=== PATIENT | male | born 1965 | race Caucasian/White ===

== ENCOUNTER → 2020-05-10 11:21 | Outpatient (BNVA) | payer MEDICARE, MEDICAID, SELFPAY | PROVIDERS: PCP Physician Assistant; Visit Provider Psychiatry & Neurology Neurology | DX: Z13.79 Encounter for other screening for genetic and chromosomal anomalies (principal) | CPT/HCPCS: Q3014 ==

== ENCOUNTER → 2020-06-07 09:45 | Outpatient (BNVA) | payer MEDICARE, MEDICAID, SELFPAY | PROVIDERS: PCP Physician Assistant; Visit Provider Psychiatry & Neurology Neurology | DX: Z76.89 Persons encountering health services in other specified circumstances (principal) | CPT/HCPCS: Q3014 ==

== ENCOUNTER → 2020-08-09 09:41 | Outpatient (BNVA) | payer MEDICARE, MEDICAID, SELFPAY | PROVIDERS: PCP Physician Assistant; Visit Provider Psychiatry & Neurology Neurology | DX: Z13.89 Encounter for screening for other disorder (principal) | CPT/HCPCS: Q3014 ==

== ENCOUNTER → 2020-09-13 08:41 | Outpatient (BNVA) | payer MEDICARE, MEDICAID, SELFPAY | PROVIDERS: PCP Physician Assistant; Visit Provider Psychiatry & Neurology Neurology | DX: Z13.89 Encounter for screening for other disorder (principal) | CPT/HCPCS: Q3014 ==

== ENCOUNTER 2023-12-20 19:27 | Inpatient (IN) | payer MEDICARE, MEDICAID, SELFPAY ==
--- NOTE | ~2023-12-20 | XR_ITS ---
EXAMINATION: XR CERVICAL SPINE CLINICAL INFORMATION: Radiculopathy COMPARISON: None available. TECHNIQUE: 6 views of the cervical spine FINDINGS: No acute visible fracture or dislocation. Straightening with slight reversal of the normal cervical curvature. Slight grade 1 anterolisthesis of C2 on C3. Multilevel neural foraminal narrowing. Visualized dens is intact. Lateral masses are symmetric. Multilevel degenerative changes with disc space narrowing, endplate sclerosis, anterior bridging osteophyte formation, and facet arthropathy. Vertebral body has this patient otherwise maintained. Prevertebral soft tissues are mildly prominent greatest at C5-C6, nonspecific. Posterior elements are intact. Paraspinal soft tissues are unremarkable. Visualized portions of the chest are unremarkable. XR/XR cervical spine 4V IMPRESSION: 1. No acute visible fracture or dislocation. 2. Straightening with slight reversal of the normal cervical curvature. 3. Slight grade 1 anterolisthesis of C2 on C3. 4. Multilevel degenerative changes with multilevel neural foraminal narrowing. 5. Prevertebral soft tissues are mildly prominent greatest at C5-C6, nonspecific. Electronically signed by: aKreem Douglas MD 12/26/2023 05:00 PM EDT
--- NOTE | ~2023-12-20 | XR_ITS ---
EXAMINATION: XR CHEST CLINICAL INFORMATION: Rule out CHF. COMPARISON: 01/06/2020 TECHNIQUE: Frontal view of the chest was obtained. FINDINGS: Prominence of the pulmonary vasculature and perihilar interstitium is noted, most consistent with pulmonary venous congestion. Cardiac silhouette is normal. No consolidation, pneumothorax, pleural effusion. Minimal spondylosis midthoracic spine. No acute osseous findings. XR/XR chest 1V IMPRESSION: Pulmonary venous congestion without appreciable pulmonary edema. Electronically signed by: Mynor Rivas MD 12/27/2023 04:52 PM EDT RP
--- NOTE | ~2023-12-20 | US_ITS ---
EXAMINATION: US TRIPLEX LOWER EXTREMITY, BILATERAL CLINICAL INFORMATION: Rule out DVT COMPARISON: None available. TECHNIQUE: Color-flow triplex imaging with spectral analysis and compression Doppler were performed on the bilateral lower extremities. FINDINGS: Respiratory variation, normal compression and augmented flow are noted throughout the bilateral lower extremities. The visualized common femoral vein, superficial femoral vein, profunda femoral vein, popliteal vein, and posterior tibial venous segments show no evidence of deep venous thrombosis bilaterally. Bilateral peroneal veins are not visualized. There is no Yip's cyst. US/US venous duplex LE BI IMPRESSION: No evidence of deep venous thrombosis involving the bilateral lower extremities. Electronically signed by: Lore Dubon MD 12/26/2023 10:08 PM EDT
--- NOTE | ~2023-12-20 | XR_ITS ---
EXAMINATION: XR ABDOMEN KUB CLINICAL INDICATION: Constipation with question of obstruction COMPARISON: None available. TECHNIQUE: AP view of the abdomen. FINDINGS: The bowel gas pattern is unremarkable with no evidence of ileus or obstruction. Mild to moderate stool present in the colon. There is air present in nondilated small bowel. No unusual soft tissue calcifications are noted. Degenerative changes are present throughout the spine and bilateral total hip prostheses are present.. XR/XR KUB IMPRESSION: No evidence of bowel obstruction. Mild to moderate stool present in the colon. Electronically signed by: Pablo Montelongo MD 12/24/2023 06:52 PM EDT
[2023-12-20 19:47] VITALS: BP 146/67; PULSE 82; RESP 18; TEMP 36.6; O2SAT 94; BMI 34.9
--- NOTE | 2023-12-20 20:01 | ED.GENADULT ---
HPI - General Adult General Chief complaint: Psychiatric Symptoms Stated complaint: crisis, SI Time Seen by Provider: 12/20/23 20:01 Source: patient Mode of arrival: ambulatory Limitations: no limitations History of Present Illness ED Provider: Melina Case PA-C HPI narrative: Patient is a 58 year old assigned male at with a history of MDD, COPD, opiate use, CHF, and GERD presenting to the emergency department today with suicidal ideation. Patient states that he has been having thoughts of hurting himself by jumping off of a bridge or overdosing. Patient denies any dizziness, lightheadedness, abdominal pain, nausea, vomiting, fever, chills, blurry vision, double vision, loss of vision, chest pain, difficulty breathing, shortness of breath, back pain, night sweats, pain with urination, increased urinary frequency, increased urinary urgency, blood in his urine or stool, syncope or a near syncopal episode, recent trauma or falls, bowel incontinence, bladder incontinence, or any other complaints at this time. Relieving factors: none Exacerbating factors: none Associated symptoms: denies other symptoms Treatments prior to arrival: none Related Data Home Medications ?Medication ?Instructions ?Recorded ?Confirmed miscellaneous medical supply #1 ea 01/14/20 06/07/20 triamcinolone acetonide 0.5 % 1 applic topical DAILY 01/14/20 06/07/20 topical cream Previous Rx's ?Medication ?Instructions ?Recorded polymyxin B sulfate 10,000 1 drp ophthalmic (eye) QID 10 days 05/12/20 unit-trimethoprim 1 mg/mL eye #10 mL drops (Polytrim) valacyclovir 1 gram tablet 1,000 mg PO BID 7 days #14 tabs 05/12/20 (Valtrex) baclofen 10 mg tablet 10 mg PO TID 30 days #90 tabs 12/29/20 clonidine HCl 0.1 mg tablet 0.1 mg PO BID 30 days #60 tabs 12/29/20 omeprazole 20 mg capsule,delayed 20 mg PO DAILY 30 days #30 caps 12/29/20 release albuterol sulfate 90 mcg/actuation 2 puff inhalation Q6H PRN Wheezing 03/06/22 aerosol inhaler (Ventolin HFA) 30 days #8.5 grams gabapentin 800 mg tablet 800 mg PO TID #90 tabs 11/12/23 Allergies Allergy/AdvReac Type Severity Reaction Status Date / Time oxycodone AdvReac Unknown GI upset Verified 12/20/23 19:48 Review of Systems Constitutional: Constitutional: Reports no additional constitutional complaints, Denies chills, Denies fever(s) and Denies night sweats Eyes: Eyes: Reports no additional eye complaints, Denies blurry vision, Denies change in vision, Denies diplopia, Denies eye discharge, Denies loss of vision and Denies eye pain ENT: Denies dizziness Cardiovascular: Cardiovascular: Reports no additional cardiovascular complaints, Denies chest pain, Denies lightheadedness, Denies Loss of Consciousness and Denies dyspnea Respiratory: Respiratory: Reports no additional respiratory complaints and Denies dyspnea Gastrointestinal: Gastrointestinal: Reports no additional gastrointestinal complaints, Denies abdominal pain, Denies melena, Denies hematochezia, Denies change in bowel habits and Denies change in stool character Genitourinary: Genitourinary: Reports no additional male genitourinary complaints, Denies hematuria, Denies oliguria, Denies difficulty urinating, Denies dysuria, Denies urinary frequency, Denies urinary hesitancy, Denies urinary incontinence and Denies urinary urgency Musculoskeletal: Musculoskeletal: Reports no additional musculoskeletal complaints, Denies numbness and Denies tingling Neurologic: Denies dizziness, Denies loss of vision, Denies numbness and Denies tingling Psychiatric: Psychiatric: Reports no additional psychiatric complaints, Denies homicidal ideation and Reports suicidal ideation Endocrine: Endocrine: Reports no additional endocrine complaints Hematologic/Lymphatic: Hematologic/Lymphatic: Reports no additional hematologic/lymphatic complaints Allergic/Immunologic: Allergic/Immunologic: Reports no additional allergic/immunologic complaints [facility] Past Medical History Attestation statement: The following information was validated with the patient. Source: old records reviewed and nursing notes reviewed Medical History Varicose veins of right lower extremity Peripheral vascular disease GERD (gastroesophageal reflux disease) History of pernicious anemia Hx of acute respiratory failure Edema Back pain Arthritis History of DVT of lower extremity Depression ANA treated with BiPAP Right-sided heart failure Surgical History History of incisional hernia repair Hx of esophagogastroduodenoscopy Hx of colonoscopy History of total right knee replacement S/P right knee arthroscopy Hx of tracheostomy Hx of total hip arthroplasty History of colostomy reversal History of colon resection H/O gastric bypass Family History Family History Father Displacement of central venous catheter (CVC) Mother Unknown family medical history Social History Social History Cigarette Packs Per Day: 1 Cigarettes Per Day: 20.0 Second Hand Smoke Exposure: No Advance Directives: No Advance Directives Information Provided: No Physical Exam ED Vital Signs: Vital Signs - 24 hr 12/20/23 19:47 Temperature 97.8 F Pulse Rate 82 Respiratory Rate 18 Blood Pressure 146/67 H Pulse Oximetry 94 Oxygen Delivery Method Room Air BMI result Body Mass Index 34.9 Const General: cooperative, no acute distress, alert and awake Nutritional Appearance: well nourished Orientation/consciousness: patient oriented x3 Limitations: no limitations HENMT Head: Yes normal to inspection and Yes atraumatic Ears: hearing grossly normal bilaterally and external ears normal General nose exam: Normal external nose present, no nasal discharge noted and no epistaxis Face and sinus: Yes normal facial exam, No abrasion and No laceration Mouth: Normal oral and palatal mucosa present, no drooling and no muffled voice Eyes General: appearance normal, both eyes and all related structures Periorbital: periorbital findings normal Eyelids: Yes eyelids normal Conjunctivae: conjunctivae normal Pupils: Equal, round and reactive pupils present EOM: EOMs intact bilaterally Neck Neck: Yes normal visual inspection, Yes full ROM and Yes no lymphadenopathy Chest Chest palpation & inspection: normal inspection of the chest Resp Effort & Inspection: normal respiratory effort and able to speak in complete sentences GI Inspection: Yes normal to inspection Neuro General: patient oriented x3 and moves all extremities Cranial nerves: Yes Equal, round and reactive pupils present Cognition (Neuro): normal cognition Extrem General: Yes normal to inspection, Yes full ROM and Yes capillary refill normal Psych Appearance: grossly normal Mental Status: mental status grossly normal Affect: Sad affect present Attitude: Guarded attititude/behavior present Thought content: Suicidality present Medical Decision Making Medical Decision Making MDM Narrative: Patient is a 58 year old assigned male at with a history of MDD, COPD, opiate use, CHF, and GERD presenting to the emergency department today with suicidal ideation. Patient's physical exam was as noted in the physical exam portion of this note. Patient's blood work was unremarkable. Patient's urine showed no acute process. Patient's disposition pending CARE team evaluation. Differential Diagnosis Differential Diagnoses: The differential diagnosis associated with the presentation includes Suicidal ideation Admission/Observation Consideration of admission/observation: Escalation of care including admission/observation considered Patient's disposition will be determined after CARE evaluation. Lab Data [facility] Lab Attestation statement: I reviewed the patient's lab results. My interpretation of these results are in the MDM Rationale portion of this note. 12/20/23 20:11 12/20/23 20:11 Labs: Lab Results 12/20/23 Range/Units 20:11 WBC 9.6 (4.8-10.8) X10*3/uL RBC 5.31 (4.60-5.80) X10*6/uL Hgb 11.3 L (14.0-18.0) g/dl Hct 36.1 L (42.0-52.0) % MCV 68.0 L (80.0-98.0) fL MCH 21.3 L (27.0-33.0) pg MCHC 31.3 (31.0-36.0) g/dl RDW 19.8 H (11.0-16.0) % Plt Count 291 (160-400) X10*3/uL MPV 10.0 (9.4-12.4) fL Immature Gran % (Auto) 0.2 (0.0-0.4) % Neut % (Auto) 77.8 H (45-73) % Lymph % (Auto) 14.0 L (20-40) % [place] % (Auto) 6.3 (2-11) % Eos % (Auto) 1.0 (0-4) % Baso % (Auto) 0.7 (0-2) % Lymph # (Auto) 1.3 (1.2-4.9) X10*3/uL [place] # (Auto) 0.6 (0.1-1.2) X10*3/uL Eos # (Auto) 0.1 (0.0-0.4) X10*3/uL Baso # (Auto) 0.1 (0.0-0.2) X10*3/uL Abs Immat Gran (auto) 0.02 (0.00-0.03) X10*3/uL Absolute Neuts (auto) 7.4 (2.0-8.3) x10*3/uL Absolute Nucleated RBC 0.000 (0.0-0.012) X10*3/uL Nucleated RBC % (auto) 0.0 (0.0-0.2) /100WBC Sodium 141 (135-145) mmol/L Potassium 3.8 (3.3-5.1) mmol/L Chloride 107 (96-108) mmol/L Carbon Dioxide 25 (22-29) mmol/L Anion Gap 13 (12-20) BUN 8 L (9-16) mg/dL Creatinine 0.90 (0.5-1.4) mg/dL Estim Creat Clear Calc 112.5 Estimated GFR > 60 Random Glucose 88 (60-115) mg/dL Calcium 9.5 (8.4-10.2) mg/dL Total Bilirubin 0.5 (0.0-1.0) mg/dL AST 20 (5-37) U/L ALT 13 (0-40) U/L Alkaline Phosphatase 78 (39-117) U/L Total Protein 7.4 (6.5-8.0) g/dL Albumin 4.3 (3.5-5.0) g/dL Urine Color Yellow Urine Appearance Clear Urine pH 6.0 (5.0-9.0) Ur Specific [place] 1.010 (1.005-1.025) Urine Protein 30 (1+) H (Neg-Trace) mg/dL Urine Glucose (UA) Negative (Negative) mg/dL Urine Ketones Negative (Negative) mg/dL Urine Blood Negative (Negative) Urine Nitrite Negative (Negative) Ur Leukocyte Esterase Trace H (Negative) Urine RBC 0-2 (0-2) /HPF Urine WBC 0-5 (0-5) /HPF Ur Squamous Epith Cells 0-2 (0-2) /HPF Urine Bacteria None Seen (None Seen) Hyaline Casts 3-5 (0-2) /LPF Urine Opiates Screen Not Detected (Not Detect) Ur Buprenorphine Scrn Not Detected (Not Detect) ng/mL Ur Oxycodone Screen Not Detected (Not Detect) ng/mL Urine Methadone Screen Not Detected (Not Detect) ng/mL Urine Fentanyl Screen Not Detected (Not Detect) Ur Barbiturates Screen Not Detected (Not Detect) Ur Phencyclidine Scrn Not Detected (Not Detect) Ur Amphetamines Screen Not Detected (Not Detect) U Benzodiazepines Scrn Not Detected (Not Detect) Urine Cocaine Screen POSITIVE H (Not Detect) U Marijuana (THC) Screen Not Detected (Not Detect) Ethyl Alcohol < 10 mg/dL Discharge Plan Discharge Clinical Impression: Suicidal ideation Patient Disposition: Still a Patient Prescriptions: No Action omeprazole 20 mg capsule,delayed release(DR/EC) 20 mg PO DAILY 30 Days Qty: 30 3RF clonidine HCl 0.1 mg tablet 0.1 mg PO BID 30 Days Qty: 60 3RF baclofen 10 mg tablet 10 mg PO TID 30 Days Qty: 90 3RF albuterol sulfate [Ventolin HFA] 90 mcg/actuation HFA aerosol inhaler 2 puff inhalation Q6H PRN (Reason: Wheezing) 30 Days Qty: 8.5 6RF gabapentin 800 mg tablet 800 mg PO TID Qty: 90 3RF triamcinolone acetonide 0.5 % cream 1 applic topical DAILY (DME) miscellaneous medical supply Misc See Rx Instructions .ROUTE .MEDSUPPLY Qty: 1 Rx Instructions: As directed valacyclovir [Valtrex] 1 gram tablet 1,000 mg PO BID 7 Days Qty: 14 0RF polymyxin B sulf-trimethoprim [Polytrim] 10,000 unit- 1 mg/mL drops 1 drp ophthalmic (eye) QID 10 Days Qty: 10 0RF Rx Instructions: while awake; do not exceed 6 doses in 24 hours Print Language: Danish
[2023-12-20 20:21] LABS: MANUAL DIFF FLAG NO
[2023-12-20 20:22] LABS: Basophils Absolute Auto 0.1 X10*3/uL (0.0-0.2); Basophils Percent Auto 0.7 % (0-2); Eosinophils Absolute Auto 0.1 X10*3/uL (0.0-0.4); Hematocrit 36.1 % (42.0-52.0); Hemoglobin 11.3 g/dl (14.0-18.0); Imm Gran Abs Auto 0.02 X10*3/uL (0.00-0.03); Imm Gran Pct Auto 0.2 % (0.0-0.4); Lymphocytes Absolute Auto 1.3 X10*3/uL (1.2-4.9); Mean Corpuscular HGB Conc 31.3 g/dl (31.0-36.0); Mean Corpuscular Hemoglobin 21.3 pg (27.0-33.0); Monocytes Absolute Auto 0.6 X10*3/uL (0.1-1.2); Monocytes Percent Auto 6.3 % (2-11); Neutrophils Absolute Auto 7.4 x10*3/uL (2.0-8.3); Neutrophils Percent Auto 77.8 % (45-73); Platelet Count 291 X10*3/uL (160-400); Red Blood Count 5.31 X10*6/uL (4.60-5.80); Red Cell Distribution Width 19.8 % (11.0-16.0); White Blood Count 9.6 X10*3/uL (4.8-10.8)
[2023-12-20 20:23] LABS: Appearance Urine Clear; Color Urine Yellow; Glucose Urine UA Negative (Negative); Leukocyte Esterase Urine Trace (Negative); Nitrite Urine Negative (Negative); UMIC TRIGGER UA YES; Urine Blood Negative (Negative); Urine Ketones Negative (Negative); Urine Protein 30 (1+) mg/dL (Neg-Trace)
[2023-12-20 20:29] LABS: Bacteria Urine None Seen (None Seen); RBC Urine 0-2 /HPF (0-2); Squamous Epithelial Cell Urine 0-2 /HPF (0-2); WBC Urine 0-5 /HPF (0-5)
[2023-12-20 20:36] LABS: Amphetamine Screen Urine Not Detected (Not Detect); Barbiturates, Urine Not Detected (Not Detect); Benzodiazepines Screen Urine Not Detected (Not Detect); Buprenorphine Scr Not Detected (Not Detect); Cannabinoid Screen Urine Not Detected (Not Detect); Cocaine Screen Urine POSITIVE (Not Detect); Fentanyl, urine Not Detected (Not Detect); Methadone Screen, Urine Not Detected (Not Detect); Opiate Screen Urine Not Detected (Not Detect); Oxycodone Screen Urine Not Detected (Not Detect); Phencyclidine Screen Urine Not Detected (Not Detect)
[2023-12-20 20:38] LABS: Alanine Aminotransferase 13 U/L (0-40); Albumin Level 4.3 g/dL (3.5-5.0); Alkaline Phosphatase 78 U/L (39-117); Anion Gap 13 (12-20); Aspartate Amino Transferase 20 U/L (5-37); Bilirubin Total 0.5 mg/dL (0.0-1.0); Blood Urea Nitrogen 8 mg/dL (9-16); Calcium 9.5 mg/dL (8.4-10.2); Carbon Dioxide 25 mmol/L (22-29); Chloride 107 mmol/L (96-108); Creatinine Clr Calc Pharmacy 112.5; Estimated Glomerular Filt Rate > 60; Ethanol < 10 mg/dL; Glucose Random 88 mg/dL (60-115); Potassium 3.8 mmol/L (3.3-5.1); Sodium 141 mmol/L (135-145); Total Protein 7.4 g/dL (6.5-8.0)
--- NOTE | 2023-12-20 21:48 | MHC.EDTECH ---
PT HAS 5 BAGS OF BELONGINGS IN POD LAUNDRY CLOSET. INCLUDING 2 SHOPPING BAGS, 2 PATIENT BELONGING BAGS, 1 LARGE CAMO SUITCASE.
[2023-12-20 23:45] VITALS: BP 130/73; PULSE 69; RESP 16; TEMP 36.4; O2SAT 98
[2023-12-21 00:56] VITALS: BMI 33.8
--- NOTE | 2023-12-21 04:09 | PC.ADMIT ---
Pt is a 58yo male, admitted from ED, [facility] on a CV for treatment of SI, MDD. He presented to ER with SI having a plan to jump off a bridge and command auditory hallucinations telling him to harm himself. Pt stated I am sick of life and sick of living the way I am . He stated that he is using substances to cope with his mental health and getting kicked out of the place they were crashing just put him over the edge. He reported being homeless since the end of October and being on the street increased command AH. On unit admission, Pt was calm and cooperative, mood is depressed and affect is flat. He denies SI/HI/AV/VH, states that I just want to get help and then get into a substance program. Pt has medical HX of COPD, CHF and GERD. Urine TOX is positive to cocaine. He filled/signed some releases of information forms, menu, statement of understanding regarding valuables but did not fill my contact lists. Treatment plan and safety tools initiated but not signed. Pt is on CIWA Q4 for alcohol withdrawal risk and 5 minutes safety check/observation.
[2023-12-21 07:35] VITALS: BP 135/63; PULSE 58; RESP 14; TEMP 36.8; O2SAT 95
[2023-12-21 08:02] LABS: Alanine Aminotransferase 13 U/L (0-40); Albumin Level 3.4 g/dL (3.5-5.0); Alkaline Phosphatase 67 U/L (39-117); Anion Gap 11 (12-20); Aspartate Amino Transferase 20 U/L (5-37); Bilirubin Total 0.3 mg/dL (0.0-1.0); Blood Urea Nitrogen 10 mg/dL (9-16); Calcium 8.8 mg/dL (8.4-10.2); Carbon Dioxide 24 mmol/L (22-29); Chloride 109 mmol/L (96-108); Cholesterol 103 mg/dL (<200); Creatinine Clr Calc Pharmacy 134.9; Estimated Glomerular Filt Rate > 60; Glucose Fasting 89 mg/dL (60-99); HDL Cholesterol 39 mg/dL (>40); LDL Cholesterol Calculated 54 mg/dL (<100); Potassium 4.1 mmol/L (3.3-5.1); Sodium 140 mmol/L (135-145); Triglycerides 52 mg/dL (<150)
--- NOTE | 2023-12-21 08:06 | P.HPPS_ITS ---
HPI Date of Service: 12/21/23 Chief Complaint: SI Sources of Information: patient interviewed, chart reviewed and crisis/core team assessment reviewed HPI Subjective Notes: Conditional Voluntary Healthcare Proxy: No Guardianship: No Medical Problems Affecting Mental Status: No Narrative: met patient. Discussed nursing. Has been in room, largely isolative. Patient reports being depressed, suicidal and voices. Sleep energy appetite disturbed. non command voices. Having thoughts of jumping bridge. Recently relapsed cocaine. Has been housed [facility] since October. Reports being very motivated substance rehab services. It also been drinking 2 to 6 beers a day inpatient. Longest sobriety 1 year 4 years ago reports this also in the context substance rehab supports reports his main support is his girlfriend of a few months, who also is struggling with substance use disorder also seeking mental health substance rehab services. Past Psychiatric History: Does not have psychiatric services. Last attended [facility] 04/03/2023. Last inpatient episode June of this year with similar circumstances. Reports not psychotic hallucinating is recently substances. History of suicidal ideation. No history of suicide attempts. Can not remember Medications from the past. Medical Evaluation Reviewed: Yes [facility] Medical History Varicose veins of right lower extremity Peripheral vascular disease GERD (gastroesophageal reflux disease) History of pernicious anemia Hx of acute respiratory failure Edema Back pain Arthritis History of DVT of lower extremity Depression ANA treated with BiPAP Right-sided heart failure Surgical History History of incisional hernia repair Hx of esophagogastroduodenoscopy Hx of colonoscopy History of total right knee replacement S/P right knee arthroscopy Hx of tracheostomy Hx of total hip arthroplasty History of colostomy reversal History of colon resection H/O gastric bypass Social History: unhoused Since. Girlfriend of a few months. Also struggling with substance use disorder seeking treatment. No children. No legal issues. high School grad. 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 Cocaine use- sniffs or smokes. Longest sobriety was 1 year years ago when he had rehab services supports Diagnostics Vital Signs (24Hr): Vital Signs - 24 hr 12/20/23 19:47 12/20/23 23:45 Temperature 97.8 F 97.6 F Pulse Rate 82 69 Respiratory Rate 18 16 Blood Pressure 146/67 H 130/73 Pulse Oximetry 94 98 Oxygen Delivery Method Room Air Room Air BMI result Body Mass Index 33.8 Labs 12/20/23 20:11 12/21/23 07:37 Labs: Laboratory Results - last 48 hr 12/20/23 12/21/23 20:11 07:37 WBC 9.6 RBC 5.31 Hgb 11.3 L Hct 36.1 L MCV 68.0 L MCH 21.3 L MCHC 31.3 RDW 19.8 H Plt Count 291 MPV 10.0 Immature Gran % (Auto) 0.2 Neut % (Auto) 77.8 H Lymph % (Auto) 14.0 L [place] % (Auto) 6.3 Eos % (Auto) 1.0 Baso % (Auto) 0.7 Lymph # (Auto) 1.3 [place] # (Auto) 0.6 Eos # (Auto) 0.1 Baso # (Auto) 0.1 Abs Immat Gran (auto) 0.02 Absolute Neuts (auto) 7.4 Absolute Nucleated RBC 0.000 Nucleated RBC % (auto) 0.0 Sodium 141 140 Potassium 3.8 4.1 Chloride 107 109 H Carbon Dioxide 25 24 Anion Gap 13 11 L BUN 8 L 10 Creatinine 0.90 0.74 Estim Creat Clear Calc 112.5 134.9 Estimated GFR > 60 > 60 Random Glucose 88 Fasting Glucose 89 Calcium 9.5 8.8 D Total Bilirubin 0.5 0.3 AST 20 20 ALT 13 13 Alkaline Phosphatase 78 67 Total Protein 7.4 6.0 L Albumin 4.3 3.4 L Triglycerides 52 Cholesterol 103 LDL Cholesterol, Calc 54 HDL Cholesterol 39 L Urine Color Yellow Urine Appearance Clear Urine pH 6.0 Ur Specific [place] 1.010 Urine Protein 30 (1+) H Urine Glucose (UA) Negative Urine Ketones Negative Urine Blood Negative Urine Nitrite Negative Ur Leukocyte Esterase Trace H Urine RBC 0-2 Urine WBC 0-5 Ur Squamous Epith Cells 0-2 Urine Bacteria None Seen Hyaline Casts 3-5 Urine Opiates Screen Not Detected Ur Buprenorphine Scrn Not Detected Ur Oxycodone Screen Not Detected Urine Methadone Screen Not Detected Urine Fentanyl Screen Not Detected Ur Barbiturates Screen Not Detected Ur Phencyclidine Scrn Not Detected Ur Amphetamines Screen Not Detected U Benzodiazepines Scrn Not Detected Urine Cocaine Screen POSITIVE H U Marijuana (THC) Screen Not Detected Ethyl Alcohol < 10 Meds/Allergies Meds Home Medications ?Medication ?Instructions ?Recorded ?Confirmed ?Type miscellaneous medical supply #1 ea 01/14/20 06/07/20 History Allergies Allergies Allergy/AdvReac Type Severity Reaction Status Date / Time oxycodone AdvReac Unknown GI upset Verified 12/20/23 19:48 Mental Status Exam Mental Status Exam Narrative: pleasant. Age. Hospital clothing. Her self-care. Organized. Depressed. Endorses no plans or intent. No current hallucinations no paranoia. Feels safe. No HI. Insight judgment fair Assessment & Plan Assessment & Plan (1) MDD (major depressive disorder): Status: Acute Qualifiers: Major depression recurrence: single episode Active/Remission status: c urrently active Major depression episode severity: moderate Qualified Code(s): F32.1 - Major depressive disorder, single episode, moderate Code(s): F32.9 - Major depressive disorder, single episode, unspecified (2) Polysubstance use disorder: Status: Acute Code(s): F19.90 - Other psychoactive substance use, unspecified, uncomplicated Plan Presents with MDD amd polysubstance use disorder- alcohol and cocaine in context of unhoused, no services. Wants to start meds and substance rehab services. No indication for antipsychotics as hallucinations less intense/resolved and are substance related, so resolving. Will start zoloft and trazodone and CIWA Patient educated on: diagnosis, medication risk/benefits and substance abuse Informed Consent: understands Reason for continued inpatient stay Substantial Risk for: harm to self Statement Statement: I have reviewed the history and physical and performed a pertinent examination on my patient. No changes have occurred unless specified. If the History and Physical was not performed prior to admission, the Hospitalist's service will be consulted for completing the admission physical. Time Spent With Patient Time: Total time managing care of this patient today ____ minutes.
[2023-12-21] MEDS: Gabapentin 400 MG CAPSULE 800 MG PO ×3 (09:45→20:04)
[2023-12-21] MEDS: Acetaminophen 325 MG TABLET 650 MG PO (09:55)
[2023-12-21] MEDS: hydrOXYzine HCL 25 MG TABLET PO (09:55)
[2023-12-21] MEDS: Flu Vacc TS2024-25(6mos up)/PF 0.5 ML SYRINGE IM (10:38)
[2023-12-21] MEDS: Sertraline HCL 50 MG TABLET PO (14:18)
[2023-12-21 20:00] VITALS: BP 125/60; PULSE 80; RESP 18; TEMP 36.4; O2SAT 94
[2023-12-21] MEDS: traZODone HCL 50 MG TABLET PO (20:04)
[2023-12-22 08:00] VITALS: BP 114/57; PULSE 57; RESP 18; TEMP 36.4; O2SAT 94
--- NOTE | 2023-12-22 08:10 | HO.PSYCHPN ---
Subjective Subjective Date of Service: 12/22/23 Reason For Visit: SI Medical Problems Affecting Mental Status: No Interim History: met with patient. Discussed with nursing. Overall reports mood is better. Sleep difficult in the context of environment at bed. Denies hallucinations or suicidal thoughts today. We did discuss simethicone in the context of patient's roommate making patient aware. Medication Compliance: Yes Side effects from medications: No Attending Groups: Intermittent Review of Systems Acute medical concerns: No Review of Systems Review of Systems Yes all other systems are reviewed and are negative Mental Status Exam Mental Status Exam Narrative: pleasant. Age. Hospital clothing. Fair self-care. Organized. less depressed. denies SI. No current hallucinations no paranoia. Feels safe. No HI. Insight judgment fair Diagnostics Vital Signs (24Hr): Vital Signs - 24 hr 12/21/23 20:00 Temperature 97.5 F Pulse Rate 80 Respiratory Rate 18 Blood Pressure 125/60 Pulse Oximetry 94 Oxygen Delivery Method Room Air BMI result Body Mass Index 33.8 Labs 12/20/23 20:11 12/21/23 07:37 Labs: Laboratory Results - last 48 hr 12/20/23 12/21/23 20:11 07:37 WBC 9.6 RBC 5.31 Hgb 11.3 L Hct 36.1 L MCV 68.0 L MCH 21.3 L MCHC 31.3 RDW 19.8 H Plt Count 291 MPV 10.0 Immature Gran % (Auto) 0.2 Neut % (Auto) 77.8 H Lymph % (Auto) 14.0 L [place] % (Auto) 6.3 Eos % (Auto) 1.0 Baso % (Auto) 0.7 Lymph # (Auto) 1.3 [place] # (Auto) 0.6 Eos # (Auto) 0.1 Baso # (Auto) 0.1 Abs Immat Gran (auto) 0.02 Absolute Neuts (auto) 7.4 Absolute Nucleated RBC 0.000 Nucleated RBC % (auto) 0.0 Sodium 141 140 Potassium 3.8 4.1 Chloride 107 109 H Carbon Dioxide 25 24 Anion Gap 13 11 L BUN 8 L 10 Creatinine 0.90 0.74 Estim Creat Clear Calc 112.5 134.9 Estimated GFR > 60 > 60 Random Glucose 88 Fasting Glucose 89 Calcium 9.5 8.8 D Total Bilirubin 0.5 0.3 AST 20 20 ALT 13 13 Alkaline Phosphatase 78 67 Total Protein 7.4 6.0 L Albumin 4.3 3.4 L Triglycerides 52 Cholesterol 103 LDL Cholesterol, Calc 54 HDL Cholesterol 39 L Urine Color Yellow Urine Appearance Clear Urine pH 6.0 Ur Specific Edgar 1.010 Urine Protein 30 (1+) H Urine Glucose (UA) Negative Urine Ketones Negative Urine Blood Negative Urine Nitrite Negative Ur Leukocyte Esterase Trace H Urine RBC 0-2 Urine WBC 0-5 Ur Squamous Epith Cells 0-2 Urine Bacteria None Seen Hyaline Casts 3-5 Urine Opiates Screen Not Detected Ur Buprenorphine Scrn Not Detected Ur Oxycodone Screen Not Detected Urine Methadone Screen Not Detected Urine Fentanyl Screen Not Detected Ur Barbiturates Screen Not Detected Ur Phencyclidine Scrn Not Detected Ur Amphetamines Screen Not Detected U Benzodiazepines Scrn Not Detected Urine Cocaine Screen POSITIVE H U Marijuana (THC) Screen Not Detected Ethyl Alcohol < 10 Medications Medications Current Medications Al Hydroxide/Mg Hydroxide (Magnesium Hydrox/Alum Hydrox 30 Ml Oral.Susp) 30 ml PO Q6H PRN PRN Reason: Heartburn/Nausea Gabapentin (Gabapentin 400 Mg Capsule) 800 mg PO TID [facility] Last Admin: 12/21/23 20:04 Dose: 800 mg Hydroxyzine HCl (Hydroxyzine Hcl 25 Mg Tablet) 25 mg PO Q6H PRN PRN Reason: Anxiety Last Admin: 12/21/23 09:55 Dose: 25 mg Ibuprofen (Ibuprofen 600 Mg Tablet) 600 mg PO Q6H PRN PRN Reason: mild to moderate pain Lorazepam (Lorazepam 0.5 Mg Tablet) 0.5 mg PO Q6H PRN PRN Reason: Alcohol Withdrawal Lorazepam (Lorazepam 1 Mg Tablet) 1 mg PO Q6H PRN PRN Reason: Alcohol Withdrawal Lorazepam (Lorazepam 1 Mg Tablet) 2 mg PO Q6H PRN PRN Reason: Alcohol Withdrawal Magnesium Hydroxide (Milk Of Magnesia 30 Ml Oral.Susp) 30 ml PO DAILY PRN PRN Reason: Constipation Nicotine Polacrilex (Nicotine Polacrilex 2 Mg Gum) 4 mg BUCCAL Q2H PRN PRN Reason: Nicotine Cravings Sertraline HCl (Sertraline Hcl 50 Mg Tablet) 50 mg PO DAILY [facility] Last Admin: 12/21/23 14:18 Dose: 50 mg Trazodone HCl (Trazodone Hcl 50 Mg Tablet) 50 mg PO BEDTIME MRX1 PRN PRN Reason: Insomnia Trazodone HCl (Trazodone Hcl 50 Mg Tablet) 50 mg PO BEDTIME [facility] Last Admin: 12/21/23 20:04 Dose: 50 mg Allergies Allergies Allergy/AdvReac Type Severity Reaction Status Date / Time oxycodone AdvReac Unknown GI upset Verified 12/20/23 19:48 Assessment & Plan Assessment & Plan (1) MDD (major depressive disorder): Qualifiers: Active/Remission status: currently active Major depression episode severity: moderate Major depression recurrence: single episode Qualified Code(s): F32.1 - Major depressive disorder, single episode, moderate Status: Acute Code(s): F32.9 - Major depressive disorder, single episode, unspecified (2) Polysubstance use disorder: Status: Acute Code(s): F19.90 - Other psychoactive substance use, unspecified, uncomplicated Plan Presents with MDD amd polysubstance use disorder- alcohol and cocaine in context of unhoused, no services. Wants to start meds and substance rehab services. No indication for antipsychotics as hallucinations less intense/resolved and are substance related, so resolving. Will start zoloft and trazodone and CIWA 12/22/2023: Overall no changes. Reason for continued inpatient stay Substantial Risk for: harm to self Time Spent With Patient Time: Total time managing care of this patient today ____ minutes.
[2023-12-22] MEDS: Gabapentin 400 MG CAPSULE 800 MG PO ×3 (09:03→20:41)
[2023-12-22] MEDS: Ibuprofen 600 MG TABLET PO (09:04)
[2023-12-22] MEDS: Sertraline HCL 50 MG TABLET PO (09:04)
[2023-12-22] MEDS: Simethicone 80 MG TAB.CHEW PO ×3 (11:36→20:41)
[2023-12-22] MEDS: Lidocaine 4 % Patch ADH..PATCH 1 PATCH TRANSDERMA (13:18)
[2023-12-22] MEDS: Ibuprofen 800 MG TABLET PO (15:37)
[2023-12-22 20:00] VITALS: BP 129/57; PULSE 70; TEMP 36.4; O2SAT 96
[2023-12-22] MEDS: traZODone HCL 50 MG TABLET PO ×2 (20:42→23:42)
[2023-12-22] MEDS: hydrOXYzine HCL 25 MG TABLET PO (20:53)
[2023-12-23 07:50] VITALS: BP 133/70; PULSE 54; RESP 12; TEMP 36.6; O2SAT 92
[2023-12-23] MEDS: Sertraline HCL 50 MG TABLET PO (08:45)
[2023-12-23] MEDS: Simethicone 80 MG TAB.CHEW PO ×4 (08:45→20:05)
[2023-12-23] MEDS: Gabapentin 400 MG CAPSULE 800 MG PO ×3 (08:45→20:07)
--- NOTE | 2023-12-23 10:27 | P.PNPSI_ITS ---
Subjective Subjective Date of Service: 12/23/23 Reason For Visit: SI Subjective Notes: Conditional Voluntary Interim History: Pt slept about 6hrs with some difficulty falling asleep and needing additional trazodone. Pt reports feeling better in terms of mood. He reports being concern about recently losing housing. He reports GF also struggling with addiction and she is currently on the 5th floor psych unit. He reports he hopes to go to same [facility] program with GF. 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 chronic microcytic anemia- will check iron profile. He denies VH/AH. Passive SI, no plan or intent. Diagnostics Vital Signs (24Hr): Vital Signs - 24 hr 12/22/23 20:00 12/23/23 07:50 Temperature 97.5 F 97.9 F Pulse Rate 70 54 Respiratory Rate 12 Blood Pressure 129/57 L 133/70 Pulse Oximetry 96 92 Oxygen Delivery Method Room Air Room Air BMI result Body Mass Index 33.8 Labs 12/20/23 20:11 12/21/23 07:37 Medications Medications Current Medications Al Hydroxide/Mg Hydroxide (Magnesium Hydrox/Alum Hydrox 30 Ml Oral.Susp) 30 ml PO Q6H PRN PRN Reason: Heartburn/Nausea Gabapentin (Gabapentin 400 Mg Capsule) 800 mg PO TID [facility] Last Admin: 12/23/23 08:45 Dose: 800 mg Hydroxyzine HCl (Hydroxyzine Hcl 25 Mg Tablet) 25 mg PO Q6H PRN PRN Reason: Anxiety Last Admin: 12/22/23 20:53 Dose: 25 mg Ibuprofen (Ibuprofen 800 Mg Tablet) 800 mg PO Q8H PRN PRN Reason: mild to moderate pain (1-6) Last Admin: 12/22/23 15:37 Dose: 800 mg Lidocaine (Lidocaine 4 % Patch Adh..Patch) 1 patch TRANSDERMA DAILY [facility]; Protocol Last Admin: 12/23/23 08:52 Dose: Not Given Lorazepam (Lorazepam 0.5 Mg Tablet) 0.5 mg PO Q6H PRN PRN Reason: Alcohol Withdrawal Lorazepam (Lorazepam 1 Mg Tablet) 1 mg PO Q6H PRN PRN Reason: Alcohol Withdrawal Lorazepam (Lorazepam 1 Mg Tablet) 2 mg PO Q6H PRN PRN Reason: Alcohol Withdrawal Magnesium Hydroxide (Milk Of Magnesia 30 Ml Oral.Susp) 30 ml PO DAILY PRN PRN Reason: Constipation Nicotine Polacrilex (Nicotine Polacrilex 2 Mg Gum) 4 mg BUCCAL Q2H PRN PRN Reason: Nicotine Cravings Sertraline HCl (Sertraline Hcl 50 Mg Tablet) 50 mg PO DAILY [facility] Last Admin: 12/23/23 08:45 Dose: 50 mg Simethicone (Simethicone 80 Mg Tab.Chew) 80 mg PO QIDWMHS [facility] Last Admin: 12/23/23 08:45 Dose: 80 mg Trazodone HCl (Trazodone Hcl 50 Mg Tablet) 50 mg PO BEDTIME MRX1 PRN PRN Reason: Insomnia Last Admin: 12/22/23 23:42 Dose: 50 mg Trazodone HCl (Trazodone Hcl 50 Mg Tablet) 50 mg PO BEDTIME [facility] Last Admin: 12/22/23 20:42 Dose: 50 mg Allergies Allergies Allergy/AdvReac Type Severity Reaction Status Date / Time oxycodone AdvReac Unknown GI upset Verified 12/20/23 19:48 Assessment & Plan Assessment & Plan (1) MDD (major depressive disorder): Qualifiers: Active/Remission status: currently active Major depression episode severity: moderate Major depression recurrence: single episode Qualified Code(s): F32.1 - Major depressive disorder, single episode, moderate Status: Acute Code(s): F32.9 - Major depressive disorder, single episode, unspecified (2) Polysubstance use disorder: Status: Acute Code(s): F19.90 - Other psychoactive substance use, unspecified, uncomplicated Plan Presents with MDD amd polysubstance use disorder- alcohol and cocaine in context of unhoused, no services. Wants to start meds and substance rehab services. No indication for antipsychotics as hallucinations less intense/resolved and are substance related, so resolving. Will start zoloft and trazodone and CIWA 12/22/2023: Overall no changes. 12/22- baclofen for cocaine cravings and muscle aches. increase trazodone 100mg po qhs. Reason for continued inpatient stay Substantial Risk for: inability to function Time Spent With Patient Time: Total time managing care of this patient today ____ minutes.
[2023-12-23] MEDS: hydrOXYzine HCL 25 MG TABLET PO (10:37)
[2023-12-23] MEDS: Lidocaine 4 % Patch ADH..PATCH 1 PATCH TRANSDERMA (10:38)
[2023-12-23] MEDS: Ibuprofen 800 MG TABLET PO (11:27)
[2023-12-23 13:20] LABS: Iron 19 mcg/dL (45-160); Percent Iron Saturation 6 % (15-50); Total Iron Binding Capacity 315 mcg/dL (228-428); Unsaturated Iron Binding 296 ug/dL
[2023-12-23] MEDS: Baclofen 10 MG TABLET PO ×2 (13:30→20:05)
[2023-12-23] MEDS: Acetaminophen 325 MG TABLET 975 MG PO ×2 (14:20→20:06)
--- NOTE | 2023-12-23 16:04 | MHC.RECOVRN ---
AUDIT-C Brief Intervention Pt had positive screen for unhealthy alcohol use on admission, subsequently met with t/w to discuss alcohol use and recovery supports/options. Pt voices concern regarding alcohol use and is aware that drinking at unhealthy levels is known to increase risk of alcohol related health problems. Pt reports a couple nips or a few 24 ounce beers daily. Pt also reports cocaine use, INH, $20-$200 daily. Pt reports hx heroin/fentanyl use, last in June. Pt had been prescribed Suboxone in the past, is interested in restarting for cravings. Pt expresses how alcohol use has impacted health, including negative impact on overall physical wellbeing and mental health. Discussed risk reduction strategies including drinking below the recommended limit. Provided pt with written resources including information on inpatient and outpatient treatment, NELLY, harm reduction, and recovery coaching. Pt reports biggest concern currently is cocaine use, is also interested in medications to help with cravings for stimulants. Pt plans to continue on with AMAURY treatment and is hopeful to be placed in [facility]. Pt provided with t/w contact information if questions or concerns arise. Denies other questions or concerns at this time. Discussed with Donna Quintanilla APRN.
[2023-12-23] MEDS: Capsaicin 0.025% Cream 60 GM TUBE 1 APPL TOPICAL (18:54)
[2023-12-23 19:17] VITALS: BP 115/63; PULSE 66; TEMP 36.6; O2SAT 94
[2023-12-23] MEDS: traZODone HCL 100 MG TABLET PO (20:06)
[2023-12-24] MEDS: traZODone HCL 50 MG TABLET PO ×2 (00:35→23:39)
--- NOTE | 2023-12-24 09:11 | P.PNPSI_ITS ---
Subjective Subjective Date of Service: 12/24/23 Reason For Visit: SI Subjective Notes: Conditional Voluntary Interim History: Pt had difficulty sleeping through the night. He reports feeling very anxious. We discussed adding seroquel prn for anxiety. No benzo due to risk of misuse or abuse as he continues working on his recovery. He reports constipation, passing gas, no abdominal pain. will do KUB, r/o complications but less likely given that he is passing gas. Diagnostics Vital Signs (24Hr): Vital Signs - 24 hr 12/23/23 19:17 Temperature 97.8 F Pulse Rate 66 Blood Pressure 115/63 Pulse Oximetry 94 Oxygen Delivery Method Room Air BMI result Body Mass Index 33.8 Labs 12/20/23 20:11 12/21/23 07:37 Labs: Laboratory Results - last 48 hr 12/23/23 12:44 Iron 19 L TIBC 315 % Saturation 6 L Unsat Iron Binding 296 Medications Medications Current Medications Acetaminophen (Acetaminophen 325 Mg Tablet) 975 mg PO TID [facility] Last Admin: 12/23/23 20:06 Dose: 975 mg Al Hydroxide/Mg Hydroxide (Magnesium Hydrox/Alum Hydrox 30 Ml Oral.Susp) 30 ml PO Q6H PRN PRN Reason: Heartburn/Nausea Ascorbic Acid (Ascorbic Acid 250 Mg Tablet) 250 mg PO DAILY [facility] Baclofen (Baclofen 10 Mg Tablet) 10 mg PO TID [facility] Last Admin: 12/23/23 20:05 Dose: 10 mg Capsaicin (Capsaicin 0.025% Cream 60 Gm Tube) 1 appl TOPICAL TID PRN; Protocol PRN Reason: Pain, Moderate(Pain Scale 4-6) Last Admin: 12/23/23 18:54 Dose: 1 appl Ferrous Sulfate (Ferrous Sulfate 300 Mg/5 Ml Liquid) 300 mg PO DAILY [facility] Gabapentin (Gabapentin 400 Mg Capsule) 800 mg PO TID [facility] Last Admin: 12/23/23 20:07 Dose: 800 mg Hydroxyzine HCl (Hydroxyzine Hcl 25 Mg Tablet) 25 mg PO Q6H PRN PRN Reason: Anxiety Last Admin: 12/23/23 10:37 Dose: 25 mg Ibuprofen (Ibuprofen 800 Mg Tablet) 800 mg PO Q8H PRN PRN Reason: mild to moderate pain (1-6) Last Admin: 12/23/23 11:27 Dose: 800 mg Lactase (Lactase Tablet) 1 tab PO TIDWM PRN PRN Reason: Lactose Intolerance Lidocaine (Lidocaine 4 % Patch Adh..Patch) 1 patch TRANSDERMA DAILY [facility]; Protocol Last Admin: 12/23/23 10:38 Dose: 1 patch Magnesium Hydroxide (Milk Of Magnesia 30 Ml Oral.Susp) 30 ml PO DAILY PRN PRN Reason: Constipation Nicotine Polacrilex (Nicotine Polacrilex 2 Mg Gum) 4 mg BUCCAL Q2H PRN PRN Reason: Nicotine Cravings Sertraline HCl (Sertraline Hcl 50 Mg Tablet) 50 mg PO DAILY [facility] Last Admin: 12/23/23 08:45 Dose: 50 mg Simethicone (Simethicone 80 Mg Tab.Chew) 80 mg PO QIDWMHS [facility] Last Admin: 12/23/23 20:05 Dose: 80 mg Trazodone HCl (Trazodone Hcl 50 Mg Tablet) 50 mg PO BEDTIME MRX1 PRN PRN Reason: Insomnia Last Admin: 12/24/23 00:35 Dose: 50 mg Trazodone HCl (Trazodone Hcl 100 Mg Tablet) 100 mg PO BEDTIME [facility] Last Admin: 12/23/23 20:06 Dose: 100 mg Allergies Allergies Allergy/AdvReac Type Severity Reaction Status Date / Time oxycodone AdvReac Unknown GI upset Verified 12/20/23 19:48 Assessment & Plan Assessment & Plan (1) MDD (major depressive disorder): Qualifiers: Active/Remission status: currently active Major depression episode severity: moderate Major depression recurrence: single episode Qualified Code(s): F32.1 - Major depressive disorder, single episode, moderate Status: Acute Code(s): F32.9 - Major depressive disorder, single episode, unspecified (2) Polysubstance use disorder: Status: Acute Code(s): F19.90 - Other psychoactive substance use, unspecified, uncomplicated Plan Presents with MDD amd polysubstance use disorder- alcohol and cocaine in context of unhoused, no services. Wants to start meds and substance rehab services. No indication for antipsychotics as hallucinations less intense/resolved and are substance related, so resolving. Will start zoloft and trazodone and CIWA 12/22/2023: Overall no changes. 12/22- baclofen for cocaine cravings and muscle aches. increase trazodone 100mg po qhs. 9/10 kub for constipation, seroquel prn for anxiety Reason for continued inpatient stay Substantial Risk for: inability to function Time Spent With Patient Time: Total time managing care of this patient today ____ minutes.
[2023-12-24] MEDS: Ferrous Sulfate 300 MG/5 ML LIQUID PO (09:17)
[2023-12-24] MEDS: Ascorbic Acid 250 MG TABLET PO (09:18)
[2023-12-24] MEDS: hydrOXYzine HCL 25 MG TABLET PO ×3 (09:18→23:40)
[2023-12-24] MEDS: Sertraline HCL 50 MG TABLET PO (09:18)
[2023-12-24] MEDS: Gabapentin 400 MG CAPSULE 800 MG PO ×3 (09:19→20:45)
[2023-12-24] MEDS: Ibuprofen 800 MG TABLET PO (09:19)
[2023-12-24] MEDS: Baclofen 10 MG TABLET PO ×3 (09:19→20:48)
[2023-12-24] MEDS: Lactase TABLET 1 TAB PO ×3 (09:20→17:52)
[2023-12-24] MEDS: Acetaminophen 325 MG TABLET 975 MG PO ×3 (09:20→20:44)
[2023-12-24] MEDS: Simethicone 80 MG TAB.CHEW PO ×4 (09:20→20:47)
--- NOTE | 2023-12-24 11:17 | P.PNADD_ITS ---
Subjective Subjective Date of Service: 12/24/23 Reason For Visit: SI Interim History: Patient is a 58 year old male with long history of AMAURY, currently admitted to unit. Seen on 12/22 by design engineer marine equipment--at that time verbalized that he was considering restarting buprenorphine due to opiate cravings Seen by t/w on M3. He was awake, alert, pleasant and engaged in interview. Much of interview he spoke of his ex GF who passed in June and current GF who is on [place] [facility] Responded well to redirection to focus discussion on his current treatment plan and goals Reporting frequent crack cocaine use. Denies any opiate use and states he does not wish to restart suboxone due to not wanting to have to come off of them again He identifies cocaine as his main issue. He reports using btwn 800-$1000/ month. He states that his dealer will usually cut me off once he gets to $800 for the month. His motivation/ belief in his ability for change vacillated during interview as he states he wants to stop and get himself together, but also identified cocaine as his method for coping with loss. He appeared comfortable and in good spirits. No other concerns reported Review of Systems Constitutional: Reports as per HPI Mental Status Exam Mental Status Exam Patient Appearance: Appropriate Level of Consciousness: Awake, Appropriate and Alert Patient Behavior: Appropriate and Talkative Mood Description: Calm Affect Description: Calm Speech Pattern: Clear Diagnostics Vital Signs (24Hr): Vital Signs - 24 hr 12/23/23 19:17 Temperature 97.8 F Pulse Rate 66 Blood Pressure 115/63 Pulse Oximetry 94 Oxygen Delivery Method Room Air BMI result Body Mass Index 33.8 Labs 12/20/23 20:11 12/21/23 07:37 Labs: Laboratory Results - last 48 hr 12/23/23 12:44 Iron 19 L TIBC 315 % Saturation 6 L Unsat Iron Binding 296 Medications Medications Current Medications Acetaminophen (Acetaminophen 325 Mg Tablet) 975 mg PO TID [facility] Last Admin: 12/24/23 09:20 Dose: 975 mg Al Hydroxide/Mg Hydroxide (Magnesium Hydrox/Alum Hydrox 30 Ml Oral.Susp) 30 ml PO Q6H PRN PRN Reason: Heartburn/Nausea Ascorbic Acid (Ascorbic Acid 250 Mg Tablet) 250 mg PO DAILY [facility] Last Admin: 12/24/23 09:18 Dose: 250 mg Baclofen (Baclofen 10 Mg Tablet) 10 mg PO TID [facility] Last Admin: 12/24/23 09:19 Dose: 10 mg Capsaicin (Capsaicin 0.025% Cream 60 Gm Tube) 1 appl TOPICAL TID PRN; Protocol PRN Reason: Pain, Moderate(Pain Scale 4-6) Last Admin: 12/23/23 18:54 Dose: 1 appl Ferrous Sulfate (Ferrous Sulfate 300 Mg/5 Ml Liquid) 300 mg PO DAILY [facility] Last Admin: 12/24/23 09:17 Dose: 300 mg Gabapentin (Gabapentin 400 Mg Capsule) 800 mg PO TID [facility] Last Admin: 12/24/23 09:19 Dose: 800 mg Hydroxyzine HCl (Hydroxyzine Hcl 25 Mg Tablet) 25 mg PO Q6H PRN PRN Reason: Anxiety Last Admin: 12/24/23 09:18 Dose: 25 mg Ibuprofen (Ibuprofen 800 Mg Tablet) 800 mg PO Q8H PRN PRN Reason: mild to moderate pain (1-6) Last Admin: 12/24/23 09:19 Dose: 800 mg Lactase (Lactase Tablet) 1 tab PO TIDWM PRN PRN Reason: Lactose Intolerance Last Admin: 12/24/23 09:20 Dose: 1 tab Lidocaine (Lidocaine 4 % Patch Adh..Patch) 1 patch TRANSDERMA DAILY [facility]; Protocol Last Admin: 12/24/23 09:23 Dose: Not Given Magnesium Hydroxide (Milk Of Magnesia 30 Ml Oral.Susp) 30 ml PO DAILY PRN PRN Reason: Constipation Nicotine Polacrilex (Nicotine Polacrilex 2 Mg Gum) 4 mg BUCCAL Q2H PRN PRN Reason: Nicotine Cravings Sertraline HCl (Sertraline Hcl 50 Mg Tablet) 50 mg PO DAILY [facility] Last Admin: 12/24/23 09:18 Dose: 50 mg Simethicone (Simethicone 80 Mg Tab.Chew) 80 mg PO QIDWMHS [facility] Last Admin: 12/24/23 09:20 Dose: 80 mg Trazodone HCl (Trazodone Hcl 50 Mg Tablet) 50 mg PO BEDTIME MRX1 PRN PRN Reason: Insomnia Last Admin: 12/24/23 00:35 Dose: 50 mg Trazodone HCl (Trazodone Hcl 100 Mg Tablet) 100 mg PO BEDTIME [facility] Last Admin: 12/23/23 20:06 Dose: 100 mg Allergies Allergies Allergy/AdvReac Type Severity Reaction Status Date / Time oxycodone AdvReac Unknown GI upset Verified 12/20/23 19:48 Assessment & Plan Assessment & Plan (1) Cocaine use disorder: Status: Acute Code(s): F14.10 - Cocaine abuse, uncomplicated Assessment and Plan: * started on baclofen 10mg TID on 12/22--dose can be titrated as appropriate * topomax 25mg BID to start then increase to 50mg BID also an option * encouraged to attend Recovery group this evening with RN * will refer track and field coach to check in with patient on 12/24 Total time managing care of this patient today _25___ minutes.
[2023-12-24] MEDS: QUEtiapine Fumarate 50 MG TABLET PO ×2 (17:52→23:48)
[2023-12-24 20:00] VITALS: BP 101/57; PULSE 83; RESP 16; TEMP 36.3; O2SAT 96
[2023-12-24] MEDS: traZODone HCL 100 MG TABLET PO (20:46)
[2023-12-24] MEDS: Magnesium Oxide 400 MG TABLET PO (20:47)
[2023-12-24] MEDS: Magnesium Hydrox/Alum Hydrox 30 ML ORAL.SUSP PO (23:40)
[2023-12-25] MEDS: Ibuprofen 800 MG TABLET PO ×2 (06:13→14:48)
[2023-12-25 07:40] VITALS: BP 137/61; PULSE 69; RESP 16; TEMP 36.9; O2SAT 87
[2023-12-25] MEDS: Ferrous Sulfate 300 MG/5 ML LIQUID PO (08:41)
[2023-12-25] MEDS: Simethicone 80 MG TAB.CHEW PO ×4 (08:42→20:53)
[2023-12-25] MEDS: Sertraline HCL 50 MG TABLET PO (08:42)
[2023-12-25] MEDS: hydrOXYzine HCL 25 MG TABLET PO ×2 (08:43→23:10)
[2023-12-25] MEDS: Gabapentin 400 MG CAPSULE 800 MG PO ×3 (08:43→20:53)
[2023-12-25] MEDS: Ascorbic Acid 250 MG TABLET PO (08:43)
[2023-12-25] MEDS: Baclofen 10 MG TABLET PO ×3 (08:43→20:54)
[2023-12-25] MEDS: Acetaminophen 325 MG TABLET 975 MG PO ×3 (08:44→20:54)
[2023-12-25] MEDS: Lactase TABLET 1 TAB PO ×3 (08:46→17:40)
--- NOTE | 2023-12-25 11:24 | P.PNPSI_ITS ---
Subjective Subjective Date of Service: 12/25/23 Reason For Visit: SI Subjective Notes: Conditional Voluntary Interim History: Pt reports ongoing difficulty sleeping at night. He reports less depressed mood. He denies SI/HI. He reports anxious mood. Review of Systems Review of Systems Yes all other systems are reviewed and are negative Constitutional: Reports as per HPI, Reports no additional constitutional complaints, Denies chills, Denies fever(s) and Denies night sweats Eyes: Reports no additional eye complaints, Denies blurry vision, Denies change in vision, Denies diplopia, Denies eye discharge, Denies loss of vision and Denies eye pain Denies dizziness Cardiovascular: Reports no additional cardiovascular complaints, Denies chest pain, Denies lightheadedness, Denies Loss of Consciousness and Denies dyspnea Respiratory: Reports no additional respiratory complaints and Denies dyspnea Gastrointestinal: Reports no additional gastrointestinal complaints, Denies abdominal pain, Denies melena, Denies hematochezia, Denies change in bowel habits and Denies change in stool character Genitourinary: Reports no additional male genitourinary complaints, Denies hematuria, Denies oliguria, Denies difficulty urinating, Denies dysuria, Denies urinary frequency, Denies urinary hesitancy, Denies urinary incontinence and Denies urinary urgency Musculoskeletal: Reports no additional musculoskeletal complaints, Denies numbness and Denies tingling Denies dizziness, Denies loss of vision, Denies numbness and Denies tingling Psychiatric: Reports no additional psychiatric complaints, Denies homicidal ideation and Reports suicidal ideation Endocrine: Reports no additional endocrine complaints Hematologic/Lymphatic: Reports no additional hematologic/lymphatic complaints Allergic/Immunologic: Reports no additional allergic/immunologic complaints Mental Status Exam Mental Status Exam Patient Appearance: Appropriate Level of Consciousness: Awake, Appropriate and Alert Patient Behavior: Appropriate and Talkative Mood Description: Calm Affect Description: Calm Speech Pattern: Clear Diagnostics Vital Signs (24Hr): Vital Signs - 24 hr 12/24/23 20:00 12/25/23 07:40 Temperature 97.4 F 98.5 F Pulse Rate 83 69 Respiratory Rate 16 16 Blood Pressure 101/57 L 137/61 Pulse Oximetry 96 87 L Oxygen Delivery Method Room Air Room Air BMI result Body Mass Index 33.8 Labs 12/20/23 20:11 12/21/23 07:37 Labs: Laboratory Results - last 48 hr 12/23/23 12:44 Iron 19 L TIBC 315 % Saturation 6 L Unsat Iron Binding 296 Imaging Radiology Impressions: ITS Impressions KUB X-Ray 12/24/23 14:20 IMPRESSION: No evidence of bowel obstruction. Mild to moderate stool present in the colon. Electronically signed by: Pablo Montelongo MD 12/24/2023 06:52 PM EDT RP Medications Medications Current Medications Acetaminophen (Acetaminophen 325 Mg Tablet) 975 mg PO TID [facility] Last Admin: 12/25/23 08:44 Dose: 975 mg Al Hydroxide/Mg Hydroxide (Magnesium Hydrox/Alum Hydrox 30 Ml Oral.Susp) 30 ml PO Q6H PRN PRN Reason: Heartburn/Nausea Last Admin: 12/24/23 23:40 Dose: 30 ml Ascorbic Acid (Ascorbic Acid 250 Mg Tablet) 250 mg PO DAILY [facility] Last Admin: 12/25/23 08:43 Dose: 250 mg Baclofen (Baclofen 10 Mg Tablet) 10 mg PO TID [facility] Last Admin: 12/25/23 08:43 Dose: 10 mg Capsaicin (Capsaicin 0.025% Cream 60 Gm Tube) 1 appl TOPICAL TID PRN; Protocol PRN Reason: Pain, Moderate(Pain Scale 4-6) Last Admin: 12/23/23 18:54 Dose: 1 appl Ferrous Sulfate (Ferrous Sulfate 300 Mg/5 Ml Liquid) 300 mg PO DAILY [facility] Last Admin: 12/25/23 08:41 Dose: 300 mg Gabapentin (Gabapentin 400 Mg Capsule) 800 mg PO TID [facility] Last Admin: 12/25/23 08:43 Dose: 800 mg Hydroxyzine HCl (Hydroxyzine Hcl 25 Mg Tablet) 25 mg PO Q6H PRN PRN Reason: Anxiety Last Admin: 12/25/23 08:43 Dose: 25 mg Ibuprofen (Ibuprofen 800 Mg Tablet) 800 mg PO Q8H PRN PRN Reason: mild to moderate pain (1-6) Last Admin: 12/25/23 06:13 Dose: 800 mg Lactase (Lactase Tablet) 1 tab PO TIDWM PRN PRN Reason: Lactose Intolerance Last Admin: 12/25/23 08:46 Dose: 1 tab Lidocaine (Lidocaine 4 % Patch Adh..Patch) 1 patch TRANSDERMA DAILY [facility]; Protocol Last Admin: 12/25/23 09:09 Dose: Not Given Magnesium Hydroxide (Milk Of Magnesia 30 Ml Oral.Susp) 30 ml PO DAILY PRN PRN Reason: Constipation Magnesium Oxide (Magnesium Oxide 400 Mg Tablet) 400 mg PO BEDTIME [facility] Last Admin: 12/24/23 20:47 Dose: 400 mg Nicotine Polacrilex (Nicotine Polacrilex 2 Mg Gum) 4 mg BUCCAL Q2H PRN PRN Reason: Nicotine Cravings Quetiapine Fumarate (Quetiapine Fumarate 50 Mg Tablet) 50 mg PO Q6H PRN PRN Reason: moderate anxiety/agitation Last Admin: 12/24/23 23:48 Dose: 50 mg Sertraline HCl (Sertraline Hcl 50 Mg Tablet) 50 mg PO DAILY [facility] Last Admin: 12/25/23 08:42 Dose: 50 mg Simethicone (Simethicone 80 Mg Tab.Chew) 80 mg PO QIDWMHS [facility] Last Admin: 12/25/23 08:42 Dose: 80 mg Trazodone HCl (Trazodone Hcl 50 Mg Tablet) 50 mg PO BEDTIME MRX1 PRN PRN Reason: Insomnia Last Admin: 12/24/23 23:39 Dose: 50 mg Trazodone HCl (Trazodone Hcl 100 Mg Tablet) 100 mg PO BEDTIME [facility] Last Admin: 12/24/23 20:46 Dose: 100 mg Allergies Allergies Allergy/AdvReac Type Severity Reaction Status Date / Time oxycodone AdvReac Unknown GI upset Verified 12/20/23 19:48 Assessment & Plan Assessment & Plan (1) MDD (major depressive disorder): Qualifiers: Active/Remission status: currently active Major depression episode severity: moderate Major depression recurrence: single episode Qualified Code(s): F32.1 - Major depressive disorder, single episode, moderate Status: Acute Code(s): F32.9 - Major depressive disorder, single episode, unspecified (2) Polysubstance use disorder: Status: Acute Code(s): F19.90 - Other psychoactive substance use, unspecified, uncomplicated Plan Presents with MDD and polysubstance use disorder- alcohol and cocaine in context of unhoused, no services. Wants to start meds and substance rehab services. No indication for antipsychotics as hallucinations less intense/resolved and are substance related, so resolving. Will start zoloft and trazodone and CIWA 12/22/2023: Overall no changes. 12/22- baclofen for cocaine cravings and muscle aches. increase trazodone 100mg po qhs. 12/23 kub for constipation, seroquel prn for anxiety 12/24 add clonidine 0.1mg po BID.avoid benzodiazepines. sleep study r/o ANA, desat at night. Reason for continued inpatient stay Substantial Risk for: harm to self Time Spent With Patient Time: Total time managing care of this patient today ____ minutes.
[2023-12-25] MEDS: Nicotine Polacrilex Lozenge 2 MG LOZENGE BUCCAL ×3 (14:49→21:07)
[2023-12-25 20:00] VITALS: BP 138/73; PULSE 75; RESP 18; TEMP 37.2; O2SAT 96
[2023-12-25] MEDS: Magnesium Oxide 400 MG TABLET PO (20:54)
[2023-12-25] MEDS: traZODone HCL 50 MG TABLET PO (23:10)
[2023-12-25] MEDS: traZODone HCL 100 MG TABLET PO (23:11)
[2023-12-25] MEDS: QUEtiapine Fumarate 50 MG TABLET PO (23:11)
[2023-12-26] MEDS: Nicotine Polacrilex Lozenge 2 MG LOZENGE BUCCAL ×7 (04:42→21:09)
[2023-12-26 07:00] VITALS: BMI 36.8
[2023-12-26] MEDS: Simethicone 80 MG TAB.CHEW PO ×4 (07:59→20:54)
[2023-12-26 08:00] VITALS: BP 145/72; PULSE 65; RESP 16; TEMP 36.4; O2SAT 96
[2023-12-26] MEDS: Ascorbic Acid 250 MG TABLET PO (08:00)
[2023-12-26] MEDS: Baclofen 10 MG TABLET PO ×3 (08:00→20:51)
[2023-12-26] MEDS: Sertraline HCL 50 MG TABLET PO (08:00)
[2023-12-26] MEDS: Ferrous Sulfate 300 MG/5 ML LIQUID PO (08:01)
[2023-12-26] MEDS: Gabapentin 400 MG CAPSULE 800 MG PO ×3 (08:01→20:51)
[2023-12-26] MEDS: Acetaminophen 325 MG TABLET 975 MG PO ×3 (08:01→20:52)
[2023-12-26] MEDS: Capsaicin 0.025% Cream 60 GM TUBE 1 APPL TOPICAL (08:02)
--- NOTE | 2023-12-26 09:43 | P.PNPSI_ITS ---
Subjective Subjective Date of Service: 12/26/23 Reason For Visit: SI Subjective Notes: Conditional Voluntary Interim History: Pt reports feeling anxious, slightly less. He denies SI/HI. Difficulty sleeping at night, but reports last night was slightly better. Pending sleep study. He later reported bilat edema, hx of dvt, ordered doppler. He has been visible on the unit. He reports his main concern is his GF relapsing on opioids and having accidental OD, like his prior GF. He is future oriented, he reports he may go to friends house, not sure about going to a program, especially if he can't he with his GF. He has not followed up with PCP. Review of Systems Review of Systems SOB Nonproductive cough Orthopnea Lower leg edema Left calf pain Neck pain radiating down upper extremities, left worse than right Yes all other systems are reviewed and are negative Constitutional: Reports as per HPI, Reports no additional constitutional complaints, Denies chills, Denies fever(s) and Denies night sweats Eyes: Reports no additional eye complaints, Denies blurry vision, Denies change in vision, Denies diplopia, Denies eye discharge, Denies loss of vision and Denies eye pain Denies dizziness Cardiovascular: Reports no additional cardiovascular complaints, Denies chest pain, Denies lightheadedness, Denies Loss of Consciousness and Denies dyspnea Respiratory: Reports no additional respiratory complaints and Denies dyspnea Gastrointestinal: Reports no additional gastrointestinal complaints, Denies abdominal pain, Denies melena, Denies hematochezia, Denies change in bowel habits and Denies change in stool character Genitourinary: Reports no additional male genitourinary complaints, Denies hematuria, Denies oliguria, Denies difficulty urinating, Denies dysuria, Denies urinary frequency, Denies urinary hesitancy, Denies urinary incontinence and Denies urinary urgency Musculoskeletal: Reports no additional musculoskeletal complaints, Denies numbness and Denies tingling Denies dizziness, Denies loss of vision, Denies numbness and Denies tingling Psychiatric: Reports no additional psychiatric complaints, Denies homicidal ideation and Reports suicidal ideation Endocrine: Reports no additional endocrine complaints Hematologic/Lymphatic: Reports no additional hematologic/lymphatic complaints Allergic/Immunologic: Reports no additional allergic/immunologic complaints Mental Status Exam Mental Status Exam Narrative: pleasant. Age. Hospital clothing. Fair self-care. Organized. less depressed. denies SI. No current hallucinations no paranoia. Feels safe. No HI. Insight judgment fair Patient Appearance: Appropriate Level of Consciousness: Awake, Appropriate and Alert Patient Behavior: Appropriate and Talkative Mood Description: Calm, Euphoric and Relaxed Affect Description: Calm Speech Pattern: Clear Diagnostics Vital Signs (24Hr): Vital Signs - 24 hr 12/25/23 20:00 12/26/23 08:00 Temperature 98.9 F 97.5 F Pulse Rate 75 65 Respiratory Rate 18 16 Blood Pressure 138/73 145/72 H Pulse Oximetry 96 96 Oxygen Delivery Method Room Air Room Air BMI result Body Mass Index 33.8 Labs 12/20/23 20:11 12/21/23 07:37 Imaging Radiology Impressions: ITS Impressions KUB X-Ray 12/24/23 14:20 IMPRESSION: No evidence of bowel obstruction. Mild to moderate stool present in the colon. Electronically signed by: Pablo Montelongo MD 12/24/2023 06:52 PM EDT RP Medications Medications Current Medications Acetaminophen (Acetaminophen 325 Mg Tablet) 975 mg PO TID [facility] Last Admin: 12/26/23 08:01 Dose: 975 mg Al Hydroxide/Mg Hydroxide (Magnesium Hydrox/Alum Hydrox 30 Ml Oral.Susp) 30 ml PO Q6H PRN PRN Reason: Heartburn/Nausea Last Admin: 12/24/23 23:40 Dose: 30 ml Ascorbic Acid (Ascorbic Acid 250 Mg Tablet) 250 mg PO DAILY [facility] Last Admin: 12/26/23 08:00 Dose: 250 mg Baclofen (Baclofen 10 Mg Tablet) 10 mg PO TID [facility] Last Admin: 12/26/23 08:00 Dose: 10 mg Capsaicin (Capsaicin 0.025% Cream 60 Gm Tube) 1 appl TOPICAL TID PRN; Protocol PRN Reason: Pain, Moderate(Pain Scale 4-6) Last Admin: 12/26/23 08:02 Dose: 1 appl Ferrous Sulfate (Ferrous Sulfate 300 Mg/5 Ml Liquid) 300 mg PO DAILY [facility] Last Admin: 12/26/23 08:01 Dose: 300 mg Gabapentin (Gabapentin 400 Mg Capsule) 800 mg PO TID [facility] Last Admin: 12/26/23 08:01 Dose: 800 mg Hydroxyzine HCl (Hydroxyzine Hcl 25 Mg Tablet) 25 mg PO Q6H PRN PRN Reason: Anxiety Last Admin: 12/25/23 23:10 Dose: 25 mg Ibuprofen (Ibuprofen 800 Mg Tablet) 800 mg PO Q8H PRN PRN Reason: mild to moderate pain (1-6) Last Admin: 12/25/23 14:48 Dose: 800 mg Lactase (Lactase Tablet) 1 tab PO TIDWM PRN PRN Reason: Lactose Intolerance Last Admin: 12/25/23 17:40 Dose: 1 tab Lidocaine (Lidocaine 4 % Patch Adh..Patch) 1 patch TRANSDERMA DAILY [facility]; Protocol Last Admin: 12/26/23 08:11 Dose: Not Given Magnesium Hydroxide (Milk Of Magnesia 30 Ml Oral.Susp) 30 ml PO DAILY PRN PRN Reason: Constipation Magnesium Oxide (Magnesium Oxide 400 Mg Tablet) 400 mg PO BEDTIME [facility] Last Admin: 12/25/23 20:54 Dose: 400 mg Nicotine Polacrilex (Nicotine Polacrilex Lozenge 2 Mg Lozenge) 2 mg BUCCAL Q2H PRN PRN Reason: Nicotine Cravings Last Admin: 12/26/23 08:02 Dose: 2 mg Quetiapine Fumarate (Quetiapine Fumarate 50 Mg Tablet) 50 mg PO Q6H PRN PRN Reason: moderate anxiety/agitation Last Admin: 12/25/23 23:11 Dose: 50 mg Simethicone (Simethicone 80 Mg Tab.Chew) 80 mg PO QIDWMHS [facility] Last Admin: 12/26/23 07:59 Dose: 80 mg Trazodone HCl (Trazodone Hcl 50 Mg Tablet) 50 mg PO BEDTIME MRX1 PRN PRN Reason: Insomnia Last Admin: 12/25/23 23:10 Dose: 50 mg Trazodone HCl (Trazodone Hcl 100 Mg Tablet) 100 mg PO BEDTIME [facility] Last Admin: 12/25/23 23:11 Dose: 100 mg Allergies Allergies Allergy/AdvReac Type Severity Reaction Status Date / Time oxycodone AdvReac Unknown GI upset Verified 12/20/23 19:48 Assessment & Plan Assessment & Plan (1) MDD (major depressive disorder): Qualifiers: Active/Remission status: currently active Major depression episode severity: moderate Major depression recurrence: single episode Qualified Code(s): F32.1 - Major depressive disorder, single episode, moderate Status: Acute Code(s): F32.9 - Major depressive disorder, single episode, unspecified (2) Polysubstance use disorder: Status: Acute Code(s): F19.90 - Other psychoactive substance use, unspecified, uncomplicated Plan Presents with MDD and polysubstance use disorder- alcohol and cocaine in context of unhoused, no services. Wants to start meds and substance rehab services. No indication for antipsychotics as hallucinations less intense/resolved and are substance related, so resolving. Will start zoloft and trazodone and CIWA 12/22/2023: Overall no changes. 12/22- baclofen for cocaine cravings and muscle aches. increase trazodone 100mg po qhs. 12/23 kub for constipation, seroquel prn for anxiety 12/24 add clonidine 0.1mg po BID.avoid benzodiazepines. sleep study r/o ANA, desat at night. 12/25 ordered doppler bilat edema, painful calf. hx of DVT. increase trazodone 150mg po qhs. Reason for continued inpatient stay Substantial Risk for: harm to self Time Spent With Patient Time: Total time managing care of this patient today ____ minutes.
[2023-12-26] MEDS: Ibuprofen 800 MG TABLET PO ×2 (10:59→20:54)
--- NOTE | 2023-12-26 11:22 | PC.NURSE ---
Nicholas was reporting a burning feeling in his lower legs bilaterally, they are not red or swollen but warm to the touch. He reports a bad history with blood clots in the past. BP was 145/72 this morning, Aleena Gordon NP made aware
--- NOTE | 2023-12-26 11:35 | P.CNNE_ITS ---
History of Present Illness Data of Consult Service Date: 12/26/23 Primary Care Provider: Unknown Physician HPI Reason for consult: hand numbness 58 yr man with substance abuse hx admitted for being depressed, suicidal and hearing voices. Having thoughts of jumping bridge. Recently relapsed cocaine. Homeless. He fell about 2 years ago and says that she has some pain in the neck radiating down the left upper extremity and numbness in both hands, with the left significantly worse than the right PMFSH Past Medical History Medical History Varicose veins of right lower extremity Peripheral vascular disease GERD (gastroesophageal reflux disease) History of pernicious anemia Hx of acute respiratory failure Edema Back pain Arthritis History of DVT of lower extremity Depression ANA treated with BiPAP Right-sided heart failure Family History Family History Father Displacement of central venous catheter (CVC) Mother Unknown family medical history Surgical History Surgical History History of incisional hernia repair Hx of esophagogastroduodenoscopy Hx of colonoscopy History of total right knee replacement S/P right knee arthroscopy Hx of tracheostomy Hx of total hip arthroplasty History of colostomy reversal History of colon resection H/O gastric bypass Social History Social History Household Members: None Housing: Homeless Do you presently have visiting nurse or other home services: No Patient Tobacco Use Status: Current everyday Tobacco user Tobacco use type: Cigarette Cigarette Packs Per Day: 1 Cigarettes Per Day: 20.0 Smoked in Last 30 Days: Yes e-Cigarette/Vaping Use: Never Used Patient Interested in Nicotine Replacement: Yes Patient Given Instructions on How to Stop Smoking: No Second Hand Smoke Exposure: No Use of substances other than those prescribed or required for medical reasons: Yes Substance Use Type: Crack/Cocaine and Marijuana Substance Use Frequency: Daily Last Used Substance: Hours (ago) Currently Displaying Signs/Symptoms of Drug Intoxication Withdrawal: No Any prior treatment program specific to substance use: Yes Have you been hit, kicked, punched, or otherwise hurt by someone within the past year? If so, by whom?: No Do you feel safe in your current relationship?: Yes Is there a partner from a previous relationship who is making you feel unsafe now?: No Are you made to feel afraid or neglected: No Advance Directives: No Advance Directives Information Provided: No Do you have thoughts of harming others: None Do you have a plan to hurt others: No Plan Recently lost weight without trying: No Eating poorly because of decreased appetite: No Nutrition Risks: No Nutritional Risk Poor oral hygiene: No service: No Sexual orientation: Straight/Heterosexual Meds Allergies Allergy/AdvReac Type Severity Reaction Status Date / Time oxycodone AdvReac Unknown GI upset Verified 12/20/23 19:48 Active Medications: Current Medications Acetaminophen (Acetaminophen 325 Mg Tablet) 975 mg PO TID [facility] Last Admin: 12/26/23 08:01 Dose: 975 mg Al Hydroxide/Mg Hydroxide (Magnesium Hydrox/Alum Hydrox 30 Ml Oral.Susp) 30 ml PO Q6H PRN PRN Reason: Heartburn/Nausea Last Admin: 12/24/23 23:40 Dose: 30 ml Ascorbic Acid (Ascorbic Acid 250 Mg Tablet) 250 mg PO DAILY [facility] Last Admin: 12/26/23 08:00 Dose: 250 mg Baclofen (Baclofen 10 Mg Tablet) 10 mg PO TID [facility] Last Admin: 12/26/23 08:00 Dose: 10 mg Capsaicin (Capsaicin 0.025% Cream 60 Gm Tube) 1 appl TOPICAL TID PRN; Protocol PRN Reason: Pain, Moderate(Pain Scale 4-6) Last Admin: 12/26/23 08:02 Dose: 1 appl Ferrous Sulfate (Ferrous Sulfate 300 Mg/5 Ml Liquid) 300 mg PO DAILY [facility] Last Admin: 12/26/23 08:01 Dose: 300 mg Gabapentin (Gabapentin 400 Mg Capsule) 800 mg PO TID [facility] Last Admin: 12/26/23 08:01 Dose: 800 mg Hydroxyzine HCl (Hydroxyzine Hcl 25 Mg Tablet) 25 mg PO Q6H PRN PRN Reason: Anxiety Last Admin: 12/25/23 23:10 Dose: 25 mg Ibuprofen (Ibuprofen 800 Mg Tablet) 800 mg PO Q8H PRN PRN Reason: mild to moderate pain (1-6) Last Admin: 12/26/23 10:59 Dose: 800 mg Lactase (Lactase Tablet) 1 tab PO TIDWM PRN PRN Reason: Lactose Intolerance Last Admin: 12/25/23 17:40 Dose: 1 tab Lidocaine (Lidocaine 4 % Patch Adh..Patch) 1 patch TRANSDERMA DAILY [facility]; Protocol Last Admin: 12/26/23 08:11 Dose: Not Given Magnesium Hydroxide (Milk Of Magnesia 30 Ml Oral.Susp) 30 ml PO DAILY PRN PRN Reason: Constipation Magnesium Oxide (Magnesium Oxide 400 Mg Tablet) 400 mg PO BEDTIME [facility] Last Admin: 12/25/23 20:54 Dose: 400 mg Nicotine Polacrilex (Nicotine Polacrilex Lozenge 2 Mg Lozenge) 2 mg BUCCAL Q2H PRN PRN Reason: Nicotine Cravings Last Admin: 12/26/23 10:57 Dose: 2 mg Quetiapine Fumarate (Quetiapine Fumarate 50 Mg Tablet) 50 mg PO Q6H PRN PRN Reason: moderate anxiety/agitation Last Admin: 12/25/23 23:11 Dose: 50 mg Simethicone (Simethicone 80 Mg Tab.Chew) 80 mg PO QIDWMHS [facility] Last Admin: 12/26/23 07:59 Dose: 80 mg Trazodone HCl (Trazodone Hcl 50 Mg Tablet) 50 mg PO BEDTIME MRX1 PRN PRN Reason: Insomnia Last Admin: 12/25/23 23:10 Dose: 50 mg Trazodone HCl (Trazodone Hcl 100 Mg Tablet) 100 mg PO BEDTIME [facility] Last Admin: 12/25/23 23:11 Dose: 100 mg Home Medications ?Medication ?Instructions ?Recorded ?Confirmed ?Last Taken ?Type miscellaneous medical supply #1 ea 01/14/20 06/07/20 Unknown History Physical Exam 2 Vital Signs: Vital Signs: Last Vital Signs Temp 97.5 F 12/26/23 08:00 Pulse 65 12/26/23 08:00 Resp 16 12/26/23 08:00 BP 145/72 H 12/26/23 08:00 Pulse Ox 96 12/26/23 08:00 O2 Del Method Room Air 12/26/23 08:00 BMI result Body Mass Index 33.8 Neuro: Other: Normal neuro exam except for mild weakness in the abductor pollicis brevis muscle laterally, left worse than right Results Labs 12/20/23 20:11 12/21/23 07:37 Assessment and Plan (1) Cervical radiculopathy: Status: Acute His symptoms are consistent with either cervical radiculopathy or peripheral nerve entrapment in the carpal tunnel, left worse than right. Recommendations: Four view X-ray of the cervical spine. Nerve conduction/ EMG studies of the upper extremities can be booked. Procedures Date of Service Date of Service: 12/26/23
[2023-12-26 20:00] VITALS: BP 135/60; PULSE 78; RESP 18; TEMP 36.4; O2SAT 96
[2023-12-26] MEDS: Omeprazole 20 MG CAPSULE.DR PO (20:52)
[2023-12-26] MEDS: Magnesium Oxide 400 MG TABLET PO (20:54)
[2023-12-26] MEDS: QUEtiapine Fumarate 50 MG TABLET PO (22:28)
[2023-12-26] MEDS: traZODone HCL 50 MG TABLET 150 MG PO (22:28)
[2023-12-27] MEDS: Omeprazole 20 MG CAPSULE.DR PO (06:35)
[2023-12-27 07:40] VITALS: BP 140/85; PULSE 82; RESP 16; TEMP 36.4; O2SAT 97
[2023-12-27] MEDS: Nicotine Polacrilex Lozenge 2 MG LOZENGE BUCCAL ×6 (07:47→20:48)
[2023-12-27] MEDS: Ascorbic Acid 250 MG TABLET PO (08:44)
[2023-12-27] MEDS: Gabapentin 400 MG CAPSULE 800 MG PO ×3 (08:44→20:46)
[2023-12-27] MEDS: Baclofen 10 MG TABLET PO ×3 (08:44→20:48)
[2023-12-27] MEDS: Acetaminophen 325 MG TABLET 975 MG PO ×3 (08:44→20:47)
[2023-12-27] MEDS: Simethicone 80 MG TAB.CHEW PO ×4 (08:45→20:48)
[2023-12-27] MEDS: Ferrous Sulfate 300 MG/5 ML LIQUID PO (08:45)
--- NOTE | 2023-12-27 12:53 | HO.PSYCHPN ---
Subjective Subjective Date of Service: 12/27/23 Reason For Visit: SI Subjective Notes: Conditional Voluntary Healthcare Proxy: No Interim History: Pt reports ongoing difficulty sleeping at night. He h orderedad a sleep study He reports less depressed mood. He denies SI/HI. He reports anxious mood c/o sob pain hosp consult. Mental Status Exam Mental Status Exam Patient Appearance: Appropriate Level of Consciousness: Awake, Appropriate and Alert Patient Behavior: Appropriate and Talkative Mood Description: Calm, Euphoric and Relaxed Affect Description: Calm Speech Pattern: Clear Diagnostics Vital Signs (24Hr): Vital Signs - 24 hr 12/26/23 20:00 12/27/23 07:40 Temperature 97.5 F 97.5 F Pulse Rate 78 82 Respiratory Rate 18 16 Blood Pressure 135/60 140/85 H Pulse Oximetry 96 97 Oxygen Delivery Method Room Air Room Air BMI result Body Mass Index 36.8 Labs 12/20/23 20:11 12/21/23 07:37 Imaging Radiology Impressions: ITS Impressions KUB X-Ray 12/24/23 14:20 IMPRESSION: No evidence of bowel obstruction. Mild to moderate stool present in the colon. Electronically signed by: Pablo Montelongo MD 12/24/2023 06:52 PM EDT RP Cervical Spine X-Ray 12/26/23 16:05 IMPRESSION: 1. No acute visible fracture or dislocation. 2. Straightening with slight reversal of the normal cervical curvature. 3. Slight grade 1 anterolisthesis of C2 on C3. 4. Multilevel degenerative changes with multilevel neural foraminal narrowing. 5. Prevertebral soft tissues are mildly prominent greatest at C5-C6, nonspecific. Electronically signed by: Kareem Douglas MD 12/26/2023 05:00 PM EDT RP Venous Duplex 12/26/23 17:18 IMPRESSION: No evidence of deep venous thrombosis involving the bilateral lower extremities. Electronically signed by: Lore Dubon MD 12/26/2023 10:08 PM EDT Medications Medications Current Medications Acetaminophen (Acetaminophen 325 Mg Tablet) 975 mg PO TID [facility] Last Admin: 12/27/23 08:44 Dose: 975 mg Al Hydroxide/Mg Hydroxide (Magnesium Hydrox/Alum Hydrox 30 Ml Oral.Susp) 30 ml PO Q6H PRN PRN Reason: Heartburn/Nausea Last Admin: 12/24/23 23:40 Dose: 30 ml Ascorbic Acid (Ascorbic Acid 250 Mg Tablet) 250 mg PO DAILY [facility] Last Admin: 12/27/23 08:44 Dose: 250 mg Baclofen (Baclofen 10 Mg Tablet) 10 mg PO TID [facility] Last Admin: 12/27/23 08:44 Dose: 10 mg Capsaicin (Capsaicin 0.025% Cream 60 Gm Tube) 1 appl TOPICAL TID PRN; Protocol PRN Reason: Pain, Moderate(Pain Scale 4-6) Last Admin: 12/26/23 08:02 Dose: 1 appl Ferrous Sulfate (Ferrous Sulfate 300 Mg/5 Ml Liquid) 300 mg PO DAILY [facility] Last Admin: 12/27/23 08:45 Dose: 300 mg Gabapentin (Gabapentin 400 Mg Capsule) 800 mg PO TID [facility] Last Admin: 12/27/23 08:44 Dose: 800 mg Hydroxyzine HCl (Hydroxyzine Hcl 25 Mg Tablet) 25 mg PO Q6H PRN PRN Reason: Anxiety Last Admin: 12/25/23 23:10 Dose: 25 mg Ibuprofen (Ibuprofen 800 Mg Tablet) 800 mg PO Q8H PRN PRN Reason: mild to moderate pain (1-6) Last Admin: 12/26/23 20:54 Dose: 800 mg Lactase (Lactase Tablet) 1 tab PO TIDWM PRN PRN Reason: Lactose Intolerance Last Admin: 12/25/23 17:40 Dose: 1 tab Lidocaine (Lidocaine 4 % Patch Adh..Patch) 1 patch TRANSDERMA DAILY [facility]; Protocol Last Admin: 12/27/23 08:47 Dose: Not Given Magnesium Hydroxide (Milk Of Magnesia 30 Ml Oral.Susp) 30 ml PO DAILY PRN PRN Reason: Constipation Magnesium Oxide (Magnesium Oxide 400 Mg Tablet) 400 mg PO BEDTIME [facility] Last Admin: 12/26/23 20:54 Dose: 400 mg Nicotine Polacrilex (Nicotine Polacrilex Lozenge 2 Mg Lozenge) 2 mg BUCCAL Q2H PRN PRN Reason: Nicotine Cravings Last Admin: 12/27/23 11:58 Dose: 2 mg Omeprazole (Omeprazole 20 Mg Capsule.Dr) 20 mg PO DAILY@0630 [facility] Last Admin: 12/27/23 06:35 Dose: 20 mg Quetiapine Fumarate (Quetiapine Fumarate 50 Mg Tablet) 50 mg PO Q6H PRN PRN Reason: moderate anxiety/agitation Last Admin: 12/26/23 22:28 Dose: 50 mg Simethicone (Simethicone 80 Mg Tab.Chew) 80 mg PO QIDWMHS [facility] Last Admin: 12/27/23 08:45 Dose: 80 mg Trazodone HCl (Trazodone Hcl 50 Mg Tablet) 50 mg PO BEDTIME MRX1 PRN PRN Reason: Insomnia Last Admin: 12/25/23 23:10 Dose: 50 mg Trazodone HCl (Trazodone Hcl 50 Mg Tablet) 150 mg PO BEDTIME [facility] Last Admin: 12/26/23 22:28 Dose: 150 mg Allergies Allergies Allergy/AdvReac Type Severity Reaction Status Date / Time oxycodone AdvReac Unknown GI upset Verified 12/20/23 19:48 Assessment & Plan Assessment & Plan (1) Cervical radiculopathy: Status: Acute Code(s): M54.12 - Radiculopathy, cervical region Assessment and Plan: His symptoms are consistent with either cervical radiculopathy or peripheral nerve entrapment in the carpal tunnel, left worse than right. Recommendations: Four view X-ray of the cervical spine. Nerve conduction/ EMG studies of the upper extremities can be booked. (2) Shortness of breath: Status: Acute Code(s): R06.02 - Shortness of breath (3) Cocaine use disorder: Status: Acute Code(s): F14.10 - Cocaine abuse, uncomplicated (4) SIL (generalized anxiety disorder): Status: Acute Code(s): F41.1 - Generalized anxiety disorder (5) Obstructive sleep apnea: Status: Acute Code(s): G47.33 - Obstructive sleep apnea (adult) (pediatric) Plan Patient may need which tomorrow no longer to meet psychiatric criteria. Patient focused on medical cocaine surgeons encouraged to continue in outpatient treatment. 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
--- NOTE | 2023-12-27 13:59 | HO.PM.IMCN ---
History of Present Illness Data of Consult Service Date: 12/27/23 Primary Care Provider: Unknown Physician HPI Reason for consult: SOB, LLE Patient is a 58 male with PMH significant for ?unspecified CHF, COPD, hx of DVT, ANA previously on CPAP, bilateral hip replacement, right knee replacement, polysubstance use disorder, and MDD who is admitted to [facility] psychiatry unit for increasing depression with SI with plan to jump off a bridge.? Hospitalist consult for SOB and lower extremity edema. Patient reports he has been experiencing shortness a breath while walking and lying flat for the past 4-5 days with increased nonproductive cough. Patient reports has a history of COPD and 35+ pack year smoking history, previously on home inhalers though none recently. Patient also complains of increased lower leg edema, swelling, and left calf pain. Patient does not recall a PMH of CHF, though recalls being on home Lasix 5 years ago or so ago. States has a previous diagnosis of ANA and was on CPAP years ago. Patient has been homeless since October and smoking crack cocaine daily, which he states is the only medication he currently takes. Denies fever, chills, nausea, vomiting, abdominal pain. No chest pain/pressure, palpitations. Also complains of neck pain radiating down upper extremities, left worse than right. Was seen by neurology for further evaluation. Review of Systems Review of Systems: SOB Nonproductive cough Orthopnea Lower leg edema Left calf pain Neck pain radiating down upper extremities, left worse than right PMFSH Medical History Varicose veins of right lower extremity Peripheral vascular disease GERD (gastroesophageal reflux disease) History of pernicious anemia Hx of acute respiratory failure Edema Back pain Arthritis History of DVT of lower extremity Depression ANA treated with BiPAP Right-sided heart failure Family History Father Displacement of central venous catheter (CVC) Mother Unknown family medical history Surgical History History of incisional hernia repair Hx of esophagogastroduodenoscopy Hx of colonoscopy History of total right knee replacement S/P right knee arthroscopy Hx of tracheostomy Hx of total hip arthroplasty History of colostomy reversal History of colon resection H/O gastric bypass Social History Household Members: None Housing: Homeless Do you presently have visiting nurse or other home services: No Patient Tobacco Use Status: Current everyday Tobacco user Tobacco use type: Cigarette Cigarette Packs Per Day: 1 Cigarettes Per Day: 20.0 Smoked in Last 30 Days: Yes e-Cigarette/Vaping Use: Never Used Patient Interested in Nicotine Replacement: Yes Patient Given Instructions on How to Stop Smoking: No Second Hand Smoke Exposure: No Use of substances other than those prescribed or required for medical reasons: Yes Substance Use Type: Crack/Cocaine and Marijuana Substance Use Frequency: Daily Last Used Substance: Hours (ago) Currently Displaying Signs/Symptoms of Drug Intoxication Withdrawal: No Any prior treatment program specific to substance use: Yes Have you been hit, kicked, punched, or otherwise hurt by someone within the past year? If so, by whom?: No Do you feel safe in your current relationship?: Yes Is there a partner from a previous relationship who is making you feel unsafe now?: No Are you made to feel afraid or neglected: No Advance Directives: No Advance Directives Information Provided: No Do you have thoughts of harming others: None Do you have a plan to hurt others: No Plan Recently lost weight without trying: No Eating poorly because of decreased appetite: No Nutrition Risks: No Nutritional Risk Poor oral hygiene: No service: No Sexual orientation: Straight/Heterosexual Meds Allergies Allergy/AdvReac Type Severity Reaction Status Date / Time oxycodone AdvReac Unknown GI upset Verified 12/20/23 19:48 Active Medications: Current Medications Acetaminophen (Acetaminophen 325 Mg Tablet) 975 mg PO TID [facility] Last Admin: 12/27/23 08:44 Dose: 975 mg Al Hydroxide/Mg Hydroxide (Magnesium Hydrox/Alum Hydrox 30 Ml Oral.Susp) 30 ml PO Q6H PRN PRN Reason: Heartburn/Nausea Last Admin: 12/24/23 23:40 Dose: 30 ml Albuterol Sulfate (Albuterol Sulfate 90 Mcg 8 Gm Inhaler) 2 puff INHALE RQ4H PRN PRN Reason: Shortness of Breath/Wheezing Albuterol/Ipratropium (Albuterol/Iprat 2.5/0.5mg 3 Ml Ampul.Neb) 3 ml INHALE RQ4H WHILE AWAKE [facility] Stop: 12/28/23 15:59 Albuterol/Ipratropium (Albuterol/Iprat 2.5/0.5mg 3 Ml Ampul.Neb) 3 ml INHALE RQ4H WHILE AWAKE PRN PRN Reason: Shortness of Breath/Wheezing Ascorbic Acid (Ascorbic Acid 250 Mg Tablet) 250 mg PO DAILY [facility] Last Admin: 12/27/23 08:44 Dose: 250 mg Baclofen (Baclofen 10 Mg Tablet) 10 mg PO TID [facility] Last Admin: 12/27/23 08:44 Dose: 10 mg Capsaicin (Capsaicin 0.025% Cream 60 Gm Tube) 1 appl TOPICAL TID PRN; Protocol PRN Reason: Pain, Moderate(Pain Scale 4-6) Last Admin: 12/26/23 08:02 Dose: 1 appl Ferrous Sulfate (Ferrous Sulfate 324 Mg Tablet.Dr) 325 mg PO DAILY [facility] Furosemide (Furosemide 20 Mg Tablet) 20 mg PO DAILY [facility]; Protocol Gabapentin (Gabapentin 400 Mg Capsule) 800 mg PO TID [facility] Last Admin: 12/27/23 08:44 Dose: 800 mg Hydroxyzine HCl (Hydroxyzine Hcl 25 Mg Tablet) 25 mg PO Q6H PRN PRN Reason: Anxiety Last Admin: 12/25/23 23:10 Dose: 25 mg Ibuprofen (Ibuprofen 800 Mg Tablet) 800 mg PO Q8H PRN PRN Reason: mild to moderate pain (1-6) Last Admin: 12/26/23 20:54 Dose: 800 mg Lactase (Lactase Tablet) 1 tab PO TIDWM PRN PRN Reason: Lactose Intolerance Last Admin: 12/25/23 17:40 Dose: 1 tab Lidocaine (Lidocaine 4 % Patch Adh..Patch) 1 patch TRANSDERMA DAILY [facility]; Protocol Last Admin: 12/27/23 08:47 Dose: Not Given Lidocaine (Lidocaine 4 % Patch Adh..Patch) 1 patch TRANSDERMA DAILY [facility]; Protocol Magnesium Hydroxide (Milk Of Magnesia 30 Ml Oral.Susp) 30 ml PO DAILY PRN PRN Reason: Constipation Magnesium Oxide (Magnesium Oxide 400 Mg Tablet) 400 mg PO BEDTIME [facility] Last Admin: 12/26/23 20:54 Dose: 400 mg Nicotine Polacrilex (Nicotine Polacrilex Lozenge 2 Mg Lozenge) 2 mg BUCCAL Q2H PRN PRN Reason: Nicotine Cravings Last Admin: 12/27/23 11:58 Dose: 2 mg Omeprazole (Omeprazole 20 Mg Capsule.Dr) 20 mg PO DAILY@0630 [facility] Last Admin: 12/27/23 06:35 Dose: 20 mg Quetiapine Fumarate (Quetiapine Fumarate 50 Mg Tablet) 50 mg PO Q6H PRN PRN Reason: moderate anxiety/agitation Last Admin: 12/26/23 22:28 Dose: 50 mg Simethicone (Simethicone 80 Mg Tab.Chew) 80 mg PO QIDWMHS [facility] Last Admin: 12/27/23 13:16 Dose: 80 mg Trazodone HCl (Trazodone Hcl 50 Mg Tablet) 50 mg PO BEDTIME MRX1 PRN PRN Reason: Insomnia Last Admin: 12/25/23 23:10 Dose: 50 mg Trazodone HCl (Trazodone Hcl 50 Mg Tablet) 150 mg PO BEDTIME [facility] Last Admin: 12/26/23 22:28 Dose: 150 mg Home Medications ?Medication ?Instructions ?Recorded ?Confirmed ?Last Taken ?Type miscellaneous medical supply #1 ea 01/14/20 06/07/20 Unknown History Physical Exam Vital Signs and Narrative: Vital Signs: Last Vital Signs Temp 97.5 F 12/27/23 07:40 Pulse 82 12/27/23 07:40 Resp 16 12/27/23 07:40 BP 140/85 H 12/27/23 07:40 Pulse Ox 97 12/27/23 07:40 O2 Del Method Room Air 12/27/23 07:40 BMI result Body Mass Index 36.8 General: AOx3, no acute distress Resp: Diffuse expiratory rhonchi CVS: S1, S2, RRR GI: +BS, NT, no distention Skin: Warm, dry Neuro: Cranial nerves II-XII grossly intact bilaterally. Motor grossly intact bilaterally Extremities: 1+ bilateral pitting edema, left worse than right Results Labs 12/20/23 20:11 12/21/23 07:37 Imaging Radiologist's Impressions: Impressions Cervical Spine X-Ray 12/26/23 16:05 IMPRESSION: 1. No acute visible fracture or dislocation. 2. Straightening with slight reversal of the normal cervical curvature. 3. Slight grade 1 anterolisthesis of C2 on C3. 4. Multilevel degenerative changes with multilevel neural foraminal narrowing. 5. Prevertebral soft tissues are mildly prominent greatest at C5-C6, nonspecific. Electronically signed by: Kareem Douglas MD 12/26/2023 05:00 PM EDT RP Venous Duplex 12/26/23 17:18 IMPRESSION: No evidence of deep venous thrombosis involving the bilateral lower extremities. Electronically signed by: Lore Dubon MD 12/26/2023 10:08 PM EDT RP Assessment and Plan (1) Shortness of breath: Status: Acute (2) Lower leg edema: Status: Acute Plan Patient is a 58 male with PMH significant for ?unspecified CHF, COPD, hx of DVT, ANA previously on CPAP, bilateral hip replacement, right knee replacement, polysubstance use disorder, and MDD who is admitted to [facility] unit for increasing depression with SI with plan to jump off a bridge.? Hospitalist consult for SOB and lower extremity edema. SOB Pt complains of SOB x3-4 days, worse with lying flat Hx of COPD, 35+ pack year smoking hx, currently smoking crack cocaine daily Not on home inhalers for a long time Lungs with expiratory rhonchi bilaterally, though not hypoxic Will treat with scheduled duonebs x1 day, duonebs prn thereafter Albuterol rescue inhaler prn Follow up on CXR Lower leg edema and pain Has noticed increased lower leg swelling x3-4 days Reports hx of CHF and previously on home Lasix 5 years ago Pt with 1+ bilateral pitting edema of lower extremities, left slightly worse than right Venous duplex of bilateral lower extremities yesterday negative DVT Will start patient on furosemide 20 mg p.o. daily Follow CXR for evidence of pulmonary edema and/or pleural effusions ANA Reports being on CPAP years ago Currently homeless without access to machine Reports SOB and orthopnea at night In patient sleep study conducted last night, follow results Neck, back, and arm pain and numbness/tingling Plan as per neurology, seen 12/26/2023 Thank you for allowing us to participate in the care of this patient. Signing off at this time. Please re-consult if any acute complaints or issues arise.
[2023-12-27 14:23] VITALS: BP 137/60
[2023-12-27] MEDS: Furosemide 20 MG TABLET PO (14:23)
[2023-12-27 19:32] VITALS: BP 120/57; PULSE 81; RESP 16; TEMP 36.6; O2SAT 96
[2023-12-27] MEDS: Albuterol/Iprat 2.5/0.5MG 3 ML AMPUL.NEB INHALE (20:15)
[2023-12-27 20:18] VITALS: PULSE 88; RESP 18; O2SAT 95
[2023-12-27] MEDS: traZODone HCL 50 MG TABLET 150 MG PO (20:45)
[2023-12-27] MEDS: Magnesium Oxide 400 MG TABLET PO (20:46)
[2023-12-27] MEDS: Ibuprofen 800 MG TABLET PO (20:47)
[2023-12-27] MEDS: QUEtiapine Fumarate 50 MG TABLET PO (20:48)
[2023-12-27] MEDS: traZODone HCL 50 MG TABLET PO (20:53)
[2023-12-28] MEDS: traZODone HCL 50 MG TABLET PO ×2 (01:54→22:16)
[2023-12-28] MEDS: Albuterol Sulfate 90 MCG 8 GM INHALER 2 PUFF INHALE ×2 (01:57→10:48)
[2023-12-28] MEDS: Nicotine Polacrilex Lozenge 2 MG LOZENGE BUCCAL ×7 (06:03→20:36)
[2023-12-28] MEDS: Omeprazole 20 MG CAPSULE.DR PO (06:17)
[2023-12-28 07:43] VITALS: BP 117/54; PULSE 72; RESP 16; TEMP 36.4; O2SAT 96
[2023-12-28] MEDS: Simethicone 80 MG TAB.CHEW PO ×4 (08:12→21:18)
[2023-12-28] MEDS: Ascorbic Acid 250 MG TABLET PO (08:12)
[2023-12-28] MEDS: Furosemide 20 MG TABLET PO (08:12)
[2023-12-28] MEDS: Acetaminophen 325 MG TABLET 975 MG PO ×3 (08:13→21:18)
[2023-12-28] MEDS: Baclofen 10 MG TABLET PO ×3 (08:13→21:19)
[2023-12-28] MEDS: Gabapentin 400 MG CAPSULE 800 MG PO ×3 (08:13→21:43)
[2023-12-28] MEDS: Ferrous Sulfate 324 MG TABLET.DR 325 MG PO (08:13)
[2023-12-28] MEDS: Lidocaine 4 % Patch ADH..PATCH 1 PATCH TRANSDERMA ×2 (08:18→08:20)
--- NOTE | 2023-12-28 09:28 | PC.RT ---
RT in to assess pt for ordered svn. Pt awake and alert sitting up eating breakfast. Denies and sob at this time. LS auscaltated as clear bilat, diminished in bases, spo2 on ra 97%. Pt sates mdi use in the past prn. Provider notified.
--- NOTE | 2023-12-28 09:59 | P.PNPSI_ITS ---
Subjective Subjective Date of Service: 12/28/23 Reason For Visit: SI Subjective Notes: Conditional Voluntary Interim History: Pt reports increased anxious mood. He reports thoughts of wanting to hurt himself and OD on heroin. He is concern about his health and reports difficulty breathing at night. Bilat edema with no signs of infection. DuoNebs ordered yesterday by PA, but respiratory therapist report not needed. He does have some cough, worse at night. O2sat >98% Review of Systems Review of Systems SOB Nonproductive cough Orthopnea Lower leg edema Left calf pain Neck pain radiating down upper extremities, left worse than right Yes all other systems are reviewed and are negative Constitutional: Reports as per HPI, Reports no additional constitutional complaints, Denies chills, Denies fever(s) and Denies night sweats Eyes: Reports no additional eye complaints, Denies blurry vision, Denies change in vision, Denies diplopia, Denies eye discharge, Denies loss of vision and Denies eye pain Denies dizziness Cardiovascular: Reports no additional cardiovascular complaints, Denies chest pain, Denies lightheadedness, Denies Loss of Consciousness and Denies dyspnea Respiratory: Reports no additional respiratory complaints and Denies dyspnea Gastrointestinal: Reports no additional gastrointestinal complaints, Denies abdominal pain, Denies melena, Denies hematochezia, Denies change in bowel habits and Denies change in stool character Genitourinary: Reports no additional male genitourinary complaints, Denies hematuria, Denies oliguria, Denies difficulty urinating, Denies dysuria, Denies urinary frequency, Denies urinary hesitancy, Denies urinary incontinence and Denies urinary urgency Musculoskeletal: Reports no additional musculoskeletal complaints, Denies numbness and Denies tingling Denies dizziness, Denies loss of vision, Denies numbness and Denies tingling Psychiatric: Reports no additional psychiatric complaints, Denies homicidal ideation and Reports suicidal ideation Endocrine: Reports no additional endocrine complaints Hematologic/Lymphatic: Reports no additional hematologic/lymphatic complaints Allergic/Immunologic: Reports no additional allergic/immunologic complaints Mental Status Exam Mental Status Exam Patient Appearance: Appropriate Level of Consciousness: Awake, Appropriate and Alert Patient Behavior: Appropriate and Talkative Mood Description: Calm, Euphoric and Relaxed Affect Description: Calm Speech Pattern: Clear Diagnostics Vital Signs (24Hr): Vital Signs - 24 hr 12/27/23 14:23 12/27/23 19:32 12/27/23 20:18 Temperature 97.8 F Pulse Rate 81 88 Respiratory Rate 16 18 Blood Pressure 137/60 120/57 L Pulse Oximetry 96 Oxygen Delivery Method Room Air 12/28/23 07:43 Temperature 97.5 F Pulse Rate 72 Respiratory Rate 16 Blood Pressure 117/54 L Pulse Oximetry 96 Oxygen Delivery Method Room Air BMI result Body Mass Index 36.8 Labs 12/20/23 20:11 12/21/23 07:37 Imaging Radiology Impressions: ITS Impressions KUB X-Ray 12/24/23 14:20 IMPRESSION: No evidence of bowel obstruction. Mild to moderate stool present in the colon. Electronically signed by: Pablo Montelongo MD 12/24/2023 06:52 PM EDT RP Cervical Spine X-Ray 12/26/23 16:05 IMPRESSION: 1. No acute visible fracture or dislocation. 2. Straightening with slight reversal of the normal cervical curvature. 3. Slight grade 1 anterolisthesis of C2 on C3. 4. Multilevel degenerative changes with multilevel neural foraminal narrowing. 5. Prevertebral soft tissues are mildly prominent greatest at C5-C6, nonspecific. Electronically signed by: Kareem Douglas MD 12/26/2023 05:00 PM EDT RP Venous Duplex 12/26/23 17:18 IMPRESSION: No evidence of deep venous thrombosis involving the bilateral lower extremities. Electronically signed by: Lore Dubon MD 12/26/2023 10:08 PM EDT RP Chest X-Ray 12/27/23 13:40 IMPRESSION: Pulmonary venous congestion without appreciable pulmonary edema. Electronically signed by: Mynor Rivas MD 12/27/2023 04:52 PM EDT RP Medications Medications Current Medications Acetaminophen (Acetaminophen 325 Mg Tablet) 975 mg PO TID [facility] Last Admin: 12/28/23 08:13 Dose: 975 mg Al Hydroxide/Mg Hydroxide (Magnesium Hydrox/Alum Hydrox 30 Ml Oral.Susp) 30 ml PO Q6H PRN PRN Reason: Heartburn/Nausea Last Admin: 12/24/23 23:40 Dose: 30 ml Albuterol Sulfate (Albuterol Sulfate 90 Mcg 8 Gm Inhaler) 2 puff INHALE RQ4H PRN PRN Reason: Shortness of Breath/Wheezing Last Admin: 12/28/23 01:57 Dose: 2 puff Albuterol/Ipratropium (Albuterol/Iprat 2.5/0.5mg 3 Ml Ampul.Neb) 3 ml INHALE RQ4H WHILE AWAKE [facility] Stop: 12/28/23 15:59 Last Admin: 12/28/23 09:28 Dose: Not Given Albuterol/Ipratropium (Albuterol/Iprat 2.5/0.5mg 3 Ml Ampul.Neb) 3 ml INHALE RQ4H WHILE AWAKE PRN PRN Reason: Shortness of Breath/Wheezing Ascorbic Acid (Ascorbic Acid 250 Mg Tablet) 250 mg PO DAILY [facility] Last Admin: 12/28/23 08:12 Dose: 250 mg Baclofen (Baclofen 10 Mg Tablet) 10 mg PO TID [facility] Last Admin: 12/28/23 08:13 Dose: 10 mg Capsaicin (Capsaicin 0.025% Cream 60 Gm Tube) 1 appl TOPICAL TID PRN; Protocol PRN Reason: Pain, Moderate(Pain Scale 4-6) Last Admin: 12/26/23 08:02 Dose: 1 appl Ferrous Sulfate (Ferrous Sulfate 324 Mg Tablet.Dr) 324 mg PO DAILY [facility] Last Admin: 12/28/23 09:30 Dose: Not Given Furosemide (Furosemide 20 Mg Tablet) 20 mg PO DAILY [facility]; Protocol Last Admin: 12/28/23 08:12 Dose: 20 mg Gabapentin (Gabapentin 400 Mg Capsule) 800 mg PO TID [facility] Last Admin: 12/28/23 08:13 Dose: 800 mg Hydroxyzine HCl (Hydroxyzine Hcl 25 Mg Tablet) 25 mg PO Q6H PRN PRN Reason: Anxiety Last Admin: 12/25/23 23:10 Dose: 25 mg Ibuprofen (Ibuprofen 800 Mg Tablet) 800 mg PO Q8H PRN PRN Reason: mild to moderate pain (1-6) Last Admin: 12/27/23 20:47 Dose: 800 mg Lactase (Lactase Tablet) 1 tab PO TIDWM PRN PRN Reason: Lactose Intolerance Last Admin: 12/25/23 17:40 Dose: 1 tab Lidocaine (Lidocaine 4 % Patch Adh..Patch) 1 patch TRANSDERMA DAILY [facility]; Protocol Last Admin: 12/28/23 08:18 Dose: 1 patch Lidocaine (Lidocaine 4 % Patch Adh..Patch) 1 patch TRANSDERMA DAILY [facility]; Protocol Last Admin: 12/28/23 08:20 Dose: 1 patch Magnesium Hydroxide (Milk Of Magnesia 30 Ml Oral.Susp) 30 ml PO DAILY PRN PRN Reason: Constipation Magnesium Oxide (Magnesium Oxide 400 Mg Tablet) 400 mg PO BEDTIME [facility] Last Admin: 12/27/23 20:46 Dose: 400 mg Nicotine Polacrilex (Nicotine Polacrilex Lozenge 2 Mg Lozenge) 2 mg BUCCAL Q2H PRN PRN Reason: Nicotine Cravings Last Admin: 12/28/23 09:57 Dose: 2 mg Omeprazole (Omeprazole 20 Mg Capsule.Dr) 20 mg PO DAILY@0630 [facility] Last Admin: 12/28/23 06:17 Dose: 20 mg Quetiapine Fumarate (Quetiapine Fumarate 50 Mg Tablet) 50 mg PO Q6H PRN PRN Reason: moderate anxiety/agitation Last Admin: 12/27/23 20:48 Dose: 50 mg Simethicone (Simethicone 80 Mg Tab.Chew) 80 mg PO QIDWMHS [facility] Last Admin: 12/28/23 08:12 Dose: 80 mg Trazodone HCl (Trazodone Hcl 50 Mg Tablet) 50 mg PO BEDTIME MRX1 PRN PRN Reason: Insomnia Last Admin: 12/28/23 01:54 Dose: 50 mg Trazodone HCl (Trazodone Hcl 50 Mg Tablet) 150 mg PO BEDTIME [facility] Last Admin: 12/27/23 20:45 Dose: 150 mg Allergies Allergies Allergy/AdvReac Type Severity Reaction Status Date / Time oxycodone AdvReac Unknown GI upset Verified 12/20/23 19:48 Assessment & Plan Assessment & Plan (1) MDD (major depressive disorder): Qualifiers: Active/Remission status: currently active Major depression episode severity: moderate Major depression recurrence: single episode Qualified Code(s): F32.1 - Major depressive disorder, single episode, moderate Status: Acute Code(s): F32.9 - Major depressive disorder, single episode, unspecified (2) Polysubstance use disorder: Status: Acute Code(s): F19.90 - Other psychoactive substance use, unspecified, uncomplicated Plan Presents with MDD and polysubstance use disorder- alcohol and cocaine in context of unhoused, no services. Wants to start meds and substance rehab services. No indication for antipsychotics as hallucinations less intense/resolved and are substance related, so resolving. Will start zoloft and trazodone and CIWA 12/22/2023: Overall no changes. 12/22- baclofen for cocaine cravings and muscle aches. increase trazodone 100mg po qhs. 12/23 kub for constipation, seroquel prn for anxiety 12/24 add clonidine 0.1mg po BID.avoid benzodiazepines. sleep study r/o ANA, desat at night. 12/25 ordered doppler bilat edema, painful calf. hx of DVT. increase trazodone 150mg po qhs. 12/27 continue tx. Reason for continued inpatient stay Substantial Risk for: inability to function Time Spent With Patient Time: Total time managing care of this patient today ____ minutes.
[2023-12-28] MEDS: Capsaicin 0.025% Cream 60 GM TUBE 1 APPL TOPICAL (10:48)
[2023-12-28] MEDS: Magnesium Hydrox/Alum Hydrox 30 ML ORAL.SUSP PO (15:20)
--- NOTE | 2023-12-28 18:16 | PC.NURSE ---
I have contacted respiratory therapy and the QB Dr Schwarz regarding the [facility] [place] standing order for Chuy. Respiratory is not returning my call. Dr Schwarz texted back that her would look into the order.
[2023-12-28 19:15] VITALS: BP 148/70; PULSE 79; RESP 16; TEMP 37; O2SAT 96
[2023-12-28 20:52] VITALS: PULSE 86; RESP 16; O2SAT 95
[2023-12-28] MEDS: Albuterol/Iprat 2.5/0.5MG 3 ML AMPUL.NEB INHALE (20:52)
[2023-12-28] MEDS: Magnesium Oxide 400 MG TABLET PO (21:18)
[2023-12-28] MEDS: Ibuprofen 800 MG TABLET PO (21:21)
[2023-12-28] MEDS: traZODone HCL 50 MG TABLET 150 MG PO (22:15)
[2023-12-28] MEDS: QUEtiapine Fumarate 50 MG TABLET PO (22:15)
[2023-12-29] MEDS: traZODone HCL 50 MG TABLET PO ×2 (03:07→23:02)
[2023-12-29] MEDS: Nicotine Polacrilex Lozenge 2 MG LOZENGE BUCCAL ×5 (03:07→21:11)
[2023-12-29 07:15] VITALS: BP 125/58; PULSE 69; RESP 16; TEMP 36.1; O2SAT 96
[2023-12-29 08:47] VITALS: BP 125/58
[2023-12-29] MEDS: Gabapentin 400 MG CAPSULE 800 MG PO ×3 (08:47→20:20)
[2023-12-29] MEDS: Furosemide 20 MG TABLET PO (08:47)
[2023-12-29] MEDS: Simethicone 80 MG TAB.CHEW PO ×4 (08:47→20:22)
[2023-12-29] MEDS: Ascorbic Acid 250 MG TABLET PO (08:48)
[2023-12-29] MEDS: Acetaminophen 325 MG TABLET 975 MG PO ×3 (08:48→20:20)
[2023-12-29] MEDS: Baclofen 10 MG TABLET PO ×3 (08:48→20:22)
[2023-12-29] MEDS: Ferrous Sulfate 324 MG TABLET.DR PO (08:50)
[2023-12-29] MEDS: Albuterol Sulfate 90 MCG 8 GM INHALER 2 PUFF INHALE (10:11)
--- NOTE | 2023-12-29 11:58 | P.PNPSI_ITS ---
Subjective Subjective Date of Service: 12/29/23 Reason For Visit: SI Subjective Notes: Conditional Voluntary Interim History: Pt reports increased anxious mood. He reports thoughts of wanting to hurt himself and OD on heroin. He had difficulty sleeping last night, coughing most of the night. less when awake. Bilat edema without signs of infection, doppler negative for DVT. continue lassix. Review of Systems Review of Systems SOB Nonproductive cough Orthopnea Lower leg edema Left calf pain Neck pain radiating down upper extremities, left worse than right Yes all other systems are reviewed and are negative Constitutional: Reports as per HPI, Reports no additional constitutional complaints, Denies chills, Denies fever(s) and Denies night sweats Eyes: Reports no additional eye complaints, Denies blurry vision, Denies change in vision, Denies diplopia, Denies eye discharge, Denies loss of vision and Denies eye pain Denies dizziness Cardiovascular: Reports no additional cardiovascular complaints, Denies chest pain, Denies lightheadedness, Denies Loss of Consciousness and Denies dyspnea Respiratory: Reports no additional respiratory complaints and Denies dyspnea Gastrointestinal: Reports no additional gastrointestinal complaints, Denies abdominal pain, Denies melena, Denies hematochezia, Denies change in bowel habits and Denies change in stool character Genitourinary: Reports no additional male genitourinary complaints, Denies hematuria, Denies oliguria, Denies difficulty urinating, Denies dysuria, Denies urinary frequency, Denies urinary hesitancy, Denies urinary incontinence and Denies urinary urgency Musculoskeletal: Reports no additional musculoskeletal complaints, Denies numbness and Denies tingling Denies dizziness, Denies loss of vision, Denies numbness and Denies tingling Psychiatric: Reports no additional psychiatric complaints, Denies homicidal ideation and Reports suicidal ideation Endocrine: Reports no additional endocrine complaints Hematologic/Lymphatic: Reports no additional hematologic/lymphatic complaints Allergic/Immunologic: Reports no additional allergic/immunologic complaints Mental Status Exam Mental Status Exam Narrative: pleasant. Age. Hospital clothing. Fair self-care. Organized. less depressed. denies SI. No current hallucinations no paranoia. Feels safe. No HI. Insight judgment fair Patient Appearance: Appropriate Level of Consciousness: Awake, Appropriate and Alert Patient Behavior: Appropriate and Talkative Mood Description: Calm, Euphoric and Relaxed Affect Description: Calm Speech Pattern: Clear Diagnostics Vital Signs (24Hr): Vital Signs - 24 hr 12/28/23 19:15 12/28/23 20:52 12/29/23 07:15 Temperature 98.6 F 97 F Pulse Rate 79 86 69 Respiratory Rate 16 16 16 Blood Pressure 148/70 H 125/58 L Pulse Oximetry 96 96 Oxygen Delivery Method Room Air Room Air 12/29/23 08:47 Temperature Pulse Rate Respiratory Rate Blood Pressure 125/58 L Pulse Oximetry Oxygen Delivery Method BMI result Body Mass Index 36.8 Labs 12/20/23 20:11 12/21/23 07:37 Imaging Radiology Impressions: ITS Impressions KUB X-Ray 12/24/23 14:20 IMPRESSION: No evidence of bowel obstruction. Mild to moderate stool present in the colon. Electronically signed by: Pablo Montelongo MD 12/24/2023 06:52 PM EDT RP Cervical Spine X-Ray 12/26/23 16:05 IMPRESSION: 1. No acute visible fracture or dislocation. 2. Straightening with slight reversal of the normal cervical curvature. 3. Slight grade 1 anterolisthesis of C2 on C3. 4. Multilevel degenerative changes with multilevel neural foraminal narrowing. 5. Prevertebral soft tissues are mildly prominent greatest at C5-C6, nonspecific. Electronically signed by: Kareem Douglas MD 12/26/2023 05:00 PM EDT RP Venous Duplex 12/26/23 17:18 IMPRESSION: No evidence of deep venous thrombosis involving the bilateral lower extremities. Electronically signed by: Lore Duobn MD 12/26/2023 10:08 PM EDT RP Chest X-Ray 12/27/23 13:40 IMPRESSION: Pulmonary venous congestion without appreciable pulmonary edema. Electronically signed by: Mynor Rivas MD 12/27/2023 04:52 PM EDT RP Medications Medications Current Medications Acetaminophen (Acetaminophen 325 Mg Tablet) 975 mg PO TID [facility] Last Admin: 12/29/23 08:48 Dose: 975 mg Al Hydroxide/Mg Hydroxide (Magnesium Hydrox/Alum Hydrox 30 Ml Oral.Susp) 30 ml PO Q6H PRN PRN Reason: Heartburn/Nausea Last Admin: 12/28/23 15:20 Dose: 30 ml Albuterol Sulfate (Albuterol Sulfate 90 Mcg 8 Gm Inhaler) 2 puff INHALE RQ4H PRN PRN Reason: Shortness of Breath/Wheezing Last Admin: 12/29/23 10:11 Dose: 2 puff Albuterol/Ipratropium (Albuterol/Iprat 2.5/0.5mg 3 Ml Ampul.Neb) 3 ml INHALE RQ4H WHILE AWAKE PRN PRN Reason: Shortness of Breath/Wheezing Last Admin: 12/28/23 20:52 Dose: 3 ml Ascorbic Acid (Ascorbic Acid 250 Mg Tablet) 250 mg PO DAILY [facility] Last Admin: 12/29/23 08:48 Dose: 250 mg Baclofen (Baclofen 10 Mg Tablet) 10 mg PO TID [facility] Last Admin: 12/29/23 08:48 Dose: 10 mg Capsaicin (Capsaicin 0.025% Cream 60 Gm Tube) 1 appl TOPICAL TID PRN; Protocol PRN Reason: Pain, Moderate(Pain Scale 4-6) Last Admin: 12/28/23 10:48 Dose: 1 appl Ferrous Sulfate (Ferrous Sulfate 324 Mg Tablet.Dr) 324 mg PO DAILY [facility] Last Admin: 12/29/23 08:50 Dose: 324 mg Furosemide (Furosemide 20 Mg Tablet) 20 mg PO DAILY [facility]; Protocol Last Admin: 12/29/23 08:47 Dose: 20 mg Gabapentin (Gabapentin 400 Mg Capsule) 800 mg PO TID [facility] Last Admin: 12/29/23 08:47 Dose: 800 mg Guaifenesin/Dextromethorphan (Guaifenesin Dm 100/10/5 Ml 5 Ml Syrup) 5 ml PO Q4H PRN PRN Reason: Cough Hydroxyzine HCl (Hydroxyzine Hcl 25 Mg Tablet) 25 mg PO Q6H PRN PRN Reason: Anxiety Last Admin: 12/25/23 23:10 Dose: 25 mg Ibuprofen (Ibuprofen 800 Mg Tablet) 800 mg PO Q8H PRN PRN Reason: mild to moderate pain (1-6) Last Admin: 12/28/23 21:21 Dose: 800 mg Lactase (Lactase Tablet) 1 tab PO TIDWM PRN PRN Reason: Lactose Intolerance Last Admin: 12/25/23 17:40 Dose: 1 tab Lidocaine (Lidocaine 4 % Patch Adh..Patch) 1 patch TRANSDERMA DAILY [facility]; Protocol Last Admin: 12/29/23 08:49 Dose: Not Given Lidocaine (Lidocaine 4 % Patch Adh..Patch) 1 patch TRANSDERMA DAILY [facility]; Protocol Last Admin: 12/29/23 08:50 Dose: Not Given Magnesium Hydroxide (Milk Of Magnesia 30 Ml Oral.Susp) 30 ml PO DAILY PRN PRN Reason: Constipation Magnesium Oxide (Magnesium Oxide 400 Mg Tablet) 400 mg PO BEDTIME [facility] Last Admin: 12/28/23 21:18 Dose: 400 mg Nicotine Polacrilex (Nicotine Polacrilex Lozenge 2 Mg Lozenge) 2 mg BUCCAL Q2H PRN PRN Reason: Nicotine Cravings Last Admin: 12/29/23 09:57 Dose: 2 mg Omeprazole (Omeprazole 20 Mg Capsule.Dr) 20 mg PO DAILY@0630 [facility] Last Admin: 12/28/23 06:17 Dose: 20 mg Quetiapine Fumarate (Quetiapine Fumarate 50 Mg Tablet) 50 mg PO Q6H PRN PRN Reason: moderate anxiety/agitation Last Admin: 12/28/23 22:15 Dose: 50 mg Simethicone (Simethicone 80 Mg Tab.Chew) 80 mg PO QIDWMHS [facility] Last Admin: 12/29/23 08:47 Dose: 80 mg Trazodone HCl (Trazodone Hcl 50 Mg Tablet) 50 mg PO BEDTIME MRX1 PRN PRN Reason: Insomnia Last Admin: 12/29/23 03:07 Dose: 50 mg Trazodone HCl (Trazodone Hcl 50 Mg Tablet) 150 mg PO BEDTIME [facility] Last Admin: 12/28/23 22:15 Dose: 150 mg Allergies Allergies Allergy/AdvReac Type Severity Reaction Status Date / Time oxycodone AdvReac Unknown GI upset Verified 12/20/23 19:48 Assessment & Plan Assessment & Plan (1) MDD (major depressive disorder): Qualifiers: Major depression recurrence: single episode Active/Remission status: c urrently active Major depression episode severity: moderate Qualified Code(s): F32.1 - Major depressive disorder, single episode, moderate Status: Acute Code(s): F32.9 - Major depressive disorder, single episode, unspecified (2) Polysubstance use disorder: Status: Acute Code(s): F19.90 - Other psychoactive substance use, unspecified, uncomplicated Plan Presents with MDD and polysubstance use disorder- alcohol and cocaine in context of unhoused, no services. Wants to start meds and substance rehab services. No indication for antipsychotics as hallucinations less intense/resolved and are substance related, so resolving. Will start zoloft and trazodone and CIWA 12/22/2023: Overall no changes. 12/22- baclofen for cocaine cravings and muscle aches. increase trazodone 100mg po qhs. 12/23 kub for constipation, seroquel prn for anxiety 12/24 add clonidine 0.1mg po BID.avoid benzodiazepines. sleep study r/o ANA, desat at night. 12/25 ordered doppler bilat edema, painful calf. hx of DVT. increase trazodone 150mg po qhs. 12/27 continue tx. 12/27 cough syrup orderd. rsv/flu/covid ordered. afebrile, no significant respiratory distress. Reason for continued inpatient stay Substantial Risk for: inability to function Time Spent With Patient Time: Total time managing care of this patient today ____ minutes.
[2023-12-29 14:44] LABS: Influenza A PCR NEGATIVE (Negative); Influenza B PCR NEGATIVE (Negative); Resp Syncy Virus RNA Qual PCR NEGATIVE (Negative); SARS COV2 PCR INHOUSE NEGATIVE (Negative)
[2023-12-29] MEDS: Capsaicin 0.025% Cream 60 GM TUBE 1 APPL TOPICAL (19:57)
[2023-12-29 20:00] VITALS: BP 138/59; PULSE 79; RESP 16; TEMP 36.2; O2SAT 95
[2023-12-29] MEDS: Magnesium Oxide 400 MG TABLET PO (20:21)
[2023-12-29] MEDS: Albuterol/Iprat 2.5/0.5MG 3 ML AMPUL.NEB INHALE (20:35)
[2023-12-29 20:36] VITALS: PULSE 85; RESP 18; O2SAT 95
[2023-12-29] MEDS: QUEtiapine Fumarate 50 MG TABLET PO (23:02)
[2023-12-29] MEDS: hydrOXYzine HCL 25 MG TABLET PO (23:02)
[2023-12-29] MEDS: traZODone HCL 50 MG TABLET 150 MG PO (23:09)
--- NOTE | 2023-12-30 00:29 | PC.NURSE ---
Pt was seen by the respiratory therapist and administered nebulizer/duoneb for difficulty breathing this evening.
[2023-12-30] MEDS: Omeprazole 20 MG CAPSULE.DR PO (06:30)
[2023-12-30] MEDS: Capsaicin 0.025% Cream 60 GM TUBE 1 APPL TOPICAL (07:06)
[2023-12-30 07:44] VITALS: BP 140/63; PULSE 76; RESP 18; TEMP 36.4; O2SAT 95
[2023-12-30 08:54] VITALS: BP 140/63
[2023-12-30] MEDS: Ascorbic Acid 250 MG TABLET PO (08:54)
[2023-12-30] MEDS: Acetaminophen 325 MG TABLET 975 MG PO (08:54)
[2023-12-30] MEDS: Baclofen 10 MG TABLET PO (08:54)
[2023-12-30] MEDS: Furosemide 40 MG TABLET PO (08:54)
[2023-12-30] MEDS: Gabapentin 400 MG CAPSULE 800 MG PO (08:55)
[2023-12-30] MEDS: Ferrous Sulfate 324 MG TABLET.DR PO (08:55)
[2023-12-30] MEDS: Simethicone 80 MG TAB.CHEW PO ×2 (08:55→11:01)
[2023-12-30] MEDS: Nicotine Polacrilex Lozenge 2 MG LOZENGE BUCCAL (11:01)
--- NOTE | 2023-12-30 11:29 | P.DS_ITS ---
DS: Providers Provider Date of Service: 12/30/23 Date of admission: 12/20/23 22:37 Primary care physician: Unknown Physician Consults: 12/21/23 00:49 Addiction Medicine Stat Consulting Provider: Addiction Covering Reason for consultation: Alcohol withdrawal Has provider been notified: Yes 12/24/23 13:57 Consult to Neurology Routine Consulting Provider: [facility] Reason for consultation: left hand numbness after shoulder trauma Has provider been notified: Yes 12/27/23 12:56 Consult to Hospitalist Routine Comment: Consulting Provider: Hospitalist Reason For Exam: HX DVT SOB COPD HX CHF? orthopnea DS: Diagnosis Discharge Diagnosis (1) MDD (major depressive disorder): Status: Acute (2) Polysubstance use disorder: Status: Acute DS: Medications Discharge Medications Home Medications: Previous Rx's ?Medication ?Instructions ?Recorded albuterol sulfate 90 mcg/actuation 2 puff inhalation RQ4H PRN 12/30/23 aerosol inhaler (Ventolin HFA) Shortness Of Breath/Wheezing #6.7 grams ascorbic acid (vitamin C) 250 mg 250 mg PO DAILY #30 tabs 12/30/23 tablet baclofen 10 mg tablet 10 mg PO TID #45 tabs 12/30/23 ferrous sulfate 324 mg (65 mg 324 mg PO DAILY #30 tabs 12/30/23 iron) tablet,delayed release furosemide 40 mg tablet 40 mg PO DAILY #30 tabs 12/30/23 gabapentin 800 mg tablet 800 mg PO TID #90 tabs 12/30/23 hydroxyzine HCl 25 mg tablet 25 mg PO TID PRN Anxiety #90 tabs 12/30/23 omeprazole 20 mg capsule,delayed 20 mg PO DAILY@0630 #30 caps 12/30/23 release simethicone 80 mg chewable tablet 80 mg PO QIDWMHS #120 tabs 12/30/23 (Gas Relief (simethicone)) trazodone 150 mg tablet 150 mg PO BEDTIME #30 tabs 12/30/23 Mental Status Exam Mental Status Exam Patient Appearance: Appropriate Patient Orientation: Person, Place, Time and Situation Level of Consciousness: Awake, Appropriate and Alert Patient Behavior: Appropriate and Talkative Mood Description: Calm Affect Description: Calm Speech Pattern: Clear and Spontaneous Speech Hallucinations: None Delusions: Not Present Thought Process: Intact Thought Content: positive for Intact Judgement: Poor Data Data Completed and Pending Completed studies during hospitalization [Text1]: 12/23/23 12/29/23 12:44 13:45 Iron 19 L TIBC 315 % Saturation 6 L Unsat Iron Binding 296 Influenza Type A (PCR) NEGATIVE Influenza Type B (PCR) NEGATIVE RSV RNA Qual (PCR) NEGATIVE SARS-CoV-2 RNA (RT-PCR) NEGATIVE Imaging Diagnostic Imaging Impressions KUB X-Ray 12/24/23 14:20 IMPRESSION: No evidence of bowel obstruction. Mild to moderate stool present in the colon. Electronically signed by: Pablo Montelongo MD 12/24/2023 06:52 PM EDT RP Cervical Spine X-Ray 12/26/23 16:05 IMPRESSION: 1. No acute visible fracture or dislocation. 2. Straightening with slight reversal of the normal cervical curvature. 3. Slight grade 1 anterolisthesis of C2 on C3. 4. Multilevel degenerative changes with multilevel neural foraminal narrowing. 5. Prevertebral soft tissues are mildly prominent greatest at C5-C6, nonspecific. Electronically signed by: Kareem Douglas MD 12/26/2023 05:00 PM EDT RP Venous Duplex 12/26/23 17:18 IMPRESSION: No evidence of deep venous thrombosis involving the bilateral lower extremities. Electronically signed by: Lore Dubon MD 12/26/2023 10:08 PM EDT RP Chest X-Ray 12/27/23 13:40 IMPRESSION: Pulmonary venous congestion without appreciable pulmonary edema. Electronically signed by: Mynor Rivas MD 12/27/2023 04:52 PM EDT RP DS: Summary Hospital Course Hospital Course: met patient. Discussed nursing. Has been in room, largely isolative. Patient reports being depressed, suicidal and voices. Sleep energy appetite disturbed. non command voices. Having thoughts of jumping bridge. Recently relapsed cocaine. Has been housed [facility] since October. Reports being very motivated substance rehab services. It also been drinking 2 to 6 beers a day inpatient. Longest sobriety 1 year 4 years ago reports this also in the context substance rehab supports reports his main support is his girlfriend of a few months, who also is struggling with substance use disorder also seeking mental health substance rehab services. Past Psychiatric History: Does not have psychiatric services. Last attended [facility] 04/03/2023. Last inpatient episode June of this year with similar circumstances. Reports not psychotic hallucinating is recently substances. History of suicidal ideation. No history of suicide attempts. Can not remember Medications from the past. Medical Evaluation Reviewed: Yes HOSPITAL COURSE On the unit, pt was admitted on a CV and placed on 15 minutes checks for safety. Pt presented with several psychosocial stressors including lack of stable housing, financial problems, stress related with partner also having substance use issues. However, he presented as future oriented and motivated to continue substance use tx and mental health treatment. He initially was hesitant about starting an antidepressant but later agreed to try sertraline. He was sleeping most of the time but noted periods of apnea. He needs to follow up with PCP for sleep study as well as primary care for chronic conditions which he has not taken care of for few years. He was visible on the unit, social with select peers. He was seen smiling and socializing. He was given narcan at times of discharge. Status at Discharge Cognitive/behavioral status at discharge: Pt with bright, non labile affect. No SI/HI. No VH/AH. No delusions. Sleeping on and off due to sleep apnea and cough. No aggression towards self or others. Functional status at discharge: independent ambulation Overall status at discharge: patient is progressing back to baseline Time Spent with Patient Time attestation: Total time managing care of this patient today __35__ minutes. Time spent: Greater than 30 minutes Discharge Plan Discharge Anticipated Discharge Date/Time: 12/30/23 11:03 Patient Disposition: Home, Self-Care Discharge Diagnosis: MDD, recurrent, moderate Cocaine use disorder Opioid Use disorder in early remission [facility]: [facility]: [facility] [Other] - 1 Week (You can walk-in anytime to complete an intake to request outpatient mental health services Saturday through Saturday 8am-8pm or Saturday and Saturday 9am-5pm. You can also call the above number 05/11. ) [facility] [Other] - 1 Week (You can call the above number, manager reimbursement around 8-8:30am is best, to ask for assistance in locating a care home. They manage the [facility] care home in [place] as well. You can also walk-in at the above address) [facility]: [facility] [Other] - 1 Week (You can line up to get a bed anytime after 3pm; the closer to 3pm the better ) [facility]: [facility] [Other] - 1 Week (You can either call to ask if there is a bed or line up starting at 2:30pm; there is also a resource center (8am to 4pm M-F) where you can walk in to ask for help in getting into a care home ) Manuel Foy PA-C [[facility]ician [facility] Compliance Specialist] - 1 Week (Your primary care physician Dr. Foy's office will be contacting you to schedule your follow up appt. Dr. Foy's fax tn is [phone]) Marilu Tse PA-C [Physician [employer] Compliance Specialist] - 01/09/24 2:30 pm (Initial appointment 01/09/24 @ 14:30. Actual D/C Follow-up appt is 2023 @ 13:30. ) Discharge Medications: New baclofen 10 mg Tablet 10 mg PO TID Qty: 45 0RF albuterol sulfate [Ventolin HFA] 90 mcg/actuation Hfa Aerosol Inhaler 2 puff inhalation RQ4H PRN (Reason: Shortness Of Breath/Wheezing) Qty: 6.7 0RF ferrous sulfate 324 mg (65 mg iron) Tablet,Delayed Release (Dr/Ec) 324 mg PO DAILY Qty: 30 0RF gabapentin 800 mg tablet 800 mg PO TID Qty: 90 0RF hydroxyzine HCl 25 mg Tablet 25 mg PO TID PRN (Reason: Anxiety) Qty: 90 0RF trazodone 150 mg tablet 150 mg PO BEDTIME Qty: 30 0RF furosemide 40 mg Tablet 40 mg PO DAILY Qty: 30 0RF Protocol: Hold for SBP< HOLD for SBP < : 90 ascorbic acid (vitamin C) 250 mg Tablet 250 mg PO DAILY Qty: 30 0RF omeprazole 20 mg Capsule,Delayed Release(Dr/Ec) 20 mg PO DAILY@0630 Qty: 30 0RF simethicone [Gas Relief (simethicone)] 80 mg Tablet,Chewable 80 mg PO QIDWMHS Qty: 120 0RF sertraline 50 mg tablet 50 mg PO DAILY Qty: 30 0RF Discontinued gabapentin 800 mg tablet 800 mg PO TID Qty: 90 3RF (DME) miscellaneous medical supply Misc See Rx Instructions .ROUTE .MEDSUPPLY Qty: 1 Rx Instructions: As directed Discharge Orders: Discharge Order (Routine); Ordered 12/30/23 Ordered By: Aleena Gordon Diet: Regular diet Activity on Discharge: As tolerated Stand Alone Forms: Patient Portal Discharge page, Community Support Print Language: Citizen Of [place] Care Plan Goals: 1. Maintain mood 2. No SI/HI 3. Harm reduction- narcan given on discharge Health Concerns: follow up with PCP Plan of Treatment: 1. Take medications as prescribed 2. Go to ED or call 911 in event of emergency Assessment: Pt presents with brighter, non labile affect. No SI/HI. Future oriented. Social with peers, seen smiling and socializing. No VH/AH. No delusions. Discharge Date/Time: 12/30/23 13:13
== END 2023-12-30 13:13 | disposition home or self-care (01) | DRG 885 ==
LOC: HO.ED 20:46 → HO.PADLT16 22:41
PROVIDERS: Admitting Provider Psychiatry & Neurology Psychiatry; Emergency Provider Internal Medicine; Visit Provider Social Worker
DX: F32.1 Major depressive disorder, single episode, moderate (principal); R45.851 Suicidal ideations; Z59.02 Unsheltered homelessness; G47.33 Obstructive sleep apnea (adult) (pediatric); M54.12 Radiculopathy, cervical region; G56.03 Carpal tunnel syndrome, bilateral upper limbs; Z99.81 Dependence on supplemental oxygen; F17.210 Nicotine dependence, cigarettes, uncomplicated; F41.1 Generalized anxiety disorder; F19.90 Other psychoactive substance use, unspecified, uncomplicated; F10.91 Alcohol use, unspecified, in remission; F14.10 Cocaine abuse, uncomplicated; Z23 Encounter for immunization; Z71.6 Tobacco abuse counseling; I50.810 Right heart failure, unspecified; Z20.822 Contact with and (suspected) exposure to COVID-19; Z79.899 Other long term (current) drug therapy
CPT/HCPCS: 0241U; 36415; 71045; 72050; 74018; 80053; 80061; 80307; 81001; 83540; 85025; 90656; 93970; 94640; 94799; 99285; S9485

== ENCOUNTER → 2023-12-20 22:37 | Outpatient (BNV) | payer MEDICARE, MEDICAID, SELFPAY | PROVIDERS: Admitting Provider Psychiatry & Neurology Psychiatry; Emergency Provider Internal Medicine; Visit Provider Psychiatry & Neurology Psychiatry | DX: F32.1 Major depressive disorder, single episode, moderate (principal); F19.90 Other psychoactive substance use, unspecified, uncomplicated | CPT/HCPCS: 90792; 99231; 99232; 99239 ==

== ENCOUNTER → 2023-12-20 22:37 | Outpatient (BNV) | payer MEDICARE, MEDICAID, SELFPAY | PROVIDERS: Admitting Provider Psychiatry & Neurology Psychiatry; Emergency Provider Internal Medicine; Visit Provider Nurse Practitioner Psychiatric/Mental Health | DX: F14.10 Cocaine abuse, uncomplicated (principal) | CPT/HCPCS: 99499 ==

== ENCOUNTER → 2023-12-20 22:37 | Outpatient (BNV) | payer MEDICARE, MEDICAID, SELFPAY | PROVIDERS: Admitting Provider Psychiatry & Neurology Psychiatry; Emergency Provider Internal Medicine; Visit Provider Psychiatry & Neurology Psychiatry | DX: F14.10 Cocaine abuse, uncomplicated (principal); F41.1 Generalized anxiety disorder; M54.12 Radiculopathy, cervical region; R06.02 Shortness of breath | CPT/HCPCS: 99232 ==

== ENCOUNTER → 2023-12-20 22:37 | Outpatient (BNV) | payer MEDICARE, MEDICAID, SELFPAY | PROVIDERS: Admitting Provider Psychiatry & Neurology Psychiatry; Emergency Provider Internal Medicine; Visit Provider Student in an Organized Health Care Education/Training Program | DX: R06.02 Shortness of breath (principal); R60.0 Localized edema | CPT/HCPCS: 99222 ==

== ENCOUNTER → 2023-12-20 22:37 | Outpatient (BNV) | payer MEDICARE, MEDICAID, SELFPAY | PROVIDERS: Admitting Provider Psychiatry & Neurology Psychiatry; Emergency Provider Internal Medicine; Visit Provider Psychiatry & Neurology Neurology | DX: M54.12 Radiculopathy, cervical region (principal) | CPT/HCPCS: 99221 ==

== ENCOUNTER 2024-03-16 10:05 | Inpatient (IN) | payer MEDICARE, SELFPAY ==
--- NOTE | ~2024-03-16 | XR_ITS ---
EXAMINATION: XR CHEST CLINICAL INFORMATION: recently dx pneumonia plus low oxygen sat COMPARISON: Chest radiograph 03/27/2024. Chest radiograph 01/06/2020. CT chest 01/08/2020. TECHNIQUE: 2 views of the chest were obtained. FINDINGS: Normal appearance of the cardiomediastinal structures. Minimal blunting of the right costophrenic sulcus. No pneumothoraces. The examination is underpenetrated as manifest by inability to visualize the thoracic vertebral bodies posterior to the cardiac silhouette. Making allowances for underpenetrated technique, a grossly normal pattern of pulmonary parenchyma is noted aside from attenuation of the prominently parenchyma in the upper lung zones. XR/XR chest 2V IMPRESSION: *Findings suspicious for centrilobular emphysema. *Possible trace right pleural effusion; otherwise, no definitive acute cardiopulmonary abnormalities identified. No focal pulmonary consolidation. Electronically signed by: Selwyn Frazier MD 03/16/2024 01:33 PM [facility]
--- NOTE | ~2024-03-16 | CT_ITS ---
EXAMINATION: CT CHEST WITHOUT CONTRAST CLINICAL INFORMATION: Abnormal chest x-ray. COMPARISON: CT angiogram chest dated January 08, 2020. Correlated to x-ray dated March 17, 2024. TECHNIQUE: Multidetector volumetric CT imaging of the chest was done. Axial MIP volume rendering provided. Sagittal and coronal reformatted images were obtained. This CT examination was performed using dose optimization techniques as appropriate, variously including the following: *Automated exposure control *Adjustment of mA and/or kV according to patient size (this includes techniques or standardized protocols for targeted exams where dose is matched to indication/reason for exam; i.e. extremities or head) *Use of iterative reconstruction technique DLP: 368 mGy-cm FINDINGS: Inadequate evaluation of the mediastinal structures due to lack of IV contrast. Limited by patient's motion artifact. LUNGS: Linear and confluent high attenuation, posterior medial right lower lung lobe. 7 mm noncalcified pulmonary nodule, right lower lung lobe. Patchy pulmonary groundglass, peripheral aspect of the right upper lobe. Subsegmental atelectasis versus scarring in the lung bases, lingula and right middle lobe. Centrilobular and paraseptal emphysematous changes involving mostly the upper lung. 2 mm calcified pulmonary nodule, left upper lung lobe likely granuloma. No pleural effusion. No pneumothorax. Respiratory airways patent. Nonspecific prominent lymph nodes in the mediastinum, right precarinal. No pericardial effusion. 2.8 cm lymphadenopathy, right retrocrural posterior to the distal esophagus. Calcified plaques in the coronary arteries and thoracic aorta and its main branches. Postsurgical changes at the gastroesophageal junction. 5 cm fat density lesion, left adrenal gland. Multilevel cervical thoracic and upper lumbar spondylosis without acute fracture or gross listhesis. Prominent breast tissue bilaterally. Degenerative changes in the right shoulder/glenohumeral joint. . CT/CT chest wo IV con IMPRESSION: Airspace disease, posterior medial right lung base and nonspecific subcentimeter pulmonary groundglass nodule right upper lobe. Stable posterior mediastinum lymphadenopathy and smaller right precarinal lymphadenopathy. 5 cm fat density lesion left adrenal gland consider angiomyolipoma. Fleischner guidelines were followed. Electronically signed by: Triston Murilol MD 03/17/2024 12:37 PM [facility]
--- NOTE | ~2024-03-16 | XR_ITS ---
EXAMINATION: XR CHEST CLINICAL INFORMATION: Shortness of breath. COMPARISON: 03/16/2024 and 12/27/2023 chest x-rays. TECHNIQUE: 2 views of the chest were obtained. FINDINGS: There is no gross pneumothorax. Lung volumes are low. Stable cardiomediastinal silhouette. Streaky bibasilar opacities, left greater than right. No gross pleural effusion. Degenerative changes in the thoracic spine. Lungs are hyperinflated suggestive of emphysema. XR/XR chest 2V IMPRESSION: Streaky bibasilar opacities, left greater than right. This study was presented today March 17, 2024 for interpretation. Stat results provided at this time as requested by referring provider. Electronically signed by: Robyn Lewis MD 03/17/2024 09:13 AM [facility]
[2024-03-16 10:12] VITALS: BP 144/92; PULSE 57; O2SAT 93
--- NOTE | 2024-03-16 10:15 | ECG_ITS ---
Test Reason : WITHDRAWLS Blood Pressure : / mmHG Vent. Rate : 066 BPM Atrial Rate : 066 BPM P-R Int : 130 ms QRS Dur : 090 ms QT Int : 398 ms P-R-T Axes : 006 015 032 degrees QTc Int : 417 ms Poor data quality Normal sinus rhythm Normal ECG When compared with ECG of 06-JAN-2020 02:37, No significant change was found Referred By: Generic ED Physician Electronically Signed By:Presley Badillo
[2024-03-16 10:21] VITALS: BMI 23.7
[2024-03-16 10:23] VITALS: BP 150/82; PULSE 66; RESP 20; TEMP 36.8; O2SAT 90
--- NOTE | 2024-03-16 10:33 | ED_ITS ---
HPI - Psych General Chief Complaint: Psychiatric Symptoms Stated Complaint: SI,WITHDRAWAL FROM COCAINE PER EMS Time Seen by Provider: 03/16/24 10:18 Source: patient, EMS and RN notes reviewed Mode of arrival: EMS Limitations: no limitations History of Present Illness ED Provider: Nagi HPI Narrative: Patient is a 58-year-old male with history of opiate dependence, cocaine use, MDD, COPD, CHF class III, smoker, recently treated for pneumonia presenting with thoughts of suicidal ideation. Reports plan to overdose. Also admits to auditory and visual hallucinations. States that he completed the full course of antibiotics for his recent pneumonia, but is unsure of the name. Admits to cocaine use prior to arrival. Denies chest pain or palpitations. Has not taken his psych medications since Saturday because I didn't feel like it. MD complaint: suicidal ideation History of same: Yes Context: not taking psychiatric medications If self harm: admits thoughts of self harm and has plan Related Data Previous Rx's ?Medication ?Instructions ?Recorded albuterol sulfate 90 mcg/actuation 2 puff inhalation RQ4H PRN 12/30/23 aerosol inhaler (Ventolin HFA) Shortness Of Breath/Wheezing #6.7 grams ascorbic acid (vitamin C) 250 mg 250 mg PO DAILY #30 tabs 12/30/23 tablet baclofen 10 mg tablet 10 mg PO TID #45 tabs 12/30/23 ferrous sulfate 324 mg (65 mg 324 mg PO DAILY #30 tabs 12/30/23 iron) tablet,delayed release furosemide 40 mg tablet 40 mg PO DAILY #30 tabs 12/30/23 gabapentin 800 mg tablet 800 mg PO TID #90 tabs 12/30/23 hydroxyzine HCl 25 mg tablet 25 mg PO TID PRN Anxiety #90 tabs 12/30/23 omeprazole 20 mg capsule,delayed 20 mg PO DAILY@0630 #30 caps 12/30/23 release simethicone 80 mg chewable tablet 80 mg PO QIDWMHS #120 tabs 12/30/23 (Gas Relief (simethicone)) trazodone 150 mg tablet 150 mg PO BEDTIME #30 tabs 12/30/23 sertraline 50 mg tablet 50 mg PO DAILY #30 tabs 12/31/23 Allergies Allergy/AdvReac Type Severity Reaction Status Date / Time oxycodone AdvReac Unknown GI upset Verified 03/16/24 10:24 Review of Systems 2 Review of Systems: as per hpi Yes all other systems are reviewed and are negative Constitutional: Constitutional: Reports as per HPI PMFSH Past Medical History Medical History Varicose veins of right lower extremity Peripheral vascular disease GERD (gastroesophageal reflux disease) History of pernicious anemia Hx of acute respiratory failure Edema Back pain Arthritis History of DVT of lower extremity Depression ANA treated with BiPAP Right-sided heart failure Surgical History History of incisional hernia repair Hx of esophagogastroduodenoscopy Hx of colonoscopy History of total right knee replacement S/P right knee arthroscopy Hx of tracheostomy Hx of total hip arthroplasty History of colostomy reversal History of colon resection H/O gastric bypass Family History Family History Father Displacement of central venous catheter (CVC) Mother Unknown family medical history Social History Social History Household Members: None Housing: Homeless Do you presently have visiting nurse or other home services: No Patient Tobacco Use Status: Current everyday Tobacco user Tobacco use type: Cigarette Cigarette Packs Per Day: 1 Cigarettes Per Day: 20.0 Smoked in Last 30 Days: Yes e-Cigarette/Vaping Use: Never Used Second Hand Smoke Exposure: No Use of substances other than those prescribed or required for medical reasons: Yes Substance Use Type: Amphetamines, Crack/Cocaine and Prescription Drugs Substance Use Frequency: Chronic Longstanding Last Used Substance: Just Prior to Admission Advance Directives: No Advance Directives Information Provided: No Do you have a plan to hurt others: No Plan service: No Sexual orientation: Straight/Heterosexual Physical Exam 2 Vital Signs: Vital Signs: Last Vital Signs Temp 98.3 F 03/16/24 10:23 Pulse 66 03/16/24 10:23 Resp 20 03/16/24 10:23 BP 150/82 H 03/16/24 10:23 Pulse Ox 94 03/16/24 12:13 O2 Del Method Room Air 03/16/24 12:13 BMI result Body Mass Index 23.7 Vital signs have been reviewed and appear to be correct. Blood pressure elevated. Heart rate normal. Respiratory rate normal. Temperature normal. Oxygen saturation normal. Const: General: cooperative, healthy appearing and no acute distress O rientation/consciousness: oriented to person, oriented to place, oriented to time and patient oriented x3 Limitations: no limitations HEENT: Head: Yes normocephalic and Yes atraumatic Ears: external ears normal General nose exam: Normal external nose present Face and sinus: Yes face symmetric Mouth: oropharynx normal and moist mucous membranes Throat: Yes uvula midline Eyes: Pupils: Equal, round and reactive pupils present Neck: Neck: Yes normal visual inspection and Yes supple Resp: Effort & Inspection: normal respiratory effort and able to speak in complete sentences Auscultation: clear to auscultation bilaterally and rhonchi throughout Cardio: Rate: regular rate Rhythm: regular rhythm Heart sounds: S1 normal heart sound present and S2 normal heart sound present GI: Palpation (GI): Soft to palpation and nontender Auscultation: n ormoactive bowel sounds : General: Yes no CVA tenderness Back/Spine/Pelvis: Back: no CVA tenderness Skin: General skin exam: elasticity normal and turgor normal Neuro: General: oriented to person, oriented to place, oriented to time, patient oriented x3, moves all extremities, no focal motor deficits and CN's II- XI intact bilaterally Cranial nerves: Yes Equal, round and reactive pupils present Cognition (Neuro): normal cognition Extrem: General: Yes full ROM, Yes no pedal edema and Yes no calf tenderness Psych: Mental Status: mental status grossly normal Affect: normal affect Thought process: Normal thought process present Thought content: Suicidality present and Hallucination(s) present auditory and visual Medical Decision Making Medical Decision Making MDM Narrative: Patient is a 74-year-old male with history of celiac disease, HTN, anxiety, osteoporosis presenting to the emergency department with complaint of abdominal pain which began yesterday morning after he woke up. On exam patient is awake, A+Ox3, VS WNL, afebrile, normal neurological exam without focal deficits, physical exam findings as above. O2 sat initially 90 but improved to 94% on room air without intervention. Given reported symptoms and physical exam findings, initial differential includes depression, suicidal ideation, substance use disorder, medication noncompliance, unresolved pneumonia. Labs unremarkable. X-ray notable for no evidence for ongoing pneumonia. My interpretation is in agreement with the radiologist's interpretation. Will medically clear at this time and place on physician observation for CARE team eval at 13:50. Differential Diagnosis Differential Diagnoses: The differential diagnosis associated with the presentation includes as per [facility] Admission/Observation Consideration of admission/observation: Escalation of care including admission/observation considered Patient would have been admitted to the hospital had their work up had any findings where hospital admission was appropriate and their clinical presentation warranted hospital admission. Consult Healthcare Provider Management of the patient was discussed with: Behavioral Health Provider Lab Data [facility] Lab Attestation statement: I reviewed the patient's lab results. as per [facility] 03/16/24 11:09 03/16/24 11:09 Labs: Lab Results 03/16/24 03/16/24 Range/Units 11: 13:05 WBC 7.6 (4.8-10.8) X10*3/uL RBC 5.24 (4.60-5.80) X10*6/uL Hgb 12.1 L (14.0-18.0) g/dl Hct 38.3 L (42.0-52.0) % MCV 73.1 L (80.0-98.0) fL MCH 23.1 L (27.0-33.0) pg MCHC 31.6 (31.0-36.0) g/dl RDW 20.5 H (11.0-16.0) % Plt Count 312 (160-400) X10*3/uL MPV 10.1 (9.4-12.4) fL Immature Gran % (Auto) 0.3 (0.0-0.4) % Neut % (Auto) 66.2 (45-73) % Lymph % (Auto) 20.8 (20-40) % [place] % (Auto) 8.4 (2-11) % Eos % (Auto) 3.4 (0-4) % Baso % (Auto) 0.9 (0-2) % Lymph # (Auto) 1.6 (1.2-4.9) X10*3/uL [place] # (Auto) 0.6 (0.1-1.2) X10*3/uL Eos # (Auto) 0.3 (0.0-0.4) X10*3/uL Baso # (Auto) 0.1 (0.0-0.2) X10*3/uL Abs Immat Gran (auto) 0.02 (0.00-0.03) X10*3/uL Absolute Neuts (auto) 5.0 (2.0-8.3) x10*3/uL Absolute Nucleated RBC 0.000 (0.0-0.012) X10*3/uL Nucleated RBC % (auto) 0.0 (0.0-0.2) /100WBC Sodium 139 (135-145) mmol/L Potassium 3.7 (3.3-5.1) mmol/L Chloride 106 (96-108) mmol/L Carbon Dioxide 27 (22-29) mmol/L Anion Gap 10 L (12-20) BUN 12 (9-16) mg/dL Creatinine 0.83 (0.5-1.4) mg/dL Estim Creat Clear Calc 101.3 Estimated GFR > 60 Random Glucose 141 H (60-115) mg/dL Calcium 8.7 (8.4-10.2) mg/dL Total Bilirubin 0.6 (0.0-1.0) mg/dL AST 46 H (5-37) U/L ALT 31 (0-40) U/L Alkaline Phosphatase 87 (39-117) U/L Troponin I High Sens 6.2 (<3.5-35.0) ng/L Total Protein 7.4 (6.5-8.0) g/dL Albumin 4.1 (3.5-5.0) g/dL Urine Color Dark Yellow Urine Appearance Clear Urine pH 5.5 (5.0-9.0) Ur Specific [place] 1.025 (1.005-1.025) Urine Protein 30 (1+) H (Neg-Trace) mg/dL Urine Glucose (UA) Negative (Negative) mg/dL Urine Ketones Trace (Negative) mg/dL Urine Blood Negative (Negative) Urine Nitrite Negative (Negative) Ur Leukocyte Esterase Negative (Negative) Salicylates < 5.0 L (15-30) mg/dL Acetaminophen < 3 (<30) mcg/mL Ethyl Alcohol < 10 mg/dL Independent Interpretation I performed an independent interpretation of an: EKG (normal sinus rhythm, rate 66bpm, normal TX interval, no significant change from prior) and Plain X-Ray Interpretation: NO evidence of pneumonia on cxr Radiology Impression Discussion of test interpretation with radiology: I have reviewed the radiologist's reading. Radiologist Impression: XR/XR chest 2V IMPRESSION: *Findings suspicious for centrilobular emphysema. *Possible trace right pleural effusion; otherwise, no definitive acute cardiopulmonary abnormalities identified. No focal pulmonary consolidation. External Record Review External record reviewed: Inpatient record, Office record and Outpatient record Discharge Plan Discharge Clinical Impression: Suicidal ideation Patient Disposition: Still a Patient Prescriptions: No Action baclofen 10 mg Tablet 10 mg PO TID Qty: 45 0RF albuterol sulfate [Ventolin HFA] 90 mcg/actuation Hfa Aerosol Inhaler 2 puff inhalation RQ4H PRN (Reason: Shortness Of Breath/Wheezing) Qty: 6.7 0RF ferrous sulfate 324 mg (65 mg iron) Tablet,Delayed Release (Dr/Ec) 324 mg PO DAILY Qty: 30 0RF gabapentin 800 mg tablet 800 mg PO TID Qty: 90 0RF hydroxyzine HCl 25 mg Tablet 25 mg PO TID PRN (Reason: Anxiety) Qty: 90 0RF trazodone 150 mg tablet 150 mg PO BEDTIME Qty: 30 0RF furosemide 40 mg Tablet 40 mg PO DAILY Qty: 30 0RF Protocol: Hold for SBP< HOLD for SBP < : 90 ascorbic acid (vitamin C) 250 mg Tablet 250 mg PO DAILY Qty: 30 0RF omeprazole 20 mg Capsule,Delayed Release(Dr/Ec) 20 mg PO DAILY@0630 Qty: 30 0RF simethicone [Gas Relief (simethicone)] 80 mg Tablet,Chewable 80 mg PO QIDWMHS Qty: 120 0RF sertraline 50 mg tablet 50 mg PO DAILY Qty: 30 0RF Interventions: [place]-Suicide Risk Severity Scale Last Done: 03/16/24 10:24 Print Language: [place]
[2024-03-16 11:15] LABS: MANUAL DIFF FLAG NO
[2024-03-16 11:16] LABS: Basophils Absolute Auto 0.1 X10*3/uL (0.0-0.2); Basophils Percent Auto 0.9 % (0-2); Eosinophils Absolute Auto 0.3 X10*3/uL (0.0-0.4); Eosinophils Percent Auto 3.4 % (0-4); Hematocrit 38.3 % (42.0-52.0); Hemoglobin 12.1 g/dl (14.0-18.0); Imm Gran Abs Auto 0.02 X10*3/uL (0.00-0.03); Imm Gran Pct Auto 0.3 % (0.0-0.4); Lymphocytes Absolute Auto 1.6 X10*3/uL (1.2-4.9); Lymphocytes Percent Auto 20.8 % (20-40); Mean Corpuscular HGB Conc 31.6 g/dl (31.0-36.0); Mean Corpuscular Hemoglobin 23.1 pg (27.0-33.0); Mean Corpuscular Volume 73.1 fL (80.0-98.0); Mean Platelet Volume 10.1 fL (9.4-12.4); Monocytes Absolute Auto 0.6 X10*3/uL (0.1-1.2); Monocytes Percent Auto 8.4 % (2-11); Neutrophils Percent Auto 66.2 % (45-73); Platelet Count 312 X10*3/uL (160-400); Red Blood Count 5.24 X10*6/uL (4.60-5.80); Red Cell Distribution Width 20.5 % (11.0-16.0); White Blood Count 7.6 X10*3/uL (4.8-10.8)
[2024-03-16 11:33] LABS: Acetaminophen LAB < 3 mcg/mL (<30); Alanine Aminotransferase 31 U/L (0-40); Albumin Level 4.1 g/dL (3.5-5.0); Alkaline Phosphatase 87 U/L (39-117); Anion Gap 10 (12-20); Aspartate Amino Transferase 46 U/L (5-37); Bilirubin Total 0.6 mg/dL (0.0-1.0); Blood Urea Nitrogen 12 mg/dL (9-16); Calcium 8.7 mg/dL (8.4-10.2); Carbon Dioxide 27 mmol/L (22-29); Chloride 106 mmol/L (96-108); Creatinine Clr Calc Pharmacy 101.3; Estimated Glomerular Filt Rate > 60; Ethanol < 10 mg/dL; Glucose Random 141 mg/dL (60-115); Potassium 3.7 mmol/L (3.3-5.1); Salicylate < 5.0 mg/dL (15-30); Sodium 139 mmol/L (135-145); Total Protein 7.4 g/dL (6.5-8.0)
[2024-03-16 11:39] LABS: Troponin-I High Sensitivity 6.2 ng/L (<3.5-35.0)
[2024-03-16 12:13] VITALS: O2SAT 94
[2024-03-16 13:19] LABS: Appearance Urine Clear; Color Urine Dark Yellow; Glucose Urine UA Negative (Negative); Leukocyte Esterase Urine Negative (Negative); Nitrite Urine Negative (Negative); PH 5.5 (5.0-9.0); Specific Gravity - Urine 1.025 (1.005-1.025); UMIC TRIGGER UA YES; Urine Blood Negative (Negative); Urine Ketones Trace mg/dL (Negative); Urine Protein 30 (1+) mg/dL (Neg-Trace)
[2024-03-16 13:54] LABS: Amphetamine Screen Urine Not Detected (Not Detect); Barbiturates, Urine Not Detected (Not Detect); Benzodiazepines Screen Urine Not Detected (Not Detect); Buprenorphine Scr Not Detected (Not Detect); Cannabinoid Screen Urine POSITIVE (Not Detect); Cocaine Screen Urine POSITIVE (Not Detect); Fentanyl, urine Not Detected (Not Detect); Methadone Screen, Urine Not Detected (Not Detect); Opiate Screen Urine Not Detected (Not Detect); Oxycodone Screen Urine Not Detected (Not Detect); Phencyclidine Screen Urine Not Detected (Not Detect)
[2024-03-16 14:07] LABS: Bacteria Urine None Seen (None Seen); Hyaline Casts Urine 0-2 /LPF (0-2); RBC Urine 0-2 /HPF (0-2); Squamous Epithelial Cell Urine 0-2 /HPF (0-2); WBC Urine 0-5 /HPF (0-5)
--- NOTE | 2024-03-16 14:11 | MHC.CARE ---
Pt will be a bedsearch (Either DUAL DX placement or if no beds available IPLOC with Recovery following)
[2024-03-16 18:50] VITALS: BP 124/67; PULSE 65; RESP 16; TEMP 37.1; O2SAT 91
[2024-03-16] MEDS: Acetaminophen 325 MG TABLET 650 MG PO (20:48)
[2024-03-16] MEDS: OXcarbazepine 150 MG TABLET PO (22:40)
[2024-03-16] MEDS: Mirtazapine 15 MG TABLET 45 MG PO (22:40)
[2024-03-16] MEDS: Pramipexole Di-HCL 0.125 MG TABLET PO (22:40)
[2024-03-17] VITALS (10 sets, daily range): BP systolic 119–153; BP diastolic 58–88; PULSE 65–77; RESP 15–18; TEMP 35.6–37.2; O2SAT 86–93
--- NOTE | 2024-03-17 06:04 | PC.NURSE ---
notified charge and provider of lower 02 sats
--- NOTE | 2024-03-17 07:26 | PC.NURSE ---
Assumed care of patient at 0645, patient appears to be in no apparent distress, sitting upright on couch in BH 7, respirations even and unlabored. Per night RN, patients O2 was dipping down in the low 80s. Patient has a chronic hx of COPD, typically satting between 87-95%. Pt currently doing ambulation trial with EDMUNDO Nunez. Pt reporting feeling unwell while that is occuring, satting between 86-87% while ambulating. Dr. Francisco at bedside to [facility]. Patient ambulates with steady gait. Continue plan of care for Dual Dx Bedsearch
[2024-03-17] MEDS: Albuterol/Iprat 2.5/0.5MG 3 ML AMPUL.NEB INHALE ×3 (08:11→18:55)
[2024-03-17] MEDS: predniSONE 20 MG TABLET 60 MG PO (09:36)
[2024-03-17] MEDS: DULoxetine HCl 30 MG CAPSULE.DR PO (09:36)
[2024-03-17] MEDS: OXcarbazepine 150 MG TABLET PO ×2 (09:36→22:20)
--- NOTE | 2024-03-17 09:38 | PC.NURSE ---
patient sent from pod for low oxygen, denies any shortness of breath/respiratory distress. states he has recent history of pneumonia and COPD. continues to rest comfortably in room. oxygen ranging from 88-91% on room air. labs being obtained at this time, medicated per the MAR. patient calm and cooperative, patient observer remains at bedside for patient safety. pending ambulating pulse ox.
[2024-03-17 10:02] LABS: VBG Base Excess 5.6 mmol/L; VBG HCO3 32 mmol/L (22-26); VBG pCO2 56 mmHg; VBG pH 7.36 (7.32-7.43); VBG pO2 42 mmHg
[2024-03-17 10:02] LABS: Venous Blood Gas Refer to POC result
[2024-03-17 10:22] LABS: B Type Natriuretic Peptide < 10 pg/mL (<100)
[2024-03-17 10:24] LABS: B Type Natriuretic Peptide < 10 pg/mL (<100)
[2024-03-17 10:39] LABS: Influenza A PCR NEGATIVE (Negative); Influenza B PCR NEGATIVE (Negative); Resp Syncy Virus RNA Qual PCR NEGATIVE (Negative); SARS COV2 PCR INHOUSE NEGATIVE (Negative)
--- NOTE | 2024-03-17 11:01 | PC.NURSE ---
patient placed on 2L nasal cannula, ambulating pulse ox 87-88%. while at rest patient 86-88% room air. in CT scan at this time
--- NOTE | 2024-03-17 11:31 | PHA.MEDREC ---
Addendum entered by Melquiades Watts 03/17/24 11:34: reviewed Original Note: Pharmacy Consult ? Medication Reconciliation Pharmacy reviewed med rec done by nursing. Claims matched what is confirmed on Med Rec.
[2024-03-17] MEDS: Baclofen 10 MG TABLET PO (11:58)
[2024-03-17 11:59] LABS: Procalcitonin 0.02 ng/mL
--- NOTE | 2024-03-17 13:09 | PM.IMHP ---
History of Present Illness Date of Service: 03/17/24 Chief Complaint: hypoxia The patient is a 58-year-old male with a past medical history of COPD and chronic respiratory failure with hypoxia on 3 L at baseline, prior provoked DVT no longer on anticoagulation, hypertension, hyperlipidemia, ANA on CPAP, depression and polysubstance use disorder who presented to [facility] ED on 03/16/2024 with suicidal ideation/depression with a plan to overdose on fentanyl. The patient was initially plan for admission to Psychiatry, however while awaiting bed, the patient was noted to be hypoxic down to the mid 80s on room air. Hence, the patient was moved to the main emergency room and further workup was pursued. This included a CT of the chest which showed, amongst others (see full report below), right lower lobe infiltrate. Upon further questioning, the patient denies any significant shortness of breath but does endorse a productive cough of greenish sputum. He denies any fevers or chills. When queried on why he is not using his prescribed oxygen, the patient states that he is homeless. In the ED, the patient has been given dose of prednisone and updraft treatments. He will be initiated on IV ceftriaxone and doxycycline admitted for further care. He currently denies active suicidality but does endorse depression. Review of Systems Review of Systems: Negative except HPI/interval history. [facility] Medical History Varicose veins of right lower extremity Peripheral vascular disease GERD (gastroesophageal reflux disease) History of pernicious anemia Hx of acute respiratory failure Edema Back pain Arthritis History of DVT of lower extremity Depression ANA treated with BiPAP Right-sided heart failure Family History Father Displacement of central venous catheter (CVC) Mother Unknown family medical history Surgical History History of incisional hernia repair Hx of esophagogastroduodenoscopy Hx of colonoscopy History of total right knee replacement S/P right knee arthroscopy Hx of tracheostomy Hx of total hip arthroplasty History of colostomy reversal History of colon resection H/O gastric bypass Social History Household Members: None Housing: Homeless Do you presently have visiting nurse or other home services: No Patient Tobacco Use Status: Current everyday Tobacco user Tobacco use type: Cigarette Cigarette Packs Per Day: 1 Cigarettes Per Day: 20.0 Smoked in Last 30 Days: Yes e-Cigarette/Vaping Use: Never Used Second Hand Smoke Exposure: No Use of substances other than those prescribed or required for medical reasons: Yes Substance Use Type: Amphetamines, Crack/Cocaine and Prescription Drugs Substance Use Frequency: Chronic Longstanding Last Used Substance: Just Prior to Admission Advance Directives: No Advance Directives Information Provided: No Do you have a plan to hurt others: No Plan service: No Sexual orientation: Straight/Heterosexual Meds Allergies Allergy/AdvReac Type Severity Reaction Status Date / Time oxycodone AdvReac Unknown GI upset Verified 03/16/24 10:24 Active Medications: Current Medications Acetaminophen (Acetaminophen 325 Mg Tablet) 650 mg PO Q6H PRN PRN Reason: Pain, Mild (Pain Scale 1-3), fever or headache Albuterol Sulfate (Albuterol Sulfate 90 Mcg 8 Gm Inhaler) 2 puff INHALE RQ4H PRN PRN Reason: Shortness Of Breath/Wheezing Albuterol/Ipratropium (Albuterol/Iprat 2.5/0.5mg 3 Ml Ampul.Neb) 3 ml INHALE RQ4H WHILE AWAKE [facility] Calcium Carbonate (Calcium Carbonate 750 Mg Tab.Chew) 750 mg PO Q4H PRN PRN Reason: Heartburn Ceftriaxone Sodium (Ceftriaxone Sodium 1 Gm Vial) 1 gm IVPUSH Q24H [facility] Duloxetine HCl (Duloxetine Hcl 30 Mg Capsule.Dr) 30 mg PO DAILY [facility] Last Admin: 03/17/24 09:36 Dose: 30 mg Enoxaparin Sodium (Enoxaparin Sodium 40 Mg/0.4 Ml Syringe) 40 mg SUBCUT Q24H [facility] Magnesium Hydroxide (Milk Of Magnesia 30 Ml Oral.Susp) 30 ml PO DAILY PRN PRN Reason: Constipation Melatonin (Melatonin 3 Mg Tablet) 6 mg PO BEDTIME PRN PRN Reason: Insomnia Methylprednisolone Sodium Succinate (Methylprednisolone Sod Succ 40 Mg/Ml Vial) 40 mg IVPUSH Q12H [facility] Mirtazapine (Mirtazapine 15 Mg Tablet) 45 mg PO BEDTIME [facility] Last Admin: 03/16/24 22:40 Dose: 45 mg Non-Formulary Medication (Loxapine Succinate) 100 mg PO BEDTIME [facility] Non-Formulary Medication (Umeclidinium-Vilanterol [Anoro Ellipta]) 1 each INHALE BID [facility] Oxcarbazepine (Oxcarbazepine 150 Mg Tablet) 150 mg PO BID [facility] Last Admin: 03/17/24 09:36 Dose: 150 mg Pramipexole Dihydrochloride (Pramipexole Di-Hcl 0.125 Mg Tablet) 0.125 mg PO BEDTIME [facility] Last Admin: 03/16/24 22:40 Dose: 0.125 mg Sodium Chloride (0.9 % Sodium Chloride Flush 3 Ml Syringe) 3 ml IVFLUSH QSHIFT [facility] Home Medications ?Medication ?Instructions ?Recorded ?Confirmed ?Last Taken ?Type clonidine HCl 0.1 mg tablet 0.1 mg PO Q8H PRN anxiety 03/16/24 03/16/24 Unknown History duloxetine 30 mg capsule,delayed 30 mg PO DAILY 03/16/24 03/16/24 03/16/24 09:00 History release hydroxyzine pamoate 50 mg capsule 50 mg PO Q6H PRN anxiety 03/16/24 03/16/24 Unknown History ipratropium 0.5 mg-albuterol 3 mg 3 ml inhalation Q4H PRN Shortness 03/16/24 03/16/24 Unknown History (2.5 mg base)/3 mL nebulization Of Breath Or Wheezing soln loxapine succinate 50 mg capsule 100 mg PO BEDTIME 03/16/24 03/16/24 03/15/24 20:00 History mirtazapine 45 mg tablet 45 mg PO BEDTIME 03/16/24 03/16/24 03/15/24 20:00 History oxcarbazepine 150 mg tablet 150 mg PO BID 03/16/24 03/16/24 03/16/24 08:00 History pantoprazole 20 mg tablet,delayed 20 mg PO DAILY@0630 03/16/24 03/16/24 Unknown History release pramipexole 0.125 mg tablet 0.125 mg PO BEDTIME 03/16/24 03/16/24 Unknown History umeclidinium 62.5 mcg-vilanterol 1 ea inhalation BID 03/16/24 03/16/24 Unknown History 25 mcg/actuation powdr for inhalation (Anoro Ellipta) Physical Exam Vital Signs and Narrative: Vital Signs: Last Vital Signs Temp 99 F 03/17/24 07:19 Pulse 67 03/17/24 08:15 Resp 16 03/17/24 08:15 BP 127/88 03/17/24 07:19 Pulse Ox 89 L 03/17/24 08:15 O2 Del Method Room Air 03/17/24 08:15 BMI result Body Mass Index 23.7 Const: Other: Constitutional - Awake and Alert, No apparent distress Eyes - PERRLA, EOMI Cardiovascular - S1S2, RRR, No edema Respiratory - poor air entry globally Gastrointestinal - NT / ND; +BS; No rebound or guarding - No CVA tenderness Extremities - no calf tenderness bilaterally, no swelling Musculoskeletal - Normal inspection, normal ROM Skin - Warm/Dry Neurological - Alert & oriented x3, No focal deficit Psychological - Appropriate affect Results Labs 03/16/24 11:09 03/16/24 11:09 Labs: Laboratory Results - last 24 hr 03/16/24 03/16/24 03/17/24 11:09 13:05 09:52 VBG pH VBG pCO2 VBG pO2 VBG HCO3 VBG O2 Saturation VBG Base Excess B-Natriuretic Peptide Procalcitonin 0.02 Urine Color Dark Yellow Urine Appearance Clear Urine pH 5.5 Ur Specific [place] 1.025 Urine Protein 30 (1+) H Urine Glucose (UA) Negative Urine Ketones Trace Urine Blood Negative Urine Nitrite Negative Ur Leukocyte Esterase Negative Urine RBC 0-2 Urine WBC 0-5 Ur Squamous Epith Cells 0-2 Urine Bacteria None Seen Hyaline Casts 0-2 Urine Opiates Screen Not Detected Ur Buprenorphine Scrn Not Detected Ur Oxycodone Screen Not Detected Urine Methadone Screen Not Detected Urine Fentanyl Screen Not Detected Ur Barbiturates Screen Not Detected Ur Phencyclidine Scrn Not Detected Ur Amphetamines Screen Not Detected U Benzodiazepines Scrn Not Detected Urine Cocaine Screen POSITIVE H U Marijuana (THC) Screen POSITIVE H Influenza Type A (PCR) NEGATIVE Influenza Type B (PCR) NEGATIVE RSV RNA Qual (PCR) NEGATIVE SARS-CoV-2 RNA (RT-PCR) NEGATIVE 03/17/24 03/17/24 03/17/24 09:53 09:53 09:58 VBG pH 7.36 VBG pCO2 56 VBG pO2 42 VBG HCO3 32 H VBG O2 Saturation 63.0 VBG Base Excess 5.6 B-Natriuretic Peptide < 10 < 10 Procalcitonin Urine Color Urine Appearance Urine pH Ur Specific [place] Urine Protein Urine Glucose (UA) Urine Ketones Urine Blood Urine Nitrite Ur Leukocyte Esterase Urine RBC Urine WBC Ur Squamous Epith Cells Urine Bacteria Hyaline Casts Urine Opiates Screen Ur Buprenorphine Scrn Ur Oxycodone Screen Urine Methadone Screen Urine Fentanyl Screen Ur Barbiturates Screen Ur Phencyclidine Scrn Ur Amphetamines Screen U Benzodiazepines Scrn Urine Cocaine Screen U Marijuana (THC) Screen Influenza Type A (PCR) Influenza Type B (PCR) RSV RNA Qual (PCR) SARS-CoV-2 RNA (RT-PCR) Imaging Radiologist's Impressions: Impressions Chest X-Ray 03/16/24 10:29 IMPRESSION: *Findings suspicious for centrilobular emphysema. *Possible trace right pleural effusion; otherwise, no definitive acute cardiopulmonary abnormalities identified. No focal pulmonary consolidation. Electronically signed by: Selwyn Frazier MD 03/16/2024 01:33 PM EST RP Chest X-Ray 03/17/24 07:41 IMPRESSION: Streaky bibasilar opacities, left greater than right. This study was presented today March 17, 2024 for interpretation. Stat results provided at this time as requested by referring provider. Electronically signed by: Robyn Lewis MD 03/17/2024 09:13 AM EST RP Chest CT 03/17/24 10:53 IMPRESSION: Airspace disease, posterior medial right lung base and nonspecific subcentimeter pulmonary groundglass nodule right upper lobe. Stable posterior mediastinum lymphadenopathy and smaller right precarinal lymphadenopathy. 5 cm fat density lesion left adrenal gland consider angiomyolipoma. Fleischner guidelines were followed. Electronically signed by: Triston Murillo MD 03/17/2024 12:37 PM EST RP Assessment and Plan (1) COPD with hypoxia: Status: Acute (2) Suicidal ideation: Status: Acute Plan 58-year-old male with COPD and chronic respiratory failure presented to the ED initially with suicidal ideation. He has been found to be hypoxic initially on room air and subsequently even on 3 L down to 87%. His chest imaging shows right-sided pneumonia. He will be admitted for further treatment. 1. Acute on chronic respiratory failure with hypoxia Initially was desaturating to the mid 80s on room air. Subsequently after being placed on 3 L he remains hypoxic down to 87. Has improved with 4 L at this time. Continue O2 with a goal of 90%, CO2 retainer oxygen protocol ordered Likely due to COPD and right-sided pneumonia 2. Right lower lobe pneumonia IV ceftriaxone and doxycycline Patient is not septic at this time 3. COPD exacerbation Poor air entry globally Will treat with systemic steroids and nebulized bronchodilators 4. Depression, suicidal ideal Continue with one-to-one sitter Eventual evaluation by care team once medically cleared 5. ANA CPAP Full Code DVT pptx, Lovenox Patient with hypoxia and right lower lobe pneumonia as well as COPD exacerbation with risk factors of substance abuse and suicidality, therefore expected to require at a minimum 2 midnights in the hospital for medical treatment and hence will be admitted as inpatient. Quality Stroke Does the patient have a stroke diagnosis?: No VTE Prior VTE?: No VTE Risk Level:: Medical - moderate - high VTE Device Contraindication: N/A - Device Ordered VTE Drug Contraindication: N/A - Med Ordered
[2024-03-17] MEDS: 0.9 % Sodium Chloride Flush 3 ML SYRINGE IVFLUSH (14:43)
[2024-03-17] MEDS: cefTRIAXone sodium 1 GM VIAL IVPUSH (14:43)
[2024-03-17] MEDS: Enoxaparin Sodium 40 MG/0.4 ML SYRINGE SUBCUT (14:43)
[2024-03-17] MEDS: Doxycycline Hyclate 100 MG in 0.9 % Sodium Chloride 250 ML 166.67 MG IV (17:29)
[2024-03-17] MEDS: methylPREDNISolone Sod Succ 40 MG/ML VIAL IVPUSH (17:30)
[2024-03-17] MEDS: Pramipexole Di-HCL 0.125 MG TABLET PO (22:20)
[2024-03-17] MEDS: Mirtazapine 15 MG TABLET 45 MG PO (22:20)
[2024-03-18] VITALS (10 sets, daily range): BP systolic 129–144; BP diastolic 60–80; PULSE 59–80; RESP 18–20; TEMP 36.3–37; O2SAT 86–92
[2024-03-18] MEDS: methylPREDNISolone Sod Succ 40 MG/ML VIAL IVPUSH ×2 (06:02→19:00)
[2024-03-18] MEDS: Doxycycline Hyclate 100 MG in 0.9 % Sodium Chloride 250 ML 166.67 MG IV ×2 (06:15→19:00)
[2024-03-18] MEDS: Acetaminophen 325 MG TABLET 650 MG PO (06:28)
[2024-03-18 06:50] LABS: Hematocrit 40.6 % (42.0-52.0); Hemoglobin 12.4 g/dl (14.0-18.0); Mean Corpuscular HGB Conc 30.5 g/dl (31.0-36.0); Mean Corpuscular Hemoglobin 22.3 pg (27.0-33.0); Mean Corpuscular Volume 73.2 fL (80.0-98.0); Mean Platelet Volume 10.3 fL (9.4-12.4); Platelet Count 303 X10*3/uL (160-400); Red Blood Count 5.55 X10*6/uL (4.60-5.80); Red Cell Distribution Width 20.4 % (11.0-16.0); White Blood Count 9.9 X10*3/uL (4.8-10.8)
[2024-03-18 07:06] LABS: Anion Gap 12 (12-20); Blood Urea Nitrogen 18 mg/dL (9-16); Carbon Dioxide 27 mmol/L (22-29); Chloride 106 mmol/L (96-108); Creatinine Clr Calc Pharmacy 105.1; Estimated Glomerular Filt Rate > 60; Glucose Random 108 mg/dL (60-115); Potassium 4.2 mmol/L (3.3-5.1); Sodium 141 mmol/L (135-145)
[2024-03-18] MEDS: Albuterol/Iprat 2.5/0.5MG 3 ML AMPUL.NEB INHALE ×3 (07:50→15:34)
[2024-03-18] MEDS: OXcarbazepine 150 MG TABLET PO ×2 (09:48→20:38)
[2024-03-18] MEDS: DULoxetine HCl 30 MG CAPSULE.DR PO (09:48)
[2024-03-18] MEDS: 0.9 % Sodium Chloride Flush 3 ML SYRINGE IVFLUSH ×2 (09:48→20:38)
--- NOTE | 2024-03-18 12:29 | P.PNIM_ITS ---
Subjective Subjective Date of Service: 03/18/24 Interval History: copd excerebation Review of Systems sob and cough somewhat improving no fevers Physical Exam 2 Vital Signs: Vital Signs: Last Vital Signs Temp 98.1 F 03/18/24 11:24 Pulse 71 03/18/24 11:46 Resp 20 03/18/24 11:46 BP 137/72 03/18/24 11:24 Pulse Ox 92 03/18/24 11:24 O2 Del Method Room Air 03/18/24 11:24 O2 Flow Rate 2 03/18/24 07:45 BMI result Body Mass Index 23.7 Appearance: Alert.? Oriented X3.? cvs: rrr, [id number] , no murmur res:air entry diminshed , has b/l exp wheezing. abd: no rebound or guarding ,nt, bs present. ext pulses present , no cyanosis . neuro: axo3 , nonfocal. Objective Data Active Medications Acetaminophen (Acetaminophen 325 Mg Tablet) 650 mg PO Q6H PRN PRN Reason: Pain, Mild (Pain Scale 1-3), fever or headache Last Admin: 03/18/24 06:28 Dose: 650 mg Documented By: BRODERICK Albuterol Sulfate (Albuterol Sulfate 90 Mcg 8 Gm Inhaler) 2 puff INHALE RQ4H PRN PRN Reason: Shortness Of Breath/Wheezing Albuterol/Ipratropium (Albuterol/Iprat 2.5/0.5mg 3 Ml Ampul.Neb) 3 ml INHALE RQ4H WHILE AWAKE [facility] Last Admin: 03/18/24 11:46 Dose: 3 ml Documented By: NOEL Calcium Carbonate (Calcium Carbonate 750 Mg Tab.Chew) 750 mg PO Q4H PRN PRN Reason: Heartburn Ceftriaxone Sodium (Ceftriaxone Sodium 1 Gm Vial) 1 gm IVPUSH Q24H [facility] Last Admin: 03/17/24 14:43 Dose: 1 gm Documented By: GORDO Duloxetine HCl (Duloxetine Hcl 30 Mg Capsule.Dr) 30 mg PO DAILY [facility] Last Admin: 03/18/24 09:48 Dose: 30 mg Documented By: MARGIE Enoxaparin Sodium (Enoxaparin Sodium 40 Mg/0.4 Ml Syringe) 40 mg SUBCUT Q24H [facility] Last Admin: 03/17/24 14:43 Dose: 40 mg Documented By: GORDO Doxycycline Hyclate 100 mg/ (Sodium Chloride) 250 mls @ 166.67 mls/hr IV Q12H [facility] Last Infusion: 03/18/24 11:32 Dose: Infused Documented By: MARGIE Magnesium Hydroxide (Milk Of Magnesia 30 Ml Oral.Susp) 30 ml PO DAILY PRN PRN Reason: Constipation Melatonin (Melatonin 3 Mg Tablet) 6 mg PO BEDTIME PRN PRN Reason: Insomnia Methylprednisolone Sodium Succinate (Methylprednisolone Sod Succ 40 Mg/Ml Vial) 40 mg IVPUSH Q12H [facility] Last Admin: 03/18/24 06:02 Dose: 40 mg Documented By: BRODERICK Mirtazapine (Mirtazapine 15 Mg Tablet) 45 mg PO BEDTIME [facility] Last Admin: 03/17/24 22:20 Dose: 45 mg Documented By: BRODERICK Non-Formulary Medication (Loxapine Succinate) 100 mg PO BEDTIME [facility] Non-Formulary Medication (Umeclidinium-Vilanterol [Anoro Ellipta]) 1 each INHALE BID [facility] Oxcarbazepine (Oxcarbazepine 150 Mg Tablet) 150 mg PO BID [facility] Last Admin: 03/18/24 09:48 Dose: 150 mg Documented By: MARGIE Pramipexole Dihydrochloride (Pramipexole Di-Hcl 0.125 Mg Tablet) 0.125 mg PO BEDTIME [facility] Last Admin: 03/17/24 22:20 Dose: 0.125 mg Documented By: BRODERICK Sodium Chloride (0.9 % Sodium Chloride Flush 3 Ml Syringe) 3 ml IVFLUSH QSHIFT [facility] Last Admin: 03/18/24 09:48 Dose: 3 ml Documented By: MARGIE Labs 03/18/24 05:41 03/18/24 05:41 Labs: Laboratory Results - last 24 hr 03/18/24 05:41 MCV 73.2 L MCH 22.3 L MCHC 30.5 L RDW 20.4 H Plt Count 303 MPV 10.3 Absolute Nucleated RBC 0.000 Nucleated RBC % (auto) 0.0 Anion Gap 12 Estim Creat Clear Calc 105.1 Estimated GFR > 60 Random Glucose 108 Calcium 9.0 Assessment and Plan (1) COPD with hypoxia: Status: Acute Assessment and Plan: 58-year-old male with COPD and chronic respiratory failure presented to the ED initially with suicidal ideation. He has been found to be hypoxic initially on room air and subsequently even on 3 L down to 87%. His chest imaging shows right-sided pneumonia. He will be admitted for further treatment. Acute on chronic respiratory failure with hypoxia hypoxia/sob somewhat improving Continue O2 with a goal of 90%, CO2 retainer oxygen protocol ordered Likely due to COPD and right-sided pneumonia continue nebs,steriods ,IV ceftriaxone and doxycycline ,wean oxygen Patient is not septic at this time COPD exacerbation Poor air entry globally Will treat with systemic steroids and nebulized bronchodilators Depression, suicidal ideal Continue with one-to-one sitter Eventual evaluation by care team once medically cleared ANA CPAP DVT pptx, Lovenox ongoing need for hypoxia and right lower lobe pneumonia as well as COPD exacerbation with risk factors of substance abuse and suicidality-need nebs,steriods ,antibiotics and oxygen weaning as well as moniter respiratory status . Quality Stroke Does the patient have a stroke diagnosis?: No VTE Prior VTE?: No VTE Risk Level:: Medical - moderate - high VTE Device Contraindication: N/A - Device Ordered VTE Drug Contraindication: N/A - Med Ordered
[2024-03-18] MEDS: LORazepam 1 MG TABLET PO (13:29)
[2024-03-18] MEDS: Enoxaparin Sodium 40 MG/0.4 ML SYRINGE SUBCUT (13:30)
[2024-03-18] MEDS: cefTRIAXone sodium 1 GM VIAL IVPUSH (13:30)
--- NOTE | 2024-03-18 14:31 | MHC.CM.PN ---
Addendum entered by Eli Champion 03/18/24 14:56: IMM 03/18/24 Original Note: Homeless MALE 58 HX Opiate dependence + OD DX PNA. Patient reports independence with all functional mobility. He continues on a 1:1 sitter, SI. Per MD rounds patient is not medically cleared for discharge. [facility] Careteam eval will be ordered once the patient is medically cleared. They will assess for IPLOC need. [facility] INPT Psych vs Jail. Pt will need assist with transport.
[2024-03-18] MEDS: Pregabalin 75 MG CAPSULE PO ×2 (15:24→20:38)
[2024-03-18] MEDS: Calcium Carbonate 750 MG TAB.CHEW PO (15:28)
[2024-03-18] MEDS: Mirtazapine 15 MG TABLET 45 MG PO (20:38)
[2024-03-18] MEDS: Pramipexole Di-HCL 0.125 MG TABLET PO (20:38)
[2024-03-18] MEDS: traZODone HCL 50 MG TABLET 150 MG PO (20:38)
[2024-03-19] VITALS (11 sets, daily range): BP systolic 130–146; BP diastolic 61–75; PULSE 63–81; RESP 15–20; TEMP 36.3–37.3; O2SAT 91–93
[2024-03-19] MEDS: Omeprazole 20 MG CAPSULE.DR PO (06:09)
[2024-03-19] MEDS: methylPREDNISolone Sod Succ 40 MG/ML VIAL IVPUSH (06:10)
[2024-03-19] MEDS: Doxycycline Hyclate 100 MG in 0.9 % Sodium Chloride 250 ML 166.67 MG IV (06:10)
[2024-03-19] MEDS: 0.9 % Sodium Chloride Flush 3 ML SYRINGE IVFLUSH (07:49)
[2024-03-19] MEDS: OXcarbazepine 150 MG TABLET PO ×2 (07:51→20:33)
[2024-03-19] MEDS: Pregabalin 75 MG CAPSULE PO ×3 (07:51→20:33)
[2024-03-19] MEDS: DULoxetine HCl 30 MG CAPSULE.DR PO (07:51)
[2024-03-19] MEDS: Albuterol/Iprat 2.5/0.5MG 3 ML AMPUL.NEB INHALE ×4 (08:43→18:44)
--- NOTE | 2024-03-19 10:49 | PC.NURSE ---
o2 sat 92% at rest on room air, 90% with ambulation on room air.
[2024-03-19] MEDS: cefuroxime axetiL 500 MG TABLET PO (12:56)
--- NOTE | 2024-03-19 13:29 | P.DS_ITS ---
DS: Providers Provider Date of Service: 03/20/24 Date of admission: 03/17/24 13:05 Date of discharge: 03/20/24 Primary care physician: None Physician Consults: 03/16/24 10:14 Consult to Care Team Stat Comment: Reason for consultation: Suicidal 03/17/24 13:10 Consult for Sitter Routine Reason for consultation: SI 03/19/24 10:20 Consult to Care Team Routine Comment: Reason for consultation: medically cleared; SI; LOC 03/19/24 12:37 Addiction Medicine Routine Consulting Provider: Addiction Covering Reason for consultation: previously on suboxone wants to resume Has provider been notified: No 03/19/24 12:58 Consult to Psychiatry Routine Consulting Provider: [facility] Psych Covering Reason for consultation: Attending physician on discharge: Barry Cantrell Discharging clinician: Hilda Orozco DS: Diagnosis Discharge Diagnosis (1) COPD with hypoxia: Status: Acute DS: Summary Hospital Course Hospital Course: From H&P on the day of admission The patient is a 58-year-old male with a past medical history of COPD and chronic respiratory failure with hypoxia on 3 L at baseline, prior provoked DVT no longer on anticoagulation, hypertension, hyperlipidemia, AAN on CPAP, depression and polysubstance use disorder who presented to [facility] ED on 03/16/2024 with suicidal ideation/depression with a plan to overdose on fentanyl. The patient was initially plan for admission to Psychiatry, however while awaiting bed, the patient was noted to be hypoxic down to the mid 80s on room air. Hence, the patient was moved to the main emergency room and further workup was pursued. This included a CT of the chest which showed, amongst others (see full report below), right lower lobe infiltrate. Upon further questioning, the patient denies any significant shortness of breath but does endorse a productive cough of greenish sputum. He denies any fevers or chills. When queried on why he is not using his prescribed oxygen, the patient states that he is homeless. In the ED, the patient has been given dose of prednisone and updraft treatments. He will be initiated on IV ceftriaxone and doxycycline admitted for further care. He currently denies active suicidality but does endorse depression. Acute on chronic respiratory failure with hypoxia due to exacerbation of COPD and pneumonia. Treated with IV ceftriaxone and doxycycline. No evidence of sepsis. Breathing improved, able to ambulate in the hallway without shortness of breath. Patient does have home supplemental oxygen but does not use it due to his history of homelessness, he should use 2L NC and is currently oxygenating well with supplemental oxygen. Systemic steroids weaned to prednisone. will discharge to complete course of oral ant ibiotics and oral prednisone. Continue baseline inhalers. Depression with suicidal ideation Had one-to-one sitter for safety. Seen by Care Team, met criteria for IPLOC and bed search was initiated and he has been accepted to [facility]. Accepting provider Dr. Reilly. Time Attestation Discharge Coordination Time (in mins): 36 Quality: Safe Use of Opioids Does Pt have an Active Cancer Diagnosis on the Problem List?: No Quality: Stroke Does the patient have a stroke diagnosis?: No Physical Exam Vital Signs: Vital Signs: Last Vital Signs Temp 97.8 F 03/19/24 12:00 Pulse 73 03/19/24 12:00 Resp 16 03/19/24 12:00 BP 138/75 03/19/24 12:00 Pulse Ox 93 03/19/24 12:00 O2 Del Method Room Air 03/19/24 12:00 O2 Flow Rate 1 03/19/24 07:37 BMI result Body Mass Index 23.7 Const: General: cooperative, comfortable, no acute distress, alert and awake Nutritional Appearance: average body habitus Orientation/consciousness: patient oriented x3 Resp: Other: no wheeze Effort & Inspection: normal respiratory effort, able to speak in complete sentences, no respiratory distress and no use of accessory muscles Cardio: Rate: regular rate GI: Inspection: No distended Palpation (GI): Soft to palpation and nontender Neuro: General: patient oriented x3 Extrem: General: Yes no pedal edema Discharge Plan Discharge Anticipated Discharge Date/Time: 03/20/24 11:11 Patient Disposition: Home, Self-Care Discharge Diagnosis: COPD exacerbation, PNA Referrals: Physician,None [Primary Care Provider] - 1 Week Discharge Medications: New cefuroxime axetil 500 mg Tablet 500 mg PO Q12H 4 Days Qty: 8 0RF doxycycline monohydrate 100 mg Capsule 100 mg PO Q12H 4 Days Qty: 8 0RF prednisone 20 mg tablet 40 mg PO DAILY 5 Days Qty: 10 0RF Continued albuterol sulfate [Ventolin HFA] 90 mcg/actuation Hfa Aerosol Inhaler 2 puff inhalation RQ4H PRN (Reason: Shortness Of Breath/Wheezing) Qty: 6.7 0RF loxapine succinate 50 mg capsule 100 mg PO BEDTIME duloxetine 30 mg capsule,delayed release(DR/EC) 30 mg PO DAILY mirtazapine 45 mg tablet 45 mg PO BEDTIME oxcarbazepine 150 mg tablet 150 mg PO BID pramipexole 0.125 mg tablet 0.125 mg PO BEDTIME Anoro Ellipta 62.5-25 mcg/actuation blister with device 1 ea INHALATION BID clonidine HCl 0.1 mg tablet 0.1 mg PO Q8H PRN (Reason: anxiety) ipratropium-albuterol 0.5 mg-3 mg(2.5 mg base)/3 mL solution for nebulization 3 ml inhalation Q4H PRN (Reason: Shortness Of Breath Or Wheezing) hydroxyzine pamoate 50 mg capsule 50 mg PO Q6H PRN (Reason: anxiety) pantoprazole 20 mg tablet,delayed release (DR/EC) 20 mg PO DAILY@0630 trazodone 150 mg Tablet 150 mg PO BEDTIME pregabalin [Lyrica] 75 mg Capsule 75 mg PO TID Discharge Orders: Discharge Order (Routine); Ordered 03/20/24 Ordered By: Hilda Orozco Activity on Discharge: As tolerated Stand Alone Forms: Patient Portal Discharge page Print Language: Kinyarwanda Care Plan Goals: See below Health Concerns: COPD exacerbation Pneumonia Plan of Treatment: Complete 4 more days of antibiotics complete 4 more days of prednisone should use 2LNC supplemental oxygen call to schedule follow up appt with PCP after discharge covid negative 03/20 Assessment: See discharge summary
[2024-03-19] MEDS: Enoxaparin Sodium 40 MG/0.4 ML SYRINGE SUBCUT (14:31)
--- NOTE | 2024-03-19 16:16 | PM.PSYCN ---
History of Present Illness Date of Service: 03/19/2024 Chief Complaint: suicidal ideation with plan and intent Reason for Consult: Pt tells CARE Team he will suicide if discharged. Pt is homeless and there are no available beds in [facility] today Requesting physician: Hilda Orozco Sources of Information: patient interviewed, chart reviewed and crisis/core team assessment reviewed HPI Narrative: 58 yo male, history of depression, anxiety, polysubstance use disorder to [facility] ER 03/16 reporting and increase in depressive sx with a plan to overdose on fentanyl to kill himself. Toxicology positive for cocaine, cannabis. Medically, pt reports a history of COPD with orders for O2 and hypoxia on 3L at his baseline, HTN, HLD, Hx of DVT, R Sided Heart Failure, ANA/CPAP, PVD, GERD, Pernicious anemia and acute respiratory failure. In ER eval pt was found to have RLL Pneumonia and acute/chronic respiratory failure, a productive cough and inability to have consistent O2 due to homelessness. Pt was prescribed prednisone, an updraft, IV Ceftin and Doxycycline. Today, his medical treatments are completed and he is being prepared for discharge. He tells CARE team in his eval that if discharged to the street he will use substance and overdose on fentanyl to suicide. Met with pt who is willing to interview and forthcoming. Reports homelessness since October 2023 after leaving a [employer] rooming house. Reports no close family or friends and re-connecting with a girlfriend last week, relapsing, having an argument with this girlfriend and coming to ER for sx of depression/SI. Reports history of suicide attempts x 3 via OD-fentanyl, crack. Team reports consistent in pt since Dec 2023, pt verifies this with [facility], [facility] and [facility]. Reports substance use is dependent on income-alcohol daily to 2-3 times per week, cocaine 1-2 grams daily, fentanyl-only uses when suicidal and no opiates/heroin recently. Reports prior to relapse last week having ~60 days sobriety. Reports hx of success with [facility] and 7 months success with [facility]. Reports by history recovery coaching has been helpful. Discussed placement [id number] reports he cannot as there are too many people and I get too anxious . [facility] was not available for pt today. Pt believes with current medical issues, depression he is unable to manage on the street and will end his life if options are not offered to assist him in mgt of medical/psych issues. Past Psychiatric History: Does not have psychiatric services. Last attended [facility] 04/03/2023. Last inpatient episode June of this year with similar circumstances. Reports not psychotic hallucinating is recently substances. History of suicidal ideation. No history of suicide attempts. Can not remember Medications from the past. Medical Evaluation Reviewed: Yes Review of Systems Review of Systems medically cleared from RLL infiltrate, chronic COPD PMFSH Medical History Varicose veins of right lower extremity Peripheral vascular disease GERD (gastroesophageal reflux disease) History of pernicious anemia Hx of acute respiratory failure Edema Back pain Arthritis History of DVT of lower extremity Depression ANA treated with BiPAP Right-sided heart failure Surgical History History of incisional hernia repair Hx of esophagogastroduodenoscopy Hx of colonoscopy History of total right knee replacement S/P right knee arthroscopy Hx of tracheostomy Hx of total hip arthroplasty History of colostomy reversal History of colon resection H/O gastric bypass Social History: unhoused Since. Girlfriend of a few months. Also struggling with substance use disorder seeking treatment. No children. No legal issues. high School grad. 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 Substance History: alcohol, cocaine, cannabis, hx heroin, uses fentanyl when feeling suicidal Diagnostics Vital Signs (24Hr): Vital Signs - 24 hr 03/18/24 20:00 03/18/24 23:21 03/18/24 23:56 Temperature 98.6 F 97.9 F 97.9 F Pulse Rate 69 77 77 Respiratory Rate 20 20 Blood Pressure 129/60 144/63 H 140/63 H Pulse Oximetry 91 L 91 L 91 L Oxygen Delivery Method Nasal Cannula Nasal Cannula Nasal Cannula Oxygen Flow Rate 1 1 1 03/19/24 04:00 03/19/24 07:37 03/19/24 08:43 Temperature 98.2 F 97.3 F Pulse Rate 79 63 71 Respiratory Rate 20 18 15 Blood Pressure 146/69 H 135/75 Pulse Oximetry 91 L 92 Oxygen Delivery Method Nasal Cannula Nasal Cannula Oxygen Flow Rate 1 1 03/19/24 10:48 03/19/24 11:26 03/19/24 12:00 Temperature 97.8 F Pulse Rate 68 73 Respiratory Rate 16 16 Blood Pressure 138/75 Pulse Oximetry 92 93 Oxygen Delivery Method Room Air Room Air Oxygen Flow Rate 03/19/24 15:32 03/19/24 15:38 Temperature 98.7 F Pulse Rate 75 78 Respiratory Rate 16 16 Blood Pressure 130/67 Pulse Oximetry 91 L Oxygen Delivery Method Room Air Oxygen Flow Rate BMI result Body Mass Index 23.7 Labs 03/18/24 05:41 03/18/24 05:41 Labs: Laboratory Results - last 48 hr 03/18/24 05:41 WBC 9.9 RBC 5.55 Hgb 12.4 L Hct 40.6 L MCV 73.2 L MCH 22.3 L MCHC 30.5 L RDW 20.4 H Plt Count 303 MPV 10.3 Absolute Nucleated RBC 0.000 Nucleated RBC % (auto) 0.0 Sodium 141 Potassium 4.2 Chloride 106 Carbon Dioxide 27 Anion Gap 12 BUN 18 H Creatinine 0.80 Estim Creat Clear Calc 105.1 Estimated GFR > 60 Random Glucose 108 Calcium 9.0 Imaging Radiology Impressions: ITS Impressions Chest X-Ray 03/16/24 10:29 IMPRESSION: *Findings suspicious for centrilobular emphysema. *Possible trace right pleural effusion; otherwise, no definitive acute cardiopulmonary abnormalities identified. No focal pulmonary consolidation. Electronically signed by: Selwyn Frazier MD 03/16/2024 01:33 PM EST RP Chest X-Ray 03/17/24 07:41 IMPRESSION: Streaky bibasilar opacities, left greater than right. This study was presented today March 17, 2024 for interpretation. Stat results provided at this time as requested by referring provider. Electronically signed by: Robyn Lewis MD 03/17/2024 09:13 AM EST RP Chest CT 03/17/24 10:53 IMPRESSION: Airspace disease, posterior medial right lung base and nonspecific subcentimeter pulmonary groundglass nodule right upper lobe. Stable posterior mediastinum lymphadenopathy and smaller right precarinal lymphadenopathy. 5 cm fat density lesion left adrenal gland consider angiomyolipoma. Fleischner guidelines were followed. Electronically signed by: Triston Murillo MD 03/17/2024 12:37 PM EST RP Mental Status Exam Mental Status Exam Patient Appearance: Appropriate Patient Orientation: Person, Place, Time and Situation Level of Consciousness: Alert Patient Behavior: Talkative and Good Eye Contact Mood Description: Depressed Affect Description: Flat Patient Cognition Impaired: No Ability to Follow Directions: Good Speech Pattern: Spontaneous Speech Memory Description: Episodic Impaired Hallucinations: None Delusions: Not Present Thought Content: positive for Suicidal Ideation (active with plan, intent) Depressive Symptoms: Thoughts of /Suicide (active, with plan, intent) Judgement: Poor Medications Medications Current Medications Acetaminophen (Acetaminophen 325 Mg Tablet) 650 mg PO Q6H PRN PRN Reason: Pain, Mild (Pain Scale 1-3), fever or headache Last Admin: 03/18/24 06:28 Dose: 650 mg Albuterol Sulfate (Albuterol Sulfate 90 Mcg 8 Gm Inhaler) 2 puff INHALE RQ4H PRN PRN Reason: Shortness Of Breath/Wheezing Albuterol/Ipratropium (Albuterol/Iprat 2.5/0.5mg 3 Ml Ampul.Neb) 3 ml INHALE RQ4H WHILE AWAKE [facility] Last Admin: 03/19/24 15:38 Dose: 3 ml Calcium Carbonate (Calcium Carbonate 750 Mg Tab.Chew) 750 mg PO Q4H PRN PRN Reason: Heartburn Last Admin: 03/18/24 15:28 Dose: 750 mg Cefuroxime Axetil (Cefuroxime Axetil 500 Mg Tablet) 500 mg PO Q12H [facility] Last Admin: 03/19/24 12:56 Dose: 500 mg Clonidine HCl (Clonidine Hcl 0.1 Mg Tablet) 0.1 mg PO Q8H PRN; Protocol PRN Reason: anxiety Doxycycline Monohydrate (Doxycycline Monohydrate 100 Mg Capsule) 100 mg PO Q12H [facility] Duloxetine HCl (Duloxetine Hcl 30 Mg Capsule.Dr) 30 mg PO DAILY [facility] Last Admin: 03/19/24 07:51 Dose: 30 mg Enoxaparin Sodium (Enoxaparin Sodium 40 Mg/0.4 Ml Syringe) 40 mg SUBCUT Q24H [facility] Last Admin: 03/19/24 14:31 Dose: 40 mg Hydroxyzine HCl (Hydroxyzine Hcl 50 Mg Tablet) 50 mg PO Q6H PRN PRN Reason: anxiety Magnesium Hydroxide (Milk Of Magnesia 30 Ml Oral.Susp) 30 ml PO DAILY PRN PRN Reason: Constipation Melatonin (Melatonin 3 Mg Tablet) 6 mg PO BEDTIME PRN PRN Reason: Insomnia Mirtazapine (Mirtazapine 15 Mg Tablet) 45 mg PO BEDTIME [facility] Last Admin: 03/18/24 20:38 Dose: 45 mg Non-Formulary Medication (Loxapine Succinate) 100 mg PO BEDTIME [facility] Non-Formulary Medication (Umeclidinium-Vilanterol [Anoro Ellipta]) 1 each INHALE BID [facility] Omeprazole (Omeprazole 20 Mg Capsule.Dr) 20 mg PO DAILY@0630 [facility] Last Admin: 03/19/24 06:09 Dose: 20 mg Oxcarbazepine (Oxcarbazepine 150 Mg Tablet) 150 mg PO BID [facility] Last Admin: 03/19/24 07:51 Dose: 150 mg Pramipexole Dihydrochloride (Pramipexole Di-Hcl 0.125 Mg Tablet) 0.125 mg PO BEDTIME [facility] Last Admin: 03/18/24 20:38 Dose: 0.125 mg Prednisone (Prednisone 20 Mg Tablet) 40 mg PO DAILY [facility] Pregabalin (Pregabalin 75 Mg Capsule) 75 mg PO TID [facility] Last Admin: 03/19/24 14:29 Dose: 75 mg Sodium Chloride (0.9 % Sodium Chloride Flush 3 Ml Syringe) 3 ml IVFLUSH QSHIFT [facility] Last Admin: 03/19/24 14:31 Dose: Not Given Trazodone HCl (Trazodone Hcl 50 Mg Tablet) 150 mg PO BEDTIME [facility] Last Admin: 03/18/24 20:38 Dose: 150 mg Allergies Allergies Allergy/AdvReac Type Severity Reaction Status Date / Time oxycodone AdvReac Unknown GI upset Verified 03/16/24 10:24 Assessment & Plan Assessment & Plan (1) Suicidal ideation: Status: Acute Code(s): R45.851 - Suicidal ideations (2) Cocaine use disorder: Status: Acute Code(s): F14.10 - Cocaine abuse, uncomplicated (3) MDD (major depressive disorder): Qualifiers: Active/Remission status: currently active Major depression episode severity: moderate Major depression recurrence: single episode Qualified Code(s): F32.1 - Major depressive disorder, single episode, moderate Status: Acute Code(s): F32.9 - Major depressive disorder, single episode, unspecified Plan Recurrent major depression, anxiety, suicidal ideation, polysubstance use disorder. Medically admitted 03/16 for RLL infiltrate and acute/chronic respiratory failure. Medically, pt is cleared for discharge today, however, endorses SI with plan and active intent to relapse and overdose on fentanyl if sent to the street. Pt has chronic O2 dependency for mgt of COPD and is unable to maintain this being homeless. Temperature range expected to be 18-38 degrees over the next few days which he is concerned about as well. He reports initial presentation was for treatment of depression, SI and this has yet to be addressed. Suggest.... Discharge from medicine Admit to psychiatry Medication evaluation, focused on anxiety which he feels is not well managed to prepare for potential admit to custodial, rest home or CSS if appropriate (hx of success with [facility] and longer term with [facility]) Addiction consultation for recovery coaching Continue with discharge planning, out patient referrals. Total time managing care of this patient today ____ minutes.
--- NOTE | 2024-03-19 16:31 | HO.PM.IMPN ---
Subjective Subjective Date of Service: 03/19/24 Interval History: seen and examined this morning Follow-up for COPD, pneumonia Breathing improving, ambulating without shortness of breath Review of Systems Review of Systems: Yes all other systems are reviewed and are negative Constitutional Constitutional: Denies chills and Denies fever(s) Cardiovascular Cardiovascular: Denies chest pain and Denies dyspnea Respiratory Respiratory: Denies dyspnea Gastrointestinal Gastrointestinal: Denies abdominal pain Physical Exam Vital Signs: Vital Signs: Last Vital Signs Temp 98.7 F 03/19/24 15:32 Pulse 78 03/19/24 15:38 Resp 16 03/19/24 15:38 BP 130/67 03/19/24 15:32 Pulse Ox 91 L 03/19/24 15:32 O2 Del Method Room Air 03/19/24 15:32 O2 Flow Rate 1 03/19/24 07:37 BMI result Body Mass Index 23.7 Const: General: cooperative, comfortable, no acute distress, alert and awake Nutritional Appearance: average body habitus Orientation/consciousness: patient oriented x3 Resp: Effort & Inspection: normal respiratory effort, able to speak in complete sentences, no respiratory distress and no use of accessory muscles Cardio: Rate: regular rate GI: Inspection: No distended Palpation (GI): Soft to palpation and nontender Neuro: General: patient oriented x3, moves all extremities and CN's II-XI intact bilaterally Extrem: General: Yes no pedal edema Objective Data Active Medications Acetaminophen (Acetaminophen 325 Mg Tablet) 650 mg PO Q6H PRN PRN Reason: Pain, Mild (Pain Scale 1-3), fever or headache Last Admin: 03/18/24 06:28 Dose: 650 mg Documented By: BRODERICK Albuterol Sulfate (Albuterol Sulfate 90 Mcg 8 Gm Inhaler) 2 puff INHALE RQ4H PRN PRN Reason: Shortness Of Breath/Wheezing Albuterol/Ipratropium (Albuterol/Iprat 2.5/0.5mg 3 Ml Ampul.Neb) 3 ml INHALE RQ4H WHILE AWAKE [facility] Last Admin: 03/19/24 15:38 Dose: 3 ml Documented By: KERRIE Calcium Carbonate (Calcium Carbonate 750 Mg Tab.Chew) 750 mg PO Q4H PRN PRN Reason: Heartburn Last Admin: 03/18/24 15:28 Dose: 750 mg Documented By: MARGIE Cefuroxime Axetil (Cefuroxime Axetil 500 Mg Tablet) 500 mg PO Q12H [facility] Last Admin: 03/19/24 12:56 Dose: 500 mg Documented By: ABENA Clonidine HCl (Clonidine Hcl 0.1 Mg Tablet) 0.1 mg PO Q8H PRN; Protocol PRN Reason: anxiety Doxycycline Monohydrate (Doxycycline Monohydrate 100 Mg Capsule) 100 mg PO Q12H [facility] Duloxetine HCl (Duloxetine Hcl 30 Mg Capsule.) 30 mg PO DAILY [facility] Last Admin: 03/19/24 07:51 Dose: 30 mg Documented By: ABENA Enoxaparin Sodium (Enoxaparin Sodium 40 Mg/0.4 Ml Syringe) 40 mg SUBCUT Q24H [facility] Last Admin: 03/19/24 14:31 Dose: 40 mg Documented By: ABENA Hydroxyzine HCl (Hydroxyzine Hcl 50 Mg Tablet) 50 mg PO Q6H PRN PRN Reason: anxiety Magnesium Hydroxide (Milk Of Magnesia 30 Ml Oral.Susp) 30 ml PO DAILY PRN PRN Reason: Constipation Melatonin (Melatonin 3 Mg Tablet) 6 mg PO BEDTIME PRN PRN Reason: Insomnia Mirtazapine (Mirtazapine 15 Mg Tablet) 45 mg PO BEDTIME [facility] Last Admin: 03/18/24 20:38 Dose: 45 mg Documented By: TYLER Non-Formulary Medication (Loxapine Succinate) 100 mg PO BEDTIME [facility] Non-Formulary Medication (Umeclidinium-Vilanterol [Anoro Ellipta]) 1 each INHALE BID [facility] Omeprazole (Omeprazole 20 Mg Capsule.) 20 mg PO DAILY@0630 [facility] Last Admin: 03/19/24 06:09 Dose: 20 mg Documented By: TYLER Oxcarbazepine (Oxcarbazepine 150 Mg Tablet) 150 mg PO BID [facility] Last Admin: 03/19/24 07:51 Dose: 150 mg Documented By: ABENA Pramipexole Dihydrochloride (Pramipexole Di-Hcl 0.125 Mg Tablet) 0.125 mg PO BEDTIME [facility] Last Admin: 03/18/24 20:38 Dose: 0.125 mg Documented By: TYLER Prednisone (Prednisone 20 Mg Tablet) 40 mg PO DAILY [facility] Pregabalin (Pregabalin 75 Mg Capsule) 75 mg PO TID [facility] Last Admin: 03/19/24 14:29 Dose: 75 mg Documented By: ABENA Sodium Chloride (0.9 % Sodium Chloride Flush 3 Ml Syringe) 3 ml IVFLUSH QSHIFT [facility] Last Admin: 03/19/24 14:31 Dose: Not Given Documented By: ABENA Non-Admin Reason: No Access Trazodone HCl (Trazodone Hcl 50 Mg Tablet) 150 mg PO BEDTIME [facility] Last Admin: 03/18/24 20:38 Dose: 150 mg Documented By: TYLER Labs 03/18/24 05:41 03/18/24 05:41 Assessment and Plan (1) COPD (chronic obstructive pulmonary disease): Status: Acute (2) COPD with hypoxia: Status: Acute Assessment and Plan: 58-year-old male with COPD and chronic respiratory failure presented to the ED initially with suicidal ideation. He has been found to be hypoxic initially on room air and subsequently even on 3 L down to 87%. His chest imaging shows right-sided pneumonia. He will be admitted for further treatment. Acute on chronic respiratory failure with hypoxia Continue O2 with a goal of 90%, CO2 retainer oxygen protocol ordered due to COPD and right-sided pneumonia continue nebs, wean steriods to prednisone transition to po antibiotics weaned off oxygen Patient is not septic at this time COPD exacerbation Poor air entry globally Will treat with systemic steroids and nebulized bronchodilators Depression with suicidal ideation Continue with one-to-one sitter seen by Care team and psych - meets criteria for IPLOC - bed search initiated - section 12 signed, cant leave AMA ANA CPAP DVT pptx, Lovenox ongoing need for hypoxia and right lower lobe pneumonia as well as COPD exacerbation with risk factors of substance abuse and suicidality-need nebs,steriods ,antibiotics and oxygen weaning as well as moniter respiratory status Quality Stroke Does the patient have a stroke diagnosis?: No VTE Prior VTE?: No VTE Risk Level:: Medical - moderate - high VTE Device Contraindication: N/A - Device Ordered VTE Drug Contraindication: N/A - Med Ordered
[2024-03-19] MEDS: Doxycycline Monohydrate 100 MG CAPSULE PO (17:14)
[2024-03-19] MEDS: hydrOXYzine HCL 50 MG TABLET PO (18:07)
[2024-03-19] MEDS: Mirtazapine 15 MG TABLET 45 MG PO (20:34)
[2024-03-19] MEDS: Pramipexole Di-HCL 0.125 MG TABLET PO (20:34)
[2024-03-19] MEDS: traZODone HCL 50 MG TABLET 150 MG PO (20:34)
[2024-03-20] VITALS (10 sets, daily range): BP systolic 113–141; BP diastolic 56–82; PULSE 64–78; RESP 14–20; TEMP 36.3–37.2; O2SAT 90–99
[2024-03-20] MEDS: cefuroxime axetiL 500 MG TABLET PO ×2 (00:09→13:33)
[2024-03-20] MEDS: Omeprazole 20 MG CAPSULE.DR PO (05:43)
[2024-03-20] MEDS: Doxycycline Monohydrate 100 MG CAPSULE PO ×2 (05:44→17:33)
[2024-03-20] MEDS: Albuterol/Iprat 2.5/0.5MG 3 ML AMPUL.NEB INHALE ×4 (07:43→18:42)
[2024-03-20] MEDS: Pregabalin 75 MG CAPSULE PO ×3 (08:51→20:47)
[2024-03-20] MEDS: predniSONE 20 MG TABLET 40 MG PO (08:51)
[2024-03-20] MEDS: OXcarbazepine 150 MG TABLET PO ×2 (08:51→20:47)
[2024-03-20] MEDS: DULoxetine HCl 30 MG CAPSULE.DR PO (08:51)
--- NOTE | 2024-03-20 09:21 | MHC.CM.PN ---
Call from Robert (hospital?) Patient is being considered for IP psych bed offer. Call transferred to RAD team.
[2024-03-20] MEDS: hydrOXYzine HCL 50 MG TABLET PO (10:38)
[2024-03-20 10:58] LABS: COVID-19 Test Negative (Negative); IDNOW Serial# 08D9AD1C
--- NOTE | 2024-03-20 11:04 | MHC.CARE ---
Pt was accepted to [facility] for today pending a nurse to nurse. ETA will be determined during report. Number is [phone] nurses name at [facility] is Delfina. The accepting provider is Dr. Reilly and the address is [address] [place] [id number]. S3 nurse and CARE team have been notified of placement.
--- NOTE | 2024-03-20 12:25 | MHC.CM.PN ---
Per conversation, report attempted X 1 to LARISA Mathis at [facility]. RN contact number left with manager unit to arona. Plan is for 1 PM transport to [facility], pending nurse to nurse.
--- NOTE | 2024-03-20 13:14 | MHC.CM.PN ---
Per RN, [facility] is now not accepting patient secondary to O2 needs. O2 information was previously given by this RN prior to acceptance of a bed offer. According to care note, patient was accepted at [facility]. Call to Teresa, of admissions, she has confirmed that the bed offer is not longer available. Patient is now again an inpatient bed search. CM Director made aware.
--- NOTE | 2024-03-20 13:23 | MHC.CM.PN ---
PER CONVERSATION WITH ADMISSIONS, IF PATIENT CAN BE OFF O2 FOR WEEKEND, THEY WILL RE-EVALUATE FOR BED OFFER ON Saturday03/23/24. RN MADE AWARE.
[2024-03-20] MEDS: Enoxaparin Sodium 40 MG/0.4 ML SYRINGE SUBCUT (13:33)
--- NOTE | 2024-03-20 14:35 | HO.PM.IMPN ---
Subjective Subjective Date of Service: 03/20/24 Interval History: Seen and examined this morning Follow-up for COPD exacerbation, pneumonia No significant coughing, breathing improving; ambulating without dyspnea Review of Systems Review of Systems: Yes all other systems are reviewed and are negative Constitutional Constitutional: Denies fever(s) Physical Exam Vital Signs: Vital Signs: Last Vital Signs Temp 98.9 F 03/20/24 12:00 Pulse 74 03/20/24 12:00 Resp 16 03/20/24 12:00 BP 129/69 03/20/24 12:00 Pulse Ox 92 03/20/24 12:00 O2 Del Method Room Air 03/20/24 12:00 O2 Flow Rate 2 03/20/24 03:16 BMI result Body Mass Index 23.7 Const: General: cooperative, comfortable, no acute distress, alert and awake Nutritional Appearance: average body habitus Orientation/consciousness: patient oriented x3 Resp: Other: no wheeze Effort & Inspection: normal respiratory effort, able to speak in complete sentences, no respiratory distress and no use of accessory muscles Cardio: Rate: regular rate GI: Inspection: No distended Palpation (GI): Soft to palpation and nontender Neuro: General: patient oriented x3, moves all extremities and CN's II-XI intact bilaterally Extrem: General: Yes no pedal edema Objective Data Active Medications Acetaminophen (Acetaminophen 325 Mg Tablet) 650 mg PO Q6H PRN PRN Reason: Pain, Mild (Pain Scale 1-3), fever or headache Last Admin: 03/18/24 06:28 Dose: 650 mg Documented By: BRODERICK Albuterol Sulfate (Albuterol Sulfate 90 Mcg 8 Gm Inhaler) 2 puff INHALE RQ4H PRN PRN Reason: Shortness Of Breath/Wheezing Albuterol/Ipratropium (Albuterol/Iprat 2.5/0.5mg 3 Ml Ampul.Neb) 3 ml INHALE RQ4H WHILE AWAKE [facility] Last Admin: 03/20/24 11:22 Dose: 3 ml Documented By: KERRIE Calcium Carbonate (Calcium Carbonate 750 Mg Tab.Chew) 750 mg PO Q4H PRN PRN Reason: Heartburn Last Admin: 03/18/24 15:28 Dose: 750 mg Documented By: MARGIE Cefuroxime Axetil (Cefuroxime Axetil 500 Mg Tablet) 500 mg PO Q12H [facility] Last Admin: 03/20/24 13:33 Dose: 500 mg Documented By: CHON Clonidine HCl (Clonidine Hcl 0.1 Mg Tablet) 0.1 mg PO Q8H PRN; Protocol PRN Reason: anxiety Doxycycline Monohydrate (Doxycycline Monohydrate 100 Mg Capsule) 100 mg PO Q12H [facility] Last Admin: 03/20/24 05:44 Dose: 100 mg Documented By: YARA Duloxetine HCl (Duloxetine Hcl 30 Mg Capsule.) 30 mg PO DAILY [facility] Last Admin: 03/20/24 08:51 Dose: 30 mg Documented By: CHON Enoxaparin Sodium (Enoxaparin Sodium 40 Mg/0.4 Ml Syringe) 40 mg SUBCUT Q24H [facility] Last Admin: 03/20/24 13:33 Dose: 40 mg Documented By: CHON Hydroxyzine HCl (Hydroxyzine Hcl 50 Mg Tablet) 50 mg PO Q6H PRN PRN Reason: anxiety Last Admin: 03/20/24 10:38 Dose: 50 mg Documented By: CHON Magnesium Hydroxide (Milk Of Magnesia 30 Ml Oral.Susp) 30 ml PO DAILY PRN PRN Reason: Constipation Melatonin (Melatonin 3 Mg Tablet) 6 mg PO BEDTIME PRN PRN Reason: Insomnia Mirtazapine (Mirtazapine 15 Mg Tablet) 45 mg PO BEDTIME [facility] Last Admin: 03/19/24 20:34 Dose: 45 mg Documented By: YAAR Non-Formulary Medication (Loxapine Succinate) 100 mg PO BEDTIME [facility] Non-Formulary Medication (Umeclidinium-Vilanterol [Anoro Ellipta]) 1 each INHALE BID [facility] Omeprazole (Omeprazole 20 Mg Capsule.) 20 mg PO DAILY@0630 [facility] Last Admin: 03/20/24 05:43 Dose: 20 mg Documented By: YARA Oxcarbazepine (Oxcarbazepine 150 Mg Tablet) 150 mg PO BID [facility] Last Admin: 03/20/24 08:51 Dose: 150 mg Documented By: CHON Pramipexole Dihydrochloride (Pramipexole Di-Hcl 0.125 Mg Tablet) 0.125 mg PO BEDTIME [facility] Last Admin: 03/19/24 20:34 Dose: 0.125 mg Documented By: YARA Prednisone (Prednisone 20 Mg Tablet) 40 mg PO DAILY [facility] Last Admin: 03/20/24 08:51 Dose: 40 mg Documented By: CHON Pregabalin (Pregabalin 75 Mg Capsule) 75 mg PO TID [facility] Last Admin: 03/20/24 08:51 Dose: 75 mg Documented By: CHON Sodium Chloride (0.9 % Sodium Chloride Flush 3 Ml Syringe) 3 ml IVFLUSH QSHIFT [facility] Last Admin: 03/20/24 08:52 Dose: Not Given Documented By: CHON Non-Admin Reason: No Access Trazodone HCl (Trazodone Hcl 50 Mg Tablet) 150 mg PO BEDTIME [facility] Last Admin: 03/19/24 20:34 Dose: 150 mg Documented By: YARA Labs 03/18/24 05:41 03/18/24 05:41 Labs: Laboratory Results - last 24 hr 03/20/24 10:35 COVID-19 ([facility]) Negative COVID-19 Clin Com See Note Assessment and Plan (1) COPD with hypoxia: Status: Acute Assessment and Plan: 58-year-old male with COPD and chronic respiratory failure presented to the ED initially with suicidal ideation. He has been found to be hypoxic initially on room air and subsequently even on 3 L down to 87%. His chest imaging shows right-sided pneumonia. He will be admitted for further treatment. Acute on chronic respiratory failure with hypoxia Continue O2 with a goal of 90%, CO2 retainer oxygen protocol ordered due to COPD and right-sided pneumonia continue nebs, wean steriods to prednisone transition to po antibiotics has rx for 2L [place] but doesn't use due to homelessness; intermittently requiring oxygen Patient is not septic at this time COPD exacerbation transition to po steroids continue nebulized bronchodilators Depression with suicidal ideation Continue with one-to-one sitter seen by Care team and psych - meets criteria for IPLOC - bed search initiated - section 12 signed, cant leave AMA ANA CPAP DVT pptx, Lovenox ongoing need: safe placement due to suicidality Quality Stroke Does the patient have a stroke diagnosis?: No VTE Prior VTE?: No VTE Risk Level:: Medical - moderate - high VTE Device Contraindication: N/A - Device Ordered VTE Drug Contraindication: N/A - Med Ordered
[2024-03-20] MEDS: Mirtazapine 15 MG TABLET 45 MG PO (20:47)
[2024-03-20] MEDS: Pramipexole Di-HCL 0.125 MG TABLET PO (20:47)
[2024-03-20] MEDS: traZODone HCL 50 MG TABLET 150 MG PO (20:47)
[2024-03-21] VITALS (10 sets, daily range): BP systolic 117–137; BP diastolic 56–72; PULSE 65–107; RESP 16–20; TEMP 36.2–37; O2SAT 89–95
--- NOTE | 2024-03-21 00:18 | PC.NURSE ---
patient has been sleeping whenever I go into room and barely answers me therefore unable to answer the suicide risk questions
[2024-03-21] MEDS: cefuroxime axetiL 500 MG TABLET PO ×2 (00:52→12:29)
[2024-03-21] MEDS: Doxycycline Monohydrate 100 MG CAPSULE PO ×2 (05:43→19:38)
[2024-03-21] MEDS: Omeprazole 20 MG CAPSULE.DR PO (05:43)
[2024-03-21] MEDS: Albuterol/Iprat 2.5/0.5MG 3 ML AMPUL.NEB INHALE ×4 (07:30→19:57)
[2024-03-21] MEDS: OXcarbazepine 150 MG TABLET PO ×2 (08:14→20:32)
[2024-03-21] MEDS: DULoxetine HCl 30 MG CAPSULE.DR PO (08:14)
[2024-03-21] MEDS: Pregabalin 75 MG CAPSULE PO ×3 (08:14→20:32)
[2024-03-21] MEDS: predniSONE 20 MG TABLET 40 MG PO (08:14)
--- NOTE | 2024-03-21 09:31 | P.PNIM_ITS ---
Subjective Subjective Date of Service: 03/21/24 Interval History: Seen and examined this morning Follow-up for COPD exacerbation, pneumonia No significant coughing, breathing improving; ambulating without dyspnea Review of Systems Review of Systems: Yes all other systems are reviewed and are negative Constitutional Constitutional: Denies fever(s) Physical Exam 2 Vital Signs: Vital Signs: Last Vital Signs Temp 98.3 F 03/21/24 07:54 Pulse 70 03/21/24 07:54 Resp 19 03/21/24 07:54 BP 131/72 03/21/24 07:54 Pulse Ox 92 03/21/24 07:54 O2 Del Method Room Air 03/21/24 07:54 O2 Flow Rate 2 03/21/24 04:00 BMI result Body Mass Index 23.7 Appearing in no acute distress lung sounds are clear to auscultation heart regular rate rhythm, clear S1, S2 positive bowel sounds, abdomen is soft, nontender neuro patient is alert x3, no focal deficits Objective Data Active Medications Acetaminophen (Acetaminophen 325 Mg Tablet) 650 mg PO Q6H PRN PRN Reason: Pain, Mild (Pain Scale 1-3), fever or headache Last Admin: 03/18/24 06:28 Dose: 650 mg Documented By: BRODERICK Albuterol Sulfate (Albuterol Sulfate 90 Mcg 8 Gm Inhaler) 2 puff INHALE RQ4H PRN PRN Reason: Shortness Of Breath/Wheezing Albuterol/Ipratropium (Albuterol/Iprat 2.5/0.5mg 3 Ml Ampul.Neb) 3 ml INHALE RQ4H WHILE AWAKE [facility] Last Admin: 03/21/24 07:30 Dose: 3 ml Documented By: YUNIER Calcium Carbonate (Calcium Carbonate 750 Mg Tab.Chew) 750 mg PO Q4H PRN PRN Reason: Heartburn Last Admin: 03/18/24 15:28 Dose: 750 mg Documented By: MARGIE Cefuroxime Axetil (Cefuroxime Axetil 500 Mg Tablet) 500 mg PO Q12H [facility] Stop: 03/22/24 12:44 Last Admin: 03/21/24 00:52 Dose: 500 mg Documented By: DIANE Clonidine HCl (Clonidine Hcl 0.1 Mg Tablet) 0.1 mg PO Q8H PRN; Protocol PRN Reason: anxiety Doxycycline Monohydrate (Doxycycline Monohydrate 100 Mg Capsule) 100 mg PO Q12H [facility] Stop: 03/22/24 18:29 Last Admin: 03/21/24 05:43 Dose: 100 mg Documented By: DIANE Duloxetine HCl (Duloxetine Hcl 30 Mg Capsule.) 30 mg PO DAILY [facility] Last Admin: 03/21/24 08:14 Dose: 30 mg Documented By: MARGIE Enoxaparin Sodium (Enoxaparin Sodium 40 Mg/0.4 Ml Syringe) 40 mg SUBCUT Q24H [facility] Last Admin: 03/20/24 13:33 Dose: 40 mg Documented By: CHON Hydroxyzine HCl (Hydroxyzine Hcl 50 Mg Tablet) 50 mg PO Q6H PRN PRN Reason: anxiety Last Admin: 03/20/24 10:38 Dose: 50 mg Documented By: CHON Magnesium Hydroxide (Milk Of Magnesia 30 Ml Oral.Susp) 30 ml PO DAILY PRN PRN Reason: Constipation Melatonin (Melatonin 3 Mg Tablet) 6 mg PO BEDTIME PRN PRN Reason: Insomnia Mirtazapine (Mirtazapine 15 Mg Tablet) 45 mg PO BEDTIME [facility] Last Admin: 03/20/24 20:47 Dose: 45 mg Documented By: DIANE Non-Formulary Medication (Loxapine Succinate) 100 mg PO BEDTIME [facility] Non-Formulary Medication (Umeclidinium-Vilanterol [Anoro Ellipta]) 1 each INHALE BID [facility] Omeprazole (Omeprazole 20 Mg Capsule.) 20 mg PO DAILY@0630 [facility] Last Admin: 03/21/24 05:43 Dose: 20 mg Documented By: DIANE Oxcarbazepine (Oxcarbazepine 150 Mg Tablet) 150 mg PO BID [facility] Last Admin: 03/21/24 08:14 Dose: 150 mg Documented By: MARGIE Pramipexole Dihydrochloride (Pramipexole Di-Hcl 0.125 Mg Tablet) 0.125 mg PO BEDTIME [facility] Last Admin: 03/20/24 20:47 Dose: 0.125 mg Documented By: DIANE Prednisone (Prednisone 20 Mg Tablet) 40 mg PO DAILY [facility] Last Admin: 03/21/24 08:14 Dose: 40 mg Documented By: MARGIE Pregabalin (Pregabalin 75 Mg Capsule) 75 mg PO TID [facility] Last Admin: 03/21/24 08:14 Dose: 75 mg Documented By: MARGIE Sodium Chloride (0.9 % Sodium Chloride Flush 3 Ml Syringe) 3 ml IVFLUSH QSHIFT [facility] Last Admin: 03/21/24 08:13 Dose: Not Given Documented By: MARGIE Non-Admin Reason: No Access Trazodone HCl (Trazodone Hcl 50 Mg Tablet) 150 mg PO BEDTIME [facility] Last Admin: 03/20/24 20:47 Dose: 150 mg Documented By: DIANE Zolpidem Tartrate (Zolpidem Tartrate 5 Mg Tablet) 5 mg PO BEDTIME PRN PRN Reason: Insomnia Labs 03/18/24 05:41 03/18/24 05:41 Labs: Laboratory Results - last 24 hr 03/20/24 10:35 COVID-19 ([facility]) Negative COVID-19 Clin Com See Note Assessment and Plan (1) COPD with hypoxia: Status: Acute Assessment and Plan: 58-year-old male with COPD and chronic respiratory failure presented to the ED initially with suicidal ideation. He has been found to be hypoxic initially on room air and subsequently even on 3 L down to 87%. His chest imaging shows right-sided pneumonia. He will be admitted for further treatment. Acute on chronic respiratory failure with hypoxia Continue O2 with a goal of 90%, CO2 retainer oxygen protocol ordered due to COPD and right-sided pneumonia continue nebs, wean steriods to prednisone transition to po antibiotics has rx for 2L [place] but doesn't use due to homelessness; intermittently requiring oxygen Patient is not septic at this time COPD exacerbation po steroids continue nebulized bronchodilators Depression with suicidal ideation Continue with one-to-one sitter seen by Care team and psych - meets criteria for IPLOC - bed search initiated - section 12 signed, cant leave AMA ANA CPAP DVT pptx, Lovenox ongoing need: safe placement due to suicidality Quality Stroke Does the patient have a stroke diagnosis?: No VTE Prior VTE?: No VTE Risk Level:: Medical - moderate - high VTE Device Contraindication: N/A - Device Ordered VTE Drug Contraindication: N/A - Med Ordered
[2024-03-21] MEDS: hydrOXYzine HCL 50 MG TABLET PO (12:29)
--- NOTE | 2024-03-21 14:04 | P.PNIM_ITS ---
Subjective Subjective Date of Service: 03/21/24 Interval History: Seen and examined this morning Follow-up for COPD exacerbation, pneumonia No significant coughing, breathing improving; ambulating without dyspnea Review of Systems Review of Systems: Yes all other systems are reviewed and are negative Constitutional Constitutional: Denies fever(s) Physical Exam 2 Vital Signs: Vital Signs: Last Vital Signs Temp 98.6 F 03/21/24 11:59 Pulse 107 H 03/21/24 11:59 Resp 18 03/21/24 11:59 BP 117/72 03/21/24 11:59 Pulse Ox 95 03/21/24 11:59 O2 Del Method Nasal Cannula 03/21/24 11:59 O2 Flow Rate 2 03/21/24 11:59 BMI result Body Mass Index 23.7 Appearing in no acute distress lung sounds are clear to auscultation heart regular rate rhythm, clear S1, S2 positive bowel sounds, abdomen is soft, nontender neuro patient is alert x3, no focal deficits Objective Data Active Medications Acetaminophen (Acetaminophen 325 Mg Tablet) 650 mg PO Q6H PRN PRN Reason: Pain, Mild (Pain Scale 1-3), fever or headache Last Admin: 03/18/24 06:28 Dose: 650 mg Documented By: BRODERICK Albuterol Sulfate (Albuterol Sulfate 90 Mcg 8 Gm Inhaler) 2 puff INHALE RQ4H PRN PRN Reason: Shortness Of Breath/Wheezing Albuterol/Ipratropium (Albuterol/Iprat 2.5/0.5mg 3 Ml Ampul.Neb) 3 ml INHALE RQ4H WHILE AWAKE [facility] Last Admin: 03/21/24 11:20 Dose: 3 ml Documented By: YUNIER Calcium Carbonate (Calcium Carbonate 750 Mg Tab.Chew) 750 mg PO Q4H PRN PRN Reason: Heartburn Last Admin: 03/18/24 15:28 Dose: 750 mg Documented By: MARGIE Cefuroxime Axetil (Cefuroxime Axetil 500 Mg Tablet) 500 mg PO Q12H [facility] Stop: 03/22/24 12:44 Last Admin: 03/21/24 12:29 Dose: 500 mg Documented By: MARGIE Clonidine HCl (Clonidine Hcl 0.1 Mg Tablet) 0.1 mg PO Q8H PRN; Protocol PRN Reason: anxiety Doxycycline Monohydrate (Doxycycline Monohydrate 100 Mg Capsule) 100 mg PO Q12H [facility] Stop: 03/22/24 18:29 Last Admin: 03/21/24 05:43 Dose: 100 mg Documented By: DIANE Duloxetine HCl (Duloxetine Hcl 30 Mg Capsule.) 30 mg PO DAILY [facility] Last Admin: 03/21/24 08:14 Dose: 30 mg Documented By: MARGIE Enoxaparin Sodium (Enoxaparin Sodium 40 Mg/0.4 Ml Syringe) 40 mg SUBCUT Q24H [facility] Last Admin: 03/20/24 13:33 Dose: 40 mg Documented By: CHON Hydroxyzine HCl (Hydroxyzine Hcl 50 Mg Tablet) 50 mg PO Q6H PRN PRN Reason: anxiety Last Admin: 03/21/24 12:29 Dose: 50 mg Documented By: MARGIE Magnesium Hydroxide (Milk Of Magnesia 30 Ml Oral.Susp) 30 ml PO DAILY PRN PRN Reason: Constipation Melatonin (Melatonin 3 Mg Tablet) 6 mg PO BEDTIME PRN PRN Reason: Insomnia Mirtazapine (Mirtazapine 15 Mg Tablet) 45 mg PO BEDTIME [facility] Last Admin: 03/20/24 20:47 Dose: 45 mg Documented By: DIANE Non-Formulary Medication (Loxapine Succinate) 100 mg PO BEDTIME [facility] Non-Formulary Medication (Umeclidinium-Vilanterol [Anoro Ellipta]) 1 each INHALE BID [facility] Omeprazole (Omeprazole 20 Mg Capsule.) 20 mg PO DAILY@0630 [facility] Last Admin: 03/21/24 05:43 Dose: 20 mg Documented By: DIANE Oxcarbazepine (Oxcarbazepine 150 Mg Tablet) 150 mg PO BID [facility] Last Admin: 03/21/24 08:14 Dose: 150 mg Documented By: MARGIE Pramipexole Dihydrochloride (Pramipexole Di-Hcl 0.125 Mg Tablet) 0.125 mg PO BEDTIME [facility] Last Admin: 03/20/24 20:47 Dose: 0.125 mg Documented By: DIANE Prednisone (Prednisone 20 Mg Tablet) 40 mg PO DAILY [facility] Last Admin: 03/21/24 08:14 Dose: 40 mg Documented By: MARGIE Pregabalin (Pregabalin 75 Mg Capsule) 75 mg PO TID [facility] Last Admin: 03/21/24 08:14 Dose: 75 mg Documented By: MARGIE Sodium Chloride (0.9 % Sodium Chloride Flush 3 Ml Syringe) 3 ml IVFLUSH QSHIFT [facility] Last Admin: 03/21/24 08:13 Dose: Not Given Documented By: MARGIE Non-Admin Reason: No Access Trazodone HCl (Trazodone Hcl 50 Mg Tablet) 150 mg PO BEDTIME [facility] Last Admin: 03/20/24 20:47 Dose: 150 mg Documented By: DIANE Zolpidem Tartrate (Zolpidem Tartrate 5 Mg Tablet) 5 mg PO BEDTIME PRN PRN Reason: Insomnia Labs 03/18/24 05:41 03/18/24 05:41 Assessment and Plan (1) COPD with hypoxia: Status: Acute Assessment and Plan: 58-year-old male with COPD and chronic respiratory failure presented to the ED initially with suicidal ideation. He has been found to be hypoxic initially on room air and subsequently even on 3 L down to 87%. His chest imaging shows right-sided pneumonia. He will be admitted for further treatment. Acute on chronic respiratory failure with hypoxia Continue O2 with a goal of 90%, CO2 retainer oxygen protocol ordered due to COPD and right-sided pneumonia continue nebs, wean steriods to prednisone transition to po antibiotics has rx for 2L [place] but doesn't use due to homelessness; intermittently requiring oxygen Patient is not septic at this time COPD exacerbation po steroids continue nebulized bronchodilators Depression with suicidal ideation Continue with one-to-one sitter seen by Care team and psych - meets criteria for IPLOC - bed search initiated - section 12 signed, cant leave AMA ANA CPAP DVT pptx, Lovenox ongoing need: safe placement due to suicidality Quality Stroke Does the patient have a stroke diagnosis?: No VTE Prior VTE?: No VTE Risk Level:: Medical - moderate - high VTE Device Contraindication: N/A - Device Ordered VTE Drug Contraindication: N/A - Med Ordered
[2024-03-21] MEDS: Enoxaparin Sodium 40 MG/0.4 ML SYRINGE SUBCUT (14:39)
[2024-03-21] MEDS: traZODone HCL 50 MG TABLET 150 MG PO (20:31)
[2024-03-21] MEDS: Mirtazapine 15 MG TABLET 45 MG PO (20:31)
[2024-03-21] MEDS: Pramipexole Di-HCL 0.125 MG TABLET PO (20:32)
[2024-03-22] VITALS (11 sets, daily range): BP systolic 129–171; BP diastolic 62–88; PULSE 61–80; RESP 16–18; TEMP 36.3–36.8; O2SAT 90–94
[2024-03-22] MEDS: cefuroxime axetiL 500 MG TABLET PO (01:19)
[2024-03-22] MEDS: Doxycycline Monohydrate 100 MG CAPSULE PO (06:01)
[2024-03-22] MEDS: Omeprazole 20 MG CAPSULE.DR PO (06:01)
[2024-03-22] MEDS: Pregabalin 75 MG CAPSULE PO ×3 (09:30→21:07)
[2024-03-22] MEDS: OXcarbazepine 150 MG TABLET PO ×2 (09:30→21:05)
[2024-03-22] MEDS: predniSONE 20 MG TABLET 40 MG PO (09:30)
[2024-03-22] MEDS: DULoxetine HCl 30 MG CAPSULE.DR PO (09:30)
[2024-03-22] MEDS: hydrOXYzine HCL 50 MG TABLET PO ×2 (09:34→16:35)
--- NOTE | 2024-03-22 09:50 | P.PNIM_ITS ---
Subjective Subjective Date of Service: 03/22/24 Interval History: Seen and examined this morning Follow-up for COPD exacerbation, pneumonia No significant coughing, breathing improving; ambulating without dyspnea Review of Systems Review of Systems: Yes all other systems are reviewed and are negative Constitutional Constitutional: Denies fever(s) Physical Exam 2 Vital Signs: Vital Signs: Last Vital Signs Temp 97.3 F 03/22/24 07:13 Pulse 61 03/22/24 07:13 Resp 16 03/22/24 07:13 BP 141/79 H 03/22/24 07:13 Pulse Ox 92 03/22/24 09:38 O2 Del Method Room Air 03/22/24 09:38 O2 Flow Rate 2 03/22/24 07:13 BMI result Body Mass Index 23.7 Appearing in no acute distress lung sounds are clear to auscultation heart regular rate rhythm, clear S1, S2 positive bowel sounds, abdomen is soft, nontender neuro patient is alert x3, no focal deficits Objective Data Active Medications Acetaminophen (Acetaminophen 325 Mg Tablet) 650 mg PO Q6H PRN PRN Reason: Pain, Mild (Pain Scale 1-3), fever or headache Last Admin: 03/18/24 06:28 Dose: 650 mg Documented By: BRODERICK Albuterol Sulfate (Albuterol Sulfate 90 Mcg 8 Gm Inhaler) 2 puff INHALE RQ4H PRN PRN Reason: Shortness Of Breath/Wheezing Albuterol/Ipratropium (Albuterol/Iprat 2.5/0.5mg 3 Ml Ampul.Neb) 3 ml INHALE RQ4H WHILE AWAKE [facility] Last Admin: 03/22/24 07:49 Dose: Not Given Documented By: CARLOS Non-Admin Reason: Patient Refused Calcium Carbonate (Calcium Carbonate 750 Mg Tab.Chew) 750 mg PO Q4H PRN PRN Reason: Heartburn Last Admin: 03/18/24 15:28 Dose: 750 mg Documented By: MARGIE Cefuroxime Axetil (Cefuroxime Axetil 500 Mg Tablet) 500 mg PO Q12H [facility] Stop: 03/22/24 12:44 Last Admin: 03/22/24 01:19 Dose: 500 mg Documented By: DIANE Clonidine HCl (Clonidine Hcl 0.1 Mg Tablet) 0.1 mg PO Q8H PRN; Protocol PRN Reason: anxiety Doxycycline Monohydrate (Doxycycline Monohydrate 100 Mg Capsule) 100 mg PO Q12H [facility] Stop: 03/22/24 18:29 Last Admin: 03/22/24 06:01 Dose: 100 mg Documented By: DIANE Duloxetine HCl (Duloxetine Hcl 30 Mg Capsule.) 30 mg PO DAILY [facility] Last Admin: 03/22/24 09:30 Dose: 30 mg Documented By: MARGIE Enoxaparin Sodium (Enoxaparin Sodium 40 Mg/0.4 Ml Syringe) 40 mg SUBCUT Q24H [facility] Last Admin: 03/21/24 14:39 Dose: 40 mg Documented By: MARGIE Hydroxyzine HCl (Hydroxyzine Hcl 50 Mg Tablet) 50 mg PO Q6H PRN PRN Reason: anxiety Last Admin: 03/22/24 09:34 Dose: 50 mg Documented By: MARGIE Magnesium Hydroxide (Milk Of Magnesia 30 Ml Oral.Susp) 30 ml PO DAILY PRN PRN Reason: Constipation Melatonin (Melatonin 3 Mg Tablet) 6 mg PO BEDTIME PRN PRN Reason: Insomnia Mirtazapine (Mirtazapine 15 Mg Tablet) 45 mg PO BEDTIME [facility] Last Admin: 03/21/24 20:31 Dose: 45 mg Documented By: DIANE Non-Formulary Medication (Loxapine Succinate) 100 mg PO BEDTIME [facility] Non-Formulary Medication (Umeclidinium-Vilanterol [Anoro Ellipta]) 1 each INHALE BID [facility] Omeprazole (Omeprazole 20 Mg Capsule.) 20 mg PO DAILY@0630 [facility] Last Admin: 03/22/24 06:01 Dose: 20 mg Documented By: DIANE Oxcarbazepine (Oxcarbazepine 150 Mg Tablet) 150 mg PO BID [facility] Last Admin: 03/22/24 09:30 Dose: 150 mg Documented By: MARGIE Pramipexole Dihydrochloride (Pramipexole Di-Hcl 0.125 Mg Tablet) 0.125 mg PO BEDTIME [facility] Last Admin: 03/21/24 20:32 Dose: 0.125 mg Documented By: DIANE Prednisone (Prednisone 20 Mg Tablet) 40 mg PO DAILY [facility] Last Admin: 03/22/24 09:30 Dose: 40 mg Documented By: MARGIE Pregabalin (Pregabalin 75 Mg Capsule) 75 mg PO TID [facility] Last Admin: 03/22/24 09:30 Dose: 75 mg Documented By: MARGIE Sodium Chloride (0.9 % Sodium Chloride Flush 3 Ml Syringe) 3 ml IVFLUSH QSHIFT [facility] Last Admin: 03/22/24 09:29 Dose: Not Given Documented By: MARGIE Non-Admin Reason: No Access Trazodone HCl (Trazodone Hcl 50 Mg Tablet) 150 mg PO BEDTIME [facility] Last Admin: 03/21/24 20:31 Dose: 150 mg Documented By: DIANE Zolpidem Tartrate (Zolpidem Tartrate 5 Mg Tablet) 5 mg PO BEDTIME PRN PRN Reason: Insomnia Labs 03/18/24 05:41 03/18/24 05:41 Assessment and Plan (1) COPD with hypoxia: Status: Acute Assessment and Plan: 58-year-old male with COPD and chronic respiratory failure presented to the ED initially with suicidal ideation. He has been found to be hypoxic initially on room air and subsequently even on 3 L down to 87%. His chest imaging shows right-sided pneumonia. He will be admitted for further treatment. Acute on chronic respiratory failure with hypoxia Continue O2 with a goal of 90%, CO2 retainer oxygen protocol ordered due to COPD and right-sided pneumonia continue nebs, wean steriods to prednisone po antibiotics has rx for 2L NC but doesn't use due to homelessness; intermittently requiring oxygen COPD exacerbation po steroids continue nebulized bronchodilators Depression with suicidal ideation Continue with one-to-one sitter seen by Care team and psych - meets criteria for IPLOC - bed search initiated - section 12 signed, cant leave AMA ANA CPAP DVT pptx, Lovenox ongoing need: safe placement due to suicidality Quality Stroke Does the patient have a stroke diagnosis?: No VTE Prior VTE?: No VTE Risk Level:: Medical - moderate - high VTE Device Contraindication: N/A - Device Ordered VTE Drug Contraindication: N/A - Med Ordered
[2024-03-22] MEDS: Albuterol/Iprat 2.5/0.5MG 3 ML AMPUL.NEB INHALE ×3 (10:08→20:18)
[2024-03-22] MEDS: Enoxaparin Sodium 40 MG/0.4 ML SYRINGE SUBCUT (14:27)
[2024-03-22] MEDS: Acetaminophen 325 MG TABLET 650 MG PO (21:04)
[2024-03-22] MEDS: Pramipexole Di-HCL 0.125 MG TABLET PO (21:05)
[2024-03-22] MEDS: traZODone HCL 50 MG TABLET 150 MG PO (21:06)
[2024-03-22] MEDS: Mirtazapine 15 MG TABLET 45 MG PO (21:06)
[2024-03-23] VITALS (7 sets, daily range): BP systolic 121–164; BP diastolic 63–79; PULSE 64–81; RESP 16–20; TEMP 36.1–36.7; O2SAT 89–92
[2024-03-23] MEDS: Omeprazole 20 MG CAPSULE.DR PO (05:10)
[2024-03-23] MEDS: Albuterol/Iprat 2.5/0.5MG 3 ML AMPUL.NEB INHALE (07:50)
[2024-03-23] MEDS: predniSONE 20 MG TABLET 40 MG PO (08:06)
[2024-03-23] MEDS: Pregabalin 75 MG CAPSULE PO ×2 (08:06→15:04)
[2024-03-23] MEDS: DULoxetine HCl 30 MG CAPSULE.DR PO (08:06)
[2024-03-23] MEDS: OXcarbazepine 150 MG TABLET PO (08:06)
--- NOTE | 2024-03-23 08:50 | P.PNIM_ITS ---
Subjective Subjective Date of Service: 03/23/24 Interval History: Seen and examined this morning Follow-up for COPD exacerbation, pneumonia No significant coughing, breathing improving; ambulating without dyspnea Review of Systems Review of Systems: Yes all other systems are reviewed and are negative Constitutional Constitutional: Denies fever(s) Physical Exam 2 Vital Signs: Vital Signs: Last Vital Signs Temp 96.9 F 03/23/24 08:00 Pulse 67 03/23/24 08:00 Resp 16 03/23/24 08:00 BP 139/78 03/23/24 08:00 Pulse Ox 89 L 03/23/24 08:00 O2 Del Method Room Air 03/23/24 08:00 O2 Flow Rate 2 03/22/24 07:13 BMI result Body Mass Index 23.7 Appearing in no acute distress lung sounds are clear to auscultation heart regular rate rhythm, clear S1, S2 positive bowel sounds, abdomen is soft, nontender neuro patient is alert x3, no focal deficits Objective Data Active Medications Acetaminophen (Acetaminophen 325 Mg Tablet) 650 mg PO Q6H PRN PRN Reason: Pain, Mild (Pain Scale 1-3), fever or headache Last Admin: 03/22/24 21:04 Dose: 650 mg Documented By: CHRISTINA Albuterol Sulfate (Albuterol Sulfate 90 Mcg 8 Gm Inhaler) 2 puff INHALE RQ4H PRN PRN Reason: Shortness Of Breath/Wheezing Albuterol/Ipratropium (Albuterol/Iprat 2.5/0.5mg 3 Ml Ampul.Neb) 3 ml INHALE RQ4H WHILE AWAKE [facility] Last Admin: 03/23/24 07:50 Dose: 3 ml Documented By: NILAY Calcium Carbonate (Calcium Carbonate 750 Mg Tab.Chew) 750 mg PO Q4H PRN PRN Reason: Heartburn Last Admin: 03/18/24 15:28 Dose: 750 mg Documented By: MARGIE Clonidine HCl (Clonidine Hcl 0.1 Mg Tablet) 0.1 mg PO Q8H PRN; Protocol PRN Reason: anxiety Duloxetine HCl (Duloxetine Hcl 30 Mg Capsule.Dr) 30 mg PO DAILY [facility] Last Admin: 03/23/24 08:06 Dose: 30 mg Documented By: SHIRA Enoxaparin Sodium (Enoxaparin Sodium 40 Mg/0.4 Ml Syringe) 40 mg SUBCUT Q24H [facility] Last Admin: 03/22/24 14:27 Dose: 40 mg Documented By: MARGIE Hydroxyzine HCl (Hydroxyzine Hcl 50 Mg Tablet) 50 mg PO Q6H PRN PRN Reason: anxiety Last Admin: 03/22/24 16:35 Dose: 50 mg Documented By: MARGIE Magnesium Hydroxide (Milk Of Magnesia 30 Ml Oral.Susp) 30 ml PO DAILY PRN PRN Reason: Constipation Melatonin (Melatonin 3 Mg Tablet) 6 mg PO BEDTIME PRN PRN Reason: Insomnia Mirtazapine (Mirtazapine 15 Mg Tablet) 45 mg PO BEDTIME [facility] Last Admin: 03/22/24 21:06 Dose: 45 mg Documented By: CHRISTINA Non-Formulary Medication (Loxapine Succinate) 100 mg PO BEDTIME [facility] Non-Formulary Medication (Umeclidinium-Vilanterol [Anoro Ellipta]) 1 each INHALE BID [facility] Omeprazole (Omeprazole 20 Mg Capsule.) 20 mg PO DAILY@0630 [facility] Last Admin: 03/23/24 05:10 Dose: 20 mg Documented By: CHRISTINA Oxcarbazepine (Oxcarbazepine 150 Mg Tablet) 150 mg PO BID [facility] Last Admin: 03/23/24 08:06 Dose: 150 mg Documented By: SHIRA Pramipexole Dihydrochloride (Pramipexole Di-Hcl 0.125 Mg Tablet) 0.125 mg PO BEDTIME [facility] Last Admin: 03/22/24 21:05 Dose: 0.125 mg Documented By: CHRISTINA Prednisone (Prednisone 20 Mg Tablet) 40 mg PO DAILY [facility] Last Admin: 03/23/24 08:06 Dose: 40 mg Documented By: SHIRA Pregabalin (Pregabalin 75 Mg Capsule) 75 mg PO TID [facility] Last Admin: 03/23/24 08:06 Dose: 75 mg Documented By: SHIRA Sodium Chloride (0.9 % Sodium Chloride Flush 3 Ml Syringe) 3 ml IVFLUSH QSHIFT [facility] Last Admin: 03/23/24 08:06 Dose: Not Given Documented By: SHIRA Non-Admin Reason: No Access Trazodone HCl (Trazodone Hcl 50 Mg Tablet) 150 mg PO BEDTIME [facility] Last Admin: 03/22/24 21:06 Dose: 150 mg Documented By: CHRISTINA Zolpidem Tartrate (Zolpidem Tartrate 5 Mg Tablet) 5 mg PO BEDTIME PRN PRN Reason: Insomnia Labs 03/18/24 05:41 03/18/24 05:41 Assessment and Plan (1) COPD with hypoxia: Status: Acute Assessment and Plan: 58-year-old male with COPD and chronic respiratory failure presented to the ED initially with suicidal ideation. He has been found to be hypoxic initially on room air and subsequently even on 3 L down to 87%. His chest imaging shows right-sided pneumonia. He will be admitted for further treatment. Acute on chronic respiratory failure with hypoxia Continue O2 with a goal of 90%, CO2 retainer oxygen protocol ordered due to COPD and right-sided pneumonia continue nebs, wean IV steriods to prednisone, now on 30mg po antibiotics completed has rx for 2L NC but doesn't use due to homelessness; intermittently requiring oxygen COPD exacerbation po steroids bronchodilators prn Depression with suicidal ideation Continue with one-to-one sitter seen by Care team and psych - meets criteria for IPLOC - bed search initiated - section 12 signed, cant leave AMA ANA CPAP DVT pptx, Lovenox ongoing need: safe placement due to suicidality Quality Stroke Does the patient have a stroke diagnosis?: No VTE Prior VTE?: No VTE Risk Level:: Medical - moderate - high VTE Device Contraindication: N/A - Device Ordered VTE Drug Contraindication: N/A - Med Ordered
--- NOTE | 2024-03-23 11:10 | MHC.CM.PN ---
Per MD rounds patient is medically cleared for psych transfer. [facility] is conducting a bed search. Discharge is pending a bed offer. CM will follow.
[2024-03-23] MEDS: hydrOXYzine HCL 50 MG TABLET PO (11:34)
--- NOTE | 2024-03-23 14:39 | P.DS_ITS ---
DS: Providers Provider Date of Service: 03/23/24 Date of admission: 03/17/24 13:05 Primary care physician: None Physician Consults: 03/16/24 10:14 Consult to Care Team Stat Comment: Reason for consultation: Suicidal 03/17/24 13:10 Consult for Sitter Routine Reason for consultation: SI 03/19/24 10:20 Consult to Care Team Routine Comment: Reason for consultation: medically cleared; SI; LOC 03/19/24 12:37 Addiction Medicine Routine Consulting Provider: Addiction Covering Reason for consultation: previously on suboxone wants to resume Has provider been notified: No 03/19/24 12:58 Consult to Psychiatry Routine Consulting Provider: [facility] Psych Covering Reason for consultation: SI DS: Diagnosis Discharge Diagnosis (1) COPD with hypoxia: Status: Acute DS: Summary Hospital Course Hospital Course: From H&P on the day of admission The patient is a 58-year-old male with a past medical history of COPD and chronic respiratory failure with hypoxia on 3 L at baseline, prior provoked DVT no longer on anticoagulation, hypertension, hyperlipidemia, ANA on CPAP, depression and polysubstance use disorder who presented to [facility] ED on 03/16/2024 with suicidal ideation/depression with a plan to overdose on fentanyl. The patient was initially plan for admission to Psychiatry, however while awaiting bed, the patient was noted to be hypoxic down to the mid 80s on room air. Hence, the patient was moved to the main emergency room and further workup was pursued. This included a CT of the chest which showed, amongst others (see full report below), right lower lobe infiltrate. Upon further questioning, the patient denies any significant shortness of breath but does endorse a productive cough of greenish sputum. He denies any fevers or chills. When queried on why he is not using his prescribed oxygen, the patient states that he is homeless. In the ED, the patient has been given dose of prednisone and updraft treatments. He will be initiated on IV ceftriaxone and doxycycline admitted for further care. He currently denies active suicidality but does endorse depression. Acute on chronic respiratory failure with hypoxia due to exacerbation of COPD and pneumonia. Treated with IV ceftriaxone and doxycycline. No evidence of sepsis. Breathing improved, able to ambulate in the hallway without shortness of breath. Patient does have home supplemental oxygen but does not use it due to his history of homelessness, he should use 2L NC and is currently oxygenating well on room air. Systemic steroids weaned to prednisone. will discharge to complete course of oral prednisone. Completed course of abx. Continue baseline inhalers. Depression with suicidal ideation Had one-to-one sitter for safety. Seen by Care Team, met criteria for IPLOC and bed search was initiated and he has been accepted to [facility]. Accepting provider Dr. Reilly. Time Attestation Discharge Coordination Time (in mins): 38 Quality: Safe Use of Opioids Does Pt have an Active Cancer Diagnosis on the Problem List?: No Quality: Stroke Does the patient have a stroke diagnosis?: No Physical Exam Vital Signs: Vital Signs: Last Vital Signs Temp 97.2 F 03/23/24 13:05 Pulse 80 03/23/24 13:05 Resp 16 03/23/24 13:05 BP 157/79 H 03/23/24 13:05 Pulse Ox 90 L 03/23/24 13:05 O2 Del Method Room Air 03/23/24 13:05 O2 Flow Rate 2 03/22/24 07:13 BMI result Body Mass Index 23.7 Appearing in no acute distress head is normocephalic atraumatic eyes pupils are PERRLA sclera is anicteric mouth throat mucous membranes are intact and moist neck is supple no lymphadenopathy, no JVD noted lung sounds are clear to auscultation heart regular rate rhythm, clear S1, S2 positive bowel sounds, abdomen is soft, nontender neuro patient is alert x3, no focal deficits Discharge Plan Discharge Anticipated Discharge Date/Time: 03/20/24 11:11 Patient Disposition: Xfer Psychiatric Hosp Discharge Diagnosis: COPD exacerbation, PNA Discharge Medications: New prednisone 10 mg tablet See Taper PO DIRECTED Qty: 12 0RF Taper: Prednisone 30 mg daily for 2 Days and 0 Hour 20 mg daily for 2 Days and 0 Hour 10 mg daily for 2 Days and 0 Hour Rx Instructions: see taper instructions Continued albuterol sulfate [Ventolin HFA] 90 mcg/actuation Hfa Aerosol Inhaler 2 puff inhalation RQ4H PRN (Reason: Shortness Of Breath/Wheezing) Qty: 6.7 0RF loxapine succinate 50 mg capsule 100 mg PO BEDTIME duloxetine 30 mg capsule,delayed release(DR/EC) 30 mg PO DAILY mirtazapine 45 mg tablet 45 mg PO BEDTIME oxcarbazepine 150 mg tablet 150 mg PO BID pramipexole 0.125 mg tablet 0.125 mg PO BEDTIME Anoro Ellipta 62.5-25 mcg/actuation blister with device 1 ea INHALATION BID clonidine HCl 0.1 mg tablet 0.1 mg PO Q8H PRN (Reason: anxiety) ipratropium-albuterol 0.5 mg-3 mg(2.5 mg base)/3 mL solution for nebulization 3 ml inhalation Q4H PRN (Reason: Shortness Of Breath Or Wheezing) hydroxyzine pamoate 50 mg capsule 50 mg PO Q6H PRN (Reason: anxiety) pantoprazole 20 mg tablet,delayed release (DR/EC) 20 mg PO DAILY@0630 trazodone 150 mg Tablet 150 mg PO BEDTIME pregabalin [Lyrica] 75 mg Capsule 75 mg PO TID Discharge Orders: Discharge Order (Routine); Ordered 03/23/24 Ordered By: Christina Dunne Diet: Advance to usual diet Activity on Discharge: As tolerated Stand Alone Forms: Patient Portal Discharge page Print Language: Latvian Care Plan Goals: Transfer to psychiatric floor for mental health care Health Concerns: COPD exacerbation Pneumonia Plan of Treatment: call to schedule follow up appt with PCP after discharge covid negative 03/20 Complete prednisone taper Assessment: See discharge summary
[2024-03-23] MEDS: Enoxaparin Sodium 40 MG/0.4 ML SYRINGE SUBCUT (15:04)
--- NOTE | 2024-03-23 15:15 | MHC.CM.PN ---
Patient is discharged today to [facility] Psych bed on M-5. He will transport via with staff.
--- NOTE | 2024-03-23 16:19 | PC.NURSE ---
report called to Yeny Pérez
== END 2024-03-23 16:16 | DRG 193 ==
LOC: HO.ED 03-17 11:17 → HO.EDOVER 03-17 13:13 → HO.S3 03-17 19:40
PROVIDERS: Emergency Medicine; Physician Assistant Medical; Registered Nurse Emergency; Admitting Provider Family Medicine; Emergency Provider Emergency Medicine; Visit Provider Nurse Practitioner Acute Care
DX: J18.9 Pneumonia, unspecified organism (principal); J96.21 Acute and chronic respiratory failure with hypoxia; J44.0 Chronic obstructive pulmonary disease with (acute) lower respiratory infection; R45.851 Suicidal ideations; F32.1 Major depressive disorder, single episode, moderate; J44.1 Chronic obstructive pulmonary disease with (acute) exacerbation; F14.10 Cocaine abuse, uncomplicated; G47.33 Obstructive sleep apnea (adult) (pediatric); E78.5 Hyperlipidemia, unspecified; F17.210 Nicotine dependence, cigarettes, uncomplicated; Z71.6 Tobacco abuse counseling; Z99.81 Dependence on supplemental oxygen; Z91.198 Patient's noncompliance with other medical treatment and regimen for other reason; Z20.822 Contact with and (suspected) exposure to COVID-19; Z79.899 Other long term (current) drug therapy
CPT/HCPCS: 0241U; 36415; 71046; 71250; 80048; 80053; 80143; 80179; 80307; 81001; 82803; 83880; 84145; 84484; 85025; 85027; 87635; 93005; 94640; 99285; J0696; J1650; J2919; S9485

== ENCOUNTER → 2024-03-16 10:15 | Outpatient (BNV) | payer MEDICARE, MEDICAID, SELFPAY | PROVIDERS: Emergency Provider Emergency Medicine; Visit Provider Internal Medicine Cardiovascular Disease | DX: R09.02 Hypoxemia (principal) | CPT/HCPCS: 93010 ==

== ENCOUNTER → 2024-03-17 10:53 | Outpatient (BNV) | payer MEDICARE, MEDICAID, SELFPAY | PROVIDERS: Emergency Provider Emergency Medicine; Visit Provider Radiology Diagnostic Radiology | DX: R91.1 Solitary pulmonary nodule (principal); R59.0 Localized enlarged lymph nodes; J98.4 Other disorders of lung | CPT/HCPCS: 71250 ==

== ENCOUNTER → 2024-03-17 13:05 | Outpatient (BNV) | payer MEDICARE, SELFPAY | PROVIDERS: Admitting Provider Family Medicine; Emergency Provider Emergency Medicine; Visit Provider Clinical Nurse Specialist Psychiatric/Mental Health, Adult | DX: F32.1 Major depressive disorder, single episode, moderate (principal); F14.10 Cocaine abuse, uncomplicated; R45.851 Suicidal ideations | CPT/HCPCS: 99222 ==

== ENCOUNTER → 2024-03-17 13:05 | Outpatient (BNV) | payer MEDICARE, MEDICAID, SELFPAY | PROVIDERS: Admitting Provider Family Medicine; Emergency Provider Emergency Medicine; Visit Provider Family Medicine | DX: J44.9 Chronic obstructive pulmonary disease, unspecified (principal) | CPT/HCPCS: 99223; 99232; 99239 ==

== ENCOUNTER 2024-03-23 15:21 | Inpatient (IN) | payer MEDICARE, MEDICAID, SELFPAY ==
[2024-03-23 17:26] VITALS: BP 136/70; PULSE 73; RESP 20; TEMP 36.9; O2SAT 93; BMI 23.7
--- NOTE | 2024-03-23 18:55 | PC.ADMIT ---
Nicholas was admitted to m5 from S[facility] on a CV for the treatment of SI w/intention to overdose. He has a medical history of COPD, hyperlipidemia, HTN, ANA on CPAP, DVT, and CHF class III. He has PRN oxygen w/ a prescription of 3L at baseline but has been noncompliant due to homelessness. Tox screen was done and (+) for cocaine & marijuana. Nicholas is ambulatory and independent with ADLs. He reports recent stressors as his partner dying last June, being homeless, and ongoing addiction to cocaine. He experiences AH/VH at times but denies hearing voices/seeing things today. He denies current SI/HI (no plan or intent) but does endorse hopelessness. He is psych/dual group appropriate and he is fall risk. Sleep and appetite are reported as ?good?. NKA. Skin check completed with no concerning findings.?
[2024-03-23] MEDS: Acetaminophen 325 MG TABLET 650 MG PO (20:08)
[2024-03-23] MEDS: traZODone HCL 50 MG TABLET PO (20:09)
[2024-03-23] MEDS: hydrOXYzine HCL 25 MG TABLET PO (20:30)
--- NOTE | 2024-03-24 06:33 | PC.RT ---
pt has been non-complaint with cpap while [place] [facility]. He refused more than 3 days in a row. Therefore Cpap order is sc;d and DR. Cisneros is aware.
[2024-03-24 08:00] VITALS: BP 152/70; PULSE 65; RESP 16; TEMP 36.9; O2SAT 92
--- NOTE | 2024-03-24 09:04 | HO.PSYADMNOT ---
HPI Date of Service: 03/24/24 Chief Complaint: Depression Sources of Information: patient interviewed, chart reviewed and crisis/core team assessment reviewed HPI Subjective Notes: Hughes Warning, Conditional Voluntary and 3 Day Narrative: Patient is a 58-year-old male with history of depression, COPD, chronic respiratory failure with hypoxia (assessed for 2 L O2), history of DVT (no longer on anticoagulation), hyperlipidemia, ANA (hx of CPAP), long history of chronic, daily crack cocaine use, alcohol use disorder, remote opioid abuse who presents for ongoing depression and SI to overdose on fentanyl. Patient was psychiatrically hospitalized for January 27 2 in the [place] area; he was discharged, homeless, feeling helpless with return of SI and within 2-3 days presented to the ED for SI. Patient initially medically admitted for acute on chronic respiratory failure with hypoxemia secondary to exacerbation of COPD and right sided pneumonia; he was treated with IV antibiotics and medically cleared on prednisone taper. Patient presents with depression and hopeless thoughts. He says suicidality is waning. He would like a substance abuse program to go to. Patient reports depression has been more prevalent since this past summer when he found his girlfriend and then a few months later was evicted from his housing. Denies AVH; denies any history of manic type episodes or behaviors. Past Psychiatric History: Psychiatric admissions. [facility] (1st admission?) June 2023 following suicide attempt by overdose for depression after he found his girlfriend [facility] December 2023 for depression/SI [facility] psych admission January 17 through March 13 2024 Limited medication trials: Zoloft Does not have psychiatric services. Last attended [facility] 04/03/2023. Medical Evaluation Reviewed: Yes Discussed prednisone taper PENDING SALE TO [facility] Medical History (Updated 03/24/24 @ 17:23 by Sorin Cisneros MD) ANA (obstructive sleep apnea) Varicose veins of right lower extremity Peripheral vascular disease GERD (gastroesophageal reflux disease) History of pernicious anemia Hx of acute respiratory failure Edema Back pain Arthritis History of DVT of lower extremity Depression ANA treated with BiPAP Right-sided heart failure Surgical History History of incisional hernia repair Hx of esophagogastroduodenoscopy Hx of colonoscopy History of total right knee replacement S/P right knee arthroscopy Hx of tracheostomy Hx of total hip arthroplasty History of colostomy reversal History of colon resection H/O gastric bypass Family History: Deferred Social History: Girlfriend 07/03/2023; patient found her. No children. No legal issues. high School grad. 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 -homeless since this past October 2023 when he was evicted Substance History: Crack cocaine abuse, daily for decades; 1 year of sobriety in 2019 History of daily alcoholism; currently not drinking History of opioid addiction; has not used for years (used once this past June when his girlfriend ) Trauma History: Denies Diagnostics Vital Signs (24Hr): Vital Signs - 24 hr 03/23/24 17:26 03/24/24 08:00 Temperature 98.4 F 98.5 F Pulse Rate 73 65 Respiratory Rate 20 16 Blood Pressure 136/70 152/70 H Pulse Oximetry 93 92 Oxygen Delivery Method Room Air Room Air BMI result Body Mass Index 23.7 Meds/Allergies Meds Home Medications ?Medication ?Instructions ?Recorded ?Confirmed ?Type clonidine HCl 0.1 mg tablet 0.1 mg PO Q8H PRN anxiety 03/16/24 03/16/24 History duloxetine 30 mg capsule,delayed 30 mg PO DAILY 03/16/24 03/16/24 History release hydroxyzine pamoate 50 mg capsule 50 mg PO Q6H PRN anxiety 03/16/24 03/16/24 History ipratropium 0.5 mg-albuterol 3 mg 3 ml inhalation Q4H PRN Shortness 03/16/24 03/16/24 History (2.5 mg base)/3 mL nebulization Of Breath Or Wheezing soln loxapine succinate 50 mg capsule 100 mg PO BEDTIME 03/16/24 03/16/24 History mirtazapine 45 mg tablet 45 mg PO BEDTIME 03/16/24 03/16/24 History oxcarbazepine 150 mg tablet 150 mg PO BID 03/16/24 03/16/24 History pantoprazole 20 mg tablet,delayed 20 mg PO DAILY@0630 03/16/24 03/16/24 History release pramipexole 0.125 mg tablet 0.125 mg PO BEDTIME 03/16/24 03/16/24 History umeclidinium 62.5 mcg-vilanterol 1 ea inhalation BID 03/16/24 03/16/24 History 25 mcg/actuation powdr for inhalation (Anoro Ellipta) pregabalin 75 mg capsule (Lyrica) 75 mg PO TID 03/17/24 03/17/24 History trazodone 150 mg tablet 150 mg PO BEDTIME 03/17/24 03/17/24 History Allergies Allergies Allergy/AdvReac Type Severity Reaction Status Date / Time oxycodone AdvReac Unknown GI upset Verified 03/16/24 10:24 Mental Status Exam Mental Status Exam Narrative: Pt is alert and oriented; behavior is cooperative, calm; patient is not in distress; dressed in hospital attire disheveled; mood is described as depressed and affect congruent, downcast; eye contact appropriate; Speech is normal slowed and soft; psychomotor retardation present; thought process is organized and goal directed; Thought content is on tx; otherwise pertinent to relevant topics and without any delusional content, paranoid ideations or grandiosity; passive SI; no HI. Denies AVH. There is no evidence of perceptual disturbance. Patients insight and judgment impaired Assessment & Plan Assessment & Plan (1) MDD (major depressive disorder): Status: Acute Qualifiers: Major depression recurrence: single episode Active/Remission status: currently active Major depression episode severity: moderate Qualified Code(s): F32.1 - Major depressive disorder, single episode, moderate Code(s): F32.9 - Major depressive disorder, single episode, unspecified (2) Cocaine use disorder: Status: Acute Code(s): F14.10 - Cocaine abuse, uncomplicated (3) CHF (congestive heart failure), NYHA class III: Status: Acute Code(s): I50.9 - Heart failure, unspecified (4) Lumbar arthropathy: Status: Acute Code(s): M47.816 - Spondylosis without myelopathy or radiculopathy, lumbar region (5) ANA (obstructive sleep apnea): Status: Acute Code(s): G47.33 - Obstructive sleep apnea (adult) (pediatric) (6) COPD with hypoxia: Status: Acute Code(s): J44.9 - Chronic obstructive pulmonary disease, unspecified Plan Patient is a 58-year-old male with history of depression, COPD, chronic respiratory failure with hypoxia (assessed for 2 L O2), history of DVT (no longer on anticoagulation), hyperlipidemia, ANA (hx of CPAP), long history of chronic, daily crack cocaine use, alcohol use disorder, remote opioid abuse who presents for ongoing depression and SI to overdose on fentanyl. Patient was psychiatrically hospitalized for January 17 -Mar 13 in the [facility]; he was discharged, homeless, feeling helpless with return of SI and within 2-3 days presented to the ED for SI. Patient initially medically admitted for acute on chronic respiratory failure with hypoxemia secondary to exacerbation of COPD and right sided pneumonia; he was treated with IV antibiotics and medically cleared on prednisone taper. Patient presents with depression and hopeless thoughts. He says suicidality is waning. He would like a substance abuse program to go to. Patient reports depression has been more prevalent since this past summer when he found his girlfriend and then a few months later was evicted from his housing. Denies AVH; denies any history of manic type episodes or behaviors. Formulation/clinical reasoning: Patient reports history of depression that he has treated with substance abuse. This past December 2023, time patient started using medications for depression. Patient remains embroiled in substance abuse which contributes to quick return of depression. Patients homelessness and significant medical comorbidities including ANA not on CPAP which also very likely contribute towards mood. Will continue medications from recent psychiatric hospitalization since patient said his mood was pretty good there: mirtazapine, Cymbalta, Trileptal. Pt was also on Loxapine, though no reported history of psychotic or manic symptoms Plan: CV Q 15 minute checks Continue home medications Continue prednisone taper Continue mirtazapine 45 mg q.h.s. Continue Cymbalta 30 mg daily; will likely taper Continue Trileptal 150 mg b.i.d. Continue Loxapine 100mg daily (currently not on formulary) Patient educated on: diagnosis, medication risk/benefits, substance abuse and medical condition Informed Consent: understands Reason for continued inpatient stay Substantial Risk for: rapid decompensation Statement Statement: I have reviewed the history and physical and performed a pertinent examination on my patient. No changes have occurred unless specified. If the History and Physical was not performed prior to admission, the Hospitalist's service will be consulted for completing the admission physical. Time Spent With Patient Time: Total time managing care of this patient today ____ minutes.
[2024-03-24] MEDS: Omeprazole 20 MG CAPSULE.DR PO (09:13)
[2024-03-24] MEDS: DULoxetine HCl 30 MG CAPSULE.DR PO (09:13)
[2024-03-24] MEDS: OXcarbazepine 150 MG TABLET PO ×2 (09:13→20:28)
[2024-03-24] MEDS: Acetaminophen 325 MG TABLET 650 MG PO (09:13)
[2024-03-24 09:19] LABS: Estimated Average Glucose 105 mg/dL; Hemoglobin A1C 114.6966 umol/L; Hemoglobin A1c % 5.3 % (<6.0); Total Hemoglobin (HGBA1C) 3321.7378 umol/L
[2024-03-24 09:42] LABS: Cholesterol 169 mg/dL (<200); HDL Cholesterol 61 mg/dL (>40); LDL Cholesterol Calculated 86 mg/dL (<100); Triglycerides 110 mg/dL (<150)
[2024-03-24 10:59] VITALS: BP 142/77
[2024-03-24] MEDS: cloNIDine HCL 0.1 MG TABLET PO ×2 (10:59→20:28)
[2024-03-24] MEDS: hydrOXYzine HCL 50 MG TABLET PO ×2 (11:00→20:27)
[2024-03-24] MEDS: ANORO ELLIPTA 1 EACH INHALE (11:01)
[2024-03-24] MEDS: predniSONE 10 MG TABLET 30 MG PO (11:22)
[2024-03-24] MEDS: Pregabalin 75 MG CAPSULE PO ×3 (11:22→20:28)
--- NOTE | 2024-03-24 12:58 | MHC.CARE ---
Delisa Layne from [facility] authorized 5 days 03/23-03/27/24 [phone] In necessary, review on with Afshan [phone]
[2024-03-24 20:00] VITALS: BP 136/71; PULSE 77; RESP 16; TEMP 37; O2SAT 94
[2024-03-24 20:28] VITALS: BP 136/71
[2024-03-24] MEDS: Pramipexole Di-HCL 0.125 MG TABLET PO (20:28)
[2024-03-24] MEDS: Mirtazapine 15 MG TABLET 45 MG PO (20:28)
[2024-03-25] MEDS: Omeprazole 20 MG CAPSULE.DR PO (06:40)
[2024-03-25 07:41] VITALS: BP 144/90; PULSE 68; RESP 18; TEMP 37.1; O2SAT 88
[2024-03-25] MEDS: ANORO ELLIPTA 1 EACH INHALE (08:20)
[2024-03-25] MEDS: OXcarbazepine 150 MG TABLET PO ×2 (08:21→21:20)
[2024-03-25] MEDS: predniSONE 10 MG TABLET 30 MG PO (08:21)
[2024-03-25] MEDS: Pregabalin 75 MG CAPSULE PO ×3 (08:21→21:20)
[2024-03-25] MEDS: DULoxetine HCl 30 MG CAPSULE.DR PO (08:21)
--- NOTE | 2024-03-25 09:43 | HO.PSYCHPN ---
Subjective Subjective Date of Service: 03/25/24 Reason For Visit: Depression Healthcare Proxy: No Interim History: met with patient; discussed with team pt remains depressed; passive SI. He reports trouble sleeping and says is usually on trazodone 150mg qhs; agrees to 100mg tonight with prn's available. Discussed medication for cocaine cravings and pt reports he's been on baclofen beore which has helped; wants to get back on now. Also discussed suboxone which he says has helped in past; agrees to hold off from starting this now. Mental Status Exam Mental Status Exam Narrative: Pt is alert and oriented; behavior is cooperative, calm; patient is not in distress; dressed in hospital attire disheveled; mood is described as depressed and affect congruent, downcast; eye contact appropriate; Speech is normal slowed and soft; psychomotor retardation present; thought process is organized and goal directed; Thought content is on tx; otherwise pertinent to relevant topics and without any delusional content, paranoid ideations or grandiosity; passive SI; no HI. Denies AVH. There is no evidence of perceptual disturbance. Patients insight and judgment impaired Diagnostics Vital Signs (24Hr): Vital Signs - 24 hr 03/24/24 10:59 03/24/24 20:00 03/24/24 20:28 Temperature 98.6 F Pulse Rate 77 Respiratory Rate 16 Blood Pressure 142/77 H 136/71 136/71 Pulse Oximetry 94 Oxygen Delivery Method Room Air 03/25/24 07:41 Temperature 98.7 F Pulse Rate 68 Respiratory Rate 18 Blood Pressure 144/90 H Pulse Oximetry 88 L Oxygen Delivery Method Room Air BMI result Body Mass Index 23.7 Labs Labs: Laboratory Results - last 48 hr 03/24/24 08:43 Estimat Average Glucose 105 Hemoglobin A1c % 5.3 Triglycerides 110 Cholesterol 169 LDL Cholesterol, Calc 86 HDL Cholesterol 61 Medications Medications Current Medications Acetaminophen (Acetaminophen 325 Mg Tablet) 650 mg PO Q6H PRN PRN Reason: Headache/Pain Mild Scale (1-3) Last Admin: 03/24/24 09:13 Dose: 650 mg Al Hydroxide/Mg Hydroxide (Magnesium Hydrox/Alum Hydrox 30 Ml Oral.Susp) 30 ml PO Q6H PRN PRN Reason: Heartburn/Nausea Albuterol Sulfate (Albuterol Sulfate 90 Mcg 8 Gm Inhaler) 2 puff INHALE RQ4H PRN PRN Reason: Shortness of Breath Albuterol/Ipratropium (Albuterol/Iprat 2.5/0.5mg 3 Ml Ampul.Neb) 3 ml INHALE RQ4H WHILE AWAKE PRN PRN Reason: shortness of breath Clonidine HCl (Clonidine Hcl 0.1 Mg Tablet) 0.1 mg PO Q8H PRN; Protocol PRN Reason: anxiety Last Admin: 03/24/24 20:28 Dose: 0.1 mg Duloxetine HCl (Duloxetine Hcl 30 Mg Capsule.Dr) 30 mg PO DAILY [facility] Last Admin: 03/25/24 08:21 Dose: 30 mg Hydroxyzine HCl (Hydroxyzine Hcl 50 Mg Tablet) 50 mg PO Q6H PRN PRN Reason: Anxiety Last Admin: 03/24/24 20:27 Dose: 50 mg Magnesium Hydroxide (Milk Of Magnesia 30 Ml Oral.Susp) 30 ml PO DAILY PRN PRN Reason: Constipation Mirtazapine (Mirtazapine 15 Mg Tablet) 45 mg PO BEDTIME [facility] Last Admin: 03/24/24 20:28 Dose: 45 mg Nicotine (Nicotine 21 Mg Patch.Td24) 21 mg TRANSDERMA DAILY PRN PRN Reason: smoking cessation Nicotine Polacrilex (Nicotine Polacrilex 2 Mg Gum) 4 mg BUCCAL Q2H PRN PRN Reason: Nicotine Cravings Non-Formulary Medication (Loxapine) 100 mg PO BEDTIME [facility] Patient Own Medication (Anoro Ellipta 62.5mcg/25mcg [Umiclidium And Vilanterol]) 1 each INHALE RDAILY [facility] Last Admin: 03/25/24 08:20 Dose: 1 each Omeprazole (Omeprazole 20 Mg Capsule.Dr) 20 mg PO DAILY@0630 [facility] Last Admin: 03/25/24 06:40 Dose: 20 mg Oxcarbazepine (Oxcarbazepine 150 Mg Tablet) 150 mg PO BID [facility] Last Admin: 03/25/24 08:21 Dose: 150 mg Pramipexole Dihydrochloride (Pramipexole Di-Hcl 0.125 Mg Tablet) 0.125 mg PO BEDTIME [facility] Last Admin: 03/24/24 20:28 Dose: 0.125 mg Prednisone (Prednisone 10 Mg Tablet) 30 mg PO DAILY [facility] Stop: 03/25/24 23:00 Last Admin: 03/25/24 08:21 Dose: 30 mg Prednisone (Prednisone 20 Mg Tablet) 20 mg PO DAILY [facility] Stop: 03/27/24 23:00 Prednisone (Prednisone 10 Mg Tablet) 10 mg PO DAILY [facility] Stop: 03/29/24 23:00 Pregabalin (Pregabalin 75 Mg Capsule) 75 mg PO TID [facility] Last Admin: 03/25/24 08:21 Dose: 75 mg Allergies Allergies Allergy/AdvReac Type Severity Reaction Status Date / Time oxycodone AdvReac Unknown GI upset Verified 03/16/24 10:24 Assessment & Plan Assessment & Plan (1) MDD (major depressive disorder): Qualifiers: Active/Remission status: currently active Major depression episode severity: moderate Major depression recurrence: single episode Qualified Code(s): F32.1 - Major depressive disorder, single episode, moderate Status: Acute Code(s): F32.9 - Major depressive disorder, single episode, unspecified (2) Cocaine use disorder: Status: Acute Code(s): F14.10 - Cocaine abuse, uncomplicated (3) CHF (congestive heart failure), NYHA class III: Status: Acute Code(s): I50.9 - Heart failure, unspecified (4) Lumbar arthropathy: Status: Acute Code(s): M47.816 - Spondylosis without myelopathy or radiculopathy, lumbar region (5) ANA (obstructive sleep apnea): Status: Acute Code(s): G47.33 - Obstructive sleep apnea (adult) (pediatric) (6) COPD with hypoxia: Status: Acute Code(s): J44.9 - Chronic obstructive pulmonary disease, unspecified Plan Patient is a 58-year-old male with history of depression, COPD, chronic respiratory failure with hypoxia (assessed for 2 L O2), history of DVT (no longer on anticoagulation), hyperlipidemia, ANA (hx of CPAP), long history of chronic, daily crack cocaine use, alcohol use disorder, remote opioid abuse who presents for ongoing depression and SI to overdose on fentanyl. Patient was psychiatrically hospitalized for January 17 -Mar 13 in the [facility]; he was discharged, homeless, feeling helpless with return of SI and within 2-3 days presented to the ED for SI. Patient initially medically admitted for acute on chronic respiratory failure with hypoxemia secondary to exacerbation of COPD and right sided pneumonia; he was treated with IV antibiotics and medically cleared on prednisone taper. Patient presents with depression and hopeless thoughts. He says suicidality is waning. He would like a substance abuse program to go to. Patient reports depression has been more prevalent since this past summer when he found his girlfriend and then a few months later was evicted from his housing. Denies AVH; denies any history of manic type episodes or behaviors. Formulation/clinical reasoning: Patient reports history of depression that he has treated with substance abuse. This past December 2023, 1st time patient started using medications for depression. Patient remains embroiled in substance abuse which contributes to quick return of depression. Patients homelessness and significant medical comorbidities including ANA not on CPAP which also very likely contribute towards mood. Will continue medications from recent psychiatric hospitalization since patient said his mood was pretty good there: mirtazapine, Cymbalta, Trileptal. Pt was also on Loxapine, though no reported history of psychotic or manic symptoms Hospital course: 03/25 pt remains depressed; passive SI. He reports trouble sleeping and says is usually on trazodone 150mg qhs; agrees to 100mg tonight with prn's available. Discussed medication for cocaine cravings and pt reports he's been on baclofen before which has helped; wants to get back on now. Also discussed suboxone which he says has helped in past; agrees to hold off from starting this now. -also discussed dispo, trouble getting into program. Pt says he wished he stayed at last hospitalization in [place] since they were working on housing. he regrets leaving prematurely, saying he left to go use. Plan: CV Q 15 minute checks start baclofen start trazodone 100mg; may increase Continue home medications Continue prednisone taper Continue mirtazapine 45 mg q.h.s. Continue Cymbalta 30 mg daily; will likely taper Continue Trileptal 150 mg b.i.d. Continue Loxapine 100mg daily (currently not on formulary) Patient educated on: diagnosis, medication risk/benefits and substance abuse Informed Consent: understands Reason for continued inpatient stay Substantial Risk for: rapid decompensation Time Spent With Patient Time: Total time managing care of this patient today ____ minutes.
[2024-03-25] MEDS: hydrOXYzine HCL 50 MG TABLET PO ×2 (10:11→18:23)
[2024-03-25] MEDS: Acetaminophen 325 MG TABLET 650 MG PO (10:11)
[2024-03-25 14:10] VITALS: BP 139/76
[2024-03-25] MEDS: cloNIDine HCL 0.1 MG TABLET PO (14:10)
[2024-03-25] MEDS: Ibuprofen 600 MG TABLET PO (16:25)
[2024-03-25 20:00] VITALS: BP 120/61; PULSE 68; RESP 16; TEMP 36.6; O2SAT 95
[2024-03-25] MEDS: Baclofen 10 MG TABLET PO (21:20)
[2024-03-25] MEDS: Pramipexole Di-HCL 0.125 MG TABLET PO (21:20)
[2024-03-25] MEDS: traZODone HCL 100 MG TABLET PO (21:20)
[2024-03-25] MEDS: Mirtazapine 15 MG TABLET 45 MG PO (21:20)
[2024-03-26 08:38] VITALS: BP 123/60; PULSE 62; RESP 16; TEMP 36.9; O2SAT 94
[2024-03-26] MEDS: ANORO ELLIPTA 1 EACH INHALE (08:51)
[2024-03-26] MEDS: Pregabalin 75 MG CAPSULE PO ×3 (08:51→20:50)
[2024-03-26] MEDS: DULoxetine HCl 30 MG CAPSULE.DR PO (08:51)
[2024-03-26] MEDS: OXcarbazepine 150 MG TABLET PO ×2 (08:51→20:50)
[2024-03-26] MEDS: Baclofen 10 MG TABLET PO ×2 (08:51→20:50)
[2024-03-26] MEDS: predniSONE 20 MG TABLET PO (08:51)
[2024-03-26] MEDS: Omeprazole 20 MG CAPSULE.DR PO (08:51)
[2024-03-26] MEDS: hydrOXYzine HCL 50 MG TABLET PO ×2 (09:14→14:52)
[2024-03-26] MEDS: Ibuprofen 600 MG TABLET PO (12:03)
[2024-03-26 20:00] VITALS: BP 109/54; PULSE 76; RESP 16; TEMP 36.4; O2SAT 93
[2024-03-26] MEDS: Pramipexole Di-HCL 0.125 MG TABLET PO (20:50)
[2024-03-26] MEDS: traZODone HCL 100 MG TABLET PO (20:50)
[2024-03-26] MEDS: LOXAPINE 50 MG 100 EACH PO (20:50)
[2024-03-26] MEDS: Mirtazapine 15 MG TABLET 45 MG PO (20:50)
[2024-03-26] MEDS: traZODone HCL 50 MG TABLET PO (21:14)
--- NOTE | 2024-03-26 23:01 | HO.PSYCHPN ---
Subjective Subjective Date of Service: 03/26/24 Reason For Visit: Depression Interim History: met with pt; discussed with team still depressed, struggling w/ hopelessness. No SI and hoping for help w aftercare. Pt has trouble sleeping and asks for increase in Trazodone to 150mg Also asks to restart Loxapine which helped mood in past Mental Status Exam Mental Status Exam Narrative: Pt is alert and oriented; behavior is cooperative, calm; patient is not in distress; dressed in casual attire, adequate grooming and hygiene; mood is described as depressed and affect congruent, downcast; eye contact appropriate; Speech is normal rate, volume and prosody; still psychomotor retardation present; thought process is organized and goal directed; Thought content is on tx, aftercare; otherwise pertinent to relevant topics and without any delusional content, paranoid ideations or grandiosity; intermittent passive SI; no HI. Denies AVH. There is no evidence of perceptual disturbance. Patients insight and judgment improving. Diagnostics Vital Signs (24Hr): Vital Signs - 24 hr 03/26/24 08:38 03/26/24 20:00 Temperature 98.4 F 97.6 F Pulse Rate 62 76 Respiratory Rate 16 16 Blood Pressure 123/60 109/54 L Pulse Oximetry 94 93 Oxygen Delivery Method Room Air Room Air BMI result Body Mass Index 23.7 Medications Medications Current Medications Acetaminophen (Acetaminophen 325 Mg Tablet) 650 mg PO Q6H PRN PRN Reason: Headache/Pain Mild Scale (1-3) Last Admin: 03/25/24 10:11 Dose: 650 mg Al Hydroxide/Mg Hydroxide (Magnesium Hydrox/Alum Hydrox 30 Ml Oral.Susp) 30 ml PO Q6H PRN PRN Reason: Heartburn/Nausea Albuterol Sulfate (Albuterol Sulfate 90 Mcg 8 Gm Inhaler) 2 puff INHALE RQ4H PRN PRN Reason: Shortness of Breath Albuterol/Ipratropium (Albuterol/Iprat 2.5/0.5mg 3 Ml Ampul.Neb) 3 ml INHALE RQ4H WHILE AWAKE PRN PRN Reason: shortness of breath Baclofen (Baclofen 10 Mg Tablet) 10 mg PO BID [facility] Last Admin: 03/26/24 20:50 Dose: 10 mg Clonidine HCl (Clonidine Hcl 0.1 Mg Tablet) 0.1 mg PO Q8H PRN; Protocol PRN Reason: anxiety Last Admin: 03/25/24 14:10 Dose: 0.1 mg Duloxetine HCl (Duloxetine Hcl 30 Mg Capsule.) 30 mg PO DAILY [facility] Last Admin: 03/26/24 08:51 Dose: 30 mg Hydroxyzine HCl (Hydroxyzine Hcl 50 Mg Tablet) 50 mg PO Q6H PRN PRN Reason: Anxiety Last Admin: 03/26/24 14:52 Dose: 50 mg Ibuprofen (Ibuprofen 600 Mg Tablet) 600 mg PO Q6H PRN PRN Reason: Pain, Mild (Pain Scale 1-3) Last Admin: 03/26/24 12:03 Dose: 600 mg Magnesium Hydroxide (Milk Of Magnesia 30 Ml Oral.Susp) 30 ml PO DAILY PRN PRN Reason: Constipation Mirtazapine (Mirtazapine 15 Mg Tablet) 45 mg PO BEDTIME [facility] Last Admin: 03/26/24 20:50 Dose: 45 mg Nicotine (Nicotine 21 Mg Patch.Td24) 21 mg TRANSDERMA DAILY PRN PRN Reason: smoking cessation Nicotine Polacrilex (Nicotine Polacrilex 2 Mg Gum) 4 mg BUCCAL Q2H PRN PRN Reason: Nicotine Cravings Non-Formulary Medication (Loxapine 50 Mg) 100 mg PO BEDTIME [facility] Last Admin: 03/26/24 20:50 Dose: 100 mg Patient Own Medication (Anoro Ellipta 62.5mcg/25mcg [Umiclidium And Vilanterol]) 1 each INHALE RDAILY [facility] Last Admin: 03/26/24 08:51 Dose: 1 each Omeprazole (Omeprazole 20 Mg Capsule.) 20 mg PO DAILY@0630 [facility] Last Admin: 03/26/24 08:51 Dose: 20 mg Oxcarbazepine (Oxcarbazepine 150 Mg Tablet) 150 mg PO BID [facility] Last Admin: 03/26/24 20:50 Dose: 150 mg Pramipexole Dihydrochloride (Pramipexole Di-Hcl 0.125 Mg Tablet) 0.125 mg PO BEDTIME [facility] Last Admin: 03/26/24 20:50 Dose: 0.125 mg Prednisone (Prednisone 20 Mg Tablet) 20 mg PO DAILY [facility] Stop: 03/27/24 23:00 Last Admin: 03/26/24 08:51 Dose: 20 mg Prednisone (Prednisone 10 Mg Tablet) 10 mg PO DAILY [facility] Stop: 03/29/24 23:00 Pregabalin (Pregabalin 75 Mg Capsule) 75 mg PO TID [facility] Last Admin: 03/26/24 20:50 Dose: 75 mg Trazodone HCl (Trazodone Hcl 100 Mg Tablet) 100 mg PO BEDTIME [facility] Last Admin: 03/26/24 20:50 Dose: 100 mg Trazodone HCl (Trazodone Hcl 50 Mg Tablet) 50 mg PO BEDTIME PRN PRN Reason: continued insomia Last Admin: 03/26/24 21:14 Dose: 50 mg Allergies Allergies Allergy/AdvReac Type Severity Reaction Status Date / Time oxycodone AdvReac Unknown GI upset Verified 03/16/24 10:24 Assessment & Plan Assessment & Plan (1) MDD (major depressive disorder): Qualifiers: Active/Remission status: currently active Major depression episode severity: moderate Major depression recurrence: single episode Qualified Code(s): F32.1 - Major depressive disorder, single episode, moderate Status: Acute Code(s): F32.9 - Major depressive disorder, single episode, unspecified (2) Cocaine use disorder: Status: Acute Code(s): F14.10 - Cocaine abuse, uncomplicated (3) CHF (congestive heart failure), NYHA class III: Status: Acute Code(s): I50.9 - Heart failure, unspecified (4) Lumbar arthropathy: Status: Acute Code(s): M47.816 - Spondylosis without myelopathy or radiculopathy, lumbar region (5) ANA (obstructive sleep apnea): Status: Acute Code(s): G47.33 - Obstructive sleep apnea (adult) (pediatric) (6) COPD with hypoxia: Status: Acute Code(s): J44.9 - Chronic obstructive pulmonary disease, unspecified Plan Patient is a 58-year-old male with history of depression, COPD, chronic respiratory failure with hypoxia (assessed for 2 L O2), history of DVT (no longer on anticoagulation), hyperlipidemia, ANA (hx of CPAP), long history of chronic, daily crack cocaine use, alcohol use disorder, remote opioid abuse who presents for ongoing depression and SI to overdose on fentanyl. Patient was psychiatrically hospitalized for January 17 -Mar 13 in the [facility]; he was discharged, homeless, feeling helpless with return of SI and within 2-3 days presented to the ED for SI. Patient initially medically admitted for acute on chronic respiratory failure with hypoxemia secondary to exacerbation of COPD and right sided pneumonia; he was treated with IV antibiotics and medically cleared on prednisone taper. Patient presents with depression and hopeless thoughts. He says suicidality is waning. He would like a substance abuse program to go to. Patient reports depression has been more prevalent since this past summer when he found his girlfriend and then a few months later was evicted from his housing. Denies AVH; denies any history of manic type episodes or behaviors. Formulation/clinical reasoning: Patient reports history of depression that he has treated with substance abuse. This past December 2023, 1st time patient started using medications for depression. Patient remains embroiled in substance abuse which contributes to quick return of depression. Patients homelessness and significant medical comorbidities including ANA not on CPAP which also very likely contribute towards mood. Will continue medications from recent psychiatric hospitalization since patient said his mood was pretty good there: mirtazapine, Cymbalta, Trileptal. Pt was also on Loxapine, though no reported history of psychotic or manic symptoms Hospital course: 03/25 pt remains depressed; passive SI. He reports trouble sleeping and says is usually on trazodone 150mg qhs; agrees to 100mg tonight with prn's available. Discussed medication for cocaine cravings and pt reports he's been on baclofen before which has helped; wants to get back on now. Also discussed suboxone which he says has helped in past; agrees to hold off from starting this now. -also discussed dispo, trouble getting into program. Pt says he wished he stayed at last hospitalization in [place] since they were working on housing. he regrets leaving prematurely, saying he left to go use. 03/26 still depressed, struggling w/ hopelessness. No SI and hoping for help w aftercare. Pt has trouble sleeping and asks for increase in Trazodone to 150mg; Will restart Loxapine since pt remains depressed and this med seemed to help mood in past -pt ambivalent about starting suboxone but thinks it might help w/ cravings Plan: CV Q 15 minute checks START Loxapine 100mg daily Continue baclofen INcrease to trazodone 150mg; may increase Continue home medications Continue prednisone taper Continue mirtazapine 45 mg q.h.s. Continue Cymbalta 30 mg daily; will likely taper Continue Trileptal 150 mg b.i.d. Patient educated on: diagnosis and medication risk/benefits Informed Consent: understands Reason for continued inpatient stay Substantial Risk for: stable for discharge and rapid decompensation Time Spent With Patient Time: Total time managing care of this patient today ____ minutes.
[2024-03-27 09:09] VITALS: BP 142/80; PULSE 68; RESP 16; TEMP 36.6; O2SAT 68
[2024-03-27] MEDS: predniSONE 20 MG TABLET PO (09:13)
[2024-03-27] MEDS: Omeprazole 20 MG CAPSULE.DR PO (09:13)
[2024-03-27] MEDS: ANORO ELLIPTA 1 EACH INHALE (09:13)
[2024-03-27] MEDS: DULoxetine HCl 30 MG CAPSULE.DR PO (09:13)
[2024-03-27] MEDS: Pregabalin 75 MG CAPSULE PO ×3 (09:13→22:00)
[2024-03-27] MEDS: OXcarbazepine 150 MG TABLET PO ×2 (09:13→22:00)
[2024-03-27] MEDS: Baclofen 10 MG TABLET PO ×2 (09:13→22:00)
[2024-03-27] MEDS: hydrOXYzine HCL 50 MG TABLET PO ×2 (09:19→16:34)
[2024-03-27 13:16] VITALS: BP 145/79; PULSE 82; O2SAT 96
[2024-03-27 13:17] VITALS: BP 145/79
[2024-03-27] MEDS: cloNIDine HCL 0.1 MG TABLET PO (13:17)
--- NOTE | 2024-03-27 14:19 | P.PNPSI_ITS ---
Subjective Subjective Date of Service: 03/27/24 Reason For Visit: Depression Subjective Notes: Conditional Voluntary Interim History: Patient reports feeling anxious and depressed today; pt stated, I'm thinking about the future and where I'm going to go from here. I'm worried about not having anywhere to go . Pt reports suicidal ideation with plan to overdose on fentanyl. denies HI/VH/AH. Medication Compliance: Yes Side effects from medications: No Review of Systems Constitutional: Reports as per HPI Eyes: Reports as per HPI Reports as per HPI Cardiovascular: Reports as per HPI Respiratory: Reports as per HPI Gastrointestinal: Reports as per HPI Genitourinary: Reports as per HPI Musculoskeletal: Reports as per HPI Skin/Breast: Reports as per HPI Reports as per HPI Psychiatric: Reports as per HPI Endocrine: Reports as per HPI Hematologic/Lymphatic: Reports as per HPI Allergic/Immunologic: Reports as per HPI Mental Status Exam Mental Status Exam Narrative: Pt is alert and oriented; behavior is cooperative; dressed in casual attire; mood is described as anxious and depressed ; eye contact appropriate; Speech is normal rate, volume and not pressured; thought process is organized; Thought content is on tx; denies HI/VH/AH. Pt reports suicidal ideation with plan to overdose on fentanyl. Diagnostics Vital Signs (24Hr): Vital Signs - 24 hr 03/26/24 20:00 03/27/24 09:09 03/27/24 13:16 Temperature 97.6 F 97.8 F Pulse Rate 76 68 82 Respiratory Rate 16 16 Blood Pressure 109/54 L 142/80 H 145/79 H Pulse Oximetry 93 68 L 96 Oxygen Delivery Method Room Air Room Air 03/27/24 13:17 Temperature Pulse Rate Respiratory Rate Blood Pressure 145/79 H Pulse Oximetry Oxygen Delivery Method BMI result Body Mass Index 23.7 Medications Medications Current Medications Acetaminophen (Acetaminophen 325 Mg Tablet) 650 mg PO Q6H PRN PRN Reason: Headache/Pain Mild Scale (1-3) Last Admin: 03/25/24 10:11 Dose: 650 mg Al Hydroxide/Mg Hydroxide (Magnesium Hydrox/Alum Hydrox 30 Ml Oral.Susp) 30 ml PO Q6H PRN PRN Reason: Heartburn/Nausea Albuterol Sulfate (Albuterol Sulfate 90 Mcg 8 Gm Inhaler) 2 puff INHALE RQ4H PRN PRN Reason: Shortness of Breath Albuterol/Ipratropium (Albuterol/Iprat 2.5/0.5mg 3 Ml Ampul.Neb) 3 ml INHALE RQ4H WHILE AWAKE PRN PRN Reason: shortness of breath Baclofen (Baclofen 10 Mg Tablet) 10 mg PO BID [facility] Last Admin: 03/27/24 09:13 Dose: 10 mg Clonidine HCl (Clonidine Hcl 0.1 Mg Tablet) 0.1 mg PO Q8H PRN; Protocol PRN Reason: anxiety Last Admin: 03/27/24 13:17 Dose: 0.1 mg Duloxetine HCl (Duloxetine Hcl 30 Mg Capsule.) 30 mg PO DAILY [facility] Last Admin: 03/27/24 09:13 Dose: 30 mg Hydroxyzine HCl (Hydroxyzine Hcl 50 Mg Tablet) 50 mg PO Q6H PRN PRN Reason: Anxiety Last Admin: 03/27/24 09:19 Dose: 50 mg Ibuprofen (Ibuprofen 600 Mg Tablet) 600 mg PO Q6H PRN PRN Reason: Pain, Mild (Pain Scale 1-3) Last Admin: 03/26/24 12:03 Dose: 600 mg Magnesium Hydroxide (Milk Of Magnesia 30 Ml Oral.Susp) 30 ml PO DAILY PRN PRN Reason: Constipation Mirtazapine (Mirtazapine 15 Mg Tablet) 45 mg PO BEDTIME [facility] Last Admin: 03/26/24 20:50 Dose: 45 mg Nicotine (Nicotine 21 Mg Patch.Td24) 21 mg TRANSDERMA DAILY PRN PRN Reason: smoking cessation Nicotine Polacrilex (Nicotine Polacrilex 2 Mg Gum) 4 mg BUCCAL Q2H PRN PRN Reason: Nicotine Cravings Non-Formulary Medication (Loxapine 50 Mg) 100 mg PO BEDTIME [facility] Last Admin: 03/26/24 20:50 Dose: 100 mg Patient Own Medication (Anoro Ellipta 62.5mcg/25mcg [Umiclidium And Vilanterol]) 1 each INHALE RDAILY [facility] Last Admin: 03/27/24 09:13 Dose: 1 each Omeprazole (Omeprazole 20 Mg Capsule.) 20 mg PO DAILY@0630 [facility] Last Admin: 03/27/24 09:13 Dose: 20 mg Oxcarbazepine (Oxcarbazepine 150 Mg Tablet) 150 mg PO BID [facility] Last Admin: 03/27/24 09:13 Dose: 150 mg Pramipexole Dihydrochloride (Pramipexole Di-Hcl 0.125 Mg Tablet) 0.125 mg PO BEDTIME [facility] Last Admin: 03/26/24 20:50 Dose: 0.125 mg Prednisone (Prednisone 20 Mg Tablet) 20 mg PO DAILY [facility] Stop: 03/27/24 23:00 Last Admin: 03/27/24 09:13 Dose: 20 mg Prednisone (Prednisone 10 Mg Tablet) 10 mg PO DAILY [facility] Stop: 03/29/24 23:00 Pregabalin (Pregabalin 75 Mg Capsule) 75 mg PO TID [facility] Last Admin: 03/27/24 09:13 Dose: 75 mg Trazodone HCl (Trazodone Hcl 50 Mg Tablet) 50 mg PO BEDTIME PRN PRN Reason: continued insomia Last Admin: 03/26/24 21:14 Dose: 50 mg Trazodone HCl (Trazodone Hcl 50 Mg Tablet) 150 mg PO BEDTIME [facility] Allergies Allergies Allergy/AdvReac Type Severity Reaction Status Date / Time oxycodone AdvReac Unknown GI upset Verified 03/16/24 10:24 Assessment & Plan Assessment & Plan (1) MDD (major depressive disorder): Qualifiers: Major depression recurrence: single episode Active/Remission status: currently active Major depression episode severity: moderate Qualified Code(s): F32.1 - Major depressive disorder, single episode, moderate Status: Acute Code(s): F32.9 - Major depressive disorder, single episode, unspecified (2) Cocaine use disorder: Status: Acute Code(s): F14.10 - Cocaine abuse, uncomplicated (3) CHF (congestive heart failure), NYHA class III: Status: Acute Code(s): I50.9 - Heart failure, unspecified (4) Lumbar arthropathy: Status: Acute Code(s): M47.816 - Spondylosis without myelopathy or radiculopathy, lumbar region (5) ANA (obstructive sleep apnea): Status: Acute Code(s): G47.33 - Obstructive sleep apnea (adult) (pediatric) (6) COPD with hypoxia: Status: Acute Code(s): J44.9 - Chronic obstructive pulmonary disease, unspecified Plan Patient is a 58-year-old male with history of depression, COPD, chronic respiratory failure with hypoxia (assessed for 2 L O2), history of DVT (no longer on anticoagulation), hyperlipidemia, ANA (hx of CPAP), long history of chronic, daily crack cocaine use, alcohol use disorder, remote opioid abuse who presents for ongoing depression and SI to overdose on fentanyl. Patient was psychiatrically hospitalized for January 17 -Mar 13 in the [place] area; he was discharged, homeless, feeling helpless with return of SI and within 2-3 days presented to the ED for SI. Patient initially medically admitted for acute on chronic respiratory failure with hypoxemia secondary to exacerbation of COPD and right sided pneumonia; he was treated with IV antibiotics and medically cleared on prednisone taper. Patient presents with depression and hopeless thoughts. He says suicidality is waning. He would like a substance abuse program to go to. Patient reports depression has been more prevalent since this past summer when he found his girlfriend and then a few months later was evicted from his housing. Denies AVH; denies any history of manic type episodes or behaviors. Formulation/clinical reasoning: Patient reports history of depression that he has treated with substance abuse. This past December 2023, time patient started using medications for depression. Patient remains embroiled in substance abuse which contributes to quick return of depression. Patients homelessness and significant medical comorbidities including ANA not on CPAP which also very likely contribute towards mood. Will continue medications from recent psychiatric hospitalization since patient said his mood was pretty good there: mirtazapine, Cymbalta, Trileptal. Pt was also on Loxapine, though no reported history of psychotic or manic symptoms Hospital course: 03/25 pt remains depressed; passive SI. He reports trouble sleeping and says is usually on trazodone 150mg qhs; agrees to 100mg tonight with prn's available. Discussed medication for cocaine cravings and pt reports he's been on baclofen before which has helped; wants to get back on now. Also discussed suboxone which he says has helped in past; agrees to hold off from starting this now. -also discussed dispo, trouble getting into program. Pt says he wished he stayed at last hospitalization in [place] since they were working on housing. he regrets leaving prematurely, saying he left to go use. 03/26 still depressed, struggling w/ hopelessness. No SI and hoping for help w aftercare. Pt has trouble sleeping and asks for increase in Trazodone to 150mg; Will restart Loxapine since pt remains depressed and this med seemed to help mood in past -pt ambivalent about starting suboxone but thinks it might help w/ cravings 03/27: continue current tx plan. +SI with plan to overdose d/t anxiety and depression. worried about placement. Plan: CV Q 15 minute checks START Loxapine 100mg daily Continue baclofen INcrease to trazodone 150mg; may increase Continue home medications Continue prednisone taper Continue mirtazapine 45 mg q.h.s. Continue Cymbalta 30 mg daily; will likely taper Continue Trileptal 150 mg b.i.d. Patient educated on: medication risk/benefits Reason for continued inpatient stay Substantial Risk for: harm to self and med/psych decompensation Time Spent With Patient Time: Total time managing care of this patient today _20___ minutes.
[2024-03-27] MEDS: Ibuprofen 600 MG TABLET PO (16:33)
[2024-03-27 20:00] VITALS: BP 111/51; PULSE 76; RESP 16; TEMP 36.3; O2SAT 93
[2024-03-27] MEDS: Mirtazapine 15 MG TABLET 45 MG PO (22:00)
[2024-03-27] MEDS: traZODone HCL 50 MG TABLET 150 MG PO (22:00)
[2024-03-27] MEDS: Pramipexole Di-HCL 0.125 MG TABLET PO (22:00)
[2024-03-27] MEDS: traZODone HCL 50 MG TABLET PO (22:00)
[2024-03-27] MEDS: LOXAPINE 50 MG 100 EACH PO (22:22)
[2024-03-28 08:00] VITALS: BP 128/62; PULSE 69; RESP 18; TEMP 37.3; O2SAT 88
--- NOTE | 2024-03-28 08:16 | HO.PSYCHPN ---
Subjective Subjective Date of Service: 03/28/24 Reason For Visit: Depression Subjective Notes: Conditional Voluntary Interim History: The nursing staff reported the patient had been compliant with treatment, he slept 7 hours and he have passive suicidal ideation he was seen in the common areas in the kitchen and he did not attend to groups. On interview, the patient reported that he is feeling okay, no new symptoms. Mental Status Exam Mental Status Exam Patient Appearance: Appropriate Patient Orientation: Person and Situation Level of Consciousness: Awake and Appropriate Patient Behavior: Guarded and Passive Mood Description: Withdrawn Affect Description: Constricted Patient Cognition Impaired: Yes Ability to Follow Directions: Fair Speech Pattern: Clear Hallucinations: None Delusions: Not Present Thought Process: Distracted and Slowed Thinking Thought Content: positive for [place] and positive for Circumstantial Judgement: Fair Diagnostics Vital Signs (24Hr): Vital Signs - 24 hr 03/27/24 09:09 03/27/24 13:16 03/27/24 13:17 Temperature 97.8 F Pulse Rate 68 82 Respiratory Rate 16 Blood Pressure 142/80 H 145/79 H 145/79 H Pulse Oximetry 68 L 96 Oxygen Delivery Method Room Air 03/27/24 20:00 Temperature 97.3 F Pulse Rate 76 Respiratory Rate 16 Blood Pressure 111/51 L Pulse Oximetry 93 Oxygen Delivery Method Room Air BMI result Body Mass Index 23.7 Medications Medications Current Medications Acetaminophen (Acetaminophen 325 Mg Tablet) 650 mg PO Q6H PRN PRN Reason: Headache/Pain Mild Scale (1-3) Last Admin: 03/25/24 10:11 Dose: 650 mg Al Hydroxide/Mg Hydroxide (Magnesium Hydrox/Alum Hydrox 30 Ml Oral.Susp) 30 ml PO Q6H PRN PRN Reason: Heartburn/Nausea Albuterol Sulfate (Albuterol Sulfate 90 Mcg 8 Gm Inhaler) 2 puff INHALE RQ4H PRN PRN Reason: Shortness of Breath Albuterol/Ipratropium (Albuterol/Iprat 2.5/0.5mg 3 Ml Ampul.Neb) 3 ml INHALE RQ4H WHILE AWAKE PRN PRN Reason: shortness of breath Baclofen (Baclofen 10 Mg Tablet) 10 mg PO BID [facility] Last Admin: 03/27/24 22:00 Dose: 10 mg Clonidine HCl (Clonidine Hcl 0.1 Mg Tablet) 0.1 mg PO Q8H PRN; Protocol PRN Reason: anxiety Last Admin: 03/27/24 13:17 Dose: 0.1 mg Duloxetine HCl (Duloxetine Hcl 30 Mg Capsule.) 30 mg PO DAILY [facility] Last Admin: 03/27/24 09:13 Dose: 30 mg Hydroxyzine HCl (Hydroxyzine Hcl 50 Mg Tablet) 50 mg PO Q6H PRN PRN Reason: Anxiety Last Admin: 03/27/24 16:34 Dose: 50 mg Ibuprofen (Ibuprofen 600 Mg Tablet) 600 mg PO Q6H PRN PRN Reason: Pain, Mild (Pain Scale 1-3) Last Admin: 03/27/24 16:33 Dose: 600 mg Magnesium Hydroxide (Milk Of Magnesia 30 Ml Oral.Susp) 30 ml PO DAILY PRN PRN Reason: Constipation Mirtazapine (Mirtazapine 15 Mg Tablet) 45 mg PO BEDTIME [facility] Last Admin: 03/27/24 22:00 Dose: 45 mg Nicotine (Nicotine 21 Mg Patch.Td24) 21 mg TRANSDERMA DAILY PRN PRN Reason: smoking cessation Nicotine Polacrilex (Nicotine Polacrilex 2 Mg Gum) 4 mg BUCCAL Q2H PRN PRN Reason: Nicotine Cravings Non-Formulary Medication (Loxapine 50 Mg) 100 mg PO BEDTIME [facility] Last Admin: 03/27/24 22:22 Dose: 100 mg Patient Own Medication (Anoro Ellipta 62.5mcg/25mcg [Umiclidium And Vilanterol]) 1 each INHALE RDAILY [facility] Last Admin: 03/27/24 09:13 Dose: 1 each Omeprazole (Omeprazole 20 Mg Capsule.) 20 mg PO DAILY@0630 [facility] Last Admin: 03/27/24 09:13 Dose: 20 mg Oxcarbazepine (Oxcarbazepine 150 Mg Tablet) 150 mg PO BID [facility] Last Admin: 03/27/24 22:00 Dose: 150 mg Pramipexole Dihydrochloride (Pramipexole Di-Hcl 0.125 Mg Tablet) 0.125 mg PO BEDTIME [facility] Last Admin: 03/27/24 22:00 Dose: 0.125 mg Prednisone (Prednisone 10 Mg Tablet) 10 mg PO DAILY [facility] Stop: 03/29/24 23:00 Pregabalin (Pregabalin 75 Mg Capsule) 75 mg PO TID [facility] Last Admin: 03/27/24 22:00 Dose: 75 mg Trazodone HCl (Trazodone Hcl 50 Mg Tablet) 50 mg PO BEDTIME PRN PRN Reason: continued insomia Last Admin: 03/27/24 22:00 Dose: 50 mg Trazodone HCl (Trazodone Hcl 50 Mg Tablet) 150 mg PO BEDTIME [facility] Last Admin: 03/27/24 22:00 Dose: 150 mg Allergies Allergies Allergy/AdvReac Type Severity Reaction Status Date / Time oxycodone AdvReac Unknown GI upset Verified 03/16/24 10:24 Assessment & Plan Assessment & Plan (1) MDD (major depressive disorder): Qualifiers: Major depression recurrence: single episode Active/Remission status: currently active Major depression episode severity: moderate Qualified Code(s): F32.1 - Major depressive disorder, single episode, moderate Status: Acute Code(s): F32.9 - Major depressive disorder, single episode, unspecified (2) Cocaine use disorder: Status: Acute Code(s): F14.10 - Cocaine abuse, uncomplicated (3) CHF (congestive heart failure), NYHA class III: Status: Acute Code(s): I50.9 - Heart failure, unspecified (4) Lumbar arthropathy: Status: Acute Code(s): M47.816 - Spondylosis without myelopathy or radiculopathy, lumbar region (5) ANA (obstructive sleep apnea): Status: Acute Code(s): G47.33 - Obstructive sleep apnea (adult) (pediatric) (6) COPD with hypoxia: Status: Acute Code(s): J44.9 - Chronic obstructive pulmonary disease, unspecified Plan Patient is a 58-year-old male with history of depression, COPD, chronic respiratory failure with hypoxia (assessed for 2 L O2), history of DVT (no longer on anticoagulation), hyperlipidemia, ANA (hx of CPAP), long history of chronic, daily crack cocaine use, alcohol use disorder, remote opioid abuse who presents for ongoing depression and SI to overdose on fentanyl. Patient was psychiatrically hospitalized for January 17 -Mar 13 in the [facility]; he was discharged, homeless, feeling helpless with return of SI and within 2-3 days presented to the ED for SI. Patient initially medically admitted for acute on chronic respiratory failure with hypoxemia secondary to exacerbation of COPD and right sided pneumonia; he was treated with IV antibiotics and medically cleared on prednisone taper. Patient presents with depression and hopeless thoughts. He says suicidality is waning. He would like a substance abuse program to go to. Patient reports depression has been more prevalent since this past summer when he found his girlfriend and then a few months later was evicted from his housing. Denies AVH; denies any history of manic type episodes or behaviors. Formulation/clinical reasoning: Patient reports history of depression that he has treated with substance abuse. This past December 2023, 1st time patient started using medications for depression. Patient remains embroiled in substance abuse which contributes to quick return of depression. Patients homelessness and significant medical comorbidities including ANA not on CPAP which also very likely contribute towards mood. Will continue medications from recent psychiatric hospitalization since patient said his mood was pretty good there: mirtazapine, Cymbalta, Trileptal. Pt was also on Loxapine, though no reported history of psychotic or manic symptoms Hospital course: 03/25 pt remains depressed; passive SI. He reports trouble sleeping and says is usually on trazodone 150mg qhs; agrees to 100mg tonight with prn's available. Discussed medication for cocaine cravings and pt reports he's been on baclofen before which has helped; wants to get back on now. Also discussed suboxone which he says has helped in past; agrees to hold off from starting this now. -also discussed dispo, trouble getting into program. Pt says he wished he stayed at last hospitalization in [place] since they were working on housing. he regrets leaving prematurely, saying he left to go use. 03/26 still depressed, struggling w/ hopelessness. No SI and hoping for help w aftercare. Pt has trouble sleeping and asks for increase in Trazodone to 150mg; Will restart Loxapine since pt remains depressed and this med seemed to help mood in past -pt ambivalent about starting suboxone but thinks it might help w/ cravings 03/27: continue current tx plan. +SI with plan to overdose d/t anxiety and depression. worried about placement. Plan: CV Q 15 minute checks START Loxapine 100mg daily Continue baclofen INcrease to trazodone 150mg; may increase Continue home medications Continue prednisone taper Continue mirtazapine 45 mg q.h.s. Continue Cymbalta 30 mg daily; will likely taper Continue Trileptal 150 mg b.i.d. Reason for continued inpatient stay Substantial Risk for: inability to function, rapid decompensation and med/psych decompensation Time Spent With Patient Time: Total time managing care of this patient today __20__ minutes.
[2024-03-28] MEDS: DULoxetine HCl 30 MG CAPSULE.DR PO (08:47)
[2024-03-28] MEDS: Baclofen 10 MG TABLET PO ×2 (08:47→21:58)
[2024-03-28] MEDS: Pregabalin 75 MG CAPSULE PO ×3 (08:47→21:58)
[2024-03-28] MEDS: Omeprazole 20 MG CAPSULE.DR PO (08:48)
[2024-03-28] MEDS: predniSONE 10 MG TABLET PO (08:48)
[2024-03-28] MEDS: OXcarbazepine 150 MG TABLET PO ×2 (08:48→21:58)
[2024-03-28] MEDS: hydrOXYzine HCL 50 MG TABLET PO ×2 (08:49→14:09)
[2024-03-28] MEDS: ANORO ELLIPTA 1 EACH INHALE (08:50)
[2024-03-28] MEDS: Ibuprofen 600 MG TABLET PO (08:55)
[2024-03-28] MEDS: Acetaminophen 325 MG TABLET 650 MG PO (14:09)
[2024-03-28 20:00] VITALS: BP 171/79; PULSE 79; RESP 18; TEMP 36.1; O2SAT 94
[2024-03-28] MEDS: LOXAPINE 50 MG 100 EACH PO (21:56)
[2024-03-28] MEDS: traZODone HCL 50 MG TABLET 150 MG PO (21:58)
[2024-03-28] MEDS: Mirtazapine 15 MG TABLET 45 MG PO (21:58)
[2024-03-28] MEDS: Pramipexole Di-HCL 0.125 MG TABLET PO (21:58)
[2024-03-29] MEDS: Omeprazole 20 MG CAPSULE.DR PO (07:04)
[2024-03-29 08:27] VITALS: BP 123/59; PULSE 75; TEMP 36.8; O2SAT 88
[2024-03-29] MEDS: OXcarbazepine 150 MG TABLET PO ×2 (08:37→20:26)
[2024-03-29] MEDS: predniSONE 10 MG TABLET PO (08:37)
[2024-03-29] MEDS: Pregabalin 75 MG CAPSULE PO ×3 (08:37→20:24)
[2024-03-29] MEDS: Baclofen 10 MG TABLET PO ×2 (08:37→20:26)
[2024-03-29] MEDS: hydrOXYzine HCL 50 MG TABLET PO ×2 (08:37→13:25)
[2024-03-29] MEDS: Ibuprofen 600 MG TABLET PO (08:37)
[2024-03-29] MEDS: DULoxetine HCl 30 MG CAPSULE.DR PO (08:37)
--- NOTE | 2024-03-29 10:50 | HO.PSYCHPN ---
Subjective Subjective Date of Service: 03/29/24 Reason For Visit: Depression Subjective Notes: Conditional Voluntary Interim History: The nursing staff reported the patient had been depressed and anxious, he admitted passive suicidal ideation. He had been worried about disposition On interview the patient denies new symptoms he states that he is depressed. Mental Status Exam Mental Status Exam Patient Appearance: Appropriate Patient Orientation: Person and Situation Level of Consciousness: Awake and Appropriate Patient Behavior: Guarded and Passive Mood Description: Withdrawn Affect Description: Constricted Patient Cognition Impaired: Yes Ability to Follow Directions: Good Speech Pattern: Clear Hallucinations: None Delusions: Not Present Thought Process: Distracted and Slowed Thinking Thought Content: positive for [place] and positive for Circumstantial Judgement: Fair Diagnostics Vital Signs (24Hr): Vital Signs - 24 hr 03/28/24 20:00 03/29/24 08:27 Temperature 97 F 98.3 F Pulse Rate 79 75 Respiratory Rate 18 Blood Pressure 171/79 H 123/59 L Pulse Oximetry 94 88 L Oxygen Delivery Method Room Air Room Air BMI result Body Mass Index 23.7 Medications Medications Current Medications Acetaminophen (Acetaminophen 325 Mg Tablet) 650 mg PO Q6H PRN PRN Reason: Headache/Pain Mild Scale (1-3) Last Admin: 03/28/24 14:09 Dose: 650 mg Al Hydroxide/Mg Hydroxide (Magnesium Hydrox/Alum Hydrox 30 Ml Oral.Susp) 30 ml PO Q6H PRN PRN Reason: Heartburn/Nausea Albuterol Sulfate (Albuterol Sulfate 90 Mcg 8 Gm Inhaler) 2 puff INHALE RQ4H PRN PRN Reason: Shortness of Breath Albuterol/Ipratropium (Albuterol/Iprat 2.5/0.5mg 3 Ml Ampul.Neb) 3 ml INHALE RQ4H WHILE AWAKE PRN PRN Reason: shortness of breath Baclofen (Baclofen 10 Mg Tablet) 10 mg PO BID [facility] Last Admin: 03/29/24 08:37 Dose: 10 mg Clonidine HCl (Clonidine Hcl 0.1 Mg Tablet) 0.1 mg PO Q8H PRN; Protocol PRN Reason: anxiety Last Admin: 03/27/24 13:17 Dose: 0.1 mg Duloxetine HCl (Duloxetine Hcl 30 Mg Capsule.Dr) 30 mg PO DAILY [facility] Last Admin: 03/29/24 08:37 Dose: 30 mg Hydroxyzine HCl (Hydroxyzine Hcl 50 Mg Tablet) 50 mg PO Q6H PRN PRN Reason: Anxiety Last Admin: 03/29/24 08:37 Dose: 50 mg Ibuprofen (Ibuprofen 600 Mg Tablet) 600 mg PO Q6H PRN PRN Reason: Pain, Mild (Pain Scale 1-3) Last Admin: 03/29/24 08:37 Dose: 600 mg Magnesium Hydroxide (Milk Of Magnesia 30 Ml Oral.Susp) 30 ml PO DAILY PRN PRN Reason: Constipation Mirtazapine (Mirtazapine 15 Mg Tablet) 45 mg PO BEDTIME [facility] Last Admin: 03/28/24 21:58 Dose: 45 mg Nicotine (Nicotine 21 Mg Patch.Td24) 21 mg TRANSDERMA DAILY PRN PRN Reason: smoking cessation Nicotine Polacrilex (Nicotine Polacrilex 2 Mg Gum) 4 mg BUCCAL Q2H PRN PRN Reason: Nicotine Cravings Non-Formulary Medication (Loxapine 50 Mg) 100 mg PO BEDTIME [facility] Last Admin: 03/28/24 21:56 Dose: 100 mg Patient Own Medication (Anoro Ellipta 62.5mcg/25mcg [Umiclidium And Vilanterol]) 1 each INHALE RDAILY [facility] Last Admin: 03/28/24 08:50 Dose: 1 each Omeprazole (Omeprazole 20 Mg Capsule.Dr) 20 mg PO DAILY@0630 [facility] Last Admin: 03/29/24 07:04 Dose: 20 mg Oxcarbazepine (Oxcarbazepine 150 Mg Tablet) 150 mg PO BID [facility] Last Admin: 03/29/24 08:37 Dose: 150 mg Pramipexole Dihydrochloride (Pramipexole Di-Hcl 0.125 Mg Tablet) 0.125 mg PO BEDTIME [facility] Last Admin: 03/28/24 21:58 Dose: 0.125 mg Prednisone (Prednisone 10 Mg Tablet) 10 mg PO DAILY [facility] Stop: 03/29/24 23:00 Last Admin: 03/29/24 08:37 Dose: 10 mg Pregabalin (Pregabalin 75 Mg Capsule) 75 mg PO TID [facility] Last Admin: 03/29/24 08:37 Dose: 75 mg Trazodone HCl (Trazodone Hcl 50 Mg Tablet) 50 mg PO BEDTIME PRN PRN Reason: continued insomia Last Admin: 03/27/24 22:00 Dose: 50 mg Trazodone HCl (Trazodone Hcl 50 Mg Tablet) 150 mg PO BEDTIME [facility] Last Admin: 03/28/24 21:58 Dose: 150 mg Allergies Allergies Allergy/AdvReac Type Severity Reaction Status Date / Time oxycodone AdvReac Unknown GI upset Verified 03/16/24 10:24 Assessment & Plan Assessment & Plan (1) MDD (major depressive disorder): Qualifiers: Major depression recurrence: single episode Active/Remission status: currently active Major depression episode severity: moderate Qualified Code(s): F32.1 - Major depressive disorder, single episode, moderate Status: Acute Code(s): F32.9 - Major depressive disorder, single episode, unspecified (2) Cocaine use disorder: Status: Acute Code(s): F14.10 - Cocaine abuse, uncomplicated (3) CHF (congestive heart failure), NYHA class III: Status: Acute Code(s): I50.9 - Heart failure, unspecified (4) Lumbar arthropathy: Status: Acute Code(s): M47.816 - Spondylosis without myelopathy or radiculopathy, lumbar region (5) ANA (obstructive sleep apnea): Status: Acute Code(s): G47.33 - Obstructive sleep apnea (adult) (pediatric) (6) COPD with hypoxia: Status: Acute Code(s): J44.9 - Chronic obstructive pulmonary disease, unspecified Plan Patient is a 58-year-old male with history of depression, COPD, chronic respiratory failure with hypoxia (assessed for 2 L O2), history of DVT (no longer on anticoagulation), hyperlipidemia, ANA (hx of CPAP), long history of chronic, daily crack cocaine use, alcohol use disorder, remote opioid abuse who presents for ongoing depression and SI to overdose on fentanyl. Patient was psychiatrically hospitalized for January 17 -Mar 13 in the [facility]; he was discharged, homeless, feeling helpless with return of SI and within 2-3 days presented to the ED for SI. Patient initially medically admitted for acute on chronic respiratory failure with hypoxemia secondary to exacerbation of COPD and right sided pneumonia; he was treated with IV antibiotics and medically cleared on prednisone taper. Patient presents with depression and hopeless thoughts. He says suicidality is waning. He would like a substance abuse program to go to. Patient reports depression has been more prevalent since this past summer when he found his girlfriend and then a few months later was evicted from his housing. Denies AVH; denies any history of manic type episodes or behaviors. Formulation/clinical reasoning: Patient reports history of depression that he has treated with substance abuse. This past December 2023, 1st time patient started using medications for depression. Patient remains embroiled in substance abuse which contributes to quick return of depression. Patients homelessness and significant medical comorbidities including ANA not on CPAP which also very likely contribute towards mood. Will continue medications from recent psychiatric hospitalization since patient said his mood was pretty good there: mirtazapine, Cymbalta, Trileptal. Pt was also on Loxapine, though no reported history of psychotic or manic symptoms Hospital course: 03/25 pt remains depressed; passive SI. He reports trouble sleeping and says is usually on trazodone 150mg qhs; agrees to 100mg tonight with prn's available. Discussed medication for cocaine cravings and pt reports he's been on baclofen before which has helped; wants to get back on now. Also discussed suboxone which he says has helped in past; agrees to hold off from starting this now. -also discussed dispo, trouble getting into program. Pt says he wished he stayed at last hospitalization in [place] since they were working on housing. he regrets leaving prematurely, saying he left to go use. 03/26 still depressed, struggling w/ hopelessness. No SI and hoping for help w aftercare. Pt has trouble sleeping and asks for increase in Trazodone to 150mg; Will restart Loxapine since pt remains depressed and this med seemed to help mood in past -pt ambivalent about starting suboxone but thinks it might help w/ cravings 03/27: continue current tx plan. +SI with plan to overdose d/t anxiety and depression. worried about placement. Plan: CV Q 15 minute checks START Loxapine 100mg daily Continue baclofen INcrease to trazodone 150mg; may increase Continue home medications Continue prednisone taper Continue mirtazapine 45 mg q.h.s. Continue Cymbalta 30 mg daily; will likely taper Continue Trileptal 150 mg b.i.d. Reason for continued inpatient stay Substantial Risk for: inability to function, rapid decompensation and med/psych decompensation Time Spent With Patient Time: Total time managing care of this patient today __20__ minutes.
[2024-03-29 13:25] VITALS: BP 164/84
[2024-03-29] MEDS: cloNIDine HCL 0.1 MG TABLET PO (13:25)
[2024-03-29] MEDS: ANORO ELLIPTA 1 EACH INHALE (13:26)
[2024-03-29] MEDS: Albuterol Sulfate 90 MCG 8 GM INHALER 2 PUFF INHALE (17:14)
[2024-03-29 20:00] VITALS: BP 146/68; PULSE 78; RESP 16; TEMP 36.4; O2SAT 93
[2024-03-29] MEDS: LOXAPINE 50 MG 100 EACH PO (20:24)
[2024-03-29] MEDS: Pramipexole Di-HCL 0.125 MG TABLET PO (20:25)
[2024-03-29] MEDS: Mirtazapine 15 MG TABLET 45 MG PO (20:25)
[2024-03-29] MEDS: traZODone HCL 50 MG TABLET 150 MG PO (20:27)
[2024-03-29] MEDS: Albuterol/Iprat 2.5/0.5MG 3 ML AMPUL.NEB INHALE (21:03)
[2024-03-29 21:04] VITALS: PULSE 64; RESP 18; O2SAT 93
[2024-03-30 08:00] VITALS: BP 124/58; PULSE 73; RESP 18; TEMP 36.6; O2SAT 89
[2024-03-30] MEDS: DULoxetine HCl 30 MG CAPSULE.DR PO (08:22)
[2024-03-30] MEDS: Pregabalin 75 MG CAPSULE PO ×3 (08:22→20:26)
[2024-03-30] MEDS: Baclofen 10 MG TABLET PO ×2 (08:22→20:26)
[2024-03-30] MEDS: ANORO ELLIPTA 1 EACH INHALE (08:22)
[2024-03-30] MEDS: OXcarbazepine 150 MG TABLET PO ×2 (08:23→20:27)
[2024-03-30] MEDS: Omeprazole 20 MG CAPSULE.DR PO (08:23)
--- NOTE | 2024-03-30 09:43 | HO.PSYCHPN ---
Subjective Subjective Date of Service: 03/30/24 Reason For Visit: Depression Interim History: met with pt; discussed with team; reviewed chart mood is a little bit better. He says medications are good but agrees to increase Cymbalta. He denies SI. Pt clarifies about previous SI statements; he reiterates saying he has no SI at all but sometimes, when he thinks about being back on the streets SI comes to his mind. Pt says he fees safe and stable to discharge. Pt also clarified, saying he has no AVH at all; he's not sure why it was recorded otherwise, but denies any current AVH or any hx of it; rather he says it's just thoughts... discussed dispo and pt agrees to try and go to the [facility]...which may have room next week Mental Status Exam Mental Status Exam Narrative: Pt is alert and oriented; behavior is cooperative, friendly and calm; patient is not in distress; dressed in casual attire, well groomed and with adequate hygiene; mood is described as little better and affect congruent; eye contact appropriate; Speech is normal rate, volume and prosody and not pressured; no psychomotor agitation/retardation present; thought process is organized and goal directed; Thought content is on tx; otherwise pertinent to relevant topics and without any delusional content, paranoid ideations or grandiosity; denies any SI/HI. Denies AVH; There is no evidence of perceptual disturbance. Patients insight and judgment appear intact. Diagnostics Vital Signs (24Hr): Vital Signs - 24 hr 03/29/24 13:25 03/29/24 20:00 03/29/24 21:04 Temperature 97.5 F Pulse Rate 78 64 Respiratory Rate 16 18 Blood Pressure 164/84 H 146/68 H Pulse Oximetry 93 Oxygen Delivery Method Room Air 03/30/24 08:00 Temperature 98 F Pulse Rate 73 Respiratory Rate 18 Blood Pressure 124/58 L Pulse Oximetry 89 L Oxygen Delivery Method Room Air BMI result Body Mass Index 23.7 Medications Medications Current Medications Acetaminophen (Acetaminophen 325 Mg Tablet) 650 mg PO Q6H PRN PRN Reason: Headache/Pain Mild Scale (1-3) Last Admin: 03/28/24 14:09 Dose: 650 mg Al Hydroxide/Mg Hydroxide (Magnesium Hydrox/Alum Hydrox 30 Ml Oral.Susp) 30 ml PO Q6H PRN PRN Reason: Heartburn/Nausea Albuterol Sulfate (Albuterol Sulfate 90 Mcg 8 Gm Inhaler) 2 puff INHALE RQ4H PRN PRN Reason: Shortness of Breath Last Admin: 03/29/24 17:14 Dose: 2 puff Albuterol/Ipratropium (Albuterol/Iprat 2.5/0.5mg 3 Ml Ampul.Neb) 3 ml INHALE RQ4H WHILE AWAKE PRN PRN Reason: shortness of breath Last Admin: 03/29/24 21:03 Dose: 3 ml Baclofen (Baclofen 10 Mg Tablet) 10 mg PO BID [facility] Last Admin: 03/30/24 08:22 Dose: 10 mg Clonidine HCl (Clonidine Hcl 0.1 Mg Tablet) 0.1 mg PO Q8H PRN; Protocol PRN Reason: anxiety Last Admin: 03/29/24 13:25 Dose: 0.1 mg Duloxetine HCl (Duloxetine Hcl 30 Mg Capsule.Dr) 30 mg PO DAILY [facility] Last Admin: 03/30/24 08:22 Dose: 30 mg Hydroxyzine HCl (Hydroxyzine Hcl 50 Mg Tablet) 50 mg PO Q6H PRN PRN Reason: Anxiety Last Admin: 03/29/24 13:25 Dose: 50 mg Ibuprofen (Ibuprofen 600 Mg Tablet) 600 mg PO Q6H PRN PRN Reason: Pain, Mild (Pain Scale 1-3) Last Admin: 03/29/24 08:37 Dose: 600 mg Magnesium Hydroxide (Milk Of Magnesia 30 Ml Oral.Susp) 30 ml PO DAILY PRN PRN Reason: Constipation Mirtazapine (Mirtazapine 15 Mg Tablet) 45 mg PO BEDTIME [facility] Last Admin: 03/29/24 20:25 Dose: 45 mg Nicotine (Nicotine 21 Mg Patch.Td24) 21 mg TRANSDERMA DAILY PRN PRN Reason: smoking cessation Nicotine Polacrilex (Nicotine Polacrilex 2 Mg Gum) 4 mg BUCCAL Q2H PRN PRN Reason: Nicotine Cravings Non-Formulary Medication (Loxapine 50 Mg) 100 mg PO BEDTIME [facility] Last Admin: 03/29/24 20:24 Dose: 100 mg Patient Own Medication (Anoro Ellipta 62.5mcg/25mcg [Umiclidium And Vilanterol]) 1 each INHALE RDAILY [facility] Last Admin: 03/30/24 08:22 Dose: 1 each Omeprazole (Omeprazole 20 Mg Capsule.Dr) 20 mg PO DAILY@0630 [facility] Last Admin: 03/30/24 08:23 Dose: 20 mg Oxcarbazepine (Oxcarbazepine 150 Mg Tablet) 150 mg PO BID [facility] Last Admin: 03/30/24 08:23 Dose: 150 mg Pramipexole Dihydrochloride (Pramipexole Di-Hcl 0.125 Mg Tablet) 0.125 mg PO BEDTIME [facility] Last Admin: 03/29/24 20:25 Dose: 0.125 mg Pregabalin (Pregabalin 75 Mg Capsule) 75 mg PO TID [facility] Last Admin: 03/30/24 08:22 Dose: 75 mg Trazodone HCl (Trazodone Hcl 50 Mg Tablet) 50 mg PO BEDTIME PRN PRN Reason: continued insomia Last Admin: 03/27/24 22:00 Dose: 50 mg Trazodone HCl (Trazodone Hcl 50 Mg Tablet) 150 mg PO BEDTIME [facility] Last Admin: 03/29/24 20:27 Dose: 150 mg Allergies Allergies Allergy/AdvReac Type Severity Reaction Status Date / Time oxycodone AdvReac Unknown GI upset Verified 03/16/24 10:24 Assessment & Plan Assessment & Plan (1) MDD (major depressive disorder): Qualifiers: Active/Remission status: currently active Major depression episode severity: moderate Major depression recurrence: single episode Qualified Code(s): F32.1 - Major depressive disorder, single episode, moderate Status: Acute Code(s): F32.9 - Major depressive disorder, single episode, unspecified (2) Cocaine use disorder: Status: Acute Code(s): F14.10 - Cocaine abuse, uncomplicated (3) CHF (congestive heart failure), NYHA class III: Status: Acute Code(s): I50.9 - Heart failure, unspecified (4) Lumbar arthropathy: Status: Acute Code(s): M47.816 - Spondylosis without myelopathy or radiculopathy, lumbar region (5) ANA (obstructive sleep apnea): Status: Acute Code(s): G47.33 - Obstructive sleep apnea (adult) (pediatric) (6) COPD with hypoxia: Status: Acute Code(s): J44.9 - Chronic obstructive pulmonary disease, unspecified Plan Patient is a 58-year-old male with history of depression, COPD, chronic respiratory failure with hypoxia (assessed for 2 L O2), history of DVT (no longer on anticoagulation), hyperlipidemia, ANA (hx of CPAP), long history of chronic, daily crack cocaine use, alcohol use disorder, remote opioid abuse who presents for ongoing depression and SI to overdose on fentanyl. Patient was psychiatrically hospitalized for January 17 -Mar 13 in the [place] area; he was discharged, homeless, feeling helpless with return of SI and within 2-3 days presented to the ED for SI. Patient initially medically admitted for acute on chronic respiratory failure with hypoxemia secondary to exacerbation of COPD and right sided pneumonia; he was treated with IV antibiotics and medically cleared on prednisone taper. Patient presents with depression and hopeless thoughts. He says suicidality is waning. He would like a substance abuse program to go to. Patient reports depression has been more prevalent since this past summer when he found his girlfriend and then a few months later was evicted from his housing. Denies AVH; denies any history of manic type episodes or behaviors. Formulation/clinical reasoning: Patient reports history of depression that he has treated with substance abuse. This past December 2023, 1st time patient started using medications for depression. Patient remains embroiled in substance abuse which contributes to quick return of depression. Patients homelessness and significant medical comorbidities including ANA not on CPAP which also very likely contribute towards mood. Will continue medications from recent psychiatric hospitalization since patient said his mood was pretty good there: mirtazapine, Cymbalta, Trileptal. Pt was also on Loxapine, though no reported history of psychotic or manic symptoms Hospital course: 03/25 pt remains depressed; passive SI. He reports trouble sleeping and says is usually on trazodone 150mg qhs; agrees to 100mg tonight with prn's available. Discussed medication for cocaine cravings and pt reports he's been on baclofen before which has helped; wants to get back on now. Also discussed suboxone which he says has helped in past; agrees to hold off from starting this now. -also discussed dispo, trouble getting into program. Pt says he wished he stayed at last hospitalization in [place] since they were working on housing. he regrets leaving prematurely, saying he left to go use. 03/26 still depressed, struggling w/ hopelessness. No SI and hoping for help w aftercare. Pt has trouble sleeping and asks for increase in Trazodone to 150mg; Will restart Loxapine since pt remains depressed and this med seemed to help mood in past -pt ambivalent about starting suboxone but thinks it might help w/ cravings 03/27: continue current tx plan. +SI with plan to overdose d/t anxiety and depression. worried about placement. 03/30 mood is a little bit better. He says medications are good but agrees to increase Cymbalta. He denies SI. Pt clarifies about previous SI statements; he reiterates saying he has no SI at all but sometimes, when he thinks about being back on the streets SI comes to his mind. Pt says he fees safe and stable to discharge. Discussed dispo and pt agrees to try and go to the [facility]...which may have room next week -Pt also clarified, saying he has no AVH at all; he's not sure why it was recorded otherwise, but denies any current AVH or any hx of it; rather he says it's just thoughts... Pt is stable on current medication regimen Plan: CV Q 15 minute checks continue Loxapine 100mg daily Continue baclofen continue trazodone 150mg; may increase Continue home medications Continue prednisone taper Continue mirtazapine 45 mg q.h.s. Increase to Cymbalta 60 mg daily; will likely taper Continue Trileptal 150 mg b.i.d. Patient educated on: diagnosis, medication risk/benefits, substance abuse and therapeutic strategies Informed Consent: understands Reason for continued inpatient stay Substantial Risk for: stable for discharge Time Spent With Patient Time: Total time managing care of this patient today ____ minutes.
[2024-03-30 10:09] VITALS: BP 130/62
[2024-03-30] MEDS: cloNIDine HCL 0.1 MG TABLET PO (10:09)
[2024-03-30] MEDS: hydrOXYzine HCL 50 MG TABLET PO (10:09)
[2024-03-30] MEDS: DULoxetine HCl 20 MG CAPSULE.DR PO (13:03)
[2024-03-30 20:00] VITALS: BP 137/65; PULSE 70; TEMP 36.3; O2SAT 93
[2024-03-30] MEDS: LOXAPINE 50 MG 100 EACH PO (20:26)
[2024-03-30] MEDS: Mirtazapine 15 MG TABLET 45 MG PO (20:26)
[2024-03-30] MEDS: traZODone HCL 50 MG TABLET 150 MG PO (20:27)
[2024-03-30] MEDS: Pramipexole Di-HCL 0.125 MG TABLET PO (20:27)
[2024-03-31] MEDS: Pregabalin 75 MG CAPSULE PO ×3 (08:23→20:37)
[2024-03-31] MEDS: ANORO ELLIPTA 1 EACH INHALE (08:23)
[2024-03-31] MEDS: Omeprazole 20 MG CAPSULE.DR PO (08:23)
[2024-03-31] MEDS: DULoxetine HCl 60 MG CAPSULE.DR PO (08:23)
[2024-03-31] MEDS: OXcarbazepine 150 MG TABLET PO ×2 (08:23→20:37)
[2024-03-31] MEDS: Baclofen 10 MG TABLET PO ×2 (08:23→20:37)
[2024-03-31 08:30] VITALS: BP 118/59; PULSE 72; RESP 16; TEMP 37; O2SAT 96
--- NOTE | 2024-03-31 08:41 | P.PNPSI_ITS ---
Subjective Subjective Date of Service: 03/31/24 Reason For Visit: Depression Interim History: Met with patient; discussed with team pt reports he remains overall better; though still w/ some depression and anxiety, mood is better. He feels ready enough to discharge. No SI. chemical worker Sorin from [facility] and in house SW discussed with pt dispo plan and he agrees with plan to go to [facility] as a stepping stone to either a program or a TSS. Feels medications are working well; sleeping and eating well. Mental Status Exam Mental Status Exam Narrative: Pt is alert and oriented; behavior is cooperative, friendly and calm; patient is not in distress; dressed in casual attire, well groomed and with adequate hygiene; mood is described as good enough and affect congruent; eye contact appropriate; Speech is normal rate, volume and prosody and not pressured; no psychomotor agitation/retardation present; thought process is organized and goal directed; Thought content is on tx; otherwise pertinent to relevant topics and without any delusional content, paranoid ideations or grandiosity; denies any SI/HI. Denies AVH; There is no evidence of perceptual disturbance. Patients insight and judgment are fair. Diagnostics Vital Signs (24Hr): Vital Signs - 24 hr 03/30/24 10:09 03/30/24 20:00 03/31/24 08:30 Temperature 97.3 F 98.6 F Pulse Rate 70 72 Respiratory Rate 16 Blood Pressure 130/62 137/65 118/59 L Pulse Oximetry 93 96 Oxygen Delivery Method Room Air Room Air BMI result Body Mass Index 23.7 Medications Medications Current Medications Acetaminophen (Acetaminophen 325 Mg Tablet) 650 mg PO Q6H PRN PRN Reason: Headache/Pain Mild Scale (1-3) Last Admin: 03/28/24 14:09 Dose: 650 mg Al Hydroxide/Mg Hydroxide (Magnesium Hydrox/Alum Hydrox 30 Ml Oral.Susp) 30 ml PO Q6H PRN PRN Reason: Heartburn/Nausea Albuterol Sulfate (Albuterol Sulfate 90 Mcg 8 Gm Inhaler) 2 puff INHALE RQ4H PRN PRN Reason: Shortness of Breath Last Admin: 03/29/24 17:14 Dose: 2 puff Albuterol/Ipratropium (Albuterol/Iprat 2.5/0.5mg 3 Ml Ampul.Neb) 3 ml INHALE RQ4H WHILE AWAKE PRN PRN Reason: shortness of breath Last Admin: 03/29/24 21:03 Dose: 3 ml Baclofen (Baclofen 10 Mg Tablet) 10 mg PO BID [facility] Last Admin: 03/31/24 08:23 Dose: 10 mg Clonidine HCl (Clonidine Hcl 0.1 Mg Tablet) 0.1 mg PO Q8H PRN; Protocol PRN Reason: anxiety Last Admin: 03/30/24 10:09 Dose: 0.1 mg Duloxetine HCl (Duloxetine Hcl 60 Mg Capsule.) 60 mg PO DAILY [facility] Last Admin: 03/31/24 08:23 Dose: 60 mg Hydroxyzine HCl (Hydroxyzine Hcl 50 Mg Tablet) 50 mg PO Q6H PRN PRN Reason: Anxiety Last Admin: 03/30/24 10:09 Dose: 50 mg Ibuprofen (Ibuprofen 600 Mg Tablet) 600 mg PO Q6H PRN PRN Reason: Pain, Mild (Pain Scale 1-3) Last Admin: 03/29/24 08:37 Dose: 600 mg Magnesium Hydroxide (Milk Of Magnesia 30 Ml Oral.Susp) 30 ml PO DAILY PRN PRN Reason: Constipation Mirtazapine (Mirtazapine 15 Mg Tablet) 45 mg PO BEDTIME [facility] Last Admin: 03/30/24 20:26 Dose: 45 mg Nicotine (Nicotine 21 Mg Patch.Td24) 21 mg TRANSDERMA DAILY PRN PRN Reason: smoking cessation Nicotine Polacrilex (Nicotine Polacrilex 2 Mg Gum) 4 mg BUCCAL Q2H PRN PRN Reason: Nicotine Cravings Non-Formulary Medication (Loxapine 50 Mg) 100 mg PO BEDTIME [facility] Last Admin: 03/30/24 20:26 Dose: 100 mg Patient Own Medication (Anoro Ellipta 62.5mcg/25mcg [Umiclidium And Vilanterol]) 1 each INHALE RDAILY [facility] Last Admin: 03/31/24 08:23 Dose: 1 each Omeprazole (Omeprazole 20 Mg Capsule.) 20 mg PO DAILY@0630 [facility] Last Admin: 03/31/24 08:23 Dose: 20 mg Oxcarbazepine (Oxcarbazepine 150 Mg Tablet) 150 mg PO BID [facility] Last Admin: 03/31/24 08:23 Dose: 150 mg Pramipexole Dihydrochloride (Pramipexole Di-Hcl 0.125 Mg Tablet) 0.125 mg PO BEDTIME [facility] Last Admin: 03/30/24 20:27 Dose: 0.125 mg Pregabalin (Pregabalin 75 Mg Capsule) 75 mg PO TID [facility] Last Admin: 03/31/24 08:23 Dose: 75 mg Trazodone HCl (Trazodone Hcl 50 Mg Tablet) 50 mg PO BEDTIME PRN PRN Reason: continued insomia Last Admin: 03/27/24 22:00 Dose: 50 mg Trazodone HCl (Trazodone Hcl 50 Mg Tablet) 150 mg PO BEDTIME [facility] Last Admin: 03/30/24 20:27 Dose: 150 mg Allergies Allergies Allergy/AdvReac Type Severity Reaction Status Date / Time oxycodone AdvReac Unknown GI upset Verified 03/16/24 10:24 Assessment & Plan Assessment & Plan (1) MDD (major depressive disorder): Qualifiers: Active/Remission status: currently active Major depression episode severity: severe Major depression recurrence: recurrent Psychotic features: without psychotic features Qualified Code(s): F33.2 - Major depressive disorder, recurrent severe without psychotic features Status: Acute Code(s): F32.9 - Major depressive disorder, single episode, unspecified Assessment and Plan: recurrent (2) Cocaine use disorder: Status: Acute Code(s): F14.10 - Cocaine abuse, uncomplicated (3) CHF (congestive heart failure), NYHA class III: Status: Acute Code(s): I50.9 - Heart failure, unspecified (4) Lumbar arthropathy: Status: Acute Code(s): M47.816 - Spondylosis without myelopathy or radiculopathy, lumbar region (5) ANA (obstructive sleep apnea): Status: Acute Code(s): G47.33 - Obstructive sleep apnea (adult) (pediatric) (6) COPD with hypoxia: Status: Chronic Code(s): J44.9 - Chronic obstructive pulmonary disease, unspecified (7) Homeless: Status: Acute Code(s): Z59.00 - Homelessness unspecified Plan Patient is a 58-year-old male with history of depression, COPD, chronic respiratory failure with hypoxia (assessed for 2 L O2), history of DVT (no longer on anticoagulation), hyperlipidemia, ANA (hx of CPAP), long history of chronic, daily crack cocaine use, alcohol use disorder, remote opioid abuse who presents for ongoing depression and SI to overdose on fentanyl. Patient was psychiatrically hospitalized for January 17 -Mar 13 in the [place] area; he was discharged, homeless, feeling helpless with return of SI and within 2-3 days presented to the ED for SI. Patient initially medically admitted for acute on chronic respiratory failure with hypoxemia secondary to exacerbation of COPD and right sided pneumonia; he was treated with IV antibiotics and medically cleared on prednisone taper. Patient presents with depression and hopeless thoughts. He says suicidality is waning. He would like a substance abuse program to go to. Patient reports depression has been more prevalent since this past summer when he found his girlfriend and then a few months later was evicted from his housing. Denies AVH; denies any history of manic type episodes or behaviors. Formulation/clinical reasoning: Patient reports history of depression that he has treated with substance abuse. This past December 2023, 1st time patient started using medications for depression. Patient remains embroiled in substance abuse which contributes to quick return of depression. Patients homelessness and significant medical comorbidities including ANA not on CPAP which also very likely contribute towards mood. Will continue medications from recent psychiatric hospitalization since patient said his mood was pretty good there: mirtazapine, Cymbalta, Trileptal. Pt was also on Loxapine, though no reported history of psychotic or manic symptoms Hospital course: 03/25 pt remains depressed; passive SI. He reports trouble sleeping and says is usually on trazodone 150mg qhs; agrees to 100mg tonight with prn's available. Discussed medication for cocaine cravings and pt reports he's been on baclofen before which has helped; wants to get back on now. Also discussed suboxone which he says has helped in past; agrees to hold off from starting this now. -also discussed dispo, trouble getting into program. Pt says he wished he stayed at last hospitalization in [place] since they were working on housing. he regrets leaving prematurely, saying he left to go use. 03/26 still depressed, struggling w/ hopelessness. No SI and hoping for help w aftercare. Pt has trouble sleeping and asks for increase in Trazodone to 150mg; Will restart Loxapine since pt remains depressed and this med seemed to help mood in past -pt ambivalent about starting suboxone but thinks it might help w/ cravings 03/27: continue current tx plan. +SI with plan to overdose d/t anxiety and depression. worried about placement. 03/30 mood is a little bit better. He says medications are good but agrees to increase Cymbalta. He denies SI. Pt clarifies about previous SI statements; he reiterates saying he has no SI at all but sometimes, when he thinks about being back on the streets SI comes to his mind. Pt says he fees safe and stable to discharge. Discussed dispo and pt agrees to try and go to the [facility]...which may have room next week -Pt also clarified, saying he has no AVH at all; he's not sure why it was recorded otherwise, but denies any current AVH or any hx of it; rather he says it's just thoughts... Pt is stable on current medication regimen 03/31 pt reports he remains overall better; though still w/ some depression and anxiety, mood is better. He feels ready enough to discharge. No SI. chemical worker Sorin from [facility] and in house SW discussed with pt dispo plan and he agrees with plan to go to [facility] as a stepping stone to either a program or a TSS. Feels medications are working well; sleeping and eating well. Pt remains with numerous medical comorbidities and currently is unable to have home 02 as he is homeless. Patient however has functioned this way in the community for years and has remained stable on the unit w/out supplemental 02. Impression: pt improved, mood better and anxiety down; denies SI. Pt is aware of risk of relapse but is optimistic that he'll remain sober and hopeful that he'll be able to get into a program from [facility] (which is now a sober [place] [facility]). Given the severity of his struggles with substance abuse, he remains vulnerable to both relapse and decompensation and at some point, may again become unsafe. However, this is a chronic issue that spans decades and one that will not resolve with longer stay on an inpt unit or with additional medication management. Rather it requires consistent commitment to sobriety and treatment with which pt is currently willing to pursue. Pt is not in imminent risk for harm to self or others and appropriate to return to the community for treatment. Plan: CV Q 15 minute checks continue Loxapine 100mg daily Continue baclofen continue trazodone 150mg; may increase Continue home medications Continue prednisone taper Continue mirtazapine 45 mg q.h.s. Increase to Cymbalta 60 mg daily; will likely taper Continue Trileptal 150 mg b.i.d. Patient educated on: diagnosis, medication risk/benefits, substance abuse and therapeutic strategies Informed Consent: understands Reason for continued inpatient stay Substantial Risk for: stable for discharge Time Spent With Patient Time: Total time managing care of this patient today ____ minutes.
[2024-03-31 11:43] VITALS: BP 137/72
[2024-03-31] MEDS: cloNIDine HCL 0.1 MG TABLET PO (11:43)
[2024-03-31] MEDS: hydrOXYzine HCL 50 MG TABLET PO (11:43)
--- NOTE | 2024-03-31 18:49 | PM.PSYDC ---
DS: Providers Provider Date of Service: 04/01/24 Date of admission: 03/23/24 15:21 Date of discharge: 04/01/24 Primary care physician: Unknown Physician Attending physician on admission: Sorin Cisneros Attending physician on discharge: Sorin Cisneros DS: Diagnosis Discharge Diagnosis (1) MDD (major depressive disorder): Status: Acute (2) Cocaine use disorder: Status: Acute (3) CHF (congestive heart failure), NYHA class III: Status: Acute (4) Lumbar arthropathy: Status: Acute (5) ANA (obstructive sleep apnea): Status: Acute (6) COPD with hypoxia: Status: Chronic (7) Homeless: Status: Acute DS: Medications Discharge Medications Home Medications: Home Medications ?Medication ?Instructions ?Recorded ?Confirmed loxapine succinate 50 mg capsule 100 mg PO BEDTIME 03/16/24 03/16/24 Previous Rx's ?Medication ?Instructions ?Recorded Loxapine 100 mg PO BEDTIME ##0 03/31/24 albuterol sulfate 90 mcg/actuation 2 puff inhalation RQ4H PRN 03/31/24 aerosol inhaler (Ventolin HFA) Shortness Of Breath/Wheezing 30 days #6.7 grams baclofen 10 mg tablet 10 mg PO BID 30 days #60 tabs 03/31/24 clonidine HCl 0.1 mg tablet 0.1 mg PO Q8H PRN anxiety 30 days 03/31/24 #60 tabs duloxetine 60 mg capsule,delayed 60 mg PO DAILY 30 days #30 caps 03/31/24 release hydroxyzine pamoate 50 mg capsule 50 mg PO Q6H PRN anxiety 30 days 03/31/24 #60 caps ipratropium 0.5 mg-albuterol 3 mg 3 ml inhalation Q4H PRN Shortness 03/31/24 (2.5 mg base)/3 mL nebulization Of Breath Or Wheezing 60 days #180 soln mL mirtazapine 45 mg tablet 45 mg PO BEDTIME 30 days #30 tabs 03/31/24 oxcarbazepine 150 mg tablet 150 mg PO BID 30 days #60 tabs 03/31/24 pantoprazole 20 mg tablet,delayed 20 mg PO DAILY 30 days #30 tabs 03/31/24 release pramipexole 0.125 mg tablet 0.125 mg PO BEDTIME 30 days #30 03/31/24 tabs pregabalin 75 mg capsule (Lyrica) 75 mg PO TID 30 days #90 caps 03/31/24 trazodone 150 mg tablet 150 mg PO BEDTIME 30 days #30 tabs 03/31/24 umeclidinium 62.5 mcg-vilanterol 1 ea inhalation BID 30 days #60 ea 03/31/24 25 mcg/actuation powdr for inhalation (Anoro Ellipta) DS: Summary Hospital Course Hospital Course: Patient is a 58-year-old male with history of depression, COPD, chronic respiratory failure with hypoxia (assessed for 2 L O2), history of DVT (no longer on anticoagulation), hyperlipidemia, ANA (hx of CPAP), long history of chronic, daily crack cocaine use, alcohol use disorder, remote opioid abuse who presents for ongoing depression and SI to overdose on fentanyl. Patient was psychiatrically hospitalized for January 17 -Mar 13 in the [facility]; he was discharged, homeless, feeling helpless with return of SI and within 2-3 days presented to the ED for SI. Patient initially medically admitted for acute on chronic respiratory failure with hypoxemia secondary to exacerbation of COPD and right sided pneumonia; he was treated with IV antibiotics and medically cleared on prednisone taper. Patient presents with depression and hopeless thoughts. He says suicidality is waning. He would like a substance abuse program to go to. Patient reports depression has been more prevalent since this past summer when he found his girlfriend and then a few months later was evicted from his housing. Denies AVH; denies any history of manic type episodes or behaviors. Formulation/clinical reasoning: Patient reports history of depression that he has treated with substance abuse. This past December 2023, 1st time patient started using medications for depression. Patient remains embroiled in substance abuse which contributes to quick return of depression. Patients homelessness and significant medical comorbidities including ANA not on CPAP which also very likely contribute towards mood. Will continue medications from recent psychiatric hospitalization since patient said his mood was pretty good there: mirtazapine, Cymbalta, Trileptal. Pt was also on Loxapine, though no reported history of psychotic or manic symptoms Hospital course: 03/25 pt remains depressed; passive SI. He reports trouble sleeping and says is usually on trazodone 150mg qhs; agrees to 100mg tonight with prn's available. Discussed medication for cocaine cravings and pt reports he's been on baclofen before which has helped; wants to get back on now. Also discussed suboxone which he says has helped in past; agrees to hold off from starting this now. -also discussed dispo, trouble getting into program. Pt says he wished he stayed at last hospitalization in [place] since they were working on housing. he regrets leaving prematurely, saying he left to go use. 03/26 still depressed, struggling w/ hopelessness. No SI and hoping for help w aftercare. Pt has trouble sleeping and asks for increase in Trazodone to 150mg; Will restart Loxapine since pt remains depressed and this med seemed to help mood in past -pt ambivalent about starting suboxone but thinks it might help w/ cravings 03/27: continue current tx plan. +SI with plan to overdose d/t anxiety and depression. worried about placement. 03/30 mood is a little bit better. He says medications are good but agrees to increase Cymbalta. He denies SI. Pt clarifies about previous SI statements; he reiterates saying he has no SI at all but sometimes, when he thinks about being back on the streets SI comes to his mind. Pt says he fees safe and stable to discharge. Discussed dispo and pt agrees to try and go to the [facility]...which may have room next week -Pt also clarified, saying he has no AVH at all; he's not sure why it was recorded otherwise, but denies any current AVH or any hx of it; rather he says it's just thoughts... Pt is stable on current medication regimen 03/31 pt reports he remains overall better; though still w/ some depression and anxiety, mood is better. He feels ready enough to discharge. No SI. fuller brush worker Sorin from [facility]NOTE 3] and in house SW discussed with pt dispo plan and he agrees with plan to go to [facility] as a stepping stone to either a program or a TSS. Feels medications are working well; sleeping and eating well. Pt remains with numerous medical comorbidities and currently is unable to have home 02 as he is homeless. Patient however has functioned this way in the community for years and has remained stable on the unit w/out supplemental 02. Impression: pt improved, mood better and anxiety down; denies SI. Pt is aware of risk of relapse but is optimistic that he'll remain sober and hopeful that he'll be able to get into a program from [facility] (which is now a sober senior care). Given the severity of his struggles with substance abuse, he remains vulnerable to both relapse and decompensation and at some point, may again become unsafe. However, this is a chronic issue that spans decades and one that will not resolve with longer stay on an inpt unit or with additional medication management. Rather it requires consistent commitment to sobriety and treatment with which pt is currently willing to pursue. Pt is not in imminent risk for harm to self or others and appropriate to return to the community for treatment. Time Spent with Patient Time attestation: Total time managing care of this patient today ____ minutes. Discharge Plan Discharge Anticipated Discharge Date/Time: 04/01/24 11:30 Patient Disposition: Fdc Discharge Diagnosis: MDD, recurrent, severe w/out psychosis, in partial remission Referrals: Physician,Unknown J [Primary Care Provider] - 1 Week Discharge Medications: New baclofen 10 mg Tablet 10 mg PO BID 30 Days Qty: 60 0RF Loxapine 100 mg PO BEDTIME Qty: 0 0RF Continued loxapine succinate 50 mg capsule 100 mg PO BEDTIME oxcarbazepine 150 mg tablet 150 mg PO BID 30 Days Qty: 60 0RF clonidine HCl 0.1 mg tablet 0.1 mg PO Q8H PRN (Reason: anxiety) 30 Days Qty: 60 0RF ipratropium-albuterol 0.5 mg-3 mg(2.5 mg base)/3 mL solution for nebulization 3 ml inhalation Q4H PRN (Reason: Shortness Of Breath Or Wheezing) 60 Days Qty: 180 0RF hydroxyzine pamoate 50 mg capsule 50 mg PO Q6H PRN (Reason: anxiety) 30 Days Qty: 60 0RF trazodone 150 mg Tablet 150 mg PO BEDTIME 30 Days Qty: 30 0RF pramipexole 0.125 mg tablet 0.125 mg PO BEDTIME 30 Days Qty: 30 0RF mirtazapine 45 mg tablet 45 mg PO BEDTIME 30 Days Qty: 30 0RF albuterol sulfate [Ventolin HFA] 90 mcg/actuation Hfa Aerosol Inhaler 2 puff inhalation RQ4H PRN (Reason: Shortness Of Breath/Wheezing) 30 Days Qty: 6.7 0RF Anoro Ellipta 62.5-25 mcg/actuation blister with device 1 ea INHALATION BID 30 Days Qty: 60 0RF pregabalin [Lyrica] 75 mg Capsule 75 mg PO TID 30 Days Qty: 90 0RF Changed duloxetine 60 mg capsule,delayed release(DR/EC) 60 mg PO DAILY 30 Days Qty: 30 0RF pantoprazole 20 mg tablet,delayed release (DR/EC) 20 mg PO DAILY 30 Days Qty: 30 0RF Discontinued prednisone 10 mg tablet See Taper PO DIRECTED Qty: 12 0RF Taper: Prednisone 30 mg daily for 2 Days and 0 Hour 20 mg daily for 2 Days and 0 Hour 10 mg daily for 2 Days and 0 Hour Rx Instructions: see taper instructions Discharge Orders: Discharge Order (Routine); Ordered 04/01/24 Ordered By: Sorin Cisneros Diet: Regular diet Activity on Discharge: As tolerated Stand Alone Forms: Patient Portal Discharge page Print Language: Chinese Care Plan Goals: Maintain mood and safe behaviors Take medications as prescribed Continue to pursue sobriety Practice coping skills Continue with outpatient providers and reach out to them as needed Health Concerns: Mood stability and behaviors Sobriety Plan of Treatment: Follow up with your PCP, psychiatric provider and other outpatient providers regarding above concerns Take medications as prescribed Assessment: Risk assessment at time of discharge:? Patient was interviewed prior to discharge and found to be fully oriented and without any SI or HI. Patient has improved insight and judgment and wants to continue treatment. Patient is not in imminent risk of harm to self or others and has a safety plan that includes presenting to the closest ER or calling 911 if feeling unsafe.? Patient has been observed closely by nursing and unit staff throughout admission; patient has not engaged in any behaviors that suggest dangerousness to self or others and has demonstrated appropriate behaviors and impulse control
[2024-03-31 20:00] VITALS: BP 145/67; PULSE 71; O2SAT 94
[2024-03-31] MEDS: traZODone HCL 50 MG TABLET 150 MG PO (20:37)
[2024-03-31] MEDS: Pramipexole Di-HCL 0.125 MG TABLET PO (20:37)
[2024-03-31] MEDS: Mirtazapine 15 MG TABLET 45 MG PO (20:37)
[2024-03-31] MEDS: LOXAPINE 50 MG 100 EACH PO (20:40)
[2024-04-01 08:00] VITALS: BP 143/78; PULSE 78; RESP 18; TEMP 36.9; O2SAT 94
[2024-04-01] MEDS: Omeprazole 20 MG CAPSULE.DR PO (08:14)
[2024-04-01] MEDS: OXcarbazepine 150 MG TABLET PO (08:14)
[2024-04-01] MEDS: ANORO ELLIPTA 1 EACH INHALE (08:14)
[2024-04-01] MEDS: Baclofen 10 MG TABLET PO (08:14)
[2024-04-01] MEDS: DULoxetine HCl 60 MG CAPSULE.DR PO (08:14)
[2024-04-01] MEDS: Pregabalin 75 MG CAPSULE PO (08:14)
[2024-04-01] MEDS: Naloxone HCl Nasal TAKE HOME 4 MG SPRAY 8 MG NOSTRILALT (08:58)
[2024-04-01 09:58] VITALS: BP 144/72
[2024-04-01] MEDS: hydrOXYzine HCL 50 MG TABLET PO (09:58)
[2024-04-01] MEDS: cloNIDine HCL 0.1 MG TABLET PO (09:58)
== END 2024-04-01 10:46 | disposition home or self-care (01) | DRG 885 ==
PROVIDERS: Admitting Provider Psychiatry & Neurology Psychiatry; Visit Provider Psychiatry & Neurology Psychiatry
DX: F33.2 Major depressive disorder, recurrent severe without psychotic features (principal); R45.851 Suicidal ideations; Z59.02 Unsheltered homelessness; J96.11 Chronic respiratory failure with hypoxia; F17.210 Nicotine dependence, cigarettes, uncomplicated; F14.10 Cocaine abuse, uncomplicated; Z71.6 Tobacco abuse counseling; M47.816 Spondylosis without myelopathy or radiculopathy, lumbar region; G47.33 Obstructive sleep apnea (adult) (pediatric); J44.9 Chronic obstructive pulmonary disease, unspecified; Z86.718 Personal history of other venous thrombosis and embolism; I50.812 Chronic right heart failure; Z79.899 Other long term (current) drug therapy
CPT/HCPCS: 36415; 80061; 83036

== ENCOUNTER → 2024-03-23 15:21 | Outpatient (BNV) | payer MEDICARE, MEDICAID, SELFPAY | PROVIDERS: Admitting Provider Psychiatry & Neurology Psychiatry; Visit Provider Psychiatry & Neurology Psychiatry | DX: F32.1 Major depressive disorder, single episode, moderate (principal); F14.10 Cocaine abuse, uncomplicated; I50.9 Heart failure, unspecified; M47.816 Spondylosis without myelopathy or radiculopathy, lumbar region | CPT/HCPCS: 90792; 99232 ==

== ENCOUNTER → 2024-05-11 19:24 | Outpatient (BNV) | payer MEDICARE, MEDICAID, SELFPAY | PROVIDERS: Admitting Provider Internal Medicine; Emergency Provider Emergency Medicine; PCP Physician Assistant; Visit Provider Internal Medicine | DX: R06.00 Dyspnea, unspecified (principal) | CPT/HCPCS: 93010 ==

== ENCOUNTER → 2024-05-11 19:24 | Outpatient (BNV) | payer MEDICARE, MEDICAID, SELFPAY | PROVIDERS: Emergency Provider Emergency Medicine; PCP Physician Assistant; Visit Provider Radiology Diagnostic Radiology | DX: R06.02 Shortness of breath (principal) | CPT/HCPCS: 71045 ==

== ENCOUNTER → 2024-05-12 01:13 | Outpatient (BNV) | payer MEDICARE, MEDICAID, SELFPAY | PROVIDERS: Admitting Provider Internal Medicine; Emergency Provider Emergency Medicine; PCP Physician Assistant; Visit Provider Internal Medicine | DX: J44.9 Chronic obstructive pulmonary disease, unspecified (principal); J96.21 Acute and chronic respiratory failure with hypoxia | CPT/HCPCS: 99232; 99239 ==

== ENCOUNTER 2024-07-21 08:03 | Outpatient (AMB) | payer MEDICARE, MEDICAID, SELFPAY ==
[2024-07-21 08:05] VITALS: BP 114/64; PULSE 80; RESP 20; TEMP 36.1; O2SAT 90; BMI 44.8
--- NOTE | 2024-07-21 08:05 | MHC.PC.OV ---
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 Required: No Accompanied by: Self / Same As Patient Allergies oxycodone Adverse Reaction (Unknown, Verified 07/21/24 08:24) GI upset Medication List - Last Reconciled 07/21/24 by Manuel Foy PA-C albuterol sulfate 90 mcg/actuation (Ventolin HFA) 2 puffs inhalation RQ4H PRN 30 days baclofen 10 mg PO BID 30 days clonidine HCl 0.1 mg PO TID duloxetine 20 mg PO DAILY hydroxyzine pamoate 50 mg PO Q6H PRN 30 days loxapine succinate 100 mg PO BEDTIME mirtazapine 45 mg PO BEDTIME 30 days omeprazole 20 mg PO DAILY@0630 oxcarbazepine 150 mg PO BID 30 days prednisone 40 mg (2 x 20 mg) PO DAILY pregabalin (Lyrica) 75 mg PO TID 30 days trazodone 150 mg PO BEDTIME 30 days umeclidinium-vilanterol 62.5-25 mcg/actuation (Anoro Ellipta) 1 ea inhalation DAILY Tobacco use date assessed: 07/21/24 Dental Screening Dental Screen Date: 07/21/24 Did you have a dental visit in the last 12 months?: No Did you have a dental problem in the last 6 months where you did not have access to dental care?: No Was dental information given to patient?: Patient has dentist HPI annual exam/overdue for an appt HPI Details Patient is a 58-year-old male here today for a routine annual physical Patient has a past medical history significant for ANA, Congestive heart failure, is COPD, history opiate dependence, major depression smoker. -->Patient admitted to [facility] in April of 2024 for an acute COPD exacerbation. He was previously at [facility] for an acute hypoxic respiratory failure due to a pneumonia. He was treated empirically with azithromycin and bronchodilators and improved clinically while in [facility]. .. COPD: Today's SpO2 sats mildly low at 90%. He is still seems to have some wheeze and rhonchi on physical exam today. He was started on Anoro during a previous hospitalization. Does have albuterol inhaler available to him. Unfortunately continues to smoke cigarettes. Due to patient's recurrent admissions for respiratory distress and continues smoking you would likely benefit from pulmonology evaluation and treatment as well. Will place referral to pulmonology .. Cocaine use disorder, alcohol use disorder: He has been sober now for 2 months and living in a nursing home house. He was recently homeless and actively using cocaine and alcohol over the last 4 years. .. PTSD/ MDD : Again now patient living in a nursing home home and has been 2 month sober. He is trying to get set up with a psychiatrist but now needs PCP to prescribe his mental health medication. He is on multiple meds per recent psych hospital admission including clonidine, Cymbalta, mirtazapine, oxcarbazepine and trazodone. .. Heart failure: Was recently admitted to the hospital few times and noted to have signs and symptoms of Congestive heart failure in the setting alcohol and cocaine use. He is now on furosemide which has helped him reduce his lower extremity edema. PLAN: Will abstain from alcohol and cocaine and continue to use furosemide on an as needed basis. Colorectal cancer screening: needs colonoscopy Vaccines: Up-to-date with flu vaccine, COVID vaccine, needs pneumonia vaccine, needs new tetanus vaccine [facility] Medical History (Updated 07/21/24 @ 08:49 by Manuel Foy PA-C) COPD (chronic obstructive pulmonary disease) Cocaine use disorder MDD (major depressive disorder) Homeless ANA (obstructive sleep apnea) Varicose veins of right lower extremity Peripheral vascular disease GERD (gastroesophageal reflux disease) History of pernicious anemia Hx of acute respiratory failure Edema Back pain Arthritis History of DVT of lower extremity Depression ANA treated with BiPAP Right-sided heart failure Surgical History History of incisional hernia repair Hx of esophagogastroduodenoscopy Hx of colonoscopy History of total right knee replacement S/P right knee arthroscopy Hx of tracheostomy Hx of total hip arthroplasty History of colostomy reversal History of colon resection H/O gastric bypass Family History Father Displacement of central venous catheter (CVC) Mother Unknown family medical history Social History (Updated 07/21/24 @ 08:32 by Manuel Foy PA-C) Household Members: None Housing: Homeless ([facility]) Do you presently have visiting nurse or other home services: No Alcohol intake: former Year quit: 2024 Patient Tobacco Use Status: Current everyday Tobacco user Tobacco use type: Cigarette Cigarette Packs Per Day: 0.5 Cigarettes Per Day: 10.0 Years Smoked: 40 e-Cigarette/Vaping Use: Former Use Second Hand Smoke Exposure: No Substance Use Type: Crack/Cocaine service: No Sexual orientation: Straight/Heterosexual Cognitive needs: No Hearing needs: No Vision needs: Yes (Reading glasses) Questionnaire PHQ-9 Over the last 2 weeks, how often have you been bothered by any of the following problems? 1. Little interest or pleasure in doing things: not at all 2. Feeling down, depressed, or hopeless: nearly every day 3. Trouble falling or staying asleep, or sleeping too much: nearly every day 4. Feeling tired or having little energy: nearly every day 5. Poor appetite or overeating: not at all 6. Feeling bad about yourself - or that you are a failure or have let yourself or your family down: nearly every day 7. Trouble concentrating on things, such as reading the newspaper or watching television: several days 8. Moving or speaking so slowly that other people could have noticed. Or the opposite - being so fidgety or restless that you have been moving around a lot more than usual: nearly every day 9. Thoughts that you would be better off or of hurting yourself in some way: nearly every day Total score: 19 Depression Screening Interpretation: Positive Depression Screening Follow-up: Existing condition and In treatment Depression Screening Done: Yes 13667 - PHQ-9 Billing: Yes Source: Developed by Drs. Jose Acevedo, Ally Mejia, Marlon Tinoco and colleagues, with an educational erasmo from [employer]. Thrive Questionnaire Date Thrive assessed: 07/21/24 I am a: Patient What is your living situation today?: I have a steady place to live ([facility]) Within the past 12 months, did the food you bought not last and you didn't have the money to get more?: Never true Within the past 12 months, did you worry whether your food would run out before you got money to buy more?: Never true Do you have trouble paying for medicines?: No Do you have trouble getting transportation to medical appointments?: No Do you have trouble paying your heating and electricity bill?: I choose not to answer this question Do you have trouble taking care of your child, family member or friend?: I choose not to answer this question Do you have trouble with day-to-day activities such as bathing, preparing meals, shopping, managing finances, etc.?: No Are you currently unemployed and looking for a job?: No Are you interested in more education?: No Please select the resources that you would like help with: None Currently or been in a relationship where the following occur: No concerns reported THRIVE Score: 0 AUDIT C Alcohol Use Questionnaire (AUDIT-C) 1. How often do you have a drink containing alcohol?: Never 3. How often do you have six or more drinks on one occasion?: Never Total Score: 0 SIL-7 AMB Questionnaire SIL-7 Date SIL - 7 assessed: 07/21/24 Feeling nervous, anxious, or on edge: 3 = Nearly every day Not being able to stop or control worryin = Nearly every day Worrying too much about different things: 3 = Nearly every day Trouble relaxin = Nearly every day Being so restless that it is hard to sit still: 3 = Nearly every day Becoming easily annoyed or irritable: 3 = Nearly every day Feeling afraid as if something awful might happen: 1 = Several days Total SIL-7 score (0-4 normal; 5-9 mild; 10-14 moderate; 15-21 severe): 19 Source: Developed by Drs. Jose Acevedo, Ally Mejia, Marlon Tinoco and colleagues, with an educational erasmo from [employer]. SIL-7 Assessment Billing SLI-7 Assessment Tool: SIL-7 Assessment 22292 Physical exam (Primary Care) Vital Signs: Last Vital Signs Temp 96.9 F 07/21/24 08:05 Pulse 80 07/21/24 08:05 Resp 20 07/21/24 08:05 BP 114/64 07/21/24 08:05 Pulse Ox 90 L 07/21/24 08:05 Oxygen Delivery Method Room Air 07/21/24 08:05 BMI result Body Mass Index 44.8 BMI Assessment/Plan discussion: High BMI High, discussed plan: lifestyle, weight reduction, dietary and physical activity Tobacco/Smoking Status: Tobacco use Status Tobacco use date assessed 07/21/24 07/21/24 08:19 Patient Tobacco Use Status Current everyday Tobacco 07/21/24 08:32 Tobacco use type Cigarette 07/21/24 08:32 e-Cigarette/Vaping Use Former Use 07/21/24 08:32 Are you ready to quit: No Tobacco cessation counseling provided: Yes Items discussed: Nicotine replacement Relapse Prevention: discussed the importance of a supportive environment, discussed negative mood or depression after quitting, weight gain after smoking is common and discussed dietary, exercise and/or lifestyle changes Number of minutes spent counselin CPT code: 06285 - 4-10 Minutes PHQ-9: PHQ-9 Score PHQ-9: Total score 19 07/21/24 10:26 Depression Screening Interpretation: Positive Depression Screening Follow-up: Existing condition and In treatment Thrive Assessment: Date of Thrive Assessment Date Thrive assessed 07/21/24 07/21/24 08:19 Currently or been in a relationship where the following occur: No concerns reported Immunizations pneumoc 20-shyla conj-dip cr(PF) 0.5 mL IM syringe Performing Provider: Manuel Foy PA-C Performing Location: [facility] Adult Primary [facility] Administered by: Savanah Tracy CMA on 07/21/24 08:51 Dose Route Admin Location Dispensed Lot Number Expiration Date [facility] Harness Maker 0.5 mL IM Left Deltoid 0.5 mL [id number] 10/12/25 [id number] [employer] VIS Given Date VIS Provided VIS Publication Date 07/21/24 Single Vaccine 21 Eligibility Eligibility Date Funding Source Not [facility] Eligible 07/21/24 Private Boostrix Tdap 2.5 Lf unit-8 mcg-5 Lf/0.5 mL intramuscular syringe Performing Provider: Manuel Foy PA-C Performing Location: [facility] Adult [facility] Administered by: Savanah Tracy CMA on 07/21/24 08:50 Dose Route Admin Location Dispensed Lot Number Expiration Date [facility] Harness Maker 0.5 mL IM Right Deltoid 0.5 mL [id number] 09/26/26 [id number] [employer] VIS Given Date VIS Provided VIS Publication Date 07/21/24 Single Vaccine 20 Eligibility Eligibility Date Funding Source Not [facility] Eligible 07/21/24 Private Coding Level of Care Code Est Pt Prev Care 40-64y(44641) Diagnoses Annual physical exam Z00.00 Tobacco dependence F17.200 Uncomplicated opioid dependence F11.20 Substance use status: uncomplicated Cocaine use disorder F14.10 Congestive heart failure, NYHA class 3, unspecified congestive heart failure type I50.9 Congestive heart failure type: unspecified Severe episode of recurrent major depressive disorder, without psychotic features F33.2 Active/Remission status: currently active Major depression episode severity: severe Major depression recurrence: recurrent Psychotic features: without psychotic features Chronic bronchitis, unspecified chronic bronchitis type J42 COPD type: chronic bronchitis Chronic bronchitis type: unspecified Cervical radiculopathy due to osteoarthritis of spine M47.22 Additional Codes SIL-7 Assessment Billing - SIL-7 Assessment Tool: SIL-7 Assessment 05907 ([id number]) PHQ-9 - 39863 - PHQ-9 Billing: Yes ([id number]) Vital Signs *Quality* - CPT code: 11307 - 4-10 Minutes ([id number]) Assessment & Plan Assessment & Plan (1) Annual physical exam: Code(s): Z00.00 - Encounter for general adult medical examination without abnormal findings Category: Medical Plan: As per HPI (2) Tobacco dependence: Code(s): F17.200 - Nicotine dependence, unspecified, uncomplicated Category: Medical Plan: Patient does understand he needs to quit smoking though has struggles to stop smoking. He is not interested in nicotine replacement at this time. (3) Opiate dependence: Code(s): F11.20 - Opioid dependence, uncomplicated Category: Medical Qualifiers: Substance use status: uncomplicated Qualified Code(s): F11.20 - Opioid dependence, uncomplicated Plan: He reports he has been abstaining from opiates for quite some time. His drug of choice was cocaine and alcohol. Not had any Suboxone and methadone at this time. He is currently living in a nursing home house. (4) Cocaine use disorder: Code(s): F14.10 - Cocaine abuse, uncomplicated Category: Medical Plan: As above patient has struggled twice a day cocaine. He is now sober over last 2 months from both alcohol and cocaine. He is trying to gain long-term sobriety at this time. (5) CHF (congestive heart failure), NYHA class III: Code(s): I50.9 - Heart failure, unspecified Category: Medical Qualifiers: Congestive heart failure type: unspecified Qualified Code(s): I50.9 - Heart failure, unspecified Plan: As per HPI patient does have heart failure in the setting of active cocaine and alcohol use. Does have furosemide to which he uses on as needed basis for lower extremity edema. Will continue to prescribe this medication to use on an as needed basis for fluid overload. Goal at this point is to continue to abstain from illicit drug use. (6) MDD (major depressive disorder): Code(s): F32.9 - Major depressive disorder, single episode, unspecified Category: Medical Qualifiers: Active/Remission status: currently active Major depression episode severity: severe Major depression recurrence: recurrent Psychotic features: without psychotic features Qualified Code(s): F33.2 - Major depressive disorder, recurrent severe without psychotic features Plan: Patient's PHQ-9 score positive for depression which has been existing condition for him. He is currently being set up with a mental health therapist and a psychiatrist through his sober living situation. For now will prescribe his multiple mental health medications until he gets set up with a mental health med provider. (7) COPD (chronic obstructive pulmonary disease): Code(s): J44.9 - Chronic obstructive pulmonary disease, unspecified Category: Medical Qualifiers: COPD type: chronic bronchitis Chronic bronchitis type: unspecified Qualified Code(s): J42 - Unspecified chronic bronchitis Plan: As per HPI patient has fairly moderate to severe COPD. He will continue on an oral maintenance inhaler. Will try to set him up with a nurse care manager for further evaluation and treatment. Unfortunately continues to smoke and does understand he needs to quit smoking. He declines my offers to start nicotine replacement at this time. (8) Cervical radiculopathy due to osteoarthritis of spine: Code(s): M47.22 - Other spondylosis with radiculopathy, cervical region Category: Medical Plan: He does report having neck pain and some radiculopathy into the upper extremities. He has interested in willing to do physical therapy for his neck pain. If fails physical therapy will consider more advanced imaging of his cervical spine to evaluate for disc herniation requiring surgical intervention. Orders: Orders TDaP Immunization 07/21/24 Z23 - Encounter for immunization Comprehensive [place]. Panel Fast 07/21/24 I50.9 - Heart failure, unspecified Complete Blood Count no Diff 07/21/24 I50.9 - Heart failure, unspecified Prostate Specific Antigen Scr 07/21/24 I50.9 - Heart failure, unspecified, Z12.5 - Encounter for screening for malignant neoplasm of prostate Pneumococcal 20 Immunization 07/21/24 Z23 - Encounter for immunization NT-proBNP 07/21/24 I50.9 - Heart failure, unspecified Microalbumin, Random (w Creat) 07/21/24 I50.9 - Heart failure, unspecified PT Evaluation and Treatment 07/21/24 M47.22 - Other spondylosis with radiculopathy, cervical region Referrals Gastroenterology Referral Z12.11 - Encounter for screening for malignant neoplasm of colon Pulmonology Referral J42 - Unspecified chronic bronchitis Medications: New umeclidinium-vilanterol 62.5-25 mcg/actuation (Anoro Ellipta) 1 ea inhalation DAILY 60 ea 3RF 30 days J42 - Unspecified chronic bronchitis furosemide 20 mg PO Q OTHER DAY 15 tabs 1RF 30 days I50.9 - Heart failure, unspecified Changed From clonidine HCl 0.1 mg PO TID F33.2 - Major depressive disorder, recurrent severe without psychotic features To clonidine HCl 0.1 mg PO TID 270 tabs 1RF 90 days F33.2 - Major depressive disorder, recurrent severe without psychotic features From hydroxyzine pamoate 50 mg PO Q6H 30 days PRN 60 caps 0RF anxiety F33.2 - Major depressive disorder, recurrent severe without psychotic features To hydroxyzine pamoate 50 mg PO TID PRN 270 caps 1RF anxiety 90 days F33.2 - Major depressive disorder, recurrent severe without psychotic features From duloxetine 20 mg PO DAILY F33.2 - Major depressive disorder, recurrent severe without psychotic features To duloxetine 20 mg PO DAILY 90 caps 1RF 90 days F33.2 - Major depressive disorder, recurrent severe without psychotic features From mirtazapine 45 mg PO BEDTIME 30 days 30 tabs 0RF F33.2 - Major depressive disorder, recurrent severe without psychotic features To mirtazapine 45 mg PO BEDTIME 90 tabs 1RF 90 days F33.2 - Major depressive disorder, recurrent severe without psychotic features From oxcarbazepine 150 mg PO BID 30 days 60 tabs 0RF F33.2 - Major depressive disorder, recurrent severe without psychotic features To oxcarbazepine 150 mg PO BID 180 tabs 1RF 90 days F33.2 - Major depressive disorder, recurrent severe without psychotic features From trazodone 150 mg PO BEDTIME 30 days 30 tabs 0RF F33.2 - Major depressive disorder, recurrent severe without psychotic features To trazodone 150 mg PO BEDTIME 90 tabs 1RF 90 days F33.2 - Major depressive disorder, recurrent severe without psychotic features Refilled albuterol sulfate 90 mcg/actuation (Ventolin HFA) 2 puffs inhalation RQ4H PRN 8.5 grams 3RF Shortness Of Breath/Wheezing 30 days J42 - Unspecified chronic bronchitis Discontinued prednisone Discontinued Reason: Doctor's Order 40 mg (2 x 20 mg) PO DAILY 10 tabs 0RF Patient Instructions: Goal: Stopped smoking and control COPD, stay sober from illicit drug use Barriers: Adherence to physical activity and healthy eating habits
--- OUTSIDE RECORDS SUMMARY | 2024-07-21 08:10 | XMS_ITS | Encounter Summary ---
Author Organization [facility] Address [address] [place] [address] Care Team Providers Care Willow Analyst Name Role Phone Paulo Schwarz Primary Care Provider [phone] Encounter Details Date Type Department Care Team ([facility] st Contact Info) Description 04/22/2017 [facility] Only [facility] Pre-Admission Testing [address] [facility] [address] [place] [address] Lexie Rust NP Social History Tobacco Use Types Packs/Day Years Used Date Smoking Tobacco: Every Day Cigarettes 1 30 Smokeless Tobacco: Never Alcohol Use Standard Drinks/Week Comments No 0 (1 standard drink = 0.6 oz pur e alcohol) Sex and Gender Information Value Date Recorded Sex Assigned at Not on file Legal Sex Male 12:09 AM EDT Gender Identity Not on file Sexual Orientation Not on file documented as of this encounter Plan of Treatment Not on file documented as of this encounter Procedures * Due to [place] state law, this organization might not be sharing negative HIV tests. Procedure Name Priority Date/Time Associated Diagnosis Comments MRSA CULTURE SCREEN, NASAL ONLY Routine 04/22/2017 12:22 PM EST Pre-operative examination Primary osteoarthritis of right knee Sleep apnea, unspecified type Increased frequency of urination EKG-TO BE READ & BILLED BY ADULT OR PEDIATRIC CARDIOLOGY Routine 04/22/2017 10:16 AM EST Primary osteoarthritis of right knee Sleep apnea, unspecified type Increased frequency of urination CULTURE, URINE, ROUTINE Routine 04/22/2017 9:54 AM EST Pre-operative examination Primary osteoarthritis of right knee Sleep apnea, unspecified type Increased frequency of urination PROTHROMBIN TIME (PT) (INR), BLOOD Routine 04/22/2017 9:54 AM EST Pre-operative examination Primary osteoarthritis of right knee Sleep apnea, unspecified type Increased frequency of urination CBC INCLUDES DIFFERENTIAL AND PLATELET COUNT Routine 04/22/2017 9:54 AM EST Pre-operative examination Primary osteoarthritis of right knee Sleep apnea, unspecified type Increased frequency of urination BASIC METABOLIC PANEL WITH (GFR) Routine 04/22/2017 9:54 AM EST Pre-operative examination Primary osteoarthritis of right knee Sleep apnea, unspecified type Increased frequency of urination documented in this encounter Results * Due to [place] state law, this organization might not be sharing negative HIV tests. * MRSA CULTURE SCREEN, NASAL ONLY (04/22/2017 12:22 PM EST) Pathologist [facility] Methicillin Resistant Staphylococcus Aureus Screen SEE NOTE [facility] Comment: ??MRSA CULTURE SCREEN ??MICRO NUMBER: ?[id number] ??TEST STATUS: ? FINAL ??SPECIMEN SOURCE: ?? NOT GIVEN ??SPECIMEN QUALITY: ??ADEQUATE ??RESULT: ?No methicillin resistant Staphylococcus aureus ? (MRSA) isolated. 04/22/2017 12:2 2 PM EST 04/22/2017 5:52 PM EST Narrative Resulting Agency Comment [id number] Lexie Rust NP LABORATORY Final Result Performing Organization Address City/State/[facility] Co de Phone Number [facility] [address] [place] [address] * EKG-TO BE READ AND BILLED BY CARDIOLOGY (04/22/2017 10:16 AM EST) VENTRICULAR RATE 77 BPM MUS E EKG SYSTEM ATRIAL RATE 77 BPM MUSE EKG SYSTEM P-R INTERVAL 120 ms MUSE EK G SYSTEM QRS DURATION 84 ms MUSE EK G SYSTEM QT 364 ms MUSE EKG SYSTEM QTC 411 ms MUSE EKG SYSTEM P AXIS 61 degrees MUSE EKG SYSTEM R AXIS 36 degrees MUSE EKG SYSTEM T AXIS 51 degrees MUSE EKG SYSTEM EKG INTERPRETATION Normal sinus rhythm Normal ECG When compared with ECG of 15-BRET-2013 10:36, No significant change was found MUSE EKG SYSTEM 04/22/2017 10:1 6 AM EST 04/22/2017 10:11 PM EST Lexie Rust NP CARDIOVASCULAR-WITH INBSKT R TG Final Result Performing Organization Address [facility] de Phone Number MUSE EKG SYSTEM * CULTURE, URINE, ROUTINE (04/22/2017 9:54 AM EST) Bacteria culture (Urine) SEE NOTE [facility] Comment: ??CULTURE, URINE, ROUTINE ??MICRO NUMBER: ?[id number] ??TEST STATUS: ? FINAL ??SPECIMEN SOURCE: ?? NOT GIVEN ??SPECIMEN QUALITY: ??ADEQUATE ??RESULT: ?Single organism less than 10,000 CFU/mL isolated. ? These organisms, commonly found on external and ? internal genitalia, are considered colonizers. ? No further testing performed. 04/22/2017 9:54 AM EST 04/22/2017 2:49 PM EST Narrative Resulting Agency Comment [id number] Lexie Rust NP LABORATORY Final Result Performing Organization Address [facility] de Phone Number [facility] [address] [place] [address] * PROTHROMBIN TIME (PT) (INR), BLOOD (04/22/2017 9:54 AM EST) INR 1.0 [facility] Comment: Reference Range ? 0.9-1.1 Moderate-intensity Warfarin Therapy 2.0-3.0 Higher-intensity Warfarin Therapy ?? 3.0-4.0 PT 10.3 9.0 - 11.5 sec [facility] Comment: For more information on this test, go to: http://education.OPPRTUNITY/faq/LFF510 04/22/2017 9:54 AM EST 04/22/2017 2:49 PM EST Narrative Resulting Agency Comment [id number] us Lexie Rust DESCRIPTIVE CATALOG [facility] LAB SAME DAY RESULT Final Re sult Performing Organization Address City/[facility] Co de Phone Number [facility] [address] [place] [address] * (ABNORMAL) CBC INCLUDES DIFFERENTIAL AND PLATELET COUNT (04/22/2017 9:54 AM EST) WBC 11.1(H) 3.8 - 10.8 Thousand/u L [facility] RBC 5.74 4.20 - 5.80 Million/uL [facility] Hemoglobin 15.5 13.2 - 17.1 g/dL [facility] Hematocrit 47.0 38.5 - 50.0 % [facility] MCV 81.9 80.0 - 100.0 fL [facility] MCH 27.0 27.0 - 33.0 pg [facility] MCHC 33.0 32.0 - 36.0 g/dL [facility] RDW 15.4(H) 11.0 - 15.0 % [facility] PLT 252 140 - 400 Thousand/u L [facility] MPV 10.6 7.5 - 12.5 fL [facility] Neutrophils # 8314(H) 1500 - 7800 cells/uL [facility] Lymphocytes # 1621 850 - 3900 cells/uL [facility] Monocytes # 866 200 - 950 cells/uL [facility] Eosinophils # 189 15 - 500 cells/uL [facility] Basophils # 111 0 - 200 cells/uL [facility] Neutrophils % 74.9 % [facility] Lymphocytes % 14.6 % [facility] Monocytes % 7.8 % [facility] Eosinophils % 1.7 % [facility] Basophils % 1.0 % [facility] 04/22/2017 9:54 AM EST 04/22/2017 2:49 PM EST Narrative Resulting Agency Comment [id number] us Lexie Rust DESCRIPTIVE CATALOG [facility] LAB SAME DAY RESULT Final Re sult Performing Organization Address City/[facility] Co de Phone Number [facility] [address] [place] [address] * (ABNORMAL) BASIC METABOLIC PANEL WITH (GFR) (04/22/2017 9:54 AM EST) Glucose 79 65 - 99 mg/dL [facility] Comment:Fasting reference in terval Urea Nitrogen Blood (BUN) 6(L) 7 - 25 mg/dL [facility] Creatinine 0.88 0.70 - 1.33 mg/dL [facility] Comment: For patients >49 years of age, the reference limit for Creatinine is approximately 13% higher for people identified as -Liberian. GFR 100 > OR = 60 mL/min/1. 73m2 [facility] GFR () 116 > OR = 60 mL/min/1. 73m2 [facility] BUN/Creatinine Ratio 7 6 - 22 (calc) [facility] Sodium 141 135 - 146 mmol/L [facility] Potassium 4.3 3.5 - 5.3 mmol/L [facility] Chloride 106 98 - 110 mmol/L [facility] Carbon dioxide 28 20 - 31 mmol/L [facility] Calcium 9.8 8.6 - 10.3 mg/dL [facility] 04/22/2017 9:54 AM EST 04/22/2017 2:49 PM EST Narrative [facility] - 04/22/2017 4:20 PM EST Please note that this estimated GFR does not include an adjustment for the patient's height or weight, and can therefore, be viewed as reliable only for patients with heights between 60 and 72 . More precise quantification using a 24-hour urine sample or height-based algorithm is recommended for patients outside of this range of height and for those individuals with more precise needs for GFR calculation. Resulting Agency Comment [id number] Lexie Rust NP LABORATORY Final Result [facility] [address] [place] [address] documented in this encounter Visit Diagnoses Diagnosis Pre-operative examination Preoperative examination, unspecified Primary osteoarthritis of right knee Primary localized osteoarthrosis, lower leg Sleep apnea, unspecified type Increased frequency of urination Urinary frequency documented in this encounter Care Teams Willow Analyst Relationship Specialty Start Date End Date Paulo Schwarz [address] [place] [address] [place] [address] PCP - General 01/07/08 documented as of this encounter
--- OUTSIDE RECORDS SUMMARY | 2024-07-21 08:10 | XMS_ITS | Encounter Summary ---
Author Organization [facility] Address [address] [place] [address] Care Team Providers Care Applications Support Engineer Name Role Phone Paulo Schwarz Primary Care Provider [phone] Encounter Details Date Type Department Care Team ([facility] st Contact Info) Description 09/29/[address] [facility] Orthopedic Surgery [address] [facility] [address] [place] [phone] Suresh Velazquez MD [address] [place] [address] Social History Tobacco Use Types Packs/Day Years [...] on file Sexual Orientation Not on file COVID-19 Exposure Response Date Recorded In the last month, have you been in contact with someone who was confirmed or suspected to have Coronavirus / COVID-19? Unable to assess 10/01/2019 7:23 AM EDT documented as of this encounter Plan of Treatment Not on file documented as of this encounter Results * Due to [place] state law, this organization might not be sharing negative HIV tests. * XR KNEE ORTHO - RT (DX: KNEE PAIN *NO INJURY* M25.561/ 719.46)(AGE>=35, CAN WEIGHT-BEAR) FC (11/13/2019 1:26 PM EDT) Anatomical Region Laterality Modality LOWER EXTREMITY Radiographic [place] 11/16/2019 10:1 4 AM EDT Addenda This result is currently undergoing an addendum. Addendum by Chandni Castaneda MD on 11/19/2019 3:03 PM EDT ADDENDUM: Comparison: Prior studies dated 05/06/2017 and 03/21/2017 has become available. ?? The moderate sized right suprapatellar joint effusion and probable intra-articular loose bodies appear new. : ??AP BILATERAL KNEES AND X-RAY RIGHT KNEE Comparison: None FINDINGS: Frontal view of the bilateral knees and lateral and sunrise views of the right knee demonstrate a right total knee arthroplasty. ??No periprosthetic lucency to suggest loosening or infection. ??Moderate sized right suprapatellar joint effusion. ??Probable intra-articular loose bodies within the anterior joint space on the right. ??There is moderate medial and lateral joint space narrowing of the left knee. 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 ??Adjacent soft tissue calcification measuring 1.7 cm, likely related to remote trauma. IMPRESSION: ? Adequate postoperative alignment status post right total knee arthroplasty. Moderate sized right suprapatellar joint effusion and probable intra-articular loose bodies within the anterior joint space on the right. Degenerative changes of the medial lateral compartments of the left knee. Additional incidental findings as detailed. Narrative 11/16/2019 10:14 AM EDT EXAM: ??AP BILATERAL KNEES AND X-RAY RIGHT KNEE Comparison: None FINDINGS: Frontal view of the bilateral knees and lateral and sunrise views of the right knee demonstrate a right total knee arthroplasty. ??No periprosthetic lucency to suggest loosening or infection. ??Moderate sized right suprapatellar joint effusion. ??Probable intra-articular loose bodies within the anterior joint space on the right. ??There is moderate medial and lateral joint space narrowing of the left knee. 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 ??Adjacent soft tissue calcification measuring 1.7 cm, likely related to remote trauma. IMPRESSION: ? Adequate postoperative alignment status post right total knee arthroplasty. Moderate sized right suprapatellar joint effusion and probable intra-articular loose bodies within the anterior joint space on the right. Degenerative changes of the medial lateral compartments of the left knee. Additional incidental findings as detailed. Procedure Note Chandni Castaneda MD - 11/16/2019 EXAM: AP BILATERAL KNEES AND X-RAY RIGHT KNEE Comparison: None FINDINGS: Frontal view of the bilateral knees and lateral and sunrise views of theright knee demonstrate a right total knee arthroplasty. No periprostheticlucency to suggest loosening or infection. Moderate sized right suprapatellar joint effusion. Probable intra-articular loose bodies within the anterior joint space on the right. There is moderate medial and lateral joint spacenarrowing of the left knee. Osteochondroma projecting from the left medialmetaphyseal region of the tibia. Adjacent soft tissue calcification measuring 1.7 cm, likely related to remote trauma. IMPRESSION: Adequate postoperative alignment status post right total kneearthroplasty. Moderate sized right suprapatellar joint effusion and probableintra-articular loose bodies within the anterior joint space on the right. Degenerative changes of the medial lateral compartments of the left knee. Additional incidental findings as detailed. Suresh Velazquez MD IMG XRAY NO CONTRAST ORDERABLE S Edited documented in this encounter Visit Diagnoses Diagnosis Right knee pain, unspecified chronicity Right knee pain, unspecified chronicity documented in this encounter Care Teams Applications Support Engineer Relationship Specialty Start Date End Date Paulo Schwarz [address] [place] [address] [place] [address] PCP - General 01/07/08 documented as of this encounter
--- OUTSIDE RECORDS SUMMARY | 2024-07-21 08:10 | XMS_ITS | Continuity of Care Document ---
Author Organization [facility] Address [address] [place] [address] Care Team Providers Care Evp Operations Name Role Phone Paulo Schwarz Primary Care Provider [phone] Encounters Date Type Department Care Team Description 11/13/2019 Travel 11/13/2019 1:15 PM EDT Radiology [facility] Xray [address] [facility] [address] [place] [phone] Right knee pain, unspecified chronicity 11/13/2019 1:30 PM EDT Consult (Initial) [facility] Orthopedic Surgery [address] [facility] [address] [place] [address] Suresh Velazquez MD Status post total right knee replacement (Primary Dx) 10/06/2019 Travel 10/01/2019 Travel 09/29/2019 Orders Only [facility] Orthopedic Surgery [address] [facility] [address] [place] [phone] Suresh Velazquez MD 09/24/2019 Telephone [facility] Orthopedic Surgery [address] [facility] [address] [place] [address] Suresh Velazquez MD Error 09/23/2019 Orders Only [facility] Orthopedic Surgery [address] [facility] [address] [place] [address] Suresh Velazquez MD 09/23/2019 Travel 09/22/2019 Telephone [facility] Orthopedic Surgery [address] [facility] [address] [place] [address] Suresh Velazquez MD Imaging Request 05/20/2017 Telephone [facility] Orthopedic Surgery [address] [facility] [address] [place] [address] Suresh Velazquez MD Patient Questions 05/16/2017 Home Visit NELLIE KITCHEN UNSPEC Suresh Velazquez MD 05/16/2017 Refill [facility] Orthopedic Surgery [address] [facility] [address] [place] [address] Suresh Velazquez MD Refill Request 05/16/2017 Telephone [facility] Orthopedic Surgery [address] [facility] [address] [place] [address] Suresh Velazquez MD Refill Request 05/14/2017 Home Visit NELLIE KITCHEN UNSPEC Suresh Velazquez MD 05/14/2017 Telephone [facility] Orthopedics [address] [address] Suresh Velazquez MD VNA Communication 05/14/2017 Telephone [facility] Orthopedic Surgery [address] [address] Suresh Velazquez MD Patient Questions 05/06/2017 Minor Procedure/Test NON [facility] [address] [place] [address] Suresh Velazquez MD 05/06/2017 [facility] NON [facility] [address] [place] [address] Suresh Velazquez MD 05/02/2017 Orders Only NON [facility] [address] [place] [address] Suresh Velazquez MD 04/23/2017 Orders Only [facility] Cardiology [address] [facility] [address] [place] [address] Peggy Gomez Tech 04/22/2017 Orders Only [facility] Pre-Admission Testing [address] [address] Lexie Rust NP 04/22/2017 9:30 AM EST Office Visit [facility] Pre-Admission Testing 123 [facility] [address] [place] [address] Lexie Rust NP Pre-operative examination (Primary Dx); Primary osteoarthritis of right knee; Sleep apnea, unspecified type; Increased frequency of urination; Gastroesophageal reflux disease; Deep vein thrombosis (DVT) of proximal lower extremity, unspecified chronicity, unspecified laterality; Obesity, unspecified classification, unspecified obesity type, unspecified whether serious comorbidity present; Iron deficiency anemia, unspecified iron deficiency anemia type; Vitamin B 12 deficiency 04/04/2017 Telephone [facility] Orthopedic Surgery [address] [address] Suresh Velazquez MD Patient Questions 03/21/2017 2:30 PM EST Office Visit [facility] Orthopedic Surgery [address] [address] Suresh Velazquez MD Primary osteoarthritis of right knee (Primary Dx) 11/15/2016 7:45 AM EDT Office Visit [facility] Orthopedic Surgery [address] [address] Ld Mensah PA Primary osteoarthritis of right knee (Primary Dx) 04/19/2016 9:30 AM EST Office Visit [facility] Orthopedic Surgery [address] [address] Suresh Velazquez MD Osteoarthrosis involving lower leg (Primary Dx) 09/02/2015 9:15 AM EDT Consult (Initial) [facility] Orthopedic Surgery [address] [address] Suresh Velazquez MD Osteoarthrosis involving lower leg (Primary Dx) 12/06/2014 Telephone [facility] [address] [place] [address] Stuart Herrera NP Refill Request 11/05/2014 10:45 AM EDT [facility]iology [facility] [address] [place] [phone] Bilateral hip pain 11/05/2014 11:45 AM EDT Office Visit [facility] [address] [place] [phone] Stuart Herrera NP Muscle strain of gluteal region, unspecified laterality, initial encounter (Primary Dx) 11/04/2014 Orders Only [facility] [address] [place] [phone] Stuart Herrera NP 07/29/2014 Orders Only NON FC [facility] [address] [place] [address] Svh, Unknown Provider 07/29/2014 2:00 PM EDT Consult (Initial) [facility] Orthopedic Surgery [address] [address] Stuart Herrera NP Muscle strain of left gluteal region, initial encounter (Primary Dx) 07/27/2014 Telephone [facility] Orthopedics [address] [address] Suresh Velazquez MD Patient Questions 03/24/2014 10:30 AM EST Office Visit [facility] Orthopedic Surgery Suite [facility] [address] [address] Becca Du NP Sciatica (Primary Dx) 03/17/2014 Telephone [facility] Orthopedic Surgery Suite [facility] [address] [address] Suresh Velazquez MD Patient Questions 07/28/2013 Telephone [facility] Orthopedic Surgery [address] [place] [address] Suresh Velazquez MD Letter/form Request (dr velazquez) 07/01/2013 Consult (Initial) [facility]HABILITATION UNSPEC Provider, Unknown 04/27/2013 3:00 PM EST Office Visit [facility] Orthopedic Surgery Suite [facility] [address] [address] Becca Du NP Iliotibial band syndrome (Primary Dx) 04/07/2013 Telephone [facility] Orthopedic Surgery [address] [place] [address] Suresh Velazquez MD No Show 02/02/2013 Refill [facility] Orthopedic Surgery [address] [address] Suresh Velazquez MD Refill Request 01/21/2013 Refill [facility] Orthopedic Surgery [address] [facility] [address] [place] [address] Suresh Velazquez MD Refill Request (isa) 01/08/2013 Refill [facility] Orthopedic Surgery [address] [facility] [address] [place] [address] Suresh Velazquez MD Refill Request 01/07/2013 Letter/Form [facility] Orthopedic Surgery [address] [facility] [address] [place] [address] Suresh Velazquez MD 12/23/2012 Refill [facility] Orthopedic Surgery [address] [facility] [address] [place] [address] Suresh Velazquez MD Refill Request 12/18/2012 10:45 AM EDT Office Visit [facility] Orthopedic Surgery [address] [facility] [address] [place] [address] Suresh Velazquez MD Osteoarthritis of the pelvic region and thigh (Primary Dx) 12/12/2012 Telephone [facility] Orthopedic Surgery [address] [facility] [address] [place] [address] Suresh Velazquez MD Other (dr velazquez) 12/10/2012 Telephone [facility] Orthopedic Surgery [address] [facility] [address] [place] [address] Suresh Velazquez MD Patient Questions (Dr. Velazquez) 12/09/2012 Refill [facility] Orthopedic Surgery [address] [facility] [address] [place] [address] Suresh Velazquez MD Refill Request 12/08/2012 Orders Only [facility] Orthopedic Surgery [address] [facility] [address] [place] [address] Suresh Velazquez MD 12/08/2012 Refill [facility] Orthopedic Surgery [address] [facility] [address] [place] [address] Suresh Velazquez MD Refill Request 12/03/2012 Refill [facility] Orthopedic Surgery [address] [facility] [address] [place] [address] Suresh Vealzquez MD Refill Request ( ) 12/01/2012 Orders Only ORTHO SURG UNSPECIFIED Suresh Velazquez MD 11/27/2012 Telephone [facility] Orthopedic Surgery [address] [facility] [address] [place] [address] Suresh Velazquez MD Other (Becca Wagneruld ) 11/26/2012 Refill [facility] Orthopedic Surgery [address] [facility] [address] [place] [address] Suresh Velazquez MD Refill Request (Dr. Velazquez ) 11/24/2012 Orders Only ORTHO SURG UNSPECIFIED Suresh Velazquez MD 11/19/2012 [facility] NON FC [facility] [address] [place] [address] Suresh Velazquez MD 11/14/2012 Orders Only NON FC [facility] [address] [place] [address] Suresh Velazquez MD 10/27/2012 Orders Only [facility] Cardiology [address] [facility] [address] [place] [address] [facility] 10/27/2012 11:15 AM EDT Office Visit [facility] Pre-Admission Testing 123 [facility] [address] [place] [address] Khurram Sunshine MD Pre-operative examination (Primary Dx); Osteoarthritis of hip; Sleep apnea; Deep vein thrombosis; Gastroesophageal reflux disease; Seizures; Urinary frequency; Obesity 10/09/2012 Refill [facility] Orthopedic Surgery [address] [facility] [address] [place] [address] Suresh Velazquez MD Refill Request 09/19/2012 Orders Only [facility] Orthopedic Surgery [address] [facility] [address] [place] [address] Suresh Velazquez MD 09/05/2012 Refill [facility] Orthopedic Surgery [address] [facility] [address] [place] [address] Suresh Velazquez MD Refill Request 09/05/2012 11:00 AM EDT Consult (Initial) [facility] Orthopedic Surgery [address] [facility] [address] [place] [address] Suresh Velazquez MD Osteoarthritis of the pelvic region and thigh (Primary Dx) 07/04/2010 3:45 PM EDT Office Visit [facility] Orthopedic Surgery [address] [facility] [address] [place] [address] Suresh Velazquez MD DJD (degenerative joint disease) of hip (Primary Dx) 05/05/2010 Telephone [facility] Orthopedic Surgery [address] [facility] [address] [place] [phone] Suresh Velazquez MD No Show (Balcom) 02/14/2010 Telephone [facility] Orthopedic Surgery [address] [facility] [address] [place] [address] Suresh Velazquez MD Cancellation (Balcom) 12/28/2009 Telephone [facility] Orthopedic Surgery [address] [facility] [address] [place] [address] Suresh Velazquez MD Patient Questions (BALCOM) 09/30/2009 Refill [facility] Orthopedic Surgery [address] [facility] [address] [place] [address] Suresh Velazquez MD Refill Request 09/14/2009 Refill [facility] Orthopedic Surgery [address] [facility] [address] [place] [address] Suresh Velazquez MD Refill Request 09/02/2009 Telephone [facility] Orthopedic Surgery [address] [facility] [address] [place] [address] Suresh Velazquez MD Patient Questions (balcom) 08/24/2009 Refill [facility] Orthopedic Surgery [address] [facility] [address] [place] [address] Suresh Velazquez MD Refill Request 08/04/2009 Refill [facility] Orthopedic Surgery [address] [address] Suresh Velazquez MD Refill Request 07/26/2009 9:15 AM EDT Office Visit [facility] Orthopedic Surgery [address] [address] Suresh Velazquez MD Osteoarth NOS-unspec (Primary Dx) 07/21/2009 Telephone [facility] Orthopedic Surgery [address] [address] Suresh Velazquez MD Patient Questions (BALCOM) 07/19/2009 Telephone [facility] Orthopedic Surgery [address] [address] Suresh Velazquez MD Patient Questions (balcom) 07/13/2009 Telephone [facility] Orthopedic Surgery [address] [address] Suresh Velazquez MD Patient Questions (balcom) 07/08/2009 Telephone [facility] Orthopedic Surgery [address] [address] Suresh Velazquez MD Patient Questions (Balcom ) 07/07/2009 Telephone [facility] Orthopedic Surgery [address] [address] Suresh Velazquez MD VNA Communication 07/07/2009 Telephone [facility] Orthopedic Surgery [address] [address] Suresh Velazquez MD VNA Communication (dr velazquez) 07/04/2009 Telephone [facility] Orthopedic Surgery [address] [address] Suresh Velazquez MD Patient Questions (Balcom ) 06/28/2009 Consult (Initial) NON [facility] [address] [place] [address] [facility], Unknown Provider 06/28/2009 [facility] NON [facility] [address] [place] [address] Suresh Velazquez MD 06/23/2009 Orders Only NON FC [facility] [address] [place] [address] Suresh Velazquez MD 06/09/2009 Orders Only [facility] Cardiology [address] [facility] [address] [place] [address] Lin John Tech 06/08/2009 Orders Only NON FC SA NON FC UNK Provider, Unknown 06/08/2009 8:00 AM EST Office Visit [facility] Pre-Admission Testing 123 [facility] [address] [place] [address] Lexie Rust NP Preop examination; Osteoarthritis of hip; Urinary frequency; Morbid obesity; DVT (deep venous thrombosis); GERD (gastroesophageal reflux disease); Sleep apnea 05/12/2009 Telephone [facility] Orthopedic Surgery [address] [facility] [address] [place] [address] Suresh Velazquez MD [facility] 05/06/2009 Orders Only [facility] Orthopedic Surgery [address] [address] Suresh Velazquez MD 05/06/2009 1:15 PM EST Office Visit [facility] Orthopedic Surgery [address] [address] Suresh Velazquez MD Osteoarth NOS-unspec (Primary Dx) 01/26/2009 Telephone [facility] Orthopedic Surgery [address] [facility] [address] [place] [address] Paulo Schwarz Cancellation (Balcom ) 04/23/2008 Telephone [facility] Orthopedic Surgery [address] [address] Suresh Velazquez MD 04/23/2008 Orders Only NON FC [facility] [address] [place] [address] Suresh Velazquez MD Allergies No known active allergies Medications Hydrocodone-Drake taminophen 10-325 MG Tab 1 TABLET EVERY 6 HOURS NEEDED 45 Tab 0 12/23/2012 Active Baclofen 10 MG Tab 1 TABLET 3 TIMES DAILY 90 Tab 0 11/05/2014 Active Ferrous Sulfate (IRON) 325 (65 FE) MG Tab 1 TABLET DAILY Active Pregabalin (LYRICA) 75 MG Cap 1 TABLET DAILY Active Omeprazole 20 MG CAPSULE DELAYED RELEASE 1 CAPSULE DAILY Active Active Problems Problem Noted Date Diagnosed Date Sleep apnea 10/27/2012 Osteoarthritis of hip 10/27/2012 Gastroesophageal reflux disease 10/27/2012 Overview (08/16/2020): Deep vein thrombosis 10/27/2012 Immunizations Name Administration Dates Next Due Influenza,injectable,quad,preservative 0 PPV23 (Pneumovax) 04/23/2019 Social History Smoking Status as of 07/21/2024 Tobacco Use Types Packs/Day Years Used Date Smoking Tobacco: Never Assessed Intimate Partner Violence Answer Date R ecorded Fear of Current or Ex-Partner Not on file Emotionally Abused Not on file 12/04/2022 Physically Abused Not on file 12/04/2022 Sexually Abused Not on file 12/04/2022 Feel Safe at Home Not on file 12/04/2022 Sex and Gender Information Value Date Recorded Sex Assigned at Not on file Legal Sex Male 12:09 AM EDT Gender Identity Not on file Sexual Orientation Not on file Last Filed Vital Signs Vital Sign Reading Time Taken Comments Blood Pressure 130/78 04/22/2017 9:29 AM EST Pulse 72 04/22/2017 9:29 AM EST Temperature 36.6 ??C (97.8 ??F) 04/22/2017 9:29 AM ES T Respiratory Rate 14 04/22/2017 9:29 AM EST Oxygen Saturation - - Inhaled Oxygen Concentration - - Weight 120 kg (265 lb) 04/22/2017 9:29 AM EST Height 175.3 cm (5' 9 ) 04/22/2017 9:29 AM EST Body Mass Index 39.13 04/22/2017 9:29 AM EST Plan of Treatment Not on file Procedures * Due to [place] state law, this organization might not be sharing negative HIV tests. Procedure Name Priority Date/Time Associated Diagnosis Comments XR KNEE ORTHO - RT (DX: KNEE PAIN *NO INJURY*)(AGE>=35, CAN WEIGHT-BEAR) Routine 11/13/2019 1:26 PM EDT Right knee pain, unspecified chronicity BASIC METABOLIC PANEL Routine 05/07/2017 6:05 AM EST CBC W/O DIFFERENTIAL Routine 05/07/2017 6:05 AM EST KNEE UNILATERAL 1 OR 2 VIEWS Routine 05/06/2017 3:31 PM EST UNSPECIFIED MAJOR PROCEDURE 05/06/2017 BLOOD TYPE AND ANTIBODY SCREEN Routine 05/02/2017 3:20 PM EST MRSA CULTURE SCREEN, NASAL ONLY Routine 04/22/2017 12:22 PM EST Pre-operative examination Primary osteoarthritis of right knee Sleep apnea, unspecified type Increased frequency of urination EKG-TO BE READ & BILLED BY ADULT OR PEDIATRIC CARDIOLOGY Routine 04/22/2017 10:16 AM EST Primary osteoarthritis of right knee Sleep apnea, unspecified type Increased frequency of urination CULTURE, URINE, ROUTINE Routine 04/22/19 18 9:54 AM EST Pre-operative examination Primary osteoarthritis [...] apnea, unspecified type Increased frequency of urination KNEE 3 VW MIN W/OBLIQUES Routine 017 5:24 PM EST XRAY KNEE AP LAT & OBLQ MIN 3 VW - RIGHT Routine 09/02/2015 11:21 AM EDT XRAY HIPS WITH PA PELVIS- BILAT FC Routine 11/05/2014 10:53 AM EDT Bilateral hip pain PELVIS 1 OR 2 VIEWS Routine 07/29/2014 3 :34 PM EDT HIP UNILATERAL 2 VIEWS - LEFT Routine 07/29/2014 3:34 PM EDT HIP UNILATERAL 2 VIEW - RIGH Routine 03/24/2014 4:40 PM EST PELVIS 1 OR 2 VIEWS Routine 03/24/2014 4 :39 PM EST HIP UNILATERAL 2 VIEW - RIGH Routine 04/27/2013 4:11 PM EST PELVIS 1 OR 2 VIEWS Routine 04/27/2013 4:11 PM EST PELVIS 1 OR 2 VIEWS Routine 12/18/2012 1 2:50 PM EDT HIP UNILATERAL 2 VIEW - RIGH Routine 12/18/2012 12:50 PM EDT UNSPECIFIED DIAGNOSTIC PROCE 12/08/2012 UNSPECIFIED DIAGNOSTIC PROCE 12/01/2012 UNSPECIFIED DIAGNOSTIC PROCE 12/01/2012 UNSPECIFIED DIAGNOSTIC PROCE 12/01/2012 UNSPECIFIED DIAGNOSTIC PROCE 11/24/2012 BASIC METABOLIC PANEL Routine 11/21/2012 5:40 AM EDT CBC W/O DIFFERENTIAL Routine 11/21/2012 5:40 AM EDT BASIC METABOLIC PANEL Routine 11/20/2012 6:15 AM EDT CBC W/O DIFFERENTIAL Routine 11/20/2012 6:15 AM EDT PELVIS 1 OR 2 VIEWS Routine 11/19/2012 4 :51 PM EDT HIP UNILATERAL 2 VIEW - RIGHT Routine 11/19/2012 4:50 PM EDT BLOOD TYPE AND ANTIBODY SCREEN Routine 11/19/2012 10:40 AM EDT UNSPECIFIED MAJOR PROCEDURE 11/19/2012 BLOOD TYPE AND ANTIBODY SCREEN Routine 11/14/2012 12:45 PM EDT CULTURE, URINE, ROUTINE Routine 10/28/19 13 11:27 AM EDT Pre-operative examination Osteoarthritis of hip Sleep apnea Deep vein thrombosis Gastroesophageal reflux disease Seizures Urinary frequency Obesity MRSA CULTURE SCREEN, NASAL ONLY Routine 10/27/2012 11:27 AM EDT Pre-operative examination Osteoarthritis of hip Sleep apnea Deep vein thrombosis Gastroesophageal reflux disease Seizures Urinary frequency Obesity CBC INCLUDES DIFFERENTIAL AND PLATELET COUNT Routine 10/27/2012 11:27 AM EDT Pre-operative examination Osteoarthritis of hip Sleep apnea Deep vein thrombosis Gastroesophageal reflux disease Seizures Urinary frequency Obesity BASIC METABOLIC PANEL WITH (GFR) Routine 10/27/2012 11:27 AM EDT Pre-operative examination Osteoarthritis of hip Sleep apnea Deep vein thrombosis Gastroesophageal reflux disease Seizures Urinary frequency Obesity EKG-TO BE READ & BILLED BY ADULT OR PEDIATRIC CARDIOLOGY Routine 10/27/2012 10:36 AM EDT Pre-operative examination Osteoarthritis of hip Sleep apnea Deep vein thrombosis Gastroesophageal reflux disease Seizures Urinary frequency Obesity HIP UNILAT 2 VIEWS Routine 09/05/2012 12 :25 PM EDT PELVIS 1 OR 2 VIEWS Routine 09/05/2012 1 2:23 PM EDT HIP UNILATERAL 2 VIEWS - LEFT Routine 07/05/2010 9:30 AM EDT PELVIS 1 OR 2 VIEWS Routine 07/04/2010 3 :39 PM EDT PELVIS 1 OR 2 VIEWS Routine 07/26/2009 3 :14 PM EDT HIP UNILATERAL 2 VIEWS - LEFT Routine 07/26/2009 3:14 PM EDT PROTHROMBIN TIME Routine 07/02/2009 10:1 8 AM EDT BASIC METABOLIC PANEL Routine 07/02/2009 10:18 AM EDT CBC 5 PART DIFF Routine 07/02/2009 10:18 AM EDT BASIC METABOLIC PANEL Routine 07/01/2009 6:41 AM EDT PROTHROMBIN TIME Routine 07/01/2009 6:41 AM EDT CBC 5 PART DIFF Routine 07/01/2009 6:41 AM EDT BASIC METABOLIC PANEL Routine 06/30/2009 3:48 PM EDT CBC 5 PART DIFF Routine 06/30/2009 3:48 PM EDT PROTHROMBIN TIME Routine 06/30/2009 5:15 AM EDT PELVIS 1 OR 2 VIEWS Routine 06/29/2009 8 :55 AM EDT HIP UNILATERAL 2 VIEW - LEFT Routine 06/29/2009 8:55 AM EDT PROTHROMBIN TIME Routine 06/29/2009 6:05 AM EDT BASIC METABOLIC PANEL Routine 06/29/2009 6:05 AM EDT CBC 5 PART DIFF Routine 06/29/2009 6:05 AM EDT PROTHROMBIN TIME Routine 06/28/2009 10:5 5 AM EDT UNSPECIFIED MAJOR PROCEDURE 06/28/2009 12:00 AM EDT ANTIBODY SCREEN Routine 06/23/2009 10:00 AM EST BLOOD TYPE (ABO&RH) Routine 06/23/2009 1 0:00 AM EST ELECTROCARDIOGRAM Routine 06/08/2009 9:5 2 AM EST URINALYSIS, COMPLETE (DIP & MICRO) Routine 06/08/2009 Osteoarthritis of hip Urinary frequency CULTURE, URINE Routine 06/08/2009 Osteoarthritis of hip Urinary frequency MRSA SCREEN, ANY SOURCE Routine 06/08/2009 Osteoarthritis of hip Urinary frequency CBC 5 PART DIFF Routine 06/08/2009 Osteoarthritis of hip Urinary frequency BASIC METABOLIC PANEL W/GLOMERULAR FILTRATION RATE (EGFR) Routine 06/08/2009 Osteoarthritis of hip Urinary frequency XRAY HIPS BILATERAL MIN 2 VIEWS HIP AND AP PELVIS Routine 05/06/2009 11:26 AM EST KNEE (2 VWS) LT Routine 04/23/2008 12:00 PM EST KNEE (2 VWS) RT Routine 04/23/2008 11:59 AM EST PELVIS 1 OR 2 VIEWS Routine 04/23/2008 1 1:55 AM EST HIP UNILATERAL 2 VIEW - RIGH Routine 04/23/2008 11:55 AM EST HIP UNILATERAL 2 VIEWS - LEFT Routine 04/23/2008 11:55 AM EST Results * Due to [place] state law, this organization might not be [...] left knee. Additional incidental findings as detailed. us Suresh Velazquez MD IMG XRAY NO CONTRAST ORDERABLE S Edited * (ABNORMAL) CBC W/O DIFFERENTIAL (05/07/2017 6:05 AM EST) Only the most recent of3 resultswithin the time period is included. WHITE BLOOD COUNT 12.8(H) 3.9 - 11.0 x1000/uL [facility] RBC 4.38 4.30 - 5.80 mil/ul [facility] Hemoglobin 12.1(L) 12.5 - 17.0 g/dL [facility] HCT (HEMATOCRIT) 36.8 36.0 - 50.0 % [facility] MCV 84 80 - 100 fL [facility] MCH 28 27 - [address] [facility] MCHC 33 31 - 36 g/dL [facility] RDW 16.0(H) 11.4 - 14.4 % [facility] PLATELETS 201 150 - 450 x1000/uL [facility] 05/07/2017 6:05 AM EST 05/07/2017 6:05 AM EST us Suresh Velazquez MD LABORATORY Final Result [facility] [address] [place] [address] * (ABNORMAL) BASIC METABOLIC PANEL (05/07/2017 6:05 AM EST) Only the most recent of7 resultswithin the time period is included. Glucose 94 65 - 99 mg/dL [facility] BUN 11 5 - 26 mg/dL [facility] CREATININE 0.76 0.5 - 1.5 mg/dL [facility] BUN/Creatinine Ratio 14 8 - 27 [facility] GLOM FILT RATE, EST 106.4 >59 mL/min [facility] IF -LAURA N 123.3 >59 mL/min [facility] SODIUM 143 134 - 144 mEq/L [facility] POTASSIUM 3.9 3.6 - 5.6 mEq/L [facility] CHLORIDE 107 96 - 109 mEq/L [facility] CARBON DIOXIDE 29 20 - 32 mEq/L [facility] ANION GAP 7.0(L) 8 - 15 [facility] CALCIUM 8.4 8.3 - 10.0 mg/dL [facility] 05/07/2017 6:05 AM EST 05/07/2017 6:05 AM EST us Suresh Velazquez MD LABORATORY Final Result [facility] [address] [place] [id number] * KNEE UNILATERAL 1 OR 2 VIEWS (05/06/2017 3:31 PM EST) RADIOLOGY REPORT [facility] Department of Radiology [address] [place] [address], [address] Name: WES OLIVO : 67 Date of Service: 05/06/17 1052 Acct Number: [id number] Order Number: ??[id number] ?Location: [facility] Report Number: [id number] ?Service: [facility]/ Requesting Physician: Suresh Velazquez [place] Category: RADIOLOGY ??[facility] Exam: KNEE 1 OR 2 VIEWS ?? Right Signs/Symptoms: S/P TOTAL KNEE ARTHROPLASTY Report Status: ---Signed--- KNEE, 2 VIEW REASON FOR EXAM: ??Total knee arthroplasty. TECHNIQUE: 2 views of the right knee are submitted. COMPARISON: Right knee series of March 21, 2017 FINDINGS: ?? Status post right total knee arthroplasty. No evidence of hardware failure. Near-anatomic alignment. Residual soft tissue swelling and subcutaneous air. No acute bony injury. IMPRESSION: Status post right knee arthroplasty with expected postsurgical changes. No evidence of hardware failure. Date/Time of Dictation: 05/06/17 1634 Biomedical Field Service Engineer (if applicable): Approved By Attending Radiologist: Deacon Hernandez 05/06/17 1634 [facility] Department of Radiology [address] [place] [address], [address] ? [phone] ? [facility] Anatomical Region Laterality Modality Other 05/06/2017 3:31 PM EST Narrative 05/06/2017 4:34 PM EST Reason for Study/History: Department of Radiology TEST(S) PROCESSED BY [facility] XRAY Suresh Velazquez MD IMAGING-[facility] Final Result * UNSPECIFIED MAJOR PROCEDURE (05/06/2017) Narrative Procedure Note Suresh Velazquez MD - 05/06/2017 10:19 AM EST OPERATIVE REPORT DATE OF OPERATION: 05/06/2017 ATTENDING SURGEON: Dr. Suresh Velazquez. PREOPERATIVE DIAGNOSIS: Degenerative joint disease, right knee. POSTOPERATIVE DIAGNOSIS: Degenerative joint disease, right knee. PROCEDURE PERFORMED: Right total knee arthroplasty. TOURNIQUET TIME: 47 minutes. CONSULTING PROPERTY MANAGER: Cory Kaiser, advanced practitioner certified. IMPLANTS USED: Size 4 asymmetric Hi-Flex stabilized femoral component, size 4F3T Optetrak fit tray, 25 x 14 tibial extension, a 9 mm size 4 Hi-Flex stabilized polyethylene insert and a 35 mm domed 3-peg all-polyethylene patella. INDICATIONS: The patient has not responded to conservative care.X-rays demonstrate significant degenerative arthritis with joint space loss, sclerosis and osteophytosis. The patient now presents for definitive total knee arthroplasty. PROCEDURE: The patient was brought to the operating suite and wasplaced supine on the operating table, and after anesthetic was introduced, the right knee was prepped and draped in standard sterile fashion. An incision was made from 1 cm above the superior pole of the patella to 2 cm below the joint line. Dissection was continued through the subcutaneous tissue and prepatellar bursa. A medial mid vastus arthrotomy was undertaken. Bone spurs, ligaments and menisci were excised, and an extramedullary jig was applied to the tibia. Varus, valgus, flexion and extension, rotation and height were assessed, the block was secured, and the proximal tibia cut was undertaken. A size 1 tibial provisional tray with an outrigger jennifer was then applied toconfirm proper sagittal and coronal resection planes. Attention was directed now to the femur. A drill was used to sound the canal, and this was then expanded anteriorly and medially with arongeur. A fluted jennifer, femoral finder and distal cutting jig with a predetermined femoral bushing angle were applied to the distal femur. A distalfemoral resection was undertaken. An extension block was then placed to calibrate the extension space and assure a rectangular space had been achieved. The ligament balancing device was then applied. The AP position, the rotational position and the size of the femoral component were now determined. Drill holes were passed through the guide, and the final finishing block was applied and cuts made. A notch block was then placed and the notch cuts made. The old LBS device was used to distract the femur from the tibia to allow cleaning of the posterior recess ofall bony and soft tissue debris. Appropriate provisional femoral component, tibial component and tibial insert were applied, confirming propertibial femoral alignment, proper range of motion particularly with regards to full extension, and balancing of the medial and lateral compartments and the flexion extension spaces was confirmed. Proper centralization ofthe extensor mechanism was also assured. The rotational position of the tibia as it related to the femur was marked with cautery. The provisional components were removed, and a freehand technique was usedto resect the proper amount of patella bone. A patellar template was then applied allowing for slight medialization of the lug holes, and the lug holes were drilled, and these were then undercut with a baljit. A patella protector was applied, and the knee was hyperflexed, and the provisional tibial tray was secured. A bushing placed, a drill passed and a second bushing placed and a punch passed. Drill holes were made in the sclerotic surfaces, cement was mixed on a side table, and copious antibiotic irrigation was undertaken. Cement was then applied in a low viscous state to all resected surfaces, and digital intrusion was achieved. Cement was applied to the back side of the implants. The tibial component was then impacted into place. The femoral componentwas then impacted into place, and the patella button was applied along with the provisional tibial insert. The knee was held in full extension with axial pressure until polymerization was complete. The knee was then brought through a range of motion, and the medial and lateral compartments were shown to be well balanced, the flexion/extension space was well balanced, and the extensor mechanism well centralized. The patient did achieve full extension, and alignment was appropriate. The provisional component was removed, and the final insert was applied and impacted into a clean dry tray. The tourniquet was released, and hemostasis was achieved with electrocautery. Copious antibiotic irrigation was then undertaken, and closure was begun. With the knee flexed 70 degrees, the vastus splitand medial capsule were closed with #1 Dexon in a running fashion. The subcutaneous tissue was closed with 2-0 Vicryl, and the skin was closed with a running Monocryl stitch. Dermabond was applied followed by DSD and tape. The patient was transferred to the stretcher and transported to the recovery room in stable condition. The patient tolerated the procedure well. There were no intraoperative or perioperative complications. Electronically AuthenticatedBy: Suresh Velazquez MD 05/09/201702:03 P Suresh Velazquez MD es TD: 10:04 A TT: 10:19 A Doc #: [id number] cc: Suresh Velazquez MD Suresh Velazquez MD PROCEDURES Final Result * BLOOD TYPE AND ANTIBODY SCREEN (05/02/2017 3:20 PM EST) Only the most recent of3 resultswithin the time period is included. BLOOD GROUP ABO O [facility] RH-(D) Positive [facility] ANTIBODY SCREEN Negative Negative [facility] 05/02/2017 3:20 PM EST 05/02/2017 3:20 PM EST Suresh Velazquez MD LABORATORY Final Result Performing Organization Address City/State/[facility] de Phone Number [facility] [address] [place] [id number] * MRSA CULTURE SCREEN, NASAL ONLY (04/22/2017 12:22 PM EST) Only the most recent of2 resultswithin the time period is included. Methicillin Resistant Staphylococcus Aureus Screen SEE NOTE [facility] Comment: ??MRSA CULTURE SCREEN ??MICRO NUMBER: ?[id number] ??TEST STATUS: ? FINAL ??SPECIMEN SOURCE: ?? NOT GIVEN ??SPECIMEN QUALITY: ??ADEQUATE ??RESULT: ?No methicillin resistant Staphylococcus aureus ? (MRSA) isolated. 04/22/2017 12:2 2 PM EST 04/22/2017 5:52 PM EST Narrative Resulting Agency Comment [id number] Lexie Rust NP LABORATORY Final Result Performing Organization Address [facility] de Phone Number [facility] [address] [place] [address] * EKG-TO BE READ AND BILLED BY CARDIOLOGY (04/22/2017 10:16 AM EST) Only the most recent of2 resultswithin the time period is included. VENTRICULAR RATE 77 BPM MUS E EKG [...] Normal ECG When compared with ECG of 27-OCT-2012 10:36, No significant change was found [facility] E[facility] SYSTEM 04/22/2017 10:1 6 AM EST 04/22/2017 10:11 PM EST Lexie Rust NP CARDIOVASCULAR-WITH INBSKT R TG Final Result Performing Organization Address [facility] de Phone Number [facility] E[facility] SYSTEM * CULTURE, URINE, ROUTINE (04/22/2017 9:54 AM EST) Only the most recent of2 resultswithin the time period is included. Bacteria culture (Urine) SEE NOTE [facility] Comment: ??CULTURE, URINE, ROUTINE ??MICRO NUMBER: ?[id number] ??TEST STATUS: ? FINAL ??SPECIMEN SOURCE: ?? NOT GIVEN ??SPECIMEN QUALITY: ??ADEQUATE ??RESULT: ?Single organism less than 10,000 CFU/mL isolated. ? These organisms, commonly found on external and ? internal genitalia, are considered colonizers. ? No further testing performed. 04/22/2017 9:54 AM EST 04/22/2017 2:49 PM EST Narrative Resulting Agency Comment [id number] Lexie Rust APPEALS REPRESENTATIVE LABORATORY Final Result Performing Organization Address [facility] de Phone Number [facility] [address] [place] [address] * PROTHROMBIN TIME (PT) (INR), BLOOD (04/22/2017 9:54 AM EST) Pathologist [facility] INR 1.0 [facility] Comment: Reference Range ? 0.9-1.1 Moderate-intensity Warfarin Therapy 2.0-3.0 Higher-intensity Warfarin Therapy ?? 3.0-4.0 PT 10.3 9.0 - 11.5 sec [facility] Comment: For more information on this test, go to: http://education.[email or web address] [email or web address]/faq/[email or web address] 04/22/2017 9:54 AM EST 04/22/2017 2:49 PM EST Narrative Resulting Agency Comment [id number] Lexie Rust NP LAB SAME DAY RESULT Final Re sult Performing Organization Address [facility] Phone Number [facility] [address] [place] [address] * (ABNORMAL) CBC INCLUDES DIFFERENTIAL AND PLATELET COUNT (04/22/2017 9:54 AM EST) Only the most recent of2 resultswithin the time period is included. Pathologist [facility] WBC 11.1(H) 3.8 - 10.8 Thousand/u L [...] 2:49 PM EST Narrative Resulting Agency Comment [id number] us Lexie Rust APPEALS REPRESENTATIVE LAB SAME DAY RESULT Final Re sult [facility] [address] [place] [address] * (ABNORMAL) BASIC METABOLIC PANEL WITH (GFR) (04/22/2017 9:54 AM EST) Only the most recent of2 resultswithin the time period is included. Glucose 79 65 - 99 mg/dL [facility] Comment:Fasting reference in terval Urea Nitrogen Blood (BUN) 6(L) 7 - 25 mg/dL [facility] Creatinine 0.88 0.70 - 1.33 mg/dL [facility] Comment: For patients >49 years of age, the reference limit for Creatinine is approximately 13% higher for people identified as -Surinamese. GFR 100 > OR = 60 mL/min/1. [...] needs for GFR calculation. Resulting Agency Comment [id number] us Lexie Rust NP LABORATORY Final Result [facility] [address] [place] [address] * KNEE 3 VW MIN W/OBLIQUES (03/21/2017 5:24 PM EST) RADIOLOGY REPORT [facility] Department of Radiology [address] [place] [address], [address] Name: WES OLIVO : 67 Date of Service: 03/21/17 144 Acct Number: [id number] Order Number: ??[id number] ?Location: [facility] Report Number: [id number] ?Service: REG REF/ Requesting Physician: Suresh Velazquez ([facility] Category: ORTHOPEDIC RADIOLOGY ??[facility] Exam: KNEE 3 VW MIN ?? Right Signs/Symptoms: RIGHT KNEE PAIN Report Status: ---Signed--- EXAM: Right knee, 3 views HISTORY: Pain. COMPARISON: 09/02/2015 FINDINGS: Severe narrowing of the lateral femorotibial joint space. Mild narrowing of the lateral patellofemoral joint space. Surface and peripheral osteophytes are present of the femoral condyles and tibial plateau as well as the articular surface of the patella. No acute fracture or dislocation. There is a moderate to large effusion. IMPRESSION: Severe osteoarthritis, unchanged. Moderate to large effusion. Date/Time of Dictation: 03/21/171827 Biomedical Field Service Engineer (if applicable): Approved By Attending Radiologist: Doni Pedro 03/21/171827 [facility] Department of Radiology [address] [place] [address], [address] ? [phone] ? [facility] Anatomical Region Laterality Modality Other 03/21/2017 5:24 PM EST Narrative 03/21/2017 6:28 PM EST Reason for Study/History: Department of Radiology TEST(S) PROCESSED BY [facility] XRAY us Suresh Velazquez MD IMAGING-[facility] Final Result * XRAY KNEE AP LAT & OBLQ MIN 3 VW - RIGHT (09/02/2015 11:21 AM EDT) RADIOLOGY REPORT [facility] Department of Radiology [address] [place] [address], [address] Name: WES OLIVO : 67 Date of Service: 09/02/159[address] Acct Number: [id number] Order Number: ??[id number] ?Location: [facility] Report Number: [id number] ?Service: REG REF/ Requesting Physician: Suresh Velazquez ([facility] Category: ORTHOPEDIC RADIOLOGY ??[facility] Exam: KNEE 3 VW MIN ?? Right Signs/Symptoms: PAIN Report Status: ---Signed--- Procedures: KNEE 3 VW MIN RIGHT History:Patient is a Male ??, 49 years of age, with the following information provided: PAIN. Comparison:April 23, 2008 report only: Early osteoarthritis predominantly lateral compartment reported Findings: Osteopenia. Moderate to severe osteoarthritis lateral are evident. No effusion. Minor degenerative changes about the patellofemoral joint. Otherwise unremarkable. IMPRESSION: Progression of lateral compartment osteoarthritis. Date/Time of Dictation: 09/02/15 1125 Biomedical Field Service Engineer (if applicable): Approved By Attending Radiologist: Tobi Gray 09/02/15 1125 [facility] Department of Radiology [address] [place] [address], [address] ? [phone] ? [facility] Anatomical Region Laterality Modality Other 09/02/2015 11:2 1 AM EDT Narrative 09/02/2015 11:26 AM EDT Reason for Study/History: Department of Radiology TEST(S) PROCESSED BY [facility] XRAY Suresh Velazquez MD IMAGING-[facility] Final Result * XRAY HIPS WITH PA PELVIS- BILAT FC (11/05/2014 10:53 AM EDT) Anatomical Region Laterality Modality LOWER EXTREMITY Radiographic Nova ging 11/08/2014 4:18 PM EDT Narrative 11/08/2014 4:18 PM EDT This study was dictated by Marty Pereira MD Requesting Provider: STUART VELEZ Procedure:XRAY HIPS WITH PA PELVIS- BILAT FC Reason for Study:bilateral hip pain COMPARISON: 05/06/2009 FINDINGS: There are bilateral metallic hip prostheses. ?? On the RIGHT, there is no fracture or dislocation identified. No loosening of the prosthesis is noted. ??There is some spurring of the acetabulum laterally. On the LEFT, alignment of the prosthesis appears grossly unremarkable. ??There is moderate heterotopic bone along the acetabular margin. There is also prominent degenerative changes seen in the visualized portion of the lower lumbar spine. ??Bones appear osteopenic. Impression: Degenerative changes. ??Bilateral hip prostheses. Procedure Note Marty Pereira MD - 11/08/2014 This study was dictated by Marty Pereira MD Requesting Provider: STUART VELEZ Procedure:XRAY HIPS WITH PA PELVIS- BILAT FC Reason for Study:bilateral hip pain COMPARISON: 05/06/2009 FINDINGS: There are bilateral metallic hip prostheses. On the RIGHT, there is no fracture or dislocation identified. No loosening of the prosthesis is noted. There is some spurring of the acetabulum laterally. On the LEFT, alignment of the prosthesis appears grossly unremarkable. There is moderate heterotopic bone along the acetabular margin. There is also prominent degenerative changes seen in the visualized portion of the lower lumbar spine. Bones appear osteopenic. Impression: Degenerative changes. Bilateral hip prostheses. Stuart Herrera APPEALS REPRESENTATIVE IMG XRAY NO CONTRAST ORDERAB LES Final Result * HIP UNILATERAL 2 VIEWS - LEFT (07/29/2014 3:34 PM EDT) Only the most recent of4 resultswithin the time period is included. RADIOLOGY REPORT [facility] Department of Radiology [address] [place] [address], [address] Name: WES OLIVO : 67 Date of Service: 07/29/14 1425 Acct Number: [id number] Order Number: ??[id number] ?Location: [facility] Report Number: [id number] ?Service: PRE REF/ Requesting Physician: Stuart Velez ([facility] Category: ORTHOPEDIC RADIOLOGY ??[facility] Exam: HIP UNILAT 2 VIEWS ?? Left Signs/Symptoms: THR Report Status: Signed Pelvis AP view Left hip, 2 views Comparison: March 24, 2014 Findings: Patient is status post remote right at the recent left total hip replacement. The prosthetic components are in anatomic alignment bilaterally. There is a bony fragment within the left hip joint space. No acute fractures. Sacroiliac joints are unremarkable. IMPRESSION: Status post recent left total hip replacement. Near-anatomic alignment. Interpreting Resident: Date/Time of Dictation: 07/29/14 1534 Approved Electronically By/Date: Alfonzo Peterson 07/29/14 1538 [facility] Department of Radiology [address] [place] [address], [address] ? [phone] ? [facility] Anatomical Region Laterality Modality Other 07/29/2014 3:34 PM EDT Narrative 07/29/2014 3:39 PM EDT Reason for Study/History: Department of Radiology TEST(S) PROCESSED BY [facility] XRAY us Unknown Provider [facility] IM[facility] Final Resul t * PELVIS 1 OR 2 VIEWS (07/29/2014 3:34 PM EDT) Only the most recent of8 resultswithin the time period is included. RADIOLOGY REPORT [facility] Department of Radiology [address] [place], [address] Name: WES OLIVO : 67 Date of Service: 07/29/14 1425 Acct Number: [id number] Order Number: ??[id number] ?Location: [facility] Report Number: [id number] ?Service: PRE REF/ Requesting Physician: Stuart Velez ([facility] Category: ORTHOPEDIC RADIOLOGY ??[facility] Exam: PELVIS 1 OR 2 VIEWS ?? Signs/Symptoms: L THR Report Status: Signed Pelvis AP view Left hip, 2 views Comparison: March 24, 2014 Findings: Patient is status post remote right at the recent left total hip replacement. The prosthetic components are in anatomic alignment bilaterally. There is a bony fragment within the left hip joint space. No acute fractures. Sacroiliac joints are unremarkable. IMPRESSION: Status post recent left total hip replacement. Near-anatomic alignment. Interpreting Resident: Date/Time of Dictation: 07/29/14 1534 Approved Electronically By/Date: Alfonzo Peterson 07/29/14 1538 [facility] Department of Radiology [address] [place] [address], [address] ? [phone] ? [facility] Anatomical Region Laterality Modality Other 07/29/2014 3:34 PM EDT Narrative 07/29/2014 3:39 PM EDT Reason for Study/History: Department of Radiology TEST(S) PROCESSED BY [facility] XRAY us Unknown Provider [facility] Final Resul t * HIP UNILATERAL [address] [facility] (03/24/2014 4:40 PM EST) Only the most recent of4 resultswithin the time period is included. RADIOLOGY REPORT [facility] Department of Radiology [address] [place], [address] Name: WES OLIVO : 67 Date of Service: 03/24/14 1003 Acct Number: [id number] Order Number: ??[id number] ?Location: [facility] Report Number: [id number] ?Service: REG REF/ Requesting Physician: Becca Du ([facility] Category: ORTHOPEDIC RADIOLOGY ??[facility] Exam: HIP UNILAT 2 VIEWS ?? Right Signs/Symptoms: S/P RT THR Report Status: Signed Study: Two views right hip Findings: There is a total right hip arthroplasty in stable alignment from 04/27/13. ?? There is a somewhat vertical alignment of the acetabular cup. ??Stable superior acetabular lucency. ??There is slight lucency along the distal femoral stem on the lateral view. ??The osseous structures otherwise intact. ??There are stable heterotopic ossification at the superolateral hip joint. ??Soft tissues are otherwise within normal limits. Impression: Total right hip arthroplasty and stable alignment, with slight lucency along the distal femoral stem seen on the lateral view. Interpreting Resident: Date/Time of Dictation: 03/24/14 1640 Approved Electronically By/Date: Michael Anders 03/24/14 1640 [facility] Department of Radiology [address] [place] [address], [address] ? [phone] ? [facility] Anatomical Region Laterality Modality Other 03/24/2014 4:40 PM EST Narrative 03/24/2014 4:40 PM EST Reason for Study/History: Department of Radiology TEST(S) PROCESSED BY [facility] XRAY Becca Du APPEALS REPRESENTATIVE [facility]AGING[facility] Final Result * UNSPECIFIED DIAGNOSTIC PROCE (12/08/2012) Only the most recent of5 resultswithin the time period is included. Narrative Transcriptions Suresh Velazquez MD - 12/24/2012 12:00 AM EDT Suresh Velazquez MD LABORATORY Final Result * PELVIS 1 OR 2 VIEWS (11/19/2012 4:51 PM EDT) Only the most recent of2 resultswithin the time period is included. RADIOLOGY REPORT [facility] Department of Radiology [address] [place] [address], [address] Name: WES OLIVO : 67 Date of Service: 11/19/12 1636 Acct Number: [id number] Order Number: ??[id number] ?Location: [facility] Report Number: [id number] ?Service: ADM IN/LEROY Requesting Physician: Suresh Velazquez ([facility] Category: RADIOLOGY ??[facility] Exam: PELVIS 1 OR 2 VIEWS ?? Signs/Symptoms: S/P THR Report Status: Signed AP pelvis, single view, 11/19/12 at 1600 hrs with comparison to 09/05/12. Left total hip replacement is in place, femoral components are not included nor is the superior aspect of the pelvis. ??Right total hip replacement has been performed, prosthetic components appear appropriate in position. ??No fracture or dislocation recognized. ??Air is seen around the right hip in the immediate postoperative state. Impression: Bilateral hip replacements as described. Interpreting Resident: Date/Time of Dictation: 11/19/12 1651 Approved Electronically By/Date: Tracey Lawson 11/19/12 165 [facility] Department of Radiology [address] [place] [address], [address] ? [phone] ? [facility] Anatomical Region Laterality Modality Other 11/19/2012 4:51 PM EDT Narrative 11/19/2012 4:52 PM EDT Reason for Study/History: Department of Radiology TEST(S) PROCESSED BY [facility] XRAY Suresh Velazquez MD IMAGING-[facility] Final Result * HIP UNILATERAL 2 VIEW - RIGHT (11/19/2012 4:50 PM EDT) RADIOLOGY REPORT [facility] Department of Radiology [address] [place] [address], [id number] Name: WES OLIVO : 67 Date of Service: 11/19/12 1637 Acct Number: [id number] Order Number: ??[id number] ?Location: [facility] Report Number: [id number] ?Service: ADM IN/LEROY Requesting Physician: Suresh Velazquez [place]: RADIOLOGY ??[facility] Exam: HIP 2 VIEWS UNILATERAL ?? Right Signs/Symptoms: S/P THR Report Status: Signed Right hip, two views, 11/19/12 at 1600 hrs. ??Comparison is to 09/05/12. There has been right total hip replacement. ??Prosthetic components appear appropriate in position. ??No fracture or dislocation recognized. ??There is limited evaluation of the bony structures. ??Soft tissue air seen in the immediate postoperative state. Impression: Right total hip replacement. Interpreting Resident: Date/Time of Dictation: 11/19/12 1650 Approved Electronically By/Date: Tracey Lawson 11/19/121650 [facility] Department of Radiology [address] [place] [address], [address] ? [phone] ? [facility] Anatomical Region Laterality Modality Other 11/19/2012 4:50 PM EDT Narrative 11/19/2012 4:51 PM EDT Reason for Study/History: Department of Radiology TEST(S) PROCESSED BY [facility] XRAY Suresh Velazquez MD IMAGING-[facility] Final Result * UNSPECIFIED MAJOR PROCEDURE (11/19/2012) Narrative Transcriptions Suresh Velazquez MD - 11/19/2012 12:00 AM EDT OPERATIVE REPORT DATE OF OPERATION: 11/19/2012 PREOPERATIVE DIAGNOSIS: Degenerative joint disease, right hip. POSTOPERATIVE DIAGNOSIS: Degenerative joint disease, right hip. PROCEDURE PERFORMED: Right total hip arthroplasty. IMPLANTS USED: Size 64 mm outer diameter 3-hole acetabular ceramic shell, 3 self-tapping screws, a 64/36 ceramic liner, a 36, -3.5 ceramic head, a size 19 tapered [place] cementless stem with extended neck offset. SURGEON: Suresh Velazquez MD CONSULTING PROPERTY MANAGER: Becca Du NP. INDICATIONS: The patient has not responded to appropriate conservative care. X-rays have demonstrated significant degenerative arthritis of the hip with joint space loss, sclerosis and osteophytosis. With continued hip pain and disability, the patient presents now for definitive hip arthroplasty. PROCEDURAL NOTE: The patient was brought to the operating suite, was placed supine on the operating table, and after an anesthetic was introduced the hip was prepped and draped in standard sterile fashion. The posterior approach was undertaken and dissection was continued through the subcutaneous tissue and through the gluteus fascia. The trochanteric bursa was incised and reflected posteriorly. The medius was mobilized and the interval between the minimus and piriformis was developed. A retractor was placed within this interval and a 2nd retractor was placed in the interval between the quadratus femoris and the inferior capsule. A hoh blade was then used to release the rotators and capsule off the posterior margin of the trochanter. The capsule and rotators were tagged with FiberWire stitches. Leg length assessment and soft tissue assessment were undertaken and the hip was dislocated. A femoral neck resection was performed. The greater trochanter, the center of the head, and the femoral saddle were used as intraoperative landmarks for height of femoral neck resection. Oncethe resection was complete, a cookie cutter was used to debride the superolateral neck. A canal finder was then passed, followed by a lateralizer. Reaming and broaching was subsequently undertaken and the broach was left in place. Attention was directed toward the acetabulum where the labrum wasexcised and the haversian fossa debrided. Bone spurs were removed with a rongeur. Reaming was begun with the smallest reamer initially directed transversely. Subsequent reaming was performed more anatomically and reaming was progressed to 2 mm increments. A final reamer was passed, targeted at 40-45 degrees of abduction and 25-30 degrees of flexion. Fixation was good and a provisional liner was placed, and a provisional head and neck were placed on the femoral broach. The provisional construct was reduced. Range of motion stability and leg length assessment were undertaken. Both leg length and stability were considered, with ultimate stability determining the final head and neck segment that were chosen. The provisional construct was dislocated. The provisional implants were removed and the final implantation undertaken. Copious antibiotic irrigation was undertaken. A drillwas passed through 2 of the acetabular holes and self-tapping screws were placed x2. The final acetabular liner was then impacted into a clean dry acetabular shell. The final femoral implant was impacted into the prepared envelope. The final head was placed onto a clean dry taperand impacted into place. The femoral head was then reduced into a clean acetabular component. Leg length stability and range of motion were checked one final time, were found to be acceptable. Antibiotic irrigation was undertaken one last time, and closure was begun. The capsule and rotators were reapplied to the greater trochanterthrough drill holes. The interval between the piriformis and minimus was run closed with 1 Dexon. The iliotibial band was run closed with 1 Dexon. The subcutaneous tissue was closed with 2-0 Vicryl and the skin with a running subcuticular Monocryl stitch. Dermabond was applied followedby DSD and tape. The patient was transferred to the stretcher and transported to the recovery room in stable condition. The patient tolerated the procedure well. There were no intraoperative or perioperative complications. Electronically Authenticated By: Suresh Velazquez MD 12/19/2012 12:49 Suresh Velazquez MD ES TD: 2:48 P TT: 2:59 P Doc #: [id number] cc: Suresh Velazquez MD Suresh Velazquez MD PROCEDURES Final Result * HIP UNILAT 2 VIEWS (09/05/2012 12:25 PM EDT) RADIOLOGY REPORT [facility] Department of Radiology [address] [place] [address], [address] Name: WES OLIVO : 67 Date of Service: 09/05/12 1056 Acct Number: [id number] Order Number: ??[id number] ?Location: [facility] Report Number: [id number] ?Service: REG REF/ Requesting Physician: Suresh Velazquez ([facility] Category: ORTHOPEDIC RADIOLOGY ??[facility] Exam: HIP UNILAT 2 VIEWS ?? Right Signs/Symptoms: HIP PAIN Report Status: Signed Right hip, two views. Comparison: 07/26/09, 07/04/10. Severe degenerative arthropathy of the right hip is seen with loss of superior joint space, hypertrophic changes of the lateral acetabular margin and medial femoral head margin. ??Subchondral geodes are seen. ??There is an impacted appearance of the head medially. ??This is unchanged. Impression: Stable interval examination. ??Severe degenerative arthropathy of the right hip with either degenerative hypertrophic changes medially and/or elements of previous impaction, stable. Interpreting Resident: Date/Time of Dictation: 09/05/12 1225 Approved Electronically By/Date: Vance Riggins 09/05/12 1226 [facility] Department of Radiology [address] [place] [address], [address] ? [phone] ? [facility] RAD Anatomical Region Laterality Modality Other 09/05/2012 12:2 5 PM EDT Narrative 09/05/2012 12:26 PM EDT Reason for Study/History: Department of Radiology TEST(S) PROCESSED BY [facility] XRAY Suresh Velazquez MD IMAGING-[facility] Final Result * (ABNORMAL) PROTHROMBIN TIME (07/02/2009 10:18 AM EDT) Only the most recent of5 resultswithin the time period is included. PT (PROTHROMBIN TIME) 14.2(H) 9.4 - 12.0 sec INR 1.5(L) 2.0 - 3.5 Comment: INR reference interval applies to patients on anticoagulant therapy. ??Suggested INR therapeutic range for oral anticoagulant therapy:(Stabilized anticoagulated patients) ?Routine Therapy: ? 2.0-3.0 ?Recurrent Myocardial Infarction or ?Mechanical Prosthetic Valves: ?2.5-3.5 07/02/2009 10:1 8 AM EDT 07/02/2009 10:18 AM EDT us Suresh Velazquez MD LABORATORY Final Result * (ABNORMAL) CBC 5 PART DIFF (07/02/2009 10:18 AM EDT) Only the most recent of4 resultswithin the time period is included. WHITE BLOOD COUNT 12.6(H) 3.9 - 11.0 x1000/uL RBC 4.23(L) 4.30 - 5.80 mil/ul Hemoglobin 10.7(L) 12.5 - 17.0 g/dL HCT (HEMATOCRIT) 32.9(L) 36.0 - 50.0 % MCV 78(L) 80 - 100 fL MCH 25(L) 27 - 33 pg MCHC 33 31 - 36 g/dL RDW 14.5(H) 11.4 - 14.4 % PLATELETS 322 150 - 450 x1000/uL MPV 11.5(H) 7.0 - 11.0 fL NEUTROPHILS 67 42 - 76 % LYMPHOCYTE % 17 14 - 46 % MONOCYTE % 13 4 - 13 % EOSINOPHIL % 2 0 - 7 % BASOPHIL % 1 0 - 3 % NEUTROPHILS (#) 8.4(H) 1.8 - 7.0 x1000/uL LYMPHOCYTES # 2.1 0.7 - 4.5 x1000/uL MONOCYTES # 1.6(H) 0.1 - 0.8 x1000/uL EOSINOPHILS # 0.3 0.0 - 0.4 x1000/uL BASOPHILS # 0.1 0.0 - 0.2 x1000/uL 07/02/2009 10:1 8 AM EDT 07/02/2009 10:18 AM EDT Suresh Velazquez MD LABORATORY Final Result * HIP UNILATERAL 2 VIEW - LEFT (06/29/2009 8:55 AM EDT) Anatomical Region Laterality Modality Other 06/29/2009 8:55 AM EDT Narrative 06/29/2009 8:53 AM EDT Reason for Study/History: TEST(S) PROCESSED BY [facility] XRAY Suresh Velazquez MD IMAGING-[facility] Final Result * UNSPECIFIED MAJOR PROCEDURE (06/28/2009 12:00 AM EDT) Narrative Transcriptions Suresh Velazquez MD - 06/28/2009 12:00 AM EDTOPERATIVE REPORT DATE OF OPERATION: 06/28/2009 SURGEON: Suresh Velazquez M.D. PREOPERATIVE DIAGNOSIS: Degenerative joint disease, left hip. POSTOPERATIVE DIAGNOSIS: Degenerative joint disease, left hip. PROCEDURE PERFORMED: Left total hip arthroplasty. COMPONENTS: A size 62 mm outer diameter 3 hole acetabular shell, 2 self-tapping screws, a 62 x 44 metal liner, 44 +12 cobalt chrome head,a size 8 [place] cementless stem with lateral neck. SURGEON: Suresh Velazquez MD. CONSULTING PROPERTY MANAGER: GHAZALA Gates. INDICATIONS: The patient has not responded to appropriate conservative care. X-rays have demonstrated significant degenerative arthritis ofthe hip with joint space loss, sclerosis and osteophytosis. With continuedhip pain and disability, the patient presents now for definitive hip arthroplasty. PROCEDURAL NOTE: The patient was brought to the operating suite, was placed supine on the operating table, and after an anesthetic was introduced the hip was prepped and draped in standard sterile fashion.The posterior approach was undertaken and dissection was continued throughthe subcutaneous tissue and through the gluteus fascia. The trochantericbursa was incised and reflected posteriorly. The medius was mobilized and the interval between the minimus and piriformis was developed. A retractorwas placed within this interval and a 2nd retractor was placed in theinterval between the quadratus femoris and the inferior capsule. A hoh bladewas then used to release the rotators and capsule off the posterior marginof the trochanter. The capsule and rotators were tagged with FiberWire stitches. Leg length assessment and soft tissue assessment wereundertaken and the hip was dislocated. A femoral neck resection was performed. The greater trochanter, the center of the head, and the femoral saddle were used as intraoperative landmarks for height of femoral neck resection.Once the resection was complete, a cookie cutter was used to debride the superolateral neck. A canal finder was then passed, followed by a lateralizer. Reaming and broaching was subsequently undertaken and the broach was left in place. Attention was directed toward the acetabulum where the labrum wasexcised and the haversian fossa debrided. Bone spurs were removed with arongeur. Reaming was begun with the smallest reamer initially directedtransversely. Subsequent reaming was performed more anatomically and reaming was progressed to 2 mm increments. A final reamer was passed, targeted at40-45 degrees of abduction and 25-30 degrees of flexion. Fixation was good yogi provisional liner was placed, and a provisional head and neck wereplaced on the femoral broach. The provisional construct was reduced. Range of motion stability and leg length assessment were undertaken. Both leglength and stability were considered, with ultimate stability determining the final head and neck segment that were chosen. The provisional constructwas dislocated. The provisional implants were removed and the final implantation undertaken. Copious antibiotic irrigation was undertaken.A drill was passed through 2 of the acetabular holes and self-tappingscrews were placed x2. The final acetabular liner was then impacted into aclean dry acetabular shell. The final femoral implant was impacted into the prepared envelope. The final head was placed onto a clean dry taper and impacted into place. The femoral head was then reduced into a clean acetabular component. Leg length stability and range of motion werechecked one final time, were found to be acceptable. Antibiotic irrigation was undertaken one last time, and closure was begun. The capsule and rotators were reapplied to the greater trochanterthrough drill holes. The interval between the piriformis and minimus was runclosed with 1 Dexon. The iliotibial band was run closed with 1 Dexon. The subcutaneous tissue was closed with 2-0 Vicryl and the skin with arunning subcuticular Monocryl stitch. Dermabond was applied followed by DSD and tape. The patient was transferred to the stretcher and transported tot recovery room in stable condition. The patient tolerated the procedure well. There were no intraoperative or perioperative complications. Of note, he had some slight lengthening of his leg for at the completionof the procedure. This was measured. He has contralateral significant hip disease and therefore equalization of the legs at this time wasprobably not our goal. His hip was very stable and it was just a few millimeters long. Electronically Authenticated By: Suresh Velazquez MD 07/06/2009 15:33 Suresh Velazquez MD MQ TD: 5:42 P TT: 7:50 P Doc #: [id number] cc: Suresh Velazquez MD Suresh Velazquez MD PROCEDURES Final Result * BLOOD TYPE (ABO&RH) (06/23/2009 10:00 AM EST) Pathologist [facility] BLOOD GROUP ABO O RH-(D) POSITIVE 06/23/2009 10:0 0 AM EST 06/23/2009 10:00 AM EST Suresh Velazquez MD LABORATORY Final Result * ANTIBODY SCREEN (06/23/2009 10:00 AM EST) Pathologist [facility] ANTIBODY SCREEN NEGATIVE 06/23/2009 10:0 0 AM EST 06/23/2009 10:00 AM EST Suresh Velazquez MD LABORATORY Final Result * EKG (06/08/2009 9:52 AM EST) Pathologist [facility] VENTRICULAR RATE 70 BPM ATRIAL RATE 70 BPM P-R INTERVAL 160 ms QRS DURATION 96 ms QT 366 ms QTC 395 ms P AXIS 27 degrees R AXIS 55 degrees T AXIS 31 degrees EKG INTERPRETATION Sinus rhythm with occasional Premature ventricular complexes Otherwise normal ECG No previous ECGs available MUSE IMAGE 06/08/2009 9:52 AM EST Narrative 06/08/2009 9:52 AM EST Ordered by Funmi RUST Unknown Provider CARDIOVASCULAR-NO INBASKET RTG Final Result * (ABNORMAL) BASIC METABOLIC PANEL W/GLOMERULAR FILTRATION RATE (EGFR) (06/08/2009) Pathologist [facility] CALCIUM 9.8 8.6 - 10.2 MG/DL [facility] BUN 8 7 - 25 MG/DL [facility] CREATININE 0.71(L) 0.78 - 1.34 MG/DL [facility] BUN/Creatinine Ratio 11 6 - 25 [facility] Glucose 86 65 - 99 MG/DL [facility] SODIUM 142 135 - 146 MMOL/L [facility] POTASSIUM 4.9 3.5 - 5.3 MMOL/L [facility] CHLORIDE 104 98 - 110 MMOL/L [facility] CARBON DIOXIDE 25 21 - 33 MMOL/L [facility] GFR > 60 60 AND ABOVE [facility] Comment:UNITS: ML/MIN/1.73 S Q METERS EGFR > 60 60 AND ABOVE [facility] Comment:UNITS: ML/MIN/1.73 S Q METERS 06/08/2009 06/08/2009 5:3 4 PM EST Narrative [facility] - 06/09/2009 2:30 AM EST Please note that this estimated GFR [...] with more precise needs for GFR calculation. Lexie Rust NP LABORATORY Final Result Performing Organization Address [facility] de Phone Number [facility] [address] [place] [address] * CULTURE, URINE (06/08/2009) Pathologist [facility] URINE CULTURE CLEAN VOID SEE TEXT [facility] Comment: SOURCE: URINE NO GROWTH 06/08/2009 06/08/2009 5:3 4 PM EST Lexie Rust NP LABORATORY Final Result Performing Organization Address [facility] de Phone Number [facility] [address] [place] [address] * MRSA SCREEN, ANY SOURCE (06/08/2009) Pathologist [facility] Result(s) SEE TEXT [facility] Comment: SOURCE: UNKNOWN NO METHICILLIN RESISTANT STAPHYLOCOCCUS AUREUS ISOLATED 06/08/2009 06/08/2009 5:3 4 PM EST Lexie Rust NP LABORATORY Final Result Performing Organization Address [facility] de Phone Number [facility] [address] [place] [address] * (ABNORMAL) CBC 5 PART DIFF (06/08/2009) WHITE BLOOD COUNT 9.0 3.8 - 10.8 THOUS/UL [facility] RBC 5.33 4.20 - 5.80 MIL/UL [facility] Hemoglobin 14.1 13.2 - 17.1 G/DL [facility] HCT (HEMATOCRIT) 43.7 38.5 - 50.0 % [facility] MCV 81.9 80.0 - 100.0 FL [facility] MCH 26.5(L) 27.0 - 33.0 PG [facility] MCHC 32.3 32.0 - 36.0 G/DL [facility] BAND % 0 0 - 5 % [facility] NEUTROPHIL % 66 48 - 75 % [facility] LYMPHOCYTE % 24 17 - 40 % [facility] MONOCYTE % 7 0 - 14 % [facility] EOSINOPHIL % 2 0 - 5 % [facility] BASOPHIL % 1 0 - 3 % [facility] ATYPICAL LYMPHOCYTE % 0 0 - 5 % [facility] PLATELETS 256 140 - 400 THOUS/UL [facility] BANDS # 0 0 - 750 CELLS/MCL [facility] NEUTROPHILS # 5940 1500 - 7800 CELLS/MCL [facility] LYMPHOCYTES # 2160 850 - 3900 CELLS/MCL [facility] MONOCYTES # 630 200 - 950 CELLS/MCL [facility] EOSINOPHILS # 180 15 - 550 CELLS/MCL [facility] BASOPHILS # 90 0 - 200 CELLS/MCL [facility] ATYPICAL LYMPHOCYTES # 0 0 - 200 CELLS/MCL [facility] RDW 15.5(H) 11.0 - 15.0 % [facility] MPV 9.3 7.5 - 11.5 FL [facility] 06/08/2009 06/08/2009 5:3 4 PM EST us Lexie Rust APPEALS REPRESENTATIVE LAB SAME DAY RESULT Final Re sult Performing Organization Address City/State/[facility] Co de Phone Number [facility] [address] [place] [address] * URINALYSIS, COMPLETE (DIP & MICRO) (06/08/2009) COLOR (URINE) YELLOW YELLOW [facility] APPEARANCE (URINE) CLEAR CLEAR [facility] SPECIFIC GRAVITY 1.007 1.001 - 1.035 [facility] PH (URINE) 7.0 5.0 - 8.0 [facility] PROTEIN (URINE) NEG NEG [facility] GLUCOSE (URINE) NEG NEG [facility] Ketones (Urine) NEG NEG [facility] BILIRUBIN (URINE) NEG NEG [facility] BLOOD (URINE) NEG NEG [facility] WBC (URINE) NEG NEG [facility] NITRITE (URINE) NEG NEG [facility] WBC (URINE) 0 0-4/HPF [facility] RBC (Urine Sed) 0 0-3/HPF [facility] EPITHELIAL CELLS.SQUAMOUS (URINE SED) 0 0-5/HPF [facility] EPITHELIAL CELLS.TRANSITI ONAL (URINE SED) 0 0-5/HPF [facility] EPITHELIAL CELLS.RENAL (URINE SED) 0 0-3/HPF [facility] BACTERIA (URINE) NONE SEEN NONE SEEN [facility] 06/08/2009 06/08/2009 5:3 4 PM EST Lexie Rust APPEALS REPRESENTATIVE LAB SAME DAY RESULT Final Re sult [facility] [address] [place] [address] * XRAY HIPS BILATERAL MIN 2 VIEWS HIP AND AP PELVIS (05/06/2009 11:26 AM EST) RADIOLOGY REPORT Addendum Begins Correction to the technique: In addition, bilateral hips AP and frog-lateral projections were obtained. Addendum Ends AP pelvis Comparison: 04/23/2008 Findings: No interval change in severe osteoarthritis in bilateral hips. Severe joint space narrowing, subchondral sclerosis and osteophytosis. Flattening of the femoral heads. No obvious pelvic fracture. Osteophytosis is largest in the anteroinferior left femoral head. Impression: No interval change in severe bilateral hip osteoarthritis. Anatomical Region Laterality Modality Other 05/06/2009 11:2 6 AM EST Narrative 05/12/2009 1:53 PM EST Reason for Study/History: bilateral hip pain TEST(S) PROCESSED BY [facility] Suresh Velazquez MD GENERAL IMAGING- OTHER Edited * KNEE (2 VWS) LT (04/23/2008 12:00 PM EST) RADIOLOGY REPORT Right knee, two views. Findings: Upright AP and lateral views of the right knee show mild generalized osteopenia. ??Osteophytes are noted with decrease in the lateral tibiofemoral joint space. ??There is no evidence of a joint effusion. Impression: Early osteoarthritis predominantly in the lateral tibiofemoral joint compartment. Anatomical Region Laterality Modality Other 04/23/2008 12:0 0 PM EST Narrative 04/23/2008 12:01 PM EST Reason for Study/History: Findings: Upright AP and lateral views of the right knee show TEST(S) PROCESSED BY [facility] XRAY Suresh Velazquez MD IMAGING-[facility] Final Result * KNEE (2 VWS) RT (04/23/2008 11:59 AM EST) RADIOLOGY REPORT Left knee, two views. Findings: Weight-bearing AP and lateral views of the left knee are submitted. ??The AP view is oblique. ??The joint space appears maintained. ??There is generalized osteopenia. ??No significant osseous formation is seen. ??A small bony exostosis is seen extending distally from the medial proximal metadiaphysis of the tibia. ??A calcified density seen in the soft tissues along the media of the proximal tibia. ??There is no evidence of joint effusion. Impression: Osteopenia. ??Limited study. Anatomical Region Laterality Modality Other 04/23/2008 11:5 9 AM EST Narrative 04/23/2008 12:00 PM EST Reason for Study/History: Findings: Weight-bearing AP and lateral views of the left knee TEST(S) PROCESSED BY [facility] XRAY Suresh Velazquez MD [facility] Final Result Visit Diagnoses Diagnosis Start Date Osteoarthrosis, unspecified whether generalized or localized, unspecified site 05/06/2009 Preop examination Preoperative examination, unspecified 06/08/2009 Osteoarthritis of hip Osteoarthrosis, unspecified whether generalized or localized, pelvic region and thigh 06/08/2009 Urinary frequency 06/08/2009 Morbid obesity (HCC) Morbid obesity 06/08/2009 DVT (deep venous thrombosis) (HCC) Acute venous embolism and thrombosis of unspecified deep vessels of lower extremity 06/08/2009 GERD (gastroesophageal reflux disease) Esophageal reflux 06/08/2009 Sleep apnea Unspecified sleep apnea 06/08/2009 Pre-operative clearance Preoperative examination, unspecified 06/09/2009 Osteoarthrosis, unspecified whether generalized or localized, unspecified site 07/26/2009 DJD (degenerative joint disease) of hip Osteoarthrosis, unspecified whether generalized or localized, pelvic region and thigh 07/04/2010 Osteoarthritis of the pelvic region and thigh Osteoarthrosis, unspecified whether generalized or localized, pelvic region and thigh 09/05/2012 DJD (degenerative joint disease) of hip Osteoarthrosis, unspecified whether generalized or localized, pelvic region and thigh 09/19/2012 Pre-operative clearance Preoperative examination, unspecified 10/27/2012 Pre-operative examination Preoperative examination, unspecified 10/27/2012 Osteoarthritis of hip Osteoarthrosis, unspecified whether generalized or localized, pelvic region and thigh 10/27/2012 Sleep apnea Unspecified sleep apnea 10/27/2012 Deep vein thrombosis (HCC) Acute venous embolism and thrombosis of unspecified deep vessels of lower extremity 10/27/2012 Gastroesophageal reflux disease Esophageal reflux 10/27/2012 Seizures (HCC) Other convulsions 10/27/2012 Urinary frequency 10/27/2012 Obesity Obesity, unspecified 10/27/2012 Hip joint replacement by other means 12/08/2012 Osteoarthritis of the pelvic region and thigh Osteoarthrosis, unspecified whether generalized or localized, pelvic region and thigh 12/18/2012 Iliotibial band syndrome Other disorder of muscle, ligament, and fascia 04/27/2013 Sciatica 03/24/2014 Muscle strain of left gluteal region, initial encounter 07/29/2014 Bilateral hip pain Pain in joint, pelvic region and thigh 11/04/2014 Bilateral hip pain Pain in joint, pelvic region and thigh 11/05/2014 Muscle strain of gluteal region, unspecified laterality, initial encounter 11/05/2014 Osteoarthrosis involving lower leg 09/02/2015 Osteoarthrosis involving lower leg 04/19/2016 Primary osteoarthritis of right knee Primary localized osteoarthrosis, lower leg 11/15/2016 Primary osteoarthritis of right knee Primary localized osteoarthrosis, lower leg 03/21/2017 Pre-operative examination Preoperative examination, unspecified 04/22/2017 Primary osteoarthritis of right knee Primary localized osteoarthrosis, lower leg 04/22/2017 Sleep apnea, unspecified type 04/22/2017 Increased frequency of urination Urinary frequency 04/22/2017 Pre-operative examination Preoperative examination, unspecified 04/22/2017 Primary osteoarthritis of right knee Primary localized osteoarthrosis, lower leg 04/22/2017 Sleep apnea, unspecified type 04/22/2017 Increased frequency of urination Urinary frequency 04/22/2017 Gastroesophageal reflux disease 04/22/2017 Deep vein thrombosis (DVT) of proximal lower extremity, unspecified chronicity, unspecified laterality (HCC) 04/22/2017 Obesity, unspecified classification, unspecified obesity type, unspecified whether serious comorbidity present 04/22/2017 Iron deficiency anemia, unspecified iron deficiency anemia type 04/22/2017 Vitamin B 12 deficiency Other B-complex deficiencies 04/22/2017 Sleep apnea, unspecified type 04/23/2017 Acute pain of right knee 09/23/2019 Fall, initial encounter 09/23/2019 Right knee pain, unspecified chronicity 09/29/2019 Right knee pain, unspecified chronicity 11/13/2019 Status post total right knee replacement 11/13/2019 Care Teams Evp Operations Relationship Specialty Start Date End Date Paulo Schwarz [address] [place] [address] [place] [address] PCP - General 01/07/08
--- OUTSIDE RECORDS SUMMARY | 2024-07-21 08:10 | XMS_ITS | Clinical Summary ---
Author Organization [facility] Address [address] [place] [address] Care Team Providers Care Hse Specialist Name Role Phone Unavailable Primary Care Provider Unavailabl e Social History Tobacco Use Types Packs/Day Years Used Date Smoking Tobacco: Never Assessed Sex and Gender Information Value Date Recorded Sex Assigned at Not on file Legal Sex Male 5:24 AM EST Gender Identity Not on file Sexual Orientation Not on file Plan of Treatment Health Maintenance Due Date Last Done Comments DTaP,Tdap,and Td Vaccines (1 - Tdap) 1985 Hepatitis B Vaccines (1 of 3 - 19+ 3-dose series) 1985 Pneumococcal Vaccine: 50+ Ye ars (1 of 1 - PCV) 2016 Zoster Vaccines (1 of 2) 2016 COVID-19 Vaccine ( - 2023-2 5 season) 2023 Influenza Vaccine (#1) 2023 HIB Vaccines Aged Out No longer eligi ble based on patient's age to complete this topic HPV Vaccines Aged Out No longer eligi ble based on patient's age to complete this topic Hepatitis A Vaccines Aged Out No long er eligible based on patient's age to complete this topic IPV Vaccines Aged Out No longer eligi ble based on patient's age to complete this topic MMR Vaccines Aged Out No longer eligi ble based on patient's age to complete this topic Meningococcal ACWY Vaccine Aged Out N o longer eligible based on patient's age to complete this topic Meningococcal B Vaccine Aged Out No l onger eligible based on patient's age to complete this topic Pneumococcal Vaccine: Pediat rics (0 to 5 Years) and At-Risk Patients (6 to 64 Years) Aged Out No longer eligible b ased on patient's age to complete this topic RSV Immunization Patients Un isaías 20 months Aged Out No longer eligible b ased on patient's age to complete this topic Varicella Vaccines Aged Out No longer eligible based on patient's age to complete this topic
--- OUTSIDE RECORDS SUMMARY | 2024-07-21 08:11 | XMS_ITS | Encounter Summary ---
Author Organization [facility] Address [address] [place] [address] Care Team Providers Care Valet Runner Name Role Phone Paulo Schwarz Primary Care Provider [phone] Encounter Details Date Type Department Care Team ([facility] st Contact Info) Description 11/04/2014 Orders Only [facility] [address] [place] [id number] Stuart Herrera NP Social History Tobacco Use Types Packs/Day [...] of this encounter Results * Due to [place] state law, this organization might not be sharing negative HIV tests. * XRAY HIPS WITH PA PELVIS- BILAT FC (11/05/2014 10:53 AM EDT) Anatomical Region Laterality Modality LOWER EXTREMITY Radiographic [place] ging 11/08/2014 4:18 PM EDT Narrative 11/08/2014 4:18 PM EDT This study was dictated by Marty Pereira MD Requesting Provider: STUART WALDEN Procedure:XRAY HIPS WITH PA PELVIS- BILAT FC [...] by Marty Pereira MD Requesting Provider: STUART WALDEN Procedure:XRAY HIPS WITH PA PELVIS- BILAT FC [...] Degenerative changes. Bilateral hip prostheses. Stuart Herrera NP IMG XRAY NO CONTRAST ORDERAB LES Final Result documented in this encounter Visit Diagnoses Diagnosis Bilateral hip pain- Primary Pain in joint, pelvic region and thigh Bilateral hip pain Pain in joint, pelvic region and thigh documented in this encounter Care Teams Valet Runner Relationship Specialty Start Date End Date Paulo Schwarz [address] [place] [address] [address] [place], [place] [address] PCP - General 01/07/08 documented as of this encounter
--- OUTSIDE RECORDS SUMMARY | 2024-07-21 08:11 | XMS_ITS | Clinical Summary ---
Author Organization [facility] Address [address] [place] [address] Care Team Providers Care Disability Coordinator Name Role Phone Patient, Has No Pcp Or Ref Primary Care Provider Unavailable Allergies No known active allergies Medications * This document contains information received from the source organization and may not represent a complete record from that organization. baclofen (LIORESAL) 10 mg tablet Take 1 tablet (10 mg total) by mouth 2 times a day. 60 tablet 06/16/2024 11:56 AM EST 5 Active cloNIDine (CATAPRES) 0.1 mg tablet Take 1 tablet (0.1 mg total) by mouth 3 times a day as needed for anxiety. 90 tablet 06/16/2024 11:56 AM EST [address] (CYMBALTA) 20 mg capsule Take 1 capsule (20 mg total) by mouth once a day. 30 capsule 06/16/2024 11:56 AM EST 5 Active hydrOXYzine HCL (ATARAX) 25 mg tablet Take 2 tablets (50 mg total) by mouth every 6 hours as needed for anxiety. 240 tablet 06/16/2024 11:56 AM EST 5 Active omeprazole (PriLOSEC) 20 mg capsule Take 1 capsule (20 mg total) by mouth once a day. 30 capsule 06/16/2024 11:56 AM EST 5 Active pregabalin (LYRICA) 75 mg capsule Take 1 capsule (75 mg total) by mouth 3 times a day. 90 capsule 06/16/2024 11:56 AM EST 5 Active traZODone (DESYREL) 50 mg tablet Take 1 tablet (50 mg total) by mouth nightly as needed for sleep. 30 tablet 06/16/2024 11:56 AM EST Active albuterol (PROAIR HFA,VENTOLIN HFA) 90 mcg inhaler Inhale 2 puffs (180 mcg total) by mouth into the lungs every 6 hours as needed for wheezing or shortness of breath. Use with spacer. 8.5 g 06/16/2024 11:56 AM EST Active umeclidinium-vi lanteroL (Anoro Ellipta) 62.5-25 mcg/actuation blister with device Inhale 1 puff by mouth once a day. 60 each 06/16/2024 11:56 AM EST Active furosemide (LASIX) 40 mg tablet Take 1 tablet (40 mg total) by mouth daily as needed (leg swelling). 30 tablet 06/16/2024 11:56 AM EST Active cefadroxil (DURICEF) 500 mg capsule Take 2 capsules (1,000 mg total) by mouth 2 times a day for 11 days. 44 capsule 06/16/2024 11:56 AM EST 06/28/19 25 Active Problems Problem Noted Date Diagnosed Date Mild aortic stenosis 06/10/2024 Assessment & Plan (06/16/2024 12:16 PM EST): Echo on 06/08/24 showing normal biventricular function. Mild . Asymptomatic. Continue monitoring as an outpatient. As an outpatient will need at some point referral to cardiology. Assessment & Plan (06/15/2024 5:57 PM EST): Echo on 06/08/24 showing normal biventricular function. Mld . Continue monitoring as an outpatient. As an outpatient will need at some point referral to cardiology. Assessment & Plan (06/14/2024 2:17 PM EST): Echo on 06/08/24 showing normal biventricular function. Mld . Continue monitoring as an outpatient. As an outpatient will need at some point referral to cardiology. Assessment & Plan (06/12/2024 3:38 PM EST): Echo on 06/08/24 showing normal biventricular function. Mld . Continue monitoring as an outpatient. As an outpatient will need at some point referral to cardiology. Assessment & Plan (06/11/2024 5:17 PM EST): Echo on 06/08/24 showing normal biventricular function. Mld . Continue monitoring as an outpatient. As an outpatient will need at some point referral to cardiology. Assessment & Plan (06/10/2024 11:03 PM EST): Echo on 06/08/24 showing normal biventricular function. Mld . Continue monitoring as an outpatient. As an outpatient will need at some point referral to cardiology. Leg swelling 06/09/2024 Assessment & Plan (06/16/2024 12:16 PM EST): Patient recently admitted in early May for COPD exacerbation and hypoxia, brought in for complaining short of breath and bilateral lower extremity edema. Previous UA (04/18/2024) normal without proteinuria. ProBNP WNL. Hypoxia mid 80s, increased to 93% with 2 L nasal cannula, similar to his baseline COPD and ANA. On exam he does have BL LE edema, R>L with erythema of the RLE concerning for cellulitis. He is not wheezy on exam. Clinical presentation not consistent with a COPDe. Patient is s/p IV lasix 40 mg with some improvement in leg swelling. - discharge on lasix 40 mg po daily as needed for leg swelling. -Continue compression stockings Assessment & Plan (06/15/2024 5:57 PM EST): Patient recently admitted in early May for COPD exacerbation and hypoxia, brought in for complaining short of breath and bilateral lower extremity edema. Previous UA (04/18/2024) normal without proteinuria. ProBNP WNL. Hypoxia mid 80s, increased to 93% with 2 L nasal cannula, similar to his baseline COPD and ANA. On exam he does have BL LE edema, R>L with erythema of the RLE concerning for cellulitis. He is not wheezy on exam. Clinical presentation not consistent with a COPDe. Patient is s/p IV lasix 40 mg on 06/07. 06/08 and 06/09. -Monitor on pulse ox, goal sats 88-92% -Spot dose Lasix IV 40 Mg daily -Goal I/O -1-2 L/day -Continue compression stockings Assessment & Plan (06/14/2024 2:17 PM EST): Patient recently admitted in early May for COPD exacerbation and hypoxia, brought in for complaining short of breath and bilateral lower extremity edema. Previous UA (04/18/2024) normal without proteinuria. ProBNP WNL. Hypoxia mid 80s, increased to 93% with 2 L nasal cannula, similar to his baseline COPD and ANA. On exam he does have BL LE edema, R>L with erythema of the RLE concerning for cellulitis. He is not wheezy on exam. Clinical presentation not consistent with a COPDe. Patient is s/p IV lasix 40 mg on 06/07. 06/08 and 06/09. -Monitor on pulse ox, goal sats 88-92% -Spot dose Lasix IV 40 Mg daily -Goal I/O -1-2 L/day -Continue compression stockings Assessment & Plan (06/12/2024 3:38 PM EST): Patient recently admitted in early May for COPD exacerbation and hypoxia, brought in for complaining short of breath and bilateral lower extremity edema. Previous UA (04/18/2024) normal without proteinuria. ProBNP WNL. Hypoxia mid 80s, increased to 93% with 2 L nasal cannula, similar to his baseline COPD and ANA. On exam he does have BL LE edema, R>L with erythema of the RLE concerning for cellulitis. He is not wheezy on exam. Clinical presentation not consistent with a COPDe. Patient is s/p IV lasix 40 mg on 06/07. 06/08 and 06/09. -Monitor on pulse ox, goal sats 88-92% -Continue Lasix IV, dosed daily. Today 06/10 patient received 30 mg IV, as he diureses execevily with 40 mg IV on 06/09 (4L) -Goal I/O -1-2 L/day -Continue Duonebs q 6 hrs scheduled -Continue compression stockings Assessment & Plan (06/11/2024 5:17 PM EST): Patient recently admitted in early May for COPD exacerbation and hypoxia, brought in for complaining short of breath and bilateral lower extremity edema. Previous UA (04/18/2024) normal without proteinuria. ProBNP WNL. Hypoxia mid 80s, increased to 93% with 2 L nasal cannula, similar to his baseline COPD and ANA. On exam he does have BL LE edema, R>L with erythema of the RLE concerning for cellulitis. He is not wheezy on exam. Clinical presentation not consistent with a COPDe. Patient is s/p IV lasix 40 mg on 06/07. 06/08 and 06/09. -Monitor on pulse ox, goal sats 88-92% -Continue Lasix IV, dosed daily. Today 06/10 patient received 30 mg IV, as he diureses execevily with 40 mg IV on 06/09 (4L) -Goal I/O -1-2 L/day -Continue Duonebs q 6 hrs scheduled -Continue compression stockings Assessment & Plan (06/10/2024 11:03 PM EST): Patient recently admitted in early May for COPD exacerbation and hypoxia, brought in for complaining short of breath and bilateral lower extremity edema. Previous UA (04/18/2024) normal without proteinuria. ProBNP WNL. Hypoxia mid 80s, increased to 93% with 2 L nasal cannula, similar to his baseline COPD and ANA. On exam he does have BL LE edema, R>L with erythema of the RLE concerning for cellulitis. He is not wheezy on exam. Clinical presentation not consistent with a COPDe. Patient is s/p IV lasix 40 mg on 06/07. 06/08 and 06/09. -Monitor on pulse ox, goal sats 88-92% -Continue Lasix IV, dosed daily. Today 06/10 patient received 30 mg IV, as he diureses execevily with 40 mg IV on 06/09 (4L) -Goal I/O -1-2 L/day -Continue Duonebs q 6 hrs scheduled -Continue compression stockings Cellulitis 06/06/2024 Assessment & Plan (06/16/2024 12:16 PM EST): Pt's main chief complaint is RLE edema, erythema, and pain. SIRS negative. No febrile episode. BL LE duplexes negative for DVT's. He denies trauma to RLE. Clinical exam and history concerning for cellulitis. MRSA PCR negative. Patient got 4 days of cefazolin but there was no improvement in his erythema. Now switched back to IV cefazolin on 06/12/2024 to complete 10 to 14 days of therapy per ID recs. Anticipate possibly switching to oral antibiotics leg swelling is significantly much less -IV cefazolin 2 g every 8 hourly for 10 to 14 days as per ID; given improved, ID recommend OK to discharge on PO cefadroxil 1gm twice daily to complete the duration of therapy. Assessment & Plan (06/15/2024 5:57 PM EST): Pt's main chief complaint is RLE edema, erythema, and pain. SIRS negative. No febrile episode. BL LE duplexes negative for DVT's. He denies trauma to RLE. Clinical exam and history concerning for cellulitis. MRSA PCR negative. Patient got 4 days of cefazolin but there was no improvement in his erythema. Now switched back to IV cefazolin on 06/12/2024 to complete 10 to 14 days of therapy per ID recs. Anticipate possibly switching to oral antibiotics leg swelling is significantly much less -Continue trending CBC as needed -Continue ice twice daily to RLE -IV cefazolin 2 g every 8 hourly for 10 to 14 days as per ID -Spot dose IV Lasix 40 Mg daily - Once the patient is ready for discharge can switch to PO cefadroxil 1gm twice daily to complete the duration of therapy. Assessment & Plan (06/14/2024 2:17 PM EST): Pt's main chief complaint is RLE edema, erythema, and pain. SIRS negative. No febrile episode. BL LE duplexes negative for DVT's. He denies trauma to RLE. Clinical exam and history concerning for cellulitis. MRSA PCR negative. Patient got 4 days of cefazolin but there was no improvement in his erythema. Now switched back to IV cefazolin on 06/12/2024 to complete 10 to 14 days of therapy per ID recs. Anticipate possibly switching to oral antibiotics leg swelling is significantly much less -Continue trending CBC as needed -Continue ice twice daily to RLE -IV cefazolin 2 g every 8 hourly for 10 to 14 days as per ID -Spot dose IV Lasix 40 Mg daily Assessment & Plan (06/12/2024 3:38 PM EST): Pt's main chief complaint is RLE edema, erythema, and pain. SIRS negative. No febrile episode. BL LE duplexes negative for DVT's. He denies trauma to RLE. Clinical exam and history concerning for cellulitis. MRSA PCR negative. Patient got 4 days of cefazolin but there was no improvement in his erythema. He was Switched to IV vancomycin. Monitor Vanco trough levels. -Continue trending CBC as needed -Continue ice twice daily to RLE Assessment & Plan (06/11/2024 5:17 PM EST): Pt's main chief complaint is RLE edema, erythema, and pain. SIRS negative. No febrile episode. BL LE duplexes negative for DVT's. He denies trauma to RLE. Clinical exam and history concerning for cellulitis. MRSA PCR negative. Patient got 4 days of cefazolin but there was no improvement in his erythema. He was Switched to IV vancomycin. Monitor Vanco trough levels. -Continue trending CBC as needed -Continue ice twice daily to RLE Assessment & Plan (06/10/2024 11:03 PM EST): Pt's main chief complaint is RLE edema, erythema, and pain. SIRS negative. No febrile episode. BL LE duplexes negative for DVT's. He denies trauma to RLE. Clinical exam and history concerning for cellulitis. MRSA PCR negative. -Stop cefazolin due to lack of clinical improvement. Switch to IV vancomycin. Monitor Vanco trough levels. -Continue trending CBC as needed -Continue ice twice daily to RLE Assessment & Plan (06/07/2024 12:38 PM EST): Pt's main chief complaint is RLE edema, erythema, and pain. SIRS negative. No febrile episode. BL LE duplexes negative for DVT's. He denies trauma to RLE. Clinical exam and history concerning for cellulitis. - Continue Cefazolin 1 g q 8 hrs (D1: 06/06/24) - MRSA PCR neg - Monitor white count/fever curve - If lack of clinical improvement consider broadening for MRSA coverage Assessment & Plan (06/06/2024 10:34 AM EST): Pt's main chief complaint is RLE edema, erythema, and pain. SIRS negative. No febrile episode. BL LE duplexes negative for DVT's. He denies trauma to RLE. Clinical exam and history concerning for cellulitis. - Start Cefazolin 1 g q 8 hrs (D1: 06/06/24) - Follow up MRSA PCR - Monitor white count/fever curve - If lack of clinical improvement consider broadening for MRSA coverage Chronic obstructive pulmonar y disease with acute exacerbation 05/21/2024 Assessment & Plan (05/25/2024 11:40 AM EST): Patient with COPD presenting from [facility] for hypoxia after he was found to be 82% on RA. EMS gave duoneb, 125mg IV Solumedrol and placed on 4L. Found to have diffuse expiratory wheezing with B/L crackles. CXR with low lung volumes, no focal consolidation and no pleural effusion or pneumothorax. Labs with no evidence of infection. VBG with pH 7.37 and pCO2 51.6. Clinical improvement following administration of steroids and nebulizers. Presentation is altogether consistent with COPD exacerbation. Patient has had several admissions for COPDe superimposed by PNA/viral URI. Reports following with a PCP but does not have a senior geologist, may benefit from outpatient referral to decrease incidence of hospitalization. On discharge: -prednisone 40mg daily through 05/26 -Ambulatory pulmonology referral placed Assessment & Plan (05/24/2024 10:55 AM EST): Patient with COPD presenting from [facility] for hypoxia after he was found to be 82% on RA. EMS gave duoneb, 125mg IV Solumedrol and placed on 4L. Found to have diffuse expiratory wheezing with B/L crackles. CXR with low lung volumes, no focal consolidation and no pleural effusion or pneumothorax. Labs with no evidence of infection. VBG with pH 7.37 and pCO2 51.6. Clinical improvement following administration of steroids and nebulizers. Presentation is altogether consistent with COPD exacerbation. Patient has had several admissions for COPDe superimposed by PNA/viral URI. Reports following with a PCP but does not have a senior geologist, may benefit from outpatient referral to decrease incidence of hospitalization. -prednisone 40mg daily x 5 days (D1: 05/22) -duonebs q4hr PRN -albuterol 2.5mg neb q4hr prn -maintain SpO2 88-92% -Ambulatory pulmonology referral on discharge Assessment & Plan (05/23/2024 3:55 PM EST): Patient with COPD presenting from [facility] for hypoxia after he was found to be 82% on RA. EMS gave duoneb, 125mg IV Solumedrol and placed on 4L. Found to have diffuse expiratory wheezing with B/L crackles. CXR with low lung volumes, no focal consolidation and no pleural effusion or pneumothorax. Labs with no evidence of infection. VBG with pH 7.37 and pCO2 51.6. Clinical improvement following administration of steroids and nebulizers. Presentation is altogether consistent with COPD exacerbation. Patient has had several admissions for COPDe superimposed by PNA/viral URI. Reports following with a PCP but does not have a senior geologist, may benefit from outpatient referral to decrease incidence of hospitalization. -prednisone 40mg daily x 5 days (D1: 05/22) -duonebs q4hr scheduled -albuterol 2.5mg neb q4hr prn -maintain SpO2 88-92% -may benefit from pulm outpatient Assessment & Plan (05/22/2024 1:21 PM EST): Patient with COPD presenting from [facility] for hypoxia after he was found to be 82% on RA. EMS gave duoneb, 125mg IV Solumedrol and placed on 4L. Found to have diffuse expiratory wheezing with B/L crackles. CXR with low lung volumes, no focal consolidation and no pleural effusion or pneumothorax. Labs with no evidence of infection. VBG with pH 7.37 and pCO2 51.6. Clinical improvement following administration of steroids and nebulizers. Presentation is altogether consistent with COPD exacerbation. Patient has had several admissions for COPDe superimposed by PNA/viral URI. Reports following with a PCP but does not have a senior geologist, may benefit from outpatient referral to decrease incidence of hospitalization. -prednisone 40mg daily x 5 days (D1: 05/22) -duonebs q4hr scheduled -albuterol 2.5mg neb q4hr prn -maintain SpO2 88-92% -may benefit from pulm outpatient Pneumonia 05/01/2024 Assessment & Plan (05/05/2024 11:43 AM EST): COVID viral infection complicated by potential superimposed bacterial pneumonia. Strep pneumo/legionella negative - completed course of antibiotics Assessment & Plan (05/04/2024 1:43 PM EST): COVID viral infection complicated by potential superimposed bacterial pneumonia. Strep pneumo/legionella negative - completed course of antibiotics Assessment & Plan (05/03/2024 12:11 PM EST): COVID viral infection complicated by potential superimposed bacterial pneumonia. Strep pneumo/legionella negative - CTX 1g daily for 5 days (d1=04/29) - Azithromycin 500 mg daily for 3 days (d1=04/29) Assessment & Plan (05/02/2024 10:18 AM EST): COVID viral infection complicated by potential superimposed bacterial pneumonia. Strep pneumo/legionella negative - CTX 1g daily for 5 days (d1=04/29) - Azithromycin 500 mg daily for 3 days (d1=04/29) Assessment & Plan (05/01/2024 1:12 PM EST): COVID viral infection complicated by potential superimposed bacterial pneumonia. Strep pneumo/legionella negative - CTX 1g daily for 5 days (d1=04/29) - Azithromycin 500 mg daily for 3 days (d1=04/29) Polysubstance use disorder 04/29/2024 Assessment & Plan (06/16/2024 12:16 PM EST): Patient with hx of anxiety, depression and mood disorder. During previous admission 04/2024 psych was consulted in setting of SI and section 12. Adjustments were made to psych med regimen and are as follows: clonidine 0.1mg 3 times a day prn, cymbalta 20mg daily, atarax 25mg TID prn, lyrica 75mg 3 times a day and trazodone 50mg nightly prn. Trazodone increased to 100 mg po nightly prn given reports of insomnia on the 50 mg dose. -Continue home clonidine 0.1mg 3 times a day prn -Continue home cymbalta 20mg daily -Continue home atarax 25mg TID prn -Continue home lyrica 75mg 3 times a day -Continue trazodone 100 mg p.o. nightly Patient discharged to [facility] program, they will be assisting him with transitional housing. Discussed with patient that he will need a primary care doctor and he states [facility] program has been helping him organize that. Information in discharge paperwork provided on how to find a PCP. Assessment & Plan (06/15/2024 5:57 PM EST): Patient with hx of anxiety, depression and mood disorder. During previous admission 04/2024 psych was consulted in setting of SI and section 12. Adjustments were made to psych med regimen and are as follows: clonidine 0.1mg 3 times a day prn, cymbalta 20mg daily, atarax 25mg TID prn, lyrica 75mg 3 times a day and trazodone 50mg nightly prn. Trazodone increased to 100 mg po nightly prn given reports of insomnia on the 50 mg dose. -Continue home clonidine 0.1mg 3 times a day prn -Continue home cymbalta 20mg daily -Continue home atarax 25mg TID prn -Continue home lyrica 75mg 3 times a day -Continue trazodone 100 mg p.o. nightly Assessment & Plan (06/14/2024 2:17 PM EST): Patient with hx of anxiety, depression and mood disorder. During previous admission 04/2024 psych was consulted in setting of SI and section 12. Adjustments were made to psych med regimen and are as follows: clonidine 0.1mg 3 times a day prn, cymbalta 20mg daily, atarax 25mg TID prn, lyrica 75mg 3 times a day and trazodone 50mg nightly prn. Trazodone increased to 100 mg po nightly prn given reports of insomnia on the 50 mg dose. -Continue home clonidine 0.1mg 3 times a day prn -Continue home cymbalta 20mg daily -Continue home atarax 25mg TID prn -Continue home lyrica 75mg 3 times a day -Continue trazodone 100 mg p.o. nightly Assessment & Plan (06/12/2024 3:38 PM EST): Patient with hx of anxiety, depression and mood disorder. During previous admission 04/2024 psych was consulted in setting of SI and section 12. Adjustments were made to psych med regimen and are as follows: clonidine 0.1mg 3 times a day prn, cymbalta 20mg daily, atarax 25mg TID prn, lyrica 75mg 3 times a day and trazodone 50mg nightly prn. Trazodone increased to 100 mg po nightly prn given reports of insomnia on the 50 mg dose. -Continue home clonidine 0.1mg 3 times a day prn -Continue home cymbalta 20mg daily -Continue home atarax 25mg TID prn -Continue home lyrica 75mg 3 times a day -Continue trazodone 100 mg p.o. nightly Assessment & Plan (06/11/2024 5:17 PM EST): Patient with hx of anxiety, depression and mood disorder. During previous admission 04/2024 psych was consulted in setting of SI and section 12. Adjustments were made to psych med regimen and are as follows: clonidine 0.1mg 3 times a day prn, cymbalta 20mg daily, atarax 25mg TID prn, lyrica 75mg 3 times a day and trazodone 50mg nightly prn. Trazodone increased to 100 mg po nightly prn given reports of insomnia on the 50 mg dose. -Continue home clonidine 0.1mg 3 times a day prn -Continue home cymbalta 20mg daily -Continue home atarax 25mg TID prn -Continue home lyrica 75mg 3 times a day -Continue trazodone 100 mg p.o. nightly Assessment & Plan (06/10/2024 11:03 PM EST): Patient with hx of anxiety, depression and mood disorder. During previous admission 04/2024 psych was consulted in setting of SI and section 12. Adjustments were made to psych med regimen and are as follows: clonidine 0.1mg 3 times a day prn, cymbalta 20mg daily, atarax 25mg TID prn, lyrica 75mg 3 times a day and trazodone 50mg nightly prn. Trazodone increased to 100 mg po nightly prn given reports of insomnia on the 50 mg dose. -Continue home clonidine 0.1mg 3 times a day prn -Continue home cymbalta 20mg daily -Continue home atarax 25mg TID prn -Continue home lyrica 75mg 3 times a day -Continue trazodone 100 mg p.o. nightly Assessment & Plan (06/07/2024 12:38 PM EST): Patient with hx of anxiety, depression and mood disorder. During previous admission 04/2024 psych was consulted in setting of SI and section 12. Adjustments were made to psych med regimen and are as follows: clonidine 0.1mg 3 times a day prn, cymbalta 20mg daily, atarax 25mg TID prn, lyrica 75mg 3 times a day and trazodone 50mg nightly prn. - Trazodone increased to 100 mg po nightly prn given reports of insomnia on the 50 mg dose - Continue rest of home medications as above Assessment & Plan (06/06/2024 10:34 AM EST): Patient with hx of anxiety, depression and mood disorder. During previous admission 04/2024 psych was consulted in setting of SI and section 12. Adjustments were made to psych med regimen and are as follows: clonidine 0.1mg 3 times a day prn, cymbalta 20mg daily, atarax 25mg TID prn, lyrica 75mg 3 times a day and trazodone 50mg nightly prn. - Continue home regimen Assessment & Plan (06/05/2024 10:24 PM EST): Patient had history of cocaine and opioid use disorder, multiple admission for withdrawal. Patient appears drowsy with no dyspnea. ABG mild CO2 retention at baseline, pH 7.32. -Continue clonidine 0.1 mg 3 times daily as needed -Continue baclofen 10 mg twice daily -CIWA protocol if signs of withdrawal Assessment & Plan (05/25/2024 11:40 AM EST): History of cocaine and OUD with several hospital admissions for withdrawal, presented from [facility] of acute hypoxic respiratory failure 2/2 COPDe. He has been on a 2 day detox from cocaine and alcohol. Reports last use was 05/20. Returned on CIWA and received diazepam rescue protocol. CIWA discontinued on 05/24. -continue home clonidine 0.1mg 3 times a day prn Assessment & Plan (05/24/2024 10:55 AM EST): History of cocaine and OUD with several hospital admissions for withdrawal, presented from [facility] of acute hypoxic respiratory failure 2/2 COPDe. He has been on a 2 day detox from cocaine and alcohol. Reports last use was 05/20. Returned on CIWA and received diazepam rescue protocol. CIWA discontinued on 05/24. -continue home clonidine 0.1mg 3 times a day prn -thiamine, folic acid, Mag Assessment & Plan (05/23/2024 3:55 PM EST): History of cocaine and OUD with several hospital admissions for withdrawal, presented from [facility] of acute hypoxic respiratory failure 2/2 COPDe. He has been on a 2 day detox from cocaine and alcohol. Reports last use was 05/20. Was given 10 mg of Valium by [facility] due to withdrawal symptoms and CIWA 10. -CIWA with rescue valium -continue home clonidine 0.1mg 3 times a day prn -thiamine, folic acid, Mag Assessment & Plan (05/22/2024 1:21 PM EST): History of cocaine and OUD with several hospital admissions for withdrawal, presented from [facility] of acute hypoxic respiratory failure 2/2 COPDe. He has been on a 2 day detox from cocaine and alcohol. Reports last use was 05/20. Was given 10 mg of Valium by [facility] due to withdrawal symptoms and CIWA 10. -CIWA with rescue valium -continue home clonidine 0.1mg 3 times a day prn -thiamine, folic acid, Mag Assessment & Plan (05/05/2024 11:43 AM EST): History of cocaine and OUD with several hospital admissions for withrawal, presented from [facility] (Section 21) in the setting of COVID. Was on a chlordiazepoxide at rehab, but last alcohol intake > 1 week [employer] to transfer here -continue home clonidine 0.1mg 3 times a day -continue home baclofen 10mg 3 times a day -nicotine patch as needed -thiamine and MV daily Assessment & Plan (05/04/2024 1:43 PM EST): History of cocaine and OUD with several hospital admissions for withrawal, presented from [facility] (Section 21) in the setting of COVID. Was on a chlordiazepoxide at rehab, but last alcohol intake > 1 week [employer] to transfer here -continue home clonidine 0.1mg 3 times a day -continue home baclofen 10mg 3 times a day -nicotine patch as needed -thiamine and MV daily Assessment & Plan (05/03/2024 12:11 PM EST): History of cocaine and OUD with several hospital admissions for withrawal, presented from [facility] (Section 21) in the setting of COVID. Was on a chlordiazepoxide at rehab, but last alcohol intake > 1 week [employer] to transfer here -continue home clonidine 0.1mg 3 times a day -continue home baclofen 10mg 3 times a day -CIWA without meds, add if needed -nicotine patch as needed -thiamine and MV daily Assessment & Plan (05/02/2024 10:18 AM EST): History of cocaine and OUD with several hospital admissions for withrawal, presented from [facility] (Section 21) in the setting of COVID. Was on a chlordiazepoxide at rehab, but last alcohol intake > 1 week [employer] to transfer here -continue home clonidine 0.1mg 3 times a day -continue home baclofen 10mg 3 times a day -CIWA without meds, add if needed -nicotine patch as needed -thiamine and MV daily Assessment & Plan (05/01/2024 1:12 PM EST): History of cocaine and OUD with several hospital admissions for lisa, presented from [facility] (Section 21) in the setting of COVID. Was on a chlordiazepoxide at rehab, but last alcohol intake > 1 week [employer] to transfer here -continue home clonidine 0.1mg 3 times a day -continue home baclofen 10mg 3 times a day -CIWA without meds, add if needed -nicotine patch as needed -thiamine and MV daily COVID-19 04/29/2024 Assessment & Plan (05/05/2024 11:43 AM EST): COVID+ on 04/29/24 with associated hypoxia and complicated by possible superimposed (bacterial) pneumonia - completed course of Remdesevir - Decadron 6mg , day 04/29 - completed Ceftriaxone and azithromycin Assessment & Plan (05/04/2024 1:43 PM EST): COVID+ on 04/29/24 with associated hypoxia and complicated by possible superimposed (bacterial) pneumonia - Remdesevir x 5 days(d1=04/30) - Decadron 6mg IV q24h x 5 days(d1=04/29) - completed Ceftriaxone and azithromycin Assessment & Plan (05/03/2024 12:11 PM EST): COVID+ on 04/29/24 with associated hypoxia and complicated by possible superimposed (bacterial) pneumonia - Remdesevir x 5 days(d1=04/30) - Decadron 6mg IV q24h x 5 days(d1=04/29) - CTX 1g daily for 5 days (d1=04/29) - Azithromycin 500 mg daily for 3 days (d1=04/29) Assessment & Plan (05/02/2024 10:18 AM EST): COVID+ on 04/29/24 with associated hypoxia and complicated by possible superimposed (bacterial) pneumonia - Remdesevir x 5 days(d1=04/30) - Decadron 6mg IV q24h x 5 days(d1=04/29) - CTX 1g daily for 5 days (d1=04/29) - Azithromycin 500 mg daily for 3 days (d1=04/29) Assessment & Plan (05/01/2024 1:12 PM EST): COVID+ on 04/29/24 with associated hypoxia and complicated by possible superimposed (bacterial) pneumonia - Remdesevir x 5 days(d1=04/29) - Decadron 6mg IV q24h x 5 days(d1=04/29) - CTX 1g daily for 5 days (d1=04/29) - Azithromycin 500 mg daily for 3 days (d1=04/29) Microcytic anemia 04/29/2024 Assessment & Plan (05/25/2024 11:40 AM EST): Patient with acute on chronic microcytic anemia. Clinically no signs of active bleeding. Most recent Iron panel 04/2023 with Iron level 15, ferritin low at 21,TIBC 360, transferrin 288, B12 315 After discharge: -ensure patient up-to-date on age-appropriate cancer screening especially colonoscopy Assessment & Plan (05/24/2024 10:55 AM EST): Patient with acute on chronic microcytic anemia. Clinically no signs of active bleeding. Most recent Iron panel 04/2023 with Iron level 15, ferritin low at 21,TIBC 360, transferrin 288, B12 315 -monitor CBC -ensure patient up-to-date on age-appropriate cancer screening especially colonoscopy Assessment & Plan (05/23/2024 3:55 PM EST): Patient with acute on chronic microcytic anemia. Clinically no signs of active bleeding. Most recent Iron panel 04/2023 with Iron level 15, ferritin low at 21,TIBC 360, transferrin 288, B12 315 -monitor CBC -ensure patient up-to-date on age-appropriate cancer screening especially colonoscopy Assessment & Plan (05/22/2024 1:21 PM EST): Patient with acute on chronic microcytic anemia. Clinically no signs of active bleeding. Most recent Iron panel 04/2023 with Iron level 15, ferritin low at 21,TIBC 360, transferrin 288, B12 315 -monitor CBC -ensure patient up-to-date on age-appropriate cancer screening especially colonoscopy Assessment & Plan (05/05/2024 11:43 AM EST): Patient with acute on chronic microcytic anemia, on iron supplement. Clinically no signs of active bleeding. Iron level 15, ferritin low at 21,TIBC 360, transferrin 288, B12 315 -monitor CBC Assessment & Plan (05/04/2024 1:43 PM EST): Patient with acute on chronic microcytic anemia, on iron supplement. Clinically no signs of active bleeding. Iron level 15, ferritin low at 21,TIBC 360, transferrin 288, B12 315 -monitor CBC Assessment & Plan (05/03/2024 12:11 PM EST): Patient with acute on chronic microcytic anemia, on iron supplement. Clinically no signs of active bleeding. Iron level 15, ferritin low at 21,TIBC 360, transferrin 288, B12 315 -monitor CBC Assessment & Plan (05/02/2024 10:18 AM EST): Patient with acute on chronic microcytic anemia, on iron supplement. Clinically no signs of active bleeding. Iron level 15, ferritin low at 21,TIBC 360, transferrin 288, B12 315 -monitor CBC Assessment & Plan (05/01/2024 1:12 PM EST): Patient with acute on chronic microcytic anemia, on iron supplement. Clinically no signs of active bleeding. Iron level 15, ferritin low at 21,TIBC 360, transferrin 288, B12 315 -monitor CBC GERD (gastroesophageal reflux disease) Assessment & Plan (06/16/2024 12:16 PM EST): -Continue pantoprazole 20 mg daily Assessment & Plan (06/15/2024 5:57 PM EST): -Continue pantoprazole 20 mg daily Assessment & Plan (06/14/2024 2:17 PM EST): -Continue pantoprazole 20 mg daily Assessment & Plan (06/12/2024 3:38 PM EST): -Continue pantoprazole 20 mg daily Assessment & Plan (06/11/2024 5:17 PM EST): -Continue pantoprazole 20 mg daily Assessment & Plan (06/10/2024 11:03 PM EST): -Continue pantoprazole 20 mg daily Assessment & Plan (06/07/2024 12:38 PM EST): Continue pantoprazole 20 mg daily Assessment & Plan (06/06/2024 10:34 AM EST): Continue pantoprazole 20 mg daily Assessment & Plan (06/05/2024 10:25 PM EST): Continue pantoprazole 20 mg daily Assessment & Plan (05/25/2024 11:40 AM EST): - continue home PPI Assessment & Plan (05/24/2024 10:55 AM EST): - Pantoprazole 20 mg daily while inpatient Assessment & Plan (05/23/2024 3:55 PM EST): - Pantoprazole 20 mg daily while inpatient Assessment & Plan (05/22/2024 1:21 PM EST): - Pantoprazole 20 mg daily while inpatient Assessment & Plan (05/05/2024 11:43 AM EST): -continue pantoprazole 40mg daily Assessment & Plan (05/04/2024 1:43 PM EST): -pantoprazole 40mg daily Assessment & Plan (05/03/2024 12:11 PM EST): -pantoprazole 40mg daily Assessment & Plan (05/02/2024 10:18 AM EST): -pantoprazole 40mg daily Assessment & Plan (05/01/2024 1:12 PM EST): -pantoprazole 40mg daily Assessment & Plan (04/24/2024 11:29 AM EST): Home med: Prilosec 20 mg daily -Pantoprazole 20 mg daily Assessment & Plan (04/23/2024 9:51 AM EST): Home med: Prilosec 20 mg daily -Pantoprazole 20 mg daily Assessment & Plan (04/22/2024 9:22 AM EST): Home med: Prilosec 20 mg daily -Pantoprazole 20 mg daily Assessment & Plan (04/21/2024 9:58 AM EST): Home med: Prilosec 20 mg daily -Pantoprazole 20 mg daily Assessment & Plan (04/20/2024 11:03 AM EST): Home med: Prilosec 20 mg daily -Pantoprazole 20 mg daily Assessment & Plan (04/19/2024 8:47 AM EST): Home med: Prilosec 20 mg daily -Pantoprazole 20 mg daily Cocaine abuse 04/19/2024 Assessment & Plan (04/24/2024 11:29 AM EST): Last cocaine use was 04/15/24. Established with [facility]. Utox was positive only for cocaine on presentation. -CTM Assessment & Plan (04/23/2024 9:51 AM EST): Last cocaine use was 04/15/24. Established with [facility]. Utox was positive only for cocaine on presentation. -CTM Assessment & Plan (04/22/2024 9:22 AM EST): Last cocaine use was 04/15/24. Established with [facility]. Utox was positive only for cocaine on presentation. -CTM Assessment & Plan (04/21/2024 9:58 AM EST): Last cocaine use was 04/15/24. Established with [facility]. Utox was positive only for cocaine on presentation. -CTM Assessment & Plan (04/20/2024 11:03 AM EST): Last cocaine use was 04/15/24. Established with [facility]. Utox was positive only for cocaine on presentation. -CTM Assessment & Plan (04/19/2024 12:45 PM EST): Last cocaine use was 04/15/24. Established with [facility]. Utox was positive only for cocaine on presentation. -CTM COPD (chronic obstructive pulmonary disease) 08/2024 Assessment & Plan (05/05/2024 11:43 AM EST): COPD documented without PFT's on file, no baseline oxygen requirement and no bronchodilators listed on dispense report. Per chart review he has had several recent admissions for COPD+/- PNA. - continue duonebs q4h scheduled - Steroids per COVID section - outpatient pulmonary evaluation for full PFTs Assessment & Plan (05/04/2024 1:43 PM EST): COPD documented without PFT's on file, no baseline oxygen requirement and no bronchodilators listed on dispense report. Per chart review he has had several recent admissions for COPD+/- PNA. - duonebs q4h scheduled - SpO2 goal 88-92% - Steroids per COVID section - outpatient pulmonary evaluation for full PFTs Assessment & Plan (05/03/2024 12:11 PM EST): COPD documented without PFT's on file, no baseline oxygen requirement and no bronchodilators listed on dispense report. Per chart review he has had several recent admissions for COPD+/- PNA. Bronchospasm noted on exam consistent with possible COPDe - duonebs q4h scheduled - SpO2 goal 88-92% - Steroids per COVID section - outpatient pulmonary evaluation for full PFTs Assessment & Plan (05/02/2024 10:18 AM EST): COPD documented without PFT's on file, no baseline oxygen requirement and no bronchodilators listed on dispense report. Per chart review he has had several recent admissions for COPD+/- PNA. Bronchospasm noted on exam consistent with possible COPDe - duonebs q4h scheduled - SpO2 goal 88-92% - Steroids per COVID section - outpatient pulmonary evaluation for full PFTs Assessment & Plan (05/01/2024 1:12 PM EST): COPD documented without PFT's on file, no baseline oxygen requirement and no bronchodilators listed on dispense report. Per chart review he has had several recent admissions for COPD+/- PNA. Bronchospasm noted on exam consistent with possible COPDe - duonebs q4h scheduled - SpO2 goal 88-92% - Steroids per COVID section - outpatient pulmonary evaluation for full PFTs Assessment & Plan (04/24/2024 11:29 AM EST): No home medication. Noted to be wheezing on presentation. Per chart review, patient is on 2-3 L NC at baseline at night. Patient noted to be on nocturnal cpap however patient has been refusing nocturnal cpap. -DuoNeb 4 times a day while awake -Solumedrol 40 mg IV 1x (04/19), prednisone 40 mg daily (04/20-04/23) -Follow up VBG -SpO2 88-92% Assessment & Plan (04/23/2024 11:18 AM EST): No home medication. Noted to be wheezing on presentation. Per chart review, patient is on 2-3 L NC at baseline at night. Patient noted to be on nocturnal cpap however patient has been refusing nocturnal cpap. -DuoNeb 4 times a day while awake -Solumedrol 40 mg IV 1x (5), prednisone 40 mg daily (04/20-04/23) -Follow up VBG -SpO2 88-92% Assessment & Plan (04/22/2024 9:22 AM EST): No home medication. Noted to be wheezing on presentation. Per chart review, patient is on 2-3 L NC at baseline. -DuoNeb 4 times a day while awake -Solumedrol 40 mg IV 1x (04/19), switched to prednisone 40 mg daily (04/20-04/23) -Follow up VBG -SpO2 88-92% Assessment & Plan (04/21/2024 9:58 AM EST): No home medication. Noted to be wheezing on presentation. Per chart review, patient is on 2-3 L NC at baseline. -DuoNeb 4 times a day while awake -Solumedrol 40 mg IV 1x (04/19), switched to prednisone 40 mg daily (04/20) -Follow up VBG -SpO2 88-92% Assessment & Plan (04/20/2024 11:03 AM EST): No home medication. Noted to be wheezing on presentation. Per chart review, patient is on 2-3 L NC at baseline. -DuoNeb 4 times a day while awake -Solumedrol 40 mg IV 1x (04/19), switched to prednisone 40 mg daily (04/20) -Follow up VBG -SpO2 88-92% Assessment & Plan (04/19/2024 12:45 PM EST): No home medication. Noted to be wheezing on presentation. Per chart review, patient is on 2-3 L NC at baseline. -DuoNeb 4 times a day while awake -Solumedrol 40 mg IV daily (04/19---) -Follow up VBG -SpO2 88-92% Anxiety and depression 04/19/2024 Assessment & Plan (05/25/2024 11:40 AM EST): Patient with hx of anxiety, depression and mood disorder. During previous admission 04/2024 psych was consulted in setting of SI and section 12. Adjustments were made to psych med regimen and are as follows: clonidine 0.1mg 3 times a day prn, cymbalta 20mg daily, atarax 25mg TID prn, lyrica 75mg 3 times a day and trazodone 50mg nightly prn. -continue home regimen Assessment & Plan (05/24/2024 10:55 AM EST): Patient with hx of anxiety, depression and mood disorder. During previous admission 04/2024 psych was consulted in setting of SI and section 12. Adjustments were made to psych med regimen and are as follows: clonidine 0.1mg 3 times a day prn, cymbalta 20mg daily, atarax 25mg TID prn, lyrica 75mg 3 times a day and trazodone 50mg nightly prn. -continue home regimen Assessment & Plan (05/23/2024 3:55 PM EST): Patient with hx of anxiety, depression and mood disorder. During previous admission 04/2024 psych was consulted in setting of SI and section 12. Adjustments were made to psych med regimen and are as follows: clonidine 0.1mg 3 times a day prn, cymbalta 20mg daily, atarax 25mg TID prn, lyrica 75mg 3 times a day and trazodone 50mg nightly prn. -continue home regimen Assessment & Plan (05/22/2024 1:21 PM EST): Patient with hx of anxiety, depression and mood disorder. During previous admission 04/2024 psych was consulted in setting of SI and section 12. Adjustments were made to psych med regimen and are as follows: clonidine 0.1mg 3 times a day prn, cymbalta 20mg daily, atarax 25mg TID prn, lyrica 75mg 3 times a day and trazodone 50mg nightly prn. -continue home regimen Assessment & Plan (05/05/2024 11:43 AM EST): Unspecified mood disorder on several psychotropic medications. Transferred to the hospital from [facility] under Section 21. Was evaluated by psychiatry and they lifted section 12. Discontinued loxapine and Zyprexa -continue Cymbalta 20 Mg -continue trazodone 50 Mg - continue Clonidine 0.1 Mg 3 times daily as needed for anxiety - Hydroxyzine 25 mg every 8 hours as needed - Pregabalin 75 mg three times a day - discussed with the psych team 05/04, they will work on voluntary admission to mental health facility Assessment & Plan (05/04/2024 1:43 PM EST): Unspecified mood disorder on several psychotropic medications. Transferred to the hospital from [facility] under Section 21. Was evaluated by psychiatry and they lifted section 12. Discontinued loxapine and Zyprexa He is under section 21 -continue Cymbalta 20 Mg -continue trazodone 50 Mg - continue Clonidine 0.1 Mg 3 times daily as needed for anxiety - Hydroxyzine 25 mg every 8 hours as needed - Pregabalin 75 mg three times a day - discussed with the psych team 05/04, they will work on voluntary admission to mental health facility Assessment & Plan (05/03/2024 12:11 PM EST): Unspecified mood disorder on several psychotropic medications. Transferred to the hospital from [facility] under Section 21. I am unclear at this time if he is also under Section 12 (hospitalized for 02/2024). Was evaluate by psychiatry and lifted section 12. Discontinued loxapine and Zyprexa -restarted Cymbalta 20 Mg -Restarted trazodone 50 Mg -Clonidine 0.1 Mg 3 times daily as needed for anxiety - Hydroxyzine 25 mg every 8 hours as needed - Pregabalin 75 mg three times a day - Formal psych evaluation requested to help clarify Section and medications Assessment & Plan (05/02/2024 10:18 AM EST): Unspecified mood disorder on several psychotropic medications. Transferred to the hospital from [facility] under Section 21. I am unclear at this time if he is also under Section 12 (hospitalized for 02/2024). Was evaluate by psychiatry and lifted section 12. Discontinued loxapine and Zyprexa -restart Cymbalta 20 Mg -Restart trazodone 50 Mg -Clonidine 0.1 Mg 3 times daily as needed for anxiety - Hydroxyzine 25 mg every 8 hours as needed - Pregabalin 75 mg three times a day - Formal psych evaluation requested to help clarify Section and medications Assessment & Plan (05/01/2024 1:12 PM EST): Unspecified mood disorder on several psychotropic medications. [facility] to [facility] under Section 21. I am unclear at this time if he is also under Section 12 (hospitalized for SI 02/2024). Will need to clarify with psychiatry CL here - HOLD loxapine 100 mg [not noted in [facility] MAR] - Continue Zyprexa 10 mg daily [confirmed [facility] records] - Hydroxyzine 25 mg every 8 hours as needed - Pregabalin 75 mg three times a day - Formal psych evaluation requested to help clarify Section and medications Assessment & Plan (04/24/2024 11:29 AM EST): No home meds, although patient has Clonidine as prescribed in the past for anxiety PRN. [place] [facility] [place] ACRHF in Feb 2024. -Clonidine 0.1 mg 3 times a day PRN Assessment & Plan (04/23/2024 9:51 AM EST): No home meds, although patient has Clonidine as prescribed in the past for anxiety PRN. Was hospitalized [place] [facility] [place] & ACRHF in Feb 2024. -Clonidine 0.1 mg 3 times a day PRN Assessment & Plan (04/22/2024 9:22 AM EST): No home meds, although patient has Clonidine as prescribed in the past for anxiety PRN. Was hospitalized [place] [facility] [place] & ACRHF in Feb 2024. -Clonidine 0.1 mg 3 times a day PRN Assessment & Plan (04/21/2024 9:58 AM EST): No home meds, although patient has Clonidine as prescribed in the past for anxiety PRN. Was hospitalized [place] [facility] [place] & ACRHF in Feb 2024. -Clonidine 0.1 mg 3 times a day PRN Assessment & Plan (04/20/2024 11:03 AM EST): No home meds, although patient has Clonidine as prescribed in the past for anxiety PRN. Was hospitalized [place] [facility] [place] ideations & ACRHF in Feb 2024. -Clonidine 0.1 mg 3 times a day PRN Assessment & Plan (04/19/2024 12:45 PM EST): No home meds, although patient has Clonidine as prescribed in the past for anxiety PRN. Was hospitalized at [facility] [place] ideations & ACRHF in Feb 2024. -Clonidine 0.1 mg 3 times a day PRN ANA (obstructive sleep apnea) 04/19/2024 Assessment & Plan (04/24/2024 11:29 AM EST): Nightly CPAP ordered, although patient is homeless therefore does not have CPAP machine. Often refuses CPAP use in the hospital. VBG on 04/19 showed pH 7.4, pCO2 40, HCO3 27, Base excess 3 Assessment & Plan (04/23/2024 9:51 AM EST): Nightly CPAP ordered, although patient is homeless therefore does not have CPAP machine. Often refuses CPAP use in the hospital. VBG on 04/19 showed pH 7.4, pCO2 40, HCO3 27, Base excess 3 Assessment & Plan (04/22/2024 9:22 AM EST): Nightly CPAP ordered, although patient is homeless therefore does not have CPAP machine. Often refuses CPAP use in the hospital. VBG on 04/19 showed pH 7.4, pCO2 40, HCO3 27, Base excess 3 Assessment & Plan (04/21/2024 9:58 AM EST): Nightly CPAP ordered, although patient is homeless therefore does not have CPAP machine. Often refuses CPAP use in the hospital. VBG on 04/19 showed pH 7.4, pCO2 40, HCO3 27, Base excess 3 Assessment & Plan (04/20/2024 11:03 AM EST): Nightly CPAP ordered, although patient is homeless therefore does not have CPAP machine. Often refuses CPAP use in the hospital. VBG on 04/19 showed pH 7.4, pCO2 40, HCO3 27, Base excess 3 Assessment & Plan (04/19/2024 4:33 PM EST): Nightly CPAP ordered, although patient is homeless therefore does not have CPAP machine. Often refuses CPAP use in the hospital. VBG on 04/19 showed pH 7.4, pCO2 40, HCO3 27, Base excess 3 Resolved Problems Problem Noted Date Diagnosed Date Resolved Date Shortness of breath 06/05/2024 06/17/19 25 Assessment & Plan (06/16/2024 12:16 PM EST): Uncertain etiology. However on questioning he states that he does not have any trouble breathing. He has COPD and lives at 88-90%. Likely also has ANA. Patient recently admitted in early May for COPD exacerbation and hypoxia, brought in for complaining short of breath and bilateral lower extremity edema. ProBNP WNL. Hypoxia mid 80s, increased to 93% with 2 L nasal cannula, similar to his baseline COPD and ANA. On exam he does have BL LE edema, R>L with erythema of the RLE concerning for cellulitis. He is not wheezy on exam. Clinical presentation not consistent with a COPDe. TTE done on this admit with normal Systolic function and mild aortic stenosis. Patient is s/p IV lasix 40 mg with some improvement in leg swelling. - Discharge on home inhalers - PRN albuterol and daily anoro elipta - Discuss that patient needs to re-establish care with PCP. He said [facility] program is helping him with this as well as transitional housing given that he is homeless. Information provided to find PCP. Patient is in agreement with this plan. Assessment & Plan (06/15/2024 5:57 PM EST): Uncertain etiology. Initially was being given IV Lasix, daily dosing. Continue as needed bronchodilators. Echo unremarkable Assessment & Plan (06/14/2024 2:17 PM EST): Uncertain etiology. Initially was being given IV Lasix, daily dosing. Continue as needed bronchodilators. Echo unremarkable Assessment & Plan (06/12/2024 3:38 PM EST): See leg swelling discussion. Assessment & Plan (06/11/2024 5:17 PM EST): See leg swelling discussion. Assessment & Plan (06/10/2024 11:03 PM EST): See leg swelling discussion. Assessment & Plan (06/07/2024 12:38 PM EST): Patient recently admitted in early May for COPD exacerbation and hypoxia, brought in for complaining short of breath and bilateral lower extremity edema. ProBNP WNL. Hypoxia mid 80s, increased to 93% with 2 L nasal cannula, similar to his baseline COPD and ANA. On exam he does have BL LE edema, R>L with erythema of the RLE concerning for cellulitis. He is not wheezy on exam. Clinical presentation not consistent with a COPDe. Will obtain TTE to investigate for cardiac etiologies of LE edema. Further treatment for cellulitis per respective section. - Continue spot doses of diuretics based on PE; received 40 mg IV Lasix x 21 today - Goal sats >88% - Duonebs q 6 hrs while awake - Follow up TTE to r/o cardiac etiologies of LE edema Assessment & Plan (06/06/2024 4:00 PM EST): Patient recently admitted in early May for COPD exacerbation and hypoxia, brought in for complaining short of breath and bilateral lower extremity edema. ProBNP WNL. Hypoxia mid 80s, increased to 93% with 2 L nasal cannula, similar to his baseline COPD and ANA. On exam he does have BL LE edema, R>L with erythema of the RLE concerning for cellulitis. He is not wheezy on exam. Clinical presentation not consistent with a COPDe. Will obtain TTE to investigate for cardiac etiologies of LE edema. Further treatment for cellulitis per respective section. - Goal sats >88% - Duonebs q 6 hrs while awake - Follow up TTE to r/o cardiac etiologies of LE edema Assessment & Plan (06/05/2024 10:23 PM EST): Patient recently admitted in early May for COPD exacerbation and hypoxia, brought in for complaining short of breath and bilateral lower extremity edema. Initial exam by ED staff reports signs of overload with crackles in both lungs and lower extremity edema. On my exam both lungs no wheezing or crackles, bilateral pleural lower extremity nonpitting edema. Per ED staff patient stated he has heart failure, however no documentation or echocardiogram, normal proBNP. Hypoxia mid 80s, increased to 93% with 2 L nasal cannula, similar to his baseline COPD and ANA. Short of breath, hypoxia most likely COPD exacerbation, and or ANA. No sufficient evidence to support heart failure. -Continuous nasal cannula 2 L oxygen -Continuous pulse ox -DuoNeb as needed -Defer prednisone and antibiotics for now Elevated troponin 05/22/2024 05/22/2024 Assessment & Plan (05/22/2024 1:21 PM EST): Patient presenting from [facility] with acute hypoxia, placed on 4L. Initial troponin in ED 15 with repeat 26 with subsequent downtrend. EKG NSR with PACs, QTC 441. Patient denies chest pain or shortness of breath. Improving with COPDe management. Elevated troponin likely demand in setting of COPDe. Acute respiratory failure with hypoxia 04/29/2024 05/23/2024 Assessment & Plan (05/23/2024 3:55 PM EST): Likely due to COPD exacerbation as described above. Assessment & Plan (05/22/2024 1:21 PM EST): Likely due to COPD exacerbation as described above. - wean O2 as able maintain SpO2 88 to 92% Assessment & Plan (05/05/2024 11:43 AM EST): Baseline history of COPD. Presented with acute hypoxemic respiratory failure in the setting of COVID viral infection and complicated by potential superimposed bacterial pneumonia and COPDe He is not on room air Assessment & Plan (05/04/2024 1:43 PM EST): Baseline history of COPD. Presented with acute hypoxemic respiratory failure in the setting of COVID viral infection and complicated by potential superimposed bacterial pneumonia and COPDe -continuous pulse oximetry -titrate supplemental oxygen to goal SpO2 88-92% -scheduled and prn bronchodilators -treatment for COVID per section -treatment for pneumonia per section -treatment for COPDe per section Assessment & Plan (05/03/2024 12:11 PM EST): Baseline history of COPD. Presented with acute hypoxemic respiratory failure in the setting of COVID viral infection and complicated by potential superimposed bacterial pneumonia and COPDe -continuous pulse oximetry -titrate supplemental oxygen to goal SpO2 88-92% -scheduled and prn bronchodilators -treatment for COVID per section -treatment for pneumonia per section -treatment for COPDe per section Assessment & Plan (05/02/2024 10:18 AM EST): Baseline history of COPD. Presented with acute hypoxemic respiratory failure in the setting of COVID viral infection and complicated by potential superimposed bacterial pneumonia and COPDe -continuous pulse oximetry -titrate supplemental oxygen to goal SpO2 88-92% -scheduled and prn bronchodilators -treatment for COVID per section -treatment for pneumonia per section -treatment for COPDe per section Assessment & Plan (05/01/2024 1:12 PM EST): Baseline history of COPD. Presented with acute hypoxemic respiratory failure in the setting of COVID viral infection and complicated by potential superimposed bacterial pneumonia and COPDe -continuous pulse oximetry -titrate supplemental oxygen to goal SpO2 88-92% -scheduled and prn bronchodilators -treatment for COVID per section -treatment for pneumonia per section -treatment for COPDe per section Alcohol withdrawal syndrome, uncomplicated 04/18/2024 04/24/2024 Assessment & Plan (04/24/2024 11:29 AM EST): Patient was brought from [facility] due to developing altered mental status (lethargy) after x1 valium for alcohol withdrawal. Immediately became hypoxic with aspiration episode and briefly needed supplemental oxygen, then was sent to [facility] for evaluation. Patient's mental status was back to baseline on 1/4 PM. Last drink was 04/16/24 prior to admission to [facility] on same day. CT head neg. -CIWA protocol with Ativan, discontinued as pt non-scoring -Folic acid & thiamine PO daily -Seizure precautions -SW consulted for AUD. Assessment & Plan (04/23/2024 9:51 AM EST): Patient was brought from [facility] due to developing altered mental status (lethargy) after x1 valium for alcohol withdrawal. Immediately became hypoxic with aspiration episode and briefly needed supplemental oxygen, then was sent to [facility] for evaluation. Patient's mental status was back to baseline on 1/4 PM. Last drink was 04/16/24 prior to admission to [facility] on same day. CT head neg. -CIWA protocol with Ativan, discontinued as pt non-scoring -Folic acid & thiamine PO daily -Seizure precautions -SW consulted for AUD. Assessment & Plan (04/22/2024 9:22 AM EST): Patient was brought from [facility] due to developing altered mental status (lethargy) after x1 valium for alcohol withdrawal. Immediately became hypoxic with aspiration episode and briefly needed supplemental oxygen, then was sent to [facility] for evaluation. Patient's mental status was back to baseline on 1/ PM. Last drink was 04/16/24 prior to admission to [facility] on same day. CT head neg. -CIWA protocol with Ativan, discontinued as pt non-scoring -Folic acid & thiamine PO daily -Seizure precautions -SW consulted for AUD. Assessment & Plan (04/21/2024 9:58 AM EST): Patient was brought from [facility] due to developing altered mental status (lethargy) after x1 valium for alcohol withdrawal. Immediately became hypoxic with aspiration episode and briefly needed supplemental oxygen, then was sent to [facility] for evaluation. Patient's mental status was back to baseline on 1/4 PM. Last drink was 04/16/24 prior to admission to [facility] on same day. CT head neg. -CIWA protocol with Ativan, discontinued as pt non-scoring -Folic acid & thiamine PO daily -Seizure precautions -SW consulted for AUD. Assessment & Plan (04/20/2024 11:03 AM EST): Patient was brought from [facility] due to developing altered mental status (lethargy) after x1 valium for alcohol withdrawal. Immediately became hypoxic with aspiration episode and briefly needed supplemental oxygen, then was sent to [facility] for evaluation. Patient's mental status was back to baseline on 1/4 PM. Last drink was 04/16/24 prior to admission to [facility] on same day. CT head neg. -CIWA protocol with Ativan -Folic acid & thiamine PO daily -Seizure precautions -SW consulted for AUD. Assessment & Plan (04/19/2024 12:45 PM EST): Patient was brought from [facility] due to developing altered mental status (lethargy) after x1 valium for alcohol withdrawal. Immediately became hypoxic with aspiration episode and briefly needed supplemental oxygen, then was sent to [facility] for evaluation. Patient's mental status was back to baseline on 04/18 PM. Last drink was 04/16/24 prior to admission to [facility] on same day. CT head neg. -CIWA protocol with Ativan -Folic acid & thiamine PO daily -Seizure precautions -SW consulted for alcoholism. Assessment & Plan (04/18/2024 9:52 PM EST): 58 years old male, chronic alcohol abuse and GERD, transferred from [facility]. Patient has been admitted for alcohol detoxification, patient received Valium and post therapy developed respiratory distress, developed hypoxia and transferred to [facility] via EMS Plan: 1-CIWA protocol 2- replacement of multivitamins Aspiration pneumonia of both lower lobes due to gastric secretions 04/18/2024 04/24/2024 Assessment & Plan (04/24/2024 11:29 AM EST): Per Alcohol withdrawal section. XR Chest Portable 1 View Result Date: 04/18/2024 1. Bilateral airspace opacities, right greater than left, likely multifocal pneumonia with a differential of pulmonary edema 2. Prominent nodular density in medial part of right lower lung possibly pulmonary nodule Upon presentation, he was started on Vanc, Flagyl, Rocephin. Patient was recently [place] [facility] [place] and Suicidal ideations. -04/20/24 CT chest: repeat CT chest in 2-3 months to reassess ill-defined peribronchial nodular and groundglass opacities in the right upper lobe, some of which demonstrate internal cavitation, may be infectious/inflammatory in etiology. -CT abdomen w/ contrast pending -Rocephin 1g daily (04/18--04/22) -Vanc (04/18-04/20): discontinued, MRSA nares negative -Flagyl (04/18-04/19) Assessment & Plan (04/23/2024 9:51 AM EST): Per Alcohol withdrawal section. XR Chest Portable 1 View Result Date: 04/18/2024 1. Bilateral airspace opacities, right greater than left, likely multifocal pneumonia with a differential of pulmonary edema 2. Prominent nodular density in medial part of right lower lung possibly pulmonary nodule Upon presentation, he was started on Vanc, Flagyl, Rocephin. Patient was recently admitted at [facility] [place] and Suicidal ideations. -04/20/24 CT chest: repeat CT chest in 2-3 months to reassess ill-defined peribronchial nodular and groundglass opacities in the right upper lobe, some of which demonstrate internal cavitation, may be infectious/inflammatory in etiology. -CT abdomen w/ contrast pending -Rocephin 1g daily (04/18--04/22) -Vanc (04/18-04/20): discontinued, MRSA nares negative -Flagyl (04/18-04/19) Assessment & Plan (04/22/2024 9:22 AM EST): Per Alcohol withdrawal section. XR Chest Portable 1 View Result Date: 04/18/2024 1. Bilateral airspace opacities, right greater than left, likely multifocal pneumonia with a differential of pulmonary edema 2. Prominent nodular density in medial part of right lower lung possibly pulmonary nodule Upon presentation, he was started on Vanc, Flagyl, Rocephin. Patient was recently admitted at [facility] [place]F and Suicidal ideations. -04/20/24 CT chest: repeat CT chest in 2-3 months to reassess ill-defined peribronchial nodular and groundglass opacities in the right upper lobe, some of which demonstrate internal cavitation, may be infectious/inflammatory in etiology. -CT abdomen w/ contrast pending -Rocephin 1g daily (04/18--04/22) -Vanc (04/18-04/20): discontinued, MRSA nares negative -Flagyl (04/18-04/19) Assessment & Plan (04/21/2024 9:58 AM EST): Per Alcohol withdrawal section. XR Chest Portable 1 View Result Date: 04/18/2024 1. Bilateral airspace opacities, right greater than left, likely multifocal pneumonia with a differential of pulmonary edema 2. Prominent nodular density in medial part of right lower lung possibly pulmonary nodule Upon presentation, he was started on Vanc, Flagyl, Rocephin. Patient was recently admitted at [facility] [place]HRF and Suicidal ideations. -04/20/24 CT chest: repeat CT chest in 2-3 months to reassess ill-defined peribronchial nodular and groundglass opacities in the right upper lobe, some of which demonstrate internal cavitation, may be infectious/inflammatory in etiology. -Rocephin 1g daily (04/18--04/22) -Vanc (04/18-04/20): discontinued, MRSA nares negative -Flagyl (04/18-04/19) Assessment & Plan (04/20/2024 11:03 AM EST): Per Alcohol withdrawal section. XR Chest Portable 1 View Result Date: 04/18/2024 1. Bilateral airspace opacities, right greater than left, likely multifocal pneumonia with a differential of pulmonary edema 2. Prominent nodular density in medial part of right lower lung possibly pulmonary nodule Upon presentation, he was started on Vanc, Flagyl, Rocephin. Patient was recently admitted at [facility] [place]HRF and Suicidal ideations. -MRSA PCR pending -CT chest ordered for pulm nodule noted in CXR -Rocephin 1g daily (04/18--04/22) -Vanc (04/18--) -Flagyl (04/18-04/19) Assessment & Plan (04/19/2024 12:45 PM EST): Per Alcohol withdrawal section. XR Chest Portable 1 View Result Date: 04/18/2024 1. Bilateral airspace opacities, right greater than left, likely multifocal pneumonia with a differential of pulmonary edema 2. Prominent nodular density in medial part of right lower lung possibly pulmonary nodule Upon presentation, he was started on Vanc, Flagyl, Rocephin. Patient was recently admitted at [facility] [place]HRF and Suicidal ideations. -MRSA PCR follow up -Consider doing CT chest per CXR impression -Rocephin 1g daily (04/18--04/22) -Vanc (04/18--) -Flagyl (04/18-04/19) Assessment & Plan (04/18/2024 10:04 PM EST): History of GERD, COPD, alcohol withdrawal, appears that has passed out after getting IM Valium. X-ray showed bilateral multifocal pneumonia. Plan: 1-start the patient on ceftriaxone 2 g daily 2-Flagyl 500 every 8 hours 3-Vanco pharmacy to dose until MRSA screen become available For-sputum culture if possible Encounters * This document contains information received from the source organization and may not represent a complete record from that organization. Date Type Department Care Team Description 06/05/2024 2:44 PM EST - 06/16/2024 12:59 PM EST Hospital Encounter [facility] [address] [place] [address] John Mello MD Li, MD Ayleen PhD Sara, MD Kasandra Slaughter, MD Ron Christian, MD Buddy Fonseca Robina, MD Egbuonu, Nonso E., MD Pradeep, Jithu, MD Hebert, Christine M., MD Acute on chronic congestive heart failure, unspecified heart failure type (Primary Dx) Discharge Disposition: Home or Self Care () 05/21/2024 3:56 PM EST - 05/25/2024 2:18 PM EST Hospital Encounter [facility] [address] [place] [id number] Maryanne Reece MD Marchetta, Alexandra, MD El-Hayek, Mikey Serrano MD Chronic obstructive pulmonary disease with acute exacerbation (Primary Dx) Discharge Disposition: Short Term/Acute Care [facility] () 04/29/2024 2:19 PM EST - 05/06/2024 2:31 PM EST Hospital Encounter [facility] [address] [place] [id number] Shanti Ortez MD Aleksandrovich, Yury, MD Madireddy, Shashidhar Reddy, MD Eisenstock, Kimberly D., Nate Barrera, DO Molis, Carissa B, MD Anil Chauhan MD Adaramola, Oluwaseun O., MD COVID (Primary Dx) Discharge Disposition: Home or Self Care () 04/18/2024 11:57 AM EST - 04/24/2024 5:55 PM EST Hospital Encounter [facility] [address] [address] Shanita Matos MD Bradley, Evan S., MD Min, Jonathan C., MD Pereira, MD Kaycee Lopes Michael E, DO Madireddy, Shashidhar Reddy, MD Altered mental status (Primary Dx) Discharge Disposition: Home or Self Care () from Last 3 Months Social History Tobacco Use Types Packs/Day Years Used Date Smoking Tobacco: Every Day Cigarettes Smokeless Tobacco: Never Tobacco Cessation:Ready to Q uit: Not Asked; Counseling Given: Not Answered Alcohol Use Standard Drinks/Week Comments Not Currently 0 (1 standard drink = 0.6 oz pur e alcohol) [facility] Utilities Answer Date Recorded In the past 12 months has e [employer], gas, oil, or water [employer] threatened to shut off services in your home? Patient declined 05/22/2024 Hunger Vital Sign Answer Date Recorded Within the past 12 months, y ou worried that your food would run out before you got the money to buy more. Patient declined Within the past 12 months, t he food you bought just didn't last and you didn't have money to get more. Patient declined 10/2024 Transportation Answer Date Recorded In the past 12 months, has l ack of reliable transportation kept you from medical appointments, meetings, work or from getting things needed for daily living? Yes 05/22/2024 Housing Answer Date Recorded Housing Risk Low 1 05/22/2024 Housing Risk Medium Not on file 05/22/2024 Housing Risk High 1 05/22/2024 What is your living situation today? [email or web address] 05/22/2024 Sex and Gender Information Value Date Recorded Sex Assigned at Male 04/18/2024 1:51 PM EST Legal Sex Male 10:56 AM EST Gender Identity Male 04/18/2024 5:11 PM EST Sexual Orientation Not on file Last Filed Vital Signs Vital Sign Reading Time Taken Comments Blood Pressure 128/69 06/16/2024 7:00 AM EST Pulse 89 06/16/2024 7:00 AM EST Temperature 36.4 ??C (97.5 ??F) 06/16/2024 7:00 AM ES T Respiratory Rate 18 06/16/2024 8:37 AM EST Oxygen Saturation 88% 06/16/2024 8:37 AM EST Inhaled Oxygen Concentration - - Weight 148.6 kg (327 lb 9.7 oz) 06/15/2024 5:49 AM EST Height 178 cm (5' 10.08 ) 06/05/2024 12 :18 PM EST Body Mass Index 46.9 06/05/2024 12:18 PM EST Plan of Treatment Health Maintenance Due Date Last Done Comments Cologuard 1966 Colon Cancer Screening 1966 Colonoscopy 1966 FOBT / Fit Test 1966 HIV Screening 1966 Sigmoidoscopy 1966 Hepatitis B Vaccines (1 of 3 - 19+ 3-dose series) 1985 DTaP,Tdap,and Td Vaccines (1 - Tdap) 1988 Zoster Vaccines (1 of 2) 2016 Pneumococcal Vaccine: 50+ Ye ars (2 of 2 - PCV) 04/23/2020 04/23/2019 COVID-19 Vaccine (2 - 2023-2 5 season) 2023 06/30/2022 Alcohol/Substance Use Screening 04/15/2024 Depression Screening and Follow-Up 04/15/2024 CT Lung Cancer Screening (Baseline) 04/20/2025 04/20/2024, 02/24/2024, 02/24/2024, Additional history exists Social Drivers of Health Negra ual Screening 05/22/2025 05/22/2024 RSV Vaccine (60+ years old a nd patients) (1 - 1-dose 75+ series) 2041 Influenza Vaccine Completed 12/21/2023, 04/23/2019 Abdominal Aortic Aneurysm (A AA) Screening Completed 04/21/2024 Hepatitis C Screening Completed 06/05/2024 Procedures * Due to [place] state law, this organization might not be sharing negative HIV tests. Procedure Name Priority Date/Time Associated Diagnosis Comments MAGNESIUM Routine 06/16/2024 8:26 AM EST BASIC METABOLIC PANEL Routine 06/16/2024 8:26 AM EST CBC AUTO DIFFERENTIAL Timed 06/15/2024 10:41 AM EST MAGNESIUM Routine 06/15/2024 10:41 AM EST BASIC METABOLIC PANEL Routine 06/15/2024 10:41 AM EST LAVENDER TOP Routine 06/14/2024 7:05 AM EST EXTRA TUBES Routine 06/14/2024 7:05 AM EST MAGNESIUM Routine 06/14/2024 6:49 AM EST BASIC METABOLIC PANEL Routine 06/14/2024 6:49 AM EST VANCOMYCIN, TROUGH Timed 06/13/2024 9: 12 PM EST MAGNESIUM Routine 06/13/2024 7:22 AM EST BASIC METABOLIC PANEL Routine 06/13/2024 7:22 AM EST MAGNESIUM Routine 06/12/2024 8:05 AM EST BASIC METABOLIC PANEL Routine 06/12/2024 8:05 AM EST VANCOMYCIN, TROUGH Timed 06/11/2024 7: 45 PM EST PHOSPHORUS Routine 06/11/2024 8:05 AM EST MAGNESIUM Routine 06/11/2024 8:05 AM EST BASIC METABOLIC PANEL Routine 06/11/2024 8:05 AM EST CBC AUTO DIFFERENTIAL Routine 06/11/2024 8:05 AM EST PHOSPHORUS Routine 06/10/2024 7:01 AM EST MAGNESIUM Routine 06/10/2024 7:01 AM EST BASIC METABOLIC PANEL Routine 06/10/2024 7:01 AM EST CBC AUTO DIFFERENTIAL Routine 06/10/2024 7:01 AM EST PHOSPHORUS Routine 06/09/2024 6:13 AM EST MAGNESIUM Routine 06/09/2024 6:13 AM EST BASIC METABOLIC PANEL Routine 06/09/2024 6:13 AM EST CBC AUTO DIFFERENTIAL Routine 06/09/2024 6:13 AM EST TRANSTHORACIC ECHO (TTE) COMPLETE Routine 06/08/2024 10:22 AM EST RENAL FUNCTION PANEL Timed 06/08/2024 7:10 AM EST CBC AUTO DIFFERENTIAL Timed 06/08/2024 7:09 AM EST CBC AUTO DIFFERENTIAL Timed 06/07/2024 7:07 AM EST RENAL FUNCTION PANEL Timed 06/07/2024 7:07 AM EST MRSA/S AUREUS PCR, NASAL Routine 06/06/2024 9:12 AM EST CBC AUTO DIFFERENTIAL Timed 06/06/2024 8:16 AM EST RENAL FUNCTION PANEL Timed 06/06/2024 8:16 AM EST BLOOD GAS, VENOUS Routine 06/05/2024 5:4 6 PM EST TROPONIN T HIGH SENSITIVITY STAT 06/05/2024 4:54 PM EST XR CHEST PORTABLE 1 VIEW STAT 06/05/2024 4:28 PM EST HEPATITIS C ANTIBODY W/REFLEX TO HCV RNA, QUANTITATIVE PCR STAT 06/05/2024 4:23 PM EST N-TERMINAL PROBRAIN NATRIURETIC PEPTIDE STAT 06/05/2024 4:23 PM EST TROPONIN T HIGH SENSITIVITY STAT 06/05/2024 4:23 PM EST COMPREHENSIVE METABOLIC PANEL STAT 06/05/2024 4:23 PM EST CBC AUTO DIFFERENTIAL STAT 06/05/2024 4:23 PM EST ECG 12-LEAD STAT 06/05/2024 4:10 PM EST LOWER LIMB VENOUS DUPLEX: COMPLETE BILATERAL STAT 06/05/2024 3:39 PM EST HEART & VASCULAR - SCANNED 06/05/2024 HEART & VASCULAR - SCANNED 06/05/2024 HEART & VASCULAR - SCANNED 06/05/2024 RENAL FUNCTION PANEL Routine 05/25/2024 8:22 AM EST CBC AUTO DIFFERENTIAL Routine 05/25/2024 8:22 AM EST RENAL FUNCTION PANEL Routine 05/24/2024 7:49 AM EST CBC AUTO DIFFERENTIAL Routine 05/24/2024 7:49 AM EST RENAL FUNCTION PANEL Routine 05/23/2024 7:13 AM EST CBC AUTO DIFFERENTIAL Routine 05/23/2024 7:13 AM EST CBC AUTO DIFFERENTIAL Routine 05/22/2024 6:46 AM EST TROPONIN T HIGH SENSITIVITY Routine 05/22/2024 6:46 AM EST MAGNESIUM Routine 05/22/2024 6:46 AM EST BASIC METABOLIC PANEL Routine 05/22/2024 6:46 AM EST TROPONIN T HIGH SENSITIVITY STAT 05/21/2024 9:24 PM EST TROPONIN T HIGH SENSITIVITY STAT 05/21/2024 7:54 PM EST POCT I-STAT LACTATE W/VBG Routine 05/21/2024 4:53 PM EST N-TERMINAL PROBRAIN NATRIURETIC PEPTIDE STAT 05/21/2024 4:40 PM EST MVL QS - COVID-19, FLU A/B & RSV RNA PCR, SYMPTOMATIC STAT 05/21/2024 4:40 PM EST XR CHEST PORTABLE 1 VIEW STAT 05/21/2024 4:39 PM EST SMEAR REVIEW STAT 05/21/2024 4:34 PM EST PHOSPHORUS STAT 05/21/2024 4:34 PM EST MAGNESIUM STAT 05/21/2024 4:34 PM EST BASIC METABOLIC PANEL STAT 05/21/2024 4:34 PM EST LACTIC ACID, PLASMA W/ REPEAT STAT 05/21/2024 4:34 PM EST CBC AUTO DIFFERENTIAL STAT 05/21/2024 4:34 PM EST ECG 12-LEAD STAT 05/21/2024 4:30 PM EST HEART & VASCULAR - SCANNED 05/21/2024 CBC AUTO DIFFERENTIAL Routine 05/05/2024 8:04 AM EST HEPATIC FUNCTION PANEL Routine 8:04 AM EST BASIC METABOLIC PANEL Routine 05/05/2024 8:04 AM EST MAGNESIUM Routine 05/05/2024 8:04 AM EST CBC AUTO DIFFERENTIAL Routine 05/04/2024 11:28 AM EST HEPATIC FUNCTION PANEL Routine 11:28 AM EST BASIC METABOLIC PANEL Routine 05/04/2024 11:28 AM EST MAGNESIUM Routine 05/04/2024 11:28 AM EST CBC AUTO DIFFERENTIAL Routine 05/03/2024 7:08 AM EST HEPATIC FUNCTION PANEL Routine 7:08 AM EST BASIC METABOLIC PANEL Routine 05/03/2024 7:08 AM EST MAGNESIUM Routine 05/03/2024 7:08 AM EST CBC AUTO DIFFERENTIAL Routine 05/02/2024 9:22 AM EST HEPATIC FUNCTION PANEL Routine 9:22 AM EST BASIC METABOLIC PANEL Routine 05/02/2024 9:22 AM EST MAGNESIUM Routine 05/02/2024 9:22 AM EST SMEAR REVIEW Routine 05/01/2024 9:22 AM EST PHOSPHORUS Routine 05/01/2024 9:22 AM EST CBC AUTO DIFFERENTIAL Routine 05/01/2024 9:22 AM EST HEPATIC FUNCTION PANEL Routine 9:22 AM EST BASIC METABOLIC PANEL Routine 05/01/2024 9:22 AM EST MAGNESIUM Routine 05/01/2024 9:22 AM EST LEGIONELLA ANTIGEN, URINE Routine 05/01/2024 4:50 AM EST STREPTOCOCCUS PNEUMONIAE ANTIGEN URINE Routine 05/01/2024 4:50 AM EST FERRITIN Add-On 04/30/2024 8:21 AM EST IRON SATURATION Add-On 04/30/2024 8:21 AM EST VITAMIN B12 Add-On 04/30/2024 8:21 AM EST IRON, TIBC AND FERRITIN PANEL (5616) Add-On 04/30/2024 8:21 AM EST BASIC METABOLIC PANEL STAT 04/30/2024 8:21 AM EST SMEAR REVIEW Routine 04/30/2024 6:34 AM EST CBC AUTO DIFFERENTIAL Routine 04/30/2024 6:34 AM EST HEPATIC FUNCTION PANEL Routine 6:34 AM EST BASIC METABOLIC PANEL Routine 04/30/2024 6:34 AM EST MAGNESIUM Routine 04/30/2024 6:34 AM EST POCT I-STAT LACTATE W/VBG Routine 04/29/2024 4:00 PM EST STAPHYLOCOCCUS AUREUS SCREEN CULTURE STAT 04/29/2024 3:39 PM EST XR CHEST 2 VW STAT 04/29/2024 12:13 PM EST MVL QS - COVID-19, FLU A/B & RSV RNA PCR, SYMPTOMATIC STAT 04/29/2024 11:48 AM EST BASIC METABOLIC PANEL STAT 04/29/2024 11:48 AM EST CBC AUTO DIFFERENTIAL STAT 04/29/2024 11:48 AM EST ECG 12-LEAD STAT 04/29/2024 11:43 AM EST RAPID COVID-19 RNA FOR SURVEILLANCE (ED ONLY) STAT 04/25/2024 4:51 PM EST COVID-19 PCR FOR SURVEILLANCE OF ASYMPTOMATIC PATIENT Routine 04/24/2024 8:50 AM EST BASIC METABOLIC PANEL Timed 04/24/2024 7:52 AM EST CBC Timed 04/24/2024 7:52 AM EST BASIC METABOLIC PANEL STAT 04/22/2024 8:10 AM EST CBC STAT 04/22/2024 8:[address] ABDOMEN PELVIS W CONTRAST Routine 04/21/2024 8:[address] CHEST WO CONTRAST Routine 04/20/2024 8:42 PM EST from Last 3 Months or Most Recently Relevant to Health Maintenance Results * Due to [place] state law, this organization might not be sharing negative HIV tests. * Magnesium (06/16/2024 8:26 AM EST) Only the most recent of16 resultswithin the time period is included. MG 2.4 1.6 - 2.4 mg/dL 06/16/2024 10:05 AM EST [facility] Blood Structure of peripheral vein / Unknown Venipuncture / Unknown 06/16/2024 8:26 AM EST 06/16/2024 9:05 AM EST us Oswaldo Slaughter MD LAB BLOOD ORDERABLES Fin al Result [facility] [address] [place] [address], [place] * (ABNORMAL) Basic metabolic panel (06/16/2024 8:26 AM EST) Only the most recent of20 resultswithin the time period is included. NA 138 135 - 145 mmol/L 06/16/2024 10:05 AM [facility] K 4.6 3.5 - 5.3 mmol/L 06/16/2024 10:05 AM [facility] Cl 98 98 - 107 mmol/L 06/16/2024 10:05 AM [facility] CO2 25 22 - 32 mmol/L 06/16/2024 10:05 AM [facility] BUN 20 7 - 23 mg/dL 06/16/2024 10:05 AM [facility] Creatinine 0.84 0.60 - 1.30 mg/dL 06/16/2024 10:05 AM [facility] Glucose 124(H) 65 - 99 mg/dL 06/16/2024 10:05 AM [facility] Calcium 9.1 8.6 - 10.5 mg/dL 06/16/2024 10:05 AM [facility] Anion Gap 15 5 - 15 06/16/2024 10:05 AM [facility] eGFR >90 >=60 mL/min/1. 73m2 06/16/2024 10:05 AM [facility] Comment:The estimated glomer ular filtration rate (eGFR) is calculated using a new formula developed by the NKF-ASN task force to eliminate race-based correction factors. The new formula uses serum/plasma creatinine, age, and gender to determine eGFR. A value below 60mls/min might indicate kidney disease and will be flagged. For additional information, see Lucia chung al, Am J Kidney Dis. 2021;79(2):268- 288, A Unifying Approach for GFR estimation: Recommendations of the NKF-ASN Task Force on Reassessing the Inclusion of Race in Diagnosing Kidney Disease . Blood Structure of peripheral vein / Unknown Venipuncture / Unknown 06/16/2024 8:26 AM EST 06/16/2024 9:05 AM EST us Oswaldo Slaughter MD LAB BLOOD ORDERABLES Fin al Result [facility] [address] [place] [address], [place] * (ABNORMAL) CBC Auto Differential (06/15/2024 10:41 AM EST) Only the most recent of20 resultswithin the time period is included. WBC 6.4 3.8 - 10.8 10*3/uL 06/15/2024 11:02 AM EST [facility] RBC 4.63 4.20 - 5.80 10*6/uL 06/15/2024 11:02 AM EST [facility] Hemoglobin 10.1(L) 13.2 - 17.1 g/dL 06/15/2024 11:02 AM EST [facility] Hematocrit 35.2(L) 38.5 - 50.0 % 06/15/2024 11:02 AM EST [facility] MCV 76.0(L) 80.0 - 100.0 fL 06/15/2024 11:02 AM EST [facility] MCH 21.8(L) 27.0 - 33.0 pg 06/15/2024 11:02 AM EST [facility] MCHC 28.7(L) 32.0 - 36.0 g/dL 06/15/2024 11:02 AM EST [facility] RDW 18.6(H) 11.0 - 15.0 % 06/15/2024 11:02 AM EST [facility] Platelets 279 140 - 400 10*3/uL 06/15/2024 11:02 AM EST [facility] MPV 10.0 7.5 - 12.5 fL 06/15/2024 11:02 AM [facility] Neutrophil % 63.3 % 06/15/2024 11:02 AM [facility] Immature Grans % 0.3 0.0 - 0.9 % 06/15/2024 11:02 AM [facility] Lymphocyte % 22.3 % 06/15/2024 11:02 AM [facility] Monocyte % 10.6 % 06/15/2024 11:02 AM [facility] Eosinophil % 2.7 % 06/15/2024 11:02 AM [facility] Basophil % 0.8 % 06/15/2024 11:02 AM [facility] Neutrophil # 4.06 1.50 - 7.80 10*3/uL 06/15/2024 11:02 AM [facility] Immature Grans # <0.03 <=0.03 10*3/uL 06/15/2024 11:02 AM [facility] Lymphocyte # 1.40 0.85 - 3.90 10*3/uL 06/15/2024 11:02 AM [facility] Monocyte # 0.70 0.20 - 0.95 10*3/uL 06/15/2024 11:02 AM [facility] Eosinophil # 0.20 0.02 - 0.50 10*3/uL 06/15/2024 11:02 AM [facility] Basophil # 0.10 0.00 - 0.20 10*3/uL 06/15/2024 11:02 AM [facility] nRBC % 0.0 /100 WBCs 06/15/2024 11:02 AM [facility] nRBC # <0.01 <0.01 10*3/uL 06/15/2024 11:02 AM EST [facility] Blood Structure of peripheral vein / Unknown Venipuncture / Unknown 06/15/2024 10:41 AM EST 06/15/2024 10:52 AM EST us Giulia Winston MD LAB BLOOD ORDERABLES Claudette l Result Performing Organization Address City/[facility]/ZIP Co de Phone Number [facility] [address] [place] [address], [place] * Lavender Top (06/14/2024 7:05 AM EST) Extra Tube Hold for add-ons. 06/14/2024 12:05 PM EST [facility] Comment:Auto resulted. Blood Structure of peripheral vein / Unknown 06/14/2024 7:05 AM EST 06/14/2024 7:05 AM EST Serafin Leung MD LAB BLOOD ORDERABLES Final R esult Performing Organization Address [facility] de Phone Number [facility] [address] [place] [address], * (ABNORMAL) Vancomycin, Trough (06/13/2024 9:12 PM EST) Only the most recent of2 resultswithin the time period is included. Vancomycin Trough <4.0(L) 10.0 - 20.0 ug/mL 06/13/2024 9:54 PM EST [facility] Comment: Before interpreting a drug level, check the time the dose was given in the MAR to ensure the level was drawn appropriately. 10-15 ug/mL: Empiric/Mild infections 15-20 ug/mL: Severe MRSA infection (pneumonia, meningitis, endocarditis) Blood Structure of peripheral vein / Unknown Venipuncture / Unknown 06/13/2024 9:12 PM EST 06/13/2024 9:21 PM EST us Uma Flannery NP LAB BLOOD ORDERABLES Final Resu lt Performing Organization Address City/[facility] Co de Phone Number [facility] [address] [place] [address], * Phosphorus (06/11/2024 8:05 AM EST) Only the most recent of5 resultswithin the time period is included. Phosphorus 3.1 2.5 - 4.5 mg/dL 06/11/2024 9:18 AM EST [facility] Blood Structure of peripheral vein / Unknown Venipuncture / Unknown 06/11/2024 8:05 AM EST 06/11/2024 8:29 AM EST us Oswaldo Slaughter MD LAB BLOOD ORDERABLES Fin al Result Performing Organization Address [facility] Co de Phone Number [facility] [address] [place] [address], [place] * TRANSTHORACIC ECHO (TTE) COMPLETE (06/08/2024 10:22 AM EST) BSA 2.55 m2 LVIDD 5.7 cm LVIDS 3.9 cm IVS 0.9 cm LVOT diameter 2.7 cm LVOT area 5.72 cm2 Relative Wall Thickness 0.28 PW 0.8 cm LV Mass Index 74 g/m2 MV Peak E Moses 1.15 m/s MV avg E/e' 8.19 MV Peak A Moses 0.91 m/s E/A ratio 1.30 Lateral e' 0.15 m/s E wave deceleration time 222.0 msec Septal e' 0.13 m/s MV E/E' Tissue Velocity Lateral 7.52 LA Volume Index 36 mL/m2 MV E/e' septal 8.98 LA volume 94 mL LVOT peak moses 1.27 m/s LVOT stroke volume 140 cm3 LV stroke vol index 53.9 mL/m2 LA size 4.8 cm AV mean gradient 13 mmHg AV peak gradient 27 mmHg Ao peak moses 2.6 m/s Ao VTI 46.70 cm LVOT peak VTI 24.40 cm AV VALVE AREA INDEX 1.20 cm2/m2 AV valve area 3.00 cm2 AV area pk moses 2.8 cm2 AV Doppler moses index pk moses 0.49 AV Velocity Ratio 0.52 LV ED Post Wall 0.80 LV ES Dimension 3.90 LV ED Dimension 5.70 Aortic Valve Diam 2.7 cm RIGHT ATRIAL PRESSURE 15 mmHg Sinus 3.9 cm Aortic Root Z-score -0.21 Dummy BSA 2.55 Anatomical Region Laterality Modality Heart Echocardiography Narrative 06/08/2024 1:49 PM EST ?Normal biventricular systolic function. ?Mild aortic stenosis. A prior echocardiogram was not available for direct comparison. Left Ventricle The left ventricle size is normal. Normal left ventricular wall thickness. Left ventricular mass index is normal. Normal left ventricular wall motion. Normal left ventricular systolic function. Left ventricular ejection fraction is in the normal range with visually estimated LVEF 65%. Estimated left ventricular filling pressure is normal. Right Ventricle Right ventricle size is normal. Normal right ventricular systolic function. Left Atrium Left atrium is mildly dilated. Left atrium volume index is 36 mL/m2. Right Atrium The right atrium is dilated. IVC/SVC IVC diameter is greater than 21 mm and decreases less than 50% during inspiration; therefore the estimated right atrial pressure is elevated (~15 mmHg). Mitral Valve Mildly thickened mitral leaflets. No mitral regurgitation. No mitral stenosis. Tricuspid Valve Mildly thickened tricuspid leaflets. Trace tricuspid regurgitation. No tricuspid stenosis. Aortic Valve There is a trileaflet aortic valve. Trace aortic regurgitation. Mild aortic stenosis. Pulmonic Valve Pulmonic valve not well visualized. Ascending Aorta The sinuses of Valsalva is normal. Pericardium No pericardial effusion. Pulmonary Artery TR jet was inadequate to estimate pulmonary artery pressure. Atrial Septum No interatrial shunt detected by color flow Doppler. Ventricular Septum Ventricular septum is intact. Study Details A complete echo was performed using 2D imaging, color flow Doppler and complete spectral Doppler. During the study the apical, parasternal, subcostal and suprasternal view was captured. Overall the study quality was adequate. us Sukhjinder Ruiz MD CV ECHO PROCEDURES Final Result * Renal function panel (06/08/2024 7:10 AM EST) Only the most recent of6 resultswithin the time period is included. NA 143 135 - 145 mmol/L 06/08/2024 8:24 AM [facility] K 4.6 3.5 - 5.3 mmol/L 06/08/2024 8:24 AM [facility] Cl 101 98 - 107 mmol/L 06/08/2024 8:24 AM [facility] CO2 32 22 - 32 mmol/L 06/08/2024 8:24 AM [facility] Anion Gap 10 5 - 15 06/08/2024 8:24 AM [facility] Glucose 93 65 - 99 mg/dL 06/08/2024 8:24 AM [facility] BUN 13 7 - 23 mg/dL 06/08/2024 8:24 AM [facility] Creatinine 0.76 0.60 - 1.30 mg/dL 06/08/2024 8:24 AM [facility] Calcium 8.6 8.6 - 10.5 mg/dL 06/08/2024 8:24 AM [facility] Phosphorus 3.3 2.5 - 4.5 mg/dL 06/08/2024 8:24 AM [facility] Albumin 4.0 3.5 - 5.2 g/dL 06/08/2024 8:24 AM [facility] eGFR >90 >=60 mL/min/1. 73m2 06/08/2024 8:24 AM [facility] Comment:The estimated glomer ular filtration rate (eGFR) is calculated using a new formula developed by the NKF-ASN task force to eliminate race-based correction factors. The new formula uses serum/plasma creatinine, age, and gender to determine eGFR. A value below 60mls/min might indicate kidney disease and will be flagged. For additional information, see Lucia et al, Am J Kidney Dis. 2021;79(2):268- 288, A Unifying Approach for GFR estimation: Recommendations of the NKF-ASN Task Force on Reassessing the Inclusion of Race in Diagnosing Kidney Disease . Blood Structure of peripheral vein / Unknown Venipuncture / Unknown 06/08/2024 7:10 AM EST 06/08/2024 7:16 AM EST Sukhjinder Ruiz MD LAB BLOOD ORDERABLES Final Resu lt [facility] [address] [place] [address], * (ABNORMAL) MRSA/S aureus PCR, Nasal (06/06/2024 9:12 AM EST) Pathologist [facility] MRSA PCR, Nasal NOT DETECTED NOT DETECTED 06/07/2024 9:32 AM EST [facility] S. aureus PCR, Nasal DETECTED(A) NOT DETECTED 06/07/2024 9:32 AM EST [facility] Swab Nasal structure / Unknown Non-Blood Collection / Unknown 06/06/2024 9:12 AM EST 06/06/2024 9:19 AM EST Narrative [facility] - 06/07/2024 9:32 AM EST [facility] Received Date: Sukhjinder Ruiz MD LAB BODY FLUIDS AND STOOLS JENSEN EDEN Final Result Performing Organization Address City/[facility] Co de Phone Number [facility] [address], [place] [address], [facility] [address], [place] [address], [place] [phone] * (ABNORMAL) Blood gas, venous (06/05/2024 5:46 PM EST) Pathologist [facility] pH, Venous 7.36 7.31 - 7.41 06/05/2024 5:54 PM EST [facility] pCO2, Venous 65.0(H) 41.0 - 51.0 mm[Hg] 06/05/2024 5:54 PM EST [facility] pO2, Yovani 223.0(H) 35.0 - 40.0 mm[Hg] 06/05/2024 5:54 PM EST [facility] HCO3, Venous 37(H) 22 - 26 mmol/L 06/05/2024 5:54 PM EST [facility] O2 Sat, Venous 93.1(H) 70.0 - 75.0 % 06/05/2024 5:54 PM EST [facility] Base Excess, Yovani 9.2(H) -3.0 - 3.0 mmol/L 06/05/2024 5:54 PM EST [facility] Blood Structure of peripheral vein / Unknown Venipuncture / Unknown 06/05/2024 5:46 PM EST 06/05/2024 5:49 PM EST us John Mello MD LAB BLOOD ORDERABLES Final Re sult [facility] [address] [place] [address], [place] * (ABNORMAL) Repeat Troponin #1 (06/05/2024 4:54 PM EST) Only the most recent of5 resultswithin the time period is included. Troponin T High Sensitivity 34(H) <=21 ng/L 06/05/2024 5:39 PM EST [facility] Comment: Qu-Srzkuirv-W level of 52 ng/L or higher at 0-hour at presentation is recommended by the ESC 0/1-hour algorithm for identifying patients at high risk for ruling in acute myocardial infarction (AMI) in the appropriate clinical context. Repeat troponin testing 1-3 hours after the initial sample may be helpful in assessing for ongoing myocardial injury. Troponin elevations can be seen in several other non-infarct conditions, and the change (delta) should be evaluated in line with the 4th [place] Definition of AMI. Troponin baseline and serial elevation for a significant delta should be interpreted with clinical presentation, history, signs and symptoms, ECG, and biomarker concentrations. For inpatient setting: Value <12ng/L is considered negative for all genders. 0-1hr: A delta change of <3 will be considered negative/flat if chest pain onset >3 hours 0-3hr: A delta change of <7 will be considered negative/flat Blood Structure of peripheral vein / Unknown Venipuncture / Unknown 06/05/2024 4:54 PM EST 06/05/2024 4:59 PM EST us John Mello MD LAB BLOOD ORDERABLES Final Re sult [facility] [address] [place] [address], [place] * XR Chest Portable 1 View (06/05/2024 4:28 PM EST) Only the most recent of2 resultswithin the time period is included. Anatomical Region Laterality Modality Body Computed Radiogr aphy 06/05/2024 4:37 PM EST Impressions 06/05/2024 4:39 PM EST Bibasilar atelectasis. ??Lungs are otherwise clear. No pneumothorax or pleural effusion. Unremarkable cardiomediastinal silhouette. No acute bony abnormality. If this radiology report contains a blank impression section, it is an incomplete radiology report. ??Please contact the interpreting radiologist or applicable radiology division as soon as possible to obtain the completed interpretation. ? Workstation ID: [id number] Narrative 06/05/2024 4:39 PM EST COMPARISON: Chest x-ray 05/21/2024 FINDINGS AND Resulting Agency Comment [id number] Procedure Note Brady Kahn MD - 06/05/2024 COMPARISON: Chest x-ray 05/21/2024 FINDINGS AND IMPRESSION: Bibasilar atelectasis. Lungs are otherwise clear. No pneumothorax or pleural effusion. Unremarkable cardiomediastinal silhouette. No acute bony abnormality. If this radiology report contains a blank impression section, it is anincomplete radiology report. Please contact the interpreting radiologistor applicable radiology division as soon as possible to obtain thecompleted interpretation. Workstation ID: [id number] us John Mello MD IMG XR PROCEDURES Final Resul t * N-terminal ProBrain Natriuretic Peptide (06/05/2024 4:23 PM EST) Only the most recent of2 resultswithin the time period is included. Pro-B-Type Natriuretic Peptide <36 <300 pg/mL 06/05/2024 5:23 PM EST [facility] Comment: Patient Age:? Congestive Heart Failure (CHF) Risk <18 Years:?Not Established 18-49 Years:? <300 pg/mL - Normal, CHF Unlikely ?>=450 pg/mL - High Probability of CHF 50-75 Years:? <300 pg/mL - Normal, CHF Unlikely ?>=900 pg/mL - High Probability of CHF >75 Years:?<300 pg/mL - Normal, CHF Unlikely ?>=1800 pg/mL - High Probability of CHF Blood Structure of peripheral vein / Unknown Venipuncture / Unknown 06/05/2024 4:23 PM EST 06/05/2024 4:44 PM EST John Mello MD LAB BLOOD ORDERABLES Final Re sult Performing Organization Address City/[facility]/ZIP Co de Phone Number [facility] [address] [place] [address], [place] * Hepatitis C Antibody w/Reflex to HCV RNA, Quantitative PCR (06/05/2024 4:23 PM EST) Pathologist [facility] Hepatitis C Antibody NON-REACT BRISSA NON-REACT BRISSA 06/06/2024 9:01 AM EST [facility] Comment: HCV antibody was non-reactive. There is no laboratory evidence of HCV infection. In most cases, no further action is required. However, if recent HCV exposure is suspected, a test for HCV RNA (test code 73697) is suggested. For additional information please refer to http://education.Chute/faq/TOE62b0 (This link is being provided for informational/ educational purposes only.) Blood Structure of peripheral vein / Unknown Venipuncture / Unknown 06/05/2024 4:23 PM EST 06/05/2024 4:44 PM EST Narrative [facility] - 06/06/2024 9:01 AM EST [facility] Received Date: John Mello MD LAB BLOOD ORDERABLES Final Re sult Performing Organization Address City/[facility]/ZIP Co de Phone Number [facility] [address], [place] [address], [place] [phone] [facility] [address], [place] [address], [place] [phone] * (ABNORMAL) CMP - Comprehensive Metabolic Panel (06/05/2024 4:23 PM EST) Pathologist [facility] NA 139 135 - 145 mmol/L 06/05/2024 5:23 PM EST [facility] K 4.5 3.5 - 5.3 mmol/L 06/05/2024 5:23 PM [facility] Cl 102 98 - 107 mmol/L 06/05/2024 5:23 PM [facility] CO2 30 22 - 32 mmol/L 06/05/2024 5:23 PM [facility] Anion Gap 7 5 - 15 06/05/2024 5:23 PM [facility] Glucose 97 65 - 99 mg/dL 06/05/2024 5:23 PM [facility] Creatinine 0.87 0.60 - 1.30 mg/dL 06/05/2024 5:23 PM [facility] Calcium 8.6 8.6 - 10.5 mg/dL 06/05/2024 5:23 PM [facility] Total Protein 6.6 6.0 - 8.0 g/dL 06/05/2024 5:23 PM [facility] Albumin 3.7 3.5 - 5.2 g/dL 06/05/2024 5:23 PM [facility] Bilirubin, Total <0.2(L) 0.2 - 1.2 mg/dL 06/05/2024 5:23 PM [facility] Alkaline Phosphatase 85 35 - 129 U/L 06/05/2024 5:23 PM [facility] AST 27 10 - 40 U/L 06/05/2024 5:23 PM [facility] ALT 23 10 - 40 U/L 06/05/2024 5:23 PM [facility] BUN 13 7 - 23 mg/dL 06/05/2024 5:23 PM [facility] eGFR >90 >=60 mL/min/1 .73m2 06/05/2024 5:23 PM [facility] Comment:The estimated glomer ular filtration rate (eGFR) is calculated using a new formula developed by the NKF-ASN task force to eliminate race-based correction factors. The new formula uses serum/plasma creatinine, age, and gender to determine eGFR. A value below 60mls/min might indicate kidney disease and will be flagged. For additional information, see Lucia chung al, Am J Kidney Dis. 2021;79(2):268- 288, A Unifying Approach for GFR estimation: Recommendations of the NKF-ASN Task Force on Reassessing the Inclusion of Race in Diagnosing Kidney Disease . Globulin, Total 2.9 2.1 - 4.2 g/dL 06/05/2024 5:23 PM EST [facility] A/G Ratio 1.3(L) 1.5 - 3.0 06/05/2024 5:23 PM EST [facility] Blood Structure of peripheral vein / Unknown Venipuncture / Unknown 06/05/2024 4:23 PM EST 06/05/2024 4:44 PM EST us John Mello MD LAB BLOOD ORDERABLES Final Re sult [facility] [address] [place] [address], * ECG 12 lead (06/05/2024 4:10 PM EST) Only the most recent of3 resultswithin the time period is included. Ventricular Rate EKG 62 BPM MUSE EKG Atrial Rate 62 BPM MUSE EKG FL Interval 146 ms MUSE EKG QRS Interval 84 ms MUSE EKG QT Interval 416 ms MUSE EKG QTC Interval 422 ms MUSE EKG P [place] 55 degrees MUSE EKG R [place] 43 degrees MUSE EKG T Wave [place] 42 degrees MUSE EKG 06/05/2024 4:10 PM EST 06/06/2024 11:54 AM EST Impressions MUSE EKG - 06/06/2024 11:54 AM EST NORMAL SINUS RHYTHM WHEN COMPARED WITH ECG OF 21-MAY-2024 16:30, PREMATURE ATRIAL COMPLEXES ARE NO LONGER PRESENT Confirmed by Paulo Landry ([id number]) on 06/06/2024 11:54:04 AM us John Mello MD ECG ORDERABLES Final Result MUSE EKG * LOWER LIMB VENOUS DUPLEX: COMPLETE BILATERAL (06/05/2024 3:39 PM EST) Anatomical Region Laterality Modality Lower Extremities Ultrasound Narrative 06/05/2024 4:36 PM EST ?The right common femoral vein, proximal profunda femoris vein, femoral vein, popliteal vein, posterior tibial veins, peroneal veins, and proximal great saphenous vein were patent and without thrombosis. ?The left common femoral vein, proximal profunda femoris vein, femoral vein, popliteal vein, posterior tibial veins, peroneal veins, and proximal great saphenous vein were patent and without thrombosis. ?Visualization of the bilateral posterior tibial and peroneal veins was limited due to body habitus and edema. When compared to the study dated 02/23/2024, there has been no significant change. ?? Lower Venous Duplex Right Right Proximal Common Femoral: patent; fully compressible; normal phasicity Right Distal Common Femoral: patent; fully compressible Right Proximal Profunda Femoral: patent; fully compressible Right Proximal Femoral: patent; fully compressible Right Mid Femoral: patent; fully compressible Right Distal Femoral: patent; fully compressible Right Popliteal: patent; fully compressible Right Posterior Tibial: patent; fully compressible Right Peroneal: patent; fully compressible Right Great Saphenous - Saphenofemoral Junction: patent; fully compressible Right Great Saphenous - Proximal Thigh: patent; fully compressible Right Small Saphenous - Proximal: patent; fully compressible Lower Venous Duplex Left Left Proximal Common Femoral: patent; fully compressible; normal phasicity Left Distal Common Femoral: patent; fully compressible Left Proximal Profunda Femoral: patent; fully compressible Left Proximal Femoral: patent; fully compressible Left Mid Femoral: patent; fully compressible Left Distal Femoral: patent; fully compressible Left Popliteal: patent; fully compressible Left Posterior Tibials: patent; fully compressible Left Peroneals: patent; fully compressible Left Great Saphenous - Saphenofemoral Junction: patent; fully compressible Left Great Saphenous - Proximal Thigh: patent; fully compressible Left Small Saphenous - Proximal: patent; fully compressible us John Mello MD CV VASCULAR PROCEDURES Final Result * HEART & VASCULAR - SCANNED (06/05/2024) Only the most recent of4 resultswithin the time period is included. Anatomical Region Laterality Modality Other us Onbase Scan [facility] SCANNED PROCEDURES Final Resu lt * (ABNORMAL) POCT I-STAT Lactate W/VBG, interfaced (05/21/2024 4:53 PM EST) Only the most recent of2 resultswithin the time period is included. Sample Type, POCT Venous 05/21/2024 4:58 PM EST [facility] Lactate, POCT 0.69(L) 0.9 - 1.7 mmol/L 05/21/2024 4:58 PM EST [facility] pH, POCT 7.37 7.31 - 7.41 pH 05/21/2024 4:58 PM EST [facility] pCO2, POCT 51.6(H) 41 - 51 mm Hg 05/21/2024 4:58 PM [facility] pO2, POCT 62(H) 35 - 40 mm Hg 05/21/2024 4:58 PM EST [facility] Base Excess, POCT 4(H) 0 - 3 mmol/L 05/21/2024 4:58 PM [facility] HCO3, POCT 29.7(H) 23 - 28 mmol/L 05/21/2024 4:58 PM EST [facility] TCO2, POCT 31(H) 24 - 29 mmol/L 05/21/2024 4:58 PM [facility] Saturated O2, POCT 90(H) 70 - 75 % 05/21/2024 4:58 PM EST [facility] Naresh's Test, POCT N/A 05/21/2024 4:58 PM EST [facility] Blood 05/21/2024 4:53 PM EST 05/21/2024 4:58 PM EST Maryanne Reece MD LAB POCT ORDERABLES - RIVER CE Final Result [facility] [address] [place] [address], * COVID-19, Flu A/B & RSV RNA PCR, Symptomatic (05/21/2024 4:40 PM EST) Only the most recent of2 resultswithin the time period is included. PCR, SARS CoV-2 RNA Not Detected Not Detected [facility] 05/21/2024 5:46 PM EST [facility] Comment:A Not Detected (Nega tive) test result is indicative of the absence of SARS-CoV-2 RNA at the level of LoD (Limit of Detection). A negative result does not rule out the possibility of COVID-19 and should not be used as the sole basis for treatment or patient management decisions. If COVID-19 is still suspected, based on exposure history together with other clinical findings, re-testing should be considered. Flu A RNA PCR Not Detected Not Detected [facility]PGient[facility] GENEXPERT 05/21/2024 5:46 PM EST [facility] Comment:Negative results do not preclude infection and should not be used as the sole basis for diagnosis, treatment or other patient management decisions. Negative results must be combined with clinical observations, patient history, and/or epidemiological information. Flu B RNA PCR Not Detected Not Detected [facility] GENEXPERT 05/21/2024 5:46 PM EST [facility] Comment:Negative results do not preclude infection and should not be used as the sole basis for diagnosis, treatment or other patient management decisions. Negative results must be combined with clinical observations, patient history, and/or epidemiological information. RSV RNA PCR Not Detected Not Detected [facility] GENEXP[facility] 05/21/2024 5:[address] [facility] Comment:Negative results do not preclude infection and should not be used as the sole basis for diagnosis, treatment or other patient management decisions. Negative results must be combined with clinical observations, patient history, and/or epidemiological information. Swab (Nares) Non-Blood Collection / Unknown 05/21/2024 4:40 PM EST 05/21/2024 4:48 PM EST Narrative [facility] - 05/21/2024 5:46 PM EST This test was developed, validated and its performance characteristics determined by [facility]. This test has not been cleared or approved by the U.S. Food and Drug Administration (FDA). FDA Policy for Diagnostic Tests for Coronavirus Disease-2019 during the Public Health Emergency issued June 29, 2019, is followed. Maryanne Reece MD LAB BODY FLUIDS AND STOOLS ORDERABLES Final Result Performing Organization Address City/[facility]/ZIP Co de Phone Number [facility] [address] [place] [address], [place] * Smear Review (05/21/2024 4:34 PM EST) Only the most recent of3 resultswithin the time period is included. Platelet Estimate Adequate Adequate 05/21/2024 5:28 PM EST [facility] RBC Morphology Normal Normal, No clinically significant RBC morphology present (ICSH guidelines, 2015). 05/21/2024 5:28 PM EST [facility] Blood Structure of peripheral vein / Unknown Venipuncture / Unknown 05/21/2024 4:34 PM EST 05/21/2024 4:43 PM EST Maryanne Reece MD LAB BLOOD ORDERABLES Final Result [facility] [address] [place] [address], * Lactic Acid, Plasma (w/Reflex if >2) (05/21/2024 4:34 PM EST) Lactic Acid 0.8 0.5 - 1.9 mmol/L 05/21/2024 5:11 PM EST [facility] Blood Structure of peripheral vein / Unknown Venipuncture / Unknown 05/21/2024 4:34 PM EST 05/21/2024 4:43 PM EST us Maryanne Reece MD LAB BLOOD ORDERABLES Final Result [facility] [address] [place] [address], * (ABNORMAL) Hepatic Function Panel (05/05/2024 8:04 AM EST) Only the most recent of6 resultswithin the time period is included. Total Protein 6.7 6.0 - 8.0 g/dL 05/05/2024 9:17 AM EST [facility] Albumin 3.7 3.5 - 5.2 g/dL 05/05/2024 9:17 AM EST [facility] Globulin, Total 3.0 2.1 - 4.2 g/dL 05/05/2024 9:17 AM EST [facility] Bilirubin, Total 0.2 0.2 - 1.2 mg/dL 05/05/2024 9:17 AM EST [facility] Bilirubin, Direct <0.1 <=0.4 mg/dL 05/05/2024 9:17 AM EST [facility] Alkaline Phosphatase 73 35 - 129 U/L 05/05/2024 9:17 AM EST [facility] AST 19 10 - 40 U/L 05/05/2024 9:17 AM EST [facility] ALT 13 10 - 40 U/L 05/05/2024 9:17 AM EST [facility] Bilirubin, Indirect 05/05/2024 9:17 AM EST [facility] Comment:Unable to calculate A/G Ratio 1.2(L) 1.5 - 3.0 05/05/2024 9:17 AM EST [facility] [employer] [facility] Blood Structure of peripheral vein / Unknown Venipuncture / Unknown 05/05/2024 8:04 AM EST 05/05/2024 8:33 AM EST Bhagrav Roberts MD LAB BLOOD ORDERABLES Claudette l Result Performing Organization Address City/[facility]/ZIP Co de Phone Number [facility] [address] [place] [address], [place] * Streptococcus Pneumoniae Antigen Urine (05/01/2024 4:50 AM EST) Streptococcus pneumoniae Antigen, Urine Negative Negative [facility] 05/01/2024 5:28 AM EST [facility] [employer] [facility] Urine Urine specimen collection, clean catch / Unknown Non-Blood Collection / Unknown 05/01/2024 4:50 AM EST 05/01/2024 5:03 AM EST Yuki Worthy MD LAB URINE ORDERABLES Fi nal Result Performing Organization Address [facility] Co de Phone Number [facility] [employer] [facility] [address] [place] [address], * Legionella Antigen, Urine (05/01/2024 4:50 AM EST) Legionella Pneumophilia Urine AG Negative Negative [facility] 05/01/2024 5:28 AM EST [facility] Comment:This assay is specif ic for Legionella pneumophila serogroup 1 and can be detected in urine within 2 - 3 days of infection. This assay does not detect other Legionella species or serogroups. Urine Urine specimen collection, clean catch / Unknown Non-Blood Collection / Unknown 05/01/2024 4:50 AM EST 05/01/2024 5:03 AM EST Yuki Worthy MD LAB URINE ORDERABLES Fi nal Result [facility] [address] [place] [address] * (ABNORMAL) Iron Saturation (04/30/2024 8:21 AM EST) Iron Saturation 4(L) 20 - 50 % 12:58 AM EST [facility] Iron 15(L) 45 - 160 ug/dL 05/01/2024 12:58 AM EST [facility] Transferrin 288 200 - 360 mg/dL 05/01/2024 12:58 AM EST [facility] Total Iron Binding Capacity 360 255 - 450 ug/dL 05/01/2024 12:58 AM EST [facility] Blood Structure of peripheral vein / Unknown Venipuncture / Unknown 04/30/2024 8:21 AM EST 04/30/2024 8:30 AM EST us Yuki Worthy MD LAB BLOOD ORDERABLES Fi nal Result Performing Organization Address [facility]/ZIP Co de Phone Number [facility] [address] [place] [address], * (ABNORMAL) Ferritin (04/30/2024 8:21 AM EST) Ferritin 21.9(L) 23.0 - 336.0 ng/mL 05/01/2024 12:58 AM EST [facility] Blood Structure of peripheral vein / Unknown Venipuncture / Unknown 04/30/2024 8:21 AM EST 04/30/2024 8:30 AM EST [employer] Worthy MD LAB BLOOD ORDERABLES Fi nal Result [facility] [address] [place] [address], * Vitamin B12 (04/30/2024 8:21 AM EST) Vitamin B12 315 232 - 1,245 pg/mL 05/01/2024 12:58 AM EST [facility] Blood Structure of peripheral vein / Unknown Venipuncture / Unknown 04/30/2024 8:21 AM EST 04/30/2024 8:30 AM EST Yuki Worthy MD LAB BLOOD ORDERABLES Fi nal Result [facility] [address] [place] [address], * Staph Aureus Screen Culture (04/29/2024 3:39 PM EST) Culture No Staphylococcus aureus isolated 05/02/2024 5:44 AM EST [facility] Swab Nasal structure / Unknown Non-Blood Collection / Unknown 04/29/2024 3:39 PM EST 04/29/2024 4:22 PM EST Narrative [facility] - 05/02/2024 5:44 AM EST [facility] Received Date: MICRO NUMBER: [id number] SPECIMEN QUALITY: Adequate SOURCE: SWAB NOSE STATUS: FINAL Rocio Blanc MD LAB MICROBIOLOGY - [facility] JENSEN HARMON Final Result Performing Organization Address City/[facility]/ZIP Co de Phone Number [facility] [address], [place] [address], [facility] [address], [place] [address], * X-Ray Chest 2 Views (04/29/2024 12:13 PM EST) Anatomical Region Laterality Modality Body Computed Radiogr aphy 04/29/2024 12:5 8 PM EST Impressions 04/29/2024 1:00 PM EST Bibasilar atelectasis versus consolidation.. If this radiology report contains a blank impression section, it is an incomplete radiology report. ??Please contact the interpreting radiologist or applicable radiology division as soon as possible to obtain the completed interpretation. ? Workstation ID: [id number] Narrative 04/29/2024 1:00 PM EST XR CHEST 2 VW INDICATION: Cough, pneumonia COMPARISON: CT chest 04/20/2024 FINDINGS: Underexpanded lungs. Ill-defined linear densities in bilateral lower lungs, possibly atelectasis versus consolidation. Pulmonary vasculature is normal. No pneumothorax or large pleural effusion. Cardiac size is normal. Cardiomediastinal silhouette is maintained. No acute displaced fracture in the visualized bones. ??Thoracic vertebral body heights are preserved. Resulting Agency Comment [id number] Procedure Note Shiva Bryant MD - 04/29/2024 XR CHEST 2 VW INDICATION: Cough, pneumonia COMPARISON: CT chest 04/20/2024 FINDINGS: Underexpanded lungs. Ill-defined linear densities in bilateral lower lungs, possiblyatelectasis versus consolidation. Pulmonary vasculature is normal. No pneumothorax or large pleural effusion. Cardiac size is normal. Cardiomediastinal silhouette is maintained. No acute displaced fracture in the visualized bones. Thoracic vertebralbody heights are preserved. IMPRESSION: Bibasilar atelectasis versus consolidation.. If this radiology report contains a blank impression section, it is anincomplete radiology report. Please contact the interpreting radiologistor applicable radiology division as soon as possible to obtain thecompleted interpretation. Workstation ID: [id number] Shanti Ortez MD IMG XR PROCEDURES Fi nal Result * Rapid COVID-19 RNA for Surveillance (04/25/2024 4:51 PM EST) PCR, SARS CoV-2 RNA Not Detected Not Detected [facility] GEN[facility] 04/25/2024 5:[address] [facility] Comment:A Not Detected (Nega tive) test result is indicative of the absence of SARS-CoV-2 RNA at the level of LoD (Limit of Detection). A negative result does not rule out the possibility of COVID-19 and should not be used as the sole basis for treatment or patient management decisions. If COVID-19 is still suspected, based on exposure history together with other clinical findings, re-testing should be considered. Swab (Nares) Non-Blood Collection / Unknown 04/25/2024 4:51 PM EST 04/25/2024 4:59 PM EST [facility] - 04/25/2024 5:35 PM EST This test was developed, validated and its performance characteristics determined by [facility]. This test has not been cleared or approved by the U.S. Food and Drug Administration (FDA). FDA Policy for Diagnostic Tests for Coronavirus Disease-2019 during the Public Health Emergency issued June 29, 2019, is followed. Mynor Vargas MD LAB BODY FLUIDS AND STOOLS ORDERABLES Final Result [facility] [address] [place] [address], * Asymptomatic COVID-19 RNA (04/24/2024 8:50 AM EST) PCR, SARS CoV-2 RNA Not Detected Not Detected [facility] GEN[facility] 04/24/2024 9:[address] [facility] Comment:A Not Detected (Nega tive) test result is indicative of the absence of SARS-CoV-2 RNA at the level of LoD (Limit of Detection). A negative result does not rule out the possibility of COVID-19 and should not be used as the sole basis for treatment or patient management decisions. If COVID-19 is still suspected, based on exposure history together with other clinical findings, re-testing should be considered. Swab (Nares) Non-Blood Collection / Unknown 04/24/2024 8:50 AM EST 04/24/2024 8:57 AM EST [facility] - 04/24/2024 9:41 AM EST This test was developed, validated and its performance characteristics determined by [facility]. This test has not been cleared or approved by the U.S. Food and Drug Administration (FDA). FDA Policy for Diagnostic Tests for Coronavirus Disease-2019 during the Public Health Emergency issued June 29, 2019, is followed. Nikolai Gonsalez MD LAB BODY FLUIDS AN D STOOLS ORDERABLES Final Result [email or web address]ITAL[facility] [address] [place] [address], [place] * (ABNORMAL) CBC (04/24/2024 7:52 AM EST) Only the most recent of2 resultswithin the time period is included. WBC 9.2 3.8 - 10.8 10*3/uL 04/24/2024 8:15 AM EST [email or web address] RBC 5.65 4.20 - 5.80 10*6/uL 04/24/2024 8:15 AM EST [facility] Hemoglobin 12.3(L) 13.2 - 17.1 g/dL 04/24/2024 8:15 AM EST [facility] Hematocrit 41.1 38.5 - 50.0 % 04/24/2024 8:15 AM EST [facility] MCV 72.7(L) 80.0 - 100.0 fL 04/24/2024 8:15 AM EST [facility] MCH 21.8(L) 27.0 - 33.0 pg 04/24/2024 8:15 AM EST [facility] MCHC 29.9(L) 32.0 - 36.0 g/dL 04/24/2024 8:15 AM EST [facility] RDW 17.2(H) 11.0 - 15.0 % 04/24/2024 8:15 AM EST [facility] Platelets 337 140 - 400 10*3/uL 04/24/2024 8:15 AM EST [email or web address] MPV 10.1 7.5 - 12.5 fL 04/24/2024 8:15 AM EST [facility] Blood Structure of peripheral vein / Unknown Venipuncture / Unknown 04/24/2024 7:52 AM EST 04/24/2024 8:08 AM EST Nikolai Gonsalez MD LAB BLOOD ORDERABL ES Final Result [facility] [address] [place] [address], [place] * CT Abdomen Pelvis with Contrast (04/21/2024 8:37 PM EST) Anatomical Region Laterality Modality Body Computed Tomogra phy 04/22/2024 6:55 AM EST Impressions 04/22/2024 9:27 AM EST 1. Limited by significant streak artifact. 2. 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 3. Dilated cisterna chylii and several low density mesenteric lymph nodes which most probably is reflective of slow lymphatic transit. 4. Hiatal hernia with lower esophageal wall thickening and evidence of gastroesophageal reflux plus minus esophagitis 5. Status post gastric bypass with distended bowel anastomosis. 6. Additional details as above. COMMUNICATION: Per written report If this radiology report contains a blank impression section, it is an incomplete radiology report. ??Please contact the interpreting radiologist or applicable radiology division as soon as possible to obtain the completed interpretation. ? Workstation ID: [id number] Narrative 04/22/2024 9:27 AM EST EXAMINATION: ?? CT abdomen and pelvis, with oral and intravenous contrast. INDICATION: Abdominal mass. TECHNIQUE: Multiple axial images are obtained from the symphysis pubis to the diaphragm. Oral and intravenous contrast is administered. ??2-D sagittal and coronal reformats were created. For radiation dose control at least one of the following techniques was used in this procedure (1) Automated exposure control (2) Adjustment of the mA and/or kV according to patient size (3) Use of iterative reconstruction technique. COMPARISON: Chest CT 04/20/2024 ?? FINDINGS: Significantly limited by metallic streak artifact from bilateral total hip arthroplasty. AMMONIA BOX OPERATOR TOPOGRAM: As below LUNG BASES: Motion degraded. Bibasilar thin-walled air cysts. Patchy bibasilar atelectasis. Right gynecomastia. Please see formal chest CT concurrently for full thoracic details. LIVER: Homogeneously enhancing without focal lesion. Patent portal hepatic veins. GALLBLADDER: Contracted with dependent calcified gallstones.. BILIARY TREE: Normal caliber. SPLEEN: Normal size, homogeneously enhancing. PANCREAS: Unremarkable. ADRENAL GLANDS: 4.7 cm left adrenal mass primarily composed of fat with an attenuated lateral limb. Unremarkable right adrenal gland. KIDNEYS: Symmetric excretion. Indeterminate left lower pole hypodensity too small to characterize, partially medullary in location. No hydronephrosis or nephrolithiasis. VESSELS: Normal caliber aorta and IVC with normal enhancement for this vascular phase. Spotty aortoiliac calcification. GI TRACT: Small hiatal hernia with lower esophageal wall thickening that is somewhat eccentric. CT evidence of extra esophageal reflux with contrast in the lower esophageal lumen. Operative changes in the stomach consistent with fluid and mild gastric bypass with a patulous, patent left upper quadrant small bowel anastomosis. The stomach is decompressed. Small bowel contents are static. Contrast traverses the small bowel and is present to the level of the hepatic flexure. Cecal bascule in the right upper quadrant. Left colonic diverticulosis without acute diverticulitis. Peritoneum anastomosis in the mid sigmoid segment. Pelvic bowel is completely obscured by streak artifact. PELVIC ORGANS: Grossly unremarkable urinary bladder best seen on the sagittal reformats.. PERITONEUM-RETROPERITONEUM: No ascites or pneumoperitoneum. LYMPHADENOPATHY: 3.2 cm tubular retrocrural fluid filled structure which most probably represents a dilated cisterna chylii. Low-density lymph nodes are present within the leaves of the small bowel mesentery some borderline in size. SOFT TISSUES: Right gynecomastia. Midline abdominal incision. Laxity of the inguinal rings bilaterally. BONES: Multilevel degenerative discogenic and proliferative changes particularly in the mid to lower lumbar spine with endplate sclerosis. Scattered Schmorl's nodes. Sclerotic foci in the left sacrum consistent with bone island. Bilateral total hip arthroplasty with areas of cortical thinning. Several acetabular screws project outside the cortical bone. Resulting Agency Comment [id number] Procedure Note AmeCarol Ann witt MD - 04/22/2024 EXAMINATION: CT abdomen and pelvis, with oral and intravenous contrast. INDICATION: Abdominal mass. TECHNIQUE: Multiple axial images are obtained from the symphysis pubis to thediaphragm. Oral and intravenous contrast is administered. 2-D sagittaland coronal reformats were created. For radiation dose control at least one of the following techniques wasused in this procedure (1) Automated exposure control (2) Adjustment ofthe mA and/or kV according to patient size (3) Use of iterativereconstruction technique. COMPARISON: Chest CT 04/20/2024 FINDINGS: Significantly limited by metallic streak artifact from bilateraltotal hip arthroplasty. AMMONIA BOX OPERATOR TOPOGRAM: As below LUNG BASES: Motion degraded. Bibasilar thin-walled air cysts. Patchybibasilar atelectasis. Right gynecomastia. Please see formal chest CTconcurrently for full thoracic details. LIVER: Homogeneously enhancing without focal lesion. Patent portal hepaticveins. GALLBLADDER: Contracted with dependent calcified gallstones.. BILIARY TREE: Normal caliber. SPLEEN: Normal size, homogeneously enhancing. PANCREAS: Unremarkable. ADRENAL GLANDS: 4.7 cm left adrenal mass primarily composed of fat with anattenuated lateral limb. Unremarkable right adrenal gland. KIDNEYS: Symmetric excretion. Indeterminate left lower pole hypodensitytoo small to characterize, partially medullary in location. Nohydronephrosis or nephrolithiasis. VESSELS: Normal caliber aorta and IVC with normal enhancement for thisvascular phase. Spotty aortoiliac calcification. GI TRACT: Small hiatal hernia with lower esophageal wall thickening that is somewhateccentric. CT evidence of extra esophageal reflux with contrast in thelower esophageal lumen. Operative changes in the stomach consistent with fluid and mild gastricbypass with a patulous, patent left upper quadrant small bowelanastomosis. The stomach is decompressed. Small bowel contents arestatic. Contrast traverses the small bowel and is present to the level of thehepatic flexure. Cecal bascule in the right upper quadrant. Left colonicdiverticulosis without acute diverticulitis. Peritoneum anastomosis in themid sigmoid segment. Pelvic bowel is completely obscured by streakartifact. PELVIC ORGANS: Grossly unremarkable urinary bladder best seen on thesagittal reformats.. PERITONEUM-RETROPERITONEUM: No ascites or pneumoperitoneum. LYMPHADENOPATHY: 3.2 cm tubular retrocrural fluid filled structure whichmost probably represents a dilated cisterna chylii. Low-density lymphnodes are present within the leaves of the small bowel mesentery someborderline in size. SOFT TISSUES: Right gynecomastia. Midline abdominal incision. Laxity ofthe inguinal rings bilaterally. BONES: Multilevel degenerative discogenic and proliferative changesparticularly in the mid to lower lumbar spine with endplate sclerosis.Scattered Schmorl's nodes. Sclerotic foci in the left sacrum consistentwith bone island. Bilateral total hip arthroplasty with areas of corticalthinning. Several acetabular screws project outside the cortical bone. IMPRESSION: 1. Limited by significant streak artifact. 2. Left adrenal myolipoma or lipid rich adenoma correlating to the mass onchest CT. 3. Dilated cisterna chylii and several low density mesenteric lymph nodeswhich most probably is reflective of slow lymphatic transit. 4. Hiatal hernia with lower esophageal wall thickening and evidence ofgastroesophageal reflux plus minus esophagitis 5. Status post gastric bypass with distended bowel anastomosis. 6. Additional details as above. COMMUNICATION: Per written report If this radiology report contains a blank impression section, it is anincomplete radiology report. Please contact the interpreting radiologistor applicable radiology division as soon as possible to obtain thecompleted interpretation. Workstation ID: [id number] Nikolai Gonsalez MD IMG CT PROCEDURES Final Result * CT Chest without Contrast (04/20/2024 8:42 PM EST) Anatomical Region Laterality Modality Body Computed Tomogra phy 04/21/2024 7:34 AM EST Impressions 04/21/2024 7:45 AM EST 1. ??Ill-defined peribronchial nodular and groundglass opacities in the right upper lobe, some of which demonstrate internal cavitation, may be infectious/inflammatory in etiology. ??A follow-up CT chest is recommended in 2-3 months to reassess. 2. ??Scattered areas of subsegmental consolidations in both lower lobes, may represent multifocal pneumonia versus atelectasis. ??Comparison with prior imaging if available, would be worthwhile. 3. ??No intrathoracic lymphadenopathy or pleural effusions. ?? 4. ??Partially imaged 5.4 cm relatively well-defined fat attenuation area posterior to the stomach and in the region of left adrenal gland, incompletely characterized. ??Differential diagnoses includes area of fat necrosis versus adrenal myelolipoma. ??Consider dedicated CT abdomen for further characterization. If this radiology report contains a blank impression section, it is an incomplete radiology report. ??Please contact the interpreting radiologist or applicable radiology division as soon as possible to obtain the completed interpretation. ? Workstation ID: [id number] Narrative 04/21/2024 7:45 AM EST Indication: ??Lung nodule, > 8mm - Prominent nodular density in medial part of right lower lung possibly pulmonary nodule., Comparison: Chest radiograph 04/18/2024. Technique: CT scan of the chest was performed without the administration of intravenous contrast material. Axial, coronal and sagittal MPRs, axial MIP and coronal MinIP reformations were performed. Dose: For radiation dose control at least one of the following techniques was used in this procedure (1) Automated exposure control (2) Adjustment of the mA and/or kV according to patient size (3) Use of iterative reconstruction technique. FINDINGS: Neck and thoracic inlet: No abnormality. Mediastinum and large vessels: ? Aorta Mild aortic wall calcifications. ??Common origin of the right brachiocephalic and left common carotid arteries, an anatomic variant. Pulmonary arteries Pulmonary artery is not dilated. ?? Esophagus Small hiatal hernia. ??Postsurgical changes from probable prior Leandra fundoplication., Other mediastinal findings None. Heart: Cardiac size Heart size is normal. Coronary arteries Mild coronary calcifications. Valves Mild aortic valve calcifications. ?? Pericardium No pericardial effusion. Lymph nodes: Supraclavicular and axillary Normal sized lymph nodes, no enlarged lymph nodes. Mediastinal Normal sized lymph nodes, no enlarged lymph nodes. Hilar Unremarkable hilar contours. Absence of intravenous contrast limits evaluation. Others None. Lung parenchyma: Bilateral upper lobe predominant centrilobular emphysema. ??Scattered areas of subsegmental consolidations in both lower lobes. ??Ill-defined peribronchial nodular and groundglass opacities in the right upper lobe, some of which demonstrate central cavitation, for example, 6 mm right upper lobe nodule (203:97) with internal cavitation and another 4 mm right upper lobe groundglass nodule with cavitation (203:104). ?? Airways: Moderate thickening and irregularities of the airway dhillon. ??Central airways are clear. Pleura: No pleural effusions or pneumothorax. Upper abdomen: A 5.4 cm relatively well-defined fat attenuation area posterior to the stomach and in the region of left adrenal gland (202:296). ??Absence of intravenous contrast limits sensitivity for detecting solid organ findings. Chest wall: No chest wall mass. Bones and soft tissues: No suspicious lytic or blastic lesions. ??Multilevel degenerative changes in the spine. ?? Resulting Agency Comment [id number] Procedure Note Anastasiia Mcnamara MD - 04/21/2024 Indication: Lung nodule, > 8mm - Prominent nodular density in medial partof right lower lung possibly pulmonary nodule., Comparison: Chest radiograph 04/18/2024. Technique: CT scan of the chest was performed without the administrationof intravenous contrast material. Axial, coronal and sagittal MPRs, axialMIP and coronal MinIP reformations were performed. Dose: For radiation dose control at least one of the following techniqueswas used in this procedure (1) Automated exposure control (2) Adjustmentof the mA and/or kV according to patient size (3) Use of iterativereconstruction technique. FINDINGS: Neck and thoracic inlet: No abnormality. Mediastinum and large vessels: Aorta Mild aortic wall calcifications. Common origin of the rightbrachiocephalic and left common carotid arteries, an anatomic variant. Pulmonary arteries Pulmonary artery is not dilated. Esophagus Small hiatal hernia. Postsurgical changes from probable prior Nissenfundoplication., Other mediastinal findings None. Heart: Cardiac size Heart size is normal. Coronary arteries Mild coronary calcifications. Valves Mild aortic valve calcifications. Pericardium No pericardial effusion. Lymph nodes: Supraclavicular and axillary Normal sized lymph nodes, no enlarged lymph nodes. Mediastinal Normal sized lymph nodes, no enlarged lymph nodes. Hilar Unremarkable hilar contours. Absence of intravenous contrast limitsevaluation. Others None. Lung parenchyma: Bilateral upper lobe predominant centrilobular emphysema. Scattered areasof subsegmental consolidations in both lower lobes. Ill-definedperibronchial nodular and groundglass opacities in the right upper lobe,some of which demonstrate central cavitation, for example, 6 mm rightupper lobe nodule (203:97) with internal cavitation and another 4 mm rightupper lobe groundglass nodule with cavitation (203:104). Airways: Moderate thickening and irregularities of the airway dhillon. Centralairways are clear. Pleura: No pleural effusions or pneumothorax. Upper abdomen: A 5.4 cm relatively well-defined fat attenuation area posterior to thestomach and in the region of left adrenal gland (202:296). Absence ofintravenous contrast limits sensitivity for detecting solid organfindings. Chest wall: No chest wall mass. Bones and soft tissues: No suspicious lytic or blastic lesions. Multilevel degenerative changesin the spine. IMPRESSION: 1. Ill-defined peribronchial nodular and groundglass opacities in theright upper lobe, some of which demonstrate internal cavitation, may beinfectious/inflammatory in etiology. A follow-up CT chest is recommendedin 2-3 months to reassess. 2. Scattered areas of subsegmental consolidations in both lower lobes,may represent multifocal pneumonia versus atelectasis. Comparison withprior imaging if available, would be worthwhile. 3. No intrathoracic lymphadenopathy or pleural effusions. 4. Partially imaged 5.4 cm relatively well-defined fat attenuation areaposterior to the stomach and in the region of left adrenal gland,incompletely characterized. Differential diagnoses includes area of fatnecrosis versus adrenal myelolipoma. Consider dedicated CT abdomen forfurther characterization. If this radiology report contains a blank impression section, it is anincomplete radiology report. Please contact the interpreting radiologistor applicable radiology division as soon as possible to obtain thecompleted interpretation. Workstation ID: [id number] Nikolai Gonsalez MD IMG CT PROCEDURES Final Result from Last 3 Months or Most Recently Relevant to Health Maintenance Insurance [facility] [employer] MCR Advance Directives Documents on File Type Date Recorded Patient Compliance Officer Expl anation Health Care Proxy 04/20/2024 3:47 PM Ira Castro 2024 * Full Code (Latest Code Status on File) Date Activated Date Inactivated Comments 06/05/2024 8:01 PM 06/16/2024 3:04 PM * Full Code Date Activated Date Inactivated Comments 05/21/2024 11:31 PM 05/25/2024 4:19 PM * Full Code Date Activated Date Inactivated Comments 04/29/2024 4:37 PM 05/06/2024 4:36 PM * Full Code Date Activated Date Inactivated Comments 04/29/2024 4:36 PM 04/29/2024 4:37 PM * Full Code Date Activated Date Inactivated Comments 04/18/2024 10:30 PM 04/24/2024 8:00 PM Healthcare Agents on File Name Relationship Healthcare Agent Relationshi p Communication Ira Castro Sister Health Care Agent Care Teams Disability Coordinator Relationship Specialty Start Date End Date Patient, Has No Pcp Or Ref DO NOT EDIT THIS RECORD VIA PROVIDER ON THE FLY PCP - General Kiln Burner 04/17/24
--- OUTSIDE RECORDS SUMMARY | 2024-07-21 08:11 | XMS_ITS | Referral Summary ---
Author Organization [facility] Address [address] [place] [address] Care Team Providers Care Color Grinder Name Role Phone Patient, Has No Pcp Or Ref Primary Care Provider Unavailable Encounters * This document contains information received from the source organization and may not represent a complete record from that organization. Date Type Department Care Team Description 06/05/2024 2:44 PM EST - 06/16/2024 12:59 PM EST Hospital Encounter [facility] [address] [place] [address] John Mello MD Li, MD Ayleen PhD Sara, MD Kasandra Slaughter, MD Ron Christian Maria I, MD Yaqub, Robina, MD Egbuonu, Nonso E., MD Pradeep, Jithu, MD Hebert, Christine M., MD Acute on chronic congestive heart failure, unspecified heart failure type (Primary Dx) Discharge Disposition: Home or Self Care () 05/21/2024 3:56 PM EST - 05/25/2024 2:18 PM EST Hospital Encounter [facility] [address] [place] [address] Maryanne Reece MD Marchetta, Alexandra, MD El-Hayek, Andrew P, MD Chronic obstructive pulmonary disease with acute exacerbation (Primary Dx) Discharge Disposition: Short Term/Acute Care [facility] () 04/29/2024 2:19 PM EST - 05/06/2024 2:31 PM EST Hospital Encounter [facility] [address] [place] [id number] Shanti Ortez MD Aleksandrovich, Yury, MD Madireddy, Shashidhar Reddy, MD Eisenstock, Kimberly D., MD Patel, Bhavin B., Carissa Gonzalez MD Pradeep, Jithu, MD Adaramola, MD LOUISE Phillips (Primary Dx) Discharge Disposition: Home or Self Care () 04/18/2024 11:57 AM EST - 04/24/2024 5:55 PM EST Hospital Encounter [facility] [address] [address] Shanita Matos MD Bradley, Evan S., MD Guy, MD Zaynab Hilario, Yuki Queen, Mynor Parker, DO Gonsalez, Nikolai French MD Altered mental status (Primary Dx) Discharge Disposition: Home or Self Care () from Last 3 Months Allergies No known active allergies Medications * [...] day. 30 capsule 06/16/2024 11:56 AM EST Active pregabalin (LYRICA) 75 mg capsule Take 1 capsule (75 mg total) by mouth 3 times a day. 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 On discharge: -prednisone 40mg daily through 05/26 -Ambulatory pulmonology referral placed Assessment & Plan (05/24/2024 10:55 AM EST): Patient with COPD presenting from [facility] for hypoxia after he was found [...] a PCP but does not have a telegraph repeater installer, may benefit from outpatient referral to decrease incidence of hospitalization. 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 nightly Patient discharged to [facility] program, they will be assisting him with transitional housing. Discussed with patient that he will need a primary care doctor and he states [facility] program has been helping him organize that. [...] several hospital admissions for withdrawal, presented from [facility] of acute hypoxic respiratory failure 2/2 [...] several hospital admissions for withdrawal, presented from [facility] of acute hypoxic respiratory failure 2/2 [...] several hospital admissions for withdrawal, presented from [facility] of acute hypoxic respiratory failure 2/2 COPDe. He has been on a 2 day detox from cocaine and alcohol. Reports last use was 05/20. Was given 10 mg of Valium by [facility] due to withdrawal symptoms and CIWA 10. -CIWA with rescue valium -continue home clonidine 0.1mg 3 times a day prn -thiamine, folic acid, Mag Assessment & Plan (05/22/2024 1:21 PM EST): History of cocaine and OUD with several hospital admissions for withdrawal, presented from [facility] of acute hypoxic respiratory failure 2/2 COPDe. He has been on a 2 day detox from cocaine and alcohol. Reports last use was 05/20. Was given 10 mg of Valium by [facility] due to withdrawal symptoms and CIWA 10. -CIWA with rescue valium -continue home clonidine 0.1mg 3 times a day prn -thiamine, folic acid, Mag Assessment & Plan (05/05/2024 11:43 AM EST): History of cocaine and OUD with several hospital admissions for withrawal, presented from [facility] (Section [facility]) in the setting of COVID. 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 Established with [facility]. Utox was positive only for cocaine on [...] psychotropic medications. Transferred to the hospital from [facility] under Section 21. Was evaluated by [...] psychotropic medications. Transferred to the hospital from [facility] under [facility] 21. Was evaluated by [...] psychotropic medications. Transferred to the hospital from [facility] under Section 21. I am unclear [...] psychotropic medications. Transferred to the hospital from [facility] under Section 21. I am unclear [...] psychotropic medications. Transferred to the hospital from [facility] under Section 21. I am unclear at this time if he is also under Section 12 (hospitalized for SI 02/2024). Will need to clarify with psychiatry CL here - HOLD loxapine 100 mg [not noted in [facility] MAR] - Continue Zyprexa 10 mg daily [[facility]] - Hydroxyzine 25 mg every 8 hours as needed - Pregabalin 75 mg three times a day - Formal psych evaluation requested to help clarify Section and medications Assessment & Plan (04/24/2024 11:29 AM EST): No home meds, although patient has Clonidine as prescribed in the past for anxiety PRN. Was hospitalized at [facility] with suicidal ideations & ACRHF in Feb 2024. -Clonidine 0.1 mg 3 times a day PRN Assessment & Plan (04/23/2024 9:51 AM EST): No home meds, although patient has Clonidine as prescribed in the past for anxiety PRN. Was hospitalized at [facility] with suicidal ideations & ACRHF in Feb 2024. -Clonidine 0.1 mg 3 times a day PRN Assessment & Plan (04/22/2024 9:22 AM EST): No home meds, although patient has Clonidine as prescribed in the past for anxiety PRN. Was hospitalized at [facility] with suicidal ideations & ACRHF in Feb 2024. -Clonidine 0.1 mg 3 times a day PRN Assessment & Plan (04/21/2024 9:58 AM EST): No home meds, although patient has Clonidine as prescribed in the past for anxiety PRN. Was hospitalized at [facility] with suicidal ideations & ACRHF in Feb 2024. -Clonidine 0.1 mg 3 times a day PRN Assessment & Plan (04/20/2024 11:03 AM EST): No home meds, although patient has Clonidine as prescribed in the past for anxiety PRN. Was hospitalized at [facility] with suicidal ideations & ACRHF in Feb 2024. -Clonidine 0.1 mg 3 times a day PRN Assessment & Plan (04/19/2024 12:45 PM EST): No home meds, although patient has Clonidine as prescribed in the past for anxiety PRN. Was hospitalized at [facility] with suicidal ideations & ACRHF in Feb [...] to re-establish care with PCP. He said [facility] program is helping him with this as [...] (05/22/2024 1:21 PM EST): Patient presenting from [facility] with acute hypoxia, placed on 4L. [...] 11:29 AM EST): Patient was brought from [facility] due to developing altered mental status (lethargy) after x1 valium for alcohol withdrawal. Immediately became hypoxic with aspiration episode and briefly needed supplemental oxygen, then was sent to [facility] for evaluation. Patient's mental status was back to baseline on 04/18 PM. Last drink was 04/16/24 prior to admission to [facility] on same day. CT head neg. -CIWA protocol with Ativan, discontinued as pt non-scoring -Folic acid & thiamine PO daily -Seizure precautions -SW consulted for AUD. Assessment & Plan (04/23/2024 9:51 AM EST): Patient was brought from [facility] due to developing altered mental status (lethargy) after x1 valium for alcohol withdrawal. Immediately became hypoxic with aspiration episode and briefly needed supplemental oxygen, then was sent to [facility] for evaluation. Patient's mental status was back to baseline on 1/4 PM. Last drink was 04/16/24 prior to admission to [facility] on same day. CT head neg. -CIWA protocol with Ativan, discontinued as pt non-scoring -Folic acid & thiamine PO daily -Seizure precautions -SW consulted for AUD. Assessment & Plan (04/22/2024 9:22 AM EST): Patient was brought from [facility] due to developing altered mental status (lethargy) after x1 valium for alcohol withdrawal. Immediately became hypoxic with aspiration episode and briefly needed supplemental oxygen, then was sent to [facility] for evaluation. Patient's mental status was back to baseline on 1/4 PM. Last drink was 04/16/24 prior to admission to [facility] on same day. CT head neg. -CIWA protocol with Ativan, discontinued as pt non-scoring -Folic acid & thiamine PO daily -Seizure precautions -SW consulted for AUD. Assessment & Plan (04/21/2024 9:58 AM EST): Patient was brought from [facility] due to developing altered mental status (lethargy) after x1 valium for alcohol withdrawal. Immediately became hypoxic with aspiration episode and briefly needed supplemental oxygen, then was sent to [facility] for evaluation. Patient's mental status was back to baseline on 1/4 PM. Last drink was 04/16/24 prior to admission to [facility] on same day. CT head neg. -CIWA protocol with Ativan, discontinued as pt non-scoring -Folic acid & thiamine PO daily -Seizure precautions -SW consulted for AUD. Assessment & Plan (04/20/2024 11:03 AM EST): Patient was brought from [facility] due to developing altered mental status (lethargy) after x1 valium for alcohol withdrawal. Immediately became hypoxic with aspiration episode and briefly needed supplemental oxygen, then was sent to [facility] for evaluation. Patient's mental status was back to baseline on 14 PM. Last drink was 04/16/24 prior to admission to [facility] on same day. CT head neg. -CIWA protocol with Ativan -Folic acid & thiamine PO daily -Seizure precautions -SW consulted for AUD. Assessment & Plan (04/19/2024 12:45 PM EST): Patient was brought from [facility] due to developing altered mental status (lethargy) after x1 valium for alcohol withdrawal. Immediately became hypoxic with aspiration episode and briefly needed supplemental oxygen, then was sent to [facility] for evaluation. Patient's mental status was back to baseline on 14 PM. Last drink was 04/16/24 prior to admission to [facility] on same day. CT head neg. -CIWA protocol with Ativan -Folic acid & thiamine PO daily -Seizure precautions -SW consulted for alcoholism. Assessment & Plan (04/18/2024 9:52 PM EST): 58 years old male, chronic alcohol abuse and GERD, transferred from [facility]. Patient has been admitted for alcohol detoxification, patient received Valium and post therapy developed respiratory distress, developed hypoxia and transferred to [facility] via EMS Plan: 1-CIWA protocol 2- replacement [...] Flagyl, Rocephin. Patient was recently admitted at [facility] for AHRF and Suicidal ideations. -04/20/24 CT [...] Flagyl, Rocephin. Patient was recently admitted at [facility] for AHRF and Suicidal ideations. -04/20/24 CT [...] Flagyl, Rocephin. Patient was recently admitted at [facility] for AHRF and Suicidal ideations. -04/20/24 CT [...] Flagyl, Rocephin. Patient was recently admitted at [facility] for AHRF and Suicidal ideations. -04/20/24 CT [...] Flagyl, Rocephin. Patient was recently admitted at [facility] for AHRF and Suicidal ideations. -MRSA PCR [...] Flagyl, Rocephin. Patient was recently admitted at [facility] for AHRF and Suicidal ideations. -MRSA PCR [...] g daily 2-Flagyl 500 every 8 hours 3-Vanc pharmacy to dose until MRSA screen become available For-sputum culture if possible Social History Tobacco Use Types Packs/Day Years Used Date Smoking Tobacco: Every Day Cigarettes Smokeless Tobacco: Never Tobacco Cessation:Ready to Q uit: Not Asked; Counseling Given: Not Answered Alcohol Use Standard Drinks/Week Comments Not Currently 0 (1 standard drink = 0.6 oz pur e alcohol) [facility] Utilities Answer Date Recorded In the past 12 months has th e [employer], gas, oil, or water [employer] threatened to shut off services in your [...] 06/05/2024 12:18 PM EST Plan of Treatment Not on file Procedures * Due to [place] state law, this organization might not be [...] 9:22 AM EST HEPATIC FUNCTION PANEL Routine 5 9:22 AM EST BASIC METABOLIC PANEL Routine [...] to Health Maintenance Results * Due to [place] state law, this organization might not be sharing negative HIV tests. * Magnesium (06/16/2024 8:26 AM EST) Only the most recent of16 resultswithin the time period is included. MG 2.4 1.6 - 2.4 mg/dL 06/16/2024 10:05 AM EST [facility] Blood Structure of peripheral vein / Unknown Venipuncture / Unknown 06/16/2024 8:26 AM EST 06/16/2024 9:05 AM EST us Oswaldo Slaughter MD LAB BLOOD ORDERABLES Fin al Result [facility] [address] [place] [id number], * (ABNORMAL) Basic metabolic panel (06/16/2024 8:26 AM EST) Only the most recent of20 resultswithin the time period is included. Pathologist [facility] NA 138 135 - 145 mmol/L 06/16/2024 10:05 AM [facility] K 4.6 3.5 - 5.3 mmol/L 06/16/2024 10:05 AM [facility] Cl 98 98 - 107 mmol/L 06/16/2024 10:05 AM [facility] CO2 25 22 - 32 mmol/L 06/16/2024 10:05 AM [facility] BUN 20 7 - 23 mg/dL 06/16/2024 10:05 AM [facility] Creatinine 0.84 0.60 - 1.30 mg/dL 06/16/2024 10:05 AM [facility] Glucose 124(H) 65 - 99 mg/dL 06/16/2024 10:05 AM [facility] Calcium 9.1 8.6 - 10.5 mg/dL 06/16/2024 10:05 AM [facility] Anion Gap 15 5 - 15 06/16/2024 10:05 AM EST [facility] eGFR >90 >=60 mL/min/1. 73m2 06/16/2024 10:05 AM EST [facility] Comment:The estimated glomer ular [...] MD LAB BLOOD ORDERABLES Fin al Result [facility] [address] [place] [id number], * (ABNORMAL) CBC Auto Differential (06/15/2024 10:41 AM EST) Only the most recent of20 resultswithin the time period is included. WBC 6.4 3.8 - 10.8 10*3/uL 06/15/2024 11:02 AM EST [facility] RBC 4.63 4.20 - 5.80 10*6/uL 06/15/2024 11:02 AM EST [facility] Hemoglobin 10.1(L) 13.2 - 17.1 g/dL 06/15/2024 11:02 AM EST [facility] Hematocrit 35.2(L) 38.5 - 50.0 % 06/15/2024 11:02 AM [facility] MCV 76.0(L) 80.0 - 100.0 fL 06/15/2024 11:02 AM [facility] MCH 21.8(L) 27.0 - 33.0 pg 06/15/2024 11:02 AM [facility] MCHC 28.7(L) 32.0 - 36.0 g/dL 06/15/2024 11:02 AM [facility] RDW 18.6(H) 11.0 - 15.0 % 06/15/2024 11:02 AM [facility] Platelets 279 140 - 400 10*3/uL 06/15/2024 11:02 AM [facility] MPV 10.0 7.5 - 12.5 fL 06/15/2024 11:02 AM [facility] Neutrophil % 63.3 % 06/15/2024 11:02 AM [facility] Immature Grans % 0.3 0.0 - 0.9 % 06/15/2024 11:02 AM [facility] Lymphocyte % 22.3 % 06/15/2024 11:02 AM [facility] Monocyte % 10.6 % 06/15/2024 11:02 AM [facility] Eosinophil % 2.7 % 06/15/2024 11:02 AM [facility] Basophil % 0.8 % 06/15/2024 11:02 AM [facility] Neutrophil # 4.06 1.50 - 7.80 10*3/uL 06/15/2024 11:02 AM [facility] Immature Grans # <0.03 <=0.03 10*3/uL 06/15/2024 11:02 AM [facility] Lymphocyte # 1.40 0.85 - 3.90 10*3/uL 06/15/2024 11:02 AM EST [facility] Monocyte # 0.70 0.20 - 0.95 10*3/uL 06/15/2024 11:02 AM EST [facility] Eosinophil # 0.20 0.02 - 0.50 10*3/uL 06/15/2024 11:02 AM EST [facility] Basophil # 0.10 0.00 - 0.20 10*3/uL 06/15/2024 11:02 AM EST [facility] nRBC % 0.0 /100 WBCs 06/15/2024 11:02 AM EST [facility] nRBC # <0.01 <0.01 10*3/uL 06/15/2024 11:02 AM EST [facility] Blood Structure of peripheral vein / Unknown Venipuncture / Unknown 06/15/2024 10:41 AM EST 06/15/2024 10:52 AM EST us Giulia Winston MD LAB BLOOD ORDERABLES Claudette l Result Performing Organization Address City/[facility]/ZIP Co de Phone Number [facility] [address] [place] [address], [place] * Lavender Top (06/14/2024 7:05 AM EST) Extra Tube Hold for add-ons. 06/14/2024 12:05 PM EST [facility] Comment:Auto resulted. Blood Structure of peripheral vein / Unknown 06/14/2024 7:05 AM EST 06/14/2024 7:05 AM EST us Serafin Leung MD LAB BLOOD ORDERABLES Final R esult Performing Organization Address City/[facility]/ZIP Co de Phone Number [facility] [address] [place] [address], [place] * (ABNORMAL) Vancomycin, Trough (06/13/2024 9:12 PM EST) Only the most recent of2 resultswithin the time period is included. Pathologist [facility] Vancomycin Trough <4.0(L) 10.0 - 20.0 ug/mL 06/13/2024 9:54 PM EST [facility] Comment: Before interpreting a [...] ORDERABLES Final Resu lt Performing Organization Address City/[facility]/ZIP Co de Phone Number [facility] [address] [place] [address], * Phosphorus (06/11/2024 8:05 AM EST) Only the most recent of5 resultswithin the time period is included. Pathologist [facility] Phosphorus 3.1 2.5 - 4.5 mg/dL 06/11/2024 9:18 AM EST [facility] Blood Structure of peripheral vein / Unknown Venipuncture / Unknown 06/11/2024 8:05 AM EST 06/11/2024 8:29 AM EST us Oswaldo Slaughter MD LAB BLOOD ORDERABLES Fin al Result Performing Organization Address City/[facility]/ZIP Co de Phone Number [facility] [address] [place] [address], [place] * TRANSTHORACIC ECHO (TTE) COMPLETE (06/08/2024 10:22 AM EST) Pathologist [facility] BSA 2.55 m2 LVIDD 5.7 cm LVIDS [...] 135 - 145 mmol/L 06/08/2024 8:24 AM [facility] K 4.6 3.5 - 5.3 mmol/L 06/08/2024 8:24 AM EST [facility] Cl 101 98 - 107 mmol/L 06/08/2024 8:24 AM EST [facility] CO2 32 22 - 32 mmol/L 06/08/2024 8:24 AM [facility] Anion Gap 10 5 - 15 06/08/2024 8:24 AM EST [facility] Glucose 93 65 - 99 mg/dL 06/08/2024 8:24 AM EST [facility] BUN 13 7 - 23 mg/dL 06/08/2024 8:24 AM [facility] Creatinine 0.76 0.60 - 1.30 mg/dL 06/08/2024 8:24 AM [facility] Calcium 8.6 8.6 - 10.5 mg/dL 06/08/2024 8:24 AM [facility] Phosphorus 3.3 2.5 - 4.5 mg/dL 06/08/2024 8:24 AM EST [facility] Albumin 4.0 3.5 - 5.2 g/dL 06/08/2024 8:24 AM EST [facility] eGFR >90 >=60 mL/min/1. 73m2 06/08/2024 8:24 AM EST [facility] Comment:The estimated glomer ular [...] 7:10 AM EST 06/08/2024 7:16 AM EST us Sukhjinder Ruiz MD LAB BLOOD ORDERABLES Final Resu lt [facility] [address] [place], [place] [id number], * (ABNORMAL) MRSA/S aureus PCR, Nasal (06/06/2024 9:12 AM EST) MRSA PCR, Nasal NOT DETECTED NOT DETECTED 06/07/2024 9:32 AM EST [facility] S. aureus PCR, Nasal DETECTED(A) NOT DETECTED 06/07/2024 9:32 AM EST [facility] Swab Nasal structure / Unknown Non-Blood Collection / Unknown 06/06/2024 9:12 AM EST 06/06/2024 9:19 AM EST Narrative [facility] 06/07/2024 9:32 AM EST [facility] Received Date: us Sukhjinder Ruiz MD LAB BODY FLUIDS AND STOOLS JENSEN BARROWSTEVE Final Result [facility] [address], [place] [address], [place] [phone] [facility] [address], [place] [address], [place] [phone] * (ABNORMAL) Blood gas, venous (06/05/2024 5:46 PM EST) pH, Venous 7.36 7.31 - 7.41 06/05/2024 5:54 PM EST [facility] pCO2, Venous 65.0(H) 41.0 - 51.0 mm[Hg] 06/05/2024 5:54 PM EST [facility] pO2, Yovani 223.0(H) 35.0 - 40.0 mm[Hg] 06/05/2024 5:54 PM EST [facility] HCO3, Venous 37(H) 22 - 26 mmol/L 06/05/2024 5:54 PM EST [facility] O2 Sat, Venous 93.1(H) 70.0 - 75.0 % 06/05/2024 5:54 PM EST [facility] Base Excess, Yovani 9.2(H) -3.0 - 3.0 mmol/L 06/05/2024 5:54 PM EST [facility] Blood Structure of peripheral vein / Unknown Venipuncture / Unknown 06/05/2024 5:46 PM EST 06/05/2024 5:49 PM EST us John Mello MD LAB BLOOD ORDERABLES Final Re sult [facility] [address] [place] [address], [place] * (ABNORMAL) Repeat Troponin #1 (06/05/2024 4:54 PM EST) Only the most recent of5 resultswithin the time period is included. Troponin T High Sensitivity 34(H) <=21 ng/L 06/05/2024 5:39 PM EST [facility] Comment: Fv-Cqnnvntc-B level of 52 ng/L or higher at [...] be evaluated in line with the 4th [place] Definition of AMI. Troponin baseline and serial [...] MD LAB BLOOD ORDERABLES Final Re sult [facility] [address] [place] [address], [place] * XR Chest Portable 1 View [...] obtain the completed interpretation. ? Workstation ID: [id number] Narrative 06/05/2024 4:39 PM EST COMPARISON: Chest x-ray 05/21/2024 FINDINGS AND Resulting Agency Comment [id number] Procedure Note Brady Kahn MD - 06/05/2024 [...] possible to obtain thecompleted interpretation. Workstation ID: [id number] us John Mello MD IMG XR PROCEDURES Final Resul t * N-terminal ProBrain Natriuretic Peptide (06/05/2024 4:23 PM EST) Only the most recent of2 resultswithin the time period is included. Pro-B-Type Natriuretic Peptide <36 <300 pg/mL 06/05/2024 5:23 PM EST [facility] Comment: Patient Age:? Congestive [...] John Mello MD LAB BLOOD ORDERABLES [facility] [address] [place] [address], * Hepatitis C Antibody w/Reflex to HCV RNA, Quantitative PCR (06/05/2024 4:23 PM EST) Hepatitis C Antibody NON-REACT BRISSA NON-REACT BRISSA 06/06/2024 9:01 AM EST [employer] Comment: HCV antibody was non-reactive. There is no laboratory evidence of HCV infection. In most cases, no further action is required. However, if recent HCV exposure is suspected, a test for HCV RNA (test code 44701) is suggested. For additional information please refer to http://education.Big Stage/faq/PWX41l7 (This link is being provided for informational/ educational purposes only.) Blood Structure of peripheral vein / Unknown Venipuncture / Unknown 06/05/2024 4:23 PM EST 06/05/2024 4:44 PM EST Narrative [facility] - 06/06/2024 9:01 AM EST [facility] Received Date: us John Mello MD LAB BLOOD ORDERABLES Final Re sult [facility] [address], [place] [address], [place] [phone] [facility] [address] 3[address], [place] [address], [place] [phone] * (ABNORMAL) CMP - Comprehensive Metabolic Panel (06/05/2024 4:23 PM EST) NA 139 135 - 145 mmol/L 06/05/2024 5:23 PM EST [facility] K 4.5 3.5 - 5.3 mmol/L 06/05/2024 5:23 PM EST [facility] Cl 102 98 - 107 mmol/L 06/05/2024 5:23 PM EST [facility] CO2 30 22 - 32 mmol/L 06/05/2024 5:23 PM EST [facility] Anion Gap 7 5 - 15 06/05/2024 5:23 PM EST [facility] Glucose 97 65 - 99 mg/dL 06/05/2024 5:23 PM EST [facility] Creatinine 0.87 0.60 - 1.30 mg/dL 06/05/2024 5:23 PM EST [facility] Calcium 8.6 8.6 - 10.5 mg/dL 06/05/2024 5:23 PM EST [facility] Total Protein 6.6 6.0 - 8.0 g/dL 06/05/2024 5:23 PM EST [facility] Albumin 3.7 3.5 - 5.2 g/dL 06/05/2024 5:23 PM EST [facility] Bilirubin, Total <0.2(L) 0.2 - 1.2 mg/dL 06/05/2024 5:23 PM EST [facility] Alkaline Phosphatase 85 35 - 129 U/L 06/05/2024 5:23 PM EST [facility] AST 27 10 - 40 U/L 06/05/2024 5:23 PM EST [facility] ALT 23 10 - 40 U/L 06/05/2024 5:23 PM EST [facility] BUN 13 7 - 23 mg/dL 06/05/2024 5:23 PM EST [facility] eGFR >90 >=60 mL/min/1 .73m2 06/05/2024 5:23 PM EST [facility] Comment:The estimated glomer ular filtration rate (eGFR) is calculated using a new formula developed by the NKF-ASN task force to eliminate race-based correction factors. The new formula uses serum/plasma creatinine, age, and gender to determine eGFR. A value below 60mls/min might indicate kidney disease and will be flagged. For additional information, see Myers et al, Am J Kidney Dis. 2021;79(2):268- 288, A Unifying Approach for GFR estimation: Recommendations of the NKF-ASN Task Force on Reassessing the Inclusion of Race in Diagnosing Kidney Disease . Globulin, Total 2.9 2.1 - 4.2 g/dL 06/05/2024 5:23 PM EST [facility] A/G Ratio 1.3(L) 1.5 - 3.0 06/05/2024 5:23 PM EST [facility] Blood Structure of peripheral vein / Unknown Venipuncture / Unknown 06/05/2024 4:23 PM EST 06/05/2024 4:44 PM EST us John Mello MD LAB BLOOD ORDERABLES Final Re sult [facility] [address] [place] [address], [place] * ECG 12 lead (06/05/2024 4:10 PM EST) Only the most recent of3 resultswithin the time period is included. Ventricular Rate EKG 62 BPM MUSE EKG Atrial Rate 62 BPM MUSE EKG MT Interval 146 ms MUSE EKG QRS Interval 84 ms MUSE EKG QT Interval 416 ms MUSE EKG QTC Interval 422 ms MUSE EKG P [place] 55 degrees MUSE EKG R [place] 43 degrees MUSE EKG T Wave [place] 42 degrees MUSE EKG 06/05/2024 4:10 PM [...] Region Laterality Modality Other us Onbase Scan Sanaz SCANNED PROCEDURES Final Resu lt * (ABNORMAL) POCT I-STAT Lactate W/VBG, interfaced (05/21/2024 4:53 PM EST) Only the most recent of2 resultswithin the time period is included. Sample Type, POCT Venous 05/21/2024 4:58 PM EST [facility], [facility] Lactate, POCT 0.69(L) 0.9 - 1.7 mmol/L 05/21/2024 4:58 PM EST [facility], [facility] pH, POCT 7.37 7.31 - 7.41 pH 05/21/2024 4:58 PM EST [facility], [facility] pCO2, POCT 51.6(H) 41 - 51 mm Hg 05/21/2024 4:58 PM EST [facility], [facility] pO2, POCT 62(H) 35 - 40 mm Hg 05/21/2024 4:58 PM EST [facility], [facility]OC Base Excess, POCT 4(H) 0 - 3 mmol/L 05/21/2024 4:58 PM EST [facility], [facility] HCO3, POCT 29.7(H) 23 - 28 mmol/L 05/21/2024 4:58 PM EST [facility], [facility] TCO2, POCT 31(H) 24 - 29 mmol/L 05/21/2024 4:58 PM EST [facility], [facility] Saturated O2, POCT 90(H) 70 - 75 % 05/21/2024 4:58 PM EST [facility], [facility]OC Naresh's Test, POCT N/A 05/21/2024 4:58 PM EST [facility], [facility] Blood 05/21/2024 4:53 PM EST 05/21/2024 4:58 PM EST us Maryanne Reece MD LAB POCT ORDERABLES - RIVER CE Final Result [facility], [facility] [address] [place] [address], * COVID-19, Flu A/B & RSV RNA PCR, Symptomatic (05/21/2024 4:40 PM EST) Only the most recent of2 resultswithin the time period is included. Pathologist [facility] PCR, SARS CoV-2 RNA Not Detected Not Detected [facility] 05/21/2024 5:46 PM EST [facility] Comment:A Not Detected (Nega [...] A RNA PCR Not Detected Not Detected CEPLogia GroupID GENEXPERT 05/21/2024 5:46 PM EST [facility] Comment:Negative results do not preclude infection and should not be used as the sole basis for diagnosis, treatment or other patient management decisions. Negative results must be combined with clinical observations, patient history, and/or epidemiological information. Flu B RNA PCR Not Detected Not Detected CEPLogia GroupID GENEXPERT 05/21/2024 5:46 PM EST [facility] Comment:Negative results do not preclude infection and should not be used as the sole basis for diagnosis, treatment or other patient management decisions. Negative results must be combined with clinical observations, patient history, and/or epidemiological information. RSV RNA PCR Not Detected Not Detected CEPL[employer]ia GroupID GENEXPERT 05/21/2024 5:46 PM EST [facility] Comment:Negative results do not preclude infection and should not be used as the sole basis for diagnosis, treatment or other patient management decisions. Negative results must be combined with clinical observations, patient history, and/or epidemiological information. Swab (Nares) Non-Blood Collection / Unknown 05/21/2024 4:40 PM EST 05/21/2024 4:48 PM EST Narrative [facility] - 05/21/2024 5:46 PM EST This test was developed, validated and its performance characteristics determined by [facility]. This test has not been cleared or approved by the U.S. Food and Drug Administration (FDA). FDA Policy for Diagnostic Tests for Coronavirus Disease-2019 during the Public Health Emergency issued June 29, 2019, is followed. us Maryanne Reece MD LAB BODY FLUIDS AND STOOLS ORDERABLES Final Result [facility] [address] [place] [address], * Smear Review (05/21/2024 4:34 PM EST) Only the most recent of3 resultswithin the time period is included. Platelet Estimate Adequate Adequate 05/21/2024 5:28 PM EST [facility] RBC Morphology Normal Normal, No clinically significant RBC morphology present (ICSH guidelines, 2015). 05/21/2024 5:28 PM EST [facility] Blood Structure of peripheral vein / Unknown Venipuncture / Unknown 05/21/2024 4:34 PM EST 05/21/2024 4:43 PM EST Maryanne Reece MD LAB BLOOD ORDERABLES Final Result [facility] [address] [place] [address], * Lactic Acid, Plasma (w/Reflex if >2) (05/21/2024 4:34 PM EST) Lactic Acid 0.8 0.5 - 1.9 mmol/L 05/21/2024 5:11 PM EST [facility] Blood Structure of peripheral vein / Unknown Venipuncture / Unknown 05/21/2024 4:34 PM EST 05/21/2024 4:43 PM EST Maryanne Reece MD LAB BLOOD ORDERABLES Final Result Performing Organization Address City/[facility]/ZIP Co de Phone Number [facility] [address] [place] [address], * (ABNORMAL) Hepatic Function Panel (05/05/2024 8:04 AM EST) Only the most recent of6 resultswithin the time period is included. Total Protein 6.7 6.0 - 8.0 g/dL 05/05/2024 9:17 AM EST [facility] Albumin 3.7 3.5 - 5.2 g/dL 05/05/2024 9:17 AM EST [facility] Globulin, Total 3.0 2.1 - 4.2 g/dL 05/05/2024 9:17 AM EST [facility] Bilirubin, Total 0.2 0.2 - 1.2 mg/dL 05/05/2024 9:17 AM EST [facility] Bilirubin, Direct <0.1 <=0.4 mg/dL 05/05/2024 9:17 AM EST [facility] Alkaline Phosphatase 73 35 - 129 U/L 05/05/2024 9:17 AM EST [facility] AST 19 10 - 40 U/L 05/05/2024 9:17 AM EST [facility] ALT 13 10 - 40 U/L 05/05/2024 9:17 AM EST [facility] Bilirubin, Indirect 05/05/2024 9:17 AM EST [facility] Comment:Unable to calculate A/G Ratio 1.2(L) 1.5 - 3.0 05/05/2024 9:17 AM EST [facility] Blood Structure of peripheral vein / Unknown Venipuncture / Unknown 05/05/2024 8:04 AM EST 05/05/2024 8:33 AM EST Bhargav Roberts MD LAB BLOOD ORDERABLES Claudette l Result Performing Organization Address City/[facility] Co de Phone Number [facility] [address] [place] [address], * Streptococcus Pneumoniae Antigen Urine (05/01/2024 4:50 AM EST) Streptococcus pneumoniae Antigen, Urine Negative Negative [facility] 05/01/2024 5:28 AM EST [facility] Urine Urine specimen collection, clean catch / Unknown Non-Blood Collection / Unknown 05/01/2024 4:50 AM EST 05/01/2024 5:03 AM EST Yuki Worthy MD LAB URINE ORDERABLES Fi nal Result Performing Organization Address City/State/[facility] de Phone Number NP [facility] [address] [place] [address], * Legionella Antigen, Urine (05/01/2024 4:50 AM EST) Pathologist [facility] Legionella Pneumophilia Urine AG Negative Negative [facility] 05/01/2024 5:28 AM EST [facility] Comment:This assay is specif [...] ORDERABLES Fi nal Result Performing Organization Address [facility] Phone Number [facility] [address] [place] [address], * (ABNORMAL) Iron Saturation (04/30/2024 8:21 AM EST) Pathologist [facility] Iron Saturation 4(L) 20 - 50 % 12:58 AM EST [facility] Iron 15(L) 45 - 160 ug/dL 05/01/2024 12:58 AM EST [facility]ITALPic[facility] Transferrin 288 200 - 360 mg/dL 05/01/2024 12:58 AM EST [facility] Total Iron Binding Capacity 360 255 - 450 ug/dL 05/01/2024 12:58 AM EST [facility] Blood Structure of peripheral vein / Unknown Venipuncture / Unknown 04/30/2024 8:21 AM EST 04/30/2024 8:30 AM EST Yuki Worthy MD LAB BLOOD ORDERABLES Fi nal Result Performing Organization Address [facility] Co de Phone Number [facility] [address] [place] [address], * (ABNORMAL) Ferritin (04/30/2024 8:21 AM EST) Ferritin 21.9(L) 23.0 - 336.0 ng/mL 05/01/2024 12:58 AM EST [facility] Blood Structure of peripheral vein / Unknown Venipuncture / Unknown 04/30/2024 8:21 AM EST 04/30/2024 8:30 AM EST Yuki Worthy MD LAB BLOOD ORDERABLES Fi nal Result [facility] [address] [place] [address], * Vitamin B12 (04/30/2024 8:21 AM EST) Pathologist [facility] Vitamin B12 315 232 - 1,245 pg/mL 05/01/2024 12:58 AM EST [facility] Blood Structure of peripheral vein / Unknown Venipuncture / Unknown 04/30/2024 8:21 AM EST 04/30/2024 8:30 AM EST Yuki Worthy MD LAB BLOOD ORDERABLES Fi nal Result [facility] [address] [place] [address], [place] * Staph Aureus Screen Culture (04/29/2024 3:39 PM EST) Culture No Staphylococcus aureus isolated 05/02/2024 5:44 AM EST [facility] Swab Nasal structure / Unknown Non-Blood Collection / Unknown 04/29/2024 3:39 PM EST 04/29/2024 4:22 PM EST Narrative [facility] 05/02/2024 5:44 AM EST [facility] Received Date: MICRO NUMBER: [id number] SPECIMEN QUALITY: Adequate SOURCE: SWAB NOSE STATUS: FINAL Rocio Blanc MD LAB MICROBIOLOGY - GENERAL ORDSaad EDEN Final Result [facility] [address], [place] [address], [place] [phone] [facility] [address], [place] [address], [place] [phone] * X-Ray Chest 2 Views (04/29/2024 12:13 [...] obtain the completed interpretation. ? Workstation ID: [id number] Narrative 04/29/2024 1:00 PM EST XR CHEST [...] body heights are preserved. Resulting Agency Comment [id number] Procedure Note Shiva Bryant MD - 04/29/2024 [...] possible to obtain thecompleted interpretation. Workstation ID: [id number] Shanti Ortez MD IMG XR PROCEDURES Fi nal Result * Rapid COVID-19 RNA for Surveillance (04/25/2024 4:51 PM EST) PCR, SARS CoV-2 RNA Not Detected Not Detected [facility] 04/25/2024 5:35 PM EST [facility] Comment:A Not Detected (Nega [...] 4:51 PM EST 04/25/2024 4:59 PM EST Narrative [facility] - 04/25/2024 5:35 PM EST This test was developed, validated and its performance characteristics determined by [facility]. This test has not been cleared or approved by the U.S. Food and Drug Administration (FDA). FDA Policy for Diagnostic Tests for Coronavirus Disease-2019 during the Public Health Emergency issued June 29, 2019, is followed. us Mynor Vargas MD LAB BODY FLUIDS AND STOOLS ORDERABLES Final Result [facility],10E+07 [facility] LABORATORY [address] [place] [address], * Asymptomatic COVID-19 RNA (04/24/2024 8:50 AM EST) PCR, SARS CoV-2 RNA Not Detected Not Detected CEPHEClarizen GENEXPERT 04/24/2024 9:41 AM EST [facility] Comment:A Not Detected (Nega [...] 8:50 AM EST 04/24/2024 8:57 AM EST [facility] - 04/24/2024 9:41 AM EST This test was developed, validated and its performance characteristics determined by [facility]. This test has not been cleared or approved by the U.S. Food and Drug Administration (FDA). FDA Policy for Diagnostic Tests for Coronavirus Disease-2019 during the Public Health Emergency issued June 29, 2019, is followed. Nikolai Gonsalez MD LAB BODY FLUIDS AN D STOOLS ORDERABLES Final Result [facility] [address] [place] [address], * (ABNORMAL) CBC (04/24/2024 7:52 AM EST) Only the most recent of2 resultswithin the time period is included. WBC 9.2 3.8 - 10.8 10*3/uL 04/24/2024 8:15 AM EST [facility] RBC 5.65 4.20 - 5.80 10*6/uL 04/24/2024 8:15 AM EST [facility] Hemoglobin 12.3(L) 13.2 - 17.1 g/dL 04/24/2024 8:15 AM EST [facility] Hematocrit 41.1 38.5 - 50.0 % 04/24/2024 8:15 AM EST [facility] MCV 72.7(L) 80.0 - 100.0 fL 04/24/2024 8:15 AM EST [facility] MCH 21.8(L) 27.0 - 33.0 pg 04/24/2024 8:15 AM EST [facility] MCHC 29.9(L) 32.0 - 36.0 g/dL 04/24/2024 8:15 AM EST [facility] RDW 17.2(H) 11.0 - 15.0 % 04/24/2024 8:15 AM EST [facility] Platelets 337 140 - 400 10*3/uL 04/24/2024 8:15 AM EST [facility] MPV 10.1 7.5 - 12.5 fL 04/24/2024 8:15 AM EST [facility] Blood Structure of peripheral vein / Unknown Venipuncture / Unknown 04/24/2024 7:52 AM EST 04/24/2024 8:08 AM EST Nikolai Gonsalez MD LAB BLOOD ORDERABL ES Final Result [facility] [address] [place] [address], [place] * CT Abdomen Pelvis with Contrast [...] obtain the completed interpretation. ? Workstation ID: [id number] Narrative 04/22/2024 9:27 AM EST EXAMINATION: ?? [...] streak artifact from bilateral total hip arthroplasty. BUILDING CONSTRUCTION TEACHER TOPOGRAM: As below LUNG BASES: Motion degraded. [...] outside the cortical bone. Resulting Agency Comment [id number] Procedure Note Carol Ann Mccloud MD - 04/22/2024 EXAMINATION: CT abdomen and [...] metallic streak artifact from bilateraltotal hip arthroplasty. BUILDING CONSTRUCTION TEACHER TOPOGRAM: As below LUNG BASES: Motion degraded. [...] possible to obtain thecompleted interpretation. Workstation ID: [id number] Nikolai Gonsalez MD IMG CT PROCEDURES Final [...] obtain the completed interpretation. ? Workstation ID: [id number] Narrative 04/21/2024 7:45 AM EST Indication: ??Lung [...] in the spine. ?? Resulting Agency Comment [id number] Procedure Note Anastasiia Mcnamara MD - 04/21/2024 [...] possible to obtain thecompleted interpretation. Workstation ID: [id number] Nikolai Gonsalez MD IMG CT PROCEDURES Final Result from Last 3 Months or Most Recently Relevant to Health Maintenance Insurance [facility] Advance Directives Documents on File Type Date Recorded Patient Visual Education Teacher Expl anation Health Care Proxy 04/20/2024 3:47 PM Ira Matthew 2024 * Full Code (Latest Code Status [...] Agents on File Name Relationship Healthcare Agent [facility] Communication Ira Castro [facility] Health Care Agent Care Teams Color Grinder Relationship Specialty Start Date End Date Patient, Has No Pcp Or Ref DO NOT EDIT THIS RECORD VIA PROVIDER ON THE FLY PCP - General Work Force Advisor 04/17/24
--- OUTSIDE RECORDS SUMMARY | 2024-07-21 08:11 | XMS_ITS | Encounter Summary ---
Author Organization [facility] Address [address] [place] [address] Care Team Providers Care Supervisor Harvesting Name Role Phone Paulo Schwarz Primary Care Provider [phone] Encounter Details Date Type Department Care Team ([facility] st Contact Info) Description 09/19/2012 Orders Only [facility] Orthopedic Surgery [address] [address] Suresh Velazquez MD [address] [place] [address] Social History Tobacco Use Types Packs/Day Years Used Date Smoking Tobacco: Never Smokeless Tobacco: Never Alcohol Use Standard Drinks/Week [...] on file documented as of this encounter Visit Diagnoses Diagnosis DJD (degenerative joint disease) of hip- Primary Osteoarthrosis, unspecified whether generalized or localized, pelvic region and thigh documented in this encounter Care Teams Supervisor Harvesting Relationship Specialty Start Date End Date Paulo Schwarz [address] [place] [address] [place] [address] PCP - General 01/07/08 documented as of this encounter
== END 2024-07-21 08:54 | disposition home or self-care (01) ==
LOC: HO.HMCH 08:03
PROVIDERS: PCP Physician Assistant; Visit Provider Physician Assistant
DX: Z23 Encounter for immunization (principal)

== ENCOUNTER 2024-07-21 08:03 | Outpatient (REF) | payer MEDICARE, MEDICAID, SELFPAY ==
[2024-07-21 09:31] LABS: Hematocrit 36.8 % (42.0-52.0); Hemoglobin 11.3 g/dl (14.0-18.0); Mean Corpuscular HGB Conc 30.7 g/dl (31.0-36.0); Mean Corpuscular Hemoglobin 21.6 pg (27.0-33.0); Mean Corpuscular Volume 70.2 fL (80.0-98.0); Platelet Count 287 X10*3/uL (160-400); Red Blood Count 5.24 X10*6/uL (4.60-5.80); Red Cell Distribution Width 19.3 % (11.0-16.0); White Blood Count 9.4 X10*3/uL (4.8-10.8)
--- OUTSIDE RECORDS SUMMARY | 2024-07-21 09:57 | XMS_ITS | Continuity of Care Document ---
Author Organization [facility] Address [address] [place] [address] Care Team Providers Care It Business Systems Analyst Name Role Phone Paulo Schwarz Primary Care Provider [phone] Encounters Date Type Department Care Team Description 11/13/2019 Travel 11/13/2019 1:15 PM EDT Radiology [facility] Xray 123 [facility] [address] [place] [address] Right knee pain, unspecified chronicity 11/13/2019 1:30 PM EDT Consult (Initial) [facility] [address] [facility] [address] [place] [address] Suresh Velazquez MD Status post total right knee replacement (Primary Dx) 10/06/2019 Travel 10/01/2019 Travel 09/29/2019 Orders Only [facility] [address] [facility] [address] [place] [address] Suresh Velazquez MD 09/24/2019 Telephone [facility] [address] [facility] [address] [place] [address] Suresh Velazquez MD Error 09/23/2019 Orders Only [facility] [address] [facility] [address] [place] [address] Suresh Velazquez MD 09/23/2019 Travel 09/22/2019 Telephone [facility] [address] [facility] [address] [place] [address] Suresh Velazquez MD Imaging Request 05/20/2017 Telephone [facility] [address] [facility] [address] [place] [address] Suresh Velazquez MD Patient Questions 05/16/2017 Home Visit NELLIE KITCHEN UNSPEC Suresh Velazquez MD 05/16/2017 Refill [facility] [address] [facility] [address] [place] [address] Suresh Velazquez MD Refill Request 05/16/2017 Telephone [facility] [address] [facility] [address] [place] [address] Suresh Velazquez MD Refill Request 05/14/2017 Home Visit NELLIE KITCHEN UNSPEC Suresh Velazquez MD 05/14/2017 Telephone [facility] [address] [address] Suresh Velazquez MD VNA Communication 05/14/2017 Telephone [facility] [address] [address] Suresh Velazquez MD Patient Questions 05/06/2017 Minor Procedure/Test NON [facility] [address] [place] [address] Suresh Velazquez MD 05/06/2017 [facility] NON FC [facility] [address] [place] [address] Suresh Velazquez MD 05/02/2017 Orders Only NON FC [facility] [address] [place] [address] Suresh Velazquez MD 04/23/2017 Orders Only [facility] [address] [facility] [address] [place] [address] Peggy Gomez Tech 04/22/2017 Orders Only [facility] Pre-Admission Testing [address] [address] Lexie Rust NP 04/22/2017 9:30 AM EST Office Visit [facility] Pre-Admission Testing 123 [facility] [address] [place] [address] Lexie Rust NP Pre-operative examination (Primary Dx); Primary osteoarthritis of right knee; Sleep apnea, unspecified type; Increased frequency of urination; Gastroesophageal reflux disease; Deep vein thrombosis (DVT) of proximal lower extremity, unspecified chronicity, unspecified laterality; Obesity, unspecified classification, unspecified obesity type, unspecified whether serious comorbidity present; Iron deficiency anemia, unspecified iron deficiency anemia type; Vitamin B 12 deficiency 04/04/2017 Telephone [facility] [address] [address] Suresh Velazquez MD Patient Questions 03/21/2017 2:30 PM EST Office Visit [facility] [address] [address] Suresh Velazquez MD Primary osteoarthritis of right knee (Primary Dx) 11/15/2016 7:45 AM EDT Office Visit [facility] [address] [address] Ld Mensah PA Primary osteoarthritis of right knee (Primary Dx) 04/19/2016 9:30 AM EST Office Visit [facility] [address] [address] Suresh Velazquez MD Osteoarthrosis involving lower leg (Primary Dx) 09/02/2015 9:15 AM EDT Consult (Initial) [facility] [address] [address] Suresh Velazquez MD Osteoarthrosis involving lower leg (Primary Dx) 12/06/2014 Telephone [facility] [address] [place] [address] Stuart Herrera NP Refill Request 11/05/2014 10:45 AM EDT Radiology [facility] [address] [place] [phone] Bilateral hip pain 11/05/2014 11:45 AM EDT Office Visit [facility] [address] [place] [phone] Stuart Herrera NP Muscle strain of gluteal region, unspecified laterality, initial encounter (Primary Dx) 11/04/2014 Orders Only [facility] [address] [place] [phone] Stuart Herrera NP 07/29/2014 Orders Only NON FC [facility] [address] [place] [address] Svh, Unknown Provider 07/29/2014 2:00 PM EDT Consult (Initial) [facility] [address] [address] Stuart Herrera NP Muscle strain of left gluteal region, initial encounter (Primary Dx) 07/27/2014 Telephone [facility] [address] [address] Suresh Velazquez MD Patient Questions 03/24/2014 10:30 AM EST Office Visit [facility] Suite [facility] [address] [address] Becca Du NP Sciatica (Primary Dx) 03/17/2014 Telephone [facility] Suite [facility] [address] [address] Suresh Velazquez MD Patient Questions 07/28/2013 Telephone [facility] [address] [place] [address] Suresh Velazquez MD Letter/form Request (dr velazquez) 07/01/2013 Consult (Initial) REHABILITATION UNSPEC Provider, Unknown 04/27/2013 3:00 PM EST Office Visit [facility] Suite [facility] [address] [address] Becca Du NP Iliotibial band syndrome (Primary Dx) 04/07/2013 Telephone [facility] [address] [place] [address] Suresh Velazquez MD No Show 02/02/2013 Refill [facility] [address] [address] Suresh Velazquez MD Refill Request 01/21/2013 Refill [facility] [address] [facility] [address] [place] [address] Suresh Velazquez MD Refill Request (isa) 01/08/2013 Refill [facility] [address] [facility] [address] [place] [address] Suresh Velazquez MD Refill Request 01/07/2013 Letter/Form [facility] [address] [facility] [address] [place] [address] Suresh Velazquez MD 12/23/2012 Refill [facility] [address] [facility] [address] [place] [address] Suresh Velazquez MD Refill Request 12/18/2012 10:45 AM EDT Office Visit [facility] [address] [facility] [address] [place] [address] Suresh Velazquez MD Osteoarthritis of the pelvic region and thigh (Primary Dx) 12/12/2012 Telephone [facility] [address] [facility] [address] [place] [address] Suresh Velazquez MD Other (dr velazquez) 12/10/2012 Telephone [facility] [address] [facility] [address] [place] [address] Suresh Velazquez MD Patient Questions (Dr. Velazquez) 12/09/2012 Refill [facility] [address] [facility] [address] [place] [address] Suresh Velazquez MD Refill Request 12/08/2012 Orders Only [facility] [address] [facility] [address] [place] [address] Suresh Velazquez MD 12/08/2012 Refill [facility] [address] [facility] [address] [place] [address] Suresh Velazquez MD Refill Request 12/03/2012 Refill [facility] [address] [facility] [address] [place] [address] Suresh Velazquez MD Refill Request ( ) 12/01/2012 Orders Only ORTHO SURG UNSPECIFIED Suresh Velazquez MD 11/27/2012 Telephone [facility] [address] [facility] [address] [place] [address] Suresh Velazquez MD Other (Becca Wagneruld ) 11/26/2012 Refill [facility] [address] [facility] [address] [place] [address] Suresh Velazquez MD Refill Request (Dr. Velazquez ) 11/24/2012 Orders Only ORTHO SURG UNSPECIFIED Suresh Velazquez MD 11/19/2012 [facility] NON FC [facility] [address] [place] [address] Suresh Velazquez MD 11/14/2012 Orders Only NON FC [facility] [address] [place] [address] Suresh Velazquez MD 10/27/2012 Orders Only [facility] [address] [facility] [address] [place] [address] Lin John [facility] 10/27/2012 11:15 AM EDT Office Visit [facility] Pre-Admission Testing 123 [facility] [address] [place] [address] Khurram Sunshine MD Pre-operative examination (Primary Dx); Osteoarthritis of hip; Sleep apnea; Deep vein thrombosis; Gastroesophageal reflux disease; Seizures; Urinary frequency; Obesity 10/09/2012 Refill [facility] [address] [facility] [address] [place] [address] Suresh Velazquez MD Refill Request 09/19/2012 Orders Only [facility] [address] [facility] [address] [place] [address] Suresh Velazquez MD 09/05/2012 Refill [facility] [address] [facility] [address] [place] [address] Suresh Velazquez MD Refill Request 09/05/2012 11:00 AM EDT Consult (Initial) [facility] [address] [facility] [address] [place] [address] Suresh Velazquez MD Osteoarthritis of the pelvic region and thigh (Primary Dx) 07/04/2010 3:45 PM EDT Office Visit [facility] [address] [facility] [address] [place] [address] Suresh Velazquez MD DJD (degenerative joint disease) of hip (Primary Dx) 05/05/2010 Telephone [facility] [address] [facility] [address] [place] [address] Suresh Velazquez MD No Show (Balcom) 02/14/2010 Telephone [facility] [address] [facility] [address] [place] [address] Suresh Velazquez MD Cancellation (Balcom) 12/28/2009 Telephone [facility] [address] [facility] [address] [place] [address] Suresh Velazquez MD Patient Questions (BALCOM) 09/30/2009 Refill [facility] [address] [facility] [address] [place] [address] Suresh Velazquez MD Refill Request 09/14/2009 Refill [facility] [address] [facility] [address] [place] [address] Suresh Velazquez MD Refill Request 09/02/2009 Telephone [facility] [address] [facility] [address] [place] [address] Suresh Velazquez MD Patient Questions (balcom) 08/24/2009 Refill [facility] [address] [facility] [address] [place] [address] Suresh Velazquez MD Refill Request 08/04/2009 Refill [facility] [address] [address] Suresh Velazquez MD Refill Request 07/26/2009 9:15 AM EDT Office Visit [facility] [address] [address] Suresh Velazquez MD Osteoarth NOS-unspec (Primary Dx) 07/21/2009 Telephone [facility] [address] [address] Suresh Velazquez MD Patient Questions (BALCOM) 07/19/2009 Telephone [facility] [address] [address] Suresh Velazquez MD Patient Questions (balcom) 07/13/2009 Telephone [facility] [address] [address] Suresh Velazquez MD Patient Questions (balcom) 07/08/2009 Telephone [facility] [address] [address] Suresh Velazquez MD Patient Questions (Balcom ) 07/07/2009 Telephone [facility] [address] [address] Suresh Velazquez MD VNA Communication 07/07/2009 Telephone [facility] [address] [address] Suresh Velazquez MD VNA Communication (dr velazquez) 07/04/2009 Telephone [facility] [address] [address] Suresh Velazquez MD Patient Questions (Balcom ) 06/28/2009 Consult (Initial) NON FC [facility] [address] [place] [address] [facility], Unknown Provider 06/28/2009 [facility] NON FC [facility] [address] [place] [address] Suresh Velazquez MD 06/23/2009 Orders Only NON FC [facility] [address] [place] [address] Suresh Velazquez MD 06/09/2009 Orders Only [facility] [address] [facility] [address] [place] [address] Lin John Tech 06/08/2009 Orders Only NON FC SA NON FC UNK Provider, Unknown 06/08/2009 8:00 AM EST Office Visit [facility] Pre-Admission Testing 123 [facility] [address] [place] [address] Lexie Rust NP Preop examination; Osteoarthritis of hip; Urinary frequency; Morbid obesity; DVT (deep venous thrombosis); GERD (gastroesophageal reflux disease); Sleep apnea 05/12/2009 Telephone [facility] [address] [facility] [address] [place] [address] Suresh Velazquez MD Patient Questions ([facility]) 05/06/2009 Orders Only [facility] [address] [address] Suresh Velazquez MD 05/06/2009 1:15 PM EST Office Visit [facility] [address] [address] Suresh Velazquez MD Osteoarth NOS-unspec (Primary Dx) 01/26/2009 Telephone [facility] [address] [facility] [address] [place] [address] Paulo Schwarz Cancellation (Balcom ) 04/23/2008 Telephone [facility] [address] [address] Suresh Velazquez MD 04/23/2008 Orders Only NON FC [facility] [address] [place] [address] Suresh Velazquez MD Allergies No known active [...] Not on file Procedures * Due to [place] state law, this organization might not be [...] PELVIS 1 OR 2 VIEWS Routine 04/27/2013 4 :11 PM EST PELVIS 1 OR 2 VIEWS [...] 11:55 AM EST Results * Due to [place] state law, this organization might not be [...] BLOOD COUNT 12.8(H) 3.9 - 11.0 x1000/uL [facility] RBC 4.38 4.30 - 5.80 mil/ul [facility] Hemoglobin 12.1(L) 12.5 - 17.0 g/dL [facility] HCT (HEMATOCRIT) 36.8 36.0 - 50.0 % [facility] MCV 84 80 - 100 fL [facility] MCH 28 27 - 33 pg [facility] MCHC 33 31 - 36 g/dL [facility] RDW 16.0(H) 11.4 - 14.4 % [facility] PLATELETS 201 150 - 450 x1000/uL [facility] 05/07/2017 6:05 AM EST 05/07/2017 6:05 AM EST us Suresh Velazquez MD LABORATORY Final Result [facility] [address] [place] [address] * (ABNORMAL) BASIC METABOLIC PANEL (05/07/2017 6:05 AM EST) Only the most recent of7 resultswithin the time period is included. Glucose 94 65 - 99 mg/dL [facility] BUN 11 5 - 26 mg/dL [facility] CREATININE 0.76 0.5 - 1.5 mg/dL [facility] BUN/Creatinine Ratio 14 8 - 27 [facility] GLOM FILT RATE, EST 106.4 >59 mL/min [facility] IF -LAURA N 123.3 >59 mL/min [facility] SODIUM 143 134 - 144 mEq/L [facility] POTASSIUM 3.9 3.6 - 5.6 mEq/L [facility] CHLORIDE 107 96 - 109 mEq/L [facility] CARBON DIOXIDE 29 20 - 32 mEq/L [facility] ANION GAP 7.0(L) 8 - 15 [facility] CALCIUM 8.4 8.3 - 10.0 mg/dL [facility] 05/07/2017 6:05 AM EST 05/07/2017 6:05 AM EST us Suresh Velazquez MD LABORATORY Final Result [facility] [address] [place] [address] * KNEE UNILATERAL 1 OR 2 VIEWS (05/06/2017 3:31 PM EST) RADIOLOGY REPORT [facility] Department of Radiology [address] [place] [address], [address] Name: WES OLIVO : 67 Date of Service: 05/06/17 1052 Acct Number: [id number] Order Number: ??[id number] ?Location: [facility] Report Number: [id number] ?Service: [facility]/ Requesting Physician: Suresh Velazquez ([facility]) Category: RADIOLOGY ??[facility] Exam: KNEE 1 OR 2 VIEWS ?? [...] hardware failure. Date/Time of Dictation: 05/06/17 1634 Engraving Supervisor (if applicable): Approved By Attending Radiologist: Deacon Hernandez 05/06/17 1634 [facility] Department of Radiology [address] [place] [address], [address] ? [phone] ? [facility] Anatomical Region Laterality Modality Other 05/06/2017 3:31 PM EST Narrative 05/06/2017 4:34 PM EST Reason for Study/History: Department of Radiology TEST(S) PROCESSED BY [facility] XRAY Suresh Velazquez MD IMAGING-[facility] Final Result * UNSPECIFIED MAJOR PROCEDURE (05/06/2017) Narrative Procedure Note Suresh Velazquez MD - 05/06/2017 10:19 AM EST OPERATIVE REPORT DATE OF OPERATION: 05/06/2017 ATTENDING SURGEON: Dr. Suresh Velazquez. PREOPERATIVE DIAGNOSIS: Degenerative joint disease, right knee. POSTOPERATIVE DIAGNOSIS: Degenerative joint disease, right knee. PROCEDURE PERFORMED: Right total knee arthroplasty. TOURNIQUET TIME: 47 minutes. RETORT OPERATOR: Cory Kaiser, advanced practitioner certified. IMPLANTS USED: [...] 10:04 A TT: 10:19 A Doc #: [id number] cc: Suresh Velazquez MD Suresh Velazquez MD PROCEDURES Final Result * BLOOD TYPE AND ANTIBODY SCREEN (05/02/2017 3:20 PM EST) Only the most recent of3 resultswithin the time period is included. BLOOD GROUP ABO O [facility] RH-(D) Positive [facility] ANTIBODY SCREEN Negative Negative [facility] 05/02/2017 3:20 PM EST 05/02/2017 3:20 PM EST Suresh Velazquez MD LABORATORY Final Result Performing Organization Address City/State/[facility] de Phone Number [facility] [address] [place] [id number] * MRSA CULTURE SCREEN, NASAL ONLY (04/22/2017 12:22 PM EST) Only the most recent of2 resultswithin the time period is included. Methicillin Resistant Staphylococcus Aureus Screen SEE NOTE [facility] Comment: ??MRSA CULTURE SCREEN ??MICRO NUMBER: ?[id number] ??TEST STATUS: ? FINAL ??SPECIMEN SOURCE: ?? NOT GIVEN ??SPECIMEN QUALITY: ??ADEQUATE ??RESULT: ?No methicillin resistant Staphylococcus aureus ? (MRSA) isolated. 04/22/2017 12:2 2 PM EST 04/22/2017 5:52 PM EST Narrative Resulting Agency Comment [id number] Lexie Rust NP LABORATORY Final Result Performing Organization Address [facility] de Phone Number [employer] [address] [address] * EKG-TO BE READ AND BILLED BY [...] R TG Final Result Performing Organization Address [facility] de Phone Number [facility] * CULTURE, URINE, ROUTINE (04/22/2017 9:54 AM EST) Only the most recent of2 resultswithin the time period is included. Bacteria culture (Urine) SEE NOTE [employer] Comment: ??CULTURE, URINE, ROUTINE ??MICRO NUMBER: ?[id number] ??TEST STATUS: ? FINAL ??SPECIMEN SOURCE: ?? NOT GIVEN ??SPECIMEN QUALITY: ??ADEQUATE ??RESULT: ?Single organism less than 10,000 CFU/mL isolated. ? These organisms, commonly found on external and ? internal genitalia, are considered colonizers. ? No further testing performed. 04/22/2017 9:54 AM EST 04/22/2017 2:49 PM EST Narrative Resulting Agency Comment [id number] Lexie Rust GRAZING EXAMINER LABORATORY Final Result Performing Organization Address [facility] de Phone Number [facility] [address] [place] [address] * PROTHROMBIN TIME (PT) (INR), BLOOD (04/22/2017 9:54 AM EST) Pathologist [facility] INR 1.0 [facility] Comment: Reference Range ? 0.9-1.1 Moderate-intensity Warfarin Therapy 2.0-3.0 Higher-intensity Warfarin Therapy ?? 3.0-4.0 PT 10.3 9.0 - 11.5 sec [facility] Comment: For more information on this test, go to: http://education.[employer]/faq/RTU954 04/22/2017 9:54 AM EST 04/22/2017 2:49 PM EST Narrative Resulting Agency Comment [id number] Lexie Rust NP LAB SAME DAY RESULT Final Re sult Performing Organization Address [facility] Phone Number [facility] [address] [place] [address] * (ABNORMAL) CBC INCLUDES DIFFERENTIAL AND PLATELET COUNT (04/22/2017 9:54 AM EST) Only the most recent of2 resultswithin the time period is included. Pathologist [facility] WBC 11.1(H) 3.8 - 10.8 Thousand/u [...] 2:49 PM EST Narrative Resulting Agency Comment [id number] us Lexie Rust GRAZING EXAMINER LAB SAME DAY RESULT Final Re sult [facility] [address] [place] [address] * (ABNORMAL) BASIC METABOLIC PANEL WITH (GFR) [...] approximately 13% higher for people identified as -Kenyan. GFR 100 > OR = 60 mL/min/1. [...] needs for GFR calculation. Resulting Agency Comment [id number] us Lexie Rust NP LABORATORY Final Result [facility] [address] [place] [address] * KNEE 3 VW MIN W/OBLIQUES (03/21/2017 5:24 PM EST) RADIOLOGY REPORT [facility] Department of Radiology [address] [place] [address], [address] Name: WES OLIVO : 67 Date of Service: 03/21/17 144 Acct Number: [id number] Order Number: ??[id number] ?Location: [facility] Report Number: [id number] ?Service: REG REF/ Requesting Physician: Suresh Velazquez ([facility]) Category: ORTHOPEDIC RADIOLOGY ??[facility] Exam: KNEE 3 VW MIN ?? Right [...] to large effusion. Date/Time of Dictation: 03/21/171827 Engraving Supervisor (if applicable): Approved By Attending Radiologist: Doni Pedro 03/21/171827 [facility] Department of Radiology [address] [place] [address], [address] ? [phone] ? [facility] Anatomical Region Laterality Modality Other 03/21/2017 5:24 PM EST Narrative 03/21/2017 6:28 PM EST Reason for Study/History: Department of Radiology TEST(S) PROCESSED BY [facility] XRAY us Suresh Velazquez MD [facility] Final Result * XRAY KNEE AP LAT & OBLQ MIN 3 VW - RIGHT (09/02/2015 11:21 AM EDT) RADIOLOGY REPORT [facility] Department of Radiology [address] [place] [address], [address] Name: WES OLIVO : 67 Date of Service: 09/02/15930 Acct Number: [id number] Order Number: ??[id number] ?Location: [facility] Report Number: [id number] ?Service: REG REF/ Requesting Physician: Suresh Velazquez ([facility]) Category: ORTHOPEDIC RADIOLOGY ??[facility] Exam: KNEE 3 VW MIN ?? Right [...] compartment osteoarthritis. Date/Time of Dictation: 09/02/15 1125 Engraving Supervisor (if applicable): Approved By Attending Radiologist: Tobi Gray 09/02/15 1125 [facility] Department of Radiology [address] [place] [address], [address] ? [phone] ? [facility] Anatomical Region Laterality Modality Other 09/02/2015 11:2 1 AM EDT Narrative 09/02/2015 11:26 AM EDT Reason for Study/History: Department of Radiology TEST(S) PROCESSED BY [facility] XRAY Suresh Velazquez MD [facility] Final Result * XRAY HIPS WITH PA [...] Degenerative changes. Bilateral hip prostheses. Stuart Herrera GRAZING EXAMINER IMG XRAY NO CONTRAST ORDERAB LES Final Result * HIP UNILATERAL 2 VIEWS - LEFT (07/29/2014 3:34 PM EDT) Only the most recent of4 resultswithin the time period is included. RADIOLOGY REPORT [facility] Department of Radiology [address] [place] [address], [address] Name: WES OLIVO : 67 Date of Service: 07/29/14 1425 Acct Number: [id number] Order Number: ??[id number] ?Location: [facility] Report Number: [id number] ?Service: PRE REF/ Requesting Physician: Stuart Velez ([facility]) Category: ORTHOPEDIC RADIOLOGY ??[facility] Exam: HIP UNILAT 2 VIEWS ?? Left [...] Approved Electronically By/Date: Alfonzo Peterson 07/29/14 1538 [facility] Department of Radiology [address] [place] [address], [address] ? [phone] ? [facility] Anatomical Region Laterality Modality Other 07/29/2014 3:34 PM EDT Narrative 07/29/2014 3:39 PM EDT Reason for Study/History: Department of Radiology TEST(S) PROCESSED BY [facility] XRAY us Unknown Provider [facility] Final Resul t * PELVIS 1 OR 2 VIEWS (07/29/2014 3:34 PM EDT) Only the most recent of8 resultswithin the time period is included. RADIOLOGY REPORT [facility] Department of Radiology [address] [place], [address] Name: WES OLIVO : 67 Date of Service: 07/29/14 1425 Acct Number: [id number] Order Number: ??[id number] ?Location: [facility] Report Number: [id number] ?Service: PRE REF/ Requesting Physician: Stuart Velez ([facility]) Category: ORTHOPEDIC RADIOLOGY ??[facility] Exam: PELVIS 1 OR 2 VIEWS ?? [...] Approved Electronically By/Date: Alfonzo Peterson 07/29/14 1538 [facility] Department of Radiology [address] [place] [address], [address] ? [phone] ? [facility] RAD Anatomical Region Laterality Modality Other 07/29/2014 3:34 PM EDT Narrative 07/29/2014 3:39 PM EDT Reason for Study/History: Department of Radiology TEST(S) PROCESSED BY [facility] XRAY us Unknown Provider [facility] Final Resul t * HIP UNILATERAL 2 VIEW - [facility] (03/24/2014 4:40 PM EST) Only the most recent of4 resultswithin the time period is included. RADIOLOGY REPORT [facility] Department of Radiology [address] [place], [address] Name: WES OLIVO : 67 Date of Service: 03/24/14 1003 Acct Number: [id number] Order Number: ??[id number] ?Location: [facility] Report Number: [id number] ?Service: REG REF/ Requesting Physician: Becca Du ([facility]) Category: ORTHOPEDIC RADIOLOGY ??[facility] Exam: HIP UNILAT 2 VIEWS ?? Right [...] Approved Electronically By/Date: Michael Anders 03/24/14 1640 [facility] Department of Radiology [address] [place] [address], [address] ? [phone] ? [facility] Anatomical Region Laterality Modality Other 03/24/2014 4:40 PM EST Narrative 03/24/2014 4:40 PM EST Reason for Study/History: Department of Radiology TEST(S) PROCESSED BY [facility] XRAY Becca Du GRAZING EXAMINER [facility] Final Result * UNSPECIFIED DIAGNOSTIC PROCE (12/08/2012) Only the most recent of5 resultswithin the time period is included. Narrative Transcriptions Suresh Velazquez MD - 12/24/2012 12:00 AM EDT Suresh Velazquez MD LABORATORY Final Result * PELVIS 1 OR 2 VIEWS (11/19/2012 4:51 PM EDT) Only the most recent of2 resultswithin the time period is included. RADIOLOGY REPORT [facility] Department of Radiology [address] [place] [address], [address] Name: WES OLIVO : 67 Date of Service: 11/19/12 1636 Acct Number: [id number] Order Number: ??[id number] ?Location: [facility] Report Number: [id number] ?Service: ADM IN/LEROY Requesting Physician: Suresh Velazquez ([facility]) Category: RADIOLOGY ??[facility] Exam: PELVIS 1 OR 2 VIEWS ?? [...] Approved Electronically By/Date: Tracey Lawson 11/19/12 165 [facility] Department of Radiology [address] [place] [address], [address] ? [phone] ? [facility] Anatomical Region Laterality Modality Other 11/19/2012 4:51 PM EDT Narrative 11/19/2012 4:52 PM EDT Reason for Study/History: Department of Radiology TEST(S) PROCESSED BY [facility] XRAY Suresh Velazquez MD [facility] Final Result * HIP UNILATERAL 2 VIEW - RIGHT (11/19/2012 4:50 PM EDT) RADIOLOGY REPORT [facility] Department of Radiology [address] [place] [address], [address] Name: WES OLIVO : 67 Date of Service: 11/19/12 1637 Acct Number: [id number] Order Number: ??[id number] ?Location: [facility] Report Number: [id number] ?Service: ADM IN/LEROY Requesting Physician: Suresh Velazquez ([facility]) Category: RADIOLOGY ??[facility] Exam: HIP 2 VIEWS UNILATERAL ?? Right [...] 1650 Approved Electronically By/Date: Tracey Lawson 11/19/121650 [facility] Department of Radiology [address] [place] [address], [address] ? [phone] ? [facility] Anatomical Region Laterality Modality Other 11/19/2012 4:50 PM EDT Narrative 11/19/2012 4:51 PM EDT Reason for Study/History: Department of Radiology TEST(S) PROCESSED BY [facility] XRAY Suresh Velazquez MD [facility] Final Result * UNSPECIFIED MAJOR PROCEDURE (11/19/2012) [...] extended neck offset. SURGEON: Suresh Velazquez MD RETORT OPERATOR: Becca Du NP. INDICATIONS: The patient has [...] quadratus femoris and the inferior capsule. A shaktoolik blade was then used to release the [...] 2:48 P TT: 2:59 P Doc #: [id number] cc: Suresh Velazquez MD Suresh Velazquez MD PROCEDURES Final Result * HIP UNILAT 2 VIEWS (09/05/2012 12:25 PM EDT) RADIOLOGY REPORT [facility] Department of Radiology [address] [place] [address], [address] Name: WES OLIVO : 67 Date of Service: 09/05/12 1056 Acct Number: [id number] Order Number: ??[id number] ?Location: [facility] Report Number: [id number] ?Service: REG REF/ Requesting Physician: Suresh Velazquez ([facility]) Category: ORTHOPEDIC RADIOLOGY ??[facility] Exam: HIP UNILAT 2 VIEWS ?? Right [...] Approved Electronically By/Date: Vance Riggins 09/05/12 1226 [facility] Department of Radiology [address] [place] [address], [address] ? [phone] ? [facility] RAD Anatomical Region Laterality Modality Other 09/05/2012 12:2 5 PM EDT Narrative 09/05/2012 12:26 PM EDT Reason for Study/History: Department of Radiology TEST(S) PROCESSED BY [facility] XRAY Suresh Velazquez MD [facility] Final Result * (ABNORMAL) PROTHROMBIN TIME (07/02/2009 [...] EDT Reason for Study/History: TEST(S) PROCESSED BY [facility] XRAY Suresh Velazquez MD [facility] Final Result * UNSPECIFIED MAJOR PROCEDURE (06/28/2009 [...] 44 +12 cobalt chrome head,a size 8 [place] cementless stem with lateral neck. SURGEON: Suresh Velazquez MD. RETORT OPERATOR: GHAZALA Gates. INDICATIONS: The patient has not [...] quadratus femoris and the inferior capsule. A shaktoolik bladewas then used to release the rotators [...] Authenticated By: Suresh Velazquez MD 07/06/2009 15:33 Sruesh Velazquez MD MQ TD: 5:42 P TT: 7:50 P Doc #: [id number] cc: Suresh Velazquez MD Suresh Velazquez MD PROCEDURES Final Result * BLOOD TYPE (ABO&RH) (06/23/2009 10:00 AM EST) Pathologist [facility] BLOOD GROUP ABO O RH-(D) POSITIVE 06/23/2009 10:0 0 AM EST 06/23/2009 10:00 AM EST Suresh Velazquez MD LABORATORY Final Result * ANTIBODY SCREEN (06/23/2009 10:00 AM EST) Pathologist [facility] ANTIBODY SCREEN NEGATIVE 06/23/2009 10:0 0 AM EST 06/23/2009 10:00 AM EST Suresh Velazquez MD LABORATORY Final Result * EKG (06/08/2009 9:52 AM EST) Pathologist [facility] VENTRICULAR RATE 70 BPM ATRIAL RATE [...] PANEL W/GLOMERULAR FILTRATION RATE (EGFR) (06/08/2009) Pathologist [facility] CALCIUM 9.8 8.6 - 10.2 MG/DL [...] NP LABORATORY Final Result Performing Organization Address [facility] de Phone Number [facility] [address] [place] [address] * CULTURE, URINE (06/08/2009) Pathologist [facility] URINE CULTURE CLEAN VOID SEE TEXT [facility] Comment: SOURCE: URINE NO GROWTH 06/08/2009 06/08/2009 5:3 4 PM EST Lexie Rust NP LABORATORY Final Result Performing Organization Address [facility] de Phone Number [facility] [address] [place] [address] * MRSA SCREEN, ANY SOURCE (06/08/2009) Pathologist [facility] Result(s) SEE TEXT [facility] Comment: SOURCE: UNKNOWN NO METHICILLIN RESISTANT STAPHYLOCOCCUS AUREUS ISOLATED 06/08/2009 06/08/2009 5:3 4 PM EST Lexie Rust NP LABORATORY Final Result Performing Organization Address [facility] de Phone Number [facility] [address] [place] [address] * (ABNORMAL) CBC 5 PART DIFF (06/08/2009) [...] 5:3 4 PM EST us Lexie Rust GRAZING EXAMINER LAB SAME DAY RESULT Final Re sult Performing Organization Address City/State/[facility] Co de Phone Number [facility] [address] [place] [address] * URINALYSIS, COMPLETE (DIP & MICRO) (06/08/2009) [...] DIAGNOSTICS 06/08/2009 06/08/2009 5:3 4 PM EST Lexei Rust GRAZING EXAMINER LAB SAME DAY RESULT Final Re sult [facility] [address] [place] [address] * XRAY HIPS BILATERAL MIN 2 VIEWS [...] the right knee show TEST(S) PROCESSED BY [facility] XRAY Suresh Velazquez MD [facility] Final Result * KNEE (2 VWS) RT [...] of the left knee TEST(S) PROCESSED BY [facility] XRAY Suresh Velazquez MD [facility] Final Result Visit Diagnoses Diagnosis Start Date [...] total right knee replacement 11/13/2019 Care Teams It Business Systems Analyst Relationship Specialty Start Date End Date Paulo Schwarz [address] [place] [address] [place] [address] PCP - General 01/07/08
--- OUTSIDE RECORDS SUMMARY | 2024-07-21 09:57 | XMS_ITS | Encounter Summary ---
Author Organization [facility] Address [address] [place] [address] Care Team Providers Care Ssrs Report Developer Name Role Phone Paulo Schwarz Primary Care Provider [phone] Encounter Details Date Type Department Care Team ([facility] st Contact Info) Description 09/29/2019 Orders Only [facility] Orthopedic Surgery [address] [facility] [address] [place] [phone] Suresh Velazquez MD [address] [place] [address] Social History Tobacco Use Types Packs/Day Years [...] chronicity documented in this encounter Care Teams Ssrs Report Developer Relationship Specialty Start Date End Date Paulo Schwarz [address] [place] [address] [place] [address] PCP - General 01/07/08 documented as of this encounter
--- OUTSIDE RECORDS SUMMARY | 2024-07-21 09:57 | XMS_ITS | Encounter Summary ---
Author Organization [facility] Address [address] [place] [address] Care Team Providers Care Web Solutions Architect Name Role Phone Paulo Schwarz Primary Care Provider [phone] Encounter Details Date Type Department Care Team ([facility] st Contact Info) Description 09/19/2012 Orders Only [facility] Orthopedic Surgery [address] [phone] Suresh Velazquez MD [address] [place] [address] Social History Tobacco Use Types Packs/Day Years [...] thigh documented in this encounter Care Teams Web Solutions Architect Relationship Specialty Start Date End Date Paulo Schwarz [address] [place] [address] [place] [address] PCP - General 01/07/08 documented as of this encounter
--- OUTSIDE RECORDS SUMMARY | 2024-07-21 09:57 | XMS_ITS | Clinical Summary ---
Author Organization [facility] Address [address] [place] [address] Care Team Providers Care Online Merchant Name Role Phone Patient, Has No Pcp [...] AM EST): Patient with COPD presenting from [facility] for hypoxia after he was [...] a PCP but does not have a stem setter, may benefit from outpatient referral to decrease incidence of hospitalization. On discharge: -prednisone 40mg daily through 05/26 -Ambulatory pulmonology referral placed Assessment & Plan (05/24/2024 10:55 AM EST): Patient with COPD presenting from [facility] for hypoxia after he was [...] a PCP but does not have a stem setter, may benefit from outpatient referral to decrease incidence of hospitalization. -prednisone 40mg daily x 5 days (D1: 05/22) -duonebs q4hr PRN -albuterol 2.5mg neb q4hr prn -maintain SpO2 88-92% -Ambulatory pulmonology referral on discharge Assessment & Plan (05/23/2024 3:55 PM EST): Patient with COPD presenting from [facility] for hypoxia after he was [...] a PCP but does not have a stem setter, may benefit from outpatient referral to decrease incidence of hospitalization. -prednisone 40mg daily x 5 days (D1: 05/22) -duonebs q4hr scheduled -albuterol 2.5mg neb q4hr prn -maintain SpO2 88-92% -may benefit from pulm outpatient Assessment & Plan (05/22/2024 1:21 PM EST): Patient with COPD presenting from [facility] for hypoxia after he was [...] a PCP but does not have a stem setter, may benefit from outpatient referral to decrease [...] 100 mg p.o. nightly Patient discharged to [facility] program, they will be assisting him with transitional housing. Discussed with patient that he will need a primary care doctor and he states [facility] program has been helping him organize [...] several hospital admissions for withdrawal, presented from [facility] of acute hypoxic respiratory failure [...] several hospital admissions for withdrawal, presented from [facility] of acute hypoxic respiratory failure [...] several hospital admissions for withdrawal, presented from [facility] of acute hypoxic respiratory failure 2/2 COPDe. He has been on a 2 day detox from cocaine and alcohol. Reports last use was 05/20. Was given 10 mg of Valium by [facility] due to withdrawal symptoms and CIWA 10. -CIWA with rescue valium -continue home clonidine 0.1mg 3 times a day prn -thiamine, folic acid, Mag Assessment & Plan (05/22/2024 1:21 PM EST): History of cocaine and OUD with several hospital admissions for withdrawal, presented from [facility] of acute hypoxic respiratory failure 2/2 COPDe. He has been on a 2 day detox from cocaine and alcohol. Reports last use was 05/20. Was given 10 mg of Valium by [facility] due to withdrawal symptoms and CIWA 10. -CIWA with rescue valium -continue home clonidine 0.1mg 3 times a day prn -thiamine, folic acid, Mag Assessment & Plan (05/05/2024 11:43 AM EST): History of cocaine and OUD with several hospital admissions for withrawal, presented from [facility] ([facility]) in the setting of COVID. Was on a chlordiazepoxide at rehab, but last alcohol intake > 1 week [employer] to transfer here -continue home clonidine 0.1mg 3 times a day -continue home baclofen 10mg 3 times a day -nicotine patch as needed -thiamine and MV daily Assessment & Plan (05/04/2024 1:43 PM EST): History of cocaine and OUD with several hospital admissions for withrawal, presented from [facility] ([facility]) in the setting of COVID. Was on a chlordiazepoxide at rehab, but last alcohol intake > 1 week [employer] to transfer here -continue home clonidine 0.1mg 3 times a day -continue home baclofen 10mg 3 times a day -nicotine patch as needed -thiamine and MV daily Assessment & Plan (05/03/2024 12:11 PM EST): History of cocaine and OUD with several hospital admissions for withrawal, presented from [facility] ([facility]) in the setting of COVID. Was on a chlordiazepoxide at rehab, but last alcohol intake > 1 week [employer] to transfer here -continue home clonidine 0.1mg 3 times a day -continue home baclofen 10mg 3 times a day -CIWA without meds, add if needed -nicotine patch as needed -thiamine and MV daily Assessment & Plan (05/02/2024 10:18 AM EST): History of cocaine and OUD with several hospital admissions for withrawal, presented from [facility] ([facility]) in the setting of COVID. Was on a chlordiazepoxide at rehab, but last alcohol intake > 1 week [employer] to transfer here -continue home clonidine 0.1mg 3 times a day -continue home baclofen 10mg 3 times a day -CIWA without meds, add if needed -nicotine patch as needed -thiamine and MV daily Assessment & Plan (05/01/2024 1:12 PM EST): History of cocaine and OUD with several hospital admissions for lisa, presented from [facility] ([facility]) in the setting of COVID. Was on a chlordiazepoxide at rehab, but last alcohol intake > 1 week [employer] to transfer here -continue home clonidine 0.1mg [...] past for anxiety PRN. Was hospitalized at [facility] with suicidal ideations & ACRHF in Feb 2024. -Clonidine 0.1 mg 3 times a day PRN Assessment & Plan (04/23/2024 9:51 AM EST): No home meds, although patient has Clonidine as prescribed in the past for anxiety PRN. Was hospitalized at [facility] with suicidal ideations & ACRHF in Feb 2024. -Clonidine 0.1 mg 3 times a day PRN Assessment & Plan (04/22/2024 9:22 AM EST): No home meds, although patient has Clonidine as prescribed in the past for anxiety PRN. Was hospitalized at [facility] with suicidal ideations & ACRHF in Feb 2024. -Clonidine 0.1 mg 3 times a day PRN Assessment & Plan (04/21/2024 9:58 AM EST): No home meds, although patient has Clonidine as prescribed in the past for anxiety PRN. Was hospitalized at [facility] with suicidal ideations & ACRHF in Feb 2024. -Clonidine 0.1 mg 3 times a day PRN Assessment & Plan (04/20/2024 11:03 AM EST): No home meds, although patient has Clonidine as prescribed in the past for anxiety PRN. Was hospitalized at [facility] with suicidal ideations & ACRHF in Feb 2024. -Clonidine 0.1 mg 3 times a day PRN Assessment & Plan (04/19/2024 12:45 PM EST): No home meds, although patient has Clonidine as prescribed in the past for anxiety PRN. Was hospitalized at [facility] with suicidal ideations & ACRHF in Feb [...] to re-establish care with PCP. He said [facility] program is helping him with this [...] (05/22/2024 1:21 PM EST): Patient presenting from [facility] with acute hypoxia, placed on [...] 11:29 AM EST): Patient was brought from [facility] due to developing altered mental status (lethargy) after x1 valium for alcohol withdrawal. Immediately became hypoxic with aspiration episode and briefly needed supplemental oxygen, then was sent to [facility] for evaluation. Patient's mental status was back to baseline on 1/4 PM. Last drink was 04/16/24 prior to admission to [facility] on same day. CT head neg. -CIWA protocol with Ativan, discontinued as pt non-scoring -Folic acid & thiamine PO daily -Seizure precautions -SW consulted for AUD. Assessment & Plan (04/23/2024 9:51 AM EST): Patient was brought from [facility] due to developing altered mental status (lethargy) after x1 valium for alcohol withdrawal. Immediately became hypoxic with aspiration episode and briefly needed supplemental oxygen, then was sent to [facility] for evaluation. Patient's mental status was back to baseline on 1/4 PM. Last drink was 04/16/24 prior to admission to [facility] on same day. CT head neg. -CIWA protocol with Ativan, discontinued as pt non-scoring -Folic acid & thiamine PO daily -Seizure precautions -SW consulted for AUD. Assessment & Plan (04/22/2024 9:22 AM EST): Patient was brought from [facility] due to developing altered mental status (lethargy) after x1 valium for alcohol withdrawal. Immediately became hypoxic with aspiration episode and briefly needed supplemental oxygen, then was sent to [facility] for evaluation. Patient's mental status was back to baseline on 1/ PM. Last drink was 04/16/24 prior to admission to [facility] on same day. CT head neg. -CIWA protocol with Ativan, discontinued as pt non-scoring -Folic acid & thiamine PO daily -Seizure precautions -SW consulted for AUD. Assessment & Plan (04/21/2024 9:58 AM EST): Patient was brought from [facility] due to developing altered mental status (lethargy) after x1 valium for alcohol withdrawal. Immediately became hypoxic with aspiration episode and briefly needed supplemental oxygen, then was sent to [facility] for evaluation. Patient's mental status was back to baseline on 1/4 PM. Last drink was 04/16/24 prior to admission to [facility] on same day. CT head neg. -CIWA protocol with Ativan, discontinued as pt non-scoring -Folic acid & thiamine PO daily -Seizure precautions -SW consulted for AUD. Assessment & Plan (04/20/2024 11:03 AM EST): Patient was brought from [facility] due to developing altered mental status (lethargy) after x1 valium for alcohol withdrawal. Immediately became hypoxic with aspiration episode and briefly needed supplemental oxygen, then was sent to [facility] for evaluation. Patient's mental status was back to baseline on 1/4 PM. Last drink was 04/16/24 prior to admission to [facility] on same day. CT head neg. -CIWA protocol with Ativan -Folic acid & thiamine PO daily -Seizure precautions -SW consulted for AUD. Assessment & Plan (04/19/2024 12:45 PM EST): Patient was brought from [facility] due to developing altered mental status (lethargy) after x1 valium for alcohol withdrawal. Immediately became hypoxic with aspiration episode and briefly needed supplemental oxygen, then was sent to [facility] for evaluation. Patient's mental status was back to baseline on 04/18 PM. Last drink was 04/16/24 prior to admission to [facility] on same day. CT head neg. -CIWA protocol with Ativan -Folic acid & thiamine PO daily -Seizure precautions -SW consulted for alcoholism. Assessment & Plan (04/18/2024 9:52 PM EST): 58 years old male, chronic alcohol abuse and GERD, transferred from [facility]. Patient has been admitted for alcohol detoxification, patient received Valium and post therapy developed respiratory distress, developed hypoxia and transferred to [facility] via EMS Plan: 1-CIWA protocol 2- [...] Flagyl, Rocephin. Patient was recently admitted at [facility] for AHRF and Suicidal ideations. -04/20/24 CT [...] Flagyl, Rocephin. Patient was recently admitted at [facility] for AHRF and Suicidal ideations. -04/20/24 CT [...] Flagyl, Rocephin. Patient was recently admitted at [facility] for AHRF and Suicidal ideations. -04/20/24 CT [...] Flagyl, Rocephin. Patient was recently admitted at [facility] for AHRF and Suicidal ideations. -04/20/24 CT [...] Flagyl, Rocephin. Patient was recently admitted at [facility] for AHRF and Suicidal ideations. -MRSA PCR [...] Flagyl, Rocephin. Patient was recently admitted at [facility] for AHRF and Suicidal ideations. -MRSA PCR [...] - 06/16/2024 12:59 PM EST Hospital Encounter [facility] [address] [place] [address] John Mello MD Li, MD Ayleen PhD Sara, MD Kasandra Slaughter, MD Ron Christian, MD Buddy Fonseca Robina, MD Egbuonu, Nonso E., MD Pradeep, Jithu, MD Hebert, Christine M., MD Acute on chronic congestive heart failure, unspecified heart failure type (Primary Dx) Discharge Disposition: Home or Self Care () 05/21/2024 3:56 PM EST - 05/25/2024 2:18 PM EST Hospital Encounter [facility] [address] [place] [id number] Maryanne Reece MD Marchetta, Alexandra, MD El-Hayek, Mikey Serrano MD Chronic obstructive pulmonary disease with acute exacerbation (Primary Dx) Discharge Disposition: Short Term/Acute Care [facility] () 04/29/2024 2:19 PM EST - 05/06/2024 2:31 PM EST Hospital Encounter [facility] [address] [place] [address] Shanti Ortez MD Aleksandrovich, Yury, MD Madireddy, Shashidhar Reddy, MD Eisenstock, Kimberly D., Nate Barrera, DO Molis, Carissa B, MD Anil Chauhan MD Adaramola, Oluwaseun O., MD COVID (Primary Dx) Discharge Disposition: Home or Self Care () 04/18/2024 11:57 AM EST - 04/24/2024 5:55 PM EST Hospital Encounter [facility] [address] [address] Shanita Matos MD Bradley, Evan S., MD [...] drink = 0.6 oz pur e alcohol) [facility] Utilities Answer Date Recorded In the past 12 months has e [employer], gas, oil, or water [employer] threatened to shut off services in your [...] Screening Completed 06/05/2024 Procedures * Due to [place] state law, this organization might not be [...] to Health Maintenance Results * Due to [place] state law, this organization might not be sharing negative HIV tests. * Magnesium (06/16/2024 8:26 AM EST) Only the most recent of16 resultswithin the time period is included. MG 2.4 1.6 - 2.4 mg/dL 06/16/2024 10:05 AM EST [facility] Blood Structure of peripheral vein / Unknown Venipuncture / Unknown 06/16/2024 8:26 AM EST 06/16/2024 9:05 AM EST us Oswaldo Slaughter MD LAB BLOOD ORDERABLES Fin al Result [facility] [address] [place] [id number], [place] * (ABNORMAL) Basic metabolic panel (06/16/2024 8:26 AM EST) Only the most recent of20 resultswithin the time period is included. NA 138 135 - 145 mmol/L 06/16/2024 10:05 AM [facility] K 4.6 3.5 - 5.3 mmol/L 06/16/2024 10:05 AM [facility] Cl 98 98 - 107 mmol/L 06/16/2024 10:05 AM [facility] CO2 25 22 - 32 mmol/L 06/16/2024 10:05 AM [facility] BUN 20 7 - 23 mg/dL 06/16/2024 10:05 AM [facility] Creatinine 0.84 0.60 - 1.30 mg/dL 06/16/2024 10:05 AM [facility] Glucose 124(H) 65 - 99 mg/dL 06/16/2024 10:05 AM [facility] Calcium 9.1 8.6 - 10.5 mg/dL 06/16/2024 10:05 AM [facility] Anion Gap 15 5 - 15 06/16/2024 10:05 AM [facility] eGFR >90 >=60 mL/min/1. 73m2 06/16/2024 10:05 AM [facility] Comment:The estimated glomer ular filtration [...] MD LAB BLOOD ORDERABLES Fin al Result [facility] [address] [place] [address], [place] * (ABNORMAL) CBC Auto Differential (06/15/2024 10:41 AM EST) Only the most recent of20 resultswithin the time period is included. WBC 6.4 3.8 - 10.8 10*3/uL 06/15/2024 11:02 AM EST [facility] RBC 4.63 4.20 - 5.80 10*6/uL 06/15/2024 11:02 AM EST [facility] Hemoglobin 10.1(L) 13.2 - 17.1 g/dL 06/15/2024 11:02 AM EST [facility] Hematocrit 35.2(L) 38.5 - 50.0 % 06/15/2024 11:02 AM EST [facility] MCV 76.0(L) 80.0 - 100.0 fL 06/15/2024 11:02 AM EST [facility] MCH 21.8(L) 27.0 - 33.0 pg 06/15/2024 11:02 AM EST [facility] MCHC 28.7(L) 32.0 - 36.0 g/dL 06/15/2024 11:02 AM EST [facility] RDW 18.6(H) 11.0 - 15.0 % 06/15/2024 11:02 AM EST [facility] Platelets 279 140 - 400 10*3/uL 06/15/2024 11:02 AM EST [facility] MPV 10.0 7.5 - 12.5 fL 06/15/2024 11:02 AM [facility] Neutrophil % 63.3 % 06/15/2024 11:02 AM [facility] Immature Grans % 0.3 0.0 - 0.9 % 06/15/2024 11:02 AM [facility] Lymphocyte % 22.3 % 06/15/2024 11:02 AM [facility] Monocyte % 10.6 % 06/15/2024 11:02 AM [facility] Eosinophil % 2.7 % 06/15/2024 11:02 AM [facility] Basophil % 0.8 % 06/15/2024 11:02 AM [facility] Neutrophil # 4.06 1.50 - 7.80 10*3/uL 06/15/2024 11:02 AM [facility] Immature Grans # <0.03 <=0.03 10*3/uL 06/15/2024 11:02 AM [facility] Lymphocyte # 1.40 0.85 - 3.90 10*3/uL 06/15/2024 11:02 AM [facility] Monocyte # 0.70 0.20 - 0.95 10*3/uL 06/15/2024 11:02 AM [facility] Eosinophil # 0.20 0.02 - 0.50 10*3/uL 06/15/2024 11:02 AM [facility] Basophil # 0.10 0.00 - 0.20 10*3/uL 06/15/2024 11:02 AM [facility] nRBC % 0.0 /100 WBCs 06/15/2024 11:02 AM [facility] nRBC # <0.01 <0.01 10*3/uL 06/15/2024 11:02 AM EST [facility] Blood Structure of peripheral vein / Unknown Venipuncture / Unknown 06/15/2024 10:41 AM EST 06/15/2024 10:52 AM EST us Giulia Winston MD LAB BLOOD ORDERABLES Claudetet l Result Performing Organization Address City/[facility]/ZIP Co de Phone Number [facility] [address] [place] [address], [place] * Lavender Top (06/14/2024 7:05 AM EST) Extra Tube Hold for add-ons. 06/14/2024 12:05 PM EST [facility] Comment:Auto resulted. Blood Structure of peripheral vein / Unknown 06/14/2024 7:05 AM EST 06/14/2024 7:05 AM EST Serafin Leung MD LAB BLOOD ORDERABLES Final R esult Performing Organization Address [facility] de Phone Number [facility] [address] [place] [address], * (ABNORMAL) Vancomycin, Trough (06/13/2024 9:12 PM EST) Only the most recent of2 resultswithin the time period is included. Vancomycin Trough <4.0(L) 10.0 - 20.0 ug/mL 06/13/2024 9:54 PM EST [facility] Comment: Before interpreting [...] ORDERABLES Final Resu lt Performing Organization Address City/[facility] Co de Phone Number [facility] [address] [place] [address], * Phosphorus (06/11/2024 8:05 AM EST) Only the most recent of5 resultswithin the time period is included. Phosphorus 3.1 2.5 - 4.5 mg/dL 06/11/2024 9:18 AM EST [facility] Blood Structure of peripheral vein / Unknown Venipuncture / Unknown 06/11/2024 8:05 AM EST 06/11/2024 8:29 AM EST us Oswaldo Slaughter MD LAB BLOOD ORDERABLES Fin al Result Performing Organization Address [facility] Co de Phone Number [facility] [address] [place] [address], [place] * TRANSTHORACIC ECHO (TTE) COMPLETE (06/08/2024 [...] 135 - 145 mmol/L 06/08/2024 8:24 AM [facility] K 4.6 3.5 - 5.3 mmol/L 06/08/2024 8:24 AM [facility] Cl 101 98 - 107 mmol/L 06/08/2024 8:24 AM [facility] CO2 32 22 - 32 mmol/L 06/08/2024 8:24 AM [facility] Anion Gap 10 5 - 15 06/08/2024 8:24 AM [facility] Glucose 93 65 - 99 mg/dL 06/08/2024 8:24 AM [facility] BUN 13 7 - 23 mg/dL 06/08/2024 8:24 AM [facility] Creatinine 0.76 0.60 - 1.30 mg/dL 06/08/2024 8:24 AM [facility] Calcium 8.6 8.6 - 10.5 mg/dL 06/08/2024 8:24 AM [facility] Phosphorus 3.3 2.5 - 4.5 mg/dL 06/08/2024 8:24 AM [facility] Albumin 4.0 3.5 - 5.2 g/dL 06/08/2024 8:24 AM [facility] eGFR >90 >=60 mL/min/1. 73m2 06/08/2024 8:24 AM [facility] Comment:The estimated glomer ular filtration [...] MD LAB BLOOD ORDERABLES Final Resu lt [facility] [address] [place] [address], * (ABNORMAL) MRSA/S aureus PCR, Nasal (06/06/2024 9:12 AM EST) Pathologist [facility] MRSA PCR, Nasal NOT DETECTED NOT DETECTED 06/07/2024 9:32 AM EST [facility] S. aureus PCR, Nasal DETECTED(A) NOT DETECTED 06/07/2024 9:32 AM EST [facility] Swab Nasal structure / Unknown Non-Blood Collection / Unknown 06/06/2024 9:12 AM EST 06/06/2024 9:19 AM EST Narrative [facility] - 06/07/2024 9:32 AM EST [facility] Received Date: Sukhjinder Ruiz MD LAB BODY FLUIDS AND STOOLS JENSEN EDEN Final Result Performing Organization Address City/[facility] Co de Phone Number [facility] [address], [place] [address], [facility] [address] [facility] [address], [place] [address], [place] [phone] * (ABNORMAL) Blood gas, venous (06/05/2024 5:46 PM EST) Pathologist [facility] pH, Venous 7.36 7.31 - 7.41 06/05/2024 5:54 PM EST [facility] pCO2, Venous 65.0(H) 41.0 - 51.0 mm[Hg] 06/05/2024 5:54 PM EST [facility] pO2, Yovani 223.0(H) 35.0 - 40.0 mm[Hg] 06/05/2024 5:54 PM EST [facility] HCO3, Venous 37(H) 22 - 26 mmol/L 06/05/2024 5:54 PM EST [facility] O2 Sat, Venous 93.1(H) 70.0 - 75.0 % 06/05/2024 5:54 PM EST [facility] Base Excess, Yovani 9.2(H) -3.0 - 3.0 mmol/L 06/05/2024 5:54 PM EST [facility] Blood Structure of peripheral vein / Unknown Venipuncture / Unknown 06/05/2024 5:46 PM EST 06/05/2024 5:49 PM EST us John Mello MD LAB BLOOD ORDERABLES Final Re sult [facility] [address] [place] [address], [place] * (ABNORMAL) Repeat Troponin #1 (06/05/2024 4:54 PM EST) Only the most recent of5 resultswithin the time period is included. Troponin T High Sensitivity 34(H) <=21 ng/L 06/05/2024 5:39 PM EST [facility] Comment: [id number] level of 52 ng/L or higher at [...] be evaluated in line with the 4th [place] Definition of AMI. Troponin baseline and serial [...] MD LAB BLOOD ORDERABLES Final Re sult [facility] [address] [place] [address], [place] * XR Chest Portable 1 View [...] obtain the completed interpretation. ? Workstation ID: [id number] Narrative 06/05/2024 4:39 PM EST COMPARISON: Chest x-ray 05/21/2024 FINDINGS AND Resulting Agency Comment [id number] Procedure Note Brady Kahn MD - 06/05/2024 [...] possible to obtain thecompleted interpretation. Workstation ID: [id number] us John Mello MD IMG XR PROCEDURES Final Resul t * N-terminal ProBrain Natriuretic Peptide (06/05/2024 4:23 PM EST) Only the most recent of2 resultswithin the time period is included. Pro-B-Type Natriuretic Peptide <36 <300 pg/mL 06/05/2024 5:23 PM EST [facility] Comment: Patient Age:? [...] ORDERABLES Final Re sult Performing Organization Address City/[facility]/ZIP Co de Phone Number [facility] [address] [place] [address], [place] * Hepatitis C Antibody w/Reflex to HCV RNA, Quantitative PCR (06/05/2024 4:23 PM EST) Pathologist [facility] Hepatitis C Antibody NON-REACT BRISSA NON-REACT BRISSA 06/06/2024 9:01 AM EST [facility] Comment: HCV antibody was non-reactive. There is no laboratory evidence of HCV infection. In most cases, no further action is required. However, if recent HCV exposure is suspected, a test for HCV RNA (test code 46237) is suggested. For additional information please refer to http://education.[employer]/faq/SSV82g2 (This link is being provided for informational/ educational purposes only.) Blood Structure of peripheral vein / Unknown Venipuncture / Unknown 06/05/2024 4:23 PM EST 06/05/2024 4:44 PM EST Narrative [facility] - 06/06/2024 9:01 AM EST [facility] Received Date: John Mello MD LAB BLOOD ORDERABLES Final Re sult Performing Organization Address City/[facility]/ZIP Co de Phone Number TAMELA CUNNINGHAM [address] [facility] [address], [place] [address], [place] [phone] [facility] [address] [facility] [address], [place] [address], [place] [phone] * (ABNORMAL) CMP - Comprehensive Metabolic Panel (06/05/2024 4:23 PM EST) Pathologist [facility] NA 139 135 - 145 mmol/L 06/05/2024 5:23 PM EST [facility] K 4.5 3.5 - 5.3 mmol/L 06/05/2024 5:23 PM [facility] Cl 102 98 - 107 mmol/L 06/05/2024 5:23 PM [facility] CO2 30 22 - 32 mmol/L 06/05/2024 5:23 PM [facility] Anion Gap 7 5 - 15 06/05/2024 5:23 PM [facility] Glucose 97 65 - 99 mg/dL 06/05/2024 5:23 PM [facility] Creatinine 0.87 0.60 - 1.30 mg/dL 06/05/2024 5:23 PM [facility] Calcium 8.6 8.6 - 10.5 mg/dL 06/05/2024 5:23 PM [facility] Total Protein 6.6 6.0 - 8.0 g/dL 06/05/2024 5:23 PM [facility] Albumin 3.7 3.5 - 5.2 g/dL 06/05/2024 5:23 PM [facility] Bilirubin, Total <0.2(L) 0.2 - 1.2 mg/dL 06/05/2024 5:23 PM [facility] Alkaline Phosphatase 85 35 - 129 U/L 06/05/2024 5:23 PM [facility] AST 27 10 - 40 U/L 06/05/2024 5:23 PM [facility] ALT 23 10 - 40 U/L 06/05/2024 5:23 PM [facility] BUN 13 7 - 23 mg/dL 06/05/2024 5:23 PM [facility] eGFR >90 >=60 mL/min/1 .73m2 06/05/2024 5:23 PM [facility] Comment:The estimated glomer [...] - 4.2 g/dL 06/05/2024 5:23 PM EST [facility] A/G Ratio 1.3(L) 1.5 - 3.0 06/05/2024 5:23 PM EST [facility] Blood Structure of peripheral vein / Unknown Venipuncture / Unknown 06/05/2024 4:23 PM EST 06/05/2024 4:44 PM EST us John Mello MD LAB BLOOD ORDERABLES Final Re sult [facility] [address] [place] [address], * ECG 12 lead (06/05/2024 4:10 PM EST) Only the most recent of3 resultswithin the time period is included. Ventricular Rate EKG 62 BPM MUSE EKG Atrial Rate 62 BPM MUSE EKG PA Interval 146 ms MUSE EKG QRS Interval 84 ms MUSE EKG QT Interval 416 ms MUSE EKG QTC Interval 422 ms MUSE EKG P [place] 55 degrees MUSE EKG R [place] 43 degrees MUSE EKG T Wave [place] 42 degrees MUSE EKG 06/05/2024 4:10 PM [...] Region Laterality Modality Other us Onbase Scan [facility] SCANNED PROCEDURES Final Resu lt * (ABNORMAL) POCT I-STAT Lactate W/VBG, interfaced (05/21/2024 4:53 PM EST) Only the most recent of2 resultswithin the time period is included. Sample Type, POCT Venous 05/21/2024 4:58 PM EST [facility] Lactate, POCT 0.69(L) 0.9 - 1.7 mmol/L 05/21/2024 4:58 PM EST [facility] pH, POCT 7.37 7.31 - 7.41 pH 05/21/2024 4:58 PM EST [facility] pCO2, POCT 51.6(H) 41 - 51 mm Hg 05/21/2024 4:58 PM [facility] pO2, POCT 62(H) 35 - 40 mm Hg 05/21/2024 4:58 PM EST [facility] Base Excess, POCT 4(H) 0 - 3 mmol/L 05/21/2024 4:58 PM [facility] HCO3, POCT 29.7(H) 23 - 28 mmol/L 05/21/2024 4:58 PM EST [facility] TCO2, POCT 31(H) 24 - 29 mmol/L 05/21/2024 4:58 PM [facility] Saturated O2, POCT 90(H) 70 - 75 % 05/21/2024 4:58 PM EST [facility] Naresh's Test, POCT N/A 05/21/2024 4:58 PM EST [facility] Blood 05/21/2024 4:53 PM EST 05/21/2024 4:58 PM EST Maryanne Reece MD LAB POCT ORDERABLES - RIVER CE Final Result [facility] [address] [place] [address], * COVID-19, Flu A/B & RSV RNA PCR, Symptomatic (05/21/2024 4:40 PM EST) Only the most recent of2 resultswithin the time period is included. PCR, SARS CoV-2 RNA Not Detected Not Detected CEPHEID GENEXPERT 05/21/2024 5:46 PM EST [facility] Comment:A Not Detected (Nega [...] A RNA PCR Not Detected Not Detected CEPFonduID GENEXPERT 05/21/2024 5:46 PM EST [facility] Comment:Negative results do not preclude infection and should not be used as the sole basis for diagnosis, treatment or other patient management decisions. Negative results must be combined with clinical observations, patient history, and/or epidemiological information. Flu B RNA PCR Not Detected Not Detected CEPFonduID GENEXPERT 05/21/2024 5:46 PM EST [facility] Comment:Negative results do not preclude infection and should not be used as the sole basis for diagnosis, treatment or other patient management decisions. Negative results must be combined with clinical observations, patient history, and/or epidemiological information. RSV RNA PCR Not Detected Not Detected CEPHEID GENEXPERT 05/21/2024 5:46 PM EST [facility] Comment:Negative results do not preclude infection and should not be used as the sole basis for diagnosis, treatment or other patient management decisions. Negative results must be combined with clinical observations, patient history, and/or epidemiological information. Swab (Nares) Non-Blood Collection / Unknown 05/21/2024 4:40 PM EST 05/21/2024 4:48 PM EST Narrative [facility] - 05/21/2024 5:46 PM EST This test was developed, validated and its performance characteristics determined by [facility]. This test has not been cleared or approved by the U.S. Food and Drug Administration (FDA). FDA Policy for Diagnostic Tests for Coronavirus Disease-2019 during the Public Health Emergency issued June 29, 2019, is followed. Maryanne Reece MD LAB BODY FLUIDS AND STOOLS ORDERABLES Final Result Performing Organization Address City/[facility]/ZIP Co de Phone Number [facility] [address] [place] [address], [place] * Smear Review (05/21/2024 4:34 PM EST) Only the most recent of3 resultswithin the time period is included. Platelet Estimate Adequate Adequate 05/21/2024 5:28 PM EST [facility] RBC Morphology Normal Normal, No clinically significant RBC morphology present (ICSH guidelines, 2015). 05/21/2024 5:28 PM EST [facility] Blood Structure of peripheral vein / Unknown Venipuncture / Unknown 05/21/2024 4:34 PM EST 05/21/2024 4:43 PM EST Maryanne Reece MD LAB BLOOD ORDERABLES Final Result [facility] [address] [place] [address], * Lactic Acid, Plasma (w/Reflex if >2) (05/21/2024 4:34 PM EST) Lactic Acid 0.8 0.5 - 1.9 mmol/L 05/21/2024 5:11 PM EST [facility] Blood Structure of peripheral vein / Unknown Venipuncture / Unknown 05/21/2024 4:34 PM EST 05/21/2024 4:43 PM EST us Maryanne Reece MD LAB BLOOD ORDERABLES Final Result [facility] [address] [place] [address], * (ABNORMAL) Hepatic Function Panel (05/05/2024 8:04 AM EST) Only the most recent of6 resultswithin the time period is included. Total Protein 6.7 6.0 - 8.0 g/dL 05/05/2024 9:17 AM EST [facility] Albumin 3.7 3.5 - 5.2 g/dL 05/05/2024 9:17 AM EST [facility] Globulin, Total 3.0 2.1 - 4.2 g/dL 05/05/2024 9:17 AM EST [facility] Bilirubin, Total 0.2 0.2 - 1.2 mg/dL 05/05/2024 9:17 AM EST [facility] Bilirubin, Direct <0.1 <=0.4 mg/dL 05/05/2024 9:17 AM EST [facility] Alkaline Phosphatase 73 35 - 129 U/L 05/05/2024 9:17 AM EST [facility] AST 19 10 - 40 U/L 05/05/2024 9:17 AM EST [facility] ALT 13 10 - 40 U/L 05/05/2024 9:17 AM EST [facility] Bilirubin, Indirect 05/05/2024 9:17 AM EST [facility] Comment:Unable to calculate A/G Ratio 1.2(L) 1.5 - 3.0 05/05/2024 9:17 AM EST [facility] Blood Structure of peripheral vein / Unknown Venipuncture / Unknown 05/05/2024 8:04 AM EST 05/05/2024 8:33 AM EST Bhargav Roberts MD LAB BLOOD ORDERABLES Claudette l Result Performing Organization Address City/[facility]/ZIP Co de Phone Number [facility] [address] [place] [address], [place] * Streptococcus Pneumoniae Antigen Urine (05/01/2024 4:50 AM EST) Streptococcus pneumoniae Antigen, Urine Negative Negative [facility] 05/01/2024 5:28 AM EST [facility] Urine Urine specimen collection, clean catch / Unknown Non-Blood Collection / Unknown 05/01/2024 4:50 AM EST 05/01/2024 5:03 AM EST Yuki Worthy MD LAB URINE ORDERABLES Fi nal Result Performing Organization Address [facility] Co de Phone Number [facility] [address] [place] [address], * Legionella Antigen, Urine (05/01/2024 4:50 AM EST) Legionella Pneumophilia Urine AG Negative Negative [facility] 05/01/2024 5:28 AM EST [email or web address] Comment:This assay is specif [...] MD LAB URINE ORDERABLES Fi nal Result [facility] [address] [place] [address] * (ABNORMAL) Iron Saturation (04/30/2024 8:21 AM EST) Iron Saturation 4(L) 20 - 50 % 12:58 AM EST [facility] Iron 15(L) 45 - 160 ug/dL 05/01/2024 12:58 AM EST [facility] Transferrin 288 200 - 360 mg/dL 05/01/2024 12:58 AM EST [facility] Total Iron Binding Capacity 360 255 - 450 ug/dL 05/01/2024 12:58 AM EST [facility] Blood Structure of peripheral vein / Unknown Venipuncture / Unknown 04/30/2024 8:21 AM EST 04/30/2024 8:30 AM EST us Yuki Worthy MD LAB BLOOD ORDERABLES Fi nal Result Performing Organization Address [facility]/ZIP Co de Phone Number [facility] [address] [place] [address], * (ABNORMAL) Ferritin (04/30/2024 8:21 AM EST) Ferritin 21.9(L) 23.0 - 336.0 ng/mL 05/01/2024 12:58 AM EST [facility] Blood Structure of peripheral vein / Unknown Venipuncture / Unknown 04/30/2024 8:21 AM EST 04/30/2024 8:30 AM EST [employer] Worthy MD LAB BLOOD ORDERABLES Fi nal Result [facility] [address] [place] [address], * Vitamin B12 (04/30/2024 8:21 AM EST) Vitamin B12 315 232 - 1,245 pg/mL 05/01/2024 12:58 AM EST [facility] Blood Structure of peripheral vein / Unknown Venipuncture / Unknown 04/30/2024 8:21 AM EST 04/30/2024 8:30 AM EST Yuki Worthy MD LAB BLOOD ORDERABLES Fi nal Result [facility] [address] [place] [address], * Staph Aureus Screen Culture (04/29/2024 3:39 PM EST) Culture No Staphylococcus aureus isolated 05/02/2024 5:44 AM EST [employer] [facility] Swab Nasal structure / Unknown Non-Blood Collection / Unknown 04/29/2024 3:39 PM EST 04/29/2024 4:22 PM EST Narrative [facility] - 05/02/2024 5:44 AM EST [facility] Received Date: MICRO NUMBER: [id number] SPECIMEN QUALITY: Adequate SOURCE: SWAB NOSE STATUS: FINAL Rocio Blanc MD LAB MICROBIOLOGY - [facility] JENSEN HARMON Final Result Performing Organization Address City/[facility]/ZIP Co de Phone Number [facility] [address] [facility] [address], [place] [address], [facility] [address] [facility] [address], [place] [address], * X-Ray Chest 2 Views (04/29/2024 12:13 [...] obtain the completed interpretation. ? Workstation ID: [id number] Narrative 04/29/2024 1:00 PM EST XR CHEST [...] body heights are preserved. Resulting Agency Comment [id number] Procedure Note Shiva Bryant MD - 04/29/2024 [...] possible to obtain thecompleted interpretation. Workstation ID: [id number] Shanti Ortez MD IMG XR PROCEDURES Fi nal Result * Rapid COVID-19 RNA for Surveillance (04/25/2024 4:51 PM EST) PCR, SARS CoV-2 RNA Not Detected Not Detected CEPHEID GENEXPERT 04/25/2024 5:35 PM EST [facility] Comment:A Not Detected (Nega [...] 4:51 PM EST 04/25/2024 4:59 PM EST [facility] - 04/25/2024 5:35 PM EST This test was developed, validated and its performance characteristics determined by [facility]. This test has not been cleared or approved by the U.S. Food and Drug Administration (FDA). FDA Policy for Diagnostic Tests for Coronavirus Disease-2019 during the Public Health Emergency issued June 29, 2019, is followed. Mynor Vargas MD LAB BODY FLUIDS AND STOOLS ORDERABLES Final Result [facility] [address] [place] [address], * Asymptomatic COVID-19 RNA (04/24/2024 8:50 AM EST) PCR, SARS CoV-2 RNA Not Detected Not Detected CEPFonduID GENEXPERT 04/24/2024 9:41 AM EST [facility] Comment:A Not Detected (Nega [...] 8:50 AM EST 04/24/2024 8:57 AM EST [facility] - 04/24/2024 9:41 AM EST This test was developed, validated and its performance characteristics determined by [facility]. This test has not been cleared or approved by the U.S. Food and Drug Administration (FDA). FDA Policy for Diagnostic Tests for Coronavirus Disease-2019 during the Public Health Emergency issued June 29, 2019, is followed. Nikolai Gonsalez MD LAB BODY FLUIDS AN D STOOLS ORDERABLES Final Result [facility] [address] [place] [address], [place] * (ABNORMAL) CBC (04/24/2024 7:52 AM EST) Only the most recent of2 resultswithin the time period is included. WBC 9.2 3.8 - 10.8 10*3/uL 04/24/2024 8:15 AM EST [facility] RBC 5.65 4.20 - 5.80 10*6/uL 04/24/2024 8:15 AM EST [facility] Hemoglobin 12.3(L) 13.2 - 17.1 g/dL 04/24/2024 8:15 AM EST [facility] Hematocrit 41.1 38.5 - 50.0 % 04/24/2024 8:15 AM EST [facility] MCV 72.7(L) 80.0 - 100.0 fL 04/24/2024 8:15 AM EST [facility] MCH 21.8(L) 27.0 - 33.0 pg 04/24/2024 8:15 AM EST [facility] MCHC 29.9(L) 32.0 - 36.0 g/dL 04/24/2024 8:15 AM EST [facility] RDW 17.2(H) 11.0 - 15.0 % 04/24/2024 8:15 AM EST [facility] Platelets 337 140 - 400 10*3/uL 04/24/2024 8:15 AM EST [facility] MPV 10.1 7.5 - 12.5 fL 04/24/2024 8:15 AM EST [facility] Blood Structure of peripheral vein / Unknown Venipuncture / Unknown 04/24/2024 7:52 AM EST 04/24/2024 8:08 AM EST Nikolai Gonsalez MD LAB BLOOD ORDERABL ES Final Result [facility] [address] [place] [address], [place] * CT Abdomen Pelvis with Contrast [...] obtain the completed interpretation. ? Workstation ID: [id number] Narrative 04/22/2024 9:27 AM EST EXAMINATION: ?? [...] streak artifact from bilateral total hip arthroplasty. CLIENT CARE CONSULTANT TOPOGRAM: As below LUNG BASES: Motion degraded. [...] outside the cortical bone. Resulting Agency Comment [id number] Procedure Note AmeCarol Ann witt MD - [...] metallic streak artifact from bilateraltotal hip arthroplasty. CLIENT CARE CONSULTANT TOPOGRAM: As below LUNG BASES: Motion degraded. [...] possible to obtain thecompleted interpretation. Workstation ID: [id number] Nikolai Gonsalez MD IMG CT PROCEDURES Final [...] obtain the completed interpretation. ? Workstation ID: [id number] Narrative 04/21/2024 7:45 AM EST Indication: ??Lung [...] in the spine. ?? Resulting Agency Comment [id number] Procedure Note Anastasiia Mcnamara MD - 04/21/2024 [...] possible to obtain thecompleted interpretation. Workstation ID: [id number] Nikolai Gonsalez MD IMG CT PROCEDURES Final Result from Last 3 Months or Most Recently Relevant to Health Maintenance Insurance [facility] AET[employer] MCR Advance Directives Documents on File Type Date Recorded Patient Director Franchise Sales Expl anation Health Care Proxy 04/20/2024 3:47 [...] Castro Sister Health Care Agent Care Teams Online Merchant Relationship Specialty Start Date End Date Patient, Has No Pcp Or Ref DO NOT EDIT THIS RECORD VIA PROVIDER ON THE FLY PCP - General Float Remover 04/17/24
--- OUTSIDE RECORDS SUMMARY | 2024-07-21 09:57 | XMS_ITS | Encounter Summary ---
Author Organization [facility] Address [address] [place] [address] Care Team Providers Care Call Center Associate Name Role Phone Paulo Schwarz Primary Care Provider [phone] Encounter Details Date Type Department Care Team ([facility] st Contact Info) Description 04/22/2017 [facility] Only [facility] Pre-Admission Testing [address] [place] [address] Lexie Rust NP Social History Tobacco Use [...] of this encounter Procedures * Due to [place] state law, this organization might not be [...] in this encounter Results * Due to [place] state law, this organization might not be sharing negative HIV tests. * MRSA CULTURE SCREEN, NASAL ONLY (04/22/2017 12:22 PM EST) Pathologist [facility] Methicillin Resistant Staphylococcus Aureus Screen SEE NOTE [facility] Comment: ??MRSA CULTURE SCREEN ??MICRO NUMBER: ?[id number] ??TEST STATUS: ? FINAL ??SPECIMEN SOURCE: ?? NOT GIVEN ??SPECIMEN QUALITY: ??ADEQUATE ??RESULT: ?No methicillin resistant Staphylococcus aureus ? (MRSA) isolated. 04/22/2017 12:2 2 PM EST 04/22/2017 5:52 PM EST Narrative Resulting Agency Comment [id number] Lexie Rust NP LABORATORY Final Result Performing Organization Address City/State/[facility] Co de Phone Number [facility] [address] [place] [address] * EKG-TO BE READ AND BILLED BY [...] R TG Final Result Performing Organization Address [facility] de Phone Number [facility] EKG [facility] * CULTURE, URINE, ROUTINE (04/22/2017 9:54 AM EST) Bacteria culture (Urine) SEE NOTE [facility] Comment: ??CULTURE, URINE, ROUTINE ??MICRO NUMBER: ?[id number] ??TEST STATUS: ? FINAL ??SPECIMEN SOURCE: ?? NOT GIVEN ??SPECIMEN QUALITY: ??ADEQUATE ??RESULT: ?Single organism less than 10,000 CFU/mL isolated. ? These organisms, commonly found on external and ? internal genitalia, are considered colonizers. ? No further testing performed. 04/22/2017 9:54 AM EST 04/22/2017 2:49 PM EST Narrative Resulting Agency Comment [id number] Lexie Rust NP LABORATORY Final Result Performing Organization Address [facility] de Phone Number [facility] [address] [place] [address] * PROTHROMBIN TIME (PT) (INR), BLOOD (04/22/2017 9:54 AM EST) INR 1.0 [facility] Comment: Reference Range ? 0.9-1.1 Moderate-intensity Warfarin Therapy 2.0-3.0 Higher-intensity Warfarin Therapy ?? 3.0-4.0 PT 10.3 9.0 - 11.5 sec [facility] Comment: For more information on this test, go to: http://education.[employer]/faq/VXU109 04/22/2017 9:54 AM EST 04/22/2017 2:49 PM EST Narrative Resulting Agency Comment [id number] us Lexie Rust PRODUCTION CONTROL ANALYST LAB SAME DAY RESULT Final Re sult Performing Organization Address City/[facility] Co de Phone Number [facility] [address] [place] [address] * (ABNORMAL) CBC INCLUDES DIFFERENTIAL AND PLATELET [...] 2:49 PM EST Narrative Resulting Agency Comment [id number] us Lexie Rust PRODUCTION CONTROL ANALYST LAB SAME DAY RESULT Final Re sult Performing Organization Address City/[facility] Co de Phone Number [facility] [address] [place] [address] * (ABNORMAL) BASIC METABOLIC PANEL WITH (GFR) (04/22/2017 9:54 AM EST) Glucose 79 65 - 99 mg/dL [facility] Comment:Fasting reference in terval Urea Nitrogen Blood (BUN) 6(L) 7 - 25 mg/dL [facility] Creatinine 0.88 0.70 - 1.33 mg/dL [facility] Comment: For patients >49 years of age, the reference limit for Creatinine is approximately 13% higher for people identified as -[place]. GFR 100 > OR = 60 mL/min/1. [...] needs for GFR calculation. Resulting Agency Comment [id number] Lexie Rust NP LABORATORY Final Result [facility] [address] [place] [address] documented in this encounter Visit Diagnoses Diagnosis Pre-operative examination Preoperative examination, unspecified Primary osteoarthritis of right knee Primary localized osteoarthrosis, lower leg Sleep apnea, unspecified type Increased frequency of urination Urinary frequency documented in this encounter Care Teams Call Center Associate Relationship Specialty Start Date End Date Paulo Schwarz [address] [place] [address] [place] [address] PCP - General 01/07/08 documented as of this encounter
--- OUTSIDE RECORDS SUMMARY | 2024-07-21 09:57 | XMS_ITS | Clinical Summary ---
Author Organization [facility] [place] Address [address] [place] [address] Care Team Providers Care Agronomist Name Role Phone Unavailable Primary Care Provider [...]
--- OUTSIDE RECORDS SUMMARY | 2024-07-21 09:58 | XMS_ITS | Encounter Summary ---
Author Organization [facility] Address [address] [place] [address] Care Team Providers Care Office Assistant Receptionist Name Role Phone Paulo Schwarz Primary Care Provider [phone] Encounter Details Date Type Department Care Team ([facility] st Contact Info) Description 11/04/2014 Orders Only [facility] [address] [place] [id number] Stuart Herrera NP Social History Tobacco Use [...] of this encounter Results * Due to [place] state law, this organization might not be [...] thigh documented in this encounter Care Teams Office Assistant Receptionist Relationship Specialty Start Date End Date Paulo Schwarz [address] [place] [address] [address] [place], [place] [address] PCP - General 01/07/08 documented as of this encounter
--- OUTSIDE RECORDS SUMMARY | 2024-07-21 09:58 | XMS_ITS | Referral Summary ---
Author Organization [facility] Address [address] [place] [address] Care Team Providers Care Apprenticeship Training Representative Name Role Phone Patient, Has No Pcp Or Ref Primary Care Provider Unavailable Encounters * This document contains information received from the source organization and may not represent a complete record from that organization. Date Type Department Care Team Description 06/05/2024 2:44 PM EST - 06/16/2024 12:59 PM EST Hospital Encounter [facility] [address] [place] [address] John Mello MD Li, MD Ayleen PhD Sara, MD Kasandra Slaughter, MD Ron Christian Maria I, MD Yaqub, Robina, MD Egbuonu, Nonso E., MD Pradeep, Jithu, MD Hebert, Christine M., MD Acute on chronic congestive heart failure, unspecified heart failure type (Primary Dx) Discharge Disposition: Home or Self Care () 05/21/2024 3:56 PM EST - 05/25/2024 2:18 PM EST Hospital Encounter [facility] [address] [place] [address] Maryanne Reece MD Marchetta, Alexandra, MD El-Hayek, Andrew P, MD Chronic obstructive pulmonary disease with acute exacerbation (Primary Dx) Discharge Disposition: Short Term/Acute Care [facility] () 04/29/2024 2:19 PM EST - 05/06/2024 2:31 PM EST Hospital Encounter [facility] [address] [place] [id number] Shanti Ortez MD Aleksandrovich, Yury, MD Madireddy, Shashidhar Reddy, MD Eisenstock, Kimberly D., MD Patel, Bhavin B., Carissa Gonzalez MD Pradeep, Jithu, MD Adaramola, MD LOUISE Phillips (Primary Dx) Discharge Disposition: Home or Self Care () 04/18/2024 11:57 AM EST - 04/24/2024 5:55 PM EST Hospital Encounter [facility] [address] [address] Shanita Matos MD Bradley, Evan S., MD [...] AM EST): Patient with COPD presenting from [facility] for hypoxia after he was found [...] a PCP but does not have a road cutter, may benefit from outpatient referral to decrease incidence of hospitalization. On discharge: -prednisone 40mg daily through 05/26 -Ambulatory pulmonology referral placed Assessment & Plan (05/24/2024 10:55 AM EST): Patient with COPD presenting from [facility] for hypoxia after he was found [...] a PCP but does not have a road cutter, may benefit from outpatient referral to decrease incidence of hospitalization. -prednisone 40mg daily x 5 days (D1: 27) -duonebs q4hr PRN -albuterol 2.5mg neb q4hr prn -maintain SpO2 88-92% -Ambulatory pulmonology referral on discharge Assessment & Plan (05/23/2024 3:55 PM EST): Patient with COPD presenting from [facility] for hypoxia after he was found [...] a PCP but does not have a road cutter, may benefit from outpatient referral to decrease incidence of hospitalization. -prednisone 40mg daily x 5 days (D1: 27) -duonebs q4hr scheduled -albuterol 2.5mg neb q4hr prn -maintain SpO2 88-92% -may benefit from pulm outpatient Assessment & Plan (05/22/2024 1:21 PM EST): Patient with COPD presenting from [facility] for hypoxia after he was found [...] a PCP but does not have a road cutter, may benefit from outpatient referral to decrease [...] 100 mg p.o. nightly Patient discharged to [facility] program, they will be assisting him with transitional housing. Discussed with patient that he will need a primary care doctor and he states [facility] program has been helping him organize [...] several hospital admissions for withdrawal, presented from [facility] of acute hypoxic respiratory failure 2/2 [...] several hospital admissions for withdrawal, presented from [facility] of acute hypoxic respiratory failure 2/2 [...] several hospital admissions for withdrawal, presented from [facility] of acute hypoxic respiratory failure 2/2 COPDe. He has been on a 2 day detox from cocaine and alcohol. Reports last use was 05/20. Was given 10 mg of Valium by [facility] due to withdrawal symptoms and CIWA 10. -CIWA with rescue valium -continue home clonidine 0.1mg 3 times a day prn -thiamine, folic acid, Mag Assessment & Plan (05/22/2024 1:21 PM EST): History of cocaine and OUD with several hospital admissions for withdrawal, presented from [facility] of acute hypoxic respiratory failure 2/2 COPDe. He has been on a 2 day detox from cocaine and alcohol. Reports last use was 05/20. Was given 10 mg of Valium by [facility] due to withdrawal symptoms and CIWA 10. -CIWA with rescue valium -continue home clonidine 0.1mg 3 times a day prn -thiamine, folic acid, Mag Assessment & Plan (05/05/2024 11:43 AM EST): History of cocaine and OUD with several hospital admissions for withrawal, presented from [facility] (Section 21) in the setting of COVID. 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 Was on a chlordiazepoxide at rehab, but last alcohol intake > 1 week [facility] SOR[facility] to transfer here -continue home clonidine 0.1mg 3 times a day -continue home baclofen 10mg 3 times a day -CIWA without meds, add if needed -nicotine patch as needed -thiamine and MV daily Assessment & Plan (05/02/2024 10:18 AM EST): History of cocaine and OUD with several hospital admissions for withrawal, presented from [facility] (Section 21) in the setting of COVID. Was on a chlordiazepoxide at rehab, but last alcohol intake > 1 week [facility] S[facility] to transfer here -continue home clonidine 0.1mg 3 times a day -continue home baclofen 10mg 3 times a day -CIWA without meds, add if needed -nicotine patch as needed -thiamine and MV daily Assessment & Plan (05/01/2024 1:12 PM EST): History of cocaine and OUD with several hospital admissions for withrawal, presented from [facility] (Section 21) in the setting of COVID. 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 Established with [facility]. Utox was positive only for cocaine [...] psychotropic medications. Transferred to the hospital from [facility] under Section 21. Was evaluated by psychiatry [...] psychotropic medications. Transferred to the hospital from [facility] under Section 21. Was evaluated by psychiatry [...] psychotropic medications. Transferred to the hospital from [facility] under Section 21. I am unclear at [...] psychotropic medications. Transferred to the hospital from [facility] under Section 21. I am unclear at [...] psychotropic medications. Transferred to the hospital from [facility] under Section 21. I am unclear at this time if he is also under Section 12 (hospitalized for SI 02/2024). Will need to clarify with psychiatry CL here - HOLD loxapine 100 mg [not noted in [facility] MAR] - Continue Z[facility] 10 mg daily [[facility] - Hydroxyzine 25 mg every 8 hours as needed - Pregabalin 75 mg three times a day - Formal psych evaluation requested to help clarify Section and medications Assessment & Plan (04/24/2024 11:29 AM EST): No home meds, although patient has Clonidine as prescribed in the past for anxiety PRN. Was hospitalized at [facility] [place] suicidal ideations & ACRHF in Feb 2024. -Clonidine 0.1 mg 3 times a day PRN Assessment & Plan (04/23/2024 9:51 AM EST): No home meds, although patient has Clonidine as prescribed in the past for anxiety PRN. Was hospitalized at [facility] [place] suicidal ideations & ACRHF in Feb 2024. -Clonidine 0.1 mg 3 times a day PRN Assessment & Plan (04/22/2024 9:22 AM EST): No home meds, although patient has Clonidine as prescribed in the past for anxiety PRN. Was hospitalized at [facility] [place] suicidal ideations & ACRHF in Feb 2024. -Clonidine 0.1 mg 3 times a day PRN Assessment & Plan (04/21/2024 9:58 AM EST): No home meds, although patient has Clonidine as prescribed in the past for anxiety PRN. Was hospitalized at [facility] [place] suicidal ideations & ACRHF in Feb 2024. -Clonidine 0.1 mg 3 times a day PRN Assessment & Plan (04/20/2024 11:03 AM EST): No home meds, although patient has Clonidine as prescribed in the past for anxiety PRN. Was hospitalized at [facility] [place] suicidal ideations & ACRHF in Feb 2024. -Clonidine 0.1 mg 3 times a day PRN Assessment & Plan (04/19/2024 12:45 PM EST): No home meds, although patient has Clonidine as prescribed in the past for anxiety PRN. Was hospitalized at [facility] [place] suicidal ideations & ACRHF in Feb 2024. -Clonidine 0.1 mg 3 times a day PRN AAN (obstructive sleep apnea) 04/19/2024 Assessment & Plan [...] to re-establish care with PCP. He said [facility] program is helping him with this [...] (05/22/2024 1:21 PM EST): Patient presenting from [facility] with acute hypoxia, placed on 4L. [...] 11:29 AM EST): Patient was brought from [facility] due to developing altered mental status (lethargy) after x1 valium for alcohol withdrawal. Immediately became hypoxic with aspiration episode and briefly needed supplemental oxygen, then was sent to [facility] for evaluation. Patient's mental status was back to baseline on 04/18 PM. Last drink was 04/16/24 prior to admission to [facility] on same day. CT head neg. -CIWA protocol with Ativan, discontinued as pt non-scoring -Folic acid & thiamine PO daily -Seizure precautions -SW consulted for AUD. Assessment & Plan (04/23/2024 9:51 AM EST): Patient was brought from [facility] due to developing altered mental status (lethargy) after x1 valium for alcohol withdrawal. Immediately became hypoxic with aspiration episode and briefly needed supplemental oxygen, then was sent to [facility] for evaluation. Patient's mental status was back to baseline on 1/4 PM. Last drink was 04/16/24 prior to admission to [facility] on same day. CT head neg. -CIWA protocol with Ativan, discontinued as pt non-scoring -Folic acid & thiamine PO daily -Seizure precautions -SW consulted for AUD. Assessment & Plan (04/22/2024 9:22 AM EST): Patient was brought from [facility] due to developing altered mental status (lethargy) after x1 valium for alcohol withdrawal. Immediately became hypoxic with aspiration episode and briefly needed supplemental oxygen, then was sent to [facility] for evaluation. Patient's mental status was back to baseline on 1/4 PM. Last drink was 04/16/24 prior to admission to [facility] on same day. CT head neg. -CIWA protocol with Ativan, discontinued as pt non-scoring -Folic acid & thiamine PO daily -Seizure precautions -SW consulted for AUD. Assessment & Plan (04/21/2024 9:58 AM EST): Patient was brought from [facility] due to developing altered mental status (lethargy) after x1 valium for alcohol withdrawal. Immediately became hypoxic with aspiration episode and briefly needed supplemental oxygen, then was sent to [facility] for evaluation. Patient's mental status was back to baseline on 1/4 PM. Last drink was 04/16/24 prior to admission to [facility] on same day. CT head neg. -CIWA protocol with Ativan, discontinued as pt non-scoring -Folic acid & thiamine PO daily -Seizure precautions -SW consulted for AUD. Assessment & Plan (04/20/2024 11:03 AM EST): Patient was brought from [facility] due to developing altered mental status (lethargy) after x1 valium for alcohol withdrawal. Immediately became hypoxic with aspiration episode and briefly needed supplemental oxygen, then was sent to [facility] for evaluation. Patient's mental status was back to baseline on 14 PM. Last drink was 04/16/24 prior to admission to [facility] on same day. CT head neg. -CIWA protocol with Ativan -Folic acid & thiamine PO daily -Seizure precautions -SW consulted for AUD. Assessment & Plan (04/19/2024 12:45 PM EST): Patient was brought from [facility] due to developing altered mental status (lethargy) after x1 valium for alcohol withdrawal. Immediately became hypoxic with aspiration episode and briefly needed supplemental oxygen, then was sent to [facility] for evaluation. Patient's mental status was back to baseline on 14 PM. Last drink was 04/16/24 prior to admission to [facility] on same day. CT head neg. -CIWA protocol with Ativan -Folic acid & thiamine PO daily -Seizure precautions -SW consulted for alcoholism. Assessment & Plan (04/18/2024 9:52 PM EST): 58 years old male, chronic alcohol abuse and GERD, transferred from [facility]. Patient has been admitted for alcohol detoxification, patient received Valium and post therapy developed respiratory distress, developed hypoxia and transferred to [facility] via EMS Plan: 1-CIWA protocol 2- [...] Flagyl, Rocephin. Patient was recently admitted at [facility] [place] AHRF and Suicidal ideations. -04/20/24 CT [...] Flagyl, Rocephin. Patient was recently admitted at [facility] for AHRF and Suicidal ideations. -04/20/24 CT [...] Flagyl, Rocephin. Patient was recently admitted at [facility] [place] AHRF and Suicidal ideations. -04/20/24 CT [...] Flagyl, Rocephin. Patient was recently admitted at [facility] [place] AHRF and Suicidal ideations. -04/20/24 CT [...] Flagyl, Rocephin. Patient was recently admitted at [facility] [place] AHRF and Suicidal ideations. -MRSA PCR [...] Flagyl, Rocephin. Patient was recently admitted at [facility] for AHRF and Suicidal ideations. -MRSA PCR [...] drink = 0.6 oz pur e alcohol) [facility] Utilities Answer Date Recorded In the past 12 months has th e [employer], gas, oil, or water [employer] threatened to shut off services in your [...] Not on file Procedures * Due to [place] state law, this organization might not be [...] to Health Maintenance Results * Due to [place] state law, this organization might not be sharing negative HIV tests. * Magnesium (06/16/2024 8:26 AM EST) Only the most recent of16 resultswithin the time period is included. MG 2.4 1.6 - 2.4 mg/dL 06/16/2024 10:05 AM EST [facility] Blood Structure of peripheral vein / Unknown Venipuncture / Unknown 06/16/2024 8:26 AM EST 06/16/2024 9:05 AM EST us Oswaldo Slaughter MD LAB BLOOD ORDERABLES Fin al Result [facility] [address] [place] [id number], * (ABNORMAL) Basic metabolic panel (06/16/2024 8:26 AM EST) Only the most recent of20 resultswithin the time period is included. Pathologist [facility] NA 138 135 - 145 mmol/L 06/16/2024 10:05 AM [facility] K 4.6 3.5 - 5.3 mmol/L 06/16/2024 10:05 AM [facility] Cl 98 98 - 107 mmol/L 06/16/2024 10:05 AM [facility] CO2 25 22 - 32 mmol/L 06/16/2024 10:05 AM [facility] BUN 20 7 - 23 mg/dL 06/16/2024 10:05 AM [facility] Creatinine 0.84 0.60 - 1.30 mg/dL 06/16/2024 10:05 AM [facility] Glucose 124(H) 65 - 99 mg/dL 06/16/2024 10:05 AM [facility] Calcium 9.1 8.6 - 10.5 mg/dL 06/16/2024 10:05 AM [facility] Anion Gap 15 5 - 15 06/16/2024 10:05 AM EST [facility] eGFR >90 >=60 mL/min/1. 73m2 06/16/2024 10:05 AM EST [facility] Comment:The estimated glomer [...] BLOOD ORDERABLES Fin al Result [facility] [address] [place] [phone], * (ABNORMAL) CBC Auto Differential (06/15/2024 10:41 AM EST) Only the most recent of20 resultswithin the time period is included. WBC 6.4 3.8 - 10.8 10*3/uL 06/15/2024 11:02 AM EST [facility] RBC 4.63 4.20 - 5.80 10*6/uL 06/15/2024 11:02 AM EST [facility] Hemoglobin 10.1(L) 13.2 - 17.1 g/dL 06/15/2024 11:02 AM EST [facility] Hematocrit 35.2(L) 38.5 - 50.0 % 06/15/2024 11:02 AM [facility] MCV 76.0(L) 80.0 - 100.0 fL 06/15/2024 11:02 AM [facility] MCH 21.8(L) 27.0 - 33.0 pg 06/15/2024 11:02 AM [facility] MCHC 28.7(L) 32.0 - 36.0 g/dL 06/15/2024 11:02 AM [facility] RDW 18.6(H) 11.0 - 15.0 % 06/15/2024 11:02 AM [facility] Platelets 279 140 - 400 10*3/uL 06/15/2024 11:02 AM [facility] MPV 10.0 7.5 - 12.5 fL 06/15/2024 11:02 AM [facility] Neutrophil % 63.3 % 06/15/2024 11:02 AM [facility] Immature Grans % 0.3 0.0 - 0.9 % 06/15/2024 11:02 AM [facility] Lymphocyte % 22.3 % 06/15/2024 11:02 AM [facility] Monocyte % 10.6 % 06/15/2024 11:02 AM [facility] Eosinophil % 2.7 % 06/15/2024 11:02 AM [facility] Basophil % 0.8 % 06/15/2024 11:02 AM [facility] Neutrophil # 4.06 1.50 - 7.80 10*3/uL 06/15/2024 11:02 AM [facility] Immature Grans # <0.03 <=0.03 10*3/uL 06/15/2024 11:02 AM [facility] Lymphocyte # 1.40 0.85 - 3.90 10*3/uL 06/15/2024 11:02 AM EST [facility] Monocyte # 0.70 0.20 - 0.95 10*3/uL 06/15/2024 11:02 AM EST [facility] Eosinophil # 0.20 0.02 - 0.50 10*3/uL 06/15/2024 11:02 AM EST [facility] Basophil # 0.10 0.00 - 0.20 10*3/uL 06/15/2024 11:02 AM EST [facility] nRBC % 0.0 /100 WBCs 06/15/2024 11:02 AM EST [facility] nRBC # <0.01 <0.01 10*3/uL 06/15/2024 11:02 AM EST [facility] Blood Structure of peripheral vein / Unknown Venipuncture / Unknown 06/15/2024 10:41 AM EST 06/15/2024 10:52 AM EST us Giulia Winston MD LAB BLOOD ORDERABLES Claudette l Result Performing Organization Address City/[facility]/ZIP Co de Phone Number [facility] [address] [place] [address], [place] * Lavender Top (06/14/2024 7:05 AM EST) Extra Tube Hold for add-ons. 06/14/2024 12:05 PM EST [facility] Comment:Auto resulted. Blood Structure of peripheral vein / Unknown 06/14/2024 7:05 AM EST 06/14/2024 7:05 AM EST us Serafin Leung MD LAB BLOOD ORDERABLES Final R esult Performing Organization Address City/[facility]/ZIP Co de Phone Number [facility] [address] [place] [address], [place] * (ABNORMAL) Vancomycin, Trough (06/13/2024 9:12 PM EST) Only the most recent of2 resultswithin the time period is included. Pathologist [facility] Vancomycin Trough <4.0(L) 10.0 - 20.0 ug/mL 06/13/2024 9:54 PM EST [facility] Comment: Before interpreting [...] ORDERABLES Final Resu lt Performing Organization Address City/[facility]/ZIP Co de Phone Number [facility] [address] [place] [address], * Phosphorus (06/11/2024 8:05 AM EST) Only the most recent of5 resultswithin the time period is included. Pathologist [facility] Phosphorus 3.1 2.5 - 4.5 mg/dL 06/11/2024 9:18 AM EST [facility] Blood Structure of peripheral vein / Unknown Venipuncture / Unknown 06/11/2024 8:05 AM EST 06/11/2024 8:29 AM EST us Oswaldo Slaughter MD LAB BLOOD ORDERABLES Fin al Result Performing Organization Address City/[facility]/ZIP Co de Phone Number [facility] [address] [place] [address], [place] * TRANSTHORACIC ECHO (TTE) COMPLETE (06/08/2024 10:22 AM EST) Pathologist [facility] BSA 2.55 m2 LVIDD 5.7 cm LVIDS [...] 135 - 145 mmol/L 06/08/2024 8:24 AM [facility] K 4.6 3.5 - 5.3 mmol/L 06/08/2024 8:24 AM EST [facility] Cl 101 98 - 107 mmol/L 06/08/2024 8:24 AM EST [facility] CO2 32 22 - 32 mmol/L 06/08/2024 8:24 AM [facility] Anion Gap 10 5 - 15 06/08/2024 8:24 AM EST [facility] Glucose 93 65 - 99 mg/dL 06/08/2024 8:24 AM EST [facility] BUN 13 7 - 23 mg/dL 06/08/2024 8:24 AM [facility] Creatinine 0.76 0.60 - 1.30 mg/dL 06/08/2024 8:24 AM [facility] Calcium 8.6 8.6 - 10.5 mg/dL 06/08/2024 8:24 AM [facility] Phosphorus 3.3 2.5 - 4.5 mg/dL 06/08/2024 8:24 AM EST [facility] Albumin 4.0 3.5 - 5.2 g/dL 06/08/2024 8:24 AM EST [facility] eGFR >90 >=60 mL/min/1. 73m2 06/08/2024 8:24 AM EST [facility] Comment:The estimated glomer [...] MD LAB BLOOD ORDERABLES Final Resu lt [facility] [address] [place], [place] [id number], * (ABNORMAL) MRSA/S aureus PCR, Nasal (06/06/2024 9:12 AM EST) MRSA PCR, Nasal NOT DETECTED NOT DETECTED 06/07/2024 9:32 AM EST [facility] S. aureus PCR, Nasal DETECTED(A) NOT DETECTED 06/07/2024 9:32 AM EST [facility] Swab Nasal structure / Unknown Non-Blood Collection / Unknown 06/06/2024 9:12 AM EST 06/06/2024 9:19 AM EST Narrative [facility] 06/07/2024 9:32 AM EST [facility] Received Date: us Sukhjinder Ruiz MD LAB BODY FLUIDS AND STOOLS JENSEN BARROWSTEVE Final Result [facility]AMELA WATTSBANNER MD [facility] [address] [facility] [address], [place] [address], [place] [phone] [facility] [address] [facility] [facility] [address], [place] [address], [place] [phone] * (ABNORMAL) Blood gas, venous (06/05/2024 5:46 PM EST) pH, Venous 7.36 7.31 - 7.41 06/05/2024 5:54 PM EST [facility] PATHOLOGY LABORATORY pCO2, Venous 65.0(H) 41.0 - 51.0 mm[Hg] 06/05/2024 5:54 PM EST [facility] CLINICAL PATHOLOGY LABORATORY pO2, Yovani 223.0(H) 35.0 - 40.0 mm[Hg] 06/05/2024 5:54 PM EST [facility] HCO3, Venous 37(H) 22 - 26 mmol/L 06/05/2024 5:54 PM EST [facility] PATHOLOGY LABORATORY O2 Sat, Venous 93.1(H) 70.0 - 75.0 % 06/05/2024 5:54 PM EST [facility] PATHOLOGY LABORATORY Base Excess, Yovani 9.2(H) -3.0 - 3.0 mmol/L 06/05/2024 5:54 PM EST [facility] PATHOLOGY LABORATORY Blood Structure of peripheral vein / Unknown Venipuncture / Unknown 06/05/2024 5:46 PM EST 06/05/2024 5:49 PM EST us John Mello MD LAB BLOOD ORDERABLES Final Re sult [facility] CL[facility] PATHOLOG[facility] LABORATORY [address] [place] [address], [place] * (ABNORMAL) Repeat Troponin #1 (06/05/2024 4:54 PM EST) Only the most recent of5 resultswithin the time period is included. Troponin T High Sensitivity 34(H) <=21 ng/L 06/05/2024 5:39 PM EST [facility] Comment: Id-Jskhpqxq-X level of 52 ng/L or higher at [...] be evaluated in line with the 4th Henderson Definition of AMI. Troponin baseline and serial [...] BLOOD ORDERABLES Final Re sult [facility] LAB[facility] [address] [place] [address], [place] * XR Chest Portable 1 View [...] obtain the completed interpretation. ? Workstation ID: [id number] Narrative 06/05/2024 4:39 PM EST COMPARISON: Chest x-ray 05/21/2024 FINDINGS AND Resulting Agency Comment [id number] Procedure Note Brady Kahn MD - 06/05/2024 [...] possible to obtain thecompleted interpretation. Workstation ID: [id number] us John Mello MD IMG XR PROCEDURES Final Resul t * N-terminal ProBrain Natriuretic Peptide (06/05/2024 4:23 PM EST) Only the most recent of2 resultswithin the time period is included. Pro-B-Type Natriuretic Peptide <36 <300 pg/mL 06/05/2024 5:23 PM EST [facility] PATH[facility] Comment: Patient Age:? [...] John Mello MD LAB BLOOD ORDERABLES Final [facility] [address] [place] [address], * Hepatitis C Antibody w/Reflex to HCV RNA, Quantitative PCR (06/05/2024 4:23 PM EST) Hepatitis C Antibody NON-REACT BRISSA NON-REACT BRISSA 06/06/2024 9:01 AM EST [facility] Comment: HCV antibody was non-reactive. There is no laboratory evidence of HCV infection. In most cases, no further action is required. However, if recent HCV exposure is suspected, a test for HCV RNA (test code 66632) is suggested. For additional information please refer to http://education.Tellja/faq/YJP37u5 (This link is being provided for informational/ educational purposes only.) Blood Structure of peripheral vein / Unknown Venipuncture / Unknown 06/05/2024 4:23 PM EST 06/05/2024 4:44 PM EST Narrative [facility] - 06/06/2024 9:01 AM EST [facility] Received Date: us John Mello MD LAB BLOOD ORDERABLES Final Re sult [facility] WATTSBANNER MD [facility] [address] [address], [place] [address], [place] [phone] [facility] [address] [facility] 3[address], [place] [address], [place] [phone] * (ABNORMAL) CMP - Comprehensive Metabolic Panel (06/05/2024 4:23 PM EST) NA 139 135 - 145 mmol/L 06/05/2024 5:23 PM EST [facility] K 4.5 3.5 - 5.3 mmol/L 06/05/2024 5:23 PM EST [facility] Cl 102 98 - 107 mmol/L 06/05/2024 5:23 PM EST [facility] CO2 30 22 - 32 mmol/L 06/05/2024 5:23 PM EST [facility] Anion Gap 7 5 - 15 06/05/2024 5:23 PM EST [facility] Glucose 97 65 - 99 mg/dL 06/05/2024 5:23 PM EST [facility] Creatinine 0.87 0.60 - 1.30 mg/dL 06/05/2024 5:23 PM EST [facility] Calcium 8.6 8.6 - 10.5 mg/dL 06/05/2024 5:23 PM EST [facility] Total Protein 6.6 6.0 - 8.0 g/dL 06/05/2024 5:23 PM EST [facility] Albumin 3.7 3.5 - 5.2 g/dL 06/05/2024 5:23 PM EST [facility] Bilirubin, Total <0.2(L) 0.2 - 1.2 mg/dL 06/05/2024 5:23 PM EST [facility] Alkaline Phosphatase 85 35 - 129 U/L 06/05/2024 5:23 PM EST [facility] PATH[facility] LABORAT[facility] AST 27 10 - 40 U/L 06/05/2024 5:23 PM EST [facility] ALT 23 10 - 40 U/L 06/05/2024 5:23 PM EST [facility] BUN 13 7 - 23 mg/dL 06/05/2024 5:23 PM EST [facility] PATH[facility] eGFR >90 >=60 mL/min/1 .73m2 06/05/2024 5:23 PM EST [facility] PATH[facility] Comment:The estimated glomer ular filtration [...] - 4.2 g/dL 06/05/2024 5:23 PM EST [facility] PATHOLOG[facility] LAB[facility] A/G Ratio 1.3(L) 1.5 - 3.0 06/05/2024 5:23 PM EST [facility] PATHOLOG[facility]ORAT[facility] Blood Structure of peripheral vein / Unknown Venipuncture / Unknown 06/05/2024 4:23 PM EST 06/05/2024 4:44 PM EST us John Mello MD LAB BLOOD ORDERABLES Final Re sult [facility] PATHOLOGY LABORATORY [address] [place] [address], [place] * ECG 12 lead (06/05/2024 4:10 PM EST) Only the most recent of3 resultswithin the time period is included. Ventricular Rate EKG 62 BPM MUSE EKG Atrial Rate 62 BPM MUSE EKG RI Interval 146 ms MUSE EKG QRS Interval 84 ms MUSE EKG QT Interval 416 ms MUSE EKG QTC Interval 422 ms MUSE EKG P [place] 55 degrees MUSE EKG R [place] 43 degrees MUSE EKG T Wave [place] 42 degrees MUSE EKG 06/05/2024 4:10 PM EST 06/06/2024 11:54 AM EST Imp[facility] MUSE EKG - 06/06/2024 11:54 AM EST NORMAL SINUS RHYTHM WHEN COMPARED WITH ECG OF 21-MAY-2024 16:30, PREMATURE ATRIAL COMPLEXES ARE NO LONGER PRESENT Confirmed by Paulo Landry ([id number]) on 06/06/2024 11:54:04 AM us John Mlelo MD ECG ORDERABLES Final Result MUSE EKG [...] Type, POCT Venous 05/21/2024 4:58 PM EST [facility], POC Lactate, POCT 0.69(L) 0.9 - 1.7 mmol/L 05/21/2024 4:58 PM EST [facility], POC pH, POCT 7.37 7.31 - 7.41 pH 05/21/2024 4:58 PM EST [facility], [facility]OC pCO2, POCT 51.6(H) 41 - 51 mm Hg 05/21/2024 4:58 PM EST [facility], [facility]OC pO2, POCT 62(H) 35 - 40 mm Hg 05/21/2024 4:58 PM EST [facility], POC Base Excess, POCT 4(H) 0 - 3 mmol/L 05/21/2024 4:58 PM EST [facility], [facility] HCO3, POCT 29.7(H) 23 - 28 mmol/L 05/21/2024 4:58 PM EST [facility], [facility] TCO2, POCT 31(H) 24 - 29 mmol/L 05/21/2024 4:58 PM EST [facility], [facility]OC Saturated O2, POCT 90(H) 70 - 75 % 05/21/2024 4:58 PM EST [facility], [facility]OC Naresh's Test, POCT N/A 05/21/2024 4:58 PM EST [facility], [facility]OC Blood 05/21/2024 4:53 PM EST 05/21/2024 4:58 PM EST us Maryanne Reece MD LAB POCT ORDERABLES - RIVER CE Final Result [facility], [facility] [address] [place] [address], * COVID-19, Flu A/B & RSV RNA PCR, Symptomatic (05/21/2024 4:40 PM EST) Only the most recent of2 resultswithin the time period is included. Pathologist [facility] PCR, SARS CoV-2 RNA Not Detected Not Detected [employer] 05/21/2024 5:46 PM EST [facility] [email or web address] CLINICAL PATHOLOGY LABORATORY Comment:A Not Detected (Nega [...] A RNA PCR Not Detected Not Detected CEPMainstream EnergyID GENEXPERT 05/21/2024 5:46 PM EST [facility] [email or web address] CLINICAL PATHOLOGY LABORATORY Comment:Negative results do not preclude infection and should not be used as the sole basis for diagnosis, treatment or other patient management decisions. Negative results must be combined with clinical observations, patient history, and/or epidemiological information. Flu B RNA PCR Not Detected Not Detected CEPMainstream EnergyID GENEXPERT 05/21/2024 5:46 PM EST [facility] [email or web address] CLINICAL PATHOLOGY LABORATORY Comment:Negative results do not preclude infection and should not be used as the sole basis for diagnosis, treatment or other patient management decisions. Negative results must be combined with clinical observations, patient history, and/or epidemiological information. RSV RNA PCR Not Detected Not Detected CEPM[employer]stream EnergyID GENEXP[employer] 05/21/2024 5:46 PM EST [facility] [email or web address] CLINICAL PATHOLOGY LABORATORY Comment:Negative results do not preclude infection and should not be used as the sole basis for diagnosis, treatment or other patient management decisions. Negative results must be combined with clinical observations, patient history, and/or epidemiological information. Swab (Nares) Non-Blood Collection / Unknown 05/21/2024 4:40 PM EST 05/21/2024 4:48 PM EST Narrative [facility] CLINICAL PATHOLOGY LABORATORY - 05/21/2024 5:46 PM EST This test was developed, validated and its performance characteristics determined by [facility]. This test has not been cleared or approved by the U.S. Food and Drug Administration (FDA). FDA Policy for Diagnostic Tests for Coronavirus Disease-2019 during the Public Health Emergency issued June 29, 2019, is followed. us Maryanne Reece MD LAB BODY FLUIDS AND STOOLS ORDERABLES Final Result [facility] CLINICAL PATHOLOGY LABORATORY [address] [place] [address], * Smear Review (05/21/2024 4:34 PM EST) Only the most recent of3 resultswithin the time period is included. Platelet Estimate Adequate Adequate 05/21/2024 5:28 PM EST [facility] RBC Morphology Normal Normal, No clinically significant RBC morphology present (ICSH guidelines, 2015). 05/21/2024 5:28 PM EST [facility] Blood Structure of peripheral vein / Unknown Venipuncture / Unknown 05/21/2024 4:34 PM EST 05/21/2024 4:43 PM EST Maryanne Reece MD LAB BLOOD ORDERABLES Final Result [facility] [employer] CLINICAL PATHOLOGY LABORATORY [address] [place] [address], * Lactic Acid, Plasma (w/Reflex if >2) (05/21/2024 4:34 PM EST) Lactic Acid 0.8 0.5 - 1.9 mmol/L 05/21/2024 5:11 PM EST [facility] Blood Structure of peripheral vein / Unknown Venipuncture / Unknown 05/21/2024 4:34 PM EST 05/21/2024 4:43 PM EST Maryanne Reece MD LAB BLOOD ORDERABLES Final Result Performing Organization Address City/[facility]/ZIP Co de Phone Number [facility] [employer] CLINICAL PATHOLOGY LABORATORY [address] [place] [address], * (ABNORMAL) Hepatic Function Panel (05/05/2024 8:04 AM EST) Only the most recent of6 resultswithin the time period is included. Total Protein 6.7 6.0 - 8.0 g/dL 05/05/2024 9:17 AM EST [facility] Albumin 3.7 3.5 - 5.2 g/dL 05/05/2024 9:17 AM EST [facility] Globulin, Total 3.0 2.1 - 4.2 g/dL 05/05/2024 9:17 AM EST [facility] Bilirubin, Total 0.2 0.2 - 1.2 mg/dL 05/05/2024 9:17 AM EST [facility] Bilirubin, Direct <0.1 <=0.4 mg/dL 05/05/2024 9:17 AM EST [facility] Alkaline Phosphatase 73 35 - 129 U/L 05/05/2024 9:17 AM EST [employer] CLINICAL PATHOLOGY LABORATORY AST 19 10 - 40 U/L 05/05/2024 9:17 AM EST [facility] ALT 13 10 - 40 U/L 05/05/2024 9:17 AM EST [facility] Bilirubin, Indirect 05/05/2024 9:17 AM EST [facility] Comment:Unable to calculate A/G Ratio 1.2(L) 1.5 - 3.0 05/05/2024 9:17 AM EST [facility] Blood Structure of peripheral vein / Unknown Venipuncture / Unknown 05/05/2024 8:04 AM EST 05/05/2024 8:33 AM EST Bhargav Roberts MD LAB BLOOD ORDERABLES Claudette l Result Performing Organization Address City/[facility] Co de Phone Number [facility]ITALHomeWellnessLA [employer] CLINICAL PATHOLOGY LABORATORY [address] [place] [address], * Streptococcus Pneumoniae Antigen Urine (05/01/2024 4:50 AM EST) Streptococcus pneumoniae Antigen, Urine Negative Negative [facility] 05/01/2024 5:28 AM EST [facility] Urine Urine specimen collection, clean catch / Unknown Non-Blood Collection / Unknown 05/01/2024 4:50 AM EST 05/01/2024 5:03 AM EST Yuki Worthy MD LAB URINE ORDERABLES Fi nal Result Performing Organization Address City/State/[facility] de Phone Number [employer] CLINICAL PATHOLOGY LABORATORY [address] [place] [address], * Legionella Antigen, Urine (05/01/2024 4:50 AM EST) Pathologist [facility] Legionella Pneumophilia Urine AG Negative Negative [facility] 05/01/2024 5:28 AM EST [facility]ITALHomeWellnessLA [employer] CLINICAL PATHOLOGY LABORATORY Comment:This assay is specif [...] ORDERABLES Fi nal Result Performing Organization Address [facility] Phone Number [facility]laNVScreenC[facility] [employer] CLINICAL PATHOLOGY LABORATORY [address] [place] [address], * (ABNORMAL) Iron Saturation (04/30/2024 8:21 AM EST) Pathologist [facility] Iron Saturation 4(L) 20 - 50 % 12:58 AM EST [facility] [employer] CLINICAL PATHOLOGY LABORATORY Iron 15(L) 45 - 160 ug/dL 05/01/2024 12:58 AM EST [facility]ITALScreenC[facility] [employer] CLINICAL PATHOLOGY LABORATORY Transferrin 288 200 - 360 mg/dL 05/01/2024 12:58 AM EST [facility]ALScreenC[facility] [employer] CLINICAL PATHOLOGY LABORATORY Total Iron Binding Capacity 360 255 - 450 ug/dL 05/01/2024 12:58 AM EST [facility] [employer] CLINICAL PATHOLOGY LABORATORY Blood Structure of peripheral vein / Unknown Venipuncture / Unknown 04/30/2024 8:21 AM EST 04/30/2024 8:30 AM EST Yuki Worthy MD LAB BLOOD ORDERABLES Fi nal Result Performing Organization Address [facility] Co de Phone Number [facility] [email or web address] CLINICAL PATHOLOGY LABORATORY [address] [place] [address], * (ABNORMAL) Ferritin (04/30/2024 8:21 AM EST) Ferritin 21.9(L) 23.0 - 336.0 ng/mL 05/01/2024 12:58 AM EST [facility] [employer] CLINICAL PATHOLOGY LABORATORY Blood Structure of peripheral vein / Unknown Venipuncture / Unknown 04/30/2024 8:21 AM EST 04/30/2024 8:30 AM EST Yuki Worthy MD LAB BLOOD ORDERABLES Fi nal Result [facility] PATHOLOG[facility] LABORATORY [address] [place] [address], * Vitamin B12 (04/30/2024 8:21 AM EST) Pathologist [facility] Vitamin B12 315 232 - 1,245 pg/mL 05/01/2024 12:58 AM EST [facility] [email or web address] CLINICAL PATHOLOGY LABORATORY Blood Structure of peripheral vein / Unknown Venipuncture / Unknown 04/30/2024 8:21 AM EST 04/30/2024 8:30 AM EST Yuki Worthy MD LAB BLOOD ORDERABLES Fi nal Result [facility] PATHOLOGY LABORATORY [address] [place] [address], [place] * Staph Aureus Screen Culture (04/29/2024 3:39 PM EST) Culture No Staphylococcus aureus isolated 05/02/2024 5:44 AM EST [employer] [facility] Swab Nasal structure / Unknown Non-Blood Collection / Unknown 04/29/2024 3:39 PM EST 04/29/2024 4:22 PM EST Narrative [facility] 05/02/2024 5:44 AM EST [facility] Received Date: MICRO NUMBER: [id number] SPECIMEN QUALITY: Adequate SOURCE: SWAB NOSE STATUS: FINAL Rocio Blanc MD LAB MICROBIOLOGY - GENERAL ORDSaad EDEN Final Result [facility] [address], [place] [address], [place] [phone] [employer] [facility] [address], [place] [address], [place] [phone] * X-Ray Chest 2 Views (04/29/2024 12:13 [...] obtain the completed interpretation. ? Workstation ID: [id number] Narrative 04/29/2024 1:00 PM EST XR CHEST [...] body heights are preserved. Resulting Agency Comment [id number] Procedure Note Shiva Bryant MD - 04/29/2024 [...] possible to obtain thecompleted interpretation. Workstation ID: [id number] Shanti Ortez MD IMG XR PROCEDURES Fi nal Result * Rapid COVID-19 RNA for Surveillance (04/25/2024 4:51 PM EST) PCR, SARS CoV-2 RNA Not Detected Not Detected [employer] 04/25/2024 5:35 PM EST [facility] Comment:A Not Detected (Nega [...] PM EST 04/25/2024 4:59 PM EST Narrative [facility] - 04/25/2024 5:35 PM EST This test was developed, validated and its performance characteristics determined by [facility]. This test has not been cleared or approved by the U.S. Food and Drug Administration (FDA). FDA Policy for Diagnostic Tests for Coronavirus Disease-2019 during the Public Health Emergency issued June 29, 2019, is followed. us Mynor Vargas MD LAB BODY FLUIDS AND STOOLS ORDERABLES Final Result [facility] CL[facility]ICAL PATHOLOG[facility] LABORATORY [address] [place] [address], * Asymptomatic COVID-19 RNA (04/24/2024 8:50 AM EST) PCR, SARS CoV-2 RNA Not Detected Not Detected [employer] 04/24/2024 9:41 AM EST [facility] CLINICAL PATHOLOGY LABORATORY Comment:A Not Detected (Nega [...] 8:50 AM EST 04/24/2024 8:57 AM EST [facility] [employer] CLINICAL PATHOLOGY LABORATORY - 04/24/2024 9:41 AM EST This test was developed, validated and its performance characteristics determined by [facility]. This test has not been cleared or approved by the U.S. Food and Drug Administration (FDA). FDA Policy for Diagnostic Tests for Coronavirus Disease-2019 during the Public Health Emergency issued June 29, 2019, is followed. Nikolai Gonsalez MD LAB BODY FLUIDS AN D STOOLS ORDERABLES Final Result [facility] [employer] CLINICAL PATHOLOGY LABORATORY [address] [place] [address], * (ABNORMAL) CBC (04/24/2024 7:52 AM EST) Only the most recent of2 resultswithin the time period is included. WBC 9.2 3.8 - 10.8 10*3/uL 04/24/2024 8:15 AM EST [facility]IN[facility] PATHOLOG[facility] LABORAT[facility] RBC 5.65 4.20 - 5.80 10*6/uL 04/24/2024 8:15 AM EST [facility] PATHOLOGY LABOR[facility] Hemoglobin 12.3(L) 13.2 - 17.1 g/dL 04/24/2024 8:15 AM EST [facility] CLINICAL PATHOLOGY LABORATORY Hematocrit 41.1 38.5 - 50.0 % 04/24/2024 8:15 AM EST [facility] CLINICAL PATHOLOGY LABORATORY MCV 72.7(L) 80.0 - 100.0 fL 04/24/2024 8:15 AM EST [facility] MCH 21.8(L) 27.0 - 33.0 pg 04/24/2024 8:15 AM EST [facility] MCHC 29.9(L) 32.0 - 36.0 g/dL 04/24/2024 8:15 AM EST [facility] RDW 17.2(H) 11.0 - 15.0 % 04/24/2024 8:15 AM EST [facility] Platelets 337 140 - 400 10*3/uL 04/24/2024 8:15 AM EST [facility] MPV 10.1 7.5 - 12.5 fL 04/24/2024 8:15 AM EST [facility] Blood Structure of peripheral vein / Unknown Venipuncture / Unknown 04/24/2024 7:52 AM EST 04/24/2024 8:08 AM EST Nikolai Gonsalez MD LAB BLOOD ORDERABL ES Final Result [facility] CL[facility]ICAL PATHOLOGY LABORATORY [address] [place] [address], [place] * CT Abdomen Pelvis with Contrast [...] obtain the completed interpretation. ? Workstation ID: [id number] Narrative 04/22/2024 9:27 AM EST EXAMINATION: ?? [...] streak artifact from bilateral total hip arthroplasty. DRESS OPERATOR TOPOGRAM: As below LUNG BASES: Motion [...] outside the cortical bone. Resulting Agency Comment [id number] Procedure Note Carol Ann Mccloud MD - [...] metallic streak artifact from bilateraltotal hip arthroplasty. DRESS OPERATOR TOPOGRAM: As below LUNG BASES: Motion [...] possible to obtain thecompleted interpretation. Workstation ID: [id number] Nikolai Gonsalez MD IMG CT PROCEDURES Final [...] obtain the completed interpretation. ? Workstation ID: [id number] Narrative 04/21/2024 7:45 AM EST Indication: ??Lung [...] in the spine. ?? Resulting Agency Comment [id number] Procedure Note Anastasiia Mcnamara MD - 04/21/2024 [...] possible to obtain thecompleted interpretation. Workstation ID: [id number] Nikolai Gonsalez MD IMG CT PROCEDURES Final Result from Last 3 Months or Most Recently Relevant to Health Maintenance Insurance [facility] Advance Directives Documents on File Type Date Recorded Patient Credit Processor Expl anation Health Care Proxy 04/20/2024 3:47 [...] Agents on File Name Relationship Healthcare Agent [facility] Communication Ira Castro [facility] Health Care Agent Care Teams Apprenticeship Training Representative Relationship Specialty Start Date End Date Patient, Has No Pcp Or Ref DO NOT EDIT THIS RECORD VIA PROVIDER ON THE FLY PCP - General Gizzard Skin Remover 04/17/24
[2024-07-21 10:10] LABS: Alanine Aminotransferase 16 U/L (0-40); Albumin Level 4.1 g/dL (3.5-5.0); Alkaline Phosphatase 110 U/L (39-117); Anion Gap 12 (12-20); Aspartate Amino Transferase 31 U/L (5-37); Bilirubin Total 0.5 mg/dL (0.0-1.0); Blood Urea Nitrogen 13 mg/dL (9-16); Calcium 9.5 mg/dL (8.4-10.2); Carbon Dioxide 27 mmol/L (22-29); Chloride 106 mmol/L (96-108); Estimated Glomerular Filt Rate > 60; Glucose Fasting 95 mg/dL (60-99); Potassium 4.6 mmol/L (3.3-5.1); Sodium 140 mmol/L (135-145); Total Protein 7.2 g/dL (6.5-8.0)
[2024-07-21 10:32] LABS: Prostate Specific Antigen Scr 1.16 ng/mL (<0.05-4.0)
[2024-07-21 11:14] LABS: Microalbum/Creatinine Ratio Ur 29.4 ug/mg cr (<30)
[2024-07-22 08:48] LABS: NT-proBNP 102 pg/mL (<125)
== END 2024-07-21 08:04 | disposition home or self-care (01) ==
LOC: HO.LAB 08:03
PROVIDERS: PCP Physician Assistant; Visit Provider Physician Assistant
DX: Z00.00 Encounter for general adult medical examination without abnormal findings (principal); Z23 Encounter for immunization; F11.20 Opioid dependence, uncomplicated; F14.10 Cocaine abuse, uncomplicated; I50.9 Heart failure, unspecified; F33.2 Major depressive disorder, recurrent severe without psychotic features; J44.9 Chronic obstructive pulmonary disease, unspecified; M47.22 Other spondylosis with radiculopathy, cervical region; F17.200 Nicotine dependence, unspecified, uncomplicated; Z79.899 Other long term (current) drug therapy; Z12.5 Encounter for screening for malignant neoplasm of prostate
CPT/HCPCS: 36415; 80053; 82043; 82570; 83880; 84153; 85027; 90471; 90677; 90715; 96127; 99396

== ENCOUNTER 2024-09-15 10:25 | Outpatient (AMB) | payer MEDICARE, MEDICAID, SELFPAY ==
--- NOTE | 2024-09-15 10:32 | MHC.PC.OV ---
Vital Signs 09/15/24 10:33 Height 5 ft 10 in Weight 349 lb 6 oz BMI 50.1 BP 132/68 Blood Pressure Location Lt brachial Position Sitting Pulse 66 Pulse Source Pulse Oximeter Temp 97.3 F Temp Source Temporal Artery Scan Pulse Oximetry (%) 98 Oxygen Delivery Method Room Air Intake Visit Reasons: f/u COPD Intake Note: Patient is here to follow up on COPD. Ict Customer Support Officer Required: No Tracer Bullet Section Supervisor: Not Required per policy Accompanied by: Self / Same As Patient Allergies oxycodone Adverse Reaction (Unknown, Verified 09/15/24 10:42) GI upset Medication List - Last Reconciled 09/15/24 by Manuel Foy PA-C albuterol sulfate 90 mcg/actuation (Ventolin HFA) 2 puffs inhalation RQ4H PRN 30 days baclofen 10 mg PO BID 30 days clonidine HCl 0.1 mg PO TID 90 days duloxetine 30 mg PO DAILY furosemide 20 mg PO Q OTHER DAY 30 days hydroxyzine pamoate 50 mg PO TID PRN 90 days loxapine succinate 100 mg PO BEDTIME mirtazapine 45 mg PO BEDTIME 90 days omeprazole 20 mg PO DAILY@0630 90 days oxcarbazepine 150 mg PO BID 90 days pregabalin (Lyrica) 75 mg PO TID 30 days trazodone 200 mg PO BEDTIME umeclidinium-vilanterol 62.5-25 mcg/actuation (Anoro Ellipta) 1 ea inhalation DAILY 30 days Tobacco use date assessed: 09/15/24 Dental Screening Dental Screen Date: 07/21/24 HPI f/u COPD HPI Details Patient is a 58-year-old male here today for a follow-up visit. Patient has a past medical history significant for ANA, Congestive heart failure, is COPD, history opiate dependence, major depression smoker. --concern-->> continues to report lower extremity pain, particularly right knee pain. Has noted swelling in his leg and some erythema. He reports not being too physically active at his sober home. He also reports having itchy scalp and try skin manifestations over his palms that has been usually during the summer. .. COPD: Today's SpO2 sats mildly low at 90%. He is still seems to have some wheeze and rhonchi on physical exam today. He was started on Anoro during a previous hospitalization. Does have albuterol inhaler available to him. Unfortunately continues to smoke cigarettes. Due to patient's recurrent admissions for respiratory distress and continues smoking you would likely benefit from pulmonology evaluation and treatment as well. Will place referral to pulmonology .. Cocaine use disorder, alcohol use disorder: He has been sober now for 2 months and living in a shelter house. He was recently homeless and actively using cocaine and alcohol over the last 4 years. .. PTSD/ MDD : Again now patient living in a shelter home and has been 4 month sober. He is now set up with a psychiatrist to which he has made some med adjustments. He reports he still has depressive thoughts. He is on multiple meds medication including clonidine, Cymbalta, mirtazapine, oxcarbazepine and trazodone. .. Heart failure: Was recently admitted to the hospital few times and noted to have signs and symptoms of Congestive heart failure in the setting alcohol and cocaine use. He is now on furosemide which has helped him reduce his lower extremity edema. PLAN: Will abstain from alcohol and cocaine and continue to use furosemide on an as needed basis. [facility] Medical History (Updated 09/15/24 @ 11:04 by Manuel Foy PA-C) COPD (chronic obstructive pulmonary disease) Cocaine use disorder MDD (major depressive disorder) Homeless ANA (obstructive sleep apnea) Varicose veins of right lower extremity Peripheral vascular disease GERD (gastroesophageal reflux disease) History of pernicious anemia Hx of acute respiratory failure Edema Back pain Arthritis History of DVT of lower extremity Depression ANA treated with BiPAP Right-sided heart failure Surgical History History of incisional hernia repair Hx of esophagogastroduodenoscopy Hx of colonoscopy History of total right knee replacement S/P right knee arthroscopy Hx of tracheostomy Hx of total hip arthroplasty History of colostomy reversal History of colon resection H/O gastric bypass Family History Father Displacement of central venous catheter (CVC) Mother Unknown family medical history Social History Household Members: None Housing: Homeless ([facility]) Do you presently have visiting nurse or other home services: No Alcohol intake: former Year quit: 2024 Patient Tobacco Use Status: Current everyday Tobacco user Tobacco use type: Cigarette Cigarette Packs Per Day: 0.5 Cigarettes Per Day: 10.0 Years Smoked: 40 e-Cigarette/Vaping Use: Former Use Second Hand Smoke Exposure: Yes Substance Use Type: Crack/Cocaine service: No Sexual orientation: Straight/Heterosexual Cognitive needs: No Hearing needs: No Vision needs: Yes (Reading glasses) Questionnaire Thrive Questionnaire Date Thrive assessed: 07/21/24 I am a: Patient What is your living situation today?: I have a steady place to live Within the past 12 months, did the food you bought not last and you didn't have the money to get more?: Sometimes True Within the past 12 months, did you worry whether your food would run out before you got money to buy more?: Often true Do you have trouble paying for medicines?: No Do you have trouble getting transportation to medical appointments?: Yes Do you have trouble paying your heating and electricity bill?: No Do you have trouble taking care of your child, family member or friend?: No Do you have trouble with day-to-day activities such as bathing, preparing meals, shopping, managing finances, etc.?: No Are you currently unemployed and looking for a job?: No Are you interested in more education?: No Currently or been in a relationship where the following occur: No concerns reported THRIVE Score: 3 SIL-7 AMB Questionnaire SIL-7 Date SIL - 7 assessed: 07/21/24 Source: Developed by Drs. Jose Acevedo, Ally Mejia, Marlon Tinoco and colleagues, with an educational erasmo from [employer]. Review of Systems Const Denies headache(s) Eyes Denies loss of vision ENT Denies vertigo, Denies dizziness, Denies headache(s) and Denies sore throat Card Denies chest pain, Denies leg edema and Denies lightheadedness Resp Denies cough, Denies hemoptysis and Denies wheezing GI Denies abdominal pain, Denies melena, Denies constipation, Denies diarrhea and Denies vomiting Denies dysuria, Denies urinary frequency and Denies urinary urgency Musc Denies arthralgias, Denies joint swelling, Denies numbness and Denies tingling Neuro Denies Abnormal speech present, Denies behavioral changes, Denies vertigo, Denies dizziness, Denies headache(s), Denies loss of vision, Denies memory loss, Denies numbness and Denies tingling Psych Denies anxiety, Denies behavioral changes, Denies depression, Denies memory loss and Denies panic attacks Steven/Lymph Denies easy bleeding and Denies easy bruising Aller/Immun Denies wheezing Physical exam (Primary Care) Vital Signs: Last Vital Signs Temp 97.3 F 09/15/24 10:33 Pulse 66 09/15/24 10:33 BP 132/68 09/15/24 10:33 Pulse Ox 98 09/15/24 10:33 Oxygen Delivery Method Room Air 09/15/24 10:33 BMI result Body Mass Index 50.1 Tobacco/Smoking Status: Tobacco use Status Tobacco use date assessed 09/15/24 09/15/24 10:37 Patient Tobacco Use Status Current everyday Tobacco 09/15/24 10:37 Tobacco use type Cigarette 09/15/24 10:37 e-Cigarette/Vaping Use Former Use 09/15/24 10:37 Thrive Assessment: Date of Thrive Assessment Date Thrive assessed 07/21/24 09/15/24 10:37 Currently or been in a relationship where the following occur: No concerns reported Const General: healthy appearing, no acute distress, alert and awake Nutritional Appearance: well nourished Orientation/consciousness: oriented to person, oriented to place and oriented to time HENMT Ears: TM's normal bilaterally General nose exam: Normal nasal mucous membranes and turbinates present Eyes Conjunctivae: conjunctivae normal Sclerae: sclerae normal Pupils: Equal, round and reactive pupils present Neck Neck: Yes no lymphadenopathy and Yes no JVD Thyroid: Thyroid normal Carotids: no bruits Resp Effort & Inspection: normal respiratory effort and not tachypneic Auscultation: no crackles, no rales, no rhonchi and no wheezes Cardio Rate: regular rate Rhythm: regular rhythm Heart sounds: no murmurs and normal S1 and S2 GI Palpation (GI): Soft to palpation, nontender, no hepatomegaly and no splenomegaly Auscultation: normal bowel sounds Skin General skin exam: no rashes or lesions noted and dry skin Neuro General: oriented to person, oriented to place and oriented to time Cranial nerves: Yes Equal, round and reactive pupils present Speech: No Abnormal speech present Gait exam (Neuro): Normal gait present Motor exam (neuro): no tremor noted Extrem Right upper extremity: full ROM Left upper extremity: full ROM Right lower extremity: full ROM and edema Left lower extremity: full ROM and edema Psych Mental Status: mental status grossly normal Speech and movement: Normal speech and movement present Affect: normal affect Attitude: cooperative Thought process: Normal thought process present Coding Level of Care Code Est Pt Level 4 (79220) Diagnoses Tobacco dependence F17.200 Uncomplicated opioid dependence F11.20 Substance use status: uncomplicated Cocaine use disorder F14.10 Congestive heart failure, NYHA class 3, unspecified congestive heart failure type I50.9 Congestive heart failure type: unspecified Severe episode of recurrent major depressive disorder, without psychotic features F33.2 Active/Remission status: currently active Major depression episode severity: severe Major depression recurrence: recurrent Psychotic features: without psychotic features Chronic bronchitis, unspecified chronic bronchitis type J42 COPD type: chronic bronchitis Chronic bronchitis type: unspecified Lower extremity edema R60.0 Flatulence R14.3 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 He is not interested in nicotine replacement at this time. (2) Opiate dependence: Code(s): F11.20 - Opioid dependence, uncomplicated Category: Medical Qualifiers: Substance use status: uncomplicated Qualified Code(s): F11.20 - Opioid dependence, uncomplicated Plan: He reports he has been abstaining from opiates for quite some time. His drug of choice was cocaine and alcohol. Not had any Suboxone and methadone at this time. He is currently living in a shelter house. (3) Cocaine use disorder: Code(s): F14.10 - Cocaine abuse, uncomplicated Category: Medical Plan: He has been sober from cocaine over the last 4 months. Continues to live in sober housing. (4) CHF (congestive heart failure), NYHA class III: Code(s): I50.9 - Heart failure, unspecified Category: Medical Qualifiers: Congestive heart failure type: unspecified Qualified Code(s): I50.9 - Heart failure, unspecified Plan: As per HPI patient does have heart failure in the setting of active cocaine and alcohol use. Does have bilateral lower extremity edema and weight gain as of late. Will increase his furosemide to 40 mg daily Goal at this point is to continue to abstain from illicit drug use. (5) MDD (major depressive disorder): Code(s): F32.9 - Major depressive disorder, single episode, unspecified Category: Medical Qualifiers: Active/Remission status: currently active Major depression episode severity: severe Major depression recurrence: recurrent Psychotic features: without psychotic features Qualified Code(s): F33.2 - Major depressive disorder, recurrent severe without psychotic features Plan: Patient's PHQ-9 score positive for depression which has been existing condition for him. Has establish care with a psychiatrist and made some small med adjustments. He is still has depressive thoughts. He is on multiple mental health medications as per HPI. He will continue following up with his mental health therapist and psychiatrist. (6) COPD (chronic obstructive pulmonary disease): Code(s): J44.9 - Chronic obstructive pulmonary disease, unspecified Category: Medical Qualifiers: COPD type: chronic bronchitis Chronic bronchitis type: unspecified Qualified Code(s): J42 - Unspecified chronic bronchitis Plan: As per HPI patient has fairly moderate to severe COPD. He will continue on an oral maintenance inhaler. . Has upcoming appointment with pulmonology Unfortunately continues to smoke and does understand he needs to quit smoking. He declines my offers to start nicotine replacement at this time. (7) Lower extremity edema: Code(s): R60.0 - Localized edema Category: Medical Plan: Has bilateral lower extremity edema, has noticed some erythema over his right lower leg. Will increase his furosemide to daily dosing of 40 mg (8) Flatulence: Code(s): R14.3 - Flatulence Category: Medical Plan: Patient reports frequent flatulence. Has had a long history of GI surgeries. Will supply patient with simethicone to use after meals. (9) Sebopsoriasis: Code(s): L40.8 - Other psoriasis Category: Medical Plan: Will supply. With ketoconazole shampoo to use couple of times a week to help reduce scalp itch. (10) Cellulitis of leg: Code(s): L03.119 - Cellulitis of unspecified part of limb Category: Medical Qualifiers: Laterality: left Qualified Code(s): L03.116 - Cellulitis of left lower limb Plan: As above patient has developed some redness over his left lower extremity. Will supply patient with an antibiotic to help reduce infection. Orders: Orders PT Evaluation and Treatment Today M47.816 - Spondylosis without myelopathy or radiculopathy, lumbar region, M51.9 - Unspecified thoracic, thoracolumbar and lumbosacral intervertebral disc disorder Comprehensive [place]. Panel Fast Today I50.9 - Heart failure, unspecified Complete Blood Count no Diff Today I50.9 - Heart failure, unspecified Medications: New furosemide 40 mg PO DAILY 30 tabs 3RF 30 days R14.3 - Flatulence, R60.0 - Localized edema ketoconazole 2% 1 appl topical 3XW 120 mL 0RF 4 weeks L40.8 - Other psoriasis clotrimazole-betamethasone 1-0.05 % 1 appl topical BID 45 grams 0RF 30 days L40.8 - Other psoriasis simethicone (Gas Relief (simethicone)) after meals 180 mg PO BID 60 caps 3RF 30 days R14.3 - Flatulence amoxicillin-pot clavulanate 875-125 mg 1 tab PO BID 20 tabs 0RF 10 days L03.116 - Cellulitis of left lower limb Discontinued furosemide Discontinued Reason: Doctor's Order 20 mg PO Q OTHER DAY 30 days 15 tabs 1RF I50.9 - Heart failure, unspecified
[2024-09-15 10:33] VITALS: BP 132/68; PULSE 66; TEMP 36.3; O2SAT 98; BMI 50.1
--- OUTSIDE RECORDS SUMMARY | 2024-09-15 12:00 | XMS_ITS ---
Author Organization [facility] Address [address] [place] [phone] Care Team Providers Care Fire Extinguisher Sprinkler Inspector Name Role Phone [facility] Primary Care Provider Monique vailable Josiane Mohr Unavailable [phone] Edda Granado Unavailable [phone] Encounters Encounter Location Date Provider Diagnosis [facility] [address] [place] [phone] 09/14/2024 Edda Granado Plan Of Treatment Next Appt Details Provider Name:Edda Barragan, 09/24/2024 10:00:00 AM, [facility], [address] [place] [address], [phone], Progress Notes * OLIVOChuy FernandezDOB:1965 (58 yo M)Acc No.[id number]:09/14/2024 Case Management Patient:?GEOVANIChuy Provider:?Edda Granado :1965???Age:58 Y???Sex:Male Paul e:09/14/2024 Address:[address] [place] [phone] Pcp:[facility] Subjective: * Chief Complaints: * ??? * HPI: ???Social Service:?Referral Source?returning client.?Interpretation for medical provider?housing.? Client came in requesting assistance with housing search.Client is currently in transitional housing they report being chronically homeless.Client was given list of documents to apply for low income housing. * Medical History:? Objective: * Vitals:? Assessment: Plan: * Treatment: * Images: Billing Information: * Visit Code:? * Procedure Codes:? Care Plan Details* * Sign off status: Completed true * Provider:?Edda Granado Date:? Generated for Keli delong/Mary/Florian on:?09/15/2024 12:00 PM EDT History and Physical Notes * HPI (History of Present Illness) Category Sub-Category Detail Notes Category Not es Social Service Referral Source returning client Clien t came in requesting assistance with housing search.Client is currently in transitional housing they report being chronically homeless.Client was given list of documents to apply for low income housing. Interpretation for medical provider hous ing
== END 2024-09-15 11:10 | disposition home or self-care (01) ==
LOC: HO.HMCH 10:25
PROVIDERS: PCP Physician Assistant; Visit Provider Physician Assistant
DX: I50.9 Heart failure, unspecified (principal); F11.20 Opioid dependence, uncomplicated; F14.10 Cocaine abuse, uncomplicated; F33.2 Major depressive disorder, recurrent severe without psychotic features; J42 Unspecified chronic bronchitis; F17.200 Nicotine dependence, unspecified, uncomplicated; R60.0 Localized edema; R14.3 Flatulence; L40.8 Other psoriasis; L03.116 Cellulitis of left lower limb

== ENCOUNTER → 2024-09-15 10:25 | Outpatient (BNVA) | payer MEDICARE, MEDICAID, SELFPAY | PROVIDERS: PCP Physician Assistant; Visit Provider Physician Assistant | DX: G47.33 Obstructive sleep apnea (adult) (pediatric) (principal); J42 Unspecified chronic bronchitis; I50.9 Heart failure, unspecified; F43.10 Post-traumatic stress disorder, unspecified; F17.210 Nicotine dependence, cigarettes, uncomplicated; F11.20 Opioid dependence, uncomplicated; F14.10 Cocaine abuse, uncomplicated; F33.2 Major depressive disorder, recurrent severe without psychotic features; R60.0 Localized edema; R14.3 Flatulence; L40.8 Other psoriasis; L03.116 Cellulitis of left lower limb | CPT/HCPCS: 99212 ==

== ENCOUNTER 2024-09-15 12:46 | Outpatient (RCR) | payer MEDICARE, MEDICAID, SELFPAY ==
[2024-08-17 11:04] VITALS: BP 123/74; PULSE 64; O2SAT 90
--- NOTE | 2024-08-17 12:49 | MHC.PT.EP ---
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 HE RATES HIS CERV PAIN A 7/10 W INTERMITTENT SXS INTO DUSTIN UEs/ HANDS-> INTO 1-3 FINGERS . HE HAS A H/O DUSTIN LARON, Rt TKA, COPD, AND Rt SIDED CHF. OBJECTIVE FINDINGS: DECR POSTURAL AWARENESS W FLEXED TRUNK, LIMITED CERV/ SH/ TRUNK AROM, DECR POST RC/ SCAP/ DEEP CERV MM STRENGTH DEFICITS, AND (+) ST IRRIT AND TENSION IN CERV/UT TISSUES ESPEC. FUNCTIONALLY, HE IS LIMITED W SLEEPING AND MORE PHYSICALLY DEMANDING ADLs- OVERALL DECR ACTIVITY DESTINY. WE DISCUSSED THE PT POC AND HE IS IN AGREEMENT TO PROCEED. Frequency and Duration: The patient will be seen 2 x WK x 4 WKS Short Term Goals: DECR CERV PAIN TO 3-4/10 AND UEs SXS DECR BY 75% IMPROVE POSTURAL AWARENESS TO DECR CERV TISSUE TENSION AND IMPROVE NEUTRAL POSTURE (VERY TIGHT HIP FLEXORS) INITIATE HEP-> SHOULDER/ SCAP ROM, CERV FLEXIB Nursing Home Goals: INDEP HEP AND SELF SX MGMT IMPROVED NPDI, AT EVAL 27/50 Pt GRAD RETURN TO REG ADLs , IMPROVED SLEEP Treatment Plan: Modalities to reduce pain, spasms and effusion. Manual therapy to restore motion and function. Therapeutic exercise to improve strength and flexibility. Neuromuscular re-education for posture and balance. Therapeutic activities to return to functional activities of daily living. Electronically signed by: ISIDRO LLOYD,PT Please sign and return to therapist. Thank you for your referral.
--- NOTE | 2024-10-28 09:13 | MHC.PT.DC ---
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 HE IS DISCHARGED THIS DATE, HE DID NOT MEET ALL OF HIS PT GOALS, BUT HE DID BENEFIT FROM THE PT SESSIONS HE WAS ABLE TO ATTEND. Electronically signed by: ISIDRO LLOYD,PT Please sign and return to therapist. Thank you for your referral.
== END 2024-10-28 09:13 | disposition home or self-care (01) ==
LOC: HO.PT 12:46
PROVIDERS: PCP Physician Assistant; Visit Provider Physician Assistant
DX: M47.22 Other spondylosis with radiculopathy, cervical region (principal)
CPT/HCPCS: 97012; 97110; 97140; 97162

== ENCOUNTER 2024-09-30 10:45 | Outpatient (AMB) | payer MEDICARE, MEDICAID, SELFPAY ==
[2024-09-30 10:52] VITALS: BP 138/68; PULSE 67; O2SAT 93; BMI 50.3
--- NOTE | 2024-09-30 10:52 | MHC.OFFVIS ---
Vital Signs 09/30/24 10:52 Height 5 ft 10 in Weight 350 lb 8.56 oz BMI 50.3 BP 138/68 Blood Pressure Location Lt brachial Position Sitting Pulse 67 Pulse Source Pulse Oximeter Pulse Oximetry (%) 93 Oxygen Delivery Method Room Air Intake Visit Reasons: COPD Intake Note: pt is here as a new patient, has a history of archie, but machine was lost in a move, today he states he has coughing, wheezing and shortnees of breath with walking, stairs, pt did state that he coughed up black phelgm for 2 days in a row. cpap could possibly be by [employer]. Wiping Rag Washer Required: No Allergies oxycodone Adverse Reaction (Unknown, Verified 09/30/24 11:36) GI upset Medication List - Last Reconciled 09/30/24 by Harini Sylvester MD albuterol sulfate 90 mcg/actuation (Ventolin HFA) 2 puffs inhalation RQ4H PRN 30 days baclofen 10 mg PO BID 30 days clonidine HCl 0.1 mg PO TID 90 days clotrimazole-betamethasone 1-0.05 % 1 appl topical BID 30 days duloxetine 30 mg PO DAILY 90 days furosemide 40 mg PO DAILY 30 days hydroxyzine pamoate 50 mg PO TID PRN 90 days ketoconazole 2% 1 appl topical 3XW 4 weeks loxapine succinate 100 mg PO BEDTIME mirtazapine 45 mg PO BEDTIME 90 days omeprazole 20 mg PO DAILY@0630 90 days oxcarbazepine 150 mg PO BID 90 days [POWER SCOOTER As directed] pregabalin (Lyrica) 75 mg PO TID 30 days simethicone (Gas Relief (simethicone)) 180 mg PO BID 30 days trazodone 200 mg PO BEDTIME umeclidinium-vilanterol 62.5-25 mcg/actuation (Anoro Ellipta) 1 ea inhalation DAILY 30 days Do you need a note to return to daycare/school/sports/work: No HPI HPI COPD: Details: This patient is 58 years old being seen for the 1st time, his morbid obesity, history of obstructive sleep apnea, history of smoking and moderately advanced obstructive airway disorder. The patient states that he has seen me sometime in the past but more than 5 years ago. He is previously known case of obstructive sleep apnea and did use CPAP, up until last year when he was evicted from his apartment and while moving he lost his machine. Since last year he has been homeless currently living in a [place] [facility] . He smokes 7-8 cigarettes a day, previously used to smoke about 1 pack a day. He has past history of abusing cocaine but not anymore since last year. He used to be on Anoro Ellipta 1 inhalation daily but he does not have this inhaler at present. He does use albuterol 2 puffs Q 6 hours but only p.r.n.. Denies any recent respiratory infection. Main problem is that he is morbidly obese and is not in any position to lose weight. [facility] Medical History (Updated 09/30/24 @ 11:55 by Harini Sylvester MD) Morbid (severe) obesity due to excess calories COPD (chronic obstructive pulmonary disease) Cocaine use disorder MDD (major depressive disorder) Homeless ARCHIE (obstructive sleep apnea) Varicose veins of right lower extremity Peripheral vascular disease GERD (gastroesophageal reflux disease) History of pernicious anemia Hx of acute respiratory failure Edema Back pain Arthritis History of DVT of lower extremity Depression ARCHIE treated with BiPAP Right-sided heart failure Surgical History History of incisional hernia repair Hx of esophagogastroduodenoscopy Hx of colonoscopy History of total right knee replacement S/P right knee arthroscopy Hx of tracheostomy Hx of total hip arthroplasty History of colostomy reversal History of colon resection H/O gastric bypass Family History Father Displacement of central venous catheter (CVC) Mother Unknown family medical history Social History Household Members: None Housing: Homeless ([facility]) Do you presently have visiting nurse or other home services: No Alcohol intake: former Year quit: 2024 Patient Tobacco Use Status: Current everyday Tobacco user Tobacco use type: Cigarette Cigarette Packs Per Day: 0.5 Cigarettes Per Day: 10.0 Years Smoked: 40 e-Cigarette/Vaping Use: Former Use Second Hand Smoke Exposure: Yes Substance Use Type: Crack/Cocaine service: No Sexual orientation: Straight/Heterosexual Cognitive needs: No Hearing needs: No Vision needs: Yes (Reading glasses) Review of Systems Const All systems reviewed & are unremarkable except as noted in HPI and below Eyes Reports no additional complaints ENT Reports no additional complaints Card Denies chest pain, Denies irregular heart rhythm and Denies leg edema Resp Reports as per HPI GI Reports heartburn Details: Being treated for GERD symptoms Reports no additional complaints Musc Reports back pain and Reports arthralgias Skin/Breast Reports system reviewed and no additional complaints, except as documented Neuro Reports no additional complaints Endo Reports no additional complaints Steven/Lymph Reports no additional complaints Aller/Immun Reports no additional complaints Physical Exam Vital Signs: Last Vital Signs Pulse 67 09/30/24 10:52 BP 138/68 09/30/24 10:52 Pulse Ox 93 09/30/24 10:52 Oxygen Delivery Method Room Air 09/30/24 10:52 BMI result Body Mass Index 50.3 He is morbidly obese, neck size 18 in,, Mallampati scale 4 Const General: comfortable, no acute distress, alert and awake Orientation/consciousness: patient oriented x3 HEENT Head: Yes normal to inspection General nose exam: No nasal polyps present and No nasal discharge present Face and sinus: Yes sinuses nontender Mouth: oropharynx abnormals (Narrow and crowded, Mallampati scale 4) Throat: Yes posterior oropharynx normal Eyes General: appearance normal, both eyes and all related structures Neck Neck: Yes normal visual inspection, Yes no lymphadenopathy, Yes trachea midline, Yes no JVD and Yes other (Neck circumference 18 in) Thyroid: Thyroid normal Chest Chest palpation & inspection: normal inspection of the chest, normal palpation of entire chest wall and no tenderness Resp Other: Breath sounds are somewhat distant with prolonged expiratory phase. There are scattered inspiratory wheezes. No crepitations. Cardio Palpation: normal PMI Rate: regular rate Rhythm: regular rhythm Heart sounds: no gallops and no murmurs GI Other: Abdomen is obese and protuberant Palpation (GI): Soft to palpation, Tenderness to palpation present (GI), No hepatosplenomegaly present, no masses and no aortic enlargement Auscultation: normal bowel sounds Back/Spine/Pelvis Thoracic/Lumbar Spine: thoracic and lumbar spine normal to inspection and thoraco-lumbar ROM limited Skin General skin exam: no rashes or lesions noted Neuro General: patient oriented x3 and no focal motor deficits Cranial nerves: Yes CN's II-XII intact bilaterally Extrem General: Yes normal to inspection, Yes no clubbing, cyanosis or edema, Yes no calf tenderness and Yes edema (Trace of pitting edema around the ankles) Psych Appearance: grossly normal and well kempt Speech and movement: Normal speech and movement present Results Reviewed Results Reviewed: CT scan of the chest in March 2024 at [facility]. There was a nonspecific density in the right base, most likely segmental atelectasis. Sleep study on 10/13/2019. He had rather severe obstructive sleep apnea with total sleep time AHI 31.4, nocturnal hypoxemia throughout the night and snoring for 20% of the sleep time Assessment & Plan Assessment & Plan (1) Morbid (severe) obesity due to excess calories: Comment: Patient is a case of morbid obesity, current BMI 50.3. Since he is in [place] [facility] home he has gained weight. Code(s): E66.01 - Morbid (severe) obesity due to excess calories Category: Medical Plan: Talked to him about cutting down on the portions of his meals. Try to walk outdoors at least for 2 miles every day. (2) ARCHIE (obstructive sleep apnea): Comment: He is a known case of obstructive sleep apnea and was using the BiPAP from his last sleep study in 2019. Lost his CPAP/BiPAP machine when he was evicted from his apartment last year. He does have interrupted sleep at night and excessive daytime somnolence during the daytime Code(s): G47.33 - Obstructive sleep apnea (adult) (pediatric) Category: Medical Plan: Patient needs to be started on BiPAP/CPAP. And would need a repeat study once again to qualify. I a.m. requesting a sleep study to be done in the sleep lab so that he can be titrated for the use of CPAP. (3) COPD (chronic obstructive pulmonary disease): Comment: Patient is a lifelong smoker. Has cut. Down to 7 8 cigarettes a day He does have symptom of chronic obstructive pulmonary disease. Has used Incruse Ellipta in the past. Currently he is out of any long-acting bronchodilator. Uses only albuterol p.r.n.. Code(s): J44.9 - Chronic obstructive pulmonary disease, unspecified Category: Medical Qualifiers: COPD type: chronic bronchitis Chronic bronchitis type: unspecified Qualified Code(s): J42 - Unspecified chronic bronchitis Plan: Your ordering pulmonary function test be done for complete evaluation. And the medical regimen will be. Adjusted after the PFT results (4) Tobacco dependence: Comment: Patient has longstanding history of smoking now has cut down to 7 cigarettes a day Code(s): F17.200 - Nicotine dependence, unspecified, uncomplicated Category: Medical Plan: Advised that he needs to completely quit smoking. Keep on cutting down the number of cigarettes per day He had a CT scan of the chest in March 2024. Will register him in annual lung screening program. Orders: Orders RT PSG in-lab sleep study Today E66.01 - Morbid (severe) obesity due to excess calories, G47.33 - Obstructive sleep apnea (adult) (pediatric) PFT pulmonary function test Today F17.200 - Nicotine dependence, unspecified, uncomplicated, J44.9 - Chronic obstructive pulmonary disease, unspecified Coding Level of Care Code New Pt Level 4 (15978) Diagnoses Morbid (severe) obesity due to excess calories E66.01 ARCHIE (obstructive sleep apnea) G47.33 Chronic bronchitis, unspecified chronic bronchitis type J42 COPD type: chronic bronchitis Chronic bronchitis type: unspecified Tobacco dependence F17.200
--- OUTSIDE RECORDS SUMMARY | 2024-09-30 12:22 | XMS_ITS | Encounter Summary ---
Author Organization [facility] Address [address] [place] [address] Care Team Providers Care Associate Faculty Name Role Phone Paulo Schwarz Primary Care Provider [phone] Encounter Details Date Type Department Care Team (Late st Contact Info) Description 04/22/2017 Orders Only [facility] Pre-Admission Testing [address] [place] [address] Lexie Rust NP Social History Tobacco Use [...] of this encounter Procedures * Due to [place] state law, this organization might not be [...] in this encounter Results * Due to [place] state law, this organization might not be sharing negative HIV tests. * MRSA CULTURE SCREEN, NASAL ONLY (04/22/2017 12:22 PM EST) Methicillin Resistant Staphylococcus Aureus Screen SEE NOTE [facility] Comment: MRSA CULTURE SCREEN MICRO NUMBER: [id number] TEST STATUS: FINAL SPECIMEN SOURCE: NOT GIVEN SPECIMEN QUALITY: ADEQUATE RESULT: No methicillin resistant Staphylococcus aureus (MRSA) isolated. 04/22/2017 12:2 2 PM EST 04/22/2017 5:52 PM EST Narrative Resulting Agency Comment [id number] Lexie Rust HALVER MACHINE OPERATOR LABORATORY Final Result Performing Organization Address City/State/[facility] Co de Phone Number [facility] [address] [place] [address] * EKG-TO BE READ AND BILLED BY [...] 6 AM EST 04/22/2017 10:11 PM EST us Lexie Rust NP CARDIOVASCULAR-WITH INBSKT R TG Final Result Performing Organization Address [facility] Co de Phone Number [facility] * CULTURE, URINE, ROUTINE (04/22/2017 9:54 AM EST) Bacteria culture (Urine) SEE NOTE [facility] Comment: CULTURE, URINE, ROUTINE MICRO NUMBER: [id number] TEST STATUS: FINAL SPECIMEN SOURCE: NOT GIVEN SPECIMEN QUALITY: ADEQUATE RESULT: Single organism less than 10,000 CFU/mL isolated. These organisms, commonly found on external and internal genitalia, are considered colonizers. No further testing performed. 04/22/2017 9:54 AM EST 04/22/2017 2:49 PM EST Narrative Resulting Agency Comment [id number] us Lexie Rust NP LABORATORY Final Result Performing Organization Address [facility] de Phone Number [facility] [address] [place] [address] * PROTHROMBIN TIME (PT) (INR), BLOOD (04/22/2017 9:54 AM EST) INR 1.0 [facility] Comment: Reference Range 0.9-1.1 Moderate-intensity Warfarin Therapy 2.0-3.0 Higher-intensity Warfarin Therapy 3.0-4.0 PT 10.3 9.0 - 11.5 sec [facility] Comment: For more information on this test, go to: [email or web address] 04/22/2017 9:54 AM EST 04/22/2017 2:49 PM EST Narrative Resulting Agency Comment [id number] us Lexie Rust NP LAB SAME DAY RESULT Final Re sult Performing Organization Address [facility] Co de Phone Number [facility] [address] [place] [address] * (ABNORMAL) CBC INCLUDES DIFFERENTIAL AND PLATELET [...] 2:49 PM EST Narrative Resulting Agency Comment [id number] Lexie Rust HALVER MACHINE OPERATOR LAB SAME DAY RESULT Final Re sult Performing Organization Address City/State/[facility] Co de Phone Number [facility] [address] [place] [address] * (ABNORMAL) BASIC METABOLIC PANEL WITH (GFR) (04/22/2017 9:54 AM EST) Glucose 79 65 - 99 mg/dL [facility] Comment:Fasting reference in terval Urea Nitrogen Blood (BUN) 6(L) 7 - 25 mg/dL [facility] Creatinine 0.88 0.70 - 1.33 mg/dL [facility] Comment: For patients >49 years of age, the reference limit for Creatinine is approximately 13% higher for people identified as -I[place]ic. GFR 100 > OR = 60 mL/min/1. [...] needs for GFR calculation. Resulting Agency Comment [id number] us Lexie Rust NP LABORATORY Final Result Performing Organization Address City/State/[facility] Co de Phone Number [facility] [address] [place] [address] documented in this encounter Visit Diagnoses Diagnosis Pre-operative examination Preoperative examination, unspecified Primary osteoarthritis of right knee Primary localized osteoarthrosis, lower leg Sleep apnea, unspecified type Increased frequency of urination Urinary frequency documented in this encounter Care Teams Associate Faculty Relationship Specialty Start Date End Date Paulo Schwarz [address] [place] [address] [place] [address] PCP - General 01/07/08 documented as of this encounter
== END 2024-09-30 11:18 | disposition home or self-care (01) ==
LOC: HO.HPS 10:46
PROVIDERS: PCP Physician Assistant; Referring Provider Physician Assistant; Visit Provider Internal Medicine
DX: E66.01 Morbid (severe) obesity due to excess calories (principal); G47.33 Obstructive sleep apnea (adult) (pediatric); J42 Unspecified chronic bronchitis; F17.200 Nicotine dependence, unspecified, uncomplicated
CPT/HCPCS: 99204

== ENCOUNTER → 2024-09-30 10:45 | Outpatient (BNVA) | payer MEDICARE, MEDICAID, SELFPAY | PROVIDERS: PCP Physician Assistant; Referring Provider Physician Assistant; Visit Provider Internal Medicine | DX: E66.01 Morbid (severe) obesity due to excess calories (principal); G47.33 Obstructive sleep apnea (adult) (pediatric); J42 Unspecified chronic bronchitis; F17.200 Nicotine dependence, unspecified, uncomplicated | CPT/HCPCS: 99202 ==

== ENCOUNTER 2024-10-07 14:28 | Outpatient (AMB) | payer MEDICARE, MEDICAID, SELFPAY ==
--- NOTE | 2024-10-07 14:40 | A.OFFPC_ITS ---
Vital Signs 10/07/24 14:41 Height 5 ft 10 in Weight 352 lb BMI 50.5 BP 124/80 Blood Pressure Location Lt brachial Position Sitting Pulse 63 Pulse Source Pulse Oximeter Temp 97.3 F Temp Source Temporal Artery Scan Pulse Oximetry (%) 94 Oxygen Delivery Method Room Air Intake Visit Reasons: BLLE swelling/ ?cellulitis Vegetable Specker Required: No Allergies oxycodone Adverse Reaction (Unknown, Verified 10/07/24 15:23) GI upset Medication List - Last Reconciled 10/07/24 by Manuel Foy PA-C albuterol sulfate 90 mcg/actuation (Ventolin HFA) 2 puffs inhalation RQ4H PRN 30 days baclofen 10 mg PO BID 30 days clonidine HCl 0.1 mg PO TID 90 days clotrimazole-betamethasone 1-0.05 % 1 appl topical BID 30 days duloxetine 30 mg PO DAILY 90 days furosemide 40 mg PO DAILY 30 days hydroxyzine pamoate 50 mg PO TID PRN 90 days ketoconazole 2% 1 appl topical 3XW 4 weeks loxapine succinate 100 mg PO BEDTIME mirtazapine 45 mg PO BEDTIME 90 days omeprazole 20 mg PO DAILY@0630 90 days oxcarbazepine 150 mg PO BID 90 days [POWER SCOOTER As directed] pregabalin (Lyrica) 75 mg PO TID 30 days simethicone (Gas Relief (simethicone)) 180 mg PO BID 30 days trazodone 200 mg PO BEDTIME umeclidinium-vilanterol 62.5-25 mcg/actuation (Anoro Ellipta) 1 ea inhalation DAILY 30 days Tobacco use date assessed: 09/15/24 Dental Screening Dental Screen Date: 07/21/24 HPI BLLE swelling/ ?cellulitis HPI Details Patient is a 58-year-old male here today for a follow up on bilateral lower extremity edema and erythema and pain. He has tried multiple outpatient p.o. antibiotics though has not been getting much better, we have increased his Lasix as well for his lower extremity edema though has not lost any weight. He does report a history of having MRSA and needing IV antibiotics during a hospitalization which cleared up his lower extremity cellulitis. PLAN: Will go to the ER as he has failed outpatient p.o. antibiotics may need IV antibiotics clear up his lower extremity infection. [facility] Medical History Morbid (severe) obesity due to excess calories COPD (chronic obstructive pulmonary disease) Cocaine use disorder MDD (major depressive disorder) Homeless ANA (obstructive sleep apnea) Varicose veins of right lower extremity Peripheral vascular disease GERD (gastroesophageal reflux disease) History of pernicious anemia Hx of acute respiratory failure Edema Back pain Arthritis History of DVT of lower extremity Depression ANA treated with BiPAP Right-sided heart failure Surgical History History of incisional hernia repair Hx of esophagogastroduodenoscopy Hx of colonoscopy History of total right knee replacement S/P right knee arthroscopy Hx of tracheostomy Hx of total hip arthroplasty History of colostomy reversal History of colon resection H/O gastric bypass Family History Father Displacement of central venous catheter (CVC) Mother Unknown family medical history Social History Household Members: None Housing: Homeless ([facility]) Do you presently have visiting nurse or other home services: No Alcohol intake: former Year quit: 2024 Patient Tobacco Use Status: Current everyday Tobacco user Tobacco use type: Cigarette Cigarette Packs Per Day: 0.5 Cigarettes Per Day: 10.0 Years Smoked: 40 Packs Per Year: 20 Packs per year/per ci.00 e-Cigarette/Vaping Use: Former Use Second Hand Smoke Exposure: Yes Substance Use Type: Crack/Cocaine service: No Sexual orientation: Straight/Heterosexual Cognitive needs: No Hearing needs: No Vision needs: Yes (Reading glasses) Questionnaire Thrive Questionnaire Date Thrive assessed: 07/21/24 I am a: Patient What is your living situation today?: I have a steady place to live Within the past 12 months, did the food you bought not last and you didn't have the money to get more?: Sometimes True Within the past 12 months, did you worry whether your food would run out before you got money to buy more?: Often true Do you have trouble paying for medicines?: No Do you have trouble getting transportation to medical appointments?: Yes Do you have trouble paying your heating and electricity bill?: No Do you have trouble taking care of your child, family member or friend?: No Do you have trouble with day-to-day activities such as bathing, preparing meals, shopping, managing finances, etc.?: No Are you currently unemployed and looking for a job?: No Are you interested in more education?: No Currently or been in a relationship where the following occur: No concerns reported THRIVE Score: 3 SIL-7 AMB Questionnaire SIL-7 Date SIL - 7 assessed: 07/21/24 Source: Developed by Drs. Jose Acevedo, Ally Mejia, Marlon Tinoco and colleagues, with an educational erasmo from [employer]. Review of Systems Const Denies headache(s) Eyes Denies loss of vision ENT Denies vertigo, Denies dizziness, Denies headache(s) and Denies sore throat Card Denies chest pain, Denies leg edema and Denies lightheadedness Resp Denies cough, Denies hemoptysis and Denies wheezing GI Denies abdominal pain, Denies melena, Denies constipation, Denies diarrhea and Denies vomiting Denies dysuria, Denies urinary frequency and Denies urinary urgency Musc Denies arthralgias, Denies joint swelling, Denies numbness and Denies tingling Neuro Denies Abnormal speech present, Denies behavioral changes, Denies vertigo, Denies dizziness, Denies headache(s), Denies loss of vision, Denies memory loss, Denies numbness and Denies tingling Psych Denies anxiety, Denies behavioral changes, Denies depression, Denies memory loss and Denies panic attacks Steven/Lymph Denies easy bleeding and Denies easy bruising Aller/Immun Denies wheezing Physical exam (Primary Care) Vital Signs: Last Vital Signs Temp 97.3 F 10/07/24 14:41 Pulse 63 10/07/24 14:41 BP 124/80 10/07/24 14:41 Pulse Ox 94 10/07/24 14:41 Oxygen Delivery Method Room Air 10/07/24 14:41 BMI result Body Mass Index 50.5 Tobacco/Smoking Status: Tobacco use Status Tobacco use date assessed 09/15/24 10/07/24 14:40 Patient Tobacco Use Status Current everyday Tobacco 10/07/24 14:40 Tobacco use type Cigarette 10/07/24 14:40 e-Cigarette/Vaping Use Former Use 10/07/24 14:40 Thrive Assessment: Date of Thrive Assessment Date Thrive assessed 07/21/24 10/07/24 14:40 Currently or been in a relationship where the following occur: No concerns reported Const General: healthy appearing, no acute distress, alert and awake Nutritional Appearance: well nourished Orientation/consciousness: oriented to person, oriented to place and oriented to time HENMT Ears: TM's normal bilaterally General nose exam: Normal nasal mucous membranes and turbinates present Eyes Conjunctivae: conjunctivae normal Sclerae: sclerae normal Pupils: Equal, round and reactive pupils present Neck Neck: Yes no lymphadenopathy and Yes no JVD Thyroid: Thyroid normal Carotids: no bruits Resp Effort & Inspection: normal respiratory effort and not tachypneic Auscultation: no crackles, no rales, no rhonchi and no wheezes Cardio Rate: regular rate Rhythm: regular rhythm Heart sounds: no murmurs and normal S1 and S2 GI Palpation (GI): Soft to palpation, nontender, no hepatomegaly and no splenomegaly Auscultation: normal bowel sounds Skin General skin exam: no rashes or lesions noted and dry skin Neuro General: oriented to person, oriented to place and oriented to time Cranial nerves: Yes Equal, round and reactive pupils present Speech: No Abnormal speech present Gait exam (Neuro): Normal gait present Motor exam (neuro): no tremor noted Extrem Other: BILATERAL LOWER EXTREMITY ERYTHEMA AND EDEMA NOTED, ERYTHEMA WORSE ON RIGHT LOWER EXTREMITY. Right upper extremity: full ROM Left upper extremity: full ROM Right lower extremity: full ROM and edema Left lower extremity: full ROM and edema Psych Mental Status: mental status grossly normal Speech and movement: Normal speech and movement present Affect: normal affect Attitude: cooperative Thought process: Normal thought process present Coding Level of Care Code Est Pt Level 3 (09689) Diagnoses Cellulitis of left lower extremity L03.116 Laterality: left Assessment & Plan Assessment & Plan (1) Cellulitis of leg: Code(s): L03.119 - Cellulitis of unspecified part of limb Category: Medical Qualifiers: Laterality: left Qualified Code(s): L03.116 - Cellulitis of left lower limb Plan: Continues to have red swollen lower extremities. Has failed 2 rounds of antibiotics this for Augmentin and doxycycline. Patient does report a history of needing IV antibiotics due to a MRSA infection. Will send to ER for evaluation and possible IV antibiotics.
[2024-10-07 14:41] VITALS: BP 124/80; PULSE 63; TEMP 36.3; O2SAT 94; BMI 50.5
== END 2024-10-07 15:31 | disposition home or self-care (01) ==
LOC: HO.HMCH 14:28
PROVIDERS: PCP Physician Assistant; Visit Provider Physician Assistant
DX: L03.116 Cellulitis of left lower limb (principal)

== ENCOUNTER → 2024-10-07 14:28 | Outpatient (BNVA) | payer MEDICARE, MEDICAID, SELFPAY | PROVIDERS: PCP Physician Assistant; Visit Provider Physician Assistant | DX: L03.116 Cellulitis of left lower limb (principal) | CPT/HCPCS: 99212 ==

== ENCOUNTER 2024-10-07 16:27 | Emergency (ER) | payer MEDICARE, MEDICAID, SELFPAY ==
[2024-10-07 16:56] VITALS: BP 138/59; PULSE 67; RESP 22; TEMP 37; O2SAT 90; BMI 50.2
--- NOTE | 2024-10-07 16:56 | ED.GENADULT ---
HPI - General Adult General Chief complaint: Skin/Abscess/Foreign Body Stated complaint: Cellulitis Time Seen by Provider: 10/07/24 18:33 Source: patient Mode of arrival: ambulatory Limitations: no limitations History of Present Illness ED Provider: Peggy Sullivan NP HPI narrative: Patient is a 58-year-old male who presents emergency department for evaluation. With the past few weeks he has been experiencing cellulitis of the bilateral lower extremities. He received a prescription for Augmentin from his primary care provider, on 09/15/2024 a 10 day course which he completed. Reports that he noticed a slight improvement in symptoms for a couple of days but then symptoms continued to worsen. Was advised to come to emergency department for evaluation Related Data Home Medications ?Medication ?Instructions ?Recorded ?Confirmed loxapine succinate 50 mg capsule 100 mg PO BEDTIME 05/12/24 10/07/24 trazodone 100 mg tablet 200 mg PO BEDTIME 09/15/24 10/07/24 Previous Rx's ?Medication ?Instructions ?Recorded albuterol sulfate 90 mcg/actuation 2 puff inhalation RQ4H PRN 07/21/24 aerosol inhaler (Ventolin HFA) Shortness Of Breath/Wheezing 30 days #8.5 grams clonidine HCl 0.1 mg tablet 0.1 mg PO TID 90 days #270 tabs 07/21/24 hydroxyzine pamoate 50 mg capsule 50 mg PO TID PRN anxiety 90 days 07/21/24 #270 caps mirtazapine 45 mg tablet 45 mg PO BEDTIME 90 days #90 tabs 07/21/24 oxcarbazepine 150 mg tablet 150 mg PO BID 90 days #180 tabs 07/21/24 umeclidinium 62.5 mcg-vilanterol 1 ea inhalation DAILY 30 days #60 07/21/24 25 mcg/actuation powdr for ea inhalation (Anoro Ellipta) omeprazole 20 mg capsule,delayed 20 mg PO DAILY@0630 90 days #90 07/23/24 release caps baclofen 10 mg tablet 10 mg PO BID 30 days #60 tabs 07/27/24 pregabalin 75 mg capsule (Lyrica) 75 mg PO TID 30 days #90 caps 07/27/24 clotrimazole-betamethasone 1 1 appl topical BID 30 days #45 09/15/24 %-0.05 % topical cream grams furosemide 40 mg tablet 40 mg PO DAILY 30 days #30 tabs 09/15/24 ketoconazole 2 % shampoo 1 appl topical 3XW 4 weeks #120 mL 09/15/24 simethicone 180 mg capsule (Gas 180 mg PO BID 30 days #60 caps 09/15/24 Relief (simethicone)) POWER SCOOTER #1 ea 09/16/24 duloxetine 30 mg capsule,delayed 30 mg PO DAILY 90 days #90 caps 09/17/24 release cephalexin 500 mg capsule 500 mg PO QID #28 caps 10/07/24 doxycycline hyclate 100 mg capsule 100 mg PO BID #14 caps 10/07/24 Allergies Allergy/AdvReac Type Severity Reaction Status Date / Time oxycodone AdvReac Unknown GI upset Verified 10/07/24 17:00 Review of Systems Review of Systems: Yes all other systems are reviewed and are negative PMFSH Past Medical History Attestation statement: The following information was validated with the patient. Source: old records reviewed Medical History Morbid (severe) obesity due to excess calories COPD (chronic obstructive pulmonary disease) Cocaine use disorder MDD (major depressive disorder) Homeless ANA (obstructive sleep apnea) Varicose veins of right lower extremity Peripheral vascular disease GERD (gastroesophageal reflux disease) History of pernicious anemia Hx of acute respiratory failure Edema Back pain Arthritis History of DVT of lower extremity Depression ANA treated with BiPAP Right-sided heart failure Surgical History History of incisional hernia repair Hx of esophagogastroduodenoscopy Hx of colonoscopy History of total right knee replacement S/P right knee arthroscopy Hx of tracheostomy Hx of total hip arthroplasty History of colostomy reversal History of colon resection H/O gastric bypass Family History Family History Father Displacement of central venous catheter (CVC) Mother Unknown family medical history Social History Social History Household Members: None Housing: Homeless ([facility]) Do you presently have visiting nurse or other home services: No Alcohol intake: former Year quit: 2024 Patient Tobacco Use Status: Current everyday Tobacco user Tobacco use type: Cigarette Cigarette Packs Per Day: 0.5 Cigarettes Per Day: 10.0 Years Smoked: 40 e-Cigarette/Vaping Use: Former Use Second Hand Smoke Exposure: Yes Substance Use Type: Crack/Cocaine Advance Directives: No Advance Directives Information Provided: Yes service: No Sexual orientation: Straight/Heterosexual Cognitive needs: No Hearing needs: No Vision needs: Yes (Reading glasses) Physical Exam ED Vital Signs: Vital Signs - 24 hr 10/07/24 16:56 10/07/24 18:13 Temperature 98.6 F 98.5 F Pulse Rate 67 78 Respiratory Rate 22 H 16 Blood Pressure 138/59 L 135/108 H Pulse Oximetry 90 L 94 Oxygen Delivery Method Room Air Room Air BMI result Body Mass Index 50.2 Appearance: Alert.?Oriented to person, place and time. No acute distress.?Normal affect. CVS: Heart sounds normal. Normal heart rate and rhythm.? Pulses normal.?? Respiratory: No respiratory distress.? Lung sounds clear to auscultation bilaterally??? Skin: Skin warm and dry.? Normal skin color.? Extremities: No lower extremity edema.? No calf ttp? Neuro: Moves all extremities spontaneously. Sensation intact bilaterally. CN II-XII intact. No focal neuro deficits. Ambulates with normal steady gait. Course Course Course Narrative: This is a rapid medical exam performed by Nico Lazar NP: Additional HPI, ROS, PE not included below will be deferred to primary provider. Patient is a 58-year-old male with history of COPD, tobacco dependence, cocaine use disorder, GERD, CHF NYHA class III, opiate dependence presenting from Jimy Foy's office for failed outpatient abx for right leg cellulitis. Patient has been taking his abx as prescribed with worsening symptoms. Plan: labs Medical Decision Making Medical Decision Making MDM Narrative: Patient is a 58-year-old male with past medical history of ANA, CHF, COPD, polysubstance use, PVD, GERD, depression who presents emergency department for evaluation bilateral lower extremity cellulitis. As per HPI he received a course of Augmentin on 09/15/2024 a 10 day course without much improvement. He does have a history of MRSA infection in the past. Confirmed with the patient as well as pharmacy records, he has not had any antibiotic for MRSA coverage for this bout of cellulitis. He states that the last time he took doxycycline he believes was in June of 2024. He is afebrile, nontoxic in appearance, no tachycardia. Serum labs have been obtained, he has a leukocytosis, has a microcytic anemia that does not meet transfusion criteria, thrombocytopenia. No electrolyte derangement. No GARRETT. No lactic acidosis. CRP is within normal range. I reviewed this case with my attending Dr. Neff, you most appropriate at this time that he trial a course of antibiotics outpatient with MRSA coverage, with strict return precautions. All questions have been answered. Stable for discharge. Ambulatory with a steady gait. Differential Diagnosis Differential Diagnoses: The differential diagnosis associated with the presentation includes Cellulitis, no evidence of abscess, not consistent with necrotizing fasciitis. Consistent with myositis. Laterally without calf pain or tenderness, low suspicion for DVT. 2+ DP/PT pulse bilaterally. Examination not consistent with acute arterial occlusion. Admission/Observation Consideration of admission/observation: Escalation of care including admission/observation considered Lab Data MDM Lab Attestation statement: I reviewed the patient's lab results. (See narrative above) 10/07/24 17:13 10/07/24 17:13 Labs: Lab Results 10/07/24 Range/Units 17:13 WBC 6.8 (4.8-10.8) X10*3/uL RBC 4.53 L (4.60-5.80) X10*6/uL Hgb 9.3 L (14.0-18.0) g/dl Hct 30.5 L (42.0-52.0) % MCV 67.3 L (80.0-98.0) fL MCH 20.5 L (27.0-33.0) pg MCHC 30.5 L (31.0-36.0) g/dl RDW 18.1 H (11.0-16.0) % Plt Count 263 (160-400) X10*3/uL MPV 9.6 (9.4-12.4) fL Immature Gran % (Auto) 0.3 (0.0-0.4) % Neut % (Auto) 59.2 (45-73) % Lymph % (Auto) 25.3 (20-40) % [place] % (Auto) 10.9 (2-11) % Eos % (Auto) 3.6 (0-4) % Baso % (Auto) 0.7 (0-2) % Lymph # (Auto) 1.7 (1.2-4.9) X10*3/uL [place] # (Auto) 0.7 (0.1-1.2) X10*3/uL Eos # (Auto) 0.2 (0.0-0.4) X10*3/uL Baso # (Auto) 0.1 (0.0-0.2) X10*3/uL Abs Immat Gran (auto) 0.02 (0.00-0.03) X10*3/uL Absolute Neuts (auto) 4.0 (2.0-8.3) x10*3/uL Absolute Nucleated RBC 0.000 (0.0-0.012) X10*3/uL Nucleated RBC % (auto) 0.0 (0.0-0.2) /100WBC ESR 7 (0-15) MM/HR Sodium 136 (135-145) mmol/L Potassium 4.4 (3.3-5.1) mmol/L Chloride 98 (96-108) mmol/L Carbon Dioxide 31 H (22-29) mmol/L Anion Gap 11 L (12-20) BUN 13 (9-16) mg/dL Creatinine 0.80 (0.5-1.4) mg/dL Estim Creat Clear Calc 154.6 Estimated GFR > 60 Random Glucose 94 (60-115) mg/dL Lactic Acid 1.3 (0.5-2.0) mmol/L Calcium 8.6 D (8.4-10.2) mg/dL Total Bilirubin 0.2 (0.0-1.0) mg/dL AST 29 (5-37) U/L ALT 19 (0-40) U/L Alkaline Phosphatase 95 (39-117) U/L C-Reactive Protein 0.30 (< or = 0.50) mg/dL Total Protein 6.8 (6.5-8.0) g/dL Albumin 4.1 (3.5-5.0) g/dL External Record Review External record reviewed: Outpatient record Prescription Management I considered prescription management with: Antibiotic Chronic Conditions Patient?s care impacted by: Other (See narrative above) Discharge Plan Discharge Clinical Impression: Bilateral lower leg cellulitis Patient Disposition: Home, Self-Care Instructions: Cellulitis (ED) Additional Instructions: As discussed, your blood work today was reassuring. You are being discharged with prescription for new course of antibiotics including MSRA coverage. Please monitor this closely. If you noticed progressive redness, swelling, pain, fevers, chills, inability to walk/bear weight on the legs you should seek re-evaluation. On doxycycline, do not take pills immediately before going to bed and swallow pills with plenty of water. Avoid direct sunlight, iron, antacids, and Pepto Bismol. Call your provider if you develop new ringing in your ears, new problems hearing, dizziness, difficulty swallowing, rash, abdominal discomfort, nausea, or diarrhea.? Prescriptions: New doxycycline hyclate 100 mg capsule 100 mg PO BID Qty: 14 0RF cephalexin 500 mg capsule 500 mg PO QID Qty: 28 0RF No Action omeprazole 20 mg capsule,delayed release(DR/EC) 20 mg PO DAILY@0630 90 Days Qty: 90 1RF (DME) POWER SCOOTER See Rx Instructions .Route .MEDSUPPLY Qty: 1 0RF Rx Instructions: As directed duloxetine 30 mg capsule,delayed release(DR/EC) 30 mg PO DAILY 90 Days Qty: 90 1RF pregabalin [Lyrica] 75 mg capsule 75 mg PO TID 30 Days Qty: 90 3RF baclofen 10 mg tablet 10 mg PO BID 30 Days Qty: 60 3RF loxapine succinate 50 mg capsule 100 mg PO BEDTIME trazodone 100 mg tablet 200 mg PO BEDTIME furosemide 40 mg tablet 40 mg PO DAILY 30 Days Qty: 30 3RF simethicone [Gas Relief (simethicone)] 180 mg capsule 180 mg PO BID 30 Days Qty: 60 3RF Rx Instructions: after meals ketoconazole 2 % shampoo 1 appl topical 3XW 28 Days Qty: 120 0RF clotrimazole-betamethasone 1-0.05 % cream 1 appl topical BID 30 Days Qty: 45 0RF clonidine HCl 0.1 mg tablet 0.1 mg PO TID 90 Days Qty: 270 1RF hydroxyzine pamoate 50 mg capsule 50 mg PO TID PRN (Reason: anxiety) 90 Days Qty: 270 1RF mirtazapine 45 mg tablet 45 mg PO BEDTIME 90 Days Qty: 90 1RF oxcarbazepine 150 mg tablet 150 mg PO BID 90 Days Qty: 180 1RF albuterol sulfate [Ventolin HFA] 90 mcg/actuation HFA aerosol inhaler 2 puff inhalation RQ4H PRN (Reason: Shortness Of Breath/Wheezing) 30 Days Qty: 8.5 3RF Anoro Ellipta 62.5-25 mcg/actuation blister with device 1 ea inhalation DAILY 30 Days Qty: 60 3RF Referrals: Manuel Foy PA-C [Primary Care Provider, Internal Medicine] Print Language: Polish
[2024-10-07 17:17] LABS: MANUAL DIFF FLAG NO
[2024-10-07 17:26] LABS: Basophils Absolute Auto 0.1 X10*3/uL (0.0-0.2); Basophils Percent Auto 0.7 % (0-2); Eosinophils Absolute Auto 0.2 X10*3/uL (0.0-0.4); Eosinophils Percent Auto 3.6 % (0-4); Hematocrit 30.5 % (42.0-52.0); Hemoglobin 9.3 g/dl (14.0-18.0); Imm Gran Abs Auto 0.02 X10*3/uL (0.00-0.03); Imm Gran Pct Auto 0.3 % (0.0-0.4); Lymphocytes Absolute Auto 1.7 X10*3/uL (1.2-4.9); Lymphocytes Percent Auto 25.3 % (20-40); Mean Corpuscular HGB Conc 30.5 g/dl (31.0-36.0); Mean Corpuscular Hemoglobin 20.5 pg (27.0-33.0); Mean Corpuscular Volume 67.3 fL (80.0-98.0); Mean Platelet Volume 9.6 fL (9.4-12.4); Monocytes Absolute Auto 0.7 X10*3/uL (0.1-1.2); Monocytes Percent Auto 10.9 % (2-11); Neutrophils Percent Auto 59.2 % (45-73); Platelet Count 263 X10*3/uL (160-400); Red Blood Count 4.53 X10*6/uL (4.60-5.80); Red Cell Distribution Width 18.1 % (11.0-16.0); White Blood Count 6.8 X10*3/uL (4.8-10.8)
[2024-10-07 17:32] LABS: Alanine Aminotransferase 19 U/L (0-40); Albumin Level 4.1 g/dL (3.5-5.0); Alkaline Phosphatase 95 U/L (39-117); Anion Gap 11 (12-20); Aspartate Amino Transferase 29 U/L (5-37); Bilirubin Total 0.2 mg/dL (0.0-1.0); Blood Urea Nitrogen 13 mg/dL (9-16); Calcium 8.6 mg/dL (8.4-10.2); Carbon Dioxide 31 mmol/L (22-29); Chloride 98 mmol/L (96-108); Creatinine Clr Calc Pharmacy 154.6; Estimated Glomerular Filt Rate > 60; Glucose Random 94 mg/dL (60-115); Lactic Acid 1.3 mmol/L (0.5-2.0); Potassium 4.4 mmol/L (3.3-5.1); Sodium 136 mmol/L (135-145); Total Protein 6.8 g/dL (6.5-8.0)
[2024-10-07 18:13] VITALS: BP 135/108; PULSE 78; RESP 16; TEMP 36.9; O2SAT 94
[2024-10-07 18:26] LABS: Erythrocyte Sedimentation Rate 7 MM/HR (0-15)
--- OUTSIDE RECORDS SUMMARY | 2024-10-07 18:58 | XMS_ITS | Encounter Summary ---
Author Organization [facility] Address [address] [place] [address] Care Team Providers Care Gameplay Programmer Name Role Phone Paulo Schwarz Primary Care Provider [phone] Encounter Details Date Type Department Care Team (Late st Contact Info) Description 04/22/2017 Orders Only [facility] Pre-Admission Testing [address] [place] [address] Lexie Rust NP Social History Tobacco Use [...] of this encounter Procedures * Due to [place] state law, this organization might not be [...] in this encounter Results * Due to [place] state law, this organization might not be sharing negative HIV tests. * MRSA CULTURE SCREEN, NASAL ONLY (04/22/2017 12:22 PM EST) Methicillin Resistant Staphylococcus Aureus Screen SEE NOTE [facility] Comment: MRSA CULTURE SCREEN MICRO NUMBER: [id number] TEST STATUS: FINAL SPECIMEN SOURCE: NOT GIVEN SPECIMEN QUALITY: ADEQUATE RESULT: No methicillin resistant Staphylococcus aureus (MRSA) isolated. 04/22/2017 12:2 2 PM EST 04/22/2017 5:52 PM EST Narrative Resulting Agency Comment [id number] Lexie Rust FLEXOGRAPHIC PRESS HELPER LABORATORY Final Result Performing Organization Address City/State/[facility] Co de Phone Number [facility] [address] [place] [address] * EKG-TO BE READ AND BILLED BY [...] R TG Final Result Performing Organization Address [facility] Co de Phone Number [facility] * CULTURE, URINE, ROUTINE (04/22/2017 9:54 AM EST) Bacteria culture (Urine) SEE NOTE [facility] Comment: CULTURE, URINE, ROUTINE MICRO NUMBER: [id number] TEST STATUS: FINAL SPECIMEN SOURCE: NOT GIVEN SPECIMEN QUALITY: ADEQUATE RESULT: Single organism less than 10,000 CFU/mL isolated. These organisms, commonly found on external and internal genitalia, are considered colonizers. No further testing performed. 04/22/2017 9:54 AM EST 04/22/2017 2:49 PM EST Narrative Resulting Agency Comment [id number] us Lexie Rust NP LABORATORY Final Result Performing Organization Address [facility] de Phone Number [facility] [address] [place] [address] * PROTHROMBIN TIME (PT) (INR), BLOOD (04/22/2017 9:54 AM EST) INR 1.0 [facility] Comment: Reference Range 0.9-1.1 Moderate-intensity Warfarin Therapy 2.0-3.0 Higher-intensity Warfarin Therapy 3.0-4.0 PT 10.3 9.0 - 11.5 sec [facility] Comment: For more information on this test, go to: http://[email or web address].Groopie/faq/[email or web address] 04/22/2017 9:54 AM EST 04/22/2017 2:49 PM EST Narrative Resulting Agency Comment [id number] us Lexie Rust NP LAB SAME DAY RESULT Final Re sult Performing Organization Address [facility] Co de Phone Number [facility] [address] [place] [address] * (ABNORMAL) CBC INCLUDES DIFFERENTIAL AND PLATELET [...] 2:49 PM EST Narrative Resulting Agency Comment [id number] Lexie Rust FLEXOGRAPHIC PRESS HELPER LAB SAME DAY RESULT Final Re sult Performing Organization Address City/State/[facility] Co de Phone Number [facility] [address] [place] [address] * (ABNORMAL) BASIC METABOLIC PANEL WITH (GFR) (04/22/2017 9:54 AM EST) Glucose 79 65 - 99 mg/dL [facility] Comment:Fasting reference in terval Urea Nitrogen Blood (BUN) 6(L) 7 - 25 mg/dL [facility] Creatinine 0.88 0.70 - 1.33 mg/dL [facility] Comment: For patients >49 years of age, the reference limit for Creatinine is approximately 13% higher for people identified as -Peruvian. GFR 100 > OR = 60 mL/min/1. [...] needs for GFR calculation. Resulting Agency Comment [id number] us Lexie Rust NP LABORATORY Final Result Performing Organization Address City/State/[facility] Co de Phone Number [facility] [address] [place] [address] documented in this encounter Visit Diagnoses Diagnosis Pre-operative examination Preoperative examination, unspecified Primary osteoarthritis of right knee Primary localized osteoarthrosis, lower leg Sleep apnea, unspecified type Increased frequency of urination Urinary frequency documented in this encounter Care Teams Gameplay Programmer Relationship Specialty Start Date End Date Paulo Schwarz [address] [place] [address] [place] [address] PCP - General 01/07/08 documented as of this encounter
[2024-10-07] MEDS: Doxycycline Monohydrate 100 MG CAPSULE PO (19:26)
[2024-10-07] MEDS: cephALEXin 500 MG CAPSULE PO (19:26)
[2024-10-07 19:33] VITALS: BP 135/108; PULSE 78; RESP 16; TEMP 36.9; O2SAT 94
== END 2024-10-07 19:56 | disposition home or self-care (01) ==
PROVIDERS: Registered Nurse Emergency; Emergency Provider Internal Medicine; PCP Physician Assistant
DX: L03.115 Cellulitis of right lower limb (principal); L03.116 Cellulitis of left lower limb; Z79.899 Other long term (current) drug therapy; F17.210 Nicotine dependence, cigarettes, uncomplicated
CPT/HCPCS: 36415; 80053; 83605; 85025; 85652; 86140; 87040; 99283; 99284

== ENCOUNTER → 2024-10-23 19:30 | Outpatient (REF) | payer MEDICARE, MEDICAID, SELFPAY ==
--- OUTSIDE RECORDS SUMMARY | 2024-09-24 06:00 | XMS_ITS ---
Author Organization [facility] Address [address], [place] [id number] Care Team Providers Care Private Branch Exchange Operator Name Role Phone [facility] Primary Care Provider Monique jujuilaJosiane Sheffield Unavailable Edda Granado Unavailable Encounters Encounter Location Date Provider Diagnosis [facility] [address] [place] [phone] 09/24/2024 Edda Granado Plan Of Treatment Next Appt Details Provider Name:Edda Barragan, 10/29/2024 10:20:00 AM, [facility] Casting Machine Control Board Operator, [address] [place] [address], [phone], Progress Notes * OLIVOChuyDOB:1965 (58 yo M)Acc No.[id number]:09/24/2024 Case Management Patient: Chuy VILLAREAL Provider: Ayaan Granado :1965 A ge:58 Y S ex:Male Date:09/24/2024 Address:[address] [place], [place] [phone] Pcp:[facility] Subjective: * Chief Complaints: * * Medical History: Objective: Assessment: Plan: * Treatment: * Images: Billing Information: * Visit Code: * Procedure Codes: Care Plan Details* * Electronic signature of Anthony Granado on 10/23/2024 at 08:49 PM EDT Sign off status: Pending * Provider: Ayaan Granado Date: 0 09/24/2024 Generated for Keli delong/Mary/Florian on: 0 10/23/2024 08:49 PM EDT
--- OUTSIDE RECORDS SUMMARY | 2024-10-23 20:49 | XMS_ITS | Patient Health Record ---
Author Organization [facility] Address [address] [place] [address] Care Team Providers Care Weather Strip Installer Name Role Phone Karishma(inactive) Paulo KITCHEN Primary Care Provider U Jaswinder George Jr Unavailable [phone] Reason For Referral No Information Medications Medication SIG (Take, Route, Frequency, Duration) Notes Start Date End Date Status Omeprazole 20 MG 1 capsule Orally Onc e a day for 30 Active Vicodin 5-300 MG 1 tablet as needed O rally every 6 hrs Active Omeprazole 20 MG 1 capsule Orally Onc e a day for 30 day(s) 04/22/2015 Active Lyrica 75 MG 2 capsules Orally Tw ice a day Active Colyte with Flavor Packs 240 GM As directed Orally Over the specified time. for 1 day(s) 06/24/2015 Active Social History Tobacco Use: Social History Observation Description Date Details (start date - stop date) Current Smoker NA - NA Tobacco Use/Smoking Question Answer Notes Patient is a current smoker How often do you smoke cigarettes? every day How many cigarettes a day do you smoke? 21-30 How soon after you wake up d o you smoke your first cigarette? within 5 minutes Are you interested in quitting? Thinking about q uitting Problems Problem Type SNOMED Code ICD Code Onset Dates Problem Status W/U Status Risk Notes Problem 64424706 Rectal bleeding (K62.5) Active confirmed Problem 542004802 Jordan's esophagus without dysplasia (K22.70) Active confirmed Plan Of Treatment Future Test Test Name Order Date UPPER GI ENDOSCOPY 06/24/2015 COLONOSCOPY 06/24/2015 Insurance Providers Payer Name Payer Address Payer Phone Subscriber Number Group Number Insured Name Patient Relationship to Insured Coverage Start Date Coverage End Date MEDICARE OF [place] [address] [place] [id number] WES OLIVO Self - patient is the insured MEDICAID OF [facility] [address] [place] [phone] [id number] WES OLIVO Self - patient is the insured Medical (General) History Medical History History ICD Code Jordan's esophagus right knee arthritis Denies [place],DM,CVA,Lung disease,renal dise ase Surgical History Surgery Date(Month/Year) gastric bypass hernia repair left hip replacement right hip replacement trachiotomy colostomy
--- OUTSIDE RECORDS SUMMARY | 2024-10-23 20:49 | XMS_ITS | Clinical Summary ---
Author Organization [facility] Address [address] [place] [address] Care Team Providers Care Barrel Lathe Operator Inside Name Role Phone Patient, Has No Pcp [...] 30 tablet 06/16/2024 11:56 AM EST Active Active Problems Problem Noted Date Diagnosed [...] AM EST): Patient with COPD presenting from [facility] for hypoxia after he was [...] a PCP but does not have a in room dining server, may benefit from outpatient referral to decrease incidence of hospitalization. On discharge: -prednisone 40mg daily through 05/26 -Ambulatory pulmonology referral placed Assessment & Plan (05/24/2024 10:55 AM EST): Patient with COPD presenting from [facility] for hypoxia after he was [...] a PCP but does not have a in room dining server, may benefit from outpatient referral to decrease incidence of hospitalization. -prednisone 40mg daily x 5 days (D1: 27) -duonebs q4hr PRN -albuterol 2.5mg neb q4hr prn -maintain SpO2 88-92% -Ambulatory pulmonology referral on discharge Assessment & Plan (05/23/2024 3:55 PM EST): Patient with COPD presenting from [facility] for hypoxia after he was [...] a PCP but does not have a in room dining server, may benefit from outpatient referral to decrease incidence of hospitalization. -prednisone 40mg daily x 5 days (D1: 05/22) -duonebs q4hr scheduled -albuterol 2.5mg neb q4hr prn -maintain SpO2 88-92% -may benefit from pulm outpatient Assessment & Plan (05/22/2024 1:21 PM EST): Patient with COPD presenting from [facility] for hypoxia after he was [...] a PCP but does not have a in room dining server, may benefit from outpatient referral to decrease incidence of hospitalization. -prednisone 40mg daily x 5 days (D1: 7) -duonebs q4hr scheduled -albuterol 2.5mg neb q4hr [...] 100 mg p.o. nightly Patient discharged to [facility] program, they will be assisting him with transitional housing. Discussed with patient that he will need a primary care doctor and he states [facility] program has been helping him organize [...] several hospital admissions for withdrawal, presented from [facility] of acute hypoxic respiratory failure [...] several hospital admissions for withdrawal, presented from [facility] of acute hypoxic respiratory failure [...] several hospital admissions for withdrawal, presented from [facility] of acute hypoxic respiratory failure 2/2 COPDe. He has been on a 2 day detox from cocaine and alcohol. Reports last use was 05/20. Was given 10 mg of Valium by [facility] due to withdrawal symptoms and CIWA 10. -CIWA with rescue valium -continue home clonidine 0.1mg 3 times a day prn -thiamine, folic acid, Mag Assessment & Plan (05/22/2024 1:21 PM EST): History of cocaine and OUD with several hospital admissions for withdrawal, presented from [facility] of acute hypoxic respiratory failure 2/2 COPDe. He has been on a 2 day detox from cocaine and alcohol. Reports last use was 05/20. Was given 10 mg of Valium by [facility] due to withdrawal symptoms and CIWA 10. -CIWA with rescue valium -continue home clonidine 0.1mg 3 times a day prn -thiamine, folic acid, Mag Assessment & Plan (05/05/2024 11:43 AM EST): History of cocaine and OUD with several hospital admissions for withrawal, presented from [facility] ([facility]) in the setting of COVID. 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 [facility]red [facility] under Section [facility]. Was evaluated by [...] psychotropic medications. Transferred to the hospital from [facility] under Section 21. Was evaluated by [...] psychotropic medications. Transferred to the hospital from [facility] under Section 21. I am unclear [...] psychotropic medications. Transferred to the hospital from [facility] under Section 21. I am unclear [...] psychotropic medications. Transferred to the hospital from [facility] under Section 21. I am unclear at this time if he is also under Section 12 (hospitalized for 02/2024). Will need to clarify with psychiatry CL here - HOLD loxapine 100 mg [not noted in [facility] MAR] - [facility] mg daily [facility] - Hydroxyzine 25 mg every 8 hours as needed - Pregabalin 75 mg three times a day - Formal psych evaluation requested to help clarify Section and medications Assessment & Plan (04/24/2024 11:29 AM EST): No home meds, although patient has Clonidine as prescribed in the past for anxiety PRN. Was hospitalized at [facility] with suicidal ideations & ACRHF in Feb 2024. -Clonidine 0.1 mg 3 times a day PRN Assessment & Plan (04/23/2024 9:51 AM EST): No home meds, although patient has Clonidine as prescribed in the past for anxiety PRN. Was hospitalized at [facility] with suicidal ideations & ACRHF in Feb 2024. -Clonidine 0.1 mg 3 times a day PRN Assessment & Plan (04/22/2024 9:22 AM EST): No home meds, although patient has Clonidine as prescribed in the past for anxiety PRN. Was hospitalized at [facility] with suicidal ideations & ACRHF in Feb 2024. -Clonidine 0.1 mg 3 times a day PRN Assessment & Plan (04/21/2024 9:58 AM EST): No home meds, although patient has Clonidine as prescribed in the past for anxiety PRN. Was hospitalized at [facility] with suicidal ideations & ACRHF in Feb 2024. -Clonidine 0.1 mg 3 times a day PRN Assessment & Plan (04/20/2024 11:03 AM EST): No home meds, although patient has Clonidine as prescribed in the past for anxiety PRN. Was hospitalized at [facility] with suicidal ideations & ACRHF in Feb 2024. -Clonidine 0.1 mg 3 times a day PRN Assessment & Plan (04/19/2024 12:45 PM EST): No home meds, although patient has Clonidine as prescribed in the past for anxiety PRN. Was hospitalized at [facility] with suicidal ideations & ACRHF in Feb [...] to re-establish care with PCP. He said [facility] program is helping him with this [...] (05/22/2024 1:21 PM EST): Patient presenting from [facility] with acute hypoxia, placed on [...] 11:29 AM EST): Patient was brought from [facility] due to developing altered mental status (lethargy) after x1 valium for alcohol withdrawal. Immediately became hypoxic with aspiration episode and briefly needed supplemental oxygen, then was sent to [facility] for evaluation. Patient's mental status was back to baseline on 1/4 PM. Last drink was 04/16/24 prior to admission to [facility] on same day. CT head neg. -CIWA protocol with Ativan, discontinued as pt non-scoring -Folic acid & thiamine PO daily -Seizure precautions -SW consulted for AUD. Assessment & Plan (04/23/2024 9:51 AM EST): Patient was brought from [facility] due to developing altered mental status (lethargy) after x1 valium for alcohol withdrawal. Immediately became hypoxic with aspiration episode and briefly needed supplemental oxygen, then was sent to [facility] for evaluation. Patient's mental status was back to baseline on 1/4 PM. Last drink was 04/16/24 prior to admission to [facility] on same day. CT head neg. -CIWA protocol with Ativan, discontinued as pt non-scoring -Folic acid & thiamine PO daily -Seizure precautions -SW consulted for AUD. Assessment & Plan (04/22/2024 9:22 AM EST): Patient was brought from [facility] due to developing altered mental status (lethargy) after x1 valium for alcohol withdrawal. Immediately became hypoxic with aspiration episode and briefly needed supplemental oxygen, then was sent to [facility] for evaluation. Patient's mental status was back to baseline on 1/4 PM. Last drink was 04/16/24 prior to admission to [facility] on same day. CT head neg. -CIWA protocol with Ativan, discontinued as pt non-scoring -Folic acid & thiamine PO daily -Seizure precautions -SW consulted for AUD. Assessment & Plan (04/21/2024 9:58 AM EST): Patient was brought from [facility] due to developing altered mental status (lethargy) after x1 valium for alcohol withdrawal. Immediately became hypoxic with aspiration episode and briefly needed supplemental oxygen, then was sent to [facility] for evaluation. Patient's mental status was back to baseline on 1/4 PM. Last drink was 04/16/24 prior to admission to [facility] on same day. CT head neg. -CIWA protocol with Ativan, discontinued as pt non-scoring -Folic acid & thiamine PO daily -Seizure precautions -SW consulted for AUD. Assessment & Plan (04/20/2024 11:03 AM EST): Patient was brought from [facility] due to developing altered mental status (lethargy) after x1 valium for alcohol withdrawal. Immediately became hypoxic with aspiration episode and briefly needed supplemental oxygen, then was sent to [facility] for evaluation. Patient's mental status was back to baseline on 1/4 PM. Last drink was 04/16/24 prior to admission to [facility] on same day. CT head neg. -CIWA protocol with Ativan -Folic acid & thiamine PO daily -Seizure precautions -SW consulted for AUD. Assessment & Plan (04/19/2024 12:45 PM EST): Patient was brought from [facility] due to developing altered mental status (lethargy) after x1 valium for alcohol withdrawal. Immediately became hypoxic with aspiration episode and briefly needed supplemental oxygen, then was sent to [facility] for evaluation. Patient's mental status was back to baseline on 04/18 PM. Last drink was 04/16/24 prior to admission to [facility] on same day. CT head neg. -[facility] protocol with Ativan -Folic acid & thiamine PO daily -Seizure precautions - consulted for alcoholism. Assessment & Plan (04/18/2024 9:52 PM EST): 58 years old male, chronic alcohol abuse and GERD, transferred from [facility]. Patient has been admitted for alcohol detoxification, patient received Valium and post therapy developed respiratory distress, developed hypoxia and transferred to [facility] via EMS Plan: 1-[facility] protocol 2- replacement of multivitamins Aspiration pneumonia [...] Flagyl, Rocephin. Patient was recently admitted at [facility] for AHRF and Suicidal ideations. -04/20/24 CT [...] Flagyl, Rocephin. Patient was recently admitted at [facility] for AHRF and Suicidal ideations. -04/20/24 CT [...] Flagyl, Rocephin. Patient was recently admitted at [facility] for AHRF and Suicidal ideations. -04/20/24 CT [...] Flagyl, Rocephin. Patient was recently admitted at [facility] for AHRF and Suicidal ideations. -04/20/24 CT [...] Flagyl, Rocephin. Patient was recently admitted at [facility] for AHRF and Suicidal ideations. -MRSA PCR [...] Flagyl, Rocephin. Patient was recently admitted at [facility] for AHRF and Suicidal ideations. -MRSA PCR [...] drink = 0.6 oz pur e alcohol) [facility] Utilities Answer Date Recorded In the past 12 months has th e [employer] gas, oil, or water company threatened to shut off services in your [...] 89 06/16/2024 7:00 AM EST Temperature 36.4 C (97.5 F) 06/16/2024 7:00 AM EST Respiratory Rate 18 06/16/2024 8:37 AM EST [...] Screening 04/15/2024 Depression Screening and Follow-Up 04/15/2024 Influenza Vaccine (#1) 2024 12/21/2023, 2019 CT Lung Cancer Screening (Baseline) 04/20/2025 04/20/2024, 02/24/2024, 02/24/2024, Additional history exists Social Drivers of Health Negra ual Screening 05/22/2025 05/22/2024 RSV Vaccine (60+ years old a nd patients) (1 - 1-dose 75+ series) 2041 Abdominal Aortic Aneurysm (A AA) Screening Completed 04/21/2024 Hepatitis C Screening Completed 06/05/2024 Procedures * Due to [place] [employer] law, this organization might not be sharing negative HIV tests. Procedure Name Priority Date/Time Associated Diagnosis Comments HEPATITIS C ANTIBODY W/REFLEX TO HCV RNA, QUANTITATIVE PCR STAT 06/05/2024 4:[address] ABDOMEN PELVIS W CONTRAST Routine 04/21/2024 8:[address] CHEST WO CONTRAST Routine 04/20/2024 8:42 PM EST from Last 3 Months or Most Recently Relevant to Health Maintenance Results * Due to [place] [employer] law, this organization might not be sharing negative HIV tests. * Hepatitis C Antibody w/Reflex to HCV RNA, Quantitative PCR (06/05/2024 4:23 PM EST) Hepatitis C Antibody NON-REACT BRISSA NON-REACT BRISSA 06/06/2024 9:01 AM EST [employer] Comment: HCV antibody was non-reactive. There is no laboratory evidence of HCV infection. In most cases, no further action is required. However, if recent HCV exposure is suspected, a test for HCV RNA (test code 24320) is suggested. For additional information please refer to http://education.[employer]/faq/DSU26f5 (This link is being provided for informational/ educational purposes only.) Blood Structure of peripheral vein / Unknown Venipuncture / Unknown 06/05/2024 4:23 PM EST 06/05/2024 4:44 PM EST Narrative [facility] - 06/06/2024 9:01 AM EST [facility] Received Date: us John Mello MD LAB BLOOD ORDERABLES Final Re sult [facility] [address] [facility] [address], [place] [address], [facility] [address], [place] [address], * CT Abdomen Pelvis with Contrast (04/21/2024 [...] section, it is an incomplete radiology report. Please contact the interpreting radiologist or applicable radiology division as soon as possible to obtain the completed interpretation. Workstation ID: [id number] Narrative 04/22/2024 9:27 AM EST EXAMINATION: CT abdomen and pelvis, with oral and intravenous contrast. INDICATION: Abdominal mass. TECHNIQUE: Multiple axial images are obtained from the symphysis pubis to the diaphragm. Oral and intravenous contrast is administered. 2-D sagittal and coronal reformats were created. For radiation dose control at least one of the following techniques was used in this procedure (1) Automated exposure control (2) Adjustment of the mA and/or kV according to patient size (3) Use of iterative reconstruction technique. COMPARISON: Chest CT 04/20/2024 FINDINGS: Significantly limited by metallic streak artifact from bilateral total hip arthroplasty. ANTIQUE FURNITURE RESTORER TOPOGRAM: As below LUNG BASES: Motion degraded. [...] outside the cortical bone. Resulting Agency Comment [id number] Procedure Note Carol Ann Mccloud MD - [...] metallic streak artifact from bilateraltotal hip arthroplasty. ANTIQUE FURNITURE RESTORER TOPOGRAM: As below LUNG BASES: Motion degraded. [...] possible to obtain thecompleted interpretation. Workstation ID: [id number] Nikolai Gonsalez MD IMG CT PROCEDURES Final Result * CT Chest without Contrast (04/20/2024 8:42 PM EST) Anatomical Region Laterality Modality Body Computed Tomogra phy 04/21/2024 7:34 AM EST Impressions 04/21/2024 7:45 AM EST 1. Ill-defined peribronchial nodular and groundglass opacities in the right upper lobe, some of which demonstrate internal cavitation, may be infectious/inflammatory in etiology. A follow-up CT chest is recommended in 2-3 months to reassess. 2. Scattered areas of subsegmental consolidations in both lower lobes, may represent multifocal pneumonia versus atelectasis. Comparison with prior imaging if available, would be worthwhile. 3. No intrathoracic lymphadenopathy or pleural effusions. 4. Partially imaged 5.4 cm relatively well-defined fat attenuation area posterior to the stomach and in the region of left adrenal gland, incompletely characterized. Differential diagnoses includes area of fat necrosis versus adrenal myelolipoma. Consider dedicated CT abdomen for further characterization. If this radiology report contains a blank impression section, it is an incomplete radiology report. Please contact the interpreting radiologist or applicable radiology division as soon as possible to obtain the completed interpretation. Workstation ID: [id number] Narrative 04/21/2024 7:45 AM EST Indication: Lung nodule, > 8mm - Prominent [...] aortic wall calcifications. Common origin of the right brachiocephalic and left common carotid arteries, an anatomic variant. Pulmonary arteries Pulmonary artery is not dilated. Esophagus Small hiatal hernia. Postsurgical changes from probable prior Leandra fundoplication., Other [...] Bilateral upper lobe predominant centrilobular emphysema. Scattered areas of subsegmental consolidations in both lower lobes. Ill-defined peribronchial nodular and groundglass opacities in the right upper lobe, some of which demonstrate central cavitation, for example, 6 mm right upper lobe nodule (203:97) with internal cavitation and another 4 mm right upper lobe groundglass nodule with cavitation (203:104). Airways: Moderate thickening and irregularities of the airway dhillon. Central airways are clear. Pleura: No pleural effusions or pneumothorax. Upper abdomen: A 5.4 cm relatively well-defined fat attenuation area posterior to the stomach and in the region of left adrenal gland (202:296). Absence of intravenous contrast limits sensitivity for detecting solid organ findings. Chest wall: No chest wall mass. Bones and soft tissues: No suspicious lytic or blastic lesions. Multilevel degenerative changes in the spine. Resulting Agency Comment [id number] Procedure Note Anastasiia Mcnamara MD - 04/21/2024 [...] possible to obtain thecompleted interpretation. Workstation ID: [id number] Nikolai Gonsalez MD IMG CT PROCEDURES Final Result from Last 3 Months or Most Recently Relevant to Health Maintenance Insurance [facility] Advance Directives Documents on File Type Date Recorded Patient Ore Mixer Expl anation Health Care Proxy 04/20/2024 3:47 PM Ira Salazaro 2024 * Full Code (Latest Code Status [...] Castro Sister Health Care Agent Care Teams Barrel Lathe Operator Inside Relationship Specialty Start Date End Date Patient, Has No Pcp Or Ref DO NOT EDIT THIS RECORD VIA PROVIDER ON THE FLY PCP - General Registry Rn 04/17/24
--- OUTSIDE RECORDS SUMMARY | 2024-10-23 20:49 | XMS_ITS | Clinical Summary ---
Author Organization [facility] Address [address] [place] [address] Care Team Providers Care Community Development Officer Name Role Phone Unavailable Primary Care Provider [...] Vaccines (1 of 2) 2016 COVID-19 Vaccine (1 - 2023-2 5 season) 2023 Influenza Vaccine (#1) 2024 HIB Vaccines Aged Out No longer eligi [...] 5 Years) and At-Risk Patients (6 to 49 Years) Aged Out No longer eligible b ased on patient's age to complete this topic RSV Immunization Patients Un isaías 20 months Aged Out No longer eligible b ased on patient's age to complete this topic Varicella Vaccines Aged Out No longer eligible based on patient's age to complete this topic
--- OUTSIDE RECORDS SUMMARY | 2024-10-23 20:49 | XMS_ITS | Encounter Summary ---
Author Organization [facility] Address [address] [place] [address] Care Team Providers Care Dairy Truck Driver Name Role Phone Paulo Schwarz Primary Care Provider [phone] Encounter Details Date Type Department Care Team (Late st Contact Info) Description 04/22/2017 Orders Only [facility] Pre-Admission Testing [address] [place] [address] Lexie Rust NP Social History Tobacco Use [...] of this encounter Procedures * Due to [place] state law, this organization might not be [...] in this encounter Results * Due to [place] state law, this organization might not be sharing negative HIV tests. * MRSA CULTURE SCREEN, NASAL ONLY (04/22/2017 12:22 PM EST) Methicillin Resistant Staphylococcus Aureus Screen SEE NOTE [facility] Comment: MRSA CULTURE SCREEN MICRO NUMBER: [id number] TEST STATUS: FINAL SPECIMEN SOURCE: NOT GIVEN SPECIMEN QUALITY: ADEQUATE RESULT: No methicillin resistant Staphylococcus aureus (MRSA) isolated. 04/22/2017 12:2 2 PM EST 04/22/2017 5:52 PM EST Narrative Resulting Agency Comment [id number] Lexie Rust [facility] Final Result Performing Organization Address City/State/[facility] Co de Phone Number [facility] [address] [place] [address] * EKG-TO BE READ AND BILLED BY [...] R TG Final Result Performing Organization Address [facility] Co de Phone Number [facility] * CULTURE, URINE, ROUTINE (04/22/2017 9:54 AM EST) Bacteria culture (Urine) SEE NOTE [facility] Comment: CULTURE, URINE, ROUTINE MICRO NUMBER: [id number] TEST STATUS: FINAL SPECIMEN SOURCE: NOT GIVEN SPECIMEN QUALITY: ADEQUATE RESULT: Single organism less than 10,000 CFU/mL isolated. These organisms, commonly found on external and internal genitalia, are considered colonizers. No further testing performed. 04/22/2017 9:54 AM EST 04/22/2017 2:49 PM EST Narrative Resulting Agency Comment [id number] us Lexie Rust NP LABORATORY Final Result Performing Organization Address [facility] de Phone Number [facility] [address] [place] [address] * PROTHROMBIN TIME (PT) (INR), BLOOD (04/22/2017 9:54 AM EST) INR 1.0 [facility] Comment: Reference Range 0.9-1.1 Moderate-intensity Warfarin Therapy 2.0-3.0 Higher-intensity Warfarin Therapy 3.0-4.0 PT 10.3 9.0 - 11.5 sec [facility] Comment: For more information on this test, go to: [email or web address] 04/22/2017 9:54 AM EST 04/22/2017 2:49 PM EST Narrative Resulting Agency Comment [id number] us Lexie Rust NP LAB SAME DAY RESULT Final Re sult Performing Organization Address [facility] Co de Phone Number [facility] [address] [place] [address] * (ABNORMAL) CBC INCLUDES DIFFERENTIAL AND PLATELET [...] 2:49 PM EST Narrative Resulting Agency Comment [id number] Lexie Rust [facility] SAME DAY RESULT Final Re sult Performing Organization Address City/State/[facility] Co de Phone Number [facility] [address] [place] [address] * (ABNORMAL) BASIC METABOLIC PANEL WITH (GFR) (04/22/2017 9:54 AM EST) Glucose 79 65 - 99 mg/dL [facility] Comment:Fasting reference in terval Urea Nitrogen Blood (BUN) 6(L) 7 - 25 mg/dL [facility] Creatinine 0.88 0.70 - 1.33 mg/dL [facility] Comment: For patients >49 years of age, the reference limit for Creatinine is approximately 13% higher for people identified as -Turkmen. GFR 100 > OR = 60 mL/min/1. [...] needs for GFR calculation. Resulting Agency Comment [id number] us Lexie Rust NP LABORATORY Final Result Performing Organization Address City/State/[facility] Co de Phone Number [facility] [address] [place] [address] documented in this encounter Visit Diagnoses Diagnosis Pre-operative examination Preoperative examination, unspecified Primary osteoarthritis of right knee Primary localized osteoarthrosis, lower leg Sleep apnea, unspecified type Increased frequency of urination Urinary frequency documented in this encounter Care Teams Dairy Truck Driver Relationship Specialty Start Date End Date Paulo Schwarz [address] [place] [address] [place] [address] PCP - General 01/07/08 documented as of this encounter
== END ==
LOC: HO.SL 19:30
PROVIDERS: PCP Physician Assistant; Visit Provider Internal Medicine
DX: E66.01 Morbid (severe) obesity due to excess calories (principal); G47.33 Obstructive sleep apnea (adult) (pediatric); Z79.899 Other long term (current) drug therapy
CPT/HCPCS: 95810; 95811

== ENCOUNTER → 2024-10-23 21:43 | Outpatient (BNV) | payer MEDICARE, MEDICAID, SELFPAY | PROVIDERS: PCP Physician Assistant; Visit Provider Internal Medicine | DX: G47.33 Obstructive sleep apnea (adult) (pediatric) (principal); R06.83 Snoring | CPT/HCPCS: 95810 ==

== ENCOUNTER 2024-10-24 14:49 | Inpatient (IN) | payer MEDICARE, MEDICAID, SELFPAY ==
--- NOTE | ~2024-10-24 | US_ITS ---
CLINICAL HISTORY: pvd Bilateral lower extremity arterial duplex ultrasound Comparison: None provided . Findings: Triphasic flow noted throughout the bilateral lower extremities. No significant plaque noted on cross-sectional images. There is no significant velocity alteration demonstrated. Impression: No significant velocity-altering stenosis. This document has been electronically signed by: Marvel Munguia MD on 10/26/2024 19:56:17
--- NOTE | ~2024-10-24 | US_ITS ---
CLINICAL HISTORY: redness, edema, rule out DVT, vascular issue Bilateral lower extremity duplex venous Doppler Comparison: US/SR - US VENOUS DUPLEX LE BI - 12/26/23 17:16 EDT Technique: Grayscale/Color/Duplex Doppler sonographic evaluation of the deep venous system within both lower extremities. Findings: Right lower extremity Common femoral vein: Patent CFV/GSV junction: Patent Femoral vein: Patent Popliteal vein: Patent Infrapopliteal veins: Posterior tibial vein is patent peroneal vein not well visualized. Soft tissue: 7.3 x 3.5 x 4.5 cm Yip's cyst Left lower extremity Common femoral vein: Patent CFV/GSV junction: Patent Femoral vein: Patent Popliteal vein: Patent Infrapopliteal veins: Suboptimal evaluation due to body habitus and calf edema Soft tissues: No focal abnormality Impression: 1. Negative for bilateral lower extremity DVT. Limited assessment of the calf veins due to body habitus and calf edema. 2. Right yip's cyst This document has been electronically signed by: Balbir Low MD on 10/25/2024 09:17:58
--- NOTE | ~2024-10-24 | XR_ITS ---
CLINICAL HISTORY: dyspnea on exertion Two views of the chest. COMPARISON: XR chest dated 05/11/24 at 19:[address] chest dated 03/17/24 at 11:03 EST FINDINGS: Low lung volumes. Borderline cardiomegaly. Bronchial wall thickening. No consolidation. No pleural effusion or pneumothorax. No acute fracture. IMPRESSION: 1. Low lung volumes. 2. Bronchial wall thickening. Nonspecific finding can be seen with pulmonary edema or a multifocal infectious or inflammatory process. This document has been electronically signed by: Khurram Trujillo MD on 10/24/2024 17:32:02
--- NOTE | ~2024-10-24 | CT_ITS ---
CLINICAL HISTORY: SOB, hx of DVTs, also, CXR abn CT angiography of the chest with IV contrast. 3D/MIP post processing reconstructions were performed. COMPARISON: XR chest dated 10/24/24 at 16:[address] chest dated 03/17/24 at 11:03 EST FINDINGS: Motion and contrast bolus timing limits evaluation of the distal pulmonary arteries. There is transient interruption of the contrast bolus. No intraluminal filling defects within the main or lobar pulmonary arteries to suggest pulmonary embolism. No evidence of right heart strain. Visualized thyroid is unremarkable. No supraclavicular or axillary lymphadenopathy. Ascending aorta and main pulmonary artery are normal in caliber. No pericardial effusion. Moderate hiatal hernia. No mediastinal or hilar lymphadenopathy. No pleural effusion. Patchy ground-glass present along the medial right lower lobe and right middle lobes. Trachea and central airways are clear. Mild bronchial wall thickening. Moderate emphysema with upper lobe predominance. No bronchiectasis. Cluster of right lower lobe pulmonary nodules measuring up to 0.7 cm (series 6, image [id number]). These are new since prior imaging. Right middle lobe 4 mm pulmonary nodule (series 6, image 76), stable. Status post gastric bypass. IMPRESSION: 1. No evidence of pulmonary embolism within the main or lobar pulmonary arteries. Motion and contrast bolus timing limits evaluation of the distal pulmonary arteries. 2. Patchy ground-glass and consolidation along the medial right middle lobe and right lower lobe suggestive of an inflammatory or infectious process including aspiration pneumonitis. 3. Emphysema with mild bronchial wall thickening consistent with smoking related lung injury. 4. Cluster of pulmonary nodules within the right lower lobe measuring up to 6 mm, new since prior imaging. This could be related to the underlying infectious or inflammatory process. Recommend short-term follow-up imaging in 3-6 months. 5. Small hiatal hernia. This document has been electronically signed by: Khurram Trujillo MD on 10/24/2024 18:49:42
[2024-10-24 15:00] VITALS: BP 134/93; PULSE 73; O2SAT 93
[2024-10-24 15:02] VITALS: BMI 57.9
[2024-10-24] MEDS: Albuterol Sulfate 5 MG, Albuterol/Iprat 2.5/0.5MG 3 ML 3 ML INHALE (15:02)
[2024-10-24 15:03] VITALS: BP 146/63; PULSE 69; RESP 17; TEMP 36.6; O2SAT 96
[2024-10-24 15:04] VITALS: PULSE 68; RESP 22; O2SAT 95
[2024-10-24 15:49] VITALS: O2SAT 88; O2SAT 95
--- NOTE | 2024-10-24 16:08 | ED.GENADULT ---
HPI - General Adult General Chief complaint: General Medical Stated complaint: SOB,CPAP/NON COMP,FAILED SLEEP STUDY,FROM REC [facility] Time Seen by Provider: 10/24/24 16:08 History of Present Illness ED Provider: José CESPEDES narrative: The patient is a 58-year-old male who lives [facility] a penit[facility] for [facility]. Yesterday the patient had an outpatient sleep study at the [facility] sleep lab in [place]. He spent the night at the sleep lab. This morning he returned to his penitentiary. Later he was contacted by the penitentiary that he needed to go to the emergency department because he was in respiratory failure. An ambulance was called and he was brought here. On arrival here he was found to have oxygen saturations of about 88% on room air. He is not normally on oxygen. The patient says that he has had worsening dyspnea on exertion for several weeks or possibly even months. He has a history of morbid obesity, he has a history of obstructive sleep apnea, history of smoking and he still smokes. He also has a history of COPD. He says that he has has had blood clots in his legs in the past. He does not recall ever being told he had pulmonary emboli however. He is not on anticoagulation. He saw Dr. Sylvester of pulmonology last month who arranged the sleep steady. No definite history of fever, sweats, chills. He says he has been sneezing and a lot today however. He has been on antibiotics for redness in his legs. He says he has had redness to the skin of his lower legs for some time. The antibiotics have not been helpful. No recent fevers. However he does feel that he might have had increased coughing last night. Related Data Home Medications ?Medication ?Instructions ?Recorded ?Confirmed loxapine succinate 50 mg capsule 100 mg PO BEDTIME 05/12/24 10/07/24 trazodone 100 mg tablet 200 mg PO BEDTIME 09/15/24 10/07/24 Previous Rx's ?Medication ?Instructions ?Recorded albuterol sulfate 90 mcg/actuation 2 puff inhalation RQ4H PRN 07/21/24 aerosol inhaler (Ventolin HFA) Shortness Of Breath/Wheezing 30 days #8.5 grams clonidine HCl 0.1 mg tablet 0.1 mg PO TID 90 days #270 tabs 07/21/24 hydroxyzine pamoate 50 mg capsule 50 mg PO TID PRN anxiety 90 days 07/21/24 #270 caps mirtazapine 45 mg tablet 45 mg PO BEDTIME 90 days #90 tabs 07/21/24 oxcarbazepine 150 mg tablet 150 mg PO BID 90 days #180 tabs 07/21/24 umeclidinium 62.5 mcg-vilanterol 1 ea inhalation DAILY 30 days #60 07/21/24 25 mcg/actuation powdr for ea inhalation (Anoro Ellipta) omeprazole 20 mg capsule,delayed 20 mg PO DAILY@0630 90 days #90 07/23/24 release caps baclofen 10 mg tablet 10 mg PO BID 30 days #60 tabs 07/27/24 pregabalin 75 mg capsule (Lyrica) 75 mg PO TID 30 days #90 caps 07/27/24 clotrimazole-betamethasone 1 1 appl topical BID 30 days #45 09/15/24 %-0.05 % topical cream grams furosemide 40 mg tablet 40 mg PO DAILY 30 days #30 tabs 09/15/24 ketoconazole 2 % shampoo 1 appl topical 3XW 4 weeks #120 mL 09/15/24 simethicone 180 mg capsule (Gas 180 mg PO BID 30 days #60 caps 09/15/24 Relief (simethicone)) POWER SCOOTER #1 ea 09/16/24 duloxetine 30 mg capsule,delayed 30 mg PO DAILY 90 days #90 caps 09/17/24 release cephalexin 500 mg capsule 500 mg PO QID #28 caps 10/07/24 doxycycline hyclate 100 mg capsule 100 mg PO BID #14 caps 10/07/24 meloxicam 15 mg tablet 15 mg PO DAILY 30 days #30 tabs 10/20/24 Allergies Allergy/AdvReac Type Severity Reaction Status Date / Time oxycodone AdvReac Unknown GI upset Verified 10/24/24 15:04 Review of Systems Review of Systems: Yes all other systems are reviewed and are negative PMFSH Past Medical History Medical History Morbid (severe) obesity due to excess calories COPD (chronic obstructive pulmonary disease) Cocaine use disorder MDD (major depressive disorder) Homeless ANA (obstructive sleep apnea) Varicose veins of right lower extremity Peripheral vascular disease GERD (gastroesophageal reflux disease) History of pernicious anemia Hx of acute respiratory failure Edema Back pain Arthritis History of DVT of lower extremity Depression ANA treated with BiPAP Right-sided heart failure Surgical History History of incisional hernia repair Hx of esophagogastroduodenoscopy Hx of colonoscopy History of total right knee replacement S/P right knee arthroscopy Hx of tracheostomy Hx of total hip arthroplasty History of colostomy reversal History of colon resection H/O gastric bypass Family History Family History Father Displacement of central venous catheter (CVC) Mother Unknown family medical history Social History Social History Household Members: None Housing: Homeless ([facility]) Do you presently have visiting nurse or other home services: No Alcohol intake: former Year quit: 2024 Patient Tobacco Use Status: Current everyday Tobacco user Tobacco use type: Cigarette Cigarette Packs Per Day: 0.5 Cigarettes Per Day: 10.0 Years Smoked: 40 Smoked in Last 30 Days: Yes e-Cigarette/Vaping Use: Former Use Second Hand Smoke Exposure: Yes Use of substances other than those prescribed or required for medical reasons: No Substance Use Type: Crack/Cocaine Advance Directives: No Advance Directives Information Provided: Yes service: No Sexual orientation: Straight/Heterosexual Cognitive needs: No Hearing needs: No Vision needs: Yes (Reading glasses) Physical Exam ED Vital Signs: Vital Signs - 24 hr 10/24/24 15:03 10/24/24 15:04 10/24/24 15:49 Temperature 97.8 F Pulse Rate 69 68 Respiratory Rate 17 22 H Blood Pressure 146/63 H Pulse Oximetry 96 88 L Oxygen Delivery Method Room Air Room Air 10/24/24 15:49 10/24/24 18:53 Temperature 98.3 F Pulse Rate 79 Respiratory Rate 22 H Blood Pressure 140/63 H Pulse Oximetry 95 92 Oxygen Delivery Method Nasal Cannula Room Air BMI result Body Mass Index 57.9 Const Other: The patient is a morbidly obese and chronically ill-appearing 58-year-old male. He was on nasal oxygen and seemed comfortable. He did not seem in respiratory distress or toxic. HENMT Other: Face is symmetrical. Mucous membranes moist. Eyes Other: Pupils are round equal, conjunctivae are clear, extraocular movements intact Neck Neck: Yes normal visual inspection and Yes full ROM Resp Other: No increased work of breathing. There is some scattered wheezes throughout both lung herrera. No definite crackles. Cardio Other: No murmur heard Rate: regular rate Rhythm: regular rhythm Heart sounds: S1 normal heart sound present and S2 normal heart sound present GI Other: Abdomen is soft and nontender Skin Other: The patient has dependent rubor to the skin of both anterior lower legs. Neuro Other: The patient seemed fatigued but has a normal mental status and seemed appropriately oriented. Cranial nerves are grossly intact. He seems somewhat deconditioned from his obesity but he moves his extremities normally does not seem to have any focal neurological deficits or dede mental status changes. Extrem Other: The patient has very large lower extremities. There is erythema to both anterior shins that I think is more consistent with dependent rubor than cellulitis. Medications Administered Discontinued Medications Generic Name Dose Route Start Last Admin Trade Name Jose PRN Reason Stop Dose Admin Ceftriaxone Sodium 2 gm 10/24/24 19:12 10/24/24 19:32 Ceftriaxone Sodium 2 Gm Vial IVPUSH 10/24/24 19:13 2 gm ONCE ONE Administration Albuterol Sulfate 5 mg/ 0 mg 10/24/24 15:00 10/24/24 15:02 Albuterol/Ipratropium 3 ml INHALE 10/24/24 15:01 1 each ONCE ONE Administration Azithromycin 500 mg/ Sodium 250 mls @ 125 mls/hr 10/24/24 19:12 10/24/24 19:39 Chloride IV 10/24/24 21:11 125 mls/hr ONCE ONE Administration Iohexol 100 ml 10/24/24 18:05 10/24/24 18:10 Iohexol 350 Mg/Ml 100 Ml Infus..Btl IV 10/24/24 18:06 100 ml ONCE ONE Administration Methylprednisolone Sodium Succinate 80 mg 10/24/24 19:12 10/24/24 19:30 Methylprednisolone Sod Succ 125 Mg/2 Ml Vial IVPUSH 10/24/24 19:13 80 mg ONCE ONE Administration Medical Decision Making Medical Decision Making MDM Narrative: The patient is a 58-year-old male who was morbidly obese and has multiple medical problems related to smoking as well as drug abuse. He had a sleep study last night and apparently the review of the sleep study indicated that he was in ?respiratory failure?. The patient was therefore contacted after he had returned home to his penitentiary that he needed to be hospitalized. He arrived here by ambulance. The patient is oxygenation on room air was about 88%. Otherwise the patient did not look obviously acutely ill or toxic. He has a lot of peripheral edema and what I think is dependent rubor of his lower legs. He also has a history of previous DVTs and he is not on anticoagulation. The initial differential was therefore somewhat broad including COPD, pulmonary embolism, and pulmonary edema. He was not really describing significant infectious symptoms and I did not have a very high suspicion for pneumonia or sepsis. The patient's included a chest x-ray that was equivocal with regard to infection, inflammation, or pulmonary edema. A CT scan of the chest suggested a possible consolidation in the right middle lobe indicating a possibly infectious or inflammatory process. At that point blood cultures and antibiotics were started. The patient also had some wheezes and was treated with bronchodilators as well as IV steroids. Given his oxygen requirement he was placed on nasal oxygen with adequate oxygenation and will be admitted to the hospitalist service for further care. Lab Data 10/24/24 16:37 10/24/24 16:37 Labs: Lab Results 10/24/24 10/24/24 10/24/24 Range/Units 16:37 16:42 19:10 WBC 11.6 H (4.8-10.8) X10*3/uL RBC 4.58 L (4.60-5.80) X10*6/uL Hgb 9.2 L (14.0-18.0) g/dl Hct 31.2 L (42.0-52.0) % MCV 68.1 L (80.0-98.0) fL MCH 20.1 L (27.0-33.0) pg MCHC 29.5 L (31.0-36.0) g/dl RDW 18.6 H (11.0-16.0) % Plt Count 224 (160-400) X10*3/uL MPV 10.3 (9.4-12.4) fL Immature Gran % (Auto) 0.4 (0.0-0.4) % Neut % (Auto) 78.5 H (45-73) % Lymph % (Auto) 11.3 L (20-40) % Rowan % (Auto) 8.4 (2-11) % Eos % (Auto) 0.9 (0-4) % Baso % (Auto) 0.5 (0-2) % Lymph # (Auto) 1.3 (1.2-4.9) X10*3/uL Rowan # (Auto) 1.0 (0.1-1.2) X10*3/uL Eos # (Auto) 0.1 (0.0-0.4) X10*3/uL Baso # (Auto) 0.1 (0.0-0.2) X10*3/uL Abs Immat Gran (auto) 0.05 H (0.00-0.03) X10*3/uL Absolute Neuts (auto) 9.1 H (2.0-8.3) x10*3/uL Absolute Nucleated RBC 0.000 (0.0-0.012) X10*3/uL Nucleated RBC % (auto) 0.0 (0.0-0.2) /100WBC D-Dimer High Sensitivty 275 NG/ML VBG pH 7.39 (7.32-7.43) VBG pCO2 66 mmHg VBG pO2 33 mmHg VBG HCO3 40 H (22-26) mmol/L VBG O2 Saturation 44.0 % VBG Base Excess 13.4 mmol/L Sodium 138 (135-145) mmol/L Potassium 4.5 (3.3-5.1) mmol/L Chloride 99 (96-108) mmol/L Carbon Dioxide 33 H (22-29) mmol/L Anion Gap 11 L (12-20) BUN 14 (9-16) mg/dL Creatinine 0.73 (0.5-1.4) mg/dL Estim Creat Clear Calc 168.6 Estimated GFR > 60 Random Glucose 105 (60-115) mg/dL Lactic Acid 1.2 (0.5-2.0) mmol/L Calcium 8.9 (8.4-10.2) mg/dL Magnesium 2.2 (1.6-2.6) mg/dL Total Bilirubin 0.3 (0.0-1.0) mg/dL Direct Bilirubin 0.2 (0.0-0.5) mg/dL AST 33 (5-37) U/L ALT 22 (0-40) U/L Alkaline Phosphatase 95 (39-117) U/L Troponin I High Sens 6.5 (<3.5-35.0) ng/L C-Reactive Protein 0.70 H (< or = 0.50) mg/dL B-Natriuretic Peptide 24 (<100) pg/mL Total Protein 6.9 (6.5-8.0) g/dL Albumin 4.0 (3.5-5.0) g/dL Influenza Type A (PCR) NEGATIVE (Negative) Influenza Type B (PCR) NEGATIVE (Negative) RSV RNA Qual (PCR) NEGATIVE (Negative) SARS-CoV-2 RNA (RT-PCR) NEGATIVE (Negative) Independent Interpretation I performed an independent interpretation of an: EKG Interpretation: EKG at 16:27 shows normal sinus rhythm at 69 beats per minute. No definite acute ischemic changes. Critical Care Time Critical Care Time Critical Care Time: Yes Total Critical Care Time: 35 Attestation: The patient was critically ill with a high probability of imminent or life-threatening deterioration. ?I spent greater than 30 minutes of discontinuous time evaluating the patient, delivering critical care at the bedside, discussing evaluating data with consultants. ?Critical care time does not include time spent performing separately billable procedures or teaching. ?Time spent performing critical care with 35 minutes. Discharge Plan Discharge Clinical Impression: Acute exacerbation of chronic obstructive pulmonary disease Patient Disposition: Admitted As Inpatient
--- NOTE | 2024-10-24 16:16 | ECG_ITS ---
Test Reason : SOB Blood Pressure : */* mmHG Vent. Rate : 69 BPM Atrial Rate : 69 BPM P-R Int : 138 ms QRS Dur : 86 ms QT Int : 386 ms P-R-T Axes : 21 40 32 degrees QTcB Int : 413 ms Normal sinus rhythm with sinus arrhythmia Normal ECG When compared with ECG of 11-May-2024 20:04, No significant change was found Referred By: Kilo Kumar Electronically Signed By: Presley Badillo
[2024-10-24 16:45] LABS: MANUAL DIFF FLAG NO
[2024-10-24 16:46] LABS: Venous Blood Gas Refer to POC result
[2024-10-24 16:46] LABS: VBG HCO3 40 mmol/L (22-26); VBG O2 % Saturation 44.0 %
[2024-10-24 17:00] LABS: D Dimer High Sensitivity 275 NG/ML
[2024-10-24 17:03] LABS: Alanine Aminotransferase 22 U/L (0-40); Albumin Level 4.0 g/dL (3.5-5.0); Alkaline Phosphatase 95 U/L (39-117); Anion Gap 11 (12-20); Aspartate Amino Transferase 33 U/L (5-37); Blood Urea Nitrogen 14 mg/dL (9-16); Calcium 8.9 mg/dL (8.4-10.2); Carbon Dioxide 33 mmol/L (22-29); Chloride 99 mmol/L (96-108); Creatinine Clr Calc Pharmacy 168.6; Estimated Glomerular Filt Rate > 60; Magnesium 2.2 mg/dL (1.6-2.6); Potassium 4.5 mmol/L (3.3-5.1); Sodium 138 mmol/L (135-145); Total Protein 6.9 g/dL (6.5-8.0)
[2024-10-24 17:05] LABS: Hematocrit 31.2 % (42.0-52.0); Hemoglobin 9.2 g/dl (14.0-18.0); Imm Gran Abs Auto 0.05 X10*3/uL (0.00-0.03); Imm Gran Pct Auto 0.4 % (0.0-0.4); Lymphocytes Absolute Auto 1.3 X10*3/uL (1.2-4.9); Mean Corpuscular HGB Conc 29.5 g/dl (31.0-36.0); Mean Corpuscular Hemoglobin 20.1 pg (27.0-33.0); Mean Corpuscular Volume 68.1 fL (80.0-98.0); NRBC Abs Auto 0.000 X10*3/uL (0.0-0.012); NRBC Pct Auto 0.0 /100WBC (0.0-0.2); Platelet Count 224 X10*3/uL (160-400); Red Blood Count 4.58 X10*6/uL (4.60-5.80); White Blood Count 11.6 X10*3/uL (4.8-10.8)
[2024-10-24 17:06] LABS: B Type Natriuretic Peptide 24 pg/mL (<100)
[2024-10-24 17:11] LABS: Troponin-I High Sensitivity 6.5 ng/L (<3.5-35.0)
[2024-10-24 17:21] LABS: Resp Syncy Virus RNA Qual PCR NEGATIVE (Negative); SARS COV2 PCR INHOUSE NEGATIVE (Negative)
[2024-10-24] MEDS: iohexoL 350 MG/ML 100 ML INFUS..BTL IV (18:10)
--- NOTE | 2024-10-24 18:41 | PC.NURSE ---
Patient with 2100 ml urinary output in 2 hours, states did not take lasiks today, aware
[2024-10-24 18:53] VITALS: BP 140/63; PULSE 79; RESP 22; TEMP 36.8; O2SAT 92
--- NOTE | 2024-10-24 20:11 | PC.NURSE ---
58yo male, a&o x4, independent w/ ADL's at baseline, cooperative with care. Pt resides in [facility]. Pt had a [facility] [place] [facility] [place]. On conclusion of his study, the cryptologic technician technical told the patient you are in respiratory failure you need to go to the nearest emergency room . An ambulance was called and he was brought here. On EMS arrival pt was found to have SpO2 of about 88% on room air- he was placed on 1L via nc with improvement to 90-91%. History of morbid obesity, hx of ANA, current smoker, COPD. Pt was placed on 2L via nc with improvement to 93-95%. Labs and imaging was obtained- pt CTA significant for Patchy ground-glass and consolidation along the medial RML and RLL suggestive of an inflammatory or infectious process. Plan is to admit for further eval and tx of PNA.
--- NOTE | 2024-10-24 20:51 | PM.IMHP ---
History of Present Illness Date of Service: 10/24/24 Attending physician on admission: Teresa Salgado Chief Complaint: shortness of breath Pt is a 58 yo male with PMH B hip replacements, colostomy with reversal secondary to tear in colon, gastric bypass, tracheostomy now closed (for ANA when pt weighed 600 pounds), diverticulosis, hemorrhoids, colonoscopy 2019, cervical radiculopathy, COPD, cellulitis of BLEs with suspected PVD, MO, substance use disorder (sober since May [address]), tobacoo dependence, MDD, ANA, GERD, Watkins's Palsy presents to ED after undergoing sleep study last evening and being told by lab at 5 AM that he is in acute respiratory failure and should seek evaluation at closest ED. Pt also presents with B LE cellulitis, chronic that comes and goes and is seeing vascular specialst for the first time October 29. Patient initially hypoxic at 88% on room air and once on oxygen improved 92%. Patient currently on 1 L in satting 92%. CT of the chest negative for PE, with evidence of patchy ground-glass and consolidation along the medial right middle lobe and right lower lobe indicating possible aspiration pneumonitis. In addition CT notes emphysema with smoking-related lung injury. Patient also has cluster of pulmonary nodules measuring up to 6 mm that are new since prior imaging. This could be related to patient's infectious or inflammatory process. Patient should be have repeat imaging in 3-6 months. Also known as a small hiatal hernia. VBG 7.39, 66, 33, 40. Patient was started on ceftriaxone and azithromycin in the emergency department. Blood cultures x2 were also drawn. Patient did not meet criteria for sepsis upon arrival. Lactic acid was normal and patient does not have leukocytosis. Hemodynamics are stable. BNP also within normal limits. Bilateral lower extremities are red in color, hard to the touch with the edema, but no were noted. Patient does have pain with palpation of sole of both feet. There is no obvious draining or weeping. DP and PT pulses are palpable bilaterally. No obvious open wounds. Patient has been sober for the last 5 months. Patient only now smokes 5 cigarettes per day. Patient is deferring need for nicotine replacement. Patient is currently living in a detention house and was homeless prior to that. Patient denies history of diabetes, hypertension. Patient is not having any chest pain currently. Patient denies any abdominal pain, nausea or vomiting. Review of Systems Review of Systems: Patient currently denies any shortness of breath at rest, chest pain, abdominal pain, nausea or vomiting. Patient is reporting chronic neuropathy in both feet with chronic intermittent redness and hardness from edema. Patient is able to ambulate but only for short distances. Patient denies any constipation or diarrhea at this time. Patient is not having any fever or chills as well. Yes all other systems are reviewed and are negative [facility] Medical History Morbid (severe) obesity due to excess calories COPD (chronic obstructive pulmonary disease) Cocaine use disorder MDD (major depressive disorder) Homeless ANA (obstructive sleep apnea) Varicose veins of right lower extremity Peripheral vascular disease GERD (gastroesophageal reflux disease) History of pernicious anemia Hx of acute respiratory failure Edema Back pain Arthritis History of DVT of lower extremity Depression ANA treated with BiPAP Right-sided heart failure Cognitive capacity: Alert and orientated x3 Functional capacity: uses cane/walker Family History Father Displacement of central venous catheter (CVC) Mother Unknown family medical history Surgical History History of incisional hernia repair Hx of esophagogastroduodenoscopy Hx of colonoscopy History of total right knee replacement S/P right knee arthroscopy Hx of tracheostomy Hx of total hip arthroplasty History of colostomy reversal History of colon resection H/O gastric bypass Social History (Updated 10/24/24 @ 21:28 by AMY Bishop) Household Members: None Housing: Homeless ([facility]) Do you presently have visiting nurse or other home services: No Alcohol intake: former Year quit: 2024 Patient Tobacco Use Status: Current everyday Tobacco user Tobacco use type: Cigarette Cigarettes Per Day: 5 Years Smoked: 40 Smoked in Last 30 Days: Yes e-Cigarette/Vaping Use: Former Use Second Hand Smoke Exposure: Yes Use of substances other than those prescribed or required for medical reasons: No Substance Use Type: Crack/Cocaine Advance Directives: No Advance Directives Information Provided: Yes service: No Sexual orientation: Straight/Heterosexual Cognitive needs: No Hearing needs: No Vision needs: Yes (Reading glasses) Ebola Risk: Travel/Contact With Anyone From Affected Area/s: No Has Patient Experienced Ebola Symptoms: No Meds Allergies Allergy/AdvReac Type Severity Reaction Status Date / Time oxycodone AdvReac Unknown GI upset Verified 10/24/24 15:04 Active Medications: Current Medications Acetaminophen (Acetaminophen 325 Mg Tablet) 650 mg PO Q6H PRN PRN Reason: Pain, Mild 1-3,fever,headache Albuterol/Ipratropium (Albuterol/Iprat 2.5/0.5mg 3 Ml Ampul.Neb) 3 ml INHALE Q4H PRN PRN Reason: Shortness of Breath/Wheezing Calcium Carbonate (Calcium Carbonate 750 Mg Tab.Chew) 750 mg PO Q4H PRN PRN Reason: Heartburn Ceftriaxone Sodium (Ceftriaxone Sodium 1 Gm Vial) 1 gm IVPUSH Q24H EARNESTINE Enoxaparin Sodium (Enoxaparin Sodium 40 Mg/0.4 Ml Syringe) 40 mg SUBCUT Q24H EARNESTINE Azithromycin 500 mg/ Sodium (Chloride) 250 mls @ 125 mls/hr IV ONCE ONE Stop: 10/24/24 21:11 Last Admin: 10/24/24 19:39 Dose: 125 mls/hr Azithromycin 500 mg/ Sodium (Chloride) 250 mls @ 125 mls/hr IV Q24H EARNESTINE Magnesium Hydroxide (Milk Of Magnesia 30 Ml Oral.Susp) 30 ml PO DAILY PRN PRN Reason: Constipation Melatonin (Melatonin 3 Mg Tablet) 6 mg PO BEDTIME PRN PRN Reason: Insomnia Methylprednisolone Sodium Succinate (Methylprednisolone Sod Succ 125 Mg/2 Ml Vial) 60 mg IVPUSH Q12H EARNESTINE Ondansetron HCl (Ondansetron Hcl 4 Mg/2 Ml Vial) 4 mg IVPUSH Q8H PRN PRN Reason: Nausea and Vomiting Polyethylene Glycol (Polyethylene Glycol 3350 17 Gm Powd.Pack) 17 gm PO DAILY PRN PRN Reason: Constipation Senna (Sennosides 8.6 Mg Tablet) 17.2 mg PO BEDTIME EARNESTINE Sodium Chloride (0.9 % Sodium Chloride Flush 3 Ml Syringe) 3 ml IVFLUSH QSHIFT [facility] Home Medications ?Medication ?Instructions ?Recorded ?Confirmed ?Last Taken ?Type loxapine succinate 50 mg capsule 100 mg PO BEDTIME 05/12/24 10/07/24 Unknown History trazodone 100 mg tablet 200 mg PO BEDTIME 09/15/24 10/07/24 Unknown History Physical Exam Vital Signs and Narrative: Vital Signs: Last Vital Signs Temp 98.3 F 10/24/24 18:53 Pulse 79 10/24/24 18:53 Resp 22 H 10/24/24 18:53 BP 140/63 H 10/24/24 18:53 Pulse Ox 92 10/24/24 18:53 O2 Del Method Room Air 10/24/24 18:53 BMI result Body Mass Index 57.9 Alert and orientated X3, able to give good history. Neuro: CN II-X11 intact, no deficits, visual acuity intact EYES: PERRLA, EOM intact, sclerae nonicteric, conjunctiva pink ENT: hearing intact, no issues with swallowing, uvula midline, lips moist, nares patent no epistaxis Cardiac: S1 S2 RRR, no murmur, no JVD, moderate edema in Lower ext's Pulmonary: lungs bilateral expiratory wheeze, diminished at the base Abdominal: BS active in all 4 quadrants, no guarding, tenderness, rebounding, healed scar mid abdominal area MSK: strength 5/5 upper and lower extremities : no CVA tenderness no bladder distension Extremities: Moderate edema in lower extremities, bilateral lower extremities have pink to red skin no weeping or drainage noted, skin is hard to the touch. PT and DP pulses palpable +2 Psych: mood stable, judgement and insight good SKin: cellulitis bilateral lower extremities Results Labs 10/24/24 16:37 10/24/24 16:37 Labs: Laboratory Results - last 24 hr 10/24/24 10/24/24 10/24/24 16:37 16:42 19:10 MCV 68.1 L MCH 20.1 L MCHC 29.5 L RDW 18.6 H Plt Count 224 MPV 10.3 Immature Gran % (Auto) 0.4 Neut % (Auto) 78.5 H Lymph % (Auto) 11.3 L [place] % (Auto) 8.4 Eos % (Auto) 0.9 Baso % (Auto) 0.5 Lymph # (Auto) 1.3 [place] # (Auto) 1.0 Eos # (Auto) 0.1 Baso # (Auto) 0.1 Abs Immat Gran (auto) 0.05 H Absolute Neuts (auto) 9.1 H Absolute Nucleated RBC 0.000 Nucleated RBC % (auto) 0.0 D-Dimer High Sensitivty 275 VBG pH 7.39 VBG pCO2 66 VBG pO2 33 VBG HCO3 40 H VBG O2 Saturation 44.0 VBG Base Excess 13.4 Anion Gap 11 L Estim Creat Clear Calc 168.6 Estimated GFR > 60 Random Glucose 105 Lactic Acid 1.2 Calcium 8.9 Magnesium 2.2 Total Bilirubin 0.3 Direct Bilirubin 0.2 AST 33 ALT 22 Alkaline Phosphatase 95 C-Reactive Protein 0.70 H B-Natriuretic Peptide 24 Total Protein 6.9 Albumin 4.0 Influenza Type A (PCR) NEGATIVE Influenza Type B (PCR) NEGATIVE RSV RNA Qual (PCR) NEGATIVE SARS-CoV-2 RNA (RT-PCR) NEGATIVE ECG Attestation: I personally reviewed and interpreted this ECG as follows: (Normal sinus rhythm with sinus arrhythmia QTC 413) Prior ECG tracings: available for review Imaging Radiologist's Impressions: CXR FINDINGS: Low lung volumes. Borderline cardiomegaly. Bronchial wall thickening. No consolidation. No pleural effusion or pneumothorax. No acute fracture. IMPRESSION: 1. Low lung volumes. 2. Bronchial wall thickening. Nonspecific finding can be seen with pulmonary edema or a multifocal infectious or inflammatory process. CTA chest IMPRESSION: 1. No evidence of pulmonary embolism within the main or lobar pulmonary arteries. Motion and contrast bolus timing limits evaluation of the distal pulmonary arteries. 2. Patchy ground-glass and consolidation along the medial right middle lobe and right lower lobe suggestive of an inflammatory or infectious process including aspiration pneumonitis. 3. Emphysema with mild bronchial wall thickening consistent with smoking related lung injury. 4. Cluster of pulmonary nodules within the right lower lobe measuring up to 6 mm, new since prior imaging. This could be related to the underlying infectious or inflammatory process. Recommend short-term follow-up imaging in 3-6 months. 5. Small hiatal hernia. Assessment and Plan (1) Acute exacerbation of chronic obstructive pulmonary disease: Status: Acute Plan Pt is a 58 yo male with PMH B hip replacements, colostomy with reversal secondary to tear in colon, gastric bypass, tracheostomy now closed (for ANA when pt weighed 600 pounds), diverticulosis, hemorrhoids, colonoscopy 2019, cervical radiculopathy, COPD, cellulitis of BLEs with suspected PVD, MO, substance use disorder (sober since May [address]), tobacoo dependence, MDD, ANA, GERD, Watkins's Palsy presents to the emergency room after being told by the sleep study manometer technician that he is in acute respiratory failure after undergoing a sleep study last evening. Patient being admitted for pneumonia, COPD exacerbation, acute hypoxic respiratory failure, bilateral lower leg chronic cellulitis and sleeps apnea. PNA Patient is started on ceftriaxone doxycycline Patient unable to provide sputum stable Possible aspiration, patient did pass bedside swallow, last speech therapy to evaluate Aspiration precaution Incentive spirometry Duo nebs and supportive care Wean oxygen as tolerated Acute exacerbation COPD Duo nebs and budesonide ordered Incentive spirometry Continuous pulse ox Wean O2 as tolerated Methylprednisolone 60 b.i.d. Acute hypoxic respiratory failure Secondary to pneumonia and COPD exacerbation, no evidence of sepsis Titrate oxygen, patient does not currently use oxygen at home Above treatments for pneumonia and acute exacerbation of COPD ANA Sleep study was just completed last evening, we will hold off on ordering CPAP as we do not have access to the results CO2 and VBG is reassuring Continuous CO2 monitoring ordered Bilateral lower extremity cellulitis, chronic in presentation with suspected PVD Bilateral lower extremity Dopplers ordered to rule out DVT or vascular disorder Patient already on ceftriaxone IV, patient has been on doxycycline we will change azithromycin to doxycycline to cover both pneumonia and cellulitis Patient has upcoming appointment with vascular as an outpatient on October 29 Tobacco dependent Patient currently smokes 5 cigarettes per day Patient deferred need for nicotine patch at this time Patient counseled on the benefits of smoking cessation Morbid obesity Nutritional consult ordered as patient is interested in learning more about weight loss with improvement in nutritional intake Patient is status post gastric bypass early 2009 Patient counseled that weight loss would benefit his chronic lung disease Patient has limited mobility due to bilateral lower extremity cellulitis, suspected peripheral vascular disease and neuropathy History of substance use disorder Patient currently sober for the past 5 months now living in a detention house, was homeless prior No indication to do toxicology screen at this time Patient is not on methadone or Suboxone DVT prophylaxis: Lovenox Med rec pending Full Code status Quality Stroke Does the patient have a stroke diagnosis?: No Reason for No Anti-thrombotic by Day Two: N/A - Med Ordered VTE Prior VTE?: No VTE Risk Level:: Medical - moderate - high VTE Device Contraindication: N/A - Device Ordered VTE Drug Contraindication: N/A - Med Ordered
[2024-10-25] VITALS (8 sets, daily range): BP systolic 138–171; BP diastolic 57–76; PULSE 67–80; RESP 17–20; TEMP 35.9–37.1; O2SAT 88–97; BMI 56.4
[2024-10-25] MEDS: 0.9 % Sodium Chloride Flush 3 ML SYRINGE IVFLUSH ×4 (00:11→20:03)
--- NOTE | 2024-10-25 00:29 | PC.NURSE ---
Patient reports 10/10 burning pain in b/l lower legs. Patient mediated with Tylenol 650 mg per patient's request.
[2024-10-25 06:13] LABS: MANUAL DIFF FLAG NO
[2024-10-25 06:33] LABS: Alanine Aminotransferase 17 U/L (0-40); Albumin Level 4.0 g/dL (3.5-5.0); Alkaline Phosphatase 97 U/L (39-117); Anion Gap 10 (12-20); Aspartate Amino Transferase 25 U/L (5-37); Blood Urea Nitrogen 15 mg/dL (9-16); Calcium 8.8 mg/dL (8.4-10.2); Carbon Dioxide 29 mmol/L (22-29); Chloride 104 mmol/L (96-108); Creatinine Clr Calc Pharmacy 170.9; Estimated Glomerular Filt Rate > 60; Potassium 4.4 mmol/L (3.3-5.1); Sodium 139 mmol/L (135-145); Total Protein 6.9 g/dL (6.5-8.0)
[2024-10-25 06:58] LABS: Hematocrit 32.1 % (42.0-52.0); Hemoglobin 9.4 g/dl (14.0-18.0); Imm Gran Abs Auto 0.02 X10*3/uL (0.00-0.03); Imm Gran Pct Auto 0.3 % (0.0-0.4); Lymphocytes Absolute Auto 0.9 X10*3/uL (1.2-4.9); Mean Corpuscular HGB Conc 29.3 g/dl (31.0-36.0); Mean Corpuscular Hemoglobin 19.8 pg (27.0-33.0); Mean Corpuscular Volume 67.7 fL (80.0-98.0); NRBC Abs Auto 0.000 X10*3/uL (0.0-0.012); NRBC Pct Auto 0.0 /100WBC (0.0-0.2); Platelet Count 243 X10*3/uL (160-400); Red Blood Count 4.74 X10*6/uL (4.60-5.80); White Blood Count 7.7 X10*3/uL (4.8-10.8)
--- NOTE | 2024-10-25 09:54 | PHA.MEDREC ---
Addendum entered by Negra Knapp RPh 10/25/24 11:03: REVIEWED BY [facility] Original Note: Pharmacy Consult ? Medication Reconciliation Pharmacy has completed the medication reconciliation. Spoke with patient to confirm medications. He takes ibuprofen prn. He takes pregabalim bid and not tid. He last too his medications Saturday night.
[2024-10-25] MEDS: cloNIDine 0.2 MG PATCH.TDWK TRANSDERMA (10:16)
--- NOTE | 2024-10-25 12:17 | PC.NURSE ---
cloinidine patch removed from left upper arm per
--- NOTE | 2024-10-25 13:51 | P.PNIM_ITS ---
Subjective Subjective Date of Service: 10/25/24 Interval History: pneumonia Review of Systems sob still with minimal excersion no cough Physical Exam 2 Vital Signs: Vital Signs: Last Vital Signs Temp 98.0 F 10/25/24 12:28 Pulse 72 10/25/24 12:28 Resp 20 10/25/24 12:28 BP 160/76 H 10/25/24 12:28 Pulse Ox 95 10/25/24 12:28 O2 Del Method Nasal Cannula 10/25/24 12:28 O2 Flow Rate 2 10/25/24 12:28 BMI result Body Mass Index 56.4 Appearance: Alert.? Oriented X3.?moderate sob cvs: rrr, [id number] . res: air entry simidhed ,b/l exp wheezing abd: no rebound or guarding ,nt, bs present. ext pulses present , no cyanosis. neuro: axo3 , nonfocal. Objective Data Active Medications Acetaminophen (Acetaminophen 325 Mg Tablet) 650 mg PO Q6H PRN PRN Reason: Pain, Mild 1-3,fever,headache Last Admin: 10/25/24 00:15 Dose: 650 mg Documented By: CIERRA Albuterol/Ipratropium (Albuterol/Iprat 2.5/0.5mg 3 Ml Ampul.Neb) 3 ml INHALE Q4H PRN PRN Reason: Shortness of Breath/Wheezing Baclofen (Baclofen 10 Mg Tablet) 10 mg PO BID [facility] Last Admin: 10/25/24 13:08 Dose: 10 mg Documented By: ABENA Budesonide (Budesonide 0.5 Mg/2 Ml Ampul.Neb) 0.5 mg INHALE RBID [facility] Last Admin: 10/25/24 11:10 Dose: Not Given Documented By: NILAY Non-Admin Reason: Entered in Error Calcium Carbonate (Calcium Carbonate 750 Mg Tab.Chew) 750 mg PO Q4H PRN PRN Reason: Heartburn Ceftriaxone Sodium (Ceftriaxone Sodium 1 Gm Vial) 1 gm IVPUSH Q24H [facility] Clonidine HCl (Clonidine Hcl 0.1 Mg Tablet) 0.1 mg PO TID [facility]; Protocol Last Admin: 10/25/24 13:07 Dose: 0.1 mg Documented By: ABENA Duloxetine HCl (Duloxetine Hcl 30 Mg Capsule.Dr) 30 mg PO DAILY [facility] Last Admin: 10/25/24 13:07 Dose: 30 mg Documented By: ABENA Enoxaparin Sodium (Enoxaparin Sodium 40 Mg/0.4 Ml Syringe) 40 mg SUBCUT Q24H [facility] Last Admin: 10/24/24 21:17 Dose: 40 mg Documented By: KALYN Fluticasone Propionate (Fluticasone Propionate Nasal 16 Gm [place]) 1 spray NOSTRIL-B BID [facility] Last Admin: 10/25/24 10:15 Dose: 1 spray Documented By: LAVELL Furosemide (Furosemide 40 Mg Tablet) 40 mg PO DAILY [facility]; Protocol Hydroxyzine HCl (Hydroxyzine Hcl 50 Mg Tablet) 50 mg PO TID PRN PRN Reason: Anxiety Last Admin: 10/25/24 13:07 Dose: 50 mg Documented By: ABENA Doxycycline Hyclate 100 mg/ (Sodium Chloride) 250 mls @ 166.67 mls/hr IV Q12H [facility] Last Infusion: 10/25/24 11:43 Dose: Infused Documented By: KALYN Ketoconazole (Ketoconazole 2 % Shampoo 120 Ml Btl) 1 appl TOPICAL MoWeFr [facility]; Protocol Magnesium Hydroxide (Milk Of Magnesia 30 Ml Oral.Susp) 30 ml PO DAILY PRN PRN Reason: Constipation Melatonin (Melatonin 3 Mg Tablet) 6 mg PO BEDTIME PRN PRN Reason: Insomnia Methylprednisolone Sodium Succinate (Methylprednisolone Sod Succ 125 Mg/2 Ml Vial) 60 mg IVPUSH Q12H [facility] Last Admin: 10/25/24 10:16 Dose: 60 mg Documented By: LAVELL Mirtazapine (Mirtazapine 15 Mg Tablet) 45 mg PO BEDTIME [facility] Naproxen (Naproxen 500 Mg Tablet) 500 mg PO BID [facility] Nystatin/Triamcinolone Acetonide (Nystatin/Triamcinolone Cream 15 Gm Tube) 1 appl TOPICAL BID PRN PRN Reason: Rash Omeprazole (Omeprazole 20 Mg Capsule.Dr) 20 mg PO DAILY@0630 [facility] Ondansetron HCl (Ondansetron Hcl 4 Mg/2 Ml Vial) 4 mg IVPUSH Q8H PRN PRN Reason: Nausea and Vomiting Oxcarbazepine (Oxcarbazepine 150 Mg Tablet) 150 mg PO BID [facility] Last Admin: 10/25/24 13:08 Dose: 150 mg Documented By: ABENA Polyethylene Glycol (Polyethylene Glycol 3350 17 Gm Powd.Pack) 17 gm PO DAILY PRN PRN Reason: Constipation Pregabalin (Pregabalin 75 Mg Capsule) 75 mg PO BID [facility] Last Admin: 10/25/24 13:08 Dose: 75 mg Documented By: ABENA Senna (Sennosides 8.6 Mg Tablet) 17.2 mg PO BEDTIME [facility] Last Admin: 10/24/24 21:16 Dose: 17.2 mg Documented By: KALYN Sodium Chloride (0.9 % Sodium Chloride Flush 3 Ml Syringe) 3 ml IVFLUSH QSHIFT [facility] Last Admin: 10/25/24 10:16 Dose: 3 ml Documented By: GENTREE Trazodone HCl (Trazodone Hcl 100 Mg Tablet) 200 mg PO BEDTIME [facility] Labs 10/25/24 06:00 10/25/24 06:00 Labs: Laboratory Results - last 24 hr 10/24/24 10/24/24 10/24/24 16:37 16:42 19:10 MCV 68.1 L MCH 20.1 L MCHC 29.5 L RDW 18.6 H Plt Count 224 MPV 10.3 Immature Gran % (Auto) 0.4 Neut % (Auto) 78.5 H Lymph % (Auto) 11.3 L Richardson % (Auto) 8.4 Eos % (Auto) 0.9 Baso % (Auto) 0.5 Lymph # (Auto) 1.3 Richardson # (Auto) 1.0 Eos # (Auto) 0.1 Baso # (Auto) 0.1 Abs Immat Gran (auto) 0.05 H Absolute Neuts (auto) 9.1 H Absolute Nucleated RBC 0.000 Nucleated RBC % (auto) 0.0 D-Dimer High Sensitivty 275 VBG pH 7.39 VBG pCO2 66 VBG pO2 33 VBG HCO3 40 H VBG O2 Saturation 44.0 VBG Base Excess 13.4 Anion Gap 11 L Estim Creat Clear Calc 168.6 Estimated GFR > 60 Random Glucose 105 Lactic Acid 1.2 Calcium 8.9 Magnesium 2.2 Total Bilirubin 0.3 Direct Bilirubin 0.2 AST 33 ALT 22 Alkaline Phosphatase 95 C-Reactive Protein 0.70 H B-Natriuretic Peptide 24 Total Protein 6.9 Albumin 4.0 Influenza Type A (PCR) NEGATIVE Influenza Type B (PCR) NEGATIVE RSV RNA Qual (PCR) NEGATIVE SARS-CoV-2 RNA (RT-PCR) NEGATIVE 10/25/24 06:00 MCV 67.7 L MCH 19.8 L MCHC 29.3 L RDW 18.3 H Plt Count 243 MPV 10.5 Immature Gran % (Auto) 0.3 Neut % (Auto) 86.2 H Lymph % (Auto) 11.6 L Richardson % (Auto) 1.6 L Eos % (Auto) 0.0 Baso % (Auto) 0.3 Lymph # (Auto) 0.9 L Richardson # (Auto) 0.1 Eos # (Auto) 0.0 Baso # (Auto) 0.0 Abs Immat Gran (auto) 0.02 Absolute Neuts (auto) 6.7 Absolute Nucleated RBC 0.000 Nucleated RBC % (auto) 0.0 D-Dimer High Sensitivty VBG pH VBG pCO2 VBG pO2 VBG HCO3 VBG O2 Saturation VBG Base Excess Anion Gap 10 L Estim Creat Clear Calc 170.9 Estimated GFR > 60 Random Glucose 140 H Lactic Acid Calcium 8.8 Magnesium Total Bilirubin 0.2 Direct Bilirubin AST 25 ALT 17 Alkaline Phosphatase 97 C-Reactive Protein B-Natriuretic Peptide Total Protein 6.9 Albumin 4.0 Influenza Type A (PCR) Influenza Type B (PCR) RSV RNA Qual (PCR) SARS-CoV-2 RNA (RT-PCR) Assessment and Plan (1) COPD (chronic obstructive pulmonary disease): Status: Acute Plan 58 yo male with PMH B hip replacements, colostomy with reversal secondary to tear in colon, gastric bypass, tracheostomy now closed (for ANA when pt weighed 600 pounds), diverticulosis, hemorrhoids, colonoscopy 2019, cervical radiculopathy, COPD, cellulitis of BLEs with suspected PVD, [place], substance use disorder (sober since May [address]), tobacoo dependence, MDD, ANA, GERD, Watkins's Palsy presents to the emergency room after being told by the sleep study pathology lab technician that he is in acute respiratory failure after undergoing a sleep study last evening. Patient being admitted for pneumonia, COPD exacerbation, acute hypoxic respiratory failure, bilateral lower leg chronic cellulitis and sleeps apnea. Acute hypoxemic respiratory failure secondary to PNA / COPD with acute exacerbation: ?Possible aspiration, Aspiration precaution Incentive spirometry plan: Nebs, steroids, antibiotics wean oxygen. ANA Sleep study was just completed last evening, we will hold off on ordering CPAP as we do not have access to the results CO2 and VBG is reassuring Bilateral lower extremity cellulitis, chronic in presentation with suspected PVD Bilateral lower extremity Dopplers -negative for dvt. upcoming appointment with vascular as an outpatient on October 29 Tobacco dependent Patient currently smokes 5 cigarettes per day Patient deferred need for nicotine patch at this time Patient counseled on the benefits of smoking cessation Morbid obesity Nutritional consult ordered as patient is interested in learning more about weight loss with improvement in nutritional intake post gastric bypass early 2009 Patient counseled that weight loss would benefit his chronic lung disease History of substance use disorder Patient currently sober for the past 5 months now living in a long-term house, was homeless prior No indication to do toxicology screen at this time Patient is not on methadone or Suboxone DVT prophylaxis: Lovenox Full Code status ongoing need : pneumonia /copd -oxygen weaning, nebs, steroids, respiratory status is not optimal yet Quality Stroke Does the patient have a stroke diagnosis?: No Reason for No Anti-thrombotic by Day Two: N/A - Med Ordered VTE Prior VTE?: No VTE Risk Level:: Medical - moderate - high VTE Device Contraindication: N/A - Device Ordered VTE Drug Contraindication: N/A - Med Ordered
--- NOTE | 2024-10-25 16:58 | MHC.CM.PN ---
PT REPORTS HE IS LIVING AT [facility], A [facility] RUN RESIDENTIAL RECOVERY PROGRAM HE SAYS HE IS INDEPENDENT AND USES NO DME AT [facility] HE HAS A CM AT [facility] AND ANOTHER AT [facility] HCP ON FILE PCP: BERTHA ALEMAN IMM DELIVERED DCP: RETURN TO [facility] PT SAYS STAFF WILL TRANSPORT UPDATES MUST BE SUBMITTED TO [facility] ACCESS POINT REGULARLY SO THEY CAN REVIEW/APPROVE PTS RETURN AT [place]. CLINICALS SHOULD BE EMAILED TO [email or web address] OR FAXED TO [phone] ASSIGNED ACCESS POINT PERSON: FRANCISCO NICOLE [phone] (OR COVERING COUNSELOR) INTAKE MANAGER REVENUE: ZOFIA LAZO [phone] LEAD SLED MAKER: CATHERINE SCHAEFER [phone]
[2024-10-25] MEDS: Albuterol/Iprat 2.5/0.5MG 3 ML AMPUL.NEB INHALE (20:15)
[2024-10-26] VITALS (8 sets, daily range): BP systolic 124–164; BP diastolic 53–72; PULSE 58–76; RESP 16–20; TEMP 36.2–36.7; O2SAT 80–96
[2024-10-26] MEDS: 0.9 % Sodium Chloride Flush 3 ML SYRINGE IVFLUSH ×3 (08:15→20:30)
--- NOTE | 2024-10-26 12:54 | MHC.SL.SWA ---
Speech Pathologist Impression: Oropharyngeal phases of swallow WNL Risk of Aspiration Due to: Hx of PNAs Respiratory status Dysphasia Diet Status: Recc diet as ordered (regular consistencies/thins), no further need for SOFTWARE DEVELOPMENT ANALYST at this time. Liquid Consistency and Strategies for Safe Swallow: Liquid Intake Recommendation: Thin Liquid Intake Strategies: Solid Food Consistency: Dietary Recommendations: Regular Additional Modifications to Solid Foods: Oral Medication Intake: Whole with Liquid Please contact the pharmacy regarding appropriate crushable or liquid drug formulations that are available whenever modified delivery is recommended. Compensatory Strategies and Precautions to be Taken for Safe Swallow: Supervision While Eating and Drinking for Safe Swallow: None Needed Foods to Avoid: Swallowing Recommended Treatments: Recommendation for Speech: NA:Typical Evaluation Comment: Pt oromotor functioning WNL. Pt has flat scar at site of prior tracheostomy, no complications with healing and closure. Pt endorsed hx of recurrent PNAs secondary to chronic SA relapse. Pt reported he has been clean for 5 months. Oropharyngeal phases of swallow WNL. No overt s/s of aspiration with regular solids, purees and thins. SOFTWARE DEVELOPMENT ANALYST provided education on physiological function of swallow mechanism, airway closure and respiratory cycle around period of apnea. SOFTWARE DEVELOPMENT ANALYST recc pt pace slowly, take small bites, frequent breaks when eating and maintain upright positioning during PO intake to reduce risk for aspiration. Pt verbalized understanding and agreed with recommendations. RN consulted, MD texted. Frequency/Duration: Date Range for Service Req: Timeline to reassess: Rumper Clinican/Clinical Fellow: No Supervisory Statement: I have reviewed and agree with the student/clinical fellow's documentation: N/A Speech Language Pathologist: Cayla Garcia M.S., [facility]-SOFTWARE DEVELOPMENT ANALYST
--- NOTE | 2024-10-26 13:20 | MHC.CLN ---
NUTRITION CONSULT FOR HEALTHFUL EATING. PROVIDED PATIENT WITH [employer] HEALTHY EATING TIPS. LIVING AT [facility] AND TAKES ALL MEALS/SNACKS THERE. REPORTED THAT WEIGHED 600# PRIOR TO GASTRIC BYPASS SURGERY MANY YEARS AGO. GREATER THAN 100# WEIGHT GAIN IN PAST YEAR WITH SOBRIETY. SOCIAL DETERMINANTS/LIFESTYLE ARE SIGNIFICANT FACTORS IN FOOD CHOICES. RD PROVIDED ACTIVE LISTENING AND OFFERED ADVICE ON HEALTHFUL SNACKING.
--- NOTE | 2024-10-26 13:36 | HO.PM.IMPN ---
Subjective Subjective Date of Service: 10/26/24 Interval History: pneumonia Review of Systems sob still with minimal excersion,no cough Review of Systems: Yes all other systems are reviewed and are negative Physical Exam Vital Signs: Vital Signs: Last Vital Signs Temp 98.1 F 10/26/24 06:48 Pulse 63 10/26/24 08:12 Resp 18 10/26/24 08:12 BP 132/67 10/26/24 08:06 Pulse Ox 90 L 10/26/24 06:48 O2 Del Method Nasal Cannula 10/26/24 06:48 O2 Flow Rate 2 10/26/24 06:48 BMI result Body Mass Index 56.4 Appearance: Alert.? Oriented X3.?moderate sob cvs: rrr, [id number] . res: air entry simidhed ,b/l exp wheezing abd: no rebound or guarding ,nt, bs present. ext pulses present , no cyanosis. neuro: axo3 , nonfocal. Objective Data Active Medications Acetaminophen (Acetaminophen 325 Mg Tablet) 975 mg PO Q6H [facility] Last Admin: 10/26/24 08:11 Dose: 975 mg Documented By: BOBBI Albuterol/Ipratropium (Albuterol/Iprat 2.5/0.5mg 3 Ml Ampul.Neb) 3 ml INHALE Q4H PRN PRN Reason: Shortness of Breath/Wheezing Last Admin: 10/25/24 20:15 Dose: 3 ml Documented By: TAMRA Baclofen (Baclofen 10 Mg Tablet) 10 mg PO BID [facility] Last Admin: 10/26/24 08:12 Dose: 10 mg Documented By: BOBBI Budesonide (Budesonide 0.5 Mg/2 Ml Ampul.Neb) 0.5 mg INHALE RBID [facility] Last Admin: 10/26/24 08:08 Dose: 0.5 mg Documented By: NILAY Calcium Carbonate (Calcium Carbonate 750 Mg Tab.Chew) 750 mg PO Q4H PRN PRN Reason: Heartburn Ceftriaxone Sodium (Ceftriaxone Sodium 1 Gm Vial) 1 gm IVPUSH Q24H [facility] Last Admin: 10/25/24 17:54 Dose: 1 gm Documented By: ABENA Clonidine HCl (Clonidine Hcl 0.1 Mg Tablet) 0.1 mg PO TID [facility]; Protocol Last Admin: 10/26/24 08:12 Dose: 0.1 mg Documented By: BOBBI Duloxetine HCl (Duloxetine Hcl 30 Mg Capsule.Dr) 30 mg PO DAILY [facility] Last Admin: 10/26/24 08:11 Dose: 30 mg Documented By: BOBBI Enoxaparin Sodium (Enoxaparin Sodium 40 Mg/0.4 Ml Syringe) 40 mg SUBCUT Q24H [facility] Last Admin: 10/25/24 20:01 Dose: 40 mg Documented By: GUILLERMINA Fluticasone Propionate (Fluticasone Propionate Nasal 16 Gm Taylor) 1 spray NOSTRIL-B BID [facility] Last Admin: 10/26/24 09:19 Dose: Not Given Documented By: BOBBI Non-Admin Reason: Patient Refused Furosemide (Furosemide 40 Mg Tablet) 40 mg PO DAILY [facility]; Protocol Last Admin: 10/26/24 08:12 Dose: 40 mg Documented By: BOBBI Hydroxyzine HCl (Hydroxyzine Hcl 50 Mg Tablet) 50 mg PO TID PRN PRN Reason: Anxiety Last Admin: 10/26/24 08:48 Dose: 50 mg Documented By: BOBBI Doxycycline Hyclate 100 mg/ (Sodium Chloride) 250 mls @ 166.67 mls/hr IV Q12H [facility] Last Infusion: 10/26/24 11:14 Dose: Infused Documented By: BOBBI Ketoconazole (Ketoconazole 2 % Shampoo 120 Ml Btl) 1 appl TOPICAL MoWeFr [facility]; Protocol Last Admin: 10/26/24 09:19 Dose: Not Given Documented By: BOBBI Non-Admin Reason: Med Not Available Lidocaine (Lidocaine 4 % Patch Adh..Patch) 1 patch TRANSDERMA DAILY [facility]; Protocol Last Admin: 10/26/24 08:15 Dose: Not Given Documented By: BOBBI Non-Admin Reason: Patient Refused Magnesium Hydroxide (Milk Of Magnesia 30 Ml Oral.Susp) 30 ml PO DAILY PRN PRN Reason: Constipation Melatonin (Melatonin 3 Mg Tablet) 6 mg PO BEDTIME PRN PRN Reason: Insomnia Methylprednisolone Sodium Succinate (Methylprednisolone Sod Succ 125 Mg/2 Ml Vial) 60 mg IVPUSH Q12H [facility] Last Admin: 10/26/24 06:11 Dose: 60 mg Documented By: GUILLERMINA Mirtazapine (Mirtazapine 15 Mg Tablet) 45 mg PO BEDTIME [facility] Last Admin: 10/25/24 20:01 Dose: 45 mg Documented By: GUILLERMINA Naproxen (Naproxen 500 Mg Tablet) 500 mg PO BID [facility] Last Admin: 10/26/24 08:11 Dose: 500 mg Documented By: BOBBI Nystatin/Triamcinolone Acetonide (Nystatin/Triamcinolone Cream 15 Gm Tube) 1 appl TOPICAL BID PRN PRN Reason: Rash Omeprazole (Omeprazole 20 Mg Capsule.Dr) 20 mg PO DAILY@0630 [facility] Last Admin: 10/26/24 06:10 Dose: 20 mg Documented By: GUILLERMINA Ondansetron HCl (Ondansetron Hcl 4 Mg/2 Ml Vial) 4 mg IVPUSH Q8H PRN PRN Reason: Nausea and Vomiting Oxcarbazepine (Oxcarbazepine 150 Mg Tablet) 150 mg PO BID [facility] Last Admin: 10/26/24 08:11 Dose: 150 mg Documented By: BOBBI Polyethylene Glycol (Polyethylene Glycol 3350 17 Gm Powd.Pack) 17 gm PO DAILY PRN PRN Reason: Constipation Pregabalin (Pregabalin 75 Mg Capsule) 75 mg PO BID [facility] Last Admin: 10/26/24 08:11 Dose: 75 mg Documented By: BOBBI Senna (Sennosides 8.6 Mg Tablet) 17.2 mg PO BEDTIME [facility] Last Admin: 10/25/24 20:01 Dose: 17.2 mg Documented By: GUILLERMINA Sodium Chloride (0.9 % Sodium Chloride Flush 3 Ml Syringe) 3 ml IVFLUSH QSHIFT [facility] Last Admin: 10/26/24 08:15 Dose: 3 ml Documented By: BOBBI Trazodone HCl (Trazodone Hcl 100 Mg Tablet) 200 mg PO BEDTIME [facility] Last Admin: 10/25/24 20:01 Dose: 200 mg Documented By: GUILLERMINA Labs 10/25/24 06:00 10/25/24 06:00 Microbiology Microbiology Results: Microbiology 10/24/24 19:09 Blood Culture - Final Blood - Venous Coag negative Staphylococcus 10/24/24 19:10 Blood Culture - Preliminary Blood - Venous No growth after 24 hours. Assessment and Plan (1) COPD (chronic obstructive pulmonary disease): Status: Acute Plan 58 yo male with PMH B hip replacements, colostomy with reversal secondary to tear in colon, gastric bypass, tracheostomy now closed (for ANA when pt weighed 600 pounds), diverticulosis, hemorrhoids, colonoscopy 2019, cervical radiculopathy, COPD, cellulitis of BLEs with suspected PVD, [place], substance use disorder (sober since May [address]), tobacoo dependence, MDD, ANA, GERD, Watkins's Palsy presents to the emergency room after being told by the sleep study in flight technician that he is in acute respiratory failure after undergoing a sleep study last evening. Patient being admitted for pneumonia, COPD exacerbation, acute hypoxic respiratory failure, bilateral lower leg chronic cellulitis and sleeps apnea. Acute hypoxemic respiratory failure secondary to PNA / COPD with acute exacerbation: ?Possible aspiration, Aspiration precaution Incentive spirometry plan: Nebs, steroids, antibiotics wean oxygen. ANA Sleep study was just completed last evening, we will hold off on ordering CPAP as we do not have access to the results CO2 and VBG is reassuring Bilateral lower extremity cellulitis, chronic in presentation with suspected PVD Bilateral lower extremity Dopplers -negative for dvt. upcoming appointment with vascular as an outpatient on October 29 says has leg pains -added art dupplex ,vascular eval. Tobacco dependent Patient currently smokes 5 cigarettes per day Patient deferred need for nicotine patch at this time Patient counseled on the benefits of smoking cessation Morbid obesity Nutritional consult ordered as patient is interested in learning more about weight loss with improvement in nutritional intake post gastric bypass early 2009 Patient counseled that weight loss would benefit his chronic lung disease History of substance use disorder Patient currently sober for the past 5 months now [facility], was homeless prior No indication to do toxicology screen at this time Patient is not on methadone or Suboxone DVT prophylaxis: Lovenox Full Code status ongoing need : pneumonia /copd -oxygen weaning, nebs, steroids, respiratory status is not optimal yet Quality Stroke Does the patient have a stroke diagnosis?: No Reason for No Anti-thrombotic by Day Two: N/A - Med Ordered VTE Prior VTE?: No VTE Risk Level:: Medical - moderate - high VTE Device Contraindication: N/A - Device Ordered VTE Drug Contraindication: N/A - Med Ordered
[2024-10-27] VITALS (8 sets, daily range): BP systolic 133–165; BP diastolic 71–74; PULSE 64–74; RESP 16–20; TEMP 36.4–37; O2SAT 84–94
[2024-10-27 06:36] LABS: Hematocrit 34.3 % (42.0-52.0); Hemoglobin 9.8 g/dl (14.0-18.0); Mean Corpuscular HGB Conc 28.6 g/dl (31.0-36.0); Mean Corpuscular Hemoglobin 19.7 pg (27.0-33.0); Mean Corpuscular Volume 69.0 fL (80.0-98.0); NRBC Abs Auto 0.000 X10*3/uL (0.0-0.012); NRBC Pct Auto 0.0 /100WBC (0.0-0.2); Platelet Count 250 X10*3/uL (160-400); Red Blood Count 4.97 X10*6/uL (4.60-5.80); White Blood Count 11.0 X10*3/uL (4.8-10.8)
[2024-10-27 06:44] LABS: Anion Gap 13 (12-20); Blood Urea Nitrogen 21 mg/dL (9-16); Calcium 8.8 mg/dL (8.4-10.2); Carbon Dioxide 32 mmol/L (22-29); Chloride 96 mmol/L (96-108); Creatinine Clr Calc Pharmacy 140.7; Estimated Glomerular Filt Rate > 60; Potassium 4.8 mmol/L (3.3-5.1); Sodium 136 mmol/L (135-145)
[2024-10-27] MEDS: 0.9 % Sodium Chloride Flush 3 ML SYRINGE IVFLUSH ×2 (07:54→15:29)
--- NOTE | 2024-10-27 08:01 | P.CONGS_ITS ---
History of Present Illness Consult details Consult date: 10/27/24 Narrative: Very pleasant 58-year-old gentleman with a history of bilateral hip replacement gastric bypass presented to the emergency room on 10/24 with shortness of breath. He does have a history of substance abuse He was hypoxic with 88% on room air and required oxygen. He was subsequently worked up and treated for his questionable pneumonia and COPD exacerbation. Upon workup was noted to have discomfort and swelling of the lower extremities right more so than left. He does currently smoke a proximally 5 cigarettes a day which is down from a pack and a half which he was smoking prior to this. Review of Systems 2 Review of Systems: Yes all other systems are reviewed and are negative Constitutional: Constitutional: Reports no additional constitutional complaints ENT: Reports Normal hearing present Cardiovascular: Cardiovascular: Denies chest pain, Denies chest pain at rest, Denies chest pain with activity and Denies pedal edema Respiratory: Respiratory: Denies cough Gastrointestinal: Gastrointestinal: Denies abdominal pain Musculoskeletal: Musculoskeletal: Denies abnormal gait, Denies muscle cramps and Denies radiating pain into limb Integumentary/Breasts: Skin/Breast: Denies skin ulcer and Denies wounds Neurologic: Reports Normal hearing present and Denies abnormal gait Psychiatric: Psychiatric: Reports no additional psychiatric complaints PMFSH Past Medical History Medical History Morbid (severe) obesity due to excess calories COPD (chronic obstructive pulmonary disease) Cocaine use disorder MDD (major depressive disorder) Homeless ANA (obstructive sleep apnea) Varicose veins of right lower extremity Peripheral vascular disease GERD (gastroesophageal reflux disease) History of pernicious anemia Hx of acute respiratory failure Edema Back pain Arthritis History of DVT of lower extremity Depression ANA treated with BiPAP Right-sided heart failure Family History Family History Father Displacement of central venous catheter (CVC) Mother Unknown family medical history Surgical History Surgical History History of incisional hernia repair Hx of esophagogastroduodenoscopy Hx of colonoscopy History of total right knee replacement S/P right knee arthroscopy Hx of tracheostomy Hx of total hip arthroplasty History of colostomy reversal History of colon resection H/O gastric bypass Social History Social History Household Members: Other Household Members Other:: half-way house Housing: Other Housing Other:: half-way house Do you presently have visiting nurse or other home services: No Alcohol intake: former Year quit: 2024 Patient Tobacco Use Status: Current everyday Tobacco user Tobacco use type: Cigarette Cigarettes Per Day: 5 Years Smoked: 40 e-Cigarette/Vaping Use: Currently Using Second Hand Smoke Exposure: Yes Substance Use Type: Crack/Cocaine service: No Sexual orientation: Straight/Heterosexual Cognitive needs: No Hearing needs: No Vision needs: Yes (Reading glasses) Travel History Ebola Risk: Travel/Contact With Anyone From Affected Area/s: No Has Patient Experienced Ebola Symptoms: No Meds Allergies Allergy/AdvReac Type Severity Reaction Status Date / Time oxycodone AdvReac Unknown GI upset Verified 10/24/24 15:04 Active Medications: Current Medications Acetaminophen (Acetaminophen 325 Mg Tablet) 975 mg PO Q6H [facility] Last Admin: 10/27/24 07:50 Dose: 975 mg Albuterol/Ipratropium (Albuterol/Iprat 2.5/0.5mg 3 Ml Ampul.Neb) 3 ml INHALE Q4H PRN PRN Reason: Shortness of Breath/Wheezing Last Admin: 10/25/24 20:15 Dose: 3 ml Baclofen (Baclofen 10 Mg Tablet) 10 mg PO BID [facility] Last Admin: 10/27/24 07:51 Dose: 10 mg Budesonide (Budesonide 0.5 Mg/2 Ml Ampul.Neb) 0.5 mg INHALE RBID [facility] Last Admin: 10/27/24 07:45 Dose: 0.5 mg Calcium Carbonate (Calcium Carbonate 750 Mg Tab.Chew) 750 mg PO Q4H PRN PRN Reason: Heartburn Ceftriaxone Sodium (Ceftriaxone Sodium 1 Gm Vial) 1 gm IVPUSH Q24H [facility] Last Admin: 10/26/24 18:16 Dose: 1 gm Clonidine HCl (Clonidine Hcl 0.1 Mg Tablet) 0.1 mg PO TID [facility]; Protocol Last Admin: 10/27/24 07:51 Dose: 0.1 mg Duloxetine HCl (Duloxetine Hcl 30 Mg Capsule.Dr) 30 mg PO DAILY [facility] Last Admin: 10/27/24 07:51 Dose: 30 mg Enoxaparin Sodium (Enoxaparin Sodium 40 Mg/0.4 Ml Syringe) 40 mg SUBCUT Q24H [facility] Last Admin: 10/26/24 20:26 Dose: 40 mg Fluticasone Propionate (Fluticasone Propionate Nasal 16 Gm [place]) 1 spray NOSTRIL-B BID [facility] Last Admin: 10/27/24 07:51 Dose: Not Given Furosemide (Furosemide 40 Mg Tablet) 40 mg PO DAILY [facility]; Protocol Last Admin: 10/27/24 07:51 Dose: 40 mg Hydroxyzine HCl (Hydroxyzine Hcl 50 Mg Tablet) 50 mg PO TID PRN PRN Reason: Anxiety Last Admin: 10/27/24 07:51 Dose: 50 mg Doxycycline Hyclate 100 mg/ (Sodium Chloride) 250 mls @ 166.67 mls/hr IV Q12H [facility] Last Infusion: 10/27/24 00:03 Dose: Infused Ketoconazole (Ketoconazole 2 % Shampoo 120 Ml Btl) 1 appl TOPICAL MoWeFr [facility]; Protocol Last Admin: 10/26/24 09:19 Dose: Not Given Lidocaine (Lidocaine 4 % Patch Adh..Patch) 1 patch TRANSDERMA DAILY [facility]; Protocol Last Admin: 10/27/24 07:51 Dose: Not Given Magnesium Hydroxide (Milk Of Magnesia 30 Ml Oral.Susp) 30 ml PO DAILY PRN PRN Reason: Constipation Melatonin (Melatonin 3 Mg Tablet) 6 mg PO BEDTIME PRN PRN Reason: Insomnia Methylprednisolone Sodium Succinate (Methylprednisolone Sod Succ 125 Mg/2 Ml Vial) 60 mg IVPUSH Q12H [facility] Last Admin: 10/27/24 06:14 Dose: 60 mg Mirtazapine (Mirtazapine 15 Mg Tablet) 45 mg PO BEDTIME [facility] Last Admin: 10/26/24 20:26 Dose: 45 mg Naproxen (Naproxen 500 Mg Tablet) 500 mg PO BID [facility] Last Admin: 10/27/24 07:50 Dose: 500 mg Nystatin/Triamcinolone Acetonide (Nystatin/Triamcinolone Cream 15 Gm Tube) 1 appl TOPICAL BID PRN PRN Reason: Rash Omeprazole (Omeprazole 20 Mg Capsule.Dr) 20 mg PO DAILY@0630 [facility] Last Admin: 10/27/24 06:14 Dose: 20 mg Ondansetron HCl (Ondansetron Hcl 4 Mg/2 Ml Vial) 4 mg IVPUSH Q8H PRN PRN Reason: Nausea and Vomiting Oxcarbazepine (Oxcarbazepine 150 Mg Tablet) 150 mg PO BID [facility] Last Admin: 10/27/24 07:50 Dose: 150 mg Polyethylene Glycol (Polyethylene Glycol 3350 17 Gm Powd.Pack) 17 gm PO DAILY PRN PRN Reason: Constipation Pregabalin (Pregabalin 75 Mg Capsule) 75 mg PO BID [facility] Last Admin: 10/27/24 07:50 Dose: 75 mg Senna (Sennosides 8.6 Mg Tablet) 17.2 mg PO BEDTIME [facility] Last Admin: 10/26/24 20:26 Dose: 17.2 mg Sodium Chloride (0.9 % Sodium Chloride Flush 3 Ml Syringe) 3 ml IVFLUSH QSHIFT [facility] Last Admin: 10/27/24 07:54 Dose: 3 ml Trazodone HCl (Trazodone Hcl 100 Mg Tablet) 200 mg PO BEDTIME [facility] Last Admin: 10/26/24 20:27 Dose: 200 mg Home Medications ?Medication ?Instructions ?Recorded ?Confirmed ?Last Taken ?Type trazodone 100 mg tablet 200 mg PO BEDTIME 09/15/24 0 10/25/24 Unknown History clotrimazole-betamethasone 1 1 appl topical BID PRN Ra sh 10/25/24 10/25/24 Unknown History %-0.05 % topical cream ibuprofen 600 mg tablet 600 mg PO TID PRN Pain 10/2510/25/24 Unknown History meloxicam 15 mg tablet 15 mg PO BEDTIME 10/25/24 Unknown History pregabalin 75 mg capsule (Lyrica) 75 mg PO BID 5 10/25/24 Unknown History Physical Exam 2 Vital Signs: Vital Signs: Last Vital Signs Temp 98.1 F 10/27/24 06:59 Pulse 65 10/27/24 07:47 Resp 17 10/27/24 07:47 BP 140/73 H 10/27/24 06:59 Pulse Ox 93 10/27/24 06:59 O2 Del Method Nasal Cannula 10/27/24 06:59 O2 Flow Rate 2 10/27/24 06:59 BMI result Body Mass Index 56.4 Const: General: cooperative, healthy appearing and comfortable O rientation/consciousness: oriented to person, oriented to place and oriented to time HEENT: Head: Yes normal to inspection Neck: Neck: Yes normal visual inspection Carotids: no bruits Chest: Chest palpation & inspection: normal inspection of the chest Resp: Effort & Inspection: normal respiratory effort and able to speak in complete sentences Auscultation: clear to auscultation bilaterally, no crackles, no rales, no rhonchi and no wheezes Cardio: Other: Bilateral DP signals Rate: regular rate Rhythm: regular rhythm Heart sounds: S1 normal heart sound present and S2 normal heart sound present Bruits: no carotid bruits Peripheral pulses: Peripheral pulses 2+ throughout GI: Inspection: Yes normal to inspection Skin: Wounds: no wounds Hair: normal Neuro: General: oriented to person, oriented to place and oriented to time Cranial nerves: Yes CN's II-XII intact bilaterally and Yes Normal hearing present Cognition (Neuro): normal cognition Motor exam (neuro): 5/5 motor strength present throughout Extrem: Other: venous exam: No significant superficial varicosities or spider telangiectasias, minimal edema General: No clubbing, No cyanosis and No edema Psych: Appearance: grossly normal Mental Status: mental status grossly normal Speech and movement: Normal speech and movement present Results Labs 10/27/24 05:49 10/27/24 05:49 Labs: Abnormal lab results 10/27/24 Range/Units 05:49 WBC 11.0 H (4.8-10.8) X10*3/uL Hgb 9.8 L (14.0-18.0) g/dl Hct 34.3 L (42.0-52.0) % MCV 69.0 L (80.0-98.0) fL MCH 19.7 L (27.0-33.0) pg MCHC 28.6 L (31.0-36.0) g/dl RDW 19.0 H (11.0-16.0) % Carbon Dioxide 32 H (22-29) mmol/L BUN 21 H (9-16) mg/dL Short CBC 10/27/24 Range/Units 05:49 WBC 11.0 H (4.8-10.8) X10*3/uL Hgb 9.8 L (14.0-18.0) g/dl Hct 34.3 L (42.0-52.0) % Plt Count 250 (160-400) X10*3/uL BMP 10/27/24 05:49 Sodium 136 Potassium 4.8 Chloride 96 Carbon Dioxide 32 H BUN 21 H Creatinine 0.86 Calcium 8.8 All other labs normal. Assessment and Plan (1) Varicose veins of right lower extremity with inflammation: Status: Acute Plan At the current time patient appears to have stable lower extremities. Does not appear to be acutely threatened. I do think he is stable from an arterial perspective as I do feel palpable pulses. There is an element of venous insufficiency and he does have some swelling of the lower extremities. This may be the cause of his cellulitis due to the excessive swelling. The venous insufficiency can be worked up and treated as an outpatient. He actually does have an appointment with us this but we will push it out to next week so we can have appropriate follow-up after hospital discharge. Once again no acute intervention required and he can follow up with us as an outpatient. Thank you for allowing us to assist in his care. If there are any questions or concerns please do not hesitate to contact us. Procedures Date of Service Date of Service: 10/27/24
[2024-10-27] MEDS: Albuterol/Iprat 2.5/0.5MG 3 ML AMPUL.NEB INHALE (10:48)
--- NOTE | 2024-10-27 13:34 | MHC.CM.PN ---
pt can not return to [facility] bed on 02 pt agreeable to [facility] dc set for 6 todfay
--- NOTE | 2024-10-27 13:59 | MHC.CM.PN ---
pt will notify sister of dc
--- NOTE | 2024-10-27 14:21 | PM.DS ---
DS: Providers Provider Date of Service: 10/27/24 Date of admission: 10/24/24 19:39 Date of discharge: 10/27/24 Primary care physician: Manuel Foy PA-C Consults: 10/26/24 07:18 Consult to Vascular Surgery Routine Consulting Provider: [facility] Reason for consultation: ? pvd Attending physician on discharge: Clair Amado Discharging clinician: Clair Amado DS: Diagnosis Discharge Diagnosis (1) Varicose veins of right lower extremity with inflammation: Status: Acute DS: Summary Hospital Course Hospital Course: HPI:58 yo male with PMH B hip replacements, colostomy with reversal secondary to tear in colon, gastric bypass, tracheostomy now closed (for ANA when pt weighed 600 pounds), diverticulosis, hemorrhoids, colonoscopy 2019, cervical radiculopathy, COPD, cellulitis of BLEs with suspected PVD, [place], substance use disorder (sober since May [address] house), tobacoo dependence, MDD, ANA, GERD, Watkins's Palsy presents to the emergency room after being told by the sleep study field service technician that he is in acute respiratory failure after undergoing a sleep study last evening. Patient being admitted for pneumonia, COPD exacerbation, acute hypoxic respiratory failure, bilateral lower leg chronic cellulitis and sleeps apnea. hospital course; 58 yo male with PMH B hip replacements, colostomy with reversal secondary to tear in colon, gastric bypass, tracheostomy now closed (for ANA when pt weighed 600 pounds), diverticulosis, hemorrhoids, colonoscopy 2019, cervical radiculopathy, COPD, cellulitis of BLEs with suspected PVD, MO, substance use disorder (sober since May [address]), tobacoo dependence, MDD, ANA, GERD, Watkins's Palsy presents to the emergency room after being told by the sleep study field service technician that he is in acute respiratory failure after undergoing a sleep study last evening. Patient being admitted for pneumonia, COPD exacerbation, acute hypoxic respiratory failure, bilateral lower leg chronic cellulitis and sleeps apnea. Acute hypoxemic respiratory failure secondary to PNA / COPD with acute exacerbation: ?Possible aspiration, Aspiration precaution ct chest -possible aspirational pneumnitis Patient was started on nebs, steroids, antibiotics-patient seems to be improved significantly, shortness of breath improved, patient seems to be near his baseline, we will continue home COPD medications, in addition prednisone taper, also going with the Ceftin and doxycycline antibiotics. Patient currently requires 2 L oxygen continuous. Cta chest incidental findings:Cluster of pulmonary nodules within the right lower lobe measuring up to 6 mm, new since prior imaging. This could be related to the underlying infectious or inflammatory process. Recommend short-term follow-up imaging in 3-6 months. Follow up outpatient with PCP consider outpatient pulmonary evaluation ANA Patient is to follow-up with Dr. Taylor's office for cpap. Bilateral lower extremity cellulitis, chronic skin changes: Bilateral lower extremities-venous duplex negative for DVT, arterial duplex,No significant velocity-altering stenosis. Seen by Dr. Smalls vascular:Varicose veins of right lower extremity with inflammation: Currently patient will complete antibiotic course, and afterwards patient also has appointment out patiently with vascular for further management (on october [address] smalls's office). Tobacco dependent Patient currently smokes 5 cigarettes per day Patient deferred need for nicotine patch at this time Patient counseled on the benefits of smoking cessation Morbid obesity: post gastric bypass early 2009 advsied weight loss . Plan: Please see detailed reports of imaging-in imaging section below. Complete Ceftin 500 mg p.o. b.i.d. as well as doxycycline 100 mg p.o. b.i.d. for 10 days-possible superficial cellulitis.. COPD exacerbation-hypoxia seems to be improved with nebs, steroids, antibiotics-continue home medications for COPD as well as prednisone taper: Prednisone 40 mg q.d. for 3 days, then 30 mg daily for 3 days, then 20 mg for 3 days, and then 10 mg for 3 days. In addition patient was seen by Respiratory: Requires 2 L oxygen continuous, follow up with dr taylor's office for cpap. Bilateral lower extremities-venous duplex negative for DVT, arterial duplex,No significant velocity-altering stenosis. Seen by Dr. Smalls vascular:Varicose veins of right lower extremity with inflammation: Currently patient will complete antibiotic course, and afterwards patient also has appointment out patiently with vascular for further management (on october [address] smalls's office). Above management discussed with the patient detail length he understand in agreement with the above plan, time spent 40 minute, all questions answered. Staff was present during conversation. Time Attestation Total time managing care of this patient today: 40 mintues. Discharge Coordination Time (in mins): 40 min Quality: Safe Use of Opioids Does Pt have an Active Cancer Diagnosis on the Problem List?: No Quality: Stroke Does the patient have a stroke diagnosis?: No Physical Exam Vital Signs: Vital Signs: Last Vital Signs Temp 98 F 10/27/24 11:03 Pulse 74 10/27/24 11:03 Resp 17 10/27/24 11:03 BP 133/74 10/27/24 11:03 Pulse Ox 93 10/27/24 11:03 O2 Del Method Nasal Cannula 10/27/24 11:03 O2 Flow Rate 2 10/27/24 11:03 BMI result Body Mass Index 56.4 Appearance: Alert.? Oriented X3.?moderate sob cvs: rrr, [id number] . res: air entry simidhed ,b/l exp wheezing abd: no rebound or guarding ,nt, bs present. ext pulses present , no cyanosis. Erythema and swelling, ambulating well, has some skin chronic changes neuro: axo3 , nonfocal. DS: Data Data Completed and Pending Labs on day of discharge: Laboratory Results - last 24 hr 10/27/24 05:49 WBC 11.0 H RBC 4.97 Hgb 9.8 L Hct 34.3 L MCV 69.0 L MCH 19.7 L MCHC 28.6 L RDW 19.0 H Plt Count 250 MPV 10.9 Absolute Nucleated RBC 0.000 Nucleated RBC % (auto) 0.0 Sodium 136 Potassium 4.8 Chloride 96 Carbon Dioxide 32 H Anion Gap 13 BUN 21 H Creatinine 0.86 Estim Creat Clear Calc 140.7 Estimated GFR > 60 Random Glucose 108 Calcium 8.8 Preliminary micro results at discharge 10/24/24 19:10 Blood Culture - Preliminary Blood - Venous No growth after 48 hours. Imaging Chest x-ray: My impression: IMPRESSION: 1. Low lung volumes. 2. Bronchial wall thickening. Nonspecific finding can be seen with pulmonary edema or a multifocal infectious or inflammatory process. cta: 1. No evidence of pulmonary embolism within the main or lobar pulmonary arteries. Motion and contrast bolus timing limits evaluation of the distal pulmonary arteries. 2. Patchy ground-glass and consolidation along the medial right middle lobe and right lower lobe suggestive of an inflammatory or infectious process including aspiration pneumonitis. 3. Emphysema with mild bronchial wall thickening consistent with smoking related lung injury. 4. Cluster of pulmonary nodules within the right lower lobe measuring up to 6 mm, new since prior imaging. This could be related to the underlying infectious or inflammatory process. Recommend short-term follow-up imaging in 3-6 months. 5. Small hiatal hernia. Discharge Plan Discharge Anticipated Discharge Date/Time: 10/27/24 14:06 Patient Disposition: er [facility] Discharge Diagnosis: copd excerebation, varicose veins Referrals: [facility] [Other] - 1 Week Manuel Foy PA-C [Primary Care Provider, Internal Medicine] - 1 Week Discharge Medications: New doxycycline monohydrate 100 mg Capsule 100 mg PO Q12H Qty: 1 0RF cefuroxime axetil 500 mg Tablet 500 mg PO Q12H Qty: 1 0RF lidocaine [Lidocaine Pain Relief] 4 % Adhesive Patch,Medicated 1 patch transdermal DAILY Qty: 1 0RF Protocol: Apply to: Apply to: affected area prednisone 20 mg Tablet 40 mg PO DAILY Qty: 1 0RF Continued omeprazole 20 mg capsule,delayed release(DR/EC) 20 mg PO DAILY@0630 90 Days Qty: 90 1RF (DME) POWER SCOOTER See Rx Instructions .Route .MEDSUPPLY Qty: 1 0RF Rx Instructions: As directed duloxetine 30 mg capsule,delayed release(DR/EC) 30 mg PO DAILY 90 Days Qty: 90 1RF ibuprofen 600 mg tablet 600 mg PO TID PRN (Reason: Pain) meloxicam 15 mg tablet 15 mg PO BEDTIME clotrimazole-betamethasone 1-0.05 % cream 1 appl topical BID PRN (Reason: Rash) pregabalin [Lyrica] 75 mg capsule 75 mg PO BID baclofen 10 mg tablet 10 mg PO BID 30 Days Qty: 60 3RF trazodone 100 mg tablet 200 mg PO BEDTIME furosemide 40 mg tablet 40 mg PO DAILY 30 Days Qty: 30 3RF ketoconazole 2 % shampoo 1 appl topical 3XW 28 Days Qty: 120 0RF clonidine HCl 0.1 mg tablet 0.1 mg PO TID 90 Days Qty: 270 1RF hydroxyzine pamoate 50 mg capsule 50 mg PO TID PRN (Reason: anxiety) 90 Days Qty: 270 1RF mirtazapine 45 mg tablet 45 mg PO BEDTIME 90 Days Qty: 90 1RF oxcarbazepine 150 mg tablet 150 mg PO BID 90 Days Qty: 180 1RF albuterol sulfate [Ventolin HFA] 90 mcg/actuation HFA aerosol inhaler 2 puff inhalation RQ4H PRN (Reason: Shortness Of Breath/Wheezing) 30 Days Qty: 8.5 3RF Anoro Ellipta 62.5-25 mcg/actuation blister with device 1 ea inhalation DAILY 30 Days Qty: 60 3RF Discharge Orders: Discharge Order (Routine); Ordered 10/27/24 Ordered By: Clair Amado Diet: Advance to usual diet Activity on Discharge: As tolerated Stand Alone Forms: Patient Portal Discharge page Print Language: [place] Care Plan Goals: Complete Ceftin 500 mg p.o. b.i.d. as well as doxycycline 100 mg p.o. b.i.d. for 10 days-possible superficial cellulitis.. COPD exacerbation-hypoxia seems to be improved with nebs, steroids, antibiotics-continue home medications for COPD as well as prednisone 40 mg q.d. for 4 days. In addition patient was seen by Respiratory: Requires 2 L oxygen continuous, follow up with dr taylor's office for cpap. Bilateral lower extremities-venous duplex negative for DVT, arterial duplex,No significant velocity-altering stenosis. Seen by Dr. Smalls vascular:Varicose veins of right lower extremity with inflammation: Currently patient will complete antibiotic course, and afterwards patient also has appointment out patiently with vascular for further management (on october [address] smalls's office).. Health Concerns: As above. Plan of Treatment: As above. Assessment: As above.
== END 2024-10-27 18:34 | disposition skilled nursing facility (03) | DRG 190 ==
LOC: HO.ED 19:42 → HO.EDOVER 19:58 → HO.S3 10-25 10:27
PROVIDERS: Nurse Practitioner Family; Admitting Provider Student in an Organized Health Care Education/Training Program; Emergency Provider Emergency Medicine; PCP Physician Assistant; Visit Provider Internal Medicine
DX: J44.1 Chronic obstructive pulmonary disease with (acute) exacerbation (principal); J69.0 Pneumonitis due to inhalation of food and vomit; J96.01 Acute respiratory failure with hypoxia; Z68.43 Body mass index [BMI] 50.0-59.9, adult; L03.116 Cellulitis of left lower limb; L03.115 Cellulitis of right lower limb; F17.210 Nicotine dependence, cigarettes, uncomplicated; Z71.6 Tobacco abuse counseling; Z98.84 Bariatric surgery status; E66.01 Morbid (severe) obesity due to excess calories; Z71.3 Dietary counseling and surveillance; G47.33 Obstructive sleep apnea (adult) (pediatric); F19.91 Other psychoactive substance use, unspecified, in remission; Z20.822 Contact with and (suspected) exposure to COVID-19; Z79.899 Other long term (current) drug therapy; I87.2 Venous insufficiency (chronic) (peripheral)
CPT/HCPCS: 36415; 71046; 71275; 80048; 80053; 80076; 82803; 83605; 83735; 83880; 84484; 85025; 85027; 85379; 86140; 87040; 87147; 87205; 87637; 92610; 93005; 93925; 93970; 94640; 99285; J0456; J0696; J1271; J1650; J2919; Q9967

== ENCOUNTER → 2024-10-24 16:16 | Outpatient (BNV) | payer MEDICARE, MEDICAID, SELFPAY | PROVIDERS: Admitting Provider Student in an Organized Health Care Education/Training Program; Emergency Provider Emergency Medicine; PCP Physician Assistant; Visit Provider Internal Medicine Cardiovascular Disease | DX: R06.02 Shortness of breath (principal) | CPT/HCPCS: 93010 ==

== ENCOUNTER → 2024-10-24 16:19 | Outpatient (BNV) | payer MEDICARE, MEDICAID, SELFPAY | PROVIDERS: Emergency Provider Emergency Medicine; PCP Physician Assistant; Visit Provider Radiology Diagnostic Radiology | DX: J43.9 Emphysema, unspecified (principal); R91.8 Other nonspecific abnormal finding of lung field; K44.9 Diaphragmatic hernia without obstruction or gangrene; J98.09 Other diseases of bronchus, not elsewhere classified | CPT/HCPCS: 71046; 71275 ==

== ENCOUNTER 2024-10-24 19:39 | Outpatient (BNV) | payer MEDICARE, MEDICAID, SELFPAY | END 2024-10-25 07:52 | PROVIDERS: Admitting Provider Student in an Organized Health Care Education/Training Program; Emergency Provider Emergency Medicine; PCP Physician Assistant; Visit Provider Radiology Diagnostic Radiology | DX: R22.43 Localized swelling, mass and lump, lower limb, bilateral (principal); M71.21 Synovial cyst of popliteal space [Baker], right knee | CPT/HCPCS: 93970 ==

== ENCOUNTER 2024-10-24 19:39 | Outpatient (BNV) | payer MEDICARE, MEDICAID, SELFPAY | END 2024-10-26 16:58 | PROVIDERS: Admitting Provider Student in an Organized Health Care Education/Training Program; Emergency Provider Emergency Medicine; PCP Physician Assistant; Visit Provider Radiology Diagnostic Radiology | DX: I73.9 Peripheral vascular disease, unspecified (principal) | CPT/HCPCS: 93925 ==

== ENCOUNTER → 2024-10-24 19:39 | Outpatient (BNV) | payer MEDICARE, MEDICAID, SELFPAY | PROVIDERS: Admitting Provider Student in an Organized Health Care Education/Training Program; Emergency Provider Emergency Medicine; PCP Physician Assistant; Visit Provider Surgery Vascular Surgery | DX: I83.11 Varicose veins of right lower extremity with inflammation (principal) | CPT/HCPCS: 99222 ==

== ENCOUNTER → 2024-10-24 19:39 | Outpatient (BNV) | payer MEDICARE, MEDICAID, SELFPAY | PROVIDERS: Admitting Provider Student in an Organized Health Care Education/Training Program; Emergency Provider Emergency Medicine; PCP Physician Assistant; Visit Provider Nurse Practitioner Family | DX: J42 Unspecified chronic bronchitis (principal) | CPT/HCPCS: 99223; 99231 ==

== ENCOUNTER 2024-10-30 10:04 | Outpatient (REF) | payer MEDICARE, MEDICAID, SELFPAY ==
--- OUTSIDE RECORDS SUMMARY | 2024-10-30 10:24 | XMS_ITS | Encounter Summary ---
Author Organization [facility] Address [address] [place] [address] [place] [phone] Phone Care Team Providers Care Parts Sales Manager Name Role Phone Manuel Foy Primary Care Provider + Encounter Details Date Type Department Care Team (Late st Contact Info) Description 02/23/2024 Procedure Pass [facility] [address] [place] [address] Social History Tobacco Use Types Packs/Day Years Used Date Smoking Tobacco: Never Assessed Education Answer Date Recorded Are you interested in more education? Not on anupama e 01/25/2024 Are you concerned about learning? Not on file 01/25/2024 No 01/25/2024 No 01/25/2024 Digital Access Answer Date Recorded No 01/25/2024 No 01/25/2024 Reliable internet access at home? Not on file 01/25/2024 Device with a working camera? Not on file Intimate Partner Violence Answer Date R ecorded Are you denied basic needs s uch as food, clothing, or medical care? No 02/27/2024 In the past 12 months have y ou been in a relationship with a person who hurts, threatens, or tries to control you? No 02/27/2024 Are you denied basic needs s uch as food, clothing, or medical care? No 02/27/2024 In the past 12 months have y ou been in a relationship with a person who hurts, threatens, or tries to control you? No 02/27/2024 Sex and Gender Information Value Date Recorded Sex Assigned at Male 01/25/2024 6:27 PM EDT Legal Sex Male 7:29 PM EST Gender Identity Male 01/25/2024 6:27 PM EDT Sexual Orientation Straight 01/25/2024 6: 27 PM EDT documented as of this encounter Functional Status * Calculated C-SSRS Risk Score (Lifetime/Recent) Answer Date of Assessment Author High Risk 02/23/2024 1:31 PM Maria G Oconnell RN * [place] Suicide Severity Rating Scale (Screener/Recent Self-Report) Question Answer Date of Assessment Author 1. Wish to be (Past 1 Month) No 024 1:31 PM Maria G Oconnell RN 2. Non-Specific Active Suici dia Thoughts (Past 1 Month) No 02/23/2024 1:31 PM Mod[place] Oconnell RN 6. Suicidal Behavior (Lifetime) Yes 4 1:31 PM Maria G Oconnell RN 6. Suicidal Behavior (3 Months) Yes 4 1:31 PM Maria G Oconnell RN documented as of this encounter Plan of Treatment Not on file documented as of this encounter Visit Diagnoses Not on filedocumented in this encounter Additional Health Concerns Infection Onset Date Last Indicated Resolved Time CoV-Risk Comment:Per note documentation 02/23/2024 02/28/2024 7:53 AM EST Rhino/Entero 02/27/2024 02/27/2024 03/12/2024 1:21 AM EST MDR-GN 03/01/2024 03/01/2024 documented as of this encounter Care Teams Parts Sales Manager Relationship Specialty Start Date End Date Manuel Foy PA [facility] [place] [address] PCP - General Physician Chair Maker 02/23/24 documented as of this encounter Additional Source Comments The information contained in this document represents components of the legal health record. It is not the complete legal health record.[facility]
--- OUTSIDE RECORDS SUMMARY | 2024-10-30 10:24 | XMS_ITS | Encounter Summary ---
Author Organization [facility] Address [address] [place] [address] Care Team Providers Care Mental Health Counselor Name Role Phone Paulo Schwarz Primary Care Provider [phone] Encounter Details Date Type Department Care Team (Late st Contact Info) Description 04/22/[address] [facility] Pre-Admission Testing [address] [place] [address] Lexie Rust NP Social History Tobacco Use [...] of this encounter Procedures * Due to [place] state law, this organization might not be [...] in this encounter Results * Due to [place] state law, this organization might not be sharing negative HIV tests. * MRSA CULTURE SCREEN, NASAL ONLY (04/22/2017 12:22 PM EST) Methicillin Resistant Staphylococcus Aureus Screen SEE NOTE [facility] Comment: MRSA CULTURE SCREEN MICRO NUMBER: [id number] TEST STATUS: FINAL SPECIMEN SOURCE: NOT GIVEN SPECIMEN QUALITY: ADEQUATE RESULT: No methicillin resistant Staphylococcus aureus (MRSA) isolated. 04/22/2017 12:2 2 PM EST 04/22/2017 5:52 PM EST Narrative Resulting Agency Comment [id number] Lexie Rust SNOWBOARDING INSTRUCTOR LABORATORY Final Result Performing Organization Address City/State/[facility] Co de Phone Number [facility] [address] [place] [address] * EKG-TO BE READ AND BILLED BY [...] R TG Final Result Performing Organization Address [facility] Co de Phone Number [facility] * CULTURE, URINE, ROUTINE (04/22/2017 9:54 AM EST) Bacteria culture (Urine) SEE NOTE [facility] Comment: CULTURE, URINE, ROUTINE MICRO NUMBER: [id number] TEST STATUS: FINAL SPECIMEN SOURCE: NOT GIVEN SPECIMEN QUALITY: ADEQUATE RESULT: Single organism less than 10,000 CFU/mL isolated. These organisms, commonly found on external and internal genitalia, are considered colonizers. No further testing performed. 04/22/2017 9:54 AM EST 04/22/2017 2:49 PM EST Narrative Resulting Agency Comment [id number] us Lexie Rust NP LABORATORY Final Result Performing Organization Address [facility] de Phone Number [facility] [address] [place] [address] * PROTHROMBIN TIME (PT) (INR), BLOOD (04/22/2017 9:54 AM EST) INR 1.0 [facility] Comment: Reference Range 0.9-1.1 Moderate-intensity Warfarin Therapy 2.0-3.0 Higher-intensity Warfarin Therapy 3.0-4.0 PT 10.3 9.0 - 11.5 sec [facility] Comment: For more information on this test, go to: http://education.[employer] [facility]/faq/TDD725 04/22/2017 9:54 AM EST 04/22/2017 2:49 PM EST Narrative Resulting Agency Comment [id number] us Lexie Rust NP LAB SAME DAY RESULT Final Re sult Performing Organization Address [facility] Co de Phone Number [facility] [address] [place] [address] * (ABNORMAL) CBC INCLUDES DIFFERENTIAL AND PLATELET [...] 2:49 PM EST Narrative Resulting Agency Comment [id number] Lexie Rust SNOWBOARDING INSTRUCTOR LAB SAME DAY RESULT Final Re sult Performing Organization Address City/State/[facility] Co de Phone Number [facility] [address] [place] [address] * (ABNORMAL) BASIC METABOLIC PANEL WITH (GFR) (04/22/2017 9:54 AM EST) Glucose 79 65 - 99 mg/dL [facility] Comment:Fasting reference in terval Urea Nitrogen Blood (BUN) 6(L) 7 - 25 mg/dL [facility] Creatinine 0.88 0.70 - 1.33 mg/dL [facility] Comment: For patients >49 years of age, the reference limit for Creatinine is approximately 13% higher for people identified as -C[place]. GFR 100 > OR = 60 mL/min/1. [...] needs for GFR calculation. Resulting Agency Comment [id number] us Lexie Rust NP LABORATORY Final Result Performing Organization Address City/State/[facility] Co de Phone Number [facility] [address] [place] [address] documented in this encounter Visit Diagnoses Diagnosis Pre-operative examination Preoperative examination, unspecified Primary osteoarthritis of right knee Primary localized osteoarthrosis, lower leg Sleep apnea, unspecified type Increased frequency of urination Urinary frequency documented in this encounter Care Teams Mental Health Counselor Relationship Specialty Start Date End Date Paulo Schwarz [address] [place] [address] [place] [address] PCP - General 01/07/08 documented as of this encounter
--- OUTSIDE RECORDS SUMMARY | 2024-10-30 10:25 | XMS_ITS | Clinical Summary ---
Author Organization [facility] Address [address] [place] [address] Care Team Providers Care Marketing Operations Consultant Name Role Phone Patient, Has No Pcp [...] AM EST): Patient with COPD presenting from [facility] for hypoxia after he was found [...] a PCP but does not have a cadd technician, may benefit from outpatient referral to decrease incidence of hospitalization. On discharge: -prednisone 40mg daily through 05/26 -Ambulatory pulmonology referral placed Assessment & Plan (05/24/2024 10:55 AM EST): Patient with COPD presenting from [facility] for hypoxia after he was found [...] a PCP but does not have a cadd technician, may benefit from outpatient referral to decrease incidence of hospitalization. -prednisone 40mg daily x 5 days (D1: 27) -duonebs q4hr PRN -albuterol 2.5mg neb q4hr prn -maintain SpO2 88-92% -Ambulatory pulmonology referral on discharge Assessment & Plan (05/23/2024 3:55 PM EST): Patient with COPD presenting from [facility] for hypoxia after he was found [...] a PCP but does not have a cadd technician, may benefit from outpatient referral to decrease incidence of hospitalization. -prednisone 40mg daily x 5 days (D1: 05/22) -duonebs q4hr scheduled -albuterol 2.5mg neb q4hr prn -maintain SpO2 88-92% -may benefit from pulm outpatient Assessment & Plan (05/22/2024 1:21 PM EST): Patient with COPD presenting from [facility] for hypoxia after he was found [...] a PCP but does not have a cadd technician, may benefit from outpatient referral to decrease [...] 100 mg p.o. nightly Patient discharged to [facility] program, they will be assisting him with transitional housing. Discussed with patient that he will need a primary care doctor and he states [facility] program has been helping him [...] several hospital admissions for withdrawal, presented from [facility] of acute hypoxic respiratory failure 2/2 [...] several hospital admissions for withdrawal, presented from [facility] of acute hypoxic respiratory failure 2/2 [...] several hospital admissions for withdrawal, presented from [facility] of acute hypoxic respiratory failure 2/2 COPDe. He has been on a 2 day detox from cocaine and alcohol. Reports last use was 05/20. Was given 10 mg of Valium by [facility] due to withdrawal symptoms and CIWA 10. -CIWA with rescue valium -continue home clonidine 0.1mg 3 times a day prn -thiamine, folic acid, Mag Assessment & Plan (05/22/2024 1:21 PM EST): History of cocaine and OUD with several hospital admissions for withdrawal, presented from [facility] of acute hypoxic respiratory failure 2/2 COPDe. He has been on a 2 day detox from cocaine and alcohol. Reports last use was 05/20. Was given 10 mg of Valium by [facility] due to withdrawal symptoms and CIWA 10. -CIWA with rescue valium -continue home clonidine 0.1mg 3 times a day prn -thiamine, folic acid, Mag Assessment & Plan (05/05/2024 11:43 AM EST): History of cocaine and OUD with several hospital admissions for withrawal, presented from [facility] ([facility]) in the setting of COVID. Was on a chlordiazepoxide at rehab, but last alcohol intake > 1 week [employer] to transfer here -continue home clonidine 0.1mg 3 times a day -continue home baclofen 10mg 3 times a day -nicotine patch as needed -thiamine and MV daily Assessment & Plan (05/04/2024 1:43 PM EST): History of cocaine and OUD with several hospital admissions for withrawal, presented from [facility] (Section 21) in the setting of COVID. Was on a chlordiazepoxide at rehab, but last alcohol intake > 1 week [employer] to transfer here -continue home clonidine 0.1mg 3 times a day -continue home baclofen 10mg 3 times a day -nicotine patch as needed -thiamine and MV daily Assessment & Plan (05/03/2024 12:11 PM EST): History of cocaine and OUD with several hospital admissions for withrawal, presented from [facility] (Section 21) in the setting of COVID. Was on a chlordiazepoxide at rehab, but last alcohol intake > 1 week [employer] to transfer here -continue home clonidine 0.1mg 3 times a day -continue home baclofen 10mg 3 times a day -CIWA without meds, add if needed -nicotine patch as needed -thiamine and MV daily Assessment & Plan (05/02/2024 10:18 AM EST): History of cocaine and OUD with several hospital admissions for withrawal, presented from [facility] (Section 21) in the setting of COVID. Was on a chlordiazepoxide at rehab, but last alcohol intake > 1 week [employer] to transfer here -continue home clonidine 0.1mg 3 times a day -continue home baclofen 10mg 3 times a day -CIWA without meds, add if needed -nicotine patch as needed -thiamine and MV daily Assessment & Plan (05/01/2024 1:12 PM EST): History of cocaine and OUD with several hospital admissions for lisa, presented from [facility] (Section 21) in the setting of COVID. Was on a chlordiazepoxide at rehab, but last alcohol intake > 1 week [employer] to transfer here -continue home clonidine 0.1mg [...] on several psychotropic medications. [facility]red [facility] under [facility]. Was evaluated by [...] psychotropic medications. Transferred to the hospital from [facility] under Section 21. Was evaluated by [...] psychotropic medications. Transferred to the hospital from [facility] under Section 21. I am unclear [...] psychotropic medications. Transferred to the hospital from [facility] under Section 21. I am unclear [...] psychotropic medications. Transferred to the hospital from [facility] under Section 21. I am unclear at this time if he is also under Section 12 (hospitalized for 02/2024). Will need to clarify with psychiatry CL here - HOLD loxapine 100 mg [not noted in [facility] MAR] - [facility] 10 mg daily [[facility] - Hydroxyzine 25 mg every 8 hours as needed - Pregabalin 75 mg three times a day - Formal psych evaluation requested to help clarify Section and medications Assessment & Plan (04/24/2024 11:29 AM EST): No home meds, although patient has Clonidine as prescribed in the past for anxiety PRN. [place] [facility] [place] ACRHF in Feb 2024. -Clonidine 0.1 mg 3 times a day PRN Assessment & Plan (04/23/2024 9:51 AM EST): No home meds, although patient has Clonidine as prescribed in the past for anxiety PRN. Was hospitalized at [facility] [place] ide[place] & ACRHF in Feb 2024. -Clonidine 0.1 mg 3 times a day PRN Assessment & Plan (04/22/2024 9:22 AM EST): No home meds, although patient has Clonidine as prescribed in the past for anxiety PRN. Was hospitalized at [facility] [place] ide[place] & ACRHF in Feb 2024. -Clonidine 0.1 mg 3 times a day PRN Assessment & Plan (04/21/2024 9:58 AM EST): No home meds, although patient has Clonidine as prescribed in the past for anxiety PRN. Was hospitalized at [facility] [place] ide[place] & ACRHF in Feb 2024. -Clonidine 0.1 mg 3 times a day PRN Assessment & Plan (04/20/2024 11:03 AM EST): No home meds, although patient has Clonidine as prescribed in the past for anxiety PRN. Was hospitalized [place] [facility] [place] ide[place] & ACRHF in Feb 2024. -Clonidine 0.1 mg 3 times a day PRN Assessment & Plan (04/19/2024 12:45 PM EST): No home meds, although patient has Clonidine as prescribed in the past for anxiety PRN. Was hospitalized [place] [facility] [place] ide[place] & ACRHF in Feb [...] to re-establish care with PCP. He said [facility] program is helping him with [...] (05/22/2024 1:21 PM EST): Patient presenting from [facility] with acute hypoxia, placed on 4L. [...] 11:29 AM EST): Patient was brought from [facility] due to developing altered mental status (lethargy) after x1 valium for alcohol withdrawal. Immediately became hypoxic with aspiration episode and briefly needed supplemental oxygen, then was sent to [facility] for evaluation. Patient's mental status was back to baseline on 1/4 PM. Last drink was 04/16/24 prior to admission to [facility] on same day. CT head neg. -CIWA protocol with Ativan, discontinued as pt non-scoring -Folic acid & thiamine PO daily -Seizure precautions -SW consulted for AUD. Assessment & Plan (04/23/2024 9:51 AM EST): Patient was brought from [facility] due to developing altered mental status (lethargy) after x1 valium for alcohol withdrawal. Immediately became hypoxic with aspiration episode and briefly needed supplemental oxygen, then was sent to [facility] for evaluation. Patient's mental status was back to baseline on 1/4 PM. Last drink was 04/16/24 prior to admission to [facility] on same day. CT head neg. -CIWA protocol with Ativan, discontinued as pt non-scoring -Folic acid & thiamine PO daily -Seizure precautions -SW consulted for AUD. Assessment & Plan (04/22/2024 9:22 AM EST): Patient was brought from [facility] due to developing altered mental status (lethargy) after x1 valium for alcohol withdrawal. Immediately became hypoxic with aspiration episode and briefly needed supplemental oxygen, then was sent to [facility] for evaluation. Patient's mental status was back to baseline on 1/4 PM. Last drink was 04/16/24 prior to admission to [facility] on same day. CT head neg. -CIWA protocol with Ativan, discontinued as pt non-scoring -Folic acid & thiamine PO daily -Seizure precautions -SW consulted for AUD. Assessment & Plan (04/21/2024 9:58 AM EST): Patient was brought from [facility] due to developing altered mental status (lethargy) after x1 valium for alcohol withdrawal. Immediately became hypoxic with aspiration episode and briefly needed supplemental oxygen, then was sent to [facility] for evaluation. Patient's mental status was back to baseline on 1/4 PM. Last drink was 04/16/24 prior to admission to [facility] on same day. CT head neg. -CIWA protocol with Ativan, discontinued as pt non-scoring -Folic acid & thiamine PO daily -Seizure precautions -SW consulted for AUD. Assessment & Plan (04/20/2024 11:03 AM EST): Patient was brought from [facility] due to developing altered mental status (lethargy) after x1 valium for alcohol withdrawal. Immediately became hypoxic with aspiration episode and briefly needed supplemental oxygen, then was sent to [facility] for evaluation. Patient's mental status was back to baseline on 1/4 PM. Last drink was 04/16/24 prior to admission to [facility] on same day. CT head neg. -CIWA protocol with Ativan -Folic acid & thiamine PO daily -Seizure precautions -SW consulted for AUD. Assessment & Plan (04/19/2024 12:45 PM EST): Patient was brought from [facility] due to developing altered mental status (lethargy) after x1 valium for alcohol withdrawal. Immediately became hypoxic with aspiration episode and briefly needed supplemental oxygen, then was sent to [facility] for evaluation. Patient's mental status was back to baseline on 04/18 PM. Last drink was 04/16/24 prior to admission to [facility] on same day. CT head neg. -[facility] protocol with Ativan -Folic acid & thiamine PO daily -Seizure precautions - consulted for alcoholism. Assessment & Plan (04/18/2024 9:52 PM EST): 58 years old male, chronic alcohol abuse and GERD, transferred from [facility]. Patient has been admitted for alcohol detoxification, patient received Valium and post therapy developed respiratory distress, developed hypoxia and transferred to [facility] via EMS Plan: 1-[facility] protocol 2- replacement of multivitamins Aspiration [...] Flagyl, Rocephin. Patient was recently admitted [place] [facility] [place] and Suicidal ideations. -04/20/24 CT [...] Flagyl, Rocephin. Patient was recently admitted at [facility] [place] and Suicidal ideations. -04/20/24 CT [...] Flagyl, Rocephin. Patient was recently admitted at [facility] [place] and Suicidal ideations. -04/20/24 CT [...] Flagyl, Rocephin. Patient was recently admitted at [facility] [place] and Suicidal ideations. -04/20/24 CT [...] Flagyl, Rocephin. Patient was recently admitted at [facility] [place]HR[place] and Suicidal ideations. -MRSA PCR [...] Flagyl, Rocephin. Patient was recently admitted at [facility] [place]HR[place] and Suicidal ideations. -MRSA PCR [...] drink = 0.6 oz pur e alcohol) [facility] Utilities Answer Date Recorded In the past 12 months has th e [employer], gas, oil, or water company threatened to [...] Screening Completed 06/05/2024 Procedures * Due to [place] [employer] law, this organization might not be sharing [...] to Health Maintenance Results * Due to [place] [employer] law, this organization might not be sharing negative HIV tests. * Hepatitis C Antibody w/Reflex to HCV RNA, Quantitative PCR (06/05/2024 4:23 PM EST) Hepatitis C Antibody NON-REACT BRISSA NON-REACT BRISSA 06/06/2024 9:01 AM EST [email or web address] Comment: HCV antibody was non-reactive. There is no laboratory evidence of HCV infection. In most cases, no further action is required. However, if recent HCV exposure is suspected, a test for HCV RNA (test code 74298) is suggested. For additional information please refer to http://education.Avillion/faq/PJT12b2 (This link is being provided for informational/ educational purposes only.) Blood Structure of peripheral vein / Unknown Venipuncture / Unknown 06/05/2024 4:23 PM EST 06/05/2024 4:44 PM EST Narrative [facility] - 06/06/2024 9:01 AM EST [facility] Received Date: us John Mello MD LAB BLOOD ORDERABLES Final Re sult [facility] [place] [address], [place] [address], [employer] [facility] [address], [place] [address], * CT Abdomen Pelvis with Contrast (04/21/2024 [...] to obtain the completed interpretation. Workstation ID: [id number] Narrative 04/22/2024 9:27 AM EST EXAMINATION: CT [...] streak artifact from bilateral total hip arthroplasty. ANTENNA MACHINE OPERATOR TOPOGRAM: As below LUNG BASES: Motion [...] outside the cortical bone. Resulting Agency Comment [id number] Procedure Note Carol Ann Mccloud MD - [...] metallic streak artifact from bilateraltotal hip arthroplasty. ANTENNA MACHINE OPERATOR TOPOGRAM: As below LUNG BASES: Motion [...] possible to obtain thecompleted interpretation. Workstation ID: [id number] Nikolai Gonsalez MD IMG CT PROCEDURES [...] to obtain the completed interpretation. Workstation ID: [id number] Narrative 04/21/2024 7:45 AM EST Indication: Lung [...] changes in the spine. Resulting Agency Comment [id number] Procedure Note Anastasiia Mcnamara MD - 04/21/2024 [...] possible to obtain thecompleted interpretation. Workstation ID: [id number] Nikolai Gonsalez MD IMG CT PROCEDURES Final Result from Last 3 Months or Most Recently Relevant to Health Maintenance [facility] Advance Directives Documents on File Type Date Recorded Patient Manager Wireless Expl anation Health Care Proxy 04/20/2024 3:47 [...] Castro Sister Health Care Agent Care Teams Marketing Operations Consultant Relationship Specialty Start Date End Date Patient, Has No Pcp Or Ref DO NOT EDIT THIS RECORD VIA PROVIDER ON THE FLY PCP - General Human Services Instructor 04/17/24
--- OUTSIDE RECORDS SUMMARY | 2024-10-30 10:25 | XMS_ITS | Patient Health Record ---
Author Organization [facility] Address [address] [place] [address] Care Team Providers Care Casting Assistant Name Role Phone Karishma(inactive) Paulo KITCHEN Primary Care Provider U Jaswinder George Jr Unavailable Reason For Referral No Information Medications Medication [...] Problem Status W/U Status Risk Notes Problem [id number] Rectal bleeding (K62.5) Active confirmed Problem [id number] Jordan's esophagus without dysplasia (K22.70) Active confirmed Plan Of Treatment Future Test Test Name Order Date UPPER GI ENDOSCOPY 06/24/2015 COLONOSCOPY 06/24/2015 Insurance Providers Payer Name Payer Address Payer Phone Subscriber Number Group Number Insured Name Patient Relationship to Insured Coverage Start Date Coverage End Date MEDICARE OF [place] [address] [place] [address] [phone] [id number] WES OLIVO Self - patient is the insured MEDICAID OF [facility] [address] [place] [id number] WES OLIVO Self - patient is the insured Medical (General) History Medical History History ICD Code Jordan's esophagus right knee arthritis Denies [place],DM,CVA,Lung disease,renal dise ase Surgical History Surgery Date(Month/Year) gastric bypass hernia repair left hip replacement right hip replacement trachiotomy colostomy
--- OUTSIDE RECORDS SUMMARY | 2024-10-30 10:25 | XMS_ITS | Patient Health Record ---
Author Organization [facility] Address [address], [place] [id number] Care Team Providers Care Advisor Consultant Name Role Phone [facility] Primary Care Provider Josiane Veloz Unavailable Edda Granado Unavailable Reason For Referral No Information Encounters Encounter Location Date Provider Diagnosis [facility] [address] [place] [address] [id number] 09/14/2024 Edda Granado [facility] [address] [place] [address] [id number] 10/06/2024 Edda Granado [facility] [phone] 10/15/2024 Edda Granado Plan Of Treatment No Information Insurance Providers Payer Name Payer Address Payer Phone Subscriber Number Group Number Insured Name Patient Relationship to Insured Coverage Start Date Coverage End Date [place] Medicaid Standard [address] [place] [phone] [id number] Chuy Castro Self - patient is the insured
--- OUTSIDE RECORDS SUMMARY | 2024-10-30 10:25 | XMS_ITS | Clinical Summary ---
Author Organization [facility] it Address [address] [place] [address] Care Team Providers Care Distiller Name Role Phone Unavailable Primary Care Provider [...]
--- NOTE | 2024-10-30 13:40 | PFT_ITS ---
Flows: FEV1: 51 % of predicted at 1.89 L FVC: 63 % of predicted at 2.96 L FEV1/FVC: 64 % Bronchodilator response: Absent Volumes: Total lung capacity: 78 % of predicted at 5.48 L Residual volume: 100 % of predicted at 2.14 L Slow vital capacity: 65 % of predicted at 3.34 L Expiratory reserve volume: 27 % of predicted at 0.37 L Diffusion capacity: Mildly decreased, corrects to normal after adjustment for alveolar ventilation. Impression: Combined moderate obstructive and restrictive ventilatory defects with no bronchodilator response. Decreased expiratory reserve volume suggests extrathoracic restriction likely secondary to abdominal obesity. Decreased diffusion capacity suggests emphysema. MTDD
== END 2024-10-30 10:05 | disposition home or self-care (01) ==
LOC: HO.RESP 10:04
PROVIDERS: PCP Physician Assistant; Visit Provider Internal Medicine
DX: J44.9 Chronic obstructive pulmonary disease, unspecified (principal); F17.200 Nicotine dependence, unspecified, uncomplicated
CPT/HCPCS: 94010; 94640; 94727; 94729

== ENCOUNTER → 2024-10-30 13:40 | Outpatient (BNV) | payer MEDICARE, MEDICAID, SELFPAY | PROVIDERS: PCP Physician Assistant; Visit Provider Internal Medicine Pulmonary Disease | DX: J98.4 Other disorders of lung (principal) | CPT/HCPCS: 94060; 94727; 94729 ==

== ENCOUNTER 2024-11-05 08:51 | Outpatient (AMB) | payer MEDICARE, MEDICAID, SELFPAY ==
--- NOTE | 2024-11-05 08:55 | MHC.OFFVIS ---
Intake Visit Reasons: Hospital follow up Intake Note: Patient presents for hospital follow up. He has bilateral leg swelling, burning, weeping, cramping and pain. Leg redness started in December. Accompanied by: Self / Same As Patient Allergies oxycodone Adverse Reaction (Unknown, Verified 11/05/24 08:57) GI upset HPI HPI Hospital follow up: Details: Very pleasant 58-year-old gentleman presents for hospital follow-up regarding lower extremity swelling. Complaints include pain over varicosities, swelling of lower extremities, cramping, fatigue, and heaviness of the lower extremities. Right leg had significant swelling and cellulitis which appears to have significantly improved. 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 It is noted more so in right leg. Patient denies any previous venous surgery or injections. Patient denies any history of DVT/ PE. [id number] for DVT Patient denies any history of phlebitis. Trial of compression includes - [id number] They now present for vascular evaluation regarding their varicose veins. [facility] Medical History (Updated 11/05/24 @ 12:22 by Federico Jean Baptiste MD) Varicose veins of right lower extremity with inflammation Morbid (severe) obesity due to excess calories COPD (chronic obstructive pulmonary disease) Cocaine use disorder MDD (major depressive disorder) Homeless ANA (obstructive sleep apnea) Varicose veins of right lower extremity Peripheral vascular disease GERD (gastroesophageal reflux disease) History of pernicious anemia Hx of acute respiratory failure Edema Back pain Arthritis History of DVT of lower extremity Depression ANA treated with BiPAP Right-sided heart failure Surgical History History of incisional hernia repair Hx of esophagogastroduodenoscopy Hx of colonoscopy History of total right knee replacement S/P right knee arthroscopy Hx of tracheostomy Hx of total hip arthroplasty History of colostomy reversal History of colon resection H/O gastric bypass Family History Father Displacement of central venous catheter (CVC) Mother Unknown family medical history Social History Household Members: Other Household Members Other:: penitentiary house Housing: Other Housing Other:: penitentiary house Do you presently have visiting nurse or other home services: No Alcohol intake: former Year quit: 2024 Patient Tobacco Use Status: Current everyday Tobacco user Tobacco use type: Cigarette Cigarettes Per Day: 5 Years Smoked: 40 e-Cigarette/Vaping Use: Currently Using Second Hand Smoke Exposure: Yes Substance Use Type: Crack/Cocaine service: No Sexual orientation: Straight/Heterosexual Cognitive needs: No Hearing needs: No Vision needs: Yes (Reading glasses) Review of Systems Const Reports as per HPI ENT Reports no additional complaints Card Denies chest pain, Denies chest pain at rest and Denies chest pain with activity Resp Denies chest congestion and Denies cough GI Reports no additional complaints Musc Details: pain over varicosities, aching of lower extremities, swelling, cramping, heaviness and tiredness, itching Denies abnormal gait Skin/Breast Reports pruritus and Denies wounds Neuro Reports no additional complaints and Denies abnormal gait Psych Denies no additional complaints Physical Exam Const General: cooperative, healthy appearing and comfortable Orientation/consciousness: oriented to person, oriented to place and oriented to time Neck Carotids: no bruits Chest Chest palpation & inspection: normal inspection of the chest and normal palpation of entire chest wall Resp Effort & Inspection: normal respiratory effort and able to speak in complete sentences Cardio Rate: regular rate Heart sounds: S1 normal heart sound present and S2 normal heart sound present Peripheral pulses: Peripheral pulses 2+ throughout GI Inspection: Yes normal to inspection Skin Other: +2 edema, large rope-like varicosities greater than 4 mm CEAP Classification C4 - skin color changes Ep - Etiology Primary As - superficial veins P - reflux General skin exam: dry skin Neuro General: oriented to person, oriented to place and oriented to time Extrem Right lower extremity: full ROM, normal capillary refill and edema Left lower extremity: full ROM, normal capillary refill and edema Psych Mental Status: mental status grossly normal Assessment & Plan Assessment & Plan (1) Varicose veins of right lower extremity with inflammation: Code(s): I83.11 - Varicose veins of right lower extremity with inflammation Category: Medical Plan: In short, the patient has evidence of venous insufficiency. I have discussed the pathophysiology with the patient. In addition I have provided informational material regarding venous disease to the patient. We have discussed conservative measures including compression, elevation, and exercise. I have also provided a handout regarding appropriate use of compression stockings and where to purchase good compression stockings as well. I have taken the liberty of ordering venous insufficiency testing with the patient. They will follow up with me after testing. The patient had an opportunity to ask questions regarding the treatment plan. All questions were answered. Imaging studies, laboratory studies and physical exam results were discussed and reviewed in detail. No major barriers to understanding were identified. The patient expressed understanding and agreement with the above treatment plan. The patient is aware they should contact our office by phone for worsening of the current condition or the appearance of new symptoms. Thank you for allowing me to participate in the vascular care of this patient. If you have any questions or concerns regarding the treatment for the above condition please do not hesitate to contact me. The office telephone contact is [phone]. This note is constructed using voice recognition software. While every effort has been made to ensure accuracy, right of way manager errors may have been included. Thank you for allowing me to participate in the care of your patient. Yours sincerely, Federico Jean Baptiste MD, FACS, R.P.V.I. Orders: Orders US venous duplex LE BI Today I83.11 - Varicose veins of right lower extremity with inflammation Coding Level of Care Code Est Pt Level 4 (07324) Diagnoses Varicose veins of right lower extremity with inflammation I83.11
--- OUTSIDE RECORDS SUMMARY | 2024-11-05 09:19 | XMS_ITS | Clinical Summary ---
Author Organization [facility] it Address [address] [place] [address] Care Team Providers Care City Recorder Name Role Phone Unavailable Primary Care Provider [...] Vaccine (1 - 2023-2 5 season) 2023 Depression Screening 04/15/2024 Influenza Vaccine (#1) 2024 HIB Vaccines Aged [...]
--- OUTSIDE RECORDS SUMMARY | 2024-11-05 09:19 | XMS_ITS | Clinical Summary ---
Author Organization [facility] Address [address] [place] [address] Care Team Providers Care Quality Systems Technician Name Role Phone Patient, Has No Pcp [...] AM EST): Patient with COPD presenting from [facility] for hypoxia after he was found [...] a PCP but does not have a stick inserter, may benefit from outpatient referral to decrease incidence of hospitalization. On discharge: -prednisone 40mg daily through 05/26 -Ambulatory pulmonology referral placed Assessment & Plan (05/24/2024 10:55 AM EST): Patient with COPD presenting from [facility] for hypoxia after he was found [...] a PCP but does not have a stick inserter, may benefit from outpatient referral to decrease incidence of hospitalization. -prednisone 40mg daily x 5 days (D1: 27) -duonebs q4hr PRN -albuterol 2.5mg neb q4hr prn -maintain SpO2 88-92% -Ambulatory pulmonology referral on discharge Assessment & Plan (05/23/2024 3:55 PM EST): Patient with COPD presenting from [facility] for hypoxia after he was found [...] a PCP but does not have a stick inserter, may benefit from outpatient referral to decrease incidence of hospitalization. -prednisone 40mg daily x 5 days (D1: 05/22) -duonebs q4hr scheduled -albuterol 2.5mg neb q4hr prn -maintain SpO2 88-92% -may benefit from pulm outpatient Assessment & Plan (05/22/2024 1:21 PM EST): Patient with COPD presenting from [facility] for hypoxia after he was found [...] a PCP but does not have a stick inserter, may benefit from outpatient referral to decrease [...] 100 mg p.o. nightly Patient discharged to [facility] program, they will be assisting him with transitional housing. Discussed with patient that he will need a primary care doctor and he states [facility] program has been helping him organize [...] several hospital admissions for withdrawal, presented from [facility] of acute hypoxic respiratory failure 2/2 [...] several hospital admissions for withdrawal, presented from [facility] of acute hypoxic respiratory failure 2/2 [...] several hospital admissions for withdrawal, presented from [facility] of acute hypoxic respiratory failure 2/2 COPDe. He has been on a 2 day detox from cocaine and alcohol. Reports last use was 05/20. Was given 10 mg of Valium by [facility] due to withdrawal symptoms and CIWA 10. -CIWA with rescue valium -continue home clonidine 0.1mg 3 times a day prn -thiamine, folic acid, Mag Assessment & Plan (05/22/2024 1:21 PM EST): History of cocaine and OUD with several hospital admissions for withdrawal, presented from [facility] of acute hypoxic respiratory failure 2/2 COPDe. He has been on a 2 day detox from cocaine and alcohol. Reports last use was 05/20. Was given 10 mg of Valium by [facility] due to withdrawal symptoms and CIWA 10. -CIWA with rescue valium -continue home clonidine 0.1mg 3 times a day prn -thiamine, folic acid, Mag Assessment & Plan (05/05/2024 11:43 AM EST): History of cocaine and OUD with several hospital admissions for withrawal, [place] [facility] [place] in the setting of COVID. Was on a chlordiazepoxide at rehab, but last alcohol intake > 1 week INFORMATION SECURITY OFFICER to transfer here -continue home clonidine 0.1mg 3 times a day -continue home baclofen 10mg 3 times a day -nicotine patch as needed -thiamine and MV daily Assessment & Plan (05/04/2024 1:43 PM EST): History of cocaine and OUD with several hospital admissions for withrawal, [place] [facility] [place] in the setting of COVID. Was on a chlordiazepoxide at rehab, but last alcohol intake > 1 week INFORMATION SECURITY OFFICER to transfer here -continue home clonidine 0.1mg 3 times a day -continue home baclofen 10mg 3 times a day -nicotine patch as needed -thiamine and MV daily Assessment & Plan (05/03/2024 12:11 PM EST): History of cocaine and OUD with several hospital admissions for withrawal, [place] [facility] [place] in the setting of COVID. Was on a chlordiazepoxide at rehab, but last alcohol intake > 1 week INFORMATION SECURITY OFFICER to transfer here -continue home clonidine 0.1mg 3 times a day -continue home baclofen 10mg 3 times a day -CIWA without meds, add if needed -nicotine patch as needed -thiamine and MV daily Assessment & Plan (05/02/2024 10:18 AM EST): History of cocaine and OUD with several hospital admissions for withrawal, [place] [facility] [place] in the setting of COVID. Was on a chlordiazepoxide at rehab, but last alcohol intake > 1 week INFORMATION SECURITY OFFICER to transfer here -continue home clonidine 0.1mg 3 times a day -continue home baclofen 10mg 3 times a day -CIWA without meds, add if needed -nicotine patch as needed -thiamine and MV daily Assessment & Plan (05/01/2024 1:12 PM EST): History of cocaine and OUD with several hospital admissions for lisa, [place] [facility] [place] [facility] in the setting of COVID. Was on a chlordiazepoxide at rehab, but last alcohol intake > 1 week INFORMATION SECURITY OFFICER to transfer here -continue home clonidine 0.1mg [...] on several psychotropic medications. [facility] under Section 21. Was evaluated by psychiatry [...] psychotropic medications. Transferred to the hospital from [facility] under Section 21. Was evaluated by psychiatry [...] psychotropic medications. Transferred to the hospital from [facility] under Section 21. I am unclear at [...] psychotropic medications. Transferred to the hospital from [facility] under Section 21. I am unclear at [...] psychotropic medications. Transferred to the hospital from [facility] under Section 21. I am unclear at this time if he is also under Section 12 (hospitalized for 02/2024). Will need to clarify with psychiatry CL here - HOLD loxapine 100 mg [not noted in [facility] MAR] - [facility] daily [facility] - Hydroxyzine 25 mg every 8 hours as needed - Pregabalin 75 mg three times a day - Formal psych evaluation requested to help clarify Section and medications Assessment & Plan (04/24/2024 11:29 AM EST): No home meds, although patient has Clonidine as prescribed in the past for anxiety PRN. Was hospitalized at [facility] with suicidal ideations & ACRHF in Feb 2024. -Clonidine 0.1 mg 3 times a day PRN Assessment & Plan (04/23/2024 9:51 AM EST): No home meds, although patient has Clonidine as prescribed in the past for anxiety PRN. Was hospitalized at [facility] with suicidal ideations & ACRHF in Feb 2024. -Clonidine 0.1 mg 3 times a day PRN Assessment & Plan (04/22/2024 9:22 AM EST): No home meds, although patient has Clonidine as prescribed in the past for anxiety PRN. Was hospitalized at [facility] with suicidal ideations & ACRHF in Feb 2024. -Clonidine 0.1 mg 3 times a day PRN Assessment & Plan (04/21/2024 9:58 AM EST): No home meds, although patient has Clonidine as prescribed in the past for anxiety PRN. Was hospitalized at [facility] with suicidal ideations & ACRHF in Feb 2024. -Clonidine 0.1 mg 3 times a day PRN Assessment & Plan (04/20/2024 11:03 AM EST): No home meds, although patient has Clonidine as prescribed in the past for anxiety PRN. Was hospitalized at [facility] with suicidal ideations & ACRHF in Feb 2024. -Clonidine 0.1 mg 3 times a day PRN Assessment & Plan (04/19/2024 12:45 PM EST): No home meds, although patient has Clonidine as prescribed in the past for anxiety PRN. Was hospitalized at [facility] with suicidal ideations & ACRHF in Feb [...] to re-establish care with PCP. He said [facility] is helping him with this [...] (05/22/2024 1:21 PM EST): Patient presenting from [facility] with acute hypoxia, placed on 4L. [...] AM EST): Patient was brought from [facility] due to developing altered mental status (lethargy) after x1 valium for alcohol withdrawal. Immediately became hypoxic with aspiration episode and briefly needed supplemental oxygen, then was sent to [facility] for evaluation. Patient's mental status was back to baseline on 1/4 PM. Last drink was 04/16/24 prior to admission to [facility] on same day. CT head neg. -CIWA protocol with Ativan, discontinued as pt non-scoring -Folic acid & thiamine PO daily -Seizure precautions -SW consulted for AUD. Assessment & Plan (04/23/2024 9:51 AM EST): Patient was brought from [facility] due to developing altered mental status (lethargy) after x1 valium for alcohol withdrawal. Immediately became hypoxic with aspiration episode and briefly needed supplemental oxygen, then was sent to [facility] for evaluation. Patient's mental status was back to baseline on 1/4 PM. Last drink was 04/16/24 prior to admission to [facility] on same day. CT head neg. -CIWA protocol with Ativan, discontinued as pt non-scoring -Folic acid & thiamine PO daily -Seizure precautions -SW consulted for AUD. Assessment & Plan (04/22/2024 9:22 AM EST): Patient was brought from [facility] due to developing altered mental status (lethargy) after x1 valium for alcohol withdrawal. Immediately became hypoxic with aspiration episode and briefly needed supplemental oxygen, then was sent to [facility] for evaluation. Patient's mental status was back to baseline on 1/4 PM. Last drink was 04/16/24 prior to admission to [facility] on same day. CT head neg. -CIWA protocol with Ativan, discontinued as pt non-scoring -Folic acid & thiamine PO daily -Seizure precautions -SW consulted for AUD. Assessment & Plan (04/21/2024 9:58 AM EST): Patient was brought from [facility] due to developing altered mental status (lethargy) after x1 valium for alcohol withdrawal. Immediately became hypoxic with aspiration episode and briefly needed supplemental oxygen, then was sent to [facility] for evaluation. Patient's mental status was back to baseline on 1/4 PM. Last drink was 04/16/24 prior to admission to [facility] on same day. CT head neg. -CIWA protocol with Ativan, discontinued as pt non-scoring -Folic acid & thiamine PO daily -Seizure precautions -SW consulted for AUD. Assessment & Plan (04/20/2024 11:03 AM EST): Patient was brought from [facility] due to developing altered mental status (lethargy) after x1 valium for alcohol withdrawal. Immediately became hypoxic with aspiration episode and briefly needed supplemental oxygen, then was sent to [facility] for evaluation. Patient's mental status was back to baseline on 1/4 PM. Last drink was 04/16/24 prior to admission to [facility] on same day. CT head neg. -CIWA protocol with Ativan -Folic acid & thiamine PO daily -Seizure precautions -SW consulted for AUD. Assessment & Plan (04/19/2024 12:45 PM EST): Patient was brought from [facility] due to developing altered mental status (lethargy) after x1 valium for alcohol withdrawal. Immediately became hypoxic with aspiration episode and briefly needed supplemental oxygen, then was sent to [facility] for evaluation. Patient's mental status was back to baseline on 04/18 PM. Last drink was 04/16/24 prior to admission to [facility] on same day. CT head neg. -[facility] protocol with Ativan -Folic acid & thiamine PO daily -Seizure precautions - consulted for alcoholism. Assessment & Plan (04/18/2024 9:52 PM EST): 58 years old male, chronic alcohol abuse and GERD, transferred from [facility]. Patient has been admitted for alcohol detoxification, patient received Valium and post therapy developed respiratory distress, developed hypoxia and transferred to [facility] via EMS Plan: 1-[facility] protocol 2- replacement of multivitamins [...] Flagyl, Rocephin. Patient was recently admitted at [facility] for AHRF and Suicidal ideations. -04/20/24 CT [...] Flagyl, Rocephin. Patient was recently admitted at [facility] for AHRF and Suicidal ideations. -04/20/24 CT [...] Flagyl, Rocephin. Patient was recently admitted at [facility] for AHRF and Suicidal ideations. -04/20/24 CT [...] Flagyl, Rocephin. Patient was recently admitted at [facility] for AHRF and Suicidal ideations. -04/20/24 CT [...] Flagyl, Rocephin. Patient was recently admitted at [facility] for AHRF and Suicidal ideations. -MRSA PCR [...] Flagyl, Rocephin. Patient was recently admitted at [facility] for AHRF and Suicidal ideations. -MRSA PCR [...] drink = 0.6 oz pur e alcohol) [facility] Utilities Answer Date Recorded In the past 12 months has th e [employer], gas, oil, or water company threatened to [...] Screening Completed 06/05/2024 Procedures * Due to [place] Optimitive law, this organization might not be sharing [...] to Health Maintenance Results * Due to [place] Optimitive law, this organization might not be sharing negative HIV tests. * Hepatitis C Antibody w/Reflex to HCV RNA, Quantitative PCR (06/05/2024 4:23 PM EST) Hepatitis C Antibody NON-REACT BRISSA NON-REACT BRISSA 06/06/2024 9:01 AM EST [employer] Comment: HCV antibody was non-reactive. There is no laboratory evidence of HCV infection. In most cases, no further action is required. However, if recent HCV exposure is suspected, a test for HCV RNA (test code 77768) is suggested. For additional information please refer to http://education.WheresTheBus/faq/VMT33o8 (This link is being provided for informational/ educational purposes only.) Blood Structure of peripheral vein / Unknown Venipuncture / Unknown 06/05/2024 4:23 PM EST 06/05/2024 4:44 PM EST Narrative [facility] 06/06/2024 9:01 AM EST [facility] Received Date: us John Mello MD LAB BLOOD ORDERABLES Final Re sult [facility] [address], [place] [address], [facility] [address], [place] [address], * CT Abdomen Pelvis with Contrast (04/21/2024 [...] to obtain the completed interpretation. Workstation ID: [id number] Narrative 04/22/2024 9:27 AM EST EXAMINATION: CT [...] streak artifact from bilateral total hip arthroplasty. GLASS CYLINDER FLANGER TOPOGRAM: As below LUNG BASES: Motion degraded. [...] outside the cortical bone. Resulting Agency Comment [id number] Procedure Note Carol Ann Mccloud MD - [...] metallic streak artifact from bilateraltotal hip arthroplasty. GLASS CYLINDER FLANGER TOPOGRAM: As below LUNG BASES: Motion degraded. [...] possible to obtain thecompleted interpretation. Workstation ID: [id number] us Nikolai Gonsalez MD IMG CT PROCEDURES [...] to obtain the completed interpretation. Workstation ID: [id number] Narrative 04/21/2024 7:45 AM EST Indication: Lung [...] changes in the spine. Resulting Agency Comment [id number] Procedure Note Anastasiia Mcnamara MD - 04/21/2024 [...] possible to obtain thecompleted interpretation. Workstation ID: [id number] Nikolai Gonsalez MD IMG CT PROCEDURES Final Result from Last 3 Months or Most Recently Relevant to Health Maintenance Insurance [facility] Advance Directives Documents on File Type Date Recorded Patient Mailing Specialist Expl anation Health Care Proxy 04/20/2024 3:47 [...] Castro Sister Health Care Agent Care Teams Quality Systems Technician Relationship Specialty Start Date End Date Patient, Has No Pcp Or Ref DO NOT EDIT THIS RECORD VIA PROVIDER ON THE FLY PCP - General Take Up Operator 04/17/24
--- OUTSIDE RECORDS SUMMARY | 2024-11-05 09:19 | XMS_ITS | Encounter Summary ---
Author Organization [facility] Address [address] [place] [address] Care Team Providers Care Rotary Soil Stabilizer Operator Name Role Phone Paulo Schwarz Primary Care Provider [phone] Encounter Details Date Type Department Care Team ([facility] st Contact Info) Description 09/19/2012 Orders Only [facility] Orthopedic Surgery [address] [address] Suresh Velazquez MD [address] [place] [address] Social History Tobacco Use Types Packs/Day Years [...] thigh documented in this encounter Care Teams Rotary Soil Stabilizer Operator Relationship Specialty Start Date End Date Paulo Schwarz [address] [place] [address] [place] [address] PCP - General 01/07/08 documented as of this encounter
--- OUTSIDE RECORDS SUMMARY | 2024-11-05 09:19 | XMS_ITS | Patient Health Record ---
Author Organization [facility] Address [address] [place] [address] Care Team Providers Care Cured Meat Packing Supervisor Name Role Phone Karishma(inactive) Paulo KITCHEN Primary [...] Problem Status W/U Status Risk Notes Problem 12045086 Rectal bleeding (K62.5) Active confirmed Problem [id number] Jordan's esophagus without dysplasia (K22.70) Active confirmed Plan Of Treatment Future Test Test Name Order Date UPPER GI ENDOSCOPY 06/24/2015 COLONOSCOPY 06/24/2015 Insurance Providers Payer Name Payer Address Payer Phone Subscriber Number Group Number Insured Name Patient Relationship to Insured Coverage Start Date Coverage End Date MEDICARE OF [place] [address] [place] [phone] [id number] WES OLIVO Self - patient is the insured MEDICAID OF [facility] [address] [place] [phone] [id number] WES OLIVO Self - patient is the insured Medical (General) History Medical History History ICD Code Jordan's esophagus right knee arthritis Denies NH,DM,CVA,Lung disease,renal dise ase Surgical History Surgery Date(Month/Year) gastric bypass hernia repair left hip replacement right hip replacement trachiotomy colostomy
--- OUTSIDE RECORDS SUMMARY | 2024-11-05 09:19 | XMS_ITS | Encounter Summary ---
Author Organization [facility] Address [address] [address] Phone Care Team Providers Care Merchandise Marker Name Role Phone Pacheco Vargas DO Primary Care Provider [phone] Manuel Foy Primary Care Provider + Encounter Details Date Type Department Care Team (Late st Contact Info) Description 04/09/2018 Transcribe Orders [facility] Specimen Processing [address] [place] [address] Pacheco Vargas DO [address] [facility] [place] [address] [place] [address] [email or web address] Routine general medical examination at a health care facility (Primary Dx) Social History Tobacco Use Types Packs/Day Years Used Date Smoking Tobacco: Never Assessed Sex and Gender Information Value Date Recorded Sex Assigned at Male 01/25/2024 6:27 PM EDT Legal Sex Male 7:29 PM EST Gender Identity Male 01/25/2024 6:27 PM EDT Sexual Orientation Straight 01/25/2024 6: 27 PM EDT documented as of this encounter Plan of Treatment Not on file documented as of this encounter Results * (ABNORMAL) CBC (04/09/2018 10:03 AM EST) WBC 7.46 3.40 - 11.20 K/uL [facility] RBC 4.65 4.50 - 5.50 M/uL [facility] HGB 12.8(L) 13.0 - 17.0 g/dL [facility] HCT 39.9(L) 40.0 - 51.0 % [facility] PLT 256 130 - 400 K/uL [facility] MCV 85.8 79.0 - 98.0 fL [facility] MCH 27.5 27.0 - 34.8 pg [facility] MCHC 32.1 31.5 - 36.0 g/dL [facility] RDW 15.5(H) 10.8 - 14.6 % [facility] MPV 11.9 9.4 - 12.4 fl [facility] NRBC 0.00 0.00 /100 WBCs [facility] ABSOLUTE NRBC 0.00 0.00 K/uL [facility] Blood 04/09/2018 10:0 3 AM EST 04/09/2018 11:52 AM EST us Pacheco Vargas DO LAB BLOOD ORDERABLES Final Resul t Performing Organization Address City/State/[facility] Co de Phone Number [facility] [address] [place] [address] documented in this encounter Visit Diagnoses Diagnosis Routine general medical examination at a health care facility- Primary documented in this encounter Additional Health Concerns Infection Onset Date Last Indicated Resolved Time CoV-Risk 01/25/2024 01/25/2024 02/05/2024 1:22 AM EDT CoV-Risk Comment:Per note documentation 02/23/2024 02/28/2024 7:53 AM EST Rhino/Entero 02/27/2024 02/27/2024 03/12/2024 1:21 AM EST MDR-GN 03/01/2024 03/01/2024 documented as of this encounter Care Teams Merchandise Marker Relationship Specialty Start Date End Date Pacheco Vargas DO PCP - General Internal Medicine 04/09/18 02/22/24 Manuel Foy PA [address] [place] [address] PCP - General Physician Coding Spec 02/23/24 documented as of this encounter Additional Source Comments The information contained in this document represents components of the legal health record. It is not the complete legal health record.[facility]
--- OUTSIDE RECORDS SUMMARY | 2024-11-05 09:19 | XMS_ITS | Patient Health Record ---
Author Organization [facility] Address [address], [place] [id number] Care Team Providers Care Wastewater Treatment Plant Operator Name Role Phone [facility] Primary Care Provider Josiane Veloz Unavailable Edda Granado Unavailable Reason For Referral No Information Encounters Encounter Location Date Provider Diagnosis [facility] [address] [place] [phone] 09/14/2024 Edda Granado [facility] [address] [place] [id number] 10/06/2024 Edda Granado [facility] [phone] 10/15/2024 Edda Granado Plan Of Treatment No Information Insurance Providers Payer Name Payer Address Payer Phone Subscriber Number Group Number Insured Name Patient Relationship to Insured Coverage Start Date Coverage End Date [place] Medicaid Standard [address] [place] [phone] [id number] Chuy Castro Self - patient is the insured
== END 2024-11-05 09:16 | disposition home or self-care (01) ==
LOC: HO.HVS 08:52
PROVIDERS: PCP Physician Assistant; Visit Provider Surgery Vascular Surgery
DX: I83.11 Varicose veins of right lower extremity with inflammation (principal)
CPT/HCPCS: 99214

== ENCOUNTER → 2024-11-05 08:51 | Outpatient (BNVA) | payer MEDICARE, MEDICAID, SELFPAY | PROVIDERS: PCP Physician Assistant; Visit Provider Surgery Vascular Surgery | DX: Z09 Encounter for follow-up examination after completed treatment for conditions other than malignant neoplasm (principal); I83.11 Varicose veins of right lower extremity with inflammation | CPT/HCPCS: 99212 ==

== ENCOUNTER 2024-11-11 13:52 | Outpatient (AMB) | payer MEDICARE, MEDICAID, SELFPAY ==
[2024-11-11 14:03] VITALS: BP 150/74; PULSE 81; O2SAT 92; BMI 57.7
--- NOTE | 2024-11-11 14:03 | A.OFFVIS_ITS ---
Vital Signs 11/11/24 14:03 Height 5 ft 7 in Weight 368 lb 2.751 oz BMI 57.7 BP 150/74 H Blood Pressure Location Lt brachial Position Sitting Pulse 81 Pulse Source Pulse Oximeter Pulse Oximetry (%) 92 Oxygen Delivery Method Room Air Intake Visit Reasons: copd Intake Note: pt is here for follow up and states he was in the hospital for resp failure and was sent [place] [facility] on oxygen on 2 liters, and he states he is coughing, wheezing and short of breath with walking. [employer] Required: No Allergies oxycodone Adverse Reaction (Unknown, Verified 11/11/24 14:32) GI upset Medication List - Last Reconciled 11/11/24 by Harini Sylvester MD albuterol sulfate 90 mcg/actuation (Ventolin HFA) 2 puffs inhalation RQ4H PRN 30 days baclofen 10 mg PO BID 30 days clonidine HCl 0.1 mg PO TID 90 days clotrimazole-betamethasone 1-0.05 % 1 appl topical BID PRN duloxetine 30 mg PO DAILY 90 days furosemide 40 mg PO DAILY 30 days hydroxyzine pamoate 50 mg PO TID PRN 90 days ibuprofen 600 mg PO TID PRN ketoconazole 2% 1 appl topical 3XW 4 weeks lidocaine 4% (Lidocaine Pain Relief) 1 patch See Protocol transdermal DAILY meloxicam 15 mg PO BEDTIME mirtazapine 45 mg PO BEDTIME 90 days omeprazole 20 mg PO DAILY@0630 90 days oxcarbazepine 150 mg PO BID 90 days [POWER SCOOTER As directed] pregabalin (Lyrica) 75 mg PO BID trazodone 200 mg PO BEDTIME umeclidinium-vilanterol 62.5-25 mcg/actuation (Anoro Ellipta) 1 ea inhalation DAILY 30 days Do you need a note to return to daycare/school/sports/work: No HPI HPI copd: Details: This 58 years old gentleman with super morbid obesity, has history of severe obstructive/restrictive lung disease as well as severe obstructive sleep apnea. After her last visit, he has undergone split night study, which confirmed severe obstructive sleep apnea and treated with BiPAP pressure setting 22/12 cm and still had residual hypoxemia for which he needed O2 2-6 L/minute. He had pulmonary function test which confirms that he has severe restrictive and obstructive airway disorder. Patient also hospitalized from 10/24-, and treated for acute exacerbation of COPD,/resp. failure He was treated with IV Solu-Medrol, Ceftin, DuoNeb updrafts and oxygen. [place] [facility] [place], On O2 2 L/minute Albuterol HFA. 2 puffs Q so to 6 hours p.r.n. Anoro Ellipta 1 inhalation daily. The patient is actually feeling better because he is getting good care and also oxygen. He is waiting to get the BiPAP equipment. Comes here for follow-up today. [facility] Medical History (Updated 11/11/24 @ 14:47 by Harini Sylvester MD) Substance abuse Varicose veins of right lower extremity with inflammation Morbid (severe) obesity due to excess calories COPD (chronic obstructive pulmonary disease) Cocaine use disorder MDD (major depressive disorder) Homeless ANA (obstructive sleep apnea) Varicose veins of right lower extremity Peripheral vascular disease GERD (gastroesophageal reflux disease) History of pernicious anemia Hx of acute respiratory failure Edema Back pain Arthritis History of DVT of lower extremity Depression ANA treated with BiPAP Right-sided heart failure Surgical History History of incisional hernia repair Hx of esophagogastroduodenoscopy Hx of colonoscopy History of total right knee replacement S/P right knee arthroscopy Hx of tracheostomy Hx of total hip arthroplasty History of colostomy reversal History of colon resection H/O gastric bypass Family History Father Displacement of central venous catheter (CVC) Mother Unknown family medical history Social History Household Members: Other Household Members Other:: senior living house Housing: Other Housing Other:: senior living house Do you presently have visiting nurse or other home services: No Alcohol intake: former Year quit: 2024 Patient Tobacco Use Status: Current everyday Tobacco user Tobacco use type: Cigarette Cigarettes Per Day: 5 Years Smoked: 40 e-Cigarette/Vaping Use: Currently Using Second Hand Smoke Exposure: Yes Substance Use Type: Crack/Cocaine service: No Sexual orientation: Straight/Heterosexual Cognitive needs: No Hearing needs: No Vision needs: Yes (Reading glasses) Review of Systems Const All systems reviewed & are unremarkable except as noted in HPI and below Eyes Reports no additional complaints ENT Reports no additional complaints Card Denies chest pain, Denies irregular heart rhythm and Denies leg edema Resp Reports as per HPI GI Reports heartburn Details: Being treated for GERD symptoms Reports no additional complaints Musc Reports back pain and Reports arthralgias Skin/Breast Reports system reviewed and no additional complaints, except as documented Neuro Reports no additional complaints Endo Reports no additional complaints Steven/Lymph Reports no additional complaints Aller/Immun Reports no additional complaints Physical Exam Vital Signs: Last Vital Signs Pulse 81 11/11/24 14:03 BP 150/74 H 11/11/24 14:03 Pulse Ox 92 11/11/24 14:03 Oxygen Delivery Method Room Air 11/11/24 14:03 BMI result Body Mass Index 57.7 He is morbidly obese, neck size 18 in,, Mallampati scale 4 Const General: comfortable, no acute distress, alert and awake Orientation/consciousness: patient oriented x3 HEENT Head: Yes normal to inspection General nose exam: No nasal polyps present and No nasal discharge present Face and sinus: Yes sinuses nontender Mouth: oropharynx abnormals (Narrow and crowded, Mallampati scale 4) Throat: Yes posterior oropharynx normal Eyes General: appearance normal, both eyes and all related structures Neck Neck: Yes normal visual inspection, Yes no lymphadenopathy, Yes trachea midline, Yes no JVD and Yes other (Neck circumference 18 in) Thyroid: Thyroid normal Chest Chest palpation & inspection: normal inspection of the chest, normal palpation of entire chest wall and no tenderness Resp Other: Breath sounds are somewhat distant with prolonged expiratory phase. There are scattered inspiratory wheezes. No crepitations. Cardio Palpation: normal PMI Rate: regular rate Rhythm: regular rhythm Heart sounds: no gallops and no murmurs GI Other: Abdomen is obese and protuberant Palpation (GI): Soft to palpation, Tenderness to palpation present (GI), No hepatosplenomegaly present, no masses and no aortic enlargement Auscultation: normal bowel sounds Back/Spine/Pelvis Thoracic/Lumbar Spine: thoracic and lumbar spine normal to inspection and thoraco-lumbar ROM limited Skin General skin exam: no rashes or lesions noted Neuro General: patient oriented x3 and no focal motor deficits Cranial nerves: Yes CN's II-XII intact bilaterally Extrem General: Yes normal to inspection, Yes no clubbing, cyanosis or edema, Yes no calf tenderness and Yes edema (Trace of pitting edema around the ankles) Psych Appearance: grossly normal and well kempt Speech and movement: Normal speech and movement present Results Reviewed Results Reviewed: Venous BGs on 10/24 PH 7.39 PCO2 66 PO2 33 HCO3 40 C/W CHRONIC COMPENSATED RESPIRATORY FAILURE. PULMONARY FUNCTION TEST ON 10/30 SEVERE RESTRICTIVE AND OBSTRUCTIVE AIRWAY DISORDER, NO RESPONSE TOBDS IN-LAB SLEEP STUDY ON 718, VERY SEVERE OBSTRUCTIVE SLEEP APNEA, ON TITRATION REQUIRED BIPAP LEVEL 22/12 CM, ALONG WITH O2 SUPPLEMENTATION 2 L/MINUTE Assessment & Plan Assessment & Plan (1) Morbid (severe) obesity due to excess calories: Comment: Patient is a case of morbid obesity, current BMI 57.7 Code(s): E66.01 - Morbid (severe) obesity due to excess calories Category: Medical Plan: Weight reduction is desirable however currently, he is in a nursing facility, may not be able. to lose much weight (2) COPD (chronic obstructive pulmonary disease): Comment: Patient is a lifelong smoker. Has cut. Down to 7-8 . SINCE HOSPITALIZATION AND NOW AT THE ALF HE IS NOT ALLOWED TO SMOKE. Code(s): J44.9 - Chronic obstructive pulmonary disease, unspecified Category: Medical Qualifiers: COPD type: chronic bronchitis Chronic bronchitis type: unspecified Qualified Code(s): J42 - Unspecified chronic bronchitis Plan: ADVISED THAT HE SHOULD NOT SMOKE AT ALL (3) ANA (obstructive sleep apnea): Comment: He is a known case of obstructive sleep apnea and was using the BiPAP from his last sleep study in 2019. Lost his CPAP/BiPAP machine when he was evicted from his apartment last year. He does have interrupted sleep at night and excessive daytime somnolence during the daytime Sleep study with CPAP titration in the sleep lab Has prove that he has very severe obstructive sleep apnea and nocturnal hypoxemia. He needs to use BiPAP with pressure setting of 20/12 cm and with oxygen 2- 6 L/minute Code(s): G47.33 - Obstructive sleep apnea (adult) (pediatric) Category: Medical Plan: Now that he is in a [place] [facility], he needs to have BiPAP apparatus along with oxygen. We are going to call the [place] [facility] and coordinate with them for his ongoing care. ( ordered BiPAP with pressure setting 22/12 cm and O2 2 L/minute along with the BiPAP ) (4) Acute and chronic respiratory failure with hypoxia: Comment: As per venous blood gas he has acute on chronic type of respiratory failure. He seems. To be controlled at this time Code(s): J96.21 - Acute and chronic respiratory failure with hypoxia Category: Medical Plan: It is important that he should start using the BiPAP so that his respiratory failure can also improve. (5) Substance abuse: Comment: This gentleman has history of using opiates, cocaine . and other staff , leading to his addiction from the apartment and he lived has a homeless until his recent admission to the hospital . Code(s): F19.10 - Other psychoactive substance abuse, uncomplicated Category: Medical Plan: He is advised to give up on smoking cigarettes and gave up on any substance abuse. Now that he is in a protected living place this can be achieved, But even after discharge from the facility he will have to be watched closely. Coding Level of Care Code Est Pt Level 4 (21885) Diagnoses Morbid (severe) obesity due to excess calories E66.01 Chronic bronchitis, unspecified chronic bronchitis type J42 COPD type: chronic bronchitis Chronic bronchitis type: unspecified ANA (obstructive sleep apnea) G47.33 Acute and chronic respiratory failure with hypoxia J96.21 Substance abuse F19.10
--- OUTSIDE RECORDS SUMMARY | 2024-11-11 14:35 | XMS_ITS | Encounter Summary ---
Author Organization [facility] Address [address] [place] [address] Care Team Providers Care Public Safety Dispatcher Name Role Phone Paulo Schwarz Primary Care Provider [phone] Encounter Details Date Type Department Care Team ([facility] st Contact Info) Description 09/19/2012 Orders Only [facility] Orthopedic Surgery [address] [address] Suresh Velazquez MD [address] [place] [address] Social History Tobacco Use Types Packs/Day Years [...] thigh documented in this encounter Care Teams Public Safety Dispatcher Relationship Specialty Start Date End Date Paulo Schwarz [address] [place] [address] [place] [address] PCP - General 01/07/08 documented as of this encounter
--- OUTSIDE RECORDS SUMMARY | 2024-11-11 14:35 | XMS_ITS | Clinical Summary ---
Author Organization [facility] Address [address] [place] [address] Care Team Providers Care Stores Assistant Name Role Phone Patient, Has No Pcp [...] Patient with COPD presenting from [facility] for hypoxia after he was found [...] a PCP but does not have a developer prover upholstering, may benefit from outpatient referral to decrease incidence of hospitalization. On discharge: -prednisone 40mg daily through 05/26 -Ambulatory pulmonology referral placed Assessment & Plan (05/24/2024 10:55 AM EST): Patient with COPD presenting from [facility] for hypoxia after he was found [...] a PCP but does not have a developer prover upholstering, may benefit from outpatient referral to decrease incidence of hospitalization. -prednisone 40mg daily x 5 days (D1: 27) -duonebs q4hr PRN -albuterol 2.5mg neb q4hr prn -maintain SpO2 88-92% -Ambulatory pulmonology referral on discharge Assessment & Plan (05/23/2024 3:55 PM EST): Patient with COPD presenting from [facility] for hypoxia after he was found [...] a PCP but does not have a developer prover upholstering, may benefit from outpatient referral to decrease incidence of hospitalization. -prednisone 40mg daily x 5 days (D1: 05/22) -duonebs q4hr scheduled -albuterol 2.5mg neb q4hr prn -maintain SpO2 88-92% -may benefit from pulm outpatient Assessment & Plan (05/22/2024 1:21 PM EST): Patient with COPD presenting from [facility] for hypoxia after he was found [...] a PCP but does not have a developer prover upholstering, may benefit from outpatient referral to decrease [...] 100 mg p.o. nightly Patient discharged to [facility] program, they will be assisting him with transitional housing. Discussed with patient that he will need a primary care doctor and he states [facility] program has been helping him organize [...] admissions for withdrawal, presented from [facility] of acute hypoxic respiratory failure 2/2 [...] admissions for withdrawal, presented from [facility] of acute hypoxic respiratory failure 2/2 [...] admissions for withdrawal, presented from [facility] of acute hypoxic respiratory failure 2/2 COPDe. He has been on a 2 day detox from cocaine and alcohol. Reports last use was 05/20. Was given 10 mg of Valium by [facility] due to withdrawal symptoms and CIWA 10. -CIWA with rescue valium -continue home clonidine 0.1mg 3 times a day prn -thiamine, folic acid, Mag Assessment & Plan (05/22/2024 1:21 PM EST): History of cocaine and OUD with several hospital admissions for withdrawal, presented from [facility] of acute hypoxic respiratory failure 2/2 COPDe. He has been on a 2 day detox from cocaine and alcohol. Reports last use was 05/20. Was given 10 mg of Valium by [facility] due to withdrawal symptoms and CIWA 10. -CIWA with rescue valium -continue home clonidine 0.1mg 3 times a day prn -thiamine, folic acid, Mag Assessment & Plan (05/05/2024 11:43 AM EST): History of cocaine and OUD with several hospital admissions for withrawal, presented from [facility] ([facility]) in the setting of COVID. 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 [facility] under Section [facility]. Was evaluated [...] psychotropic medications. Transferred to the hospital from [facility] under Section 21. Was evaluated [...] psychotropic medications. Transferred to the hospital from [facility] under Section 21. I am [...] psychotropic medications. Transferred to the hospital from [facility] under Section 21. I am [...] psychotropic medications. Transferred to the hospital from [facility] under Section 21. I am unclear at this time if he is also under Section 12 (hospitalized for 02/2024). Will need to clarify with psychiatry CL here - HOLD loxapine 100 mg [not noted in [facility] MAR] - [facility] 10 mg daily [facility] - Hydroxyzine 25 mg every 8 hours as needed - Pregabalin 75 mg three times a day - Formal psych evaluation requested to help clarify Section and medications Assessment & Plan (04/24/2024 11:29 AM EST): No home meds, although patient has Clonidine as prescribed in the past for anxiety PRN. Was hospitalized at [facility] with suicidal ideations & ACRHF in Feb 2024. -Clonidine 0.1 mg 3 times a day PRN Assessment & Plan (04/23/2024 9:51 AM EST): No home meds, although patient has Clonidine as prescribed in the past for anxiety PRN. Was hospitalized at [facility] with suicidal ideations & ACRHF in Feb 2024. -Clonidine 0.1 mg 3 times a day PRN Assessment & Plan (04/22/2024 9:22 AM EST): No home meds, although patient has Clonidine as prescribed in the past for anxiety PRN. Was hospitalized at [facility] with suicidal ideations & ACRHF in Feb 2024. -Clonidine 0.1 mg 3 times a day PRN Assessment & Plan (04/21/2024 9:58 AM EST): No home meds, although patient has Clonidine as prescribed in the past for anxiety PRN. Was hospitalized at [facility] with suicidal ideations & ACRHF in Feb 2024. -Clonidine 0.1 mg 3 times a day PRN Assessment & Plan (04/20/2024 11:03 AM EST): No home meds, although patient has Clonidine as prescribed in the past for anxiety PRN. Was hospitalized at [facility] with suicidal ideations & ACRHF in Feb 2024. -Clonidine 0.1 mg 3 times a day PRN Assessment & Plan (04/19/2024 12:45 PM EST): No home meds, although patient has Clonidine as prescribed in the past for anxiety PRN. Was hospitalized at [facility] with suicidal ideations & ACRHF in Feb [...] to re-establish care with PCP. He said [facility] program is helping him with this [...] PM EST): Patient presenting from [facility] with acute hypoxia, placed on 4L. [...] 11:29 AM EST): Patient was brought from [facility] due to developing altered mental status (lethargy) after x1 valium for alcohol withdrawal. Immediately became hypoxic with aspiration episode and briefly needed supplemental oxygen, then was sent to [facility] for evaluation. Patient's mental status was back to baseline on 1/4 PM. Last drink was 04/16/24 prior to admission to [facility] on same day. CT head neg. -CIWA protocol with Ativan, discontinued as pt non-scoring -Folic acid & thiamine PO daily -Seizure precautions -SW consulted for AUD. Assessment & Plan (04/23/2024 9:51 AM EST): Patient was brought from [facility] due to developing altered mental status (lethargy) after x1 valium for alcohol withdrawal. Immediately became hypoxic with aspiration episode and briefly needed supplemental oxygen, then was sent to [facility] for evaluation. Patient's mental status was back to baseline on 1/4 PM. Last drink was 04/16/24 prior to admission to [facility] on same day. CT head neg. -CIWA protocol with Ativan, discontinued as pt non-scoring -Folic acid & thiamine PO daily -Seizure precautions -SW consulted for AUD. Assessment & Plan (04/22/2024 9:22 AM EST): Patient was brought from [facility] due to developing altered mental status (lethargy) after x1 valium for alcohol withdrawal. Immediately became hypoxic with aspiration episode and briefly needed supplemental oxygen, then was sent to [facility] for evaluation. Patient's mental status was back to baseline on 1/4 PM. Last drink was 04/16/24 prior to admission to [facility] on same day. CT head neg. -CIWA protocol with Ativan, discontinued as pt non-scoring -Folic acid & thiamine PO daily -Seizure precautions -SW consulted for AUD. Assessment & Plan (04/21/2024 9:58 AM EST): Patient was brought from [facility] due to developing altered mental status (lethargy) after x1 valium for alcohol withdrawal. Immediately became hypoxic with aspiration episode and briefly needed supplemental oxygen, then was sent to [facility] for evaluation. Patient's mental status was back to baseline on 1/4 PM. Last drink was 04/16/24 prior to admission to [facility] on same day. CT head neg. -CIWA protocol with Ativan, discontinued as pt non-scoring -Folic acid & thiamine PO daily -Seizure precautions -SW consulted for AUD. Assessment & Plan (04/20/2024 11:03 AM EST): Patient was brought from [facility] due to developing altered mental status (lethargy) after x1 valium for alcohol withdrawal. Immediately became hypoxic with aspiration episode and briefly needed supplemental oxygen, then was sent to [facility] for evaluation. Patient's mental status was back to baseline on 1/4 PM. Last drink was 04/16/24 prior to admission to [facility] on same day. CT head neg. -CIWA protocol with Ativan -Folic acid & thiamine PO daily -Seizure precautions -SW consulted for AUD. Assessment & Plan (04/19/2024 12:45 PM EST): Patient was brought from [facility] due to developing altered mental status (lethargy) after x1 valium for alcohol withdrawal. Immediately became hypoxic with aspiration episode and briefly needed supplemental oxygen, then was sent to [facility] for evaluation. Patient's mental status was back to baseline on 04/18 PM. Last drink was 04/16/24 prior to admission to [facility] on same day. CT head neg. -[facility] protocol with Ativan -Folic acid & thiamine PO daily -Seizure precautions - consulted for alcoholism. Assessment & Plan (04/18/2024 9:52 PM EST): 58 years old male, chronic alcohol abuse and GERD, transferred from [facility]. Patient has been admitted for alcohol detoxification, patient received Valium and post therapy developed respiratory distress, developed hypoxia and transferred to [facility] via EMS Plan: 1-[facility] protocol 2- replacement [...] Flagyl, Rocephin. Patient was recently admitted at [facility] for AHRF and Suicidal ideations. -04/20/24 CT [...] Flagyl, Rocephin. Patient was recently admitted at [facility] for AHRF and Suicidal ideations. -04/20/24 CT [...] Flagyl, Rocephin. Patient was recently admitted at [facility] for AHRF and Suicidal ideations. -04/20/24 CT [...] Flagyl, Rocephin. Patient was recently admitted at [facility] for AHRF and Suicidal ideations. -04/20/24 CT [...] Flagyl, Rocephin. Patient was recently admitted at [facility] for AHRF and Suicidal ideations. -MRSA PCR [...] Flagyl, Rocephin. Patient was recently admitted at [facility] for AHRF and Suicidal ideations. -MRSA PCR [...] drink = 0.6 oz pur e alcohol) [facility] Utilities Answer Date Recorded In the past 12 months has th e [employer], gas, oil, or water company threatened to [...] Completed 06/05/2024 Procedures * Due to [place] [employer] law, this organization might not be sharing [...] Health Maintenance Results * Due to [place] [employer] law, this organization might not be sharing negative HIV tests. * Hepatitis C Antibody w/Reflex to HCV RNA, Quantitative PCR (06/05/2024 4:23 PM EST) Hepatitis C Antibody NON-REACT BRISSA NON-REACT BRISSA 06/06/2024 9:01 AM EST Harry [facility] David Comment: HCV antibody was non-reactive. There is no laboratory evidence of HCV infection. In most cases, no further action is required. However, if recent HCV exposure is suspected, a test for HCV RNA (test code 42492) is suggested. For additional information please refer to http://education.[employer])/faq/NFU41l4 (This link is being provided for informational/ educational purposes only.) Blood Structure of peripheral vein / Unknown Venipuncture / Unknown 06/05/2024 4:23 PM EST 06/05/2024 4:44 PM EST Narrative [facility] - 06/06/2024 9:01 AM EST [facility] Received Date: us John Mello MD LAB BLOOD ORDERABLES Final Re sult TAMELA [facility] [address], [place] [address], [facility] [address] [facility] [address], [place] [address], * CT Abdomen Pelvis with Contrast (04/21/2024 [...] to obtain the completed interpretation. Workstation ID: [id number] Narrative 04/22/2024 9:27 AM EST EXAMINATION: CT [...] streak artifact from bilateral total hip arthroplasty. NURSE CHARGE RN TOPOGRAM: As below LUNG BASES: Motion degraded. [...] outside the cortical bone. Resulting Agency Comment [id number] Procedure Note Carol Ann Mccloud MD - [...] metallic streak artifact from bilateraltotal hip arthroplasty. NURSE CHARGE RN TOPOGRAM: As below LUNG BASES: Motion degraded. [...] possible to obtain thecompleted interpretation. Workstation ID: [id number] us Nikolai Gonsalez MD IMG CT PROCEDURES [...] to obtain the completed interpretation. Workstation ID: [id number] Narrative 04/21/2024 7:45 AM EST Indication: Lung [...] changes in the spine. Resulting Agency Comment [id number] Procedure Note Anastasiai Mcnamara MD - 04/21/2024 Indication: Lung nodule, [...] possible to obtain thecompleted interpretation. Workstation ID: [id number] Nikolai Gonsalez MD IMG CT PROCEDURES Final Result from Last 3 Months or Most Recently Relevant to Health Maintenance Insurance [facility] Advance Directives Documents on File Type Date Recorded Patient Biology Adjunct Instructor Expl anation Health Care Proxy 04/20/2024 3:47 [...] Castro Sister Health Care Agent Care Teams Stores Assistant Relationship Specialty Start Date End Date Patient, Has No Pcp Or Ref DO NOT EDIT THIS RECORD VIA PROVIDER ON THE FLY PCP - General Instructor [employer] 04/17/24
--- OUTSIDE RECORDS SUMMARY | 2024-11-11 14:35 | XMS_ITS | Encounter Summary ---
Author Organization [facility] Address [address] [address] Phone Care Team Providers Care Ferryboat Ticket Taker Name Role Phone Pacheco Vargas DO Primary Care Provider [phone] Manuel Foy Primary Care Provider + Encounter Details Date Type Department Care Team (Late st Contact Info) Description 04/09/2018 Transcribe Orders [facility] Specimen Processing [address] [place] [address] Pacheco Vargas DO [address] [place] [address] [place] [address] [email or web address] Routine general medical examination at a health [...] EST) WBC 7.46 3.40 - 11.20 K/uL [facility] RBC 4.65 4.50 - 5.50 M/uL [facility] HGB 12.8(L) 13.0 - 17.0 g/dL [facility] HCT 39.9(L) 40.0 - 51.0 % [facility] PLT 256 130 - 400 K/uL [facility] MCV 85.8 79.0 - 98.0 fL [facility] MCH 27.5 27.0 - 34.8 pg [facility] MCHC 32.1 31.5 - 36.0 g/dL [facility] RDW 15.5(H) 10.8 - 14.6 % [facility] MPV 11.9 9.4 - 12.4 fl [facility] NRBC 0.00 0.00 /100 WBCs [facility] ABSOLUTE NRBC 0.00 0.00 K/uL [facility] Blood 04/09/2018 10:0 3 AM EST 04/09/2018 11:52 AM EST us Pacheco Vargas DO LAB BLOOD ORDERABLES Final Resul t Performing Organization Address City/State/[facility] Co de Phone Number [facility] [address] [place] [address] documented in this encounter Visit Diagnoses Diagnosis [...] documented as of this encounter Care Teams Ferryboat Ticket Taker Relationship Specialty Start Date End Date Pacheco Vargas DO PCP - General Internal Medicine 04/09/18 02/22/24 Manuel Foy PA [address] [place] [address] PCP - General Physician Medical Instructor 02/23/24 documented as of this encounter Additional Source Comments The information contained in this document represents components of the legal health record. It is not the complete legal health record.[facility]
--- OUTSIDE RECORDS SUMMARY | 2024-11-11 14:35 | XMS_ITS | Patient Health Record ---
Author Organization [facility] Address [address], [place] [id number] Care Team Providers Care Inclusion Teacher Name Role Phone [facility] Primary Care Provider Josiane Mohr Unavailable Edda Granado Unavailable Reason For Referral No Information Encounters Encounter Location Date Provider Diagnosis [facility] [address] [place] [id number] 09/14/2024 Edda Granado [facility] [address] [place] [id number] 10/06/2024 Edda Granado [facility] [id number] 10/15/2024 Edda Granado Plan Of Treatment No Information Insurance Providers Payer Name Payer Address Payer Phone Subscriber Number Group Number Insured Name Patient Relationship to Insured Coverage Start Date Coverage End Date [place] Medicaid Standard [address] [place] [address] [id number] Chuy Castro Self - patient is the insured
--- OUTSIDE RECORDS SUMMARY | 2024-11-11 14:35 | XMS_ITS | Clinical Summary ---
Author Organization [facility] it Address [address] [place] [address] Care Team Providers Care Food Dehydrator Operator Name Role Phone Unavailable Primary Care Provider [...]
== END 2024-11-11 14:28 | disposition home or self-care (01) ==
LOC: HO.HPS 13:53
PROVIDERS: PCP Physician Assistant; Visit Provider Internal Medicine
DX: E66.01 Morbid (severe) obesity due to excess calories (principal); J42 Unspecified chronic bronchitis; G47.33 Obstructive sleep apnea (adult) (pediatric); J96.21 Acute and chronic respiratory failure with hypoxia; F19.10 Other psychoactive substance abuse, uncomplicated
CPT/HCPCS: 99214

== ENCOUNTER → 2024-11-11 13:52 | Outpatient (BNVA) | payer MEDICARE, MEDICAID, SELFPAY | PROVIDERS: PCP Physician Assistant; Visit Provider Internal Medicine | DX: J96.21 Acute and chronic respiratory failure with hypoxia (principal); E66.01 Morbid (severe) obesity due to excess calories; J42 Unspecified chronic bronchitis; G47.33 Obstructive sleep apnea (adult) (pediatric); F19.10 Other psychoactive substance abuse, uncomplicated | CPT/HCPCS: 99212 ==

== ENCOUNTER 2024-12-08 14:01 | Outpatient (AMB) | payer MEDICARE, MEDICAID, SELFPAY ==
--- OUTSIDE RECORDS SUMMARY | 2024-10-29 06:20 | XMS_ITS ---
Author Organization [facility] Address [address] [place] [id number] Care Team Providers Care Dredge Operator Supervisor Name Role Phone [facility] Primary Care Provider Josiane Mohr Unavailable [phone] Edda Granado Unavailable [phone] Encounters Encounter Location Date Provider Diagnosis [facility] [address] [place] [id number] 10/29/2024 Edda Granado Plan Of Treatment No Information Progress Notes * OLIVOChuy FernandezDOB:1965 (59 yo M)Acc No.[id number]:10/29/2024 Case Management Patient: Chuy VILLAREAL Provider: Ayaan Granado :1965 A ge:58 Y S ex:Male Date:10/29/2024 Address:[address] [place], [place] [id number] Pcp:[facility] Subjective: * Chief Complaints: * * Medical History: Objective: Assessment: Plan: * Treatment: * Images: Billing Information: * Visit Code: * Procedure Codes: Care Plan Details* * Electronic signature of Anthony Granado on 12/08/2024 at 02:59 PM EDT Sign off status: Pending * Provider: Ayaan Granado Date: 10/29/2024 Generated for [place] ng/Faxing/eTransmitting on: 12/08/2024 02:59 PM EDT
--- NOTE | 2024-12-08 14:12 | MHC.OFFVIS ---
Vital Signs 12/08/24 14:13 Height 5 ft 7 in Weight 374 lb 12.573 oz BMI 58.7 BP 140/68 H Blood Pressure Location Lt brachial Position Sitting Pulse 71 Pulse Source Pulse Oximeter Pulse Oximetry (%) 94 Oxygen Delivery Method Nasal Cannula Oxygen Flow Rate 2 Intake Visit Reasons: COPD Intake Note: pt is here for follow up and has not been using cpap at the [facility], it was not supplied, he is using oxygen at night on 2 liters and most of the time throughout the day. Developer Designer Required: No Allergies oxycodone Adverse Reaction (Unknown, Verified 12/08/24 15:05) GI upset Medication List - Last Reconciled 12/08/24 by Harini Sylvester MD albuterol sulfate 90 mcg/actuation (Ventolin HFA) 2 puffs inhalation RQ4H PRN 30 days baclofen 10 mg PO BID 30 days clonidine HCl 0.1 mg PO TID 90 days clotrimazole-betamethasone 1-0.05 % 1 appl topical BID PRN duloxetine 30 mg PO DAILY 90 days furosemide 40 mg PO DAILY 30 days hydroxyzine pamoate 50 mg PO TID PRN 90 days ibuprofen 600 mg PO TID PRN ketoconazole 2% 1 appl topical 3XW 4 weeks lidocaine 4% (Lidocaine Pain Relief) 1 patch See Protocol transdermal DAILY meloxicam 15 mg PO BEDTIME mirtazapine 45 mg PO BEDTIME 90 days omeprazole 20 mg PO DAILY@0630 90 days oxcarbazepine 150 mg PO BID 90 days [POWER SCOOTER As directed] pregabalin (Lyrica) 75 mg PO BID trazodone 200 mg PO BEDTIME umeclidinium-vilanterol 62.5-25 mcg/actuation (Anoro Ellipta) 1 ea inhalation DAILY 30 days Do you need a note to return to daycare/school/sports/work: No HPI HPI COPD: Details: Mr Castro, 59 years old gentleman, with morbid obesity, obstructive sleep apnea, Hypoxemic Respiratory failure, history of substance abuse , and multiple comorbidities. Is here for short-term follow-up. He is still waiting to get BiPAP and start using it. He continues to use O2 2 L/minute 24 hours a day. Denies any respiratory distress but he gets short of breath on minimal walking. HE SAY IS HE IS NOT SMOKING ANYMORE. AND NOT USING ANY COCAINE OR OTHER SUBSTANCES, as he is in a protected space/ long-term nursing facility. [facility] Medical History Substance abuse Varicose veins of right lower extremity with inflammation Morbid (severe) obesity due to excess calories COPD (chronic obstructive pulmonary disease) Cocaine use disorder MDD (major depressive disorder) Homeless ANA (obstructive sleep apnea) Varicose veins of right lower extremity Peripheral vascular disease GERD (gastroesophageal reflux disease) History of pernicious anemia Hx of acute respiratory failure Edema Back pain Arthritis History of DVT of lower extremity Depression ANA treated with BiPAP Right-sided heart failure Surgical History History of incisional hernia repair Hx of esophagogastroduodenoscopy Hx of colonoscopy History of total right knee replacement S/P right knee arthroscopy Hx of tracheostomy Hx of total hip arthroplasty History of colostomy reversal History of colon resection H/O gastric bypass Family History Father Displacement of central venous catheter (CVC) Mother Unknown family medical history Social History Household Members: Other Household Members Other:: jail house Housing: Other Housing Other:: jail house Do you presently have visiting nurse or other home services: No Alcohol intake: former Year quit: 2024 Patient Tobacco Use Status: Current everyday Tobacco user Tobacco use type: Cigarette Cigarettes Per Day: 5 Years Smoked: 40 e-Cigarette/Vaping Use: Currently Using Second Hand Smoke Exposure: Yes Substance Use Type: Crack/Cocaine service: No Sexual orientation: Straight/Heterosexual Cognitive needs: No Hearing needs: No Vision needs: Yes (Reading glasses) Review of Systems Const All systems reviewed & are unremarkable except as noted in HPI and below Eyes Reports no additional complaints ENT Reports no additional complaints Card Denies chest pain, Denies irregular heart rhythm and Denies leg edema Resp Reports as per HPI GI Reports heartburn Details: Being treated for GERD symptoms Reports no additional complaints Musc Reports back pain and Reports arthralgias Skin/Breast Reports system reviewed and no additional complaints, except as documented Neuro Reports no additional complaints Endo Reports no additional complaints Steven/Lymph Reports no additional complaints Aller/Immun Reports no additional complaints Physical Exam Vital Signs: Last Vital Signs Pulse 71 12/08/24 14:13 BP 140/68 H 12/08/24 14:13 Pulse Ox 94 12/08/24 14:13 Oxygen Delivery Method Nasal Cannula 12/08/24 14:13 Oxygen Flow Rate 2 12/08/24 14:13 BMI result Body Mass Index 58.7 He is morbidly obese, neck size 18 in,, Mallampati scale 4 Const General: comfortable, no acute distress, alert and awake Orientation/consciousness: patient oriented x3 HEENT Head: Yes normal to inspection General nose exam: No nasal polyps present and No nasal discharge present Face and sinus: Yes sinuses nontender Mouth: oropharynx abnormals (Narrow and crowded, Mallampati scale 4) Throat: Yes posterior oropharynx normal Eyes General: appearance normal, both eyes and all related structures Neck Neck: Yes normal visual inspection, Yes no lymphadenopathy, Yes trachea midline, Yes no JVD and Yes other (Neck circumference 18 in) Thyroid: Thyroid normal Chest Chest palpation & inspection: normal inspection of the chest, normal palpation of entire chest wall and no tenderness Resp Other: Breath sounds are somewhat distant with prolonged expiratory phase. There are scattered inspiratory wheezes. No crepitations. Cardio Palpation: normal PMI Rate: regular rate Rhythm: regular rhythm Heart sounds: no gallops and no murmurs GI Other: Abdomen is obese and protuberant Palpation (GI): Soft to palpation, Tenderness to palpation present (GI), No hepatosplenomegaly present, no masses and no aortic enlargement Auscultation: normal bowel sounds Back/Spine/Pelvis Thoracic/Lumbar Spine: thoracic and lumbar spine normal to inspection and thoraco-lumbar ROM limited Skin General skin exam: no rashes or lesions noted Neuro General: patient oriented x3 and no focal motor deficits Cranial nerves: Yes CN's II-XII intact bilaterally Extrem General: Yes normal to inspection, Yes no clubbing, cyanosis or edema, Yes no calf tenderness and Yes edema (Trace of pitting edema around the ankles) Psych Appearance: grossly normal and well kempt Speech and movement: Normal speech and movement present Assessment & Plan Assessment & Plan (1) COPD (chronic obstructive pulmonary disease): Comment: Patient is a lifelong smoker. Has cut. Down to 7-8 . SINCE HOSPITALIZATION AND NOW AT THE [facility] HE IS NOT ALLOWED TO SMOKE. Denies any attacks of wheezing, still has mild intermittent cough. Code(s): J44.9 - Chronic obstructive pulmonary disease, unspecified Category: Medical Qualifiers: COPD type: chronic bronchitis Chronic bronchitis type: unspecified Qualified Code(s): J42 - Unspecified chronic bronchitis Plan: Advised to continue using Anoro Ellipta 1 inhalation daily. And Ventolin HFA 2 puffs Q 4-6 hours p.r.n.. (2) Tobacco dependence: Comment: Patient has longstanding history of smoking now has cut down to 7 cigarettes a day Code(s): F17.200 - Nicotine dependence, unspecified, uncomplicated Category: Medical Plan: Discussed with him and even though he is allowed to smoke up to 7 cigarettes a day the best thing is to completely quit. (3) Acute and chronic respiratory failure with hypoxia: Comment: Patient does have ongoing hypoxemia due to hypoxic respiratory failure. This is consistent with morbid obesity and restrictive lung disease. Code(s): J96.21 - Acute and chronic respiratory failure with hypoxia Category: Medical Plan: Patient is advised to keep using oxygen 2 L/minute during the night and also daytime except for short breaks. Hopefully situation will change when he does get the BiPAP device and starts using it regularly at night. (4) ANA (obstructive sleep apnea): Comment: He is a known case of obstructive sleep apnea and was using the BiPAP from his last sleep study in 2019. Lost his CPAP/BiPAP machine when he was evicted from his apartment last year. He does have interrupted sleep at night and excessive daytime somnolence during the daytime Sleep study with CPAP titration in the sleep lab Has prove that he has very severe obstructive sleep apnea and nocturnal hypoxemia. He needs to use BiPAP with pressure setting of 20/12 cm and with oxygen 2- 6 L/minute Code(s): G47.33 - Obstructive sleep apnea (adult) (pediatric) Category: Medical Plan: He has not gotten the BiPAP equipment yet, The [facility] staff is trying to get a BiPAP machine for him. He will start using it whole night at least for 8-10 hours per day as soon as he gets it. (5) Substance abuse: Comment: This gentleman has history of using opiates, cocaine . and other staff , leading to his eviction from the apartment and he lived has a homeless until his recent admission to the hospital . Now he is in a [facility] facility, until he has a place for living Code(s): F19.10 - Other psychoactive substance abuse, uncomplicated Category: Medical Plan: Talked to him about substance abuse and he say is he is not going back to using any illicit drugs anymore Coding Level of Care Code Est Pt Level 4 (83126) Diagnoses Chronic bronchitis, unspecified chronic bronchitis type J42 COPD type: chronic bronchitis Chronic bronchitis type: unspecified Tobacco dependence F17.200 Acute and chronic respiratory failure with hypoxia J96.21 ANA (obstructive sleep apnea) G47.33 Substance abuse F19.10
[2024-12-08 14:13] VITALS: BP 140/68; PULSE 71; O2SAT 94; BMI 58.7
--- OUTSIDE RECORDS SUMMARY | 2024-12-08 14:58 | XMS_ITS | Encounter Summary ---
Author Organization [facility] Address [address] [place] [address] [place] [address] Phone Care Team Providers Care Popcorn Attendant Name Role Phone Manuel Foy Primary Care Provider + Encounter Details Date Type Department Care Team (Late st Contact Info) Description 02/28/2024 Procedure Pass [facility] [address] [place] [address] Social History Tobacco Use Types Packs/Day Years [...] documented as of this encounter Care Teams Popcorn Attendant Relationship Specialty Start Date End Date Manuel Foy PA [address] [place] [address] PCP - General Physician Golf Caddy 02/23/24 documented as of this encounter Additional Source Comments The information contained in this document represents components of the legal health record. It is not the complete legal health record.[facility]
--- OUTSIDE RECORDS SUMMARY | 2024-12-08 14:58 | XMS_ITS | Encounter Summary ---
Author Organization [facility] Address [address] [place] [address] [place] [address] Phone Care Team Providers Care Bond Clerk Name Role Phone Manuel Foy Primary Care Provider + Encounter Details Date Type Department Care Team (Late st Contact Info) Description 02/23/2024 Procedure Pass [facility] [address] [place] [address] Social History Tobacco Use Types Packs/Day Years [...] 1:31 PM Maria G Oconnell RN * [place] Suicide Severity Rating Scale (Screener/Recent Self-Report) Question [...] documented as of this encounter Care Teams Bond Clerk Relationship Specialty Start Date End Date Manuel Foy PA [facility] [place] [address] PCP - General Physician Solution Consultant 02/23/24 documented as of this encounter Additional Source Comments The information contained in this document represents components of the legal health record. It is not the complete legal health record.[facility]
--- OUTSIDE RECORDS SUMMARY | 2024-12-08 14:58 | XMS_ITS | Encounter Summary ---
Author Organization [facility] Address [address] [place] [address] Care Team Providers Care Silverware Washer Name Role Phone Paulo Schwarz Primary Care Provider [phone] Encounter Details Date Type Department Care Team ([facility] st Contact Info) Description 09/19/2012 Orders Only [facility] Orthopedic Surgery [address] [address] Suresh Velazquez MD [address] [place] [address] Social History Tobacco Use Types Packs/Day Years [...] thigh documented in this encounter Care Teams Silverware Washer Relationship Specialty Start Date End Date Paulo Schwarz [address] [place] [address] [place] [address] PCP - General 01/07/08 documented as of this encounter
--- OUTSIDE RECORDS SUMMARY | 2024-12-08 14:58 | XMS_ITS | Patient Health Record ---
Author Organization [facility] Address [address] [place] [address] Care Team Providers Care Organizational Psychologist Name Role Phone Karishma(inactive) Paulo KITCHEN Primary Care Provider U Jaswinder George Jr Unavailable [phone] Reason For Referral No Information Medications Medication [...] Problem Status W/U Status Risk Notes Problem [id number] Rectal bleeding (K62.5) Active confirmed Problem [id number] Jordan's esophagus without dysplasia (K22.70) Active confirmed Plan Of Treatment Future Test Test Name Order Date UPPER GI ENDOSCOPY 06/24/2015 COLONOSCOPY 06/24/2015 Insurance Providers Payer Name Payer Address Payer Phone Subscriber Number Group Number Insured Name Patient Relationship to Insured Coverage Start Date Coverage End Date MEDICARE OF [place] [address] [place] [id number] WES OLIVO Self - patient is the insured MEDICAID OF [facility] [address] [place] [phone] [id number] WES OLIVO Self - patient is the insured Medical (General) History Medical History History ICD Code Jordan's esophagus right knee arthritis Denies [place],DM,CVA,Lung disease,renal dise ase Surgical History Surgery Date(Month/Year) gastric bypass hernia repair left hip replacement right hip replacement trachiotomy colostomy
--- OUTSIDE RECORDS SUMMARY | 2024-12-08 14:58 | XMS_ITS | Patient Health Record ---
Author Organization [facility] Address [address] [place], [place] [id number] Care Team Providers Care Playback Operator Name Role Phone [facility] Primary Care Provider [phone] Josiane Mohr Unavailable [phone] Edda Granado Unavailable [phone] Reason For Referral No Information Encounters Encounter Location Date Provider Diagnosis [facility] [address] [place] [phone] 09/14/2024 Edda Granado [facility] [address] [place] [phone] 10/06/2024 Edda Granado [facility] [phone] 10/15/2024 Edda Granado Plan Of Treatment No Information Insurance Providers Payer Name Payer Address Payer Phone Subscriber Number Group Number Insured Name Patient Relationship to Insured Coverage Start Date Coverage End Date [place] Medicaid Standard [address] [place] [address] [phone] [id number] Chuy Castro Self - patient is the insured
--- OUTSIDE RECORDS SUMMARY | 2024-12-08 14:58 | XMS_ITS | Encounter Summary ---
Author Organization [facility] Address [address] [place] [address] Care Team Providers Care Waste Paper Hammermill Operator Name Role Phone Paulo Schwarz Primary Care Provider [phone] Encounter Details Date Type Department Care Team (Late st Contact Info) Description 04/22/2017 Orders Only [facility] Pre-Admission Testing [address] [place] [address] Lexie Rust NP Social History Tobacco Use [...] of this encounter Procedures * Due to [place] state law, this organization might not [...] in this encounter Results * Due to [place] state law, this organization might not be sharing negative HIV tests. * MRSA CULTURE SCREEN, NASAL ONLY (04/22/2017 12:22 PM EST) Methicillin Resistant Staphylococcus Aureus Screen SEE NOTE [facility] Comment: MRSA CULTURE SCREEN MICRO NUMBER: [id number] TEST STATUS: FINAL SPECIMEN SOURCE: NOT GIVEN SPECIMEN QUALITY: ADEQUATE RESULT: No methicillin resistant Staphylococcus aureus (MRSA) isolated. 04/22/2017 12:2 2 PM EST 04/22/2017 5:52 PM EST Narrative Resulting Agency Comment [id number] Lexie Rust HEAVY EQUIPMENT RENTAL MANAGER LABORATORY Final Result Performing Organization Address City/State/[facility] Co de Phone Number [facility] [address] [place] [address] * EKG-TO BE READ AND BILLED BY [...] Final Result Performing Organization Address [facility] Co de Phone Number [facility] * CULTURE, URINE, ROUTINE (04/22/2017 9:54 AM EST) Bacteria culture (Urine) SEE NOTE [facility] Comment: CULTURE, URINE, ROUTINE MICRO NUMBER: [id number] TEST STATUS: FINAL SPECIMEN SOURCE: NOT GIVEN SPECIMEN QUALITY: ADEQUATE RESULT: Single organism less than 10,000 CFU/mL isolated. These organisms, commonly found on external and internal genitalia, are considered colonizers. No further testing performed. 04/22/2017 9:54 AM EST 04/22/2017 2:49 PM EST Narrative Resulting Agency Comment [id number] us Lexie Rust NP LABORATORY Final Result Performing Organization Address [facility] de Phone Number [facility] [address] [place] [address] * PROTHROMBIN TIME (PT) (INR), BLOOD (04/22/2017 9:54 AM EST) INR 1.0 [facility] Comment: Reference Range 0.9-1.1 Moderate-intensity Warfarin Therapy 2.0-3.0 Higher-intensity Warfarin Therapy 3.0-4.0 PT 10.3 9.0 - 11.5 sec [facility] Comment: For more information on this test, go to: [email or web address] 04/22/2017 9:54 AM EST 04/22/2017 2:49 PM EST Narrative Resulting Agency Comment [id number] us Lexie Rust NP LAB SAME DAY RESULT Final Re sult Performing Organization Address [facility] Co de Phone Number [facility] [address] [place] [address] * (ABNORMAL) CBC INCLUDES DIFFERENTIAL AND PLATELET [...] 2:49 PM EST Narrative Resulting Agency Comment [id number] Lexie Rust HEAVY EQUIPMENT RENTAL MANAGER LAB SAME DAY RESULT Final Re sult Performing Organization Address City/State/[facility] Co de Phone Number [facility] [address] [place] [address] * (ABNORMAL) BASIC METABOLIC PANEL WITH (GFR) (04/22/2017 9:54 AM EST) Glucose 79 65 - 99 mg/dL [facility] Comment:Fasting reference in terval Urea Nitrogen Blood (BUN) 6(L) 7 - 25 mg/dL [facility] Creatinine 0.88 0.70 - 1.33 mg/dL [facility] Comment: For patients >49 years of age, the reference limit for Creatinine is approximately 13% higher for people identified as -Citizen Of [place]. GFR 100 > OR = 60 mL/min/1. [...] needs for GFR calculation. Resulting Agency Comment [id number] us Lexie Rust NP LABORATORY Final Result Performing Organization Address City/State/[facility] Co de Phone Number [facility] [address] [place] [address] documented in this encounter Visit Diagnoses Diagnosis Pre-operative examination Preoperative examination, unspecified Primary osteoarthritis of right knee Primary localized osteoarthrosis, lower leg Sleep apnea, unspecified type Increased frequency of urination Urinary frequency documented in this encounter Care Teams Waste Paper Hammermill Operator Relationship Specialty Start Date End Date Paulo Schwarz [address] [place] [address] [place] [address] PCP - General 01/07/08 documented as of this encounter
--- OUTSIDE RECORDS SUMMARY | 2024-12-08 14:58 | XMS_ITS | Encounter Summary ---
Author Organization [facility] Address [address] [address] Phone Care Team Providers Care Development Team Lead Name Role Phone Pacheco Vargas DO Primary Care Provider [phone] Manuel Foy Primary Care Provider + Encounter Details Date Type Department Care Team (Late st Contact Info) Description 04/09/2018 Transcribe Orders [facility] Specimen Processing [address] [place] [address] Pacheco Vargas DO [address] [facility] [place] [address] [place] [address] [email or web address] Routine general medical examination at a [...] EST) WBC 7.46 3.40 - 11.20 K/uL [facility] RBC 4.65 4.50 - 5.50 M/uL [facility] HGB 12.8(L) 13.0 - 17.0 g/dL [facility] HCT 39.9(L) 40.0 - 51.0 % [facility] PLT 256 130 - 400 K/uL [facility] MCV 85.8 79.0 - 98.0 fL [facility] MCH 27.5 27.0 - 34.8 pg [facility] MCHC 32.1 31.5 - 36.0 g/dL [facility] RDW 15.5(H) 10.8 - 14.6 % [facility] MPV 11.9 9.4 - 12.4 fl [facility] NRBC 0.00 0.00 /100 WBCs [facility] ABSOLUTE NRBC 0.00 0.00 K/uL [facility] Blood 04/09/2018 10:0 3 AM EST 04/09/2018 11:52 AM EST us Pacheco Vargas DO LAB BLOOD ORDERABLES Final Resul t Performing Organization Address City/State/[facility] Co de Phone Number [facility] [address] [place] [address] documented in this encounter Visit Diagnoses Diagnosis [...] documented as of this encounter Care Teams Development Team Lead Relationship Specialty Start Date End Date Pacheco Vargas DO PCP - General Internal Medicine 04/09/18 02/22/24 Manuel Foy PA [address] [place] [address] PCP - General Physician Hip Hop Dance Instructor 02/23/24 documented as of this encounter Additional Source Comments The information contained in this document represents components of the legal health record. It is not the complete legal health record.[facility]
--- OUTSIDE RECORDS SUMMARY | 2024-12-08 14:58 | XMS_ITS | Encounter Summary ---
Author Organization [facility] Address [address] [place] [address] Care Team Providers Care Digital Marketing Lead Name Role Phone Paulo Schwarz Primary Care Provider [phone] Encounter Details Date Type Department Care Team ([facility] st Contact Info) Description 09/29/2019 Orders Only [facility] Orthopedic Surgery [address] [facility] [address] [place] [address] Suresh Velazquez MD [address] [place] [address] Social History Tobacco Use Types Packs/Day Years [...] this encounter Results * Due to [place] state law, this organization might not be [...] dated 05/06/2017 and 03/21/2017 has become available. The moderate sized right suprapatellar joint effusion and probable intra-articular loose bodies appear new. : AP BILATERAL KNEES AND X-RAY RIGHT KNEE Comparison: None FINDINGS: Frontal view of the bilateral knees and lateral and sunrise views of the right knee demonstrate a right total knee arthroplasty. No periprosthetic lucency to suggest loosening or infection. Moderate sized right suprapatellar joint effusion. Probable intra-articular loose bodies within the anterior joint space on the right. There is moderate medial and lateral joint space narrowing of the left knee. Osteochondroma projecting from the left medial metaphyseal region of the tibia. Adjacent soft tissue [...] detailed. Narrative 11/16/2019 10:14 AM EDT EXAM: AP BILATERAL KNEES AND X-RAY RIGHT KNEE Comparison: None FINDINGS: Frontal view of the bilateral knees and lateral and sunrise views of the right knee demonstrate a right total knee arthroplasty. No periprosthetic lucency to suggest loosening or infection. Moderate sized right suprapatellar joint effusion. Probable intra-articular loose bodies within the anterior joint space on the right. There is moderate medial and lateral joint space narrowing of the left knee. Osteochondroma projecting from the left medial metaphyseal region of the tibia. Adjacent soft tissue [...] chronicity documented in this encounter Care Teams Digital Marketing Lead Relationship Specialty Start Date End Date Paulo Schwarz [address] [place] [address] [place] [address] PCP - General 01/07/08 documented as of this encounter
--- OUTSIDE RECORDS SUMMARY | 2024-12-08 14:58 | XMS_ITS | Encounter Summary ---
Author Organization [facility] Address [address] [place] [address] [place] [id number] Phone Care Team Providers Care Swimming Pool Serviceperson Name Role Phone Manuel Foy Primary Care Provider + Encounter Details Date Type Department Care Team (Late st Contact Info) Description 02/23/2024 Procedure Pass [facility] [address] [place] [address] Social History Tobacco Use Types Packs/Day Years [...] 1:31 PM Maria G Oconnell RN * [place] Suicide Severity Rating Scale (Screener/Recent Self-Report) Question [...] documented as of this encounter Care Teams Swimming Pool Serviceperson Relationship Specialty Start Date End Date Manuel Foy PA [facility] [place] [address] PCP - General Physician Printer Operator 02/23/24 documented as of this encounter Additional Source Comments The information contained in this document represents components of the legal health record. It is not the complete legal health record.[facility]
--- OUTSIDE RECORDS SUMMARY | 2024-12-08 14:59 | XMS_ITS | Clinical Summary ---
Author Organization [facility] it Address [address] [place] [address] Care Team Providers Care Practice Physician Name Role Phone Unavailable Primary Care Provider [...]
--- OUTSIDE RECORDS SUMMARY | 2024-12-08 14:59 | XMS_ITS | Clinical Summary ---
Author Organization [facility] Address [address] [place] [address] Care Team Providers Care Savings Counselor Name Role Phone Patient, Has No Pcp [...] AM EST): Patient with COPD presenting from [facility] for hypoxia after he was found to [...] a PCP but does not have a solution maker, may benefit from outpatient referral to decrease incidence of hospitalization. On discharge: -prednisone 40mg daily through 05/26 -Ambulatory pulmonology referral placed Assessment & Plan (05/24/2024 10:55 AM EST): Patient with COPD presenting from [facility] for hypoxia after he was found to [...] a PCP but does not have a solution maker, may benefit from outpatient referral to decrease incidence of hospitalization. -prednisone 40mg daily x 5 days (D1: 27) -duonebs q4hr PRN -albuterol 2.5mg neb q4hr prn -maintain SpO2 88-92% -Ambulatory pulmonology referral on discharge Assessment & Plan (05/23/2024 3:55 PM EST): Patient with COPD presenting from [facility] for hypoxia after he was found to [...] a PCP but does not have a solution maker, may benefit from outpatient referral to decrease incidence of hospitalization. -prednisone 40mg daily x 5 days (D1: 05/22) -duonebs q4hr scheduled -albuterol 2.5mg neb q4hr prn -maintain SpO2 88-92% -may benefit from pulm outpatient Assessment & Plan (05/22/2024 1:21 PM EST): Patient with COPD presenting from [facility] for hypoxia after he was found to [...] a PCP but does not have a solution maker, may benefit from outpatient referral to decrease [...] 100 mg p.o. nightly Patient discharged to [facility] program, they will be assisting him with transitional housing. Discussed with patient that he will need a primary care doctor and he states [facility] program has been helping him organize [...] several hospital admissions for withdrawal, presented from [facility] of acute hypoxic respiratory failure 2/2 COPDe. [...] several hospital admissions for withdrawal, presented from [facility] of acute hypoxic respiratory failure 2/2 COPDe. [...] several hospital admissions for withdrawal, presented from [facility] of acute hypoxic respiratory failure 2/2 COPDe. He has been on a 2 day detox from cocaine and alcohol. Reports last use was 05/20. Was given 10 mg of Valium by [facility] due to withdrawal symptoms and CIWA 10. -CIWA with rescue valium -continue home clonidine 0.1mg 3 times a day prn -thiamine, folic acid, Mag Assessment & Plan (05/22/2024 1:21 PM EST): History of cocaine and OUD with several hospital admissions for withdrawal, presented from [facility] of acute hypoxic respiratory failure 2/2 COPDe. He has been on a 2 day detox from cocaine and alcohol. Reports last use was 05/20. Was given 10 mg of Valium by [facility] due to withdrawal symptoms and CIWA [...] but last alcohol intake > 1 week REMOTE SENSING ADVISOR to transfer here -continue home clonidine 0.1mg [...] but last alcohol intake > 1 week REMOTE SENSING ADVISOR to transfer here -continue home clonidine 0.1mg [...] but last alcohol intake > 1 week REMOTE SENSING ADVISOR to transfer here -continue home clonidine 0.1mg [...] but last alcohol intake > 1 week REMOTE SENSING ADVISOR to transfer here -continue home clonidine 0.1mg [...] but last alcohol intake > 1 week REMOTE SENSING ADVISOR to transfer here -continue home clonidine 0.1mg [...] on several psychotropic medications. Transferred to the [facility] from [facility] under [facility]. Was evaluated by [...] medications. Transferred to the hospital from [facility] under [place] [facility]. Was evaluated by [...] medications. Transferred to the hospital from [facility] under [facility] 21. I am unclear [...] medications. Transferred to the hospital from [facility] under [facility] 21. I am unclear [...] medications. Transferred to the hospital from [facility] under [place] 21. I am unclear at this time if he is also under Section 12 (hospitalized for 02/2024). Will need to clarify with psychiatry CL here - HOLD loxapine 100 mg [not noted in [facility] MAR] - Continue Zyprexa 10 mg daily [confirmed [facility]] - Hydroxyzine 25 mg every 8 hours as needed - Pregabalin 75 mg three times a day - Formal psych evaluation requested to help clarify Section and medications Assessment & Plan (04/24/2024 11:29 AM EST): No home meds, although patient has Clonidine as prescribed in the past for anxiety PRN. Was hospitalized at [facility] with suicidal ideations & ACRHF in Feb 2024. -Clonidine 0.1 mg 3 times a day PRN Assessment & Plan (04/23/2024 9:51 AM EST): No home meds, although patient has Clonidine as prescribed in the past for anxiety PRN. Was hospitalized at [facility] with suicidal ideations & ACRHF in Feb 2024. -Clonidine 0.1 mg 3 times a day PRN Assessment & Plan (04/22/2024 9:22 AM EST): No home meds, although patient has Clonidine as prescribed in the past for anxiety PRN. Was hospitalized at [facility] with suicidal ideations & ACRHF in Feb 2024. -Clonidine 0.1 mg 3 times a day PRN Assessment & Plan (04/21/2024 9:58 AM EST): No home meds, although patient has Clonidine as prescribed in the past for anxiety PRN. Was hospitalized at [facility] with suicidal ideations & ACRHF in Feb 2024. -Clonidine 0.1 mg 3 times a day PRN Assessment & Plan (04/20/2024 11:03 AM EST): No home meds, although patient has Clonidine as prescribed in the past for anxiety PRN. Was hospitalized at [facility] with suicidal ideations & ACRHF in Feb 2024. -Clonidine 0.1 mg 3 times a day PRN Assessment & Plan (04/19/2024 12:45 PM EST): No home meds, although patient has Clonidine as prescribed in the past for anxiety PRN. Was hospitalized at [facility] with suicidal ideations & ACRHF in Feb [...] to re-establish care with PCP. He said [facility] program is helping him with this [...] (05/22/2024 1:21 PM EST): Patient presenting from [facility] with acute hypoxia, placed on 4L. Initial [...] 11:29 AM EST): Patient was brought from [facility] due to developing altered mental status (lethargy) after x1 valium for alcohol withdrawal. Immediately became hypoxic with aspiration episode and briefly needed supplemental oxygen, then was sent to [facility] for evaluation. Patient's mental status was back to baseline on 1/4 PM. Last drink was 04/16/24 prior to admission to [facility] on same day. CT head neg. -CIWA protocol with Ativan, discontinued as pt non-scoring -Folic acid & thiamine PO daily -Seizure precautions -SW consulted for AUD. Assessment & Plan (04/23/2024 9:51 AM EST): Patient was brought from [facility] due to developing altered mental status (lethargy) after x1 valium for alcohol withdrawal. Immediately became hypoxic with aspiration episode and briefly needed supplemental oxygen, then was sent to [facility] for evaluation. Patient's mental status was back to baseline on 1/4 PM. Last drink was 04/16/24 prior to admission to [facility] on same day. CT head neg. -CIWA protocol with Ativan, discontinued as pt non-scoring -Folic acid & thiamine PO daily -Seizure precautions -SW consulted for AUD. Assessment & Plan (04/22/2024 9:22 AM EST): Patient was brought from [facility] due to developing altered mental status (lethargy) after x1 valium for alcohol withdrawal. Immediately became hypoxic with aspiration episode and briefly needed supplemental oxygen, then was sent to [facility] for evaluation. Patient's mental status was back to baseline on 1/4 PM. Last drink was 04/16/24 prior to admission to [facility] on same day. CT head neg. -CIWA protocol with Ativan, discontinued as pt non-scoring -Folic acid & thiamine PO daily -Seizure precautions -SW consulted for AUD. Assessment & Plan (04/21/2024 9:58 AM EST): Patient was brought from [facility] due to developing altered mental status (lethargy) after x1 valium for alcohol withdrawal. Immediately became hypoxic with aspiration episode and briefly needed supplemental oxygen, then was sent to [facility] for evaluation. Patient's mental status was back to baseline on 1/4 PM. Last drink was 04/16/24 prior to admission to [facility] on same day. CT head neg. -CIWA protocol with Ativan, discontinued as pt non-scoring -Folic acid & thiamine PO daily -Seizure precautions -SW consulted for AUD. Assessment & Plan (04/20/2024 11:03 AM EST): Patient was brought from [facility] due to developing altered mental status (lethargy) after x1 valium for alcohol withdrawal. Immediately became hypoxic with aspiration episode and briefly needed supplemental oxygen, then was sent to [facility] for evaluation. Patient's mental status was back to baseline on 1/4 PM. Last drink was 04/16/24 prior to admission to [facility] on same day. CT head neg. -CIWA protocol with Ativan -Folic acid & thiamine PO daily -Seizure precautions -SW consulted for AUD. Assessment & Plan (04/19/2024 12:45 PM EST): Patient was brought from [facility] due to developing altered mental status (lethargy) after x1 valium for alcohol withdrawal. Immediately became hypoxic with aspiration episode and briefly needed supplemental oxygen, then was sent to [facility] for evaluation. Patient's mental status was back to baseline on 04/18 PM. Last drink was 04/16/24 prior to admission to [facility] on same day. CT head neg. -[facility] protocol with Ativan -Folic acid & thiamine PO daily -Seizure precautions - consulted for alcoholism. Assessment & Plan (04/18/2024 9:52 PM EST): 58 years old male, chronic alcohol abuse and GERD, transferred from [facility]. Patient has been admitted for alcohol detoxification, patient received Valium and post therapy developed respiratory distress, developed hypoxia and transferred to [facility] via EMS Plan: 1-[facility] protocol 2- replacement of multivitamins Aspiration pneumonia [...] Flagyl, Rocephin. Patient was recently admitted at [facility] for AHRF and Suicidal ideations. -04/20/24 CT [...] Flagyl, Rocephin. Patient was recently admitted at [facility] for AHRF and Suicidal ideations. -04/20/24 CT [...] Flagyl, Rocephin. Patient was recently admitted at [facility] for AHRF and Suicidal ideations. -04/20/24 CT [...] Flagyl, Rocephin. Patient was recently admitted at [facility] for AHRF and Suicidal ideations. -04/20/24 CT [...] Flagyl, Rocephin. Patient was recently admitted at [facility] for AHRF and Suicidal ideations. -MRSA PCR [...] Flagyl, Rocephin. Patient was recently admitted at [facility] for AHRF and Suicidal ideations. -MRSA PCR [...] drink = 0.6 oz pur e alcohol) [facility] Utilities Answer Date Recorded In the past 12 months has th e [employer] gas, oil, or water company threatened [...] of Health Negra ual Screening 05/22/2025 05/22/2024 Diabetes Screening 06/17/2027 06/16/2024, 0 06/15/2024, 06/14/2024, Additional history exists RSV Vaccine (60+ years old a nd patients) (1 - 1-dose 75+ series) 2041 Abdominal Aortic Aneurysm (A AA) Screening Completed 04/21/2024 Hepatitis C Screening Completed 06/05/2024 Procedures * Due to [place] state law, this organization might not be sharing negative HIV tests. Procedure Name Priority Date/Time Associated Diagnosis Comments BASIC METABOLIC PANEL Routine 06/16/2024 8:26 AM EST HEPATITIS C ANTIBODY W/REFLEX TO HCV RNA, QUANTITATIVE PCR STAT 06/05/2024 4:[address] ABDOMEN PELVIS W CONTRAST Routine 04/21/2024 8:[address] CHEST WO CONTRAST Routine 04/20/2024 8:42 PM EST from Last 3 Months or Most Recently Relevant to Health Maintenance Results * Due to [place] state law, this organization might not be sharing negative HIV tests. * (ABNORMAL) Basic metabolic panel (06/16/2024 8:26 AM EST) NA 138 135 - 145 mmol/L 06/16/2024 10:05 AM [facility] K 4.6 3.5 - 5.3 mmol/L 06/16/2024 10:05 AM [facility] Cl 98 98 - 107 mmol/L 06/16/2024 10:05 AM [facility] CO2 25 22 - 32 mmol/L 06/16/2024 10:05 AM [facility] BUN 20 7 - 23 mg/dL 06/16/2024 10:05 AM [facility] Creatinine 0.84 0.60 - 1.30 mg/dL 06/16/2024 10:05 AM [facility] Glucose 124(H) 65 - 99 mg/dL 06/16/2024 10:05 AM [facility] Calcium 9.1 8.6 - 10.5 mg/dL 06/16/2024 10:05 AM [facility] Anion Gap 15 5 - 15 06/16/2024 10:05 AM [facility] eGFR >90 >=60 mL/min/1. 73m2 06/16/2024 10:05 AM [facility] Comment:The estimated glomer ular filtration rate (eGFR) is calculated using a new formula developed by the [facility] task force to eliminate race-based correction factors. [...] 8:26 AM EST 06/16/2024 9:05 AM EST Oswaldo Slaughter MD LAB BLOOD ORDERABLES Fin al Result Performing Organization Address City/[facility]/ZIP Co de Phone Number [facility] [address] [place] [address], [place] * Hepatitis C Antibody w/Reflex to HCV RNA, Quantitative PCR (06/05/2024 4:23 PM EST) Hepatitis C Antibody NON-REACT BRISSA NON-REACT BRISSA 06/06/2024 9:01 AM EST [facility] Comment: HCV antibody was non-reactive. There is no laboratory evidence of HCV infection. In most cases, no further action is required. However, if recent HCV exposure is suspected, a test for HCV RNA (test code 63692) is suggested. For additional information please refer to http://education.DNS:Net/faq/DAJ08y5 (This link is being provided for informational/ educational purposes only.) Blood Structure of peripheral vein / Unknown Venipuncture / Unknown 06/05/2024 4:23 PM EST 06/05/2024 4:44 PM EST Narrative [facility] - 06/06/2024 9:01 AM EST [facility] Received Date: John Mello MD LAB BLOOD ORDERABLES Final Re sult Performing Organization Address City/[facility]/ZIP Co de Phone Number [facility] [address], [place] [address], [place] [phone] [facility] [address], [place] [address], [place] [phone] * CT Abdomen Pelvis with Contrast (04/21/2024 [...] to obtain the completed interpretation. Workstation ID: [id number] Narrative 04/22/2024 9:27 AM EST EXAMINATION: CT [...] streak artifact from bilateral total hip arthroplasty. COLLABORATING SUPERVISING PHYSICIAN TOPOGRAM: As below LUNG BASES: Motion degraded. [...] outside the cortical bone. Resulting Agency Comment [id number] Procedure Note AmeCarol Ann witt MD - [...] metallic streak artifact from bilateraltotal hip arthroplasty. COLLABORATING SUPERVISING PHYSICIAN TOPOGRAM: As below LUNG BASES: Motion degraded. [...] possible to obtain thecompleted interpretation. Workstation ID: [id number] Nikolai Gonsalez MD IMChen CT PROCEDURES Final Result * CT Chest [...] to obtain the completed interpretation. Workstation ID: [id number] Narrative 04/21/2024 7:45 AM EST Indication: Lung [...] changes in the spine. Resulting Agency Comment [id number] Procedure Note Anastasiia Mcnamara MD - 04/21/2024 [...] possible to obtain thecompleted interpretation. Workstation ID: [id number] Nikolai Gonsalez MD IMG CT PROCEDURES Final Result from Last 3 Months or Most Recently Relevant to Health Maintenance Insurance [facility] Advance Directives Documents on File Type Date Recorded Patient Tamping Machine Operator Expl anation Health Care Proxy 04/20/2024 3:47 [...] Healthcare Agent Relationshi p Communication Ira Castro [facility] Health Care Agent [id number] (Mobile) Care Teams Savings Counselor Relationship Specialty Start Date End Date Patient, Has No Pcp Or Ref DO NOT EDIT THIS RECORD VIA PROVIDER ON THE FLY PCP - General Departmental Secretary 04/17/24
--- OUTSIDE RECORDS SUMMARY | 2024-12-08 14:59 | XMS_ITS | Clinical Summary ---
Author Organization [facility] Address [address] [place] [id number] Phone Care Team Providers Care Carton Catcher Name Role Phone Manuel Foy Primary Care Provider + Allergies No known active allergies Medications ipratropium-albu teroL (DUONEB) 0.5-3 mg (2.5 mg base)/3 mL nebulizer solution Take 3 mL by nebulization 3 (three) times a day. Active celecoxib (CELEBREX) 200 MG capsule Take 200 mg by mouth 2 (two) times a day. Active DULoxetine (CYMBALTA) 30 MG capsule Take 30 mg by mouth daily. Active ferrous sulfate 324 mg (65 mg pamunkey iron) TbEC Take 324 mg by mouth daily with breakfast. Active fluticasone propion-salmeter oL (ADVAIR DISKUS) 250-50 mcg/dose DISKUS Inhale 250 mcg/actuation of fluticasone into the lungs 2 (two) times a day. Active lidocaine 5 % ointment Apply 1 Application topically 4 (four) times a day. Back pain knee pain Active loxapine (LOXITANE) 50 MG capsule Take 100 mg by mouth nightly at bedtime. Active magnesium oxide (MAG-OX) 400 mg (241.3 mg elemental) tablet Take 400 mg by mouth 2 (two) times a day. Active melatonin 3 mg Tab Take 6 mg by mouth nightly at bedtime. Active mirtazapine (REMERON) 45 MG tablet Take 45 mg by mouth nightly at bedtime. Active therapeutic multivitamin tablet Take 1 tablet by mouth daily. Active pantoprazole (PROTONIX) 20 MG tablet Take 20 mg by mouth daily. Active pramipexole (MIRAPEX) 0.125 MG tablet Take 0.125 mg by mouth nightly at bedtime. Active pregabalin (LYRICA) 75 MG capsule Take 75 mg by mouth 2 (two) times a day. Active simethicone (MYLICON) 80 mg chewable tablet Take 80 mg by mouth 4 (four) times a day. Active traZODone (DESYREL) 150 MG tablet Take 150 mg by mouth nightly at bedtime. Active acetaminophen (TYLENOL) 650 MG CR tablet Take 650 mg by mouth every 8 (eight) hours as needed for pain (specific location in comments). Active albuterol 90 mcg/actuation inhaler Inhale 2 puffs into the lungs every 4 (four) hours as needed for wheezing. Active baclofen (LIORESAL) 10 MG tablet Take 10 mg by mouth every 8 (eight) hours as needed for spasm. Active cloNIDine HCL (CATAPRES) 0.1 MG tablet Take 0.1 mg by mouth every 8 (eight) hours as needed (Fr anxiety not relieved by Vistaril). Active diphenhydrAMINE (BENADRYL) 50 MG capsule Take 50 mg by mouth every 6 (six) hours as needed for itching (EPS prophylaxis, sleep). Active hydrOXYzine (VISTARIL) 50 MG capsule Take 50 mg by mouth 4 (four) times a day as needed for anxiety. Active magnesium hydroxide (MOM) 400 mg/5 mL Susp Take 2,400 mg by mouth daily as needed (Constipation). Active OLANZapine (ZYPREXA) 10 MG tablet Take 10 mg by mouth every 8 (eight) hours as needed (Aggression). Active ondansetron (ZOFRAN) 4 MG tablet Take 4 mg by mouth every 8 (eight) hours as needed for nausea. Active sodium chloride (OCEAN) 0.65 % nasal spray 1 spray by Nasal route as needed for congestion. Active Active Problems Problem Noted Date Diagnosed Date Suicidal ideation 02/29/2024 COPD exacerbation 02/27/2024 Chest pain 02/23/2024 Social History Tobacco Use Types Packs/Day Years [...] Orientation Straight 01/25/2024 6: 27 PM EDT Last Filed Vital Signs Vital Sign Reading Time Taken Comments Blood Pressure 153/85 03/05/2024 3:00 PM EST Pulse 67 03/05/2024 3:00 PM EST Temperature 36.6 C (97.9 F) 03/05/2024 3:00 PM EST Respiratory Rate 18 03/05/2024 3:00 PM EST Oxygen Saturation 93% 03/05/2024 3:00 PM EST Inhaled Oxygen Concentration 21% 03/04/2024 1 0:57 PM EST Weight 127.9 kg (282 lb) 03/05/2024 5:47 AM EST Height 177.8 cm (5' 10 ) 02/28/2024 11:17 AM EST Body Mass Index 40.46 02/28/2024 11:17 AM EST Plan of Treatment Health Maintenance Due Date Last Done Comments Adult Td,Tdap Booster 1966 LIPID PANEL 1966 DEPRESSION SCREENING 1978 SMOKING Hx and SMOKELESS TOB ACCO SCREENING 12/01/1979 HEPATITIS C SCREENING 1984 HIV ONE-TIME SCREENING (18-6 5 YEARS) 1984 COLOGUARD 12/01/2011 COLONOSCOPY 12/01/2011 COLORECTAL CANCER SCREENING 12/01/2011 FIT TEST 12/01/2011 FOBT 12/01/2011 SIGMOIDOSCOPY 12/01/2011 VIRTUAL COLONOSCOPY 12/01/2011 ZOSTER VACCINES (1 of 2) 2016 PNEUMOCOCCAL VACCINES (50+ y ears) (2 of 2 - PCV) 04/23/2020 04/23/2019 COVID-19 VACCINE (2 - 2023-2 5 season) 2023 06/30/2022 SCREENING FOR DIABETES 03/01/2027 03/01/2024 HEPATITIS A VACCINES Aged Out No long er eligible based on patient's age to complete this topic HIB VACCINES Aged Out No longer eligi ble based on patient's age to complete this topic MENINGOCOCCAL VACCINES (ACWY) Aged Out No longer eligible based on patient's age to complete this topic MENINGOCOCCAL VACCINES (B) Aged Out N o longer eligible based on patient's age to complete this topic Medical Devices Not on file Additional Health Concerns Infection Onset Date Last Indicated MDR-GN 03/01/2024 03/01/2024 Insurance [facility] O MEDICARE REPLACEMENT MEDICARE PART A & B [facility] MEDICARE REPLACEMENT MEDICARE PART A & B Member Subscriber Plan / Payer ( fective 2004-Present) Name:Castro, Chuy Rafael Member ID:[id number] Relation to Subscriber:Self Name:Matthew Chuy Rafael Subscriber ID:[id number] Payer ID:[id number] Group ID:Not on file Type:Medicare Address: [facility] [place] [facility] [address] [place] [phone] [facility] MEDICARE [facility]PLACEMENT MEDICARE PART A & [facility] MEDIC[facility] PART A & B [facility] PPO MEDICARE REPLACEMENT MEDICARE PART A & B [facility] PPO MEDICARE REPLACEMENT MEDICARE PART A & B Advance Directives For more information, please contact: [phone] (9AM - 5PM Mar/[facility], Saturday-Saturday) * Full Code (Latest Code Status on File) Date Activated Date Inactivated Comments 02/28/2024 12:26 AM Question Answer Comments Code Status Confirmed With: Patient Care Teams Carton Catcher Relationship Specialty [place] [address] [place] [id number] PCP - General Physician [employer] Producer 02/23/24 Additional Source Comments The information contained in this document represents components of the legal health record. It is not the complete legal health record.[facility]
--- OUTSIDE RECORDS SUMMARY | 2024-12-08 14:59 | XMS_ITS | Encounter Summary ---
Author Organization [facility] Address [address] [place] [address] Care Team Providers Care Migratory Game Bird Biologist Name Role Phone Paulo Schwarz Primary Care Provider [phone] Encounter Details Date Type Department Care Team ([facility] st Contact Info) Description 11/04/2014 Orders Only [facility] [address] [place] [id number] Stuart Herrera NP Social History Tobacco Use [...] of this encounter Results * Due to [place] [...] osteopenic. Impression: Degenerative changes. Bilateral hip prostheses. Procedure Note Marty Pereira MD [...] osteopenic. Impression: Degenerative changes. Bilateral hip prostheses. us Stuart Herrera BILINGUAL CUSTOMER SERVICE SPECIALIST IMG XRAY NO CONTRAST ORDERAB LES Final Result documented in this encounter Visit Diagnoses Diagnosis Bilateral hip pain- Primary Pain in joint, pelvic region and thigh Bilateral hip pain Pain in joint, pelvic region and thigh documented in this encounter Care Teams Migratory Game Bird Biologist Relationship Specialty Start Date End Date Paulo Schwarz [address] [place] [address] [place] [id number] PCP - General 01/07/08 documented as of this encounter
--- OUTSIDE RECORDS SUMMARY | 2024-12-08 14:59 | XMS_ITS | Continuity of Care Document ---
Author Organization [facility] Address [address] [place] [address] Care Team Providers Care Frame Feeder Name Role Phone Paulo Schwarz Primary Care Provider [phone] Encounters Date Type Department Care Team Description 11/13/2019 Travel 11/13/2019 1:15 PM EDT Radiology [facility] Xray [address] [facility] [address] [place] [address] Right knee pain, unspecified chronicity 11/13/2019 1:30 PM EDT Consult (Initial) [facility] Orthopedic Surgery [address] [facility] [address] [place] [address] Suresh Velazquez MD Status post total right knee replacement (Primary Dx) 10/06/2019 Travel 10/01/2019 Travel 09/29/2019 Orders Only [facility] Orthopedic Surgery [address] [facility] [address] [place] [address] Suresh Velazquez MD 09/24/2019 Telephone [facility] Surgery [address] [facility] [address] [place] [address] Suresh Velazquez MD Error 09/23/2019 Orders Only [facility] Orthopedic Surgery [address] [facility] [address] [place] [address] Suresh Velazquez MD 09/23/2019 Travel 09/22/2019 Telephone [facility] Surgery [address] [facility] [address] [place] [address] Suresh Velazquez MD Imaging Request 05/20/2017 Telephone [facility] Surgery [address] [facility] [address] [place] [address] Suresh Velazquez MD Patient Questions 05/16/2017 Home Visit Suresh Villanueva MD, MD 05/16/2017 Refill [facility] [address] [facility] [address] [place] [address] Suresh Velazquez MD Refill Request 05/16/2017 Telephone [facility] Surgery [address] [facility] [address] [place] [address] Suresh Velazquez MD Refill Request 05/14/2017 Home Visit Suresh Villanueva MD, MD 05/14/2017 Telephone [facility] Orthopedics 123 [facility] [address] [place] [address] Suresh Velazquez MD VNA Communication 05/14/2017 Telephone [facility] Surgery [address] [address] Suresh Velazquez MD Patient Questions 05/06/2017 Minor Procedure/Test NON [facility] [address] [place] [address] Suresh Velazquez MD 05/06/2017 [facility] NON [facility] [address] [place] [address] Suresh Velazquez MD 05/02/2017 Orders Only NON FC [facility] [address] [place] [address] Suresh Velazquez MD 04/23/2017 Orders Only [facility] [address] [place] [address] [address] [place] [address] Peggy Gomez Tech 04/22/2017 Orders Only [facility] Pre-Admission Testing [address] [place] [address] Lexie Rust NP 04/22/2017 9:30 AM EST Office Visit [facility] Pre-Admission Testing [address] [place] [address] Lexie Rust NP Pre-operative examination (Primary Dx); Primary osteoarthritis of right knee; Sleep apnea, unspecified type; Increased frequency of urination; Gastroesophageal reflux disease; Deep vein thrombosis (DVT) of proximal lower extremity, unspecified chronicity, unspecified laterality; Obesity, unspecified classification, unspecified obesity type, unspecified whether serious comorbidity present; Iron deficiency anemia, unspecified iron deficiency anemia type; Vitamin B 12 deficiency 04/04/2017 Telephone [facility] [address] [address] Suresh Velazquez MD Patient Questions 03/21/2017 2:30 PM EST Office Visit [facility] [address] [address] Suresh Velazquez MD Primary osteoarthritis of right knee (Primary Dx) 11/15/2016 7:45 AM EDT Office Visit [facility] [address] [address] Ld Mensah PA Primary osteoarthritis of right knee (Primary Dx) 04/19/2016 9:30 AM EST Office Visit [facility] [address] [address] Suresh Velazquez MD Osteoarthrosis involving lower leg (Primary Dx) 09/02/2015 9:15 AM EDT Consult (Initial) [facility] [address] [address] Suresh Velazquez MD Osteoarthrosis involving lower leg (Primary Dx) 12/06/2014 Telephone [facility] [address] [place] [address] Stuart Herrera NP Refill Request 11/05/2014 10:45 AM EDT Radiology [facility] [address] [place] [address] Bilateral hip pain 11/05/2014 11:45 AM EDT Office Visit [facility] [address] [place] [address] Stuart Herrera NP Muscle strain of gluteal region, unspecified laterality, initial encounter (Primary Dx) 11/04/2014 Orders Only [facility] [address] [place] [address] Stuart Herrera NP 07/29/2014 Orders Only NON FC [facility] [address] [place] [address] Sv, Unknown Provider 07/29/2014 2:00 PM EDT Consult (Initial) [facility] [address] [address] Stuart Herrera NP Muscle strain of left gluteal region, initial encounter (Primary Dx) 07/27/2014 Telephone [facility] [address] [address] Suresh Velazquez MD Patient Questions 03/24/2014 10:30 AM EST Office Visit [facility] Orth[facility] Suite [place] [facility] [address] [address] Becca Du NP Sciatica (Primary Dx) 03/17/2014 Telephone [facility] [address] [place] [facility] [address] [address] Suresh Velazquez MD Patient Questions 07/28/2013 Telephone [facility] [address] [place] [facility] [address] [address] Suresh Velazquez MD Letter/form Request (dr velazquez) 07/01/2013 Consult (Initial) REHABILITATION UNSPEC Provider, Unknown 04/27/2013 3:00 PM EST Office Visit [facility] [address] [place] [facility] [address] [address] Becca Du NP Iliotibial band syndrome (Primary Dx) 04/07/2013 Telephone [facility] [address] [address] Suresh Velazquez MD No Show 02/02/2013 Refill [facility] [address] [place] [address] Suresh Velazquez MD Refill Request 01/21/2013 Refill [facility] [address] [facility] [address] [place] [address] Suresh Velazquez MD Refill Request (marcus) 01/08/2013 Refill [facility] [address] [facility] [address] [place] [address] Suresh Velazquez MD Refill Request 01/07/2013 Letter/Form [facility] [address] [facility] [address] [place] [address] Suresh Velazquez MD 12/23/2012 Refill [facility] [address] [facility] [address] [place] [address] Suresh Velazquez MD Refill Request 12/18/2012 10:45 AM EDT Office Visit [facility] [address] [facility] [address] [place] [address] Suresh Velazquez MD Osteoarthritis of the pelvic region and thigh (Primary Dx) 12/12/2012 Telephone [facility] [address] [facility] [address] [place] [address] Suresh Velazquez MD Other (dr velazquez) 12/10/2012 Telephone [facility] [address] [facility] [address] [place] [address] Suresh Velazquez MD Patient Questions (Dr. Velazquez) 12/09/2012 Refill [facility] [address] [facility] [address] [place] [address] Suresh Velazquez MD Refill Request 12/08/2012 Orders Only [facility] [address] [facility] [address] [place] [address] Suresh Velazquez MD 12/08/2012 Refill [facility] [address] [facility] [address] [place] [address] Suresh Velazquez MD Refill Request 12/03/2012 Refill [facility] [address] [facility] [address] [place] [address] Suresh Velazquez MD Refill Request ( ) 12/01/2012 Orders Only ORTHO SURG UNSPECIFIED Suresh Velazquez MD 11/27/2012 Telephone [facility] [address] [facility] [address] [place] [address] Suresh Velazquez MD Other (Becca Wagneruld ) 11/26/2012 Refill [facility] [address] [facility] [address] [place] [address] Suresh Velazquez MD Refill Request (Dr. Velazquez ) 11/24/2012 Orders Only ORTHO SURG UNSPECIFIED Suresh Velazquez MD 11/19/2012 [facility] NON FC [facility] [address] [place] [address] Suresh Velazquez MD 11/14/2012 Orders Only NON FC [facility] [address] [place] [address] Suresh Velazquez MD 10/27/2012 Orders Only [facility] [address] [facility] [address] [place] [address] Lin John Tech 10/27/2012 11:15 AM EDT Office Visit [facility] Pre-Admission Testing [address] [place] [address] Khurram Sunshine MD Pre-operative examination (Primary Dx); Osteoarthritis of hip; Sleep apnea; Deep vein thrombosis; Gastroesophageal reflux disease; Seizures; Urinary frequency; Obesity 10/09/2012 Refill [facility] [address] [facility] [address] [place] [address] Suresh Velazquez MD Refill Request 09/19/2012 Orders Only [facility] [address] [facility] [address] [place] [address] Suresh Velazquez MD 09/05/2012 Refill [facility] [address] [facility] [address] [place] [address] Suresh Velazquez MD Refill Request 09/05/2012 11:00 AM EDT Consult (Initial) [facility] [address] [facility] [address] [place] [address] Suresh Velazquez MD Osteoarthritis of the pelvic region and thigh (Primary Dx) 07/04/2010 3:45 PM EDT Office Visit [facility] [address] [facility] [address] [place] [address] Suresh Velazquez MD DJD (degenerative joint disease) of hip (Primary Dx) 05/05/2010 Telephone [facility] [address] [facility] [address] [place] [address] Suresh Velazquez MD No Show (Balcom) 02/14/2010 Telephone [facility] [address] [facility] [address] [place] [address] Suresh Velazquez MD Cancellation (Balcom) 12/28/2009 Telephone [facility] [address] [facility] [address] [place] [address] Suresh Velazquez MD Patient Questions (BALCOM) 09/30/2009 Refill [facility] [address] [facility] [address] [place] [address] Suresh Velazquez MD Refill Request 09/14/2009 Refill [facility] [address] [facility] [address] [place] [address] Suresh Velazquez MD Refill Request 09/02/2009 Telephone [facility] [address] [facility] [address] [place] [address] Suresh Velazquez MD Patient Questions (balcom) 08/24/2009 Refill [facility] [address] [facility] [address] [place] [address] Suresh Velazquez MD Refill Request 08/04/2009 Refill [facility] [address] [address] Suresh Velazquez MD Refill Request 07/26/2009 9:15 AM EDT Office Visit [facility] [address] [address] Suresh Velazquez MD Osteoarth NOS-unspec (Primary Dx) 07/21/2009 Telephone [facility] [address] [address] Suresh Velazquez MD Patient Questions (BALCOM) 07/19/2009 Telephone [facility] [address] [address] Suresh Velazquez MD Patient Questions (balcom) 07/13/2009 Telephone [facility] [address] [address] Suresh Velazquez MD Patient Questions (balcom) 07/08/2009 Telephone [facility] [address] [address] Suresh Velazquez MD Patient Questions (Balcom ) 07/07/2009 Telephone [facility] [address] [address] Suresh Velazquez MD VNA Communication 07/07/2009 Telephone [facility] [address] [address] Suresh Velazquez MD VNA Communication (dr velazquez) 07/04/2009 Telephone [facility] [address] [address] Suresh Velazquez MD Patient Questions (Balcom ) 06/28/2009 Consult (Initial) NON FC [facility] [address] [place] [address] [facility], Unknown Provider 06/28/2009 [facility] [address] [place] [address] Suresh Velazquez MD 06/23/2009 Orders Only NON [facility] [address] [place] [address] Suresh Velazquez MD 06/09/2009 Orders Only [facility] [address] [facility] [address] [place] [address] Lin John Tech 06/08/2009 Orders Only NON FC SA NON FC UNK Provider, Unknown 06/08/2009 8:00 AM EST Office Visit [facility] Pre-Admission Testing [address] [place] [facility] [address] [place] [address] Lexie Rust NP Preop examination; Osteoarthritis of hip; Urinary frequency; Morbid obesity; DVT (deep venous thrombosis); GERD (gastroesophageal reflux disease); Sleep apnea 05/12/2009 Telephone [facility] [address] [place] [address] [place] [address] Suresh Velazquez MD Patient Questions (marcus) 05/06/2009 Orders Only [facility] [address] [place] [address] Suresh Velazquez MD 05/06/2009 1:15 PM EST Office Visit [facility] [address] [place] [address] [place] [address] Suresh Velazquez MD Osteoarth NOS-unspec (Primary Dx) 01/26/2009 Telephone [facility] [address] [place] [address] [place] [address] Paulo Schwarz Cancellation (Marcus ) 04/23/2008 Telephone [facility] [address] [place] [address] Suresh Velazquez MD 04/23/2008 Orders Only NON FC SA [facility] [address] [place] [address] Suresh Velazquez MD Allergies No known active [...] Overview (08/16/2020): Deep vein thrombosis 10/27/2012 Immunizations Immunization Administration Dates Next Due Influenza,injectable,quad,preservative 0 PPV23 (Pneumovax) 04/23/2019 Social History Smoking Status as of 12/08/2024 Tobacco Use Types Packs/Day Years Used Date [...] 72 04/22/2017 9:29 AM EST Temperature 36.6 C (97.8 F) 04/22/2017 9:29 AM EST Respiratory Rate 14 04/22/2017 9:29 AM EST Oxygen Saturation - - Inhaled Oxygen Concentration - - Weight 120 kg (265 lb) 04/22/2017 9:29 AM EST Height 175.3 cm (5' 9 ) 04/22/2017 9:29 AM EST Body Mass Index 39.13 04/22/2017 9:29 AM EST Plan of Treatment Not on file Procedures * Due to [place] state law, this organization might not be [...] 11:55 AM EST Results * Due to [place] state law, this organization might not be [...] BLOOD COUNT 12.8(H) 3.9 - 11.0 x1000/uL [facility] RBC 4.38 4.30 - 5.80 mil/ul [facility] Hemoglobin 12.1(L) 12.5 - 17.0 g/dL [facility] HCT (HEMATOCRIT) 36.8 36.0 - 50.0 % [facility] MCV 84 80 - 100 fL [facility] MCH 28 27 - 33 pg [facility] MCHC 33 31 - 36 g/dL [facility] RDW 16.0(H) 11.4 - 14.4 % [facility] PLATELETS 201 150 - 450 x1000/uL [facility] 05/07/2017 6:05 AM EST 05/07/2017 6:05 AM EST us Suresh Velazquez MD LABORATORY Final Result Performing Organization Address City/[facility]/ZIP Co de Phone Number [facility] [address] [place] [address] * (ABNORMAL) BASIC METABOLIC PANEL (05/07/2017 6:05 AM EST) Only the most recent of7 resultswithin the time period is included. Glucose 94 65 - 99 mg/dL [facility] BUN 11 5 - 26 mg/dL [facility] CREATININE 0.76 0.5 - 1.5 mg/dL [facility] BUN/Creatinine Ratio 14 8 - 27 [facility] GLOM FILT RATE, EST 106.4 >59 mL/min [facility] IF -LAURA N 123.3 >59 mL/min [facility] SODIUM 143 134 - 144 mEq/L [facility] POTASSIUM 3.9 3.6 - 5.6 mEq/L [facility] CHLORIDE 107 96 - 109 mEq/L [facility] CARBON DIOXIDE 29 20 - 32 mEq/L [facility] ANION GAP 7.0(L) 8 - 15 [facility] CALCIUM 8.4 8.3 - 10.0 mg/dL [facility] 05/07/2017 6:05 AM EST 05/07/2017 6:05 AM EST us Suresh Velazquez MD LABORATORY Final Result Performing Organization Address City/[facility]/ZIP Co de Phone Number [facility] [address] [place] [address] * KNEE UNILATERAL 1 OR 2 VIEWS (05/06/2017 3:31 PM EST) RADIOLOGY REPORT [facility] Department of Radiology [address] [place] [address], [id number] Name: WES OLIVO : 67 Date of Service: 05/06/17 1052 Acct Number: [id number] Order Number: [id number] Location: [facility] Report Number: [id number] Service: REG NCC/ Requesting Physician: Suresh Velazquez ([facility]) Category: RADIOLOGY [facility] Exam: KNEE 1 OR 2 VIEWS Right Signs/Symptoms: S/P TOTAL KNEE ARTHROPLASTY Report Status: ---Signed--- KNEE, 2 VIEW REASON FOR EXAM: Total knee arthroplasty. TECHNIQUE: 2 views of the right knee are submitted. COMPARISON: Right knee series of March 21, 2017 FINDINGS: Status post right total knee arthroplasty. No evidence of hardware failure. Near-anatomic alignment. Residual soft tissue swelling and subcutaneous air. No acute bony injury. IMPRESSION: Status post right knee arthroplasty with expected postsurgical changes. No evidence of hardware failure. Date/Time of Dictation: 05/06/17 1634 Intake Counselor (if applicable): Approved By Attending Radiologist: Deacon Hernandez 05/06/17 1634 [facility] Department of Radiology [address] [place] [address], [id number] [facility] Anatomical Region Laterality Modality Other 05/06/2017 3:31 PM EST Narrative 05/06/2017 4:34 PM EST Reason for Study/History: Department of Radiology TEST(S) PROCESSED BY [facility] XRAY us Suresh Velazquez MD IMAGING-[facility] Final Result * UNSPECIFIED MAJOR PROCEDURE (05/06/2017) Narrative Procedure Note Suresh Velazquez MD - 05/06/2017 10:19 AM EST OPERATIVE REPORT DATE OF OPERATION: 05/06/2017 ATTENDING SURGEON: Dr. Suresh Velazquez. PREOPERATIVE DIAGNOSIS: Degenerative joint disease, right knee. POSTOPERATIVE DIAGNOSIS: Degenerative joint disease, right knee. PROCEDURE PERFORMED: Right total knee arthroplasty. TOURNIQUET TIME: 47 minutes. MANAGER OF ENGINEERING: Cory Kaiser, advanced practitioner certified. IMPLANTS USED: [...] 10:04 A TT: 10:19 A Doc #: [id number] cc: Suresh Velazquez MD Suresh Velazquez MD PROCEDURES Final Result * BLOOD TYPE AND ANTIBODY SCREEN (05/02/2017 3:20 PM EST) Only the most recent of3 resultswithin the time period is included. BLOOD GROUP ABO O [facility] RH-(D) Positive [facility] ANTIBODY SCREEN Negative Negative [facility] 05/02/2017 3:20 PM EST 05/02/2017 3:20 PM EST Suresh Velazquez MD LABORATORY Final Result Performing Organization Address [facility] Co de Phone Number [facility] [address] [place] [address] * MRSA CULTURE SCREEN, NASAL ONLY (04/22/2017 12:22 PM EST) Only the most recent of2 resultswithin the time period is included. Methicillin Resistant Staphylococcus Aureus Screen SEE NOTE [facility] Comment: MRSA CULTURE SCREEN MICRO NUMBER: [id number] TEST STATUS: FINAL SPECIMEN SOURCE: NOT GIVEN SPECIMEN QUALITY: ADEQUATE RESULT: No methicillin resistant Staphylococcus aureus (MRSA) isolated. 04/22/2017 12:2 2 PM EST 04/22/2017 5:52 PM EST Narrative Resulting Agency Comment [id number] Lexie Rust NP LABORATORY Final Result [facility] [address] [place] [address] * EKG-TO BE READ AND BILLED BY [...] 6 AM EST 04/22/2017 10:11 PM EST Result [facility] Lexie Rust NP CARDIOVASCULAR-WITH INBSKT R TG Final Result Performing Organization Address City/[facility]/ZIP Co de Phone Number [facility] * CULTURE, URINE, ROUTINE (04/22/2017 9:54 AM EST) Only the most recent of2 resultswithin the time period is included. Bacteria culture (Urine) SEE NOTE [facility] Comment: CULTURE, URINE, ROUTINE MICRO NUMBER: [id number] TEST STATUS: FINAL SPECIMEN SOURCE: NOT GIVEN SPECIMEN QUALITY: ADEQUATE RESULT: Single organism less than 10,000 CFU/mL isolated. These organisms, commonly found on external and internal genitalia, are considered colonizers. No further testing performed. 04/22/2017 9:54 AM EST 04/22/2017 2:49 PM EST Narrative Resulting Agency Comment [id number] Result [facility] Lexie Rust NP LABORATORY Final Result Performing Organization Address [facility] Co de Phone Number [facility] [address] [place] [address] * PROTHROMBIN TIME (PT) (INR), BLOOD (04/22/2017 9:54 AM EST) Pathologist [facility] INR 1.0 [facility] Comment: Reference Range 0.9-1.1 Moderate-intensity Warfarin Therapy 2.0-3.0 Higher-intensity Warfarin Therapy 3.0-4.0 PT 10.3 9.0 - 11.5 sec [facility] Comment: For more information on this test, go to: http://education.[employer].myOrder/faq/CXD178 04/22/2017 9:5 4 AM EST 04/22/2017 2:49 PM EST Narrative Resulting Agency Comment [id number] Lexie Rust WHEEL LOADER OPERATOR LAB SAME DAY RESULT Final Re sult [facility] [address] [place] [address] * (ABNORMAL) CBC INCLUDES DIFFERENTIAL AND PLATELET COUNT (04/22/2017 9:54 AM EST) Only the most recent of2 resultswithin the time period is included. WBC 11.1(H) 3.8 - 10.8 Thousand/u L [...] 2:49 PM EST Narrative Resulting Agency Comment [id number] us Haylee Kaune WHEEL LOADER OPERATOR LAB SAME DAY RESULT Final Re sult [facility] [address] [place] [address] * (ABNORMAL) BASIC METABOLIC PANEL WITH (GFR) (04/22/2017 9:54 AM EST) Only the most recent of2 resultswithin the time period is included. Pathologist [facility] Glucose 79 65 - 99 mg/dL [facility] DIAGNOSTICS Comment:Fasting reference in terval Urea Nitrogen Blood (BUN) 6(L) 7 - 25 mg/dL [facility] Creatinine 0.88 0.70 - 1.33 mg/dL [facility] Comment: For patients >49 years of age, the reference limit for Creatinine is approximately 13% higher for people identified as -Syrian. GFR 100 > OR = 60 mL/min/1. [...] needs for GFR calculation. Resulting Agency Comment [id number] us Lexie Rust NP LABORATORY Final Result Performing Organization Address City/State/[facility] Co de Phone Number [facility] [address] [place] [address] * KNEE 3 VW MIN W/OBLIQUES (03/21/2017 5:24 PM EST) RADIOLOGY REPORT [facility] Department of Radiology [address] [place] [address], [address] Name: WES OLIVO : 67 Date of Service: 03/21/17 1445 Acct Number: [id number] Order Number: [id number] Location: [facility] Report Number: [id number] Service: REG REF/ Requesting Physician: Suresh Velazquez ([facility]) Category: ORTHOPEDIC RADIOLOGY [facility] Exam: KNEE 3 VW MIN Right Signs/Symptoms: RIGHT KNEE PAIN Report Status: [...] to large effusion. Date/Time of Dictation: 03/21/171827 Intake Counselor (if applicable): Approved By Attending Radiologist: Doni Pedro 03/21/171827 [facility] Department of Radiology [address] [place] [address], [address] [facility] RAD Anatomical Region Laterality Modality Other 03/21/2017 5:24 PM EST Narrative 03/21/2017 6:28 PM EST Reason for Study/History: Department of Radiology TEST(S) PROCESSED BY [facility] XRAY Suresh Velazquez MD [facility]ING-[facility] Final Result * XRAY KNEE AP LAT & OBLQ MIN 3 VW - RIGHT (09/02/2015 11:21 AM EDT) RADIOLOGY REPORT [facility] Department of Radiology [address] [place] [address], [address] Name: WES OLIVO : 67 Date of Service: 09/02/15930 Acct Number: [id number] Order Number: [id number] Location: [place] Report Number: [id number] Service: REG REF/ Requesting Physician: Suresh Velazquez ([facility]) Category: ORTHOPEDIC RADIOLOGY [facility] Exam: KNEE 3 VW MIN Right Signs/Symptoms: PAIN Report Status: ---Signed--- Procedures: KNEE 3 VW MIN RIGHT History:Patient is a Male , 49 years of age, with the following information provided: PAIN. Comparison:April 23, 2008 report only: Early osteoarthritis predominantly lateral compartment reported Findings: Osteopenia. Moderate to severe osteoarthritis lateral are evident. No effusion. Minor degenerative changes about the patellofemoral joint. Otherwise unremarkable. IMPRESSION: Progression of lateral compartment osteoarthritis. Date/Time of Dictation: 09/02/15 1125 Intake Counselor (if applicable): Approved By Attending Radiologist: Tobi Gray 09/02/15 1125 [facility] Department of Radiology [address] [place] [address], [address] [facility] RAD Anatomical Region Laterality Modality Other 09/02/2015 11:2 1 AM EDT Narrative 09/02/2015 11:26 AM EDT Reason for Study/History: Department of Radiology TEST(S) PROCESSED BY [facility] XRAY Suresh Velazquez MD [facility] Final Result * XRAY HIPS WITH PA [...] the time period is included. RADIOLOGY REPORT [facility] Department of Radiology [address] [place] [address], [phone] Name: WES OLIVO : 67 Date of Service: 07/29/14 1425 Acct Number: [id number] Order Number: [id number] Location: [place] Report Number: [id number] Service: PRE REF/ Requesting Physician: Stuart Velez ([facility]) Category: ORTHOPEDIC RADIOLOGY [facility] Exam: HIP UNILAT 2 VIEWS Left Signs/Symptoms: THR Report Status: Signed Pelvis [...] Approved Electronically By/Date: Alfonzo Peterson 07/29/14 1538 [facility] Department of Radiology [address] [place] [address], [id number] [facility] Anatomical Region Laterality Modality Other 07/29/2014 3:34 PM EDT Narrative 07/29/2014 3:39 PM EDT Reason for Study/History: Department of Radiology TEST(S) PROCESSED BY [facility] XRAY us Unknown Provider [facility] Final Resul t * PELVIS 1 OR 2 VIEWS (07/29/2014 3:34 PM EDT) Only the most recent of8 resultswithin the time period is included. RADIOLOGY REPORT [facility] Department of Radiology [address] [place] [address], [address] Name: WES OLIVO : 67 Date of Service: 07/29/14 1425 Acct Number: [id number] Order Number: [id number] Location: [place] Report Number: [id number] Service: PRE REF/ Requesting Physician: Stuart Velez ([facility]) Category: ORTHOPEDIC RADIOLOGY [facility] Exam: PELVIS 1 OR 2 VIEWS Signs/Symptoms: L THR Report Status: Signed Pelvis [...] Near-anatomic alignment. Interpreting Resident: Date/Time of Dictation: 07/29/144 Approved Electronically By/Date: Alfonzo Peterson 07/29/14 1538 [facility] Department of Radiology [address] [place] [address], [address] [facility] Anatomical Region Laterality Modality Other 07/29/2014 3:34 PM EDT Narrative 07/29/2014 3:39 PM EDT Reason for Study/History: Department of Radiology TEST(S) PROCESSED BY [facility] XRAY us Unknown Provider [facility] Final Resul t * [facility]AL [facility] (03/24/2014 4:40 PM EST) Only the most recent of4 resultswithin the time period is included. RADIOLOGY REPORT [facility] Department of Radiology [address] [place] [address], [address] Name: WES OLIVO : 67 Date of Service: 03/24/14 1003 Acct Number: [id number] Order Number: [id number] Location: [place] Report Number: [id number] Service: REG REF/ Requesting Physician: Becca Du ([facility]) Category: ORTHOPEDIC RADIOLOGY [facility] Exam: HIP UNILAT 2 VIEWS Right Signs/Symptoms: S/P RT THR Report Status: Signed Study: Two views right hip Findings: There is a total right hip arthroplasty in stable alignment from 04/27/13. There is a somewhat vertical alignment of the acetabular cup. Stable superior acetabular lucency. There is slight lucency along the distal femoral stem on the lateral view. The osseous structures otherwise intact. There are stable heterotopic ossification at the superolateral hip joint. Soft tissues are otherwise within normal limits. Impression: Total right hip arthroplasty and stable alignment, with slight lucency along the distal femoral stem seen on the lateral view. Interpreting Resident: Date/Time of Dictation: 03/24/14 [facility] Approved Electronically By/Date: Michael Anders 03/24/14 1640 [facility] Department of Radiology [address] [place] [address], [address] [facility] Anatomical Region Laterality Modality Other 03/24/2014 4:40 PM EST Narrative 03/24/2014 4:40 PM EST Reason for Study/History: Department of Radiology TEST(S) PROCESSED BY [facility] XRAY Becca Du WHEEL LOADER OPERATOR [facility] Final Result * UNSPECIFIED DIAGNOSTIC PROCE (12/08/2012) Only the most recent of5 resultswithin the time period is included. Narrative Transcriptions Suresh Velazquez MD - 12/24/2012 12:00 AM EDT Suresh Velazquez MD LABORATORY Final Result * PELVIS 1 OR 2 VIEWS (11/19/2012 4:51 PM EDT) Only the most recent of2 resultswithin the time period is included. RADIOLOGY REPORT [facility] Department of Radiology [address] [place] [address], [phone] Name: WES OLIVO : 67 Date of Service: 11/19/12 1636 Acct Number: [id number] Order Number: [id number] Location: [facility] Report Number: [id number] Service: ADM IN/LEROY Requesting Physician: Suresh Velazquez ([facility]) Category: RADIOLOGY [facility] Exam: PELVIS 1 OR 2 VIEWS Signs/Symptoms: S/P THR Report Status: Signed AP pelvis, single view, 11/19/12 at 1600 hrs with comparison to 09/05/12. Left total hip replacement is in place, femoral components are not included nor is the superior aspect of the pelvis. Right total hip replacement has been performed, prosthetic components appear appropriate in position. No fracture or dislocation recognized. Air is seen around the right hip in the immediate postoperative state. Impression: Bilateral hip replacements as described. Interpreting Resident: Date/Time of Dictation: 11/19/12 1651 Approved Electronically By/Date: Tracey Lawson 11/19/12 1652 [facility] Department of Radiology [address] [place] [address], [id number] [facility] Anatomical Region Laterality Modality Other 11/19/2012 4:51 PM EDT Narrative 11/19/2012 4:52 PM EDT Reason for Study/History: Department of Radiology TEST(S) PROCESSED BY [facility] XRAY Suresh Velazquez MD [facility] Final Result * HIP UNILATERAL 2 VIEW - RIGHT (11/19/2012 4:50 PM EDT) RADIOLOGY REPORT [facility] Department of Radiology [address] [place] [address], [id number] Name: WES OLIVO : 67 Date of Service: 11/19/12 1637 Acct Number: [id number] Order Number: [id number] Location: [facility] Report Number: [id number] Service: ADM IN/LEROY Requesting Physician: Suresh Velazquez ([facility]) Category: RADIOLOGY [facility] Exam: HIP 2 VIEWS UNILATERAL Right Signs/Symptoms: S/P THR Report Status: Signed Right hip, two views, 11/19/12 at 1600 hrs. Comparison is to 09/05/12. There has been right total hip replacement. Prosthetic components appear appropriate in position. No fracture or dislocation recognized. There is limited evaluation of the bony structures. Soft tissue air seen in the immediate postoperative state. Impression: Right total hip replacement. Interpreting Resident: Date/Time of Dictation: 11/19/12 165 Approved Electronically By/Date: Tracey Lawson 11/19/12 165 [facility] Department of Radiology [address] [place] [address], [id number] [facility] Anatomical Region Laterality Modality Other 11/19/2012 4:50 PM EDT Narrative 11/19/2012 4:51 PM EDT Reason for Study/History: Department of Radiology TEST(S) PROCESSED BY [facility] XRAY Suresh Velazquez MD [facility] Final Result * UNSPECIFIED MAJOR PROCEDURE (11/19/2012) [...] extended neck offset. SURGEON: Suresh Velazquez MD MANAGER OF ENGINEERING: Becca Du NP. INDICATIONS: The patient has [...] quadratus femoris and the inferior capsule. A miccosukee blade was then used to release the [...] 2:48 P TT: 2:59 P Doc #: [id number] cc: Suresh Velazquez MD Suresh Velazquez MD PROCEDURES Final Result * HIP UNILAT 2 VIEWS (09/05/2012 12:25 PM EDT) RADIOLOGY REPORT [facility] Department of Radiology [address] [place] [address], [address] Name: WES OLIVO : 67 Date of Service: 09/05/12 1056 Acct Number: [id number] Order Number: [id number] Location: [facility] Report Number: [id number] Service: REG REF/ Requesting Physician: Suresh Velazquez ([facility]) Category: ORTHOPEDIC RADIOLOGY [facility] Exam: HIP UNILAT 2 VIEWS Right Signs/Symptoms: HIP PAIN Report Status: Signed Right hip, two views. Comparison: 07/26/09, 07/04/10. Severe degenerative arthropathy of the right hip is seen with loss of superior joint space, hypertrophic changes of the lateral acetabular margin and medial femoral head margin. Subchondral geodes are seen. There is an impacted appearance of the head medially. This is unchanged. Impression: Stable interval examination. Severe degenerative arthropathy of the right hip with either degenerative hypertrophic changes medially and/or elements of previous impaction, stable. Interpreting Resident: Date/Time of Dictation: 09/05/12 1225 Approved Electronically By/Date: Vance Riggins 09/05/12 1226 [facility] Department of Radiology [address] [place] [address], [address] [facility] Anatomical Region Laterality Modality Other 09/05/2012 12:2 5 PM EDT Narrative 09/05/2012 12:26 PM EDT Reason for Study/History: Department of Radiology TEST(S) PROCESSED BY [facility] XRAY us Suresh Velazquez MD [facility] Final Result * (ABNORMAL) PROTHROMBIN TIME (07/02/2009 10:18 AM EDT) Only the most recent of5 resultswithin the time period is included. PT (PROTHROMBIN TIME) 14.2(H) 9.4 - 12.0 sec INR 1.5(L) 2.0 - 3.5 Comment: INR reference interval applies to patients on anticoagulant therapy. Suggested INR therapeutic range for oral anticoagulant therapy:(Stabilized anticoagulated patients) Routine Therapy: 2.0-3.0 Recurrent Myocardial Infarction or Mechanical Prosthetic Valves: 2.5-3.5 07/02/2009 10:1 8 AM EDT 07/02/2009 10:18 [...] EDT Reason for Study/History: TEST(S) PROCESSED BY [facility] XRAY Suresh Velazquez MD [facility] Final Result * UNSPECIFIED MAJOR PROCEDURE (06/28/2009 [...] 44 +12 cobalt chrome head,a size 8 Dodge cementless stem with lateral neck. SURGEON: Suresh Velazquez MD. MANAGER OF ENGINEERING: GHAZALA Gates. INDICATIONS: The patient has not [...] quadratus femoris and the inferior capsule. A miccosukee bladewas then used to release the rotators [...] 5:42 P TT: 7:50 P Doc #: [id number] cc: Suresh Velazquez MD Suresh Velazquez MD PROCEDURES Final Result * BLOOD TYPE (ABO&RH) (06/23/2009 10:00 AM EST) BLOOD GROUP ABO O RH-(D) POSITIVE 06/23/2009 10:0 0 AM EST 06/23/2009 10:00 AM EST Suresh Velazquez MD LABORATORY Final Result * ANTIBODY SCREEN (06/23/2009 10:00 AM EST) ANTIBODY SCREEN NEGATIVE 06/23/2009 10:0 0 AM EST 06/23/2009 10:00 AM EST Suresh Velazquez MD LABORATORY Final Result * EKG (06/08/2009 9:52 AM EST) VENTRICULAR RATE 70 BPM ATRIAL RATE 70 [...] METABOLIC PANEL W/GLOMERULAR FILTRATION RATE (EGFR) (06/08/2009) CALCIUM 9.8 8.6 - 10.2 MG/DL [facility] [...] NP LABORATORY Final Result Performing Organization Address [facility] de Phone Number [facility] [address] [place] [address] * CULTURE, URINE (06/08/2009) URINE CULTURE CLEAN VOID SEE TEXT [facility] Comment: SOURCE: URINE NO GROWTH 06/08/2009 06/08/2009 5:3 4 PM EST Lexie Rust NP LABORATORY Final Result Performing Organization Address [facility] de Phone Number [facility] [address] [place] [address] * MRSA SCREEN, ANY SOURCE (06/08/2009) Result(s) SEE TEXT [facility] Comment: SOURCE: UNKNOWN NO METHICILLIN RESISTANT STAPHYLOCOCCUS AUREUS ISOLATED 06/08/2009 06/08/2009 5:3 4 PM EST Lexie Rust NP LABORATORY Final Result Performing Organization Address [facility] de Phone Number [facility] [address] [place] [address] * (ABNORMAL) CBC 5 PART DIFF (06/08/2009) [...] 5:3 4 PM EST us Lexie Rust WHEEL LOADER OPERATOR LAB SAME DAY RESULT Final Re sult [facility] [address] [place] [address] * URINALYSIS, COMPLETE (DIP & MICRO) (06/08/2009) [...] 5:3 4 PM EST us Lexie Rust WHEEL LOADER OPERATOR LAB SAME DAY RESULT Final Re sult [facility] [address] [place] [address] * XRAY HIPS BILATERAL MIN 2 VIEWS [...] (2 VWS) LT (04/23/2008 12:00 PM EST) [facility] RADIOLOGY REPORT Right knee, two views. Findings: Upright AP and lateral views of the right knee show mild generalized osteopenia. Osteophytes are noted with decrease in the lateral tibiofemoral joint space. There is no evidence of a joint effusion. Impression: Early osteoarthritis predominantly in the lateral tibiofemoral joint compartment. Anatomical Region Laterality Modality Other 04/23/2008 12:0 0 PM EST Narrative 04/23/2008 12:01 PM EST Reason for Study/History: Findings: Upright AP and lateral views of the right knee show TEST(S) PROCESSED BY [facility] XRAY Suresh Velazquez MD [facility] Final Result * KNEE (2 VWS) RT (04/23/2008 11:59 AM EST) RADIOLOGY REPORT Left knee, two views. Findings: Weight-bearing AP and lateral views of the left knee are submitted. The AP view is oblique. The joint space appears maintained. There is generalized osteopenia. No significant osseous formation is seen. A small bony exostosis is seen extending distally from the medial proximal metadiaphysis of the tibia. A calcified density seen in the soft tissues along the media of the proximal tibia. There is no evidence of joint effusion. Impression: Osteopenia. Limited study. Anatomical Region Laterality Modality Other 04/23/2008 11:5 9 AM EST Narrative 04/23/2008 12:00 PM EST Reason for Study/History: Findings: Weight-bearing AP and lateral views of the left knee TEST(S) PROCESSED BY [facility] XRAY Suresh Velazquez MD [facility] Final Result Visit Diagnoses Diagnosis Start Date [...] total right knee replacement 11/13/2019 Care Teams Frame Feeder Relationship Specialty Start Date End Date Paulo Schwarz [address] [place] [address] [address] [place], [place] [address] PCP - General 01/07/08
== END 2024-12-08 15:01 | disposition home or self-care (01) ==
LOC: HO.HPS 14:02
PROVIDERS: PCP Physician Assistant; Visit Provider Internal Medicine
DX: J42 Unspecified chronic bronchitis (principal); F17.200 Nicotine dependence, unspecified, uncomplicated; J96.21 Acute and chronic respiratory failure with hypoxia; G47.33 Obstructive sleep apnea (adult) (pediatric); F19.10 Other psychoactive substance abuse, uncomplicated
CPT/HCPCS: 99214

== ENCOUNTER → 2024-12-08 14:01 | Outpatient (BNVA) | payer MEDICARE, MEDICAID, SELFPAY | PROVIDERS: PCP Physician Assistant; Visit Provider Internal Medicine | DX: J96.21 Acute and chronic respiratory failure with hypoxia (principal); J42 Unspecified chronic bronchitis; F17.200 Nicotine dependence, unspecified, uncomplicated; G47.33 Obstructive sleep apnea (adult) (pediatric); F19.10 Other psychoactive substance abuse, uncomplicated | CPT/HCPCS: 99212 ==

== ENCOUNTER 2024-12-10 10:08 | Outpatient (REF) | payer MEDICARE, MEDICAID, SELFPAY ==
--- OUTSIDE RECORDS SUMMARY | 2024-10-29 06:20 | XMS_ITS ---
Author Organization [facility] Address [address] [place] [phone] Care Team Providers Care Sharepoint Designer Developer Name Role Phone [facility] Primary Care Provider Josiane Mohr Unavailable Edda Granado Unavailable Encounters Encounter Location Date Provider Diagnosis [facility] [address] [place] [phone] 10/29/2024 Edda Granado Plan Of Treatment No Information Progress Notes * OLIVOChuy FernandezDOB:1965 (59 yo M)Acc No.[id number]:10/29/2024 Case Management Patient: Chuy VILLAREAL Provider: Ayaan Granado :1965 A ge:58 Y S ex:Male Date:10/29/2024 Address:[address] [place], [place] [phone] Pcp:[facility] Subjective: * Chief Complaints: * * Medical History: Objective: Assessment: Plan: * Treatment: * Images: Billing Information: * Visit Code: * Procedure Codes: Care Plan Details* * Electronic signature of Anthony Granado on 12/10/2024 at 11:26 AM EDT Sign off status: Pending * Provider: Ayaan Granado Date: 10/29/2024 Generated for Nuviai ng/Faxing/eTransmitting on: 12/10/2024 11:26 AM EDT
--- NOTE | ~2024-12-10 | US_ITS ---
EXAMINATION: US LOWER EXTREMITY VENOUS (REFLUX EXAM), BILATERAL CLINICAL INFORMATION: Varices. Venous insufficiency. COMPARISON: None. TECHNIQUE: Color flow triplex imaging and compression Doppler was performed to evaluate both the deep and the superficial systems bilaterally. To evaluate the superficial system, the examination was performed in the upright position. Color-flow Doppler ultrasound and compression ultrasound were utilized. In addition, maneuvers were utilized to demonstrate reflux. FINDINGS: 1. DEEP VENOUS ULTRASOUND OF THE RIGHT LOWER EXTREMITY: Common Femoral Vein: Compressible, normal respiratory variation and augmented flow. Femoral Vein: Compressible, normal color flow and augmentation. Popliteal Vein: Compressible, normal augmentation. Deep Reflux: There is no evidence of reflux in the deep system in either the common femoral vein, superficial femoral or the popliteal vein. There is no evidence of a Yip's cyst. 2. SUPERFICIAL ULTRASOUND WITH DOPPLER OF RIGHT LOWER EXTREMITY: GREAT SAPHENOUS VEIN: Saphenofemoral Junction: 0.6 cm; Reflux: 0 ms Proximal Thigh: 0.4 cm; Reflux: 0 ms Mid Thigh: Not identified. Questionable post procedure. Distal Thigh: Not identified. Questionable post procedure. At Knee: Not identified. Questionable post procedure. Proximal Calf: Not identified. Questionable post procedure. Mid Calf: 0.3 cm; Reflux: 0 ms Distal Calf: 0.3 cm; Reflux: 0 ms DUPLICATED MEDIAL GREAT SAPHENOUS VEIN: Diameter: None imaged Reflux: NA DUPLICATED LATERAL GREAT SAPHENOUS VEIN: Diameter: 0.5 cm. Reflux: NA SMALL SAPHENOUS VEIN: Saphenopopliteal Junction: 0.2 cm; Reflux: 0 ms Proximal: 0.2 cm; Reflux: 0 ms Distal: 0.3 cm; Reflux: 0 ms VEIN OF GIACOMINI: Size: NA Reflux: NA PERFORATORS: Location: Small saphenous vein distal segment and at the heel. Size: 0.3-0.4 cm. Reflux: 1044 ms at the heel. VARICOSITIES: Location: Proximal thigh and midcalf. Size: 0.3 cm. Reflux: 960 ms in the mid calf. 3. DEEP VENOUS ULTRASOUND OF THE LEFT LOWER EXTREMITY: Common Femoral Vein: Compressible, normal respiratory variation and augmented flow. Femoral Vein: Compressible, normal color flow and augmentation. Popliteal Vein: Compressible, normal augmentation. Deep Reflux: There is no evidence of reflux in the deep system in either the common femoral vein, superficial femoral or the popliteal vein. There is no evidence of a Yip's cyst. 4. SUPERFICIAL ULTRASOUND WITH DOPPLER OF LEFT LOWER EXTREMITY: GREAT SAPHENOUS VEIN: Saphenofemoral Junction: 0.8 cm; Reflux: 0 ms Proximal Thigh: 0.7 cm; Reflux: 0 ms Mid Thigh: 0.6 cm; Reflux: 0 ms Distal Thigh: 0.5 cm; Reflux: 0 ms At Knee: 0.4 cm; Reflux: 0 ms Proximal Calf: 0.5 cm; Reflux: 0 ms Mid Calf: 0.4 cm; Reflux: 0 ms Distal Calf: 0.3 cm; Reflux: 0 ms DUPLICATED MEDIAL GREAT SAPHENOUS VEIN: Diameter: 0.6 cm. Reflux: NA DUPLICATED LATERAL GREAT SAPHENOUS VEIN: Diameter: None imaged. Reflux: NA SMALL SAPHENOUS VEIN: Saphenopopliteal Junction: 0.2 cm; Reflux: 0 ms Proximal: 0.2 cm; Reflux: 0 ms Distal: 0.3 cm; Reflux: 0 ms VEIN OF GIACOMINI: Size: NA Reflux: NA PERFORATORS: Location: At the knee, mid and distal calf. Size: 0.2-0.3 cm. Reflux: NA VARICOSITIES: Location: Small saphenous vein at the distal segment. Proximal and distal thigh. Size: 0.3-0.4 cm. Reflux: NA US/US venous insuf bilat IMPRESSION: Right: Perforators with reflux at the heel. Varices with reflux in the mid calf. Left: [Perforators and varices without reflux. No venous insufficiency. Electronically signed by: Triston Murillo MD 12/10/2024 12:36 PM EDT
--- OUTSIDE RECORDS SUMMARY | 2024-12-10 11:25 | XMS_ITS | Encounter Summary ---
Author Organization [facility] Address [address] [place] [address] Care Team Providers Care Diamond Die Maker Name Role Phone Paulo Schwarz Primary Care Provider [phone] Encounter Details Date Type Department Care Team ([facility] st Contact Info) Description 09/29/2019 Orders Only [facility] Orthopedic Surgery [address] [facility] [address] [place] [phone] Suresh Velazquez MD [address] [place] [address] Social History Tobacco Use Types Packs/Day Years [...] of this encounter Results * Due to [place] state law, this organization might not be [...] chronicity documented in this encounter Care Teams Diamond Die Maker Relationship Specialty Start Date End Date Paulo Schwarz [address] [place] [address] [place] [address] PCP - General 01/07/08 documented as of this encounter
--- OUTSIDE RECORDS SUMMARY | 2024-12-10 11:25 | XMS_ITS | Encounter Summary ---
Author Organization [facility] Address [address] [place] [address] [place] [phone] Phone Care Team Providers Care Temporary Help Agency Referral Clerk Name Role Phone Manuel Foy Primary Care Provider + Encounter Details Date Type Department Care Team (Late st Contact Info) Description 02/23/2024 Procedure Pass [facility] [address] [place] [address] Social History Tobacco Use Types Packs/Day Years [...] 1:31 PM Maria G Oconnell RN * [place] Suicide Severity Rating Scale (Screener/Recent Self-Report) Question [...] documented as of this encounter Care Teams Temporary Help Agency Referral Clerk Relationship Specialty Start Date End Date Manuel Foy PA [facility] [place] [address] PCP - General Physician Fire Claims Adjuster 02/23/24 documented as of this encounter Additional Source Comments The information contained in this document represents components of the legal health record. It is not the complete legal health record.[facility]
--- OUTSIDE RECORDS SUMMARY | 2024-12-10 11:25 | XMS_ITS | Encounter Summary ---
Author Organization [facility] Address [address] [place] [address] [place] [address] Phone Care Team Providers Care Labor Relations Specialist Name Role Phone Manuel Foy Primary Care Provider + Encounter Details Date Type Department Care Team (Late st Contact Info) Description 02/23/2024 Procedure Pass [facility] [address] [place] [address] Social History Tobacco Use Types Packs/Day Years [...] 1:31 PM Maria G Oconnell RN * [place] Suicide Severity Rating Scale (Screener/Recent Self-Report) Question [...] documented as of this encounter Care Teams Labor Relations Specialist Relationship Specialty Start Date End Date Manuel Foy PA [facility] [place] [address] PCP - General Physician Carpet Renovator 02/23/24 documented as of this encounter Additional Source Comments The information contained in this document represents components of the legal health record. It is not the complete legal health record.[facility]
--- OUTSIDE RECORDS SUMMARY | 2024-12-10 11:25 | XMS_ITS | Patient Health Record ---
Author Organization [facility] Address [address] [place], [place] [address] Care Team Providers Care Lead Refiner Name Role Phone [facility] Primary Care Provider Josiane Mohr Unavailable Edda Granado Unavailable Reason For Referral No Information Encounters Encounter Location Date Provider Diagnosis [facility] [address] [place] [phone] 09/14/2024 Edda Granado [facility] [address] [place] [phone] 10/06/2024 Edda Granado [facility] [phone] 10/15/2024 Edda Granado Plan Of Treatment No Information Insurance Providers Payer Name Payer Address Payer Phone Subscriber Number Group Number Insured Name Patient Relationship to Insured Coverage Start Date Coverage End Date [place] Medicaid Standard [address] [place] [address] [id number] Chuy Castro Self - patient is the insured
--- OUTSIDE RECORDS SUMMARY | 2024-12-10 11:25 | XMS_ITS | Encounter Summary ---
Author Organization [facility] Address [address] [place] [address] [place] [address] Phone Care Team Providers Care Guest Relations Receptionist Name Role Phone Manuel Foy Primary Care Provider + Encounter Details Date Type Department Care Team (Late st Contact Info) Description 02/28/2024 Procedure Pass [facility] [address] [place] [address] Social History Tobacco Use Types Packs/Day Years [...] documented as of this encounter Care Teams Guest Relations Receptionist Relationship Specialty Start Date End Date Manuel Foy PA [address] [place] [address] PCP - General Physician Power Reactor Supervisor 02/23/24 documented as of this encounter Additional Source Comments The information contained in this document represents components of the legal health record. It is not the complete legal health record.[facility]
--- OUTSIDE RECORDS SUMMARY | 2024-12-10 11:25 | XMS_ITS | Patient Health Record ---
Author Organization [facility] Address [address] [place] [address] Care Team Providers Care Metallurgist Process Name Role Phone Karishma(inactive) Paulo KITCHEN Primary Care Provider U Jaswinder George Jr Unavailable [phone] Reason For Referral No Information Medications [...] Problem Status W/U Status Risk Notes Problem 50767078 Rectal bleeding (K62.5) Active confirmed Problem [id number] Jordan's esophagus without dysplasia (K22.70) Active confirmed Plan Of Treatment Future Test Test Name Order Date UPPER GI ENDOSCOPY 06/24/2015 COLONOSCOPY 06/24/2015 Insurance Providers Payer Name Payer Address Payer Phone Subscriber Number Group Number Insured Name Patient Relationship to Insured Coverage Start Date Coverage End Date MEDICARE OF [place] [address] [place] [address] [id number] WES OLIVO Self - patient is the insured MEDICAID OF [facility] [address] [place] [phone] [id number] WES OLIVO Self - patient is the insured Medical (General) History Medical History History ICD Code Jordan's esophagus right knee arthritis Denies [place],DM,CVA,Lung disease,renal dise ase Surgical History Surgery Date(Month/Year) gastric bypass hernia repair left hip replacement right hip replacement trachiotomy colostomy
--- OUTSIDE RECORDS SUMMARY | 2024-12-10 11:25 | XMS_ITS | Encounter Summary ---
Author Organization [facility] Address [address] [place] [address] Care Team Providers Care Master Ship Name Role Phone Paulo Schwarz Primary Care Provider [phone] Encounter Details Date Type Department Care Team ([facility] st Contact Info) Description 09/19/2012 Orders Only [facility] Orthopedic Surgery [address] [address] Suresh Velazquez MD [address] [place] [address] Social History Tobacco Use Types Packs/Day Years [...] thigh documented in this encounter Care Teams Master Ship Relationship Specialty Start Date End Date Paulo Schwarz [address] [place] [address] [place] [address] PCP - General 01/07/08 documented as of this encounter
--- OUTSIDE RECORDS SUMMARY | 2024-12-10 11:25 | XMS_ITS | Clinical Summary ---
Author Organization [facility] it Address [address] [place] [address] Care Team Providers Care Carpet Tile Layer Name Role Phone Unavailable Primary Care Provider [...]
--- OUTSIDE RECORDS SUMMARY | 2024-12-10 11:25 | XMS_ITS | Clinical Summary ---
Author Organization [facility] Address [address] [place] [address] Phone Care Team Providers Care Certified Court/Medical Interpreter Name Role Phone Manuel Foy Primary Care [...] Active ferrous sulfate 324 mg (65 mg chipewwa iron) TbEC Take 324 mg by mouth [...] DEPRESSION SCREENING 1978 SMOKING Hx and SMOKELESS TOBACCO SCREENING 12/01/1979 HEPATITIS C SCREENING 1984 HIV ONE-TIME SCREENING (18-6 5 YEARS) 1984 COLOGUARD 12/01/2011 COLONOSCOPY 12/01/2011 COLORECTAL CANCER SCREENING 12/01/2011 FIT TEST 12/01/2011 FOBT 12/01/2011 SIGMOIDOSCOPY 12/01/2011 VIRTUAL COLONOSCOPY 12/01/2011 ZOSTER VACCINES (1 of 2) 2016 PNEUMOCOCCAL VACCINES (50+ years) (2 of 2 - PCV) 04/23/2020 04/23/2019 COVID-19 VACCINE (2 - 2023-2 5 season) 2023 06/30/2022 INFLUENZA VACCINE (#1) 2024 , 04/23/2019 SCREENING FOR DIABETES 03/01/2027 03/01/2024 HEPATITIS A [...] Date Last Indicated MDR-GN 03/01/2024 03/01/2024 Insurance [facility] [employer] PPO MEDICARE REPLACEMENT MEDICARE PART A & B [facility] [employer] PPO MEDICARE REPLACEMENT MEDICARE PART A & B [place] [facility] RE[facility] MEDICARE PART A & B [place] MEDICARE REPLACEMENT MEDICARE PART A & B [facility] [employer] O MEDICARE REPLACEMENT MEDICARE PART A & B Member Subscriber Plan / Payer (Ef fective 2004-) Name:Chuy Castro Member ID:[id number] Relation to Subscriber:Self Name:Chuy Castro Subscriber ID:[id number] Payer ID:[id number] Group ID:Not on file Type:Medicare Address: [facility] [employer] [address] [place] [phone] [facility] MEDICARE REPLACEMENT MEDICARE PART A & B Member Subscriber Plan / Payer (Ef fective 2004-Present) Name:Castro, Chuy Rafael Member ID:[id number] Relation to Subscriber:Self Name:Chuy Castro Subscriber ID:[id number] Payer ID:[id number] Group ID:Not on file Type:Medicare Address: [employer] [address] [place] [id number] Advance Directives For more information, please contact: [phone] (9AM - 5PM Mar/[facility], Saturday-Saturday) * Full Code (Latest Code Status on File) Date Activated Date Inactivated Comments 02/28/2024 12:26 AM Question Answer Comments Code Status Confirmed With: Patient Care Teams Certified Court/Medical Interpreter Relationship Specialty Start Date End Date Manuel Foy PA [address] [place], [place] [id number] PCP - General Physician Power Generation Turbine Room Operator 02/23/24 Additional Source Comments The information contained in this document represents components of the legal health record. It is not the complete legal health record.[facility]
--- OUTSIDE RECORDS SUMMARY | 2024-12-10 11:25 | XMS_ITS | Encounter Summary ---
Author Organization [facility] Address [address] [place] [address] Care Team Providers Care Movie Producer Name Role Phone Paulo Schwarz Primary Care Provider Encounter Details Date Type Department Care Team (Late st Contact Info) Description 04/22/2017 Orders Only [facility] Pre-Admission Testing [address] [place] [address] Lexie Rust NP Social History Tobacco Use [...] of this encounter Procedures * Due to [place] state law, this organization might not be [...] in this encounter Results * Due to [place] state law, this organization might not be sharing negative HIV tests. * MRSA CULTURE SCREEN, NASAL ONLY (04/22/2017 12:22 PM EST) Methicillin Resistant Staphylococcus Aureus Screen SEE NOTE [facility] Comment: MRSA CULTURE SCREEN MICRO NUMBER: [id number] TEST STATUS: FINAL SPECIMEN SOURCE: NOT GIVEN SPECIMEN QUALITY: ADEQUATE RESULT: No methicillin resistant Staphylococcus aureus (MRSA) isolated. 04/22/2017 12:2 2 PM EST 04/22/2017 5:52 PM EST Narrative Resulting Agency Comment [id number] Lexie Rust DEPARTMENT STORE DOOR [facility] Final Result Performing Organization Address City/State/[facility] Co de Phone Number [facility] [address] [place] [address] * EKG-TO BE READ AND BILLED BY [...] R TG Final Result Performing Organization Address [facility] Co de Phone Number [facility] * CULTURE, URINE, ROUTINE (04/22/2017 9:54 AM EST) Bacteria culture (Urine) SEE NOTE [facility] Comment: CULTURE, URINE, ROUTINE MICRO NUMBER: [id number] TEST STATUS: FINAL SPECIMEN SOURCE: NOT GIVEN SPECIMEN QUALITY: ADEQUATE RESULT: Single organism less than 10,000 CFU/mL isolated. These organisms, commonly found on external and internal genitalia, are considered colonizers. No further testing performed. 04/22/2017 9:54 AM EST 04/22/2017 2:49 PM EST Narrative Resulting Agency Comment [id number] Lexie Rust NP LABORATORY Final Result Performing Organization Address [facility] de Phone Number [facility] [address] [place] [address] * PROTHROMBIN TIME (PT) (INR), BLOOD (04/22/2017 9:54 AM EST) INR 1.0 [facility] Comment: Reference Range 0.9-1.1 Moderate-intensity Warfarin Therapy 2.0-3.0 Higher-intensity Warfarin Therapy 3.0-4.0 PT 10.3 9.0 - 11.5 sec [facility] Comment: For more information on this test, go to: http://[email or web address]/faq/LTA591 04/22/2017 9:54 AM EST 04/22/2017 2:49 PM EST Narrative Resulting Agency Comment [id number] us Lexie Rust NP LAB SAME DAY RESULT Final Re sult Performing Organization Address [facility] Co de Phone Number [facility] [address] [place] [address] * (ABNORMAL) CBC INCLUDES DIFFERENTIAL AND PLATELET [...] 2:49 PM EST Narrative Resulting Agency Comment [id number] Lexie Rust DEPARTMENT STORE DOOR [facility] SAME DAY RESULT Final Re sult Performing Organization Address City/State/[facility] Co de Phone Number [facility] [address] [place] [address] * (ABNORMAL) BASIC METABOLIC PANEL WITH (GFR) (04/22/2017 9:54 AM EST) Glucose 79 65 - 99 mg/dL [facility] Comment:Fasting reference in terval Urea Nitrogen Blood (BUN) 6(L) 7 - 25 mg/dL [facility] Creatinine 0.88 0.70 - 1.33 mg/dL [facility] Comment: For patients >49 years of age, the reference limit for Creatinine is approximately 13% higher for people identified as -Swiss. GFR 100 > OR = 60 mL/min/1. [...] needs for GFR calculation. Resulting Agency Comment [id number] us Lexie Rust NP LABORATORY Final Result Performing Organization Address City/State/[facility] Co de Phone Number [facility] [address] [place] [address] documented in this encounter Visit Diagnoses Diagnosis Pre-operative examination Preoperative examination, unspecified Primary osteoarthritis of right knee Primary localized osteoarthrosis, lower leg Sleep apnea, unspecified type Increased frequency of urination Urinary frequency documented in this encounter Care Teams Movie Producer Relationship Specialty Start Date End Date Paulo Schwarz [address] [place] [address] [place] [address] PCP - General 01/07/08 documented as of this encounter
--- OUTSIDE RECORDS SUMMARY | 2024-12-10 11:25 | XMS_ITS | Encounter Summary ---
Author Organization [facility] Address [address] [address] Phone Care Team Providers Care Global Cmo Name Role Phone Pacheco Vargas DO Primary Care Provider [phone] Manuel Foy Primary Care Provider + Encounter Details Date Type Department Care Team (Late st Contact Info) Description 04/09/2018 Transcribe Orders [facility] Specimen Processing [address] [address] Pacheco Vargas DO [address] [facility] [place] [address] [place] [address] [email or web address] Routine general medical examination at a health [...] EST) WBC 7.46 3.40 - 11.20 K/uL [facility] RBC 4.65 4.50 - 5.50 M/uL [facility] HGB 12.8(L) 13.0 - 17.0 g/dL [facility] HCT 39.9(L) 40.0 - 51.0 % [facility] PLT 256 130 - 400 K/uL [facility] MCV 85.8 79.0 - 98.0 fL [facility] MCH 27.5 27.0 - 34.8 pg [facility] MCHC 32.1 31.5 - 36.0 g/dL [facility] RDW 15.5(H) 10.8 - 14.6 % [facility] MPV 11.9 9.4 - 12.4 fl [facility] NRBC 0.00 0.00 /100 WBCs [facility] ABSOLUTE NRBC 0.00 0.00 K/uL [facility] Blood 04/09/2018 10:0 3 AM EST 04/09/2018 11:52 AM EST us Pacheco Vargas DO LAB BLOOD ORDERABLES Final Resul t Performing Organization Address City/State/[facility] Co de Phone Number [facility] [address] [place] [address] documented in this encounter Visit Diagnoses Diagnosis [...] documented as of this encounter Care Teams Global Cmo Relationship Specialty Start Date End Date Pacheco Vargas DO PCP - General Internal Medicine 04/09/18 02/22/24 Manuel Foy PA [address] [place] [address] PCP - General Physician Pole Peeling Machine Operator 02/23/24 documented as of this encounter Additional Source Comments The information contained in this document represents components of the legal health record. It is not the complete legal health record.[facility]
--- OUTSIDE RECORDS SUMMARY | 2024-12-10 11:26 | XMS_ITS | Continuity of Care Document ---
Author Organization [facility] Address [address] [place] [address] Care Team Providers Care Certified Real Estate Appraiser Name Role Phone Paulo Schwarz Primary Care Provider [phone] Encounters Date Type Department Care Team Description 11/13/2019 Travel 11/13/2019 1:15 PM EDT Radiology [facility] Xray [address] [facility] [address] [place] [address] Right knee pain, unspecified chronicity 11/13/2019 1:30 PM EDT Consult (Initial) [facility] Orth[facility] [address] [facility] [address] [place] [address] Suresh Velazquez MD Status post total right knee replacement (Primary Dx) 10/06/2019 Travel 10/01/2019 Travel 09/29/2019 Orders Only [facility] [address] [facility] [address] [place] [address] Suresh Velazquez MD 09/24/2019 Telephone [facility] [address] [facility] [address] [place] [address] Suresh Velazquez MD Error 09/23/2019 Orders Only [facility] [address] [facility] [address] [place] [address] Suresh Velazquez MD 09/23/2019 Travel 09/22/2019 Telephone [facility] [address] [facility] [address] [place] [address] Suresh Velazquez MD Imaging Request 05/20/2017 Telephone [facility] [address] [facility] [address] [place] [address] Suresh Velazquez MD Patient Questions 05/16/2017 Home Visit Suresh Villanueva MD, MD 05/16/2017 Refill [facility] [address] [facility] [address] [place] [address] Suresh Velazquez MD Refill Request 05/16/2017 Telephone [facility] [address] [facility] [address] [place] [address] Suresh Velazquez MD Refill Request 05/14/2017 Home Visit Suresh Villanueva MD, MD 05/14/2017 Telephone [facility] Orthopedics 123 [facility] [address] [place] [address] Suresh Velazquez MD VNA Communication 05/14/2017 Telephone [facility] [address] [address] Suresh Velazquez MD Patient Questions 05/06/2017 Minor Procedure/Test NON FC [facility] [address] [place] [address] Suresh Velazquez MD 05/06/2017 [facility] [address] [place] [address] Suresh Velazquez MD 05/02/2017 Orders Only NON FC [facility] [address] [place] [address] Suresh Velazquez MD 04/23/2017 Orders Only [facility] Cardiology [address] [place] [address] [address] [place] [address] Peggy Gomez Tech 04/22/2017 Orders Only [facility] Pre-Admission Testing [address] [place] [address] Lexie Rust NP 04/22/2017 9:30 AM EST Office Visit [facility] Pre-Admission Testing [address] [place] [address] Lexie Rust NP Pre-operative examination (Primary Dx); Primary osteoarthritis of right knee; Sleep apnea, unspecified type; Increased frequency of urination; Gastroesophageal reflux disease; Deep vein thrombosis (DVT) of proximal lower extremity, unspecified chronicity, unspecified laterality; Obesity, unspecified classification, unspecified obesity type, unspecified whether serious comorbidity present; Iron deficiency anemia, unspecified iron deficiency anemia type; Vitamin B 12 deficiency 04/04/2017 Telephone [facility] [address] [address] Suresh Velazquez MD Patient Questions 03/21/2017 2:30 PM EST Office Visit [facility] [address] [address] Suresh Velazquez MD Primary osteoarthritis of right knee (Primary Dx) 11/15/2016 7:45 AM EDT Office Visit [facility] [address] [address] Ld Mensah PA Primary osteoarthritis of right knee (Primary Dx) 04/19/2016 9:30 AM EST Office Visit [facility] [address] [address] Suresh Velazquez MD Osteoarthrosis involving lower leg (Primary Dx) 09/02/2015 9:15 AM EDT Consult (Initial) [facility] [address] [address] Suresh Velazquez MD Osteoarthrosis involving lower leg (Primary Dx) 12/06/2014 Telephone [facility] [address] [place] [address] Stuart Herrera NP Refill Request 11/05/2014 10:45 AM EDT Radiology [facility] [address] [place] [address] Bilateral hip pain 11/05/2014 11:45 AM EDT Office Visit [facility] [address] [place] [phone] Stuart Herrera NP Muscle strain of gluteal region, unspecified laterality, initial encounter (Primary Dx) 11/04/2014 Orders Only [facility] [address] [place] [address] Stuart Herrera NP 07/29/2014 Orders Only NON FC [facility] [address] [place] [address] Sv, Unknown Provider 07/29/2014 2:00 PM EDT Consult (Initial) [facility] [address] [address] Stuart Herrera NP Muscle strain of left gluteal region, initial encounter (Primary Dx) 07/27/2014 Telephone [facility] Orthopedics [address] [address] Suresh Velazquez MD Patient Questions 03/24/2014 10:30 AM EST Office Visit [facility] Suite [facility] [address] [address] Becca Du NP Sciatica (Primary Dx) 03/17/2014 Telephone [facility] Suite [facility] [address] [address] Suresh Velazquez MD Patient Questions 07/28/2013 Telephone [facility] Suite [facility] [address] [address] Suresh Velazquez MD Letter/form Request (dr velazquez) 07/01/2013 Consult (Initial) REHABILITATION UNSPEC Provider, Unknown 04/27/2013 3:00 PM EST Office Visit [facility] Suite [facility] [address] [address] Becca Du NP Iliotibial band syndrome (Primary Dx) 04/07/2013 Telephone [facility] [address] [address] Suresh Velazquez MD No Show 02/02/2013 Refill [facility] [address] [place] [address] Suresh Velazquez MD Refill Request 01/21/2013 Refill [facility] [address] [facility] [address] [place] [address] Suresh Velazquez MD Refill Request (marcus) 01/08/2013 Refill [facility] [address] [facility] [address] [place] [address] Suresh Velazquez MD Refill Request 01/07/2013 Letter/Form [facility] [address] [facility] [address] [place] [address] Suresh Velazquez MD 12/23/2012 Refill [facility] [address] [facility] [address] [place] [address] Suresh Velazquez MD Refill Request 12/18/2012 10:45 AM EDT Office Visit [facility] [address] [facility] [address] [place] [address] Suresh Velazquez MD Osteoarthritis of the pelvic region and thigh (Primary Dx) 12/12/2012 Telephone [facility] [address] [facility] [address] [place] [address] Suresh Velazquez MD Other (dr velazquez) 12/10/2012 Telephone [facility] [address] [facility] [address] [place] [address] Suresh Velazquez MD Patient Questions (Dr. Velazquez) 12/09/2012 Refill [facility] [address] [facility] [address] [place] [address] Suresh Velazquez MD Refill Request 12/08/2012 Orders Only [facility] [address] [facility] [address] [place] [address] Suresh Velazquez MD 12/08/2012 Refill [facility] [address] [facility] [address] [place] [address] Suresh Velazquez MD Refill Request 12/03/2012 Refill [facility] [address] [facility] [address] [place] [address] Suresh Velazquez MD Refill Request ( ) 12/01/2012 Orders Only ORTHO SURG UNSPECIFIED Suresh Velazquez MD 11/27/2012 Telephone [facility] [address] [facility] [address] [place] [address] Suresh Velazquez MD Other (Becca Wagneruld ) 11/26/2012 Refill [facility] [address] [facility] [address] [place] [address] Suresh Velazquez MD Refill Request (Dr. Velazquez ) 11/24/2012 Orders Only ORTHO SURG UNSPECIFIED Suresh Velazquez MD 11/19/2012 [facility] NON FC [facility] [address] [place] [address] Suresh Velazquez MD 11/14/2012 Orders Only NON FC [facility] [address] [place] [address] Suresh Velazquez MD 10/27/2012 Orders Only [facility] Cardiology [address] [facility] [address] [place] [address] Lin John Tech 10/27/2012 11:15 AM EDT Office Visit [facility] Pre-Admission Testing [address] [place] [address] Khurram Sunshine MD Pre-operative examination (Primary Dx); Osteoarthritis of hip; Sleep apnea; Deep vein thrombosis; Gastroesophageal reflux disease; Seizures; Urinary frequency; Obesity 10/09/2012 Refill [facility] [address] [facility] [address] [place] [address] Suresh Velazquez MD Refill Request 09/19/2012 Orders Only [facility] [address] [facility] [address] [place] [address] Suresh Velazquez MD 09/05/2012 Refill [facility] [address] [facility] [address] [place] [address] Suresh Velazquez MD Refill Request 09/05/2012 11:00 AM EDT Consult (Initial) [facility] [address] [facility] [address] [place] [address] Suresh Velazquez MD Osteoarthritis of the pelvic region and thigh (Primary Dx) 07/04/2010 3:45 PM EDT Office Visit [facility] [address] [facility] [address] [place] [address] Suresh Velazquez MD DJD (degenerative joint disease) of hip (Primary Dx) 05/05/2010 Telephone [facility] [address] [facility] [address] [place] [address] Suresh Velazquez MD No Show (Balcom) 02/14/2010 Telephone [facility] [address] [facility] [address] [place] [address] Suresh Velazquez MD Cancellation (Balcom) 12/28/2009 Telephone [facility] [address] [facility] [address] [place] [address] Suresh Velazquez MD Patient Questions (BALCOM) 09/30/2009 Refill [facility] [address] [facility] [address] [place] [address] Suresh Velazquez MD Refill Request 09/14/2009 Refill [facility] [address] [facility] [address] [place] [address] Suresh Velazquez MD Refill Request 09/02/2009 Telephone [facility] [address] [facility] [address] [place] [address] Suresh Velazquez MD Patient Questions (balcom) 08/24/2009 Refill [facility] [address] [facility] [address] [place] [address] Suresh Velazquez MD Refill Request 08/04/2009 Refill [facility] [address] [address] Suresh Velazquez MD Refill Request 07/26/2009 9:15 AM EDT Office Visit [facility] [address] [address] Suresh Velazquez MD Osteoarth NOS-unspec (Primary Dx) 07/21/2009 Telephone [facility] [address] [address] Suresh Velazquez MD Patient Questions (BALCOM) 07/19/2009 Telephone [facility] [address] [address] Suresh Velazquez MD Patient Questions (balcom) 07/13/2009 Telephone [facility] [address] [address] Suresh Velazquez MD Patient Questions (balcom) 07/08/2009 Telephone [facility] [address] [address] Suresh Velazquez MD Patient Questions (Balcom ) 07/07/2009 Telephone [facility] [address] [address] Suresh Velazquez MD VNA Communication 07/07/2009 Telephone [facility] [address] [address] Suresh Velazquez MD VNA Communication (dr velazquez) 07/04/2009 Telephone [facility] [address] [address] Suresh Velazquez MD Patient Questions (Balcom ) 06/28/2009 Consult (Initial) NON FC [facility] [address] [place] [address] [facility], Unknown Provider 06/28/2009 [facility] NON FC [facility] [address] [place] [address] Suresh Velazquez MD 06/23/2009 Orders Only NON [facility] [address] [place] [address] Suresh Velazquez MD 06/09/2009 Orders Only [facility] Cardiology [address] [facility] [address] [place] [address] Lin John Tech 06/08/2009 Orders Only NON FC SA NON FC UNK Provider, Unknown 06/08/2009 8:00 AM EST Office Visit [facility] Pre-Admission Testing [address] [place] [address] [facility] [address] [place] [address] Lexie Rust NP Preop examination; Osteoarthritis of hip; Urinary frequency; Morbid obesity; DVT (deep venous thrombosis); GERD (gastroesophageal reflux disease); Sleep apnea 05/12/2009 Telephone [facility] [address] [place] [address] [place] [address] Suresh Velazquez MD Patient Questions (marcus) 05/06/2009 Orders Only [facility] [address] [place] [address] Suresh Velazquez MD 05/06/2009 1:15 PM EST Office Visit [facility] [address] [place] [address] [place] [address] Suresh Velazquez MD Osteoarth NOS-unspec (Primary Dx) 01/26/2009 Telephone [facility] [address] [place] [address] [place] [address] Paulo Schwarz Cancellation (Marcus ) 04/23/2008 Telephone [facility] [address] [place] [address] Suresh Velazquez MD 04/23/2008 Orders Only NON FC SA [facility] [address] [place] [address] Suresh Velazquez MD Allergies No known active [...] 04/23/2019 Social History Smoking Status as of 12/10/2024 Tobacco Use Types Packs/Day Years Used Date [...] Not on file Procedures * Due to [place] state law, [...] 11:55 AM EST Results * Due to [place] state law, [...] BLOOD COUNT 12.8(H) 3.9 - 11.0 x1000/uL [facility] RBC 4.38 4.30 - 5.80 mil/ul [facility] Hemoglobin 12.1(L) 12.5 - 17.0 g/dL [facility] HCT (HEMATOCRIT) 36.8 36.0 - 50.0 % [facility] MCV 84 80 - 100 fL [facility] MCH 28 27 - 33 pg [facility] MCHC 33 31 - 36 g/dL [facility] RDW 16.0(H) 11.4 - 14.4 % [facility] PLATELETS 201 150 - 450 x1000/uL [facility] 05/07/2017 6:05 AM EST 05/07/2017 6:05 AM EST us Suresh Velazquez MD LABORATORY Final Result Performing Organization Address City/[facility]/ZIP Co de Phone Number [facility] [address] [place] [address] * (ABNORMAL) BASIC METABOLIC PANEL (05/07/2017 6:05 AM EST) Only the most recent of7 resultswithin the time period is included. Glucose 94 65 - 99 mg/dL [facility] BUN 11 5 - 26 mg/dL [facility] CREATININE 0.76 0.5 - 1.5 mg/dL [facility] BUN/Creatinine Ratio 14 8 - 27 [facility] GLOM FILT RATE, EST 106.4 >59 mL/min [facility] IF -LAURA N 123.3 >59 mL/min [facility] SODIUM 143 134 - 144 mEq/L [facility] POTASSIUM 3.9 3.6 - 5.6 mEq/L [facility] CHLORIDE 107 96 - 109 mEq/L [facility] CARBON DIOXIDE 29 20 - 32 mEq/L [facility] ANION GAP 7.0(L) 8 - 15 [facility] CALCIUM 8.4 8.3 - 10.0 mg/dL [facility] 05/07/2017 6:05 AM EST 05/07/2017 6:05 AM EST us Suresh Velazquez MD LABORATORY Final Result Performing Organization Address City/[facility]/ZIP Co de Phone Number [facility] [address] [place] [address] * KNEE UNILATERAL 1 OR 2 VIEWS (05/06/2017 3:31 PM EST) RADIOLOGY REPORT [facility] Department of Radiology [address] [place] [address], [id number] Name: WES OLIVO : 67 Date of Service: 05/06/17 1052 Acct Number: [id number] Order Number: [id number] Location: [facility] Report Number: [id number] Service: REG COC/ Requesting Physician: Suresh Velazquez ([facility]) Category: RADIOLOGY [facility] Exam: KNEE 1 OR 2 VIEWS Right [...] hardware failure. Date/Time of Dictation: 05/06/17 1634 Paper Making Machine Operator (if applicable): Approved By Attending Radiologist: Deacon Hernandez 05/06/17 1634 [facility] Department of Radiology [address] [place] [address], [address] [facility] Anatomical Region Laterality Modality Other 05/06/2017 3:31 PM EST Narrative 05/06/2017 4:34 PM EST Reason for Study/History: Department of Radiology TEST(S) PROCESSED BY [facility] XRAY us Suresh Velazquez MD [facility] Final Result * UNSPECIFIED MAJOR PROCEDURE (05/06/2017) Narrative Procedure Note Suresh Velazquez MD - 05/06/2017 10:19 AM EST OPERATIVE REPORT DATE OF OPERATION: 05/06/2017 ATTENDING SURGEON: Dr. Suresh Velazquez. PREOPERATIVE DIAGNOSIS: Degenerative joint disease, right knee. POSTOPERATIVE DIAGNOSIS: Degenerative joint disease, right knee. PROCEDURE PERFORMED: Right total knee arthroplasty. TOURNIQUET TIME: 47 minutes. [employer] CONSULTANT: Cory Kaiser, advanced practitioner certified. IMPLANTS USED: [...] 10:04 A TT: 10:19 A Doc #: [id number] cc: Suresh Velazquez MD Suresh Velazquez MD PROCEDURES Final Result * BLOOD TYPE AND ANTIBODY SCREEN (05/02/2017 3:20 PM EST) Only the most recent of3 resultswithin the time period is included. BLOOD GROUP ABO O [facility] RH-(D) Positive [facility] ANTIBODY SCREEN Negative Negative [facility] 05/02/2017 3:20 PM EST 05/02/2017 3:20 PM EST Suresh Velazquez MD LABORATORY Final Result Performing Organization Address [facility] Co de Phone Number [facility] [address] [place] [address] * MRSA CULTURE SCREEN, NASAL ONLY (04/22/2017 12:22 PM EST) Only the most recent of2 resultswithin the time period is included. Methicillin Resistant Staphylococcus Aureus Screen SEE NOTE [facility] Comment: MRSA CULTURE SCREEN MICRO NUMBER: [id number] TEST STATUS: FINAL SPECIMEN SOURCE: NOT GIVEN SPECIMEN QUALITY: ADEQUATE RESULT: No methicillin resistant Staphylococcus aureus (MRSA) isolated. 04/22/2017 12:2 2 PM EST 04/22/2017 5:52 PM EST Narrative Resulting Agency Comment [id number] Lexie Rust NP LABORATORY Final Result [facility] [address] [place] [address] * EKG-TO BE READ AND BILLED BY [...] AM EST 04/22/2017 10:11 PM EST Result [facility] Lexie Rust NP CARDIOVASCULAR-WITH INBSKT R TG Final Result Performing Organization Address City/[facility]/ZIP Co de Phone Number [facility] * CULTURE, URINE, ROUTINE (04/22/2017 9:54 AM EST) Only the most recent of2 resultswithin the time period is included. Bacteria culture (Urine) SEE NOTE [facility] Comment: CULTURE, URINE, ROUTINE MICRO NUMBER: [id number] TEST STATUS: FINAL SPECIMEN SOURCE: NOT GIVEN SPECIMEN QUALITY: ADEQUATE RESULT: Single organism less than 10,000 CFU/mL isolated. These organisms, commonly found on external and internal genitalia, are considered colonizers. No further testing performed. 04/22/2017 9:54 AM EST 04/22/2017 2:49 PM EST Narrative Resulting Agency Comment [id number] Result [facility] Lexie Rust NP LABORATORY Final Result Performing Organization Address [facility] Co de Phone Number [facility] [address] [place] [address] * PROTHROMBIN TIME (PT) (INR), BLOOD (04/22/2017 9:54 AM EST) Pathologist [facility] INR 1.0 [facility] Comment: Reference Range 0.9-1.1 Moderate-intensity Warfarin Therapy 2.0-3.0 Higher-intensity Warfarin Therapy 3.0-4.0 PT 10.3 9.0 - 11.5 sec [facility] Comment: For more information on this test, go to: http://education.[employer]/faq/[email or web address] 04/22/2017 9:5 4 AM EST 04/22/2017 2:49 PM EST Narrative Resulting Agency Comment [id number] Lexie Rust PROFESSIONAL HEALTHCARE REPRESENTATIVE LAB SAME DAY RESULT Final Re sult [facility] [address] [place] [address] * (ABNORMAL) CBC INCLUDES DIFFERENTIAL AND PLATELET [...] 2:49 PM EST Narrative Resulting Agency Comment [id number] us Haylee Kaune PROFESSIONAL HEALTHCARE REPRESENTATIVE LAB SAME DAY RESULT Final Re sult [facility] [address] [place] [address] * (ABNORMAL) BASIC METABOLIC PANEL WITH (GFR) (04/22/2017 9:54 AM EST) Only the most recent of2 resultswithin the time period is included. Pathologist [facility] Glucose 79 65 - 99 mg/dL [facility] Comment:Fasting reference in terval Urea Nitrogen Blood (BUN) 6(L) 7 - 25 mg/dL [facility] Creatinine 0.88 0.70 - 1.33 mg/dL [facility] Comment: For patients >49 years of age, the reference limit for Creatinine is approximately 13% higher for people identified as -Cambodian. GFR 100 > OR = 60 mL/min/1. [...] needs for GFR calculation. Resulting Agency Comment [id number] us Lexie Rust NP LABORATORY Final Result Performing Organization Address City/State/[facility] Co de Phone Number [facility] [address] [place] [address] * KNEE 3 VW MIN W/OBLIQUES (03/21/2017 5:24 PM EST) RADIOLOGY REPORT [facility] Department of Radiology [address] [place] [address], [address] Name: WES OLIVO : 67 Date of Service: 03/21/17 1445 Acct Number: [id number] Order Number: [id number] Location: [facility] Report Number: [id number] Service: REG REF/ Requesting Physician: Suresh Velazquez ([facility]) Category: ORTHOPEDIC RADIOLOGY [facility] Exam: KNEE 3 VW MIN Right Signs/Symptoms: [...] to large effusion. Date/Time of Dictation: 03/21/171827 Paper Making Machine Operator (if applicable): Approved By Attending Radiologist: Doni Pedro 03/21/171827 [facility] Department of Radiology [address] [place] [address], [address] [facility] Anatomical Region Laterality Modality Other 03/21/2017 5:24 PM EST Narrative 03/21/2017 6:28 PM EST Reason for Study/History: Department of Radiology TEST(S) PROCESSED BY [facility] XRAY Suresh Velazquez MD [facility] Final Result * XRAY KNEE AP LAT & OBLQ MIN 3 VW - RIGHT (09/02/2015 11:21 AM EDT) RADIOLOGY REPORT [facility] Department of Radiology [address] [place] [address], [phone] Name: WES OLIVO : 67 Date of Service: 09/02/15930 Acct Number: [id number] Order Number: [id number] Location: [facility] Report Number: [id number] Service: REG REF/ Requesting Physician: Suresh Velazquez ([facility]) Category: ORTHOPEDIC RADIOLOGY [facility] Exam: KNEE 3 VW MIN Right Signs/Symptoms: [...] compartment osteoarthritis. Date/Time of Dictation: 09/02/15 1125 Paper Making Machine Operator (if applicable): Approved By Attending Radiologist: Tobi Gray 09/02/15 1125 [facility] Department of Radiology [address] [place] [address], [phone] [facility] RAD Anatomical Region Laterality Modality Other 09/02/2015 11:2 1 AM EDT Narrative 09/02/2015 11:26 AM EDT Reason for Study/History: Department of Radiology TEST(S) PROCESSED BY [facility] XRAY Suresh Velazquez MD [facility] Final Result * XRAY HIPS WITH [...] the time period is included. RADIOLOGY REPORT [facility] Department of Radiology [address] [place] [address], [phone] Name: WES OLIVO : 67 Date of Service: 07/29/14 1425 Acct Number: [id number] Order Number: [id number] Location: [facility] Report Number: [id number] Service: PRE REF/ Requesting Physician: Stuart Velez ([facility]) Category: ORTHOPEDIC RADIOLOGY [facility] Exam: HIP UNILAT 2 VIEWS Left Signs/Symptoms: [...] Approved Electronically By/Date: Alfonzo Peterson 07/29/14 1538 [facility] Department of Radiology [address] [place] [address], [phone] [facility] RAD Anatomical Region Laterality Modality Other 07/29/2014 3:34 PM EDT Narrative 07/29/2014 3:39 PM EDT Reason for Study/History: Department of Radiology TEST(S) PROCESSED BY [facility] XRAY us Unknown Provider [facility] Final Resul t * PELVIS 1 OR 2 VIEWS (07/29/2014 3:34 PM EDT) Only the most recent of8 resultswithin the time period is included. RADIOLOGY REPORT [facility] Department of Radiology [address] [place] [address], [phone] Name: WES OLIVO : 67 Date of Service: 07/29/14 1425 Acct Number: [id number] Order Number: [id number] Location: [facility] Report Number: [id number] Service: PRE REF/ Requesting Physician: Stuart Vleez ([facility]) Category: ORTHOPEDIC RADIOLOGY [facility] Exam: PELVIS 1 OR 2 VIEWS Signs/Symptoms: [...] Approved Electronically By/Date: Alfonzo Peterson 07/29/14 1538 [facility] Department of Radiology [address] [place] [address], [address] [facility] RAD Anatomical Region Laterality Modality Other 07/29/2014 3:34 PM EDT Narrative 07/29/2014 3:39 PM EDT Reason for Study/History: Department of Radiology TEST(S) PROCESSED BY [facility] XRAY us Unknown Provider [facility] Final Resul t * HIP UNILATERAL 2 [facility] (03/24/2014 4:40 PM EST) Only the most recent of4 resultswithin the time period is included. RADIOLOGY REPORT [facility] Department of Radiology [address] [place] [address], [phone] Name: WES OLIVO : 67 Date of Service: 03/24/14 1003 Acct Number: [id number] Order Number: [id number] Location: [facility] Report Number: [id number] Service: REG REF/ Requesting Physician: Becca Du ([facility]) Category: ORTHOPEDIC RADIOLOGY [facility] Exam: HIP UNILAT 2 VIEWS Right Signs/Symptoms: [...] view. Interpreting Resident: Date/Time of Dictation: 03/24/14 [facility] Approved Electronically By/Date: Michael Anders 03/24/14 1640 [facility] Department of Radiology [address] [place] [address], [phone] [facility] RAD Anatomical Region Laterality Modality Other 03/24/2014 4:40 PM EST Narrative 03/24/2014 4:40 PM EST Reason for Study/History: Department of Radiology TEST(S) PROCESSED BY [facility] XRAY Becca uD PROFESSIONAL HEALTHCARE REPRESENTATIVE [facility] Final Result * UNSPECIFIED DIAGNOSTIC PROCE (12/08/2012) Only the most recent of5 resultswithin the time period is included. Narrative Transcriptions Suresh Velazquez MD - 12/24/2012 12:00 AM EDT Suresh Velazquez MD LABORATORY Final Result * PELVIS 1 OR 2 VIEWS (11/19/2012 4:51 PM EDT) Only the most recent of2 resultswithin the time period is included. RADIOLOGY REPORT [facility] Department of Radiology [address] [place] [address], [phone] Name: WES OLIVO : 67 Date of Service: 11/19/12 1636 Acct Number: [id number] Order Number: [id number] Location: [facility] Report Number: [id number] Service: ADM IN/LEROY Requesting Physician: Suresh Velazquez ([facility]) Category: RADIOLOGY [facility] Exam: PELVIS 1 OR 2 VIEWS Signs/Symptoms: [...] Approved Electronically By/Date: Tracey Lawson 11/19/12 1652 [facility] Department of Radiology [address] [place] [address], [phone] [facility] Anatomical Region Laterality Modality Other 11/19/2012 4:51 PM EDT Narrative 11/19/2012 4:52 PM EDT Reason for Study/History: Department of Radiology TEST(S) PROCESSED BY [facility] XRAY Suresh Velazquez MD [facility] Final Result * HIP UNILATERAL 2 VIEW - RIGHT (11/19/2012 4:50 PM EDT) RADIOLOGY REPORT [facility] Department of Radiology [address] [place] [address], [phone] Name: WES OLIVO : 67 Date of Service: 11/19/12 1637 Acct Number: [id number] Order Number: [id number] Location: [facility] Report Number: [id number] Service: ADM IN/LEORY Requesting Physician: Suresh Velazquez ([facility]) Category: RADIOLOGY [facility] Exam: HIP 2 VIEWS UNILATERAL Right Signs/Symptoms: [...] Approved Electronically By/Date: Tracey Lawson 11/19/12 165 [facility] Department of Radiology [address] [place] [address], [phone] [facility] RAD Anatomical Region Laterality Modality Other 11/19/2012 4:50 PM EDT Narrative 11/19/2012 4:51 PM EDT Reason for Study/History: Department of Radiology TEST(S) PROCESSED BY [facility] XRAY Suresh Velazquez MD [facility] Final Result * UNSPECIFIED MAJOR PROCEDURE [...] extended neck offset. SURGEON: Suresh Velazquez MD APPLE SOLUTIONS CONSULTANT: Becca Du NP. INDICATIONS: The patient has [...] quadratus femoris and the inferior capsule. A kake blade was then used to release the [...] 2:48 P TT: 2:59 P Doc #: [id number] cc: Suresh Velazquez MD Suresh Velazquez MD PROCEDURES Final Result * HIP UNILAT 2 VIEWS (09/05/2012 12:25 PM EDT) RADIOLOGY REPORT [facility] Department of Radiology [address] [place] [address], [phone] Name: WES OLIVO : 67 Date of Service: 09/05/12 1056 Acct Number: [id number] Order Number: [id number] Location: [facility] Report Number: [id number] Service: REG REF/ Requesting Physician: Suresh Velazquez ([facility]) Category: ORTHOPEDIC RADIOLOGY [facility] Exam: HIP UNILAT 2 VIEWS Right Signs/Symptoms: [...] Approved Electronically By/Date: Vance Riggins 09/05/12 1226 [facility] Department of Radiology [address] [place] [address], [phone] [facility] RAD Anatomical Region Laterality Modality Other 09/05/2012 12:2 5 PM EDT Narrative 09/05/2012 12:26 PM EDT Reason for Study/History: Department of Radiology TEST(S) PROCESSED BY [facility] XRAY us Suresh Velazquez MD [facility] Final Result * (ABNORMAL) PROTHROMBIN TIME [...] EDT Reason for Study/History: TEST(S) PROCESSED BY [facility] XRAY Suresh Velazquez MD [facility] Final Result * UNSPECIFIED MAJOR PROCEDURE [...] 44 +12 cobalt chrome head,a size 8 [place] cementless stem with lateral neck. SURGEON: Suresh Velazquez MD. APPLE SOLUTIONS CONSULTANT: GHAZALA Gates. INDICATIONS: The patient has not [...] quadratus femoris and the inferior capsule. A kake bladewas then used to release the rotators [...] 5:42 P TT: 7:50 P Doc #: [id number] cc: Suresh Velazquez MD Suresh Velazquez MD [...] NP LABORATORY Final Result Performing Organization Address [facility] de Phone Number [facility] [address] [place] [address] * CULTURE, URINE (06/08/2009) URINE CULTURE CLEAN VOID SEE TEXT [facility] Comment: SOURCE: URINE NO GROWTH 06/08/2009 06/08/2009 5:3 4 PM EST Lexie Rust NP LABORATORY Final Result Performing Organization Address [facility] de Phone Number [facility] [address] [place] [address] * MRSA SCREEN, ANY SOURCE (06/08/2009) Result(s) SEE TEXT [facility] Comment: SOURCE: UNKNOWN NO METHICILLIN RESISTANT STAPHYLOCOCCUS AUREUS ISOLATED 06/08/2009 06/08/2009 5:3 4 PM EST Lexie Rust NP LABORATORY Final Result Performing Organization Address [facility] de Phone Number [facility] [address] [place] [address] * (ABNORMAL) CBC 5 PART DIFF (06/08/2009) [...] 5:3 4 PM EST us Lexie Rust PROFESSIONAL HEALTHCARE REPRESENTATIVE LAB SAME DAY RESULT Final Re sult [facility] [address] [place] [address] * URINALYSIS, COMPLETE (DIP & MICRO) (06/08/2009) [...] 5:3 4 PM EST us Lexie Rust PROFESSIONAL HEALTHCARE REPRESENTATIVE LAB SAME DAY RESULT Final Re sult [facility] [address] [place] [address] * XRAY HIPS BILATERAL MIN 2 VIEWS [...] (2 VWS) LT (04/23/2008 12:00 PM EST) [facility] RADIOLOGY REPORT Right knee, two views. Findings: [...] the right knee show TEST(S) PROCESSED BY [facility] XRAY Suresh Velazquez MD [facility] Final Result * KNEE (2 VWS) [...] of the left knee TEST(S) PROCESSED BY [facility] XRAY Suresh Velazquez MD [facility] Final Result Visit Diagnoses Diagnosis Start Date [...] total right knee replacement 11/13/2019 Care Teams Certified Real Estate Appraiser Relationship Specialty Start Date End Date Paulo Schwarz [address] [place] [address] [address] [place], [place] [address] PCP - General 01/07/08
--- OUTSIDE RECORDS SUMMARY | 2024-12-10 11:26 | XMS_ITS | Encounter Summary ---
Author Organization [facility] Address [address] [place] [address] Care Team Providers Care Taping Foreman Name Role Phone Paulo Schwarz Primary Care Provider [phone] Encounter Details Date Type Department Care Team ([facility] st Contact Info) Description 11/04/2014 Orders Only [facility] [address] [place] [phone] Stuart Herrera NP Social History Tobacco Use [...] of this encounter Results * Due to [place] [...] changes. Bilateral hip prostheses. us Stuart Herrera IRON MINER BLASTING IMG XRAY NO CONTRAST ORDERAB LES Final Result documented in this encounter Visit Diagnoses Diagnosis Bilateral hip pain- Primary Pain in joint, pelvic region and thigh Bilateral hip pain Pain in joint, pelvic region and thigh documented in this encounter Care Teams Taping Foreman Relationship Specialty Start Date End Date Paulo Schwarz [address] [place] [address] [place] [address] PCP - General 01/07/08 documented as of this encounter
--- OUTSIDE RECORDS SUMMARY | 2024-12-10 11:26 | XMS_ITS | Clinical Summary ---
Author Organization [facility] Address [address] [place] [address] Care Team Providers Care News Agent Name Role Phone Patient, Has No Pcp [...] AM EST): Patient with COPD presenting from [facility] for hypoxia after he was found to [...] a PCP but does not have a medical device assembler, may benefit from outpatient referral to decrease incidence of hospitalization. On discharge: -prednisone 40mg daily through 05/26 -Ambulatory pulmonology referral placed Assessment & Plan (05/24/2024 10:55 AM EST): Patient with COPD presenting from [facility] for hypoxia after he was found to [...] a PCP but does not have a medical device assembler, may benefit from outpatient referral to decrease incidence of hospitalization. -prednisone 40mg daily x 5 days (D1: 27) -duonebs q4hr PRN -albuterol 2.5mg neb q4hr prn -maintain SpO2 88-92% -Ambulatory pulmonology referral on discharge Assessment & Plan (05/23/2024 3:55 PM EST): Patient with COPD presenting from [facility] for hypoxia after he was found to [...] a PCP but does not have a medical device assembler, may benefit from outpatient referral to decrease incidence of hospitalization. -prednisone 40mg daily x 5 days (D1: 05/22) -duonebs q4hr scheduled -albuterol 2.5mg neb q4hr prn -maintain SpO2 88-92% -may benefit from pulm outpatient Assessment & Plan (05/22/2024 1:21 PM EST): Patient with COPD presenting from [facility] for hypoxia after he was found to [...] a PCP but does not have a medical device assembler, may benefit from outpatient referral to decrease [...] 100 mg p.o. nightly Patient discharged to [facility] program, they will be assisting him with transitional housing. Discussed with patient that he will need a primary care doctor and he states [facility] program has been helping him [...] several hospital admissions for withdrawal, presented from [facility] of acute hypoxic respiratory failure 2/2 COPDe. [...] several hospital admissions for withdrawal, presented from [facility] of acute hypoxic respiratory failure 2/2 COPDe. [...] several hospital admissions for withdrawal, presented from [facility] of acute hypoxic respiratory failure 2/2 COPDe. He has been on a 2 day detox from cocaine and alcohol. Reports last use was 05/20. Was given 10 mg of Valium by [facility] due to withdrawal symptoms and CIWA 10. -CIWA with rescue valium -continue home clonidine 0.1mg 3 times a day prn -thiamine, folic acid, Mag Assessment & Plan (05/22/2024 1:21 PM EST): History of cocaine and OUD with several hospital admissions for withdrawal, presented from [facility] of acute hypoxic respiratory failure 2/2 COPDe. He has been on a 2 day detox from cocaine and alcohol. Reports last use was 05/20. Was given 10 mg of Valium by [facility] due to withdrawal symptoms and CIWA 10. -CIWA with rescue valium -continue home clonidine 0.1mg 3 times a day prn -thiamine, folic acid, Mag Assessment & Plan (05/05/2024 11:43 AM EST): History of cocaine and OUD with several hospital admissions for withrawal, presented from [facility] (Section 21) in the setting of COVID. Was on a chlordiazepoxide at rehab, but last alcohol intake > 1 week [facility] [employer] to transfer here -continue home clonidine 0.1mg 3 times a day -continue home baclofen 10mg 3 times a day -nicotine patch as needed -thiamine and MV daily Assessment & Plan (05/04/2024 1:43 PM EST): History of cocaine and OUD with several hospital admissions for withrawal, presented from [facility] (Section 21) in the setting of COVID. 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 Was on a chlordiazepoxide at rehab, but last alcohol intake > 1 week [facility] C[employer]TER to transfer here -continue home clonidine 0.1mg 3 times a day -continue home baclofen 10mg 3 times a day -CIWA without meds, add if needed -nicotine patch as needed -thiamine and MV daily Assessment & Plan (05/02/2024 10:18 AM EST): History of cocaine and OUD with several hospital admissions for withrawal, presented from [facility] (Section 21) in the setting of COVID. Was on a chlordiazepoxide at rehab, but last alcohol intake > 1 week RE[employer] C[employer]TER to transfer here -continue home clonidine 0.1mg 3 times a day -continue home baclofen 10mg 3 times a day -CIWA without meds, add if needed -nicotine patch as needed -thiamine and MV daily Assessment & Plan (05/01/2024 1:12 PM EST): History of cocaine and OUD with several hospital admissions for lisa, presented from [facility] (Section 21) in the setting of COVID. 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 Transferred to the [facility] from [facility] under Section 21. Was evaluated [...] psychotropic medications. Transferred to the hospital from [facility] under Section 21. Was evaluated [...] psychotropic medications. Transferred to the hospital from [facility] under Section 21. I am [...] psychotropic medications. Transferred to the hospital from [facility] under Section 21. I am [...] psychotropic medications. Transferred to the hospital from [facility] under Section 21. I am unclear at this time if he is also under Section 12 (hospitalized for 02/2024). Will need to clarify with psychiatry CL here - HOLD loxapine 100 mg [not noted in [facility] MAR] - Continue Zyprexa 10 mg daily [[facility]] - Hydroxyzine 25 mg every 8 hours as needed - Pregabalin 75 mg three times a day - Formal psych evaluation requested to help clarify Section and medications Assessment & Plan (04/24/2024 11:29 AM EST): No home meds, although patient has Clonidine as prescribed in the past for anxiety PRN. Was hospitalized at [facility] with suicidal ideations & ACRHF in Feb 2024. -Clonidine 0.1 mg 3 times a day PRN Assessment & Plan (04/23/2024 9:51 AM EST): No home meds, although patient has Clonidine as prescribed in the past for anxiety PRN. Was hospitalized at [facility] with suicidal ideations & ACRHF in Feb 2024. -Clonidine 0.1 mg 3 times a day PRN Assessment & Plan (04/22/2024 9:22 AM EST): No home meds, although patient has Clonidine as prescribed in the past for anxiety PRN. Was hospitalized at [facility] with suicidal ideations & ACRHF in Feb 2024. -Clonidine 0.1 mg 3 times a day PRN Assessment & Plan (04/21/2024 9:58 AM EST): No home meds, although patient has Clonidine as prescribed in the past for anxiety PRN. Was hospitalized at [facility] with suicidal ideations & ACRHF in Feb 2024. -Clonidine 0.1 mg 3 times a day PRN Assessment & Plan (04/20/2024 11:03 AM EST): No home meds, although patient has Clonidine as prescribed in the past for anxiety PRN. Was hospitalized at [facility] with suicidal ideations & ACRHF in Feb 2024. -Clonidine 0.1 mg 3 times a day PRN Assessment & Plan (04/19/2024 12:45 PM EST): No home meds, although patient has Clonidine as prescribed in the past for anxiety PRN. Was hospitalized at [facility] with suicidal ideations & ACRHF in Feb [...] to re-establish care with PCP. He said [facility] program is helping him with [...] (05/22/2024 1:21 PM EST): Patient presenting from [facility] with acute hypoxia, placed on 4L. Initial [...] 11:29 AM EST): Patient was brought from [facility] due to developing altered mental status (lethargy) after x1 valium for alcohol withdrawal. Immediately became hypoxic with aspiration episode and briefly needed supplemental oxygen, then was sent to [facility] for evaluation. Patient's mental status was back to baseline on 1/4 PM. Last drink was 04/16/24 prior to admission to [facility] on same day. CT head neg. -CIWA protocol with Ativan, discontinued as pt non-scoring -Folic acid & thiamine PO daily -Seizure precautions -SW consulted for AUD. Assessment & Plan (04/23/2024 9:51 AM EST): Patient was brought from [facility] due to developing altered mental status (lethargy) after x1 valium for alcohol withdrawal. Immediately became hypoxic with aspiration episode and briefly needed supplemental oxygen, then was sent to [facility] for evaluation. Patient's mental status was back to baseline on 1/4 PM. Last drink was 04/16/24 prior to admission to [facility] on same day. CT head neg. -CIWA protocol with Ativan, discontinued as pt non-scoring -Folic acid & thiamine PO daily -Seizure precautions -SW consulted for AUD. Assessment & Plan (04/22/2024 9:22 AM EST): Patient was brought from [facility] due to developing altered mental status (lethargy) after x1 valium for alcohol withdrawal. Immediately became hypoxic with aspiration episode and briefly needed supplemental oxygen, then was sent to [facility] for evaluation. Patient's mental status was back to baseline on 1/4 PM. Last drink was 04/16/24 prior to admission to [facility] on same day. CT head neg. -CIWA protocol with Ativan, discontinued as pt non-scoring -Folic acid & thiamine PO daily -Seizure precautions -SW consulted for AUD. Assessment & Plan (04/21/2024 9:58 AM EST): Patient was brought from [facility] due to developing altered mental status (lethargy) after x1 valium for alcohol withdrawal. Immediately became hypoxic with aspiration episode and briefly needed supplemental oxygen, then was sent to [facility] for evaluation. Patient's mental status was back to baseline on 1/4 PM. Last drink was 04/16/24 prior to admission to [facility] on same day. CT head neg. -CIWA protocol with Ativan, discontinued as pt non-scoring -Folic acid & thiamine PO daily -Seizure precautions -SW consulted for AUD. Assessment & Plan (04/20/2024 11:03 AM EST): Patient was brought from [facility] due to developing altered mental status (lethargy) after x1 valium for alcohol withdrawal. Immediately became hypoxic with aspiration episode and briefly needed supplemental oxygen, then was sent to [facility] for evaluation. Patient's mental status was back to baseline on 1/4 PM. Last drink was 04/16/24 prior to admission to [facility] on same day. CT head neg. -CIWA protocol with Ativan -Folic acid & thiamine PO daily -Seizure precautions -SW consulted for AUD. Assessment & Plan (04/19/2024 12:45 PM EST): Patient was brought from [facility] due to developing altered mental status (lethargy) after x1 valium for alcohol withdrawal. Immediately became hypoxic with aspiration episode and briefly needed supplemental oxygen, then was sent to [facility] for evaluation. Patient's mental status was back to baseline on 04/18 PM. Last drink was 04/16/24 prior to admission to [facility] on same day. CT head neg. -[facility] protocol with Ativan -Folic acid & thiamine PO daily -Seizure precautions - consulted for alcoholism. Assessment & Plan (04/18/2024 9:52 PM EST): 58 years old male, chronic alcohol abuse and GERD, transferred from [facility]. Patient has been admitted for alcohol detoxification, patient received Valium and post therapy developed respiratory distress, developed hypoxia and transferred to [facility] via EMS Plan: 1-[facility] protocol 2- replacement of multivitamins Aspiration [...] Flagyl, Rocephin. Patient was recently admitted at [facility] for AHRF and Suicidal ideations. -04/20/24 CT [...] Flagyl, Rocephin. Patient was recently admitted at [facility] for AHRF and Suicidal ideations. -04/20/24 CT [...] Flagyl, Rocephin. Patient was recently admitted at [facility] for AHRF and Suicidal ideations. -04/20/24 CT [...] Flagyl, Rocephin. Patient was recently admitted at [facility] for AHRF and Suicidal ideations. -04/20/24 CT [...] Flagyl, Rocephin. Patient was recently admitted at [facility] for AHRF and Suicidal ideations. -MRSA PCR [...] Flagyl, Rocephin. Patient was recently admitted at [facility] for AHRF and Suicidal ideations. -MRSA PCR [...] drink = 0.6 oz pur e alcohol) [facility] Utilities Answer Date Recorded In the past 12 months has th e [employer], gas, oil, or water company threatened to [...] Completed 06/05/2024 Procedures * Due to [place] state law, [...] Health Maintenance Results * Due to [place] state law, this organization might not be sharing negative HIV tests. * (ABNORMAL) Basic metabolic panel (06/16/2024 8:26 AM EST) NA 138 135 - 145 mmol/L 06/16/2024 10:05 AM [facility] K 4.6 3.5 - 5.3 mmol/L 06/16/2024 10:05 AM [facility] Cl 98 98 - 107 mmol/L 06/16/2024 10:05 AM [facility] CO2 25 22 - 32 mmol/L 06/16/2024 10:05 AM [facility] BUN 20 7 - 23 mg/dL 06/16/2024 10:05 AM [facility] Creatinine 0.84 0.60 - 1.30 mg/dL 06/16/2024 10:05 AM [facility] Glucose 124(H) 65 - 99 mg/dL 06/16/2024 10:05 AM [facility] Calcium 9.1 8.6 - 10.5 mg/dL 06/16/2024 10:05 AM [facility] Anion Gap 15 5 - 15 06/16/2024 10:05 AM [facility] eGFR >90 >=60 mL/min/1. 73m2 06/16/2024 10:05 AM [facility] Comment:The estimated glomer ular filtration rate (eGFR) is calculated using a new formula developed by the [facility] task force to eliminate race-based correction factors. [...] ORDERABLES Fin al Result Performing Organization Address City/[facility]/ZIP Co de Phone Number [facility] [address] [place] [address], [place] * Hepatitis C Antibody w/Reflex to HCV RNA, Quantitative PCR (06/05/2024 4:23 PM EST) Hepatitis C Antibody NON-REACT BRISSA NON-REACT BRISSA 06/06/2024 9:01 AM EST [employer] [facility] Comment: HCV antibody was non-reactive. There is no laboratory evidence of HCV infection. In most cases, no further action is required. However, if recent HCV exposure is suspected, a test for HCV RNA (test code 77031) is suggested. For additional information please refer to http://education.ComCam/faq/TJI45u3 (This link is being provided for informational/ educational purposes only.) Blood Structure of peripheral vein / Unknown Venipuncture / Unknown 06/05/2024 4:23 PM EST 06/05/2024 4:44 PM EST Narrative [facility] - 06/06/2024 9:01 AM EST [facility] Received Date: John Mlelo MD LAB BLOOD ORDERABLES Final Re sult Performing Organization Address City/[facility]/ZIP Co de Phone Number [facility] [address], [place] [address], [place] [phone] [employer] [facility] [address], [place] [address], [place] [phone] * CT Abdomen Pelvis with Contrast (04/21/2024 [...] to obtain the completed interpretation. Workstation ID: [id number] Narrative 04/22/2024 9:27 AM EST EXAMINATION: CT [...] streak artifact from bilateral total hip arthroplasty. MAINTENANCE CONSTRUCTION HELPER TOPOGRAM: As below LUNG BASES: Motion degraded. [...] outside the cortical bone. Resulting Agency Comment [id number] Procedure Note AmeCarol Ann witt MD - [...] metallic streak artifact from bilateraltotal hip arthroplasty. MAINTENANCE CONSTRUCTION HELPER TOPOGRAM: As below LUNG BASES: Motion degraded. [...] possible to obtain thecompleted interpretation. Workstation ID: [id number] Nikolai Gonsalez MD IMChen CT PROCEDURES Final [...] to obtain the completed interpretation. Workstation ID: [id number] Narrative 04/21/2024 7:45 AM EST Indication: Lung [...] changes in the spine. Resulting Agency Comment [id number] Procedure Note Anastasiia Mcnamara MD - 04/21/2024 [...] possible to obtain thecompleted interpretation. Workstation ID: [id number] Nikolai Gonsalez MD IMG CT PROCEDURES Final Result from Last 3 Months or Most Recently Relevant to Health Maintenance Insurance [facility] Advance Directives Documents on File Type Date Recorded Patient Physical Therapy Aide Expl anation Health Care Proxy 04/20/2024 3:47 [...] Healthcare Agent Relationshi p Communication Ira Castro [facility] Care Agent [phone] (Mobile) Care Teams News Agent Relationship Specialty Start Date End Date Patient, Has No Pcp Or Ref DO NOT EDIT THIS RECORD VIA PROVIDER ON THE FLY PCP - General Finance Broker 04/17/24
== END 2024-12-10 10:09 | disposition home or self-care (01) ==
LOC: HO.US 10:08
PROVIDERS: PCP Physician Assistant; Visit Provider Surgery Vascular Surgery
DX: I83.11 Varicose veins of right lower extremity with inflammation (principal)
CPT/HCPCS: 93970

== ENCOUNTER → 2024-12-10 10:13 | Outpatient (BNV) | payer MEDICARE, MEDICAID, SELFPAY | PROVIDERS: PCP Physician Assistant; Visit Provider Radiology Diagnostic Radiology | DX: I83.91 Asymptomatic varicose veins of right lower extremity (principal) | CPT/HCPCS: 93970 ==

== ENCOUNTER 2024-12-29 09:22 | Outpatient (AMB) | payer MEDICARE, MEDICAID, SELFPAY ==
--- OUTSIDE RECORDS SUMMARY | 2024-09-24 06:00 | XMS_ITS ---
Author Organization [facility] Address [address] [place] [phone] Care Team Providers Care Car Lot Attendant Name Role Phone [facility] Primary Care Provider Josiane Mohr Unavailable Edda Granado Unavailable [phone] Encounters Encounter Location Date Provider Diagnosis [facility] [address] [place] [phone] 09/24/2024 Edda Granado Plan Of Treatment No Information Progress Notes * OLIVOChuy FernandezDOB:1965 (59 yo M)Acc No.[id number]:09/24/2024 Case Management Patient: Chuy VILLAREAL Provider: Ayaan Granado :1965 A ge:58 Y S ex:Male Date:09/24/2024 Address:[address] [place], [place] [phone] Pcp:[facility] Subjective: * Chief Complaints: * * Medical History: Objective: Assessment: Plan: * Treatment: * Images: Billing Information: * Visit Code: * Procedure Codes: Care Plan Details* * Electronic signature of Anthony Granado on 12/29/2024 at 11:52 AM EDT Sign off status: Pending * Provider: Ayaan Granado Date: 09/24/2024 Generated for Nuviai ng/Faxing/eTransmitting on: 0 12/29/2024 11:52 AM EDT
--- OUTSIDE RECORDS SUMMARY | 2024-10-29 06:20 | XMS_ITS ---
Author Organization [facility] Address [address] [place] [phone] Care Team Providers Care Supervisor Correspondence Section Name Role Phone [facility] Primary Care Provider Josiane Mohr Unavailable [phone] Edda Granado Unavailable [phone] Encounters Encounter Location Date Provider Diagnosis [facility] [address] [place] [phone] 10/29/2024 Edda Granado Plan Of Treatment No Information Progress Notes * OLIVOChuy FernandezDOB:1965 (59 yo M)Acc No.[id number]:10/29/2024 Case Management Patient: Cuhy VILLAREAL Provider: Ayaan Granado :1965 A ge:58 Y S ex:Male Date:10/29/2024 Address:[address] [place], [place] [phone] Pcp:[facility] Subjective: * Chief Complaints: * * Medical History: Objective: Assessment: Plan: * Treatment: * Images: Billing Information: * Visit Code: * Procedure Codes: Care Plan Details* * Electronic signature of Anthony Granado on 12/29/2024 at 11:52 AM EDT Sign off status: Pending * Provider: Ayaan Granado Date: 10/29/2024 Generated for Nuviai ng/Faxing/eTransmitting on: 0 12/29/2024 11:52 AM EDT
--- NOTE | 2024-12-29 09:26 | MHC.OFFVIS ---
Vital Signs 12/29/24 09:36 Height 5 ft 7 in Weight 368 lb BMI 57.6 BP 142/62 H Blood Pressure Location Rt brachial Position Sitting Pulse 84 Pulse Source Pulse Oximeter Pulse Oximetry (%) 94 Oxygen Delivery Method Nasal Cannula Oxygen Flow Rate 2 Intake Visit Reasons: Colonoscopy screening Intake Note: New pt for recall colo. Unspecified date but has documented hx of colostomy + sigmoidoscopy. Pt believes it was about 10 years ago. CC; C.O. intermittent constipation + GERD. Pt states that his GERD is typically well controlled throughout the day but often has trouble overnight. Housetrailer Servicer Required: No Accompanied by: Self / Same As Patient Allergies oxycodone Adverse Reaction (Unknown, Verified 12/08/24 15:05) GI upset HPI HPI Colonoscopy screening: Details: 59 year old? male with past medical history of COPD, obesity, lower extremity edema, tobacco dependence, hypoxia, MDD, ANA, GERD, Congestive heart failure, opiate dependence is here today for pre colonoscopy screening.? Patient was sent to us by his PCP.? Last colonoscopy over 10 years ago. Patient reports acid reflux and epigastric pain occasionally. Patient is short of breath even when sitting. He is wearing oxygen at 2 L. Patient reports occasional chest pain and shortness of breath. Reports edema to bilateral extremities. Patient was referred by PCP to cardiology several years ago, never made an appointment. Patient is homeless, however now he resides at the half-way. Patient reports that he will be there to be end of January. [facility] Medical History Substance abuse Varicose veins of right lower extremity with inflammation Morbid (severe) obesity due to excess calories COPD (chronic obstructive pulmonary disease) Cocaine use disorder MDD (major depressive disorder) Homeless ANA (obstructive sleep apnea) Varicose veins of right lower extremity Peripheral vascular disease GERD (gastroesophageal reflux disease) History of pernicious anemia Hx of acute respiratory failure Edema Back pain Arthritis History of DVT of lower extremity Depression ANA treated with BiPAP Right-sided heart failure Surgical History History of incisional hernia repair Hx of esophagogastroduodenoscopy Hx of colonoscopy History of total right knee replacement S/P right knee arthroscopy Hx of tracheostomy Hx of total hip arthroplasty History of colostomy reversal History of colon resection H/O gastric bypass Family History Father Displacement of central venous catheter (CVC) Mother Unknown family medical history Social History Household Members: Other Household Members Other:: detention house Housing: Other Housing Other:: detention house Do you presently have visiting nurse or other home services: No Alcohol intake: former Year quit: 2024 Patient Tobacco Use Status: Current everyday Tobacco user Tobacco use type: Cigarette Cigarettes Per Day: 5 Years Smoked: 40 e-Cigarette/Vaping Use: Currently Using Second Hand Smoke Exposure: Yes Substance Use Type: Crack/Cocaine service: No Sexual orientation: Straight/Heterosexual Cognitive needs: No Hearing needs: No Vision needs: Yes (Reading glasses) Review of Systems Const Denies weight gain and Denies weight loss ENT Reports no additional complaints, Denies dysphagia and Denies odynophagia Card Reports no additional complaints, Reports dyspnea and Reports dyspnea on exertion Resp Reports dyspnea and Reports dyspnea on exertion GI Denies abdominal pain, Denies belching, Denies melena, Reports bloating, Denies change in bowel habits, Denies dysphagia, Denies excessive flatus, Denies dyspepsia, Reports heartburn, Denies diarrhea, Denies loose stools, Denies nausea, Denies odynophagia and Denies vomiting Reports no additional complaints Musc Reports no additional complaints Neuro Reports no additional complaints Psych Reports no additional complaints Endo Reports no additional complaints Physical Exam Vital Signs: BMI result Body Mass Index 57.6 Const Other: Patient is wearing oxygen at 2 L via nasal cannula General: healthy appearing and no acute distress Nutritional Appearance: obese Orientation/consciousness: patient oriented x3 Resp Effort & Inspection: normal respiratory effort, able to speak in complete sentences, no tracheal deviation and symmetric chest movement Auscultation: clear to auscultation bilaterally Cardio Rate: regular rate GI Inspection: Yes normal to inspection, No distended and Yes obesity Palpation (GI): Soft to palpation, not firm, nontender and No hepatosplenomegaly present Auscultation: normal bowel sounds General: Yes no CVA tenderness Back/Spine/Pelvis Back: no CVA tenderness Skin General skin exam: elasticity normal, turgor normal and dry skin Neuro General: patient oriented x3 Psych Appearance: grossly normal Mental Status: mental status grossly normal Assessment & Plan Assessment & Plan (1) Colon cancer screening: Code(s): Z12.11 - Encounter for screening for malignant neoplasm of colon Category: Medical Plan Patient reports shortness of breath on exertion. Patient has wheezes throughout inspiratory and expiratory. Patient is wearing oxygen. Reports chest pain and shortness of breath with exertion that is ongoing. Patient will be sent to Cardiology. Referred by PCP few years ago never made an appointment. Will send him for Cologuard for now. If positive we will have to clear him and optimize him before sending him for colonoscopy.? Patient will return in 6 months for re-evaluation. He is agreeable to current plan of care and verbalizes understanding of instructions. He was given the opportunity to ask questions and all questions answered. Thank you for allowing me to participate in his care Orders: Referrals Cardiology Referral R06.02 - Shortness of breath, R07.9 - Chest pain, unspecified, Z01.810 - Encounter for preprocedural cardiovascular examination Coding Level of Care Code New Pt Level 3 (34464) Diagnoses Colon cancer screening Z12.11 Time Spent (min) 40 Comment 30 minutes spent with patient and additional 10 minutes spent reviewing his records
[2024-12-29 09:36] VITALS: BP 142/62; PULSE 84; O2SAT 94; BMI 57.6
--- OUTSIDE RECORDS SUMMARY | 2024-12-29 11:52 | XMS_ITS | Encounter Summary ---
Author Organization [facility] Address [address] [place] [address] [place] [address] Phone Care Team Providers Care Office Machines Wirer Name Role Phone Manuel Foy Primary Care Provider + Encounter Details Date Type Department Care Team (Late st Contact Info) Description 02/28/2024 Procedure Pass [facility] [address] [place] [address] Social History Tobacco Use Types Packs/Day Years [...] documented as of this encounter Care Teams Office Machines Wirer Relationship Specialty Start Date End Date Manuel Foy PA [address] [place] [id number] PCP - General Physician Bobtail Driver 02/23/24 documented as of this encounter Additional Source Comments The information contained in this document represents components of the legal health record. It is not the complete legal health record.[facility]
--- OUTSIDE RECORDS SUMMARY | 2024-12-29 11:52 | XMS_ITS | Encounter Summary ---
Author Organization [facility] Address [address] [address] Phone Care Team Providers Care Communications Maintainer Name Role Phone Pacheco Vargas DO Primary Care Provider [phone] Manuel Foy Primary Care Provider + Encounter Details Date Type Department Care Team (Late st Contact Info) Description 04/09/2018 Transcribe Orders [facility] Specimen Processing [address] [place] [address] Pacheco Vargas DO [address] [facility] [place] [address] [place] [address] [email or web address] Routine general medical examination at a health [...] EST) WBC 7.46 3.40 - 11.20 K/uL [facility] RBC 4.65 4.50 - 5.50 M/uL [facility] HGB 12.8(L) 13.0 - 17.0 g/dL [facility] HCT 39.9(L) 40.0 - 51.0 % [facility] PLT 256 130 - 400 K/uL [facility] MCV 85.8 79.0 - 98.0 fL [facility] MCH 27.5 27.0 - 34.8 pg [facility] MCHC 32.1 31.5 - 36.0 g/dL [facility] RDW 15.5(H) 10.8 - 14.6 % [facility] MPV 11.9 9.4 - 12.4 fl [facility] NRBC 0.00 0.00 /100 WBCs [facility] ABSOLUTE NRBC 0.00 0.00 K/uL [facility] Blood 04/09/2018 10:0 3 AM EST 04/09/2018 11:52 AM EST us Pacheco Vargas DO LAB BLOOD ORDERABLES Final Resul t Performing Organization Address City/State/[facility] Co de Phone Number [facility] [address] [place] [address] documented in this encounter Visit Diagnoses Diagnosis [...] documented as of this encounter Care Teams Communications Maintainer Relationship Specialty Start Date End Date Pacheco Vargas DO PCP - General Internal Medicine 04/09/18 02/22/24 Manuel Foy PA [address] [place] [address] PCP - General Physician Unload Associate 02/23/24 documented as of this encounter Additional Source Comments The information contained in this document represents components of the legal health record. It is not the complete legal health record.[facility]
--- OUTSIDE RECORDS SUMMARY | 2024-12-29 11:52 | XMS_ITS | Encounter Summary ---
Author Organization [facility] Address [address] [place] [address] [place] [address] Phone Care Team Providers Care Rivet Hole Puncher Name Role Phone Manuel Foy Primary Care Provider + Encounter Details Date Type Department Care Team (Late st Contact Info) Description 02/23/2024 Procedure Pass [facility] [address] [place] [address] Social History Tobacco Use Types Packs/Day Years [...] 1:31 PM Maria G Oconnell RN * [place] Suicide Severity Rating Scale (Screener/Recent Self-Report) Question [...] documented as of this encounter Care Teams Rivet Hole Puncher Relationship Specialty Start Date End Date Manuel Foy PA [facility] [place] [address] PCP - General Physician Leasing Agent 02/23/24 documented as of this encounter Additional Source Comments The information contained in this document represents components of the legal health record. It is not the complete legal health record.[facility]
--- OUTSIDE RECORDS SUMMARY | 2024-12-29 11:52 | XMS_ITS | Encounter Summary ---
Author Organization [facility] Address [address] [place] [address] Care Team Providers Care Job Setter Name Role Phone Paulo Schwarz Primary Care Provider [phone] Encounter Details Date Type Department Care Team ([facility] st Contact Info) Description 09/19/2012 Orders Only [facility] Orthopedic Surgery [address] [address] Suresh Velazquez MD [address] [place] [address] Social History Tobacco Use Types Packs/Day Years [...] thigh documented in this encounter Care Teams Job Setter Relationship Specialty Start Date End Date Paulo Schwarz [address] [place] [address] [place] [address] PCP - General 01/07/08 documented as of this encounter
--- OUTSIDE RECORDS SUMMARY | 2024-12-29 11:52 | XMS_ITS | Encounter Summary ---
Author Organization [facility] Address [address] [place] [address] Care Team Providers Care Superintendent Transportation Name Role Phone Paulo Schwarz Primary Care Provider [phone] Encounter Details Date Type Department Care Team (Late st Contact Info) Description 04/22/2017 Orders Only [facility] Pre-Admission Testing [address] [place] [address] Lexie Rust NP Social History Tobacco Use [...] this encounter Procedures * Due to [place] state [...] DIAGNOSTICS Comment: MRSA CULTURE SCREEN MICRO NUMBER: [id number] TEST STATUS: FINAL SPECIMEN SOURCE: NOT GIVEN SPECIMEN QUALITY: ADEQUATE RESULT: No methicillin resistant Staphylococcus aureus (MRSA) isolated. 04/22/2017 12:2 2 PM EST 04/22/2017 5:52 PM EST Narrative Resulting Agency Comment [id number] Lexie Rust FRENCH EDGE OPERATOR LABORATORY Final Result Performing Organization Address City/State/[facility] Co de Phone Number [facility] [address] [place] [address] * EKG-TO BE READ AND BILLED BY [...] Final Result Performing Organization Address [facility] Co de Phone Number [facility] * CULTURE, URINE, ROUTINE (04/22/2017 9:54 AM EST) Bacteria culture (Urine) SEE NOTE [facility] Comment: CULTURE, URINE, ROUTINE MICRO NUMBER: [id number] TEST STATUS: FINAL SPECIMEN SOURCE: NOT GIVEN SPECIMEN QUALITY: ADEQUATE RESULT: Single organism less than 10,000 CFU/mL isolated. These organisms, commonly found on external and internal genitalia, are considered colonizers. No further testing performed. 04/22/2017 9:54 AM EST 04/22/2017 2:49 PM EST Narrative Resulting Agency Comment [id number] us Lexie Rust NP LABORATORY Final Result Performing Organization Address [facility] de Phone Number [facility] [address] [place] [address] * PROTHROMBIN TIME (PT) (INR), BLOOD (04/22/2017 9:54 AM EST) INR 1.0 [facility] Comment: Reference Range 0.9-1.1 Moderate-intensity Warfarin Therapy 2.0-3.0 Higher-intensity Warfarin Therapy 3.0-4.0 PT 10.3 9.0 - 11.5 sec [facility] Comment: For more information on this test, go to: http://education.[employer]/faq/UNH345 04/22/2017 9:54 AM EST 04/22/2017 2:49 PM EST Narrative Resulting Agency Comment [id number] us Lexie Rust NP LAB SAME DAY RESULT Final Re sult Performing Organization Address [facility] Co de Phone Number [facility] [address] [place] [address] * (ABNORMAL) CBC INCLUDES DIFFERENTIAL AND PLATELET [...] 2:49 PM EST Narrative Resulting Agency Comment [id number] Lexie Rust FRENCH EDGE OPERATOR LAB SAME DAY RESULT Final Re sult Performing Organization Address City/State/[facility] Co de Phone Number [facility] [address] [place] [address] * (ABNORMAL) BASIC METABOLIC PANEL WITH (GFR) (04/22/2017 9:54 AM EST) Glucose 79 65 - 99 mg/dL [facility] Comment:Fasting reference in terval Urea Nitrogen Blood (BUN) 6(L) 7 - 25 mg/dL [facility] Creatinine 0.88 0.70 - 1.33 mg/dL [facility] Comment: For patients >49 years of age, the reference limit for Creatinine is approximately 13% higher for people identified as -Malagasy. GFR 100 > OR = 60 mL/min/1. [...] needs for GFR calculation. Resulting Agency Comment [id number] us Lexie Rust NP LABORATORY Final Result Performing Organization Address City/State/[facility] Co de Phone Number [facility] [address] [place] [address] documented in this encounter Visit Diagnoses Diagnosis Pre-operative examination Preoperative examination, unspecified Primary osteoarthritis of right knee Primary localized osteoarthrosis, lower leg Sleep apnea, unspecified type Increased frequency of urination Urinary frequency documented in this encounter Care Teams Superintendent Transportation Relationship Specialty Start Date End Date Paulo Schwarz [address] [place] [address] [place] [address] PCP - General 01/07/08 documented as of this encounter
--- OUTSIDE RECORDS SUMMARY | 2024-12-29 11:52 | XMS_ITS | Encounter Summary ---
Author Organization [facility] Address [address] [place] [address] [place] [address] Phone Care Team Providers Care Medical Office Receptionist Assistant Name Role Phone Manuel Foy Primary Care Provider + Encounter Details Date Type Department Care Team (Late st Contact Info) Description 02/23/2024 Procedure Pass [facility] [address] [place] [address] Social History Tobacco Use Types Packs/Day Years [...] 1:31 PM Maria G Oconnell RN * [place] Suicide Severity Rating Scale (Screener/Recent Self-Report) Question [...] documented as of this encounter Care Teams Medical Office Receptionist Assistant Relationship Specialty Start Date End Date Manuel Foy PA [facility] [place] [address] PCP - General Physician Unix System Administrator 02/23/24 documented as of this encounter Additional Source Comments The information contained in this document represents components of the legal health record. It is not the complete legal health record.[facility]
--- OUTSIDE RECORDS SUMMARY | 2024-12-29 11:52 | XMS_ITS | Clinical Summary ---
Author Organization [facility] Address [address] [place] [address] Care Team Providers Care Catering Barista Name Role Phone Unavailable Primary Care Provider [...] 2016 Zoster Vaccines (1 of 2) 2016 Depression Screening 04/15/2024 COVID-19 Vaccine (1 - 2023-2 5 season) 2024 Influenza Vaccine (#1) 2024 HIB Vaccines Aged [...]
--- OUTSIDE RECORDS SUMMARY | 2024-12-29 11:52 | XMS_ITS | Patient Health Record ---
Author Organization [facility] Address [address] [place] [address] Care Team Providers Care Media Consultant Name Role Phone Karishma(inactive) Paulo KITCHEN Primary [...] Problem Status W/U Status Risk Notes Problem [id number] Rectal bleeding (K62.5) Active confirmed Problem [id number] Jordan's esophagus without dysplasia (K22.70) Active confirmed Plan Of Treatment Future Test Test Name Order Date UPPER GI ENDOSCOPY 06/24/2015 COLONOSCOPY 06/24/2015 Insurance Providers Payer Name Payer Address Payer Phone Subscriber Number Group Number Insured Name Patient Relationship to Insured Coverage Start Date Coverage End Date MEDICARE OF [place] [address] [place] [id number] WES OLIVO Self - patient is the insured MEDICAID OF [facility] [address] [place] [phone] [id number] WES OLIVO Self - patient is the insured Medical (General) History Medical History History ICD Code Jordan's esophagus right knee arthritis Denies [place],DM,CVA,Lung disease,renal dise ase Surgical History Surgery Date(Month/Year) gastric bypass hernia repair left hip replacement right hip replacement trachiotomy colostomy
--- OUTSIDE RECORDS SUMMARY | 2024-12-29 11:52 | XMS_ITS | Encounter Summary ---
Author Organization [facility] Address [address] [place] [address] Care Team Providers Care Cafeteria Associate Name Role Phone Paulo Schwarz Primary Care Provider Encounter Details Date Type Department Care Team ([facility] st Contact Info) Description 09/29/2019 Orders Only [facility] Orthopedic Surgery [address] [facility] [address] [place] [address] Suresh Velazquez MD [address] [place] [address] Social History Tobacco Use Types Packs/Day Years [...] of this encounter Results * Due to [place] state law, this organization might not be [...] chronicity documented in this encounter Care Teams Cafeteria Associate Relationship Specialty Start Date End Date Paulo Schwarz [address] [place] [address] [place] [address] PCP - General 01/07/08 documented as of this encounter
--- OUTSIDE RECORDS SUMMARY | 2024-12-29 11:52 | XMS_ITS | Continuity of Care Document ---
Author Organization [facility] Address [address] [place] [address] Care Team Providers [employer] Name Role Phone Paulo Schwarz Primary Care Provider [phone] Encounters Date Type Department Care Team Description 11/13/2019 Travel 11/13/2019 1:15 PM EDT Radiology [facility] [address] [facility] [address] [place] [address] Right knee pain, unspecified chronicity 11/13/2019 1:30 PM EDT Consult (Initial) [facility] [address] [facility] [address] [place] [address] Suresh Velazquez MD Status post total right knee replacement (Primary Dx) 10/06/2019 Travel 10/01/2019 Travel 09/29/2019 Orders Only [facility] [address] [facility] [address] [place] [address] Suresh Velazquez MD 09/24/2019 Telephone [facility] [address] [facility] [address] [place] [address] Suresh Velazquez MD Error 09/23/2019 Orders Only [facility] [address] [facility] [address] [place] [address] Suresh Velazquez MD 09/23/2019 Travel 09/22/2019 Telephone [facility] [address] [facility] [address] [place] [address] Suresh Velazquez MD Imaging Request 05/20/2017 Telephone [facility] [address] [facility] [address] [place] [address] Suresh Velazquez MD Patient Questions 05/16/2017 Home Visit Suresh Villanueva MD, MD 05/16/2017 Refill [facility] [address] [facility] [address] [place] [address] Suresh Velazquez MD Refill Request 05/16/2017 Telephone [facility] [address] [facility] [address] [place] [address] Suresh Velazquez MD Refill Request 05/14/2017 Home Visit Suresh Villanueva MD, MD 05/14/2017 Telephone [facility]ics 123 [facility] [address] [place] [address] Suresh Velazquez MD VNA Communication 05/14/2017 Telephone [facility] [address] [address] Suresh Velazquez MD Patient Questions 05/06/2017 Minor Procedure/Test NON FC [facility] [address] [place] [address] Suresh Velazquez MD 05/06/2017 Hospital[facility] NON FC [facility] [address] [place] [address] Suresh Velazquez MD 05/02/2017 Orders Only NON FC [facility] [address] [place] [address] Suresh Velazquez MD 04/23/2017 Orders Only [facility] Cardiology [address] [place] [address] [address] [place] [address] Peggy Gomez Tech 04/22/2017 Orders Only [facility] Pre-Admission Testing [address] [place] [address] Lexie Rust NP 04/22/2017 9:30 AM EST Office Visit [facility] Testing [address] [place] [address] Lexie Rust NP Pre-operative examination (Primary Dx); Primary osteoarthritis of right knee; Sleep apnea, unspecified type; Increased frequency of urination; Gastroesophageal reflux disease; Deep vein thrombosis (DVT) of proximal lower extremity, unspecified chronicity, unspecified laterality; Obesity, unspecified classification, unspecified obesity type, unspecified whether serious comorbidity present; Iron deficiency anemia, unspecified iron deficiency anemia type; Vitamin B 12 deficiency 04/04/2017 Telephone [facility] [address] [address] Suresh Velazquez MD Patient Questions 03/21/2017 2:30 PM EST Office Visit [facility] [address] [address] Suresh Velazquez MD Primary osteoarthritis of right knee (Primary Dx) 11/15/2016 7:45 AM EDT Office Visit [facility] [address] [address] Ld Mensah PA Primary osteoarthritis of right knee (Primary Dx) 04/19/2016 9:30 AM EST Office Visit [facility] [address] [address] Suresh Velazquez MD Osteoarthrosis involving lower leg (Primary Dx) 09/02/2015 9:15 AM EDT Consult (Initial) [facility] [address] [address] Suresh Velazquez MD Osteoarthrosis involving lower leg (Primary Dx) 12/06/2014 Telephone [facility] [address] [place] [address] Stuart Herrera NP Refill Request 11/05/2014 10:45 AM EDT Radiology [facility] [address] [place] [address] Bilateral hip pain 11/05/2014 11:45 AM EDT Office Visit [facility] [address] [place] [phone] Stuart Herrera NP Muscle strain of gluteal region, unspecified laterality, initial encounter (Primary Dx) 11/04/2014 Orders Only [facility] [address] [place] [address] Stuart Herrera NP 07/29/2014 Orders Only NON FC [facility] [address] [place] [address] Sv, Unknown Provider 07/29/2014 2:00 PM EDT Consult (Initial) [facility] [address] [address] Stuart Herrera NP Muscle strain of left gluteal region, initial encounter (Primary Dx) 07/27/2014 Telephone [facility] Orth[facility] [address] [address] Suresh Velazquez MD Patient Questions 03/24/2014 10:30 AM EST Office Visit [facility] Suite [facility][note 3] [address] [address] Becca Du NP Sciatica (Primary Dx) 03/17/2014 Telephone [facility] Suite [facility][note 3] [address] [address] Suresh Velazquez MD Patient Questions 07/28/2013 Telephone [facility] Suite [facility][note 3] [address] [address] Suresh Velazquez MD Letter/form Request (dr velazquez) 07/01/2013 Consult (Initial) REHABILITATION UNSPEC Provider, Unknown 04/27/2013 3:00 PM EST Office Visit [facility] Suite [facility][note 3] [address] [address] Becca Du NP Iliotibial band syndrome (Primary Dx) 04/07/2013 Telephone [facility] [address] [address] Suresh Velazquez MD No Show 02/02/2013 Refill [facility] [address] [place] [address] Suresh Velazquez MD Refill Request 01/21/2013 Refill [facility] [address] [facility] [address] [place] [address] Suresh Velazquez MD Refill Request (marcus) 01/08/2013 Refill [facility] [address] [facility] [address] [place] [address] Suresh Velazquez MD Refill Request 01/07/2013 Letter/Form [facility] [address] [facility] [address] [place] [address] Suresh Velazquez MD 12/23/2012 Refill [facility] [address] [facility] [address] [place] [address] Suresh Velazquez MD Refill Request 12/18/2012 10:45 AM EDT Office Visit [facility] [address] [facility] [address] [place] [address] Suresh Velazquez MD Osteoarthritis of the pelvic region and thigh (Primary Dx) 12/12/2012 Telephone [facility] [address] [facility] [address] [place] [phone] Suresh Velazquez MD Other (dr velazquez) 12/10/2012 Telephone [facility] [address] [facility] [address] [place] [address] Suresh Velazquez MD Patient Questions (Dr. Velazquez) 12/09/2012 Refill [facility] [address] [facility] [address] [place] [address] Suresh Velazquez MD Refill Request 12/08/2012 Orders Only [facility] [address] [facility] [address] [place] [address] Suresh Velazquez MD 12/08/2012 Refill [facility] [address] [facility] [address] [place] [address] Suresh Velazquez MD Refill Request 12/03/2012 Refill [facility] [address] [facility] [address] [place] [address] Suresh Velazquez MD Refill Request ( ) 12/01/2012 Orders Only ORTHO SURG UNSPECIFIED Suresh Velazquez MD 11/27/2012 Telephone [facility] [address] [facility] [address] [place] [address] Suresh Velazquez MD Other (Becca Wagneruld ) 11/26/2012 Refill [facility] [address] [facility] [address] [place] [address] Suresh Velazquez MD Refill Request (Dr. Velazquez ) 11/24/2012 Orders Only ORTHO SURG UNSPECIFIED Suresh Velazquez MD 11/19/2012 [facility] NON FC [facility] [address] [place] [address] Suresh Velazquez MD 11/14/2012 Orders Only NON FC [facility] [address] [place] [address] Suresh Velazquez MD 10/27/2012 Orders Only [facility] Cardiology [address] [facility] [address] [place] [address] Lin John Tech 10/27/2012 11:15 AM EDT Office Visit [facility] Pre-Admission Testing [address] [place] [address] Khurram Sunshine MD Pre-operative examination (Primary Dx); Osteoarthritis of hip; Sleep apnea; Deep vein thrombosis; Gastroesophageal reflux disease; Seizures; Urinary frequency; Obesity 10/09/2012 Refill [facility] [address] [facility] [address] [place] [address] Suresh Velazquez MD Refill Request 09/19/2012 Orders Only [facility] [address] [facility] [address] [place] [address] Suresh Velazquez MD 09/05/2012 Refill [facility] [address] [facility] [address] [place] [address] Suresh Velazquez MD Refill Request 09/05/2012 11:00 AM EDT Consult (Initial) [facility] [address] [facility] [address] [place] [address] Suresh Velazquez MD Osteoarthritis of the pelvic region and thigh (Primary Dx) 07/04/2010 3:45 PM EDT Office Visit [facility] [address] [facility] [address] [place] [address] Surseh Velazquez MD DJD (degenerative joint disease) of hip (Primary Dx) 05/05/2010 Telephone [facility] [address] [facility] [address] [place] [address] Suresh Velazquez MD No Show (Balcom) 02/14/2010 Telephone [facility] [address] [facility] [address] [place] [address] Suresh Velazquez MD Cancellation (Balcom) 12/28/2009 Telephone [facility] [address] [facility] [address] [place] [address] Suresh Velazquez MD Patient Questions (BALCOM) 09/30/2009 Refill [facility] [address] [facility] [address] [place] [address] Suresh Velazquez MD Refill Request 09/14/2009 Refill [facility] [address] [facility] [address] [place] [address] Suresh Velazquez MD Refill Request 09/02/2009 Telephone [facility] [address] [facility] [address] [place] [address] Suresh Velazquez MD Patient Questions (balcom) 08/24/2009 Refill [facility] [address] [facility] [address] [place] [address] Suresh Velazquez MD Refill Request 08/04/2009 Refill [facility] [address] [address] Suresh Velazquez MD Refill Request 07/26/2009 9:15 AM EDT Office Visit [facility] [address] [address] Suresh Velazquez MD Osteoarth NOS-unspec (Primary Dx) 07/21/2009 Telephone [facility] [address] [address] Suresh Velazquez MD Patient Questions (BALCOM) 07/19/2009 Telephone [facility] [address] [address] Suresh Velazquez MD Patient Questions (balcom) 07/13/2009 Telephone [facility] [address] [address] Suresh Velazquez MD Patient Questions (balcom) 07/08/2009 Telephone [facility] [address] [address] Suresh Velazquez MD Patient Questions (Balcom ) 07/07/2009 Telephone [facility] [address] [address] Suresh Velazquez MD VNA Communication 07/07/2009 Telephone [facility] [address] [address] Suresh Velazquez MD VNA Communication (dr velazquez) 07/04/2009 Telephone [facility] [address] [address] Suresh Velazquez MD Patient Questions (Balcom ) 06/28/2009 Consult (Initial) NON FC [facility] [address] [place] [address] [facility], Unknown Provider 06/28/2009 Hospital[facility] NON FC [facility] [address] [place] [address] Suresh Velazquez MD 06/23/2009 Orders Only [facility] [address] [place] [address] Suresh Velazquez MD 06/09/2009 Orders Only [facility] Cardiology [address] [facility] [address] [place] [address] Lin John Tech 06/08/2009 Orders Only NON FC SA NON FC UNK Provider, Unknown 06/08/2009 8:00 AM EST Office Visit [facility] Pre-Admission Testing [address] [place] [address] [facility] [address] [place] [address] Lexie Rust NP Preop examination; Osteoarthritis of hip; Urinary frequency; Morbid obesity; DVT (deep venous thrombosis); GERD (gastroesophageal reflux disease); Sleep apnea 05/12/2009 Telephone [facility] [address] [place] [address] [place] [address] Suresh Velazquez MD Patient Questions (marcus) 05/06/2009 Orders Only [facility] [address] [place] [address] Suresh Velazquez MD 05/06/2009 1:15 PM EST Office Visit [facility] [address] [place] [address] [place] [phone] Suresh Velazquez MD Osteoarth NOS-unspec (Primary Dx) 01/26/2009 Telephone [facility] [address] [place] [address] [place] [phone] Paulo Schwarz Cancellation (Marcus ) 04/23/2008 Telephone [facility] [address] [place] [address] Suresh Velazquez MD 04/23/2008 Orders Only NON FC SA [facility] [address] [place] [address] Suresh Velazquez MD Allergies No known active [...] 04/23/2019 Social History Smoking Status as of 12/29/2024 Tobacco Use Types Packs/Day Years Used Date [...] Not on file Procedures * Due to [place] state [...] 11:55 AM EST Results * Due to [place] state [...] BLOOD COUNT 12.8(H) 3.9 - 11.0 x1000/uL [facility] RBC 4.38 4.30 - 5.80 mil/ul [facility] Hemoglobin 12.1(L) 12.5 - 17.0 g/dL [facility] HCT (HEMATOCRIT) 36.8 36.0 - 50.0 % [facility] MCV 84 80 - 100 fL [facility] MCH 28 27 - 33 pg [facility] MCHC 33 31 - 36 g/dL [facility] RDW 16.0(H) 11.4 - 14.4 % [facility] PLATELETS 201 150 - 450 x1000/uL [facility] 05/07/2017 6:05 AM EST 05/07/2017 6:05 AM EST us Suresh Velazquez MD LABORATORY Final Result Performing Organization Address City/[facility]/ZIP Co de Phone Number [facility] [address] [place] [address] * (ABNORMAL) BASIC METABOLIC PANEL (05/07/2017 6:05 AM EST) Only the most recent of7 resultswithin the time period is included. Glucose 94 65 - 99 mg/dL [facility] BUN 11 5 - 26 mg/dL [facility] CREATININE 0.76 0.5 - 1.5 mg/dL [facility] BUN/Creatinine Ratio 14 8 - 27 [facility] GLOM FILT RATE, EST 106.4 >59 mL/min [facility] IF -LAURA N 123.3 >59 mL/min [facility] SODIUM 143 134 - 144 mEq/L [facility] POTASSIUM 3.9 3.6 - 5.6 mEq/L [facility] CHLORIDE 107 96 - 109 mEq/L [facility] CARBON DIOXIDE 29 20 - 32 mEq/L [facility] ANION GAP 7.0(L) 8 - 15 [facility] CALCIUM 8.4 8.3 - 10.0 mg/dL [facility] 05/07/2017 6:05 AM EST 05/07/2017 6:05 AM EST us Suresh Velazquez MD LABORATORY Final Result Performing Organization Address City/[facility]/ZIP Co de Phone Number [facility] [address] [place] [address] * KNEE UNILATERAL 1 OR 2 VIEWS (05/06/2017 3:31 PM EST) RADIOLOGY REPORT [facility] Department of Radiology [address] [place] [address], [id number] Name: WES OLIVO : 67 Date of Service: 05/06/17 1052 Acct Number: [id number] Order Number: [id number] Location: [facility] Report Number: [id number] Service: REG CTC/ Requesting Physician: Suresh Velazquez [place] Category: RADIOLOGY [facility] Exam: KNEE 1 OR 2 [...] hardware failure. Date/Time of Dictation: 05/06/17 1634 Night Shift Manager (if applicable): Approved By Attending Radiologist: Deacon Hernandez 05/06/17 1634 [facility] Department of Radiology [address] [place] [address], [address] [facility] Anatomical Region Laterality Modality Other 05/06/2017 3:31 PM EST Narrative 05/06/2017 4:34 PM EST Reason for Study/History: Department of Radiology TEST(S) PROCESSED BY [facility] XRAY us Suresh Velazquez MD IMAGING-[facility] Final Result * UNSPECIFIED MAJOR PROCEDURE (05/06/2017) Narrative Procedure Note uSresh Velazquez MD - 05/06/2017 10:19 AM EST OPERATIVE REPORT DATE OF OPERATION: 05/06/2017 ATTENDING SURGEON: Dr. Suresh Velazquez. PREOPERATIVE DIAGNOSIS: Degenerative joint disease, right knee. POSTOPERATIVE DIAGNOSIS: Degenerative joint disease, right knee. PROCEDURE PERFORMED: Right total knee arthroplasty. TOURNIQUET TIME: 47 minutes. BAR USEFUL OR BUSSER: Cory Kaiser, advanced practitioner certified. IMPLANTS USED: [...] 10:04 A TT: 10:19 A Doc #: [id number] cc: Suresh Velazquez MD Suresh Velazquez MD PROCEDURES Final Result * BLOOD TYPE AND ANTIBODY SCREEN (05/02/2017 3:20 PM EST) Only the most recent of3 resultswithin the time period is included. BLOOD GROUP ABO O [facility] RH-(D) Positive [facility] ANTIBODY SCREEN Negative Negative [facility] 05/02/2017 3:20 PM EST 05/02/2017 3:20 PM EST Suresh Velazquez MD LABORATORY Final Result Performing Organization Address [facility] Co de Phone Number [facility] [address] [place] [address] * MRSA CULTURE SCREEN, NASAL ONLY (04/22/2017 12:22 PM EST) Only the most recent of2 resultswithin the time period is included. Methicillin Resistant Staphylococcus Aureus Screen SEE NOTE [facility] Comment: MRSA CULTURE SCREEN MICRO NUMBER: [id number] TEST STATUS: FINAL SPECIMEN SOURCE: NOT GIVEN SPECIMEN QUALITY: ADEQUATE RESULT: No methicillin resistant Staphylococcus aureus (MRSA) isolated. 04/22/2017 12:2 2 PM EST 04/22/2017 5:52 PM EST Narrative Resulting Agency Comment [id number] Lexie Rust NP LABORATORY Final Result [facility] [address] [place] [address] * EKG-TO BE READ AND BILLED BY [...] AM EST 04/22/2017 10:11 PM EST Result [facility] Lexie Rust NP CARDIOVASCULAR-WITH INBSKT R TG Final Result Performing Organization Address City/[facility]/ZIP Co de Phone Number [facility] * CULTURE, URINE, ROUTINE (04/22/2017 9:54 AM EST) Only the most recent of2 resultswithin the time period is included. Bacteria culture (Urine) SEE NOTE [facility] Comment: CULTURE, URINE, ROUTINE MICRO NUMBER: [id number] TEST STATUS: FINAL SPECIMEN SOURCE: NOT GIVEN SPECIMEN QUALITY: ADEQUATE RESULT: Single organism less than 10,000 CFU/mL isolated. These organisms, commonly found on external and internal genitalia, are considered colonizers. No further testing performed. 04/22/2017 9:54 AM EST 04/22/2017 2:49 PM EST Narrative Resulting Agency Comment [id number] Result [facility] Lexie Rust NP LABORATORY Final Result Performing Organization Address [facility] Co de Phone Number [facility] [address] [place] [address] * PROTHROMBIN TIME (PT) (INR), BLOOD (04/22/2017 9:54 AM EST) Pathologist [facility] INR 1.0 [facility] Comment: Reference Range 0.9-1.1 Moderate-intensity Warfarin Therapy 2.0-3.0 Higher-intensity Warfarin Therapy 3.0-4.0 PT 10.3 9.0 - 11.5 sec [facility] Comment: For more information on this test, go to: http://education.[facility]/faq/MOQ242 04/22/2017 9:5 4 AM EST 04/22/2017 2:49 PM EST Narrative Resulting Agency Comment [id number] Lexie Rust EMERGENCY RESPONSE COORDINATOR LAB SAME DAY RESULT Final Re sult [facility] [address] [place] [address] * (ABNORMAL) CBC INCLUDES DIFFERENTIAL AND PLATELET [...] 2:49 PM EST Narrative Resulting Agency Comment [id number] us Haylee Kaune EMERGENCY RESPONSE COORDINATOR LAB SAME DAY RESULT Final Re sult [facility] [address] [place] [address] * (ABNORMAL) BASIC METABOLIC PANEL WITH (GFR) (04/22/2017 9:54 AM EST) Only the most recent of2 resultswithin the time period is included. Pathologist [facility] Glucose 79 65 - 99 mg/dL [facility] Comment:Fasting reference in terval Urea Nitrogen Blood (BUN) 6(L) 7 - 25 mg/dL [facility] Creatinine 0.88 0.70 - 1.33 mg/dL [facility] Comment: For patients >49 years of age, the reference limit for Creatinine is approximately 13% higher for people identified as -English. GFR 100 > OR = 60 mL/min/1. [...] needs for GFR calculation. Resulting Agency Comment [id number] us Lexie Rust NP LABORATORY Final Result Performing Organization Address City/State/[facility] Co de Phone Number [facility] [address] [place] [address] * KNEE 3 VW MIN W/OBLIQUES (03/21/2017 5:24 PM EST) RADIOLOGY REPORT [facility] Department of Radiology [address] [place] [address], [address] Name: WES OLIVO : 67 Date of Service: 03/21/17 1445 Acct Number: [id number] Order Number: [id number] Location: [facility] Report Number: [id number] Service: REG REF/ Requesting Physician: Suresh Velazquez [place] Category: ORTHOPEDIC RADIOLOGY [facility] Exam: KNEE 3 VW MIN [...] to large effusion. Date/Time of Dictation: 03/21/171827 Night Shift Manager (if applicable): Approved By Attending Radiologist: Doni Pedro 03/21/171827 [facility] Department of Radiology [address] [place] [address], [address] [facility] Anatomical Region Laterality Modality Other 03/21/2017 5:24 PM EST Narrative 03/21/2017 6:28 PM EST Reason for Study/History: Department of Radiology TEST(S) PROCESSED BY [facility] XRAY Suresh Velazquez MD IMAGING-[facility] Final Result * XRAY KNEE AP LAT & OBLQ MIN 3 VW - RIGHT (09/02/2015 11:21 AM EDT) RADIOLOGY REPORT [facility] Department of Radiology [address] [place] [address], [id number] Name: WES OLVIO : 67 Date of Service: 09/02/15930 Acct Number: [id number] Order Number: [id number] Location: [facility] Report Number: [id number] Service: REG REF/ Requesting Physician: Suresh Velazquez [place] [place] Category: ORTHOPEDIC RADIOLOGY [facility] Exam: KNEE 3 VW MIN [...] compartment osteoarthritis. Date/Time of Dictation: 09/02/15 1125 Night Shift Manager (if applicable): Approved By Attending Radiologist: Tobi Gray 09/02/15 1125 [facility] Department of Radiology [address] [place] [address], [address] [facility] RAD Anatomical Region Laterality Modality Other 09/02/2015 11:2 1 AM EDT Narrative 09/02/2015 11:26 AM EDT Reason for Study/History: Department of Radiology TEST(S) PROCESSED BY [facility] XRAY Suresh Velazquez MD IMAGING-[facility] Final Result * XRAY HIPS [...] the time period is included. RADIOLOGY REPORT [facility] Department of Radiology [address] [place] [address], [id number] Name: WES OLIVO : 67 Date of Service: 07/29/14 1425 Acct Number: [id number] Order Number: [id number] Location: [facility] Report Number: [id number] Service: PRE REF/ Requesting Physician: Stuart Velez ([facility] [place] Category: ORTHOPEDIC RADIOLOGY [facility] Exam: HIP UNILAT 2 VIEWS [...] Approved Electronically By/Date: Alfonzo Peterson 07/29/14 1538 [facility] Department of Radiology [address] [place] [address], [id number] [facility] RAD Anatomical Region Laterality Modality Other 07/29/2014 3:34 PM EDT Narrative 07/29/2014 3:39 PM EDT Reason for Study/History: Department of Radiology TEST(S) PROCESSED BY [facility] XRAY us Unknown Provider [facility] IMAGING-[facility] Final Resul t * PELVIS 1 OR 2 VIEWS (07/29/2014 3:34 PM EDT) Only the most recent of8 resultswithin the time period is included. RADIOLOGY REPORT [facility] Department of Radiology [address] [place] [address], [id number] Name: WES OLIVO : 67 Date of Service: 07/29/14 1425 Acct Number: [id number] Order Number: [id number] Location: [facility] Report Number: [id number] Service: PRE REF/ Requesting Physician: Stuart Velez ([facility]) Category: ORTHOPEDIC RADIOLOGY [facility] Exam: PELVIS 1 OR 2 [...] Approved Electronically By/Date: Alfonzo Peterson 07/29/14 1538 [facility] Department of Radiology [address] [place] [address], [address] [facility] RAD Anatomical Region Laterality Modality Other 07/29/2014 3:34 PM EDT Narrative 07/29/2014 3:39 PM EDT Reason for Study/History: Department of Radiology TEST(S) PROCESSED BY [facility] XRAY us Unknown Provider [facility] IMAGING-[facility] Final Resul t * [facility]AL [facility] (03/24/2014 4:40 PM EST) Only the most recent of4 resultswithin the time period is included. RADIOLOGY REPORT [facility] Department of Radiology [address] [place] [address], [id number] Name: WES OLIVO : 67 Date of Service: 03/24/14 1003 Acct Number: [id number] Order Number: [id number] Location: [facility] Report Number: [id number] Service: REG REF/ Requesting Physician: Becca Du ([facility] [place] Category: ORTHOPEDIC RADIOLOGY [facility] Exam: HIP UNILAT 2 VIEWS [...] view. Interpreting Resident: Date/Time of Dictation: 03/24/14 [facility] Approved Electronically By/Date: Michael Anders 03/24/14 1640 [facility] Department of Radiology [address] [place] [address], [address] [facility] RAD Anatomical Region Laterality Modality Other 03/24/2014 4:40 PM EST Narrative 03/24/2014 4:40 PM EST Reason for Study/History: Department of Radiology TEST(S) PROCESSED BY [facility] XRAY Becca Du EMERGENCY RESPONSE COORDINATOR IMAGING[facility] Final Result * UNSPECIFIED DIAGNOSTIC PROCE (12/08/2012) Only the most recent of5 resultswithin the time period is included. Narrative Transcriptions Suresh Velazquez MD - 12/24/2012 12:00 AM EDT Suresh Velazquez MD LABORATORY Final Result * PELVIS 1 OR 2 VIEWS (11/19/2012 4:51 PM EDT) Only the most recent of2 resultswithin the time period is included. RADIOLOGY REPORT [facility] Department of Radiology [address] [place] [address], [id number] Name: WES OLIVO : 67 Date of Service: 11/19/12 1636 Acct Number: [id number] Order Number: [id number] Location: [facility] Report Number: [id number] Service: ADM IN/LEROY Requesting Physician: Suresh Velazquez [place] [place] Category: RADIOLOGY [facility] Exam: PELVIS 1 OR 2 [...] Approved Electronically By/Date: Tracey Lawson 11/19/12 1652 [facility] Department of Radiology [address] [place] [address], [id number] [facility] Anatomical Region Laterality Modality Other 11/19/2012 4:51 PM EDT Narrative 11/19/2012 4:52 PM EDT Reason for Study/History: Department of Radiology TEST(S) PROCESSED BY [facility] XRAY Suresh Velazquez MD IMAGING-[facility] Final Result * HIP UNILATERAL 2 VIEW - RIGHT (11/19/2012 4:50 PM EDT) RADIOLOGY REPORT [facility] Department of Radiology [address] [place] [address], [id number] Name: WES OLIVO : 67 Date of Service: 11/19/12 1637 Acct Number: [id number] Order Number: [id number] Location: [facility] Report Number: [id number] Service: ADM IN/LEROY Requesting Physician: Suresh Velazquez [place] [place] Category: RADIOLOGY [facility] Exam: HIP 2 VIEWS UNILATERAL [...] Approved Electronically By/Date: Tracey Lawson 11/19/12 165 [facility] Department of Radiology [address] [place] [address], [id number] [facility] RAD Anatomical Region Laterality Modality Other 11/19/2012 4:50 PM EDT Narrative 11/19/2012 4:51 PM EDT Reason for Study/History: Department of Radiology TEST(S) PROCESSED BY [facility] XRAY Suresh Velazquez MD IMAGING-[facility] Final Result * UNSPECIFIED MAJOR [...] extended neck offset. SURGEON: Suresh Velazquez MD BAR USEFUL OR BUSSER: Becca Du NP. INDICATIONS: The patient has [...] quadratus femoris and the inferior capsule. A alturas blade was then used to release the [...] 2:48 P TT: 2:59 P Doc #: [id number] cc: Suresh Velazquez MD Suresh Velazquez MD PROCEDURES Final Result * HIP UNILAT 2 VIEWS (09/05/2012 12:25 PM EDT) RADIOLOGY REPORT [facility] Department of Radiology [address] [place] [address], [address] Name: WES OLIVO : 67 Date of Service: 09/05/12 1056 Acct Number: [id number] Order Number: [id number] Location: [facility] Report Number: [id number] Service: REG REF/ Requesting Physician: Suresh Velazquez ([facility] [place] Category: ORTHOPEDIC RADIOLOGY [facility] Exam: HIP UNILAT 2 VIEWS [...] Approved Electronically By/Date: Vance Riggins 09/05/12 1226 [facility] Department of Radiology [address] [place] [address], [address] [facility] RAD Anatomical Region Laterality Modality Other 09/05/2012 12:2 5 PM EDT Narrative 09/05/2012 12:26 PM EDT Reason for Study/History: Department of Radiology TEST(S) PROCESSED BY [facility] XRAY us Suresh Velazquez MD IMAGING-[facility] Final Result * (ABNORMAL) PROTHROMBIN [...] EDT Reason for Study/History: TEST(S) PROCESSED BY [facility] XRAY Suresh Velazquez MD IMAGING-[facility] Final Result * UNSPECIFIED MAJOR [...] 44 +12 cobalt chrome head,a size 8 [place] cementless stem with lateral neck. SURGEON: Suresh Velazquez MD. BAR USEFUL OR BUSSER: GHAZALA Gates. INDICATIONS: The patient has not [...] quadratus femoris and the inferior capsule. A alturas bladewas then used to release the rotators [...] 5:42 P TT: 7:50 P Doc #: [id number] cc: Suresh Velazquez MD Suresh Velazquez MD [...] NP LABORATORY Final Result Performing Organization Address [facility] de Phone Number [facility] [address] [place] [address] * CULTURE, URINE (06/08/2009) URINE CULTURE CLEAN VOID SEE TEXT [facility] Comment: SOURCE: URINE NO GROWTH 06/08/2009 06/08/2009 5:3 4 PM EST Lexie Rust NP LABORATORY Final Result Performing Organization Address [facility] de Phone Number [facility] [address] [place] [address] * MRSA SCREEN, ANY SOURCE (06/08/2009) Result(s) SEE TEXT [facility] Comment: SOURCE: UNKNOWN NO METHICILLIN RESISTANT STAPHYLOCOCCUS AUREUS ISOLATED 06/08/2009 06/08/2009 5:3 4 PM EST Lexie Rust NP LABORATORY Final Result Performing Organization Address [facility] de Phone Number [facility] [address] [place] [address] * (ABNORMAL) CBC 5 PART DIFF (06/08/2009) [...] 5:3 4 PM EST us Lexie Rust EMERGENCY RESPONSE COORDINATOR LAB SAME DAY RESULT Final Re sult [facility] [address] [place] [address] * URINALYSIS, COMPLETE (DIP & MICRO) (06/08/2009) [...] 5:3 4 PM EST us Lexie Rust EMERGENCY RESPONSE COORDINATOR LAB SAME DAY RESULT Final Re sult [facility] [address] [place] [address] * XRAY HIPS BILATERAL MIN 2 VIEWS [...] (2 VWS) LT (04/23/2008 12:00 PM EST) [facility] RADIOLOGY REPORT Right knee, two views. Findings: [...] the right knee show TEST(S) PROCESSED BY [facility] XRAY Suresh Velazquez MD IMAGING-[facility] Final Result * KNEE (2 [...] of the left knee TEST(S) PROCESSED BY [facility] XRAY Suresh Velazquez MD IMAGING[facility] Final Result Visit Diagnoses Diagnosis [...] total right knee replacement 11/13/2019 Care Teams Drafter Civil Engineering Relationship Specialty Start Date End Date Paulo Schwarz [address] [place] [address] [address] [place], [place] [id number] PCP - General 01/07/08
--- OUTSIDE RECORDS SUMMARY | 2024-12-29 11:52 | XMS_ITS | Patient Health Record ---
Author Organization [facility] Address [address] [place] [address] Care Team Providers Care Chief Security And Safety Officer Name Role Phone [facility] Primary Care Provider Josiane Mohr Unavailable Edda Granado Unavailable Reason For Referral No Information Encounters Encounter Location Date Provider Diagnosis [facility] [address] [place] [address] [phone] 09/14/2024 Edda Granado [facility] [address] [place] [phone] 10/06/2024 Edda Granado [facility] [address] [place] [address] [phone] 10/15/2024 Edda Granado Plan Of Treatment No Information Insurance Providers Payer Name Payer Address Payer Phone Subscriber Number Group Number Insured Name Patient Relationship to Insured Coverage Start Date Coverage End Date [place] Standard [address] [place] [address] [phone] [id number] Chuy Castro Self - patient is the insured
--- OUTSIDE RECORDS SUMMARY | 2024-12-29 11:52 | XMS_ITS | Clinical Summary ---
Author Organization [facility] Address [address] [place] [phone] Phone Care Team Providers Care Adult Nurse Practitioner Name Role Phone Manuel Foy Primary Care [...] Active ferrous sulfate 324 mg (65 mg [place] iron) TbEC Take 324 mg by mouth [...] Date Last Indicated MDR-GN 03/01/2024 03/01/2024 Insurance [facility] [employer] PPO MEDICARE REPLACEMENT MEDICARE PART A & B [facility] [employer] PPO MEDICARE REPLACEMENT MEDICARE PART A & B [place] [facility] RE[facility] MEDICARE PART A & B [place] [employer] [place] MEDICARE REPLACEMENT MEDICARE PART A & B [facility] [employer] O MEDICARE REPLACEMENT MEDICARE PART A & B Member Subscriber Plan / Payer (Ef fective 2004-) Name:Chuy Castro Member ID:[id number] Relation to Subscriber:Self Name:Chuy Castro Subscriber ID:[id number] Payer ID:[id number] Group ID:Not on file Type:Medicare Address: [facility] [employer] [address] [place] [id number] [facility] MEDICARE REPLACEMENT MEDICARE PART A & B Member Subscriber Plan / Payer (Ef fective 2004-Present) Name:Castro, Chuy Rafael Member ID:[id number] Relation to Subscriber:Self Name:Chuy Castro Subscriber ID:[id number] Payer ID:[id number] Group ID:Not on file Type:Medicare Address: [employer] [address] [place] [id number] Advance Directives For more information, please contact: [phone] (9AM - 5PM Mar/[facility], Saturday-Saturday) * Full Code (Latest Code Status on File) Date Activated Date Inactivated Comments 02/28/2024 12:26 AM Question Answer Comments Code Status Confirmed With: Patient Care Teams Adult Nurse Practitioner Relationship Specialty Start Date End Date Manuel Foy PA [address] [place], [place] [id number] PCP - General Physician Compensation And Benefits Analyst 02/23/24 Additional Source Comments The information contained in this document represents components of the legal health record. It is not the complete legal health record.[facility]
--- OUTSIDE RECORDS SUMMARY | 2024-12-29 11:53 | XMS_ITS | Clinical Summary ---
Author Organization [facility] Address [address] [place] [address] Care Team Providers Care Electric Meter Inspector Name Role Phone Ref, Has No Pcp Or Primary Care Provider Unavail able Allergies No known active allergies Medications * [...] AM EST): Patient with COPD presenting from [facility] for hypoxia after he was found to [...] a PCP but does not have a microbial specialist, may benefit from outpatient referral to decrease incidence of hospitalization. On discharge: -prednisone 40mg daily through 05/26 -Ambulatory pulmonology referral placed Assessment & Plan (05/24/2024 10:55 AM EST): Patient with COPD presenting from [facility] for hypoxia after he was found to [...] a PCP but does not have a microbial specialist, may benefit from outpatient referral to decrease incidence of hospitalization. -prednisone 40mg daily x 5 days (D1: 27) -duonebs q4hr PRN -albuterol 2.5mg neb q4hr prn -maintain SpO2 88-92% -Ambulatory pulmonology referral on discharge Assessment & Plan (05/23/2024 3:55 PM EST): Patient with COPD presenting from [facility] for hypoxia after he was found to [...] a PCP but does not have a microbial specialist, may benefit from outpatient referral to decrease incidence of hospitalization. -prednisone 40mg daily x 5 days (D1: 05/22) -duonebs q4hr scheduled -albuterol 2.5mg neb q4hr prn -maintain SpO2 88-92% -may benefit from pulm outpatient Assessment & Plan (05/22/2024 1:21 PM EST): Patient with COPD presenting from [facility] for hypoxia after he was found to [...] a PCP but does not have a microbial specialist, may benefit from outpatient referral to decrease [...] several hospital admissions for withdrawal, presented from [facility] of acute hypoxic respiratory failure 2/2 COPDe. [...] several hospital admissions for withdrawal, presented from [facility] of acute hypoxic respiratory failure 2/2 COPDe. [...] several hospital admissions for withdrawal, presented from [facility] of acute hypoxic respiratory failure 2/2 COPDe. He has been on a 2 day detox from cocaine and alcohol. Reports last use was 05/20. Was given 10 mg of Valium by [facility] due to withdrawal symptoms and CIWA 10. -CIWA with rescue valium -continue home clonidine 0.1mg 3 times a day prn -thiamine, folic acid, Mag Assessment & Plan (05/22/2024 1:21 PM EST): History of cocaine and OUD with several hospital admissions for withdrawal, presented from [facility] of acute hypoxic respiratory failure 2/2 COPDe. He has been on a 2 day detox from cocaine and alcohol. Reports last use was 05/20. Was given 10 mg of Valium by [facility] due to withdrawal symptoms and CIWA 10. -CIWA with rescue valium -continue home clonidine 0.1mg 3 times a day prn -thiamine, folic acid, Mag Assessment & Plan (05/05/2024 11:43 AM EST): History of cocaine and OUD with several hospital admissions for withrawal, presented from [facility] (Section 21) in the setting of COVID. Was on a chlordiazepoxide at rehab, but last alcohol intake > 1 week [employer] to transfer here -continue home clonidine 0.1mg 3 times a day -continue home baclofen 10mg 3 times a day -nicotine patch as needed -thiamine and MV daily Assessment & Plan (05/04/2024 1:43 PM EST): History of cocaine and OUD with several hospital admissions for withrawal, presented from [facility] (Section 21) in the setting of COVID. Was on a chlordiazepoxide at rehab, but last alcohol intake > 1 week [employer]CH[employer] TIN CANS to transfer here -continue home clonidine 0.1mg 3 times a day -continue home baclofen 10mg 3 times a day -nicotine patch as needed -thiamine and MV daily Assessment & Plan (05/03/2024 12:11 PM EST): History of cocaine and OUD with several hospital admissions for withrawal, presented from [facility] (Section 21) in the setting of COVID. Was on a chlordiazepoxide at rehab, but last alcohol intake > 1 week [employer] T[employer] CANS to transfer here -continue home clonidine 0.1mg 3 times a day -continue home baclofen 10mg 3 times a day -CIWA without meds, add if needed -nicotine patch as needed -thiamine and MV daily Assessment & Plan (05/02/2024 10:18 AM EST): History of cocaine and OUD with several hospital admissions for withrawal, presented from [facility] (Section 21) in the setting of COVID. Was on a chlordiazepoxide at rehab, but last alcohol intake > 1 week [employer] T[employer] C[employer] to transfer here -continue home clonidine 0.1mg 3 times a day -continue home baclofen 10mg 3 times a day -CIWA without meds, add if needed -nicotine patch as needed -thiamine and MV daily Assessment & Plan (05/01/2024 1:12 PM EST): History of cocaine and OUD with several hospital admissions for lisa, presented from [facility] (Section 21) in the setting of COVID. Was on a chlordiazepoxide at rehab, but last alcohol intake > 1 week [employer] TIN CANS to transfer here -continue home clonidine 0.1mg [...] on several psychotropic medications. Transferred [facility] the [facility] from [facility] under Section 21. Was evaluated by [...] psychotropic medications. Transferred to the hospital from [facility] under Section 21. Was evaluated by [...] psychotropic medications. Transferred to the hospital from [facility] under Section 21. I am unclear [...] psychotropic medications. Transferred to the hospital from [facility] under Section 21. I am unclear [...] psychotropic medications. Transferred to the hospital from [facility] under Section 21. I am unclear at this time if he is also under Section 12 (hospitalized for 02/2024). Will need to clarify with psychiatry CL here - HOLD loxapine 100 mg [not noted in [facility] MAR] - [facility] 10 mg daily [facility] - Hydroxyzine 25 mg every 8 hours as needed - Pregabalin 75 mg three times a day - Formal psych evaluation requested to help clarify Section and medications Assessment & Plan (04/24/2024 11:29 AM EST): No home meds, although patient has Clonidine as prescribed in the past for anxiety PRN. Was hospitalized at [facility] with suicidal ideations & ACRHF in Feb 2024. -Clonidine 0.1 mg 3 times a day PRN Assessment & Plan (04/23/2024 9:51 AM EST): No home meds, although patient has Clonidine as prescribed in the past for anxiety PRN. Was hospitalized at [facility] with suicidal ideations & ACRHF in Feb 2024. -Clonidine 0.1 mg 3 times a day PRN Assessment & Plan (04/22/2024 9:22 AM EST): No home meds, although patient has Clonidine as prescribed in the past for anxiety PRN. Was hospitalized at [facility] with suicidal ideations & ACRHF in Feb 2024. -Clonidine 0.1 mg 3 times a day PRN Assessment & Plan (04/21/2024 9:58 AM EST): No home meds, although patient has Clonidine as prescribed in the past for anxiety PRN. Was hospitalized at [facility] with suicidal ideations & ACRHF in Feb 2024. -Clonidine 0.1 mg 3 times a day PRN Assessment & Plan (04/20/2024 11:03 AM EST): No home meds, although patient has Clonidine as prescribed in the past for anxiety PRN. Was hospitalized at [facility] with suicidal ideations & ACRHF in Feb 2024. -Clonidine 0.1 mg 3 times a day PRN Assessment & Plan (04/19/2024 12:45 PM EST): No home meds, although patient has Clonidine as prescribed in the past for anxiety PRN. Was hospitalized at [facility] with suicidal ideations & ACRHF in Feb [...] (05/22/2024 1:21 PM EST): Patient presenting from [facility] with acute hypoxia, placed on 4L. Initial [...] 11:29 AM EST): Patient was brought from [facility] due to developing altered mental status (lethargy) after x1 valium for alcohol withdrawal. Immediately became hypoxic with aspiration episode and briefly needed supplemental oxygen, then was sent to [facility] for evaluation. Patient's mental status was back to baseline on 1/4 PM. Last drink was 04/16/24 prior to admission to [facility] on same day. CT head neg. -CIWA protocol with Ativan, discontinued as pt non-scoring -Folic acid & thiamine PO daily -Seizure precautions -SW consulted for AUD. Assessment & Plan (04/23/2024 9:51 AM EST): Patient was brought from [facility] due to developing altered mental status (lethargy) after x1 valium for alcohol withdrawal. Immediately became hypoxic with aspiration episode and briefly needed supplemental oxygen, then was sent to [facility] for evaluation. Patient's mental status was back to baseline on 1/4 PM. Last drink was 04/16/24 prior to admission to [facility] on same day. CT head neg. -CIWA protocol with Ativan, discontinued as pt non-scoring -Folic acid & thiamine PO daily -Seizure precautions -SW consulted for AUD. Assessment & Plan (04/22/2024 9:22 AM EST): Patient was brought from [facility] due to developing altered mental status (lethargy) after x1 valium for alcohol withdrawal. Immediately became hypoxic with aspiration episode and briefly needed supplemental oxygen, then was sent to [facility] for evaluation. Patient's mental status was back to baseline on 1/4 PM. Last drink was 04/16/24 prior to admission to [facility] on same day. CT head neg. -CIWA protocol with Ativan, discontinued as pt non-scoring -Folic acid & thiamine PO daily -Seizure precautions -SW consulted for AUD. Assessment & Plan (04/21/2024 9:58 AM EST): Patient was brought from [facility] due to developing altered mental status (lethargy) after x1 valium for alcohol withdrawal. Immediately became hypoxic with aspiration episode and briefly needed supplemental oxygen, then was sent to [facility] for evaluation. Patient's mental status was back to baseline on 1/4 PM. Last drink was 04/16/24 prior to admission to [facility] on same day. CT head neg. -CIWA protocol with Ativan, discontinued as pt non-scoring -Folic acid & thiamine PO daily -Seizure precautions -SW consulted for AUD. Assessment & Plan (04/20/2024 11:03 AM EST): Patient was brought from [facility] due to developing altered mental status (lethargy) after x1 valium for alcohol withdrawal. Immediately became hypoxic with aspiration episode and briefly needed supplemental oxygen, then was sent to [facility] for evaluation. Patient's mental status was back to baseline on 1/4 PM. Last drink was 04/16/24 prior to admission to [facility] on same day. CT head neg. -CIWA protocol with Ativan -Folic acid & thiamine PO daily -Seizure precautions -SW consulted for AUD. Assessment & Plan (04/19/2024 12:45 PM EST): Patient was brought from [facility] due to developing altered mental status (lethargy) after x1 valium for alcohol withdrawal. Immediately became hypoxic with aspiration episode and briefly needed supplemental oxygen, then was sent to [facility] for evaluation. Patient's mental status was back to baseline on 04/18 PM. Last drink was 04/16/24 prior to admission to [facility] on same day. CT head neg. -[facility] protocol with Ativan -Folic acid & thiamine PO daily -Seizure precautions - consulted for alcoholism. Assessment & Plan (04/18/2024 9:52 PM EST): 58 years old male, chronic alcohol abuse and GERD, transferred from [facility]. Patient has been admitted for alcohol detoxification, patient received Valium and post therapy developed respiratory distress, developed hypoxia and transferred to [facility] via EMS Plan: 1-[facility] protocol 2- replacement of multivitamins Aspiration pneumonia [...] Flagyl, Rocephin. Patient was recently admitted at [facility] for AHRF and Suicidal ideations. -04/20/24 CT [...] Flagyl, Rocephin. Patient was recently admitted at [facility] for AHRF and Suicidal ideations. -04/20/24 CT [...] Flagyl, Rocephin. Patient was recently admitted at [facility] for AHRF and Suicidal ideations. -04/20/24 CT [...] Flagyl, Rocephin. Patient was recently admitted at [facility] for AHRF and Suicidal ideations. -04/20/24 CT [...] Flagyl, Rocephin. Patient was recently admitted at [facility] for AHRF and Suicidal ideations. -MRSA PCR [...] Flagyl, Rocephin. Patient was recently admitted at [facility] for AHRF and Suicidal ideations. -MRSA PCR [...] drink = 0.6 oz pur e alcohol) [facility] Utilities Answer Date Recorded In the past 12 months has th e [employer], gas, oil, or water company threatened to [...] (2 of 2 - PCV) 04/23/2020 04/23/2019 Alcohol/Substance Use Screening 04/15/2024 Depression Screening and Follow-Up 04/15/2024 COVID-19 Vaccine (2 - 2024-2 6 season) 2024 06/30/2022 Influenza Vaccine (#1) 2024 12/21/2023, 2019 CT [...] 135 - 145 mmol/L 06/16/2024 10:05 AM [facility] K 4.6 3.5 - 5.3 mmol/L 06/16/2024 10:05 AM [facility] Cl 98 98 - 107 mmol/L 06/16/2024 10:05 AM [facility] CO2 25 22 - 32 mmol/L 06/16/2024 10:05 AM [facility] BUN 20 7 - 23 mg/dL 06/16/2024 10:05 AM [facility] Creatinine 0.84 0.60 - 1.30 mg/dL 06/16/2024 10:05 AM [facility] Glucose 124(H) 65 - 99 mg/dL 06/16/2024 10:05 AM [facility] Calcium 9.1 8.6 - 10.5 mg/dL 06/16/2024 10:05 AM [facility] Anion Gap 15 5 - 15 06/16/2024 10:05 AM [facility] eGFR >90 >=60 mL/min/1. 73m2 06/16/2024 10:05 AM [facility] Comment:The estimated glomer ular filtration rate (eGFR) is calculated using a new formula developed by the [facility] task force to eliminate race-based correction [...] ORDERABLES Fin al Result Performing Organization Address City/[facility]/ZIP Co de Phone Number [facility] [address] [place] [address], [place] * Hepatitis C Antibody w/Reflex to HCV RNA, Quantitative PCR (06/05/2024 4:23 PM EST) Hepatitis C Antibody NON-REACT BRISSA NON-REACT BRISSA 06/06/2024 9:01 AM EST [employer] [facility] Comment: HCV antibody was non-reactive. There is no laboratory evidence of HCV infection. In most cases, no further action is required. However, if recent HCV exposure is suspected, a test for HCV RNA (test code 52454) is suggested. For additional information please refer to http://education.[employer]/faq/UCY71m3 (This link is being provided for informational/ educational purposes only.) Blood Structure of peripheral vein / Unknown Venipuncture / Unknown 06/05/2024 4:23 PM EST 06/05/2024 4:44 PM EST Narrative [facility] - 06/06/2024 9:01 AM EST [facility] Received Date: John Mello MD LAB BLOOD ORDERABLES Final Re sult Performing Organization Address City/[facility]/ZIP Co de Phone Number [facility] [address], [place] [address], [place] [phone] [employer] [facility] [address], [place] [address], [place] [phone] * CT Abdomen Pelvis with Contrast (04/21/2024 [...] to obtain the completed interpretation. Workstation ID: [id number] Narrative 04/22/2024 9:27 AM EST EXAMINATION: CT [...] streak artifact from bilateral total hip arthroplasty. [employer] TOPOGRAM: As below LUNG BASES: Motion degraded. [...] outside the cortical bone. Resulting Agency Comment [id number] Procedure Note AmeCarol Ann witt MD - [...] metallic streak artifact from bilateraltotal hip arthroplasty. [employer] TOPOGRAM: As below LUNG BASES: Motion degraded. [...] possible to obtain thecompleted interpretation. Workstation ID: [id number] Nikolai Gonsalez MD IMChen CT PROCEDURES Final [...] to obtain the completed interpretation. Workstation ID: [id number] Narrative 04/21/2024 7:45 AM EST Indication: Lung [...] changes in the spine. Resulting Agency Comment [id number] Procedure Note Anastasiia Mcnamara MD - 04/21/2024 [...] possible to obtain thecompleted interpretation. Workstation ID: [id number] Nikolai Gonsalez MD IMG CT PROCEDURES Final Result from Last 3 Months or Most Recently Relevant to Health Maintenance Insurance [facility] Advance Directives Documents on File Type Date Recorded Patient Fence Post Cutter Expl anation Health Care Proxy 04/20/2024 3:47 [...] Agents on File Name Relationship Healthcare Agent Relationsnh p Communication Ira Castro [facility] Health Care Agent [id number] (Mobile) Care Teams Electric Meter Inspector Relationship Specialty Start Date End Date Ref, Has No Pcp Or DO NOT EDIT THIS RECORD VIA PROVIDER ON THE FLY PCP - General Senior Security Engineer 04/17/24
--- OUTSIDE RECORDS SUMMARY | 2024-12-29 11:53 | XMS_ITS | Encounter Summary ---
Author Organization [facility] Address [address] [place] [address] Care Team Providers Care Collator Name Role Phone Paulo Schwarz Primary Care Provider [phone] Encounter Details Date Type Department Care Team ([facility] st Contact Info) Description 11/04/2014 Orders Only [facility] [address] [place] [id number] Stuart Herrera NP Social History Tobacco Use [...] changes. Bilateral hip prostheses. us Stuart Herrera PROFESSOR OF LITERACY IMG XRAY NO CONTRAST ORDERAB LES Final Result documented in this encounter Visit Diagnoses Diagnosis Bilateral hip pain- Primary Pain in joint, pelvic region and thigh Bilateral hip pain Pain in joint, pelvic region and thigh documented in this encounter Care Teams Collator Relationship Specialty Start Date End Date Paulo Schwarz [address] [place] [address] [place] [address] PCP - General 01/07/08 documented as of this encounter
== END 2024-12-29 10:29 | disposition home or self-care (01) ==
LOC: HO.HGI 09:23
PROVIDERS: PCP Physician Assistant; Visit Provider Nurse Practitioner Family
DX: K21.9 Gastro-esophageal reflux disease without esophagitis (principal); R10.13 Epigastric pain
CPT/HCPCS: 99203

== ENCOUNTER → 2024-12-29 09:22 | Outpatient (BNVA) | payer MEDICARE, MEDICAID, SELFPAY | PROVIDERS: PCP Physician Assistant; Visit Provider Nurse Practitioner Family | DX: Z01.818 Encounter for other preprocedural examination (principal) | CPT/HCPCS: 99202 ==

== ENCOUNTER 2025-01-10 14:12 | Emergency (ER) | payer MEDICARE, MEDICAID, SELFPAY ==
--- OUTSIDE RECORDS SUMMARY | 2024-09-24 06:00 | XMS_ITS ---
Author Organization [facility] Address [address] [place] [phone] Care Team Providers Care Perinatal Technician Name Role Phone [facility] Primary Care Provider Josiane Mohr Unavailable Edda Granado Unavailable Encounters Encounter Location Date Provider Diagnosis [facility] [address] [place] [phone] 09/24/2024 Edda Granado Plan Of Treatment No Information Progress Notes * OLIVOChuy FernandezDOB:1965 (59 yo M)Acc No.[id number]:09/24/2024 Case Management Patient: Chuy VILLAREAL Provider: Ayaan Granado :1965 A ge:58 Y S ex:Male Date:09/24/2024 Address:[address] [place], [place] [phone] Pcp:[facility] Subjective: * Chief Complaints: * * Medical History: Objective: Assessment: Plan: * Treatment: * Images: Billing Information: * Visit Code: * Procedure Codes: Care Plan Details* * Electronic signature of Anthony Granado on 01/10/2025 at 03:17 PM EDT Sign off status: Pending * Provider: Ayaan Granado Date: 09/24/2024 Generated for Nuviai ng/Faxing/eTransmitting on: 0 01/10/2025 03:17 PM EDT
--- OUTSIDE RECORDS SUMMARY | 2024-10-29 06:20 | XMS_ITS ---
Author Organization [facility] Address [address] [place] [phone] Care Team Providers Care Machine Brusher Name Role Phone [facility] Primary Care Provider [phone] Josiane Mohr Unavailable [phone] Edda Granado Unavailable [phone] Encounters Encounter Location Date Provider Diagnosis [facility] [address] [place] [phone] 10/29/2024 Edda Granado Plan Of Treatment No Information Progress Notes * OLIVOChuy FernandezDOB:1965 (59 yo M)Acc No.[id number]:10/29/2024 Case Management Patient: Chuy VILLAREAL Provider: Ayaan Granado :1965 A ge:58 Y S ex:Male Date:10/29/2024 Address:[address] [place], [place] [phone] Pcp:[facility] Subjective: * Chief Complaints: * * Medical History: Objective: Assessment: Plan: * Treatment: * Images: Billing Information: * Visit Code: * Procedure Codes: Care Plan Details* * Electronic signature of Anthony Granado on 01/10/2025 at 03:18 PM EDT Sign off status: Pending * Provider: Ayaan Granado Date: 10/29/2024 Generated for Nuviai ng/Faxing/eTransmitting on: 0 01/10/2025 03:18 PM EDT
--- NOTE | ~2025-01-10 | US_ITS ---
CLINICAL HISTORY: Sent from SNF for increased redness and increased --- Additional Notes or Special Instructions: Swelling right lower extremity rule out DVT. Negative study Venous duplex ultrasound right lower extremity Comparison: US/SR - US VENOUS INSUFFICIENCY BILATERAL - 12/10/24 10:27 EDT US - US VENOUS DUPLEX LE BI - 10/25/24 07:51 EDT Findings: The visualized deep veins are fully compressible with normal Doppler color flow and spectral tracings. No popliteal cyst. IMPRESSION: 1. Negative for right lower extremity deep vein thrombosis. This document has been electronically signed by: Alejandro Rivas MD on 01/10/2025 19:16:38
[2025-01-10 14:19] VITALS: BP 127/73; PULSE 83; RESP 19; TEMP 37.1; O2SAT 90; BMI 54.1
--- NOTE | 2025-01-10 14:23 | ECG_ITS ---
Test Reason : WEAKNESS Blood Pressure : */* mmHG Vent. Rate : 75 BPM Atrial Rate : 75 BPM P-R Int : 164 ms QRS Dur : 86 ms QT Int : 372 ms P-R-T Axes : 12 26 20 degrees QTcB Int : 415 ms Sinus rhythm with Premature atrial complexes Otherwise normal ECG When compared with ECG of 24-Oct-2024 16:27, Premature atrial complexes are now Present Nonspecific T wave abnormality now evident in Anterior leads Referred By: Generic ED Physician Electronically Signed By: Presley Badillo
[2025-01-10 15:08] LABS: MANUAL DIFF FLAG NO
[2025-01-10 15:10] LABS: Hematocrit 37.0 % (42.0-52.0); Hemoglobin 10.3 g/dl (14.0-18.0); Imm Gran Abs Auto 0.03 X10*3/uL (0.00-0.03); Imm Gran Pct Auto 0.5 % (0.0-0.4); Lymphocytes Absolute Auto 1.2 X10*3/uL (1.2-4.9); Mean Corpuscular HGB Conc 27.8 g/dl (31.0-36.0); Mean Corpuscular Hemoglobin 21.6 pg (27.0-33.0); Mean Corpuscular Volume 77.6 fL (80.0-98.0); NRBC Abs Auto 0.000 X10*3/uL (0.0-0.012); NRBC Pct Auto 0.0 /100WBC (0.0-0.2); Platelet Count 250 X10*3/uL (160-400); Red Blood Count 4.77 X10*6/uL (4.60-5.80); White Blood Count 6.3 X10*3/uL (4.8-10.8)
[2025-01-10 15:13] LABS: VBG HCO3 38 mmol/L (22-26); VBG O2 % Saturation 66.0 %
[2025-01-10 15:14] LABS: Venous Blood Gas Refer to POC result
[2025-01-10 15:16] LABS: INTERNATIONAL NORM RATIO 1.0 (0.9-1.1); Prothrombin Time 11.4 SEC (10.9-12.4)
--- OUTSIDE RECORDS SUMMARY | 2025-01-10 15:16 | XMS_ITS | Encounter Summary ---
Author Organization [facility] Address [address] [place] [address] Care Team Providers Care Kai Whakaruruhau Name Role Phone Paulo Schwarz Primary Care Provider [phone] Encounter Details Date Type Department Care Team (Late st Contact Info) Description 04/22/2017 Orders Only [facility] Pre-Admission Testing [address] [place] [address] Lexie Rust NP Social History Tobacco Use [...] of this encounter Procedures * Due to [place] state law, [...] in this encounter Results * Due to [place] state law, this organization might not be sharing negative HIV tests. * MRSA CULTURE SCREEN, NASAL ONLY (04/22/2017 12:22 PM EST) Methicillin Resistant Staphylococcus Aureus Screen SEE NOTE [facility] Comment: MRSA CULTURE SCREEN MICRO NUMBER: [id number] TEST STATUS: FINAL SPECIMEN SOURCE: NOT GIVEN SPECIMEN QUALITY: ADEQUATE RESULT: No methicillin resistant Staphylococcus aureus (MRSA) isolated. 04/22/2017 12:2 2 PM EST 04/22/2017 5:52 PM EST Narrative Resulting Agency Comment [id number] Lexie Rust FREELANCE WRITER LABORATORY Final Result Performing Organization Address City/State/[facility] Co de Phone Number [facility] [address] [place] [address] * EKG-TO BE READ AND BILLED BY [...] Address [facility] Co de Phone Number [facility] * CULTURE, URINE, ROUTINE (04/22/2017 9:54 AM EST) Bacteria culture (Urine) SEE NOTE [facility] Comment: CULTURE, URINE, ROUTINE MICRO NUMBER: [id number] TEST STATUS: FINAL SPECIMEN SOURCE: NOT GIVEN SPECIMEN QUALITY: ADEQUATE RESULT: Single organism less than 10,000 CFU/mL isolated. These organisms, commonly found on external and internal genitalia, are considered colonizers. No further testing performed. 04/22/2017 9:54 AM EST 04/22/2017 2:49 PM EST Narrative Resulting Agency Comment [id number] us Lexie Rust NP LABORATORY Final Result Performing Organization Address [facility] de Phone Number [facility] [address] [place] [address] * PROTHROMBIN TIME (PT) (INR), BLOOD (04/22/2017 9:54 AM EST) INR 1.0 [facility] Comment: Reference Range 0.9-1.1 Moderate-intensity Warfarin Therapy 2.0-3.0 Higher-intensity Warfarin Therapy 3.0-4.0 PT 10.3 9.0 - 11.5 sec [facility] Comment: For more information on this test, go to: http://education.[employer]/faq/WTL149 04/22/2017 9:54 AM EST 04/22/2017 2:49 PM EST Narrative Resulting Agency Comment [id number] us Lexie Rust NP LAB SAME DAY RESULT Final Re sult Performing Organization Address [facility] Co de Phone Number [facility] [address] [place] [address] * (ABNORMAL) CBC INCLUDES DIFFERENTIAL AND PLATELET [...] 2:49 PM EST Narrative Resulting Agency Comment [id number] Lexie Rust FREELANCE WRITER LAB SAME DAY RESULT Final Re sult Performing Organization Address City/State/[facility] Co de Phone Number [facility] [address] [place] [address] * (ABNORMAL) BASIC METABOLIC PANEL WITH (GFR) (04/22/2017 9:54 AM EST) Glucose 79 65 - 99 mg/dL [facility] Comment:Fasting reference in terval Urea Nitrogen Blood (BUN) 6(L) 7 - 25 mg/dL [facility] Creatinine 0.88 0.70 - 1.33 mg/dL [facility] Comment: For patients >49 years of age, the reference limit for Creatinine is approximately 13% higher for people identified as -Libyan. GFR 100 > OR = 60 mL/min/1. [...] needs for GFR calculation. Resulting Agency Comment [id number] us Lexie Rust NP LABORATORY Final Result Performing Organization Address City/State/[facility] Co de Phone Number [facility] [address] [place] [address] documented in this encounter Visit Diagnoses Diagnosis Pre-operative examination Preoperative examination, unspecified Primary osteoarthritis of right knee Primary localized osteoarthrosis, lower leg Sleep apnea, unspecified type Increased frequency of urination Urinary frequency documented in this encounter Care Teams Kai Whakaruruhau Relationship Specialty Start Date End Date Paulo Schwarz [address] [place] [address] [place] [address] PCP - General 01/07/08 documented as of this encounter
--- OUTSIDE RECORDS SUMMARY | 2025-01-10 15:16 | XMS_ITS | Encounter Summary ---
Author Organization [facility] Address [address] [place] [address] [place] [phone] Phone Care Team Providers Care Helicopter Engineer Name Role Phone Manuel Foy Primary Care Provider + Encounter Details Date Type Department Care Team (Late st Contact Info) Description 02/23/2024 Procedure Pass [facility] [address] [place] [address] Social History Tobacco Use Types Packs/Day Years [...] 1:31 PM Maria G Oconnell RN * [place] Suicide Severity Rating Scale (Screener/Recent Self-Report) Question [...] documented as of this encounter Care Teams Helicopter Engineer Relationship Specialty Start Date End Date Manuel Foy PA [facility] [place] [address] PCP - General Physician Attorney At Law 02/23/24 documented as of this encounter Additional Source Comments The information contained in this document represents components of the legal health record. It is not the complete legal health record.[facility]
--- OUTSIDE RECORDS SUMMARY | 2025-01-10 15:16 | XMS_ITS | Encounter Summary ---
Author Organization [facility] Address [address] [place] [address] [place] [phone] Phone Care Team Providers Care Retail Assistant Name Role Phone Manuel Foy Primary Care Provider + Encounter Details Date Type Department Care Team (Late st Contact Info) Description 02/28/2024 Procedure Pass [facility] [address] [place] [address] Social History Tobacco Use Types Packs/Day Years [...] documented as of this encounter Care Teams Retail Assistant Relationship Specialty Start Date End Date Manuel Foy PA [address] [place] [address] PCP - General Physician Sketch Artist 02/23/24 documented as of this encounter Additional Source Comments The information contained in this document represents components of the legal health record. It is not the complete legal health record.[facility]
--- OUTSIDE RECORDS SUMMARY | 2025-01-10 15:16 | XMS_ITS | Patient Health Record ---
Author Organization [facility] Address [address] [place] [address] Care Team Providers Care Senior Linux Engineer Name Role Phone Karishma(inactive) Paulo KITCHEN Primary [...] Problem Status W/U Status Risk Notes Problem [id number] Rectal bleeding (K62.5) Active confirmed Problem [id number] Jordan's esophagus without dysplasia (K22.70) Active confirmed Plan Of Treatment Future Test Test Name Order Date UPPER GI ENDOSCOPY 06/24/2015 COLONOSCOPY 06/24/2015 Insurance Providers Payer Name Payer Address Payer Phone Subscriber Number Group Number Insured Name Patient Relationship to Insured Coverage Start Date Coverage End Date MEDICARE OF [place] [address] [place] [phone] [id number] WES OLIVO Self - patient is the insured MEDICAID OF [facility] [address] [place] [phone] [id number] WES OLIOV Self - patient is the insured Medical (General) History Medical History History ICD Code Jordan's esophagus right knee arthritis Denies [place],DM,CVA,Lung disease,renal dise ase Surgical History Surgery Date(Month/Year) gastric bypass hernia repair left hip replacement right hip replacement trachiotomy colostomy
--- OUTSIDE RECORDS SUMMARY | 2025-01-10 15:16 | XMS_ITS | Encounter Summary ---
Author Organization [facility] Address [address] [place] [address] Care Team Providers Care Mother Repairer Name Role Phone Paulo Schwarz Primary Care Provider [phone] Encounter Details Date Type Department Care Team ([facility] st Contact Info) Description 09/29/[address] [facility] [address] [facility] [address] [place] [phone] Suresh Velazquez MD [address] [place] [address] Social History Tobacco Use Types Packs/Day Years [...] of this encounter Results * Due to [place] state law, this organization might not be [...] chronicity documented in this encounter Care Teams Mother Repairer Relationship Specialty Start Date End Date Paulo Schwarz [address] [place] [address] [place] [address] PCP - General 01/07/08 documented as of this encounter
--- OUTSIDE RECORDS SUMMARY | 2025-01-10 15:16 | XMS_ITS | Data Portability ---
Author Organization [facility], Main Office Address [address], [address] [place] [address] Care Team Providers Care Light Rail Vehicle Operator Name Role Phone JACOBY ALARCON - 2ND FLOOR OTHER BERTHA ALEMAN Primary Care Provider [phone] Assessment No assessment recorded. Plan of Treatment Reminders Order Date Submit Date Provider Last Modified By Organization Details Last Modified Time Details Appointments None record ed. Lab None record ed. Referral None record ed. Procedures None record ed. Surgeries None record ed. Imaging None record ed. Medication Orders None record ed. Patient TargetsNo targets recorded. Patient Instructions Encounter Date Encounter Id Patient Instructions Last Modified By Organization Details Last Modified Time 10/29/2024 [id number] Quitting Tobacco : Care Instructions [email or web address] Not available 10/29/2024 13:27:01 11/03/2024 [id number] Quitting Tobacco : Care Instructions [email or web address] Not available 11/03/2024 15:37:02 Reason for Referral None Reported. Problems Name Problem SNOMED Code Status Onset Date Resolution Date Notes Provider Name and Address Organization Details Recorded Time Pneumonia 679385267 Active 2024 LUIS MANUEL MEHTA NP [address] [facility], [address], [place], [address], [facility] 5 14:25:05 Acute exacerbation of chronic obstructive pulmonary disease 699430726 Active 2024 LUI SMANUEL MEHTA NP [address] [facility], [address], [place], [address], [facility] 5 14:25:10 Cellulitis of lower leg 013312085 Active 2024 LUIS MANUEL MEHTA NP [address] [facility], [address], [place], [address], [facility] 5 14:25:12 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 179383567 Active 2024 LUIS MANUEL MEHTA NP [address], [address], [place], [address], [facility] 5 14:25:13 Obstructive sleep apnea syndrome 22531969 Active 2024 LUIS MANUEL MEHTA NP [address], [address], [place], [address], [facility] 5 14:25:15 Asthenia 39079420 Active 2024 LUIS MANUEL MEHTA NP [address], [address], [place], [address], [facility] 5 14:25:17 Peripheral vascular disease 151389058 Active 2024 LUIS MANUEL MEHTA NP [address], [address], [place], [address], [facility] 5 14:25:21 Morbid obesity 819976154 Active 2024 LUIS MANUEL MEHTA NP [address], [address], [place], [address], [facility] 5 14:25:23 Cocaine use disorder Active 2024 LUIS MANUEL MEHTA NP [address], [address], [place], [address], [facility] 5 14:25:26 Major depressive disorder 795341394 Active 2024 LUIS MANUEL MEHTA NP [address], [place], [address], [facility] 5 14:25:27 Chronic back pain 715638234 Active 2024 LUIS MANUEL MEHTA NP [address], [place], [address], [facility] 5 14:25:31 Sheltered homelessness Active 2024 LUIS MANUEL MEHTA NP [address], [place], [address], [facility] 5 14:25:35 Tobacco user 258145110 Active 2024 LUIS MANUEL MEHTA NP [address], [address], [place], [address], [facility] 5 14:25:37 Gastroesophage al reflux disease without esophagitis 815451892 Active 2024 LUIS MANUEL MEHTA NP [address], [address], [place], [address], [facility] 5 14:25:40 Edema of lower extremity 604349968 Active 2024 LUIS MANUEL MEHTA NP [address], [address], [place], [address], [facility] 5 14:25:42 Generalized arthritis 191877222 Active 2024 LUIS MANUEL MEHTA NP [address], [address], [place], [address], [facility] 5 14:25:44 Chronic right-sided heart failure 54346171 Active 2024 LUIS MANUEL MEHTA NP [address], [place], [address], [facility] 5 14:25:46 History of anemia 631392789 Active 2024 LUIS MANUEL MEHTA NP [address], [place], [address], [facility] [facility] 5 14:25:48 History of deep vein thrombosis 201878230 Active 2024 LUIS MANUEL MEHTA NP [address] [facility], [address], [place], [address], [facility] 5 14:25:51 Problem Notes None recorded. Medical Equipment None Reported. Allergies Allergen ID Allergen Name Allergen Category Reaction Reaction Severity Criticality Documentation Date Start Date Code Code System Note Provider Name and Address Organization Details Recorded Time 70232 oxycodone medicatio n Not available Not available Not available 10/29/2024 7804 RxNorm GI upset LUIS MANUEL MEHTA NP [address], [address], [place], [address], [facility] 5 12:21:54 Medications Name Sig Start Date Stop Date Status Note LastModified by Organization Details LastModified Time Lyrica 75 mg capsule Take 1 capsule twice a day by oral route. 025 active Not Available Not Available Not Avai lable Vitals Date Recorded Heart rate Respiratory rate Body temperature Oxygen saturation Oxygen saturation in Arterial blood by Pulse oximetry Systolic And Diastolic Provider Name and Address Organization Details Last Updated DateTime 5 79 /min 18 /min 97.6 [degF] 92 % 92 % 115/66 mm[Hg] LUIS MANUEL MEHTA NP [address] [facility], [facility] [address], [place], [address], [facility] 5 12:03:29 Date Recorded Systolic And Diastolic Provider Name and Address Organization Details Last Updated DateTime 10/30/2024 115/66 mm[Hg] Stefano Rehman MD [address] [facility], [facility] [address], [place], [address], [facility] 10/30/2024 12:04:22 Date Recorded Heart rate Respiratory rate Body temperature Oxygen saturation Oxygen saturation in Arterial blood by Pulse oximetry Systolic And Diastolic Provider Name and Address Organization Details Last Updated DateTime 5 94 /min 18 /min 97.3 [degF] 93 % 93 % 168/97 mm[Hg] LUIS MANUEL MEHTA NP [address] [place] [address], [place], [address], [facility] 5 15:11:10 Social History Question Answer Notes LastModified by Organizat ion Details LastModified Time Tobacco Smoking Status Current Every Day Smoker LUIS MANUEL MEHTA NP [address] [place] [address], [place], [address], [facility] 10/29/2024 12:25:34 What Is Your Code Status? Full Code [email or web address] Information not available 10/29/2024 Where Do You Live? Other [address], Previously Homeless. Information not available 10/29/2024 What Was The Date Of Your Most Recent Tobacco Screening? 10/29/2024 Information not available 10/29/2024 Do You Have An Out Of Hospital DNR? Yes [email or web address] Information not available 10/29/2024 How Much Tobacco Do You Smoke? 0.25 PPD Information not available 10/29/2024 Sex: Unknown Functional Status Question Answer Note LastModified by Organizat ion Details LastModified Time Do you use any illicit or recreational drugs? No cocaine abuse, sober since 05/2024 Information not available 10/29/2024 Do you or have you ever used any other forms of tobacco or nicotine? No [email or web address] Information not available 10/29/2024 What is your level of alcohol consumption? None prior use, sober since 05/2024 [email or web address] Information not available 10/29/2024 Mental Status None recorded. Family History Nothing Reported Notes:both parents , mom unknown, dad displacement of CVC. Medical History No medical history recorded. Past Encounters Encounter ID Performer Location Encounter Start Date Encounter Closed Date Diagnosis/Indication Diagnosis SNOMED-CT Code Diagnosis ICD10 Code Diagnosis IMO Codes Diagnosis Note [id number] LUIS MANUEL MEHTA NP [address] [address] 10/29/2024 12:02:37 11/05/2024 13:19:50 Pneumonia 077821985 J18.9 [id number] Treated with nebs, O2, steroids, and antibiotic s at [facility] with improvemen t in condition. Complicate d by COPD exac. and ANA.Comple te doxy 100 mg bid and ceftin 500 mg bid x 10 daysAdd probiotic x 10 daysContin ue prednisone taper.Karolina ins on O2 2L continuous .Continue anoro elipta, prn albuterolM onitor resp status, sats, VS, labs Acute exac erbation of chronic obstructive pulmonary disease 216722746 J44.1 329927 Complicate d by PNA and OSAContinu e meds/O2/PO C as aboveMonit or resp. sx. Morbid obesity 730495123 E66.01 11896 s/p gastic bypass.Enc ourage diet compliance and exercise Asthenia 63300176 R53.1 80803 75616 PT OT eval and tx.Goal is to return to [address] Cellulitis of lower leg 961946740 L03.116 L03.550 1085184 Continue ceftin 500 mg bid and doxy 100 mg bid x 10 daysAdd probioticM onitor VS, labs, sx.Needs follow up with Vasc. Dr. Jean Baptiste re: varicositi es - update with concerns Varicose v ein of lower limb with phlebitis 558400450 I83.11 3697656 As noted in hosp.Seen by Dr. Jean Baptiste, instructed to complete antibiotic s and follow up in office next week, ito r Cocaine use disorder 544 4414165 F14.10 36817391 Sober since 5Curr ently living in [address].Abst inence encouraged , emotional support provided. Major depr essive disorder 237287899 F32.9 7859650728 With anxiety as wellContin ue home meds:dulox etine 30 mg qdtrazodon e 200 mg q hshydroxyz ine 50 mg tid prnremeron 45 mg q hsoxcarbaz apine 150 mg bid Due to nightmares , will add prazosin 1 mg q hs, monitor effect, adjust as needed. Pt. agreeable to trying. Psych eval prnMonitor mood, behaviors Sheltered homelessness 9964986085 17427 Z59.01 4602084784 Currently living in a [address], previously homeless. Obstructiv e sleep apnea syndrome 02046384 G47.33 1130923 Just finished sleep study.CPAP recommende d, but currently on continuous O2 2LNeeds follow up with Dr. Sylvester in regards to CPAP - has appt. ito r resp. status Peripheral vascular disease 967043948 I73.9 92519 SuspectedC urrently treating for cellulitis and has follow up with Vasc. Dr. Jean Baptiste in regards to varicose vein inflammati on, appt. ito r Gastroesop hageal reflux disease without esophagitis 680525884 K21.9 384807 Continue omeprazole 20 mg qdMonitor GI sx. History of anemia 029344 002 Z86.2 12239265 Trend CBCs Edema of l ower extremity 986823331 R60.0 44611 Continue lasix 40 mg qdElevate legs when ableFollow ing up with Dr. Jean Baptiste to address product engineer y concernsMo nitorTrend VS, wts, labs, swelling Chronic back pain 713901 002 M54.9 G89.29 70609971 Continue home meds:dulox etine 30 mg qdlyrica 75 mg bidibuprof en 600 mg tid prnmeloxic am 15 mg q hsbaclofen 10 mg bidMonitor Generalized arthritis 20 1497572 M19.90 57731878 s/p B THRs and R TKRalso with chronic back painmeds as abovePT OT eval and tx. History of deep vein thrombosis 585773828 Z86.397 1723440 MonitorUS at [facility] neg for DVTNot on AC at this time.Encou rage mobility/a ctivity, monitor Chronic ri ght-sided heart failure 72088223 I50.812 987428 Continue lasix 40 mg qdMonitor CP status. s/s decompensa tion. Tobacco user 698661389 F 17.200 02988 Smokes about 5 cigarettes per day.Declin es nicoderm patchSmoki ng cessation discussedM onitor [id number] Stefano Rehman MD [address] [address] 10/30/2024 12:03:48 11/05/2024 13:36:41 Pneumonia 205031600 J18.9 4933574904 respirator y failure secondary to pneumonia and copdcomple te abx coursemoni tor respirator y status and need to repeat imaging Acute exac erbation of chronic obstructive pulmonary disease 075434658 J44.1 488985 see HPIcontinu e prednisone tapermonit or respirator y status and need to extend Cellulitis of lower leg 473992372 L03.116 L03.515 1120604 on above abx courseto f/u with vascular or evaluation with known varicose veins Obstructiv e sleep apnea syndrome 16870903 G47.33 6087426 currently on O2 by [place] as aboveto f/u for CPAP recs with pulmonary Asthenia 73747265 R53.1 37382 PT OT eval and treatmonit or level of need with patient goal to return to senior living house Morbid obesity 975150859 E66.01 58004 hx morbid obesity s/p gastric bypassdiet ksenia to follow Cocaine use disorder 910 2242710 F14.10 39995102 added to PMHwas living in senior living house Chronic back pain 225411 002 G89.29 M54.89 34291296 continue out patient medication savoid narcotic medication sphysiatry eval prn Sheltered homelessness 7714477970 90810 Z59.01 9626416589 was in senior living [facility] essness may be barrier to dischargeS W to be involved Tobacco user 329031660 F 17.200 71024 with above copd exacerbati onencourag e quittingst ill going out to smoke 3+ cigarettes per dayrefuses replacemen t Gastroesop hageal reflux disease without esophagitis 144064100 K21.9 807761 omeprazole 20 mg qdmonitor sx relief Chronic ri ght-sided heart failure 62393576 I50.812 319968 lasix 40 mg qdmonitor respirator y and fluid status [id number] [facility] [address] 11/03/2024 15:09:58 11/05/2024 14:26:28 Pneumonia 241873139 J18.9 3484664953 Treated with nebs, O2, steroids, and antibiotic s at [facility] with improvemen t in condition. Complicate d by COPD exac. and ANA.Clinic ally improving. Complete doxy 100 mg bid and ceftin 500 mg bid x 10 days, probiotic as well.Odalis nue prednisone taper.Karolina ins on O2 2L continuous , chooses to wear only at rest, forgoes when activeCont inue anoro elipta, prn albuterolC ontinue to monitor resp status, sats, VS, labsFollow up with Pulm 11/04 Acute exac erbation of chronic obstructive pulmonary disease 456830209 J44.1 358321 Complicate d by PNA and OSAContinu e meds/O2/PO C as aboveMonit or resp. sx., currently improved.F ollow up with Pulm 11/04 Cellulitis of lower leg 851602520 L03.116 L03.535 1636428 Continue ceftin 500 mg bid and doxy 100 mg bid x 10 days as well as probioticM onitor VS, labs, sx.[facility]: varicositi es 11/05 Varicose v ein of lower limb with phlebitis 757025744 I83.11 2781044 As noted in hosp.Seen by Dr. Jean Baptiste, instructed to complete antibiotic s and follow up in office next week, 11/05Monito r Obstructiv e sleep apnea syndrome 67697156 G47.33 6850722 Just finished sleep study.CPAP recommende d, but currently on continuous O2 2LFollow up with Dr. Sylvester in regards to CPAP tomorrowMo nitor resp. status Asthenia 30434014 R53.1 87400 85660 Continue PT OTGoal is to return to [address].Ambu lating ad cameron. Peripheral vascular disease 957711345 I73.9 39311 SuspectedC urrently treating for cellulitis and has follow up with Vasc. Dr. Jean Baptiste in regards to varicose vein inflammati on, appt. ito r Morbid obesity 487975925 E66.01 79718 s/p gastic bypass.Enc ourage diet compliance and exercise Cocaine use disorder 515 8518576 F14.10 12280639 Sober since 5Curr ently living in [address].Abst inence encouraged , emotional support provided. Major depr essive disorder 178444486 F32.9 4072518510 With anxiety as wellContin ue home meds:dulox etine 30 mg qdtrazodon e 200 mg q hshydroxyz ine 50 mg tid prnremeron 45 mg q hsoxcarbaz apine 150 mg bid Due to nightmares , added prazosin 1 mg q hs, pt. states not very effective so far. Continue to monitorWil l refer to Psych as well. Monitor mood, behaviors Chronic back pain 091603 002 M54.9 G89.29 14101486 Continue home meds:dulox etine 30 mg qdlyrica 75 mg bidibuprof en 600 mg tid prnmeloxic am 15 mg q hsbaclofen 10 mg bidMonitor Sheltered homelessness 2812379517 74518 Z59.01 0331265645 Currently living in a [address], previously homeless. Tobacco user 815478631 F 17.200 59002 Smokes about 5 cigarettes per day.Declin es nicoderm patchSmoki ng cessation discussedM onitor Gastroesop hageal reflux disease without esophagitis 214397256 K21.9 623974 Continue omeprazole 20 mg qdMonitor GI sx. Edema of l ower extremity 686426397 R60.0 07545 Continue lasix 40 mg qdElevate legs when ableFollow ing up with Dr. Jean Baptiste to address product engineer y concernsCu rrently with 10 lb. wt. gain, unsure if true gain or scale error.Will request re-weighMo nitorTrend VS, wts, labs, swelling Generalized arthritis 20 4063174 M19.90 81837985 s/p B THRs and R TKRalso with chronic back painmeds as abovePT OT eval and tx. Chronic ri ght-sided heart failure 74305060 I50.812 261657 Continue lasix 40 mg qdRecent 10 lb weight gain - unsure if scale error.Clin ically no s/s fluid overloadRe quest reweighMon itor CP status. s/s decompensa tion closely History of anemia 035756 002 Z86.2 74242422 Trend CBCs History of deep vein thrombosis 466326133 Z86.861 4085504 MonitorUS at [facility] neg for DVTNot on AC at this time.Encou rage mobility/a ctivity, monitor Health Concerns Section Related Observation LastModified by Organization Detai ls LastModified Time None Recorded Concern Status LastModified by Organization Details LastModified Time None Recorded Advance Directives Directive None Recorded Payers Insurance Date Sequence Insurance Name Policy Number Policy Swartz Covered Member ID Swartz Member ID Guarantor Name 11/03/2024 1 [employer] (MEDICARE REPLACEMENT/ ADVANTAGE - PPO) [id number] Chuy Castro [id number] Chuy Castro Notes Date Note Type Note Provider Name and Address Organization Details Recorded Time 10/30/19 25 text/htm azam Vera is seen today for initial intake.He is a 58 yo male, admitted to [facility] 10/27/24 from [facility] for continued care and rehab after a hospitalization due to acute hypoxemic resp. failure and BLE cellulitis. He presented to [facility] ER 10/24 from a sleep center after being told by the tech he was in acute respiratory failure.At [facility], resp. failure felt related to PNA (poss. aspiration) and COPD exac. Treated with nebs, steroids, antibiotics with improvement. Remains on prednisone taper, po ceftin and doxy as well as home resp. meds upon d/c here. Currently requires O2 2L via NC to maintain sats. Of note, incidental finding of pulmonary nodules RLL, new compared to prior imaging, unclear if related to current infectious/inflammatory process. Rec follow up CT 3-6 months to monitor. He is to follow up with Dr. Sylvester's office in regards to CPAP. BLEs neg for DVT, no sig. stenosis. Seen by Dr. Jean Baptiste, for varicose veins RLE with inflammation - plans are to complete abx. tx. then follow up outpt. 10/29 for further mgmt. Current smoker, declined nicoderm patch. VSSNo admit labs done.Case discussed with CNAs - he is going outside to smoke, and ambulates without his O2, but will wear it when at rest. Sat 87 % on O2 per MISSION COORDINATOR today. Upon exam, Chuy is coming in from smoking. Alert, NAD. In general he is feeling good, better than when he went into the hospital. Notes he needs the HOB elevated at [facility] to help with his breathing. Occasional cough. No dizziness, weakness. Mood stable, but having nightmares for a while. Sees [facility] outpt., and has had inpt. psych stays as well in addition to multiple admissions for PNA. Smoking discussed, he is aware he should not be smoking, but he is proud of the fact that he is not drinking or drugging anymore and has been sober for 5 months. He is expressing concerns about returning to the [address] due to the space, concerned it will be problematic to have to use oxygen 24/ as the place is crowded. NEGRETE: mod. fall risk PMH: B THRs, colonic tear s/p colostomy with reversal, gastric bypass, trach (now closed) for ANA when weighed >600 lbs., diverticulitis, hemorrhoids, cervical radiculopathy, COPD, cellulitis BLEs, suspected PVD, MO, substance use (cocaine) disorder (sober since 2024, living in [address], tobacco use, MDD, GERD, ngo's palsy, PA, edema, back pain, OA, history of DVT LE, right sided HFMOLST: full code LUIS MANUEL MEHTA NP [address] [facility], [address], [place], [address], [facility] 10/29/2024 14:25:58 10/31/19 text/htm l Patient is a 58 yo male admit from hospital after presenting with increasing SOB. Found to be in acute respiratory failure secondary to COPD exacerbation and pneumonia. Treated with abx, steroid course, nebs and O2. Incidental pulmonary nodules noted to have repeat CT in 3-6 months PMH significant forhx morbid obesity s/p gastric bypasscopdhx ETOHtobacco use dxgerdOAhx DVTchfgerdpolysubstance abuse hx - cocainehomelessnessanemia admit to facility for continued care and therapy eval and treat Stefano Rehman MD [address] [facility], [address], [place], [address], [facility] 10/30/2024 12:29:47 11/04/19 text/htm l Chuy is seen today for an acute visit. He is a 58 yo male, admitted to [facility] 10/27/24 from [facility] for continued care and rehab after a hospitalization due to acute hypoxemic resp. failure and BLE cellulitis. Incidental finding of pulmonary nodules RLL, unclear if related to current infectious/inflammatory process. Rec follow up CT 3-6 months to monitor. Since admission, Chuy has been working with rehab. Currently fairly high functioning, ambulates in the halls and down to smoke. Does not wear O2 when ambulating, but does wear it at rest.VSS, 132/76, 68 todayWt 345 -> 355 lbs.Labs 11/02/24 stable.Prazosin started for bad dreams, so far not very effective per pt., not sleeping great because of this. Upon exam, Chuy is resting in bed, easily arousable, NAD. In general he is feeling better, breathing improved, no CP. No lightheadeness. Appetite great, eats what he is served, Taking fluids but he feels not in excess. Weight gain discussed, and he does not feel more bloated than usual; clothes, socks, shoes not tighter. No GI or bladder issues. NEGRETE: mod. fall risk PMH: B THRs, colonic tear s/p colostomy with reversal, gastric bypass, trach (now closed) for ANA when weighed >600 lbs., diverticulitis, hemorrhoids, cervical radiculopathy, COPD, cellulitis BLEs, suspected PVD, MO, substance use (cocaine) disorder (sober since 2024, living in [address], tobacco use, MDD, GERD, ngo's palsy, PA, edema, back pain, OA, history of DVT LE, right sided HFMOLST: full code LUIS MANUEL MEHTA NP [address] [facility], [address], [place], [address], [facility] 11/03/2024 15:37:17
--- OUTSIDE RECORDS SUMMARY | 2025-01-10 15:17 | XMS_ITS | Clinical Summary ---
Author Organization [facility] Address [address] [place] [phone] Phone Care Team Providers Care Pig Farm Manager Name Role Phone Manuel Foy Primary [...] Active ferrous sulfate 324 mg (65 mg kaltag iron) TbEC Take 324 mg by mouth [...] (2 of 2 - PCV) 04/23/2020 04/23/2019 INFLUENZA VACCINE (#1) 2024 , 04/23/2019 COVID-19 VACCINE (2 - 2024-2 6 season) 2024 06/30/2022 SCREENING FOR DIABETES 03/01/2027 03/01/2024 HEPATITIS [...] Date Last Indicated MDR-GN 03/01/2024 03/01/2024 Insurance [facility] [employer] PPO MEDICARE REPLACEMENT MEDICARE PART A & B [facility] AETNA PPO MEDICARE REPLACEMENT MEDICARE PART A & B [place] [facility] RE[facility] PART A & [place] MEDICARE REPLACEMENT MEDICARE PART A & B [facility] AET[facility] O MEDICARE REPLACEMENT MEDICARE PART A & B Member Subscriber Plan / Payer (Ef fective 2004-) Name:Chuy Castro Member ID:[id number] Relation to Subscriber:Self Name:Chuy Castro Subscriber ID:[id number] Payer ID:[id number] Group ID:Not on file Type:Medicare Address: [facility] ticketscript [address] [place] [phone] [facility] MEDICARE REPLACEMENT MEDICARE PART A & B Member Subscriber Plan / Payer (Ef fective 2004-Present) Name:Castro, Chuy Rafael Member ID:[id number] Relation to Subscriber:Self Name:Chuy Castro Subscriber ID:[id number] Payer ID:[id number] Group ID:Not on file Type:Medicare Address: [employer] [address] [place] [id number] Advance Directives For more information, please contact: [phone] (9AM - 5PM Mar/[facility], Saturday-Saturday) * Full Code (Latest Code Status on File) Date Activated Date Inactivated Comments 02/28/2024 12:26 AM Question Answer Comments Code Status Confirmed With: Patient Care Teams Pig Farm Manager Relationship Specialty Start Date End Date Manuel Foy PA [address] [place], [place] [phone] PCP - General Physician Front Desk Manager 02/23/24 Additional Source Comments The information contained in this document represents components of the legal health record. It is not the complete legal health record.[facility]
--- OUTSIDE RECORDS SUMMARY | 2025-01-10 15:17 | XMS_ITS | Clinical Summary ---
Author Organization [facility] it Address [address] [place] [address] Care Team Providers Care Basketball Coach Name Role Phone Unavailable Primary Care Provider [...]
--- OUTSIDE RECORDS SUMMARY | 2025-01-10 15:18 | XMS_ITS | Encounter Summary ---
Author Organization [facility] Address [address] [place] [address] Care Team Providers Care Tower Foreman Name Role Phone Paulo Schwarz Primary Care Provider [phone] Encounter Details Date Type Department Care Team ([facility] st Contact Info) Description 11/04/2014 Orders Only [facility] [address] [place] [id number] Stuart Herrera NP Social History Tobacco Use [...] of this encounter Results * Due to [place] state law, [...] changes. Bilateral hip prostheses. us Stuart Herrera CHOCOLATE COATER IMG XRAY NO CONTRAST ORDERAB LES Final Result documented in this encounter Visit Diagnoses Diagnosis Bilateral hip pain- Primary Pain in joint, pelvic region and thigh Bilateral hip pain Pain in joint, pelvic region and thigh documented in this encounter Care Teams Tower Foreman Relationship Specialty Start Date End Date Paulo Schwarz [address] [place] [address] [place] [address] PCP - General 01/07/08 documented as of this encounter
--- OUTSIDE RECORDS SUMMARY | 2025-01-10 15:18 | XMS_ITS | Patient Health Record ---
Author Organization [facility] Address [address] [place] [address] Care Team Providers Care Resolute Professional Name Role Phone [facility] Primary Care Provider Josiane Mohr Unavailable Edda Granado Unavailable Reason For Referral No Information Encounters Encounter Location Date Provider Diagnosis [facility] [address] [place] [address] [phone] 09/14/2024 Edda Granado [facility] [address] [place] [address] [phone] 10/06/2024 Edda Granado [facility] [address] [place] [address] [phone] 10/15/2024 Edda Granado Plan Of Treatment No Information Insurance Providers Payer Name Payer Address Payer Phone Subscriber Number Group Number Insured Name Patient Relationship to Insured Coverage Start Date Coverage End Date [place] [address] [place] [address] [id number] Chuy Castro Self - patient is the insured
--- OUTSIDE RECORDS SUMMARY | 2025-01-10 15:18 | XMS_ITS | Encounter Summary ---
Author Organization [facility] Address [address] [address] Phone Care Team Providers Care Operations General Agent Name Role Phone Pacheco Vargas DO Primary Care Provider [phone] Manuel Foy Primary Care Provider + Encounter Details Date Type Department Care Team (Late st Contact Info) Description 04/09/2018 Transcribe Orders [facility] Specimen Processing [address] [place] [address] Pacheco Vargas DO [address] [facility] [place] [address] [place] [address] [email or web address] Routine general medical examination [...] EST) WBC 7.46 3.40 - 11.20 K/uL [facility] RBC 4.65 4.50 - 5.50 M/uL [facility] HGB 12.8(L) 13.0 - 17.0 g/dL [facility] HCT 39.9(L) 40.0 - 51.0 % [facility] PLT 256 130 - 400 K/uL [facility] MCV 85.8 79.0 - 98.0 fL [facility] MCH 27.5 27.0 - 34.8 pg [facility] MCHC 32.1 31.5 - 36.0 g/dL [facility] RDW 15.5(H) 10.8 - 14.6 % [facility] MPV 11.9 9.4 - 12.4 fl [facility] NRBC 0.00 0.00 /100 WBCs [facility] ABSOLUTE NRBC 0.00 0.00 K/uL [facility] Blood 04/09/2018 10:0 3 AM EST 04/09/2018 11:52 AM EST us Pacheco Vargas DO LAB BLOOD ORDERABLES Final Resul t Performing Organization Address City/State/[facility] Co de Phone Number [facility] [address] [place] [address] documented in this encounter Visit Diagnoses Diagnosis [...] documented as of this encounter Care Teams Operations General Agent Relationship Specialty Start Date End Date Pacheco Vargas DO PCP - General Internal Medicine 04/09/18 02/22/24 Manuel Foy PA [address] [place] [address] PCP - General Physician Electrotherapist 02/23/24 documented as of this encounter Additional Source Comments The information contained in this document represents components of the legal health record. It is not the complete legal health record.[facility]
--- OUTSIDE RECORDS SUMMARY | 2025-01-10 15:18 | XMS_ITS | Clinical Summary ---
Author Organization [facility] Address [address] [place] [address] Care Team Providers Care Epic Ambulatory Specialists Name Role Phone Ref, Has No Pcp [...] AM EST): Patient with COPD presenting from [facility] for hypoxia after he was found to [...] a PCP but does not have a crew caller, may benefit from outpatient referral to decrease incidence of hospitalization. On discharge: -prednisone 40mg daily through 05/26 -Ambulatory pulmonology referral placed Assessment & Plan (05/24/2024 10:55 AM EST): Patient with COPD presenting from [facility] for hypoxia after he was found to [...] a PCP but does not have a crew caller, may benefit from outpatient referral to decrease incidence of hospitalization. -prednisone 40mg daily x 5 days (D1: 27) -duonebs q4hr PRN -albuterol 2.5mg neb q4hr prn -maintain SpO2 88-92% -Ambulatory pulmonology referral on discharge Assessment & Plan (05/23/2024 3:55 PM EST): Patient with COPD presenting from [facility] for hypoxia after he was found to [...] a PCP but does not have a crew caller, may benefit from outpatient referral to decrease incidence of hospitalization. -prednisone 40mg daily x 5 days (D1: 05/22) -duonebs q4hr scheduled -albuterol 2.5mg neb q4hr prn -maintain SpO2 88-92% -may benefit from pulm outpatient Assessment & Plan (05/22/2024 1:21 PM EST): Patient with COPD presenting from [facility] for hypoxia after he was found to [...] a PCP but does not have a crew caller, may benefit from outpatient referral to decrease [...] 100 mg p.o. nightly Patient discharged to [facility] program, they will be assisting him with transitional housing. Discussed with patient that he will need a primary care doctor and he states [facility] program has been helping him organize [...] several hospital admissions for withdrawal, presented from [facility] of acute hypoxic respiratory failure 2/2 COPDe. [...] several hospital admissions for withdrawal, presented from [facility] of acute hypoxic respiratory failure 2/2 COPDe. [...] several hospital admissions for withdrawal, presented from [facility] of acute hypoxic respiratory failure 2/2 COPDe. He has been on a 2 day detox from cocaine and alcohol. Reports last use was 05/20. Was given 10 mg of Valium by [facility] due to withdrawal symptoms and CIWA 10. -CIWA with rescue valium -continue home clonidine 0.1mg 3 times a day prn -thiamine, folic acid, Mag Assessment & Plan (05/22/2024 1:21 PM EST): History of cocaine and OUD with several hospital admissions for withdrawal, presented from [facility] of acute hypoxic respiratory failure 2/2 COPDe. He has been on a 2 day detox from cocaine and alcohol. Reports last use was 05/20. Was given 10 mg of Valium by [facility] due to withdrawal symptoms and CIWA 10. -CIWA with rescue valium -continue home clonidine 0.1mg 3 times a day prn -thiamine, folic acid, Mag Assessment & Plan (05/05/2024 11:43 AM EST): History of cocaine and OUD with several hospital admissions for withrawal, presented from [facility] ([facility]) in the setting of COVID. 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 under [facility]. Was evaluated [...] psychotropic medications. Transferred to the hospital from [facility] under [facility]. Was evaluated [...] psychotropic medications. Transferred to the hospital from [facility] under [facility]. I am [...] psychotropic medications. Transferred to the hospital from [facility] under [facility]. I am [...] psychotropic medications. Transferred to the hospital from [facility] under [facility]. I am unclear at this time if he is also under Section 12 (hospitalized for 02/2024). Will need to clarify with psychiatry CL here - HOLD loxapine 100 mg [not noted in [facility] MAR] - Continue Z[facility] 10 mg daily [facility] - Hydroxyzine 25 mg every 8 [...] to re-establish care with PCP. He said [facility] program is helping him with this [...] (05/22/2024 1:21 PM EST): Patient presenting from [facility] with acute hypoxia, placed on 4L. Initial [...] 11:29 AM EST): Patient was brought from [facility] due to developing altered mental status (lethargy) after x1 valium for alcohol withdrawal. Immediately became hypoxic with aspiration episode and briefly needed supplemental oxygen, then was sent to [facility] for evaluation. Patient's mental status was back to baseline on 1/4 PM. Last drink was 04/16/24 prior to admission to [facility] on same day. CT head neg. -CIWA protocol with Ativan, discontinued as pt non-scoring -Folic acid & thiamine PO daily -Seizure precautions -SW consulted for AUD. Assessment & Plan (04/23/2024 9:51 AM EST): Patient was brought from [facility] due to developing altered mental status (lethargy) after x1 valium for alcohol withdrawal. Immediately became hypoxic with aspiration episode and briefly needed supplemental oxygen, then was sent to [facility] for evaluation. Patient's mental status was back to baseline on 1/4 PM. Last drink was 04/16/24 prior to admission to [facility] on same day. CT head neg. -CIWA protocol with Ativan, discontinued as pt non-scoring -Folic acid & thiamine PO daily -Seizure precautions -SW consulted for AUD. Assessment & Plan (04/22/2024 9:22 AM EST): Patient was brought from [facility] due to developing altered mental status (lethargy) after x1 valium for alcohol withdrawal. Immediately became hypoxic with aspiration episode and briefly needed supplemental oxygen, then was sent to [facility] for evaluation. Patient's mental status was back to baseline on 1/4 PM. Last drink was 04/16/24 prior to admission to [facility] on same day. CT head neg. -CIWA protocol with Ativan, discontinued as pt non-scoring -Folic acid & thiamine PO daily -Seizure precautions -SW consulted for AUD. Assessment & Plan (04/21/2024 9:58 AM EST): Patient was brought from [facility] due to developing altered mental status (lethargy) after x1 valium for alcohol withdrawal. Immediately became hypoxic with aspiration episode and briefly needed supplemental oxygen, then was sent to [facility] for evaluation. Patient's mental status was back to baseline on 1/4 PM. Last drink was 04/16/24 prior to admission to [facility] on same day. CT head neg. -CIWA protocol with Ativan, discontinued as pt non-scoring -Folic acid & thiamine PO daily -Seizure precautions -SW consulted for AUD. Assessment & Plan (04/20/2024 11:03 AM EST): Patient was brought from [facility] due to developing altered mental status (lethargy) after x1 valium for alcohol withdrawal. Immediately became hypoxic with aspiration episode and briefly needed supplemental oxygen, then was sent to [facility] for evaluation. Patient's mental status was back to baseline on 1/4 PM. Last drink was 04/16/24 prior to admission to [facility] on same day. CT head neg. -CIWA protocol with Ativan -Folic acid & thiamine PO daily -Seizure precautions -SW consulted for AUD. Assessment & Plan (04/19/2024 12:45 PM EST): Patient was brought from [facility] due to developing altered mental status (lethargy) after x1 valium for alcohol withdrawal. Immediately became hypoxic with aspiration episode and briefly needed supplemental oxygen, then was sent to [facility] for evaluation. Patient's mental status was back to baseline on 04/18 PM. Last drink was 04/16/24 prior to admission to [facility] on same day. CT head neg. -[facility] protocol with Ativan -Folic acid & thiamine PO daily -Seizure precautions - consulted for alcoholism. Assessment & Plan (04/18/2024 9:52 PM EST): 58 years old male, chronic alcohol abuse and GERD, transferred from [facility]. Patient has been admitted for alcohol detoxification, patient received Valium and post therapy developed respiratory distress, developed hypoxia and transferred to [facility] via EMS Plan: 1-[facility] protocol 2- replacement of multivitamins [...] drink = 0.6 oz pur e alcohol) [facility] Utilities Answer Date Recorded In the past 12 months has th e [employer], gas, oil, or water company threatened to [...] Screening Completed 06/05/2024 Procedures * Due to [place] state law, this organization might not be [...] to Health Maintenance Results * Due to [place] state law, this organization might not be sharing negative HIV tests. * (ABNORMAL) Basic metabolic panel (06/16/2024 8:26 AM EST) NA 138 135 - 145 mmol/L 06/16/2024 10:05 AM [facility] K 4.6 3.5 - 5.3 mmol/L 06/16/2024 10:05 AM [facility] Cl 98 98 - 107 mmol/L 06/16/2024 10:05 AM [facility] CO2 25 22 - 32 mmol/L 06/16/2024 10:05 AM [facility] BUN 20 7 - 23 mg/dL 06/16/2024 10:05 AM [facility] Creatinine 0.84 0.60 - 1.30 mg/dL 06/16/2024 10:05 AM [facility] Glucose 124(H) 65 - 99 mg/dL 06/16/2024 10:05 AM [facility] Calcium 9.1 8.6 - 10.5 mg/dL 06/16/2024 10:05 AM [facility] Anion Gap 15 5 - 15 06/16/2024 10:05 AM [facility] eGFR >90 >=60 mL/min/1. 73m2 06/16/2024 10:05 AM [facility] Comment:The estimated glomer ular filtration rate (eGFR) is calculated using a new formula developed by the [facility] task force to eliminate race-based correction [...] ORDERABLES Fin al Result Performing Organization Address City/[facility]/ZIP Co de Phone Number [facility] [address] [place] [address], [place] * Hepatitis C Antibody w/Reflex to HCV RNA, Quantitative PCR (06/05/2024 4:23 PM EST) Hepatitis C Antibody NON-REACT BRISSA NON-REACT BRISSA 06/06/2024 9:01 AM EST [employer] [facility] Comment: HCV antibody was non-reactive. There is no laboratory evidence of HCV infection. In most cases, no further action is required. However, if recent HCV exposure is suspected, a test for HCV RNA (test code 58717) is suggested. For additional information please refer to http://education.[employer]/faq/GLV37b9 (This link is being provided for informational/ educational purposes only.) Blood Structure of peripheral vein / Unknown Venipuncture / Unknown 06/05/2024 4:23 PM EST 06/05/2024 4:44 PM EST Narrative [facility] - 06/06/2024 9:01 AM EST [facility] Received Date: John Mello MD LAB BLOOD ORDERABLES Final Re sult Performing Organization Address City/[facility]/ZIP Co de Phone Number [facility] [address] [facility] [address], [place] [address], [place] [phone] [employer] [facility] [address] [facility] [address], [place] [address], [place] [phone] * CT Abdomen Pelvis with Contrast (04/21/2024 [...] to obtain the completed interpretation. Workstation ID: [id number] Narrative 04/22/2024 9:27 AM EST EXAMINATION: CT [...] streak artifact from bilateral total hip arthroplasty. DIRECTOR SALES AND MARKETING TOPOGRAM: As below LUNG BASES: Motion degraded. [...] outside the cortical bone. Resulting Agency Comment [id number] Procedure Note AmeCarol Ann witt MD - [...] metallic streak artifact from bilateraltotal hip arthroplasty. DIRECTOR SALES AND MARKETING TOPOGRAM: As below LUNG BASES: Motion degraded. [...] possible to obtain thecompleted interpretation. Workstation ID: [id number] Nikolai Gonsalez MD IMChen CT PROCEDURES Final [...] to obtain the completed interpretation. Workstation ID: [id number] Narrative 04/21/2024 7:45 AM EST Indication: Lung [...] changes in the spine. Resulting Agency Comment [id number] Procedure Note Anastasiia Mcnamara MD - 04/21/2024 [...] possible to obtain thecompleted interpretation. Workstation ID: [id number] Nikolai Gonsalez MD IMG CT PROCEDURES Final Result from Last 3 Months or Most Recently Relevant to Health Maintenance Insurance [facility] Advance Directives Documents on File Type Date Recorded Patient Electrician Rectifier Maintenance Expl anation Health Care Proxy 04/20/2024 3:47 [...] Agents on File Name Relationship Healthcare Agent Relationspr p Communication Ira Castro [facility] Health Care Agent [id number] (Mobile) Care Teams Epic Ambulatory Specialists Relationship Specialty Start Date End Date Ref, Has No Pcp Or DO NOT EDIT THIS RECORD VIA PROVIDER ON THE FLY PCP - 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
--- OUTSIDE RECORDS SUMMARY | 2025-01-10 15:18 | XMS_ITS | Continuity of Care Document ---
Author Organization [facility] Address [address] [place] [address] Care Team Providers Care Police Communications Operator Name Role Phone Paulo Schwarz Primary Care Provider [phone] Encounters Date Type Department Care Team Description 11/13/2019 Travel 11/13/2019 1:15 PM EDT Radiology [facility] Xray [address] [facility] [address] [place] [phone] Right knee pain, unspecified chronicity 11/13/2019 1:30 PM EDT Consult (Initial) [facility] Orthopedic Surgery [address] [facility] [address] [place] [address] Suresh Velazquez MD Status post total right knee replacement (Primary Dx) 10/06/2019 Travel 10/01/2019 Travel 09/29/2019 Orders Only [facility] Orthopedic Surgery [address] [facility] [address] [place] [address] Suresh Velazquez MD 09/24/2019 Telephone [facility] Orthopedic Surgery [address] [facility] [address] [place] [address] Suresh Velazquez MD Error 09/23/2019 Orders Only [facility] Orthopedic Surgery [address] [facility] [address] [place] [address] Suresh Velazquez MD 09/23/2019 Travel 09/22/2019 Telephone [facility] Orthopedic Surgery [address] [facility] [address] [place] [address] Suresh Velazquez MD Imaging Request 05/20/2017 Telephone [facility] Orthopedic Surgery [address] [facility] [address] [place] [address] Suresh Velazquez MD Patient Questions 05/16/2017 Home Visit Suresh Villanueva MD, MD 05/16/2017 Refill [facility] Orthopedic Surgery [address] [facility] [address] [place] [address] Suresh Velazquez MD Refill Request 05/16/2017 Telephone [facility] Orthopedic Surgery [address] [facility] [address] [place] [address] Suresh Velazquez MD Refill Request 05/14/2017 Home Visit Suresh Villanueva MD, MD 05/14/2017 Telephone [facility] Orthopedics [address] [facility] [address] [place] [address] Suresh Velazquez MD VNA Communication 05/14/2017 Telephone [facility] Orthopedic Surgery [address] [address] Suresh Velazquez MD Patient Questions 05/06/2017 Minor Procedure/Test NON [facility] [address] [place] [address] Suresh Velazquez MD 05/06/2017 [facility] [address] [place] [address] Suresh Velazquez MD 05/02/2017 Orders Only NON FC [facility] [address] [place] [address] Suresh Velazquez MD 04/23/[address] [facility] Cardiology [address] [place] [address] [address] [place] [address] Peggy Gomez Tech 04/22/2017 Orders Only [facility] Pre-Admission Testing [address] [place] [address] Lexie Rust NP 04/22/2017 9:30 AM EST Office Visit [facility] Pre-Admission Testing [address] [place] [address] Lexie Rust NP Pre-operative examination (Primary Dx); Primary osteoarthritis of right knee; Sleep apnea, unspecified type; Increased frequency of urination; Gastroesophageal reflux disease; Deep vein thrombosis (DVT) of proximal lower extremity, unspecified chronicity, unspecified laterality; Obesity, unspecified classification, unspecified obesity type, unspecified whether serious comorbidity present; Iron deficiency anemia, unspecified iron deficiency anemia type; Vitamin B 12 deficiency 04/04/2017 Telephone [facility] Orthopedic Surgery [address] [address] Suresh Velazquez MD Patient Questions 03/21/2017 2:30 PM EST Office Visit [facility] Orthopedic Surgery [address] [address] Suresh Velazquez MD Primary osteoarthritis of right knee (Primary Dx) 11/15/2016 7:45 AM EDT Office Visit [facility] Orthopedic Surgery [address] [address] Ld Mensah PA Primary osteoarthritis of right knee (Primary Dx) 04/19/2016 9:30 AM EST Office Visit [facility] Orthopedic Surgery [address] [address] Suresh Velazquez MD Osteoarthrosis involving lower leg (Primary Dx) 09/02/2015 9:15 AM EDT Consult (Initial) [facility] Orthopedic Surgery [address] [address] Suresh Velazquez MD Osteoarthrosis involving lower leg (Primary Dx) 12/06/2014 Telephone [facility] [address] [place] [address] Stuart Herrera NP Refill Request 11/05/2014 10:45 AM EDT Radiology [facility] [address] [place] [address] Bilateral hip pain 11/05/2014 11:45 AM EDT Office Visit [facility] [address] [place] [phone] Stuart Herrera NP Muscle strain of gluteal region, unspecified laterality, initial encounter (Primary Dx) 11/04/2014 Orders Only [facility] [address] [place] [address] Stuart Herrera NP 07/29/2014 Orders Only NON FC [facility] [address] [place] [address] Sv, Unknown Provider 07/29/2014 2:00 PM EDT Consult (Initial) [facility] Orthopedic Surgery [address] [address] Stuart Herrera NP Muscle strain of left gluteal region, initial encounter (Primary Dx) 07/27/2014 Telephone [facility] Orthopedics [address] [address] Suresh Velazquez MD Patient Questions 03/24/2014 10:30 AM EST Office Visit [facility] Orthopedic Surgery Suite [facility] [address] [address] Becca Du NP Sciatica (Primary Dx) 03/17/2014 Telephone [facility] Orthopedic Surgery Suite [facility] [address] [address] Suresh Velazquez MD Patient Questions 07/28/2013 Telephone [facility] Orthopedic Surgery Suite [facility] [address] [address] Suresh Velazquez MD Letter/form Request (dr velazquez) 07/01/2013 Consult (Initial) REHABILITATION UNSPEC Provider, Unknown 04/27/2013 3:00 PM EST Office Visit [facility] Orthopedic Surgery Suite [facility] [address] [address] Becca Du NP Iliotibial band syndrome (Primary Dx) 04/07/2013 Telephone [facility] Orthopedic Surgery [address] [address] Suresh Velazquez MD No Show 02/02/2013 Refill [facility] Orthopedic Surgery [address] [place] [address] Suresh Velazquez MD Refill Request 01/21/2013 Refill [facility] Orthopedic Surgery [address] [facility] [address] [place] [address] Suresh Velazquez MD Refill Request (marcus) 01/08/2013 Refill [facility] Orthopedic Surgery [address] [facility] [address] [place] [address] Suresh Velazquez MD Refill Request 01/07/2013 Letter/Form [facility] Orthopedic Surgery [address] [facility] [address] [place] [address] Suresh Velazquez MD 12/23/2012 Refill [facility] Orthopedic Surgery [address] [facility] [address] [place] [address] Suresh Velazquez MD Refill Request 12/18/2012 10:45 AM EDT Office Visit [facility] Orthopedic Surgery [address] [facility] [address] [place] [address] Suresh Velazquez MD Osteoarthritis of the pelvic region and thigh (Primary Dx) 12/12/2012 Telephone [facility] Orthopedic Surgery [address] [facility] [address] [place] [address] Suresh Velazquez MD Other (dr velazquez) 12/10/2012 Telephone [facility] Orthopedic Surgery [address] [facility] [address] [place] [address] Suresh Velazquez MD Patient Questions (Dr. Velazquez) 12/09/2012 Refill [facility] Orthopedic Surgery [address] [facility] [address] [place] [address] Suresh Velazquez MD Refill Request 12/08/2012 Orders Only [facility] Orthopedic Surgery [address] [facility] [address] [place] [address] Suresh Velazquez MD 12/08/2012 Refill [facility] Orthopedic Surgery [address] [facility] [address] [place] [address] Suresh Velazquez MD Refill Request 12/03/2012 Refill [facility] Orthopedic Surgery [address] [facility] [address] [place] [address] Suresh Velazquez MD Refill Request ( ) 12/01/2012 Orders Only ORTHO SURG UNSPECIFIED Suresh Velazquez MD 11/27/2012 Telephone [facility] Orthopedic Surgery [address] [facility] [address] [place] [address] Suresh Velazquez MD Other (Becca Wagneruld ) 11/26/2012 Refill [facility] Orthopedic Surgery [address] [facility] [address] [place] [address] Suresh Velazquez MD Refill Request (Dr. Velazquez ) 11/24/2012 Orders Only ORTHO SURG UNSPECIFIED Suresh Velazquez MD 11/19/2012 [facility] NON FC [facility] [address] [place] [address] Suresh Velazquez MD 11/14/2012 Orders Only NON FC [facility] [address] [place] [address] Suresh Velazquez MD 10/27/[address] [facility] Cardiology [address] [facility] [address] [place] [address] Lin John Tech 10/27/2012 11:15 AM EDT Office Visit [facility] Pre-Admission Testing [address] [place] [address] Khurram Sunshine MD Pre-operative examination (Primary Dx); Osteoarthritis of hip; Sleep apnea; Deep vein thrombosis; Gastroesophageal reflux disease; Seizures; Urinary frequency; Obesity 10/09/2012 Refill [facility] Orthopedic Surgery [address] [facility] [address] [place] [address] Suresh Velazquez MD Refill Request 09/19/2012 Orders Only [facility] Orthopedic Surgery [address] [facility] [address] [place] [address] Suresh Velazquez MD 09/05/2012 Refill [facility] Orthopedic Surgery [address] [facility] [address] [place] [address] Suresh Velazquez MD Refill Request 09/05/2012 11:00 AM EDT Consult (Initial) [facility] Orthopedic Surgery [address] [facility] [address] [place] [address] Suresh Velazquez MD Osteoarthritis of the pelvic region and thigh (Primary Dx) 07/04/2010 3:45 PM EDT Office Visit [facility] Orthopedic Surgery [address] [facility] [address] [place] [address] Suresh Velazquez MD DJD (degenerative joint disease) of hip (Primary Dx) 05/05/2010 Telephone [facility] Orthopedic Surgery [address] [facility] [address] [place] [address] Suresh Velazquez MD No Show (Balcom) 02/14/2010 Telephone [facility] Orthopedic Surgery [address] [facility] [address] [place] [address] Suresh Velazquez MD Cancellation (Balcom) 12/28/2009 Telephone [facility] Orthopedic Surgery [address] [facility] [address] [place] [address] Suresh Velazquez MD Patient Questions (BALCOM) 09/30/2009 Refill [facility] Orthopedic Surgery [address] [facility] [address] [place] [address] Suresh Velazquez MD Refill Request 09/14/2009 Refill [facility] Orthopedic Surgery [address] [facility] [address] [place] [address] Suresh Velazquez MD Refill Request 09/02/2009 Telephone [facility] Orthopedic Surgery [address] [facility] [address] [place] [address] Suresh Velazquez MD Patient Questions (balcom) 08/24/2009 Refill [facility] Orthopedic Surgery [address] [facility] [address] [place] [address] Suresh Velazquez MD Refill Request 08/04/2009 Refill [facility] Orthopedic Surgery [address] [address] Suresh Velazquez MD Refill Request 07/26/2009 9:15 AM EDT Office Visit [facility] Orthopedic Surgery [address] [address] Suresh Velazquez MD Osteoarth NOS-unspec (Primary Dx) 07/21/2009 Telephone [facility] Orthopedic Surgery [address] [address] Suresh Velazquez MD Patient Questions (BALCOM) 07/19/2009 Telephone [facility] Orthopedic Surgery [address] [address] Suresh Velazquez MD Patient Questions (balcom) 07/13/2009 Telephone [facility] Orthopedic Surgery [address] [address] Suresh Velazquez MD Patient Questions (balcom) 07/08/2009 Telephone [facility] Orthopedic Surgery [address] [address] Suresh Velazquez MD Patient Questions (Balcom ) 07/07/2009 Telephone [facility] Orthopedic Surgery [address] [address] Suresh Velazquez MD VNA Communication 07/07/2009 Telephone [facility] Orthopedic Surgery [address] [address] Suresh Velazquez MD VNA Communication (dr velazquez) 07/04/2009 Telephone [facility] Orthopedic Surgery [address] [address] Suresh Velazquez MD Patient Questions (Balcom ) 06/28/2009 Consult (Initial) NON FC [facility] [address] [place] [address] [facility], Unknown Provider 06/28/2009 [facility] [address] [place] [address] Suresh Velazquez MD 06/23/2009 Orders Only NON FC [facility] [address] [place] [address] Suresh Velazquez MD 06/09/[address] [facility]iology [address] [facility] [address] [place] [address] Lin John Tech 06/08/2009 Orders Only NON FC SA NON FC UNK Provider, Unknown 06/08/2009 8:00 AM EST Office Visit [facility] Pre-Admission Testing [address] [place] [address] [facility] [address] [place] [address] Lexie Rust NP Preop examination; Osteoarthritis of hip; Urinary frequency; Morbid obesity; DVT (deep venous thrombosis); GERD (gastroesophageal reflux disease); Sleep apnea 05/12/2009 Telephone [facility] Orthopedic Surgery [address] [place] [address] [place] [address] Suresh Velazquez MD Patient Questions (marcus) 05/06/2009 Orders Only [facility] Orthopedic Surgery [address] [place] [address] Suresh Velazquez MD 05/06/2009 1:15 PM EST Office Visit [facility] Orthopedic Surgery [address] [place] [address] [place] [address] Suresh Velazquez MD Osteoarth NOS-unspec (Primary Dx) 01/26/2009 Telephone [facility] Orthopedic Surgery [address] [place] [address] [place] [address] Paulo Schwarz Cancellation (Marcus ) 04/23/2008 Telephone [facility] Orthopedic Surgery [address] [place] [address] Suresh Velazquez MD 04/23/2008 Orders Only NON FC SA [facility] [address] [place] [address] Suresh Velazquez MD Allergies No known active [...] 04/23/2019 Social History Smoking Status as of 01/10/2025 Tobacco Use Types Packs/Day Years Used Date [...] Not on file Procedures * Due to [place] state law, this organization might not be [...] 11:55 AM EST Results * Due to [place] state law, this organization might not be [...] BLOOD COUNT 12.8(H) 3.9 - 11.0 x1000/uL [facility] RBC 4.38 4.30 - 5.80 mil/ul [facility] Hemoglobin 12.1(L) 12.5 - 17.0 g/dL [facility] HCT (HEMATOCRIT) 36.8 36.0 - 50.0 % [facility] MCV 84 80 - 100 fL [facility] MCH 28 27 - 33 pg [facility] MCHC 33 31 - 36 g/dL [facility] RDW 16.0(H) 11.4 - 14.4 % [facility] PLATELETS 201 150 - 450 x1000/uL [facility] 05/07/2017 6:05 AM EST 05/07/2017 6:05 AM EST us Suresh Velazquez MD LABORATORY Final Result Performing Organization Address City/[facility]/ZIP Co de Phone Number [facility] [address] [place] [address] * (ABNORMAL) BASIC METABOLIC PANEL (05/07/2017 6:05 AM EST) Only the most recent of7 resultswithin the time period is included. Glucose 94 65 - 99 mg/dL [facility] BUN 11 5 - 26 mg/dL [facility] CREATININE 0.76 0.5 - 1.5 mg/dL [facility] BUN/Creatinine Ratio 14 8 - 27 [facility] GLOM FILT RATE, EST 106.4 >59 mL/min [facility] IF -LAURA N 123.3 >59 mL/min [facility] SODIUM 143 134 - 144 mEq/L [facility] POTASSIUM 3.9 3.6 - 5.6 mEq/L [facility] CHLORIDE 107 96 - 109 mEq/L [facility] CARBON DIOXIDE 29 20 - 32 mEq/L [facility] ANION GAP 7.0(L) 8 - 15 [facility] CALCIUM 8.4 8.3 - 10.0 mg/dL [facility] 05/07/2017 6:05 AM EST 05/07/2017 6:05 AM EST us Suresh Velazquez MD LABORATORY Final Result Performing Organization Address City/[facility]/ZIP Co de Phone Number [facility] [address] [place] [address] * KNEE UNILATERAL 1 OR 2 VIEWS (05/06/2017 3:31 PM EST) RADIOLOGY REPORT [facility] Department of Radiology [address] [place] [address], [id number] Name: WES OLIVO : 67 Date of Service: 05/06/17 1052 Acct Number: [id number] Order Number: [id number] Location: [facility] Report Number: [id number] Service: REG LAC/ Requesting Physician: Suresh Velazquez ([facility]) Category: RADIOLOGY [facility] Exam: KNEE 1 OR 2 VIEWS Right [...] hardware failure. Date/Time of Dictation: 05/06/17 1634 Manager Software (if applicable): Approved By Attending Radiologist: Deacon Hernandez 05/06/17 1634 [facility] Department of Radiology [address] [place] [address], [address] [facility] Anatomical Region Laterality Modality Other 05/06/2017 3:31 PM EST Narrative 05/06/2017 4:34 PM EST Reason for Study/History: Department of Radiology TEST(S) PROCESSED BY [facility] XRAY us Suresh Velazquez MD IMAGING-[facility] Final Result * UNSPECIFIED MAJOR PROCEDURE (05/06/2017) Narrative Procedure Note Suresh Velazquez MD - 05/06/2017 10:19 AM EST OPERATIVE REPORT DATE OF OPERATION: 05/06/2017 ATTENDING SURGEON: Dr. Suresh Velazquez. PREOPERATIVE DIAGNOSIS: Degenerative joint disease, right knee. POSTOPERATIVE DIAGNOSIS: Degenerative joint disease, right knee. PROCEDURE PERFORMED: Right total knee arthroplasty. TOURNIQUET TIME: 47 minutes. DATABASE MANAGEMENT SYSTEM SPECIALIST: Cory Kaiser, advanced practitioner certified. IMPLANTS USED: [...] 10:04 A TT: 10:19 A Doc #: [id number] cc: Suresh Velazquez MD Suresh Velazquez MD PROCEDURES Final Result * BLOOD TYPE AND ANTIBODY SCREEN (05/02/2017 3:20 PM EST) Only the most recent of3 resultswithin the time period is included. BLOOD GROUP ABO O [facility] RH-(D) Positive [facility] ANTIBODY SCREEN Negative Negative [facility] 05/02/2017 3:20 PM EST 05/02/2017 3:20 PM EST Suresh Velazquez MD LABORATORY Final Result Performing Organization Address [facility] Co de Phone Number [facility] [address] [place] [address] * MRSA CULTURE SCREEN, NASAL ONLY (04/22/2017 12:22 PM EST) Only the most recent of2 resultswithin the time period is included. Methicillin Resistant Staphylococcus Aureus Screen SEE NOTE [facility] Comment: MRSA CULTURE SCREEN MICRO NUMBER: [id number] TEST STATUS: FINAL SPECIMEN SOURCE: NOT GIVEN SPECIMEN QUALITY: ADEQUATE RESULT: No methicillin resistant Staphylococcus aureus (MRSA) isolated. 04/22/2017 12:2 2 PM EST 04/22/2017 5:52 PM EST Narrative Resulting Agency Comment [id number] Lexie Rust NP LABORATORY Final Result [facility] [address] [place] [address] * EKG-TO BE READ AND BILLED BY [...] AM EST 04/22/2017 10:11 PM EST Result [facility] Lexie Rust NP CARDIOVASCULAR-WITH INBSKT R TG Final Result Performing Organization Address City/[facility]/ZIP Co de Phone Number [facility] * CULTURE, URINE, ROUTINE (04/22/2017 9:54 AM EST) Only the most recent of2 resultswithin the time period is included. Bacteria culture (Urine) SEE NOTE [facility] Comment: CULTURE, URINE, ROUTINE MICRO NUMBER: [id number] TEST STATUS: FINAL SPECIMEN SOURCE: NOT GIVEN SPECIMEN QUALITY: ADEQUATE RESULT: Single organism less than 10,000 CFU/mL isolated. These organisms, commonly found on external and internal genitalia, are considered colonizers. No further testing performed. 04/22/2017 9:54 AM EST 04/22/2017 2:49 PM EST Narrative Resulting Agency Comment [id number] Result [facility] Lexie Rust NP LABORATORY Final Result Performing Organization Address [facility] Co de Phone Number [facility] [address] [place] [address] * PROTHROMBIN TIME (PT) (INR), BLOOD (04/22/2017 9:54 AM EST) Pathologist [facility] INR 1.0 [facility] Comment: Reference Range 0.9-1.1 Moderate-intensity Warfarin Therapy 2.0-3.0 Higher-intensity Warfarin Therapy 3.0-4.0 PT 10.3 9.0 - 11.5 sec [facility] Comment: For more information on this test, go to: http://education.ubitus.[email or web address]/faq/[email or web address] 04/22/2017 9:5 4 AM EST 04/22/2017 2:49 PM EST Narrative Resulting Agency Comment [id number] Lexie Rust [facility] REPRESENTATIVE LAB SAME DAY RESULT Final Re sult [facility] [address] [place] [address] * (ABNORMAL) CBC INCLUDES DIFFERENTIAL AND PLATELET [...] 2:49 PM EST Narrative Resulting Agency Comment [id number] us Haylee [facility] REPRESENTATIVE LAB SAME DAY RESULT Final Re sult [facility] [address] [place] [address] * (ABNORMAL) BASIC METABOLIC PANEL WITH (GFR) (04/22/2017 9:54 AM EST) Only the most recent of2 resultswithin the time period is included. Pathologist [facility] Glucose 79 65 - 99 mg/dL [facility] Comment:Fasting reference in terval Urea Nitrogen Blood (BUN) 6(L) 7 - 25 mg/dL [facility] Creatinine 0.88 0.70 - 1.33 mg/dL [facility] Comment: For patients >49 years of age, the reference limit for Creatinine is approximately 13% higher for people identified as -[place]omali. GFR 100 > OR = 60 mL/min/1. [...] needs for GFR calculation. Resulting Agency Comment [id number] us Lexie Rust NP LABORATORY Final Result Performing Organization Address City/State/[facility] Co de Phone Number [facility] [address] [place] [address] * KNEE 3 VW MIN W/OBLIQUES (03/21/2017 5:24 PM EST) RADIOLOGY REPORT [facility] Department of Radiology [address] [place] [address], [phone] Name: WES OLIVO : 67 Date of Service: 03/21/17 1445 Acct Number: [id number] Order Number: [id number] Location: [facility] Report Number: [id number] Service: REG REF/ Requesting Physician: Suresh Velazquez ([facility]) Category: ORTHOPEDIC RADIOLOGY [facility] Exam: KNEE 3 VW MIN Right Signs/Symptoms: [...] to large effusion. Date/Time of Dictation: 03/21/171827 Manager Software (if applicable): Approved By Attending Radiologist: Doni Pedro 03/21/171827 [facility] Department of Radiology [address] [place] [address], [id number] [facility] RAD Anatomical Region Laterality Modality Other 03/21/2017 5:24 PM EST Narrative 03/21/2017 6:28 PM EST Reason for Study/History: Department of Radiology TEST(S) PROCESSED BY [facility] XRAY Suresh Velazquez MD IMAGING[facility] Final Result * XRAY KNEE AP LAT & OBLQ MIN 3 VW - RIGHT (09/02/2015 11:21 AM EDT) RADIOLOGY REPORT [facility] Department of Radiology [address] [place] [address], [address] Name: WES OLIVO : 67 Date of Service: 09/02/15930 Acct Number: [id number] Order Number: [id number] Location: [facility] Report Number: [id number] Service: REG REF/ Requesting Physician: Suresh Velazquez ([facility]) Category: ORTHOPEDIC RADIOLOGY [facility] Exam: KNEE 3 VW MIN Right Signs/Symptoms: [...] compartment osteoarthritis. Date/Time of Dictation: 09/02/15 1125 Manager Software (if applicable): Approved By Attending Radiologist: Tobi Gray 09/02/15 1125 [facility] Department of Radiology [address] [place] [address], [phone] [facility] RAD Anatomical Region Laterality Modality Other 09/02/2015 11:2 1 AM EDT Narrative 09/02/2015 11:26 AM EDT Reason for Study/History: Department of Radiology TEST(S) PROCESSED BY [facility] XRAY Suresh Velazquez MD [facility] Final Result * XRAY HIPS WITH PA [...] the time period is included. RADIOLOGY REPORT [facility] Department of Radiology [address] [place] [address], [phone] Name: WES OLIVO : 67 Date of Service: 07/29/14 1425 Acct Number: [id number] Order Number: [id number] Location: [facility] Report Number: [id number] Service: PRE REF/ Requesting Physician: Stuart Velez ([facility]) Category: ORTHOPEDIC RADIOLOGY [facility] Exam: HIP UNILAT 2 VIEWS Left Signs/Symptoms: [...] Approved Electronically By/Date: Alfonzo Peterson 07/29/14 1538 [facility] Department of Radiology [address] [place] [address], [phone] [facility] RAD Anatomical Region Laterality Modality Other 07/29/2014 3:34 PM EDT Narrative 07/29/2014 3:39 PM EDT Reason for Study/History: Department of Radiology TEST(S) PROCESSED BY [facility] XRAY us Unknown Provider [facility] IM[facility] Final Resul t * PELVIS 1 OR 2 VIEWS (07/29/2014 3:34 PM EDT) Only the most recent of8 resultswithin the time period is included. RADIOLOGY REPORT [facility] Department of Radiology [address] [place] [address], [phone] Name: WES OLIVO : 67 Date of Service: 07/29/14 1425 Acct Number: [id number] Order Number: [id number] Location: [facility] Report Number: [id number] Service: PRE REF/ Requesting Physician: Stuart Velez ([facility]) Category: ORTHOPEDIC RADIOLOGY [facility] Exam: PELVIS 1 OR 2 VIEWS Signs/Symptoms: [...] Approved Electronically By/Date: Alfonzo Peterson 07/29/14 1538 [facility] Department of Radiology [address] [place] [address], [phone] [facility] RAD Anatomical Region Laterality Modality Other 07/29/2014 3:34 PM EDT Narrative 07/29/2014 3:39 PM EDT Reason for Study/History: Department of Radiology TEST(S) PROCESSED BY [facility] XRAY us Unknown Provider [facility] Final Resul t * HIP UNILATERAL 2 [facility] (03/24/2014 4:40 PM EST) Only the most recent of4 resultswithin the time period is included. RADIOLOGY REPORT [facility] Department of Radiology [address] [place] [address], [address] Name: WES OLIVO : 67 Date of Service: 03/24/14 1003 Acct Number: [id number] Order Number: [id number] Location: [facility] Report Number: [id number] Service: REG REF/ Requesting Physician: Becca Du ([facility]) Category: ORTHOPEDIC RADIOLOGY [facility] Exam: HIP UNILAT 2 VIEWS Right Signs/Symptoms: [...] view. Interpreting Resident: Date/Time of Dictation: 03/24/14 [facility] Approved Electronically By/Date: Michael Anders 03/24/14 1640 [facility] Department of Radiology [address] [place] [address], [phone] [facility] RAD Anatomical Region Laterality Modality Other 03/24/2014 4:40 PM EST Narrative 03/24/2014 4:40 PM EST Reason for Study/History: Department of Radiology TEST(S) PROCESSED BY [facility] XRAY Becca Du [facility] REPRESENTATIVE [facility] Final Result * UNSPECIFIED DIAGNOSTIC PROCE (12/08/2012) Only the most recent of5 resultswithin the time period is included. Narrative Transcriptions Suresh Velazquez MD - 12/24/2012 12:00 AM EDT Suresh Velazquez MD LABORATORY Final Result * PELVIS 1 OR 2 VIEWS (11/19/2012 4:51 PM EDT) Only the most recent of2 resultswithin the time period is included. RADIOLOGY REPORT [facility] Department of Radiology [address] [place] [address], [phone] Name: WES OLIVO : 67 Date of Service: 11/19/12 1636 Acct Number: [id number] Order Number: [id number] Location: [facility] Report Number: [id number] Service: ADM IN/LEROY Requesting Physician: Suresh Velazquez ([facility]) Category: RADIOLOGY [facility] Exam: PELVIS 1 OR 2 VIEWS Signs/Symptoms: [...] Approved Electronically By/Date: Tracey Lawson 11/19/12 1652 [facility] Department of Radiology [address] [place] [address], [phone] [facility] Anatomical Region Laterality Modality Other 11/19/2012 4:51 PM EDT Narrative 11/19/2012 4:52 PM EDT Reason for Study/History: Department of Radiology TEST(S) PROCESSED BY [facility] XRAY Suresh Velazquez MD [facility] Final Result * HIP UNILATERAL 2 VIEW - RIGHT (11/19/2012 4:50 PM EDT) RADIOLOGY REPORT [facility] Department of Radiology [address] [place] [address], [phone] Name: WES OLIVO : 67 Date of Service: 11/19/12 1637 Acct Number: [id number] Order Number: [id number] Location: [facility] Report Number: [id number] Service: ADM IN/LEROY Requesting Physician: Suresh Velazquez ([facility]) Category: RADIOLOGY [facility] Exam: HIP 2 VIEWS UNILATERAL Right Signs/Symptoms: [...] Approved Electronically By/Date: Tracey Lawson 11/19/12 165 [facility] Department of Radiology [address] [place] [address], [phone] [facility] RAD Anatomical Region Laterality Modality Other 11/19/2012 4:50 PM EDT Narrative 11/19/2012 4:51 PM EDT Reason for Study/History: Department of Radiology TEST(S) PROCESSED BY [facility] XRAY Suresh Velazquez MD [facility] Final Result * UNSPECIFIED MAJOR PROCEDURE (11/19/2012) [...] extended neck offset. SURGEON: Suresh Velazquez MD DATABASE MANAGEMENT SYSTEM SPECIALIST: Becca Du NP. INDICATIONS: The patient has [...] quadratus femoris and the inferior capsule. A [place] blade was then used to release the [...] 2:48 P TT: 2:59 P Doc #: [id number] cc: Suresh Velazquez MD Suresh Velazquez MD PROCEDURES Final Result * HIP UNILAT 2 VIEWS (09/05/2012 12:25 PM EDT) RADIOLOGY REPORT [facility] Department of Radiology [address] [place] [address], [phone] Name: WES OLIVO : 67 Date of Service: 09/05/12 1056 Acct Number: [id number] Order Number: [id number] Location: [facility] Report Number: [id number] Service: REG REF/ Requesting Physician: Suresh Velazquez ([facility]) Category: ORTHOPEDIC RADIOLOGY [facility] Exam: HIP UNILAT 2 VIEWS Right Signs/Symptoms: [...] Approved Electronically By/Date: Vance Riggins 09/05/12 1226 [facility] Department of Radiology [address] [place] [address], [phone] [facility] RAD Anatomical Region Laterality Modality Other 09/05/2012 12:2 5 PM EDT Narrative 09/05/2012 12:26 PM EDT Reason for Study/History: Department of Radiology TEST(S) PROCESSED BY [facility] XRAY us Suresh Velazquez MD [facility] Final Result * (ABNORMAL) PROTHROMBIN TIME (07/02/2009 [...] EDT Reason for Study/History: TEST(S) PROCESSED BY [facility] XRAY Suresh Velazquez MD [facility] Final Result * UNSPECIFIED MAJOR PROCEDURE (06/28/2009 [...] 44 +12 cobalt chrome head,a size 8 Travis cementless stem with lateral neck. SURGEON: Suresh Velazquez MD. DATABASE MANAGEMENT SYSTEM SPECIALIST: GHAZALA Gates. INDICATIONS: The patient has not [...] quadratus femoris and the inferior capsule. A [place] bladewas then used to release the rotators [...] 5:42 P TT: 7:50 P Doc #: [id number] cc: Suresh Velazquez MD Suresh Velazquez MD [...] NP LABORATORY Final Result Performing Organization Address [facility] de Phone Number [facility] [address] [place] [address] * CULTURE, URINE (06/08/2009) URINE CULTURE CLEAN VOID SEE TEXT [facility] Comment: SOURCE: URINE NO GROWTH 06/08/2009 06/08/2009 5:3 4 PM EST Lexie Rust NP LABORATORY Final Result Performing Organization Address [facility] de Phone Number [facility] [address] [place] [address] * MRSA SCREEN, ANY SOURCE (06/08/2009) Result(s) SEE TEXT [facility] Comment: SOURCE: UNKNOWN NO METHICILLIN RESISTANT STAPHYLOCOCCUS AUREUS ISOLATED 06/08/2009 06/08/2009 5:3 4 PM EST Lexie Rust NP LABORATORY Final Result Performing Organization Address [facility] de Phone Number [facility] [address] [place] [address] * (ABNORMAL) CBC 5 PART DIFF (06/08/2009) [...] 5:3 4 PM EST us Lexie Rust [facility] REPRESENTATIVE LAB SAME DAY RESULT Final Re sult [facility] [address] [place] [address] * URINALYSIS, COMPLETE (DIP & MICRO) (06/08/2009) [...] 5:3 4 PM EST us Lexie Rust [facility] REPRESENTATIVE LAB SAME DAY RESULT Final Re sult [facility] [address] [place] [address] * XRAY HIPS BILATERAL MIN 2 VIEWS [...] (2 VWS) LT (04/23/2008 12:00 PM EST) [facility] RADIOLOGY REPORT Right knee, two views. Findings: [...] the right knee show TEST(S) PROCESSED BY [facility] XRAY Suresh Velazquez MD [facility] Final Result * KNEE (2 VWS) RT [...] of the left knee TEST(S) PROCESSED BY [facility] XRAY Suresh Velazquez MD [facility] Final Result Visit Diagnoses Diagnosis Start Date [...] total right knee replacement 11/13/2019 Care Teams Police Communications Operator Relationship Specialty Start Date End Date Paulo Schwarz [address] [place] [address] [address] [place], [place] [address] PCP - General 01/07/08
--- OUTSIDE RECORDS SUMMARY | 2025-01-10 15:18 | XMS_ITS | Encounter Summary ---
Author Organization [facility] Address [address] [place] [address] Care Team Providers Care Climate Change Risk Assessor Name Role Phone Paulo Schwarz Primary Care Provider [phone] Encounter Details Date Type Department Care Team ([facility] st Contact Info) Description 09/19/2012 Orders Only [facility] [address] [phone] Sruesh Velazquez MD [address] [place] [address] Social History Tobacco Use Types Packs/Day Years [...] thigh documented in this encounter Care Teams Climate Change Risk Assessor Relationship Specialty Start Date End Date Paulo Schwarz [address] [place] [address] [place] [address] PCP - General 01/07/08 documented as of this encounter
--- OUTSIDE RECORDS SUMMARY | 2025-01-10 15:18 | XMS_ITS | Encounter Summary ---
Author Organization [facility] Address [address] [place] [address] [place] [phone] Phone Care Team Providers Care Ent Consultant Name Role Phone Manuel Foy Primary Care Provider + Encounter Details Date Type Department Care Team (Late st Contact Info) Description 02/23/2024 Procedure Pass [facility] [address] [place] [address] Social History Tobacco Use Types Packs/Day Years [...] 1:31 PM Maria G Oconnell RN * [place] Suicide Severity Rating Scale (Screener/Recent Self-Report) Question [...] documented as of this encounter Care Teams Ent Consultant Relationship Specialty Start Date End Date Manuel Foy PA [facility] [place] [address] PCP - General Physician Field Appraiser 02/23/24 documented as of this encounter Additional Source Comments The information contained in this document represents components of the legal health record. It is not the complete legal health record.[facility]
[2025-01-10 15:22] LABS: Appearance Urine Clear; Glucose Urine UA Negative (Negative); PH 7.0 (5.0-9.0); Specific Gravity - Urine <= 1.005 (1.005-1.025)
[2025-01-10 15:28] LABS: Alanine Aminotransferase 13 U/L (0-40); Albumin Level 3.7 g/dL (3.5-5.0); Alkaline Phosphatase 82 U/L (39-117); Anion Gap 10 (12-20); Aspartate Amino Transferase 23 U/L (5-37); Blood Urea Nitrogen 14 mg/dL (9-16); Calcium 9.0 mg/dL (8.4-10.2); Carbon Dioxide 42 mmol/L (22-29); Chloride 94 mmol/L (96-108); Creatinine Clr Calc Pharmacy 152.1; Estimated Glomerular Filt Rate > 60; Potassium 4.6 mmol/L (3.3-5.1); Sodium 141 mmol/L (135-145); Total Protein 6.6 g/dL (6.5-8.0)
[2025-01-10 15:31] LABS: Troponin-I High Sensitivity 8.3 ng/L (<3.5-35.0)
--- NOTE | 2025-01-10 15:33 | PC.NURSE ---
Pt BIBA from SNF for increased pain/swelling to BLE. Pt is A/O x 3, endorsing pain in RLE. Redness and swelling noted in BLE and warm to touch. Scabbed abrasion noted to pt nose, on questioning pt reports falling frequently at SNF. Labs collected and sent, 18G to L AC. Pt placed on bedside monitor, O2 sat 90% on 3L O2. Per pt- wears 2L O2 at baseline and has hx COPD.
--- NOTE | 2025-01-10 16:18 | PC.NURSE ---
Pt noted to have low O2 sat at 68%, upon enter room pt was standing at side of stretcher attempting to use urinal with nasal cannula removed. O2 reapplied and pt assisted back to bed. O2 saturation returned to 90% after O2 applied. Patient educated on the importance of keeping O2 on, pt verbalized understanding.
--- NOTE | 2025-01-10 17:30 | ED.LOWEXIN ---
HPI - Extremity Injury (Lower) General Chief Complaint: Extremity Injury, Lower Stated Complaint: LEG EDEMA Time Seen by Provider: 01/10/25 17:19 History of Present Illness ED Provider: Dr. Teja Pacheco HPI Narrative: 59-year-old male with history of gastric bypass, tracheostomy now closed (for ANA when pt weighed 600 pounds), diverticulosis, COPD, cellulitis of BLEs with suspected PVD, substance use disorder, tobacoo dependence, who presents emergency department for evaluation of increased bilateral lower extremity swelling right greater than left and increased erythema. The patient states that he was sent to the emergency department because the nurses were concerned that he had increased redness to both lower extremities increased swelling of both lower extremities with the right leg being more swollen than the left. Patient denied pain in his lower extremities. He denied fever, chills, chest pain, shortness of breath, nausea, vomiting or diarrhea. He states that he has to wear oxygen continually and sometimes when he walks around he feels short of breath despite wearing his oxygen but this has unchanged. Patient states that he does smoke 3 cigarettes per day. The patient was admitted to [facility] from 10/24/2024 until 10/27/2024 with a fine diagnoses: Acute hypoxemic respiratory failure secondary to PNA / COPD with acute exacerbation improved with IV antibiotics, steroids, nebulizers. Discharged on 2 L of oxygen via nasal cannula Bilateral lower extremity cellulitis, chronic skin changes: Bilateral lower extremities-venous duplex negative for DVT, arterial duplex,No significant velocity-altering stenosis. Varicose veins of right lower extremity with inflammation: Related Data Home Medications ?Medication ?Instructions ?Recorded ?Confirmed trazodone 100 mg tablet 200 mg PO BEDTIME 09/15/24 12/08/24 clotrimazole-betamethasone 1 1 appl topical BID PRN Rash 10/25/24 12/08/24 %-0.05 % topical cream meloxicam 15 mg tablet 15 mg PO BEDTIME 10/25/24 12/08/24 pregabalin 75 mg capsule (Lyrica) 75 mg PO BID 10/25/24 12/08/24 bisacodyl 10 mg rectal suppository 10 mg [place] DAILY PRN 12/29/24 furosemide 40 mg tablet 80 mg PO DAILY 12/29/24 magnesium hydroxide 2,400 mg/10 mL 10 ml PO DAILY PRN 12/29/24 oral suspension (Milk Of Magnesia Concentrated) melatonin 5 mg capsule mg PO DAILY PRN 12/29/24 naloxone 4 mg/actuation nasal 4 mg intranasal Q2M PRN 12/29/24 spray (Narcan) prazosin 1 mg capsule 1 mg PO BEDTIME 12/29/24 tizanidine 2 mg tablet 2 mg PO BID 12/29/24 Previous Rx's ?Medication ?Instructions ?Recorded albuterol sulfate 90 mcg/actuation 2 puff inhalation RQ4H PRN 07/21/24 aerosol inhaler (Ventolin HFA) Shortness Of Breath/Wheezing 30 days #8.5 grams clonidine HCl 0.1 mg tablet 0.1 mg PO TID 90 days #270 tabs 07/21/24 hydroxyzine pamoate 50 mg capsule 50 mg PO TID PRN anxiety 90 days 07/21/24 #270 caps mirtazapine 45 mg tablet 45 mg PO BEDTIME 90 days #90 tabs 07/21/24 oxcarbazepine 150 mg tablet 150 mg PO BID 90 days #180 tabs 07/21/24 umeclidinium 62.5 mcg-vilanterol 1 ea inhalation DAILY 30 days #60 07/21/24 25 mcg/actuation powdr for ea inhalation (Anoro Ellipta) omeprazole 20 mg capsule,delayed 20 mg PO DAILY@0630 90 days #90 07/23/24 release caps baclofen 10 mg tablet 10 mg PO BID 30 days #60 tabs 07/27/24 ketoconazole 2 % shampoo 1 appl topical 3XW 4 weeks #120 mL 09/15/24 POWER SCOOTER #1 ea 09/16/24 duloxetine 30 mg capsule,delayed 30 mg PO DAILY 90 days #90 caps 09/17/24 release lidocaine 4 % topical patch 1 patch transdermal DAILY #1 ea 10/27/24 (Lidocaine Pain Relief) polymyxin B sulfate 10,000 1 drp ophthalmic (eye) QID 7 days 01/10/25 unit-trimethoprim 1 mg/mL eye drops #10 mL Allergies Allergy/AdvReac Type Severity Reaction Status Date / Time No Known Allergies Allergy Verified 01/10/25 14:21 Review of Systems Review of Systems: Yes all other systems are reviewed and are negative [facility] Past Medical History [facility] Narrative: Social history: The patient states he has been living at [facility] since being discharged from [facility] on 10/28/2024. Patient states he smokes 3 cigarettes per day. He denies alcohol use. Medical History Substance abuse Varicose veins of right lower extremity with inflammation Morbid (severe) obesity due to excess calories COPD (chronic obstructive pulmonary disease) Cocaine use disorder MDD (major depressive disorder) Homeless ANA (obstructive sleep apnea) Varicose veins of right lower extremity Peripheral vascular disease GERD (gastroesophageal reflux disease) History of pernicious anemia Hx of acute respiratory failure Edema Back pain Arthritis History of DVT of lower extremity Depression ANA treated with BiPAP Right-sided heart failure Surgical History History of incisional hernia repair Hx of esophagogastroduodenoscopy Hx of colonoscopy History of total right knee replacement S/P right knee arthroscopy Hx of tracheostomy Hx of total hip arthroplasty History of colostomy reversal History of colon resection H/O gastric bypass Family History Family History Father Displacement of central venous catheter (CVC) Mother Unknown family medical history Social History Social History Household Members: Other Household Members Other:: [facility] Housing: Other Housing Other:: [facility] Do you presently have visiting nurse or other home services: No Unable to assess alcohol history related to: Unknown Alcohol intake: former Year quit: 2024 Patient Tobacco Use Status: Current everyday Tobacco user Tobacco use type: Cigarette Cigarettes Per Day: 5 Years Smoked: 40 e-Cigarette/Vaping Use: Currently Using Second Hand Smoke Exposure: Yes Substance Use Type: Crack/Cocaine Advance Directives: No Advance Directives Information Provided: Yes service: No Sexual orientation: Straight/Heterosexual Cognitive needs: No Hearing needs: No Vision needs: Yes (Reading glasses) Physical Exam Vital Signs: Vital Signs: Last Vital Signs Temp 97.7 F 01/10/25 17:33 Pulse 72 01/10/25 19:51 Resp 15 01/10/25 19:51 BP 115/57 L 01/10/25 19:51 Pulse Ox 88 L 01/10/25 19:51 O2 Del Method Nasal Cannula 01/10/25 19:51 O2 Flow Rate 4 01/10/25 19:51 Oxygen Flow Rate 4 01/10/25 14:19 BMI result Body Mass Index 54.1 Vital signs were unremarkable. O2 saturation was 90-92% on 3 L of oxygen via nasal cannula Exam: General: Awake, alert in no distress, weight 171.1 kg with an elevated BMI of 41.1 kilograms/meters squared Head: Normocephalic, atraumatic EENT: PERRL, sclera and conjunctiva are normal, mouth with no erythema or exudates Neck: Supple, no adenopathy Lung: breath sounds symmetric, no wheezing, no rales and no rhonchi Chest: symmetric movement, nontender Heart: regular rate and rhythm, normal S1, S2 no murmurs or rubs Abdomen: soft, obese, non-tender, nondistended, normal bowel sounds Back: no vertebral tenderness, no CVAT Extremities: Bilateral symmetric appearing erythema to lower extremities, not warm to the touch, trace to 1+ pitting edema bilateral lower extremities right greater than left. No skin breakdown noted Neuro: Awake, alert, oriented, normal speech, cranial nerves 2-12 intact, moves all extremities symmetrically Psych: Pleasant, cooperative Photo: Today, 01/10/2025 Photo: 10/07/2024 Const: Limitations: physical limitations Medical Decision Making Medical Decision Making MDM Narrative: 59-year-old male with history of gastric bypass, tracheostomy now closed (for ANA when pt weighed 600 pounds), diverticulosis, COPD, cellulitis of BLEs with suspected PVD, substance use disorder, tobacoo dependence, who presents emergency department for evaluation of increased bilateral lower extremity swelling right greater than left and increased erythema. The patient states that he was sent to the emergency department because the nurses were concerned that he had increased redness to both lower extremities increased swelling of both lower extremities with the right leg being more swollen than the left. Patient denied pain in his lower extremities. He denied fever, chills, chest pain, shortness of breath, nausea, vomiting or diarrhea. He states that he has to wear oxygen continually and sometimes when he walks around he feels short of breath despite wearing his oxygen but this has unchanged. Patient states that he does smoke 3 cigarettes per day. Vital signs were normal except with O2 saturations ranging from 90-92% on 3 L of oxygen via nasal cannula. Patient does have trace to 1+ pitting edema in both lower extremities right greater than left. Patient has erythema to both lower extremities which are not warm to the touch. Compared to images in the chart from ED note dated 10/07/2024, today's erythema appears to be more consistent with venous stasis dermatitis. Differential diagnosis: ?Includes but is not limited to right lower extremity DVT, bilateral peripheral edema, cellulitis, venous stasis dermatitis, anemia, electrolyte abnormalities Course: 18:25 My interpretation patient's laboratory evaluation is as follows: WBC normal 6300. Bicarb elevated 42. High sensitive troponin I detectable but not elevated at 8.3. Urinalysis was negative for protein. Microscopic negative for bacteria. Venous pH revealed a pH of 7.46, pCO2 of 53 and a bicarb of 38 consistent with respiratory compensation. At this time, I do not think that the patient has cellulitis in his lower extremity in his redness is more consistent with chronic venous stasis dermatitis. I will obtain a right lower extremity ultrasound to make sure they in his not have a DVT. 22:07 Duplex ultrasound of the right lower extremity revealed no DVT. I did reexamine the patient in the lower extremities are still cool to the touch with no increased warmth over the erythema. At this time I do not think that the patient has cellulitis in his not require hospitalization or antibiotics. I did discuss this with the patient. The patient will be transferred back to his [facility] facility for further treatment. Differential Diagnosis Differential Diagnoses: The differential diagnosis associated with the presentation includes (See above) Admission/Observation Consideration of admission/observation: Escalation of care including admission/observation considered (Yes) Lab Data MDM Lab Attestation statement: I reviewed the patient's lab results. 01/10/25 15:03 01/10/25 15:03 Labs: Lab Results 01/10/25 01/10/25 01/10/25 Range/Units 15:03 15:09 15:10 WBC 6.3 (4.8-10.8) X10*3/uL RBC 4.77 (4.60-5.80) X10*6/uL Hgb 10.3 L (14.0-18.0) g/dl Hct 37.0 L (42.0-52.0) % MCV 77.6 L (80.0-98.0) fL MCH 21.6 L (27.0-33.0) pg MCHC 27.8 L (31.0-36.0) g/dl RDW 23.6 H (11.0-16.0) % Plt Count 250 (160-400) X10*3/uL MPV 9.7 (9.4-12.4) fL Immature Gran % (Auto) 0.5 H (0.0-0.4) % Neut % (Auto) 66.2 (45-73) % Lymph % (Auto) 18.6 L (20-40) % [place] % (Auto) 11.9 H (2-11) % Eos % (Auto) 2.2 (0-4) % Baso % (Auto) 0.6 (0-2) % Lymph # (Auto) 1.2 (1.2-4.9) X10*3/uL [place] # (Auto) 0.8 (0.1-1.2) X10*3/uL Eos # (Auto) 0.1 (0.0-0.4) X10*3/uL Baso # (Auto) 0.0 (0.0-0.2) X10*3/uL Abs Immat Gran (auto) 0.03 (0.00-0.03) X10*3/uL Absolute Neuts (auto) 4.2 (2.0-8.3) x10*3/uL Absolute Nucleated RBC 0.000 (0.0-0.012) X10*3/uL Nucleated RBC % (auto) 0.0 (0.0-0.2) /100WBC PT 11.4 (10.9-12.4) SEC INR 1.0 (0.9-1.1) VBG pH 7.46 H (7.32-7.43) VBG pCO2 53 mmHg VBG pO2 43 mmHg VBG HCO3 38 H (22-26) mmol/L VBG O2 Saturation 66.0 % VBG Base Excess 12.7 mmol/L Sodium 141 (135-145) mmol/L Potassium 4.6 (3.3-5.1) mmol/L Chloride 94 L (96-108) mmol/L Carbon Dioxide 42 H* D (22-29) mmol/L Anion Gap 10 L (12-20) BUN 14 (9-16) mg/dL Creatinine 0.84 (0.5-1.4) mg/dL Estim Creat Clear Calc 152.1 Estimated GFR > 60 Random Glucose 91 (60-115) mg/dL Lactic Acid 0.7 (0.5-2.0) mmol/L Calcium 9.0 (8.4-10.2) mg/dL Total Bilirubin 0.3 (0.0-1.0) mg/dL AST 23 (5-37) U/L ALT 13 (0-40) U/L Alkaline Phosphatase 82 (39-117) U/L Troponin I High Sens 8.3 (<3.5-35.0) ng/L Total Protein 6.6 (6.5-8.0) g/dL Albumin 3.7 (3.5-5.0) g/dL Urine Color Yellow Urine Appearance Clear Urine pH 7.0 (5.0-9.0) Ur Specific [place] <= 1.005 (1.005-1.025) Urine Protein Negative (Neg-Trace) mg/dL Urine Glucose (UA) Negative (Negative) mg/dL Urine Ketones Negative (Negative) mg/dL Urine Blood Negative (Negative) Urine Nitrite Negative (Negative) Ur Leukocyte Esterase Negative (Negative) Urine RBC 0-2 (0-2) /HPF Urine WBC 0-5 (0-5) /HPF Ur Squamous Epith Cells 0-2 (0-2) /HPF Urine Bacteria None Seen (None Seen) Hyaline Casts 0-2 (0-2) /LPF Independent Interpretation I performed an independent interpretation of an: EKG Interpretation: My independent interpretation patient's 12 EKG is as follows: Normal sinus rhythm with a rate of 75, normal AZ interval, QRS duration QTC interval, no ST segment elevation, no ST segment depression, no significant T-wave abnormalities, occasional PAC, no PVCs. Radiology Impression Discussion of test interpretation with radiology: I have reviewed the radiologist's reading. Radiologist Impression: US - US VENOUS DUPLEX LE - 10/25/24 07:51 EDT Findings: The visualized deep veins are fully compressible with normal Doppler color flow and spectral tracings. No popliteal cyst. IMPRESSION: 1. Negative for right lower extremity deep vein thrombosis. This document has been electronically signed by: Alejandro Rivas MD on External Record Review External record reviewed: Inpatient record and Outside ED record ([facility] notes) Chronic Conditions Patient?s care impacted by: Other (COPD) Discharge Plan Discharge Clinical Impression: Bilateral lower extremity edema, Chronic stasis dermatitis of right lower extremity, Chronic stasis dermatitis of left lower extremity Patient Disposition: Home, Self-Care Additional Instructions: Your white blood cell count, kidney function and liver function were normal. You were anemic but this was unchanged from your baseline. The duplex ultrasound of your right lower extremity did not reveal any blood clots which is reassuring. The redness to your lower extremities in his now warm to the touch and I believe that this has due to chronic venous stasis dermatitis in you do not need antibiotics at this time. Continue taking your medications as prescribed by your providers. Follow-up with your doctor in 2 days. Please return to the emergency department if your symptoms get worse or if you develop any symptoms that are concerning to you. Prescriptions: No Action omeprazole 20 mg capsule,delayed release(DR/EC) 20 mg PO DAILY@0630 90 Days Qty: 90 1RF (DME) POWER SCOOTER See Rx Instructions .Route .MEDSUPPLY Qty: 1 0RF Rx Instructions: As directed duloxetine 30 mg capsule,delayed release(DR/EC) 30 mg PO DAILY 90 Days Qty: 90 1RF polymyxin B sulf-trimethoprim 10,000 unit- 1 mg/mL drops 1 drp ophthalmic (eye) QID 7 Days Qty: 10 0RF meloxicam 15 mg tablet 15 mg PO BEDTIME clotrimazole-betamethasone 1-0.05 % cream 1 appl topical BID PRN (Reason: Rash) pregabalin [Lyrica] 75 mg capsule 75 mg PO BID lidocaine [Lidocaine Pain Relief] 4 % Adhesive Patch,Medicated 1 patch transdermal DAILY Qty: 1 0RF Protocol: Apply to: Apply to: affected area baclofen 10 mg tablet 10 mg PO BID 30 Days Qty: 60 3RF trazodone 100 mg tablet 200 mg PO BEDTIME ketoconazole 2 % shampoo 1 appl topical 3XW 28 Days Qty: 120 0RF clonidine HCl 0.1 mg tablet 0.1 mg PO TID 90 Days Qty: 270 1RF hydroxyzine pamoate 50 mg capsule 50 mg PO TID PRN (Reason: anxiety) 90 Days Qty: 270 1RF mirtazapine 45 mg tablet 45 mg PO BEDTIME 90 Days Qty: 90 1RF oxcarbazepine 150 mg tablet 150 mg PO BID 90 Days Qty: 180 1RF albuterol sulfate [Ventolin HFA] 90 mcg/actuation HFA aerosol inhaler 2 puff inhalation RQ4H PRN (Reason: Shortness Of Breath/Wheezing) 30 Days Qty: 8.5 3RF Anoro Ellipta 62.5-25 mcg/actuation blister with device 1 ea inhalation DAILY 30 Days Qty: 60 3RF tizanidine 2 mg tablet 2 mg PO BID furosemide 40 mg tablet 80 mg PO DAILY bisacodyl 10 mg suppository 10 mg [place] DAILY PRN prazosin 1 mg capsule 1 mg PO BEDTIME magnesium hydroxide [Milk Of Magnesia Concentrated] 2,400 mg/10 mL suspension 10 ml PO DAILY PRN melatonin 5 mg capsule PO DAILY PRN naloxone [Narcan] 4 mg/actuation spray,non-aerosol 4 mg intranasal Q2M PRN Rx Instructions: spray 1 dose into ONE nostril; alternate nostrils w each dose until help arrives Print Language: Frisian
[2025-01-10 17:33] VITALS: BP 122/67; PULSE 69; RESP 17; TEMP 36.5; O2SAT 92
[2025-01-10 19:51] VITALS: BP 115/57; PULSE 72; RESP 15; O2SAT 88
[2025-01-10 22:05] VITALS: BP 121/63; PULSE 65; RESP 17; TEMP 36.5; O2SAT 90
[2025-01-10 23:46] VITALS: BP 121/63; PULSE 65; RESP 17; TEMP 36.5; O2SAT 90
== END 2025-01-10 23:47 | disposition home or self-care (01) ==
PROVIDERS: Emergency Provider Emergency Medicine Emergency Medical Services; PCP Physician Assistant
DX: R60.0 Localized edema (principal); I87.2 Venous insufficiency (chronic) (peripheral); R94.31 Abnormal electrocardiogram [ECG] [EKG]; F17.210 Nicotine dependence, cigarettes, uncomplicated; Z79.899 Other long term (current) drug therapy
CPT/HCPCS: 36415; 80053; 81001; 82803; 83605; 84484; 85025; 85610; 87040; 93005; 93971; 99284

== ENCOUNTER → 2025-01-10 14:23 | Outpatient (BNV) | payer MEDICARE, MEDICAID, SELFPAY | PROVIDERS: Emergency Provider Emergency Medicine Emergency Medical Services; PCP Physician Assistant; Visit Provider Internal Medicine Cardiovascular Disease | DX: I49.1 Atrial premature depolarization (principal) | CPT/HCPCS: 93010 ==

== ENCOUNTER → 2025-01-10 17:55 | Outpatient (BNV) | payer MEDICARE, MEDICAID, SELFPAY | PROVIDERS: Emergency Provider Emergency Medicine Emergency Medical Services; PCP Physician Assistant; Visit Provider Radiology Diagnostic Radiology | DX: R22.41 Localized swelling, mass and lump, right lower limb (principal); R21 Rash and other nonspecific skin eruption | CPT/HCPCS: 93971 ==

== ENCOUNTER 2025-01-14 22:13 | Inpatient (IN) | payer MEDICARE, MEDICAID, SELFPAY ==
--- OUTSIDE RECORDS SUMMARY | 2024-09-24 06:00 | XMS_ITS ---
Author Organization [facility] Address [address] [place] [phone] Care Team Providers Care Senior Java Web Application Developer Name Role Phone [facility] Primary Care Provider Josiane Mohr Unavailable Edda Granado Unavailable Encounters Encounter Location Date Provider Diagnosis [facility] [address] [place] [phone] 09/24/2024 Edda Granado Plan Of Treatment No Information Progress Notes * OLIVOChuy FernandezDOB:1965 (59 yo M)Acc No.[id number]:09/24/2024 Case Management Patient: Chuy VILLAREAL Provider: Ayaan Granado :1965 A ge:58 Y S ex:Male Date:09/24/2024 Address:[address] [place], [place] [phone] Pcp:[facility] Subjective: * Chief Complaints: * * Medical History: Objective: Assessment: Plan: * Treatment: * Images: Billing Information: * Visit Code: * Procedure Codes: Care Plan Details* * Electronic signature of Anthony Granado on 01/14/2025 at 10:49 PM EDT Sign off status: Pending * Provider: Ayaan Granado Date: 0 09/24/2024 Generated for Nuviai ng/Faxing/eTransmitting on: 1 10:49 PM EDT
--- OUTSIDE RECORDS SUMMARY | 2024-10-29 06:20 | XMS_ITS ---
Author Organization [facility] Address [address] [place] [phone] Care Team Providers Care Wood Stainer Name Role Phone [facility] Primary Care Provider Josiane Mohr Unavailable Edda Granado Unavailable [phone] Encounters Encounter Location Date Provider Diagnosis [facility] [address] [place] [phone] 10/29/2024 Edda Granado Plan Of Treatment No Information Progress Notes * OLIVOChuy FernandezDOB:1965 (59 yo M)Acc No.[id number]:10/29/2024 Case Management Patient: Chuy VILLAREAL Provider: Ayaan Granado :1965 A ge:58 Y S ex:Male Date:10/29/2024 Address:[address] [place], [place] [phone] Pcp:[facility] Subjective: * Chief Complaints: * * Medical History: Objective: Assessment: Plan: * Treatment: * Images: Billing Information: * Visit Code: * Procedure Codes: Care Plan Details* * Electronic signature of Anthony Granado on 01/14/2025 at 10:49 PM EDT Sign off status: Pending * Provider: Ayaan Granado Date: 0 10/29/2024 Generated for Nuviai ng/Faxing/eTransmitting on: 1 10:49 PM EDT
--- NOTE | ~2025-01-14 | XR_ITS ---
CLINICAL HISTORY: hypoxia 1 view chest x-ray Comparison: CR - XR CHEST 2V - 10/24/24 16:55 EDT Findings: Central vascular prominence with diffuse interstitial/patchy opacities, right worse than left. No significant pleural effusion or pneumothorax. Left basilar atelectasis. Similar prominent/enlarged cardiac silhouette. No acute fracture. IMPRESSION: Pulmonary edema versus pneumonia. This document has been electronically signed by: Preston Kincaid MD on 01/14/2025 23:38:16
--- NOTE | ~2025-01-14 | XR_ITS ---
CLINICAL HISTORY: OGT placement 1 view chest x-ray Comparison: CR/SR - XR CHEST 1 VIEW - 01/15/25 12:26 EDT Findings: There are airspace opacities within the bilateral lungs, [id number], with improvement. Likely right pleural effusion. The orogastric tube is within the proximal body of the stomach. The endotracheal tube is 5 cm above the ruchi. The heart is enlarged. No acute fracture. IMPRESSION: 1. The orogastric tube is within the proximal body of the stomach. The endotracheal tube is 5 cm above the ruchi. 2. Bilateral lung infiltrates, [id number]-left, with improvement. 3. Likely right pleural effusion. This document has been electronically signed by: Cathryn Koch MD on 01/16/2025 18:35:56
--- NOTE | ~2025-01-14 | XR_ITS ---
CLINICAL HISTORY: constipation 1 view abdomen Comparison: CR - XR CHEST 1V - 01/25/25 21:39 EDT Findings: Enteric sump tube has tip projected over the mid gastric body. Air-filled loops of dilated bowel are seen within the lower abdomen and pelvis measuring up to 7.4 cm. This is likely colon. No definitive dilated small bowel. Extensive areas of consolidation are again seen within the lungs. IMPRESSION: 1. Enteric sump tube as above. 2. Bowel dilation as above. This can be seen with ileus or obstruction. 3. Extensive bilateral lung consolidation as seen on the patient's chest x-ray from 1 day prior. This document has been electronically signed by: Sergey Winston MD on 01/26/2025 02:58:15
--- NOTE | ~2025-01-14 | XR_ITS ---
CLINICAL HISTORY: OGT placement 1 view chest x-ray Comparison: CR - XR CHEST 1V - 01/16/25 16:41 EDT Findings: Endotracheal tube with tip 6 cm proximal to the ruchi. Enteric tube extending below the diaphragm and tip was not imaged. Heart size is top-normal. Somewhat low lung volumes with interval improvement of right lung infiltrates. Interstitial thickening also improved. Suspect small pleural effusions, stable. No significant pneumothorax No acute fracture. IMPRESSION: 1. Improved infiltrates and interstitial thickening. 2. Small bilateral pleural effusions. 3. Endotracheal tube tip 6 cm proximal to the ruchi. Enteric tube extending below the diaphragm and the tip was not imaged. This document has been electronically signed by: Whit Moreno MD on 01/19/2025 21:18:34
--- NOTE | ~2025-01-14 | CT_ITS ---
CLINICAL HISTORY: altered mental CT head without contrast Comparison: CT/REG/SR - HEAD HEAD_WITHOUT (ADULT) - 01/15/25 01:47 EDT Findings: No intra-axial mass, midline shift, hydrocephalus, or acute hemorrhage. No significant atrophy-like change or white matter disease. There is no sinus or mastoid fluid. The orbits are within normal limits. No skull fracture. IMPRESSION: 1. No acute intracranial findings. This document has been electronically signed by: Vance Cedillo MD, PHD on 01/15/2025 03:13:30
--- NOTE | ~2025-01-14 | XR_ITS ---
EXAMINATION: XR CHEST 1 VIEW HISTORY: Confirm OGT Placement COMPARISON: Comparison is made with the prior examination dated 01/26/2025. FINDINGS: A single AP portable view of the chest performed at 10:28 AM is submitted. Endotracheal tube is unchanged in position. An orogastric tube is noted with its tip below the diaphragm. Again seen are extensive bilateral airspace opacities compatible with diffuse pneumonia, pulmonary edema, or ARDS. There is no pneumothorax. No definite pleural effusion. The heart is normal in size. The bones are intact. XR/XR chest 1V IMPRESSION: 1. Lines and tubes in place as described. 2. Diffuse bilateral airspace opacities, compatible with diffuse pneumonia, pulmonary edema, or ARDS without change. Electronically signed by: Jose Reese MD 01/28/2025 10:51 AM EDT
--- NOTE | ~2025-01-14 | XR_ITS ---
CLINICAL HISTORY: Worsening hypoxia 1 view chest x-ray Comparison: CT/REG/SR - CT CHEST ANGIOGRAPHY WITH IV CONTRAST - 01/21/25 10:55 EDT CR - XR CHEST 1V - 01/19/25 20:31 EDT Findings: Diffuse bilateral airspace opacities, new from prior. Small bilateral pleural effusions. No pneumothorax. Endotracheal tube tip is 5.6 cm above the ruchi. Distal gastric tube is below the left hemidiaphragm, tip is outside the field of view. Cardiomediastinal silhouette is stable. IMPRESSION: 1. New diffuse bilateral airspace opacities. Differential considerations include pulmonary edema, diffuse alveolar damage or pneumonia. 2. Small bilateral pleural effusions. 3. Endotracheal tube tip 5.6 cm above the ruchi. This document has been electronically signed by: Jay Lux MD on 01/25/2025 22:41:38
--- NOTE | ~2025-01-14 | US_ITS ---
CLINICAL HISTORY: edema L > r but r o both --- Additional Notes or Special Instructions: pt has hx of previous DVT Venous duplex ultrasound bilateral lower extremity Comparison: US - US VENOUS DUPLEX LE RT - 01/10/25 18:31 EDT US - US VENOUS DUPLEX LE BI - 10/25/24 07:51 EDT Findings: The visualized deep veins are fully compressible with normal Doppler color flow and spectral tracings. No popliteal cyst. IMPRESSION: 1. Negative for bilateral lower extremity deep vein thrombosis. This document has been electronically signed by: Cathryn Koch MD on 01/15/2025 18:20:28
--- NOTE | ~2025-01-14 | CT_ITS ---
CLINICAL HISTORY: hypoxia CT chest without contrast Comparison: CT/REG/SR - VASCULAR PE_PROTOCOL (ADULT) - 10/24/24 18:00 EDT Findings: Respiratory motion artifact degrades the images limiting interpretation. Cardiac silhouette is mildly enlarged. The visualized thyroid and mediastinum are unremarkable. Bilateral pulmonary infiltrates or consolidations, [id number]-left. The upper abdomen is unremarkable. No acute osseous abnormalities identified. IMPRESSION: Bilateral pulmonary consolidation or infiltrates, [id number]-left. This document has been electronically signed by: Vance Cedillo MD, PHD on 01/15/2025 03:36:36
--- NOTE | ~2025-01-14 | CT_ITS ---
EXAMINATION: CT ANGIOGRAM CHEST CLINICAL INFORMATION: Persistent Hypoxia COMPARISON: X-ray from 2 days earlier TECHNIQUE: Multiple axial images were obtained through the chest after the administration of 85 mL of Omnipaque 350 intravenous contrast. Extensive vascular post-processing including two-dimensional and three-dimensional reformatted images were created and reviewed on an independent workstation. This CT examination was performed using dose optimization techniques as appropriate, variously including the following: *Automated exposure control *Adjustment of mA and/or kV according to patient size (this includes techniques or standardized protocols for targeted exams where dose is matched to indication/reason for exam; i.e. extremities or head) *Use of iterative reconstruction technique FINDINGS: QUALITY OF STUDY/CONTRAST BOLUS: Adequate but suboptimal PULMONARY ARTERIES: No filling defects are identified in the pulmonary arteries. There is heterogeneous enhancement secondary and tertiary branches due to motion, beam hardening artifact, and bolus timing. THORACIC AORTA: There is no aneurysm or dissection. There is mild atherosclerotic calcification. LUNGS AND PLEURA: Airspace opacities are present in the bilateral lower lobes, right greater than left, with air bronchograms demonstrating some areas enhance and other areas that are nonenhancing consistent with a combination of atelectasis and pneumonia. There are multiple areas of air-trapping in the mid and upper lungs. There is no pleural effusion. MEDIASTINUM: ET tube is in the midthoracic trachea. There is an NG tube terminating in the stomach. CORONARY ARTERY CALCIFICATION: Present CHEST WALL/AXILLA: No axillary or internal mammary lymphadenopathy. UPPER ABDOMEN: Unremarkable BONES: Mild degenerative changes are evident in the thoracic spine. CT/CT angio chest PE protocol IMPRESSION: No filling defects are present to suggest pulmonary emboli. Bibasilar atelectasis and pneumonia. Fleischner guidelines were followed. Electronically signed by: Quentin Seymour MD 01/21/2025 11:58 AM EDT
--- NOTE | ~2025-01-14 | XR_ITS ---
CLINICAL HISTORY: CHIVO 1 view chest x-ray Comparison: CR - XR CHEST 1V - 01/14/25 22:47 EDT Findings: Diffuse bilateral interstitial and airspace opacities are present, increased since prior exam. There is a small right pleural effusion. Endotracheal tube tip is 3.2 cm above the level of the ruchi. The heart is enlarged in size. No acute fracture. IMPRESSION: 1. Endotracheal tube tip is 3.2 cm above the level ruchi. 2. Cardiomegaly with diffuse bilateral interstitial and airspace opacities, increased since prior exam. 3. Small right pleural effusion. This document has been electronically signed by: Connor Calix on 01/15/2025 06:14:24
--- NOTE | ~2025-01-14 | XR_ITS ---
EXAMINATION: XR CHEST CLINICAL INFORMATION: OG tube placement verification COMPARISON: X-ray performed 8 hours earlier TECHNIQUE: Frontal view of the chest was obtained. FINDINGS: ET tube is in the midthoracic trachea. OG tube has been placed. The tip is in the region of the stomach fundus. The side port is in the distal esophagus near the hiatus. Tubing loops over the region of the neck. Diffuse airspace opacities in the right greater than left lungs have decreased since the prior. There are likely small bilateral pleural effusions. Cardiac silhouette appears enlarged. XR/XR chest 1V IMPRESSION: Interval placement of an OG tube. Side port of the tubing is at the level of the diaphragmatic hiatus in the distal esophagus. Tip of the tube is in the gastric fundus. Tubing is looped over the neck. It is uncertain if this is extrinsic to the neck or within the hypopharynx. Improved diffuse airspace of the disease in the right greater than left lungs likely related to pulmonary edema. ET tube tip is in the midthoracic trachea. Electronically signed by: Quentin Seymour MD 01/15/2025 12:46 PM EDT
--- NOTE | ~2025-01-14 | XR_ITS ---
EXAMINATION: XR CHEST CLINICAL INFORMATION: increased FiO2 requirements COMPARISON: 01/15/2025. TECHNIQUE: Frontal view of the chest was obtained. FINDINGS: Endotracheal tube is stable in position approximately 4.5 cm above the ruchi. Oral gastric tube is placed with the tip in the stomach however the sidehole is supradiaphragmatic. In addition, the proximal aspect may be coiled in the hypopharynx. This device should be advanced. Cardiac size is mildly enlarged. Vascular engorgement of the hilar regions. Mediastinal contours are stable. Lungs demonstrate mildly improved interstitial and alveolar pulmonary edema. There are persistent small layering effusions right greater than left, with underlying passive atelectasis. There is no pneumothorax. No focal osseous or soft tissue abnormality. XR/XR chest 1V IMPRESSION: 1. NG tube should be advanced as detailed above. Superior aspect is questionably coiled within the hypopharynx. Endotracheal tube is in good position. 2. Improving but persistent alveolar and interstitial pulmonary edema. Bilateral small pleural effusions with bibasilar passive atelectasis persist. Electronically signed by: Mynor Randall MD 01/19/2025 04:24 PM EDT
--- NOTE | ~2025-01-14 | XR_ITS ---
EXAMINATION: XR CHEST CLINICAL INFORMATION: OG placement confirmation COMPARISON: Chest 01/25/2025 TECHNIQUE: Frontal view of the chest was obtained. FINDINGS: Bilateral diffuse airspace opacities with slight consolidative pattern in both upper lungs dependent segments likely pneumonia. Heart size and the pulmonary vascularity is normal. Endotracheal tube is 5.6 cm above the ruchi. Enteric tube tip is below diaphragm. No gross bony abnormality seen. XR/XR chest 1V IMPRESSION: Bilateral diffuse gaseous opacities and slightly consolidative pattern in both upper lungs and segments are stable. Lines and catheters are stable. Electronically signed by: Carl Monroe MD 01/26/2025 12:17 PM EDT
--- NOTE | 2025-01-14 22:19 | ECG_ITS ---
Test Reason : DYSPNEA Blood Pressure : */* mmHG Vent. Rate : 69 BPM Atrial Rate : 69 BPM P-R Int : 166 ms QRS Dur : 98 ms QT Int : 410 ms P-R-T Axes : 49 17 4 degrees QTcB Int : 439 ms Sinus rhythm with occasional Premature ventricular complexes Possible Left atrial enlargement Borderline ECG When compared with ECG of 10-Jan-2025 14:39, Premature ventricular complexes are now Present Referred By: Rj Epstein Electronically Signed By: LAILA AMEZCUA
[2025-01-14 22:20] VITALS: BP 129/63; BP 148/96; PULSE 78; PULSE 92; RESP 17; TEMP 36.2; O2SAT 65; O2SAT 85; BMI 48.4
--- OUTSIDE RECORDS SUMMARY | 2025-01-14 22:49 | XMS_ITS | Patient Health Record ---
Author Organization [facility] Address [address] [place] [address] Care Team Providers Care Curator Name Role Phone Karishma(inactive) Paulo KITCHEN Primary [...] Problem Status W/U Status Risk Notes Problem 35316062 Rectal bleeding (K62.5) Active confirmed Problem [id number] Jordan's esophagus without dysplasia (K22.70) Active confirmed Plan Of Treatment Future Test Test Name Order Date UPPER GI ENDOSCOPY 06/24/2015 COLONOSCOPY 06/24/2015 Insurance Providers Payer Name Payer Address Payer Phone Subscriber Number Group Number Insured Name Patient Relationship to Insured Coverage Start Date Coverage End Date MEDICARE OF [place] [address] [place] [id number] WES OLIVO Self - patient is the insured MEDICAID OF [facility] [address] [place] [phone] [id number] WES OLIVO Self - patient is the insured Medical (General) History Medical History History ICD Code Jordan's esophagus right knee arthritis Denies LA,DM,CVA,Lung disease,renal dise ase Surgical History Surgery Date(Month/Year) gastric bypass hernia repair left hip replacement right hip replacement trachiotomy colostomy
--- OUTSIDE RECORDS SUMMARY | 2025-01-14 22:49 | XMS_ITS | Encounter Summary ---
Author Organization [facility] Address [address] [place] [address] [place] [phone] Phone Care Team Providers Care Auto Washer Name Role Phone Manuel Foy Primary Care Provider + Encounter Details Date Type Department Care Team (Late st Contact Info) Description 02/28/2024 Procedure Pass [facility] [address] [place] [address] Social History Tobacco Use Types Packs/Day Years [...] documented as of this encounter Care Teams Auto Washer Relationship Specialty Start Date End Date Manuel Foy PA [address] [place] [id number] PCP - General Physician Electroencephalographic Technician 02/23/24 documented as of this encounter Additional Source Comments The information contained in this document represents components of the legal health record. It is not the complete legal health record.[facility]
--- OUTSIDE RECORDS SUMMARY | 2025-01-14 22:49 | XMS_ITS | Data Portability ---
Author Organization [facility], Main Office Address [address] [facility] [place] [address] Care Team Providers Care Manager Mac Name Role Phone JACOBY ALARCON - 2ND FLOOR OTHER BERTHA ALEMAN Primary Care Provider Assessment No assessment recorded. Plan of Treatment [...] By Organization Details Last Modified Time 10/29/2024 115304 Quitting Tobacco : Care Instructions [email or web address] Not available 10/29/2024 13:27:01 11/03/2024 [id number] Quitting Tobacco : Care Instructions [email or web address] Not available 11/03/2024 15:37:02 Reason for Referral None Reported. Problems Name Problem SNOMED Code Status Onset Date Resolution Date Notes Provider Name and Address Organization Details Recorded Time Pneumonia 441891872 Active 2024 LUIS MANUEL MEHTA NP [address] [facility], [address], [place], [address], [facility] 5 14:25:05 Acute exacerbation of chronic obstructive pulmonary disease 323987308 Active 2024 LUIS MANUEL MEHTA NP [address] [facility], [address], [place], [address], [facility] 5 14:25:10 Cellulitis of lower leg 047135977 Active 2024 LUIS MANUEL MEHTA NP [address] [facility], [address], [place], [address], [facility] 5 14:25:12 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 033535380 Active 2024 LUIS MANUEL MEHTA NP [address], [address], [place], [address], [facility] 5 14:25:13 Obstructive sleep apnea syndrome 40811886 Active 2024 LUIS MANUEL MEHTA NP [address], [address], [place], [address], [facility] 5 14:25:15 Asthenia 30105735 Active 2024 LUIS MANUEL MEHTA NP [address], [address], [place], [address], [facility] 5 14:25:17 Peripheral vascular disease 350286342 Active 2024 LUIS MANUEL MEHTA NP [address], [address], [place], [address], [facility] 5 14:25:21 Morbid obesity 904951112 Active 2024 LUIS MANUEL MEHTA NP [address], [address], [place], [address], [facility] 5 14:25:23 Cocaine use disorder Active 2024 LUIS MANUEL MEHTA NP [address], [address], [place], [address], [facility] 5 14:25:26 Major depressive disorder 993992404 Active 2024 LUIS MANUEL MEHTA NP [address], [address], [place], [address], [facility] 5 14:25:27 Chronic back pain 806677026 Active 2024 LUIS MANUEL MEHTA NP [address], [address], [place], [address], [facility] 5 14:25:31 Sheltered homelessness Active 2024 LUIS MANUEL MEHTA NP [address], [address], [place], [address], [facility] 5 14:25:35 Tobacco user 276429003 Active 2024 LUIS MANUEL MEHTA NP [address], [address], [place], [address], [facility] 5 14:25:37 Gastroesophage al reflux disease without esophagitis 563712210 Active 2024 LUIS MANUEL MEHTA NP [address], [address], [place], [address], [facility] 5 14:25:40 Edema of lower extremity 514354155 Active 2024 LUIS MANUEL MEHTA NP [address], [address], [place], [address], [facility] 5 14:25:42 Generalized arthritis 153984058 Active 2024 LUIS MANUEL MEHTA NP [address], [address], [place], [address], [facility] 5 14:25:44 Chronic right-sided heart failure 92926011 Active 2024 LUIS MANUEL MEHTA NP [address], [place], [address], [facility] 5 14:25:46 History of anemia 708559749 Active 2024 LUIS MANUEL MEHTA NP [address], [place], [address], [facility] 5 14:25:48 History of deep vein thrombosis 439251394 Active 2024 LUIS MANUEL MEHTA NP [address] [facility], [address], [place], [address], [facility] 5 14:25:51 Problem Notes None recorded. Medical Equipment None Reported. Allergies Allergen ID Allergen Name Allergen Category Reaction Reaction Severity Criticality Documentation Date Start Date Code Code System Note Provider Name and Address Organization Details Recorded Time 94190 oxycodone medicatio n Not available Not available Not available 10/29/2024 7804 RxNorm GI upset LUIS MANUEL MEHTA NP [address], [address], [place], [address], [facility] 5 12:21:54 Medications Name Sig Start Date [...] 115/66 mm[Hg] LUIS MANUEL MEHTA NP [address] [facility], [facility] [address], [place], [address], [facility] 5 12:03:29 Date Recorded Systolic And Diastolic Provider Name and Address Organization Details Last Updated DateTime 10/30/2024 115/66 mm[Hg] Stefano Rehman MD [address] [facility], [facility] [address], [place], [address], [facility] 10/30/2024 12:04:22 Date Recorded Heart rate Respiratory rate Body temperature Oxygen saturation Oxygen saturation in Arterial blood by Pulse oximetry Systolic And Diastolic Provider Name and Address Organization Details Last Updated DateTime 5 94 /min 18 /min 97.3 [degF] 93 % 93 % 168/97 mm[Hg] LUIS MANUEL MEHTA NP [address] [place] [address], [place], [address], [facility] 5 15:11:10 Social History Question Answer Notes LastModified by Organizat ion Details LastModified Time Tobacco Smoking Status Current Every Day Smoker LUIS MANUEL MEHTA NP [address] [place] [address], [place], [address], [facility] 10/29/2024 12:25:34 What Is Your Code Status? Full Code [email or web address] Information not available 10/29/2024 Where Do You Live? Other [address], Previously Homeless. Information not available 10/29/2024 What Was The Date Of Your Most Recent Tobacco Screening? 10/29/2024 [email or web address] Information not available 10/29/2024 Do You Have An Out Of Hospital DNR? Yes [email or web address] Information not available 10/29/2024 How Much Tobacco Do You Smoke? 0.25 PPD Information not available 10/29/2024 Sex: Unknown Functional Status Question Answer Note LastModified by Organizat ion Details LastModified Time Do you use any illicit or recreational drugs? No cocaine abuse, sober since 05/2024 [email or web address] Information not available 10/29/2024 Do you or have you ever used any other forms of tobacco or nicotine? No [email or web address] Information not available 10/29/2024 What is your level of alcohol consumption? None prior use, sober since 05/2024 [email or web address] Information not available 10/29/2024 Mental Status None recorded. Family History Nothing Reported Notes:both parents , mom unknown, dad displacement of CVC. Medical History No medical history recorded. Past Encounters Encounter ID Performer Location Encounter Start Date Encounter Closed Date Diagnosis/Indication Diagnosis SNOMED-CT Code Diagnosis ICD10 Code Diagnosis IMO Codes Diagnosis Note [id number] LUIS MANUEL MEHTA NP [address] [address] 10/29/2024 12:02:37 11/05/2024 13:19:50 Pneumonia 990475671 J18.9 0778751267 Treated with nebs, O2, steroids, and antibiotic s at [facility] with improvemen t in condition. Complicate d by COPD exac. and ANA.Comple te doxy 100 mg bid and ceftin 500 mg bid x 10 daysAdd probiotic x 10 daysContin ue prednisone taper.Karolina ins on O2 2L continuous .Continue anoro elipta, prn albuterolM onitor resp status, sats, VS, labs Acute exac erbation of chronic obstructive pulmonary disease 009545356 J44.1 074349 Complicate d by PNA and OSAContinu e meds/O2/PO C as aboveMonit or resp. sx. Morbid obesity 518994299 E66.01 56941 s/p gastic bypass.Enc ourage diet compliance and exercise Asthenia 26600011 R53.1 58266 72259 PT OT eval and tx.Goal is to return to [address] Cellulitis of lower leg 208961771 L03.116 L03.760 2806204 Continue ceftin 500 mg bid and doxy 100 mg bid x 10 daysAdd probioticM onitor VS, labs, sx.Needs follow up with Vasc. Dr. Jean Baptiste re: varicositi es - update with concerns Varicose v ein of lower limb with phlebitis 271816813 I83.11 6505799 As noted in hosp.Seen by Dr. Jean Baptiste, instructed to complete antibiotic s and follow up in office next week, ito r Cocaine use disorder 804 8385487 F14.10 26747902 Sober since 5Curr ently living in [address].Abst inence encouraged , emotional support provided. Major depr essive disorder 325178913 F32.9 7487583806 With anxiety as wellContin ue home meds:dulox etine 30 mg qdtrazodon e 200 mg q hshydroxyz ine 50 mg tid prnremeron 45 mg q hsoxcarbaz apine 150 mg bid Due to nightmares , will add prazosin 1 mg q hs, monitor effect, adjust as needed. Pt. agreeable to trying. Psych eval prnMonitor mood, behaviors Sheltered homelessness [id number] 54486 Z59.01 3534937334 Currently living in a [address], previously homeless. Obstructiv e sleep apnea syndrome 70762486 G47.33 2044432 Just finished sleep study.CPAP recommende d, but currently on continuous O2 2LNeeds follow up with Dr. Sylvester in regards to CPAP - has appt. ito r resp. status Peripheral vascular disease 022765127 I73.9 74280 SuspectedC urrently treating for cellulitis and has follow up with Vasc. Dr. Jean Baptiste in regards to varicose vein inflammati on, appt. ito r Gastroesop hageal reflux disease without esophagitis 034521876 K21.9 929796 Continue omeprazole 20 mg qdMonitor GI sx. History of anemia 915107 002 Z86.2 86490681 Trend CBCs Edema of l ower extremity 281781934 R60.0 21470 Continue lasix 40 mg qdElevate legs when ableFollow ing up with Dr. Jean Baptiste to address bushing and broach operator y concernsMo nitorTrend VS, wts, labs, swelling Chronic back pain 666335 002 M54.9 G89.29 93060992 Continue home meds:dulox etine 30 mg qdlyrica 75 mg bidibuprof en 600 mg tid prnmeloxic am 15 mg q hsbaclofen 10 mg bidMonitor Generalized arthritis 20 9547643 M19.90 87260197 s/p B THRs and R TKRalso with chronic back painmeds as abovePT OT eval and tx. History of deep vein thrombosis 667436394 Z86.[address] [facility] neg for DVTNot on AC at this time.Encou rage mobility/a ctivity, monitor Chronic ri ght-sided heart failure 51460467 I50.812 471967 Continue lasix 40 mg qdMonitor CP status. s/s decompensa tion. Tobacco user 574632777 F 17.200 36163 Smokes about 5 cigarettes per day.Declin es nicoderm patchSmoki ng cessation discussedM onitor [id number] Stefano Rehman MD [address] [address] 10/30/2024 12:03:48 11/05/2024 13:36:41 Pneumonia 571036599 J18.9 3371005193 respirator y failure secondary to pneumonia and copdcomple te abx coursemoni tor respirator y status and need to repeat imaging Acute exac erbation of chronic obstructive pulmonary disease 847583845 J44.1 987538 see HPIcontinu e prednisone tapermonit or respirator y status and need to extend Cellulitis of lower leg 876802307 L03.116 L03.321 7480791 on above abx courseto f/u with vascular or evaluation with known varicose veins Obstructiv e sleep apnea syndrome 55585970 G47.33 4624493 currently on O2 by DE as aboveto f/u for CPAP recs with pulmonary Asthenia 57416965 R53.1 40240 PT OT eval and treatmonit or level of need with patient goal to return to half-way house Morbid obesity 447854848 E66.01 47862 hx morbid obesity s/p gastric bypassdiet ksenia to follow Cocaine use disorder 045 4188376 F14.10 79958587 added to PMHwas living in half-way house Chronic back pain 585110 002 G89.29 M54.89 70596504 continue out patient medication savoid narcotic medication sphysiatry eval prn Sheltered homelessness 5180370829 06295 Z59.01 0173816681 was in half-way [facility] essness may be barrier to dischargeS W to be involved Tobacco user 334586985 F 17.200 16334 with above copd exacerbati onencourag e quittingst ill going out to smoke 3+ cigarettes per dayrefuses replacemen t Gastroesop hageal reflux disease without esophagitis 710345045 K21.9 625405 omeprazole 20 mg qdmonitor sx relief Chronic ri ght-sided heart failure 60481561 I50.812 969509 lasix 40 mg qdmonitor respirator y and fluid status [id number] [facility] [address] 11/03/2024 15:09:58 11/05/2024 14:26:28 Pneumonia 265439148 J18.9 3602696270 Treated with nebs, O2, steroids, and antibiotic s at [facility] with improvemen t in condition. Complicate d [...] exac erbation of chronic obstructive pulmonary disease 285122623 J44.1 722137 Complicate d by PNA and OSAContinu e meds/O2/PO C as aboveMonit or resp. sx., currently improved.F ollow up with Pulm 11/04 Cellulitis of lower leg 184987983 L03.116 L03.626 6729129 Continue ceftin 500 mg bid and doxy 100 mg bid x 10 days as well as probioticM onitor VS, labs, sx.[facility] re: varicositi es 11/05 Varicose v ein of lower limb with phlebitis 026048983 I83.11 3410195 As noted in hosp.Seen by Dr. Jean Baptiste, instructed to complete antibiotic s and follow up in office next week, 11/05Monito r Obstructiv e sleep apnea syndrome 12915593 G47.33 9410206 Just finished sleep study.CPAP recommende d, but currently on continuous O2 2LFollow up with Dr. Sylvester in regards to CPAP tomorrowMo nitor resp. status Asthenia 35045046 R53.1 76835 99233 Continue PT OTGoal is to return to [address].Ambu lating ad cameron. Peripheral vascular disease 964530542 I73.9 37894 SuspectedC urrently treating for cellulitis and has follow up with Vasc. Dr. Jean Baptiste in regards to varicose vein inflammati on, appt. ito r Morbid obesity 645675753 E66.01 82594 s/p gastic bypass.Enc ourage diet compliance and exercise Cocaine use disorder 739 7190611 F14.10 97709303 Sober since 5Curr ently living in [address].Abst inence encouraged , emotional support provided. Major depr essive disorder 006250488 F32.9 9087658774 With anxiety as wellContin ue home meds:dulox etine 30 mg qdtrazodon e 200 mg q hshydroxyz ine 50 mg tid prnremeron 45 mg q hsoxcarbaz apine 150 mg bid Due to nightmares , added prazosin 1 mg q hs, pt. states not very effective so far. Continue to monitorWil l refer to Psych as well. Monitor mood, behaviors Chronic back pain 285331 002 M54.9 G89.29 49389994 Continue home meds:dulox etine 30 mg qdlyrica 75 mg bidibuprof en 600 mg tid prnmeloxic am 15 mg q hsbaclofen 10 mg bidMonitor Sheltered homelessness 0999534441 23673 Z59.01 5652567801 Currently living in a [address], previously homeless. Tobacco user 659427786 F 17.200 32313 Smokes about 5 cigarettes per day.Declin es nicoderm patchSmoki ng cessation discussedM onitor Gastroesop hageal reflux disease without esophagitis 100393208 K21.9 511930 Continue omeprazole 20 mg qdMonitor GI sx. Edema of l ower extremity 310417942 R60.0 16266 Continue lasix 40 mg qdElevate legs when ableFollow ing up with Dr. Jean Baptiste to address bushing and broach operator y concernsCu rrently with 10 lb. wt. gain, unsure if true gain or scale error.Will request re-weighMo nitorTrend VS, wts, labs, swelling Generalized arthritis 20 2642756 M19.90 80731563 s/p B THRs and R TKRalso with chronic back painmeds as abovePT OT eval and tx. Chronic ri ght-sided heart failure 19896392 I50.812 685423 Continue lasix 40 mg qdRecent 10 lb weight gain - unsure if scale error.Clin ically no s/s fluid overloadRe quest reweighMon itor CP status. s/s decompensa tion closely History of anemia 891621 002 Z86.2 95504247 Trend CBCs History of deep vein thrombosis 205666222 Z86.[address] [facility] neg for DVTNot on AC at this [...] 1 [employer] (MEDICARE REPLACEMENT/ ADVANTAGE - PPO) [id number] Chuy Castro [id number] Chuy Castro Notes Date Note Type Note Provider Name and Address Organization Details Recorded Time 10/30/19 25 text/htm azam Vera is seen today for initial intake.He is a 58 yo male, admitted to [facility] 10/27/[address] [facility] for continued care and rehab after a hospitalization due to acute hypoxemic resp. failure and BLE cellulitis. He presented to [facility] ER 10/24 from a sleep center after being told by the tech he was in acute respiratory failure.At [facility], resp. failure felt related to PNA (poss. [...] rest. Sat 87 % on O2 per DIMETHYLANILINE SULFATOR OPERATOR today. Upon exam, Chuy is coming in from smoking. Alert, NAD. In general he is feeling good, better than when he went into the hospital. Notes he needs the HOB elevated at [facility] to help with his breathing. Occasional [...] full code LUIS MANUEL MEHTA NP [address] [facility], [address], [place], [address], [facility] 10/29/2024 14:25:58 10/31/19 text/htm l Patient is [...] eval and treat Stefano Rehman MD [address] [facility], [address], [place], [address], [facility] 10/30/2024 12:29:47 11/04/19 text/htm l Chuy is seen today for an acute visit. He is a 58 yo male, admitted to [facility] 10/27/[address] [facility] for continued care and rehab after a [...] full code LUIS MANUEL MEHTA NP [address] [facility], [address], [place], [address], [facility] 11/03/2024 15:37:17
--- OUTSIDE RECORDS SUMMARY | 2025-01-14 22:49 | XMS_ITS | Clinical Summary ---
Author Organization [facility] ity Address [address] [place] [address] Care Team Providers Care Net Maker Name Role Phone Unavailable Primary Care Provider [...] 5 season) 2024 Influenza Vaccine (#1) 2024 RSV Immunization Adult Patie nts (1 - 1-dose 75+ series) 2041 HIB Vaccines Aged Out No longer eligi [...]
--- OUTSIDE RECORDS SUMMARY | 2025-01-14 22:49 | XMS_ITS | Encounter Summary ---
Author Organization [facility] Address [address] [place] [address] Care Team Providers Care Kiln Tester Name Role Phone Paulo Schwarz Primary Care Provider [phone] Encounter Details Date Type Department Care Team (Late st Contact Info) Description 04/22/2017 Orders Only [facility] Pre-Admission Testing [address] [place] [address] Lexie Rust NP Social History Tobacco Use [...] DIAGNOSTICS Comment: MRSA CULTURE SCREEN MICRO NUMBER: [id number] TEST STATUS: FINAL SPECIMEN SOURCE: NOT GIVEN SPECIMEN QUALITY: ADEQUATE RESULT: No methicillin resistant Staphylococcus aureus (MRSA) isolated. 04/22/2017 12:2 2 PM EST 04/22/2017 5:52 PM EST Narrative Resulting Agency Comment [id number] Lexie Rust WAREHOUSE SPECIALIST LABORATORY Final Result Performing Organization Address City/State/[facility] Co de Phone Number [facility] [address] [place] [address] * EKG-TO BE READ AND BILLED BY [...] R TG Final Result Performing Organization Address [facility] Co de Phone Number [facility] * CULTURE, URINE, ROUTINE (04/22/2017 9:54 AM EST) Bacteria culture (Urine) SEE NOTE [facility] Comment: CULTURE, URINE, ROUTINE MICRO NUMBER: [id number] TEST STATUS: FINAL SPECIMEN SOURCE: NOT GIVEN SPECIMEN QUALITY: ADEQUATE RESULT: Single organism less than 10,000 CFU/mL isolated. These organisms, commonly found on external and internal genitalia, are considered colonizers. No further testing performed. 04/22/2017 9:54 AM EST 04/22/2017 2:49 PM EST Narrative Resulting Agency Comment [id number] us Lexie Rust NP LABORATORY Final Result Performing Organization Address [facility] de Phone Number [facility] [address] [place] [address] * PROTHROMBIN TIME (PT) (INR), BLOOD (04/22/2017 9:54 AM EST) INR 1.0 [facility] Comment: Reference Range 0.9-1.1 Moderate-intensity Warfarin Therapy 2.0-3.0 Higher-intensity Warfarin Therapy 3.0-4.0 PT 10.3 9.0 - 11.5 sec [facility] Comment: For more information on this test, go to: [email or web address] 04/22/2017 9:54 AM EST 04/22/2017 2:49 PM EST Narrative Resulting Agency Comment [id number] us Lexie Rust NP LAB SAME DAY RESULT Final Re sult Performing Organization Address [facility] Co de Phone Number [facility] [address] [place] [address] * (ABNORMAL) CBC INCLUDES DIFFERENTIAL AND PLATELET [...] 2:49 PM EST Narrative Resulting Agency Comment [id number] Lexie Rust WAREHOUSE SPECIALIST LAB SAME DAY RESULT Final Re sult Performing Organization Address City/State/[facility] Co de Phone Number [facility] [address] [place] [address] * (ABNORMAL) BASIC METABOLIC PANEL WITH (GFR) (04/22/2017 9:54 AM EST) Glucose 79 65 - 99 mg/dL [facility] Comment:Fasting reference in terval Urea Nitrogen Blood (BUN) 6(L) 7 - 25 mg/dL [facility] Creatinine 0.88 0.70 - 1.33 mg/dL [facility] Comment: For patients >49 years of age, the reference limit for Creatinine is approximately 13% higher for people identified as -M[place]. GFR 100 > OR = 60 mL/min/1. [...] needs for GFR calculation. Resulting Agency Comment [id number] us Lexie Rust NP LABORATORY Final Result Performing Organization Address City/State/[facility] Co de Phone Number [facility] [address] [place] [address] documented in this encounter Visit Diagnoses Diagnosis Pre-operative examination Preoperative examination, unspecified Primary osteoarthritis of right knee Primary localized osteoarthrosis, lower leg Sleep apnea, unspecified type Increased frequency of urination Urinary frequency documented in this encounter Care Teams Kiln Tester Relationship Specialty Start Date End Date Paulo Schwarz [address] [place] [address] [place] [address] PCP - General 01/07/08 documented as of this encounter
--- OUTSIDE RECORDS SUMMARY | 2025-01-14 22:49 | XMS_ITS | Encounter Summary ---
Author Organization [facility] Address [address] [place] [address] [place] [address] Phone Care Team Providers Care Bar Staff Name Role Phone Manuel Foy Primary Care Provider + Encounter Details Date Type Department Care Team (Late st Contact Info) Description 02/23/2024 Procedure Pass [facility] [address] [place] [address] Social History Tobacco Use Types Packs/Day Years [...] 1:31 PM Maria G Oconnell RN * [place] Suicide Severity Rating Scale (Screener/Recent Self-Report) Question [...] documented as of this encounter Care Teams Bar Staff Relationship Specialty Start Date End Date Manuel Foy PA [facility] [place] [address] PCP - General Physician Kids Activities Coach 02/23/24 documented as of this encounter Additional Source Comments The information contained in this document represents components of the legal health record. It is not the complete legal health record.[facility]
--- OUTSIDE RECORDS SUMMARY | 2025-01-14 22:49 | XMS_ITS | Continuity of Care Document ---
Author Organization [facility] Address [address] [place] [address] Care Team Providers Care Card Grinder Helper Name Role Phone Paulo Schwarz Primary Care Provider [phone] Encounters Date Type Department Care Team Description 11/13/2019 Travel 11/13/2019 1:15 PM EDT Radiology [facility] [address] [facility] [address] [place] [address] Right knee pain, unspecified chronicity 11/13/2019 1:30 PM EDT Consult (Initial) [facility] [address] [facility] [address] [place] [address] Suresh Velazquez MD Status post total right knee replacement (Primary Dx) 10/06/2019 Travel 10/01/2019 Travel 09/29/2019 Orders Only [facility] [address] [facility] [address] [place] [address] Suresh Velazquez MD 09/24/2019 Telephone [facility] [address] [facility] [address] [place] [address] Suresh Velazquez MD Error 09/23/2019 Orders Only [facility] [address] [facility] [address] [place] [address] Suresh Velazquez MD 09/23/2019 Travel 09/22/2019 Telephone [facility] [address] [facility] [address] [place] [address] Suresh Velazquez MD Imaging Request 05/20/2017 Telephone [facility] [address] [facility] [address] [place] [address] Suresh Velazquez MD Patient Questions 05/16/2017 Home Visit Suresh Villanueva MD, MD 05/16/2017 Refill [facility] [address] [facility] [address] [place] [address] Suresh Velazquez MD Refill Request 05/16/2017 Telephone [facility] [address] [facility] [address] [place] [address] Suresh Velazquez MD Refill Request 05/14/2017 Home Visit Suresh Villanueva MD, MD 05/14/2017 Telephone [facility] 123 [facility] [address] [place] [address] Suresh Velazquez MD VNA Communication 05/14/2017 Telephone [facility] [address] [address] Suresh Velazquez MD Patient Questions 05/06/2017 Minor Procedure/Test NON FC [facility] [address] [place] [address] Suresh Velazquez MD 05/06/2017 [facility] [address] [place] [address] Suresh Velazquez MD 05/02/2017 Orders Only NON FC [facility] [address] [place] [address] Suresh Velazquez MD 04/23/2017 Orders Only [facility] [address] [place] [address] [address] [place] [address] Peggy Gomez Tech 04/22/2017 Orders Only [facility]-Admission Testing [address] [place] [address] Lexie Rust NP 04/22/2017 9:30 AM EST Office Visit [facility] [address] [place] [address] Lexie Rust NP Pre-operative examination (Primary Dx); Primary osteoarthritis of right knee; Sleep apnea, unspecified type; Increased frequency of urination; Gastroesophageal reflux disease; Deep vein thrombosis (DVT) of proximal lower extremity, unspecified chronicity, unspecified laterality; Obesity, unspecified classification, unspecified obesity type, unspecified whether serious comorbidity present; Iron deficiency anemia, unspecified iron deficiency anemia type; Vitamin B 12 deficiency 04/04/2017 Telephone [facility] [address] [address] Suresh Velazquez MD Patient Questions 03/21/2017 2:30 PM EST Office Visit [facility] [address] [address] Suresh Velazquez MD Primary osteoarthritis of right knee (Primary Dx) 11/15/2016 7:45 AM EDT Office Visit [facility] [address] [address] Ld Mensah PA Primary osteoarthritis of right knee (Primary Dx) 04/19/2016 9:30 AM EST Office Visit [facility] [address] [address] Suresh Velazquez MD Osteoarthrosis involving lower leg (Primary Dx) 09/02/2015 9:15 AM EDT Consult (Initial) [facility] [address] [address] Suresh Velazquez MD Osteoarthrosis involving lower leg (Primary Dx) 12/06/2014 Telephone [facility] [address] [place] [address] Stuart Herrera NP Refill Request 11/05/2014 10:45 AM EDT Radiology [facility] [address] [place] [address] Bilateral hip pain 11/05/2014 11:45 AM EDT Office Visit [facility] [address] [place] [address] Stuart Herrera NP Muscle strain of gluteal region, unspecified laterality, initial encounter (Primary Dx) 11/04/2014 Orders Only [facility] [address] [place] [address] Stuart Herrera NP 07/29/2014 Orders Only NON FC [facility] [address] [place] [address] Sv, Unknown Provider 07/29/2014 2:00 PM EDT Consult (Initial) [facility] [address] [address] Stuart Herrera NP Muscle strain of left gluteal region, initial encounter (Primary Dx) 07/27/2014 Telephone [facility] [address] [address] Suresh Velazquez MD Patient Questions 03/24/2014 10:30 AM EST Office Visit [facility] Suite [facility] [address] [address] Becca Du NP Sciatica (Primary Dx) 03/17/2014 Telephone [facility] Suite [facility] [address] [address] Suresh Velazquez MD Patient Questions 07/28/2013 Telephone [facility] Suite [facility] [address] [address] Suresh Velazquez MD Letter/form Request (dr velazquez) 07/01/2013 Consult (Initial) REHABILITATION UNSPEC Provider, Unknown 04/27/2013 3:00 PM EST Office Visit [facility] Suite [facility] [address] [address] Becca Du NP Iliotibial band syndrome (Primary Dx) 04/07/2013 Telephone [facility] [address] [address] Suresh Velazquez MD No Show 02/02/2013 Refill [facility] [address] [place] [address] Suresh Velazquez MD Refill Request 01/21/2013 Refill [facility] [address] [facility] [address] [place] [address] Suresh Velazquez MD Refill Request (marcus) 01/08/2013 Refill [facility] [address] [facility] [address] [place] [address] Suresh Velazquez MD Refill Request 01/07/2013 Letter/Form [facility] [address] [facility] [address] [place] [address] Suresh Velazquez MD 12/23/2012 Refill [facility] [address] [facility] [address] [place] [address] Suresh Velazquez MD Refill Request 12/18/2012 10:45 AM EDT Office Visit [facility] [address] [facility] [address] [place] [address] Suresh Velazquez MD Osteoarthritis of the pelvic region and thigh (Primary Dx) 12/12/2012 Telephone [facility] [address] [facility] [address] [place] [address] Suresh Velazquez MD Other (dr velazquez) 12/10/2012 Telephone [facility] [address] [facility] [address] [place] [address] Suresh Velazquez MD Patient Questions (Dr. Velazquez) 12/09/2012 Refill [facility] [address] [facility] [address] [place] [address] Suresh Velazquez MD Refill Request 12/08/2012 Orders Only [facility] [address] [facility] [address] [place] [address] Suresh Velazquez MD 12/08/2012 Refill [facility] [address] [facility] [address] [place] [address] Suresh Velazquez MD Refill Request 12/03/2012 Refill [facility] [address] [facility] [address] [place] [address] Suresh Velazquez MD Refill Request ( ) 12/01/2012 Orders Only ORTHO SURG UNSPECIFIED Suresh Velazquez MD 11/27/2012 Telephone [facility] [address] [facility] [address] [place] [address] Suresh Velazquez MD Other (Becca Wagneruld ) 11/26/2012 Refill [facility] [address] [facility] [address] [place] [address] Suresh Velazquez MD Refill Request (Dr. Velazquez ) 11/24/2012 Orders Only ORTHO SURG UNSPECIFIED Suresh Velazquez MD 11/19/2012 [facility] NON FC [facility] [address] [place] [address] Suresh Velazquez MD 11/14/2012 Orders Only NON FC [facility] [address] [place] [address] Suresh Velazquez MD 10/27/2012 Orders Only [facility] [address] [facility] [address] [place] [address] Lin John Tech 10/27/2012 11:15 AM EDT Office Visit [facility] [address] [place] [address] Khurram Sunshine MD Pre-operative examination (Primary Dx); Osteoarthritis of hip; Sleep apnea; Deep vein thrombosis; Gastroesophageal reflux disease; Seizures; Urinary frequency; Obesity 10/09/2012 Refill [facility] [address] [facility] [address] [place] [address] Suresh Velazquez MD Refill Request 09/19/2012 Orders Only [facility] [address] [facility] [address] [place] [address] Suresh Velazquez MD 09/05/2012 Refill [facility] [address] [facility] [address] [place] [address] Suresh Velazquez MD Refill Request 09/05/2012 11:00 AM EDT Consult (Initial) [facility] [address] [facility] [address] [place] [address] Suresh Velazquez MD Osteoarthritis of the pelvic region and thigh (Primary Dx) 07/04/2010 3:45 PM EDT Office Visit [facility] [address] [facility] [address] [place] [address] Suresh Velazquez MD DJD (degenerative joint disease) of hip (Primary Dx) 05/05/2010 Telephone [facility] [address] [facility] [address] [place] [address] Suresh Velazquez MD No Show (Balcom) 02/14/2010 Telephone [facility] [address] [facility] [address] [place] [address] Suresh Velazquez MD Cancellation (Balcom) 12/28/2009 Telephone [facility] [address] [facility] [address] [place] [address] Suresh Velazquez MD Patient Questions (BALCOM) 09/30/2009 Refill [facility] [address] [facility] [address] [place] [address] Suresh Velazquez MD Refill Request 09/14/2009 Refill [facility] [address] [facility] [address] [place] [address] Suresh Velazquez MD Refill Request 09/02/2009 Telephone [facility] [address] [facility] [address] [place] [address] Suresh Velazquez MD Patient Questions (balcom) 08/24/2009 Refill [facility] [address] [facility] [address] [place] [address] Suresh Velazquez MD Refill Request 08/04/2009 Refill [facility] [address] [address] Suresh Velazquez MD Refill Request 07/26/2009 9:15 AM EDT Office Visit [facility] [address] [address] Suresh Velazquez MD Osteoarth NOS-unspec (Primary Dx) 07/21/2009 Telephone [facility] [address] [address] Suresh Velazquez MD Patient Questions (BALCOM) 07/19/2009 Telephone [facility] [address] [address] Suresh Velazquez MD Patient Questions (balcom) 07/13/2009 Telephone [facility] [address] [address] Suresh Velazquez MD Patient Questions (balcom) 07/08/2009 Telephone [facility] [address] [address] Suresh Velazquez MD Patient Questions (Balcom ) 07/07/2009 Telephone [facility] [address] [address] Suresh Velazquez MD VNA Communication 07/07/2009 Telephone [facility] [address] [address] Suresh Velazquez MD VNA Communication (dr velazquez) 07/04/2009 Telephone [facility] [address] [address] Suresh Velazquez MD Patient Questions (Balcom ) 06/28/2009 Consult (Initial) NON FC [facility] [address] [place] [address] [facility], Unknown Provider 06/28/2009 [facility] [address] [place] [address] Suresh Velazquez MD 06/23/2009 Orders Only [facility] [address] [place] [address] Suresh Velazquez MD 06/09/2009 Orders Only [facility] [address] [facility] [address] [place] [address] Lin John Tech 06/08/2009 Orders Only NON FC SA NON FC UNK Provider, Unknown 06/08/2009 8:00 AM EST Office Visit [facility]-Ad[facility] Testing [address] [place] [address] [facility] [address] [place] [address] Lexie Rust NP Preop examination; Osteoarthritis of hip; Urinary frequency; Morbid obesity; DVT (deep venous thrombosis); GERD (gastroesophageal reflux disease); Sleep apnea 05/12/2009 Telephone [facility] [address] [place] [address] [place] [address] Suresh Velazquez MD Patient Questions (marcus) 05/06/2009 Orders Only [facility] [address] [place] [address] Suresh Velazquez MD 05/06/2009 1:15 PM EST Office Visit [facility] [address] [place] [address] [place] [address] Suresh Velazquez MD Osteoarth NOS-unspec (Primary Dx) 01/26/2009 Telephone [facility] [address] [place] [address] [place] [address] Paulo Schwarz Cancellation (Marcus ) 04/23/2008 Telephone [facility] [address] [place] [address] Suresh Velazquez MD 04/23/2008 Orders Only NON FC SA [facility] [address] [place] [address] Suresh Velazquez MD Allergies No known active [...] 04/23/2019 Social History Smoking Status as of 01/14/2025 Tobacco Use Types Packs/Day Years Used Date [...] Not on file Procedures * Due to [place] state law, this organization might not be [...] 11:55 AM EST Results * Due to [place] state law, this organization might not be [...] BLOOD COUNT 12.8(H) 3.9 - 11.0 x1000/uL [facility] RBC 4.38 4.30 - 5.80 mil/ul [facility] Hemoglobin 12.1(L) 12.5 - 17.0 g/dL [facility] HCT (HEMATOCRIT) 36.8 36.0 - 50.0 % [facility] MCV 84 80 - 100 fL [facility] MCH 28 27 - 33 pg [facility] MCHC 33 31 - 36 g/dL [facility] RDW 16.0(H) 11.4 - 14.4 % [facility] PLATELETS 201 150 - 450 x1000/uL [facility] 05/07/2017 6:05 AM EST 05/07/2017 6:05 AM EST us Suresh Velazquez MD LABORATORY Final Result Performing Organization Address City/[facility]/ZIP Co de Phone Number [facility] [address] [place] [address] * (ABNORMAL) BASIC METABOLIC PANEL (05/07/2017 6:05 AM EST) Only the most recent of7 resultswithin the time period is included. Glucose 94 65 - 99 mg/dL [facility] BUN 11 5 - 26 mg/dL [facility] CREATININE 0.76 0.5 - 1.5 mg/dL [facility] BUN/Creatinine Ratio 14 8 - 27 [facility] GLOM FILT RATE, EST 106.4 >59 mL/min [facility] IF -LAURA N 123.3 >59 mL/min [facility] SODIUM 143 134 - 144 mEq/L [facility] POTASSIUM 3.9 3.6 - 5.6 mEq/L [facility] CHLORIDE 107 96 - 109 mEq/L [facility] CARBON DIOXIDE 29 20 - 32 mEq/L [facility] ANION GAP 7.0(L) 8 - 15 [facility] CALCIUM 8.4 8.3 - 10.0 mg/dL [facility] 05/07/2017 6:05 AM EST 05/07/2017 6:05 AM EST us Suresh Velazquez MD LABORATORY Final Result Performing Organization Address City/[facility]/ZIP Co de Phone Number [facility] [address] [place] [address] * KNEE UNILATERAL 1 OR 2 VIEWS (05/06/2017 3:31 PM EST) RADIOLOGY REPORT [facility] Department of Radiology [address] [place] [address], [id number] Name: WES OLIVO : 67 Date of Service: 05/06/17 1052 Acct Number: [id number] Order Number: [id number] Location: [facility] Report Number: [id number] Service: REG WIC/ Requesting Physician: Suresh Velazquez ([facility]) Category: RADIOLOGY [facility] Exam: KNEE 1 OR 2 VIEWS Right [...] hardware failure. Date/Time of Dictation: 05/06/17 1634 Component Technician (if applicable): Approved By Attending Radiologist: Deacon Hernandez 05/06/17 1634 [facility] Department of Radiology [address] [place] [address], [address] [facility] Anatomical Region Laterality Modality Other 05/06/2017 3:31 PM EST Narrative 05/06/2017 4:34 PM EST Reason for Study/History: Department of Radiology TEST(S) PROCESSED BY [facility] XRAY us Suersh Velazquez MD IMAGING-[facility] Final Result * UNSPECIFIED MAJOR PROCEDURE (05/06/2017) Narrative Procedure Note Suresh Velazquez MD - 05/06/2017 10:19 AM EST OPERATIVE REPORT DATE OF OPERATION: 05/06/2017 ATTENDING SURGEON: Dr. Suresh Velazquez. PREOPERATIVE DIAGNOSIS: Degenerative joint disease, right knee. POSTOPERATIVE DIAGNOSIS: Degenerative joint disease, right knee. PROCEDURE PERFORMED: Right total knee arthroplasty. TOURNIQUET TIME: 47 minutes. SANITATION ENGINEER: Cory Kaiser, advanced practitioner certified. IMPLANTS USED: [...] 10:04 A TT: 10:19 A Doc #: [id number] cc: Suresh Velazquez MD Suresh Velazquez MD PROCEDURES Final Result * BLOOD TYPE AND ANTIBODY SCREEN (05/02/2017 3:20 PM EST) Only the most recent of3 resultswithin the time period is included. BLOOD GROUP ABO O [facility] RH-(D) Positive [facility] ANTIBODY SCREEN Negative Negative [facility] 05/02/2017 3:20 PM EST 05/02/2017 3:20 PM EST Suresh Velazquez MD LABORATORY Final Result Performing Organization Address [facility] Co de Phone Number [facility] [address] [place] [address] * MRSA CULTURE SCREEN, NASAL ONLY (04/22/2017 12:22 PM EST) Only the most recent of2 resultswithin the time period is included. Methicillin Resistant Staphylococcus Aureus Screen SEE NOTE [facility] Comment: MRSA CULTURE SCREEN MICRO NUMBER: [id number] TEST STATUS: FINAL SPECIMEN SOURCE: NOT GIVEN SPECIMEN QUALITY: ADEQUATE RESULT: No methicillin resistant Staphylococcus aureus (MRSA) isolated. 04/22/2017 12:2 2 PM EST 04/22/2017 5:52 PM EST Narrative Resulting Agency Comment [id number] Lexie Rust NP LABORATORY Final Result [facility] [address] [place] [address] * EKG-TO BE READ AND BILLED BY [...] AM EST 04/22/2017 10:11 PM EST Result [facility] Lexie Rust NP CARDIOVASCULAR-WITH INBSKT R TG Final Result Performing Organization Address City/[facility]/ZIP Co de Phone Number [facility] * CULTURE, URINE, ROUTINE (04/22/2017 9:54 AM EST) Only the most recent of2 resultswithin the time period is included. Bacteria culture (Urine) SEE NOTE [facility] Comment: CULTURE, URINE, ROUTINE MICRO NUMBER: [id number] TEST STATUS: FINAL SPECIMEN SOURCE: NOT GIVEN SPECIMEN QUALITY: ADEQUATE RESULT: Single organism less than 10,000 CFU/mL isolated. These organisms, commonly found on external and internal genitalia, are considered colonizers. No further testing performed. 04/22/2017 9:54 AM EST 04/22/2017 2:49 PM EST Narrative Resulting Agency Comment [id number] Result [facility] Lexie Rust NP LABORATORY Final Result Performing Organization Address [facility] Co de Phone Number [facility] [address] [place] [address] * PROTHROMBIN TIME (PT) (INR), BLOOD (04/22/2017 9:54 AM EST) Pathologist [facility] INR 1.0 [facility] Comment: Reference Range 0.9-1.1 Moderate-intensity Warfarin Therapy 2.0-3.0 Higher-intensity Warfarin Therapy 3.0-4.0 PT 10.3 9.0 - 11.5 sec [facility] Comment: For more information on this test, go to: http://education.[employer]/faq/AGB206 04/22/2017 9:5 4 AM EST 04/22/2017 2:49 PM EST Narrative Resulting Agency Comment [id number] Lexie Rust DERMATOLOGY PROCEDURAL PHYSICIAN LAB SAME DAY RESULT Final Re sult [facility] [address] [place] [address] * (ABNORMAL) CBC INCLUDES DIFFERENTIAL AND PLATELET [...] 2:49 PM EST Narrative Resulting Agency Comment [id number] us Haylee Kaune DERMATOLOGY PROCEDURAL PHYSICIAN LAB SAME DAY RESULT Final Re sult [facility] [address] [place] [address] * (ABNORMAL) BASIC METABOLIC PANEL WITH (GFR) (04/22/2017 9:54 AM EST) Only the most recent of2 resultswithin the time period is included. Pathologist [facility] Glucose 79 65 - 99 mg/dL [facility] Comment:Fasting reference in terval Urea Nitrogen Blood (BUN) 6(L) 7 - 25 mg/dL [facility] Creatinine 0.88 0.70 - 1.33 mg/dL [facility] Comment: For patients >49 years of age, the reference limit for Creatinine is approximately 13% higher for people identified as -Mauritanian. GFR 100 > OR = 60 mL/min/1. [...] needs for GFR calculation. Resulting Agency Comment [id number] us Lexie Rust NP LABORATORY Final Result Performing Organization Address City/State/[facility] Co de Phone Number [facility] [address] [place] [address] * KNEE 3 VW MIN W/OBLIQUES (03/21/2017 5:24 PM EST) RADIOLOGY REPORT [facility] Department of Radiology [address] [place] [address], [address] Name: WES OLIVO : 67 Date of Service: 03/21/17 1445 Acct Number: [id number] Order Number: [id number] Location: [facility] Report Number: [id number] Service: REG REF/ Requesting Physician: Suresh Velazquez ([facility]) Category: ORTHOPEDIC RADIOLOGY [facility] Exam: KNEE 3 VW MIN Right Signs/Symptoms: [...] to large effusion. Date/Time of Dictation: 03/21/171827 Component Technician (if applicable): Approved By Attending Radiologist: Doni Pedro 03/21/171827 [facility] Department of Radiology [address] [place] [address], [address] [facility] Anatomical Region Laterality Modality Other 03/21/2017 5:24 PM EST Narrative 03/21/2017 6:28 PM EST Reason for Study/History: Department of Radiology TEST(S) PROCESSED BY [facility] XRAY Suresh Velazquez MD [facility] Final Result * XRAY KNEE AP LAT & OBLQ MIN 3 VW - RIGHT (09/02/2015 11:21 AM EDT) RADIOLOGY REPORT [facility] Department of Radiology [address] [place] [address], [address] Name: WES OLIVO : 67 Date of Service: 09/02/15930 Acct Number: [id number] Order Number: [id number] Location: [facility] Report Number: [id number] Service: REG REF/ Requesting Physician: Suresh Velazquez ([facility]) Category: ORTHOPEDIC RADIOLOGY [facility] Exam: KNEE 3 VW MIN Right Signs/Symptoms: [...] compartment osteoarthritis. Date/Time of Dictation: 09/02/15 1125 Component Technician (if applicable): Approved By Attending Radiologist: Tobi Gary 09/02/15 1125 [facility] Department of Radiology [address] [place] [address], [address] [facility] Anatomical Region Laterality Modality Other 09/02/2015 11:2 1 AM EDT Narrative 09/02/2015 11:26 AM EDT Reason for Study/History: Department of Radiology TEST(S) PROCESSED BY [facility] XRAY Suresh Velazquez MD [facility] Final Result * XRAY HIPS WITH PA [...] the time period is included. RADIOLOGY REPORT [facility] Department of Radiology [address] [place] [address], [id number] Name: WES OLIVO : 67 Date of Service: 07/29/14 1425 Acct Number: [id number] Order Number: [id number] Location: [facility] Report Number: [id number] Service: PRE REF/ Requesting Physician: Stuart Velez ([facility]) Category: ORTHOPEDIC RADIOLOGY [facility] Exam: HIP UNILAT 2 VIEWS Left Signs/Symptoms: [...] Approved Electronically By/Date: Alfonzo Peterson 07/29/14 1538 [facility] Department of Radiology [address] [place] [address], [id number] [facility] Anatomical Region Laterality Modality Other 07/29/2014 3:34 PM EDT Narrative 07/29/2014 3:39 PM EDT Reason for Study/History: Department of Radiology TEST(S) PROCESSED BY [facility] us Unknown Provider [facility] Final Resul t * PELVIS 1 OR 2 VIEWS (07/29/2014 3:34 PM EDT) Only the most recent of8 resultswithin the time period is included. RADIOLOGY REPORT [facility] Department of Radiology [address] [place] [address], [id number] Name: WES OLIVO : 67 Date of Service: 07/29/14 1425 Acct Number: [id number] Order Number: [id number] Location: [facility] Report Number: [id number] Service: PRE REF/ Requesting Physician: Stuart Velez ([facility]) Category: ORTHOPEDIC RADIOLOGY [facility] Exam: PELVIS 1 OR 2 VIEWS Signs/Symptoms: [...] Approved Electronically By/Date: Alfonzo Peterson 07/29/14 1538 [facility] Department of Radiology [address] [place] [address], [address] [facility] RAD Anatomical Region Laterality Modality Other 07/29/2014 3:34 PM EDT Narrative 07/29/2014 3:39 PM EDT Reason for Study/History: Department of Radiology TEST(S) PROCESSED BY [facility] us Unknown Provider [facility] Final Resul t * HIP UNILATERAL 2 [facility] (03/24/2014 4:40 PM EST) Only the most recent of4 resultswithin the time period is included. RADIOLOGY REPORT [facility] Department of Radiology [address] [place] [address], [address] Name: WES OLIVO : 67 Date of Service: 03/24/14 1003 Acct Number: [id number] Order Number: [id number] Location: [facility] Report Number: [id number] Service: REG REF/ Requesting Physician: Becca Du ([facility]) Category: ORTHOPEDIC RADIOLOGY [facility] Exam: HIP UNILAT 2 VIEWS Right Signs/Symptoms: [...] view. Interpreting Resident: Date/Time of Dictation: 03/24/14 [facility] Approved Electronically By/Date: Michael Anders 03/24/14 1640 [facility] Department of Radiology [address] [place] [address], [address] [facility] RAD Anatomical Region Laterality Modality Other 03/24/2014 4:40 PM EST Narrative 03/24/2014 4:40 PM EST Reason for Study/History: Department of Radiology TEST(S) PROCESSED BY [facility] Becca Du DERMATOLOGY PROCEDURAL PHYSICIAN [facility] Final Result * UNSPECIFIED DIAGNOSTIC PROCE (12/08/2012) Only the most recent of5 resultswithin the time period is included. Narrative Transcriptions Suresh Velazquez MD - 12/24/2012 12:00 AM EDT Suresh Velazquez MD LABORATORY Final Result * PELVIS 1 OR 2 VIEWS (11/19/2012 4:51 PM EDT) Only the most recent of2 resultswithin the time period is included. RADIOLOGY REPORT [facility] Department of Radiology [address] [place] [address], [id number] Name: WES OLIVO : 67 Date of Service: 11/19/12 1636 Acct Number: [id number] Order Number: [id number] Location: [facility] Report Number: [id number] Service: ADM IN/LEROY Requesting Physician: Suresh Velazquez ([facility]) Category: RADIOLOGY [facility] Exam: PELVIS 1 OR 2 VIEWS Signs/Symptoms: [...] Approved Electronically By/Date: Tracey Lawson 11/19/12 1652 [facility] Department of Radiology [address] [place] [address], [id number] [facility] Anatomical Region Laterality Modality Other 11/19/2012 4:51 PM EDT Narrative 11/19/2012 4:52 PM EDT Reason for Study/History: Department of Radiology TEST(S) PROCESSED BY [facility] Suresh Velazquez MD [facility] Final Result * HIP UNILATERAL 2 VIEW - RIGHT (11/19/2012 4:50 PM EDT) RADIOLOGY REPORT [facility] Department of Radiology [address] [place] [address], [id number] Name: WES OLIVO : 67 Date of Service: 11/19/12 1637 Acct Number: [id number] Order Number: [id number] Location: [facility] Report Number: [id number] Service: ADM IN/LEROY Requesting Physician: Suresh Velazquez ([facility]) Category: RADIOLOGY [facility] Exam: HIP 2 VIEWS UNILATERAL Right Signs/Symptoms: [...] Approved Electronically By/Date: Tracey Lawson 11/19/12 165 [facility] Department of Radiology [address] [place] [address], [id number] [facility] Anatomical Region Laterality Modality Other 11/19/2012 4:50 PM EDT Narrative 11/19/2012 4:51 PM EDT Reason for Study/History: Department of Radiology TEST(S) PROCESSED BY [facility] Suresh Velazquez MD [facility] Final Result * UNSPECIFIED MAJOR PROCEDURE (11/19/2012) [...] extended neck offset. SURGEON: Suresh Velazquez MD SANITATION ENGINEER: Becca Du NP. INDICATIONS: The patient has [...] quadratus femoris and the inferior capsule. A torres martinez blade was then used to release the [...] 2:48 P TT: 2:59 P Doc #: [id number] cc: Suresh Velazquez MD Suresh Velazquez MD PROCEDURES Final Result * HIP UNILAT 2 VIEWS (09/05/2012 12:25 PM EDT) RADIOLOGY REPORT [facility] Department of Radiology [address] [place] [address], [address] Name: WES OLIVO : 67 Date of Service: 09/05/12 1056 Acct Number: [id number] Order Number: [id number] Location: [facility] Report Number: [id number] Service: REG REF/ Requesting Physician: Suresh Velazquez ([facility]) Category: ORTHOPEDIC RADIOLOGY [facility] Exam: HIP UNILAT 2 VIEWS Right Signs/Symptoms: [...] Approved Electronically By/Date: Vance Riggins 09/05/12 1226 [facility] Department of Radiology [address] [place] [address], [address] [facility] Anatomical Region Laterality Modality Other 09/05/2012 12:2 5 PM EDT Narrative 09/05/2012 12:26 PM EDT Reason for Study/History: Department of Radiology TEST(S) PROCESSED BY [facility] us Suresh Velazquez MD [facility] Final Result * (ABNORMAL) PROTHROMBIN TIME (07/02/2009 [...] EDT Reason for Study/History: TEST(S) PROCESSED BY [facility] Suresh Velazquez MD [facility] Final Result * UNSPECIFIED MAJOR PROCEDURE (06/28/2009 [...] 44 +12 cobalt chrome head,a size 8 Izard cementless stem with lateral neck. SURGEON: Suresh Velazquez MD. SANITATION ENGINEER: GHAZALA Gates. INDICATIONS: The patient has not [...] quadratus femoris and the inferior capsule. A torres martinez bladewas then used to release the rotators [...] 5:42 P TT: 7:50 P Doc #: [id number] cc: Suresh Velazquez MD Suresh Velazquez MD [...] NP LABORATORY Final Result Performing Organization Address [facility] de Phone Number [facility] [address] [place] [address] * CULTURE, URINE (06/08/2009) URINE CULTURE CLEAN VOID SEE TEXT [facility] Comment: SOURCE: URINE NO GROWTH 06/08/2009 06/08/2009 5:3 4 PM EST Lexie Rust NP LABORATORY Final Result Performing Organization Address [facility] de Phone Number [facility] [address] [place] [address] * MRSA SCREEN, ANY SOURCE (06/08/2009) Result(s) SEE TEXT [facility] Comment: SOURCE: UNKNOWN NO METHICILLIN RESISTANT STAPHYLOCOCCUS AUREUS ISOLATED 06/08/2009 06/08/2009 5:3 4 PM EST Lexie Rust NP LABORATORY Final Result Performing Organization Address [facility] de Phone Number [facility] [address] [place] [address] * (ABNORMAL) CBC 5 PART DIFF (06/08/2009) [...] 5:3 4 PM EST us Lexie Rust DERMATOLOGY PROCEDURAL PHYSICIAN LAB SAME DAY RESULT Final Re sult [facility] [address] [place] [address] * URINALYSIS, COMPLETE (DIP & MICRO) (06/08/2009) [...] 5:3 4 PM EST us Lexie Rust DERMATOLOGY PROCEDURAL PHYSICIAN LAB SAME DAY RESULT Final Re sult [facility] [address] [place] [address] * XRAY HIPS BILATERAL MIN 2 VIEWS [...] (2 VWS) LT (04/23/2008 12:00 PM EST) [facility] RADIOLOGY REPORT Right knee, two views. [...] the right knee show TEST(S) PROCESSED BY [facility] Suresh Velazquez MD [facility] Final Result * KNEE (2 VWS) RT [...] of the left knee TEST(S) PROCESSED BY [facility] Suresh Velazquez MD [facility] Final Result Visit Diagnoses Diagnosis Start Date [...] total right knee replacement 11/13/2019 Care Teams Card Grinder Helper Relationship Specialty Start Date End Date Paulo Schwarz [address] [place] [address] [place], [place] [address] PCP - General 01/07/08
--- OUTSIDE RECORDS SUMMARY | 2025-01-14 22:49 | XMS_ITS | Patient Health Record ---
Author Organization [facility] Address [address] [place] [address] Care Team Providers Care Ice Skating Coach Name Role Phone [facility] Primary Care Provider [phone] Josiane Mohr Unavailable Edda Granado Unavailable [phone] Reason For Referral No Information Encounters Encounter Location Date Provider Diagnosis [facility] [address] [place] [address] [phone] 09/14/2024 Edda Granado [facility] [address] [place] [phone] 10/06/2024 Edda Granado [facility] [address] [place] [address] [phone] 10/15/2024 Edda Granado Plan Of Treatment No Information Insurance Providers Payer Name Payer Address Payer Phone Subscriber Number Group Number Insured Name Patient Relationship to Insured Coverage Start Date Coverage End Date [place] [address] [place] [address] [phone] [id number] Chuy Castro Self - patient is the insured
--- OUTSIDE RECORDS SUMMARY | 2025-01-14 22:49 | XMS_ITS | Encounter Summary ---
Author Organization [facility] Address [address] [place] [address] Care Team Providers Care It Senior Software Engineer Java Name Role Phone Paulo Schwarz Primary Care Provider [phone] Encounter Details Date Type Department Care Team ([facility] st Contact Info) Description 09/29/2019 Orders Only [facility] Orthopedic Surgery [address] 123 [facility] [address] [place] [phone] Suresh Velazquez MD [address] [place] [address] Social History Tobacco Use Types Packs/Day Years [...] chronicity documented in this encounter Care Teams It Senior Software Engineer Java Relationship Specialty Start Date End Date Paulo Schwarz [address] [place] [address] [place] [address] PCP - General 01/07/08 documented as of this encounter
--- OUTSIDE RECORDS SUMMARY | 2025-01-14 22:49 | XMS_ITS | Clinical Summary ---
Author Organization [facility] Address [address] [place] [phone] Phone Care Team Providers Care Ware Server Name Role Phone Manuel Foy Primary Care [...] Active ferrous sulfate 324 mg (65 mg [place] iron) TbEC Take 324 mg by mouth [...] Date Last Indicated MDR-GN 03/01/2024 03/01/2024 Insurance [facility] [employer] PPO MEDICARE REPLACEMENT MEDICARE PART A & B [facility] [employer]ET[employer] PPO MEDICARE REPLACEMENT MEDICARE PART A & B [place] [facility] RE[facility] MEDICARE PART A & B [place] PPO MEDICARE REPLACEMENT MEDICARE PART A & B [facility] AET[employer] O MEDICARE REPLACEMENT MEDICARE PART A & B Member Subscriber Plan / Payer (Ef fective 2004-) Name:Chuy aCstro Member ID:[id number] Relation to Subscriber:Self Name:Chuy Castro Subscriber ID:[id number] Payer ID:[id number] Group ID:Not on file Type:Medicare Address: [facility] test company [address] [place] [phone] [facility] MEDICARE REPLACEMENT MEDICARE PART A & B Member Subscriber Plan / Payer (Ef fective 2004-Present) Name:Castro, Chuy Rafael Member ID:[id number] Relation to Subscriber:Self Name:Chuy Castro Subscriber ID:[id number] Payer ID:[id number] Group ID:Not on file Type:Medicare Address: [employer] [address] [place] [id number] Advance Directives For more information, please contact: [phone] (9AM - 5PM Mar/[facility], Saturday-Saturday) * Full Code (Latest Code Status on File) Date Activated Date Inactivated Comments 02/28/2024 12:26 AM Question Answer Comments Code Status Confirmed With: Patient Care Teams Ware Server Relationship Specialty Start Date End Date Manuel Foy PA [address] [place], [place] [id number] PCP - General Physician Brake Lining Driller 02/23/24 Additional Source Comments The information contained in this document represents components of the legal health record. It is not the complete legal health record.[facility]
--- OUTSIDE RECORDS SUMMARY | 2025-01-14 22:50 | XMS_ITS | Encounter Summary ---
Author Organization [facility] Address [address] [place] [address] [place] [address] Phone Care Team Providers Care Refinery Operator Visbreaking Name Role Phone Manuel Foy Primary Care Provider + Encounter Details Date Type Department Care Team (Late st Contact Info) Description 02/23/2024 Procedure Pass [facility] Radiology [address] [place] [address] Social History Tobacco Use Types Packs/Day Years [...] 1:31 PM Maria G Oconnell RN * [place] Suicide Severity Rating Scale (Screener/Recent Self-Report) Question [...] documented as of this encounter Care Teams Refinery Operator Visbreaking Relationship Specialty Start Date End Date Manuel Foy PA [facility] [place] [address] PCP - General Physician Cost Accounting Clerk 02/23/24 documented as of this encounter Additional Source Comments The information contained in this document represents components of the legal health record. It is not the complete legal health record.[facility]
--- OUTSIDE RECORDS SUMMARY | 2025-01-14 22:50 | XMS_ITS | Encounter Summary ---
Author Organization [facility] Address [address] [address] Phone Care Team Providers Care Shuttle Filler Name Role Phone Pacheco Vargas DO Primary Care Provider [phone] Manuel Foy Primary Care Provider + Encounter Details Date Type Department Care Team (Late st Contact Info) Description 04/09/2018 Transcribe Orders [facility] Specimen Processing [address] [place] [address] Pacheco Vargas DO [address] [facility] [place] [address] [place] [address] [email or web address] Routine general medical examination at a [...] EST) WBC 7.46 3.40 - 11.20 K/uL [facility] RBC 4.65 4.50 - 5.50 M/uL [facility] HGB 12.8(L) 13.0 - 17.0 g/dL [facility] HCT 39.9(L) 40.0 - 51.0 % [facility] PLT 256 130 - 400 K/uL [facility] MCV 85.8 79.0 - 98.0 fL [facility] MCH 27.5 27.0 - 34.8 pg [facility] MCHC 32.1 31.5 - 36.0 g/dL [facility] RDW 15.5(H) 10.8 - 14.6 % [facility] MPV 11.9 9.4 - 12.4 fl [facility] NRBC 0.00 0.00 /100 WBCs [facility] ABSOLUTE NRBC 0.00 0.00 K/uL [facility] Blood 04/09/2018 10:0 3 AM EST 04/09/2018 11:52 AM EST us Pacheco Vargas DO LAB BLOOD ORDERABLES Final Resul t Performing Organization Address City/State/[facility] Co de Phone Number [facility] [address] [place] [address] documented in this encounter Visit Diagnoses Diagnosis [...] documented as of this encounter Care Teams Shuttle Filler Relationship Specialty Start Date End Date Pacheco Vargas DO PCP - General Internal Medicine 04/09/18 02/22/24 Manuel Foy PA [address] [place] [address] PCP - General Physician Neon Tube Bender 02/23/24 documented as of this encounter Additional Source Comments The information contained in this document represents components of the legal health record. It is not the complete legal health record.[facility]
--- OUTSIDE RECORDS SUMMARY | 2025-01-14 22:50 | XMS_ITS | Encounter Summary ---
Author Organization [facility] Address [address] [place] [address] Care Team Providers Care Timber Setter Name Role Phone Paulo Schwarz Primary Care Provider [phone] Encounter Details Date Type Department Care Team ([facility] st Contact Info) Description 11/04/2014 Orders Only [facility] [address] [place] [phone] Stuart Herrera NP Social History Tobacco Use [...] of this encounter Results * Due to [place] [...] changes. Bilateral hip prostheses. us Stuart Herrera CONTINUOUS DRYOUT OPERATOR IMG XRAY NO CONTRAST ORDERAB LES Final Result documented in this encounter Visit Diagnoses Diagnosis Bilateral hip pain- Primary Pain in joint, pelvic region and thigh Bilateral hip pain Pain in joint, pelvic region and thigh documented in this encounter Care Teams Timber Setter Relationship Specialty Start Date End Date Paulo Schwarz [address] [place] [address] [place] [address] PCP - General 01/07/08 documented as of this encounter
--- OUTSIDE RECORDS SUMMARY | 2025-01-14 22:50 | XMS_ITS | Encounter Summary ---
Author Organization [facility] Address [address] [place] [address] Care Team Providers Care Mail Service Coordinator Name Role Phone Paulo Schwarz Primary Care Provider [phone] Encounter Details Date Type Department Care Team ([facility] st Contact Info) Description 09/19/2012 Orders Only [facility] Orthopedic Surgery [address] [address] Suresh Velazquez MD [address] [place] [address] Social History Tobacco Use Types Packs/Day Years [...] thigh documented in this encounter Care Teams Mail Service Coordinator Relationship Specialty Start Date End Date Paulo Schwarz [address] [place] [address] [place] [address] PCP - General 01/07/08 documented as of this encounter
--- OUTSIDE RECORDS SUMMARY | 2025-01-14 22:50 | XMS_ITS | Clinical Summary ---
Author Organization [facility] Address [address] [place] [address] Care Team Providers Care Auditor Name Role Phone Ref, Has No Pcp [...] EST): Patient with COPD presenting from [facility] for hypoxia after he was [...] a PCP but does not have a social staff worker, may benefit from outpatient referral to decrease incidence of hospitalization. On discharge: -prednisone 40mg daily through 05/26 -Ambulatory pulmonology referral placed Assessment & Plan (05/24/2024 10:55 AM EST): Patient with COPD presenting from [facility] for hypoxia after he was [...] a PCP but does not have a social staff worker, may benefit from outpatient referral to decrease incidence of hospitalization. -prednisone 40mg daily x 5 days (D1: 27) -duonebs q4hr PRN -albuterol 2.5mg neb q4hr prn -maintain SpO2 88-92% -Ambulatory pulmonology referral on discharge Assessment & Plan (05/23/2024 3:55 PM EST): Patient with COPD presenting from [facility] for hypoxia after he was [...] a PCP but does not have a social staff worker, may benefit from outpatient referral to decrease incidence of hospitalization. -prednisone 40mg daily x 5 days (D1: 05/22) -duonebs q4hr scheduled -albuterol 2.5mg neb q4hr prn -maintain SpO2 88-92% -may benefit from pulm outpatient Assessment & Plan (05/22/2024 1:21 PM EST): Patient with COPD presenting from [facility] for hypoxia after he was [...] a PCP but does not have a social staff worker, may benefit from outpatient referral to decrease [...] 100 mg p.o. nightly Patient discharged to [facility] program, they will be assisting him with transitional housing. Discussed with patient that he will need a primary care doctor and he states [facility] program has been helping him organize [...] hospital admissions for withdrawal, presented from [facility] of acute hypoxic respiratory failure [...] hospital admissions for withdrawal, presented from [facility] of acute hypoxic respiratory failure [...] hospital admissions for withdrawal, presented from [facility] of acute hypoxic respiratory failure 2/2 COPDe. He has been on a 2 day detox from cocaine and alcohol. Reports last use was 05/20. Was given 10 mg of Valium by [facility] due to withdrawal symptoms and CIWA 10. -CIWA with rescue valium -continue home clonidine 0.1mg 3 times a day prn -thiamine, folic acid, Mag Assessment & Plan (05/22/2024 1:21 PM EST): History of cocaine and OUD with several hospital admissions for withdrawal, presented from [facility] of acute hypoxic respiratory failure 2/2 COPDe. He has been on a 2 day detox from cocaine and alcohol. Reports last use was 05/20. Was given 10 mg of Valium by [facility] due to withdrawal symptoms and CIWA 10. -CIWA with rescue valium -continue home clonidine 0.1mg 3 times a day prn -thiamine, folic acid, Mag Assessment & Plan (05/05/2024 11:43 AM EST): History of cocaine and OUD with several hospital admissions for withrawal, presented from [facility] ([facility]) in the setting of COVID. Was on a chlordiazepoxide at rehab, but last alcohol intake > 1 week [employer] to transfer here -continue home clonidine 0.1mg 3 times a day -continue home baclofen 10mg 3 times a day -nicotine patch as needed -thiamine and MV daily Assessment & Plan (05/04/2024 1:43 PM EST): History of cocaine and OUD with several hospital admissions for withrawal, presented from [facility] ([facility]) in the setting of COVID. Was on a chlordiazepoxide at rehab, but last alcohol intake > 1 week [employer] to transfer here -continue home clonidine 0.1mg 3 times a day -continue home baclofen 10mg 3 times a day -nicotine patch as needed -thiamine and MV daily Assessment & Plan (05/03/2024 12:11 PM EST): History of cocaine and OUD with several hospital admissions for withrawal, presented from [facility] ([facility]) in the setting of COVID. Was on a chlordiazepoxide at rehab, but last alcohol intake > 1 week [employer] to transfer here -continue home clonidine 0.1mg 3 times a day -continue home baclofen 10mg 3 times a day -CIWA without meds, add if needed -nicotine patch as needed -thiamine and MV daily Assessment & Plan (05/02/2024 10:18 AM EST): History of cocaine and OUD with several hospital admissions for withrawal, presented from [facility] ([facility]) in the setting of COVID. Was on a chlordiazepoxide at rehab, but last alcohol intake > 1 week [employer] to transfer here -continue home clonidine 0.1mg 3 times a day -continue home baclofen 10mg 3 times a day -CIWA without meds, add if needed -nicotine patch as needed -thiamine and MV daily Assessment & Plan (05/01/2024 1:12 PM EST): History of cocaine and OUD with several hospital admissions for lisa, presented from [facility] ([facility]) in the setting of COVID. Was on a chlordiazepoxide at rehab, but last alcohol intake > 1 week [employer] to transfer here -continue home clonidine 0.1mg [...] on several psychotropic medications. Transferred to the [facility] from [facility] under [facility]. Was evaluated [...] psychotropic medications. Transferred to the hospital from [facility] under [facility]. Was evaluated [...] psychotropic medications. Transferred to the hospital from [facility] under [facility]. I am [...] psychotropic medications. Transferred to the hospital from [facility] under [facility]. I am [...] psychotropic medications. Transferred to the hospital from [facility] under [facility]. I am unclear at this time if he is also under Section 12 (hospitalized for 02/2024). Will need to clarify with psychiatry CL here - HOLD loxapine 100 mg [not noted in [facility] MAR] - Continue Zyprexa 10 mg daily [[facility] - Hydroxyzine 25 mg every 8 hours as needed - Pregabalin 75 mg three times a day - Formal psych evaluation requested to help clarify Section and medications Assessment & Plan (04/24/2024 11:29 AM EST): No home meds, although patient has Clonidine as prescribed in the past for anxiety PRN. Was hospitalized at [facility] with suicidal ideations & ACRHF in Feb 2024. -Clonidine 0.1 mg 3 times a day PRN Assessment & Plan (04/23/2024 9:51 AM EST): No home meds, although patient has Clonidine as prescribed in the past for anxiety PRN. Was hospitalized at [facility] with suicidal ideations & ACRHF in Feb 2024. -Clonidine 0.1 mg 3 times a day PRN Assessment & Plan (04/22/2024 9:22 AM EST): No home meds, although patient has Clonidine as prescribed in the past for anxiety PRN. Was hospitalized at [facility] with suicidal ideations & ACRHF in Feb 2024. -Clonidine 0.1 mg 3 times a day PRN Assessment & Plan (04/21/2024 9:58 AM EST): No home meds, although patient has Clonidine as prescribed in the past for anxiety PRN. Was hospitalized at [facility] with suicidal ideations & ACRHF in Feb 2024. -Clonidine 0.1 mg 3 times a day PRN Assessment & Plan (04/20/2024 11:03 AM EST): No home meds, although patient has Clonidine as prescribed in the past for anxiety PRN. Was hospitalized at [facility] with suicidal ideations & ACRHF in Feb 2024. -Clonidine 0.1 mg 3 times a day PRN Assessment & Plan (04/19/2024 12:45 PM EST): No home meds, although patient has Clonidine as prescribed in the past for anxiety PRN. Was hospitalized at [facility] with suicidal ideations & [...] to re-establish care with PCP. He said [facility] is helping him with this [...] 1:21 PM EST): Patient presenting from [facility] with acute hypoxia, placed on [...] 11:29 AM EST): Patient was brought from [facility] due to developing altered mental status (lethargy) after x1 valium for alcohol withdrawal. Immediately became hypoxic with aspiration episode and briefly needed supplemental oxygen, then was sent to [facility] for evaluation. Patient's mental status was back to baseline on 1/4 PM. Last drink was 04/16/24 prior to admission to [facility] on same day. CT head neg. -CIWA protocol with Ativan, discontinued as pt non-scoring -Folic acid & thiamine PO daily -Seizure precautions -SW consulted for AUD. Assessment & Plan (04/23/2024 9:51 AM EST): Patient was brought from [facility] due to developing altered mental status (lethargy) after x1 valium for alcohol withdrawal. Immediately became hypoxic with aspiration episode and briefly needed supplemental oxygen, then was sent to [facility] for evaluation. Patient's mental status was back to baseline on 1/4 PM. Last drink was 04/16/24 prior to admission to [facility] on same day. CT head neg. -CIWA protocol with Ativan, discontinued as pt non-scoring -Folic acid & thiamine PO daily -Seizure precautions -SW consulted for AUD. Assessment & Plan (04/22/2024 9:22 AM EST): Patient was brought from [facility] due to developing altered mental status (lethargy) after x1 valium for alcohol withdrawal. Immediately became hypoxic with aspiration episode and briefly needed supplemental oxygen, then was sent to [facility] for evaluation. Patient's mental status was back to baseline on 1/4 PM. Last drink was 04/16/24 prior to admission to [facility] on same day. CT head neg. -CIWA protocol with Ativan, discontinued as pt non-scoring -Folic acid & thiamine PO daily -Seizure precautions -SW consulted for AUD. Assessment & Plan (04/21/2024 9:58 AM EST): Patient was brought from [facility] due to developing altered mental status (lethargy) after x1 valium for alcohol withdrawal. Immediately became hypoxic with aspiration episode and briefly needed supplemental oxygen, then was sent to [facility] for evaluation. Patient's mental status was back to baseline on 1/4 PM. Last drink was 04/16/24 prior to admission to [facility] on same day. CT head neg. -CIWA protocol with Ativan, discontinued as pt non-scoring -Folic acid & thiamine PO daily -Seizure precautions -SW consulted for AUD. Assessment & Plan (04/20/2024 11:03 AM EST): Patient was brought from [facility] due to developing altered mental status (lethargy) after x1 valium for alcohol withdrawal. Immediately became hypoxic with aspiration episode and briefly needed supplemental oxygen, then was sent to [facility] for evaluation. Patient's mental status was back to baseline on 1/4 PM. Last drink was 04/16/24 prior to admission to [facility] on same day. CT head neg. -CIWA protocol with Ativan -Folic acid & thiamine PO daily -Seizure precautions -SW consulted for AUD. Assessment & Plan (04/19/2024 12:45 PM EST): Patient was brought from [facility] due to developing altered mental status (lethargy) after x1 valium for alcohol withdrawal. Immediately became hypoxic with aspiration episode and briefly needed supplemental oxygen, then was sent to [facility] for evaluation. Patient's mental status was back to baseline on 04/18 PM. Last drink was 04/16/24 prior to admission to [facility] on same day. CT head neg. -[facility] protocol with Ativan -Folic acid & thiamine PO daily -Seizure precautions - consulted for alcoholism. Assessment & Plan (04/18/2024 9:52 PM EST): 58 years old male, chronic alcohol abuse and GERD, transferred from [facility]. Patient has been admitted for alcohol detoxification, patient received Valium and post therapy developed respiratory distress, developed hypoxia and transferred to [facility] via EMS Plan: 1-[facility] protocol 2- replacement of multivitamins Aspiration pneumonia [...] Flagyl, Rocephin. Patient was recently admitted at [facility] for AHRF and Suicidal [...] Flagyl, Rocephin. Patient was recently admitted at [facility] for AHRF and Suicidal [...] Flagyl, Rocephin. Patient was recently admitted at [facility] for AHRF and Suicidal [...] Flagyl, Rocephin. Patient was recently admitted at [facility] for AHRF and Suicidal [...] Flagyl, Rocephin. Patient was recently admitted at [facility] for AHRF and Suicidal [...] Flagyl, Rocephin. Patient was recently admitted at [facility] for AHRF and Suicidal [...] drink = 0.6 oz pur e alcohol) [facility] Utilities Answer Date Recorded In the past 12 months has th e [employer], gas, oil, or water company threatened to [...] Weight 148.6 kg (327 lb 9.7 oz) 025 5:49 AM EST Height 178 cm (5' [...] Screening Completed 06/05/2024 Procedures * Due to [place] state law, this organization might not be [...] to Health Maintenance Results * Due to [place] state law, this organization might not be [...] 7 - 23 mg/dL 06/16/2024 10:05 AM [facility] Creatinine 0.84 0.60 - 1.30 mg/dL 06/16/2024 10:05 AM [facility] Glucose 124(H) 65 - 99 mg/dL 06/16/2024 10:05 AM [facility] Calcium 9.1 8.6 - 10.5 mg/dL 06/16/2024 10:05 AM [facility] Anion Gap 15 5 - 15 06/16/2024 10:05 AM [facility] eGFR >90 >=60 mL/min/1. 73m2 06/16/2024 10:05 AM [facility] Comment:The estimated glomer ular filtration rate (eGFR) is calculated using a new formula developed by the [facility] task force to eliminate race-based correction [...] Address City/[facility]/ZIP Co de Phone Number [facility] [address] [place] [address], [place] * Hepatitis C Antibody w/Reflex to HCV RNA, Quantitative PCR (06/05/2024 4:23 PM EST) Hepatitis C Antibody NON-REACT BRISSA NON-REACT BRISSA 06/06/2024 9:01 AM EST [facility] Comment: HCV antibody was non-reactive. There is no laboratory evidence of HCV infection. In most cases, no further action is required. However, if recent HCV exposure is suspected, a test for HCV RNA (test code 24171) is suggested. For additional information please refer to http://education.[employer]/faq/KWM95i4 (This link is being provided for informational/ educational purposes only.) Blood Structure of peripheral vein / Unknown Venipuncture / Unknown 06/05/2024 4:23 PM EST 06/05/2024 4:44 PM EST Narrative [facility] - 06/06/2024 9:01 AM EST [facility] Received Date: John Mello MD LAB BLOOD ORDERABLES Final Re sult Performing Organization Address City/[facility]/ZIP Co de Phone Number [facility] [address], [place] [address], [place] [phone] [employer] [facility] [address], [place] [address], [place] [phone] * CT Abdomen Pelvis with Contrast (04/21/2024 [...] to obtain the completed interpretation. Workstation ID: [id number] Narrative 04/22/2024 9:27 AM EST EXAMINATION: CT [...] streak artifact from bilateral total hip arthroplasty. QUALITY ASSURANCE MONITOR CHASSIS TOPOGRAM: As below LUNG BASES: Motion degraded. [...] outside the cortical bone. Resulting Agency Comment [id number] Procedure Note AmeCarol Ann witt MD - [...] metallic streak artifact from bilateraltotal hip arthroplasty. QUALITY ASSURANCE MONITOR CHASSIS TOPOGRAM: As below LUNG BASES: Motion degraded. [...] possible to obtain thecompleted interpretation. Workstation ID: [id number] Nikolai Gonsalez MD IMChen CT PROCEDURES Final [...] to obtain the completed interpretation. Workstation ID: [id number] Narrative 04/21/2024 7:45 AM EST Indication: Lung [...] changes in the spine. Resulting Agency Comment [id number] Procedure Note Anastasiia Mcnamara MD - 04/21/2024 [...] possible to obtain thecompleted interpretation. Workstation ID: [id number] Nikolai Gonsalez MD IMG CT PROCEDURES Final Result from Last 3 Months or Most Recently Relevant to Health Maintenance Insurance [facility] Advance Directives Documents on File Type Date Recorded Patient Surgical Training Specialist Expl anation Health Care Proxy 04/20/2024 [...] Agents on File Name Relationship Healthcare Agent Relationsil p Communication Ira Castro [facility] Health Care Agent [phone] (Mobile) Care Teams Auditor Relationship Specialty Start Date End Date Ref, Has No Pcp Or DO NOT EDIT THIS RECORD VIA PROVIDER ON THE FLY PCP - General Meat [employer] 04/17/24
[2025-01-14 22:59] LABS: MANUAL DIFF FLAG NO
[2025-01-14 23:00] VITALS: PULSE 70; RESP 18; O2SAT 90
[2025-01-14 23:05] LABS: ABG HCO3 38 mmol/L (22-26); ABG O2 % Saturation 93.0 %
[2025-01-14 23:07] LABS: NRBC Abs Auto 0.000 X10*3/uL (0.0-0.012); NRBC Pct Auto 0.0 /100WBC (0.0-0.2); SCAN SMEAR FLAG 1
[2025-01-14 23:09] LABS: Hematocrit 41.5 % (42.0-52.0); Hemoglobin 11.3 g/dl (14.0-18.0); Imm Gran Abs Auto 0.18 X10*3/uL (0.00-0.03); Imm Gran Pct Auto 0.7 % (0.0-0.4); Lymphocytes Absolute Auto 0.6 X10*3/uL (1.2-4.9); Mean Corpuscular HGB Conc 27.2 g/dl (31.0-36.0); Mean Corpuscular Hemoglobin 22.2 pg (27.0-33.0); Mean Corpuscular Volume 81.5 fL (80.0-98.0); PLT CLUMP 1; Red Blood Count 5.09 X10*6/uL (4.60-5.80)
--- NOTE | 2025-01-14 23:22 | PC.NURSE ---
Multiple attempts to place IV line were unsuccessful. Notified provider GHAZALA Lugo. plan for US guided line. PT on cpap, VSS
[2025-01-14 23:23] LABS: PLT ABN DIST 1; Platelet Count 247 X10*3/uL (160-400); White Blood Count 25.1 X10*3/uL (4.8-10.8)
[2025-01-14 23:27] LABS: Alanine Aminotransferase 39 U/L (0-40); Albumin Level 4.6 g/dL (3.5-5.0); Alkaline Phosphatase 101 U/L (39-117); Anion Gap 14 (12-20); Aspartate Amino Transferase 64 U/L (5-37); Blood Urea Nitrogen 24 mg/dL (9-16); Calcium 8.6 mg/dL (8.4-10.2); Carbon Dioxide 35 mmol/L (22-29); Chloride 94 mmol/L (96-108); Creatinine Clr Calc Pharmacy 103.9; Estimated Glomerular Filt Rate 57; Lipase 28 U/L (8-78); Potassium 4.8 mmol/L (3.3-5.1); Sodium 138 mmol/L (135-145); Total Protein 8.2 g/dL (6.5-8.0)
--- NOTE | 2025-01-14 23:32 | PC.NURSE ---
US guided IV line placed by GHAZALA Lugo
[2025-01-14 23:38] LABS: Troponin-I High Sensitivity 24.4 ng/L (<3.5-35.0)
--- NOTE | 2025-01-14 23:38 | PC.NURSE ---
Pt medicated as per jun. held lasik d/t soft pressure 100s/50s. Notified provider. Possible plan for pressors
[2025-01-14 23:43] LABS: Resp Syncy Virus RNA Qual PCR NEGATIVE (Negative); SARS COV2 PCR INHOUSE NEGATIVE (Negative)
[2025-01-14] MEDS: Albuterol Sulfate 7.5 MG, Albuterol/Iprat 2.5/0.5MG 3 ML 3 ML INHALE (23:49)
--- NOTE | 2025-01-14 23:49 | ED_ITS ---
HPI - General Adult General Chief complaint: Dyspnea Stated complaint: AMS x 20 mins SOB 15L NRB Time Seen by Provider: 01/14/25 22:18 Source: patient, EMS, RN notes reviewed and old records reviewed Mode of arrival: EMS Limitations: altered mental status History of Present Illness ED Provider: Tete HPI narrative: 69-year-old male past medical history significant for COPD on chronic 2 L, morbid obesity, congestive heart failure, last known echocardiogram from April of 2019 showed normal systolic and diastolic dysfunction, gastric bypass, hemorrhoids, peripheral vascular disease, substance abuse disorder, tobacco dependence, major depression, obstructive sleep apnea, GERD presents for evaluation of a acute hypoxic respiratory failure, Per EMS the patient is from [facility], it was reported that about 20 minutes prior to EMS arrival he developed altered mental status and was found to be struggling to breathe. EMS on and a have an oxygen saturation that was unreadable. They placement of 15 L and got his oxygen saturation up to 85%. They reports the patient was initially altered, but after hyper oxygenation became responsive and was talking and answering questions appropriately The patient reports that he wants to be left alone and to stop waking him up Further history is limited Related Data Home Medications ?Medication ?Instructions ?Recorded ?Confirmed trazodone 100 mg tablet 200 mg PO BEDTIME 09/15/24 0 12/08/24 clotrimazole-betamethasone 1 1 appl topical BID PRN Ra sh 10/25/24 12/08/24 %-0.05 % topical cream meloxicam 15 mg tablet 15 mg PO BEDTIME 10/25/24 pregabalin 75 mg capsule (Lyrica) 75 mg PO BID 5 12/08/24 bisacodyl 10 mg rectal suppository 10 mg UT DAILY PRN 12/29/24 furosemide 40 mg tablet 80 mg PO DAILY 12/29/24 magnesium hydroxide 2,400 mg/10 mL 10 ml PO DAILY PRN 12/29/24 oral suspension (Milk Of Magnesia Concentrated) melatonin 5 mg capsule mg PO DAILY PRN 12/29/24 naloxone 4 mg/actuation nasal 4 mg intranasal Q2M PRN 12/29/24 spray (Narcan) prazosin 1 mg capsule 1 mg PO BEDTIME 12/29/24 tizanidine 2 mg tablet 2 mg PO BID 12/29/24 Previous Rx's ?Medication ?Instructions ?Recorded albuterol sulfate 90 mcg/actuation 2 puff inhalation R Q4H PRN 07/21/24 aerosol inhaler (Ventolin HFA) Shortness Of Breath/Whe ezing 30 days #8.5 grams clonidine HCl 0.1 mg tablet 0.1 mg PO TID 90 days #270 tabs 07/21/24 hydroxyzine pamoate 50 mg capsule 50 mg PO TID PRN anx iety 90 days 07/21/24 #270 caps mirtazapine 45 mg tablet 45 mg PO BEDTIME 90 days #90 tabs 07/21/24 oxcarbazepine 150 mg tablet 150 mg PO BID 90 days #180 tabs 07/21/24 umeclidinium 62.5 mcg-vilanterol 1 ea inhalation DAILY 30 days #60 07/21/24 25 mcg/actuation powdr for ea inhalation (Anoro Ellipta) omeprazole 20 mg capsule,delayed 20 mg PO DAILY@0630 9 0 days #90 07/23/24 release caps baclofen 10 mg tablet 10 mg PO BID 30 days #60 tab s 07/27/24 ketoconazole 2 % shampoo 1 appl topical 3XW 4 weeks # 120 mL 09/15/24 POWER SCOOTER #1 ea 09/16/24 duloxetine 30 mg capsule,delayed 30 mg PO DAILY 90 day s #90 caps 09/17/24 release lidocaine 4 % topical patch 1 patch transdermal DAILY #1 ea 10/27/24 (Lidocaine Pain Relief) polymyxin B sulfate 10,000 1 drp ophthalmic (eye) QID 7 days 01/10/25 unit-trimethoprim 1 mg/mL eye drops #10 mL Allergies Allergy/AdvReac Type Severity Reaction Status Date / Time oxycodone Allergy Unknown Verified 01/14/25 22:27 Review of Systems 2 Review of Systems: Review of systems is quite limited secondary to patient's mental status Constitutional: Constitutional: Denies chills and Denies fever(s) Cardiovascular: Cardiovascular: Reports dyspnea Respiratory: Respiratory: Reports cough and Reports dyspnea PMFSH Past Medical History Medical History Substance abuse Varicose veins of right lower extremity with inflammation Morbid (severe) obesity due to excess calories COPD (chronic obstructive pulmonary disease) Cocaine use disorder MDD (major depressive disorder) Homeless ANA (obstructive sleep apnea) Varicose veins of right lower extremity Peripheral vascular disease GERD (gastroesophageal reflux disease) History of pernicious anemia Hx of acute respiratory failure Edema Back pain Arthritis History of DVT of lower extremity Depression ANA treated with BiPAP Right-sided heart failure Surgical History History of incisional hernia repair Hx of esophagogastroduodenoscopy Hx of colonoscopy History of total right knee replacement S/P right knee arthroscopy Hx of tracheostomy Hx of total hip arthroplasty History of colostomy reversal History of colon resection H/O gastric bypass Family History Family History Father Displacement of central venous catheter (CVC) Mother Unknown family medical history Social History Social History Household Members: Other Household Members Other:: penitentiary house Housing: Other Housing Other:: penitentiary house Do you presently have visiting nurse or other home services: No Alcohol intake: former Year quit: 2024 Patient Tobacco Use Status: Current everyday Tobacco user Tobacco use type: Cigarette Cigarettes Per Day: 5 Years Smoked: 40 e-Cigarette/Vaping Use: Currently Using Second Hand Smoke Exposure: Yes Substance Use Type: Crack/Cocaine Advance Directives: No Advance Directives Information Provided: No Do you have a plan to hurt others: No Plan service: No Sexual orientation: Straight/Heterosexual Cognitive needs: No Hearing needs: No Vision needs: Yes (Reading glasses) Physical Exam ED Vital Signs: Vital Signs - 24 hr 01/14/25 22:20 01/14/25 23:00 01/14/25 23:53 Temperature 97.1 F 97.1 F Pulse Rate 78 75 Respiratory Rate 17 18 16 Blood Pressure 129/63 125/66 Pulse Oximetry 65 L 91 L Oxygen Delivery Method Room Air BiPAP 01/15/25 00:01 01/15/25 00:15 01/15/25 02:23 Temperature Pulse Rate 75 Respiratory Rate 16 22 H Blood Pressure 123/66 Pulse Oximetry Oxygen Delivery Method BMI result Body Mass Index 48.4 Const General: acute distress severe and respiratory, ill appearing and patient obtunded Nutritional Appearance: well nourished and obese Orientation/consciousness: patient obtunded Limitations: altered mental status [facility] Head: Yes normocephalic and Yes atraumatic Eyes Eyelids: Yes eyelids normal Conjunctivae: conjunctivae normal Sclerae: sclerae normal Corneas: corneas normal Pupils: Equal, round and reactive pupils present EOM: EOMs intact bilaterally Neck Neck: Yes full ROM Resp Effort & Inspection: not able to speak in complete sentences, labored, tachypneic, no tracheal deviation and no tripod positioning Auscultation: not clear to auscultation bilaterally, rhonchi (Throughout), wheezes (Throughout) and diminished lung sounds Cardio Other: 2+ bilateral lower extremity edema Rate: regular rate Rhythm: regular rhythm Skin General skin exam: elasticity normal Neuro General: patient obtunded Cranial nerves: Yes Equal, round and reactive pupils present and Yes Bilaterally intact EOM present Extrem Other: Moving all extremities well without any obvious deformities Course Reevaluation(s) Reevaluation #1: The patient arrives in acute hypoxic respiratory distress. His oxygen saturation is 67% on room air. He pulled his non-rebreather off on his own. The patient is intermittently responsive, his pupils are pinpoint. EMS reported that the patient's symptoms started 20 minutes prior to their arrival. They report that nurse told them he was given his nighttime narcotics shortly before his symptoms started. The patient does not have any narcotics on his medication list. He also has an allergy to oxycodone. I initially ordered Narcan however I did not want the patient to be vomiting in his mask as he became unresponsive and likely due to hypercapnia while he needed a BiPAP machine Time: 22:49 Reevaluation #2: The patient is picture is not 100% clear, however he has no fever, no lactic acidosis, and his pro BNP is elevated making CHF and more likely diagnosis and sepsis and pneumonia. Therefore he was treated with Lasix 40 mg IV. He was given broad-spectrum antibiotics but was not given a 30 cc/kilogram bolus of fluids due to concern for acute congestive heart failure Time: 00:13 Reevaluation #3: The patient remains obtunded, but his vital signs are stable, he is normotensive, he is not tachycardic, his oxygen saturation is 93% on the BiPAP. He is still afebrile. I discussed with ICU, who recommends attempting Narcan at least 2 doses to see if there is any change or to terminate this is strictly a hypercarbic respiratory failure. ICU, Alfa also recommends a furosemide drip in addition to the bolus Time: 00:31 Additional Reevaluation(s): The patient had no response to Narcan x2 IV doses. Medications Administered Generic Name Dose Route Start Last Admin Trade Name Freq PRN Reason Stop Dose Admin Furosemide 200 mg/ Sodium 100 mls @ 5 mls/hr 01/15/25 00:30 01/15/25 02:07 Chloride IVCONT 10 mg/hr .Q20H EARNESTINE 5 mls/hr 10 MG/HR Administration Discontinued Medications Generic Name Dose Route Start Last Admin Trade Name Freq PRN Reason Stop Dose Admin Albuterol Sulfate 7.5 mg/ 0 mg 01/14/25 23:36 01/14/25 23:49 Albuterol/Ipratropium 3 ml INHALE 01/14/25 23:37 1 each ONCE ONE Administration Furosemide 40 mg 01/15/25 00:05 01/15/25 00:15 Furosemide 40 Mg/4 Ml Vial IVPUSH 01/15/25 00:06 40 mg STAT STA Administration Protocol Vancomycin HCl 2,000 mg in 500 mls @ 250 mls/hr 01/14/25 23:38 01/15/25 02:20 Vancomycin/Ns IV 01/15/25 01:37 Infused ONCE ONE Infusion Piperacillin Sod/Tazobactam 100 mls @ 200 mls/hr 01/14/25 23:38 01/15/25 01:00 Sod 4.5 gm/ Sodium Chloride IV 01/15/25 00:07 Infused ONCE ONE Infusion Sodium Chloride 250 mls @ 999 mls/hr 01/14/25 23:41 01/15/25 01:00 Ns IV 01/14/25 23:56 Infused .Q16M ONE Infusion Methylprednisolone Sodium Succinate 125 mg 01/14/25 22:30 01/14/25 23:33 Methylprednisolone Sod Succ 125 Mg/2 Ml Vial IVPUSH 01/14/25 22:31 125 mg ONCE ONE Administration Naloxone HCl 1 mg 01/14/25 22:30 01/14/25 23:34 Naloxone Hcl 2 Mg/2 Ml Syringe IVPUSH 01/14/25 22:31 Not Given ONCE ONE Naloxone HCl 0.4 mg 01/15/25 00:25 10/03/25 00:55 Naloxone Hcl 0.4 Mg/Ml Vial IVPUSH 01/15/25 00:26 0.4 mg STAT STA Administration Naloxone HCl 1 mg 01/15/25 01:20 01/15/25 02:26 Naloxone Hcl 2 Mg/2 Ml Syringe IVPUSH 01/15/25 01:21 1 mg ONCE ONE Administration Ondansetron HCl 4 mg 01/15/25 00:30 01/15/25 00:55 Ondansetron Hcl 4 Mg/2 Ml Vial IVPUSH 01/15/25 00:31 4 mg ONCE ONE Administration Medical Decision Making Medical Decision Making MDM Narrative: 59-year-old male with past medical history as above presents for evaluation of acute hypoxic respiratory failure. The patient became obtunded shortly after arrival I suspect this is due to hypercapnia as he was given 15 L on non- rebreather for the entire transport by EMS. He was answering questions for EMS and initially refusing transport to the emergency department. He briefly answer questions for about 5 minutes intermittently upon arrival but then became obtunded. The patient is placed on BiPAP on arrival. A portable chest x-ray was ordered that shows pulmonary vascular congestion versus pneumonia. [place] [address], this could be a significant stress reaction versus sepsis I ordered antibiotics and IV fluid bolus. He does have a history of CHF but the last echocardiogram that I have access to shows normal systolic and diastolic dysfunction. We are awaiting a pro BNP and a troponin. The patient has a history of COPD require a oxygen, I ordered bronchodilator and steroids. I believe his hypoxic respiratory failure is multifactorial Rosenda Francisco MD 01/15/25 0109 GHAZALA Epstein and I discussed the patient. I agree with his assessment and plan. Differential Diagnosis Differential Diagnoses: The differential diagnosis associated with the presentation includes COPD exacerbation Pneumonia Sepsis CHF Bronchitis COVID-19 Admission/Observation Consideration of admission/observation: Escalation of care including admission/observation considered Lab Data [facility] Lab Attestation statement: I reviewed the [place] [address] with a significant left shift the patient has a chronic microcytic anemia, today his hemoglobin is actually better than baseline at 11.3 with a hematocrit of 41.5. his platelet count was normal. Patient's proBNP is elevated to 1332.3. He had lactate is normal 01/14/25 22:53 01/14/25 22:53 Labs: Lab Results 01/14/25 01/14/25 01/14/25 Range/Units 22:53 23:00 23:23 WBC 25.1 H (4.8-10.8) X10*3/uL RBC 5.09 (4.60-5.80) X10*6/uL Hgb 11.3 L (14.0-18.0) g/dl Hct 41.5 L (42.0-52.0) % MCV 81.5 (80.0-98.0) fL MCH 22.2 L (27.0-33.0) pg MCHC 27.2 L (31.0-36.0) g/dl RDW 23.5 H (11.0-16.0) % Plt Count 247 (160-400) X10*3/uL MPV 10.1 (9.4-12.4) fL Immature Gran % (Auto) 0.7 H (0.0-0.4) % Neut % (Auto) 91.3 H (45-73) % Lymph % (Auto) 2.6 L (20-40) % [place] % (Auto) 4.9 (2-11) % Eos % (Auto) 0.2 (0-4) % Baso % (Auto) 0.3 (0-2) % Lymph # (Auto) 0.6 L (1.2-4.9) X10*3/uL [place] # (Auto) 1.2 (0.1-1.2) X10*3/uL Eos # (Auto) 0.1 (0.0-0.4) X10*3/uL Baso # (Auto) 0.1 (0.0-0.2) X10*3/uL Abs Immat Gran (auto) 0.18 H (0.00-0.03) X10*3/uL Absolute Neuts (auto) 22.9 H (2.0-8.3) x10*3/uL Absolute Nucleated RBC 0.000 (0.0-0.012) X10*3/uL Nucleated RBC % (auto) 0.0 (0.0-0.2) /100WBC O2 Saturation 93.0 % ABG pH at Pt Temp 7.22 L (7.35-7.45) ABG pCO2 at Pt Temp 93 H* (32-45) mmHg ABG pO2 at Pt Temp 76 L (83-108) mmHg ABG HCO3 38 H (22-26) mmol/L ABG Base Excess (Actual) 6.6 mmol/L Sodium 138 (135-145) mmol/L Potassium 4.8 (3.3-5.1) mmol/L Chloride 94 L (96-108) mmol/L Carbon Dioxide 35 H (22-29) mmol/L Anion Gap 14 (12-20) BUN 24 H (9-16) mg/dL Creatinine 1.29 (0.5-1.4) mg/dL Estim Creat Clear Calc 103.9 Estimated GFR 57 Random Glucose 121 H (60-115) mg/dL Lactic Acid 0.8 (0.5-2.0) mmol/L Calcium 8.6 (8.4-10.2) mg/dL Total Bilirubin 0.4 (0.0-1.0) mg/dL AST 64 H (5-37) U/L ALT 39 (0-40) U/L Alkaline Phosphatase 101 (39-117) U/L Troponin I High Sens 24.4 D (<3.5-35.0) ng/L NT-Pro-B Natriuret Pep 1332.3 H (<300) pg/mL Total Protein 8.2 H (6.5-8.0) g/dL Albumin 4.6 (3.5-5.0) g/dL Lipase 28 (8-78) U/L Urine Color Urine Appearance Urine pH (5.0-9.0) Ur Specific [place] (1.005-1.025) Urine Protein (Neg-Trace) mg/dL Urine Glucose (UA) (Negative) mg/dL Urine Ketones (Negative) mg/dL Urine Blood (Negative) Urine Nitrite (Negative) Ur Leukocyte Esterase (Negative) Urine Opiates Screen (Not Detect) Ur Buprenorphine Scrn (Not Detect) ng/mL Ur Oxycodone Screen (Not Detect) ng/mL Urine Methadone Screen (Not Detect) ng/mL Urine Fentanyl Screen (Not Detect) Ur Barbiturates Screen (Not Detect) Ur Phencyclidine Scrn (Not Detect) Ur Amphetamines Screen (Not Detect) U Benzodiazepines Scrn (Not Detect) Urine Cocaine Screen (Not Detect) U Marijuana (THC) Screen (Not Detect) Ethyl Alcohol 13 mg/dL Influenza Type A (PCR) NEGATIVE (Negative) Influenza Type B (PCR) NEGATIVE (Negative) RSV RNA Qual (PCR) NEGATIVE (Negative) SARS-CoV-2 RNA (RT-PCR) NEGATIVE (Negative) 01/15/25 01/15/25 Range/Units 01:21 02:21 WBC (4.8-10.8) X10*3/uL RBC (4.60-5.80) X10*6/uL Hgb (14.0-18.0) g/dl Hct (42.0-52.0) % MCV (80.0-98.0) fL MCH (27.0-33.0) pg MCHC (31.0-36.0) g/dl RDW (11.0-16.0) % Plt Count (160-400) X10*3/uL MPV (9.4-12.4) fL Immature Gran % (Auto) (0.0-0.4) % Neut % (Auto) (45-73) % Lymph % (Auto) (20-40) % [place] % (Auto) (2-11) % Eos % (Auto) (0-4) % Baso % (Auto) (0-2) % Lymph # (Auto) (1.2-4.9) X10*3/uL [place] # (Auto) (0.1-1.2) X10*3/uL Eos # (Auto) (0.0-0.4) X10*3/uL Baso # (Auto) (0.0-0.2) X10*3/uL Abs Immat Gran (auto) (0.00-0.03) X10*3/uL Absolute Neuts (auto) (2.0-8.3) x10*3/uL Absolute Nucleated RBC (0.0-0.012) X10*3/uL Nucleated RBC % (auto) (0.0-0.2) /100WBC O2 Saturation 88.0 % ABG pH at Pt Temp 7.20 L* (7.35-7.45) ABG pCO2 at Pt Temp 100 H* (32-45) mmHg ABG pO2 at Pt Temp 68 L (83-108) mmHg ABG HCO3 39 H (22-26) mmol/L ABG Base Excess (Actual) 7.1 mmol/L Sodium (135-145) mmol/L Potassium (3.3-5.1) mmol/L Chloride (96-108) mmol/L Carbon Dioxide (22-29) mmol/L Anion Gap (12-20) BUN (9-16) mg/dL Creatinine (0.5-1.4) mg/dL Estim Creat Clear Calc Estimated GFR Random Glucose (60-115) mg/dL Lactic Acid (0.5-2.0) mmol/L Calcium (8.4-10.2) mg/dL Total Bilirubin (0.0-1.0) mg/dL AST (5-37) U/L ALT (0-40) U/L Alkaline Phosphatase (39-117) U/L Troponin I High Sens (<3.5-35.0) ng/L NT-Pro-B Natriuret Pep (<300) pg/mL Total Protein (6.5-8.0) g/dL Albumin (3.5-5.0) g/dL Lipase (8-78) U/L Urine Color Yellow Urine Appearance Clear Urine pH 5.0 (5.0-9.0) Ur Specific [place] 1.015 (1.005-1.025) Urine Protein Trace (Neg-Trace) mg/dL Urine Glucose (UA) Negative (Negative) mg/dL Urine Ketones Negative (Negative) mg/dL Urine Blood Negative (Negative) Urine Nitrite Negative (Negative) Ur Leukocyte Esterase Negative (Negative) Urine Opiates Screen Not Detected (Not Detect) Ur Buprenorphine Scrn Not Detected (Not Detect) ng/mL Ur Oxycodone Screen Not Detected (Not Detect) ng/mL Urine Methadone Screen Not Detected (Not Detect) ng/mL Urine Fentanyl Screen Not Detected (Not Detect) Ur Barbiturates Screen Not Detected (Not Detect) Ur Phencyclidine Scrn Not Detected (Not Detect) Ur Amphetamines Screen Not Detected (Not Detect) U Benzodiazepines Scrn Not Detected (Not Detect) Urine Cocaine Screen POSITIVE H (Not Detect) U Marijuana (THC) Screen Not Detected (Not Detect) Ethyl Alcohol mg/dL Influenza Type A (PCR) (Negative) Influenza Type B (PCR) (Negative) RSV RNA Qual (PCR) (Negative) SARS-CoV-2 RNA (RT-PCR) (Negative) ABG Data ABG Results: The patient is acidotic with a pH of 7 2 2, he has hypercarbic with a pCO2 of 92.and a PO2 of 75.9 Attestation ABG: I personally reviewed and interpreted this ABG as follows: Prescription Management I considered prescription management with: Antibiotic Critical Care Time Critical Care Time Critical Care Time: Yes Total Critical Care Time: 75 Attestation: Patient presented in acute respiratory distress, requiring immediate BiPAP, concern for CHF and hypercapnia versus pneumonia versus opiate abuse. He had a significant workup including significant labs, ABG with a repeat ABG, chest x- ray and ultimately CT scan. He required ICU level of care Discharge Plan Discharge Clinical Impression: Acute hypercapnic respiratory failure Patient Disposition: Admitted As Inpatient Sepsis Bolus Exclusion Sepsis Bolus Exclusion CHF/Renal Failure Date of Occurrence: 01/15/25 Time of Occurrence:: 00:53 This patient met severe sepsis criteria due to the following condition(s):: H ypotension In my clinical judgement the administration of 30 ml/kg of crystalloid would be detrimental to this patient due to the patient's following conditions:: Concern for fluid overload Replace the 30 mls/kg with (Zero amount not acceptable and all fluids for severe sepsis must be given at GREATER than 125 mls/hr) *Note: One of the herrera must be documented Crystalloids amount given in mls: (rate must be at least 150cc/hr): 250 At a rate of (must be > 125 cchr):: 999
[2025-01-14 23:53] VITALS: BP 125/66; PULSE 75; RESP 16; TEMP 36.2; O2SAT 91
[2025-01-14 23:54] LABS: ABG Refer to POC result
--- NOTE | 2025-01-14 23:54 | PC.NURSE ---
Second IV line placed in right hand 22g. PT requiring suctioning- brown sputum noted. VSS, BP imporved, afebrile, provider notified
--- NOTE | 2025-01-14 23:58 | PC.NURSE ---
Spoke with Ira on the above date and time. She reports she spoke with him earlier today and he was so out of breath and stated he was throwing up blood this was around 12pm. He said staff told him it was because he ate watermelon but pt stated to sister he didn't eat watermelon. She states that he has been asking for his med list, and they arent telling him what they are giving him during med pass. She says he has been saying he doesn't feel right. She is concerned he may be over medicated. She states he has been there for two months HX of drug use
[2025-01-15] VITALS (56 sets, daily range): BP systolic 88–147; BP diastolic 42–76; PULSE 55–88; RESP 11–25; TEMP 34.8–37.2; O2SAT 86–98; BMI 47.7
[2025-01-15 00:02] LABS: NT Pro B Type Natriuretic Pept 1332.3 pg/mL (<300)
[2025-01-15] MEDS: Furosemide 40 MG/4 ML VIAL IVPUSH (00:15)
[2025-01-15] MEDS: vancomycin/NS 2,000 MG/500 ML PLAST..BAG 250 MG IV (00:16)
[2025-01-15 01:26] LABS: ABG HCO3 39 mmol/L (22-26); ABG O2 % Saturation 88.0 %
--- NOTE | 2025-01-15 01:49 | PC.NURSE ---
PT moved to CT with tw and RT.
[2025-01-15 01:56] LABS: ABG Refer to POC result
[2025-01-15] MEDS: Furosemide 200 MG in 0.9 % Sodium Chloride 80 ML IVCONT ×2 (02:07→23:10)
--- NOTE | 2025-01-15 02:22 | PC.NURSE ---
16f temp sensing andrade placed using sterile technique. Initial output 250mls clear tracy. No odor noted.
[2025-01-15 02:29] LABS: Appearance Urine Clear; Glucose Urine UA Negative (Negative); PH 5.0 (5.0-9.0); Specific Gravity - Urine 1.015 (1.005-1.025)
--- NOTE | 2025-01-15 02:36 | P.HPCC_ITS ---
History of Present Illness Date of Service: 01/15/25 <GHAZALA Rasmussen - Last Filed: 01/15/25 04:58> Attending physician on admission: Chay Contreras <GHAZALA Rasmussen - Last Filed: 01/15/25 04:58> Chief Complaint: Acute hypoxic/hypercarbic respiratory failure <GHAZALA Rasmussen - Last Filed: 01/15/25 04:58> 69-year-old male with underlying history of O2 dependent COPD with 2 L nasal cannula, morbid obesity, CHF,, peripheral vascular disease, substance abuse disorder, tobacco dependence, obstructive sleep apnea, depression, GERD, cocaine abuse, chronic leg edema, history of DVT among others.? The patient is transported via EMS from a assisted-living facility due to complaints of shortness of breath and acute mental status changes which started about 20 minutes prior to EMS arrival.? The patient had been placed on 15 L nasal cannula bringing his oxygen saturation to 85%, his mental status had improved slightly by the time he got to the emergency room and at some point he was talking full sentences although he was not fully coherent.? This was also the case in the emergency room however he quickly decompensated becoming obtunded. The workup in the emergency room via ABG showed pH of 7.2, pCO2 93, PO2 76, bicarb 38.? Labs are significant for white count 25.1, H and H of 11 and 41 respectively, platelets 247.? No bandemia.? Sodium 138, potassium 4.8, chloride 94, carbon dioxide 35, BUN 24, creatinine 1.29, random glucose 121, troponin 24.4, pro BNP 1332.3.? (previous baseline 102), U tox positive for cocaine otherwise negative. ?Chest x-ray consistent with bilateral pneumonia and perhaps underlying pulmonary edema. ?The patient was placed on BiPAP, soon after I was requested to see the patient, his pupils were pinpoint that he was obtunded.? Narcan administration did not have any effect.? At this point BiPAP settings changes were made to increase the delta gap and increased respiratory rate.? Head CT did not show any intracranial pathology.? Chest CT does confirm bilateral pneumonia right more than left.? The patient had been treated with Zosyn and vancomycin, Solu-Medrol.? Given his ongoing decline the patient will be transferred to the ICU for further care. <GHAZALA Rasmussen - Last Filed: 01/15/25 04:58> Review of Systems 2 Review of Systems: Yes Unobtainable due to mental condition (Completely obtunded) <GHAZALA Rasmussen - Last Filed: 01/15/25 04:58> [facility] Past Medical History Medical History: Medical History Substance abuse Varicose veins of right lower extremity with inflammation Morbid (severe) obesity due to excess calories COPD (chronic obstructive pulmonary disease) Cocaine use disorder MDD (major depressive disorder) Homeless ANA (obstructive sleep apnea) Varicose veins of right lower extremity Peripheral vascular disease GERD (gastroesophageal reflux disease) History of pernicious anemia Hx of acute respiratory failure Edema Back pain Arthritis History of DVT of lower extremity Depression ANA treated with BiPAP Right-sided heart failure <GHAZALA Rasmussen - Last Filed: 01/15/25 04:58> Family History Family History: Family History Father Displacement of central venous catheter (CVC) Mother Unknown family medical history <GHAZALA Rasmussen - Last Filed: 01/15/25 04:58> Surgical History Surgical History: Surgical History History of incisional hernia repair Hx of esophagogastroduodenoscopy Hx of colonoscopy History of total right knee replacement S/P right knee arthroscopy Hx of tracheostomy Hx of total hip arthroplasty History of colostomy reversal History of colon resection H/O gastric bypass <GHAZALA Rasmussen - Last Filed: 01/15/25 04:58> Social History Social History: Social History Household Members: Other Household Members Other:: [facility] Housing: Snf Housing Other:: senior care house Do you presently have visiting nurse or other home services: No Alcohol intake: former Year quit: 2024 Patient Tobacco Use Status: Current everyday Tobacco user Tobacco use type: Cigarette Cigarettes Per Day: 5 Years Smoked: 40 Smoked in Last 30 Days: Yes e-Cigarette/Vaping Use: Currently Using Patient Interested in Nicotine Replacement: No Patient Given Instructions on How to Stop Smoking: No Second Hand Smoke Exposure: No Substance Use Type: Crack/Cocaine Advance Directives: No Advance Directives Information Provided: No Do you have a plan to hurt others: No Plan Recently lost weight without trying: No Eating poorly because of decreased appetite: No Nutrition Risks: No Nutritional Risk Poor oral hygiene: No service: No Sexual orientation: Straight/Heterosexual Cognitive needs: No Hearing needs: No Vision needs: Yes (Reading glasses) <GHAZALA Rasmussen - Last Filed: 01/15/25 04:58> Meds Allergies/Adverse reactions: Allergies Allergy/AdvReac Type Severity Reaction Status Date / Time oxycodone Allergy Unknown Verified 01/14/25 22:27 <GHAZALA Rasmussen - Last Filed: 01/15/25 04:58> Active Medications: Current Medications Enoxaparin Sodium (Enoxaparin Sodium 40 Mg/0.4 Ml Syringe) 40 mg SUBCUT Q24H EARNESTINE Furosemide 200 mg/ Sodium (Chloride) 100 mls @ 5 mls/hr IVCONT .Q20H EARNESTINE Last Admin: 01/15/25 02:07 Dose: 10 mg/hr, 5 mls/hr Pharmacy Consult (Consult Rx Vancomycin Dosing) 1 each MISCELLANE DAILY PRN PRN Reason: Consult order <GHAZALA Rasmussen - Last Filed: 01/15/25 04:58> Home medications: Home Medications ?Medication ?Instructions ?Recorded ?Confirmed ?Last Taken ?Type trazodone 100 mg tablet 200 mg PO BEDTIME 09/15/24 0 12/08/24 Unknown History clotrimazole-betamethasone 1 1 appl topical BID PRN Ra 10/25/24 12/08/24 Unknown History %-0.05 % topical cream meloxicam 15 mg tablet 15 mg PO BEDTIME 10/25/24 Unknown History pregabalin 75 mg capsule (Lyrica) 75 mg PO BID 5 12/08/24 Unknown History bisacodyl 10 mg rectal suppository 10 mg UT DAILY PRN 12/29/24 Unknown History furosemide 40 mg tablet 80 mg PO DAILY 12/29/24 Unk nown History magnesium hydroxide 2,400 mg/10 mL 10 ml PO DAILY PRN 12/29/24 Unknown History oral suspension (Milk Of Magnesia Concentrated) melatonin 5 mg capsule mg PO DAILY PRN 12/29/24 Un known History naloxone 4 mg/actuation nasal 4 mg intranasal Q2M PRN 12/29/24 Unknown History spray (Narcan) prazosin 1 mg capsule 1 mg PO BEDTIME 12/29/24 Un known History tizanidine 2 mg tablet 2 mg PO BID 12/29/24 Unknow n History <GHAZALA Rasmussen - Last Filed: 01/15/25 04:58> Physical Exam 2 Vital Signs: Vital Signs: Last Vital Signs Temp 97.1 F 01/14/25 23:53 Pulse 75 01/15/25 00:01 Resp 22 H 01/15/25 02:23 BP 123/66 01/15/25 00:15 Pulse Ox 91 L 01/14/25 23:53 O2 Del Method BiPAP 01/14/25 23:53 BMI result Body Mass Index 48.4 <GHAZALA Rasmussen - Last Filed: 01/15/25 04:58> Sepsis exam done at 0245 General:? Completely obtunded, unresponsive to verbal or painful stimuli. Skin:? Morbidly obese, no clubbing or cyanosis.? No ulcers. HEENT:? Head is normocephalic, atraumatic, pupils pinpoint at 1 bilaterally, nonreactive. Cardiac:? Clear S1-S2, no murmurs rubs or gallops. Pulmonary:? Diminished lung sounds bilaterally significant coarseness at the bases right more than left and prominent rhonchi at the right base and lateral aspect.? Some crackles more prominent on the left.? No wheezing. Abdomen:? Protuberant, positive bowel sounds in all 4 quadrants.? Soft Musculoskeletal:? Passive range of motion of upper and lower extremities bilaterally at the major joints reveal no cogwheeling, no crepitus. ?2+ pitting edema in an ascending manner all the way to mid thigh is noted.? Erythematous Hyperpigmented bilateral lower extremities at the tibial aspect bilaterally without any hotness to touch.? Left leg bigger at the calf in comparison to the right. Neurologic:? As above.? Pinpoint pupils as above otherwise unable to further assess. Vascular:? 2+ pulses upper and lower extremities distally.? Less than 2nd capillary refill of fingers and toes bilaterally upper and lower extremities <GHAZALA Rasmussen - Last Filed: 01/15/25 04:58> Results Labs CBC and Chem 7: 01/15/25 04:40 01/15/25 04:40 <GHAZALA Rasmussen - Last Filed: 01/15/25 04:58> Labs: Laboratory Results - last 24 hr 01/14/25 01/14/25 01/14/25 22:53 23:00 23:23 MCV 81.5 MCH 22.2 L MCHC 27.2 L RDW 23.5 H Plt Count 247 MPV 10.1 Immature Gran % (Auto) 0.7 H Neut % (Auto) 91.3 H Lymph % (Auto) 2.6 L [place] % (Auto) 4.9 Eos % (Auto) 0.2 Baso % (Auto) 0.3 Lymph # (Auto) 0.6 L [place] # (Auto) 1.2 Eos # (Auto) 0.1 Baso # (Auto) 0.1 Abs Immat Gran (auto) 0.18 H Absolute Neuts (auto) 22.9 H Absolute Nucleated RBC 0.000 Nucleated RBC % (auto) 0.0 O2 Saturation 93.0 ABG pH at Pt Temp 7.22 L ABG pCO2 at Pt Temp 93 H* ABG pO2 at Pt Temp 76 L ABG HCO3 38 H ABG Base Excess (Actual) 6.6 Anion Gap 14 Estim Creat Clear Calc 103.9 Estimated GFR 57 Random Glucose 121 H Lactic Acid 0.8 Calcium 8.6 Total Bilirubin 0.4 AST 64 H ALT 39 Alkaline Phosphatase 101 Troponin I High Sens 24.4 D NT-Pro-B Natriuret Pep 1332.3 H Total Protein 8.2 H Albumin 4.6 Lipase 28 Urine Color Urine Appearance Urine pH Ur Specific [place] Urine Protein Urine Glucose (UA) Urine Ketones Urine Blood Urine Nitrite Ur Leukocyte Esterase Ethyl Alcohol 13 Influenza Type A (PCR) NEGATIVE Influenza Type B (PCR) NEGATIVE RSV RNA Qual (PCR) NEGATIVE SARS-CoV-2 RNA (RT-PCR) NEGATIVE 01/15/25 01/15/25 01:21 02:21 MCV MCH MCHC RDW Plt Count MPV Immature Gran % (Auto) Neut % (Auto) Lymph % (Auto) [place] % (Auto) Eos % (Auto) Baso % (Auto) Lymph # (Auto) [place] # (Auto) Eos # (Auto) Baso # (Auto) Abs Immat Gran (auto) Absolute Neuts (auto) Absolute Nucleated RBC Nucleated RBC % (auto) O2 Saturation 88.0 ABG pH at Pt Temp 7.20 L* ABG pCO2 at Pt Temp 100 H* ABG pO2 at Pt Temp 68 L ABG HCO3 39 H ABG Base Excess (Actual) 7.1 Anion Gap Estim Creat Clear Calc Estimated GFR Random Glucose Lactic Acid Calcium Total Bilirubin AST ALT Alkaline Phosphatase Troponin I High Sens NT-Pro-B Natriuret Pep Total Protein Albumin Lipase Urine Color Yellow Urine Appearance Clear Urine pH 5.0 Ur Specific Dickinson 1.015 Urine Protein Trace Urine Glucose (UA) Negative Urine Ketones Negative Urine Blood Negative Urine Nitrite Negative Ur Leukocyte Esterase Negative Ethyl Alcohol Influenza Type A (PCR) Influenza Type B (PCR) RSV RNA Qual (PCR) SARS-CoV-2 RNA (RT-PCR) <GHAZALA Rasmussen - Last Filed: 01/15/25 04:58> Imaging Radiologist's Impressions: Head CT no intracranial pathology. Chest CT Bilateral pneumonia right more than left. <GHAZALA Rasmussen - Last Filed: 01/15/25 04:58> Assessment and Plan (1) Acute respiratory failure with hypoxia and hypercapnia: Status: Acute <GHAZALA Rasmussen - Last Filed: 01/15/25 04:58> ASSESSMENT : 1. Acute hypoxic /hypercarbic respiratory failure (multifactorial) 2. Acute CHF exacerbation on chronic systolic and diastolic dysfunction 3. Acute COPD exacerbation 4. Bilateral lung pneumonia right greater than left 5. Acute Systemic inflammatory response syndrome / early sepsis without shock 6. History of polysubstance abuse positive for cocaine 7. History of obstructive sleep apnea 8. Left leg asymmetry rule out DVT PLAN OF CARE: The patient will be admitted to the ICU, monitor vital signs, I's and O's, repeated blood gas shows worsening hypercapnia.? I have kindly requested a head CT as well as chest CT prior to coming to the ER, to my view there is no intracranial hemorrhage, however the CT of the chest does confirm a significant bilateral pneumonia more prominent on the right side.? Broad-spectrum antibiotics, Solu-Medrol, DuoNeb and albuterol. Sputum culture and Gram stain.? The patient will continue with Lasix drip as he has swelling all the way up to the mid thighs.? The patient is not a candidate for IV fluids for he is already fluid overloaded and he would benefit from diuresis.? Giving him more IV fluids would make his CHF worse.?Echo in am. Albumin salt was ordered. Bilateral lower extremities rule out DVT. Soon after arriving to the ICU, the patient continued to deteriorate, the decision to intubate was made in an emergent way, RSI could not be follow and this turned into a crash airway; the patient was successfully intubated without any complications.? The patient's sister was contacted and updated on the patient's current condition. GI PROPHYLAXIS:? IV PPI DVT PROPHYLAXIS:? Lovenox b.i.d. 0422 clinical update, the patient is hemodynamically stable, given restlessness and bucking of the event fentanyl was added.? He had repeated ABG shows significant improvement with pH of 7.319, pCO2 76.6, PO2 63, bicarb 39. Follow-up sepsis exam 0430 General:? Completely obtunded, unresponsive to verbal or painful stimuli. Pulmonary:? Diminished lung sounds bilaterally significant coarseness at the bases right more than left and prominent rhonchi at the right base and lateral aspect.? There is now bilateral wheezing throughout Neurologic:? As above.? No focal deficits noted. Vascular:? 2+ pulses upper and lower extremities distally.? Less than 2nd capillary refill of fingers and toes bilaterally upper and lower extremities This patient counter and care had a high probability of a clinically significant, sudden, or life threatening deterioration of this patient's condition which required my full and direct attention, intervention and personal management. Critical care time used for critical evaluation of this patient, diagnosis, treatment and coordination of care, review her records and documentation TOTAL CRITICAL CARE TIME? 120 MIN . discussion and coordination with consultants, completely separate from any procedures performed. Patient's care was discussed in detail with Dr. Contreras who is aware of all the above as well as the plan of care for this patient. <GHAZALA Rasmussen - Last Filed: 01/15/25 04:58> ASSESSMENT : 1. Acute hypoxic /hypercarbic respiratory failure (multifactorial) 2. Acute CHF exacerbation on chronic systolic and diastolic dysfunction 3. Acute COPD exacerbation 4. Bilateral lung pneumonia right greater than left 5. Acute Systemic inflammatory response syndrome / early sepsis without shock 6. History of polysubstance abuse positive for cocaine 7. History of obstructive sleep apnea 8. Left leg asymmetry rule out DVT PLAN OF CARE: The patient will be admitted to the ICU, monitor vital signs, I's and O's, repeated blood gas shows worsening hypercapnia.? I have kindly requested a head CT as well as chest CT prior to coming to the ER, to my view there is no intracranial hemorrhage, however the CT of the chest does confirm a significant bilateral pneumonia more prominent on the right side.? Currently on ventilator support needing significantly high vent settings FiO2 85%, PEEP 8. Ventilator management bundle, daily sponateous awakening trials. will Broad-spectrum antibiotics, Solu-Medrol, DuoNeb and albuterol. Sputum culture and Gram stain.? The patient will continue with Lasix drip as he has swelling all the way up to the mid thighs.? The patient is not a candidate for IV fluids for he is already fluid overloaded and he would benefit from diuresis.? Giving him more IV fluids would make his CHF worse.?Echo in am. Albumin salt was ordered. Bilateral lower extremities rule out DVT. Will get TTE given he is cocaine positive and is in shock to rule out infective endocarditis Soon after arriving to the ICU, the patient continued to deteriorate, the decision to intubate was made in an emergent way, RSI could not be follow and this turned into a crash airway; the patient was successfully intubated without any complications.? The patient's sister was contacted and updated on the patient's current condition. GI PROPHYLAXIS:? IV PPI DVT PROPHYLAXIS:? Lovenox b.i.d. 0422 clinical update, the patient is hemodynamically stable, given restlessness and bucking of the event fentanyl was added.? He had repeated ABG shows significant improvement with pH of 7.319, pCO2 76.6, PO2 63, bicarb 39. Follow-up sepsis exam 0430 General:? Completely obtunded, unresponsive to verbal or painful stimuli. Pulmonary:? Diminished lung sounds bilaterally significant coarseness at the bases right more than left and prominent rhonchi at the right base and lateral aspect.? There is now bilateral wheezing throughout Neurologic:? As above.? No focal deficits noted. Vascular:? 2+ pulses upper and lower extremities distally.? Less than 2nd capillary refill of fingers and toes bilaterally upper and lower extremities This patient counter and care had a high probability of a clinically significant, sudden, or life threatening deterioration of this patient's condition which required my full and direct attention, intervention and personal management. Critical care time used for critical evaluation of this patient, diagnosis, treatment and coordination of care, review her records and documentation TOTAL CRITICAL CARE TIME? 120 MIN . discussion and coordination with consultants, completely separate from any procedures performed. Patient's care was discussed in detail with Dr. Contreras who is aware of all the above as well as the plan of care for this patient. <Chay Contreras MD - Last Filed: 01/15/25 09:13>
[2025-01-15 02:39] LABS: Cannabinoid Screen Urine Not Detected (Not Detect)
[2025-01-15] MEDS: Albumin Human 25 % 100 ML 133.33 ML IV ×2 (02:44→05:08)
--- NOTE | 2025-01-15 03:15 | PC.NURSE ---
Due to pt deteriorating status- pt not responding to stimuli and o2 dropping as low as 80% on Bipap decision made to transfer pt to ICU for intubation.
--- NOTE | 2025-01-15 03:24 | PC.NURSE ---
Bedside report given to Kyrie, MASK INSPECTOR
[2025-01-15] MEDS: fentaNYL citrate/NS 1,000 MCG/100 ML PLAST..BAG 2.5 MCG IVCONT (03:51)
[2025-01-15] MEDS: Albuterol/Iprat 2.5/0.5MG 3 ML AMPUL.NEB INHALE ×3 (04:02→17:15)
--- NOTE | 2025-01-15 04:09 | W.PM.CCHP ---
Procedures Date of Service Date of Service: 01/15/25 Intubation Intubation Comments: The patient would hypercarbic/hypoxic respiratory failure failed treatment with BiPAP, appeared to be getting worse both by gas and clinical examination. To protect the patient's airway and given the significance of his condition, bilateral lung pneumonia the best course of treatment is to intubate. Crash airway was necessary as RSI was difficult for we could not pre oxygenate the patient. Time out performed: Yes Sedative: propofol Mg given: 200 Paralytic: rocuronium Mg given: 50 Laryngoscope: fiber optic video scope ET tube size: 7.5 ET tube uncuffed: Yes Tube secured depth (cm): 27 Tube secured location: lips Tube placement confirmation: visualized tube passing through cords, equal breath sounds bilaterally, no breath sounds over epigastrium and confirmation by capnometry Patient tolerated procedure: well and no complications Intubation complications: none
[2025-01-15 04:23] LABS: ABG HCO3 40 mmol/L (22-26); ABG O2 % Saturation 91.0 %
[2025-01-15] MEDS: Albuterol Sulfate (0.083%) 2.5 MG/3 ML VIAL.NEB 10 MG INHALE (04:51)
[2025-01-15 05:26] LABS: Hematocrit 41.1 % (42.0-52.0); Hemoglobin 11.1 g/dl (14.0-18.0); Imm Gran Abs Auto 0.13 X10*3/uL (0.00-0.03); Imm Gran Pct Auto 0.6 % (0.0-0.4); Lymphocytes Absolute Auto 0.6 X10*3/uL (1.2-4.9); MANUAL DIFF FLAG SCAN; Mean Corpuscular HGB Conc 27.0 g/dl (31.0-36.0); Mean Corpuscular Hemoglobin 22.0 pg (27.0-33.0); Mean Corpuscular Volume 81.4 fL (80.0-98.0); NRBC Abs Auto 0.000 X10*3/uL (0.0-0.012); NRBC Pct Auto 0.0 /100WBC (0.0-0.2); Platelet Count 235 X10*3/uL (160-400); Red Blood Count 5.05 X10*6/uL (4.60-5.80); SCAN SMEAR FLAG 1; White Blood Count 22.0 X10*3/uL (4.8-10.8)
[2025-01-15 05:29] LABS: Alanine Aminotransferase 42 U/L (0-40); Albumin Level 4.0 g/dL (3.5-5.0); Alkaline Phosphatase 93 U/L (39-117); Anion Gap 16 (12-20); Aspartate Amino Transferase 66 U/L (5-37); Blood Urea Nitrogen 22 mg/dL (9-16); Calcium 8.3 mg/dL (8.4-10.2); Carbon Dioxide 31 mmol/L (22-29); Chloride 96 mmol/L (96-108); Creatinine Clr Calc Pharmacy 127.7; Estimated Glomerular Filt Rate > 60; Magnesium 2.6 mg/dL (1.6-2.6); Potassium 5.0 mmol/L (3.3-5.1); Sodium 138 mmol/L (135-145); Total Protein 7.3 g/dL (6.5-8.0)
[2025-01-15 05:41] LABS: Troponin-I High Sensitivity 14.4 ng/L (<3.5-35.0)
--- NOTE | 2025-01-15 07:00 | CA_ITS ---
Transthoracic Echocardiogram Patient (Last, First, Middle): Chuy Castro A Gender: M Date of : 1965 Age: 59 Procedure Date: 01/15/2025 Procedure Type: Transthoracic Echocardiogram Location: ICU Height: 187.96 cm Weight: 168.29 kg BSA: 2.83 m2 Heart Rate: 66 bpm BP: 130 / 65 mmHg Utility System Operator: SB Referring MD: Alfa VIVAR Symptoms: chf, ef valvs Study Quality: Adequate w contrast ECG Rhythm: Sinus Conclusions: - The left ventricular systolic function is low normal. The visually estimated ejection fraction is between 50-55%. - There is moderate calcification of the aortic valve. No significant aortic stenosis. Findings Procedure Information Contrast agent, definity, is being given per protocol without apparent complications. The quality of the study was technically difficult. The study quality is limited by patients body habitus and the presence of a ventilator. Left Ventricle Normal left ventricular cavity size. There is mildly increased left ventricular wall thickness. The left ventricular systolic function is low normal. The visually estimated ejection fraction is between 50-55%. There is mild global hypokinesis. Diastolic function is normal for age. There is moderate septal asymmetric hypertrophy. Right Ventricle Normal right ventricular cavity size and systolic function. Atria The left atrium is mildly dilated. The right atrium is normal in size. Aortic Valve There is moderate calcification of the aortic valve. There is no aortic valve regurgitation. No significant aortic stenosis. Mitral Valve There is mild mitral annular calcification. There is no mitral valve regurgitation. There is no mitral valve stenosis. Pulmonic Valve The pulmonic valve is likely normal. Tricuspid Valve There is trace tricuspid valve regurgitation. The right ventricular systolic pressure is not calculated. (on ventilator). Great Vessels The sinuses of valsalva and asc aorta are normal in size. Venous The inferior vena cava is dilated and does not collapse with inspiration. Pericardium/Pleural There is no evidence of pericardial effusion. Prior Study Comparison No significant change compared to prior study dated: 01/06/2020. Measurements 2D Linear Measurements IVSd: 1.36 0.6-0.9/0.6-1.0 cm LVIDd: 5.61 3.9-5.3/4.2-5.9 cm LVIDd Index: 1.98 2.4-3.2/2.2-3.1 cm/m2 LVIDs: 4.10 2.0-3.6 cm LVPWd: 1.12 0.7-1.1 cm LA Diam: 4.50 2.7-3.8/3.0-4.0 cm LAIDs Index: 1.59 1.5-2.3 cm/m2 LV Mass: 367.03 67-162/88-224 g LV Mass Index: 129.69 43-95/49-115 g/m2 LVOT Diam: 2.60 3.0+(-)1.3 cm 2D Systolic Function EF 4C: 53.10 >55% EF 2C: 46.60 >55% EF BiP: 50.10 >55% Mitral Valve MV Pk E: 1.14 MV PK A: 0.81 MV Decel Time: 214.00 E/A: 1.40 E'Lateral: 10.80 E'Medial: 6.09 E/E' Med: 18.70 E/E' Lat: 10.60 PHT: 63.00 MVA PHT: 3.49 Decel Erie: 5.31 Aortic Valve AoV Pk Moses: 2.46 AoV Mn Moses: 1.63 AoV VTI: 0.49 AoV Pk Grad: 24.00 Aov Mn Grad: 12.00 TANNER Cont.VTI: 2.66 LVOT LVOT Pk Moses: 1.24 LVOT Mn Moses: 0.88 LVOT VTI: 0.25 LVOT Pk Grad: 6.00 LVOT Mn Grad: 4.00 LVOT Diam: 2.60 LVOT Area: 5.31 Diastolic Function MV Pk E: 1.14 MV Pk A: 0.81 E/A: 1.40 E'Medial: 6.09 E/E' Med: 18.70 E' Laterial: 10.80 E/E' Lat: 10.60 Right Ventricle TAPSE (mm): 26.90 TVS' Moses: 15.20 Great Vessels Aorta Sinus of Valsalva: 3.80 2.0-3.5 cm Ao Asc: 3.50 2.1-3.4 cm Pulmonary Veins Pulm Vein S/D 1.30 Pulmonary Valve PV Pk Moses: 0.96 Peak PV Grad: 4.00 Updated in Other Vendor System with Status of Final Cyril Palma MD electronically signed on 01/15/2025 11:45:56 AM with status of Final
--- NOTE | 2025-01-15 09:47 | PHA.MEDREC ---
Addendum entered by Halley Carvajal RPh 01/15/25 10:28: MED REC REVIEWED BY [facility] Original Note: Pharmacy Consult ? Medication Reconciliation Pharmacy has completed the medication reconciliation. Utilized list from [facility] [place].
[2025-01-15] MEDS: Chlorhexidine Gluc Oral Rinse 15 ML MOUTHWASH BUCCAL ×2 (10:07→21:36)
--- NOTE | 2025-01-15 10:07 | MHC.CM.PN ---
IMM DELIVERED TO SISTER DELANO OLIVO. WHITE COPY LEFT AT PT'S BEDSIDE IN ICU, PT IS CURRENTLY INTUBATED/SEDATED AND UNABLE TO PARTICIPATE. PER SISTER, PT HAS BEEN AT [facility] X 2 MONTHS FOR STR. PT'S SISTER DOES NOT WANT HIM TO RETURN. PT USES [facility] AT [facility]HAB AND USES 02 PRN. + HCP ON FILE. PCP IS BERTHA DOSS. DP: PT WILL NEED A NEW P.T. EVAL WHEN MEDICALLY ABLE TO DETERMINE NEEDS. PT MAY NEED BLS TRANSPORT. CM WILL CONTINUE TO FOLLOW FOR ANY CHANGE TO DC PLAN/NEEDS.
[2025-01-15 10:23] LABS: VBG HCO3 39 mmol/L (22-26); VBG O2 % Saturation 100.0 %
[2025-01-15 10:38] LABS: Venous Blood Gas Refer to POC result
--- NOTE | 2025-01-15 11:22 | MHC.CLN ---
PT IS INTUBATED AND SEDATED DISCUSSED AT ROUNDS WITH MD-TO START TF CURRENTLY NPO RECOMMEND TF PROMOTE AT MAX GOAL RATE 30ML/HR WITH 240ML FWF Q 4 HRS TO PROVIDE 720KCALS (2075 TOTAL KCALS WITH SEDATION; 24KCALS/KG), 45G PROTEIN, 2044 TOTAL ML FREE WATER FROM FORMULA AND FLUSHES (24ML/KG BASED ON IBW) MONITOR TOLERANCE AND LYTES SEE FULL ASSESSMENT
[2025-01-15 11:45] LABS: Glucose, Whole Blood 179 mg/dL (60-115)
[2025-01-15 12:13] LABS: MRSA Nasal PCR NEGATIVE (Negative); SA Nasal PCR POSITIVE (Negative)
[2025-01-15] MEDS: fentaNYL citrate/NS 1,000 MCG/100 ML PLAST..BAG 10 MCG IVCONT ×2 (12:15→22:16)
[2025-01-15 14:23] LABS: ABG Refer to POC result
--- NOTE | 2025-01-15 17:43 | PC.NURSE ---
Assumed care at 0700. Pt remains intubated with propofol, lasix, fentanyl, and levophed drips running. Pt has thick brown, laura secretions inline and orally. Plan for pt is to remain intubated and sedated for the day. OG tube placed at approx 1230; tube feeds started at 1300. Levophed drip off at 1600. Upon repositioning at 1700, tube feed noted exiting from mouth and nose. Suction provided. made aware. TF stopped. Updates given to Ira on phone. See MAR and assessments for further details. Fall & safety precautions in place. Pt repositioned q2hr as tolerated.
[2025-01-16] VITALS (42 sets, daily range): BP systolic 100–151; BP diastolic 44–80; PULSE 52–93; RESP 18–24; TEMP 34.9–37.1; O2SAT 90–93; BMI 45.5
[2025-01-16] MEDS: Albuterol/Iprat 2.5/0.5MG 3 ML AMPUL.NEB INHALE ×4 (00:29→18:20)
[2025-01-16 00:51] LABS: Glucose, Whole Blood 140 mg/dL (60-115)
[2025-01-16 05:25] LABS: VBG HCO3 40 mmol/L (22-26); VBG O2 % Saturation 100.0 %
[2025-01-16 05:26] LABS: Venous Blood Gas Refer to POC result
[2025-01-16 05:34] LABS: MANUAL DIFF FLAG NO
[2025-01-16 05:44] LABS: Hematocrit 34.3 % (42.0-52.0); Hemoglobin 10.2 g/dl (14.0-18.0); Imm Gran Abs Auto 0.08 X10*3/uL (0.00-0.03); Imm Gran Pct Auto 0.7 % (0.0-0.4); Lymphocytes Absolute Auto 0.6 X10*3/uL (1.2-4.9); Mean Corpuscular HGB Conc 29.7 g/dl (31.0-36.0); Mean Corpuscular Hemoglobin 22.1 pg (27.0-33.0); Mean Corpuscular Volume 74.2 fL (80.0-98.0); NRBC Abs Auto 0.000 X10*3/uL (0.0-0.012); NRBC Pct Auto 0.0 /100WBC (0.0-0.2); Platelet Count 233 X10*3/uL (160-400); Red Blood Count 4.62 X10*6/uL (4.60-5.80); White Blood Count 10.8 X10*3/uL (4.8-10.8)
[2025-01-16 06:01] LABS: Alanine Aminotransferase 25 U/L (0-40); Albumin Level 3.6 g/dL (3.5-5.0); Alkaline Phosphatase 69 U/L (39-117); Anion Gap 12 (12-20); Aspartate Amino Transferase 29 U/L (5-37); Blood Urea Nitrogen 21 mg/dL (9-16); Calcium 8.6 mg/dL (8.4-10.2); Carbon Dioxide 34 mmol/L (22-29); Chloride 98 mmol/L (96-108); Creatinine Clr Calc Pharmacy 170.4; Estimated Glomerular Filt Rate > 60; Magnesium 2.3 mg/dL (1.6-2.6); Potassium 3.7 mmol/L (3.3-5.1); Sodium 140 mmol/L (135-145); Total Protein 6.4 g/dL (6.5-8.0)
--- NOTE | 2025-01-16 07:37 | PC.NURSE ---
Critical Care Nursing Note Assumed care of the patient at 1900.? The patient remained intubated and sedated throughout the shift. Sinus rhythm with occasional PACs on telemetry. Levophed gtt was restarted to maintain MAP goal >65, lasix gtt infusing at set rate.?
[2025-01-16] MEDS: Chlorhexidine Gluc Oral Rinse 15 ML MOUTHWASH BUCCAL ×2 (09:15→20:17)
[2025-01-16] MEDS: fentaNYL citrate/NS 1,000 MCG/100 ML PLAST..BAG 10 MCG IVCONT ×2 (09:23→19:55)
--- NOTE | 2025-01-16 13:12 | PM.CCPN ---
Subjective Subjective Date of Service: 01/16/25 Interval History: Critically ill on ventilator support, FiO2 75%, peep 10 On Levophed for vasopressor support On fentanyl for analgesia and propofol for sedation Critical Care Time (minutes): 35 Physical Exam Vital Signs: Vital Signs: Last Vital Signs Temp 98.4 F 01/16/25 11:00 Pulse 63 01/16/25 11:03 Resp 24 H 01/16/25 11:03 BP 135/70 01/16/25 11:00 Pulse Ox 92 01/16/25 11:00 O2 Del Method Mechanical Ventil ation 01/16/25 11:00 FiO2 75 01/16/25 11:00 BMI result Body Mass Index 45.5 General:in acute distress, ill appearing and tired appearing Nutritional Appearance: well nourished and overweight Eyes: appearance normal, both eyes and all related structures; Alignment and Position: alignment normal and position normal Neck: No lymphadenopathy, no thyromegaly Resp: bilateral air entry equal, crackles heard bilaterally Cardio: Regular rate, regular rhythm; Heart sounds: S1 normal heart sound present and S2 normal heart sound present GI: soft, nontender, no guarding, no hepatosplenomegaly : bladder normal to inspection, bladder normal to palpation, no renal angle tenderness Skin: no rashes or lesions noted and elasticity normal Neuro: Sedated, no focal deficits, moves all extremities Objective Data Labs 01/16/25 05:19 01/16/25 05:19 Labs: Laboratory Results - last 24 hr 01/16/25 01/16/25 01/16/25 00:47 05:19 05:21 WBC 10.8 RBC 4.62 Hgb 10.2 L Hct 34.3 L MCV 74.2 L D MCH 22.1 L MCHC 29.7 L RDW 23.3 H Plt Count 233 MPV 10.3 Immature Gran % (Auto) 0.7 H Neut % (Auto) 90.0 H Lymph % (Auto) 5.7 L [place] % (Auto) 3.6 Eos % (Auto) 0.0 Baso % (Auto) 0.0 Lymph # (Auto) 0.6 L [place] # (Auto) 0.4 Eos # (Auto) 0.0 Baso # (Auto) 0.0 Abs Immat Gran (auto) 0.08 H Absolute Neuts (auto) 9.7 H Absolute Nucleated RBC 0.000 Nucleated RBC % (auto) 0.0 VBG pH 7.55 H VBG pCO2 45 VBG pO2 98 VBG HCO3 40 H VBG O2 Saturation 100.0 VBG Base Excess 16.0 Sodium 140 Potassium 3.7 D Chloride 98 Carbon Dioxide 34 H Anion Gap 12 BUN 21 H Creatinine 0.78 Estim Creat Clear Calc 170.4 Estimated GFR > 60 POC Glucose 140 H Random Glucose 136 H Calcium 8.6 Phosphorus 2.7 Magnesium 2.3 Total Bilirubin 0.2 AST 29 ALT 25 Alkaline Phosphatase 69 Total Protein 6.4 L Albumin 3.6 Microbiology Microbiology Results: Microbiology 01/15/25 03:30 Sputum - Suctioned Gram Stain - Final 01/15/25 03:30 Sputum - Suctioned Sputum Culture - Preliminary 01/14/25 23:23 Blood - Venous Blood Culture - Preliminary No growth after 24 hours. 01/14/25 22:53 Blood - Venous Blood Culture - Preliminary No growth after 24 hours. Progress Note: A&P Assessment and plan (1) Acute and chronic respiratory failure with hypoxia: Status: Acute (2) Acute exacerbation of chronic obstructive airways disease: Status: Acute (3) Cocaine use disorder: Status: Acute (4) Toxic metabolic encephalopathy: Status: Acute Plan Neuro: Acute encephalopathy possibly due to toxic metabolic encephalopathy Urine drug screen positive for cocaine Head CT did not show any acute intracranial changes On propofol for sedation, as needed fentanyl for analgesia Close neurological status monitoring in the ICU every hour Cardiac: Cardiogenic Shock: Possibly secondary to positive pressure ventilation and sedation On Levophed support, titrate Levophed to keep map above 65 mm Hg Bedside echo showing good LV systolic function, normal size RV, IVC 2.9 cm noncollapsible, continue Lasix drip at 5 mg per hour Respiratory: Acute hypoxemic respiratory failure due to aspiration pneumonia Currently on ventilator support On PRVC mode FiO2 75, PEEP 10, TV 400, RR 20 Peak pressures and plateau pressures are under the curve Ventilator management bundle with head end elevation, aspiration precaution, chlorhexidine mouthwash, daily awakening trials, daily spontaneous breathing trials GI: We will start on tube feeds Renal: Stable renal function We will closely monitor I's and O's Avoid nephrotoxic medications Heme: Chronic anemia, closely monitor H&H, transfuse for hemoglobin less than 7 grams/deciliter Endocrine: Blood sugars under control Sliding scale insulin as needed Infectious disease: Pancultures negative so far Continue Zosyn for aspiration pneumonia MRSA nares negative Musculoskeletal: Decubitus ulcer prevention protocol Lines: Peripheral Prophylaxis: Lovenox, pantoprazole Total critical care time spent is about 40 minutes on ventilator management, sedation management, changing ventilator setting, close hemodynamic monitoring, vasopressor management, bedside ultrasound and echo to guide the hemodynamics, review of labs and images at this time is excluding any procedural time. Quality Stroke Does the patient have a stroke diagnosis?: No VTE Prior VTE?: No VTE Risk Level:: Medical - moderate - high VTE Device Contraindication: N/A - Device Ordered VTE Drug Contraindication: N/A - Med Ordered
[2025-01-16] MEDS: Furosemide 200 MG in 0.9 % Sodium Chloride 80 ML IVCONT (18:21)
--- NOTE | 2025-01-16 19:04 | PC.NURSE ---
Patient continues sedated and intubated, see MAR for sedation titration, Levophed continues see MAR for full details, turn and repo every 2hours to maintain skin intengrity, OG tube advanced at per Dr Contreras and placement xray completed, tube feeds restarted as per Dr Contreras, see tube feed assessment for full details.
[2025-01-16 23:49] LABS: Glucose, Whole Blood 127 mg/dL (60-115)
[2025-01-17] VITALS (48 sets, daily range): BP systolic 99–168; BP diastolic 37–93; PULSE 24–91; RESP 14–24; TEMP 34.5–37.6; O2SAT 88–97; BMI 46.5
[2025-01-17] MEDS: Albuterol/Iprat 2.5/0.5MG 3 ML AMPUL.NEB INHALE ×4 (00:30→19:27)
[2025-01-17 05:17] LABS: VBG HCO3 39 mmol/L (22-26); VBG O2 % Saturation 94.0 %
[2025-01-17 05:18] LABS: Venous Blood Gas Refer to POC result
[2025-01-17 05:18] LABS: MANUAL DIFF FLAG NO
[2025-01-17 05:22] LABS: Hematocrit 34.5 % (42.0-52.0); Hemoglobin 10.5 g/dl (14.0-18.0); Imm Gran Abs Auto 0.07 X10*3/uL (0.00-0.03); Imm Gran Pct Auto 0.5 % (0.0-0.4); Lymphocytes Absolute Auto 1.0 X10*3/uL (1.2-4.9); Mean Corpuscular HGB Conc 30.4 g/dl (31.0-36.0); Mean Corpuscular Hemoglobin 22.2 pg (27.0-33.0); Mean Corpuscular Volume 73.1 fL (80.0-98.0); NRBC Abs Auto 0.000 X10*3/uL (0.0-0.012); NRBC Pct Auto 0.0 /100WBC (0.0-0.2); Platelet Count 266 X10*3/uL (160-400); Red Blood Count 4.72 X10*6/uL (4.60-5.80); White Blood Count 13.8 X10*3/uL (4.8-10.8)
[2025-01-17 05:37] LABS: Alanine Aminotransferase 21 U/L (0-40); Albumin Level 3.5 g/dL (3.5-5.0); Alkaline Phosphatase 57 U/L (39-117); Anion Gap 13 (12-20); Aspartate Amino Transferase 20 U/L (5-37); Blood Urea Nitrogen 24 mg/dL (9-16); Calcium 8.5 mg/dL (8.4-10.2); Carbon Dioxide 33 mmol/L (22-29); Chloride 100 mmol/L (96-108); Creatinine Clr Calc Pharmacy 153.9; Estimated Glomerular Filt Rate > 60; Magnesium 2.4 mg/dL (1.6-2.6); Potassium 3.3 mmol/L (3.3-5.1); Sodium 143 mmol/L (135-145); Total Protein 6.2 g/dL (6.5-8.0)
[2025-01-17] MEDS: fentaNYL citrate/NS 1,000 MCG/100 ML PLAST..BAG 10 MCG IVCONT ×2 (06:00→16:16)
[2025-01-17] MEDS: Chlorhexidine Gluc Oral Rinse 15 ML MOUTHWASH BUCCAL ×2 (08:38→19:58)
[2025-01-17 12:29] LABS: Glucose, Whole Blood 131 mg/dL (60-115)
[2025-01-17] MEDS: Furosemide 200 MG in 0.9 % Sodium Chloride 80 ML IVCONT (13:40)
--- NOTE | 2025-01-17 14:34 | PM.CCPN ---
Subjective Subjective Date of Service: 01/17/25 Interval History: No significant changes in overall clinical status Continues to be on ventilator support, slight decrease in the FiO2 requirement Critical Care Time (minutes): 35 Physical Exam Vital Signs: Vital Signs: Last Vital Signs Temp 99.3 F 01/17/25 14:00 Pulse 72 01/17/25 14:00 Resp 24 H 01/17/25 14:00 BP 115/67 01/17/25 14:00 Pulse Ox 89 L 01/17/25 14:00 O2 Del Method Mechanical Ventil ation 01/17/25 14:00 FiO2 80 01/17/25 14:00 BMI result Body Mass Index 46.5 General: Elderly male in CV acute distress, ill appearing and tired appearing Nutritional Appearance: well nourished and overweight Eyes: appearance normal, both eyes and all related structures; Alignment and Position: alignment normal and position normal Neck: No lymphadenopathy, no thyromegaly Resp: bilateral air entry equal, crackles heard bilaterally Cardio: Regular rate, regular rhythm; Heart sounds: S1 normal heart sound present and S2 normal heart sound present GI: soft, nontender, no guarding, no hepatosplenomegaly : bladder normal to inspection, bladder normal to palpation, no renal angle tenderness Skin: no rashes or lesions noted and elasticity normal Neuro: Sedated, moves all extremities Objective Data Labs 01/17/25 05:11 01/17/25 05:11 Labs: Laboratory Results - last 24 hr 01/16/25 01/16/25 01/17/25 14:58 23:37 05:11 WBC 13.8 H RBC 4.72 Hgb 10.5 L Hct 34.5 L MCV 73.1 L MCH 22.2 L MCHC 30.4 L RDW 23.2 H Plt Count 266 MPV 9.8 Immature Gran % (Auto) 0.5 H Neut % (Auto) 84.7 H Lymph % (Auto) 7.4 L [place] % (Auto) 7.3 Eos % (Auto) 0.0 Baso % (Auto) 0.1 Lymph # (Auto) 1.0 L [place] # (Auto) 1.0 Eos # (Auto) 0.0 Baso # (Auto) 0.0 Abs Immat Gran (auto) 0.07 H Absolute Neuts (auto) 11.7 H Absolute Nucleated RBC 0.000 Nucleated RBC % (auto) 0.0 VBG pH VBG pCO2 VBG pO2 VBG HCO3 VBG O2 Saturation VBG Base Excess Sodium 143 Potassium 3.3 Chloride 100 Carbon Dioxide 33 H Anion Gap 13 BUN 24 H Creatinine 0.84 Estim Creat Clear Calc 153.9 Estimated GFR > 60 POC Glucose 127 H Random Glucose 100 Calcium 8.5 Phosphorus 2.9 Magnesium 2.4 Total Bilirubin 0.4 AST 20 ALT 21 Alkaline Phosphatase 57 Total Protein 6.2 L Albumin 3.5 Random Vancomycin 15.3 01/17/25 01/17/25 05:13 12:10 WBC RBC Hgb Hct MCV MCH MCHC RDW Plt Count MPV Immature Gran % (Auto) Neut % (Auto) Lymph % (Auto) [place] % (Auto) Eos % (Auto) Baso % (Auto) Lymph # (Auto) [place] # (Auto) Eos # (Auto) Baso # (Auto) Abs Immat Gran (auto) Absolute Neuts (auto) Absolute Nucleated RBC Nucleated RBC % (auto) VBG pH 7.59 H VBG pCO2 41 VBG pO2 67 VBG HCO3 39 H VBG O2 Saturation 94.0 VBG Base Excess 16.4 Sodium Potassium Chloride Carbon Dioxide Anion Gap BUN Creatinine Estim Creat Clear Calc Estimated GFR POC Glucose 131 H Random Glucose Calcium Phosphorus Magnesium Total Bilirubin AST ALT Alkaline Phosphatase Total Protein Albumin Random Vancomycin Microbiology Microbiology Results: Microbiology 01/15/25 03:30 Sputum - Suctioned Gram Stain - Final 01/15/25 03:30 Sputum - Suctioned Sputum Culture - Final 01/14/25 23:23 Blood - Venous Blood Culture - Preliminary No growth after 48 hours. 01/14/25 22:53 Blood - Venous Blood Culture - Preliminary No growth after 48 hours. Progress Note: A&P Assessment and plan (1) MDD (major depressive disorder): Status: Acute (2) Toxic metabolic encephalopathy: Status: Acute (3) Acute hypercapnic respiratory failure: Status: Acute (4) Acute respiratory failure with hypoxia and hypercapnia: Status: Acute Plan 59-year-old male admitted to the ICU secondary to aspiration pneumonia from drug overdose, UDS positive for cocaine needing intubation and ventilator support since admission on 01/15/2025, slowly decreasing FiO2 requirements. Neuro: Acute encephalopathy possibly due to toxic metabolic encephalopathy Urine drug screen positive for cocaine Head CT did not show any acute intracranial changes On propofol for sedation, as needed fentanyl for analgesia Close neurological status monitoring in the ICU every hour Cardiac: Cardiogenic Shock: Possibly secondary to positive pressure ventilation and sedation On Levophed support, titrate Levophed to keep map above 65 mm Hg Bedside echo showing good LV systolic function, normal size RV, IVC 2.9 cm noncollapsible, continue Lasix drip at 5 mg per hour Respiratory: Acute hypoxemic respiratory failure due to aspiration pneumonia Currently on ventilator support On PRVC mode FiO2 60%, PEEP 10, TV 400, RR 20; we will wean FiO2 as tolerated, not a candidate for weaning trials Peak pressures and plateau pressures are under the curve Ventilator management bundle with head end elevation, aspiration precaution, chlorhexidine mouthwash, daily awakening trials, daily spontaneous breathing trials GI: Tube feeds held due to regurgitation of feeds into the ET tube Renal: Stable renal function We will closely monitor I's and O's Avoid nephrotoxic medications Heme: Chronic anemia, closely monitor H&H, transfuse for hemoglobin less than 7 grams/deciliter Endocrine: Blood sugars under control Sliding scale insulin as needed Infectious disease: Pancultures negative so far Continue Zosyn for aspiration pneumonia MRSA nares negative Musculoskeletal: Decubitus ulcer prevention protocol Lines: Peripheral Prophylaxis: Lovenox, pantoprazole Quality Stroke Does the patient have a stroke diagnosis?: No VTE Prior VTE?: No VTE Risk Level:: Medical - moderate - high VTE Device Contraindication: N/A - Device Ordered VTE Drug Contraindication: N/A - Med Ordered
--- NOTE | 2025-01-17 19:05 | HE.ICUCC ---
ICU Critical Care Nursing Note ICU Day #:3 Vent Day #:3 Neuro:Sedated and intubated, Rass +1 to -3 through shift, See MAR for Fentanyl and Propofol titrations. Cardiac: Levophed titrated off this shift, Maintaining MAP above 65, Edematous see shift assessment for full details Resp: ACPC on vent, insp and exp rhonchi this morning, Diminished throughtout this afternoon/evening, see Vent assessment for full details GI/: OG tube clamped for noted regurgitation on manager night, Meredith in place and patent, Lasix gtt decreased to 5mg/hr Integumentary/Musculoskeletal: bilateral non behavior restraints to wrist, unable to follow commands and confused when awakens, turn and repo Q2H to prevent skin breakdown. Psychosocial (family etc.): Sister called for update
[2025-01-18] VITALS (39 sets, daily range): BP systolic 100–141; BP diastolic 54–78; PULSE 47–101; RESP 17–24; TEMP 34.3–37.6; O2SAT 88–96; BMI 45.5
[2025-01-18 00:01] LABS: Glucose, Whole Blood 102 mg/dL (60-115)
[2025-01-18] MEDS: Albuterol/Iprat 2.5/0.5MG 3 ML AMPUL.NEB INHALE ×5 (00:19→23:52)
[2025-01-18 04:53] LABS: VBG HCO3 34 mmol/L (22-26); VBG O2 % Saturation 98.0 %
[2025-01-18 05:08] LABS: MANUAL DIFF FLAG NO
[2025-01-18 05:09] LABS: Venous Blood Gas Refer to POC result
[2025-01-18 05:12] LABS: Hematocrit 36.1 % (42.0-52.0); Hemoglobin 11.0 g/dl (14.0-18.0); Imm Gran Abs Auto 0.07 X10*3/uL (0.00-0.03); Imm Gran Pct Auto 0.5 % (0.0-0.4); Lymphocytes Absolute Auto 1.3 X10*3/uL (1.2-4.9); Mean Corpuscular HGB Conc 30.5 g/dl (31.0-36.0); Mean Corpuscular Hemoglobin 22.2 pg (27.0-33.0); Mean Corpuscular Volume 72.9 fL (80.0-98.0); NRBC Abs Auto 0.000 X10*3/uL (0.0-0.012); NRBC Pct Auto 0.0 /100WBC (0.0-0.2); Platelet Count 259 X10*3/uL (160-400); Red Blood Count 4.95 X10*6/uL (4.60-5.80); White Blood Count 13.2 X10*3/uL (4.8-10.8)
[2025-01-18 05:31] LABS: Alanine Aminotransferase 14 U/L (0-40); Albumin Level 3.7 g/dL (3.5-5.0); Alkaline Phosphatase 56 U/L (39-117); Anion Gap 14 (12-20); Aspartate Amino Transferase 13 U/L (5-37); Blood Urea Nitrogen 26 mg/dL (9-16); Calcium 8.7 mg/dL (8.4-10.2); Carbon Dioxide 30 mmol/L (22-29); Chloride 104 mmol/L (96-108); Creatinine Clr Calc Pharmacy 150.5; Estimated Glomerular Filt Rate > 60; Magnesium 2.5 mg/dL (1.6-2.6); Potassium 3.1 mmol/L (3.3-5.1); Sodium 145 mmol/L (135-145); Total Protein 6.5 g/dL (6.5-8.0)
[2025-01-18] MEDS: Potassium Chloride/H20 10 MEQ/100 ML PIGGYBACK 100 MEQ IV ×4 (05:58→11:20)
--- NOTE | 2025-01-18 06:26 | PC.NURSE ---
Assumed care 1899 - pt remains?mechanically?ventilated, sedated on Propofol and Fentanyl - see MAR. SpO2 88-92%, on ACPC settings - see vent assessment. Peep and FiO2 increased per RT.?SR/SB on tele, HR 48-60s, MAP > 65. Lasix gtt continues per JUN. Meredith draining clear pale yellow urine, output 100 - 200 ml/hr. Tube feeds on hold per MD. Hygiene provided, repositioned Q2H.?
[2025-01-18] MEDS: Chlorhexidine Gluc Oral Rinse 15 ML MOUTHWASH BUCCAL ×2 (07:46→19:29)
--- NOTE | 2025-01-18 08:47 | PM.CCPN ---
Subjective Subjective Date of Service: 01/18/25 Critical Care Time (minutes): 60 Physical Exam Vital Signs: Vital Signs: Last Vital Signs Temp 99.0 F 01/18/25 08:00 Pulse 69 01/18/25 08:00 Resp 20 01/18/25 08:00 BP 106/64 01/18/25 08:00 Pulse Ox 91 L 01/18/25 08:00 O2 Del Method Mechanical Ventil ation 01/18/25 08:00 FiO2 90 01/18/25 08:00 BMI result Body Mass Index 45.5 Const: Other: intubated, sedated; no appreciable spontaneous movements General: no acute distress and well developed HEENT: Head: Yes normal to inspection, Yes normocephalic and Yes atraumatic Eyes: General: appearance normal, both eyes and all related structures Neck: Neck: Yes normal visual inspection, Yes full ROM, Yes no meningeal signs, Yes trachea midline and Yes supple Chest: Chest palpation & inspection: normal inspection of the chest Resp: Other: no appreciable overt rales, rhonchi, wheezing Effort & Inspection: normal respiratory effort Cardio: Palpation: normal PMI Rate: regular rate Rhythm: regular rhythm GI: Inspection: Yes normal to inspection, No Abdominal wall edema and No distended Palpation (GI): Soft to palpation, not firm, nontender, no guarding and not rigid Skin: General skin exam: no rashes or lesions noted Neuro: General: tone normal and no meningeal signs Extrem: Other: appreciable anasarca General: Yes normal to inspection, Yes full ROM and Yes capillary refill normal Psych: Other: unable to assess Objective Data Labs 01/18/25 04:42 01/18/25 04:42 Labs: Laboratory Results - last 24 hr 01/17/25 01/17/25 01/18/25 12:10 23:54 04:42 WBC 13.2 H RBC 4.95 Hgb 11.0 L Hct 36.1 L MCV 72.9 L MCH 22.2 L MCHC 30.5 L RDW 22.9 H Plt Count 259 MPV 9.8 Immature Gran % (Auto) 0.5 H Neut % (Auto) 80.4 H Lymph % (Auto) 10.1 L [place] % (Auto) 8.8 Eos % (Auto) 0.1 Baso % (Auto) 0.1 Lymph # (Auto) 1.3 [place] # (Auto) 1.2 Eos # (Auto) 0.0 Baso # (Auto) 0.0 Abs Immat Gran (auto) 0.07 H Absolute Neuts (auto) 10.6 H Absolute Nucleated RBC 0.000 Nucleated RBC % (auto) 0.0 VBG pH VBG pCO2 VBG pO2 VBG HCO3 VBG O2 Saturation VBG Base Excess Sodium 145 Potassium 3.1 L Chloride 104 Carbon Dioxide 30 H Anion Gap 14 BUN 26 H Creatinine 0.87 Estim Creat Clear Calc 150.5 Estimated GFR > 60 POC Glucose 131 H 102 Random Glucose 91 Calcium 8.7 Phosphorus 3.5 Magnesium 2.5 Total Bilirubin 0.5 AST 13 ALT 14 Alkaline Phosphatase 56 Total Protein 6.5 Albumin 3.7 01/18/25 04:49 WBC RBC Hgb Hct MCV MCH MCHC RDW Plt Count MPV Immature Gran % (Auto) Neut % (Auto) Lymph % (Auto) [place] % (Auto) Eos % (Auto) Baso % (Auto) Lymph # (Auto) [place] # (Auto) Eos # (Auto) Baso # (Auto) Abs Immat Gran (auto) Absolute Neuts (auto) Absolute Nucleated RBC Nucleated RBC % (auto) VBG pH 7.61 H* VBG pCO2 34 VBG pO2 83 VBG HCO3 34 H VBG O2 Saturation 98.0 VBG Base Excess 12.7 Sodium Potassium Chloride Carbon Dioxide Anion Gap BUN Creatinine Estim Creat Clear Calc Estimated GFR POC Glucose Random Glucose Calcium Phosphorus Magnesium Total Bilirubin AST ALT Alkaline Phosphatase Total Protein Albumin Microbiology Microbiology Results: Microbiology 01/15/25 03:30 Sputum - Suctioned Gram Stain - Final 01/15/25 03:30 Sputum - Suctioned Sputum Culture - Final 01/14/25 23:23 Blood - Venous Blood Culture - Preliminary No growth after 48 hours. 01/14/25 22:53 Blood - Venous Blood Culture - Preliminary No growth after 48 hours. Progress Note: A&P Assessment and plan (1) Acute and chronic respiratory failure with hypoxia: Status: Acute (2) Pneumonia: Status: Acute (3) COPD (chronic obstructive pulmonary disease): Status: Acute Plan Patient is a 59 Y M w/ polysubstance misuse, CHF, morbid obesity, ANA, COPD c/b chronic respiratory failure on 2 L NC, and prior DVT presenting to ED form assisted living on 01/14 w/ dyspnea found to be in acute on chronic respiratory failure; ED work-up suggestive of pneumonia; ICU course c/b worsening?acute on chronic respiratory failure, intubated 01/14 N: intubated, sedated w/ propofol, fentanyl gtts, wean as tolerated CV: septic shock, norepinephrine gtt, wean as tolerated; CHF R: acute on chronic respiratory failure, likely d/t pneumonia, intubated?01/14, wean as tolerated GI: no acute issues; tube feeds : c/f volume overload, furosemide gtt, to monitor renal indices/electrolytes H: no acute issues; prior DVTs, chemical DVT prophylaxis ID: c/f aspiration pneumonia, empiric zosyn, to change to levofloxacin E: to monitor hypo-/hyper-glycemia S: daily updates given to [facility] Quality Stroke Does the patient have a stroke diagnosis?: No VTE Prior VTE?: No VTE Risk Level:: Medical - moderate - high VTE Device Contraindication: N/A - Device Ordered VTE Drug Contraindication: N/A - Med Ordered
--- NOTE | 2025-01-18 10:43 | MHC.CLN ---
F/U PT REMAINS INTUBATED AND SEDATED CURRENTLY NPO TF ON HOLD SINCE 01/17 D/T PT COUGHING UP TF IN ORAL CAVITY AND ON FACE NOTED PT RECEIVING 1084KCALS FROM SEDATION IF TF TO RESUME; RECOMMEND PROMOTE AT MAX GOAL RATE 40ML/HR TO PROVIDE 960KCALS (2044 TOTAL KCALS WITH SEDATION; 24KCALS/KG), 60G PROTEIN, 805 ML FREE WATER FROM FORMULA MONITOR TOLERANCE AND LYTES FOLLOWING FOR DIET ADVANCEMENT
[2025-01-18] MEDS: fentaNYL citrate/NS 1,000 MCG/100 ML PLAST..BAG 5 MCG IVCONT (10:46)
--- NOTE | 2025-01-18 14:28 | MHC.CM.PN ---
Pt remains intubated in ICU: no plans to extubate. CM to follow
[2025-01-18] MEDS: Furosemide 200 MG in 0.9 % Sodium Chloride 80 ML IVCONT (17:30)
[2025-01-18 18:32] LABS: Anion Gap 15 (12-20); Blood Urea Nitrogen 25 mg/dL (9-16); Calcium 8.9 mg/dL (8.4-10.2); Carbon Dioxide 31 mmol/L (22-29); Chloride 101 mmol/L (96-108); Creatinine Clr Calc Pharmacy 148.8; Estimated Glomerular Filt Rate > 60; Magnesium 2.5 mg/dL (1.6-2.6); Potassium 3.5 mmol/L (3.3-5.1); Sodium 143 mmol/L (135-145)
[2025-01-19] VITALS (36 sets, daily range): BP systolic 96–169; BP diastolic 59–97; PULSE 55–110; RESP 15–20; TEMP 35–37.8; O2SAT 87–94; BMI 44.4
[2025-01-19] MEDS: Albuterol/Iprat 2.5/0.5MG 3 ML AMPUL.NEB INHALE ×4 (05:10→23:39)
[2025-01-19 05:21] LABS: VBG HCO3 34 mmol/L (22-26); VBG O2 % Saturation 97.0 %
[2025-01-19 05:30] LABS: Venous Blood Gas Refer to POC result
[2025-01-19 05:54] LABS: Hematocrit 38.8 % (42.0-52.0); Hemoglobin 11.6 g/dl (14.0-18.0); Imm Gran Abs Auto 0.04 X10*3/uL (0.00-0.03); Imm Gran Pct Auto 0.4 % (0.0-0.4); Lymphocytes Absolute Auto 1.8 X10*3/uL (1.2-4.9); MANUAL DIFF FLAG SCAN; Mean Corpuscular HGB Conc 29.9 g/dl (31.0-36.0); Mean Corpuscular Hemoglobin 21.9 pg (27.0-33.0); Mean Corpuscular Volume 73.2 fL (80.0-98.0); NRBC Abs Auto 0.000 X10*3/uL (0.0-0.012); NRBC Pct Auto 0.0 /100WBC (0.0-0.2); PLT CLUMP 1; Red Blood Count 5.30 X10*6/uL (4.60-5.80); SCAN SMEAR FLAG 1
[2025-01-19 06:00] LABS: Albumin Level 4.0 g/dL (3.5-5.0)
[2025-01-19] MEDS: fentaNYL citrate/NS 1,000 MCG/100 ML PLAST..BAG 5 MCG IVCONT (06:05)
[2025-01-19 06:15] LABS: Anion Gap 16 (12-20); Blood Urea Nitrogen 24 mg/dL (9-16); Calcium 9.0 mg/dL (8.4-10.2); Carbon Dioxide 30 mmol/L (22-29); Chloride 102 mmol/L (96-108); Creatinine Clr Calc Pharmacy 155.7; Estimated Glomerular Filt Rate > 60; Magnesium 2.6 mg/dL (1.6-2.6); Potassium 3.1 mmol/L (3.3-5.1); Sodium 145 mmol/L (135-145)
[2025-01-19 06:25] LABS: Platelet Count 218 X10*3/uL (160-400); White Blood Count 10.8 X10*3/uL (4.8-10.8)
[2025-01-19] MEDS: Potassium Chloride Packet 20 MEQ PACKET 40 MEQ PO (08:26)
[2025-01-19] MEDS: Chlorhexidine Gluc Oral Rinse 15 ML MOUTHWASH BUCCAL ×2 (08:26→20:10)
--- NOTE | 2025-01-19 08:47 | P.PNCC_ITS ---
Subjective Subjective Date of Service: 01/19/25 Interval History: no significant overnight events Critical Care Time (minutes): 60 Physical Exam 2 Vital Signs: Vital Signs: Last Vital Signs Temp 99.7 F 01/19/25 08:00 Pulse 65 01/19/25 08:00 Resp 20 01/19/25 08:00 BP 119/65 01/19/25 08:00 Pulse Ox 92 01/19/25 08:00 O2 Del Method Mechanical Ventil ation 01/19/25 08:00 FiO2 90 01/19/25 08:07 BMI result Body Mass Index 44.4 Const: Other: intubated, sedated; no appreciable spontaneous movements General: no acute distress and well developed HEENT: Head: Yes normal to inspection, Yes normocephalic and Yes atraumatic Eyes: General: appearance normal, both eyes and all related structures Neck: Neck: Yes normal visual inspection, Yes full ROM, Yes no meningeal signs, Yes trachea midline and Yes supple Chest: Chest palpation & inspection: normal inspection of the chest Resp: Other: no appreciable overt rales, rhonchi, wheezing Effort & Inspection: normal respiratory effort Cardio: Rate: regular rate Rhythm: regular rhythm GI: Inspection: Yes normal to inspection, No Abdominal wall edema and No distended Palpation (GI): Soft to palpation, not firm, nontender, no guarding and not rigid Skin: General skin exam: no rashes or lesions noted Neuro: General: tone normal and no meningeal signs Extrem: Other: appreciable 1+ pitting edema to bilateral thighs General: Yes normal to inspection, Yes full ROM and Yes capillary refill normal Psych: Other: unable to assess Objective Data Labs 01/19/25 05:13 01/19/25 05:13 Labs: Laboratory Results - last 24 hr 01/18/25 01/19/25 01/19/25 18:07 05:13 05:17 WBC 10.8 RBC 5.30 Hgb 11.6 L Hct 38.8 L MCV 73.2 L MCH 21.9 L MCHC 29.9 L RDW 22.8 H Plt Count 218 MPV Not Reportable Immature Gran % (Auto) 0.4 Neut % (Auto) 72.2 Lymph % (Auto) 16.5 L [place] % (Auto) 10.5 Eos % (Auto) 0.3 Baso % (Auto) 0.1 Lymph # (Auto) 1.8 [place] # (Auto) 1.1 Eos # (Auto) 0.0 Baso # (Auto) 0.0 Abs Immat Gran (auto) 0.04 H Absolute Neuts (auto) 7.8 Absolute Nucleated RBC 0.000 Nucleated RBC % (auto) 0.0 Smear Tech's Comments VERIFIED VBG pH 7.60 H* VBG pCO2 34 VBG pO2 85 VBG HCO3 34 H VBG O2 Saturation 97.0 VBG Base Excess 12.5 Sodium 143 145 Potassium 3.5 3.1 L Chloride 101 102 Carbon Dioxide 31 H 30 H Anion Gap 15 16 BUN 25 H 24 H Creatinine 0.87 0.82 Estim Creat Clear Calc 148.8 155.7 Estimated GFR > 60 > 60 Random Glucose 112 85 Calcium 8.9 9.0 Phosphorus 4.0 3.5 Magnesium 2.5 2.6 Albumin 4.0 Microbiology Microbiology Results: Microbiology 01/15/25 03:30 Sputum - Suctioned Gram Stain - Final 01/15/25 03:30 Sputum - Suctioned Sputum Culture - Final 01/14/25 23:23 Blood - Venous Blood Culture - Preliminary No growth after 48 hours. 01/14/25 22:53 Blood - Venous Blood Culture - Preliminary No growth after 48 hours. Progress Note: A&P Assessment and plan (1) Acute and chronic respiratory failure: Status: Acute (2) Pneumonia: Status: Acute Plan Patient is a 59 Y M w/ polysubstance misuse, CHF, morbid obesity, ANA, COPD c/b chronic respiratory failure on 2 L NC, and prior DVT presenting to ED form assisted living on 01/14 w/ dyspnea found to be in acute on chronic respiratory failure; ED work-up suggestive of pneumonia; ICU course c/b worsening?acute on chronic respiratory failure, intubated 01/14 N: intubated, sedated w/ propofol, fentanyl gtts, wean as tolerated CV: no acute issues; CHF R: acute on chronic respiratory failure, likely d/t pneumonia, intubated?01/14, wean as tolerated GI: no acute issues; tube feeds : c/f volume overload, furosemide gtt, to monitor renal indices/electrolytes H: no acute issues; prior DVTs, chemical DVT prophylaxis ID: c/f aspiration pneumonia, empiric zosyn, to change to levofloxacin E: to monitor hypo-/hyper-glycemia S: daily updates given to [facility] Quality Stroke Does the patient have a stroke diagnosis?: No VTE Prior VTE?: No VTE Risk Level:: Medical - moderate - high VTE Device Contraindication: N/A - Device Ordered VTE Drug Contraindication: N/A - Med Ordered
[2025-01-19] MEDS: Furosemide 200 MG in 0.9 % Sodium Chloride 80 ML IVCONT (13:01)
[2025-01-19 17:33] LABS: Glucose, Whole Blood 130 mg/dL (60-115)
--- NOTE | 2025-01-19 17:59 | PC.NURSE ---
Assumed care of patient 0700. Patient is intubated and sedated with a high amount of mechanical ventillator support. ACPC RR 20/PC setting 18/ PEEP 12.0/FiO2 90%. Per MD decreased sedation for neurological checks. Patient became restless, attempting to remove ETT, moving legs OOB. Patient does make eye contact on command to look at me, and follows some commands to wiggle feet. Patient family at bedside approx 11:00AM-12:00. Per MD, increased sedation to RASS goal -2 to -3 per orders. Patient continued to have restlessness, high RR, moving extremities nonpurposefully. FiO2 requirements increased. Vent settings now ACPC RR 18/ PC setting 20/ PEEP 12.0/ FiO2 100%. New CXR captured at beside. Lasix gtt continues at 10mg/hr. High fall precautions in place, repositioned Q2HRS in high fowlers position.
[2025-01-19 18:31] LABS: Anion Gap 16 (12-20); Blood Urea Nitrogen 29 mg/dL (9-16); Calcium 9.2 mg/dL (8.4-10.2); Carbon Dioxide 32 mmol/L (22-29); Chloride 101 mmol/L (96-108); Creatinine Clr Calc Pharmacy 134.4; Estimated Glomerular Filt Rate > 60; Magnesium 2.7 mg/dL (1.6-2.6); Potassium 3.9 mmol/L (3.3-5.1); Sodium 145 mmol/L (135-145)
[2025-01-19] MEDS: fentaNYL citrate/NS 1,000 MCG/100 ML PLAST..BAG 12.5 MCG IVCONT (19:49)
[2025-01-20] VITALS (45 sets, daily range): BP systolic 94–126; BP diastolic 55–71; PULSE 56–76; RESP 17–20; TEMP 34.8–37.7; O2SAT 81–93; BMI 43.7
[2025-01-20] MEDS: fentaNYL citrate/NS 1,000 MCG/100 ML PLAST..BAG 12.5 MCG IVCONT (03:55)
--- NOTE | 2025-01-20 04:31 | PC.NURSE ---
CARE ASSUMED 7PM...REMAINS INTUBATED...SEDATED WITH PROPOFOL/FENTANYL PER JUN....PCV VENT SUPPORT...AC RATE 18/IP 20/FIO2 100%/PEEP 12....Ve 11-13 l/m OVERNIGHT..IP WEANED TO 15CM BY RT 04:15...Ve REMAINS 10.4 L/M AND SAO2 90-91%...CXR RESULTS REVIEWED WITH PROVIDER AT SHIFT CHANGE...UNABLE TO AUSCULTATE OG-TUBE..OG-TUBE PALPABLY NOTED TO BE COILDED IN OROPHARYNX...NEW OG-TUBE PLACED WITH (+) AUSCULTATION AND CONFIRMED BY FOLLOW UP CXR PER PROVIDER..PROMOTE TUBE FEED STARTED 10 CC/HR AND ADVANCED TO 20 CC/HR AT 4AM PER PROVIDER..CONTINUES LASIX DRIP..CASTAÑEDA DRAINING PALE YELLOW URINE...NSR/SINUS ARRHYTHMIA WITH OCCASIONAL PAC'S
[2025-01-20 04:53] LABS: VBG HCO3 33 mmol/L (22-26); VBG O2 % Saturation 96.0 %
[2025-01-20] MEDS: Albuterol/Iprat 2.5/0.5MG 3 ML AMPUL.NEB INHALE ×4 (05:21→23:34)
[2025-01-20 05:31] LABS: MANUAL DIFF FLAG NO
[2025-01-20 05:36] LABS: Hematocrit 39.1 % (42.0-52.0); Hemoglobin 11.6 g/dl (14.0-18.0); Imm Gran Abs Auto 0.05 X10*3/uL (0.00-0.03); Imm Gran Pct Auto 0.5 % (0.0-0.4); Lymphocytes Absolute Auto 1.8 X10*3/uL (1.2-4.9); Mean Corpuscular HGB Conc 29.7 g/dl (31.0-36.0); Mean Corpuscular Hemoglobin 21.8 pg (27.0-33.0); Mean Corpuscular Volume 73.5 fL (80.0-98.0); NRBC Abs Auto 0.000 X10*3/uL (0.0-0.012); NRBC Pct Auto 0.0 /100WBC (0.0-0.2); Platelet Count 253 X10*3/uL (160-400); Red Blood Count 5.32 X10*6/uL (4.60-5.80); White Blood Count 10.9 X10*3/uL (4.8-10.8)
[2025-01-20 05:41] LABS: Venous Blood Gas Refer to POC result
[2025-01-20 06:00] LABS: Anion Gap 18 (12-20); Blood Urea Nitrogen 30 mg/dL (9-16); Calcium 9.2 mg/dL (8.4-10.2); Carbon Dioxide 28 mmol/L (22-29); Chloride 103 mmol/L (96-108); Creatinine Clr Calc Pharmacy 137.5; Estimated Glomerular Filt Rate > 60; Magnesium 2.6 mg/dL (1.6-2.6); Potassium 3.1 mmol/L (3.3-5.1); Sodium 146 mmol/L (135-145)
[2025-01-20] MEDS: Potassium Chloride Packet 20 MEQ PACKET 40 MEQ PO (07:26)
[2025-01-20] MEDS: Chlorhexidine Gluc Oral Rinse 15 ML MOUTHWASH BUCCAL ×3 (07:26→20:41)
--- NOTE | 2025-01-20 08:38 | PM.CCPN ---
Subjective Subjective Date of Service: 01/20/25 Interval History: no significant overnight events; persistent critical and guarded clinical status Critical Care Time (minutes): 60 Physical Exam Vital Signs: Vital Signs: Last Vital Signs Temp 99.5 F 01/20/25 08:00 Pulse 67 01/20/25 08:00 Resp 18 01/20/25 08:00 BP 115/57 L 01/20/25 08:00 Pulse Ox 92 01/20/25 08:00 O2 Del Method Mechanical Ventil ation 01/20/25 08:00 FiO2 90 01/20/25 08:00 BMI result Body Mass Index 43.7 Const: Other: intubated, sedated; no appreciable spontaneous movements General: no acute distress and well developed HEENT: Head: Yes normal to inspection, Yes normocephalic and Yes atraumatic Eyes: General: appearance normal, both eyes and all related structures Neck: Neck: Yes normal visual inspection, Yes full ROM, Yes no meningeal signs, Yes trachea midline and Yes supple Chest: Chest palpation & inspection: normal inspection of the chest Resp: Other: no appreciable overt rales, rhonchi, wheezing Effort & Inspection: normal respiratory effort Cardio: Rate: regular rate Rhythm: regular rhythm GI: Inspection: Yes normal to inspection, No Abdominal wall edema and No distended Palpation (GI): Soft to palpation, not firm, nontender, no guarding and not rigid Skin: General skin exam: no rashes or lesions noted Neuro: General: tone normal and no meningeal signs Extrem: Other: appreciable non-pitting edema throughout General: Yes full ROM and Yes capillary refill normal Psych: Other: unable to assess Objective Data Labs 01/20/25 04:48 01/20/25 04:48 Labs: Laboratory Results - last 24 hr 01/19/25 01/19/25 01/20/25 17:30 17:59 04:48 WBC 10.9 H RBC 5.32 Hgb 11.6 L Hct 39.1 L MCV 73.5 L MCH 21.8 L MCHC 29.7 L RDW 22.3 H Plt Count 253 MPV 10.1 Immature Gran % (Auto) 0.5 H Neut % (Auto) 71.4 Lymph % (Auto) 16.5 L [place] % (Auto) 10.9 Eos % (Auto) 0.6 Baso % (Auto) 0.1 Lymph # (Auto) 1.8 [place] # (Auto) 1.2 Eos # (Auto) 0.1 Baso # (Auto) 0.0 Abs Immat Gran (auto) 0.05 H Absolute Neuts (auto) 7.8 Absolute Nucleated RBC 0.000 Nucleated RBC % (auto) 0.0 VBG pH VBG pCO2 VBG pO2 VBG HCO3 VBG O2 Saturation VBG Base Excess Sodium 145 146 H Potassium 3.9 D 3.1 L D Chloride 101 103 Carbon Dioxide 32 H 28 Anion Gap 16 18 BUN 29 H 30 H Creatinine 0.95 0.92 Estim Creat Clear Calc 134.4 137.5 Estimated GFR > 60 > 60 POC Glucose 130 H Random Glucose 116 H 86 Calcium 9.2 9.2 Phosphorus 5.4 H 3.4 Magnesium 2.7 H 2.6 01/20/25 04:50 WBC RBC Hgb Hct MCV MCH MCHC RDW Plt Count MPV Immature Gran % (Auto) Neut % (Auto) Lymph % (Auto) [place] % (Auto) Eos % (Auto) Baso % (Auto) Lymph # (Auto) [place] # (Auto) Eos # (Auto) Baso # (Auto) Abs Immat Gran (auto) Absolute Neuts (auto) Absolute Nucleated RBC Nucleated RBC % (auto) VBG pH 7.55 H VBG pCO2 37 VBG pO2 80 VBG HCO3 33 H VBG O2 Saturation 96.0 VBG Base Excess 10.4 Sodium Potassium Chloride Carbon Dioxide Anion Gap BUN Creatinine Estim Creat Clear Calc Estimated GFR POC Glucose Random Glucose Calcium Phosphorus Magnesium Microbiology Microbiology Results: Microbiology 01/14/25 23:23 Blood - Venous Blood Culture - Final No growth after 5 days. 01/14/25 22:53 Blood - Venous Blood Culture - Final No growth after 5 days. 01/15/25 03:30 Sputum - Suctioned Gram Stain - Final 01/15/25 03:30 Sputum - Suctioned Sputum Culture - Final Progress Note: A&P Assessment and plan (1) Acute and chronic respiratory failure with hypoxia: Status: Acute (2) Pneumonia: Status: Acute (3) COPD (chronic obstructive pulmonary disease): Status: Acute (4) ANA (obstructive sleep apnea): Status: Acute Plan Patient is a 59 Y M w/ polysubstance misuse, CHF, morbid obesity, ANA, COPD c/b chronic respiratory failure on 2 L NC, and prior DVT presenting to ED form assisted living on 01/14 w/ dyspnea found to be in acute on chronic respiratory failure; ED work-up suggestive of pneumonia; ICU course c/b worsening?acute on chronic respiratory failure, intubated 01/14 N: intubated, sedated w/ propofol, fentanyl gtts, wean as tolerated CV: no acute issues; CHF R: acute on chronic respiratory failure, c/b overt ARDS likely d/t pneumonia, intubated?01/14, wean as tolerated GI: no acute issues; tube feeds : c/f volume overload, furosemide gtt, to monitor renal indices/electrolytes H: no acute issues; prior DVTs, chemical DVT prophylaxis ID: c/f aspiration pneumonia, levofloxacin E: to monitor hypo-/hyper-glycemia S: daily updates given to [facility] Quality Stroke Does the patient have a stroke diagnosis?: No VTE Prior VTE?: No VTE Risk Level:: Medical - moderate - high VTE Device Contraindication: N/A - Device Ordered VTE Drug Contraindication: N/A - Med Ordered
[2025-01-20] MEDS: Furosemide 200 MG in 0.9 % Sodium Chloride 80 ML IVCONT ×2 (09:10→23:11)
--- NOTE | 2025-01-20 09:37 | MHC.CLN ---
F/U PT REMAINS INTUBATED AND SEDATED TF CURRENTLY RUNNING AT 20ML/HR RECOMMEND PROMOTE AT MAX GOAL RATE 40ML/HR TO PROVIDE 960KCALS (2044 TOTAL KCALS WITH SEDATION; 24KCALS/KG), 60G PROTEIN, 805 ML FREE WATER FROM FORMULA START 240ML FREE WATER FLUSHES Q 4 HRS TO PROVIDE 2245ML TOTAL FREE WATER FROM FORMULA AND FLUSHES (26ML/KG) MONITOR TOLERANCE AND LYTES
--- NOTE | 2025-01-20 10:27 | W.MHC.ACPN ---
Advanced Care Planning Note Advanced Care Planning Note Discussed with: family member(s) Time spent (in minutes): 30 Narrative: I met Mr. Castro's sister at the bedside and offered updates and clarifications; Ms. Castro wanted to discuss DNR, as she stated she had changed their mother's code status to DNR when she was critically ill, citing she did not want her family members to undergo the suffering associated with CPR; after, Mrs. Castro felt it was appropriate to change Mr. Theodores code status to DNR at this juncture; we also discussed comfort-focused care; Mrs. Castro felt that it may be appropriate to transition Mr. Castro in the near future given his persistent critical and guarded illness, but would like to discuss with remaining family Problems Discussed (1) Acute and chronic respiratory failure with hypoxia: (2) Pneumonia: (3) COPD (chronic obstructive pulmonary disease): (4) ANA (obstructive sleep apnea):
[2025-01-20] MEDS: fentaNYL citrate/NS 1,000 MCG/100 ML PLAST..BAG 7.5 MCG IVCONT (11:33)
[2025-01-20 11:43] LABS: Glucose, Whole Blood 152 mg/dL (60-115)
--- NOTE | 2025-01-20 13:34 | MHC.CM.PN ---
PT REMAINS IN ICU ON VENTILATORY SUPPORT. ADVANCED CARE PLANNING WITH MD/ FAMILY. CODE STATUS CHANGED TO DNR. CM WILL CONTINUE TO FOLLOW.
[2025-01-20 16:26] LABS: ABG HCO3 35 mmol/L (22-26); ABG O2 % Saturation 96.0 %
[2025-01-20 18:26] LABS: Anion Gap 15 (12-20); Blood Urea Nitrogen 32 mg/dL (9-16); Calcium 9.3 mg/dL (8.4-10.2); Carbon Dioxide 33 mmol/L (22-29); Chloride 104 mmol/L (96-108); Creatinine Clr Calc Pharmacy 139.0; Estimated Glomerular Filt Rate > 60; Magnesium 2.7 mg/dL (1.6-2.6); Potassium 3.8 mmol/L (3.3-5.1); Sodium 148 mmol/L (135-145)
--- NOTE | 2025-01-20 18:38 | PC.NURSE ---
Assumed care of patient 0700. Family at bedside sister Ira and relative Kimani. Per Ira, do not allow visitors that are not family members. Family okay to visit while patient is intubated/sedated include Ira Castro (sister), Kimani Castro, Brad Castro, Tobi Box (Ira's spouse). Ira is concerned about friends calling for health information. Family informed that we can provide updates via phone to Ira only per patient's medical record contact list. This information will be communicated shift to shift. No spontaneous awakening trial this shift due to decompensated status/hypoxia and restlessness in previous 24 hours with SAT. Patient vent settings RR 18/ PC setting 12 / PEEP 12.0/ FiO2 80%. ABG obtained approx 16:00. Patient given Miralax prn for no bowel movement so far this hospital stay. Effectiveness pending. Patient tolerating tube feeds - Promote advanced to goal rate 40 ml/hr.
[2025-01-20] MEDS: Albuterol Sulfate (0.083%) 2.5 MG/3 ML VIAL.NEB INHALE (21:32)
[2025-01-20] MEDS: fentaNYL citrate/NS 1,000 MCG/100 ML PLAST..BAG 10 MCG IVCONT (23:13)
[2025-01-20] MEDS: 0.9 % Sodium Chloride Flush 3 ML SYRINGE IVFLUSH (23:16)
[2025-01-21] VITALS (55 sets, daily range): BP systolic 86–170; BP diastolic 50–92; PULSE 64–90; RESP 18–20; TEMP 34.4–38.1; O2SAT 82–93; BMI 43.3
[2025-01-21 00:11] LABS: ABG HCO3 37 mmol/L (22-26); ABG O2 % Saturation 82.0 %
[2025-01-21 00:16] LABS: ABG Refer to POC result
[2025-01-21] MEDS: Albuterol/Iprat 2.5/0.5MG 3 ML AMPUL.NEB INHALE ×5 (05:09→23:10)
[2025-01-21 05:39] LABS: VBG HCO3 40 mmol/L (22-26); VBG O2 % Saturation 95.0 %
[2025-01-21 06:00] LABS: MANUAL DIFF FLAG NO
[2025-01-21 06:08] LABS: Hematocrit 41.4 % (42.0-52.0); Hemoglobin 11.7 g/dl (14.0-18.0); Imm Gran Abs Auto 0.09 X10*3/uL (0.00-0.03); Imm Gran Pct Auto 0.8 % (0.0-0.4); Lymphocytes Absolute Auto 1.4 X10*3/uL (1.2-4.9); Mean Corpuscular HGB Conc 28.3 g/dl (31.0-36.0); Mean Corpuscular Hemoglobin 21.7 pg (27.0-33.0); Mean Corpuscular Volume 77.0 fL (80.0-98.0); NRBC Abs Auto 0.000 X10*3/uL (0.0-0.012); NRBC Pct Auto 0.0 /100WBC (0.0-0.2); Platelet Count 238 X10*3/uL (160-400); Red Blood Count 5.38 X10*6/uL (4.60-5.80); White Blood Count 10.6 X10*3/uL (4.8-10.8)
--- NOTE | 2025-01-21 06:20 | PC.NURSE ---
CARE ASSUMED 7PM..PER SHIFT REPORT CASTAÑEDA REMOVED 4:30PM..CONTINUES LASIX DRIP 10 MG/HR..PURWIK WITHOUT ANY VOID ...BLADDER SCANNED 7PM FOR 375ML...REMAINED W/O OUTPUT...BLADDER SCANNED 9:30PM FOR 928ML..STRAIGHT CATH'D PER PROVIDER FOR 1000ML AT 10PM...REMAINED W/O OUTPUT OVERNIGHT...01:30 SCANNED FOR 577ML AND STRAIGHT CATH'D FOR 525ML....05:00 NO OUTPUT..SCANNED FOR 577ML AND CASTAÑEDA RE-INSERTED PER PROVIDER FOR 525ML...INITIALLY ON PCV VENT SUPPORT....RATE 18/IP 12/FIO2 80% AND PEEP 12....DECREASED Ve and SAO2...IP TO 14 AND FIO2 TO 100%...SAO2 REMAINED 85-86..RT PRESENT AND PLACED PATIENT ON VCV VENT SUPPORT..AC 18/TV 490/FIO2 100%/PEEP 12...SAO2 REMAINED 87-86%..PEEP INCREASED TO 14 BY RT AND PROVIDER..SAO2 GRADUALLY IMPROVED TO 91-92%...LEVOPHED DRIP RESTARTED AT LOW DOSE PER PROVIDER FOR MARGINAL BP AND TO BE ABLE TO MAINTAIN LASIX DRIP
[2025-01-21 06:23] LABS: Albumin Level 4.0 g/dL (3.5-5.0); Anion Gap 14 (12-20); Blood Urea Nitrogen 36 mg/dL (9-16); Calcium 9.3 mg/dL (8.4-10.2); Carbon Dioxide 34 mmol/L (22-29); Chloride 104 mmol/L (96-108); Creatinine Clr Calc Pharmacy 133.9; Estimated Glomerular Filt Rate > 60; Magnesium 2.9 mg/dL (1.6-2.6); Potassium 3.3 mmol/L (3.3-5.1); Sodium 149 mmol/L (135-145)
[2025-01-21 06:41] LABS: Venous Blood Gas Refer to POC result
[2025-01-21] MEDS: Chlorhexidine Gluc Oral Rinse 15 ML MOUTHWASH BUCCAL ×3 (07:33→20:47)
[2025-01-21] MEDS: Potassium Chloride/H20 10 MEQ/100 ML PIGGYBACK 100 MEQ IV ×4 (07:33→13:24)
[2025-01-21] MEDS: 0.9 % Sodium Chloride Flush 3 ML SYRINGE IVFLUSH ×2 (07:34→15:51)
--- NOTE | 2025-01-21 08:40 | PM.CCPN ---
Subjective Subjective Date of Service: 01/21/25 Interval History: no significant overnight events; persistent hypoxic respiratory failure Critical Care Time (minutes): 60 Physical Exam Vital Signs: Vital Signs: Last Vital Signs Temp 99.7 F 01/21/25 07:00 Pulse 74 01/21/25 07:59 Resp 18 01/21/25 07:59 BP 130/74 01/21/25 07:59 Pulse Ox 92 01/21/25 08:00 O2 Del Method Mechanical Ventil ation 01/21/25 07:00 FiO2 100 01/21/25 08:00 BMI result Body Mass Index 43.3 Const: Other: intubated, sedated; no appreciable spontaneous movements; appreciable morbid obesity General: comfortable and no acute distress HEENT: Head: Yes normal to inspection, Yes normocephalic and Yes atraumatic Eyes: General: appearance normal, both eyes and all related structures Neck: Neck: Yes normal visual inspection, Yes full ROM, Yes no meningeal signs, Yes trachea midline and Yes supple Chest: Chest palpation & inspection: normal inspection of the chest Resp: Other: appreciable diffuse rhonchi; no appreciable overt rales, wheezing Effort & Inspection: normal respiratory effort GI: Inspection: Yes normal to inspection, No Abdominal wall edema and No distended Palpation (GI): Soft to palpation, not firm, nontender, no guarding and not rigid Skin: General skin exam: no rashes or lesions noted Neuro: General: tone normal and no meningeal signs Extrem: Other: appreciable 2+ pitting edema to bilateral thighs General: Yes normal to inspection, Yes full ROM and Yes capillary refill normal Psych: Other: unable to asssess Objective Data Labs 01/21/25 05:23 01/21/25 05:23 Labs: Laboratory Results - last 24 hr 01/20/25 01/20/25 01/20/25 11:34 16:21 17:52 WBC RBC Hgb Hct MCV MCH MCHC RDW Plt Count MPV Immature Gran % (Auto) Neut % (Auto) Lymph % (Auto) [place] % (Auto) Eos % (Auto) Baso % (Auto) Lymph # (Auto) [place] # (Auto) Eos # (Auto) Baso # (Auto) Abs Immat Gran (auto) Absolute Neuts (auto) Absolute Nucleated RBC Nucleated RBC % (auto) O2 Saturation 96.0 ABG pH at Pt Temp 7.45 ABG pCO2 at Pt Temp 51 H ABG pO2 at Pt Temp 88 ABG HCO3 35 H ABG Base Excess (Actual) 9.9 VBG pH VBG pCO2 VBG pO2 VBG HCO3 VBG O2 Saturation VBG Base Excess Sodium 148 H Potassium 3.8 D Chloride 104 Carbon Dioxide 33 H Anion Gap 15 BUN 32 H Creatinine 0.91 Estim Creat Clear Calc 139.0 Estimated GFR > 60 POC Glucose 152 H Random Glucose 123 H Calcium 9.3 Phosphorus 5.3 H Magnesium 2.7 H Albumin 01/21/25 01/21/25 01/21/25 00:07 05:23 05:33 WBC 10.6 RBC 5.38 Hgb 11.7 L Hct 41.4 L MCV 77.0 L MCH 21.7 L MCHC 28.3 L RDW 22.0 H Plt Count 238 MPV 10.5 Immature Gran % (Auto) 0.8 H Neut % (Auto) 73.3 H Lymph % (Auto) 13.5 L [place] % (Auto) 11.2 H Eos % (Auto) 1.1 Baso % (Auto) 0.1 Lymph # (Auto) 1.4 [place] # (Auto) 1.2 Eos # (Auto) 0.1 Baso # (Auto) 0.0 Abs Immat Gran (auto) 0.09 H Absolute Neuts (auto) 7.8 Absolute Nucleated RBC 0.000 Nucleated RBC % (auto) 0.0 O2 Saturation 82.0 ABG pH at Pt Temp 7.42 ABG pCO2 at Pt Temp 56 H ABG pO2 at Pt Temp 60 L ABG HCO3 37 H ABG Base Excess (Actual) 10.8 VBG pH 7.45 H VBG pCO2 57 VBG pO2 83 VBG HCO3 40 H VBG O2 Saturation 95.0 VBG Base Excess 13.9 Sodium 149 H Potassium 3.3 Chloride 104 Carbon Dioxide 34 H Anion Gap 14 BUN 36 H Creatinine 0.94 Estim Creat Clear Calc 133.9 Estimated GFR > 60 POC Glucose Random Glucose 96 Calcium 9.3 Phosphorus 4.8 H Magnesium 2.9 H Albumin 4.0 Microbiology Microbiology Results: Microbiology 01/14/25 23:23 Blood - Venous Blood Culture - Final No growth after 5 days. 01/14/25 22:53 Blood - Venous Blood Culture - Final No growth after 5 days. 01/15/25 03:30 Sputum - Suctioned Gram Stain - Final 01/15/25 03:30 Sputum - Suctioned Sputum Culture - Final Progress Note: A&P Assessment and plan (1) Acute and chronic respiratory failure: Status: Acute (2) Pneumonia: Status: Acute (3) COPD (chronic obstructive pulmonary disease): Status: Acute (4) ANA (obstructive sleep apnea): Status: Acute Plan Patient is a 59 Y M w/ polysubstance misuse, CHF, morbid obesity, ANA, COPD c/b chronic respiratory failure on 2 L NC, and prior DVT presenting to ED form assisted living on 01/14 w/ dyspnea found to be in acute on chronic respiratory failure; ED work-up suggestive of pneumonia; ICU course c/b worsening?acute on chronic respiratory failure, intubated 01/14 N: intubated, sedated w/ propofol, fentanyl gtts, wean as tolerated CV: no acute issues; CHF R: acute on chronic respiratory failure, c/b overt ARDS likely d/t pneumonia, intubated?01/14, wean as tolerated GI: no acute issues; tube feeds : c/f volume overload, furosemide gtt, to monitor renal indices/electrolytes H: no acute issues; prior DVTs, chemical DVT prophylaxis ID: c/f aspiration pneumonia, levofloxacin E: to monitor hypo-/hyper-glycemia S: daily updates given to [facility] Stroke Does the patient have a stroke diagnosis?: No VTE Prior VTE?: No VTE Risk Level:: Medical - moderate - high VTE Device Contraindication: N/A - Device Ordered VTE Drug Contraindication: N/A - Med Ordered
[2025-01-21] MEDS: fentaNYL citrate/NS 1,000 MCG/100 ML PLAST..BAG 10 MCG IVCONT ×2 (09:39→19:21)
[2025-01-21] MEDS: iohexoL 350 MG/ML 100 ML INFUS..BTL IV (11:46)
[2025-01-21 12:05] LABS: Hematocrit 43.9 % (42.0-52.0); Hemoglobin 12.4 g/dl (14.0-18.0); Mean Corpuscular HGB Conc 28.2 g/dl (31.0-36.0); Mean Corpuscular Hemoglobin 21.8 pg (27.0-33.0); Mean Corpuscular Volume 77.3 fL (80.0-98.0); NRBC Abs Auto 0.000 X10*3/uL (0.0-0.012); NRBC Pct Auto 0.0 /100WBC (0.0-0.2); Platelet Count 264 X10*3/uL (160-400); Red Blood Count 5.68 X10*6/uL (4.60-5.80); White Blood Count 15.0 X10*3/uL (4.8-10.8)
[2025-01-21 12:09] LABS: INTERNATIONAL NORM RATIO 1.0 (0.9-1.1); Prothrombin Time 11.4 SEC (10.9-12.4)
[2025-01-21 12:11] LABS: Partial Thromboplastin Time 25.6 SEC (26.7-34.1)
--- NOTE | 2025-01-21 14:49 | MHC.CM.PN ---
Pt continues on vent support without strong clinical progress being made. Pt changed to DNR - sister may opt for [employer] focused care in the next few days if pt continues to decline. Pt from [facility] in [place]: no updates sent today. CM to follow
--- NOTE | 2025-01-21 16:27 | PC.NURSE ---
Assumed care at 0700. Patient on ACVC+ settings, tolerating well. FiO2 100% O2 sat averaging around 91% Moderate amount of thick cream colored sputum noted. Sample sent to lab. CT chest completed. Receiving IV Levaquin, IV Solumedrol and nebs. Lasix drip with good urine output via andrade catheter. Andrade for retention. On Propofol and Fentanyl for sedation. Pt opens eyes but does not track. Right arm movement noted. Does not follow commands. Withdraws from pain. + cough no gag. Levophed drip titrated off. campus monitor Sinus Arrhythmia. 40 meq KCL replacement given. Tolerating tube feeds at goal via OG tube. Skin intact. Foam dressing to coccyx for protection. Compression boots and heel protector boots on. Turned and repositioned. Receiving Lovenox. Sister Ira updated with plan. Will continue to monitor and make MD aware of any changes. See flowsheet for further assessment documentation.
[2025-01-21] MEDS: Furosemide 200 MG in 0.9 % Sodium Chloride 80 ML IVCONT (17:45)
[2025-01-21 18:18] LABS: Anion Gap 12 (12-20); Blood Urea Nitrogen 35 mg/dL (9-16); Calcium 9.5 mg/dL (8.4-10.2); Carbon Dioxide 37 mmol/L (22-29); Chloride 105 mmol/L (96-108); Creatinine Clr Calc Pharmacy 132.5; Estimated Glomerular Filt Rate > 60; Magnesium 2.9 mg/dL (1.6-2.6); Potassium 4.0 mmol/L (3.3-5.1); Sodium 150 mmol/L (135-145)
[2025-01-22] VITALS (39 sets, daily range): BP systolic 91–127; BP diastolic 45–73; PULSE 68–96; RESP 15–21; TEMP 34.4–38.4; O2SAT 91–97; BMI 42.4
[2025-01-22] MEDS: 0.9 % Sodium Chloride Flush 3 ML SYRINGE IVFLUSH (00:27)
[2025-01-22] MEDS: Albuterol/Iprat 2.5/0.5MG 3 ML AMPUL.NEB INHALE ×6 (03:33→23:21)
[2025-01-22] MEDS: fentaNYL citrate/NS 1,000 MCG/100 ML PLAST..BAG 10 MCG IVCONT ×3 (04:08→23:48)
[2025-01-22 05:16] LABS: VBG HCO3 42 mmol/L (22-26); VBG O2 % Saturation 92.0 %
[2025-01-22 05:17] LABS: Venous Blood Gas Refer to POC result
[2025-01-22 05:32] LABS: Hematocrit 45.4 % (42.0-52.0); Hemoglobin 12.4 g/dl (14.0-18.0); Imm Gran Abs Auto 0.10 X10*3/uL (0.00-0.03); Imm Gran Pct Auto 0.6 % (0.0-0.4); Lymphocytes Absolute Auto 1.5 X10*3/uL (1.2-4.9); MANUAL DIFF FLAG SCAN; Mean Corpuscular HGB Conc 27.3 g/dl (31.0-36.0); Mean Corpuscular Hemoglobin 21.4 pg (27.0-33.0); Mean Corpuscular Volume 78.3 fL (80.0-98.0); NRBC Abs Auto 0.000 X10*3/uL (0.0-0.012); NRBC Pct Auto 0.0 /100WBC (0.0-0.2); Platelet Count 283 X10*3/uL (160-400); Red Blood Count 5.80 X10*6/uL (4.60-5.80); SCAN SMEAR FLAG 1; White Blood Count 15.5 X10*3/uL (4.8-10.8)
[2025-01-22 05:52] LABS: Albumin Level 4.3 g/dL (3.5-5.0); Anion Gap 15 (12-20); Blood Urea Nitrogen 37 mg/dL (9-16); Calcium 9.5 mg/dL (8.4-10.2); Carbon Dioxide 34 mmol/L (22-29); Chloride 105 mmol/L (96-108); Creatinine Clr Calc Pharmacy 138.2; Estimated Glomerular Filt Rate > 60; Magnesium 2.9 mg/dL (1.6-2.6); Potassium 3.2 mmol/L (3.3-5.1); Sodium 151 mmol/L (135-145)
[2025-01-22] MEDS: Potassium Chloride Packet 20 MEQ PACKET 40 MEQ PO (06:37)
[2025-01-22] MEDS: Chlorhexidine Gluc Oral Rinse 15 ML MOUTHWASH BUCCAL ×3 (08:00→22:03)
--- NOTE | 2025-01-22 09:18 | P.PNCC_ITS ---
Subjective Subjective Date of Service: 01/22/25 Interval History: no significant overnight events Critical Care Time (minutes): 60 Physical Exam 2 Vital Signs: Vital Signs: Last Vital Signs Temp 100.8 F H 01/22/25 09:00 Pulse 84 01/22/25 09:00 Resp 19 01/22/25 09:00 BP 107/68 01/22/25 09:00 Pulse Ox 91 L 01/22/25 09:00 O2 Del Method Mechanical Ventil ation 01/22/25 09:00 FiO2 100 01/22/25 09:00 BMI result Body Mass Index 42.4 Const: Other: intubated, sedated; no appreciable spontaneous movements General: comfortable, no acute distress and well developed HEENT: Head: Yes normal to inspection, Yes normocephalic and Yes atraumatic Eyes: General: appearance normal, both eyes and all related structures Neck: Neck: Yes normal visual inspection, Yes full ROM, Yes no meningeal signs, Yes trachea midline and Yes supple Chest: Chest palpation & inspection: normal inspection of the chest Resp: Other: no appreciable overt rales, rhonchi, wheezing Effort & Inspection: normal respiratory effort Cardio: Rate: regular rate Rhythm: regular rhythm GI: Inspection: Yes normal to inspection, No Abdominal wall edema and No distended Palpation (GI): Soft to palpation, not firm, nontender, no guarding and not rigid Skin: General skin exam: no rashes or lesions noted Neuro: General: tone normal and no meningeal signs Extrem: Other: appreciable 1+ pitting edema to bilateral thighs General: Yes normal to inspection, Yes full ROM and Yes capillary refill normal Psych: Other: unable to assess Objective Data Labs 01/22/25 05:10 01/22/25 05:10 Labs: Laboratory Results - last 24 hr 01/21/25 01/21/25 01/22/25 11:51 17:54 05:10 WBC 15.0 H 15.5 H RBC 5.68 5.80 Hgb 12.4 L 12.4 L Hct 43.9 45.4 MCV 77.3 L 78.3 L MCH 21.8 L 21.4 L MCHC 28.2 L 27.3 L RDW 22.5 H 21.9 H Plt Count 264 283 MPV 10.4 10.2 Immature Gran % (Auto) 0.6 H Neut % (Auto) 76.5 H Lymph % (Auto) 9.5 L [place] % (Auto) 11.8 H Eos % (Auto) 1.4 Baso % (Auto) 0.2 Lymph # (Auto) 1.5 [place] # (Auto) 1.8 H Eos # (Auto) 0.2 Baso # (Auto) 0.0 Abs Immat Gran (auto) 0.10 H Absolute Neuts (auto) 11.9 H Absolute Nucleated RBC 0.000 0.000 Nucleated RBC % (auto) 0.0 0.0 Smear Tech's Comments VERIFIED PT 11.4 INR 1.0 APTT 25.6 L VBG pH VBG pCO2 VBG pO2 VBG HCO3 VBG O2 Saturation VBG Base Excess Sodium 150 H 151 H Potassium 4.0 D 3.2 L Chloride 105 105 Carbon Dioxide 37 H 34 H Anion Gap 12 15 BUN 35 H 37 H Creatinine 0.95 0.90 Estim Creat Clear Calc 132.5 138.2 Estimated GFR > 60 > 60 Random Glucose 127 H 109 Calcium 9.5 9.5 Phosphorus 4.6 H 3.6 Magnesium 2.9 H 2.9 H Albumin 4.3 01/22/25 05:11 WBC RBC Hgb Hct MCV MCH MCHC RDW Plt Count MPV Immature Gran % (Auto) Neut % (Auto) Lymph % (Auto) [place] % (Auto) Eos % (Auto) Baso % (Auto) Lymph # (Auto) [place] # (Auto) Eos # (Auto) Baso # (Auto) Abs Immat Gran (auto) Absolute Neuts (auto) Absolute Nucleated RBC Nucleated RBC % (auto) Smear Tech's Comments PT INR APTT VBG pH 7.44 H VBG pCO2 61 VBG pO2 70 VBG HCO3 42 H VBG O2 Saturation 92.0 VBG Base Excess 15.2 Sodium Potassium Chloride Carbon Dioxide Anion Gap BUN Creatinine Estim Creat Clear Calc Estimated GFR Random Glucose Calcium Phosphorus Magnesium Albumin Microbiology Microbiology Results: Microbiology 01/21/25 09:25 Sputum - Suctioned Gram Stain - Final 01/21/25 09:25 Sputum - Suctioned Sputum Culture - Preliminary Culture in progress. 01/14/25 23:23 Blood - Venous Blood Culture - Final No growth after 5 days. 01/14/25 22:53 Blood - Venous Blood Culture - Final No growth after 5 days. 01/15/25 03:30 Sputum - Suctioned Gram Stain - Final 01/15/25 03:30 Sputum - Suctioned Sputum Culture - Final Progress Note: A&P Assessment and plan (1) Acute and chronic respiratory failure: Status: Acute (2) Pneumonia: Status: Acute (3) COPD (chronic obstructive pulmonary disease): Status: Acute (4) ANA (obstructive sleep apnea): Status: Acute Plan Patient is a 59 Y M w/ polysubstance misuse, CHF, morbid obesity, ANA, COPD c/b chronic respiratory failure on 2 L NC, and prior DVT presenting to ED form assisted living on 01/14 w/ dyspnea found to be in acute on chronic respiratory failure; ED work-up suggestive of pneumonia; ICU course c/b worsening?acute on chronic respiratory failure, intubated 01/14 N: intubated, sedated w/ propofol, fentanyl gtts, wean as tolerated CV: no acute issues; CHF R: acute on chronic respiratory failure, c/b overt ARDS likely d/t pneumonia, intubated?01/14, no interval improvement of respiratory failure in past days GI: no acute issues; tube feeds : c/f volume overload, furosemide gtt, to monitor renal indices/electrolytes H: no acute issues; prior DVTs, chemical DVT prophylaxis ID: c/f aspiration pneumonia, levofloxacin E: to monitor hypo-/hyper-glycemia P: no acute issues S: daily updates given/ongoing goals of care conversations w/ sister Quality Stroke Does the patient have a stroke diagnosis?: No VTE Prior VTE?: No VTE Risk Level:: Medical - moderate - high VTE Device Contraindication: N/A - Device Ordered VTE Drug Contraindication: N/A - Med Ordered
[2025-01-22] MEDS: Furosemide 200 MG in 0.9 % Sodium Chloride 80 ML IVCONT (09:54)
--- NOTE | 2025-01-22 10:38 | MHC.CLN ---
F/U PT REMAINS INTUBATED AND SEDATED DISCUSSED WITH NSG-TOLERATING TF REVIEWED LABS CONTINUE PROMOTE AT MAX GOAL RATE 40ML/HR WITH 240ML FREE WATER FLUSHES Q 4 HRS PROVIDES 960KCALS (2315 TOTAL KCALS WITH SEDATION; 27KCALS/KG), 60G PROTEIN, 2245 ML FREE WATER FROM FORMULA AND FLUSHES (26ML/KG) CONTINUE TO MONITOR TOLERANCE AND LYTES
--- NOTE | 2025-01-22 13:09 | MHC.CM.PN ---
Pt remains intubated in ICU and was started on hemodialysis in response to worsening renal fx. Goals of care discussions with pt's sister/HCP and MD are ongoing. Pt had been at [facility] prior to [facility] admission. CM to follow for d/c planning needs
[2025-01-22 18:27] LABS: Anion Gap 15 (12-20); Blood Urea Nitrogen 37 mg/dL (9-16); Calcium 9.6 mg/dL (8.4-10.2); Carbon Dioxide 35 mmol/L (22-29); Chloride 105 mmol/L (96-108); Creatinine Clr Calc Pharmacy 129.5; Estimated Glomerular Filt Rate > 60; Magnesium 2.9 mg/dL (1.6-2.6); Potassium 4.0 mmol/L (3.3-5.1); Sodium 151 mmol/L (135-145)
--- NOTE | 2025-01-22 19:12 | PC.NURSE ---
assumed care of patient at 1500, continues on propofol, intubated and veneted, See MAR, vent and shift assessment for full details. andrade in for retention after failing voiding trial with multiple straight caths reported.
[2025-01-23] VITALS (37 sets, daily range): BP systolic 92–145; BP diastolic 50–93; PULSE 77–97; RESP 16–20; TEMP 34–38.6; O2SAT 88–97; BMI 39.4
[2025-01-23] MEDS: Albuterol/Iprat 2.5/0.5MG 3 ML AMPUL.NEB INHALE ×5 (04:11→18:44)
[2025-01-23] MEDS: Furosemide 200 MG in 0.9 % Sodium Chloride 80 ML IVCONT ×2 (04:42→23:25)
[2025-01-23 05:14] LABS: VBG HCO3 40 mmol/L (22-26); VBG O2 % Saturation 90.0 %
[2025-01-23 05:17] LABS: Venous Blood Gas Refer to POC result
[2025-01-23 05:33] LABS: MANUAL DIFF FLAG NO
[2025-01-23 05:35] LABS: Hematocrit 45.0 % (42.0-52.0); Hemoglobin 12.0 g/dl (14.0-18.0); Imm Gran Abs Auto 0.09 X10*3/uL (0.00-0.03); Imm Gran Pct Auto 0.6 % (0.0-0.4); Lymphocytes Absolute Auto 1.7 X10*3/uL (1.2-4.9); Mean Corpuscular HGB Conc 26.7 g/dl (31.0-36.0); Mean Corpuscular Hemoglobin 21.2 pg (27.0-33.0); Mean Corpuscular Volume 79.6 fL (80.0-98.0); NRBC Abs Auto 0.000 X10*3/uL (0.0-0.012); NRBC Pct Auto 0.0 /100WBC (0.0-0.2); Platelet Count 256 X10*3/uL (160-400); Red Blood Count 5.65 X10*6/uL (4.60-5.80); White Blood Count 14.3 X10*3/uL (4.8-10.8)
[2025-01-23 05:46] LABS: Albumin Level 4.0 g/dL (3.5-5.0); Anion Gap 17 (12-20); Blood Urea Nitrogen 53 mg/dL (9-16); Calcium 9.6 mg/dL (8.4-10.2); Carbon Dioxide 34 mmol/L (22-29); Chloride 105 mmol/L (96-108); Creatinine Clr Calc Pharmacy 126.9; Estimated Glomerular Filt Rate > 60; Magnesium 3.0 mg/dL (1.6-2.6); Potassium 3.5 mmol/L (3.3-5.1); Sodium 152 mmol/L (135-145)
[2025-01-23] MEDS: Potassium Chloride Packet 20 MEQ PACKET 40 MEQ PO (05:58)
[2025-01-23] MEDS: 0.9 % Sodium Chloride Flush 3 ML SYRINGE IVFLUSH ×2 (08:10→15:48)
--- NOTE | 2025-01-23 09:05 | P.PNCC_ITS ---
Subjective Subjective Date of Service: 01/23/25 Interval History: no significant overnight events Critical Care Time (minutes): 60 Physical Exam 2 Vital Signs: Vital Signs: Last Vital Signs Temp 100.9 F H 01/23/25 08:00 Pulse 79 01/23/25 08:08 Resp 18 01/23/25 08:08 BP 100/50 L 01/23/25 08:00 Pulse Ox 92 01/23/25 08:00 O2 Del Method Mechanical Ventil ation 01/23/25 08:00 FiO2 80 01/23/25 08:10 BMI result Body Mass Index 39.4 Const: Other: intubated, sedated; no appreciable spontaneous movements General: comfortable and no acute distress HEENT: Head: Yes normal to inspection, Yes normocephalic and Yes atraumatic Eyes: General: appearance normal, both eyes and all related structures Neck: Neck: Yes normal visual inspection, Yes full ROM, Yes no meningeal signs, Yes trachea midline and Yes supple Chest: Chest palpation & inspection: normal inspection of the chest Resp: Other: no appreciable overt rales, rhonchi, wheezing Effort & Inspection: normal respiratory effort Cardio: Rate: regular rate Rhythm: regular rhythm GI: Inspection: Yes normal to inspection, No Abdominal wall edema and No distended Palpation (GI): Soft to palpation, not firm, nontender, no guarding and not rigid Skin: General skin exam: no rashes or lesions noted Neuro: General: tone normal and no meningeal signs Extrem: Other: appreciable 1+ pitting edema to bilateral shins General: Yes normal to inspection, Yes full ROM and Yes capillary refill normal Psych: Other: unable to assess Objective Data Labs 01/23/25 04:57 01/23/25 04:57 Labs: Laboratory Results - last 24 hr 01/22/25 01/23/25 01/23/25 17:56 04:57 05:09 WBC 14.3 H RBC 5.65 Hgb 12.0 L Hct 45.0 MCV 79.6 L MCH 21.2 L MCHC 26.7 L RDW 21.3 H Plt Count 256 MPV 10.6 Immature Gran % (Auto) 0.6 H Neut % (Auto) 74.6 H Lymph % (Auto) 11.7 L [place] % (Auto) 9.5 Eos % (Auto) 3.3 Baso % (Auto) 0.3 Lymph # (Auto) 1.7 [place] # (Auto) 1.4 H Eos # (Auto) 0.5 H Baso # (Auto) 0.1 Abs Immat Gran (auto) 0.09 H Absolute Neuts (auto) 10.7 H Absolute Nucleated RBC 0.000 Nucleated RBC % (auto) 0.0 VBG pH 7.40 VBG pCO2 64 VBG pO2 70 VBG HCO3 40 H VBG O2 Saturation 90.0 VBG Base Excess 12.6 Sodium 151 H 152 H Potassium 4.0 D 3.5 Chloride 105 105 Carbon Dioxide 35 H 34 H Anion Gap 15 17 BUN 37 H 53 H Creatinine 0.96 0.98 Estim Creat Clear Calc 129.5 126.9 Estimated GFR > 60 > 60 Random Glucose 126 H 100 Calcium 9.6 9.6 Phosphorus 4.5 4.3 Magnesium 2.9 H 3.0 H Albumin 4.0 Microbiology Microbiology Results: Microbiology 01/21/25 09:25 Sputum - Suctioned Gram Stain - Final 01/21/25 09:25 Sputum - Suctioned Sputum Culture - Preliminary Gram negative jennifer Yeast 01/14/25 23:23 Blood - Venous Blood Culture - Final No growth after 5 days. 01/14/25 22:53 Blood - Venous Blood Culture - Final No growth after 5 days. 01/15/25 03:30 Sputum - Suctioned Gram Stain - Final 01/15/25 03:30 Sputum - Suctioned Sputum Culture - Final Progress Note: A&P Assessment and plan (1) Acute and chronic respiratory failure: Status: Acute (2) Pneumonia: Status: Acute (3) COPD (chronic obstructive pulmonary disease): Status: Acute (4) ANA (obstructive sleep apnea): Status: Acute Plan Patient is a 59 Y M w/ polysubstance misuse, CHF, morbid obesity, ANA, COPD c/b chronic respiratory failure on 2 L NC, and prior DVT presenting to ED form assisted living on 01/14 w/ dyspnea found to be in acute on chronic respiratory failure; ED work-up suggestive of pneumonia; ICU course c/b worsening?acute on chronic respiratory failure, intubated 01/14 N: intubated, sedated w/ propofol, fentanyl gtts, unable to wean d/t dysnchrony/hemodynamic changes CV: no acute issues; CHF R: acute on chronic respiratory failure, c/b overt ARDS likely d/t pneumonia, intubated?01/14, no interval improvement of respiratory failure in past days GI: no acute issues; tube feeds : c/f volume overload, furosemide gtt, to monitor renal indices/electrolytes H: no acute issues; prior DVTs, chemical DVT prophylaxis ID: c/f aspiration pneumonia, levofloxacin; RCx 01/21 demonstrating yeast, likely oropharyngeal colonization E: to monitor hypo-/hyper-glycemia P: no acute issues S: daily updates given/ongoing goals of care conversations w/ sister Quality Stroke Does the patient have a stroke diagnosis?: No VTE Prior VTE?: No VTE Risk Level:: Medical - moderate - high VTE Device Contraindication: N/A - Device Ordered VTE Drug Contraindication: N/A - Med Ordered
[2025-01-23] MEDS: Chlorhexidine Gluc Oral Rinse 15 ML MOUTHWASH BUCCAL ×3 (09:19→20:00)
[2025-01-23] MEDS: fentaNYL citrate/NS 1,000 MCG/100 ML PLAST..BAG 10 MCG IVCONT ×2 (10:01→19:58)
[2025-01-23] MEDS: Artificial Tears 15 ML DROPS 1 DROP EYE-BOTH (13:44)
--- NOTE | 2025-01-23 17:45 | PC.NURSE ---
Assumed care at 0700. Upon initial assessment, pt intubated and on levophed, propofol, & lasix drips.? At approx 1000, pt temp noted to be elevated. Acetaminophen administered per MAR with little effect. Ice packs placed on pt with some positive effect. Family updated via phone and bedside. Fall & safety precautions in place. See MAR and assessments for further details. Pt repositioned q2hr as tolerated.
[2025-01-23 18:27] LABS: Anion Gap 15 (12-20); Blood Urea Nitrogen 49 mg/dL (9-16); Calcium 9.5 mg/dL (8.4-10.2); Carbon Dioxide 35 mmol/L (22-29); Chloride 104 mmol/L (96-108); Creatinine Clr Calc Pharmacy 123.2; Estimated Glomerular Filt Rate > 60; Magnesium 2.9 mg/dL (1.6-2.6); Potassium 4.2 mmol/L (3.3-5.1); Sodium 150 mmol/L (135-145)
[2025-01-24] VITALS (37 sets, daily range): BP systolic 90–126; BP diastolic 49–76; PULSE 73–97; RESP 16–23; TEMP 34–38.8; O2SAT 86–92; BMI 39.7
[2025-01-24] MEDS: Albuterol/Iprat 2.5/0.5MG 3 ML AMPUL.NEB INHALE ×7 (00:13→23:46)
[2025-01-24] MEDS: 0.9 % Sodium Chloride Flush 3 ML SYRINGE IVFLUSH ×4 (01:31→23:54)
[2025-01-24] MEDS: fentaNYL citrate/NS 1,000 MCG/100 ML PLAST..BAG 10 MCG IVCONT ×2 (04:12→14:50)
[2025-01-24 05:22] LABS: VBG HCO3 42 mmol/L (22-26); VBG O2 % Saturation 86.0 %
[2025-01-24 05:24] LABS: Venous Blood Gas Refer to POC result
[2025-01-24 05:37] LABS: Hematocrit 46.3 % (42.0-52.0); Hemoglobin 12.3 g/dl (14.0-18.0); Imm Gran Abs Auto 0.13 X10*3/uL (0.00-0.03); Imm Gran Pct Auto 0.8 % (0.0-0.4); Lymphocytes Absolute Auto 1.2 X10*3/uL (1.2-4.9); MANUAL DIFF FLAG SCAN; Mean Corpuscular HGB Conc 26.6 g/dl (31.0-36.0); Mean Corpuscular Hemoglobin 21.6 pg (27.0-33.0); Mean Corpuscular Volume 81.4 fL (80.0-98.0); NRBC Abs Auto 0.000 X10*3/uL (0.0-0.012); NRBC Pct Auto 0.0 /100WBC (0.0-0.2); PLT CLUMP 1; Red Blood Count 5.69 X10*6/uL (4.60-5.80); SCAN SMEAR FLAG 1
[2025-01-24 05:38] LABS: White Blood Count 15.6 X10*3/uL (4.8-10.8)
[2025-01-24 05:47] LABS: Albumin Level 3.9 g/dL (3.5-5.0)
[2025-01-24 05:52] LABS: Anion Gap 14 (12-20); Blood Urea Nitrogen 57 mg/dL (9-16); Calcium 9.6 mg/dL (8.4-10.2); Carbon Dioxide 36 mmol/L (22-29); Chloride 105 mmol/L (96-108); Creatinine Clr Calc Pharmacy 124.5; Estimated Glomerular Filt Rate > 60; Magnesium 2.9 mg/dL (1.6-2.6); Potassium 3.7 mmol/L (3.3-5.1); Sodium 151 mmol/L (135-145)
[2025-01-24 06:04] LABS: Platelet Count 228 X10*3/uL (160-400)
[2025-01-24] MEDS: Chlorhexidine Gluc Oral Rinse 15 ML MOUTHWASH BUCCAL ×3 (07:45→20:15)
--- NOTE | 2025-01-24 09:01 | P.PNCC_ITS ---
Subjective Subjective Date of Service: 01/24/25 Interval History: no significant overnight events Critical Care Time (minutes): 60 Physical Exam 2 Vital Signs: Vital Signs: Last Vital Signs Temp 101.5 F H 01/24/25 08:00 Pulse 96 01/24/25 08:00 Resp 20 01/24/25 08:00 BP 111/66 01/24/25 08:00 Pulse Ox 89 L 01/24/25 08:00 O2 Del Method Mechanical Ventil ation 01/24/25 08:00 FiO2 90 01/24/25 08:00 BMI result Body Mass Index 39.7 Const: Other: intubated, sedated; no appreciable spontaneous movements General: no acute distress and well developed HEENT: Head: Yes normal to inspection, Yes normocephalic and Yes atraumatic Eyes: General: appearance normal, both eyes and all related structures Neck: Neck: Yes normal visual inspection, Yes full ROM, Yes no meningeal signs, Yes trachea midline and Yes supple Chest: Chest palpation & inspection: normal inspection of the chest Resp: Other: diminished breath sounds throughout; no appreciable overt rales, rhonchi, wheezing Effort & Inspection: normal respiratory effort Cardio: Rate: tachycardic Rhythm: regular rhythm GI: Inspection: Yes normal to inspection, No Abdominal wall edema and No distended Palpation (GI): Soft to palpation, not firm, nontender, no guarding and not rigid Skin: General skin exam: no rashes or lesions noted Neuro: General: tone normal and no meningeal signs Extrem: Other: appreciable non-pitting edema throughout Psych: Other: unable to assess Objective Data Labs 01/24/25 05:08 01/24/25 05:08 Labs: Laboratory Results - last 24 hr 01/23/25 01/24/25 01/24/25 18:07 05:08 05:17 WBC 15.6 H RBC 5.69 Hgb 12.3 L Hct 46.3 MCV 81.4 MCH 21.6 L MCHC 26.6 L RDW 21.7 H Plt Count 228 MPV Not Reportable Immature Gran % (Auto) 0.8 H Neut % (Auto) 78.3 H Lymph % (Auto) 7.8 L [place] % (Auto) 8.6 Eos % (Auto) 4.0 Baso % (Auto) 0.5 Lymph # (Auto) 1.2 [place] # (Auto) 1.3 H Eos # (Auto) 0.6 H Baso # (Auto) 0.1 Abs Immat Gran (auto) 0.13 H Absolute Neuts (auto) 12.2 H Absolute Nucleated RBC 0.000 Nucleated RBC % (auto) 0.0 Smear Tech's Comments VERIFIED VBG pH 7.40 VBG pCO2 68 VBG pO2 60 VBG HCO3 42 H VBG O2 Saturation 86.0 VBG Base Excess 14.2 Sodium 150 H 151 H Potassium 4.2 3.7 Chloride 104 105 Carbon Dioxide 35 H 36 H Anion Gap 15 14 BUN 49 H 57 H Creatinine 0.97 0.96 Estim Creat Clear Calc 123.2 124.5 Estimated GFR > 60 > 60 Random Glucose 128 H 103 Calcium 9.5 9.6 Phosphorus 4.0 4.4 Magnesium 2.9 H 2.9 H Albumin 3.9 Microbiology Microbiology Results: Microbiology 01/21/25 09:25 Sputum - Suctioned Gram Stain - Final 01/21/25 09:25 Sputum - Suctioned Sputum Culture - Preliminary Gram negative jennifer Yeast 01/14/25 23:23 Blood - Venous Blood Culture - Final No growth after 5 days. 01/14/25 22:53 Blood - Venous Blood Culture - Final No growth after 5 days. 01/15/25 03:30 Sputum - Suctioned Gram Stain - Final 01/15/25 03:30 Sputum - Suctioned Sputum Culture - Final Progress Note: A&P Assessment and plan (1) Acute respiratory failure with hypoxia and hypercapnia: Status: Acute (2) Chronic respiratory failure: Status: Acute (3) Pneumonia: Status: Acute (4) COPD (chronic obstructive pulmonary disease): Status: Acute (5) ANA (obstructive sleep apnea): Status: Acute Plan Patient is a 59 Y M w/ polysubstance misuse, CHF, morbid obesity, ANA, COPD c/b chronic respiratory failure on 2 L NC, and prior DVT presenting to ED form assisted living on 01/14 w/ dyspnea found to be in acute on chronic respiratory failure; ED work-up suggestive of pneumonia; ICU course c/b worsening?acute on chronic respiratory failure, intubated 01/14 N: intubated, sedated w/ propofol, fentanyl gtts, unable to wean d/t dysnchrony/hemodynamic changes CV: no acute issues; CHF R: acute on chronic respiratory failure, c/b overt ARDS likely d/t pneumonia, intubated?01/14, no interval improvement of respiratory failure in past days GI: no acute issues; tube feeds : c/f volume overload, furosemide gtt, to monitor renal indices/electrolytes H: no acute issues; prior DVTs, chemical DVT prophylaxis ID: c/f aspiration pneumonia, levofloxacin; RCx 01/21 demonstrating yeast, likely oropharyngeal colonization E: to monitor hypo-/hyper-glycemia P: no acute issues S: daily updates given/ongoing goals of care conversations w/ sister/HCP Quality Stroke Does the patient have a stroke diagnosis?: No VTE Prior VTE?: No VTE Risk Level:: Medical - moderate - high VTE Device Contraindication: N/A - Device Ordered VTE Drug Contraindication: N/A - Med Ordered
[2025-01-24] MEDS: Furosemide 200 MG in 0.9 % Sodium Chloride 80 ML IVCONT (16:37)
--- NOTE | 2025-01-24 18:17 | PC.NURSE ---
Assumed care at 0700. Upon initial assessment, pt intubated with increased ventilator settings. Pt on fentanyl, propofol, and lasix drips. PRN miralax given per MAR. Kitchen stated that Vital AF tube feed has been supplied in place of Promote. Per dietary, promote is no longer manufactured and vital AF can be used 1:1. Pt?s temp elevated; 102 degrees at 1130. Tylenol administered and ice packs placed on pt with no discernible effect. Cooling blanket applied at approx 1300. Pt repositioned q2hr as tolerated. Fall & safety precautions in place. See MAR and assessments for further details.
[2025-01-24 18:41] LABS: Anion Gap 18 (12-20); Blood Urea Nitrogen 56 mg/dL (9-16); Calcium 9.3 mg/dL (8.4-10.2); Carbon Dioxide 34 mmol/L (22-29); Chloride 104 mmol/L (96-108); Creatinine Clr Calc Pharmacy 130.4; Estimated Glomerular Filt Rate > 60; Magnesium 2.9 mg/dL (1.6-2.6); Potassium 3.8 mmol/L (3.3-5.1); Sodium 152 mmol/L (135-145)
[2025-01-25] VITALS (38 sets, daily range): BP systolic 93–134; BP diastolic 53–82; PULSE 73–113; RESP 15–27; TEMP 34.8–38.4; O2SAT 74–99; BMI 40.2
[2025-01-25] MEDS: fentaNYL citrate/NS 1,000 MCG/100 ML PLAST..BAG 7.5 MCG IVCONT ×2 (02:21→22:20)
[2025-01-25] MEDS: Albuterol/Iprat 2.5/0.5MG 3 ML AMPUL.NEB INHALE ×6 (04:39→23:52)
[2025-01-25 05:14] LABS: VBG HCO3 39 mmol/L (22-26); VBG O2 % Saturation 82.0 %
[2025-01-25 05:15] LABS: Venous Blood Gas Refer to POC result
[2025-01-25 06:03] LABS: Hematocrit 50.0 % (42.0-52.0); Hemoglobin 13.2 g/dl (14.0-18.0); Imm Gran Abs Auto 0.13 X10*3/uL (0.00-0.03); Imm Gran Pct Auto 0.7 % (0.0-0.4); Lymphocytes Absolute Auto 1.3 X10*3/uL (1.2-4.9); MANUAL DIFF FLAG SCAN; Mean Corpuscular HGB Conc 26.4 g/dl (31.0-36.0); Mean Corpuscular Hemoglobin 21.5 pg (27.0-33.0); Mean Corpuscular Volume 81.3 fL (80.0-98.0); NRBC Abs Auto 0.000 X10*3/uL (0.0-0.012); NRBC Pct Auto 0.0 /100WBC (0.0-0.2); PLT CLUMP 1; Red Blood Count 6.15 X10*6/uL (4.60-5.80); SCAN SMEAR FLAG 1
[2025-01-25 06:11] LABS: Albumin Level 3.8 g/dL (3.5-5.0); Anion Gap 17 (12-20); Blood Urea Nitrogen 59 mg/dL (9-16); Calcium 9.4 mg/dL (8.4-10.2); Carbon Dioxide 34 mmol/L (22-29); Chloride 105 mmol/L (96-108); Creatinine Clr Calc Pharmacy 153.8; Estimated Glomerular Filt Rate > 60; Magnesium 2.9 mg/dL (1.6-2.6); Potassium 3.2 mmol/L (3.3-5.1); Sodium 153 mmol/L (135-145)
[2025-01-25 06:23] LABS: Platelet Count 228 X10*3/uL (160-400); White Blood Count 19.2 X10*3/uL (4.8-10.8)
[2025-01-25] MEDS: Artificial Tears 15 ML DROPS 1 DROP EYE-BOTH (07:34)
[2025-01-25] MEDS: 0.9 % Sodium Chloride Flush 3 ML SYRINGE IVFLUSH ×3 (07:35→23:09)
[2025-01-25] MEDS: Potassium Chloride Packet 20 MEQ PACKET 40 MEQ PO (07:53)
[2025-01-25] MEDS: Chlorhexidine Gluc Oral Rinse 15 ML MOUTHWASH BUCCAL ×3 (07:56→20:26)
--- NOTE | 2025-01-25 11:51 | PM.CCPN ---
Subjective Subjective Date of Service: 01/25/25 Interval History: 59-year-old gentleman with underlying COPD on 2 L, obesity, congestive heart failure, PVD, cocaine abuse, ANA, chronic lower extremity edema admitted on 01/15/2025 with dyspnea and hypoxia requiring intubation and ventilatory support. Patient was noted to have bilateral pneumonia and a CAT scan with cultures growing E coli and Debra. He continues to require high level of ventilatory support with FiO2 of 90% on PEEP of 12. No events overnight Critical Care Time (minutes): 60 Physical Exam Vital Signs: Vital Signs: Last Vital Signs Temp 100.9 F H 01/25/25 11:00 Pulse 97 01/25/25 11:16 Resp 20 01/25/25 11:16 BP 120/72 01/25/25 11:00 Pulse Ox 98 01/25/25 11:00 O2 Del Method Mechanical Ventil ation 01/25/25 11:00 FiO2 90 01/25/25 11:16 BMI result Body Mass Index 40.2 Const: General: no acute distress and other (Sedated on ventilatory support) Nutritional Appearance: obese Eyes: Sclerae: sclerae normal EOM: EOMs intact bilaterally Neck: Neck: Yes no lymphadenopathy, Yes trachea midline and Yes supple Resp: Effort & Inspection: no respiratory distress Auscultation: crackles (bilateral) Cardio: Rate: regular rate Rhythm: regular rhythm Heart sounds: no gallops, no murmurs and no rubs GI: Palpation (GI): Soft to palpation and Other GI palpation findings present ( Nontender) Auscultation: normal bowel sounds Extrem: General: No clubbing, No cyanosis and Yes edema (1+ bilateral) Objective Data Labs 01/25/25 05:09 01/25/25 05:09 Labs: Laboratory Results - last 24 hr 01/24/25 01/25/25 01/25/25 18:05 05:09 05:10 WBC 19.2 H RBC 6.15 H Hgb 13.2 L Hct 50.0 MCV 81.3 MCH 21.5 L MCHC 26.4 L RDW 21.2 H Plt Count 228 MPV Not Reportable Immature Gran % (Auto) 0.7 H Neut % (Auto) 81.9 H Lymph % (Auto) 6.8 L [place] % (Auto) 7.3 Eos % (Auto) 2.9 Baso % (Auto) 0.4 Lymph # (Auto) 1.3 [place] # (Auto) 1.4 H Eos # (Auto) 0.6 H Baso # (Auto) 0.1 Abs Immat Gran (auto) 0.13 H Absolute Neuts (auto) 15.7 H Absolute Nucleated RBC 0.000 Nucleated RBC % (auto) 0.0 Smear Tech's Comments VERIFIED VBG pH 7.41 VBG pCO2 60 VBG pO2 54 VBG HCO3 39 H VBG O2 Saturation 82.0 VBG Base Excess 11.6 Sodium 152 H 153 H Potassium 3.8 3.2 L Chloride 104 105 Carbon Dioxide 34 H 34 H Anion Gap 18 17 BUN 56 H 59 H Creatinine 0.92 0.78 Estim Creat Clear Calc 130.4 153.8 Estimated GFR > 60 > 60 Random Glucose 134 H 103 Calcium 9.3 9.4 Phosphorus 4.1 3.7 Magnesium 2.9 H 2.9 H Albumin 3.8 Microbiology Microbiology Results: Microbiology 01/21/25 09:25 Sputum - Suctioned Gram Stain - Final 01/21/25 09:25 Sputum - Suctioned Sputum Culture - Final Escherichia coli Debra tropicalis 01/14/25 23:23 Blood - Venous Blood Culture - Final No growth after 5 days. 01/14/25 22:53 Blood - Venous Blood Culture - Final No growth after 5 days. 01/15/25 03:30 Sputum - Suctioned Gram Stain - Final 01/15/25 03:30 Sputum - Suctioned Sputum Culture - Final Progress Note: A&P Assessment and plan (1) Cocaine use disorder: Status: Acute (2) CHF (congestive heart failure), NYHA class III: Status: Acute (3) Morbid (severe) obesity due to excess calories: Status: Acute (4) COPD with hypoxia: Status: Chronic (5) E. coli pneumonia: Status: Acute (6) Acute respiratory failure with hypoxia and hypercapnia: Status: Acute Plan Assessment: 69-year-old gentleman with underlying COPD on 2 L, obesity, congestive heart failure hospitalized on 01/15/2025 with acute hypoxic respiratory failure secondary to bilateral [place] pneumonia, now still with high requirements for ventilatory support Plan: Neuro: No acute issues. Cardiac: Acute on chronic congestive heart failure improving with diuresis. Pulmonary: Acute hypoxic respiratory failure secondary to E coli pneumonia requiring ventilatory support with high FiO2 and PEEP requirements. Will likely require tracheostomy/gastrostomy. Surgery evaluation requested. Renal: Hypernatremia, increase free water boluses. Non oliguric. Continue to monitor renal indices and urine output. Endo: No acute issues. GI: No acute issues. ID: E coli pneumonia, continue Levaquin. Heme/Onc: No acute issues. Psych: No acute issues. Miscellaneous: No acute issues. Prophylaxis: Lovenox, PPI Diet: Tube feeds Critical care time spent: 60 minutes Quality Stroke Does the patient have a stroke diagnosis?: No VTE Prior VTE?: No VTE Risk Level:: Medical - moderate - high VTE Device Contraindication: N/A - Device Ordered VTE Drug Contraindication: N/A - Med Ordered
[2025-01-25] MEDS: Furosemide 200 MG in 0.9 % Sodium Chloride 80 ML IVCONT (11:53)
[2025-01-25] MEDS: fentaNYL citrate/NS 1,000 MCG/100 ML PLAST..BAG 10 MCG IVCONT (12:05)
--- NOTE | 2025-01-25 15:01 | MHC.CLN ---
F/U PT REMAINS INTUBATED AND SEDATED TF FORMULA CHANGED FROM PROMOTE TO COMPARABLE FORMULA VITAL 1.2 AF PER HOSPITAL FORMULARY TOLERATING TUBE FEEDING CONTINUE VITAL 1.2 AF AT MAX GOAL RATE 40ML/HR WITH 300 ML FREE WATER FLUSHES Q 4 HRS PROVIDES 1152KCALS (2579 TOTAL KCALS WITH SEDATION; 30KCALS/KG IBW), 72G PROTEIN (.84 G/KG IBW), 2507ML FREE WATER FROM FORMULA AND FLUSHES (29ML/KG) CONTINUE TO MONITOR TOLERANCE AND LYTES
--- NOTE | 2025-01-25 17:58 | PC.NURSE ---
Assumed care at 0700. Upon initial assessment, pt remains ventilated and is on propofol, fentanyl, and lasix drips. PRN miralax and eye drops given per MAR. At 1000, pt coughed up copious laura/brown secretions. MD made aware. Pt suctioned, RT made aware. Vent circuit switched out. Update given to family at bedside. Per MD discussion with family, plan to pursue trach & peg. Pt repositioned q2hr as tolerated. Fall & safety precautions in place. See MAR and assessments for further details.
[2025-01-25 20:14] LABS: Hemoglobin 14.3 g/dl (14.0-18.0); Mean Corpuscular Volume 81.8 fL (80.0-98.0); NRBC Abs Auto 0.000 X10*3/uL (0.0-0.012); NRBC Pct Auto 0.0 /100WBC (0.0-0.2); SCAN SMEAR FLAG 1
[2025-01-25 20:16] LABS: Hematocrit 52.5 % (42.0-52.0); Imm Gran Abs Auto 0.24 X10*3/uL (0.00-0.03); Imm Gran Pct Auto 1.1 % (0.0-0.4); Lymphocytes Absolute Auto 1.1 X10*3/uL (1.2-4.9); MANUAL DIFF FLAG SCAN; Mean Corpuscular HGB Conc 27.2 g/dl (31.0-36.0); Mean Corpuscular Hemoglobin 22.3 pg (27.0-33.0); PLT CLUMP 1; Red Blood Count 6.42 X10*6/uL (4.60-5.80)
[2025-01-25 20:30] LABS: Albumin Level 3.6 g/dL (3.5-5.0); Anion Gap 18 (12-20); Blood Urea Nitrogen 63 mg/dL (9-16); Calcium 9.2 mg/dL (8.4-10.2); Carbon Dioxide 31 mmol/L (22-29); Chloride 108 mmol/L (96-108); Creatinine Clr Calc Pharmacy 138.9; Estimated Glomerular Filt Rate > 60; Magnesium 3.1 mg/dL (1.6-2.6); Potassium 4.9 mmol/L (3.3-5.1); Sodium 152 mmol/L (135-145)
[2025-01-25 21:01] LABS: PLT ABN DIST 1; Platelet Count 199 X10*3/uL (160-400); White Blood Count 21.6 X10*3/uL (4.8-10.8)
[2025-01-25 21:15] LABS: ABG HCO3 39 mmol/L (22-26); ABG O2 % Saturation 64.0 %
[2025-01-25 21:31] LABS: ABG Refer to POC result
[2025-01-25 22:36] LABS: ABG HCO3 38 mmol/L (22-26); ABG O2 % Saturation 86.0 %
[2025-01-25 23:16] LABS: ABG Refer to POC result
[2025-01-26] VITALS (36 sets, daily range): BP systolic 88–149; BP diastolic 51–81; PULSE 86–137; RESP 12–26; TEMP 34.6–39.3; O2SAT 86–98; BMI 39.7
--- NOTE | 2025-01-26 | ECG_ITS ---
Test Reason : Tachycardia Blood Pressure : */* mmHG Vent. Rate : 132 BPM Atrial Rate : * BPM P-R Int : * ms QRS Dur : 88 ms QT Int : 262 ms P-R-T Axes : * 62 -24 degrees QTcB Int : 388 ms Atrial fibrillation with rapid ventricular response ST & T wave abnormality, consider inferior ischemia Abnormal ECG When compared with ECG of 14-Jan-2025 23:00, Atrial fibrillation has replaced Sinus rhythm Vent. rate has increased by [address] now depressed in Lateral leads Referred By: Machelle Sharpe Electronically Signed By: Presley Badillo
[2025-01-26] MEDS: Acetaminophen Oral Liquid 650 MG/20.3 ML SOLUTION PO ×2 (00:53→21:10)
--- NOTE | 2025-01-26 03:08 | PM.EVENT ---
Documented by User: Machelle Sharpe NP 01/26/25 03:10 Event Note Date of Service: 01/26/25 Event Note: Hypotension related to sedation, no evidence of septic shock Time Spent With Patient Time: Total time managing care of this patient today ____ minutes. Documented by User: Fernando Toledo MD 01/26/25 10:53 Event Note Date of Service: 01/26/25
[2025-01-26] MEDS: Albuterol/Iprat 2.5/0.5MG 3 ML AMPUL.NEB INHALE ×5 (04:50→19:42)
[2025-01-26 05:31] LABS: VBG HCO3 38 mmol/L (22-26); VBG O2 % Saturation 98.0 %
[2025-01-26 05:47] LABS: Hemoglobin 14.2 g/dl (14.0-18.0); NRBC Abs Auto 0.000 X10*3/uL (0.0-0.012); NRBC Pct Auto 0.0 /100WBC (0.0-0.2); SCAN SMEAR FLAG 1
[2025-01-26 05:49] LABS: Hematocrit 52.5 % (42.0-52.0); Imm Gran Abs Auto 0.42 X10*3/uL (0.00-0.03); Imm Gran Pct Auto 1.5 % (0.0-0.4); Lymphocytes Absolute Auto 1.1 X10*3/uL (1.2-4.9); Mean Corpuscular HGB Conc 27.0 g/dl (31.0-36.0); Mean Corpuscular Hemoglobin 21.7 pg (27.0-33.0); Mean Corpuscular Volume 80.4 fL (80.0-98.0); PLT CLUMP 1; Red Blood Count 6.53 X10*6/uL (4.60-5.80)
[2025-01-26 06:03] LABS: Venous Blood Gas Refer to POC result
[2025-01-26] MEDS: Artificial Tears 15 ML DROPS 1 DROP EYE-BOTH (06:05)
[2025-01-26 06:07] LABS: MANUAL DIFF FLAG SCAN; PLT ABN DIST 1; Platelet Count 211 X10*3/uL (160-400); White Blood Count 28.4 X10*3/uL (4.8-10.8)
[2025-01-26 06:17] LABS: Alanine Aminotransferase 49 U/L (0-40); Albumin Level 3.4 g/dL (3.5-5.0); Alkaline Phosphatase 96 U/L (39-117); Anion Gap 17 (12-20); Aspartate Amino Transferase 39 U/L (5-37); Blood Urea Nitrogen 68 mg/dL (9-16); Calcium 9.2 mg/dL (8.4-10.2); Carbon Dioxide 32 mmol/L (22-29); Chloride 109 mmol/L (96-108); Creatinine Clr Calc Pharmacy 145.6; Estimated Glomerular Filt Rate > 60; Magnesium 3.0 mg/dL (1.6-2.6); Potassium 3.5 mmol/L (3.3-5.1); Sodium 154 mmol/L (135-145); Total Protein 7.2 g/dL (6.5-8.0)
--- NOTE | 2025-01-26 07:14 | PC.NURSE ---
Upon initial assessment at 1999 ? Patient intubated and sedated on propofol and fentanyl infusions. Appeared dusky; SpO2 reading >92% via forehead probe (in place at beginning of shift). Finger probe applied to both hands with readings 60?70% bilaterally. METAL RECLAMATION KETTLE TENDER Annemarie notified. ABG obtained and provider aware of critical results. PEEP and FiO2 adjusted by RT per provider order. Repeat ABG obtained with improvement in values. Abdomen large, semi-firm, hypoactive bowel sounds in all quadrants. Receiving tube feeds via OGT. No bowel movement since admission; METAL RECLAMATION KETTLE TENDER notified. Lactulose PO administered x1. Meredith catheter in place with urine output as charted. At approximately 0100 ? Patient coughed up a large amount of thin brown/light tracy secretions via ETT; suctioned. METAL RECLAMATION KETTLE TENDER at bedside; tube feeds paused. No residual noted. KUB ordered and completed at bedside. Patient had large bowel movement following imaging. At approximately 0300 ? SBP 80s, MAP <65, HR 90-100s, METAL RECLAMATION KETTLE TENDER notified; Levophed started per MAR and PEEP decreased from 14 to 12 cm by RT with good effect. Levophed titrated off per JUN. See EMR/Flowsheet for further details. Report given to oncoming RN at 0700.
[2025-01-26] MEDS: Potassium Chloride Packet 20 MEQ PACKET 40 MEQ PO ×2 (07:48→09:41)
[2025-01-26] MEDS: 0.9 % Sodium Chloride Flush 3 ML SYRINGE IVFLUSH ×2 (07:49→15:36)
[2025-01-26] MEDS: Furosemide 200 MG in 0.9 % Sodium Chloride 80 ML IVCONT (07:55)
[2025-01-26] MEDS: Chlorhexidine Gluc Oral Rinse 15 ML MOUTHWASH BUCCAL ×3 (07:55→21:01)
--- NOTE | 2025-01-26 09:06 | P.CONGS_ITS ---
History of Present Illness Consult details Consult date: 01/26/25 <Paul Ramires MD - Last Filed: 01/29/25 15:58> Reason for consult: other (tracheostomy, G tube) <Jones Esparza PA-C - Last Filed: 01/26/25 10:07> Narrative: 59-year-old male with a complex medical history including O2 dependent COPD, obesity, CHF, peripheral vascular disease, substance use disorder, depression, GERD, chronic leg edema, history of DVT for possible tracheostomy, G-tube placement. Patient presented to the ED from assisted living on with dyspnea found to be in acute on chronic respiratory failure, ED evaluation suggestive of pneumonia, patient was admitted to ICU for worsening acute on chronic respiratory failure and was intubated on 01/14. Has been requiring lots of support, high-dose pressors, steroids. He has been had started on tube feeds. Remains intubated and sedated. He has a complex abdominal surgery history including, gastric bypass, colon resection with colostomy s/p reversal, incisional hernia repair. Additionally has a history of tracheostomy with closure with muscle flap in 2019 Unable to get history from patient as he is sedated currently. <Jones Esparza PA-C - Last Filed: 01/26/25 10:07> [facility] Past Medical History Medical History: Medical History Substance abuse Varicose veins of right lower extremity with inflammation Morbid (severe) obesity due to excess calories COPD (chronic obstructive pulmonary disease) Cocaine use disorder MDD (major depressive disorder) Homeless ANA (obstructive sleep apnea) Varicose veins of right lower extremity Peripheral vascular disease GERD (gastroesophageal reflux disease) History of pernicious anemia Hx of acute respiratory failure Edema Back pain Arthritis History of DVT of lower extremity Depression ANA treated with BiPAP Right-sided heart failure <Jones Esparza PA-C - Last Filed: 01/26/25 10:07> Family History Family History: Family History Father Displacement of central venous catheter (CVC) Mother Unknown family medical history <Jones Esparza PA-C - Last Filed: 01/26/25 10:07> Surgical History Surgical History: Surgical History History of incisional hernia repair Hx of esophagogastroduodenoscopy Hx of colonoscopy History of total right knee replacement S/P right knee arthroscopy Hx of tracheostomy Hx of total hip arthroplasty History of colostomy reversal History of colon resection H/O gastric bypass <Jones Esparza PA-C - Last Filed: 01/26/25 10:07> Social History Social History: Social History Household Members: Other Household Members Other:: [facility] Housing: Skilled Nursing Housing Other:: intermediate house Do you presently have visiting nurse or other home services: No Alcohol intake: former Year quit: 2024 Patient Tobacco Use Status: Current everyday Tobacco user Tobacco use type: Cigarette Cigarettes Per Day: 5 Years Smoked: 40 Smoked in Last 30 Days: Yes e-Cigarette/Vaping Use: Currently Using Patient Interested in Nicotine Replacement: No Patient Given Instructions on How to Stop Smoking: No Second Hand Smoke Exposure: No Substance Use Type: Crack/Cocaine Currently Displaying Signs/Symptoms of Drug Intoxication Withdrawal: No Advance Directives: No Advance Directives Information Provided: No Do you have a plan to hurt others: No Plan Recently lost weight without trying: No Eating poorly because of decreased appetite: No Nutrition Risks: No Nutritional Risk Poor oral hygiene: No service: No Sexual orientation: Straight/Heterosexual Cognitive needs: No Hearing needs: No Vision needs: Yes (Reading glasses) <Jones Esparza PA-C - Last Filed: 01/26/25 10:07> Meds Allergies/Adverse reactions: Allergies Allergy/AdvReac Type Severity Reaction Status Date / Time oxycodone Allergy Unknown Verified 01/14/25 22:27 <Jones Esparza PA-C - Last Filed: 01/26/25 10:07> Active Medications: Current Medications Acetaminophen (Acetaminophen Oral Liquid 650 Mg/20.3 Ml Solution) 650 mg PO Q6H PRN PRN Reason: Pain, Mild 1-3,fever,headache Last Admin: 01/26/25 00:53 Dose: 650 mg Albuterol/Ipratropium (Albuterol/Iprat 2.5/0.5mg 3 Ml Ampul.Neb) 3 ml INHALE RQ4H EARNESTINE Last Admin: 01/26/25 04:50 Dose: 3 ml Albuterol/Ipratropium (Albuterol/Iprat 2.5/0.5mg 3 Ml Ampul.Neb) 3 ml INHALE RQ4H WHILE AWAKE PRN PRN Reason: Wheezing Artificial Tears (Artificial Tears 15 Ml Drops) 1 drop EYE-BOTH Q4H PRN PRN Reason: Dry Eyes Last Admin: 01/26/25 06:05 Dose: 1 drop Baclofen (Baclofen 10 Mg Tablet) 10 mg PO DAILY [facility] Last Admin: 01/26/25 07:54 Dose: 10 mg Chlorhexidine Gluconate (Chlorhexidine Gluc Oral Rinse 15 Ml Mouthwash) 15 ml BUCCAL TID [facility] Last Admin: 01/26/25 07:55 Dose: 15 ml Enoxaparin Sodium (Enoxaparin Sodium 40 Mg/0.4 Ml Syringe) 40 mg SUBCUT Q24H [facility] Last Admin: 01/26/25 07:55 Dose: 40 mg Hydromorphone HCl (Hydromorphone Hcl 0.5 Mg/0.5 Ml Syringe) 0.5 mg IVPUSH Q2H PRN; Protocol PRN Reason: Pain, Severe (Pain Scale 7-10) Last Admin: 01/18/25 10:43 Dose: 0.5 mg Propofol (Diprivan) 1,000 mg in 100 mls @ 0 mls/hr IVCONT .Q0M [facility]; Protocol Last Admin: 01/26/25 06:10 Dose: 30 mcg/kg/min, 30.8 mls/hr Norepinephrine Bitartrate (Levophed) 8 mg in 250 mls @ 0 mls/hr IVCONT .Q0M [facility]; Protocol Last Titration: 01/26/25 06:11 Dose: 0 mcg/kg/min, 0 mls/hr Levofloxacin (Levaquin) 500 mg in 100 mls @ 100 mls/hr IV Q24H [facility] Last Admin: 01/26/25 07:54 Dose: 100 mls/hr Furosemide 200 mg/ Sodium (Chloride) 100 mls @ 2.5 mls/hr IVCONT .Q24H [facility] Last Admin: 01/26/25 07:55 Dose: 10 mg/hr, 5 mls/hr Acetaminophen (Ofirmev) 1,000 mg in 100 mls @ 400 mls/hr IV Q6H PRN PRN Reason: Fever Last Infusion: 01/24/25 11:34 Dose: Infused Fentanyl (Sublimaze/Ns) 1,000 mcg in 100 mls @ 0 mls/hr IVCONT .Q0M [facility]; Protocol Last Titration: 01/26/25 00:31 Dose: 50 mcg/hr, 5 mls/hr Dextrose (D5w) 1,000 mls @ 125 mls/hr IVCONT .Q8H [facility] Stop: 01/26/25 16:59 Pantoprazole Sodium (Pantoprazole Sodium 40 Mg/10 Ml Vial) 40 mg IVPUSH DAILY@0630 [facility] Last Admin: 01/26/25 06:10 Dose: 40 mg Polyethylene Glycol (Polyethylene Glycol 3350 17 Gm Powd.Pack) 17 gm PO DAILY PRN PRN Reason: Constipation Last Admin: 01/25/25 07:53 Dose: 17 gm Potassium Chloride (Potassium Chloride Packet 20 Meq Packet) 40 meq PO Q2H [facility] Stop: 01/26/25 10:01 Last Admin: 01/26/25 07:48 Dose: 40 meq Sodium Chloride (0.9 % Sodium Chloride Flush 3 Ml Syringe) 3 ml IVFLUSH QSHIFT [facility] Last Admin: 01/26/25 07:49 Dose: 3 ml <Jones Esparza PA-C - Last Filed: 01/26/25 10:07> Home medications: Home Medications ?Medication ?Instructions ?Recorded ?Confirmed ?Last Taken ?Type trazodone 100 mg tablet 200 mg PO BEDTIME 09/15/24 1 Unknown History meloxicam 15 mg tablet 15 mg PO BEDTIME 10/25/24 Unknown History pregabalin 75 mg capsule (Lyrica) 75 mg PO BID 5 01/15/25 Unknown History bisacodyl 10 mg rectal suppository 10 mg MT DAILY PRN Constipation 12/29/24 01/15/25 Unknown History furosemide 40 mg tablet 40 mg PO BID 12/29/24 Unknown History melatonin 5 mg capsule 5 mg PO BEDTIME sleep 01/15/25 Unknown History naloxone 4 mg/actuation nasal 4 mg intranasal Q3M PRN opiod 12/29/24 01/15/25 Unknown History spray (Narcan) prazosin 1 mg capsule 1 mg PO BEDTIME 12/29/2407/07 Unknown History tizanidine 2 mg tablet 2 mg PO BID 12/29/24 5 Unknown History acetaminophen 500 mg tablet 1,000 mg PO TID 01/15/25 1 Unknown History albuterol sulfate 90 mcg/actuation 2 puff inhalation Q 4H PRN 01/15/25 01/15/25 Unknown History aerosol inhaler (Ventolin HFA) Shortness Of Breath/Whe ezing cyanocobalamin (vitamin B-12) 1,000 mcg PO DAILY 01/1501/15/25 Unknown History 1,000 mcg tablet (Vitamin B-12) ferrous sulfate 325 mg (65 mg 325 mg PO DAILY 01/15/25 01/15/25 Unknown History iron) tablet ketoconazole 2 % shampoo 1 appl topical Q48H 01/15/25 01/15/25 Unknown History magnesium hydroxide 400 mg/5 mL 30 ml PO DAILY PRN Con stipation 01/15/25 01/15/25 Unknown History oral suspension (Milk of Magnesia) [id number] 3.5 2 drp ophthalmic (eye) QID 01/15/25 01/15/25 Unknown History mg/mL-10,000 unit/mL-0.1% eye drops sodium phosphates 19 gram-7 118 ml MT DAILY PRN Consti pation 01/15/25 01/15/25 Unknown History gram/118 mL enema (Fleet Enema) triamcinolone acetonide 0.1 % 1 appl topical BID 01/1501/15/25 Unknown History topical cream <Jones Esparza PA-C - Last Filed: 01/26/25 10:07> Physical Exam 2 Vital Signs: Vital Signs: Last Vital Signs Temp 99.7 F 01/26/25 08:00 Pulse 91 01/26/25 08:00 Resp 21 H 01/26/25 08:00 BP 97/67 01/26/25 08:00 Pulse Ox 91 L 01/26/25 08:00 O2 Del Method Mechanical Ventil ation 01/26/25 08:00 FiO2 80 01/26/25 08:19 BMI result Body Mass Index 39.7 <Jones Esparza PA-C - Last Filed: 01/26/25 10:07> Const: Other: Sedated, intubated <GHAZALA Schultz-C - Last Filed: 01/26/25 10:07> Neck: Other: Trachea midline previous tracheostomy with muscle flap scar present <Jones ELI Esparza - Last Filed: 01/26/25 10:07> GI: Inspection: Yes scar (See below) <Jones ELI Esparza Last Filed: 01/26/25 10:07> Palpation (GI): Soft to palpation <Jones ELI Esparza - Last Filed: 01/26/25 10:07> Abdomen image: 1. Chevron epigastric incision 2. See above 3. Previous colostomy <Jones ELI Esparza Valeriy Last Filed: 01/26/25 10:07> Results Labs Result diagrams: 01/29/25 05:00 01/29/25 05:00 <Jones VilmaELI Valeriy Last Filed: 01/26/25 10:07> Labs: Abnormal lab results 01/25/25 01/25/25 01/25/25 Range/Units 19:56 21:10 22:31 WBC 21.6 H (4.8-10.8) X10*3/uL RBC 6.42 H (4.60-5.80) X10*6/uL Hct 52.5 H (42.0-52.0) % MCH 22.3 L (27.0-33.0) pg MCHC 27.2 L (31.0-36.0) g/dl RDW 22.0 H (11.0-16.0) % Immature Gran % (Auto) 1.1 H (0.0-0.4) % Neut % (Auto) 86.8 H (45-73) % Lymph % (Auto) 5.0 L (20-40) % Lymph # (Auto) 1.1 L (1.2-4.9) X10*3/uL [place] # (Auto) 1.4 H (0.1-1.2) X10*3/uL Abs Immat Gran (auto) 0.24 H (0.00-0.03) X10*3/uL Absolute Neuts (auto) 18.8 H (2.0-8.3) x10*3/uL ABG pH at Pt Temp 7.25 L 7.31 L (7.35-7.45) ABG pCO2 at Pt Temp 86 H* 76 H* (32-45) mmHg ABG pO2 at Pt Temp 47 L* 64 L (83-108) mmHg ABG HCO3 39 H 38 H (22-26) mmol/L VBG pH (7.32-7.43) VBG HCO3 (22-26) mmol/L Sodium 152 H (135-145) mmol/L Chloride (96-108) mmol/L Carbon Dioxide 31 H (22-29) mmol/L BUN 63 H (9-16) mg/dL Random Glucose 124 H (60-115) mg/dL Phosphorus 4.9 H (2.7-4.5) mg/dL Magnesium 3.1 H (1.6-2.6) mg/dL AST (5-37) U/L ALT (0-40) U/L Albumin (3.5-5.0) g/dL 01/26/25 01/26/25 Range/Units 05:14 05:25 WBC 28.4 H (4.8-10.8) X10*3/uL RBC 6.53 H (4.60-5.80) X10*6/uL Hct 52.5 H (42.0-52.0) % MCH 21.7 L (27.0-33.0) pg MCHC 27.0 L (31.0-36.0) g/dl RDW 21.7 H (11.0-16.0) % Immature Gran % (Auto) 1.5 H (0.0-0.4) % Neut % (Auto) 86.3 H (45-73) % Lymph % (Auto) 3.9 L (20-40) % Lymph # (Auto) 1.1 L (1.2-4.9) X10*3/uL [place] # (Auto) 1.9 H (0.1-1.2) X10*3/uL Abs Immat Gran (auto) 0.42 H (0.00-0.03) X10*3/uL Absolute Neuts (auto) 24.5 H (2.0-8.3) x10*3/uL ABG pH at Pt Temp (7.35-7.45) ABG pCO2 at Pt Temp (32-45) mmHg ABG pO2 at Pt Temp (83-108) mmHg ABG HCO3 (22-26) mmol/L VBG pH 7.44 H (7.32-7.43) VBG HCO3 38 H (22-26) mmol/L Sodium 154 H (135-145) mmol/L Chloride 109 H (96-108) mmol/L Carbon Dioxide 32 H (22-29) mmol/L BUN 68 H (9-16) mg/dL Random Glucose 132 H (60-115) mg/dL Phosphorus (2.7-4.5) mg/dL Magnesium 3.0 H (1.6-2.6) mg/dL AST 39 H (5-37) U/L ALT 49 H (0-40) U/L Albumin 3.4 L (3.5-5.0) g/dL Short CBC 01/25/25 01/26/25 Range/Units 19:56 05:14 WBC 21.6 H 28.4 H (4.8-10.8) X10*3/uL Hgb 14.3 14.2 (14.0-18.0) g/dl Hct 52.5 H 52.5 H (42.0-52.0) % Plt Count 199 211 (160-400) X10*3/uL BMP 01/25/25 01/26/25 19:56 05:14 Sodium 152 H 154 H Potassium 4.9 D 3.5 D Chloride 108 109 H Carbon Dioxide 31 H 32 H BUN 63 H 68 H Creatinine 0.87 0.83 Calcium 9.2 9.2 Liver Function 01/25/25 01/26/25 Range/Units 19:56 05:14 Total Bilirubin 0.6 (0.0-1.0) mg/dL AST 39 H (5-37) U/L ALT 49 H (0-40) U/L Alkaline Phosphatase 96 (39-117) U/L Albumin 3.6 3.4 L (3.5-5.0) g/dL Urine 01/15/25 Range/Units 02:21 Urine Color Yellow Urine Appearance Clear Urine pH 5.0 (5.0-9.0) Ur Specific [place] 1.015 (1.005-1.025) Urine Protein Trace (Neg-Trace) mg/dL Urine Glucose (UA) Negative (Negative) mg/dL All other labs normal. <Jones Esparza PA-C - Last Filed: 01/26/25 10:07> Assessment and Plan (1) Acute respiratory failure with hypoxia and hypercapnia: Status: Acute <Jones Esparza PA-C - Last Filed: 01/26/25 10:07> 59-year-old male with multiple medical problems including COPD, obesity, he CHF, peripheral vascular disease, substance use disorder, history of DVTs, who has been here in the hospital because of acute on chronic respiratory failure He was therefore referred for tracheostomy and PEG tube placement as he has been an weanable from the ventilator Currently remains significantly vent dependent On pressors Has multiple surgical scars of the abdomen - has a history of gastric bypass, colon resection, colostomy and reversal Trachea palpable in the midline of the neck Unlikely to be able to do a PEG tube review of his previous gastric bypass and multiple surgeries Would recommend doing a CAT scan at some point to define anatomy of the stomach in relation to the abdominal wall and adjacent viscera We can do the tracheostomy before the PEG tube/?open G-tube/?open jejunostomy once stable enough for anesthesia Continue current ICU care Continue enteral nutrition via the NG tube for now Seen and examined independently <Paul Ramires MD - Last Filed: 01/29/25 15:58> 59-year-old male with a complex medical history including O2 dependent COPD, obesity, CHF, peripheral vascular disease, substance use disorder, depression, GERD, chronic leg edema, history of DVT for possible tracheostomy, G-tube placement. Patient continues to require high-dose pressor support, steroids. Remains intubated, sedated. Unable to wean due to dyssynchrony, hemodynamic changes. Additionally he has a significant complex abdominal surgery history where there is likely significant anatomy changes which would make PEG-tube placement more difficult. Would need CT of the abdomen and pelvis prior to G-tube to assess anatomy. However would likely hold off on this until the patient is more stable. Additionally does have a history of tracheostomy with muscle flap following closure. Can likely be a candidate for tracheostomy prior to G-tube once more stable. White count continues to increase, now 28.4 from 21.6. Patient had KUB this morning for new abdominal distention. Imaging showing air-filled dilated bowel loops in the lower abdomen, no definitive small bowel dilation. We will continue to follow along, when patient more stable can plan for tracheostomy 1st and then PEG tube placement <Jones Esparza PA-C - Last Filed: 01/26/25 10:07> Procedures Date of Service Date of Service: 01/26/25 <Jones Esparza PA-C - Last Filed: 01/26/25 10:07> 01/29/25 <Paul Ramires MD - Last Filed: 01/29/25 15:58>
--- NOTE | 2025-01-26 10:36 | MHC.CLN ---
F/U PT REMAINS INTUBATED AND SEDATED DISCUSSED AT ROUNDS WITH MD LABS NOTED SERUM NA REMAINS ELEVATED-[id number] RUNNING WITH MAXIMUM WATER FLUSHES TOLERATING TUBE FEEDING CONTINUE VITAL 1.2 AF AT MAX GOAL RATE 40ML/HR WITH 300 ML FREE WATER FLUSHES Q 4 HRS PROVIDES 1152KCALS (1965 TOTAL KCALS WITH SEDATION; 23KCALS/KG IBW), 72G PROTEIN (.84 G/KG IBW), 2507ML FREE WATER FROM FORMULA AND FLUSHES (29ML/KG) CONTINUE TO MONITOR TOLERANCE AND LYTES
--- NOTE | 2025-01-26 10:53 | P.PNCC_ITS ---
Subjective Subjective Date of Service: 01/26/25 Interval History: 59-year-old gentleman with underlying COPD on 2 L, obesity, congestive heart failure, PVD, cocaine abuse, ANA, chronic lower extremity edema admitted on 01/15/2025 with dyspnea and hypoxia requiring intubation and ventilatory support. Patient was noted to have bilateral pneumonia CT chest with cultures growing ESBL E coli and Debra. He continues to require high level of ventilatory support with slow improvements. No events overnight Critical Care Time (minutes): 60 Physical Exam 2 Vital Signs: Vital Signs: Last Vital Signs Temp 99.9 F 01/26/25 09:00 Pulse 89 01/26/25 09:00 Resp 12 01/26/25 09:00 BP 100/66 01/26/25 09:00 Pulse Ox 90 L 01/26/25 09:00 O2 Del Method Mechanical Ventil ation 01/26/25 09:00 FiO2 90 01/26/25 09:00 BMI result Body Mass Index 39.7 Const: General: no acute distress and other (Sedated on ventilatory support) Nutritional Appearance: obese Eyes: Sclerae: sclerae normal EOM: EOMs intact bilaterally Neck: Neck: Yes no lymphadenopathy, Yes trachea midline and Yes supple Resp: Auscultation: crackles (Bilateral) Cardio: Rate: tachycardic Rhythm: regular rhythm Heart sounds: no gallops, no murmurs and no rubs GI: Palpation (GI): Soft to palpation and Other GI palpation findings present ( Nontender) Auscultation: normal bowel sounds Extrem: General: No clubbing, No cyanosis and Yes edema (1+ bilateral) Objective Data Labs 01/26/25 05:14 01/26/25 05:14 Labs: Laboratory Results - last 24 hr 01/25/25 01/25/25 01/25/25 19:56 21:10 22:31 WBC 21.6 H RBC 6.42 H Hgb 14.3 Hct 52.5 H MCV 81.8 MCH 22.3 L MCHC 27.2 L RDW 22.0 H Plt Count 199 MPV Not Reportable Immature Gran % (Auto) 1.1 H Neut % (Auto) 86.8 H Lymph % (Auto) 5.0 L [place] % (Auto) 6.4 Eos % (Auto) 0.2 Baso % (Auto) 0.5 Lymph # (Auto) 1.1 L [place] # (Auto) 1.4 H Eos # (Auto) 0.0 Baso # (Auto) 0.1 Abs Immat Gran (auto) 0.24 H Absolute Neuts (auto) 18.8 H Absolute Nucleated RBC 0.000 Nucleated RBC % (auto) 0.0 Smear Tech's Comments VERIFIED O2 Saturation 64.0 86.0 ABG pH at Pt Temp 7.25 L 7.31 L ABG pCO2 at Pt Temp 86 H* 76 H* ABG pO2 at Pt Temp 47 L* 64 L ABG HCO3 39 H 38 H ABG Base Excess (Actual) 7.4 8.6 VBG pH VBG pCO2 VBG pO2 VBG HCO3 VBG O2 Saturation VBG Base Excess Sodium 152 H Potassium 4.9 D Chloride 108 Carbon Dioxide 31 H Anion Gap 18 BUN 63 H Creatinine 0.87 Estim Creat Clear Calc 138.9 Estimated GFR > 60 Random Glucose 124 H Calcium 9.2 Phosphorus 4.9 H Magnesium 3.1 H Total Bilirubin AST ALT Alkaline Phosphatase Total Protein Albumin 3.6 01/26/25 01/26/25 05:14 05:25 WBC 28.4 H RBC 6.53 H Hgb 14.2 Hct 52.5 H MCV 80.4 MCH 21.7 L MCHC 27.0 L RDW 21.7 H Plt Count 211 MPV Not Reportable Immature Gran % (Auto) 1.5 H Neut % (Auto) 86.3 H Lymph % (Auto) 3.9 L [place] % (Auto) 6.7 Eos % (Auto) 1.1 Baso % (Auto) 0.5 Lymph # (Auto) 1.1 L [place] # (Auto) 1.9 H Eos # (Auto) 0.3 Baso # (Auto) 0.1 Abs Immat Gran (auto) 0.42 H Absolute Neuts (auto) 24.5 H Absolute Nucleated RBC 0.000 Nucleated RBC % (auto) 0.0 Smear Tech's Comments VERIFIED O2 Saturation ABG pH at Pt Temp ABG pCO2 at Pt Temp ABG pO2 at Pt Temp ABG HCO3 ABG Base Excess (Actual) VBG pH 7.44 H VBG pCO2 55 VBG pO2 95 VBG HCO3 38 H VBG O2 Saturation 98.0 VBG Base Excess 11.7 Sodium 154 H Potassium 3.5 D Chloride 109 H Carbon Dioxide 32 H Anion Gap 17 BUN 68 H Creatinine 0.83 Estim Creat Clear Calc 145.6 Estimated GFR > 60 Random Glucose 132 H Calcium 9.2 Phosphorus 3.5 Magnesium 3.0 H Total Bilirubin 0.6 AST 39 H ALT 49 H Alkaline Phosphatase 96 Total Protein 7.2 Albumin 3.4 L Microbiology Microbiology Results: Microbiology 01/21/25 09:25 Sputum - Suctioned Gram Stain - Final 01/21/25 09:25 Sputum - Suctioned Sputum Culture - Final Escherichia coli Debra tropicalis 01/14/25 23:23 Blood - Venous Blood Culture - Final No growth after 5 days. 01/14/25 22:53 Blood - Venous Blood Culture - Final No growth after 5 days. 01/15/25 03:30 Sputum - Suctioned Gram Stain - Final 01/15/25 03:30 Sputum - Suctioned Sputum Culture - Final Progress Note: A&P Assessment and plan (1) Cocaine use disorder: Status: Acute (2) CHF (congestive heart failure), NYHA class III: Status: Acute (3) Morbid (severe) obesity due to excess calories: Status: Acute (4) COPD with hypoxia: Status: Chronic (5) E. coli pneumonia: Status: Acute (6) Acute and chronic respiratory failure: Status: Acute Plan Assessment: 69-year-old gentleman with underlying COPD on 2 L, obesity, congestive heart failure hospitalized on 01/15/2025 with acute hypoxic respiratory failure secondary to bilateral Hester pneumonia, now still with high requirements for ventilatory support Plan: Neuro: No acute issues. Cardiac: Acute on chronic congestive heart failure improving with diuresis. Pulmonary: Acute hypoxic respiratory failure secondary to E coli pneumonia requiring ventilatory support with high FiO2 and PEEP requirements. Will likely require tracheostomy/gastrostomy. Surgery evaluation is pending. Renal: Hypernatremia, on D5W. Non oliguric. Continue to monitor renal indices and urine output. Endo: No acute issues. GI: No acute issues. ID: [id number] E coli pneumonia, continue Levaquin. Heme/Onc: No acute issues. Psych: No acute issues. Miscellaneous: No acute issues. Prophylaxis: Lovenox, PPI Diet: Tube feeds Critical care time spent: 60 minutes Quality Stroke Does the patient have a stroke diagnosis?: No VTE Prior VTE?: No VTE Risk Level:: Medical - moderate - high VTE Device Contraindication: N/A - Device Ordered VTE Drug Contraindication: N/A - Med Ordered
[2025-01-26] MEDS: fentaNYL citrate/NS 1,000 MCG/100 ML PLAST..BAG 5 MCG IVCONT (12:30)
--- NOTE | 2025-01-26 14:22 | MHC.CM.PN ---
Pt continues on high volume ventilatory support secondary to complicated pna. Family is considering peg/trach placement - pt would need to leave [facility] and transfer to [facility] should this occur. CM to discuss plans with pt's sister so they can make informed decisions on pt's behalf. CM to follow.
[2025-01-26 20:15] LABS: VBG HCO3 38 mmol/L (22-26); VBG O2 % Saturation 90.0 %
[2025-01-26 20:16] LABS: Venous Blood Gas Refer to POC result
[2025-01-26 20:27] LABS: Albumin Level 3.3 g/dL (3.5-5.0); Anion Gap 14 (12-20); Blood Urea Nitrogen 61 mg/dL (9-16); Calcium 9.2 mg/dL (8.4-10.2); Carbon Dioxide 34 mmol/L (22-29); Chloride 108 mmol/L (96-108); Creatinine Clr Calc Pharmacy 158.0; Estimated Glomerular Filt Rate > 60; Magnesium 2.8 mg/dL (1.6-2.6); Potassium 4.1 mmol/L (3.3-5.1); Sodium 152 mmol/L (135-145)
[2025-01-26] MEDS: Amiodarone/Dextrose 150 MG/100 ML PLAST..BAG 600 MG IV (20:39)
[2025-01-26] MEDS: Potassium Phosphate/NS 15 MMOL/250 ML PLAST..BAG 62.5 MMOL IV (20:50)
--- NOTE | 2025-01-26 23:33 | HE.ICUCC ---
ICU Critical Care Nursing Note Neuro: Patient sedated on Fentanyl and Propofol, RASS -3 Cardiac: Patient went into Afib with RVR this evening, EKG completed and Metoprolol IV given as ordered, unresolved Amiodarone bolus given and gtt started, effectiveness pending. Resp: Vented, see vent assessment for full details, tracy colored secretions noted today, respiratory and MD aware, FIO2 dropped from 80% to 60% and increased to 90% by end of shift GI/: OG tube became undone from bazzi and displaced, advanced and X-ray done to confirm placement, tube feeds resumed with boluses as ordered Integumentary/Musculoskeletal:redness to lower extremeties blanchable Psychosocial (family etc.): sister at bedside this afternoon Infectious Disease: on contact precautions for ESBL
[2025-01-27] VITALS (38 sets, daily range): BP systolic 92–134; BP diastolic 42–84; PULSE 104–153; RESP 15–123; TEMP 34.6–39.3; O2SAT 88–97; BMI 39.2
[2025-01-27] MEDS: 0.9 % Sodium Chloride Flush 3 ML SYRINGE IVFLUSH ×4 (00:05→23:07)
[2025-01-27] MEDS: Albuterol/Iprat 2.5/0.5MG 3 ML AMPUL.NEB INHALE ×6 (00:08→19:33)
[2025-01-27 05:51] LABS: VBG HCO3 37 mmol/L (22-26); VBG O2 % Saturation 92.0 %
[2025-01-27] MEDS: fentaNYL citrate/NS 1,000 MCG/100 ML PLAST..BAG 5 MCG IVCONT (06:09)
[2025-01-27 06:17] LABS: Albumin Level 3.0 g/dL (3.5-5.0); Anion Gap 14 (12-20); Blood Urea Nitrogen 57 mg/dL (9-16); Calcium 8.8 mg/dL (8.4-10.2); Carbon Dioxide 33 mmol/L (22-29); Chloride 107 mmol/L (96-108); Creatinine Clr Calc Pharmacy 156.8; Estimated Glomerular Filt Rate > 60; Magnesium 2.6 mg/dL (1.6-2.6); Potassium 3.7 mmol/L (3.3-5.1); Sodium 150 mmol/L (135-145)
[2025-01-27 06:19] LABS: Hematocrit 45.2 % (42.0-52.0); Hemoglobin 12.3 g/dl (14.0-18.0); Imm Gran Abs Auto 0.30 X10*3/uL (0.00-0.03); Imm Gran Pct Auto 1.2 % (0.0-0.4); Lymphocytes Absolute Auto 1.3 X10*3/uL (1.2-4.9); MANUAL DIFF FLAG SCAN; Mean Corpuscular HGB Conc 27.2 g/dl (31.0-36.0); Mean Corpuscular Hemoglobin 21.7 pg (27.0-33.0); Mean Corpuscular Volume 79.6 fL (80.0-98.0); NRBC Abs Auto 0.000 X10*3/uL (0.0-0.012); NRBC Pct Auto 0.0 /100WBC (0.0-0.2); Platelet Count 178 X10*3/uL (160-400); Red Blood Count 5.68 X10*6/uL (4.60-5.80); SCAN SMEAR FLAG 1; White Blood Count 24.1 X10*3/uL (4.8-10.8)
--- NOTE | 2025-01-27 07:02 | PC.NURSE ---
Assumed care of patient at 2300. Patient continues to be intubated and sedated with propofol and fentanyl per MAR, see vent settings.. Pt febrile, highest at 102.8, on cooling blanket and packed with ice. Tylenol administered throughout the night. As of this writing, patient temperature at 100.2.? Patient has been in AFIB on the monitor, rate 100-150?s. Non sustaining. One time dose dig administered at 0345 with little effect. Amio gtt also running per JUN. Patient has IUC, lasix gtt per JUN.Receiving nutrition through OG tube, running at goal and tolerating. Turned and repositioned throughout the night, bed in lowest setting, plan of care ongoing.
[2025-01-27] MEDS: Albumin Human 25 % 100 ML IV (08:46)
[2025-01-27] MEDS: Potassium Chloride Packet 20 MEQ PACKET 40 MEQ PO (08:48)
[2025-01-27] MEDS: Chlorhexidine Gluc Oral Rinse 15 ML MOUTHWASH BUCCAL ×3 (09:05→20:55)
--- NOTE | 2025-01-27 10:36 | PM.CCPN ---
Subjective Subjective Date of Service: 01/27/25 Interval History: 59-year-old gentleman with underlying COPD on 2 L, obesity, congestive heart failure, PVD, cocaine abuse, ANA, chronic lower extremity edema admitted on 01/15/2025 with dyspnea and hypoxia requiring intubation and ventilatory support. Patient was noted to have bilateral pneumonia CT chest with cultures growing ESBL E coli and Debra. He continues to require high level of ventilatory support. Overnight with development of a flutter with difficult to control rapid ventricular response, now on amiodarone drip and digoxin. Critical Care Time (minutes): 60 Physical Exam Vital Signs: Vital Signs: Last Vital Signs Temp 100.4 F 01/27/25 09:00 Pulse 153 H 01/27/25 09:00 Resp 20 01/27/25 09:00 BP 111/81 01/27/25 09:00 Pulse Ox 88 L 01/27/25 09:00 O2 Del Method Mechanical Ventil ation 01/27/25 09:00 FiO2 90 01/27/25 09:00 BMI result Body Mass Index 39.2 Const: General: no acute distress and other (Sedated on ventilatory support) Nutritional Appearance: obese Eyes: Sclerae: sclerae normal Neck: Neck: Yes no lymphadenopathy, Yes trachea midline and Yes supple Resp: Auscultation: rales (Diffuse bilateral) Cardio: Rate: tachycardic Rhythm: regular rhythm Heart sounds: no gallops, no murmurs and no rubs GI: Palpation (GI): Soft to palpation and Other GI palpation findings present ( Nontender) Auscultation: normal bowel sounds Extrem: General: No clubbing, No cyanosis and Yes edema (1+ bilateral) Objective Data Labs 01/27/25 05:45 01/27/25 05:45 Labs: Laboratory Results - last 24 hr 01/26/25 01/26/25 01/27/25 20:04 20:12 05:45 WBC 24.1 H RBC 5.68 Hgb 12.3 L Hct 45.2 MCV 79.6 L MCH 21.7 L MCHC 27.2 L RDW 21.1 H Plt Count 178 MPV Not Reportable Immature Gran % (Auto) 1.2 H Neut % (Auto) 83.5 H Lymph % (Auto) 5.5 L [place] % (Auto) 5.6 Eos % (Auto) 3.9 Baso % (Auto) 0.3 Lymph # (Auto) 1.3 [place] # (Auto) 1.3 H Eos # (Auto) 1.0 H Baso # (Auto) 0.1 Abs Immat Gran (auto) 0.30 H Absolute Neuts (auto) 20.2 H Absolute Nucleated RBC 0.000 Nucleated RBC % (auto) 0.0 Smear Tech's Comments VERIFIED VBG pH 7.41 VBG pCO2 60 VBG pO2 65 VBG HCO3 38 H VBG O2 Saturation 90.0 VBG Base Excess 11.4 Sodium 152 H 150 H Potassium 4.1 3.7 Chloride 108 107 Carbon Dioxide 34 H 33 H Anion Gap 14 14 BUN 61 H 57 H Creatinine 0.76 0.76 Estim Creat Clear Calc 158.0 156.8 Estimated GFR > 60 > 60 Random Glucose 128 H 123 H Calcium 9.2 8.8 Phosphorus 2.6 L 3.1 Magnesium 2.8 H 2.6 Albumin 3.3 L 3.0 L 01/27/25 05:46 WBC RBC Hgb Hct MCV MCH MCHC RDW Plt Count MPV Immature Gran % (Auto) Neut % (Auto) Lymph % (Auto) [place] % (Auto) Eos % (Auto) Baso % (Auto) Lymph # (Auto) [place] # (Auto) Eos # (Auto) Baso # (Auto) Abs Immat Gran (auto) Absolute Neuts (auto) Absolute Nucleated RBC Nucleated RBC % (auto) Smear Tech's Comments VBG pH 7.46 H VBG pCO2 52 VBG pO2 64 VBG HCO3 37 H VBG O2 Saturation 92.0 VBG Base Excess 11.5 Sodium Potassium Chloride Carbon Dioxide Anion Gap BUN Creatinine Estim Creat Clear Calc Estimated GFR Random Glucose Calcium Phosphorus Magnesium Albumin Microbiology Microbiology Results: Microbiology 01/21/25 09:25 Sputum - Suctioned Gram Stain - Final 01/21/25 09:25 Sputum - Suctioned Sputum Culture - Final Escherichia coli Debra tropicalis 01/14/25 23:23 Blood - Venous Blood Culture - Final No growth after 5 days. 01/14/25 22:53 Blood - Venous Blood Culture - Final No growth after 5 days. 01/15/25 03:30 Sputum - Suctioned Gram Stain - Final 01/15/25 03:30 Sputum - Suctioned Sputum Culture - Final Progress Note: A&P Assessment and plan (1) Cocaine use disorder: Status: Acute (2) Morbid (severe) obesity due to excess calories: Status: Acute (3) Atrial fibrillation with RVR: Status: Acute (4) COPD with hypoxia: Status: Chronic (5) Acute respiratory failure with hypoxia and hypercapnia: Status: Acute (6) E. coli pneumonia: Status: Acute Plan Assessment: 69-year-old gentleman with underlying COPD on 2 L, obesity, congestive heart failure hospitalized on 01/15/2025 with acute hypoxic respiratory failure secondary to bilateral Hester pneumonia, now still with high requirements for ventilatory support Plan: Neuro: No acute issues. Cardiac: Acute on chronic congestive heart failure improving with diuresis. Now also with development of AFib with RVR requiring amiodarone drip and digoxin load. Pulmonary: Acute hypoxic respiratory failure secondary to E coli pneumonia requiring ventilatory support with high FiO2 and PEEP requirements. Will likely require tracheostomy/gastrostomy. Surgery service care appreciated. Renal: Hypernatremia, on D5W, improved. Non oliguric. Continue to monitor renal indices and urine output. Endo: No acute issues. GI: No acute issues. ID: [id number] E coli pneumonia, continue Levaquin. Heme/Onc: No acute issues. Psych: No acute issues. Miscellaneous: No acute issues. Prophylaxis: Lovenox, PPI Diet: Tube feeds Critical care time spent: 60 minutes Quality Stroke Does the patient have a stroke diagnosis?: No VTE Prior VTE?: No VTE Risk Level:: Medical - moderate - high VTE Device Contraindication: N/A - Device Ordered VTE Drug Contraindication: N/A - Med Ordered
--- NOTE | 2025-01-27 10:42 | MHC.CLN ---
F/U PT REMAINS INTUBATED AND SEDATED DISCUSSED AT ROUNDS WITH MD LABS NOTED SERUM NA REMAINS ELEVATED BUT IMPROVED NSG NOTED FEVER TOLERATING TUBE FEEDING CONTINUE VITAL 1.2 AF AT MAX GOAL RATE 40ML/HR WITH 300 ML FREE WATER FLUSHES Q 4 HRS PROVIDES 1152KCALS (1965 TOTAL KCALS WITH SEDATION; 23KCALS/KG IBW), 72G PROTEIN (.84 G/KG IBW), 2507ML FREE WATER FROM FORMULA AND FLUSHES (29ML/KG) CONTINUE TO MONITOR TOLERANCE AND LYTES
[2025-01-27 11:00] LABS: Venous Blood Gas Refer to POC result
[2025-01-27] MEDS: Furosemide 200 MG in 0.9 % Sodium Chloride 80 ML IVCONT (11:11)
[2025-01-27] MEDS: Albumin Human 25 % 100 ML 90 ML IV (13:35)
[2025-01-27] MEDS: fentaNYL citrate/NS 1,000 MCG/100 ML PLAST..BAG 7.5 MCG IVCONT (19:30)
[2025-01-27 19:58] LABS: Venous Blood Gas Refer to POC result
[2025-01-27 19:59] LABS: VBG HCO3 40 mmol/L (22-26); VBG O2 % Saturation 94.0 %
[2025-01-27 20:11] LABS: Albumin Level 3.6 g/dL (3.5-5.0); Anion Gap 13 (12-20); Blood Urea Nitrogen 48 mg/dL (9-16); Calcium 9.0 mg/dL (8.4-10.2); Carbon Dioxide 36 mmol/L (22-29); Chloride 108 mmol/L (96-108); Creatinine Clr Calc Pharmacy 156.8; Estimated Glomerular Filt Rate > 60; Magnesium 2.5 mg/dL (1.6-2.6); Potassium 3.9 mmol/L (3.3-5.1); Sodium 153 mmol/L (135-145)
[2025-01-27] MEDS: Acetaminophen Oral Liquid 650 MG/20.3 ML SOLUTION PO (20:57)
[2025-01-28] VITALS (43 sets, daily range): BP systolic 94–143; BP diastolic 43–70; PULSE 75–138; RESP 16–23; TEMP 34.5–38.9; O2SAT 88–94; BMI 41.4
[2025-01-28] MEDS: Albuterol/Iprat 2.5/0.5MG 3 ML AMPUL.NEB INHALE ×5 (00:06→15:25)
[2025-01-28 05:41] LABS: VBG HCO3 35 mmol/L (22-26); VBG O2 % Saturation 94.0 %
[2025-01-28 05:42] LABS: Venous Blood Gas Refer to POC result
[2025-01-28 05:53] LABS: Hematocrit 42.1 % (42.0-52.0); Hemoglobin 11.6 g/dl (14.0-18.0); Imm Gran Abs Auto 0.21 X10*3/uL (0.00-0.03); Imm Gran Pct Auto 1.0 % (0.0-0.4); Lymphocytes Absolute Auto 1.1 X10*3/uL (1.2-4.9); MANUAL DIFF FLAG SCAN; Mean Corpuscular HGB Conc 27.6 g/dl (31.0-36.0); Mean Corpuscular Hemoglobin 22.1 pg (27.0-33.0); Mean Corpuscular Volume 80.2 fL (80.0-98.0); NRBC Abs Auto 0.000 X10*3/uL (0.0-0.012); NRBC Pct Auto 0.0 /100WBC (0.0-0.2); PLT CLUMP 1; Red Blood Count 5.25 X10*6/uL (4.60-5.80); SCAN SMEAR FLAG 1
[2025-01-28 05:54] LABS: PLT ABN DIST 1; Platelet Count 175 X10*3/uL (160-400); White Blood Count 20.0 X10*3/uL (4.8-10.8)
[2025-01-28 06:09] LABS: Alanine Aminotransferase 24 U/L (0-40); Albumin Level 3.4 g/dL (3.5-5.0); Alkaline Phosphatase 78 U/L (39-117); Anion Gap 16 (12-20); Aspartate Amino Transferase 34 U/L (5-37); Blood Urea Nitrogen 56 mg/dL (9-16); Calcium 9.1 mg/dL (8.4-10.2); Carbon Dioxide 31 mmol/L (22-29); Chloride 108 mmol/L (96-108); Creatinine Clr Calc Pharmacy 157.3; Estimated Glomerular Filt Rate > 60; Magnesium 2.8 mg/dL (1.6-2.6); Potassium 4.0 mmol/L (3.3-5.1); Sodium 151 mmol/L (135-145); Total Protein 6.7 g/dL (6.5-8.0)
--- NOTE | 2025-01-28 06:30 | PC.NURSE ---
CARE ASSUMED 7PM..REMAINS INTUBATED....SEDATED WITH PROPOFOL AND FENTANYL DRIPS PER JUN...FIO2 TITRATED FROM 70% TO 80% TO MAINTAIN SAO2 >88%...AC 20/TV 490/FIO2 8O0%/PEEP 10...SAO2 89-92%..REMAINS WITH BLOODY SECRETIONS VIA ETT..PROVIDER AWARE...AMIODARONE DRIP 24 HOUR PROTOCOL COMPLETE 9PM...DRIP HELD PER PROVIDER AND STARTED AMIODARONE 400MG PO BID VIA OG-TUBE....T-MAX 102.6 DESPITE COOLING BLANKET..TYLENOL 650MG VIA OG-TUBE..TEMP DOWN TOO 100.8 ALTHOUGH TRENDING UPWARD THIS AM TO 101.3....LASIX DRIP 10 MG/HR..URINE OUTPUT DECREASED TO 25-26 CC/HR..LASIX DRIP HELD PER PROVIDER..LEVOPHED DRIP RESUMED 0.01 MCG/KG/MIN PER PROVIDER AND TITRATED TO 0.02 MCG/KG/MIN FRO MARGINAL BP'S WITH EFFECT...CASTAÑEDA WITH IMPROVED OUTPUT TO 125 TO 150 CC/HR DESPITE HOLDING LASIX DRIP..REMAINS ATRIAL FLUTTER HR 110'S-120'S..ISOLATED PVC
[2025-01-28] MEDS: Artificial Tears 15 ML DROPS 1 DROP EYE-BOTH (07:50)
--- NOTE | 2025-01-28 08:00 | PM.EVENT ---
Event Note Date of Service: 01/28/25 Event Note: I was informed by ICU staff that the family have decided to not proceed with PEG and trach I also discussed this with the healthcare proxy Procedure was therefore canceled Time Spent With Patient Time: Total time managing care of this patient today ____ minutes.
[2025-01-28] MEDS: 0.9 % Sodium Chloride Flush 3 ML SYRINGE IVFLUSH ×2 (08:59→15:41)
[2025-01-28] MEDS: Amiodarone/Dextrose 150 MG/100 ML PLAST..BAG 600 MG IV (09:27)
[2025-01-28] MEDS: Chlorhexidine Gluc Oral Rinse 15 ML MOUTHWASH BUCCAL ×3 (09:27→20:27)
[2025-01-28] MEDS: fentaNYL citrate/NS 1,000 MCG/100 ML PLAST..BAG 7.5 MCG IVCONT (09:42)
--- NOTE | 2025-01-28 10:17 | P.PNCC_ITS ---
Subjective Subjective Date of Service: 01/28/25 Interval History: 59-year-old gentleman with underlying COPD on 2 L, obesity, congestive heart failure, PVD, cocaine abuse, ANA, chronic lower extremity edema admitted on 01/15/2025 with dyspnea and hypoxia requiring intubation and ventilatory support. Patient was noted to have bilateral pneumonia CT chest with cultures growing ESBL E coli and Debra. He continues to require high level of ventilatory support. Now with difficult to control a flutter with RVR, with some improvement on amiodarone drip and digoxin. No events overnight. Critical Care Time (minutes): 60 Physical Exam 2 Vital Signs: Vital Signs: Last Vital Signs Temp 101.3 F H 01/28/25 09:00 Pulse 118 H 01/28/25 09:00 Resp 19 01/28/25 09:00 BP 109/61 01/28/25 09:00 Pulse Ox 93 01/28/25 09:00 O2 Del Method Mechanical Ventil ation 01/28/25 09:00 FiO2 80 01/28/25 09:00 BMI result Body Mass Index 41.4 Const: General: no acute distress and other (Sedated on ventilatory support) Nutritional Appearance: obese Eyes: Sclerae: sclerae normal EOM: EOMs intact bilaterally Neck: Neck: Yes no lymphadenopathy, Yes trachea midline and Yes supple Resp: Auscultation: crackles (Bilateral) Cardio: Rate: tachycardic Rhythm: regular rhythm Heart sounds: no gallops, no murmurs and no rubs GI: Palpation (GI): Soft to palpation and Other GI palpation findings present ( Nontender) Auscultation: normal bowel sounds Extrem: General: No clubbing, No cyanosis and Yes edema (1+ bilateral) Objective Data Labs 01/28/25 05:31 01/28/25 05:31 Labs: Laboratory Results - last 24 hr 01/27/25 01/27/25 01/28/25 19:50 19:56 05:31 WBC 20.0 H RBC 5.25 Hgb 11.6 L Hct 42.1 MCV 80.2 MCH 22.1 L MCHC 27.6 L RDW 21.2 H Plt Count 175 MPV Not Reportable Immature Gran % (Auto) 1.0 H Neut % (Auto) 84.3 H Lymph % (Auto) 5.5 L [place] % (Auto) 5.3 Eos % (Auto) 3.7 Baso % (Auto) 0.2 Lymph # (Auto) 1.1 L [place] # (Auto) 1.1 Eos # (Auto) 0.7 H Baso # (Auto) 0.0 Abs Immat Gran (auto) 0.21 H Absolute Neuts (auto) 16.9 H Absolute Nucleated RBC 0.000 Nucleated RBC % (auto) 0.0 Smear Tech's Comments VERIFIED VBG pH 7.43 VBG pCO2 60 VBG pO2 73 VBG HCO3 40 H VBG O2 Saturation 94.0 VBG Base Excess 13.2 Sodium 153 H 151 H Potassium 3.9 4.0 Chloride 108 108 Carbon Dioxide 36 H 31 H Anion Gap 13 16 BUN 48 H 56 H Creatinine 0.76 0.78 Estim Creat Clear Calc 156.8 157.3 Estimated GFR > 60 > 60 Random Glucose 113 128 H Calcium 9.0 9.1 Phosphorus 2.7 3.1 Magnesium 2.5 2.8 H Total Bilirubin 0.5 AST 34 ALT 24 Alkaline Phosphatase 78 Total Protein 6.7 Albumin 3.6 3.4 L 01/28/25 05:37 WBC RBC Hgb Hct MCV MCH MCHC RDW Plt Count MPV Immature Gran % (Auto) Neut % (Auto) Lymph % (Auto) [place] % (Auto) Eos % (Auto) Baso % (Auto) Lymph # (Auto) [place] # (Auto) Eos # (Auto) Baso # (Auto) Abs Immat Gran (auto) Absolute Neuts (auto) Absolute Nucleated RBC Nucleated RBC % (auto) Smear Tech's Comments VBG pH 7.48 H VBG pCO2 47 VBG pO2 68 VBG HCO3 35 H VBG O2 Saturation 94.0 VBG Base Excess 10.7 Sodium Potassium Chloride Carbon Dioxide Anion Gap BUN Creatinine Estim Creat Clear Calc Estimated GFR Random Glucose Calcium Phosphorus Magnesium Total Bilirubin AST ALT Alkaline Phosphatase Total Protein Albumin Microbiology Microbiology Results: Microbiology 01/21/25 09:25 Sputum - Suctioned Gram Stain - Final 01/21/25 09:25 Sputum - Suctioned Sputum Culture - Final Escherichia coli Debra tropicalis 01/14/25 23:23 Blood - Venous Blood Culture - Final No growth after 5 days. 01/14/25 22:53 Blood - Venous Blood Culture - Final No growth after 5 days. 01/15/25 03:30 Sputum - Suctioned Gram Stain - Final 01/15/25 03:30 Sputum - Suctioned Sputum Culture - Final Progress Note: A&P Assessment and plan (1) Failure to wean from mechanical ventilation: Status: Acute (2) Cocaine use disorder: Status: Acute (3) Atrial fibrillation with RVR: Status: Acute (4) CHF (congestive heart failure), NYHA class III: Status: Acute (5) COPD with hypoxia: Status: Chronic (6) Acute and chronic respiratory failure: Status: Acute (7) E. coli pneumonia: Status: Acute Plan Assessment: 69-year-old gentleman with underlying COPD on 2 L, obesity, congestive heart failure hospitalized on 01/15/2025 with acute hypoxic respiratory failure secondary to bilateral Hester pneumonia, now still with high requirements for ventilatory support Plan: Neuro: No acute issues. Cardiac: Acute on chronic congestive heart failure improving with diuresis. Now also with development of AFib with RVR requiring amiodarone drip and digoxin load. Pulmonary: Acute hypoxic respiratory failure secondary to E coli pneumonia requiring ventilatory support with high FiO2 and PEEP requirements. Will likely require tracheostomy/gastrostomy. Surgery service care appreciated. Renal: Hypernatremia, improved. Non oliguric. Continue to monitor renal indices and urine output. Endo: No acute issues. GI: No acute issues. ID: [id number] E coli pneumonia, continue Levaquin. Heme/Onc: No acute issues. Psych: No acute issues. Miscellaneous: No acute issues. Prophylaxis: Lovenox, PPI Diet: Tube feeds Critical care time spent: 60 minutes Quality Stroke Does the patient have a stroke diagnosis?: No VTE Prior VTE?: No VTE Risk Level:: Medical - moderate - high VTE Device Contraindication: N/A - Device Ordered VTE Drug Contraindication: N/A - Med Ordered
--- NOTE | 2025-01-28 12:05 | P.PNCC_ITS ---
Subjective Subjective Date of Service: 01/29/25 Interval History: 59-year-old gentleman with underlying COPD on 2 L, obesity, congestive heart failure, PVD, cocaine abuse, ANA, chronic lower extremity edema admitted on 01/15/2025 with dyspnea and hypoxia requiring intubation and ventilatory support. Patient was noted to have bilateral pneumonia CT chest with cultures growing ESBL E coli and Debra. He continues to require high level of ventilatory support. Now with difficult to control a flutter with RVR, controlled on amiodarone drip and digoxin. No events overnight. Critical Care Time (minutes): 60 Physical Exam 2 Vital Signs: Vital Signs: Last Vital Signs Temp 101.3 F H 01/28/25 11:00 Pulse 104 H 01/28/25 11:00 Resp 19 01/28/25 11:00 BP 121/64 01/28/25 11:00 Pulse Ox 90 L 01/28/25 11:00 O2 Del Method Mechanical Ventil ation 01/28/25 11:00 FiO2 80 01/28/25 11:00 BMI result Body Mass Index 41.4 Const: General: no acute distress and other (Sedated on ventilatory support) Nutritional Appearance: obese Eyes: Sclerae: sclerae normal EOM: EOMs intact bilaterally Neck: Neck: Yes no lymphadenopathy, Yes trachea midline and Yes supple Resp: Effort & Inspection: normal respiratory effort and no respiratory distress Auscultation: clear to auscultation bilaterally Cardio: Rate: regular rate Rhythm: abnormal rhythm irregularly irregular Heart sounds: no gallops, no murmurs and no rubs GI: Palpation (GI): Soft to palpation and Other GI palpation findings present ( Nontender) Auscultation: normal bowel sounds Extrem: General: No clubbing, No cyanosis and Yes edema (1+ bilateral) Objective Data Labs 01/29/25 05:00 01/29/25 05:00 Labs: Laboratory Results - last 24 hr 01/27/25 01/27/25 01/28/25 19:50 19:56 05:31 WBC 20.0 H RBC 5.25 Hgb 11.6 L Hct 42.1 MCV 80.2 MCH 22.1 L MCHC 27.6 L RDW 21.2 H Plt Count 175 MPV Not Reportable Immature Gran % (Auto) 1.0 H Neut % (Auto) 84.3 H Lymph % (Auto) 5.5 L [place] % (Auto) 5.3 Eos % (Auto) 3.7 Baso % (Auto) 0.2 Lymph # (Auto) 1.1 L [place] # (Auto) 1.1 Eos # (Auto) 0.7 H Baso # (Auto) 0.0 Abs Immat Gran (auto) 0.21 H Absolute Neuts (auto) 16.9 H Absolute Nucleated RBC 0.000 Nucleated RBC % (auto) 0.0 Smear Tech's Comments VERIFIED VBG pH 7.43 VBG pCO2 60 VBG pO2 73 VBG HCO3 40 H VBG O2 Saturation 94.0 VBG Base Excess 13.2 Sodium 153 H 151 H Potassium 3.9 4.0 Chloride 108 108 Carbon Dioxide 36 H 31 H Anion Gap 13 16 BUN 48 H 56 H Creatinine 0.76 0.78 Estim Creat Clear Calc 156.8 157.3 Estimated GFR > 60 > 60 Random Glucose 113 128 H Calcium 9.0 9.1 Phosphorus 2.7 3.1 Magnesium 2.5 2.8 H Total Bilirubin 0.5 AST 34 ALT 24 Alkaline Phosphatase 78 Total Protein 6.7 Albumin 3.6 3.4 L 01/28/25 05:37 WBC RBC Hgb Hct MCV MCH MCHC RDW Plt Count MPV Immature Gran % (Auto) Neut % (Auto) Lymph % (Auto) [place] % (Auto) Eos % (Auto) Baso % (Auto) Lymph # (Auto) [place] # (Auto) Eos # (Auto) Baso # (Auto) Abs Immat Gran (auto) Absolute Neuts (auto) Absolute Nucleated RBC Nucleated RBC % (auto) Smear Tech's Comments VBG pH 7.48 H VBG pCO2 47 VBG pO2 68 VBG HCO3 35 H VBG O2 Saturation 94.0 VBG Base Excess 10.7 Sodium Potassium Chloride Carbon Dioxide Anion Gap BUN Creatinine Estim Creat Clear Calc Estimated GFR Random Glucose Calcium Phosphorus Magnesium Total Bilirubin AST ALT Alkaline Phosphatase Total Protein Albumin Microbiology Microbiology Results: Microbiology 01/21/25 09:25 Sputum - Suctioned Gram Stain - Final 01/21/25 09:25 Sputum - Suctioned Sputum Culture - Final Escherichia coli Debra tropicalis 01/14/25 23:23 Blood - Venous Blood Culture - Final No growth after 5 days. 01/14/25 22:53 Blood - Venous Blood Culture - Final No growth after 5 days. 01/15/25 03:30 Sputum - Suctioned Gram Stain - Final 01/15/25 03:30 Sputum - Suctioned Sputum Culture - Final Progress Note: A&P Assessment and plan (1) Cocaine use disorder: Status: Acute (2) CHF (congestive heart failure), NYHA class III: Status: Acute (3) Atrial fibrillation with RVR: Status: Acute (4) Morbid (severe) obesity due to excess calories: Status: Acute (5) COPD with hypoxia: Status: Chronic (6) E. coli pneumonia: Status: Acute (7) Failure to wean from mechanical ventilation: Status: Acute Plan Assessment: 69-year-old gentleman with underlying COPD on 2 L, obesity, congestive heart failure hospitalized on 01/15/2025 with acute hypoxic respiratory failure secondary to bilateral Hester pneumonia, now still with high requirements for ventilatory support Plan: Neuro: No acute issues. Cardiac: Acute on chronic congestive heart failure improving with diuresis. Aflutter with RVR controlled on amiodarone drip and digoxin load. Pulmonary: Acute hypoxic respiratory failure secondary to E coli pneumonia requiring ventilatory support with high FiO2 and PEEP requirements. Will likely require tracheostomy/gastrostomy. Surgery service care appreciated. At this time FiO2 requirements remain too high for safe tracheostomy placement. Renal: Hypernatremia, improved. Non oliguric. Continue to monitor renal indices and urine output. Endo: No acute issues. GI: No acute issues. ID: ESBL E coli pneumonia, continue Levaquin. Heme/Onc: No acute issues. Psych: No acute issues. Miscellaneous: No acute issues. Prophylaxis: Lovenox, PPI Diet: Tube feeds Critical care time spent: 60 minutes Quality Stroke Does the patient have a stroke diagnosis?: No VTE Prior VTE?: No VTE Risk Level:: Medical - moderate - high VTE Device Contraindication: N/A - Device Ordered VTE Drug Contraindication: N/A - Med Ordered
--- NOTE | 2025-01-28 15:32 | PC.NURSE ---
Hospital course uncomplicated today. Patient still has persistent large amounts of bloody inline secretions (MD torres) and requiring high ventilator assistance and sedation for vent synchrony. Meredith removed and replaced with male purewick, due to void at 17:30. Patient rectal tube irrigated to assess patency with positive effect, small amount of pasty brown stool seen in tube after irrigation.
--- NOTE | 2025-01-28 15:50 | MHC.CM.PN ---
Pt remains in ICU: family has opted not to pursue peg/trach placement at this time. Pt had been at [facility] prior to hospitalization. Facility following for possible return. Family still considering goals of care. CM to follow. Clinical updates sent to SNF
[2025-01-28 19:57] LABS: Anion Gap 16 (12-20); Blood Urea Nitrogen 46 mg/dL (9-16); Calcium 9.3 mg/dL (8.4-10.2); Carbon Dioxide 35 mmol/L (22-29); Chloride 108 mmol/L (96-108); Creatinine Clr Calc Pharmacy 197.9; Estimated Glomerular Filt Rate > 60; Magnesium 2.8 mg/dL (1.6-2.6); Potassium 3.6 mmol/L (3.3-5.1); Sodium 155 mmol/L (135-145)
[2025-01-28] MEDS: Sodium,Potassium Phosphates POWD.PACK 2 PACKET PO (20:27)
[2025-01-28] MEDS: KCl 20 mEq in 5 % Dextrose 20 MEQ/1,000 ML IV.SOLN 125 MEQ IVCONT (20:27)
[2025-01-29] VITALS (37 sets, daily range): BP systolic 94–130; BP diastolic 45–83; PULSE 76–116; RESP 16–23; TEMP 34.3–38.2; O2SAT 86–95; BMI 40.5
[2025-01-29] MEDS: fentaNYL citrate/NS 1,000 MCG/100 ML PLAST..BAG 7.5 MCG IVCONT ×2 (00:06→13:19)
[2025-01-29] MEDS: 0.9 % Sodium Chloride Flush 3 ML SYRINGE IVFLUSH ×4 (00:25→21:49)
[2025-01-29] MEDS: Artificial Tears 15 ML DROPS 1 DROP EYE-BOTH (03:19)
--- NOTE | 2025-01-29 05:07 | PC.NURSE ---
CARE ASSUMED 7PM...REMAINS INTUBATED/VCV VENT SUPPORT...SEDATED WITH PROPOFOL/FENTANYL DRIPS PER JUN..REMAINS ATRIAL FLUTTER...AMIODARONE DRIP 0.5 MG/MIN WITH HR 80'S-90'S..PER PROVIDER TO REVIEW WITH PRODUCTION LEAD WHEN CURRENT BAG OF AMIODARONE COMPLETE..AFEBRILE...COOLING BLANKET REMAINS IN PLCE BUT ON STANDBY MODE.....VITAL TUBE FEED 40 CC/HR AND H20 300ML Q4H....HS LABS REVIEWED BY PROVIDER..NEUTRA-PHOS 2 PACKETS VIA OG-TUBE...D5W 1000/KCL 20MEQ INFUSED OVER 8 HOURS...BLADDER SCANNED 7PM FOR 1000ML..STRAIGHT CATH'D PER PROVIDER FOR 1000ML... 23:30 SCANNED FOR 607ML AND STRAIGHT CATH'D FOR 700ML...05:10 BLADDER SCANNED 455ML...PROVIDER UPDATED...PER PROVIDER TO RE-SCAN BLADDER AT 8AM TO ASSESS NEED FOR RE-INSERTION OF CASTAÑEDA CATHETER
[2025-01-29 05:10] LABS: VBG HCO3 38 mmol/L (22-26); VBG O2 % Saturation 98.0 %
[2025-01-29 05:13] LABS: Venous Blood Gas Refer to POC result
[2025-01-29 05:29] LABS: MANUAL DIFF FLAG NO
[2025-01-29 05:31] LABS: Hematocrit 41.2 % (42.0-52.0); Hemoglobin 11.1 g/dl (14.0-18.0); Imm Gran Abs Auto 0.12 X10*3/uL (0.00-0.03); Imm Gran Pct Auto 0.8 % (0.0-0.4); Lymphocytes Absolute Auto 1.0 X10*3/uL (1.2-4.9); Mean Corpuscular HGB Conc 26.9 g/dl (31.0-36.0); Mean Corpuscular Hemoglobin 21.9 pg (27.0-33.0); Mean Corpuscular Volume 81.1 fL (80.0-98.0); NRBC Abs Auto 0.000 X10*3/uL (0.0-0.012); NRBC Pct Auto 0.0 /100WBC (0.0-0.2); Platelet Count 135 X10*3/uL (160-400); Red Blood Count 5.08 X10*6/uL (4.60-5.80); White Blood Count 14.6 X10*3/uL (4.8-10.8)
[2025-01-29 05:42] LABS: Albumin Level 3.1 g/dL (3.5-5.0); Anion Gap 14 (12-20); Blood Urea Nitrogen 46 mg/dL (9-16); Calcium 8.8 mg/dL (8.4-10.2); Carbon Dioxide 33 mmol/L (22-29); Chloride 107 mmol/L (96-108); Creatinine Clr Calc Pharmacy 189.6; Estimated Glomerular Filt Rate > 60; Magnesium 2.8 mg/dL (1.6-2.6); Potassium 3.5 mmol/L (3.3-5.1); Sodium 150 mmol/L (135-145)
[2025-01-29] MEDS: Potassium Chloride Packet 20 MEQ PACKET 40 MEQ PO (07:29)
[2025-01-29] MEDS: Chlorhexidine Gluc Oral Rinse 15 ML MOUTHWASH BUCCAL ×3 (07:57→20:14)
--- NOTE | 2025-01-29 09:47 | MHC.CLN ---
F/U PT REMAINS INTUBATED AND SEDATED LABS NOTED SERUM NA REMAINS ELEVATED BUT IMPROVED TOLERATING TUBE FEEDING CONTINUE VITAL 1.2 AF AT MAX GOAL RATE 40ML/HR WITH 300 ML FREE WATER FLUSHES Q 4 HRS PROVIDES 1152KCALS (1965 TOTAL KCALS WITH SEDATION; 23KCALS/KG IBW), 72G PROTEIN (.84 G/KG IBW), 2507ML FREE WATER FROM FORMULA AND FLUSHES (29ML/KG) CONTINUE TO MONITOR TOLERANCE AND LYTES RD CAN BE REACHED VIA TIGER CONNECT DURING OFF HOURS IF NEEDED
--- NOTE | 2025-01-29 15:48 | MHC.CM.PN ---
PT REMAINS ON VENTILATORY SUPPORT IN ICU. CM WILL CONTINUE TO FOLLOW FOR PLAN.
--- NOTE | 2025-01-29 15:54 | PM.EVENT ---
Event Note Date of Service: 01/29/25 Event Note: Patient remains vent dependent Still requiring very high O2 supplement Currently off pressors If he is medically stable, plan to do trach placement next week If G-tube needed, we will need to do this as a jejunostomy tube because of his previous gastric bypass with no access to the stomach from the abdominal wall for a PEG tube placement I have briefly discuss this with his sister Ira who is the healthcare proxy She understands with the patient may not be ready for anesthesia and surgical intervention at this time and she wanted to hold off on any of the above for now We will re-evaluate next week Time Spent With Patient Time: Total time managing care of this patient today ____ minutes.
--- NOTE | 2025-01-29 18:16 | PC.NURSE ---
Assumed care at 0700. Upon initial assessment, pt intubated and on propofol, fentanyl, and amio drips. At 0800, pt bladder scanned for 717mL. Pt had incontinent of urine before andrade catheter could be inserted. Male purewick device applied. Pt able to use male purewick effectively. Vent circuit soiled; replaced by RT. HCP updated on phone. At approx 1415 after repositioning, pt?s o2 sat noted to be in 60-50s, HR 130s. RT and MD called to bedside. Pt bag lavaged to good effect. MD updated family at bedside. Pt repositioned q2hr as tolerated. Fall & safety precautions in place. See MAR and assessments for further details.
[2025-01-29 20:48] LABS: Albumin Level 3.1 g/dL (3.5-5.0); Anion Gap 14 (12-20); Blood Urea Nitrogen 55 mg/dL (9-16); Calcium 8.5 mg/dL (8.4-10.2); Carbon Dioxide 32 mmol/L (22-29); Chloride 106 mmol/L (96-108); Creatinine Clr Calc Pharmacy 151.7; Estimated Glomerular Filt Rate > 60; Magnesium 2.8 mg/dL (1.6-2.6); Potassium 4.4 mmol/L (3.3-5.1); Sodium 148 mmol/L (135-145)
[2025-01-29] MEDS: Albumin Human 25 % 100 ML IV (21:45)
[2025-01-29] MEDS: Albuterol/Iprat 2.5/0.5MG 3 ML AMPUL.NEB INHALE (22:24)
[2025-01-30] VITALS (36 sets, daily range): BP systolic 94–147; BP diastolic 45–83; PULSE 78–148; RESP 18–22; TEMP 34.7–38.6; O2SAT 86–100; BMI 42.3
[2025-01-30] MEDS: Acetaminophen Oral Liquid 650 MG/20.3 ML SOLUTION PO (02:23)
[2025-01-30] MEDS: fentaNYL citrate/NS 1,000 MCG/100 ML PLAST..BAG 7.5 MCG IVCONT ×2 (02:39→16:18)
[2025-01-30] MEDS: Albumin Human 25 % 100 ML IV ×3 (03:20→14:57)
[2025-01-30] MEDS: Furosemide 200 MG in 0.9 % Sodium Chloride 80 ML IVCONT (04:22)
[2025-01-30 05:31] LABS: VBG HCO3 37 mmol/L (22-26); VBG O2 % Saturation 98.0 %
[2025-01-30 05:39] LABS: Venous Blood Gas Refer to POC result
[2025-01-30 06:00] LABS: Hematocrit 39.7 % (42.0-52.0); Hemoglobin 10.8 g/dl (14.0-18.0); Imm Gran Abs Auto 0.27 X10*3/uL (0.00-0.03); Imm Gran Pct Auto 1.4 % (0.0-0.4); Lymphocytes Absolute Auto 1.0 X10*3/uL (1.2-4.9); MANUAL DIFF FLAG SCAN; Mean Corpuscular HGB Conc 27.2 g/dl (31.0-36.0); Mean Corpuscular Hemoglobin 22.2 pg (27.0-33.0); Mean Corpuscular Volume 81.5 fL (80.0-98.0); NRBC Abs Auto 0.000 X10*3/uL (0.0-0.012); NRBC Pct Auto 0.0 /100WBC (0.0-0.2); PLT CLUMP 1; Red Blood Count 4.87 X10*6/uL (4.60-5.80); SCAN SMEAR FLAG 1
[2025-01-30 06:02] LABS: White Blood Count 18.7 X10*3/uL (4.8-10.8)
[2025-01-30 06:09] LABS: Albumin Level 3.5 g/dL (3.5-5.0); Anion Gap 14 (12-20); Blood Urea Nitrogen 49 mg/dL (9-16); Calcium 8.6 mg/dL (8.4-10.2); Carbon Dioxide 32 mmol/L (22-29); Chloride 106 mmol/L (96-108); Creatinine Clr Calc Pharmacy 153.4; Estimated Glomerular Filt Rate > 60; Magnesium 3.0 mg/dL (1.6-2.6); Potassium 4.2 mmol/L (3.3-5.1); Sodium 148 mmol/L (135-145)
[2025-01-30 06:20] LABS: Platelet Count 105 X10*3/uL (160-400)
--- NOTE | 2025-01-30 06:28 | HO.SKINPHOTO ---
Location: Chest Category: Rash
--- NOTE | 2025-01-30 06:30 | PC.NURSE ---
Assumed care 1900, pt remains intubated and sedated on Propofol and Fentanyl. On ACVC settings - see vent assessment. Aflutter on tele, HR 80s-110s, MAP > 65. Amiodarone PO administered and Amiodarone?gtt paused per JAVA CONSULTANT Annemarie- see JUN. Approx 0240 pt hypoxic, SpO2 78%. Lavaged for large?amounts of thick bloody?secretions.?PEEP increased to 12 per RT. Core temp 101.7 - Tylenol PO administered?per JUN. Rapid Aflutter on tele, HR 120-150s - Amiodorone gtt resumed per JAVA CONSULTANT Annemarie - see MAR. HR continues 120-150s, Digoxin 0.125 mg IVP administered with good effect. Lasix gtt ordered and administered - see JUN.? Male purewick patent draining clear yellow urine. Tolerating tube feeds. Fecal management?system in place. Rash noted to chest, see skin photo - XUAN Sharpe made aware. Repositioned Q2H.?
[2025-01-30] MEDS: Artificial Tears 15 ML DROPS 1 DROP EYE-BOTH (07:19)
[2025-01-30] MEDS: Albuterol/Iprat 2.5/0.5MG 3 ML AMPUL.NEB INHALE ×4 (07:44→20:09)
[2025-01-30] MEDS: Chlorhexidine Gluc Oral Rinse 15 ML MOUTHWASH BUCCAL ×3 (09:42→20:51)
--- NOTE | 2025-01-30 10:27 | P.PNCC_ITS ---
Subjective Subjective Date of Service: 01/30/25 Interval History: 59-year-old gentleman with underlying COPD on 2 L, obesity, congestive heart failure, PVD, cocaine abuse, ANA, chronic lower extremity edema admitted on 01/15/2025 with dyspnea and hypoxia requiring intubation and ventilatory support. Patient was noted to have bilateral pneumonia CT chest with cultures growing ESBL E coli and Debra. Further complicated by ARDS. He continues to require high level of ventilatory support. Now with difficult to control AFlutter with RVR on amiodarone drip and digoxin. Overnight with with further worsening of underlying ARDS, now essentially on maximum ventilatory support. Critical Care Time (minutes): 60 Physical Exam 2 Vital Signs: Vital Signs: Last Vital Signs Temp 101.3 F H 01/30/25 10:00 Pulse 148 H 01/30/25 10:00 Resp 20 01/30/25 10:00 BP 132/60 01/30/25 10:00 Pulse Ox 91 L 01/30/25 10:00 O2 Del Method Mechanical Ventil ation 01/30/25 10:00 O2 Flow Rate 2 01/30/25 05:00 FiO2 100 01/30/25 10:00 BMI result Body Mass Index 42.3 Const: General: no acute distress and other (Sedated on ventilatory support) Eyes: Sclerae: sclerae normal EOM: EOMs intact bilaterally Neck: Neck: Yes no lymphadenopathy, Yes trachea midline and Yes supple Resp: Auscultation: crackles (Diffuse bilateral) Cardio: Rate: tachycardic Rhythm: abnormal rhythm irregularly irregular Heart sounds: no gallops, no murmurs and no rubs GI: Palpation (GI): Soft to palpation and Other GI palpation findings present ( Nontender) Auscultation: normal bowel sounds Extrem: General: No clubbing, No cyanosis and Yes edema (1+ bilateral) Objective Data Labs 01/30/25 05:24 01/30/25 05:24 Labs: Laboratory Results - last 24 hr 01/29/25 01/30/25 01/30/25 20:12 05:24 05:27 WBC 18.7 H RBC 4.87 Hgb 10.8 L Hct 39.7 L MCV 81.5 MCH 22.2 L MCHC 27.2 L RDW 19.9 H Plt Count 105 L MPV Not Reportable Immature Gran % (Auto) 1.4 H Neut % (Auto) 85.4 H Lymph % (Auto) 5.5 L [place] % (Auto) 4.4 Eos % (Auto) 3.1 Baso % (Auto) 0.2 Lymph # (Auto) 1.0 L [place] # (Auto) 0.8 Eos # (Auto) 0.6 H Baso # (Auto) 0.0 Abs Immat Gran (auto) 0.27 H Absolute Neuts (auto) 16.0 H Absolute Nucleated RBC 0.000 Nucleated RBC % (auto) 0.0 Smear Tech's Comments VERIFIED VBG pH 7.36 VBG pCO2 65 VBG pO2 92 VBG HCO3 37 H VBG O2 Saturation 98.0 VBG Base Excess 9.6 Sodium 148 H 148 H Potassium 4.4 D 4.2 Chloride 106 106 Carbon Dioxide 32 H 32 H Anion Gap 14 14 BUN 55 H 49 H Creatinine 0.80 0.81 Estim Creat Clear Calc 151.7 153.4 Estimated GFR > 60 > 60 Random Glucose 119 H 120 H Calcium 8.5 8.6 Phosphorus 3.1 3.0 Magnesium 2.8 H 3.0 H Albumin 3.1 L 3.5 Microbiology Microbiology Results: Microbiology 01/21/25 09:25 Sputum - Suctioned Gram Stain - Final 01/21/25 09:25 Sputum - Suctioned Sputum Culture - Final Escherichia coli Debra tropicalis 01/14/25 23:23 Blood - Venous Blood Culture - Final No growth after 5 days. 01/14/25 22:53 Blood - Venous Blood Culture - Final No growth after 5 days. 01/15/25 03:30 Sputum - Suctioned Gram Stain - Final 01/15/25 03:30 Sputum - Suctioned Sputum Culture - Final Progress Note: A&P Assessment and plan (1) Cocaine use disorder: Status: Acute (2) CHF (congestive heart failure), NYHA class III: Status: Acute (3) Atrial fibrillation with RVR: Status: Acute (4) Morbid (severe) obesity due to excess calories: Status: Acute (5) COPD with hypoxia: Status: Chronic (6) Chronic respiratory failure: Status: Acute (7) E. coli pneumonia: Status: Acute (8) Failure to wean from mechanical ventilation: Status: Acute (9) ARDS (adult respiratory distress syndrome): Status: Acute Plan Assessment: 69-year-old gentleman with underlying COPD on 2 L, obesity, congestive heart failure hospitalized on 01/15/2025 with acute hypoxic respiratory failure secondary to bilateral Hester pneumonia, now still with high requirements for ventilatory support Plan: Neuro: No acute issues. Cardiac: Acute on chronic congestive heart failure, continue with diuresis. Aflutter with RVR difficult to control despite amiodarone drip and digoxin load. Pulmonary: Acute hypoxic respiratory failure secondary and ARDS to E coli pneumonia requiring ventilatory support with high FiO2 and PEEP requirements. Will likely require tracheostomy/gastrostomy. Surgery service care appreciated. At this time FiO2 requirements remain too high for safe tracheostomy placement. Overall prognosis is poor, discussions of goals of care is ongoing with the healthcare proxy. Renal: No acute issues. Continue to monitor renal indices and urine output. Endo: No acute issues. GI: No acute issues. ID: [id number] E coli pneumonia, continue Levaquin. Heme/Onc: No acute issues. Psych: No acute issues. Miscellaneous: No acute issues. Prophylaxis: Lovenox, PPI Diet: Tube feeds Critical care time spent: 60 minutes Quality Stroke Does the patient have a stroke diagnosis?: No VTE Prior VTE?: No VTE Risk Level:: Medical - moderate - high VTE Device Contraindication: N/A - Device Ordered VTE Drug Contraindication: N/A - Med Ordered
--- NOTE | 2025-01-30 13:28 | MHC.CM.PN ---
Pt remains intubated on 100% FiO2 - pt is not stable for surgical intervention (peg/trach) Goals of care discussions are ongoing with family. Pt is from [facility] - dc planning continues.
--- NOTE | 2025-01-30 19:24 | PC.NURSE ---
Patient this morning hypoxic to 81% saturation and sustained. Scant dede bloody secretion suctioned out of ETT. Repositioned to both sides to assess better position. placed on Right side and recovered to 86%. MD made aware, came to bedside and adjusted peep from 12 to 15. patient remained on Right side for longer then 2 hours due to critical status. At approx 1430 today attempted Right to Left Reposition in bed. Patient became hypoxic down to 71%. RT called, manual bagging and recruitment maneuvers performed by RN. Patient sats with bagging recovered to mid 90s. RT at bedside, reconnected ventiulator, RT adjusted vent settings increasing tidal volume from 490ml to 540ml and peep from 15 to 18. family talks with RN and Provider today and updated proxy after hypoxic event.
[2025-01-30 20:13] LABS: VBG HCO3 35 mmol/L (22-26); VBG O2 % Saturation 100.0 %
[2025-01-30 20:15] LABS: Venous Blood Gas Refer to POC result
[2025-01-30 20:24] LABS: Anion Gap 14 (12-20); Blood Urea Nitrogen 50 mg/dL (9-16); Calcium 8.9 mg/dL (8.4-10.2); Carbon Dioxide 32 mmol/L (22-29); Chloride 106 mmol/L (96-108); Creatinine Clr Calc Pharmacy 142.8; Estimated Glomerular Filt Rate > 60; Magnesium 2.9 mg/dL (1.6-2.6); Potassium 4.3 mmol/L (3.3-5.1); Sodium 148 mmol/L (135-145)
--- NOTE | 2025-01-30 20:30 | HO.SKINPHOTO ---
Location: Left upper extremity Category: Extravasation
[2025-01-30] MEDS: Hyaluronidase, Human Recomb. 15 UNIT in 0.9 % Sodium Chloride 0.9 ML SUBCUT (20:51)
[2025-01-30] MEDS: 0.9 % Sodium Chloride Flush 3 ML SYRINGE IVFLUSH (23:20)
[2025-01-31] VITALS (43 sets, daily range): BP systolic 90–146; BP diastolic 42–86; PULSE 73–146; RESP 15–22; TEMP 34.9–38.6; O2SAT 84–97; BMI 40.7
--- NOTE | 2025-01-31 03:00 | PC.NURSE ---
At approx 2030? LUE PIV site noted with swelling and slight redness consistent with extravasation of amiodarone infusion. IV removed; new access obtained in unaffected limb. Palpable distal pulse; extremity warm and well perfused. Warm compress applied and extremity elevated. XUAN Sharpe notified; hyaluronidase ordered and administered per JUN. Site outlined for monitoring.
[2025-01-31] MEDS: Artificial Tears 15 ML DROPS 1 DROP EYE-BOTH ×3 (04:00→17:38)
[2025-01-31] MEDS: Furosemide 200 MG in 0.9 % Sodium Chloride 80 ML IVCONT (04:36)
[2025-01-31] MEDS: Albuterol/Iprat 2.5/0.5MG 3 ML AMPUL.NEB INHALE ×5 (05:00→23:56)
[2025-01-31 05:32] LABS: VBG HCO3 34 mmol/L (22-26); VBG O2 % Saturation 98.0 %
[2025-01-31 05:35] LABS: MANUAL DIFF FLAG NO; Venous Blood Gas Refer to POC result
[2025-01-31] MEDS: Omeprazole/Na Bicarb Oral Susp 20 MG/10 ML UD Cup 40 MG PO (05:40)
[2025-01-31 05:41] LABS: Hematocrit 38.3 % (42.0-52.0); Hemoglobin 10.4 g/dl (14.0-18.0); Imm Gran Abs Auto 0.24 X10*3/uL (0.00-0.03); Imm Gran Pct Auto 1.3 % (0.0-0.4); Lymphocytes Absolute Auto 1.0 X10*3/uL (1.2-4.9); Mean Corpuscular HGB Conc 27.2 g/dl (31.0-36.0); Mean Corpuscular Hemoglobin 22.5 pg (27.0-33.0); Mean Corpuscular Volume 82.9 fL (80.0-98.0); NRBC Abs Auto 0.000 X10*3/uL (0.0-0.012); NRBC Pct Auto 0.0 /100WBC (0.0-0.2); Platelet Count 121 X10*3/uL (160-400); Red Blood Count 4.62 X10*6/uL (4.60-5.80); White Blood Count 17.9 X10*3/uL (4.8-10.8)
[2025-01-31 05:49] LABS: Albumin Level 3.8 g/dL (3.5-5.0); Anion Gap 13 (12-20); Blood Urea Nitrogen 54 mg/dL (9-16); Calcium 9.0 mg/dL (8.4-10.2); Carbon Dioxide 33 mmol/L (22-29); Chloride 106 mmol/L (96-108); Creatinine Clr Calc Pharmacy 156.0; Estimated Glomerular Filt Rate > 60; Magnesium 2.7 mg/dL (1.6-2.6); Potassium 4.3 mmol/L (3.3-5.1); Sodium 148 mmol/L (135-145)
[2025-01-31] MEDS: fentaNYL citrate/NS 1,000 MCG/100 ML PLAST..BAG 7.5 MCG IVCONT ×2 (05:53→18:09)
[2025-01-31] MEDS: 0.9 % Sodium Chloride Flush 3 ML SYRINGE IVFLUSH ×2 (08:57→16:08)
[2025-01-31] MEDS: Acetaminophen Oral Liquid 650 MG/20.3 ML SOLUTION PO ×2 (09:03→17:37)
[2025-01-31] MEDS: Chlorhexidine Gluc Oral Rinse 15 ML MOUTHWASH BUCCAL ×3 (09:33→21:15)
--- NOTE | 2025-01-31 09:52 | PC.NURSE ---
Addendum entered by Brady Bryant RN 01/31/25 17:53: Patient unstable with repositioning, requiring respiratory at bedside to manually bag through bath and full turns. With manual bagging patient able to tolerate full repo and full CHG bath while maintaining sats >93%. However, when on ventilator, even small movements caused severe hypoxia down to 80% O2 Original Note: HCP updated this morning stated she will be in to visit later. See MAR and med order for new antibiotic treatment details. Patient condition liable to change with any small movement, tolerates repositioning poorly with episodes of hypoxia and vent asynchrony; therefore, utilizing specialty bed airloss repositioning system instead of wedges.
--- NOTE | 2025-01-31 09:54 | P.PNCC_ITS ---
Subjective Subjective Date of Service: 01/31/25 Interval History: 59-year-old gentleman with underlying COPD on 2 L, obesity, congestive heart failure, PVD, cocaine abuse, ANA, chronic lower extremity edema admitted on 01/15/2025 with dyspnea and hypoxia requiring intubation and ventilatory support. Patient was noted to have bilateral pneumonia CT chest with cultures growing ESBL E coli and Debra. Further complicated by ARDS. He continues to require high level of ventilatory support. Now with difficult to control AFlutter with RVR on amiodarone drip and digoxin. No events overnight. Continues essentially on maximum ventilatory support. Critical Care Time (minutes): 60 Physical Exam 2 Vital Signs: Vital Signs: Last Vital Signs Temp 101.1 F H 01/31/25 09:38 Pulse 108 H 01/31/25 09:00 Resp 19 01/31/25 09:00 BP 123/50 L 01/31/25 09:00 Pulse Ox 91 L 01/31/25 09:00 O2 Del Method Mechanical Ventil ation 01/31/25 09:00 O2 Flow Rate 2 01/30/25 05:00 FiO2 100 01/31/25 09:00 BMI result Body Mass Index 40.7 Const: General: no acute distress and other (Sedated on ventilatory support) Eyes: Sclerae: sclerae normal EOM: EOMs intact bilaterally Neck: Neck: Yes no lymphadenopathy, Yes trachea midline and Yes supple Resp: Auscultation: crackles (Bilateral) Cardio: Rate: tachycardic Rhythm: regular rhythm Heart sounds: no gallops, no murmurs and no rubs GI: Palpation (GI): Soft to palpation and Other GI palpation findings present ( Nontender) Auscultation: normal bowel sounds Extrem: General: No clubbing, No cyanosis and Yes edema (1+ bilateral) Objective Data Labs 01/31/25 05:25 01/31/25 05:25 Labs: Laboratory Results - last 24 hr 01/30/25 01/30/25 01/31/25 20:01 20:09 05:25 WBC 17.9 H RBC 4.62 Hgb 10.4 L Hct 38.3 L MCV 82.9 MCH 22.5 L MCHC 27.2 L RDW 20.2 H Plt Count 121 L MPV TNP Immature Gran % (Auto) 1.3 H Neut % (Auto) 87.1 H Lymph % (Auto) 5.7 L [place] % (Auto) 3.9 Eos % (Auto) 1.7 Baso % (Auto) 0.3 Lymph # (Auto) 1.0 L [place] # (Auto) 0.7 Eos # (Auto) 0.3 Baso # (Auto) 0.1 Abs Immat Gran (auto) 0.24 H Absolute Neuts (auto) 15.6 H Absolute Nucleated RBC 0.000 Nucleated RBC % (auto) 0.0 VBG pH 7.39 VBG pCO2 58 VBG pO2 164 VBG HCO3 35 H VBG O2 Saturation 100.0 VBG Base Excess 8.7 Sodium 148 H 148 H Potassium 4.3 4.3 Chloride 106 106 Carbon Dioxide 32 H 33 H Anion Gap 14 13 BUN 50 H 54 H Creatinine 0.87 0.78 Estim Creat Clear Calc 142.8 156.0 Estimated GFR > 60 > 60 Random Glucose 124 H 124 H Calcium 8.9 9.0 Phosphorus 3.5 3.4 Magnesium 2.9 H 2.7 H Albumin 3.8 01/31/25 05:27 WBC RBC Hgb Hct MCV MCH MCHC RDW Plt Count MPV Immature Gran % (Auto) Neut % (Auto) Lymph % (Auto) [place] % (Auto) Eos % (Auto) Baso % (Auto) Lymph # (Auto) [place] # (Auto) Eos # (Auto) Baso # (Auto) Abs Immat Gran (auto) Absolute Neuts (auto) Absolute Nucleated RBC Nucleated RBC % (auto) VBG pH 7.35 VBG pCO2 62 VBG pO2 91 VBG HCO3 34 H VBG O2 Saturation 98.0 VBG Base Excess 7.0 Sodium Potassium Chloride Carbon Dioxide Anion Gap BUN Creatinine Estim Creat Clear Calc Estimated GFR Random Glucose Calcium Phosphorus Magnesium Albumin Microbiology Microbiology Results: Microbiology 01/21/25 09:25 Sputum - Suctioned Gram Stain - Final 01/21/25 09:25 Sputum - Suctioned Sputum Culture - Final Escherichia coli Debra tropicalis 01/14/25 23:23 Blood - Venous Blood Culture - Final No growth after 5 days. 01/14/25 22:53 Blood - Venous Blood Culture - Final No growth after 5 days. 01/15/25 03:30 Sputum - Suctioned Gram Stain - Final 01/15/25 03:30 Sputum - Suctioned Sputum Culture - Final Progress Note: A&P Assessment and plan (1) Cocaine use disorder: Status: Acute (2) CHF (congestive heart failure), NYHA class III: Status: Acute (3) Atrial fibrillation with RVR: Status: Acute (4) Morbid (severe) obesity due to excess calories: Status: Acute (5) E. coli pneumonia: Status: Acute (6) Chronic respiratory failure: Status: Acute (7) Failure to wean from mechanical ventilation: Status: Acute (8) ARDS (adult respiratory distress syndrome): Status: Acute (9) Acute and chronic respiratory failure with hypoxia: Status: Acute Plan Assessment: 69-year-old gentleman with underlying COPD on 2 L, obesity, congestive heart failure hospitalized on 01/15/2025 with acute hypoxic respiratory failure secondary to bilateral Hester pneumonia, now still with high requirements for ventilatory support Plan: Neuro: No acute issues. Cardiac: Acute on chronic congestive heart failure, continue with diuresis. AFlutter with RVR difficult to control despite amiodarone drip and digoxin load. Pulmonary: Acute hypoxic respiratory failure secondary and ARDS to E coli pneumonia requiring ventilatory support with high FiO2 and PEEP requirements. Will likely require tracheostomy/gastrostomy. Surgery service care appreciated. At this time FiO2 requirements remain too high for safe tracheostomy placement. Overall prognosis is poor, discussions of goals of care are ongoing with the healthcare proxy. Renal: No acute issues. Continue to monitor renal indices and urine output. Endo: No acute issues. GI: No acute issues. ID: [id number] E coli pneumonia, continue Levaquin. Empiric vancomycin added. Heme/Onc: No acute issues. Psych: No acute issues. Miscellaneous: No acute issues. Prophylaxis: Lovenox, PPI Diet: Tube feeds Critical care time spent: 60 minutes Quality Stroke Does the patient have a stroke diagnosis?: No VTE Prior VTE?: No VTE Risk Level:: Medical - moderate - high VTE Device Contraindication: N/A - Device Ordered VTE Drug Contraindication: N/A - Med Ordered
--- NOTE | 2025-01-31 10:18 | MHC.CM.PN ---
Pt remains vented on 100% FIO2: not a surgical candidate for peg/trach d/t high vent settings: overall prognosis reported to be poor by MD. Goals of care discussions are ongoing w/pt's sister/HCP and other family members. [place] [facility] [place] CM to follow for finalization of d/c planning
[2025-01-31] MEDS: vancomycin/NS 2,000 MG/500 ML PLAST..BAG 250 MG IV (10:26)
--- NOTE | 2025-01-31 11:18 | PHA.PROG ---
Admission Date/Time: January 15, 2025 02:31 Indication: EMPIRIC THERAPY Weight in k.9 kg Adjusted body weight in K.88 KG [place] body weight in K.2 KG Obesity Dosing Indication % IBW: Serum Creatinine - Last 168 Hours 01/24/25 01/25/25 01/25/25 18:05 05:09 19:56 Creatinine 0.92 0.78 0.87 01/26/25 01/26/25 01/27/25 05:14 20:04 05:45 Creatinine 0.83 0.76 0.76 01/27/25 01/28/25 01/28/25 19:50 05:31 19:35 Creatinine 0.76 0.78 0.62 01/29/25 01/29/25 01/30/25 05:00 20:12 05:24 Creatinine 0.64 0.80 0.81 01/30/25 01/31/25 20:01 05:25 Creatinine 0.87 0.78 Estimated CrCl and GFR - Last 168 Hours 01/24/25 01/25/25 01/25/25 18:05 05:09 19:56 Estim Creat Clear Calc 130.4 153.8 138.9 Estimated GFR > 60 > 60 > 60 01/26/25 01/26/25 01/27/25 05:14 20:04 05:45 Estim Creat Clear Calc 145.6 158.0 156.8 Estimated GFR > 60 > 60 > 60 01/27/25 01/28/25 01/28/25 19:50 05:31 19:35 Estim Creat Clear Calc 156.8 157.3 197.9 Estimated GFR > 60 > 60 > 60 01/29/25 01/29/25 01/30/25 05:00 20:12 05:24 Estim Creat Clear Calc 189.6 151.7 153.4 Estimated GFR > 60 > 60 > 60 01/30/25 01/31/25 20:01 05:25 Estim Creat Clear Calc 142.8 156.0 Estimated GFR > 60 > 60 Vancomycin Loading Dose: 2000 MG X1 Current Vancomycin Dosing Regimen: 1750 MG Q12H Vancomycin Monitoring using AUC goal of 400 - 600 range with trough as surrogate marker: PREDICTED AUC 563 Date and Time for next Vancomycin Level to be drawn: before 3rd dose 10/20/25 @0800 Pharmacist Comments on Vancomycin Plan: patient obese. bmi 40.7 Vancomycin dosing will take advantage of [employer] as a clinical decision support tool that uses Bayesian modeling to calculate individual patient's pharmacokinetic parameters and forecast the patient's drug concentration time course with the target goal AUC 24 range of 400 - 600 mg/L/hr.
[2025-01-31 21:36] LABS: Venous Blood Gas Refer to POC result
[2025-01-31 21:37] LABS: VBG HCO3 34 mmol/L (22-26); VBG O2 % Saturation 98.0 %
[2025-01-31 21:52] LABS: Albumin Level 3.5 g/dL (3.5-5.0); Anion Gap 15 (12-20); Blood Urea Nitrogen 62 mg/dL (9-16); Calcium 8.5 mg/dL (8.4-10.2); Carbon Dioxide 29 mmol/L (22-29); Chloride 104 mmol/L (96-108); Creatinine Clr Calc Pharmacy 103.1; Estimated Glomerular Filt Rate > 60; Magnesium 2.7 mg/dL (1.6-2.6); Potassium 4.4 mmol/L (3.3-5.1); Sodium 144 mmol/L (135-145)
[2025-01-31] MEDS: vancomycin HCL 1,000 MG, vancomycin HCL 750 MG in 0.9 % Sodium Chloride 500 ML 267.5 MG IV (22:05)
--- NOTE | 2025-01-31 23:47 | PM.EVENT ---
Documented by User: Machelle Sharpe NP 01/31/25 23:50 Event Note Date of Service: 01/31/25 Event Note: Overnight patient patient requiring maxed ventilatory support, hypoxic to low 80s. Hypotensive, no evidence of septic shock, but now requiring vasopressor support. Healthcare proxy/ sister Ira was informed of patient clinical status and poor prognosis, she does not want to transition to comfort care at this moment. Cont with DNR. Time Spent With Patient Time: Total time managing care of this patient today ____ minutes. Documented by User: Fernando Toledo MD 02/02/25 10:26 Event Note Date of Service: 02/02/25
[2025-02-01] VITALS (31 sets, daily range): BP systolic 0–133; BP diastolic 0–61; PULSE 0–114; RESP 15–23; TEMP 34.5–39.4; O2SAT 73–92; BMI 42.3
[2025-02-01] MEDS: 0.9 % Sodium Chloride Flush 3 ML SYRINGE IVFLUSH ×2 (01:04→07:22)
[2025-02-01] MEDS: Acetaminophen Oral Liquid 650 MG/20.3 ML SOLUTION PO (02:46)
[2025-02-01 05:11] LABS: VBG HCO3 29 mmol/L (22-26); VBG O2 % Saturation 95.0 %
[2025-02-01 05:17] LABS: Venous Blood Gas Refer to POC result
[2025-02-01] MEDS: Omeprazole/Na Bicarb Oral Susp 20 MG/10 ML UD Cup 40 MG PO (05:57)
[2025-02-01 06:02] LABS: Hematocrit 37.6 % (42.0-52.0); Hemoglobin 10.1 g/dl (14.0-18.0); Imm Gran Abs Auto 0.45 X10*3/uL (0.00-0.03); Imm Gran Pct Auto 2.4 % (0.0-0.4); Lymphocytes Absolute Auto 0.9 X10*3/uL (1.2-4.9); MANUAL DIFF FLAG SCAN; Mean Corpuscular HGB Conc 26.9 g/dl (31.0-36.0); Mean Corpuscular Hemoglobin 22.3 pg (27.0-33.0); Mean Corpuscular Volume 83.2 fL (80.0-98.0); NRBC Abs Auto 0.040 X10*3/uL (0.0-0.012); NRBC Pct Auto 0.2 /100WBC (0.0-0.2); PLT CLUMP 1; Red Blood Count 4.52 X10*6/uL (4.60-5.80); SCAN SMEAR FLAG 1
[2025-02-01 06:06] LABS: Albumin Level 3.4 g/dL (3.5-5.0); Anion Gap 18 (12-20); Blood Urea Nitrogen 65 mg/dL (9-16); Calcium 8.5 mg/dL (8.4-10.2); Carbon Dioxide 26 mmol/L (22-29); Chloride 103 mmol/L (96-108); Creatinine Clr Calc Pharmacy 87.5; Estimated Glomerular Filt Rate 52; Magnesium 2.8 mg/dL (1.6-2.6); Potassium 4.5 mmol/L (3.3-5.1); Sodium 142 mmol/L (135-145)
[2025-02-01 06:13] LABS: Platelet Count 150 X10*3/uL (160-400); White Blood Count 18.7 X10*3/uL (4.8-10.8)
--- NOTE | 2025-02-01 06:51 | PC.NURSE ---
Addendum entered by Libertad Randolph RN 02/01/25 07:06: NEDS case opened - referral #[id number] Original Note: Assumed care 1900 - pt intubated and sedated on Propofol and Fentanyl. On ACVC settings,?hypoxic at times SpO2 83-91%, PEEP increased per RT - see vent assessment. Aflutter on tele, HR 80-110s, continues on Amiodarone?gtt per JUN. MAP 60-65, Levophed started per JUN. Male purewick in place - Lasix gtt paused per [employer] POLLUTION INSPECTOR Annemarie d/t decreased urine output. Hygiene provided, repositioned?Q2H.?
[2025-02-01] MEDS: Albuterol/Iprat 2.5/0.5MG 3 ML AMPUL.NEB INHALE ×2 (07:53→11:38)
[2025-02-01] MEDS: Chlorhexidine Gluc Oral Rinse 15 ML MOUTHWASH BUCCAL (08:07)
[2025-02-01] MEDS: fentaNYL citrate/NS 1,000 MCG/100 ML PLAST..BAG 7.5 MCG IVCONT (08:35)
--- NOTE | 2025-02-01 08:38 | PM.CCPN ---
Subjective Subjective Date of Service: 02/01/25 Interval History: Continues to be on ventilator support No new events overnight Critical Care Time (minutes): 35 Physical Exam Vital Signs: Vital Signs: Last Vital Signs Temp 100.2 F 02/01/25 08:00 Pulse 92 02/01/25 08:34 Resp 20 02/01/25 08:00 BP 111/49 L 02/01/25 08:34 Pulse Ox 90 L 02/01/25 08:00 O2 Del Method Mechanical Ventil ation 02/01/25 08:00 O2 Flow Rate 2 01/30/25 05:00 FiO2 100 02/01/25 08:00 BMI result Body Mass Index 42.3 General: Elderly male in severe acute distress, ill appearing and tired appearing Nutritional Appearance: well nourished and overweight Eyes: appearance normal, both eyes and all related structures; Alignment and Position: alignment normal and position normal Neck: No lymphadenopathy, no thyromegaly Resp: bilateral air entry equal, occasional added sounds present Cardio: Regular rate, regular rhythm; Heart sounds: S1 normal heart sound present and S2 normal heart sound present GI: soft, nontender, no guarding, no hepatosplenomegaly : bladder normal to inspection, bladder normal to palpation, no renal angle tenderness Skin: no rashes or lesions noted and elasticity normal Neuro: Sedated, no focal deficits Objective Data Labs 02/01/25 05:04 02/01/25 05:04 Labs: Laboratory Results - last 24 hr 01/31/25 01/31/25 02/01/25 21:29 21:33 05:04 WBC 18.7 H RBC 4.52 L Hgb 10.1 L Hct 37.6 L MCV 83.2 MCH 22.3 L MCHC 26.9 L RDW 20.3 H Plt Count 150 L MPV Not Reportable Immature Gran % (Auto) 2.4 H Neut % (Auto) 85.7 H Lymph % (Auto) 4.8 L [place] % (Auto) 4.4 Eos % (Auto) 2.4 Baso % (Auto) 0.3 Lymph # (Auto) 0.9 L [place] # (Auto) 0.8 Eos # (Auto) 0.5 H Baso # (Auto) 0.1 Abs Immat Gran (auto) 0.45 H Absolute Neuts (auto) 16.0 H Absolute Nucleated RBC 0.040 H Nucleated RBC % (auto) 0.2 Smear Tech's Comments VERIFIED VBG pH 7.28 L VBG pCO2 71 VBG pO2 97 VBG HCO3 34 H VBG O2 Saturation 98.0 VBG Base Excess 5.4 Sodium 144 142 Potassium 4.4 4.5 Chloride 104 103 Carbon Dioxide 29 26 Anion Gap 15 18 BUN 62 H 65 H Creatinine 1.18 1.39 Estim Creat Clear Calc 103.1 87.5 Estimated GFR > 60 52 Random Glucose 124 H 129 H Calcium 8.5 8.5 Phosphorus 4.8 H 5.2 H Magnesium 2.7 H 2.8 H Albumin 3.5 3.4 L 02/01/25 05:06 WBC RBC Hgb Hct MCV MCH MCHC RDW Plt Count MPV Immature Gran % (Auto) Neut % (Auto) Lymph % (Auto) [place] % (Auto) Eos % (Auto) Baso % (Auto) Lymph # (Auto) [place] # (Auto) Eos # (Auto) Baso # (Auto) Abs Immat Gran (auto) Absolute Neuts (auto) Absolute Nucleated RBC Nucleated RBC % (auto) Smear Tech's Comments VBG pH 7.33 VBG pCO2 56 VBG pO2 72 VBG HCO3 29 H VBG O2 Saturation 95.0 VBG Base Excess 2.6 Sodium Potassium Chloride Carbon Dioxide Anion Gap BUN Creatinine Estim Creat Clear Calc Estimated GFR Random Glucose Calcium Phosphorus Magnesium Albumin Microbiology Microbiology Results: Microbiology 01/21/25 09:25 Sputum - Suctioned Gram Stain - Final 01/21/25 09:25 Sputum - Suctioned Sputum Culture - Final Escherichia coli Debra tropicalis 01/14/25 23:23 Blood - Venous Blood Culture - Final No growth after 5 days. 01/14/25 22:53 Blood - Venous Blood Culture - Final No growth after 5 days. 01/15/25 03:30 Sputum - Suctioned Gram Stain - Final 01/15/25 03:30 Sputum - Suctioned Sputum Culture - Final Progress Note: A&P Assessment and plan (1) Cocaine use disorder: Status: Acute (2) Toxic metabolic encephalopathy: Status: Acute (3) Acute and chronic respiratory failure: Status: Acute Plan 59-year-old male admitted to the ICU secondary to aspiration pneumonia from drug overdose, UDS positive for cocaine needing intubation and ventilator support since admission on 01/15/2025, slowly decreasing FiO2 requirements. Neuro: Acute encephalopathy possibly due to toxic metabolic encephalopathy Urine drug screen positive for cocaine Head CT did not show any acute intracranial changes On propofol for sedation, as needed fentanyl for analgesia Close neurological status monitoring in the ICU every hour Cardiac: Cardiogenic Shock: Possibly secondary to positive pressure ventilation and sedation On Levophed support, titrate Levophed to keep map above 65 mm Hg Bedside echo showing good LV systolic function, normal size RV, IVC 2.9 cm noncollapsible, continue Lasix drip at 5 mg per hour Atrial fibrillation with RVR: Currently rate controlled On amiodarone drip Respiratory: Acute hypoxemic respiratory failure due to aspiration pneumonia Currently on ventilator support On PRVC mode FiO2 100%, PEEP 18, TV 400, RR 20 and his sats are in 80s. Peak pressures and plateau pressures are under the curve Ventilator management bundle with head end elevation, aspiration precaution, chlorhexidine mouthwash, daily awakening trials, daily spontaneous breathing trials GI: Tube feeds held due to regurgitation of feeds into the ET tube. Renal: Stable renal function We will closely monitor I's and O's Avoid nephrotoxic medications Heme: Chronic anemia, closely monitor H&H, transfuse for hemoglobin less than 7 grams/deciliter Endocrine: Blood sugars under control Sliding scale insulin as needed Infectious disease: Sputum cultures positive for E coli, partially resistant to ceftriaxone on 01/21/2025 MRSA nares negative Continue levofloxacin and vancomycin Musculoskeletal: Decubitus ulcer prevention protocol Lines: Peripheral Prophylaxis: Lovenox, pantoprazole Given him being on the ventilator for so long his chances of coming out of the ventilator is very low and the prognosis uis going to be very poor. Ongoing goals of care discussion with the family Quality Stroke Does the patient have a stroke diagnosis?: No VTE Prior VTE?: No VTE Risk Level:: Medical - moderate - high VTE Device Contraindication: N/A - Device Ordered VTE Drug Contraindication: N/A - Med Ordered
--- NOTE | 2025-02-01 09:27 | HE.PHANOTE ---
RE: VANCO DOSING Trough came back as 20.7 mg/L, renal function has worsen. Another trough is scheduled for @199902/01/25, pending dose of 1500 mg q24h post trough.
--- NOTE | 2025-02-01 09:41 | MHC.CLN ---
F/U PT REMAINS INTUBATED AND SEDATED LABS NOTED SERUM NA WNL TOLERATING TUBE FEEDING CONTINUE VITAL 1.2 AF AT MAX GOAL RATE 40ML/HR WITH 240 ML FREE WATER FLUSHES Q 4 HRS PROVIDES 1152KCALS (2507 TOTAL KCALS WITH SEDATION; 29KCALS/KG IBW), 72G PROTEIN (.84 G/KG IBW), 2219ML FREE WATER FROM FORMULA AND FLUSHES (26ML/KG) CONTINUE TO MONITOR TOLERANCE AND LYTES
[2025-02-01 12:11] LABS: Glucose, Whole Blood 132 mg/dL (60-115)
[2025-02-01] MEDS: Acetylcysteine 10 % 400 MG/4 ML VIAL INHALE (13:27)
--- NOTE | 2025-02-01 13:33 | PC.RT ---
Respiratory called STAT to bedside for pt desat. Upon arrival pt was being bag valve ventilated and SATs increased to 90's. Multiple attempts were made to place pt back on mechanical ventilation however pt would desat, multiple setting changes were made. MD at bedside. Bronchoscopy done bedside and blood clots thick,k resembling ketchup were suctioned out. Pt desat during bronch to 50's. Pt bag valve ventilate back up to 90's. Post bronch, multiple vent settings changes attempted however pt did not tolerate. Pt was bag valve ventilated while ventilator was changed out. Pt is currently on ACVC+ settings and SATs are slowly improving. Medications given per JUN. Will continue to monitor.
[2025-02-01] MEDS: Tranexamic Acid 1,000 MG/10 ML VIAL 500 MG INHALE (13:40)
--- NOTE | 2025-02-01 13:48 | MHC.CM.PN ---
EMR REVIEWED AND PER MD ROUNDS, PT REMAINS ON VENTILATORY/PRESSOR SUPPORT IN ICU. GOC DISCUSSIONS CONTINUE WITH FAMILY. CM WILL CONTINUE TO FOLLOW FOR PLAN.
--- NOTE | 2025-02-01 16:31 | PC.NURSE ---
Assumed care at 0700. Upon initial assessment, pt intubated and on fentanyl, propofol, levophed, and amio drips. Pt temp 101.8; cooling blanket started. Spoke with Cathy from [facility] regarding initial family contact. Per MD, [facility] advised to wait due to possible intrafamilial conflict. Temp remained elevated at 102.6. Thigh wrap cold blankets applied. At approx 1240, pt o2 sat notes to be in low 70s. MD and RT called to bedside. Pt bag lavaged to transient good effect. MD performed bronchoscopy. Clots & bloody secretions suctioned with little positive effect. Multiple vent setting changes attempted with no improvement noted. MD updated family at bedside. Family wishes to withdraw care once clergy is able to visit. [facility] updated. Pastor Paige to visit. Per family wishes, pt terminally extubated at 1514 with RT at bedside. TOD per MD is 1516. [facility] updated at 1540, declining pt for tissue donation. Post mortem care provided. Family took possession of patient belongings.? Pt repositioned with use of isotour bed q2hr; pt otherwise too unstable for major repositioning. See MAR and assessments for further details. Fall & safety precautions in place.
--- NOTE | 2025-02-01 16:56 | W.PM.CCHP ---
Procedures Date of Service Date of Service: 02/01/25 Bronchoscopy Consent for Procedure: Emergent-no informed consent obtained Indication: pulmonary toilet Route: endotracheal tube Sedation/Analgesia: fentanyl (cotninuos drip) Monitor: EKG Findings: Trachea looked okay, very thick bloody secretions difficult to aspirate was noted in the right main and right lower lobe bronchi which was lavaged and cleared. Complications: none
--- NOTE | 2025-02-01 16:57 | P.DN_ITS ---
Discharge Sum: Prov Provider Primary care physician: Manuel Foy PA-C Consults: 01/25/25 10:57 Consult to General Surgery Routine Consulting Provider: [facility] [place] General Surgeons Reason for consultation: Please evaluate for tracheostomy and gastrostomy placement Has provider been notified: No 02/01/25 10:59 Consult to [facility] ([facility] [employer]) Stat Consulting Provider: Andry FloresPendroy Pronouncing clinician: Chay Contreras Discharge Sum: Diag Contributing Factors (1) Cocaine use disorder: (2) Toxic metabolic encephalopathy: (3) Acute and chronic respiratory failure: Discharge Sum: Summary Date and Time Date of admission: 01/15/25 02:31 Date of : 02/01/25 Time of : 15:16 Summary Details: 59-year-old gentleman with underlying COPD on 2 L, obesity, congestive heart failure, PVD, cocaine abuse, ANA, chronic lower extremity edema admitted on 01/15/2025 with dyspnea and hypoxia requiring intubation and ventilatory support. Patient was noted to have bilateral pneumonia CT chest with cultures growing ESBL E coli and Debra. Further complicated by ARDS. He continues to require high level of ventilatory support. Hospital course was complicated with difficult to control AFlutter with RVR on amiodarone drip and digoxin. He was also in cardiogenic shock needing Levophed for vasopressor support. Despite patient being on ventilator for over 17 days patient required very high ventilator settings, FiO2 of 100%, peep 20 despite which his oxygen saturation started dipping to 70s and low 80s. The graveness of the situation was explained to the patient's family, also explained them that usually after 2 weeks of lung injury lung tissues replaced by scar and it is very unlikely that patient would survive this hospitalization. The family understood the poor prognosis and is headed towards withdrawal of care and comfort care. Patient was terminally extubated at 15:14 and at 15:16. Family at bedside Additional Data Confirmation of as documented by pronouncing clinician: no pulse, no respirations, no heart sounds and pupils fixed and dilated Family: at bedside Additional persons at bedside: [employer] sales Attending physician: Fernando Toledo MD Was code activated?: No Autopsy requested?: No voucher examiner notified?: No [facility] notified?: Yes Advance directives: No Hospice patient?: Yes
== END 2025-02-01 15:16 | disposition expired | DRG 870 ==
LOC: HO.ED 01-15 00:44 → HO.EDOVER 01-15 02:37 → HO.ICU 01-15 03:15
PROVIDERS: Internal Medicine Critical Care Medicine; Nurse Practitioner Family; Physician Assistant; Registered Nurse Community Health; Admitting Provider Physician Assistant Medical; Emergency Provider Emergency Medicine; PCP Physician Assistant; Visit Provider Internal Medicine Pulmonary Disease
DX: A41.9 Sepsis, unspecified organism (principal); G92.8 Other toxic encephalopathy; I50.43 Acute on chronic combined systolic (congestive) and diastolic (congestive) heart failure; J69.0 Pneumonitis due to inhalation of food and vomit; J80 Acute respiratory distress syndrome; J44.1 Chronic obstructive pulmonary disease with (acute) exacerbation; E87.0 Hyperosmolality and hypernatremia; Z16.12 Extended spectrum beta lactamase (ESBL) resistance; Z99.11 Dependence on respirator [ventilator] status; K21.9 Gastro-esophageal reflux disease without esophagitis; F19.10 Other psychoactive substance abuse, uncomplicated; G47.33 Obstructive sleep apnea (adult) (pediatric); I95.2 Hypotension due to drugs; T42.75XA Adverse effect of unspecified antiepileptic and sedative-hypnotic drugs, initial encounter; F14.10 Cocaine abuse, uncomplicated; B96.20 Unspecified Escherichia coli [E. coli] as the cause of diseases classified elsewhere; R57.0 Cardiogenic shock; F17.210 Nicotine dependence, cigarettes, uncomplicated; Z71.6 Tobacco abuse counseling; Z20.822 Contact with and (suspected) exposure to COVID-19; Z68.39 Body mass index [BMI] 39.0-39.9, adult; Z99.81 Dependence on supplemental oxygen; Z98.84 Bariatric surgery status; Z79.899 Other long term (current) drug therapy
CPT/HCPCS: 36415; 36600; 70450; 71045; 71250; 71275; 74018; 80048; 80053; 80202; 80307; 81001; 82040; 82803; 82947; 83605; 83690; 83735; 83880; 84100; 84484; 85025; 85027; 85610; 85730; 87040; 87070; 87077; 87186; 87205; 87637; 87640; 87641; 93005; 93306; 93970; 94002; 94003; 94640; 94799; 99285; J0131; J0282; J0283; J0616; J1160; J1171; J1650; J1938; J1956; J2151; J2185; J2250; J2312; J2405; J2470; J2543; J2704; J2919; J3010; J3373; J3374; J3473; J3480; P9047; Q9957; Q9967

== ENCOUNTER → 2025-01-14 22:19 | Outpatient (BNV) | payer MEDICARE, MEDICAID, SELFPAY | PROVIDERS: Admitting Provider Physician Assistant Medical; Emergency Provider Emergency Medicine; PCP Physician Assistant; Visit Provider Internal Medicine | DX: I49.3 Ventricular premature depolarization (principal) | CPT/HCPCS: 93010 ==

== ENCOUNTER → 2025-01-14 22:30 | Outpatient (BNV) | payer MEDICARE, MEDICAID, SELFPAY | PROVIDERS: Visit Provider Radiology Diagnostic Radiology | DX: R09.02 Hypoxemia (principal) | CPT/HCPCS: 71045 ==

== ENCOUNTER → 2025-01-15 01:15 | Outpatient (BNV) | payer MEDICARE, MEDICAID, SELFPAY | PROVIDERS: Admitting Provider Physician Assistant Medical; Emergency Provider Emergency Medicine; Visit Provider General Practice | DX: R09.02 Hypoxemia (principal); R41.82 Altered mental status, unspecified; R60.0 Localized edema; J90 Pleural effusion, not elsewhere classified; I51.7 Cardiomegaly; Z46.59 Encounter for fitting and adjustment of other gastrointestinal appliance and device | CPT/HCPCS: 70450; 71045; 71250; 93970 ==

== ENCOUNTER 2025-01-15 02:31 | Outpatient (BNV) | payer MEDICARE, MEDICAID, SELFPAY | END 2025-01-26 19:20 | PROVIDERS: Admitting Provider Physician Assistant Medical; Emergency Provider Emergency Medicine; PCP Physician Assistant; Visit Provider Internal Medicine Cardiovascular Disease | DX: I48.91 Unspecified atrial fibrillation (principal) | CPT/HCPCS: 93010 ==

== ENCOUNTER 2025-01-15 02:31 | Outpatient (BNV) | payer MEDICARE, MEDICAID, SELFPAY | END 2025-01-25 21:45 | PROVIDERS: Admitting Provider Physician Assistant Medical; Emergency Provider Emergency Medicine; PCP Physician Assistant; Visit Provider Radiology Diagnostic Radiology | DX: R09.02 Hypoxemia (principal) | CPT/HCPCS: 71045 ==

== ENCOUNTER 2025-01-15 02:31 | Outpatient (BNV) | payer MEDICARE, MEDICAID, SELFPAY | END 2025-01-26 02:00 | PROVIDERS: Admitting Provider Physician Assistant Medical; Emergency Provider Emergency Medicine; PCP Physician Assistant; Visit Provider Radiology Diagnostic Radiology | DX: R09.02 Hypoxemia (principal); K59.00 Constipation, unspecified | CPT/HCPCS: 71045; 74018 ==

== ENCOUNTER 2025-01-15 02:31 | Outpatient (BNV) | payer MEDICARE, MEDICAID, SELFPAY | END 2025-01-21 10:55 | PROVIDERS: Admitting Provider Physician Assistant Medical; Emergency Provider Emergency Medicine; PCP Physician Assistant; Visit Provider Radiology Diagnostic Radiology | DX: J18.9 Pneumonia, unspecified organism (principal); J98.11 Atelectasis | CPT/HCPCS: 71275 ==

== ENCOUNTER 2025-01-15 02:31 | Outpatient (BNV) | payer MEDICARE, MEDICAID, SELFPAY | END 2025-01-16 16:34 | PROVIDERS: Admitting Provider Physician Assistant Medical; Emergency Provider Emergency Medicine; PCP Physician Assistant; Visit Provider Radiology Diagnostic Radiology | DX: R06.00 Dyspnea, unspecified (principal) | CPT/HCPCS: 71045 ==

== ENCOUNTER 2025-01-15 02:31 | Outpatient (BNV) | payer MEDICARE, MEDICAID, SELFPAY | END 2025-01-15 07:00 | PROVIDERS: Admitting Provider Physician Assistant Medical; Emergency Provider Emergency Medicine; PCP Physician Assistant; Visit Provider Internal Medicine | DX: I42.2 Other hypertrophic cardiomyopathy (principal); I35.8 Other nonrheumatic aortic valve disorders; I34.81 Nonrheumatic mitral (valve) annulus calcification | CPT/HCPCS: 93306 ==

== ENCOUNTER 2025-01-15 02:31 | Outpatient (BNV) | payer MEDICARE, MEDICAID, SELFPAY | END 2025-01-28 10:11 | PROVIDERS: Admitting Provider Physician Assistant Medical; Emergency Provider Emergency Medicine; PCP Physician Assistant; Visit Provider Radiology Diagnostic Radiology | DX: R91.8 Other nonspecific abnormal finding of lung field (principal) | CPT/HCPCS: 71045 ==

== ENCOUNTER 2025-01-15 02:31 | Outpatient (BNV) | payer MEDICARE, MEDICAID, SELFPAY | END 2025-01-19 15:48 | PROVIDERS: Admitting Provider Physician Assistant Medical; Emergency Provider Emergency Medicine; PCP Physician Assistant; Visit Provider Radiology Diagnostic Radiology | DX: J84.9 Interstitial pulmonary disease, unspecified (principal); Z46.59 Encounter for fitting and adjustment of other gastrointestinal appliance and device; J90 Pleural effusion, not elsewhere classified; R91.8 Other nonspecific abnormal finding of lung field | CPT/HCPCS: 71045 ==

== ENCOUNTER → 2025-01-15 02:31 | Outpatient (BNV) | payer MEDICARE, MEDICAID, SELFPAY | PROVIDERS: Admitting Provider Physician Assistant Medical; Emergency Provider Emergency Medicine; PCP Physician Assistant; Visit Provider Surgery | DX: J96.01 Acute respiratory failure with hypoxia (principal); J96.02 Acute respiratory failure with hypercapnia | CPT/HCPCS: 99222; 99499 ==

== ENCOUNTER → 2025-01-15 02:31 | Outpatient (BNV) | payer MEDICARE, MEDICAID, SELFPAY | PROVIDERS: Admitting Provider Physician Assistant Medical; Emergency Provider Emergency Medicine; Visit Provider Physician Assistant Medical | DX: J96.01 Acute respiratory failure with hypoxia (principal); J96.02 Acute respiratory failure with hypercapnia | CPT/HCPCS: 31500; 99233; 99291; 99292 ==

== ENCOUNTER → 2025-01-15 02:31 | Outpatient (BNV) | payer MEDICARE, MEDICAID, SELFPAY | PROVIDERS: Admitting Provider Physician Assistant Medical; Emergency Provider Emergency Medicine; PCP Physician Assistant; Visit Provider Internal Medicine Pulmonary Disease | DX: J44.9 Chronic obstructive pulmonary disease, unspecified (principal); I50.9 Heart failure, unspecified; F14.10 Cocaine abuse, uncomplicated; E66.01 Morbid (severe) obesity due to excess calories; J15.5 Pneumonia due to Escherichia coli; J96.20 Acute and chronic respiratory failure, unspecified whether with hypoxia or hypercapnia | CPT/HCPCS: 99291 ==